=== PATIENT | male | born 1945 | race Caucasian/White ===

== ENCOUNTER 2023-04-24 06:53 | Outpatient (OUT) | payer MEDICARE, SELFPAY ==
[2023-04-24 07:11] LABS: Estimated GFR (African America >60 (>=60); Estimated GFR (Non-African Ame >60 (>=60)
--- NOTE | 2023-04-24 08:40 | CT_ITS ---
[address] [address] Patient Name: JOSE PATEL MRN: [id number] date: 1945 Sex: M Assigned Patient Location: LAB Current Patient Location: LAB Accession/Order Number: [id number] Exam Date: 04/24/2023 08:25 Report Date: 04/24/2023 09:22 At the request of: TOAN MCADAMS Procedure: CT abdomen pelvis w con EXAM: CT abdomen pelvis w con HISTORY: Right Lower Quadrant Pain COMPARISON: None. TECHNIQUE: Axial CT images were obtained of the abdomen and pelvis with intravenous contrast. Multiplanar reconstructions were performed. ABDOMEN/PELVIS FINDINGS: Lower Chest: Emphysematous changes present in the lung bases. There is mild bibasilar atelectasis or scarring. Liver: Normal enhancement and contour. Biliary/Gallbladder: Numerous tiny gallstones are present in the gallbladder lumen. Pancreas: Unremarkable. Spleen: Unremarkable. Adrenal Glands: Unremarkable. Kidneys: Multiple small cysts in the kidneys bilaterally. Gastrointestinal/Peritoneum: No acute abnormality. The appendix is unremarkable. No free air or free fluid. Vascular: Moderate scattered atherosclerotic calcifications are present. Atherosclerotic calcifications at the origin of the right renal artery are likely contributing to moderate stenosis of the renal artery origin. The aortoiliac arteries are ectatic. Lymph Nodes: No enlarged lymph nodes by CT size criteria. Pelvic Organs: The prostate gland is enlarged. Bladder: Unremarkable. Bones: No acute osseous abnormality. Moderate multilevel degenerative changes are present in the visualized spine with a slight levoscoliosis present. Mild degenerative changes are present in the hips bilaterally. Soft tissues: Small bilateral fat-containing inguinal hernias are present. CT/CT abdomen pelvis w con IMPRESSION: 1. No acute abnormality of the abdomen and pelvis. 2. Cholelithiasis. 3. Small fat-containing bilateral inguinal hernias. 4. Prostatomegaly. 5. Moderate scattered atherosclerotic disease with ectasia of the aortoiliac vessels and a moderate stenosis at the origin of the right renal artery. 6. Emphysematous disease in the lung bases. Electronically authenticated by: QING CHAMORRO Date: 04/24/2023 09:22
== END 2023-04-24 06:54 | disposition home or self-care (01) ==
LOC: LAB 06:54
PROVIDERS: PCP Internal Medicine; Visit Provider Internal Medicine
DX: R10.31 Right lower quadrant pain (principal); K80.20 Calculus of gallbladder without cholecystitis without obstruction; K40.20 Bilateral inguinal hernia, without obstruction or gangrene, not specified as recurrent
CPT/HCPCS: 36415; 74177; 82565; Q9967

== ENCOUNTER 2023-05-04 07:08 | Outpatient (OUT) | payer MEDICARE, SELFPAY ==
[2023-05-04 07:35] LABS: Basophils Percent Auto 0.7 % (0.2-2.0); Eosinophils Absolute Auto 0.1 10^3/uL (0.0-0.7); Eosinophils Percent Auto 0.9 % (0.9-7.0); Hemoglobin 14.2 g/dL (14.0-18.0); Immature Granulocytes Abs Auto 0.02 10^3/uL (0.00-0.03); Immature Granulocytes Pct Auto 0.4 % (0.0-0.5); Lymphocytes Absolute Auto 1.3 10^3/uL (1.2-3.8); Lymphocytes Percent Auto 23.7 % (20.5-60.0); Mean Corpuscular Hemoglobin 30.2 pg (25.9-34.0); Mean Corpuscular Volume 91.5 fL (80.0-94.0); Monocytes Absolute Auto 0.5 10^3/uL (0.3-0.8); Neutrophils Absolute Auto 3.6 10^3/uL (1.4-6.5); Neutrophils Percent Auto 65.3 % (43.0-75.0); Platelet Count 170 10^3/uL (150-450); White Blood Count 5.4 10^3/uL (4.0-11.0)
[2023-05-04 09:51] LABS: Alanine Aminotransferase 46 U/L (16-63); Albumin Globulin Ratio 1.3; Albumin Level 3.6 g/dL (3.4-5.0); Alkaline Phosphatase 66 U/L (46-116); Anion Gap 12.1; Aspartate Amino Transferase 28 U/L (15-37); BUN Creatinine Ratio 18.9; Bilirubin Total 1.5 mg/dL (0.2-1.0); Calcium 9.3 mg/dL (8.5-10.1); Carbon Dioxide 25.7 mmol/L (21.0-32.0); Chloride 106 mmol/L (98-107); Estimated GFR (African America >60 (>=60); Estimated GFR (Non-African Ame >60 (>=60); Globulin 2.7 g/dL; Glucose 108 mg/dL (74-106); Potassium 3.8 mmol/L (3.5-5.1); Sodium 140 mmol/L (136-145); Thyroid Stimulating Hormone 2.649 uIU/mL (0.358-3.740); Total Protein 6.3 g/dL (6.4-8.2)
[2023-05-05 17:09] LABS: Albumin 3.9 g/dL (2.9-4.4); Alpha-1-Globulin 0.2 g/dL (0.0-0.4); Alpha-2-Globulin 0.7 g/dL (0.4-1.0); Free Kappa Lt Chains,S 14.1 mg/L (3.3-19.4); Free Lambda Lt Chains,S 13.9 mg/L (5.7-26.3); Gamma Globulin 0.5 g/dL (0.4-1.8); Immunoglobulin A, Qn, Serum 169 mg/dL (61-437); Immunoglobulin G, Qn, Serum 640 mg/dL (603-1613); Immunoglobulin M, Qn, Serum 26 mg/dL (15-143); Kappa/Lambda Ratio,S 1.01 (0.26-1.65); Protein, Total 6.1 g/dL (6.0-8.5)
== END 2023-05-04 07:09 | disposition home or self-care (01) ==
LOC: LAB 07:12
PROVIDERS: PCP Internal Medicine; Visit Provider Internal Medicine
DX: R10.31 Right lower quadrant pain (principal); R63.4 Abnormal weight loss; I10 Essential (primary) hypertension; G62.9 Polyneuropathy, unspecified
CPT/HCPCS: 36415; 80053; 82784; 83521; 84155; 84165; 84443; 85025; 86334

== ENCOUNTER 2023-05-17 22:51 | Emergency (ER) | payer MEDICARE, SELFPAY ==
[2023-05-17 23:05] VITALS: BP 145/82; PULSE 67; RESP 20; TEMP 36.5; O2SAT 98; BMI 23.9
--- NOTE | 2023-05-17 23:13 | ED_ITS ---
HPI - General Adult General Chief complaint: Weakness Stated complaint: General Weakness Time Seen by Provider: 05/17/23 23:07 Source: patient Source information: Mode of arrival: walk-in Limitations: no limitations History of Present Illness HPI narrative: 78-year-old male presents for feeling weak and hot. It began tonight. Eight days ago he tested positive for Covid but he seems to have recovered from it. Tonight as he was getting prepared for bed and he got hot. He didn't have any pain, no headache chest pain or abdominal pain. he did not become pale. Related Data Allergies Allergy/AdvReac Type Severity Reaction Status Date / Time No Known Drug Allergies Allergy Verified 05/17/23 23:12 Review of Systems ROS Narrative A ten point review of systems is negative except as noted above. PFSH PFSH Social History Smoking status: Former smoker Exam Narrative Exam Narrative: Nurses note and vital signs reviewed and patient is not hypoxic. General: The patient appears well and in no apparent distress. Patient is resting comfortably on cart. Skin: Warm, dry, no pallor noted. There is no rash noted. Head: Normocephalic, atraumatic Eye: Normal conjunctiva, no drainage Ears, Nose, Mouth, and Throat: oral mucosa is moist. Nares patent. Mouth without vesicles. Ear canals patent. Tm's without Erythema Cardiovascular: Regular Rate and Rhythm Respiratory: Patient is in no distress, no accessory muscle use, lungs are clear to auscultation, no wheezing, rales or rhonchi Back: non-tender GI: no tenderness to palpation, no masses appreciated. No rebound, guarding, or rigidity noted. Musculoskeletal: The patient has no evidence of calf tenderness, no pitting edema, symmetrical pulses noted bilaterally Neurological: A&O x4, normal speech Psychiatric: Cooperative Constitutional Vital Signs, click to edit/add: Last Vital Signs Temp 97.7 F 05/17/23 23:05 Pulse 86 05/17/23 23:51 Resp 16 05/17/23 23:51 BP 122/82 05/17/23 23:51 Pulse Ox 997 H 05/17/23 23:51 O2 Del Method Room Air 05/17/23 23:51 Course Vital Signs Vital signs: Vital Signs Temperature 97.7 F 05/17/23 23:05 Pulse Rate 67 05/17/23 23:05 Respiratory Rate 20 05/17/23 23:05 Blood Pressure 145/82 H 05/17/23 23:05 Pulse Oximetry 98 05/17/23 23:05 Oxygen Delivery Method Room Air 05/17/23 23:05 Temperature 97.7 F 05/17/23 23:05 Pulse Rate 86 05/17/23 23:51 Respiratory Rate 16 05/17/23 23:51 Blood Pressure 122/82 05/17/23 23:51 Pulse Oximetry 997 H 05/17/23 23:51 Oxygen Delivery Method Room Air 05/17/23 23:51 Medical Decision Making MDM Narrative Medical decision making narrative: laboratory analysis suggests dehydration. He was given IV fluids and feels much better and wants to go home. His workup is otherwise negative. Treatment diagnosis and follow-up were discussed with the patient. Differential Diagnosis Differential Diagnosis: dehydration, urinary tract infection, pneumonia Lab Data Lab results reviewed: Yes I reviewed the patient's lab results Labs: Lab Results 05/17/23 05/17/23 Range/Units 00:10 23:15 WBC 6.9 (4.0-11.0) 10^3/uL RBC 4.57 L (4.70-6.10) 10^6/uL Hgb 13.7 L (14.0-18.0) g/dL Hct 41.2 L (42.0-54.0) % MCV 90.2 (80.0-94.0) fL MCH 30.0 (25.9-34.0) pg MCHC 33.3 (29.9-35.2) g/dL RDW 14.7 (11.0-15.0) % Plt Count 149 L (150-450) 10^3/uL MPV 9.9 (9.5-13.5) fL Neut % (Auto) 62.6 (43.0-75.0) % Lymph % (Auto) 23.9 (20.5-60.0) % [place] % (Auto) 11.3 (1.7-12.0) % Eos % (Auto) 1.6 (0.9-7.0) % Baso % (Auto) 0.3 (0.2-2.0) % Neut # (Auto) 4.3 (1.4-6.5) 10^3/uL Lymph # (Auto) 1.7 (1.2-3.8) 10^3/uL [place] # (Auto) 0.8 (0.3-0.8) 10^3/uL Eos # (Auto) 0.1 (0.0-0.7) 10^3/uL Baso # (Auto) 0.0 (0.0-0.1) 10^3/uL Abs Immat Gran (auto) 0.02 (0.00-0.03) 10^3/uL Imm/Tot Granulo (auto) 0.3 (0.0-0.5) % Sodium 136 (136-145) mmol/L Potassium 4.1 (3.5-5.1) mmol/L Chloride 104 (98-107) mmol/L Carbon Dioxide 26.1 (21.0-32.0) mmol/L Anion Gap 10.0 BUN 26.0 H (7.0-18.0) mg/dL Creatinine 1.05 (0.70-1.30) mg/dL Est GFR ( Amer) >60 (>=60) Est GFR (Non-Af Amer) >60 (>=60) BUN/Creatinine Ratio 24.8 Glucose 85 (74-106) mg/dL Calcium 9.1 (8.5-10.1) mg/dL Troponin I High Sens 14.3 (4.0-76.1) pg/mL Urine Color Yellow (YELLOW) Urine Clarity Clear (CLEAR) Urine pH 6.5 (5.0-9.0) Ur Specific [place] 1.020 (1.005-1.025) Urine Protein Negative (NEG/TRACE) mg/dL Urine Glucose (UA) Negative (NEGATIVE) mg/dL Urine Ketones Negative (NEGATIVE) mg/dL Urine Occult Blood Negative (NEGATIVE) Urine Nitrite Negative (NEGATIVE) Urine Bilirubin Negative (NEGATIVE) Urine Urobilinogen 1.0 (0.2-1.0) EU/dL Ur Leukocyte Esterase Negative (NEGATIVE) Urine RBC None seen (0-2) #/HPF Urine WBC 0-2 A (NONE SEEN) #/HPF Ur Squamous Epith Cells None seen (NONE/RARE) #/LPF Urine Crystals None seen (None Seen) #/HPF Urine Bacteria None seen (NONE SEEN) #/HPF Urine Casts None seen (NONE SEEN) #/LPF Urine Mucus Small A (NONE SEEN) Imaging Data Chest x-ray: Radiologist's impression: Procedure: XR chest 1V EXAMINATION:XR chest 1V INDICATION:weakness COMPARISON:09/14/2022 TECHNIQUE:2 frontal views of the chest are submitted. FINDINGS: The cardiomediastinal silhouette is not enlarged. The pulmonary vascularity is within normal limits. The lungs are clear based on chest radiography. There is no costophrenic angle blunting. IMPRESSION: Unremarkable plain film examination of the chest. Electronically authenticated by: FREDERICK GIBSON Date: 05/18/2023 00:07 Discharge Plan Discharge Chief Complaint: Weakness Clinical Impression: Dehydration Patient Disposition: Home, Self-Care Time of Disposition Decision: 01:24 Condition: Good Mode of Transportation: Private Vehicle Instructions: Dehydration (ED) Stand Alone Forms: Portal Instructions Referrals: Cisco Nicholson DO [Primary Care Provider] - 1 week
--- NOTE | 2023-05-17 23:13 | ECG_ITS ---
The [facility] Test Date: 2023-05-17 Pat Name: JOSE PATEL Department: Room: - Gender: Male Supervisor Shipping: : 1945 Requested By: [id number] Order Number: [id number] Reading MD: TOAN MCADAMS Measurements Intervals [place] Rate: 75 P: 72 RI: 148 QRS: 74 QRSD: 70 T: 43 QT: 362 QTc: 392 Interpretive Statements 1100 Sinus rhythm 1474 with frequent supraventricular premature complexes 3433 Septal myocardial infarction, probably old 9150 abnormal ECG No previous ECG available for comparison Electronically Signed On 05-19-2023 7:03:05 EDT by TOAN MCADAMS
--- NOTE | 2023-05-17 23:13 | XR_ITS ---
The [address] [address] Patient Name: JOSE PATEL MRN: [id number] date: 1945 Sex: M Assigned Patient Location: ER Current Patient Location: ER Accession/Order Number: [id number] Exam Date: 05/17/2023 23:15 Report Date: 05/18/2023 00:07 At the request of: PEGGY BERNSTEIN Procedure: XR chest 1V EXAMINATION:XR chest 1V INDICATION:weakness COMPARISON:09/14/2022 TECHNIQUE:2 frontal views of the chest are submitted. FINDINGS: The cardiomediastinal silhouette is not enlarged. The pulmonary vascularity is within normal limits. The lungs are clear based on chest radiography. There is no costophrenic angle blunting. XR/XR chest 1V IMPRESSION: Unremarkable plain film examination of the chest. Electronically authenticated by: FREDERICK GIBSON Date: 05/18/2023 00:07
[2023-05-17 23:24] LABS: Basophils Percent Auto 0.3 % (0.2-2.0); Eosinophils Absolute Auto 0.1 10^3/uL (0.0-0.7); Eosinophils Percent Auto 1.6 % (0.9-7.0); Hematocrit 41.2 % (42.0-54.0); Hemoglobin 13.7 g/dL (14.0-18.0); Immature Granulocytes Abs Auto 0.02 10^3/uL (0.00-0.03); Immature Granulocytes Pct Auto 0.3 % (0.0-0.5); Lymphocytes Absolute Auto 1.7 10^3/uL (1.2-3.8); Lymphocytes Percent Auto 23.9 % (20.5-60.0); Mean Corpuscular HGB Conc 33.3 g/dL (29.9-35.2); Mean Corpuscular Volume 90.2 fL (80.0-94.0); Mean Platelet Volume 9.9 fL (9.5-13.5); Monocytes Absolute Auto 0.8 10^3/uL (0.3-0.8); Monocytes Percent Auto 11.3 % (1.7-12.0); Neutrophils Absolute Auto 4.3 10^3/uL (1.4-6.5); Neutrophils Percent Auto 62.6 % (43.0-75.0); Platelet Count 149 10^3/uL (150-450); Red Blood Count 4.57 10^6/uL (4.70-6.10); Red Cell Distribution Width 14.7 % (11.0-15.0); White Blood Count 6.9 10^3/uL (4.0-11.0)
[2023-05-17 23:50] LABS: BUN Creatinine Ratio 24.8; Calcium 9.1 mg/dL (8.5-10.1); Carbon Dioxide 26.1 mmol/L (21.0-32.0); Chloride 104 mmol/L (98-107); Estimated GFR (African America >60 (>=60); Estimated GFR (Non-African Ame >60 (>=60); Glucose 85 mg/dL (74-106); Potassium 4.1 mmol/L (3.5-5.1); Sodium 136 mmol/L (136-145); Troponin I High Sensitivity 14.3 pg/mL (4.0-76.1)
[2023-05-17 23:51] VITALS: BP 122/82; PULSE 86; RESP 16; O2SAT 97; O2SAT 997
[2023-05-18 00:24] LABS: Bilirubin Urine NEGATIVE (NEGATIVE); Blood Urine NEGATIVE (NEGATIVE); Clarity Urine CLEAR (CLEAR); Color Urine YELLOW (YELLOW); Glucose Urine UA NEGATIVE (NEGATIVE); Ketones Urine NEGATIVE (NEGATIVE); Leukocyte Esterase Urine NEGATIVE (NEGATIVE); Nitrite Urine NEGATIVE (NEGATIVE); Protein Urine NEGATIVE (NEG/TRACE); pH Urine 6.5 (5.0-9.0)
[2023-05-18 00:36] LABS: Bacteria Urine NONE SEEN #/HPF (NONE SEEN); RBC Urine NONE SEEN #/HPF (0-2); WBC Urine 0-2 #/HPF (NONE SEEN)
[2023-05-18 00:37] LABS: Cast Seen? NONE SEEN #/LPF (NONE SEEN); Crystals Seen? None Seen #/HPF (None Seen); Mucus Urine SMALL (NONE SEEN); Squamous Epithelial Cell Urine NONE SEEN #/LPF (NONE/RARE)
[2023-05-18] MEDS: 0.9 % SODIUM CHLORIDE 500 ML IV (00:48)
== END 2023-05-18 01:38 | disposition home or self-care (01) ==
PROVIDERS: Emergency Provider Emergency Medicine; PCP Internal Medicine
DX: E86.0 Dehydration (principal); Z87.891 Personal history of nicotine dependence; Z86.16 Personal history of COVID-19
CPT/HCPCS: 36415; 71045; 80048; 81001; 84484; 85025; 93005; 99285

== ENCOUNTER 2023-06-08 09:56 | Outpatient (OUT) | payer MEDICARE, SELFPAY | END 2023-06-08 09:57 | disposition home or self-care (01) | LOC: LAB 10:01 | PROVIDERS: PCP Internal Medicine; Visit Provider Internal Medicine | DX: R53.83 Other fatigue (principal) | CPT/HCPCS: 36415; 82607; 82728 ==

== ENCOUNTER 2023-06-19 12:00 | Emergency (ER) | payer MEDICARE, SELFPAY ==
[2023-06-19] VITALS (13 sets, daily range): BP systolic 124–160; BP diastolic 69–77; PULSE 56–71; RESP 13–22; TEMP 36.8; O2SAT 96–100; BMI 26.4
--- NOTE | 2023-06-19 12:07 | XR_ITS ---
The [address] [address] Patient Name: JOSE PATEL MRN: [id number] date: 1945 Sex: M Assigned Patient Location: ER Current Patient Location: ER Accession/Order Number: [id number] Exam Date: 06/19/2023 13:02 Report Date: 06/19/2023 13:33 At the request of: MAY CRONIN Procedure: XR chest 1V EXAM: XR chest 1V at 1258 hours HISTORY: covid . Follow-up study. COMPARISON: 05/17/2023 TECHNIQUE: AP upright portable chest x-ray FINDINGS: The heart is not enlarged and the vasculature is not distended. No acute infiltrate, effusion or pneumothorax is identified. Degenerative changes are seen in the spine. Prior surgery is noted in the left shoulder. XR/XR chest 1V IMPRESSION: No acute infiltrate or evidence of cardiac decompensation. The overall appearance of the chest is unchanged. Electronically authenticated by: MALGORZATA HORTON Date: 06/19/2023 13:33
--- NOTE | 2023-06-19 12:07 | ECG_ITS ---
The [facility] Test Date: 2023-06-19 Pat Name: JOSE PATEL Department: Room: - Gender: Male Lab Courier: : 1945 Requested By: Cisco Nicholson Order Number: [id number] Reading MD: CHARLOTTE AMARO Measurements Intervals [place] Rate: 63 P: -50 CO: 178 QRS: 73 QRSD: 74 T: -56 QT: 386 QTc: 394 Interpretive Statements 1200 Atrial rhythm 1570 with occasional ventricular premature complexes 3433 Septal myocardial infarction, probably old [address] depression 4564 [place] abnormality, possible lateral ischemia 4664 [place] abnormality, possible inferior ischemia 9150 abnormal ECG Compared to ECG 05/17/2023 23:08:18 Electronically Signed On 06-24-2023 6:53:42 EST by CHARLOTTE AMARO
[2023-06-19 12:27] LABS: Basophils Percent Auto 0.2 % (0.2-2.0); Hematocrit 42.3 % (42.0-54.0); Hemoglobin 14.3 g/dL (14.0-18.0); Immature Granulocytes Abs Auto 0.02 10^3/uL (0.00-0.03); Immature Granulocytes Pct Auto 0.4 % (0.0-0.5); Lymphocytes Absolute Auto 0.6 10^3/uL (1.2-3.8); Lymphocytes Percent Auto 12.5 % (20.5-60.0); Mean Corpuscular HGB Conc 33.8 g/dL (29.9-35.2); Mean Corpuscular Hemoglobin 30.4 pg (25.9-34.0); Mean Platelet Volume 9.7 fL (9.5-13.5); Monocytes Absolute Auto 0.5 10^3/uL (0.3-0.8); Monocytes Percent Auto 11.4 % (1.7-12.0); Neutrophils Absolute Auto 3.5 10^3/uL (1.4-6.5); Neutrophils Percent Auto 75.5 % (43.0-75.0); Platelet Count 128 10^3/uL (150-450); Red Cell Distribution Width 14.6 % (11.0-15.0); White Blood Count 4.6 10^3/uL (4.0-11.0)
[2023-06-19 12:43] LABS: Lactate/Lactic Acid 1.2 mmol/L (0.4-2.0)
[2023-06-19 12:44] LABS: INR 0.98; Prothrombin Time 10.4 sec (9.0-11.6)
[2023-06-19 12:50] LABS: Alanine Aminotransferase 43 U/L (16-63); Albumin Globulin Ratio 1.1; Albumin Level 3.7 g/dL (3.4-5.0); Alkaline Phosphatase 63 U/L (46-116); Anion Gap 12.7; Aspartate Amino Transferase 34 U/L (15-37); BUN Creatinine Ratio 15.1; Bilirubin Total 1.2 mg/dL (0.2-1.0); Carbon Dioxide 27.6 mmol/L (21.0-32.0); Chloride 101 mmol/L (98-107); Estimated GFR (African America >60 (>=60); Estimated GFR (Non-African Ame >60 (>=60); Globulin 3.5 g/dL; Glucose 106 mg/dL (74-106); Potassium 4.3 mmol/L (3.5-5.1); Sodium 137 mmol/L (136-145); Total Protein 7.2 g/dL (6.4-8.2); Troponin I High Sensitivity 7.2 pg/mL (4.0-76.1)
--- NOTE | 2023-06-19 12:59 | ED.AMS1 ---
HPI - Altered Mental Status General Chief Complaint: Altered Mental Status Stated Complaint: CONFUSION, COVID + Time Seen by Provider: 06/19/23 12:07 Source: patient and family Mode of arrival: walk-in Limitations: no limitations History of Present Illness HPI narrative: The patient was diagnosed with COVID almost 2 days ago is coming to us accompanied by the after she found him naked when she came home, and he was throwing stuff on the floor the patient upon arrival to the ER did not have any complain he will obtain with no difficulty and is denying any complaint at the moment According to the at the bedside he had been diagnosed with COVID 3 days ago almost and he was started on baclofen yesterday The patient recorded some sore throat no difficulty breathing also have some dry cough Related Data Home Medications Medication Instructions Recorded Confirmed atorvastatin 80 mg tablet 80 mg PO DAILY 06/19/23 06/19/23 buspirone 15 mg tablet 15 mg PO BID 06/19/23 06/19/23 gabapentin 300 mg capsule 300 mg PO QID 06/19/23 06/19/23 metoprolol tartrate 25 mg tablet 25 mg PO DAILY 06/19/23 06/19/23 temazepam 15 mg capsule 15 mg PO DAILY 06/19/23 06/19/23 Allergies Allergy/AdvReac Type Severity Reaction Status Date / Time No Known Drug Allergies Allergy Verified 06/19/23 12:14 Review of Systems ROS Status of ROS 10 or more systems reviewed and unremarkable except as noted in history and below [facility] Medical History (Updated 06/19/23 @ 14:25 by Anjelica Long MD) COVID-19 ?U07.1 - COVID-19 (ICD-10) High cholesterol ?E78.00 - Pure hypercholesterolemia, unspecified (ICD-10) Hypertension ?I10 - Essential (primary) hypertension (ICD-10) Social History Smoking status: Former smoker Exam Narrative Exam Narrative: Nurses notes and vital signs reviewed and patient is not hypoxic. General: Well-appearing and in no apparent distress. Skin: Warm, dry, no pallor noted. No rash. Head: Normocephalic, atraumatic. Neck: Supple, non-tender. Eye: Pupils are equal, round and EOMI. No scleral icterus. Ears, Nose, Mouth, and Throat: TM are clear, no nasal mucosal hypertrophy. Oral mucosa is moist, no posterior oropharynx erythema, uvula is mid-line Cardiovascular: Regular Rate and Rhythm without murmur, gallop or rub. Respiratory: No accessory muscle use or respiratory distress. Lungs are clear to auscultation, no wheezing, rales or rhonchi Chest Wall: no tenderness Back: No midline thoracic or lumbar vertebral tenderness. No CVA tenderness Musculoskeletal: normal ROM, no calf or popliteal tenderness, no lower extremity edema/swelling GI: Abdomen is soft, non-distended. Normal bowel sounds. No masses appreciated. No tenderness to palpation. No rebound, guarding, or rigidity noted. Neurological: A&O x2. No cranial nerve dysfunction observed. No truncal ataxia. Moves all extremities. Sensation intact. Psychiatric: Cooperative and interactive. Normal mood and affect. Constitutional Vital Signs, click to edit/add: Last Vital Signs Temp 98.2 F 06/19/23 12:08 Pulse 60 06/19/23 13:40 Resp 17 06/19/23 13:40 BP 130/70 06/19/23 13:30 Pulse Ox 96 06/19/23 13:40 O2 Del Method Room Air 06/19/23 12:29 Course Vital Signs Vital signs: Vital Signs Temperature 98.2 F 06/19/23 12:08 Pulse Rate 58 L 06/19/23 12:08 Respiratory Rate 16 06/19/23 12:08 Blood Pressure 160/77 H 06/19/23 12:08 Pulse Oximetry 100 06/19/23 12:08 Oxygen Delivery Method Room Air 06/19/23 12:08 Temperature 98.2 F 06/19/23 12:08 Pulse Rate 60 06/19/23 13:40 Respiratory Rate 17 06/19/23 13:40 Blood Pressure 130/70 06/19/23 13:30 Pulse Oximetry 96 06/19/23 13:40 Oxygen Delivery Method Room Air 06/19/23 12:29 MDM - Altered Mental Status MDM Narrative Medical decision making narrative: EKG showing atrial rhythm with a heart rate of [address] elevation or depression ,sinus The patient CBC and chemistry showed no acute significant pathology the CT of the head as well shows no acute pathology with negative urinalysis The patient was completely oriented x3 with no complaint in the ER the at the bedside instructed about stopping the Paxil with right now and since the patient had a reaction within the first time as well to stop taking it and inform his primary care Meanwhile continue supportive care and in case of any new symptoms or concern he is to be brought back to the ER The patient is to follow up with primary care physician in next 2-3 days or to return to the emergency department should any of the signs or symptoms worsen or new symptoms develop. The patient agrees with the following Diagnosis and Treatment plan and the patient will be discharged home. Lab Data Labs: Lab Results 06/19/23 06/19/23 Range/Units 12:15 13:53 WBC 4.6 (4.0-11.0) 10^3/uL RBC 4.70 (4.70-6.10) 10^6/uL Hgb 14.3 (14.0-18.0) g/dL Hct 42.3 (42.0-54.0) % MCV 90.0 (80.0-94.0) fL MCH 30.4 (25.9-34.0) pg MCHC 33.8 (29.9-35.2) g/dL RDW 14.6 (11.0-15.0) % Plt Count 128 L (150-450) 10^3/uL MPV 9.7 (9.5-13.5) fL Neut % (Auto) 75.5 H (43.0-75.0) % Lymph % (Auto) 12.5 L (20.5-60.0) % [place] % (Auto) 11.4 (1.7-12.0) % Eos % (Auto) 0.0 L (0.9-7.0) % Baso % (Auto) 0.2 (0.2-2.0) % Neut # (Auto) 3.5 (1.4-6.5) 10^3/uL Lymph # (Auto) 0.6 L (1.2-3.8) 10^3/uL [place] # (Auto) 0.5 (0.3-0.8) 10^3/uL Eos # (Auto) 0.0 (0.0-0.7) 10^3/uL Baso # (Auto) 0.0 (0.0-0.1) 10^3/uL Abs Immat Gran (auto) 0.02 (0.00-0.03) 10^3/uL Imm/Tot Granulo (auto) 0.4 (0.0-0.5) % PT 10.4 (9.0-11.6) sec INR 0.98 Sodium 137 (136-145) mmol/L Potassium 4.3 (3.5-5.1) mmol/L Chloride 101 (98-107) mmol/L Carbon Dioxide 27.6 (21.0-32.0) mmol/L Anion Gap 12.7 BUN 14.0 (7.0-18.0) mg/dL Creatinine 0.93 (0.70-1.30) mg/dL Est GFR ( Amer) >60 (>=60) Est GFR (Non-Af Amer) >60 (>=60) BUN/Creatinine Ratio 15.1 Glucose 106 (74-106) mg/dL Lactate 1.2 (0.4-2.0) mmol/L Calcium 9.0 (8.5-10.1) mg/dL Total Bilirubin 1.2 H (0.2-1.0) mg/dL AST 34 (15-37) U/L ALT 43 (16-63) U/L Alkaline Phosphatase 63 (46-116) U/L Troponin I High Sens 7.2 (4.0-76.1) pg/mL Total Protein 7.2 (6.4-8.2) g/dL Albumin 3.7 (3.4-5.0) g/dL Globulin 3.5 g/dL Albumin/Globulin Ratio 1.1 Urine Color Lt. yellow (YELLOW) Urine Clarity Clear (CLEAR) Urine pH 5.5 (5.0-9.0) Ur Specific [place] 1.020 (1.005-1.025) Urine Protein Negative (NEG/TRACE) mg/dL Urine Glucose (UA) Negative (NEGATIVE) mg/dL Urine Ketones Negative (NEGATIVE) mg/dL Urine Occult Blood Negative (NEGATIVE) Urine Nitrite Negative (NEGATIVE) Urine Bilirubin Negative (NEGATIVE) Urine Urobilinogen 0.2 (0.2-1.0) EU/dL Ur Leukocyte Esterase Negative (NEGATIVE) Discharge Plan Discharge Chief Complaint: Altered Mental Status Clinical Impression: COVID-19 Patient Disposition: Home, Self-Care Time of Disposition Decision: 14:24 Prescriptions / Home Meds: Discontinued Paxlovid 300 mg (150 mg x 2)-100 mg tablets,dose pack PO DAILY No Action atorvastatin 80 mg tablet 80 mg PO DAILY buspirone 15 mg tablet 15 mg PO BID gabapentin 300 mg capsule 300 mg PO QID metoprolol tartrate 25 mg tablet 25 mg PO DAILY temazepam 15 mg capsule 15 mg PO DAILY Instructions: COVID-19 (Coronavirus Disease 2019) (ED) Stand Alone Forms: Portal Instructions Referrals: Cisco Nicholson DO [Primary Care Provider] - 1 week Discharge Date/Time: 06/19/23 14:38
--- NOTE | 2023-06-19 13:22 | CT_ITS ---
The [address] [address] Patient Name: JOSE PATEL MRN: [id number] date: 1945 Sex: M Assigned Patient Location: ER Current Patient Location: ER Accession/Order Number: [id number] Exam Date: 06/19/2023 13:12 Report Date: 06/19/2023 13:46 At the request of: MAY CRONIN Procedure: CT head/brain wo con EXAM: CT head/brain wo con HISTORY: Altered mental status. COMPARISON: None. TECHNIQUE: Contiguous transaxial images were obtained from skull base to vertex without administration of intravenous contrast. Dose reduction: mA and/or kV are were adjusted by automated exposure control software based upon patients height and weight. FINDINGS: There is no focal scalp soft tissue swelling or acute calvarial fracture. The visualized globes and orbits are grossly normal for age. There is a small right maxillary sinus air-fluid level. There is paranasal sinus mucosal thickening.. Bilateral mastoid air cells are clear. The ventricles and sulci are prominent bilaterally. There is periventricular and deep subcortical white matter low-attenuation consistent with small vessel ischemic disease. There is no intraparenchymal hemorrhage, extraaxial fluid collection, mass lesion, or acute large territory ischemia by noncontrast CT. CT/CT head/brain wo con IMPRESSION: 1. No acute intraparenchymal hemorrhage or acute large territory ischemia by noncontrast CT. 2. 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 3. Small right maxillary sinus air-fluid level. The absence of acute facial trauma, such findings can be seen in the setting of acute sinusitis. If the patient has a focal neurologic deficit or there is clinical suspicion for acute cerebrovascular accident, brain MRI would be recommended for further evaluation. Electronically authenticated by: ANGELY KENNEDY Date: 06/19/2023 13:46
[2023-06-19 14:16] LABS: Bilirubin Urine NEGATIVE (NEGATIVE); Blood Urine NEGATIVE (NEGATIVE); Clarity Urine CLEAR (CLEAR); Color Urine LT. YELLOW (YELLOW); Glucose Urine UA NEGATIVE (NEGATIVE); Ketones Urine NEGATIVE (NEGATIVE); Leukocyte Esterase Urine NEGATIVE (NEGATIVE); Nitrite Urine NEGATIVE (NEGATIVE); Protein Urine NEGATIVE (NEG/TRACE); Urine Microscopic Indicated NO; Urobilinogen Urine 0.2 EU/dL (0.2-1.0); pH Urine 5.5 (5.0-9.0)
== END 2023-06-19 14:38 | disposition home or self-care (01) ==
PROVIDERS: Emergency Provider Emergency Medicine; PCP Internal Medicine
DX: U07.1 COVID-19 (principal); Z79.899 Other long term (current) drug therapy; E78.00 Pure hypercholesterolemia, unspecified; I10 Essential (primary) hypertension; Z87.891 Personal history of nicotine dependence
CPT/HCPCS: 36415; 70450; 71045; 80053; 81003; 83605; 84484; 85025; 85610; 93005; 99285

== ENCOUNTER 2023-08-07 09:31 | Outpatient (OUT) | payer MEDICARE, SELFPAY ==
--- NOTE | 2023-08-07 09:47 | XR_ITS ---
The [address] [address] Patient Name: JOSE PATEL MRN: [id number] date: 1945 Sex: M Assigned Patient Location: [facility] Current Patient Location: [facility] Accession/Order Number: [id number] Exam Date: 08/07/2023 10:40 Report Date: 08/07/2023 11:14 At the request of: ANGELY GAGE Procedure: XR chest 2V EXAM: XR chest 2V HISTORY: Preop exam COMPARISON: None. TECHNIQUE: PA and lateral views of the chest. FINDINGS: The cardiomediastinal silhouette is normal. No focal consolidation is identified. There is no pneumothorax. No pleural effusion is noted. The osseous structures are intact. XR/XR chest 2V IMPRESSION: No acute cardiopulmonary process. Electronically authenticated by: DAISHA PATEL Date: 08/07/2023 11:14
== END 2023-08-07 09:32 | disposition home or self-care (01) ==
LOC: PST 09:31
PROVIDERS: PCP Internal Medicine; Visit Provider Surgery
DX: Z01.810 Encounter for preprocedural cardiovascular examination (principal); K40.90 Unilateral inguinal hernia, without obstruction or gangrene, not specified as recurrent
CPT/HCPCS: 71046

== ENCOUNTER 2023-08-19 08:29 | Day surgery (SDC) | payer MEDICARE, SELFPAY ==
[2023-08-07 10:35] VITALS: BP 137/69; PULSE 55; RESP 18; TEMP 36.3; O2SAT 99; BMI 23.6
[2023-08-19] VITALS (12 sets, daily range): BP systolic 105–151; BP diastolic 67–90; PULSE 46–73; RESP 9–18; TEMP 35.9–36.4; O2SAT 95–100
--- NOTE | 2023-08-19 | OP_ITS ---
OPERATION DATE: 08/19/2023 PREOPERATIVE DIAGNOSIS: Left inguinal hernia, reducible. POSTOPERATIVE DIAGNOSIS: Indirect and direct left inguinal hernia. PROCEDURE: Left inguinal herniorrhaphy with Bard 5 x 10 cm mesh insertion. SURGEON: Nam Ocampo M.D. ANESTHESIA: General with laryngeal mask airway as well as left sided TAP block. ESTIMATED BLOOD LOSS: Less than 10 mL. INDICATIONS AND CONSENT: Patient is an 78-year-old male with a history of enlarging, symptomatic, reducible left inguinal hernia. Indications, risks, benefits, alternatives of proceeding with herniorrhaphy with mesh insertion were explained extensively to the patient, including the risks of bleeding, infection, scarring, pain, recurrence, nerve injury, testicular injury, blood clot, pulmonary embolus, heart attack, anesthetic complications, need for further surgery or mesh removal. All of his questions were answered. Informed consent was obtained. PROCEDURE: Patient brought to the operating room, placed in the supine position. General anesthesia was induced. Left sided TAP block was performed. Patient was prepped and draped in the usual sterile fashion. A left groin incision was made with the scalpel blade and carried down through subcutaneous tissue using sharp dissection as well as electrocautery. Nilesh?s fascia was divided. The external oblique which was attenuated was opened along the dorsum of its fibers, down through the external inguinal ring. Cord structures were mobilized and retracted with a Shruti drain. There was noted to be an indirect sac, as well as a small direct sac. The indirect sac was freed up from the cord structures, all the way up to the internal ring. A high ligation was performed with a 3-0 Vicryl suture. Indirect sac was freed up and reduced. The floor was then imbricated with interrupted 2-0 Prolene sutures. There was good hemostasis. The wound was irrigated with antibiotic saline. The Bard 5 x 10 cm mesh was trimmed and a keyhole was created. It was placed in the floor of the inguinal canal. The arms were placed around the cord structures and secured. The wound was irrigated with antibiotic saline. There was good hemostasis. Care was taken to avoid undo tension on the cord structures. Once this was complete, the external oblique was closed with a running 3-0 Vicryl suture. Nilesh?s fascia was re-approximated with interrupted 3-0 Monocryl suture. The skin was then closed with a running 4-0 subcuticular Monocryl suture and skin glue. Sterile pressure dressing was applied. Sponge and needle counts were correct x2 per nursing personnel. Patient tolerated procedure well, was extubated and sent to recovery room in good condition. CC: Dr. Juan IRWIN
--- OUTSIDE RECORDS SUMMARY | 2023-08-19 08:51 | XMS_ITS | CCD ---
Author Name Unknown Address [address] [place] [address] Organization [facility] Care Team Providers Care Parking Ramp Attendant Name Role Phone MD Alek Oliva Attending Provider [phone] DO Cisco Nicholson Primary Care Provider MIGUEL ANGEL SLAUGHTER Attending Unavailable ANN-MARIE, MIGUEL ANGEL Admitting Unavailable MIGUEL ANGEL SLAUGHTER Consulting Unavailable ABBE, DR JOYA Primary Care Unavailable ABBE, DR JOYA Primary Care Unavailable ABBE, DR JOYA Consulting Unavailable ABBE, DR JOYA Attending Unavailable ABBE, DR JOYA Admitting Unavailable ABBE, DR JOYA Primary Care Unavailable ABBE, DR JOYA Consulting Unavailable ABBE, DR JOYA Attending Unavailable ABBE, DR JOYA Admitting Unavailable SARAHI, DR EVGENY Simons Consulting Unavailable ABBE, DR JOYA Primary Care Unavailable ABBE, DR JOYA Consulting Unavailable ABBE, DR JOYA Attending Unavailable ABBE, DR JOYA Admitting Unavailable MARY, DR BERHANE Garcia Consulting Unavailable ABBE, DR JOYA Primary Care Unavailable MAU, MICHAEL Attending Unavailable MAU, MICHAEL Admitting Unavailable MARY, DR BERHANE Garcia Consulting Unavailable BRETT, FABRICE Consulting Unavailable MAU, MICHAEL Consulting Unavailable ABBE, DR JOYA Primary Care Unavailable SONG, DR DAISHA Garcia Attending Unavailable SONG, DR DAISHA Garcia Admitting Unavailable SONG, DR DAISHA Garcia Consulting Unavailable SARAHI, DR EVGENY Simons Consulting Unavailable PAY, DR MERCEDES Consulting Unavailable RODOLFO, ANGELY Consulting Unavailable ABBE, DR JOYA Primary Care Unavailable VALENTE, DR GUSMAN Attending Unavailable VALENTE, DR GUSMAN Admitting Unavailable VALENTE, DR GUSMAN Consulting Unavailable BRENT, ANGELY Consulting Unavailable ITKIN, PASTORA Consulting Unavailable SONG, DR DAISHA Garcia Attending Unavailable SONG, DR DAISHA Garcia Admitting Unavailable CHOCO, KATHI CORNELL Consulting Unavailable ABBE, DR JOYA Primary Care Unavailable Abbe, Cisco Unavailable Maryjane Christensen Unavailable Stalin Desai Unavailable MD Maryjane Christensen Attending Provider [phone] ZEV PRIETO Attending Unavailable Dr. Cisco Nicholson Primary Care Dr. Cisco Ivey Primary Care DO Cisco Ivey Primary Care Provider DO Alejo Lynn Emergency Provider MD Bobo Villagomez Admit Provider MD Bobo Villagomez Attending Provider MD Berhane Trammell Other Provider DO Cisco Nicholson Primary Care Provider [phone] MD Sandoval Palacios Jr Emergency Provider MD Warren Quiroz Admit Provider MD Warren Quiroz Attending Provider [phone] Cisco Nicholson Primary [facility] Unavailable Asamallory, Imad Admitting Unavailable Maryjane Christensen Attending Unavailable Cisco Nicholson Primary Care Unavailable Angely Lee Attending Unavailable Bobo Villagomez Admitting Unavailable Berhane Trammell Consulting Unavailable Berhane Trammell Consulting Unavailable Cisco Nicholson Primary Care Unavailable Warren Quiroz Admitting Unavailable Maren Petersen Attending Unavailable Cisco Nicholson Primary Care Unavailable PjDandre bustillosn Admitting Unavailable Dandre Olivan Attending Unavailable CISCO NICHOLSON Primary Care Physician Angely OCAMPO Attending Unavailable CISCO NICHOLSON Referring Unavailable Allergies Allergy Classification Reported Allergen(s) Allergy Type Date of Onset Reaction(s) Facility (2 sources) Ritonavir; Translations: [ritonavir] Drug Allergy [address] [place] [address] (2 sources) nirmatrelvir; Translations: [nirmatrelvir] Propensity to adverse reactions [address] [place] [address] (1 source) No Known Medication Allergies; Translations: [No Known Medication Allergies] Propensity to adverse reactions (disorder) [facility] Repository Medications Current Medications Medication Drug Class(es) Dates Sig (Normalized) Sig (Original) aspirin 81 mg delayed release oral tablet (20 sources) Platelet Aggregation Inhibitor, Nonsteroidal Anti-inflammatory Drug Start: 07-14-2023 take 1 tablet by mouth once daily aspirin 81 mg Oral EC Tab 81 mg = 1 tab(s), Oral, Daily, Refills(s) 0 Start Date: 07/14/23 Status: Ordered Start: 03-01-2023 take 81 mg by mouth once daily Aspirin Active 81 MG PO Daily March 01, 2023 12:00am Baby Aspirin Act karen atorvastatin 80 mg oral tablet (20 sources) HMG-CoA Reductase Inhibitor Start: 08-25-2022 take 1 tablet by mouth once daily atorvastatin 80 mg Tab 80 mg = 1 tab(s), Oral, Daily, Refills(s) 0 Start Date: 08/25/22 Status: Ordered Atorvastatin Sandor cium Active bimatoprost 0.1 mg/ml ophthalmic solution (20 sources) Prostaglandin Analog Start: 03-01-2023 take 1 drop(s) into the eye(s) once daily Bimatoprost Active 1 DROPS EYE-BOTH Daily March 01, 2023 12:00am Bimatoprost Acti ve Bismuth (2 sources) Start: 09-03-2022 take 2 tablets by mouth four times daily Bismuth 262 MG 2 tablets Orally Four times a day for 14 days Aug, Active bismuth subsalicylate 262 mg chewable tablet (20 sources) Bismuth Start: 09-03-2022 take 2 tablets by mouth every six hours Bismuth 262 MG 2 tablets Orally Four times a day for 14 days Aug, Active brimonidine tartrate 2 mg/ml / brinzolamide 10 mg/ml ophthalmic suspension (3 sources) Carbonic Anhydrase Inhibitor, alpha-Adrenergic Agonist Start: 07-28-2023 take 1 drop(s) into the eye(s) twice daily Simbrinza 0.2%-1% ophthalmic suspension 1 drop(s), Eye-Both, BID, Refill(s) 0 Start Date: 07/28/23 Status: Ordered Start: 03-01-2023 take 1 drop(s) into the eye(s) twice daily Brinzolamide-Brimonidine Active 1 DROPS EYE-BOTH Twice daily March 01, 2023 12:00am brinzolamide (20 sources) Carbonic Anhydrase Inhibitor Brinzolamide Active irbesartan (20 sources) Angiotensin 2 Receptor Zachary Irbesartan Active latanoprost 0.05 mg/ml ophthalmic solution (5 sources) Prostaglandin Analog Start: 07-28-2023 latanoprost Opth 0.005% Nisa 1 drop(s), OPTH, Once a day (at bedtime), 2.5 mL, Refill(s) 0 Start Date: 07/28/23 Status: Ordered Start: 08-25-2022 End: 03-01-2023 Latanoprost Discontinued 1 D ROPS EYE-BOTH As Directed August 25, 2022 1:00am March 01, 2023 9:05am metoprolol tartrate 25 mg oral tablet (20 sources) beta-Adrenergic Zachary Start: 08-25-2022 take 25 mg by mouth once daily Metoprolol Tartrate Active 25 MG PO Daily August 25, 2022 1:00am Start: 08-18-2022 take 1 tablet by kelly th every twelve hours Metoprolol Tartrate 25 MG 1 tablet with food Orally Twice a day Aug, Active Multivitamin preparation (3 sources) Start: 07-28-2023 take 1 tablet by mouth once daily multivitamin 1 tab(s), Oral, Daily, Refill(s) 0 Start Date: 07/28/23 Status: Ordered Start: 03-01-2023 take 1 tablet by kelly th once daily Multivitamin Active 1 TAB PO Daily March 01, 2023 12:00am Nirmatrelvir-Ritonavir (1 source) Start: 06-20-2023 Nirmatrelvir-Ritonavir (Paxlovid) 300 mg (150 mg x 2)-100 mg tablets,dose pack Active TAB PO June 20, 2023 12:00am pantoprazole 40 mg delayed release oral tablet (20 sources) Proton Pump Inhibitor Start: 09-03-2022 take 1 tablet by mouth twice daily Pantoprazole Sodium 40 MG 1 tablet Orally twice daily Aug, Active Start: 08-27-2022 take 1 tablet by kelly th every twenty-four hours Pantoprazole Sodium 40 MG 1 tablet Orally Once a day Aug, Not-Taking Ranitidine & Diet Manage Prod (20 sources) Ranitidine & t Manage Prod Active temazepam 15 mg oral capsule (20 sources) Benzodiazepine Start: 08-19-2022 Temazepam 15 MG 1 Orally daily at HS for 90 days Feb, Active Temazepam Active tetracycline hydrochloride 500 mg oral capsule (20 sources) Tetracycline-class Antimicrobial Start: 09-03-2022 take 1 capsule by mouth four times daily Tetracycline HCl 500 MG 1 capsule on an empty stomach Orally 4 TIMES DAILY for 14 days Aug, Active {20 (nirmatrelvir 150 MG Oral Tablet) / 10 (ritonavir 100 MG Oral Tablet) } Pack [Paxlovid 5-Day] (6 sources) take 3 tablets by mouth every twelve hours Paxlovid (300/100) 20 x 150 MG & 10 x 100MG 3 tablets Orally Twice a day for 5 days Active Completed/Discontinued Medications Medication Drug Class(es) Dates Sig (Normalized) Sig (Original) bacitracin 0.5 unt/mg topical ointment (10 sources) Start: 03-19-2019 Bacitracin 500 UNIT/GM 1 application Ophthalmic Once a day for 14 days Mar, Not-Taking Bacitracin 500 UNIT/GM (20 sources) Start: 03-19-2019 Bacitracin 500 UNIT/GM 1 application Ophthalmic Once a day for 14 days Mar, Not-Taking Start: 03-19-2019 Bacitracin 500 UNIT/GM 1 application Ophthalmic Once a day for 14 days Mar, Active busPIRone hydrochloride 15 m g oral tablet (20 sources) Start: 08-25-2022 busPIRone 15 m g Tab 15 mg = 1 tab(s), Oral, BID, Oral, 0 Refill(s), Refills(s) 0 Start Date: 08/25/22 Status: Ordered Start: 08-25-2022 End: 03-01-2023 take 15 mg by mouth once daily Buspirone Discontinued 15 MG PO Daily August 25, 2022 1:00am March 01, 2023 9:05am busPIRone HCl Ac tive cephalexin 500 mg oral capsule (20 sources) Cephalosporin Antibacterial Start: 11-21-2022 take 1 capsule by mouth twice daily Cephalexin 500 MG 1 capsule Orally twice daily for 5 days Nov, Not-Taking Start: 03-19-2019 take 1 capsule by [facility] every eight hours Cephalexin 500 MG 1 capsule Orally tid for 5 day(s) Mar, Not-Taking gabapentin 300 mg oral capsule (20 sources) Anti-epileptic Agent Start: 08-25-2022 gabapenti n 300 mg Cap 300 mg = 1 cap(s), Oral, QID, Oral, 0 Refill(s), Refills(s) 0 Start Date: 08/25/22 Status: Ordered Start: 08-25-2022 End: 03-02-2023 take 300 mg by mouth three times daily Gabapentin Discontinued 300 MG PO Three times daily August 25, 2022 1:00am March 02, 2023 5:25pm Gabapentin Activ e metroNIDAZOLE 250 mg oral tablet (20 sources) Nitroimidazole Antimicrobial Start: 09-03-2022 End: 03-02-2023 take 250 mg by mouth four times daily Metronidazole Discontinued 250 MG PO Four times daily March 01, 2023 12:00am March 02, 2023 5:23pm Problems Active Problems Problem Classification Problem Date Documented Da te Episodic/Chronic Abdominal hernia (4 sources) Unilateral inguinal hernia, without obstruction or gangrene, not specified as recurrent; Translations: [Inguinal hernia] Onset: 07-28-2023 Episodic Abdominal pain (2 sources) Right lower quadrant pain Episodic Anxiety disorders (20 sources) Generalized anxiety disorder; Translations: [Generalized anxiety disorder] Chronic Biliary tract disease (14 sources) Cholelithiasis without obstruction; Translations: [Calculus of gallbladder without cholecystitis without obstruction] Episodic Blindness and vision defects (10 sources) Other visual disturbances; Translations: [Visual hallucinations] Onset: 08-02-2022 Episodic Cataract (4 sources) Age-related nuclear cataract, right eye; Translations: [AGE-REL NUCLEAR CATARACT RT EYE] Onset: 03-20-2022 Chronic Chronic obstructive pulmonary disease and bronchiectasis (2 sources) Emphysema, unspecified; Translations: [Pulmonary emphysema] Onset: 07-02-2022 07-14-2023 Chronic Conditions associated with dizziness or vertigo (4 sources) Dizziness and giddiness; Translations: [DIZZINESS AND GIDDINESS] Onset: 09-14-2022 Episodic Coronary atherosclerosis and other heart disease (2 sources) Atherosclerotic heart disease of [place] coronary artery without angina pectoris; Translations: [Atherosclerotic heart disease of [place] coronary artery without angina pectoris] Onset: 11-26-2022 Chronic Crushing injury or internal injury (1 source) Traumatic pneumothorax, initial encounter; Translations: [TRAUMATIC PNEUMOTHORAX INITIAL ENC] Onset: 07-01-2022 Episodic Disorders of lipid metabolism (20 sources) Pure hypercholesterolemia, unspecified; Translations: [Familial hypercholesterolemia] Onset: 08-02-2022 Chronic E Codes: Adverse effects of medical drugs (3 sources) Adverse reaction to drug; Translations: [Adverse effect of unspecified drugs, medicaments and biological substances, initial encounter] Onset: 06-20-2023 06-20-2023 Episodic E Codes: Fall (2 sources) Fall in (into) shower or empty bathtub, subsequent encounter; Translations: [Fall in (into) shower or empty bathtub, initial encounter] Onset: 07-01-2022 Episodic Esophageal disorders (20 sources) Gastro-esophageal reflux disease with esophagitis; Translations: [Gastroesophageal reflux disease with esophagitis without hemorrhage] 07-14-2023 Chronic Essential hypertension (20 sources) Essential (primary) hypertension; Translations: [Essential hypertension] Onset: 09-16-2022 Chronic Glaucoma (2 sources) Primary open-angle glaucoma, right eye, moderate stage; Translations: [Glaucoma] Onset: 03-25-2022 07-14-2023 Chronic Intestinal infection (20 sources) Infection caused by Helicobacter pylori; Translations: [Other specified bacterial intestinal infections] Episodic Malaise and fatigue (1 source) Other fatigue Episodic Miscellaneous mental health disorders (20 sources) Primary insomnia; Translations: [Primary insomnia] Chronic Open wounds of extremities (5 sources) Laceration without foreign body of left ring finger without damage to nail, initial encounter; Translations: [Laceration without foreign body of left elbow, initial encounter] Onset: 03-28-2022 Episodic Other aftercare (1 source) Other terminal carman (current) drug therapy; Translations: [OTH PRESSROOM FOREMAN CURRENT DRUG THERAPY] Onset: 09-16-2022 Episodic Other aftercare (1 source) buttermaker helper (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; Translations: [PRESSROOM FOREMAN CURRENT USE OF ASPIRIN] Onset: 09-16-2022 Episodic Other and ill-defined cerebrovascular disease (1 source) Cerebral atherosclerosis; Translations: [Cerebral atherosclerosis] Chronic Other and ill-defined cerebrovascular disease (1 source) Cerebral atherosclerosis Chronic Other and unspecified benign neoplasm (20 sources) Adenomatous polyp of colon ; Translations: [Benign neoplasm of descending colon] 07-14-2023 Episodic Other connective tissue disease (2 sources) Pain in lower limb; Translations: [Pain in right leg] 03-01-2023 Episodic Other fractures (1 source) Multiple fractures of ribs, right side, subsequent encounter for fracture with routine healing; Translations: [MX FX RIBS RT SIDE SUBSQT FX RTN] Onset: 07-02-2022 Episodic Other fractures (1 source) Multiple fractures of ribs, right side, initial encounter for closed fracture; Translations: [MX FX RIBS RT SIDE INITIAL CLOS FX] Onset: 07-01-2022 Episodic Other gastrointestinal disorders (17 sources) Irritable bowel syndrome; Translations: [Irritable bowel syndrome without diarrhea] Chronic Other gastrointestinal disorders (1 source) Irritable bowel syndrome without diarrhea Chronic Other gastrointestinal disorders (13 sources) Irritable bowel syndrome characterized by constipation; Translations: [Irritable bowel syndrome with constipation] 07-14-2023 Chronic Other gastrointestinal disorders (1 source) Irritable bowel syndrome with constipation Chronic Other hereditary and degenerative nervous system conditions (7 sources) Impaired cognition; Translations: [Mild cognitive impairment, so stated] Chronic Other hereditary and degenerative nervous system conditions (2 sources) Mild cognitive impairment, so stated; Translations: [Mild cognitive impairment of uncertain or unknown etiology] Onset: 06-20-2023 Chronic Other infections; including parasitic (1 source) Personal history of other infectious and parasitic diseases Episodic Other lower respiratory disease (3 sources) Pleurodynia; Translations: [PLEURODYNIA] Onset: 07-01-2022 Episodic Other nervous system disorders (20 sources) Polyneuropathy; Translations: [Polyneuropathy, unspecified] Chronic Other nervous system disorders (13 sources) Polyneuropathy, unspecified; Translations: [Mononeuritis of unspecified site] Onset: 06-20-2023 Chronic Other nervous system disorders (2 sources) Neuropathy; Translations: [Polyneuropathy, unspecified] Onset: 06-20-2023 06-20-2023 Chronic Other nervous system disorders (1 source) Metabolic encephalopathy; Translations: [Metabolic encephalopathy] Chronic Other nervous system disorders (1 source) Metabolic encephalopathy Chronic Other nervous system disorders (1 source) Disorder of brain 07-14-2023 Chronic Other nervous system disorders (4 sources) Other disturbances of skin sensation; Translations: [OTHER DISTURBANCES SKIN SENSATION] Onset: 07-28-2022 Episodic Other nervous system disorders (2 sources) Numbness of hand; Translations: [Anesthesia of skin] 03-01-2023 Episodic Other nervous system disorders (1 source) Unsteadiness on feet; Translations: [Unsteadiness on feet] Onset: 06-20-2023 Episodic Other nutritional; endocrine; and metabolic disorders (3 sources) Abnormal weight loss; Translations: [ABNORMAL WEIGHT LOSS] Onset: 05-05-2022 Episodic Other nutritional; endocrine; and metabolic disorders (20 sources) Weight loss; Translations: [Abnormal weight loss] Episodic Other nutritional; endocrine; and metabolic disorders (20 sources) Loss of appetite; Translations: [Anorexia] Episodic Other screening for suspected conditions (not mental disorders or infectious disease) (1 source) Encounter for screening for malignant neoplasm of prostate; Translations: [ENC SCREEN MALIG NEOPLASM PROSTATE] Onset: 08-02-2022 Episodic Pleurisy; pneumothorax; pulmonary collapse (1 source) Pleural effusion, not elsewhere classified; Translations: [PLEURAL EFFUSION NEC] Onset: 07-02-2022 Episodic Residual codes; unclassified (1 source) Disorientation, unspecified Episodic Residual codes; unclassified (1 source) Altered mental status; Translations: [Altered mental status, unspecified] 06-20-2023 Episodic Residual codes; unclassified (2 sources) Altered mental status, unspecified; Translations: [Altered mental status] Onset: 06-20-2023 06-20-2023 Episodic Screening and history of mental health and substance abuse codes (1 source) Personal history of nicotine dependence; Translations: [PERSONAL HISTORY OF NICOTINE DEPEND] Onset: 09-16-2022 Episodic Substance-related disorders (20 sources) Nicotine dependence, cigarettes, in remission; Translations: [Tobacco dependence in remission] Onset: 05-05-2022 Chronic Syncope (2 sources) Syncope and collapse; Translations: [SYNCOPE AND COLLAPSE] Onset: 08-02-2022 Episodic Unclassified (3 sources) CONTACT W/AND (SUSP) EXPOS COVID-19; Translations: [CONTACT W/AND (SUSP) EXPOS COVID-19] Onset: 02-06-2022 Unclassified (1 source) Encephalopathy, unspecified; Translations: [Encephalopathy, unspecified] Onset: 06-20-2023 Unclassified (1 source) Other specified bacterial intestinal infections; Translations: [Other specified bacterial intestinal infections] Onset: 10-12-2022 Unclassified (1 source) Body mass index 20-24 - normal 07-28-2023 Viral infection (5 sources) COVID-19; Translations: [Severe acute respiratory syndrome coronavirus 2 (SARS-CoV-2) detected] Onset: 06-20-2023 06-20-2023 Episodic Past or Other Problems Problem Classification Problem Date Documented Da te Episodic/Chronic E Codes: Cut/pierceb (1 source) Contact with other sharp object(s), not elsewhere classified, initial encounter; Translations: [[facility] OTH SHRP OB NOT ELSW CLASS INI] Onset: 04-01-2022 Episodic Esophageal disorders (5 sources) Esophageal disorders Immunizations and screening for infectious disease (1 source) Encounter for immunization; Translations: [ENCOUNTER FOR IMMUNIZATION] Onset: 04-01-2022 Episodic Other connective tissue disease (2 sources) Pain in right leg; Translations: [Pain in limb] Onset: 03-01-2023 03-01-2023 Episodic Other connective tissue disease (1 source) Pain in left leg; Translations: [Pain in left leg] Onset: 03-01-2023 Episodic Other gastrointestinal disorders (5 sources) Change in bowel habit; Translations: [CHANGE IN BOWEL HABIT] Onset: 05-02-2022 Episodic Other nervous system disorders (2 sources) Anesthesia of skin; Translations: [Disturbance of skin sensation] Onset: 03-01-2023 03-01-2023 Episodic Other nutritional; endocrine; and metabolic disorders (1 source) Anorexia; Translations: [ANOREXIA] Onset: 05-05-2022 Episodic Unclassified (1 source) CONTACT W/AND (SUSP) EXPOS COVID-19; Translations: [CONTACT W/AND (SUSP) EXPOS COVID-19] Onset: 02-04-2022 Viral infection (5 sources) COVID-19; Translations: [COVID-19] Onset: 06-20-2023 Results Test Name Value Interpretation Reference Range [facility] [id number] Normal [facility] Consent for Procedure/Surger yon 07-29-2023 Consent for Procedure/Surgery [id number]#[id number] [facility] Facesheeton 07-29-2023 Facesheet [id number]#[id number] [facility] Ambulatory Visit Summaryon 1 09-28-2022 Ambulatory Visit Summary YONATAN PATEL :1945 Visit Date:07/28/2023 Ambulatory Visit Instructions Your Care Team Attending Physician - TOO TEJADA, Angely Garcia Primary Care Physician - ABBE GOMEZ, CISCO Referring Physician - CISCO NICHOLSON DO This Is Your Medications List Contact prescribing physician if questions or concerns aspirin (aspirin 81 mg Oral EC Tab) atorvastatin (atorvastatin 80 mg Tab) brimonidine-brinzolamide ophthalmic (Simbrinza 0.2%-1% ophthalmic suspension) busPIRone (busPIRone 15 mg Tab) gabapentin (gabapentin 300 mg Cap) latanoprost ophthalmic (latanoprost Opth 0.005% Nisa) metoprolol (Metoprolol tartrate 25 mg Tab) multivitamin temazepam (temazepam 15 mg Cap) Procedures Performed Colonoscopy (08/27/2022), EGD - esophagogastroduodenoscopy (08/27/2022), Cardiac catheterization, History of shoulder surgery, Repair of right inguinal hernia. Discharge Vitals Heart Rate (Peripheral) 72 Respiratory Rate 16 Blood Pressure 118/72 Height 187.9 cm Height 74 in Weight 83.4 kg Weight 183.48 lb BMI 23.62 Medications What How Much When Instructions Unchanged aspirin (aspirin 81 mg Oral EC Tab) 1 Tablets By Mouth Every day Contact prescribing physician if questions or concerns Unchanged atorvastatin (atorvastatin 80 mg Tab) 1 Tablets By Mouth Every day Contact prescribing physician if questions or concerns Unchanged brimonidine-brinzolamide ophthalmic (Simbrinza 0.2%-1% ophthalmic suspension) 1 Drops Both eyes 2 times a day Contact prescribing physician if questions or concerns Unchanged busPIRone (busPIRone 15 mg Tab) 1 Tablets By Mouth 2 times a day Oral, 0 Refill(s) Contact prescribing physician if questions or concerns Unchanged gabapentin (gabapentin 300 mg Cap) 1 Capsules By Mouth 4 times a day Oral, 0 Refill(s) Contact prescribing physician if questions or concerns Unchanged latanoprost ophthalmic (latanoprost Opth 0.005% Nisa) 1 Drops Ophthalmic Once a day (at bedtime) Contact prescribing physician if questions or concerns Unchanged metoprolol (Metoprolol tartrate 25 mg Tab) 0.5 Tablets By Mouth 2 times a day Oral, 0 Refill(s) Contact prescribing physician if questions or concerns Unchanged multivitamin 1 Tablets By Mouth Every day Contact prescribing physician if questions or concerns Unchanged temazepam (temazepam 15 mg Cap) 1 Capsules By Mouth Once a day (at bedtime) Oral, 0 Refill(s) Contact prescribing physician if questions or concerns Medications and Immunizations Administered Not Given influenza virus vaccine, inactivated, Patient Refuses Allergies No Known Allergies No Known Medication Allergies Problems Ongoing - Any problem that you are currently receiving treatment for. 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 Please share your experience with us by completing your survey. We appreciate your feedback and thank you for choosing us for your care. [facility] Ambulatory Visit Summary YONATAN PATEL :1945 Visit Date:07/28/2023 Ambulatory Visit Instructions Your Care Team Attending Physician - Angely OCAMPO MD Primary Care Physician - CISCO NICHOLSON DO Referring Physician - CISCO NICHOLSON DO This Is Your Medications List Contact prescribing physician if questions or concerns aspirin (aspirin 81 mg Oral EC Tab) atorvastatin (atorvastatin 80 mg Tab) brimonidine-brinzolamide ophthalmic (Simbrinza 0.2%-1% ophthalmic suspension) busPIRone (busPIRone 15 mg Tab) gabapentin (gabapentin 300 mg Cap) latanoprost ophthalmic (latanoprost Opth 0.005% Nisa) metoprolol (Metoprolol tartrate 25 mg Tab) multivitamin temazepam (temazepam 15 mg Cap) Procedures Performed Colonoscopy (08/27/2022), EGD - esophagogastroduodenoscopy (08/27/2022), Cardiac catheterization, History of shoulder surgery, Repair of right inguinal hernia. Discharge Vitals Heart Rate (Peripheral) 72 Respiratory Rate 16 Blood Pressure 118/72 Height 187.9 cm Height 74 in Weight 83.4 kg Weight 183.48 lb BMI 23.62 Medications What How Much When Instructions Unchanged aspirin (aspirin 81 mg Oral EC Tab) 1 Tablets By Mouth Every day Contact prescribing physician if questions or concerns Unchanged atorvastatin (atorvastatin 80 mg Tab) 1 Tablets By Mouth Every day Contact prescribing physician if questions or concerns Unchanged brimonidine-brinzolamide ophthalmic (Simbrinza 0.2%-1% ophthalmic suspension) 1 Drops Both eyes 2 times a day Contact prescribing physician if questions or concerns Unchanged busPIRone (busPIRone 15 mg Tab) 1 Tablets By Mouth 2 times a day Oral, 0 Refill(s) Contact prescribing physician if questions or concerns Unchanged gabapentin (gabapentin 300 mg Cap) 1 Capsules By Mouth 4 times a day Oral, 0 Refill(s) Contact prescribing physician if questions or concerns Unchanged latanoprost ophthalmic (latanoprost Opth 0.005% Nisa) 1 Drops Ophthalmic Once a day (at bedtime) Contact prescribing physician if questions or concerns Unchanged metoprolol (Metoprolol tartrate 25 mg Tab) 0.5 Tablets By Mouth 2 times a day Oral, 0 Refill(s) Contact prescribing physician if questions or concerns Unchanged multivitamin 1 Tablets By Mouth Every day Contact prescribing physician if questions or concerns Unchanged temazepam (temazepam 15 mg Cap) 1 Capsules By Mouth Once a day (at bedtime) Oral, 0 Refill(s) Contact prescribing physician if questions or concerns Medications and Immunizations Administered Not Given influenza virus vaccine, inactivated, Patient Refuses Allergies No Known Allergies No Known Medication Allergies Problems Ongoing - Any problem that you are currently receiving treatment for. 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 Please share your experience with us by completing your survey. We appreciate your feedback and thank you for choosing us for your care. Myron [facility] Physician Referralon 023 Physician Referral [phone] [id number] Normal [facility] Basic Metabolic Panelon 11-0 Anion gap [Moles/Vol] 10.4 mmol/L Normal 6.0-15.[address] [facility] Comment on above: Order Comment: FASTI NG Y Performed By: #### H S TROP, CMP, CK, CBC #### [facility] [address] Calcium [Mass/Vol] 9.4 mg/dL Normal 8.6-10.3 [facility] Comment on above: Order Comment: FASTI NG Y Performed By: #### H S TROP, CMP, CK, CBC #### [facility] [address] Chloride [Moles/Vol] 106 mmol/L Normal 98-107 [facility] Comment on above: Order Comment: FASTI NG Y Performed By: #### H S TROP, CMP, CK, CBC #### [facility] [address] CO2 [Moles/Vol] 28.8 mmol/L Normal 21.0-31.0 [facility] Comment on above: Order Comment: FASTI NG Y Performed By: #### H S TROP, CMP, CK, CBC #### [facility] [address] [place] [address] [place] Creatinine [Mass/Vol] 0.78 mg/dL Normal 0.70-1.30 [facility] Comment on above: Order Comment: FASTI NG Y Performed By: #### H S TROP, CMP, CK, CBC #### [facility] [address] [place] [address] [place] Creatinine Clr Calc Pharmacy 81.46 [facility] Comment on above: Order Comment: FASTI NG Y Performed By: #### H S TROP, CMP, CK, CBC #### [facility] [address] [place] [address] [place] GFR/1.73 sq M.predicted MDRD (S/P/Bld) [Vol rate/Area] mL/min/{1.73_m2} [facility] Comment on above: Order Comment: FASTI NG Y Performed By: #### H S TROP, CMP, CK, CBC #### [address] Glucose [Mass/Vol] 99 mg/dL Normal 70-100 [facility] Comment on above: Order Comment: FASTI NG Y Result Comment: [place] Glucose Reference Range is dependent on time and content of last meal. Glucose of more than 200 mg/dL in a nonstressed, ambulatory subject supports the diagnosis of Diabetes Mellitus. ADA recommended reference range Performed By: #### H S TROP, CMP, CK, CBC #### [address] Potassium [Moles/Vol] 4.2 mmol/L Normal 3.5-5.1 [facility] Comment on above: Order Comment: FASTI NG Y Performed By: #### H S TROP, CMP, CK, CBC #### [address] Sodium [Moles/Vol] 141 mmol/L Normal 136-145 [facility] Comment on above: Order Comment: FASTI NG Y Performed By: #### H S TROP, CMP, CK, CBC #### [address] Urea nitrogen [Mass/Vol] 16 mg/dL Normal 7-25 [facility] Comment on above: Order Comment: FASTI NG Y Performed By: #### H S TROP, CMP, CK, CBC #### [address] Complete Blood Count Auto Di ffon 06-22-2023 Basophils (Bld) [#/Vol] 0.0 10*3/uL Normal 0.0-0.2 [facility] Comment on above: Result Comment: PERF ORMED BY: [place] [address] PATHOLOGIST PER DIEM PHYSICAL THERAPIST HARRY MARTI M.D. Performed By: #### L IPID, [id number], PT, CBC, HEPATIC, BMP, PTT, TSH3, MG #### [address] Basophils/100 WBC (Bld) 0.4 % Normal . [facility] Comment on above: Performed By: #### L IPID, [id number], PT, CBC, HEPATIC, BMP, PTT, TSH3, MG #### [address] Eosinophils (Bld) [#/Vol] 0.1 10*3/uL Normal 0.0-0.45 [facility] Comment on above: Performed By: #### L IPID, [id number], PT, CBC, HEPATIC, BMP, PTT, TSH3, MG #### [address] Eosinophils/100 WBC (Bld) 1.2 % Normal . [facility] Comment on above: Performed By: #### L IPID, [id number], PT, CBC, HEPATIC, BMP, PTT, TSH3, MG #### [address] Erythrocyte distribution width (RBC) [Ratio] 15.2 % High 12.0-14.8 [facility] Comment on above: Performed By: #### L IPID, [id number], PT, CBC, HEPATIC, BMP, PTT, TSH3, MG #### [address] Hematocrit (Bld) [Volume fraction] 40.0 % Normal 38.8-50.0 [facility] Comment on above: Performed By: #### L IPID, [id number], PT, CBC, HEPATIC, BMP, PTT, TSH3, MG #### [address] Hemoglobin (Bld) [Mass/Vol] 13.6 g/dL Normal 13.0-17.0 [facility] Comment on above: Performed By: #### L IPID, [id number], PT, CBC, HEPATIC, BMP, PTT, TSH3, MG #### [address] Lymphocytes (Bld) [#/Vol] 1.5 10*3/uL Normal 1.00-4.8 [facility] Comment on above: Performed By: #### L IPID, [id number], PT, CBC, HEPATIC, BMP, PTT, TSH3, MG #### [address] Lymphocytes/100 WBC (Bld) 35.5 % Normal . [facility] Comment on above: Performed By: #### L IPID, [id number], PT, CBC, HEPATIC, BMP, PTT, TSH3, MG #### [address] MCH (RBC) [Entitic mass] 29.4 pg Normal 27.5-35.2 [facility] Comment on above: Performed By: #### L IPID, [id number], PT, CBC, HEPATIC, BMP, PTT, TSH3, MG #### [address] MCV (RBC) [Entitic vol] 86.7 fL Normal 83.5-101 [facility] Comment on above: Performed By: #### L IPID, [id number], PT, CBC, HEPATIC, BMP, PTT, TSH3, MG #### [address] Mean Corpuscular HGB Conc 33.9 g/dL Normal 32.5-35.6 [facility] Comment on above: Performed By: #### L IPID, [id number], PT, CBC, HEPATIC, BMP, PTT, TSH3, MG #### [address] Monocytes (Bld) [#/Vol] 0.4 10*3/uL Normal 0.0-0.8 [facility] Comment on above: Performed By: #### L IPID, [id number], PT, CBC, HEPATIC, BMP, PTT, TSH3, MG #### [address] Monocytes/100 WBC (Bld) 10.4 % Normal . [facility] Comment on above: Performed By: #### L IPID, [id number], PT, CBC, HEPATIC, BMP, PTT, TSH3, MG #### [facility] [address] [place] [address] Neutrophils (Bld) [#/Vol] 2.2 10*3/uL Normal 1.8-7.7 [facility] Comment on above: Performed By: #### L IPID, [id number], PT, CBC, HEPATIC, BMP, PTT, TSH3, MG #### [facility] [address] [place] [address] Neutrophils/100 WBC (Bld) 52.5 % Normal . [facility] Comment on above: Performed By: #### L IPID, [id number], PT, CBC, HEPATIC, BMP, PTT, TSH3, MG #### [facility] [address] [place] [address] NRBC% 0.1 /100{WBC} Normal 0-0.5 [facility] Comment on above: Performed By: #### L IPID, [id number], PT, CBC, HEPATIC, BMP, PTT, TSH3, MG #### [address] Platelet mean volume (Bld) [Entitic vol] 7.3 fL Normal 6.6-10.1 [facility] Comment on above: Performed By: #### L IPID, [id number], PT, CBC, HEPATIC, BMP, PTT, TSH3, MG #### [place] [address] [place] Platelets (Bld) [#/Vol] 153 10*3/uL Normal 150-450 [facility] Comment on above: Performed By: #### L IPID, [id number], PT, CBC, HEPATIC, BMP, PTT, TSH3, MG #### [facility] [address] [place] [address] RBC (Bld) [#/Vol] 4.61 10*6/uL Normal 3.90-5.60 [facility] Comment on above: Performed By: #### L IPID, [id number], PT, CBC, HEPATIC, BMP, PTT, TSH3, MG #### [facility] [address] [place] [address] WBC (Bld) [#/Vol] 4.1 10*3/uL Normal 4.1-10.5 [facility] Comment on above: Performed By: #### L IPID, [id number], PT, CBC, HEPATIC, BMP, PTT, TSH3, MG #### [facility] [address] Hepatic Panelon 06-22-2023 Albumin [Mass/Vol] 3.8 g/dL Normal 3.5-5.7 [facility] Comment on above: Order Comment: FASTI NG Y Performed By: #### H S TROP, CMP, CK, CBC #### [address] Albumin/Globulin [Mass ratio] 1.6 {ratio} Normal [facility] Comment on above: Order Comment: FASTI NG Y Performed By: #### H S TROP, CMP, CK, CBC #### [address] ALP [Catalytic activity/Vol] 57 U/L Normal 34-104 [facility] Comment on above: Order Comment: FASTI NG Y Performed By: #### H S TROP, CMP, CK, CBC #### [address] ALT [Catalytic activity/Vol] 26 U/L Normal 7-52 [facility] Comment on above: Order Comment: FASTI NG Y Performed By: #### H S TROP, CMP, CK, CBC #### [address] AST [Catalytic activity/Vol] 27 U/L Normal 13-39 [facility] Comment on above: Order Comment: FASTI NG Y Performed By: #### H S TROP, CMP, CK, CBC #### [address] [place] [address] [place] Bilirubin [Mass/Vol] 1.0 mg/dL Normal 0.3-1.0 [facility] Comment on above: Order Comment: FASTI NG Y Performed By: #### H S TROP, CMP, CK, CBC #### [address] Bilirubin,Indirect 0.8 mg/dL Normal [facility] Comment on above: Order Comment: FASTI NG Y Performed By: #### H S TROP, CMP, CK, CBC #### [address] Bilirubin.indirect [Mass/Vol] 0.20 mg/dL High 0.03-0.18 [facility] Comment on above: Order Comment: FASTI NG Y Performed By: #### H S TROP, CMP, CK, CBC #### [address] Globulin (S) [Mass/Vol] 2.4 g/dL Normal [facility] Comment on above: Order Comment: FASTI NG Y Performed By: #### H S TROP, CMP, CK, CBC #### [address] Protein [Mass/Vol] 6.2 g/dL Low 6.4-8.9 [facility] Comment on above: Order Comment: FASTI NG Y Performed By: #### H S TROP, CMP, CK, CBC #### [address] Lipid Panelon 06-22-2023 Cholesterol [Mass/Vol] 108 mg/dL Low 140-[address] [facility] Comment on above: Order Comment: FASTI NG Y Result Comment: Chol less than 200 mg/dl low risk Chol 201-239 mg/dl borderline risk Chol 240 mg/dl and greater high risk Performed By: #### H S TROP, CMP, CK, CBC #### [address] Cholesterol in HDL [Mass/Vol] 30 mg/dL Normal 23-92 [facility] Comment on above: Order Comment: SHABANA Child Result Comment: HDL CHOL ATP-III CLASSIFICATION Cardiovascular Risk HDL > or equal to 60 mg/dL LOW HDL < 40 mg/dL HIGH Performed By: #### H S TROP, CMP, CK, CBC #### [facility] [address] Cholesterol.total/Chol esterol in HDL [Mass ratio] 3.6 {ratio} Normal <5.0 [facility] Comment on above: Order Comment: SHABANA Child Performed By: #### H S TROP, CMP, CK, CBC #### [facility] [address] LDL Cholesterol,Calculated 54 mg/dL Normal 0-100 [facility] Comment on above: Order Comment: SHABANA Child Result Comment: LDL ATP III CLASSIFICATION LDL less than 100 mg/dL Optimal LDL 100-129 mg/dL Near or above optimal LDL 130-159 mg/dL Borderline high LDL 160-189 mg/dL High LDL greater than 189 mg/dL Very high Performed By: #### H S TROP, CMP, CK, CBC #### [facility] [address] Triglyceride w/Reflex 120 mg/dL Normal 0-149 [facility] Comment on above: Order Comment: SHABANA Child Result Comment: TRIG ATP III CLASSIFICATION TRIG less than 150 mg/dL Normal TRIG 150-199 mg/dL Borderline high TRIG 200-500 mg/dL High TRIG greater than 500 mg/dL Very high Standard traceable to the Center for Disease Conrtrol and Prevention (CDC) test method. Performed By: #### H S TROP, CMP, CK, CBC #### [facility] [address] VLDL CHOLESTEROL 24 mg/dL Normal [facility] Comment on above: Order Comment: SHABANA Child Performed By: #### H S TROP, CMP, CK, CBC #### [facility] [address] MR angio head wo noelon 06-22 MR angio head wo con [facility] [place] [address] [place] [address] MRI Report Signed Patient: Yonatan Patel MR#: [id number] 6 : 1945 Acct:[id number] Age/Sex: 78 / M ADM Date: 06/20/23 Loc: 4N Room: 4D2792-4 Type: ADM IN Attending Dr: Maren Petersen MD Copies to: MD Berhane Rocha MD Ordering Provider: Berhane Trammell MD Date of Service: 06/22/23 MR/MR angio head wo con: stroke MRI/MRA BRAIN WITHOUT CONTRAST COMPARISON: CT 06/20/2023 CLINICAL DATA: Confusion Sagittal T2, axial FLAIR and diffusion-weighted imaging was performed. 3-D [id number] imaging of the [place] of [place] was also performed. There is generalized atrophy. Patchy foci of increased T2 and FLAIR signal are seen within the periventricular and subcortical white matter. Appearance suggests chronic microvascular disease. No restricted diffusion is identified to suggest a recent ischemic event. There are no extra-axial collections or mass effect. A trace amount of fluid is seen dependent within the right maxillary sinus. The MRA images show a dominant left distal vertebral artery. The vertebral, basilar and posterior cerebral arteries show no other significant findings. The right posterior communicating artery is larger than the left. The carotid siphons are patent. The left anterior cerebral artery is hypoplastic. The anterior communicating artery is seen. The middle cerebral arteries show no focal stenosis or suspected thrombosis. No aneurysms are identified. MR/MR angio head wo con IMPRESSION: ATROPHY AND CHRONIC MICROVASCULAR DISEASE. HYPOPLASTIC LEFT ANTERIOR CEREBRAL ARTERY. NO OTHER SIGNIFICANT VASCULAR FINDINGS. Impression dictated by: Selena Reid M.D.06/22/2023 4:25 PM Dictation Location: [place] [address] Transcribed By: [facility] 06/22/23 1625 Dictated By: Selena Reid MD 06/22/23 1617 Signed By: 06/22/23 1625 Normal [facility] Magnesiumon 06-22-2023 Magnesium [Mass/Vol] 2.1 mg/dL Normal 1.9-2.7 [facility] Comment on above: Order Comment: FASTI NG Y Performed By: #### H S TROP, CMP, CK, CBC #### [place] [id number] [facility] Partial Thromboplastin Timeo n 06-22-2023 aPTT Coag (Bld) [Time] 27.4 s Normal 25.1-36.[address] [facility] Comment on above: Result Comment: A he matocrit value greater than 55% may lead to inaccurate results in coagulation testing. Patients having hematocrit values >55% require a special collection tube for coagulation studies. Please contact the laboratory at [phone] for redraw instructions. PERFORMED BY: [place] [id number] PATHOLOGIST PER DIEM PHYSICAL THERAPIST HARRY MARTI M.D. Performed By: #### H S TROP, CMP, CK, CBC #### [place] [id number] [facility] Prothrombin Time INRon 06-22 INR Coag (PPP) [Relative time] 1.0 {INR} Normal [facility] Comment on above: Result Comment: INR Therapeutic Range A) Pre- and Peroperative OAT started two weeks before surgery. NOT HIP SURGERY: 1.5 - 2.5 HIP SURGERY: 2 - 3 B) Primary and secondary prevention of venous THROMBOSIS: 2 - 3 C) Active venous thrombosis, pulmonary embolism and prevention of recurrent venous thrombosis: 2 - 3 D) Prevention of arterial thromboembolism including patients with mechanical heart valves: 3 - 4.5 Performed By: #### L IPID, [id number], PT, CBC, HEPATIC, BMP, PTT, TSH3, MG #### [place] [id number] [facility] PT Coag (PPP) [Time] 11.6 s Normal 9.0-12.9 [facility] Comment on above: Result Comment: A he matocrit value greater than 55% may lead to inaccurate results in coagulation testing. Patients having hematocrit values >55% require a special collection tube for coagulation studies. Please contact the laboratory at [phone] for redraw instructions. Performed By: #### L IPID, [id number], PT, CBC, HEPATIC, BMP, PTT, TSH3, MG #### [address] [address] [facility] Thyroid Stimulating Hormoneo n 06-22-2023 TSH Qn 2.38 m[IU]/L Normal 0.45-5.33 [facility] Comment on above: Order Comment: FASTI NG Y Result Comment: PERF ORMED BY: [place] [address] PATHOLOGIST PER DIEM PHYSICAL THERAPIST HARRY MARTI M.D. Performed By: #### H S TROP, CMP, CK, CBC #### [facility] [address] [place] [address] Vit. B12/Folate Profileon Cobalamin (Vitamin B12) [Mass/Vol] 425 pg/mL Normal 180-914 [facility] Comment on above: Order Comment: FASTI NG Y Performed By: #### H S TROP, CMP, CK, CBC #### [facility] [address] [place] [address] Folate 29.0 ng/mL Normal >5.9 [facility] Comment on above: Order Comment: FASTI NG Y Result Comment: Aye te reference range: >5.9 ng/ml The WHO technical consultation on folate and vitamin b12 deficiencies has determined that folate concentrations less than 4 ng/ml are considered deficient. Performed By: #### H S TROP, CMP, CK, CBC #### [facility] [address] [place] [address] Vitamin B1 (Thiamine) Bloodo n 06-22-2023 Vitamin B1 (Thiamine) Blood 143.9 Normal 66.5-200.0 [facility] Comment on above: Result Comment: This test was developed and its performance characteristics determined by [facility]. It has not been cleared or approved by the Food and Drug Administration. Performed at: [address] [id number] Skin Installer: Juan Howard MD, Phone: [phone] PERFORMED BY: [place] [address] PATHOLOGIST PER DIEM PHYSICAL THERAPIST HARRY MARTI M.D. Performed By: #### V ITB1 #### [facility] , Ammoniaon 06-21-2023 Ammonia (P) [Moles/Vol] 19 umol/L Normal 11-35 [facility] Comment on above: Result Comment: PERF ORMED BY: [place] [address] PATHOLOGIST PER DIEM PHYSICAL THERAPIST HARRY MARTI M.D. Performed By: #### H S TROP, CMP, CK, CBC #### [facility] [address] Basic Metabolic Panelon 11 Anion gap [Moles/Vol] 11.3 mmol/L Normal 6.0-15.[address] [facility] Comment on above: Performed By: #### H S TROP, CMP, CK, CBC #### [address] Calcium [Mass/Vol] 9.4 mg/dL Normal 8.6-10.3 [facility] Comment on above: Performed By: #### H S TROP, CMP, CK, CBC #### [facility] [address] Chloride [Moles/Vol] 107 mmol/L Normal 98-107 [facility] Comment on above: Performed By: #### H S TROP, CMP, CK, CBC #### [facility] [address] [place] [address] CO2 [Moles/Vol] 25.7 mmol/L Normal 21.0-31.0 [facility] Comment on above: Performed By: #### H S TROP, CMP, CK, CBC #### [facility] [address] [place] [address] Creatinine [Mass/Vol] 0.83 mg/dL Normal 0.70-1.30 [facility] Comment on above: Performed By: #### H S TROP, CMP, CK, CBC #### [facility] [address] [place] [address] [place] Creatinine Clr Calc Pharmacy 80.52 Normal [facility] Comment on above: Result Comment: PERF ORMED BY: [facility] [address] [place] [address] PATHOLOGIST PER DIEM PHYSICAL THERAPIST HARRY MARTI M.D. Performed By: #### H S TROP, CMP, CK, CBC #### [facility] [address] [place] [address] [place] GFR/1.73 sq M.predicted MDRD (S/P/Bld) [Vol rate/Area] mL/min/{1.73_m2} Normal [facility] Comment on above: Performed By: #### H S TROP, CMP, CK, CBC #### [address] Glucose [Mass/Vol] 174 mg/dL High 70-100 [facility] Comment on above: Result Comment: [facility] Glucose Reference Range is dependent on time and content of last meal. Glucose of more than 200 mg/dL in a nonstressed, ambulatory subject supports the diagnosis of Diabetes Mellitus. ADA recommended reference range Performed By: #### H S TROP, CMP, CK, CBC #### [address] Potassium [Moles/Vol] 4.0 mmol/L Normal 3.5-5.1 [facility] Comment on above: Performed By: #### H S TROP, CMP, CK, CBC #### [address] Sodium [Moles/Vol] 140 mmol/L Normal 136-145 [facility] Comment on above: Performed By: #### H S TROP, CMP, CK, CBC #### [address] Urea nitrogen [Mass/Vol] 11 mg/dL Normal 7-25 [facility] Comment on above: Performed By: #### H S TROP, CMP, CK, CBC #### [address] Hemogram CBC Without Diffon 06-21-2023 Erythrocyte distribution width (RBC) [Ratio] 14.7 % Normal 12.0-14.8 [facility] Comment on above: Performed By: #### H S TROP, CMP, CK, CBC #### [address] Hematocrit (Bld) [Volume fraction] 40.7 % Normal 38.8-50.0 [facility] Comment on above: Performed By: #### H S TROP, CMP, CK, CBC #### [address] Hemoglobin (Bld) [Mass/Vol] 13.9 g/dL Normal 13.0-17.0 [facility] Comment on above: Performed By: #### H S TROP, CMP, CK, CBC #### [address] MCH (RBC) [Entitic mass] 29.7 pg Normal 27.5-35.2 [facility] Comment on above: Performed By: #### H S TROP, CMP, CK, CBC #### [address] MCV (RBC) [Entitic vol] 86.8 fL Normal 83.5-101 [facility] Comment on above: Performed By: #### H S TROP, CMP, CK, CBC #### [address] Mean Corpuscular HGB Conc 34.2 g/dL Normal 32.5-35.6 [facility] Comment on above: Performed By: #### H S TROP, CMP, CK, CBC #### [address] Platelet mean volume (Bld) [Entitic vol] 7.3 fL Normal 6.6-10.1 [facility] Comment on above: Result Comment: PERF ORMED BY: [place] [address] PATHOLOGIST PER DIEM PHYSICAL THERAPIST HARRY MARTI M.D. Performed By: #### H S TROP, CMP, CK, CBC #### [address] Platelets (Bld) [#/Vol] 144 10*3/uL Low 150-450 [facility] Comment on above: Performed By: #### H S TROP, CMP, CK, CBC #### [facility] [address] RBC (Bld) [#/Vol] 4.69 10*6/uL Normal 3.90-5.60 [facility] Comment on above: Performed By: #### H S TROP, CMP, CK, CBC #### [facility] [address] WBC (Bld) [#/Vol] 3.9 10*3/uL Low 4.1-10.5 [facility] Comment on above: Performed By: #### H S TROP, CMP, CK, CBC #### [facility] [address] COVID CepheidOrdered By: Huy Palacios on 06-20-2023 SARS-CoV-2 (COVID-19) Ab IA Ql Positive Negative [facility] Comment on above: This is a duplicate Cepheid Xpert Xpress CoV-2/Flu/RSV Plus RNA by RT-PCR result to be used for statistical tracking purpose only. SARS-CoV-2 (COVID-19) RNA MARIANNE+probe Ql (Unsp spec) [facility] COVID-19 / Flu A/B / RSV PCR on 06-20-2023 SARS-CoV-2 (COVID-19) RNA MARIANNE+probe Ql (Unsp spec) Results called at 0230 on 06/20/23 COVID-19 Cepheid Result Positive for SARS-CoV-2 RNA by RT-PCR Flu A Cepheid Result Negative for Flu A RNA by RT-PCR Flu B Cepheid Result Negative for Flu B RNA by RT-PCR RSV Cepheid Result Negative for RSV RNA by RT-PCR COVID19 Blank Space Reference: Negative COVID19 Blank Space Cepheid Disclaimer The Cepheid Xpert Xpress CoV-2/Flu/RSV Plus has Cepheid Disclaimer not been FDA cleared or approved; this test has Cepheid Disclaimer been authorized by FDA under an EUA for use by Cepheid Disclaimer authorized laboratories; this test has been Cepheid Disclaimer authorized only for the simultaneous qualitative Cepheid Disclaimer detection and differentiation of nucleic acids from Cepheid Disclaimer SARS-CoV-2, influenza A, influenza B, and Cepheid Disclaimer respiratory syncytial virus (RSV), and not for any Cepheid Disclaimer other viruses or pathogens; and this test is only Cepheid Disclaimer authorized for the duration of the declaration that Cepheid Disclaimer circumstances exist justifying the authorization of Cepheid Disclaimer emergency use of in vitro diagnostic tests for Cepheid Disclaimer detection and/or diagnosis of COVID-19 under Cepheid Disclaimer Section 564(b)(1) of the Act, 21 U.S.C. 360bbb- Cepheid Disclaimer 3(b)(1), unless the authorization is terminated or Cepheid Disclaimer revoked sooner. PERFORMED BY: [place] [address] PATHOLOGIST PER DIEM PHYSICAL THERAPIST HARRY MARTI M.D. [facility] Comment on above: Performed By: #### H S TROP, CMP, CK, CBC #### [address] head/brain wo [facility] [place] [facility]-20 CT head/brain wo [facility] [place] [address] CT Scan Report Signed Patient: Yonatan Patel MR#: [id number] 6 : 1945 Acct:[id number] Age/Sex: 78 / M ADM Date: 06/20/23 Loc: Room: [address] [place] [address] Type: ADM INOo Attending Dr: Jassi Arias DO Copies to: DO Sandoval Fajardo Jr, MD Ordering Provider: Sandoval Palacios Jr, MD Date of Service: 06/20/23 CT/CT head/brain wo con: AMS CT head/brain wo con 06/20/2023 1:12 AM SIGNS AND SYMPTOMS: AMS TECHNIQUE:Multi-detector CT axial slices of the brain were obtained without IV contrast. CT was performed with one or more of the following dose reduction techniques: Automated exposure control, adjustment of the mA and/or kV according to patient size, or use of iterative reconstruction technique. COMPARISON: 03/01/2023 FINDINGS: There is no shift of the midline structures, acute intracranial bleeding, mass effects, or evidence of acute ischemia. Atherosclerotic changes are noted in the intracranial segments of the internal carotid arteries and within the middle cerebral arteries similar to the prior study. There is diffuse age-related cortical atrophy. There is periventricular white matter hypoattenuation. The ventricular system is normal in size. The brainstem and the cerebellum are unremarkable. The visualized intraorbital contents and the infratemporal soft tissues show no acute abnormality. Mucosal thickening is noted in the right maxillary sinus. The osseous structures in the skull base and the calvarium show no abnormality. CT/CT head/brain wo con IMPRESSION: No acute intracranial pathology. Chronic age-related neurodegenerative changes are noted, as above. Impression dictated by: Daisha Fernandez M.D.06/20/2023 8:34 AM Dictation Location: [place] [address] Transcribed By: [facility] 06/20/23833 Dictated By: Daisha Fernandez II, MD 06/20/2330 Signed By: 06/20/23833 Normal [facility] Cepheid COVID PCR Positiveon 06-20-2023 SARS-CoV-2 (COVID-19) RNA MARIANNE+probe Ql (Unsp spec) Positive Critically abnormal Negative [facility] Comment on above: Result Comment: This is a duplicate Cepheid Xpert Xpress CoV-2/Flu/RSV Plus RNA by RT-PCR result to be used for statistical tracking purpose only. PERFORMED BY: [place] [address] [place] [address] PATHOLOGIST PER DIEM PHYSICAL THERAPIST HARRY MARTI M.D. Performed By: #### H S TROP, CMP, CK, CBC #### [facility] [address] [place] [address] Complete Blood Count Auto Di ffon 06-20-2023 Basophils (Bld) [#/Vol] 0.0 10*3/uL Normal 0.0-0.2 [facility] Comment on above: Result Comment: PERF ORMED BY: [place] [address] PATHOLOGIST PER DIEM PHYSICAL THERAPIST HARRY MARTI M.D. Performed By: #### H S TROP, CMP, CK, CBC #### [address] Basophils/100 WBC (Bld) 0.4 % Normal . [facility] Comment on above: Performed By: #### H S TROP, CMP, CK, CBC #### [address] Eosinophils (Bld) [#/Vol] 0.0 10*3/uL Normal 0.0-0.45 [facility] Comment on above: Performed By: #### H S TROP, CMP, CK, CBC #### [address] Eosinophils/100 WBC (Bld) 0.6 % Normal . [facility] Comment on above: Performed By: #### H S TROP, CMP, CK, CBC #### [address] Erythrocyte distribution width (RBC) [Ratio] 14.9 % High 12.0-14.8 [facility] Comment on above: Performed By: #### H S TROP, CMP, CK, CBC #### [address] Hematocrit (Bld) [Volume fraction] 43.3 % Normal 38.8-50.0 [facility] Comment on above: Performed By: #### H S TROP, CMP, CK, CBC #### [facility] [address] [place] [address] Hemoglobin (Bld) [Mass/Vol] 14.8 g/dL Normal 13.0-17.0 [facility] Comment on above: Performed By: #### H S TROP, CMP, CK, CBC #### [address] Lymphocytes (Bld) [#/Vol] 1.0 10*3/uL Normal 1.00-4.8 [facility] Comment on above: Performed By: #### H S TROP, CMP, CK, CBC #### [address] Lymphocytes/100 WBC (Bld) 20.8 % Normal . [facility] Comment on above: Performed By: #### H S TROP, CMP, CK, CBC #### [address] MCH (RBC) [Entitic mass] 30.0 pg Normal 27.5-35.2 [facility] Comment on above: Performed By: #### H S TROP, CMP, CK, CBC #### [address] MCV (RBC) [Entitic vol] 87.6 fL Normal 83.5-101 [facility] Comment on above: Performed By: #### H S TROP, CMP, CK, CBC #### [address] Mean Corpuscular HGB Conc 34.2 g/dL Normal 32.5-35.6 [facility] Comment on above: Performed By: #### H S TROP, CMP, CK, CBC #### [address] Monocytes (Bld) [#/Vol] 0.8 10*3/uL Normal 0.0-0.8 [facility] Comment on above: Performed By: #### H S TROP, CMP, CK, CBC #### [address] Monocytes/100 WBC (Bld) 24.01 % High 0.00-20.00 [facility] Comment on above: Result Comment: For adults in ED, MDW > 20.0 may be associated with a higher risk of sepsis during the first 12 hrs of hospital admission Performed By: #### H S TROP, CMP, CK, CBC #### [address] Monocytes/100 WBC (Bld) 15.6 % Normal . [facility] Comment on above: Performed By: #### H S TROP, CMP, CK, CBC #### [address] Neutrophils (Bld) [#/Vol] 3.0 10*3/uL Normal 1.8-7.7 [facility] Comment on above: Performed By: #### H S TROP, CMP, CK, CBC #### [address] Neutrophils/100 WBC (Bld) 62.6 % Normal . [facility] Comment on above: Performed By: #### H S TROP, CMP, CK, CBC #### [address] NRBC% 0.4 /100{WBC} Normal 0-0.5 [facility] Comment on above: Performed By: #### H S TROP, CMP, CK, CBC #### [address] Platelet mean volume (Bld) [Entitic vol] 7.9 fL Normal 6.6-10.1 [facility] Comment on above: Performed By: #### H S TROP, CMP, CK, CBC #### [address] Platelets (Bld) [#/Vol] 154 10*3/uL Normal 150-450 [facility] Comment on above: Performed By: #### H S TROP, CMP, CK, CBC #### [address] RBC (Bld) [#/Vol] 4.94 10*6/uL Normal 3.90-5.60 [facility] Comment on above: Performed By: #### H S TROP, CMP, CK, CBC #### [facility] [address] WBC (Bld) [#/Vol] 4.8 10*3/uL Normal 4.1-10.5 [facility] Comment on above: Performed By: #### H S TROP, CMP, CK, CBC #### [address] Comprehensive Metabolic Pane alex 06-20-2023 Albumin [Mass/Vol] 4.2 g/dL Normal 3.5-5.7 [facility] Comment on above: Performed By: #### H S TROP, CMP, CK, CBC #### [address] Albumin/Globulin [Mass ratio] 1.6 {ratio} Normal [facility] Comment on above: Performed By: #### H S TROP, CMP, CK, CBC #### [address] ALP [Catalytic activity/Vol] 53 U/L Normal 34-104 [facility] Comment on above: Performed By: #### H S TROP, CMP, CK, CBC #### [address] ALT [Catalytic activity/Vol] 31 U/L Normal 7-52 [facility] Comment on above: Performed By: #### H S TROP, CMP, CK, CBC #### [address] Anion gap [Moles/Vol] 9.2 mmol/L Normal 6.0-15.0 [facility] Comment on above: Performed By: #### H S TROP, CMP, CK, CBC #### [address] AST [Catalytic activity/Vol] 33 U/L Normal 13-39 [facility] Comment on above: Performed By: #### H S TROP, CMP, CK, CBC #### [address] Bilirubin [Mass/Vol] 1.0 mg/dL Normal 0.3-1.0 [facility] Comment on above: Performed By: #### H S TROP, CMP, CK, CBC #### [address] Calcium [Mass/Vol] 9.8 mg/dL Normal 8.6-10.3 [facility] Comment on above: Performed By: #### H S TROP, CMP, CK, CBC #### [facility] [address] Chloride [Moles/Vol] 107 mmol/L Normal 98-107 [facility] Comment on above: Performed By: #### H S TROP, CMP, CK, CBC #### [address] CO2 [Moles/Vol] 25.6 mmol/L Normal 21.0-31.0 [facility] Comment on above: Performed By: #### H S TROP, CMP, CK, CBC #### [address] Creatinine [Mass/Vol] 0.95 mg/dL Normal 0.70-1.30 [facility] Comment on above: Performed By: #### H S TROP, CMP, CK, CBC #### [address] Creatinine Clr Calc Pharmacy 70.44 [facility] Comment on above: Result Comment: PERF ORMED BY: [place] [address] PATHOLOGIST PER DIEM PHYSICAL THERAPIST HARRY MARTI M.D. Performed By: #### H S TROP, CMP, CK, CBC #### [address] GFR/1.73 sq M.predicted MDRD (S/P/Bld) [Vol rate/Area] mL/min/{1.73_m2} [facility] Comment on above: Performed By: #### H S TROP, CMP, CK, CBC #### [address] Globulin (S) [Mass/Vol] 2.7 g/dL Normal [facility] Comment on above: Performed By: #### H S TROP, CMP, CK, CBC #### [facility] [address] Glucose [Mass/Vol] 94 mg/dL Normal 70-100 [facility] Comment on above: Result Comment: [place] Glucose Reference Range is dependent on time and content of last meal. Glucose of more than 200 mg/dL in a nonstressed, ambulatory subject supports the diagnosis of Diabetes Mellitus. ADA recommended reference range Performed By: #### H S TROP, CMP, CK, CBC #### [facility] [address] Potassium [Moles/Vol] 3.8 mmol/L Normal 3.5-5.1 [facility] Comment on above: Performed By: #### H S TROP, CMP, CK, CBC #### [facility] [address] Protein [Mass/Vol] 6.9 g/dL Normal 6.4-8.9 [facility] Comment on above: Performed By: #### H S TROP, CMP, CK, CBC #### [address] Sodium [Moles/Vol] 138 mmol/L Normal 136-145 [facility] Comment on above: Performed By: #### H S TROP, CMP, CK, CBC #### [facility] [address] [place] [address] [place] Urea nitrogen [Mass/Vol] 18 mg/dL Normal 7-25 [facility] Comment on above: Performed By: #### H S TROP, CMP, CK, CBC #### [facility] [address] [place] [address] [place] Creatine Kinaseon 06-20-2023 CK [Catalytic activity/Vol] 113 U/L Normal 30-223 [facility] Comment on above: Performed By: #### H S TROP, CMP, CK, CBC #### [place] [address] [place] Troponin I High Sensitivityo n 06-20-2023 Troponin I High Sensitivity 7.8 pg/mL Normal 0.0-20.0 [facility] Comment on above: Result Comment: PERF ORMED BY: [place] [address] PATHOLOGIST PER DIEM PHYSICAL THERAPIST HARRY MARTI M.D. Performed By: #### H S TROP, CMP, CK, CBC #### [facility] [address] [place] [address] Urinalysison 06-20-2023 Appearance (U) Clear Normal Clear [facility] Comment on above: Order Comment: Name Collection Type:: Clean-Voided Midstream Performed By: #### H S TROP, CMP, CK, CBC #### [address] Bilirubin,Urine Negative Normal Negative [facility] Comment on above: Order Comment: Name Collection Type:: Clean-Voided Midstream Performed By: #### H S TROP, CMP, CK, CBC #### [address] Color (U) Yellow Normal Yellow [facility] Comment on above: Order Comment: Name Collection Type:: Clean-Voided Midstream Performed By: #### H S TROP, CMP, CK, CBC #### [facility] [address] [place] [address] Glucose Ql (U) Normal Normal Normal [facility] Comment on above: Order Comment: Name Collection Type:: Clean-Voided Midstream Performed By: #### H S TROP, CMP, CK, CBC #### [facility] [address] [place] [address] Ketones Ql (U) Negative Normal Negative [facility] Comment on above: Order Comment: Name Collection Type:: Clean-Voided Midstream Performed By: #### H S TROP, CMP, CK, CBC #### [facility] [address] [place] [address] Leukocyte esterase Test strip Ql (U) Negative Normal Negative [facility] Comment on above: Order Comment: Name Collection Type:: Clean-Voided Midstream Performed By: #### H S TROP, CMP, CK, CBC #### [address] Nitrite,Urine Negative Normal Negative [facility] Comment on above: Order Comment: Name Collection Type:: Clean-Voided Midstream Performed By: #### H S TROP, CMP, CK, CBC #### [address] Occult Blood,Urine Negative Normal Negative [facility] Comment on above: Order Comment: Name Collection Type:: Clean-Voided Midstream Result Comment: PERF ORMED BY: [place] [address] PATHOLOGIST PER DIEM PHYSICAL THERAPIST HARRY MARTI M.D. Performed By: #### H S TROP, CMP, CK, CBC #### [address] pH (U) 5.5 [pH] Normal 5.0-9.0 [facility] Comment on above: Order Comment: Name Collection Type:: Clean-Voided Midstream Performed By: #### H S TROP, CMP, CK, CBC #### [address] Protein,Urine Negative Normal Negative [facility] Comment on above: Order Comment: Name Collection Type:: Clean-Voided Midstream Performed By: #### H S TROP, CMP, CK, CBC #### [address] Specificy [place],Urine 1.005 Normal 1.001-1.03 0 [facility] Comment on above: Order Comment: Name Collection Type:: Clean-Voided Midstream Performed By: #### H S TROP, CMP, CK, CBC #### [address] Urobilinogen,Urine Normal Normal Normal [facility] Comment on above: Order Comment: Name Collection Type:: Clean-Voided Midstream Performed By: #### H S TROP, CMP, CK, CBC #### [address] XR chest 2V*on 06-20-2023 XR chest 2V* [facility] [place] [address] [place] [address] XRay Report Signed Patient: Yonatan Patel MR#: [id number] 6 : 1945 Acct:[id number] Age/Sex: 78 / M ADM Date: 06/20/23 Loc: Room: [address] [place] [address] Type: ADM INOo Attending Dr: Jassi Arias DO Copies to: DO Sandoval Fajardo Jr, MD Ordering Provider: Sandoval Palacios Jr, MD Date of Service: 06/20/23 XR/XR chest 2V*: Altered Mental Status XR chest 2V* 06/19/2023 8:58 PM SIGNS AND SYMPTOMS: Altered Mental Status PROTOCOL: Frontal and lateral radiographs of the chest COMPARISON: 03/01/2023 FINDINGS: The trachea is midline. The heart and mediastinal structures are within normal limits. Mild interstitial prominence is noted bilaterally. Degenerative changes are noted in the thoracic spine and shoulders. Postoperative changes are noted in the right shoulder. The bony thorax is intact. XR/XR chest 2V* IMPRESSION: No acute cardiopulmonary pathology. Chronic findings are redemonstrated, as above. Impression dictated by: Daisha Fernandez M.D.06/20/2023 11:21 AM Dictation Location: [place] [address] Transcribed By: [facility] 06/20/23 1121 Dictated By: Daisha Fernandez II, MD 06/20/23 1120 Signed By: 06/20/23 1121 Normal [facility] Alanine aminotransferase [En zymatic activity/volume] in Serum or PlasmaOrdered By: PROVIDER TEMP on 06-19-2023 ALT [Catalytic activity/Vol] 31 U/L 7-52 [facility] Albumin [Mass/volume] in Ser um or Plasma by Bromocresol green (BCG) dye binding methoOrdered By: PROVIDER TEMP on 06-19-2023 Albumin BCG dye [Mass/Vol] 4.2 g/dL 3.5-5.7 [facility] Alkaline phosphatase [Enzyma tic activity/volume] in Serum or PlasmaOrdered By: PROVIDER TEMP on 06-19-2023 ALP [Catalytic activity/Vol] 53 U/L 34-104 [facility] Aspartate aminotransferase [ Enzymatic activity/volume] in Serum or PlasmaOrdered By: PROVIDER TEMP on 06-19-2023 AST [Catalytic activity/Vol] 33 U/L 13-39 [facility] Basophils Auto (Bld) [#/Vol] Ordered By: PROVIDER TEMP on 06-19-2023 Basophils (Bld) [#/Vol] 0.0 10*3/uL 0.0-0.2 [facility] Basophils/100 WBC Auto (Bld) Ordered By: PROVIDER TEMP on 06-19-2023 Basophils/100 WBC (Bld) 0.4 % . [facility] Bilirubin Auto test strip Ql (U)Ordered By: PROVIDER TEMP on 06-19-2023 Bilirubin Ql (U) Negative Negative [facility] Bilirubin.total [Mass/volume ] in Serum or PlasmaOrdered By: PROVIDER TEMP on 06-19-2023 Bilirubin [Mass/Vol] 1.0 mg/dL 0.3-1.0 [facility] Calcium [Mass/volume] in Ser um or PlasmaOrdered By: PROVIDER TEMP on 06-19-2023 Calcium [Mass/Vol] 9.8 mg/dL 8.6-10.3 [facility] Carbon dioxide, total [Moles /volume] in Serum or PlasmaOrdered By: PROVIDER TEMP on 06-19-2023 CO2 [Moles/Vol] 25.6 mmol/L 21.0-31.0 [facility] Chloride [Moles/volume] in S raymundo or PlasmaOrdered By: PROVIDER TEMP on 06-19-2023 Chloride [Moles/Vol] 107 mmol/L 98-107 [facility] Creatine kinase [Enzymatic a ctivity/volume] in Serum or PlasmaOrdered By: PROVIDER TEMP on 06-19-2023 CK [Catalytic activity/Vol] 113 U/L 30-223 [facility] Creatinine [Mass/volume] in Serum or PlasmaOrdered By: PROVIDER TEMP on 06-19-2023 Creatinine [Mass/Vol] 0.95 mg/dL 0.70-1.30 [facility] Eosinophils Auto (Bld) [#/Vo l]Ordered By: PROVIDER TEMP on 06-19-2023 Eosinophils (Bld) [#/Vol] 0.0 10*3/uL 0.0-0.45 [facility] Eosinophils/100 WBC Auto (Bl d)Ordered By: PROVIDER TEMP on 06-19-2023 Eosinophils/100 WBC (Bld) 0.6 % . [facility] Erythrocyte distribution wid th Auto (RBC) [Ratio]Ordered By: PROVIDER TEMP on 06-19-2023 Erythrocyte distribution width (RBC) [Ratio] 14.9 % 12.0-14.8 [facility] Globulin Calc (S) [Mass/Vol] Ordered By: PROVIDER TEMP on 06-19-2023 Globulin (S) [Mass/Vol] 2.7 g/dL [facility] Glucose [Mass/volume] in Ser um or PlasmaOrdered By: PROVIDER TEMP on 06-19-2023 Glucose [Mass/Vol] 94 mg/dL 70-100 [facility] Comment on above: ADA recommended refe rence rangeRandom Glucose Reference Range is dependent on time and content of last meal. Glucose of more than 200 mg/dL in a nonstressed, ambulatory subject supports the diagnosis of Diabetes Mellitus. Hematocrit Auto (Bld) [Volum e fraction]Ordered By: PROVIDER TEMP on 06-19-2023 Hematocrit (Bld) [Volume fraction] 43.3 % 38.8-50.0 [facility] Hemoglobin [Mass/volume] in BloodOrdered By: PROVIDER TEMP on 06-19-2023 Hemoglobin (Bld) [Mass/Vol] 14.8 g/dL 13.0-17.0 [facility] Ketones Auto test strip (U) [Mass/Vol]Ordered By: PROVIDER TEMP on 06-19-2023 Ketones (U) [Mass/Vol] Negative Negative [facility] Leukocytes [#/volume] correc airam for nucleated erythrocytes in Blood by Automated counOrdered By: PROVIDER TEMP on 06-19-2023 WBC corrected for nucl RBC Auto (Bld) [#/Vol] 4.8 10*3/uL 4.1-10.5 [facility] Lymphocytes Auto (Bld) [#/Vo l]Ordered By: PROVIDER TEMP on 06-19-2023 Lymphocytes (Bld) [#/Vol] 1.0 10*3/uL 1.00-4.8 [facility] Lymphocytes/100 WBC Auto (Bl d)Ordered By: PROVIDER TEMP on 06-19-2023 Lymphocytes/100 WBC (Bld) 20.8 % . [facility] MCH Auto (RBC) [Entitic mass ]Ordered By: PROVIDER TEMP on 06-19-2023 MCH (RBC) [Entitic mass] 30.0 pg 27.5-35.2 [facility] MCHC Auto (RBC) [Mass/Vol]Or dered By: PROVIDER TEMP on 06-19-2023 MCHC (RBC) [Mass/Vol] 34.2 g/dL 32.5-35.6 [facility] MCV Auto (RBC) [Entitic vol] Ordered By: PROVIDER TEMP on 06-19-2023 MCV (RBC) [Entitic vol] 87.6 fL 83.5-101 [facility] Monocyte distribution width [Entitic volume] in Blood by AutomatedOrdered By: PROVIDER TEMP on 06-19-2023 Monocyte distribution width Auto (Bld) [Entitic vol] 24.01 % 0.00-20.00 [facility] Comment on above: For adults in ED, MD W > 20.0 may be associated with a higher risk of sepsis during the first 12 hrs of hospital admission Monocytes Auto (Bld) [#/Vol] Ordered By: PROVIDER TEMP on 06-19-2023 Monocytes (Bld) [#/Vol] 0.8 10*3/uL 0.0-0.8 [facility] Monocytes/100 WBC Auto (Bld) Ordered By: PROVIDER TEMP on 06-19-2023 Monocytes/100 WBC (Bld) 15.6 % . [facility] Neutrophils Auto (Bld) [#/Vo l]Ordered By: PROVIDER TEMP on 06-19-2023 Neutrophils (Bld) [#/Vol] 3.0 10*3/uL 1.8-7.7 [facility] Neutrophils/100 WBC Auto (Bl d)Ordered By: PROVIDER TEMP on 06-19-2023 Neutrophils/100 WBC (Bld) 62.6 % . [facility] No Panel InformationOrdered By: PROVIDER TEMP on 06-19-2023 Estimated GFR (CKD-EPI) > 60.0 mL/Min [facility] Creatinine Clearance (Chem 70.44 [facility] Nucleated erythrocytes [Pres ence] in Blood by Automated countOrdered By: PROVIDER TEMP on 06-19-2023 Nucleated RBC Auto Ql (Bld) 0.4 /100{WBC} 0-0.5 [facility] Platelet mean volume Auto (B ld) [Entitic vol]Ordered By: PROVIDER TEMP on 06-19-2023 Platelet mean volume (Bld) [Entitic vol] 7.9 fL 6.6-10.1 [facility] Platelets Auto (Bld) [#/Vol] Ordered By: PROVIDER TEMP on 06-19-2023 Platelets (Bld) [#/Vol] 154 10*3/uL 150-450 [facility] Potassium [Moles/volume] in Serum or PlasmaOrdered By: PROVIDER TEMP on 06-19-2023 Potassium [Moles/Vol] 3.8 mmol/L 3.5-5.1 [facility] Protein Auto test strip (U) [Mass/Vol]Ordered By: PROVIDER TEMP on 06-19-2023 Protein (U) [Mass/Vol] Negative Negative [facility] Protein [Mass/volume] in Ser um or PlasmaOrdered By: PROVIDER TEMP on 06-19-2023 Protein [Mass/Vol] 6.9 g/dL 6.4-8.9 [facility] RBC Auto (Bld) [#/Vol]Ordere d By: PROVIDER TEMP on 06-19-2023 RBC (Bld) [#/Vol] 4.94 10*6/uL 3.90-5.60 [facility] Serum or plasma albumin/glob ulin mass ratioOrdered By: PROVIDER TEMP on 06-19-2023 Albumin/Globulin [Mass ratio] 1.6 {ratio} [facility] Serum or plasma anion gap de terminationOrdered By: PROVIDER TEMP on 06-19-2023 Anion gap [Moles/Vol] 9.2 mmol/L 6.0-15.0 [facility] Sodium [Moles/volume] in Ser um or PlasmaOrdered By: PROVIDER TEMP on 06-19-2023 Sodium [Moles/Vol] 138 mmol/L 136-145 [facility] Troponin I.cardiac [Mass/vol ume] in Serum or Plasma by Detection limit <= 0.01 ng/Ordered By: PROVIDER TEMP on 06-19-2023 Troponin I.cardiac DL <= 0.01 ng/mL [Mass/Vol] 7.8 pg/mL 0.0-20.0 [facility] Urea nitrogen [Mass/volume] in Serum or PlasmaOrdered By: PROVIDER TEMP on 06-19-2023 Urea nitrogen [Mass/Vol] 18 mg/dL 7-25 [facility] Urine appearanceOrdered By: PROVIDER TEMP on 06-19-2023 Appearance (U) Clear Clear [facility] Urine colorOrdered By: SOLE JEANETTE TEMP on 06-19-2023 Color (U) Yellow Yellow [facility] Urine glucose measurement by automated test strip (mass/volume)Ordered By: PROVIDER TEMP on 06-19-2023 Glucose Auto test strip (U) [Mass/Vol] Normal mg/dL Normal [facility] Urine hemoglobin detection b y automated test stripOrdered By: PROVIDER TEMP on 06-19-2023 Hemoglobin Auto test strip Ql (U) Negative Negative [facility] Urine leukocyte esterase det ection by automated test stripOrdered By: PROVIDER TEMP on 06-19-2023 Leukocyte esterase Auto test strip Ql (U) Negative Negative [facility] Urine nitrite detection by a utomated test stripOrdered By: PROVIDER TEMP on 06-19-2023 Nitrite Auto test strip Ql (U) Negative Negative [facility] Urobilinogen Auto test strip (U) [Mass/Vol]Ordered By: PROVIDER TEMP on 06-19-2023 Urobilinogen (U) [Mass/Vol] Normal mg/dL Normal [facility] WBC Auto (Bld) [#/Vol]Ordere d By: PROVIDER TEMP on 06-19-2023 WBC (Bld) [#/Vol] 4.8 10*3/uL 4.1-10.5 [facility] pH Auto test strip (U)Ordere d By: PROVIDER TEMP on 06-19-2023 pH (U) 1.005 [pH] 1.001-1.03 0 [facility] pH (U) 5.5 [pH] 5.0-9.0 [facility] ECH echo transthoracicon [facility] echo transthoracic [facility] [place] [address] Echocardiogram Signed Patient: Yonatan Patel MR#: [id number] 6 : 1945 Acct:[id number] Age/Sex: 77 / M ADM Date: 03/01/23 Loc: Room: [address] [place] [address] Type: ADM INOo Attending Dr: Angely Lee DO Ordering Provider: Bobo Villagomez MD Date of Service: 03/01/23 [facility] echo transthoracic: Neuro Symptoms/Deficit Copies to: Sinan Jolly MD, [facility] Bobo Villagomez MD Weight: 188 lb Performed By: VIANEY Alvarado BSA: 2.1 m2 BP: 137/71 mmHg HR: 65 Reason For Study: Neuro Symptoms/Deficit History: Hyperlipidemia,Hypertension ,Former smoker Interpretation Summary Mild concentric left ventricular hypertrophy. Ejection Fraction = 60-65%. The left atrium appears mildly dilated. No thrombus, vegetation or mass is seen. There is no prior echocardiogram noted for this patient. Procedure/Quality: A two-dimensional transthoracic echocardiogram with color flow and Doppler was performed. The study was technically good in quality. There is no prior echocardiogram noted for this patient. Left Ventricle: Mild concentric left ventricular hypertrophy. Left ventricular systolic function is normal. Ejection Fraction = 60-65%. Left Atrium: The left atrium appears mildly dilated. The atrial septum appears normal. Right Atrium: The right atrium appears normal in size. Right Ventricle: The right ventricular size, thickness and function are normal. Aortic Valve: The aortic valve is trileaflet. The aortic valve is mildly sclerotic. Mitral Valve: The mitral valve is mildly sclerotic. Tricuspid Valve: The tricuspid valve is normal in structure and function. Pulmonic Valve: The pulmonic valve is not well seen, but is grossly normal. Arteries: The aortic root is normal size. Pericardium/Pleura: No pericardial effusion seen. There is no pleural effusion. IVC/Hepatic Viens: The IVC is normal in size with an inspiratory collapse of greater then 50%, suggesting normal right atrial pressure. Miscellaneous: No thrombus, vegetation or mass is seen. Measurements with Normals IVSd: 1.2 cm (0.7-1.1 cm)LVIDd: 4.5 cm (3.7-5.4 cm) LVPWd: 1.3 cm (0.7-1.1 cm)LVIDs: 3.2 cm (2.3-3.6 cm) LA dimension: 4.2 cm(2.3-4.0 cm)Ao root diam: 3.7 cm(2.0-3.6 cm) Doppler with Normals RVSP(TR): 31.9 mmHg (18-35mmHg) MV E max claire: 45.4 cm/sec(0.8-1.3m/s) MV A max claire: 54.8 cm/sec(0.0-0.0m/s) MV E/A: 0.83 (<1.5) MMode/2D Measurements Calculations RVDd: 3.7 cm FS: 29.1 % Ao root area: LVLd ap4: 7.9 cm TAPSE: 2.0 cm EDV(Teich): 10.7 cm2 EDV(MOD-sp4): RV S Claire: 91.0 ml 50.2 ml 15.5 cm/sec ESV(Teich): LVLs ap4: 6.3 cm 40.1 ml ESV(MOD-sp4): EF(Teich): 56.0 % 20.6 ml EF(MOD-sp4): 59.0 % __ SV(MOD-sp4): LAV(MOD-sp4): LA A4 area: 19.6 cm2 29.6 ml 51.5 ml LA length (vol): 6.0 cm Doppler Measurements Calculations MV dec time: 0.38 sec E/E' lat: MV dec slope: TV max P.2 27.0 mmHg E/E' med: 119.4 cm/sec2 4.9 __ TR max claire: 259.4 cm/sec TR max P.9 mmHg RAP systole: 5.0 mmHg Transcribed By: SCV Performed At: 03/02/23 0958 Signed By: Sinan Jolly MD, [facility] 03/02/23 1215 [facility] MR cervical spine wo conon 0 03-02-2023 MR cervical spine wo con [facility] [place] [address] MRI Report Signed Patient: Yonatan Patel MR#: [id number] 6 : 1945 Acct:[id number] Age/Sex: 77 / M ADM Date: 03/01/23 Loc: Room: [address] [place] [address] Type: ADM INOo Attending Dr: Angely Lee DO Copies to: DO Berhane Smith MD Ordering Provider: Berhane Trammell MD Date of Service: 03/02/23 MR/MR cervical spine wo con: Cervical myelopathy MR cervical spine wo con 03/01/2023 2:26 PM SIGNS AND SYMPTOMS: Numbness in left hand and forearm, left leg numbness PROTOCOL: Multiplanar multisequence MR images of the cervical spine were obtained without IV contrast COMPARISON: None. FINDINGS: The bones of the cervical spine are in anatomic alignment. There is preservation of vertebral body heights. There is moderate disc height loss at C3-C4, C5-C6, and C6-C7. There is Modic type I endplate edema at C6-C7. The cord is normal in signal. No epidural or paraspinous fluid collection is appreciated. The visualized paraspinous soft tissues are within normal limits. The prevertebral soft tissues are within normal limits. At C2-C3: There is right sided facet hypertrophy with mild right neural foraminal stenosis. No spinal canal narrowing. At C3-C4: There is a broad based disc bulge with facet and uncovertebral joint degenerative change with moderate spinal canal narrowing with severe right and moderate left neural foraminal stenosis. At C4-C5: Facet and uncovertebral joint degenerative changes contribute to mild bilateral neural foraminal narrowing. At C5-C6: There is a broad based disc bulge with facet and uncovertebral joint degenerative change. There is mild spinal canal stenosis with moderate bilateral neural foraminal narrowing. At C6-C7: There is a broad based disc bulge with facet hypertrophy and uncovertebral joint spurring. This contributes to moderate spinal canal stenosis with moderate right and mild left neural foraminal narrowing. At C7-T1: There is a normal disc, central canal, and neural foramen. Mild bilateral facet hypertrophy is noted. MR/MR cervical spine wo con IMPRESSION: At C3-C4: There is a broad based disc bulge with facet and uncovertebral joint degenerative change with moderate spinal canal narrowing with severe right and moderate left neural foraminal stenosis. At C5-C6: There is a broad based disc bulge with facet and uncovertebral joint degenerative change. There is mild spinal canal stenosis with moderate bilateral neural foraminal narrowing. At C6-C7: There is a broad based disc bulge with facet hypertrophy and uncovertebral joint spurring. This contributes to moderate spinal canal stenosis with moderate right and mild left neural foraminal narrowing. No cord compression or cord signal abnormality. Impression dictated by: Daisha Fernandez M.D.03/02/2023 5:11 PM Dictation Location: [place] [address] Transcribed By: [facility] 03/02/23 171 Dictated By: Daisha Fernandez II, MD 03/02/23 170 Signed By: 03/02/23 171 [facility] MR lumbar spine wo [facility] lumbar spine wo [facility] [place] [address] [place] [address] MRI Report Signed Patient: Yonatan Patel MR#: [id number] 6 : 1945 Acct:[id number] Age/Sex: 77 / M ADM Date: 03/01/23 Loc: Room: [address] [place] [address] Type: ADM INOo Attending Dr: Angely Lee DO Copies to: DO Berhane Smithct,MD Ordering Provider: Berhane Trammell MD Date of Service: 03/02/23 MR/MR lumbar spine wo con: Lower extremity weakness MR lumbar spine wo con 03/01/2023 2:26 PM SIGNS AND SYMPTOMS: Left leg and arm numbness. PROTOCOL: Multiplanar multisequence MR images of the lumbar spine were obtained without IV contrast COMPARISON: None. FINDINGS: The bones of the lumbar spine are in anatomic alignment. There is preservation of vertebral body heights. There is moderate disc height loss at L1-L2 and L2-L3. There is mild disc height loss throughout otherwise. There is Modic type I endplate edema at L3-L4 and L4-L5 with Schmorl's information at the superior endplate of L5. The conus terminates at the inferior endplate of the L1 vertebral body level. No epidural or paraspinous fluid collection is appreciated. At T12-L1: There is a normal disc, central canal, and neural foramen. At L1-L2: There is a circumferential disc bulge with facet hypertrophy contributing to mild spinal canal narrowing with mild left and moderate right neural foraminal narrowing. At L2-L3: There is a circumferential disc bulge with facet hypertrophy. There is mild spinal canal stenosis with moderate bilateral neural foraminal narrowing. At L3-L4: There is a circumferential disc bulge with facet hypertrophy and ligamentum flavum thickening contributing to moderate to severe narrowing of spinal canal. There is mild right and moderate left neural foraminal stenosis. At L4-L5: There is a broad-based disc bulge with facet and ligament flavum degenerative change contributing to moderate to severe narrowing of the spinal canal with mild bilateral neural foraminal narrowing. At L5-S1: There is a circumferential disc bulge with facet hypertrophy and small bilateral facet effusions. There is moderate spinal canal stenosis with moderate bilateral neural foraminal narrowing. MR/MR lumbar spine wo con IMPRESSION: At L3-L4: There is a circumferential disc bulge with facet hypertrophy and ligamentum flavum thickening contributing to moderate to severe narrowing of spinal canal. There is mild right and moderate left neural foraminal stenosis. At L4-L5: There is a broad-based disc bulge with facet and ligament flavum degenerative change contributing to moderate to severe narrowing of the spinal canal with mild bilateral neural foraminal narrowing. Lesser degrees of degenerative changes are noted, as above. Impression dictated by: Daisha Fernandez M.D.03/02/2023 5:18 PM Dictation Location: [place] [address] Transcribed By: [facility] 03/02/231717 Dictated By: Daisha Fernandez II, MD 03/02/231710 Signed By: 03/02/231717 Normal [facility] A1C with Estimated Average [place] 03-01-2023 Glucose [Mass/Vol] 123 mg/dL Normal [facility] Comment on above: Order Comment: Comme nt add on Result Comment: PERF ORMED BY: [place] [address] PATHOLOGIST PER DIEM PHYSICAL THERAPIST HARRY MARTI M.D. Performed By: #### A 1C [facility] Krista, LIPID #### [facility] [address] [place] [address] HbA1c (Bld) [Mass fraction] 5.9 % High 4.3-5.6 [facility] Comment on above: Order Comment: Comme nt add on Result Comment: Incr eased risk for diabetes: 5.7 - 6.4 diabetes: >6.4 glycemic control for adults with diabetes: <7.0 Performed By: #### A 1C [facility] Krista, LIPID #### [facility] [address] [place] [address] Activated partial thrombopla stin time (aPTT) in platelet poor plasma by coagulation aOrdered By: Alejo Lynn on 03-01-2023 aPTT Coag (PPP) [Time] 27.2 s 25.1-36.[address] [facility] Alanine aminotransferase [En zymatic activity/volume] in Serum or PlasmaOrdered By: Alejo Lynn on 03-01-2023 ALT [Catalytic activity/Vol] 34 U/L 7-52 [facility] Albumin [Mass/volume] in Ser um or Plasma by Bromocresol green (BCG) dye binding methoOrdered By: Alejo Lynn on 03-01-2023 Albumin BCG dye [Mass/Vol] 4.4 g/dL 3.5-5.7 [facility] Alkaline phosphatase [Enzyma tic activity/volume] in Serum or PlasmaOrdered By: Alejo Lynn on 03-01-2023 ALP [Catalytic activity/Vol] 61 U/L 34-104 [facility] Aspartate aminotransferase [ Enzymatic activity/volume] in Serum or PlasmaOrdered By: Alejo Lynn on 03-01-2023 AST [Catalytic activity/Vol] 30 U/L 13-39 [facility] B-Type Natriuretic Peptideon 03-01-2023 Natriuretic peptide B (Bld) [Mass/Vol] 96.0 pg/mL Normal 5-100 [facility] Comment on above: Result Comment: PERF ORMED BY: [place] [address] PATHOLOGIST PER DIEM PHYSICAL THERAPIST HARRY MARTI M.D. Performed By: #### H S TROP, CMP, CK, CBC #### [address] Basic Metabolic Panelon 02-14 Anion gap [Moles/Vol] 10.3 mmol/L Normal 6.0-15.[address] [facility] Comment on above: Performed By: #### H S TROP, CMP, CK, CBC #### [facility] [address] [place] [address] [place] Calcium [Mass/Vol] 9.7 mg/dL Normal 8.6-10.3 [facility] Comment on above: Performed By: #### H S TROP, CMP, CK, CBC #### [facility] [address] [place] [address] [place] Chloride [Moles/Vol] 107 mmol/L Normal 98-107 [facility] Comment on above: Performed By: #### H S TROP, CMP, CK, CBC #### [facility] [address] [place] [address] [place] CO2 [Moles/Vol] 26.0 mmol/L Normal 21.0-31.0 [facility] Comment on above: Performed By: #### H S TROP, CMP, CK, CBC #### [place] [address] [place] Creatinine [Mass/Vol] 0.91 mg/dL Normal 0.70-1.30 [facility] Comment on above: Performed By: #### H S TROP, CMP, CK, CBC #### [facility] [address] Creatinine Clr Calc Pharmacy 76.53 [facility] Comment on above: Result Comment: PERF ORMED BY: [place] [address] PATHOLOGIST PER DIEM PHYSICAL THERAPIST HARRY MARTI M.D. Performed By: #### H S TROP, CMP, CK, CBC #### [facility] [address] [place] [address] [place] GFR/1.73 sq M.predicted MDRD (S/P/Bld) [Vol rate/Area] mL/min/{1.73_m2} [facility] Comment on above: Performed By: #### H S TROP, CMP, CK, CBC #### [facility] [address] [place] [address] [place] Glucose [Mass/Vol] 106 mg/dL High 70-100 [facility] Comment on above: Result Comment: [place] Glucose Reference Range is dependent on time and content of last meal. Glucose of more than 200 mg/dL in a nonstressed, ambulatory subject supports the diagnosis of Diabetes Mellitus. ADA recommended reference range Performed By: #### H S TROP, CMP, CK, CBC #### [facility] [address] [place] [address] [place] Potassium [Moles/Vol] 4.3 mmol/L Normal 3.5-5.1 [facility] Comment on above: Performed By: #### H S TROP, CMP, CK, CBC #### [facility] [address] [place] [address] [place] Sodium [Moles/Vol] 139 mmol/L Normal 136-145 [facility] Comment on above: Performed By: #### H S TROP, CMP, CK, CBC #### [facility] [address] [place] [address] [place] Urea nitrogen [Mass/Vol] 16 mg/dL Normal 7-25 [facility] Comment on above: Performed By: #### H S TROP, CMP, CK, CBC #### [facility] [address] Basophils Auto (Bld) [#/Vol] Ordered By: Alejo Lynn on 03-01-2023 Basophils (Bld) [#/Vol] 0.0 10*3/uL 0.0-0.2 [facility] Basophils/100 WBC Auto (Bld) Ordered By: Alejo Lynn on 03-01-2023 Basophils/100 WBC (Bld) 0.7 % . [facility] Bilirubin Test strip Ql (U)O rdered By: Alejo Lynn on 03-01-2023 Bilirubin Ql (U) Negative Negative [facility] Bilirubin.direct [Mass/volum e] in Serum or PlasmaOrdered By: Alejo Lynn on 03-01-2023 Bilirubin.direct [Mass/Vol] 0.30 mg/dL 0.03-0.18 [facility] Bilirubin.total [Mass/volume ] in Serum or PlasmaOrdered By: Alejo Lynn on 03-01-2023 Bilirubin [Mass/Vol] 1.7 mg/dL 0.3-1.0 [facility] Comment on above: Samples from patient s who have taken Naproxen have shown spurious elevation in Total Bilirubin levels. A metabolite of Naproxen, O-desmethylnaproxen, has been shown to interfere with the [place]ar[place]-Grof method for measuring Total Bilirubin. CT head stroke alert wo cono n 03-01-2023 CT head stroke alert wo con [facility] [place] [address] [place], [place] [id number] CT Scan Report Signed Patient: Yonatan Patel MR#: [id number] 6 : 1945 Acct:[id number] Age/Sex: 77 / M ADM Date: 03/01/23 Loc: ER Room: Type: [facility] ER Attending Dr: Copies to: Alejo Lynn DO Ordering Provider: Alejo Lynn DO Date of Service: 03/01/23 CT/CT head stroke alert wo con: stroke symptoms CT BRAIN WITHOUT CONTRAST - stroke alert: CLINICAL HISTORY: Bilateral lower extremity numbness. COMPARISON: None TECHNIQUE: Contiguous axial unenhanced images were obtained through the brain. This CT exam was performed using one or more following dose reduction techniques: Automated exposure control, adjustment of the mA and/or kV according to patient size, or use of iterative reconstruction technique. FINDINGS: There is generalized atrophy. The ventricles are normal in size and position. Mild microvascular changes are noted. There are no additional areas of abnormal attenuation. There is no hemorrhage, mass effect or extra-axial collections. The imaged paranasal sinuses and mastoid air cells are clear. There is carotid siphon plaque. CT/CT head stroke alert wo con IMPRESSION: ATROPHY AND CHRONIC MICROVASCULAR CHANGES. NO DEFINITE ACUTE INTRACRANIAL ABNORMALITY. FOLLOW-UP IS RECOMMENDED, SYMPTOMS WARRANT. COMMENT: Preliminary report was provided at 0730 hours. Impression dictated by: Selena Reid M.D.03/01/2023 8:13 AM Dictation Location: [place] [address] Transcribed By: [facility] 03/01/23 0813 Dictated By: Selena Reid MD 03/01/23 0807 Signed By: 03/01/23 0813 Normal [facility] Calcium [Mass/volume] in Ser um or PlasmaOrdered By: Alejo Lynn on 03-01-2023 Calcium [Mass/Vol] 9.7 mg/dL 8.6-10.3 [facility] Carbon dioxide, total [Moles /volume] in Serum or PlasmaOrdered By: Alejo Lynn on 03-01-2023 CO2 [Moles/Vol] 26.0 mmol/L 21.0-31.0 [facility] Chloride [Moles/volume] in S raymundo or PlasmaOrdered By: Alejo Lynn on 03-01-2023 Chloride [Moles/Vol] 107 mmol/L 98-107 [facility] Color Auto (U)Ordered By: Franco red Leah on 03-01-2023 Color (U) Yellow Yellow [facility] Complete Blood Count Auto Di ffon 03-01-2023 Basophils (Bld) [#/Vol] 0.0 10*3/uL Normal 0.0-0.2 [facility] Comment on above: Result Comment: PERF ORMED BY: [place] [address] PATHOLOGIST PER DIEM PHYSICAL THERAPIST HARRY MATRI M.D. Performed By: #### H S TROP, CMP, CK, CBC #### [address] Basophils/100 WBC (Bld) 0.7 % Normal . [facility] Comment on above: Performed By: #### H S TROP, CMP, CK, CBC #### [address] Eosinophils (Bld) [#/Vol] 0.1 10*3/uL Normal 0.0-0.45 [facility] Comment on above: Performed By: #### H S TROP, CMP, CK, CBC #### [address] Eosinophils/100 WBC (Bld) 1.4 % Normal . [facility] Comment on above: Performed By: #### H S TROP, CMP, CK, CBC #### [address] Erythrocyte distribution width (RBC) [Ratio] 14.5 % Normal 12.0-14.8 [facility] Comment on above: Performed By: #### H S TROP, CMP, CK, CBC #### [address] Hematocrit (Bld) [Volume fraction] 43.2 % Normal 38.8-50.0 [facility] Comment on above: Performed By: #### H S TROP, CMP, CK, CBC #### [address] Hemoglobin (Bld) [Mass/Vol] 14.9 g/dL Normal 13.0-17.0 [facility] Comment on above: Performed By: #### H S TROP, CMP, CK, CBC #### [address] Lymphocytes (Bld) [#/Vol] 1.3 10*3/uL Normal 1.00-4.8 [facility] Comment on above: Performed By: #### H S TROP, CMP, CK, CBC #### [address] Lymphocytes/100 WBC (Bld) 23.7 % Normal . [facility] Comment on above: Performed By: #### H S TROP, CMP, CK, CBC #### [address] MCH (RBC) [Entitic mass] 29.6 pg Normal 27.5-35.2 [facility] Comment on above: Performed By: #### H S TROP, CMP, CK, CBC #### [address] MCV (RBC) [Entitic vol] 86.1 fL Normal 83.5-101 [facility] Comment on above: Performed By: #### H S TROP, CMP, CK, CBC #### [address] Mean Corpuscular HGB Conc 34.4 g/dL Normal 32.5-35.6 [facility] Comment on above: Performed By: #### H S TROP, CMP, CK, CBC #### [address] Monocytes (Bld) [#/Vol] 0.4 10*3/uL Normal 0.0-0.8 [facility] Comment on above: Performed By: #### H S TROP, CMP, CK, CBC #### [place] [address] [place] Monocytes/100 WBC (Bld) 17.75 % Normal 0.00-20.00 [facility] Comment on above: Performed By: #### H S TROP, CMP, CK, CBC #### [address] Monocytes/100 WBC (Bld) 8.3 % Normal . [facility] Comment on above: Performed By: #### H S TROP, CMP, CK, CBC #### [address] Neutrophils (Bld) [#/Vol] 3.5 10*3/uL Normal 1.8-7.7 [facility] Comment on above: Performed By: #### H S TROP, CMP, CK, CBC #### [address] Neutrophils/100 WBC (Bld) 65.9 % Normal . [facility] Comment on above: Performed By: #### H S TROP, CMP, CK, CBC #### [address] NRBC% 0.3 /100{WBC} Normal 0-0.5 [facility] Comment on above: Performed By: #### H S TROP, CMP, CK, CBC #### [address] Platelet mean volume (Bld) [Entitic vol] 8.0 fL Normal 6.6-10.1 [facility] Comment on above: Performed By: #### H S TROP, CMP, CK, CBC #### [address] Platelets (Bld) [#/Vol] 143 10*3/uL Low 150-450 [facility] Comment on above: Performed By: #### H S TROP, CMP, CK, CBC #### [address] RBC (Bld) [#/Vol] 5.02 10*6/uL Normal 3.90-5.60 [facility] Comment on above: Performed By: #### H S TROP, CMP, CK, CBC #### [address] WBC (Bld) [#/Vol] 5.4 10*3/uL Normal 4.1-10.5 [facility] Comment on above: Performed By: #### H S TROP, CMP, CK, CBC #### [address] Creatine Kinaseon 03-01-2023 CK [Catalytic activity/Vol] 178 U/L Normal 30-223 [facility] Comment on above: Performed By: #### H S TROP, CMP, CK, CBC #### [facility] [address] [place] [id number] [facility] Creatine kinase [Enzymatic a ctivity/volume] in Serum or PlasmaOrdered By: Alejo Lynn on 03-01-2023 CK [Catalytic activity/Vol] 178 U/L [facility] Creatinine [Mass/volume] in Serum or PlasmaOrdered By: Alejo Lynn on 03-01-2023 Creatinine [Mass/Vol] 0.91 mg/dL 0.70-1.30 [facility] ECG 12 lead ECGon 03-01-2023 ECG 12 lead ECG [facility] [place] [address] [place] [address] Electrocardiograph Report Signed Patient: Yonatan Patel MR#: [id number] 6 : 1945 Acct:[id number] Age/Sex: 77 / M ADM Date: 03/01/23 Loc: Room: [address] [place] [address] Type: ADM INOo Attending Dr: Bobo Villagomez MD Ordering Provider: Alejo Lynn DO Date of Service: 03/01/23 ECG/ECG 12 lead ECG: Neuro Symptoms/Deficit Copies to: Test Reason : Blood Pressure : 177/087 mmHG Vent. Rate : 073 BPM Atrial Rate : 073 BPM P-R Int : 204 ms QRS Dur : 070 ms QT Int : 372 ms P-R-T Axes : 079 074 001 degrees QTc Int : 409 ms Normal sinus rhythm Septal infarct (cited on or before 01-MAR-2023) Abnormal ECG When compared with ECG of 01-MAR-2023 07:00, (Unconfirmed) premature supraventricular complexes are no longer present Confirmed by Alejo Lynn DO ([id number]) on 03/01/2023 3:12:57 PM Referred By: Electronically Signed By:Alejo Lynn DO Transcribed By: [facility] Signed By Alejo Lynn DO 3 1513 Normal [facility] Eosinophils Auto (Bld) [#/Vo l]Ordered By: Alejo Lynn on 03-01-2023 Eosinophils (Bld) [#/Vol] 0.1 10*3/uL 0.0-0.45 [facility] Eosinophils/100 WBC Auto (Bl d)Ordered By: Alejo Lynn on 03-01-2023 Eosinophils/100 WBC (Bld) 1.4 % . [facility] Erythrocyte distribution wid th Auto (RBC) [Ratio]Ordered By: Alejo Lynn on 03-01-2023 Erythrocyte distribution width (RBC) [Ratio] 14.5 % 12.0-14.8 [facility] Globulin Calc (S) [Mass/Vol] Ordered By: Alejo Lynn on 03-01-2023 Globulin (S) [Mass/Vol] 2.3 g/dL [facility] Glucose [Mass/volume] in Ser um or PlasmaOrdered By: Alejo Lynn on 03-01-2023 Glucose [Mass/Vol] 106 mg/dL 70-100 [facility] Comment on above: ADA recommended refe rence rangeRandom Glucose Reference Range is dependent on time and content of last meal. Glucose of more than 200 mg/dL in a nonstressed, ambulatory subject supports the diagnosis of Diabetes Mellitus. Hematocrit Auto (Bld) [Volum e fraction]Ordered By: Alejo Lynn on 03-01-2023 Hematocrit (Bld) [Volume fraction] 43.2 % 38.8-50.0 [facility] Hemoglobin [Mass/volume] in BloodOrdered By: Alejo Lynn on 03-01-2023 Hemoglobin (Bld) [Mass/Vol] 14.9 g/dL 13.0-17.0 [facility] Hepatic Panelon 03-01-2023 Albumin [Mass/Vol] 4.4 g/dL Normal 3.5-5.7 [facility] Comment on above: Performed By: #### H S TROP, CMP, CK, CBC #### [facility] [address] [place] [address] [place] Albumin/Globulin [Mass ratio] 1.9 {ratio} Normal [facility] Comment on above: Performed By: #### H S TROP, CMP, CK, CBC #### [facility] [address] [place] [address] [place] ALP [Catalytic activity/Vol] 61 U/L Normal 34-104 [facility] Comment on above: Performed By: #### H S TROP, CMP, CK, CBC #### [facility] [address] ALT [Catalytic activity/Vol] 34 U/L Normal 7-52 [facility] Comment on above: Performed By: #### H S TROP, CMP, CK, CBC #### [facility] [address] AST [Catalytic activity/Vol] 30 U/L Normal 13-39 [facility] Comment on above: Performed By: #### H S TROP, CMP, CK, CBC #### [facility] [address] Bilirubin [Mass/Vol] 1.7 mg/dL High 0.3-1.0 [facility] Comment on above: Result Comment: Samp les from patients who have taken Naproxen have shown spurious elevation in Total Bilirubin levels. A metabolite of Naproxen, O-desmethylnaproxen, has been shown to interfere with the Jendrassik-Grof method for measuring Total Bilirubin. Performed By: #### H S TROP, CMP, CK, CBC #### [address] Bilirubin,Indirect 1.4 mg/dL Normal [facility] Comment on above: Performed By: #### H S TROP, CMP, CK, CBC #### [facility] [address] Bilirubin.indirect [Mass/Vol] 0.30 mg/dL High 0.03-0.18 [facility] Comment on above: Performed By: #### H S TROP, CMP, CK, CBC #### [facility] [address] Globulin (S) [Mass/Vol] 2.3 g/dL Normal [facility] Comment on above: Performed By: #### H S TROP, CMP, CK, CBC #### [facility] [address] Protein [Mass/Vol] 6.7 g/dL Normal 6.4-8.9 [facility] Comment on above: Performed By: #### H S TROP, CMP, CK, CBC #### [facility] [address] Ketones Auto test strip (U) [Mass/Vol]Ordered By: Alejo Lynn on 03-01-2023 Ketones (U) [Mass/Vol] Negative Negative [facility] Laboratory - CoagulationOrde red By: Alejo Lynn on 03-01-2023 PT Coag (PPP) [Time] 11.6 s 9.0-12.9 [facility] Leukocytes [#/volume] correc airam for nucleated erythrocytes in Blood by Automated counOrdered By: Alejo Lynn on 03-01-2023 WBC corrected for nucl RBC Auto (Bld) [#/Vol] 5.4 10*3/uL 4.1-10.5 [facility] Lipid Panelon 03-01-2023 Cholesterol [Mass/Vol] 96 mg/dL Low 140-[address] [facility] Comment on above: Order Comment: Comme nt add on Result Comment: Chol less than 200 mg/dl low risk Chol 201-239 mg/dl borderline risk Chol 240 mg/dl and greater high risk Performed By: #### A 1C WT eA, LIPID #### [facility] [address] Cholesterol in HDL [Mass/Vol] 36 mg/dL Normal 23-92 [facility] Comment on above: Order Comment: Comme nt add on Result Comment: HDL CHOL ATP-III CLASSIFICATION Cardiovascular Risk HDL > or equal to 60 mg/dL LOW HDL < 40 mg/dL HIGH Performed By: #### A 1C WT eA, LIPID #### [facility] [address] Cholesterol.total/Chol esterol in HDL [Mass ratio] 2.7 {ratio} Normal <5.0 [facility] Comment on above: Order Comment: Comme nt add on Result Comment: PERF ORMED BY: [place] [address] PATHOLOGIST PER DIEM PHYSICAL THERAPIST HARRY MARTI M.D. Performed By: #### A 1C WT eA, LIPID #### [facility] [address] LDL Cholesterol,Calculated 39 mg/dL Normal 0-100 [facility] Comment on above: Order Comment: Comme nt add on Result Comment: LDL ATP III CLASSIFICATION LDL less than 100 mg/dL Optimal LDL 100-129 mg/dL Near or above optimal LDL 130-159 mg/dL Borderline high LDL 160-189 mg/dL High LDL greater than 189 mg/dL Very high Performed By: #### A 1C WT eA, LIPID #### [facility] [address] Triglyceride w/Reflex 106 mg/dL Normal 0-149 [facility] Comment on above: Order Comment: Comme nt add on Result Comment: TRIG ATP III CLASSIFICATION TRIG less than 150 mg/dL Normal TRIG 150-199 mg/dL Borderline high TRIG 200-500 mg/dL High TRIG greater than 500 mg/dL Very high Standard traceable to the Center for Disease Conrtrol and Prevention (CDC) test method. Performed By: #### A 1C WT eA, LIPID #### [facility] [address] VLDL CHOLESTEROL 21 mg/dL Normal [facility] Comment on above: Order Comment: Comme nt add on Performed By: #### A 1C WT eA, LIPID #### [facility] [address] [place] [address] [place] Lymphocytes Auto (Bld) [#/Vo l]Ordered By: Alejo Lynn on 03-01-2023 Lymphocytes (Bld) [#/Vol] 1.3 10*3/uL 1.00-4.8 [facility] Lymphocytes/100 WBC Auto (Bl d)Ordered By: Alejo Lynn on 03-01-2023 Lymphocytes/100 WBC (Bld) 23.7 % . [facility] MCH Auto (RBC) [Entitic mass ]Ordered By: Alejo Lynn on 03-01-2023 MCH (RBC) [Entitic mass] 29.6 pg 27.5-35.2 [facility] MCHC Auto (RBC) [Mass/Vol]Or dered By: Alejo Lynn on 03-01-2023 MCHC (RBC) [Mass/Vol] 34.4 g/dL 32.5-35.6 [facility] MCV Auto (RBC) [Entitic vol] Ordered By: Alejo Lynn on 03-01-2023 MCV (RBC) [Entitic vol] 86.1 fL 83.5-101 [facility] Monocyte distribution width [Entitic volume] in Blood by AutomatedOrdered By: Alejo Lynn on 03-01-2023 Monocyte distribution width Auto (Bld) [Entitic vol] 17.75 % 0.00-20.00 [facility] Monocytes Auto (Bld) [#/Vol] Ordered By: Alejo Lynn on 03-01-2023 Monocytes (Bld) [#/Vol] 0.4 10*3/uL 0.0-0.8 [facility] Monocytes/100 WBC Auto (Bld) Ordered By: Alejo Lynn on 03-01-2023 Monocytes/100 WBC (Bld) 8.3 % . [facility] Natriuretic peptide B [Mass/ Vol]Ordered By: Alejo Lynn on 03-01-2023 Natriuretic peptide B (Bld) [Mass/Vol] 96.0 pg/mL 5-100 [facility] Neutrophils Auto (Bld) [#/Vo l]Ordered By: Alejo Lynn on 03-01-2023 Neutrophils (Bld) [#/Vol] 3.5 10*3/uL 1.8-7.7 [facility] Neutrophils/100 WBC Auto (Bl d)Ordered By: Alejo Lynn on 03-01-2023 Neutrophils/100 WBC (Bld) 65.9 % . [facility] Nitrite Test strip Ql (U)Ord ered By: Alejo Lynn on 03-01-2023 Nitrite Ql (U) Negative Negative [facility] No Panel InformationOrdered By: Alejo Lynn on 03-01-2023 Estimated GFR (CKD-EPI) > 60.0 mL/Min [facility] Creatinine Clearance (Chem 76.53 [facility] Nucleated erythrocytes [Pres ence] in Blood by Automated countOrdered By: Alejo Lynn on 03-01-2023 Nucleated RBC Auto Ql (Bld) 0.3 /100{WBC} 0-0.5 [facility] Partial Thromboplastin Timeo n 03-01-2023 aPTT Coag (Bld) [Time] 27.2 s Normal 25.1-36.[address] [facility] Comment on above: Result Comment: PERF ORMED BY: [facility] [address] [place] [address] PATHOLOGIST PER DIEM PHYSICAL THERAPIST HARRY MARTI M.D. Performed By: #### H S TROP, CMP, CK, CBC #### [facility] [address] Platelet mean volume Auto (B ld) [Entitic vol]Ordered By: Alejo Lynn on 03-01-2023 Platelet mean volume (Bld) [Entitic vol] 8.0 fL 6.6-10.1 [facility] Platelet poor plasma interna tional normalized ratio (INR) by coagulation assay (relatOrdered By: Alejo Lynn on 03-01-2023 INR Coag (PPP) [Relative time] 1.0 {INR} [facility] Comment on above: INR Therapeutic Rang e A) Pre- and Peroperative OAT started two weeks before surgery. NOT HIP SURGERY: 1.5 - 2.5 HIP SURGERY: 2 - 3B) Primary and secondary prevention of venous THROMBOSIS: 2 - 3C) Active venous thrombosis, pulmonary embolismand prevention of recurrent venous thrombosis: 2 - 3D) Prevention of arterial thromboembolismincluding patients with mechanical heart valves: 3 - 4.5 Platelets Auto (Bld) [#/Vol] Ordered By: Alejo Lynn on 03-01-2023 Platelets (Bld) [#/Vol] 143 10*3/uL 150-450 [facility] Potassium [Moles/volume] in Serum or PlasmaOrdered By: Alejo Lynn on 03-01-2023 Potassium [Moles/Vol] 4.3 mmol/L 3.5-5.1 [facility] Protein Auto test strip (U) [Mass/Vol]Ordered By: Alejo Lynn on 03-01-2023 Protein (U) [Mass/Vol] Negative Negative [facility] Protein [Mass/volume] in Ser um or PlasmaOrdered By: Alejo Lynn on 03-01-2023 Protein [Mass/Vol] 6.7 g/dL 6.4-8.9 [facility] Prothrombin Time INRon 03-01 INR Coag (PPP) [Relative time] 1.0 {INR} Normal [facility] Comment on above: Result Comment: INR Therapeutic Range A) Pre- and Peroperative OAT started two weeks before surgery. NOT HIP SURGERY: 1.5 - 2.5 HIP SURGERY: 2 - 3 B) Primary and secondary prevention of venous THROMBOSIS: 2 - 3 C) Active venous thrombosis, pulmonary embolism and prevention of recurrent venous thrombosis: 2 - 3 D) Prevention of arterial thromboembolism including patients with mechanical heart valves: 3 - 4.5 Performed By: #### H S TROP, CMP, CK, CBC #### [facility] [address] PT Coag (PPP) [Time] 11.6 s Normal 9.0-12.9 [facility] Comment on above: Performed By: #### H S TROP, CMP, CK, CBC #### [facility] [address] RBC Auto (Bld) [#/Vol]Ordere d By: Alejo Lynn on 03-01-2023 RBC (Bld) [#/Vol] 5.02 10*6/uL 3.90-5.60 [facility] Serum or plasma albumin/glob ulin mass ratioOrdered By: Alejo Lynn on 03-01-2023 Albumin/Globulin [Mass ratio] 1.9 {ratio} [facility] Serum or plasma anion gap de terminationOrdered By: Alejo Lynn on 03-01-2023 Anion gap [Moles/Vol] 10.3 mmol/L 6.0-15.[address] [facility] Serum or plasma non-glucuron idated bilirubin measurement (mass/volume)Ordered By: Alejo Lynn on 03-01-2023 Bilirubin.indirect [Mass/Vol] 1.4 mg/dL [facility] Sodium [Moles/volume] in Ser um or PlasmaOrdered By: Alejo Lynn on 03-01-2023 Sodium [Moles/Vol] 139 mmol/L 136-145 [facility] Specific gravity Auto test s trip (U) [Rel density]Ordered By: Alejo Lynn on 03-01-2023 Specific gravity (U) [Rel density] 1.014 1.001-1.03 0 [facility] Troponin I High Sensitivityo n 03-01-2023 Troponin I High Sensitivity 8.1 pg/mL Normal 0.0-20.0 [facility] Comment on above: Result Comment: PERF ORMED BY: [place] [address] PATHOLOGIST PER DIEM PHYSICAL THERAPIST HARRY MARTI M.D. Performed By: #### H S TROP, CMP, CK, CBC #### [facility] [address] [place] [address] Troponin I.cardiac [Mass/vol ume] in Serum or Plasma by Detection limit <= 0.01 ng/Ordered By: Alejo Lynn on 03-01-2023 Troponin I.cardiac DL <= 0.01 ng/mL [Mass/Vol] 8.1 pg/mL 0.0-20.0 [facility] Urea nitrogen [Mass/volume] in Serum or PlasmaOrdered By: Alejo Lynn on 03-01-2023 Urea nitrogen [Mass/Vol] 16 mg/dL 7-25 [facility] Urinalysison 03-01-2023 Appearance (U) Clear Normal Clear [facility] Comment on above: Order Comment: Name Collection Type:: Clean-Voided Midstream Performed By: #### U A #### [facility] [address] [place] [address] Bilirubin,Urine Negative Normal Negative [facility] Comment on above: Order Comment: Name Collection Type:: Clean-Voided Midstream Performed By: #### U A #### [facility] [address] [place] [address] Color (U) Yellow Normal Yellow [facility] Comment on above: Order Comment: Name Collection Type:: Clean-Voided Midstream Performed By: #### U A #### [facility] [address] [place] [address] Glucose Ql (U) Normal Normal Normal [facility] Comment on above: Order Comment: Name Collection Type:: Clean-Voided Midstream Performed By: #### U A #### [address] Ketones Ql (U) Negative Normal Negative [facility] Comment on above: Order Comment: Name Collection Type:: Clean-Voided Midstream Performed By: #### U A #### [address] Leukocyte esterase Test strip Ql (U) Negative Normal Negative [facility] Comment on above: Order Comment: Name Collection Type:: Clean-Voided Midstream Performed By: #### U A #### [address] Nitrite,Urine Negative Normal Negative [facility] Comment on above: Order Comment: Name Collection Type:: Clean-Voided Midstream Performed By: #### U A #### [address] Occult Blood,Urine Negative Normal Negative [facility] Comment on above: Order Comment: Name Collection Type:: Clean-Voided Midstream Result Comment: PERF ORMED BY: [place] [address] PATHOLOGIST PER DIEM PHYSICAL THERAPIST HARRY MARTI M.D. Performed By: #### U A #### [address] pH (U) 7.5 [pH] Normal 5.0-9.0 [facility] Comment on above: Order Comment: Name Collection Type:: Clean-Voided Midstream Performed By: #### U A #### [address] Protein,Urine Negative Normal Negative [facility] Comment on above: Order Comment: Name Collection Type:: Clean-Voided Midstream Performed By: #### U A #### [address] Specificy [place],Urine 1.014 Normal 1.001-1.03 0 [facility] Comment on above: Order Comment: Name Collection Type:: Clean-Voided Midstream Performed By: #### U A #### [facility] [address] [place] [address] [place] Urobilinogen,Urine Normal Normal Normal [facility] Comment on above: Order Comment: Name Collection Type:: Clean-Voided Midstream Performed By: #### U A #### [facility] [address] [place] [address] [place] Urine clarity by refractomet ry automatedOrdered By: Alejo Lynn on 03-01-2023 Clarity Refractometry automated (U) Clear Clear [facility] Urine glucose measurement by automated test strip (mass/volume)Ordered By: Alejo Lynn on 03-01-2023 Glucose Auto test strip (U) [Mass/Vol] Normal mg/dL Normal [facility] Urine hemoglobin detection b y automated test stripOrdered By: Alejo Lynn on 03-01-2023 Hemoglobin Auto test strip Ql (U) Negative Negative [facility] Urine leukocyte esterase det ection by automated test stripOrdered By: Alejo Lynn on 03-01-2023 Leukocyte esterase Auto test strip Ql (U) Negative Negative [facility] Urobilinogen Auto test strip (U) [Mass/Vol]Ordered By: Alejo Lynn on 03-01-2023 Urobilinogen (U) [Mass/Vol] Normal mg/dL Normal [facility] WBC Auto (Bld) [#/Vol]Ordere d By: Alejo Lynn on 03-01-2023 WBC (Bld) [#/Vol] 5.4 10*3/uL 4.1-10.5 [facility] XR chest 1V portableon 03-01 XR chest 1V portable [facility] [place] [address] [place] [address] XRay Report Signed Patient: Yonatan Patel MR#: [id number] 6 : 1945 Acct:[id number] Age/Sex: 77 / M ADM Date: 03/01/23 Loc: Room: [address] [place] [address] Type: ADM INOo Attending Dr: Bobo Villagomez MD Copies to: DO Bobo Franks MD Ordering Provider: Alejo Lynn DO Date of Service: 03/01/23 XR/XR chest 1V portable: Neuro Symptoms/Deficit PORTABLE AP ERECT CHEST 0017 hours CLINICAL HISTORY: Lower extremity numbness COMPARISON: None The heart is within normal limits. There is no vascular congestion. There is mild hyperinflation. No consolidation is noted.. There is no effusion or pneumothorax. The osseous structures are intact. End plate spurring is seen. XR/XR chest 1V portable IMPRESSION: NO ACUTE FINDINGS Impression dictated by: Selena Reid M.D.03/01/2023 9:15 AM Dictation Location: [place] [address] Transcribed By: [facility] 03/01/2315 Dictated By: Selena Reid MD 03/01/2314 Signed By: 03/01/2315 Normal [facility] pH Auto test strip (U)Ordere d By: Alejo Lynn on 03-01-2023 pH (U) 7.5 [pH] 5.0-9.0 [facility] Office Visiton 11-26-2022 Follow-up visit [id number] Yonatan Patel 1945 M Date Provider Department Center 11/26/2022 [id number], ZEV C[facility] Family History Problem Relation Age of Onset Heart attack Father Heart attack Brother Family Status - Relation Status Age at Father Brother Level of Service:29075 [place] OFFICE/OUTPATIENT ESTABLISHED LOW MDM 20-29 MIN Reason for Visit and Comments: Coronary Artery Disease [187] Hypertension [156930] Hyperlipidemia [182] Normal [facility] H Pylori Stool Ag, EIAon H Pylori Stool Ag, EIA Negative Normal Negative [facility] Comment on above: Order Comment: SOURC E OF SPECIMEN: STOOL Result Comment: Perf ormed at: - [facility] [address] [id number] Skin Installer: Juan Howard MD, Phone: [phone] PERFORMED BY: [facility] [address] [place] [address] PATHOLOGIST PER DIEM PHYSICAL THERAPIST HARRY MARTI M.D. Performed By: #### H S TROP, CMP, CK, CBC #### [facility] [address] CBC AUTO DIFFon 09-14-2022 BASO # 0.0 103/ul Normal 0.0-0.1 [facility] Comment on above: Performed By: #### C BC #### [facility] [address] [address] [address] Patrica Nathan Basophils/100 WBC (Bld) 0.7 % Normal 0.2-2.0 [facility] Comment on above: Performed By: #### C BC #### [facility] [address] [place] [address] Dr. Patrica Nathan EO # 0.1 103/ul Normal 0.0-0.7 [facility] Comment on above: Performed By: #### C BC #### [facility] [address] [address] [address] Patrica Nathan Eosinophils/100 WBC (Bld) 1.5 % Normal 0.9-7.0 [facility] Comment on above: Performed By: #### C BC #### [facility] [address] [place] [address] Dr. Patrica Nathan Erythrocyte distribution width (RBC) [Ratio] 14.2 % Normal 11.0-15.0 [facility] Comment on above: Performed By: #### C BC #### [facility] [address] [place] [address] Dr. Patrica Nathan Hematocrit (Bld) [Volume fraction] 42.1 % Normal 42.0-54.0 [facility] Comment on above: Performed By: #### C BC #### [facility] [address] [place] [address] Dr. Patrica Nathan Hemoglobin (Bld) [Mass/Vol] 14.6 g/dL Normal 14.0-18.0 [facility] Comment on above: Performed By: #### C BC #### [facility] [address] [place] [address] Dr. Patrica Nathan IG # 0.03 10e3/ul Normal 0.00-0.03 [facility] Comment on above: Performed By: #### C BC #### [facility] [address] [place] [address] Dr. Patrica Nathan IG % 0.5 % Normal 0.0-0.5 [facility] Comment on above: Performed By: #### C BC #### [facility] [address] [place] [address] Dr. Patrica Nathan LYMPH # 1.3 103/ul Normal 1.2-3.8 [facility] Comment on above: Performed By: #### C BC #### [facility] [address] [place] [address] Dr. Patrica Nathan Lymphocytes/100 WBC (Bld) 22.4 % Normal 20.5-60.0 [facility] Comment on above: Performed By: #### C BC #### [facility] [address] [place] [address] Dr. Patrica Nathan MANUAL DIFF REQ NO Normal [facility] Comment on above: Performed By: #### C BC #### [facility] [address] [place] [address] Dr. Patrica Nathan MCH (RBC) [Entitic mass] 29.4 pg Normal 25.9-34.0 [facility] Comment on above: Performed By: #### C BC #### [facility] [address] [place] [address] Dr. Patrica Nathan MCHC (RBC) [Mass/Vol] 34.7 g/dL Normal 29.9-35.2 [facility] Comment on above: Performed By: #### C BC #### [facility] [address] [place] [address] Dr. Patrica Nathan MCV (RBC) [Entitic vol] 84.9 fL Normal 80.0-94.0 [facility] Comment on above: Performed By: #### C BC #### [facility] [address] [place] [address] Dr. Patrica Nathan MONO # 0.6 103/ul Normal 0.3-0.8 [facility] Comment on above: Performed By: #### C BC #### [facility] [address] [place] [address] Dr. Patrica Nathan Monocytes/100 WBC (Bld) 9.9 % Normal 1.7-12.0 [facility] Comment on above: Performed By: #### C BC #### [facility] [address] [place] [address] Dr. Patrica Nathan NEUT # 3.9 103/ul Normal 1.4-6.5 [facility] Comment on above: Performed By: #### C BC #### [facility] [address] [place] [address] Dr. Patrica Nathan Neutrophils/100 WBC (Bld) 65.0 % Normal 43.0-75.0 [facility] Comment on above: Performed By: #### C BC #### [facility] [address] [place] [address] Dr. Patrica Nathan Platelet mean volume (Bld) [Entitic vol] 9.6 fL Normal 9.5-13.5 [facility] Comment on above: Performed By: #### C BC #### [facility] [address] [place] [address] Dr. Patrica Nathan PLT 170 103/ul Normal 150-450 [facility] Comment on above: Performed By: #### C BC #### [facility] [address] [place] [address] Dr. Patrica Nathan RBC 4.96 106/ul Normal 4.70-6.10 [facility] Comment on above: Performed By: #### C BC #### [facility] [address] [place] [address] Dr. Patrica Nathan WBC 6.0 103/ul Normal 4.0-11.0 [facility] Comment on above: Performed By: #### C BC #### [facility] [address] [place] [address] HEAD WO CONon 09-14-2022 CT HEAD WO CON EXAMINATION: CT HEAD WO CON HISTORY: Near syncope. Patient has had diarrhea on and off for 2 weeks. Patient began antibiotic last week. COMPARISON: None. TECHNIQUE: CT examination of the head without IV contrast. Dose reduction techniques were achieved by using automated exposure control and/or adjustment of mA and/or kV according to patient size and/or use of iterative reconstruction technique. FINDINGS: Comparison made to head CT dated 11/10/2016 and brain MRI dated 07/28/2022. There is no focal scalp soft tissue swelling or acute calvarial fracture. The visualized globes and orbits are grossly normal for age. There is mild paranasal sinus mucosal thickening without air-fluid levels Bilateral mastoid air cells are clear. The ventricles and sulci are mildly prominent. There is mild periventricular and deep subcortical white matter low-attenuation, most consistent with small vessel ischemic disease. There is no intraparenchymal hemorrhage, extraaxial fluid collection, mass lesion, or acute large territory ischemia by noncontrast CT. There is intracranial atherosclerosis. IMPRESSION: 1. No acute intracranial hemorrhage or acute large territory ischemia by noncontrast CT. 2. 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 3. Intracranial atherosclerosis. If the patient has a focal neurologic deficit or there is clinical suspicion for acute cerebrovascular accident, brain MRI would be recommended for further evaluation. Electronically authenticated by: ANGELY KENNEDY Date: 2022-09-14 10:00 Normal [facility] PROF 14(COMP METB)on 023 Albumin [Mass/Vol] 3.7 g/dL Normal 3.4-5.0 [facility] Comment on above: Performed By: #### C JV HSTROPN #### [facility] [address] [address] [address] Patrica Nathan Albumin/Globulin [Mass ratio] 1.4 {ratio} Normal [facility] Comment on above: Performed By: #### C JV HSTROPN #### [facility] [address] [address] [address] Patrica Nathan ALP [Catalytic activity/Vol] 83 U/L Normal 46-116 [facility] Comment on above: Performed By: #### C JV HSTROPN #### [facility] [address] [address] [address] Patrica Nathan ALT [Catalytic activity/Vol] 57 U/L Normal 16-63 [facility] Comment on above: Performed By: #### C JV, HSTROPN #### [facility] [address] [address] [address] Patrica Nathan Anion gap [Moles/Vol] 11.9 mmol/L Normal [facility] Comment on above: Performed By: #### C JV, HSTROPN #### [facility] [address] [address] [address] Patrica Nathan AST [Catalytic activity/Vol] 43 U/L Critically high 15-37 [facility] Comment on above: Performed By: #### C JV, HSTROPN #### [facility] [address] [place] [address] Dr. Patrica Nathan Bilirubin [Mass/Vol] 1.1 mg/dL Critically high 0.2-1.0 [facility] Comment on above: Performed By: #### C JV, HSTROPN #### [facility] [address] [place] [address] Dr. Patrica Nathan Calcium [Mass/Vol] 9.2 mg/dL Normal 8.5-10.1 [facility] Comment on above: Performed By: #### C JV, HSTROPN #### [facility] [address] [place] [address] Dr. Patrica Nathan Chloride [Moles/Vol] 106 mmol/L Normal 98-107 [facility] Comment on above: Performed By: #### C JV, HSTROPN #### [facility] [address] [place] [address] Dr. Patrica Nathan CO2 [Moles/Vol] 28.0 mmol/L Normal 21.0-32.0 [facility] Comment on above: Performed By: #### C JV, HSTROPN #### [facility] [address] [place] [address] Dr. Patrica Nathan Creatinine [Mass/Vol] 0.92 mg/dL Normal 0.70-1.30 [facility] Comment on above: Performed By: #### C JV, HSTROPN #### [facility] [address] [address] [address] Patrica Nathan EGFR-AF SOMALI >60 Normal >=60 [facility] Comment on above: Performed By: #### C MP, HSTROPN #### [facility] [address] [address] [address] Patrica Nathan EGFR-NON AF SOMALI >60 Normal >=60 [facility] Comment on above: Performed By: #### C MP, HSTROPN #### [facility] [address] [address] [address] Patrica Nathan Globulin (S) [Mass/Vol] 2.7 g/dL Normal [facility] Comment on above: Performed By: #### C MP, HSTROPN #### [facility] [address] [place] [address] Dr. Patrica Nathan Glucose [Mass/Vol] 90 mg/dL Normal 74-106 [facility] Comment on above: Performed By: #### C MP, HSTROPN #### [facility] [address] [address] [address] Patrica Nathan Potassium [Moles/Vol] 3.9 mmol/L Normal 3.5-5.1 [facility] Comment on above: Performed By: #### C MP, HSTROPN #### [facility] [address] [place] [address] Dr. Patrica Nathan Protein [Mass/Vol] 6.4 g/dL Normal 6.4-8.2 [facility] Comment on above: Performed By: #### C MP, HSTROPN #### [facility] [address] [address] [address] Patrica Nathan Sodium [Moles/Vol] 142 mmol/L Normal 136-145 [facility] Comment on above: Performed By: #### C MP, HSTROPN #### [facility] [address] [address] [address] Patrica Nathan Urea nitrogen [Mass/Vol] 19.0 mg/dL Critically high 7.0-18.0 [facility] Comment on above: Performed By: #### C MP, HSTROPN #### [facility] [address] [address] [address] Patrica Nathan Urea nitrogen/Creatinine [Mass ratio] 20.7 mg/mg Normal [facility] Comment on above: Performed By: #### C MP, HSTROPN #### [facility] [address] [address] [address] Patrica Nathan TROPONIN, HIGH SENSITIVITYon 09-14-2022 HSTROP 5.8 pg/mL Normal 4.0-76.1 [facility] Comment on above: Result Comment: CUT- OFF POINTS HAVE BEEN ESTABLISHED BASED ON THE FOURTH UNIVERSAL DEFINITIONS OF MYOCARDIAL INFARCTION. THE UPPER REFERENCE LIMIT (URL) OF TROPONIN, DEFINED THE 99TH PERCENTILE OF cTnI DISTRIBUTION IN A REFERENCE POPULATION, HAS BEEN CONFIRMED THE DECISION THRESHOLD FOR SC DIAGNOSIS. Performed By: #### C MP, HSTROPN #### [facility] [address] [address] [address] Patrica Nathan XR CHEST 1 Von 09-14-2022 XR CHEST 1 V EXAM: XR CHEST 1 V HISTORY: Near syncope COMPARISON: None. TECHNIQUE: Single view of the chest FINDINGS: Heart size normal. No focal consolidation, pleural effusion, pulmonary congestion or pneumothorax. IMPRESSION: No acute findings. Electronically authenticated by: PASTORA DREW Date: 2022-09-14 10:01 Normal [facility] Alex 08-27-2022 L ------- Specimen: [id number] Received: 08/27/22 Status: MARIAH Gilmore Num: [id number] Spec Type: Surgical Subm Dr: Maryjane Christensen MD Tissues: A Gastric Biopsy (GASTRIC BX) B Colon Biopsy (ASCENDING POLYP) C Colon Biopsy (SIGMIOD POLYP) Procedures: HE/6, Gross/Micro L4/3, H PYLORI Age/ Patient Sex Location Account Attending Physician Yonatan Patel 77/M [id number] Alek Oliva MD SPEC NUM: [id number] RECD: 08/27/22 STATUS: MARIAH GILMORE NUM: [id number] EVE: 08/27/22- [facility] DR: Maryjane Christensen MD ENTERED: 08/27/22 [facility] [place] DR: BRITTANIE TYPE: Surgical DEPT: S ORDERED: HE/6, Gross/Micro L4/3, H PYLORI ORDERED: HE/6, Gross/Micro L4/3, H PYLORI Supplemental Report Addendum 1 Entered: 08/28/22056 A. Immunohistochemical stain for Helicobacter Pylori is POSITIVE. Addendum Signed (signature on file) Aaliyah Beard MD 08/28/22 9861 Pathological Diagnosis A. Stomach, gastric, biopsy: - Moderate chronic active gastritis. - Positive for Helicobacter pylori like organisms on H E stain. COMMENT: Confirmatory Helicobacter pylori immunohistochemical stain is being performed, an addendum report will be issued on completion. B. Colon, ascending, polypectomy: - Tubular adenoma. Specimen: [id number] Received: 08/27/22 Status: MARIAH [place] Num: [id number] Spec Type: Surgical Subm Dr: Maryjane Christensen MD Tissues: A Gastric Biopsy (GASTRIC BX) B Colon Biopsy (ASCENDING POLYP) C Colon Biopsy (SIGMIOD POLYP) Procedures: HE/6, Gross/Micro L4/3, H PYLORI Patient: Yonatan Patel [id number] (Continued) Specimen: Received: 08/27/22 (Continued) Pathological Diagnosis (Continued) Signed (signature on file) Aaliyah Beard MD 08/28/22 1236 Specimen: Received: 08/27/22 Status: MARIAH Gilmore Num: [id number] Spec Type: Surgical Subm Dr: Maryjane Christensen MD Tissues: A Gastric Biopsy (GASTRIC BX) B Colon Biopsy (ASCENDING POLYP) C Colon Biopsy (SIGMIOD POLYP) Procedures: HE/6, Gross/Micro L4/3, H PYLORI Patient: Yonatan Patel [id number] (Continued) Specimen: Received: 08/27/22 (Continued) Pathological Diagnosis (Continued) C. Colon, sigmoid, polypectomy: - Sessile serrated adenoma. Clinical Information Weight loss Gross Description A. Received in formalin labeled with the patient's name, number and gastric biopsy are two fragments of soft wolff tissue averaging 0.3 cm. Entirely submitted in one cassette labeled A1. B. Received in formalin labeled with the patient's name, number and ascending colon polyp is one fragment of soft wolff tissue measuring 0.6 x 0.3 x 0.2 cm. Entirely submitted in one cassette labeled B1. C. Received in formalin labeled with the patient's name, number and sigmoid polyp is one fragment of soft wolff tissue admixed with fecal material measuring 0.6 cm. Entirely submitted in one cassette labeled C1. Microscopic Description A. Two glass slides with H E stained material have been examined. The microscopic findings support the above pathologic diagnosis. B. Two glass slides with H E stained material have been examined. The microscopic findings support the above pathologic diagnosis. C. Two glass slides with H E stained material have been examined. The microscopic findings support the above pathologic diagnosis. CPT Codes 14658?3 Specimen: [id number] Received: 08/27/22 Status: [facility] Num: [id number] Spec Type: Surgical Subm Dr: Maryjane Christensen MD Tissues: A Gastric Biopsy (GASTRIC BX) B Colon Biopsy (ASCENDING POLYP) C Colon Biopsy (SIGMIOD POLYP) Procedures: HE/6, Gross/Micro L4/3, H PYLORI --------- (more content not included)... [facility] MRI BRAIN WO CONon 2 MRI BRAIN WO CON EXAMINATION: MRI BRA IN WO CON, 07/28/2022 8:18 AM EST HISTORY: Skin sensation disturbance , blurred vision bilaterally, syncope, off balance COMPARISON: None. TECHNIQUE: MRI of the brain was performed without IV contrast. FINDINGS: CEREBRUM: Numerous T2 hyperintensities scattered throughout the periventricular and subcortical deep white matter favoring chronic small vessel ischemic changes; not significant changed. No hemorrhage, mass, or acute infarction. CEREBELLUM: No edema, hemorrhage, mass, acute infarction, or inappropriate atrophy. BRAINSTEM: No edema, hemorrhage, mass, acute infarction, or inappropriate atrophy. CSF SPACES: Ventricles, cisterns, and sulci are appropriate for age. No hydrocephalus, subarachnoid hemorrhage, or mass. SKULL: No mass or other significant visible lesion. SINUSES: Limited views demonstrate no significant mucosal thickening or fluid. ORBITS: Limited views are unremarkable. OTHER: No fluid or appreciable soft tissue within the middle ears. IMPRESSION: 1. Stable to slight progression of chronic small vessel ischemic changes and age consistent atrophy. 2. No acute findings to account for patient's symptoms. Electronically authenticated by: BERHANE HERNANDEZ Date: 2022-07-29 08:42 Normal [facility] LIPID PROFILEon 07-28-2022 CHOL-HDL RATIO NORM SEE BELOW Normal [facility] Comment on above: Result Comment: 3.3 - 4.4 LOW RISK 4.4 - 7.1 AVERAGE RISK 7.1 - 11.0 MODERATE RISK >11.0 HIGH RISK Performed By: #### C JV HSTROPN #### [facility] [address] [address] [address] Patrica Nathan Cholesterol [Mass/Vol] 97 mg/dL Normal <=[address] [facility] Comment on above: Performed By: #### C JV HSTROPN #### [facility] [address] [address] [address] Patrica Nathan Cholesterol in HDL [Mass/Vol] 40 mg/dL Normal 40-60 [facility] Comment on above: Performed By: #### C JV, HSTROPN #### [facility] [address] [place], [place] [address] Dr. Patrica Nathan Cholesterol in LDL [Mass/Vol] 31.8 mg/dL Normal [facility] Comment on above: Performed By: #### C MP, HSTROPN #### [facility] [address] [place] [address] Dr. Patrica Nathan Cholesterol.total/Chol esterol in HDL [Mass ratio] 2.4 {ratio} Normal [facility] Comment on above: Performed By: #### C MP, HSTROPN #### [facility] [address] [place] [address] Dr. Patrica Nathan HDL NORMAL > or = 60 mg/dl - LO W CARDIOVASCULAR RISK <40 mg/dl - HIGH CARDIOVASCULAR RISK Normal [facility] Comment on above: Performed By: #### C JV, HSTROPN #### [facility] [address] [place] [address] Dr. Patrica Nathan LDL CALC NORMAL SEE BELOW Normal [facility] Comment on above: Result Comment: <100 mg/dl OPTIMAL 100 - 129 mg/dl NEAR OR ABOVE OPTIMAL 130 - 159 mg/dl BORDERLINE HIGH 160 - 189 mg/dl HIGH >190 mg/dl VERY HIGH Performed By: #### C JV, HSTROPN #### [facility] [address] [place] [address] Dr. Patrica Nathan Triglyceride [Mass/Vol] 126 mg/dL Normal <=150 [facility] Comment on above: Performed By: #### C JV, HSTROPN #### [facility] [address] [place] [address] Dr. Patrica Nathan VLDL CALC 25.2 mg/dL Normal [facility] Comment on above: Performed By: #### C JV, HSTROPN #### [facility] [address] [place] [address] Dr. Patrica Nathan CBC AUTO DIFFon 07-01-2022 BASO # 0.0 103/ul Normal 0.0-0.1 [facility] Comment on above: Performed By: #### C BC #### [facility] [address] [place] [address] Dr. Patrica Nathan Basophils/100 WBC (Bld) 0.5 % Normal 0.2-2.0 [facility] Comment on above: Performed By: #### C BC #### [facility] [address] [place] [address] Dr. Patrica Nathan EO # 0.1 103/ul Normal 0.0-0.7 [facility] Comment on above: Performed By: #### C BC #### [facility] [address] [place] [address] Dr. Patrica Nathan Eosinophils/100 WBC (Bld) 2.2 % Normal 0.9-7.0 [facility] Comment on above: Performed By: #### C BC #### [facility] [address] [place] [address] Dr. Patrica Nathan Erythrocyte distribution width (RBC) [Ratio] 14.3 % Normal 11.0-15.0 [facility] Comment on above: Performed By: #### C BC #### [facility] [address] [place] [address] Dr. Patrica Nathan Hematocrit (Bld) [Volume fraction] 45.8 % Normal 42.0-54.0 [facility] Comment on above: Performed By: #### C BC #### [facility] [address] [place] [address] Dr. Patrica Nathan Hemoglobin (Bld) [Mass/Vol] 15.1 g/dL Normal 14.0-18.0 [facility] Comment on above: Performed By: #### C BC #### [facility] [address] [place] [address] Dr. Patrica Nathan IG # 0.01 10e3/ul Normal 0.00-0.03 [facility] Comment on above: Performed By: #### C BC #### [facility] [address] [place] [address] Dr. Patrica Nathan IG % 0.2 % Normal 0.0-0.5 [facility] Comment on above: Performed By: #### C BC #### [facility] [address] [place] [address] Dr. Patrica Nathan LYMPH # 1.4 103/ul Normal 1.2-3.8 [facility] Comment on above: Performed By: #### C BC #### [facility] [address] [place] [address] Dr. Patrica Nathan Lymphocytes/100 WBC (Bld) 24.0 % Normal 20.5-60.0 [facility] Comment on above: Performed By: #### C BC #### [facility] [address] [place] [address] Dr. Patrica Nathan MANUAL DIFF REQ NO Normal [facility] Comment on above: Performed By: #### C BC #### [facility] [address] [place] [address] Dr. Patrica Nathan MCH (RBC) [Entitic mass] 29.4 pg Normal 25.9-34.0 [facility] Comment on above: Performed By: #### C BC #### [facility] [address] [place] [address] Dr. Patrica Nathan MCHC (RBC) [Mass/Vol] 33.0 g/dL Normal 29.9-35.2 [facility] Comment on above: Performed By: #### C BC #### [facility] [address] [place] [address] Dr. Patrica Nathan MCV (RBC) [Entitic vol] 89.3 fL Normal 80.0-94.0 [facility] Comment on above: Performed By: #### C BC #### [facility] [address] [place] [address] Dr. Patrica Nathan MONO # 0.6 103/ul Normal 0.3-0.8 [facility] Comment on above: Performed By: #### C BC #### [facility] [address] [place] [address] Dr. Patrica Nathan Monocytes/100 WBC (Bld) 10.8 % Normal 1.7-12.0 [facility] Comment on above: Performed By: #### C BC #### [facility] [address] [place] [address] Dr. Patrica Nathan NEUT # 3.7 103/ul Normal 1.4-6.5 [facility] Comment on above: Performed By: #### C BC #### [facility] [address] [place] [address] Dr. Patrica Nathan Neutrophils/100 WBC (Bld) 62.3 % Normal 43.0-75.0 [facility] Comment on above: Performed By: #### C BC #### [facility] [address] [place] [address] Dr. Patrica Nathan Platelet mean volume (Bld) [Entitic vol] 9.7 fL Normal 9.5-13.5 [facility] Comment on above: Performed By: #### C BC #### [facility] [address] [place] [address] Dr. Patrica Nathan PLT 192 103/ul Normal 150-450 [facility] Comment on above: Performed By: #### C BC #### [facility] [address] [place] [address] Dr. Patrica Nathan RBC 5.13 106/ul Normal 4.70-6.10 [facility] Comment on above: Performed By: #### C BC #### [facility] [address] [place] [address] Dr. Patrica Nathan WBC 6.0 103/ul Normal 4.0-11.0 [facility] Comment on above: Performed By: #### C BC #### [facility] [address] [place] [address] CHEST WO CONon 07-01-2022 CT CHEST WO CON EXAMINATION: CT CHES T WO CON HISTORY: CHEST PAIN, UNSPECIFIED COMPARISON: 06/29/2022 TECHNIQUE: Multi-planar CT images were created with IV contrast. Axial, Coronal, and Sagittal images. Dose reduction techniques were achieved by using automated exposure control and/or adjustment of mA and/or kV according to patient size and/or use of iterative reconstruction technique. FINDINGS: LUNGS: No pneumothorax identified. Moderate to severe centrilobular emphysema. Increase infiltrates identified in the right lower lobe with peribronchial thickening. PLEURA: 1 cm right pleural effusion VASCULATURE: No abnormality. MANGO: No mass or adenopathy. MEDIASTINUM: No mass or adenopathy. CARDIAC: No enlargement or pericardial effusion. Mild coronary atherosclerosis AORTA: No aneurysm or dissection. CHEST WALL: No mass or axillary adenopathy. BONES: Stable right posterior medial 10th and 12th rib fractures LIMITED ABDOMEN: No suspicious findings. Limited images of the upper abdomen. OTHER: Negative. IMPRESSION: No pneumothorax Stable moderate to severe emphysema Increased right basilar infiltrate and pleural effusion, atelectasis is favored Stable right posterior 10th and 12th rib fractures Electronically authenticated by: EVGENY MCCLAIN Date: 2022-07-01 07:16 Normal [facility] PROF 14(COMP METB)on 07-01- 022 Albumin [Mass/Vol] 4.0 g/dL Normal 3.4-5.0 [facility] Comment on above: Performed By: #### C MP, HSTROPN #### [facility] [address] [place] [address] Dr. Patrica Nathan Albumin/Globulin [Mass ratio] 1.2 {ratio} Normal [facility] Comment on above: Performed By: #### C MP, HSTROPN #### [facility] [address] [place] [address] Dr. Patrica Nathan ALP [Catalytic activity/Vol] 80 U/L Normal 46-116 [facility] Comment on above: Performed By: #### C MP, HSTROPN #### [facility] [address] [place] [address] Dr. Patrica Nathan ALT [Catalytic activity/Vol] 30 U/L Normal 16-63 [facility] Comment on above: Performed By: #### C MP, HSTROPN #### [facility] [address] [place] [address] Dr. Patrica Nathan Anion gap [Moles/Vol] 8.5 mmol/L Normal [facility] Comment on above: Performed By: #### C MP, HSTROPN #### [facility] [address] [address] [address] Patrica Nathan AST [Catalytic activity/Vol] 26 U/L Normal 15-37 [facility] Comment on above: Performed By: #### C MP, HSTROPN #### [facility] [address] [place] [address] Dr. Patrica Nathan Bilirubin [Mass/Vol] 1.4 mg/dL Critically high 0.2-1.0 [facility] Comment on above: Performed By: #### C MP, HSTROPN #### [facility] [address] [address] [address] Patrica Nathan Calcium [Mass/Vol] 9.8 mg/dL Normal 8.5-10.1 [facility] Comment on above: Performed By: #### C MP, HSTROPN #### [facility] [address] [place] [address] Dr. Patrica Nathan Chloride [Moles/Vol] 104 mmol/L Normal 98-107 [facility] Comment on above: Performed By: #### C MP, HSTROPN #### [facility] [address] [place] [address] Dr. Patrica Nathan CO2 [Moles/Vol] 30.8 mmol/L Normal 21.0-32.0 [facility] Comment on above: Performed By: #### C MP, HSTROPN #### [facility] [address] [place] [address] Dr. Patrica Nathan Creatinine [Mass/Vol] 0.97 mg/dL Normal 0.70-1.30 [facility] Comment on above: Performed By: #### C MP, HSTROPN #### [facility] [address] [place] [address] Dr. Patrica Nathan EGFR-AF SOMALI >60 Normal >=60 [facility] Comment on above: Performed By: #### C MP, HSTROPN #### [facility] [address] [place] [address] Dr. Patrica Nathan EGFR-NON AF SOMALI >60 Normal >=60 [facility] Comment on above: Performed By: #### C MP, HSTROPN #### [facility] [address] [place] [address] Dr. Patrica Nathan Globulin (S) [Mass/Vol] 3.4 g/dL Normal [facility] Comment on above: Performed By: #### C MP, HSTROPN #### [facility] [address] [place] [address] Dr. Patrica Nathan Glucose [Mass/Vol] 110 mg/dL Critically high 74-106 [facility] Comment on above: Performed By: #### C MP, HSTROPN #### [facility] [address] [address] [address] Patrica Nathan Potassium [Moles/Vol] 4.3 mmol/L Normal 3.5-5.1 [facility] Comment on above: Performed By: #### C MP, HSTROPN #### [facility] [address] [place] [address] Dr. Patrica Nathan Protein [Mass/Vol] 7.4 g/dL Normal 6.4-8.2 [facility] Comment on above: Performed By: #### C JV, HSTROPN #### [facility] [address] [place] [address] Dr. Patrica Nathan Sodium [Moles/Vol] 139 mmol/L Normal 136-145 [facility] Comment on above: Performed By: #### C JV, HSTROPN #### [facility] [address] [place] [address] Dr. Patrica Nathan Urea nitrogen [Mass/Vol] 15.0 mg/dL Normal 7.0-18.0 [facility] Comment on above: Performed By: #### C JV, HSTROPN #### [facility] [address] [place] [address] Dr. Patrica Nathan Urea nitrogen/Creatinine [Mass ratio] 15.5 mg/mg Normal [facility] Comment on above: Performed By: #### C JV, HSTROPN #### [facility] [address] [place] [address] Dr. Patrica Nathan PROTIMEon 07-01-2022 INR Coag (PPP) [Relative time] 0.95 {INR} Normal [facility] Comment on above: Performed By: #### P T, PTT #### [facility] [address] [place] [address] Dr. Patrica Nathan INR GUIDELINES SEE BELOW Normal [facility] Comment on above: Result Comment: ODALIS RED INR: 2.0 - 3.0 CONDITIONS NOT LISTED BELOW 2.5 - 3.5 FOR PROSTHETIC HEART VALVE REPLACEMENT 2.5 - 3.5 RECURRENT THROMBOSIS Performed By: #### P T, PTT #### [facility] [address] [place], [place] [address] Dr. Patrica Nathan PT Coag (PPP) [Time] 10.3 s Normal 9.0-11.6 [facility] Comment on above: Performed By: #### P T, PTT #### [facility] [address] [place], [place] [address] Dr. Patrica Nathan PTTon 07-01-2022 aPTT Coag (Bld) [Time] 27.1 s Normal 22.3-36.[address] [facility] Comment on above: Performed By: #### C MP, HSTROPN #### [facility] [address] [place], [place] [address] Dr. Patrica Nathan XR CHEST 1 Von 07-01-2022 XR CHEST 1 V EXAM: XR CHEST 1 V HISTORY: CHEST PAIN, UNSPECIFIED COMPARISON: CT chest 06/29/2022 TECHNIQUE: Chest single view. FINDINGS: Lines/tubes/devices: None. Cardiomediastinum: Cardiac silhouette appears normal in size. Mildly tortuous aorta. Vasculature: No increased pulmonary vasculature. Lungs/pleura: Increased bibasilar strandy opacities, atelectasis favored over infiltrate. Tiny right pleural effusion not ruled out. No visible pneumothorax. Bones/soft tissues: Bony thorax appears grossly unchanged as seen. Known right rib fractures not well demonstrated. Surgical anchor is present in the proximal humerus bilaterally. IMPRESSION: Increased bibasilar strandy opacities, atelectasis favored over infiltrate. Tiny right pleural effusion not ruled out. No visible pneumothorax. Electronically authenticated by: ANGELY REYNOLDS Date: 2022-07-01 06:33 [address] [facility] [address] CHEST WO CONon 06-29-2022 CT CHEST WO CON EXAMINATION: CT CHES T WO CON HISTORY: CHEST PAIN, UNSPECIFIED ; posterior right rib pain since falling 2 days ago COMPARISON: XR RIBS with PA chest 06/29/2022 TECHNIQUE: Axial, Coronal, and Sagittal images were created without the administration of IV contrast material. Dose reduction techniques were achieved by using automated exposure control and/or adjustment of mA and/or kV according to patient size and/or use of iterative reconstruction technique. FINDINGS: LUNGS: Marked emphysematous changes throughout the lungs with mild apical and bibasilar pleural scarring. No appreciable infiltrates or suspicious nodules. Mild passive atelectasis within posterior right lung base. PLEURA: Right apical pneumothorax, 4 mm in thickness. No pleural effusion. VASCULATURE: No abnormality. MANGO: No mass or adenopathy. MEDIASTINUM: No mass or adenopathy. CARDIAC: No enlargement or pericardial thickening. AORTA: No aneurysm or dissection. CHEST WALL: No mass or axillary adenopathy. BONES: Minimally displaced fractures of the posterior right 10th and 12th ribs. LIMITED ABDOMEN: No suspicious findings. Limited images of the upper abdomen. OTHER: Negative. IMPRESSION: 1. Tiny right apical pneumothorax, 4 mm in thickness. 2. Minimally displaced posterior right 10th and 12th rib fractures. 3. Marked emphysematous changes throughout lungs with small amount of posterior right basilar passive atelectasis. Electronically authenticated by: BERHANE HERNANDEZ Date: 2022-06-29 16:01 Normal [facility] XR RIBS RT PA Estella 2 XR RIBS RT PA CH EXAM: XR RIBS RT PA CH 06/29/2022. COMPARISON STUDY: PA and lateral chest 05/02/2022 FINDINGS: PA chest as well as 6 additional views of the ribs for a total of 7 images obtained HISTORY: Pain IMPRESSION: 1. Heart size remains normal. Background COPD pattern with pulmonary hyperinflation and emphysema suspected. Superimposed reactive airways disease/bronchitis may be present without overt pneumonia. 2. No dense consolidation, edema, or failure noted. 3. Prior bilateral rotator cuff repair noted. Multilevel degenerative changes of the spine with levocurvature centered at the L1-L2 level. 4. Acute nondisplaced fracture deformities of the posterior right eighth and ninth ribs are noted. Small right pleural effusion may be present. Tiny right-sided apical pneumothorax is suggested. Electronically authenticated by: FABRICE BRETT Date: 2022-06-29 15:08 Normal [facility] CBC AUTO DIFFon 05-02-2022 BASO # 0.1 103/ul Normal 0.0-0.1 [facility] Comment on above: Performed By: #### C BC #### [facility] [address] [address] [address] Patrica Nathan Basophils/100 WBC (Bld) 0.8 % Normal 0.2-2.0 [facility] Comment on above: Performed By: #### C BC #### [facility] [address] [place] [address] Dr. Patrica Nathan EO # 0.1 103/ul Normal 0.0-0.7 [facility] Comment on above: Performed By: #### C BC #### [facility] [address] [place] [address] Dr. Patrica Nathan Eosinophils/100 WBC (Bld) 1.7 % Normal 0.9-7.0 [facility] Comment on above: Performed By: #### C BC #### [facility] [address] [place] [address] Dr. Patrica Nathan Erythrocyte distribution width (RBC) [Ratio] 14.5 % Normal 11.0-15.0 [facility] Comment on above: Performed By: #### C BC #### [facility] [address] [place] [address] Dr. Patrica Nathan Hematocrit (Bld) [Volume fraction] 45.6 % Normal 42.0-54.0 [facility] Comment on above: Performed By: #### C BC #### [facility] [address] [place] [address] Dr. Patrica Nathan Hemoglobin (Bld) [Mass/Vol] 15.3 g/dL Normal 14.0-18.0 [facility] Comment on above: Performed By: #### C BC #### [facility] [address] [place] [address] Dr. Patrica Nathan IG # 0.02 10e3/ul Normal 0.00-0.03 [facility] Comment on above: Performed By: #### C BC #### [facility] [address] [place] [address] Dr. Patrica Nathan IG % 0.3 % Normal 0.0-0.5 [facility] Comment on above: Performed By: #### C BC #### [facility] [address] [place] [address] Dr. Patrica Nathan LYMPH # 1.6 103/ul Normal 1.2-3.8 [facility] Comment on above: Performed By: #### C BC #### [facility] [address] [place] [address] Dr. Patrica Nathan Lymphocytes/100 WBC (Bld) 27.0 % Normal 20.5-60.0 [facility] Comment on above: Performed By: #### C BC #### [facility] [address] [place] [address] Dr. Patrica Nathan MANUAL DIFF REQ NO Normal [facility] Comment on above: Performed By: #### C BC #### [facility] [address] [place] [address] Dr. Patrica Nathan MCH (RBC) [Entitic mass] 29.9 pg Normal 25.9-34.0 [facility] Comment on above: Performed By: #### C BC #### [facility] [address] [place] [address] Dr. Patrica Nathan MCHC (RBC) [Mass/Vol] 33.6 g/dL Normal 29.9-35.2 [facility] Comment on above: Performed By: #### C BC #### [facility] [address] [place] [address] Dr. Patrica Nathan MCV (RBC) [Entitic vol] 89.1 fL Normal 80.0-94.0 [facility] Comment on above: Performed By: #### C BC #### [facility] [address] [place] [address] Dr. Patrica Nathan MONO # 0.6 103/ul Normal 0.3-0.8 [facility] Comment on above: Performed By: #### C BC #### [facility] [address] [place] [address] Dr. Patrica Nathan Monocytes/100 WBC (Bld) 9.8 % Normal 1.7-12.0 [facility] Comment on above: Performed By: #### C BC #### [facility] [address] [place] [address] Dr. Patrica Nathan NEUT # 3.6 103/ul Normal 1.4-6.5 [facility] Comment on above: Performed By: #### C BC #### [facility] [address] [address] [address] Patrica Nathan Neutrophils/100 WBC (Bld) 60.4 % Normal 43.0-75.0 [facility] Comment on above: Performed By: #### C BC #### [facility] [address] [address] [address] Patrica Nathan Platelet mean volume (Bld) [Entitic vol] 9.3 fL Critically low 9.5-13.5 [facility] Comment on above: Performed By: #### C BC #### [facility] [address] [address] [address] Patrica Nathan PLT 183 103/ul Normal 150-450 [facility] Comment on above: Performed By: #### C BC #### [facility] [address] [address] [address] Patrica Nathan RBC 5.12 106/ul Normal 4.70-6.10 [facility] Comment on above: Performed By: #### C BC #### [facility] [id number] Patrica Nathan WBC 6.0 103/ul Normal 4.0-11.0 [facility] Comment on above: Performed By: #### C BC #### [facility] [address] [place] [address] ABD/PELV WO W CONon 05-02 CT ABD/PELV WO W CON EXAMINATION: CT ABD /PELV WO W CON, 05/02/2022 7:15 AM EDT HISTORY: Abnormal weight loss COMPARISON: None. TECHNIQUE: CT scan of the abdomen and pelvis was performed without and with IV contrast. CT dose reduction technique was used, including Automated Exposure Control. FINDINGS: LUNG BASES: Moderate centrilobular emphysema. Mild dependent atelectasis. Coronary atherosclerosis. LIVER: No enlargement, atrophy, abnormal density, or significant focal lesion. BILIARY: Layering cholelithiasis without CT evidence of acute cholecystitis PANCREAS: No lesion, fluid collection, ductal dilatation, or atrophy. SPLEEN: No enlargement or focal lesion. ADRENALS: No mass or enlargement. KIDNEYS: Bilateral hypodensities moderate characterize. No hydronephrosis or obstructing nephrolithiasis . BOWEL/MESENTERY: nonobstructive bowel gas pattern. Normal appendix AORTA/VASCULAR: Fusiform dilation of the infrarenal aorta up to 2.8 cm in diameter. Moderate atherosclerosis. Significant atherosclerosis bilateral proximal renal arteries likely right flow significant stenosis estimated to be 60% RETROPERITONEUM: No mass or adenopathy. LYMPH NODES: No adenopathy. URINARY BLADDER: No visible focal wall thickening, lesion, or calculus. PELVIC ORGANS: Mildly enlarged lobular heterogeneous prostate gland with central calcifications ABDOMINAL WALL: Small left inguinal hernia containing fat without strangulation BONES: No bony lesion or fracture. Moderate degenerative changes OTHER: Negative. IMPRESSION: Cholelithiasis without evidence of acute cholecystitis Flow significant stenosis proximal right renal artery Mildly enlarged prostate gland Electronically authenticated by: EVGENY MCCLAIN Date: 2022-05-02 10:56 Normal [facility] PROF 14(COMP METB)on 022 Albumin [Mass/Vol] 4.1 g/dL Normal 3.4-5.0 [facility] Comment on above: Performed By: #### C JV, HSTROPN #### [facility] [address] [address] [address] Patrica Nathan Albumin/Globulin [Mass ratio] 1.4 {ratio} Normal [facility] Comment on above: Performed By: #### C JV, HSTROPN #### [facility] [address] [address] [address] Patrica Nathan ALP [Catalytic activity/Vol] 71 U/L Normal 46-116 [facility] Comment on above: Performed By: #### C JV, HSTROPN #### [facility] [address] [address] [address] Patrica Nathan ALT [Catalytic activity/Vol] 48 U/L Normal 16-63 [facility] Comment on above: Performed By: #### C JV, HSTROPN #### [facility] [address] [address] [address] Patrica Nathan Anion gap [Moles/Vol] 8.1 mmol/L Normal [facility] Comment on above: Performed By: #### C MP, HSTROPN #### [facility] [address] [address] [address] Patrica Nathan AST [Catalytic activity/Vol] 31 U/L Normal 15-37 [facility] Comment on above: Performed By: #### C MP, HSTROPN #### [facility] [address] [place] [address] Dr. Patrica Nathan Bilirubin [Mass/Vol] 1.6 mg/dL Critically high 0.2-1.0 [facility] Comment on above: Performed By: #### C MP, HSTROPN #### [facility] [address] [place] [address] Dr. Patrica Nathan Calcium [Mass/Vol] 9.4 mg/dL Normal 8.5-10.1 [facility] Comment on above: Performed By: #### C MP, HSTROPN #### [facility] [address] [place] [address] Dr. Patrica Nathan Chloride [Moles/Vol] 105 mmol/L Normal 98-107 [facility] Comment on above: Performed By: #### C MP, HSTROPN #### [facility] [address] [place] [address] Dr. Patrica Nathan CO2 [Moles/Vol] 29.0 mmol/L Normal 21.0-32.0 [facility] Comment on above: Performed By: #### C MP, HSTROPN #### [facility] [address] [place] [address] Dr. Patrica Nathan Creatinine [Mass/Vol] 1.01 mg/dL Normal 0.70-1.30 [facility] Comment on above: Performed By: #### C MP, HSTROPN #### [facility] [address] [place] [address] Dr. Patrica Nathan EGFR-AF SOMALI >60 Normal >=60 [facility] Comment on above: Performed By: #### C MP, HSTROPN #### [facility] [address] [place] [address] Dr. Patrica Nathan EGFR-NON AF SOMALI >60 Normal >=60 [facility] Comment on above: Performed By: #### C JV, HSTROPN #### [facility] [address] [place] [address] Dr. Patrica Nathan Globulin (S) [Mass/Vol] 2.9 g/dL Normal [facility] Comment on above: Performed By: #### C MP, HSTROPN #### [facility] [address] [place] [address] Dr. Patrica Nathan Glucose [Mass/Vol] 106 mg/dL Normal 74-106 [facility] Comment on above: Performed By: #### C JV, HSTROPN #### [facility] [address] [place] [address] Dr. Patrica Nathan Potassium [Moles/Vol] 4.1 mmol/L Normal 3.5-5.1 [facility] Comment on above: Performed By: #### C JV, HSTROPN #### [facility] [address] [place] [address] Dr. Patrica Nathan Protein [Mass/Vol] 7.0 g/dL Normal 6.4-8.2 [facility] Comment on above: Performed By: #### C JV, HSTROPN #### [facility] [address] [place] [address] Dr. Patrica Nathan Sodium [Moles/Vol] 138 mmol/L Normal 136-145 [facility] Comment on above: Performed By: #### C JV, HSTROPN #### [facility] [address] [place] [address] Dr. Patrica Nathan Urea nitrogen [Mass/Vol] 18.0 mg/dL Normal 7.0-18.0 [facility] Comment on above: Performed By: #### C JV, HSTROPN #### [facility] [address] [place] [address] Dr. Patrica Nathan Urea nitrogen/Creatinine [Mass ratio] 17.8 mg/mg Normal [facility] Comment on above: Performed By: #### C JV, HSTROPN #### [facility] [address] [place], [place] [address] Dr. Patrica Nathan TSHon 05-02-2022 TSH 2.409 uIU/mL Normal 0.358-3.74 0 [facility] Comment on above: Performed By: #### T SH #### [facility] [address] [place] [address] [id number] [address] Patrica Nathan XR CHEST 2 Von 05-02-2022 XR CHEST 2 V EXAMINATION: XR CHES T 2 V HISTORY: Nicotine dependence in remission COMPARISON: 12/07/2016 TECHNIQUE: PA and lateral FINDINGS: LUNGS: No significant pulmonary parenchymal abnormalities. VASCULATURE: No increased pulmonary vasculature. PLEURA: No pneumothorax, effusion, or pleural thickening. CARDIAC: No cardiomegaly or cardiac silhouette abnormality. MEDIASTINUM: No visible mass or adenopathy. BONES: Mild degenerative disc disease and spondylosis without visible acute abnormalities. OTHER: Negative. IMPRESSION: No acute disease. Electronically authenticated by: EVGENY MCCLAIN Date: 2022-05-02 07:44 Normal [facility] Covid-19 PCR (CVDTB)on 01-16 SARS-CoV-2 (COVID-19) RNA MARIANNE+probe Ql (Unsp spec) Not detected Normal NOT DETECTED [facility] Comment on above: Result Comment: This test is not yet approved or cleared by the [place] FDA. When there are no FDA-approved or cleared tests available, and other criteria are met, FDA can make tests available under an emergency access mechanism called an Emergency Use Authorization (EUA). The EUA for this test is supported by the [place] of Health and Human Service's (HHS's) declaration that circumstances exist to justify the emergency use of in vitro diagnostics for the detection and/or diagnosis of the virus that causes COVID-19. This EUA will remain in effect (meaning this test can be used) for the duration of the COVID-19 declaration justifying emergency of IVDs, unless it is terminated or revoked by FDA (after which the test may no longer be used). When diagnostic testing is negative, the possibility of a false negative should be considered in the context of a patient's recent exposures and the presence of clinical signs and symptoms consistent with SARS-CoV-2. Performed By: #### C VDTBH #### [facility] [address] [address] [address] Patrica Nathan Vital Signs Date Time Vital Sign Value Performing Clinician Facility 07-28-2023 13:13-0500 Blood Pressure Location [facility] [place] 13:13-0500 Diastolic blood pressure 72 mm[Hg] [place] [facility] [place]-28-[place]23 13:13-0500 Heart rate 72 /min [place] [facility] [place]-28-2023 13:13-0500 Respiratory rate 16 /min [place] [facility] [place]-28-2023 13:13-0500 Systolic blood pressure 118 mm[Hg] Angely N[place] [facility] [place]-01-2023 10:15-0500 Body height 187.96 cm [facility] Other 07-01-2023 10:15-0500 Body mass index (BMI) [Ratio] 23.13 kg/m2 [facility] Other 07-01-2023 10:15-0500 Body weight 81.74 kg [facility] Other 07-01-2023 10:15-0500 Diastolic blood pressure 70 mm[Hg] [facility] Other 07-01-2023 10:15-0500 Respiratory rate 12 /min [facility] Other 07-01-2023 10:15-0500 Systolic blood pressure 135 mm[Hg] [facility] Other 06-20-2023 02:33-0400 Diastolic blood pressure 74 mm[Hg] DO [facility] Work Phone: [facility] 06-20-2023 02:33-0400 Heart rate 78 /min DO [facility] Work Phone: [facility] 06-20-2023 02:33-0400 Respiratory rate 16 /min DO [facility] Work Phone: [facility] 06-20-2023 02:33-0400 SaO2% (BldA) [Mass fraction] 96 % DO [facility] Work Phone: [facility] 06-20-2023 02:33-0400 Systolic blood pressure 158 mm[Hg] DO [facility] Work Phone: [facility] 06-19-2023 20:47-0400 Body height 187.96 cm DO [facility] Work Phone: [facility] 06-19-2023 20:47-0400 Body temperature 97.9 [degF] DO [facility] Work Phone: [facility] 06-19-2023 20:47-0400 Body weight 80.3 kg DO [facility] Work Phone: [facility] 06-17-2023 15:45-0400 Body height 187.96 cm [facility] Other [facility] Other 06-17-2023 15:45-0400 Body mass index (BMI) [Ratio] 23.65 kg/m2 [facility] Other 06-17-2023 15:45-0400 Body temperature 97.3 [degF] [facility] Other 06-17-2023 15:45-0400 Body weight 83.55 kg [facility] Other [facility] Other 06-17-2023 15:45-0400 Diastolic blood pressure 57 mm[Hg] [facility] Other [facility] Other 06-17-2023 15:45-0400 Respiratory rate 12 /min [facility] Other 06-17-2023 15:45-0400 Systolic blood pressure 128 mm[Hg] [facility] Other [facility] Other 05-20-2023 08:45-0400 Body height 187.96 cm [facility] Other 05-20-2023 08:45-0400 Body mass index (BMI) [Ratio] 23.62 kg/m2 [facility] Other 05-20-2023 08:45-0400 Body weight 83.46 kg [facility] Other 05-20-2023 08:45-0400 Diastolic blood pressure 82 mm[Hg] [facility] Other [facility] Other 05-20-2023 08:45-0400 Respiratory rate 12 /min [facility] Other 05-20-2023 08:45-0400 Systolic blood pressure 121 mm[Hg] [facility] Other [facility] Other 04-21-2023 11:30-0400 Body height 187.96 cm [facility] Other [facility] Other 04-21-2023 11:30-0400 Body mass index (BMI) [Ratio] 23.34 kg/m2 [facility] Other 04-21-2023 11:30-0400 Body weight 82.46 kg [facility] Other [facility] Other 04-21-2023 11:30-0400 Diastolic blood pressure 65 mm[Hg] [facility] Other [facility] Other 04-21-2023 11:30-0400 Respiratory rate 12 /min [facility] Other [facility] Other 04-21-2023 11:30-0400 Systolic blood pressure 165 mm[Hg] [facility] Other [facility] Other 03-01-2023 08:00-0400 Diastolic blood pressure 82 mm[Hg] DO [facility] Work Phone: [facility] 03-01-2023 08:00-0400 Heart rate 62 /min DO [facility] Work Phone: [facility] 03-01-2023 08:00-0400 Respiratory rate 16 /min DO [facility] Work Phone: [facility] 03-01-2023 08:00-0400 SaO2% (BldA) [Mass fraction] 96 % DO [facility] Work Phone: [facility] 03-01-2023 08:00-0400 Systolic blood pressure 146 mm[Hg] DO [facility] Work Phone: [facility] 03-01-2023 06:58-0400 Body height 187.96 cm DO [facility] Work Phone: [facility] 03-01-2023 06:58-0400 Body weight 84.8 kg DO [facility] Work Phone: [facility] 02-24-2023 08:30-0400 Body height 187.96 cm [facility] Other [facility] Other 02-24-2023 08:30-0400 Body mass index (BMI) [Ratio] 24.21 kg/m2 [facility] Other 02-24-2023 08:30-0400 Body weight 85.55 kg [facility] Other 02-24-2023 08:30-0400 Diastolic blood pressure 67 mm[Hg] [facility] Other [facility] Other 02-24-2023 08:30-0400 Respiratory rate 12 /min [facility] Other 02-24-2023 08:30-0400 Systolic blood pressure 112 mm[Hg] [facility] Other 11-21-2022 11:45-0400 Body height 187.96 cm [facility] Other 11-21-2022 11:45-0400 Body mass index (BMI) [Ratio] 24.98 kg/m2 [facility] Other 11-21-2022 11:45-0400 Body weight 88.27 kg [facility] Other 11-21-2022 11:45-0400 Diastolic blood pressure 73 mm[Hg] [facility] Other 11-21-2022 11:45-0400 Respiratory rate 12 /min [facility] Other 11-21-2022 11:45-0400 Systolic blood pressure 147 mm[Hg] [facility] Other [facility] Other 10-22-2022 08:30-0500 Body height 187.96 cm [facility] Other 10-22-2022 08:30-0500 Body mass index (BMI) [Ratio] 24.73 kg/m2 [facility] Other 10-22-2022 08:30-0500 Body weight 87.36 kg [facility] Other [facility] Other 10-22-2022 08:30-0500 Diastolic blood pressure 64 mm[Hg] [facility] Other [facility] Other 10-22-2022 08:30-0500 Respiratory rate 12 /min [facility] Other [facility] Other 10-22-2022 08:30-0500 Systolic blood pressure 118 mm[Hg] [facility] Other [facility] Other 10-07-2022 09:45-0500 Body height 187.96 cm [facility] Other [facility] Other 10-07-2022 09:45-0500 Body mass index (BMI) [Ratio] 24.31 kg/m2 [facility] Other 10-07-2022 09:45-0500 Body weight 85.91 kg [facility] Other 10-07-2022 09:45-0500 Diastolic blood pressure 70 mm[Hg] [facility] Other 10-07-2022 09:45-0500 Respiratory rate 12 /min [facility] Other 10-07-2022 09:45-0500 Systolic blood pressure 122 mm[Hg] [facility] Other [facility] Other 08-27-2022 10:48-0500 Diastolic blood pressure 82 mm[Hg] DO [facility] Work Phone: [facility] 08-27-2022 10:48-0500 Heart rate 64 /min DO [facility] Work Phone: [facility] 08-27-2022 10:48-0500 Respiratory rate 16 /min DO [facility] Work Phone: [facility] 08-27-2022 10:48-0500 SaO2% (BldA) [Mass fraction] 96 % DO Cisco Nicholson Work Phone: [facility] 08-27-2022 10:48-0500 Systolic blood pressure 146 mm[Hg] DO Cisco Nicholson Work Phone: [facility] 08-27-2022 09:01-0500 Body height 187.96 cm DO Cisco Nicholson Work Phone: [facility] 08-27-2022 09:01-0500 Body temperature 97.8 [degF] DO Cisco Nicholson Work Phone: [facility] 08-27-2022 09:01-0500 Body weight 86.63 kg DO Cisco Nicholson Work Phone: [facility] Encounters Encounter Date Encounter Type Care Provider Facility Start: 07-28-2023 End: 07-29-2023 ambulatory Angely OCAMPO Facility: [place] Start: 07-28-2023 End: 07-28-2023 Patient encounter procedure Angely OCAMPO General Surgery Nill/Said [place] Start: 07-01-2023 End: 07-01-2023 ambulatory Cisco Nicholson [facility] Other Start: 07-01-2023 Transitional care manage srvc 14 day discharge Cisco ipadio [facility] Start: 06-26-2023 ambulatory Angely OCAMPO Facility:[facility] Start: 06-24-2023 End: 06-24-2023 ambulatory Cisco Nicholson [facility] Other Start: 06-24-2023 Telephone encounter Cisco Nicholson [facility] Start: 06-20-2023 End: 06-22-2023 Evaluation and management of inpatient Berhane Jp Facility:[facility] Start: 06-20-2023 Evaluation and management of inpatient DO Cisco Nicholson Work Phone: [facility] Work Phone: Start: 06-20-2023 observation encounter DO Shaji Nicholson Work Phone: [facility] Work Phone: Start: 06-19-2023 End: 06-19-2023 ambulatory Cisco Nicholson [facility] Other Start: 06-19-2023 Telephone encounter Cisco Nicholson [facility] Start: 06-18-2023 End: 06-18-2023 ambulatory Cisco Nicholson Other [facility] Other Start: 06-18-2023 Telephone encounter Cisco Nicholson [facility] Start: 06-17-2023 End: 06-17-2023 ambulatory Cisco Nicholson [facility] Other Start: 06-17-2023 Office outpatient vi sit 15 minutes Cisco Nicholson [facility] Start: 06-17-2023 Telephone encounter Cisco Ball [facility] Start: 06-02-2023 End: 06-02-2023 ambulatory Cisco Ball [facility] Other Start: 06-02-2023 Telephone encounter Cisco Ball [facility] Start: 05-20-2023 End: 05-20-2023 ambulatory Cisco [facility] Other [facility] Other Start: 05-20-2023 Office outpatient vi sit 25 minutes Cisco Nicholson [facility] Start: 05-11-2023 End: 05-11-2023 ambulatory Cisco Nicholson [facility] Other Start: 05-11-2023 Telephone encounter Cisco Nicholson [facility] Start: 04-27-2023 End: 04-27-2023 ambulatory Cisco Nicholson [facility] Other Start: 04-27-2023 Telephone encounter Cisco Nicholson [facility] Start: 04-23-2023 End: 04-23-2023 ambulatory Cisco Nicholson [facility] Other Start: 04-23-2023 Telephone encounter Cisco Nicholson [facility] Start: 04-21-2023 End: 04-21-2023 ambulatory Cisco Nicholson [facility] Other Start: 04-21-2023 Office outpatient vi sit 25 minutes Cisco Nicholson [facility] Start: 03-16-2023 End: 03-16-2023 ambulatory Cisco Nicholson [facility] Other Start: 03-16-2023 Telephone encounter Cisco Nicholson [facility] Start: 03-04-2023 Telephone encounter Cisco Abbe [facility] Start: 03-04-2023 End: 03-04-[address] Cisco [facility]olson [facility] Start: 03-03-2023 End: 03-03-2023 ambulatory Cisco Abbe [facility] Other Start: 03-03-2023 Telephone encounter Cisco Abbe [facility] Start: 03-01-2023 End: 03-02-[address] Cisco Nicholson Facility:[id number] Start: 03-01-2023 Evaluation and management of inpatient DO Cisco Nicholson Work Phone: [facility] Work Phone: Start: 03-01-2023 observation encounter DO Shaji lorena Ball Work Phone: [facility] Work Phone: Start: 02-24-2023 End: 02-24-2023 ambulatory Cisco Ball [facility] Other Start: 02-24-2023 Office outpatient vi sit 25 minutes Cisco Ball [facility] Start: 01-20-2023 End: 01-20-2023 ambulatory Cisco Ball [facility] Other Start: 01-20-2023 Telephone encounter Cisco Abbe [facility] Start: 11-26-2022 End: 11-26-2022 ambulatory [facility] Start: 11-21-2022 End: 11-21-2022 ambulatory Cisco Ball [facility] Other Start: 11-21-2022 Office outpatient vi sit 15 minutes Cisco Ball [facility] Start: 10-22-2022 End: 10-22-2022 ambulatory Cisco Ball [facility] Other Start: 10-22-2022 Office outpatient vi sit 25 minutes Cisco Ball [facility] Start: 10-12-2022 End: 10-12-2022 ambulatory Cisco Ball Facility:[facility] Start: 10-12-2022 End: 10-12-2022 ambulatory DO Cisco Ball Work Phone: [facility] Work Phone: Start: 10-12-2022 End: 10-12-2022 Patient encounter procedure DO Cisco Ball Work Phone: [facility] [place] Work Phone: Start: 10-07-2022 End: 10-07-2022 ambulatory Cisco [facility] Other Start: 10-07-2022 Office outpatient vi sit 15 minutes Cisco Nicholosn [facility] Start: 09-14-2022 End: 09-14-[address] CISCO NICHOLSON Facility:[facility] Start: 09-08-2022 End: 09-08-2022 ambulatory Imad Asaad [facility] Other Start: 09-08-2022 Telephone encounter Imad Asaad [facility] Start: 09-05-2022 End: 09-05-2022 ambulatory Cisco Nicholson [facility] Other Start: 09-05-2022 Telephone encounter Cisco Nicholson [facility] Start: 09-03-2022 End: 09-03-2022 ambulatory Imad Asaad [facility] Other Start: 09-03-2022 Telephone encounter Imad Asaad [facility] Start: 09-01-2022 End: 09-01-2022 ambulatory Imad Asaad [facility] Other Start: 09-01-2022 Telephone encounter Imad Asaad [facility] Start: 08-27-2022 Telephone encounter Stalin HANNA [facility] Start: 08-27-2022 End: 08-27-2022 ambulatory Cisco Nicholson Facility:[facility] Start: 08-27-2022 End: 08-27-2022 Admission to same day surgery center DO Cisco Abbe Work Phone: [facility] Work Phone: Start: 08-27-2022 End: 08-27-2022 ambulatory DO Cisco Abbe Work Phone: [facility] Work Phone: Start: 08-22-2022 End: 08-22-2022 ambulatory Imad Asaad [facility] Other Start: 08-22-2022 Telephone encounter Immallory Christensen [facility] Start: 08-20-2022 End: 08-20-2022 ambulatory Cisco Nicholson [facility] Other Start: 08-20-2022 Telephone encounter Cisco Nicholson [facility] Start: 08-19-2022 End: 08-19-2022 ambulatory Cisco Nicholson [facility] Other Start: 08-19-2022 Telephone encounter Cisco Nicholson [facility] Start: 07-28-2022 End: 07-29-[address] CISCO NICHOLSON Facility:[facility] Start: 07-01-2022 End: 07-01-[address] CISCO NICHOLSON Facility:[facility] Start: 06-29-2022 End: 06-29-[address] CISCO NICHOLSON Facility:[facility] Start: 05-02-2022 End: 05-03-[address] CISCO NICHOLSON Facility:[facility] Start: 03-28-2022 End: 03-28-[address] DAISHA ZULETA Facility:[facility] Start: 03-20-2022 End: 03-20-2022 ambulatory MIGUEL ANGEL SLAUGHTER Facility:[facility] Start: 02-04-2022 End: 02-04-[address] CISCO NICHOLSON Facility:[facility] Procedures Date Procedure Procedure Detail Performing Clinician Start: 06-20-2023 SARS-CoV-2, Influenza & RSV (PCR) DO Juan Nicholson Work Phone: Start: 03-01-2023 CT of head without contrast DO Cisco Nicholson Work Phone: Start: 03-01-2023 Plain chest X-ray DO Cisco Nicholson Work Phone: Start: 08-27-2022 Esophagogastroduodenoscopy DO Cisco salazar Work Phone: Start: 08-27-2022 Colonoscopy Angely OCAMPO Start: 08-27-2022 Esophagogastroduodenoscopy Angely NILL Start: 07-28-2022 PSA screening MIGUEL ANGEL SLAUGHTER Comment on above: Performed By: #### PSASC #### [facility] [address] [address] [address] Patrica Nathan Cardiac catheterization Renato OCAMPO History of operative procedure on shoulder Angely OCAMPO Comment on above: x3 Repair of right inguinal hernia Angely OCAMPO Plan of Treatment Date Care Activity Detail Author Start: 06-20-2023 Plain chest X-ray XR chest 2V* [facility] Start: 06-20-2023 XR Chest 2 Views [facility] Start: 06-20-2023 Hospital admission [facility] Start: 06-20-2023 [facility] Start: 06-20-2023 CT of head without contrast CT head/brain wo con [facility] Start: 06-20-2023 CT Unspecified body region WO contrast [facility] Start: 03-01-2023 Physical therapy procedure [facility] Start: 03-01-2023 Referral to occupati onal therapist [facility] Start: 03-01-2023 Referral to neurologist [facility] Start: 03-01-2023 Hospital admission [facility] Start: 03-01-2023 [facility] Start: 08-27-2022 [facility] Helicobacter pylori Ag [Presence] in Stool by Immunoassay [facility] Patient Education Colon Polypectomy (DC) [facility] Work Phone: Immunizations Immunization Date Immunization Notes Care Provider Fa cili 07-01-2023 influenza, high dose seasonal, preservative-free Cisco Nicholson [facility] Other 07-04-2022 SARS-CoV-2 (COVID-19 ) [id number] Angely OCAMPO [facility] [place] 06-05-2022 influenza virus vaccine, split virus (incl. purified surface antigen) Cisco Nicholson [facility] Other 03-28-2022 diphtheria, tetanus toxoids and acellular pertussis vaccine, unspecified formulation Cisco Abbe [facility] Other 11-16-2021 SARS-CoV-2 mRNA (iwpnvikdtqx-ffzi-zeel ose) vaccine [place]ely [facility] 06-28-2021 influenza virus vaccine, split virus (incl. purified surface antigen) Cisco Nicholson [facility] Other 05-18-2021 SARS-CoV-2 (COVID-19 ) mRNA BNT-162b2 vax Angely [facility] Comment on above: Result Comment: 2022: [id number] 10-06-2020 SARS-CoV-2 (COVID-19 ) mRNA BNT-162b2 vax Angely [facility] [place] on above: Result Comment: 2022: [id number] 09-15-2020 COVID-19 Vaccine Pfizer - Documentation Purposes Only Cisco Nicholson [facility] Comment on above: Result Comment: 2022: [id number] 05-30-2020 influenza virus vaccine, split virus (incl. purified surface antigen) Cisco Nicholson [facility] Other 06-01-2019 influenza virus vaccine, split virus (incl. purified surface antigen) Cisco Nicholson [facility] Other 06-09-2018 influenza virus vaccine, split virus (incl. purified surface antigen) Cisco Nicholson [facility] Other 05-14-2017 tetanus and diphther ia toxoids, adsorbed, preservative free, for adult use (5 Lf of tetanus toxoid and 2 Lf of diphtheria toxoid) Cisco Nicholson [facility] Other 05-26-2016 influenza virus vaccine, split virus (incl. purified surface antigen) Cisco Nicholson [facility] Other 11-27-2015 pneumococcal conjuga te vaccine, 13 valent Cisco Nicholson [facility] Other 05-30-2015 influenza virus vaccine, split virus (incl. purified surface antigen) Cisco Nicholson [facility] Other 06-14-2013 pneumococcal polysaccharide vaccine, 23 valent Cisco Nicholson [facility] Other 05-23-2013 tetanus and diphther ia toxoids, adsorbed, preservative free, for adult use (5 Lf of tetanus toxoid and 2 Lf of diphtheria toxoid) Cisco Nicholson Other [facility] Other NEGATED: Highlighted row has not occurred!07-28-2023 influenza virus vaccine, unspecified formulation Angely OCAMPO [facility] [place] Payers Date Payer Category Payer Self-pay 1961 Medicare [id number] 1961 Unknown [id number] 1945 Unknown [id number] 2.16.84 [id number] 1943 Unknown [id number] .16.84 [id number] 1943 Unknown [id number] 2.16.84 [id number] 1943 Unknown [id number] 2.16.84 [id number] 1943 Unknown [id number] 2.16.84 0.1.102426.3.579.2.593 1943 Unknown [id number] 2.16.84 [id number] 1943 Unknown [id number] 2.16.84 [id number] 1943 Unknown [id number] 2.16.84 0.1.221276.3.579.2.593 1943 Unknown [id number] 2.16. [id number] 1943 Unknown [id number] 2.16.8 [id number] Unknown [id number] 2.16.8 40.1.309400.3.579.2.531 Unknown [id number] 2.16.8 40.1.030749.3.579.2.531 Unknown [id number] 2.16.8 [id number] Unknown [id number] 2.16.8 [id number] Social History Date Type Detail Facility Tobacco smoking stat us [facility] Unknown if ever smoked [facility] Work Phone: Start: 1945 Sex Assigned At Male F [facility] Sex Assigned At [facility] Start: 03-01-2023 End: 07-28-2023 Tobacco smoking status NHIS Ex-smoker (finding) [facility] Tobacco smoking status Never Gener al [facility] [place] Goals Date Patient Goal Desired Activity /State Functional Status Date Assessment Result Facility 07-28-2023 Functional Status N/A [facility] Clinical Notes 03-20-2022 to 07-28-2023 Note Date & Type Note Facility 07-28-2023 Note Chief Complaint consultation for left inguinal hernia HPI Staff 78 year old male presents on consultation from Dr. Nicholson for left inguinal hernia. Reports he noted bulge approximately 6 months ago. Reports moderate increase in size and discomfort. Reports he is able to reduce this without difficulty. Denies nausea, vomiting or bowel changes. No imaging completed. History of Present Illness 78 yo male with h/o COPD, htn, hypercholesterolemia, neuropathy, GERD, GREYSON, referred for left inguinal hernia; patient reports 6 month h/o enlarging bulge; occasional discomfort, no skin changes, no N/V; some constipation; hernia is reducible; only abd operation remote RI; on baby asa daily, no NSAIDs; no tobacco use. Review of Systems PHQ Score Initial Depression Screen Score: 0 SCORE ROS - Provider Constitutional: no fever, no sweats, no weight loss. Eyes: no glasses, no blurred vision, no visual loss. ENMT: no dentures, no hoarseness, no swallowing difficulties, no hearing loss, no ear infection(s), no nose bleeds. Cardiovascular: normal blood pressure, no chest pain, regular heartbeat, no heart murmur. Respiratory: no shortness of breath, no cough, no asthma, no wheezing. Gastrointestinal: no nausea, no vomiting, no diarrhea, no constipation, no blood in stool, no change in bowel habits, no abdominal pain, no hepatitis. Genitourinary: no kidney stones, no urine infection, no dysuria. Musculoskeletal: no pain, no weakness. Skin: no changing moles, no rash, no skin lumps. Neurologic: no seizures, no epilepsy, no headache. Psychiatric: no emotional or psychiatric problem. Heme/Lymph: no bleeding problems, no anemia, no blood clots, no transfusions. Allergy/Immunologic: no swollen lymph nodes/glands, no IV drug abuse. Other: Additional ROS info: Except as noted in the above Review of Systems and in the History of Present Illness, all other systems have been reviewed and are negative or noncontributory. Physical Exam Vitals & Measurements HR: 72(Peripheral) RR: 16 BP: 118/72 HT: 74 in HT: 187.9 cm WT: 83.4 kg WT: 183.48 lb BMI: 23.62 HEENT: normal conjunctiva, sclera clear, no scleral icterus, EOM intact, PERRLA, oral mucosa moist without lesions. Neck: trachea midline, no mass, symmetric, no thyromegaly or nodules, no adenopathy Respiratory: lungs CTA, respirations non labored. Cardiovascular: regular rate and rhythm, no murmur, no pedal edema or varicosities. Gastrointestinal: soft, non distended, no tenderness, no masses, reducible left inguinal hernia, nontender, no skin changes, no right inguinal hernia, diastasis recti no, no hepatosplenomegaly; normal bs Lymphatic: no cervical adenopathy, no supraclavicular adenopathy. Musculoskeletal: normal gait, digits and nails without infection, nodes, cyanosis, clubbing. Skin: no rashes, no lesions, no ulcers, no subcutaneous nodules, induration. Psychiatric/Neuro: oriented to time, place, person, judgement normal, affect appropriate for age, insight intact, no focal deficits. Tests: review of old records completed , Discussed surgical options, risks, and possible complications with patient. Assessment/Plan 1. Reducible left inguinal hernia (K40.90: Unilateral inguinal hernia, without obstruction or gangrene, not specified as recurrent) plan left inguinal herniorrhaphy with mesh insertion; informed consent obtained. Ancef 2 gms IV prior to OR TAP block per anesthesia SCDs Follow-up No qualifying data available Problem List/Past Medical History Ongoing Adenomatous polyp of colon BMI 23.0-23.9, adult Cholelithiasis without obstruction Emphysema/COPD Encephalopathy Essential hypertension Gastro-esophageal reflux disease with esophagitis Generalized anxiety disorder Glaucoma Hypercholesterolemia Irritable bowel syndrome characterized by constipation Neuropathy Primary insomnia Reducible left inguinal hernia Historical No qualifying data Procedure/Surgical History Colonoscopy (08/27/2022), EGD - esophagogastroduodenoscopy (08/27/2022), Cardiac catheterization, History of shoulder surgery, Repair of right inguinal hernia. Medications aspirin 81 mg Oral EC Tab, 81 mg= 1 tab(s), Oral, Daily atorvastatin 80 mg Tab, 80 mg= 1 tab(s), Oral, Daily busPIRone 15 mg Tab, 15 mg= 1 tab(s), Oral, BID gabapentin 300 mg Cap, 300 mg= 1 cap(s), Oral, QID latanoprost Opth 0.005% Nisa, 1 drop(s), OPTH, Once a day (at bedtime) Metoprolol tartrate 25 mg Tab, 12.5 mg= 0.5 tab(s), Oral, BID multivitamin, 1 tab(s), Oral, Daily Simbrinza 0.2%-1% ophthalmic suspension, 1 drop(s), Eye-Both, BID temazepam 15 mg Cap, 15 mg= 1 cap(s), Oral, Once a day (at bedtime) Allergies No Known Allergies No Known Medication Allergies Social History Alcohol - Denies Alcohol Use, 07/28/2023 Substance Abuse - Denies Substance Abuse, 07/28/2023 Tobacco Former smoker, quit more than 30 days ago Tobacco Use:. Never Smokeless Tobacco Use:. Cigarettes, 2 per day. (more content not included)... [facility] Comment on above: Result Comment: Elec tronically Signed By: TOO TEJADA, Angely Lauren.jose\Date and Time Signed: 07/28/23 20:29 EST 07-01-2023 Evaluation note Encounter Date Diagnosis Assessment Notes Jun, COVID-19 (ICD-10 - U07.1) MS changes due to COVID infection vs Paxlovid. Required hospital stay w/ Neuro consultation No acute neurologic findings on MRA/MRI No specific laboratory abnormality to explain behavior Continue supportive care w/ expectant gradual improvement Jun, Metabolic encephalopathy (ICD-10 - G93.41) THis has resolved after d/c home. Normal environment reassuring No further testing recommended Jun, MCI (mild cognitive impairment) (ICD-10 - G31.84) COntinues w/ MCI but very functional and has resumed work/home activities and duties. states he is having no difficulty w/ job/tasks. Jun, Primary hypertension (ICD-10 - I10) This patient is instructed to consume a healthy, low-fat, low-salt diet. They are also encouraged to continue exercise to achieve/maintain a normal BMI. Jun, Elevated cholesterol (ICD-10 - E78.00) Instructed on diet and exercise with continued statin therapy.Discussed the beneficial effects of lowering cholesterol in reducing the risk for cerebrovascular and cardiovascular disease. Jun, Cerebral atherosclerosis (ICD-10 - I67.2) Continue primary prevention measures. Control BP, Chol and keep active w/ healthy diet Jun, GREYSON (generalized anxiety disorder) (ICD-10 - F41.1) Discussed change in therapy but recommend awaiting Neuropsych evaluation. COntinue Buspar for now but discussed SSRI 15 Nov, 2023 Peripheral polyneuropathy (ICD-10 - G62.9) Stable w/ treatment Fall precuations. Discussed tapering dose of Gabapentin [facility] Other 11-02-2023 Evaluation note* Encounter Date Diagnosis Assessment Notes Treatment Notes Treatment Clinical Notes Jun, COVID-19 (ICD-10 - U07.1) [facility] Other 11-01-2023 Evaluation note* Encounter Date Diagnosis Assessment Notes Treatment Notes Treatment Clinical Notes Jun, Indirect left inguinal hernia (ICD-10 - K40.90) Referral to Surgery for urgent evaluation and surgery. Instructed to go to ER for increased pain, abdominal distention or fever Jun, Primary hypertension (ICD-10 - I10) This patient is instructed to consume a healthy, low-fat, low-salt diet. They are also encouraged to continue exercise to achieve/maintain a normal BMI. Jun, Peripheral polyneuropathy (ICD-10 - G62.9) Fall precautions, inspect feet daily for cuts. Jun, Elevated cholesterol (ICD-10 - E78.00) Instructed on diet and exercise with continued statin therapy.Discussed the beneficial effects of lowering cholesterol in reducing the risk for cerebrovascular and cardiovascular disease. Jun, GREYSON (generalized anxiety disorder) (ICD-10 - F41.1) Healthy diet, exercise and keep active Jun, Gastroesophageal reflux disease with esophagitis without hemorrhage (ICD-10 - K21.00) Diet instructions: Smaller portions, avoid eating and laying flat, avoid eating or drinking prior to bedtime. Weight loss. [facility] Other 10-04-2023 Evaluation note* Encounter Date Diagnosis Assessment Notes Treatment Notes Treatment Clinical Notes May, Primary hypertension (ICD-10 - I10) This patient is instructed to consume a healthy, low-fat, low-salt diet. They are also encouraged to continue exercise to achieve/maintain a normal BMI. May, Elevated cholesterol (ICD-10 - E78.00) Instructed on diet and exercise with continued statin therapy.Discussed the beneficial effects of lowering cholesterol in reducing the risk for cerebrovascular and cardiovascular disease. May, Confusion (ICD-10 - R41.0) MoCA Several instances of confusion and unexplained behavior. No obvious etiology: consider vascular dementia, alzheimer's dementia and COVID sequela. Monitor for now w Neuro referral if no improvement MRI completed w/o findings to explain symptoms May, COVID (ICD-10 - U07.1) Finished Paxlovid. Healthy diet, push fluids, keep active. Completed 10 day quarantine May, Peripheral polyneuropathy (ICD-10 - G62.9) Fall precautions, inspect feet daily for cuts. Continue Gabapentin May, GREYSON (generalized anxiety disorder) (ICD-10 - F41.1) Healthy diet, exercise and keep active. No change in medications. May, Gastroesophageal reflux disease with esophagitis without hemorrhage (ICD-10 - K21.00) Diet instructions: Smaller portions, avoid eating and laying flat, avoid eating or drinking prior to bedtime. Weight loss. May, Cigarette nicotine dependence in remission (ICD-10 - F17.211) Continue abstinence May, Visual hallucination (ICD-10 - R44.1) Related to neurodegenerative process vs recent COVID infection. Monitor for now. Recheck in month, consider Neurology referral [facility] Other 09-25-2023 Evaluation note* Encounter Date Diagnosis Assessment Notes Treatment Notes Treatment Clinical Notes Apr, COVID (ICD-10 - U07.1) [facility] Other 09-07-2023 Evaluation note* Encounter Date Diagnosis Assessment Notes Treatment Notes Treatment Clinical Notes Apr, Right lower quadrant abdominal pain (ICD-10 - R10.31) [facility] Other 09-05-2023 Evaluation note* Encounter Date Diagnosis Assessment Notes Treatment Notes Treatment Clinical Notes Apr, Right lower quadrant abdominal pain (ICD-10 - R10.31) Hx of cholelithiasis, left inguinal hernia of unknown contribution to symptoms. Persistent constipation w/ small caliber stool. Associated unintentional weight loss. CT to compare w/ last year: 20lbs weight loss since presious scan Completed Colonoscopy w/o abnormal findings Hx of H. Pylori, successfully treated Apr, Unexplained weight loss (ICD-10 - R63.4) Completed evaluation last year, which included CT abdomen/pelvis, labs, EGD and Colonoscopy. H. Pylori dx and treated w/o any additional findings to explain his symptoms. Recheck CT/labs Refer back to GI for unexplained weight loss. Apr, Non-recurrent unilateral inguinal hernia without obstruction or gangrene (ICD-10 - K40.90) If evaluation negative, would consider referral to Surgeon. Not having symptoms of strangulation but has altered his bowel habits. - narrow caliber BM Apr, Primary hypertension (ICD-10 - I10) This patient is instructed to consume a healthy, low-fat, low-salt diet. They are also encouraged to continue exercise to achieve/maintain a normal BMI. Patient is instructed on home BP measurements: - rest for 5 minutes w/o talking- positioned w/ feet on floor and arm supported- average best 2/3 readings w/ goal < 135/85 Apr, Peripheral polyneuropathy (ICD-10 - G62.9) Chronic w/ adverse effect w/ balance and gait. ER visit for pain and weakness w/o findings to explain symptoms. Referred to Neurology w/o additional testing ordered Apr, Calculus of gallbladder without cholecystitis without obstruction (ICD-10 - K80.20) Denies symptoms suggestive of cholecystitis or choledocholithiasis . Denies post prandial RUQ/back pain, N/V. Unlikely culprit of weight loss w/ no evidence of biliary obstruction Apr, Irritable bowel syndrome with constipation (ICD-10 - K58.1) Increased anxiety, may be contributing to his symptoms Metamucil tried and failed to improve his symptoms. Suggested Miralax qod CT abd/pelvis w/ consideration for referral back to GI Apr, History of Helicobacter pylori infection (ICD-10 - Z86.19) Treatment regimen completed but resulted in severe abdominal discomfort, dehydration, profound weakness resulting in a trip to ER for IV hydration. [facility] Other 07-31-2023 Evaluation note* Encounter Date Diagnosis Assessment Notes Treatment Notes Treatment Clinical Notes Feb, Primary insomnia (ICD-10 - F51.01) [facility] Other 07-18-2023 Evaluation note* Encounter Date Diagnosis Assessment Notes Treatment Notes Treatment Clinical Notes Feb, Peripheral polyneuropathy (ICD-10 - G62.9) [facility] Other 07-11-2023 Evaluation note* Encounter Date Diagnosis Assessment Notes Treatment Notes Treatment Clinical Notes Feb, Elevated cholesterol (ICD-10 - E78.00) Instructed on diet and exercise with continued statin therapy.Discussed the beneficial effects of lowering cholesterol in reducing the risk for cerebrovascular and cardiovascular disease. Feb, Primary hypertension (ICD-10 - I10) This patient is instructed to consume a healthy, low-fat, low-salt diet. They are also encouraged to continue exercise to achieve/maintain a normal BMI. Feb, Gastroesophageal reflux disease with esophagitis without hemorrhage (ICD-10 - K21.00) Diet instructions: Smaller portions, avoid eating and laying flat, avoid eating or drinking prior to bedtime. Weight loss. Feb, GREYSON (generalized anxiety disorder) (ICD-10 - F41.1) Healthy diet, exercise and keep active. Proper sleep routine. Feb, Peripheral polyneuropathy (ICD-10 - G62.9) Inspect feet daily for cuts and ulcers Fall precautions Continue medical therapy Feb, Irritable bowel syndrome without diarrhea (ICD-10 - K58.9) Healthy low fat, high protein diet. Failed Metamucil trial Symptoms intermittent and not severe, no treatment other than diet Feb, Weight loss (ICD-10 - R63.4) Complete lab/XR work up 7 months earlier. Nothing to explain patients weight loss Completed EGD/colonoscopy: polpy, gastritits, H. Pylori Feb, Fatigue, unspecified type (ICD-10 - R53.83) Healtlhy diet, exercise and proper sleep routine [facility] Other 06-06-2023 Evaluation note* Encounter Date Diagnosis Assessment Notes Treatment Notes Treatment Clinical Notes Jan, Peripheral polyneuropathy (ICD-10 - G62.9) [facility] Chief Complaint: Patient here for 1 year follow up CAD, hypertension, and hyperlipidemia. Had routine labs in Jul and Aug. Patient said Dr. Nicholson dropped his aspirin down to every other day due to easy bruising. He fell in Nov in a bath rub and broke his rib. He stills works every day. Says he feels good. HPI: Mr. Patel presents to clinic for routine follow-up. PMHx: CAD, HTN, HLD Seeing an paint specialist, was told he has glaucoma. Denies any cardiac complaints including no CP, dyspnea at rest or exertion, orthopnea, PND, LE edema, dizziness, LH, palpitations, syncope. Labs 07/17/2021 CBC-unremarkable BMP-creatinine 0.92, BUN 18, K4.7, NA 140, GFR greater than 60 TSH-2.614 Lipids 07/17/2021: Cholesterol 96, HDL 33, trig 177, LDL 27 Cardiovascular Laboratory Report (12/01/2016) FINAL IMPRESSIONS: 1. Moderate disease of the left anterior descending coronary artery. 2. Plaque disease with ectasia of the right coronary artery. 3. Normal global left ventricular systolic function by noninvasive imaging. RECOMMENDATIONS: 1. Aggressive cardiovascular risk factor modification. 2. Optimization of medical management; aspirin, a beta zachary, a statin and an angiotensin-converting enzyme inhibitor or receptor zachary are indicated. 3. Will switch his Zocor to Lipitor 80 mg a day with a follow-up liver function tests and fasting lipid profile in 6 to 8 weeks. 4. A 30-day event monitor will be arranged for the patient as an outpatient. 5. Follow up with me in the [facility] in 1 to 2 months. 6. Follow up with Dr. Nicholson as scheduled; would recommend a neurological evaluation given his presenting symptoms. ECHO 11/10/2016: preserved LV EF, normal RV size and function, no significant valvular disease NM stress test 10/17/2016: negative for ischemia : Doing well overall. Still physically active, no chest pain, no shortness of breath. Does have leg swelling at the end of a long day. No orthopnea, no paroxysmal external dyspnea. Family history: Multiple first-degree relatives with heart attacks and deaths in the 50s Cardiology ROS: Review of Systems HENT: Positive for hearing loss. Cardiovascular: Positive for leg swelling (end of day, resolves by morning). All other systems reviewed and are negative. Past Medical History He has no past medical history on file. Surgical History He has no past surgical history on file. Social History He has no history on file for tobacco use, alcohol use, and drug use. Family History No family history on file. Allergies Patient has no allergy information on record. Medications Current Outpatient Medications: atorvastatin (Lipitor) 80 mg tablet, TAKE 1 TABLET BY MOUTH DAILY, Disp: 90 tablet, Rfl: 3 metoprolol tartrate (Lopressor) 25 mg tablet, TAKE ONE-HALF TABLET BY MOUTH TWICE DAILY, Disp: 90 tablet, Rfl: 3 Last Recorded Vitals Patient Vitals for the past 24 hrs: BP Pulse SpO2 Height Weight 11/26/22 0912 147/80 61 98 % 1.88 m (6' 2 ) 88.9 kg (196 lb) Physical Examination: GENERAL: alert and oriented x3, well developed, in no acute distress. HEAD: atraumatic, normocephalic. EYES: PRIYA, EOMI. NECK: trachea midline, no JVD present, no carotid bruits present. CARDIAC: S1, S2 present. RRR. No murmur, rubs, or gallops. RESPIRATORY: CTAB, no increased effort of breathing, no rales, rhonchi, or wheezing. ABDOMEN: soft, nontender, nondistended. EXTREMITIES: no lower extremity edema, peripheral pulses are 2+ bilaterally. No rash/skin discoloration present. NEURO: strength/sensation equal and symmetric in bilateral upper and lower extremities. PSYCH: appropriate mood, affect, and judgement. Investigations: Cardiovascular Laboratory Report (12/01/2016) FINAL IMPRESSIONS: 1. Moderate disease of the left anterior descending coronary artery. 2. Plaque disease with ectasia of the right coronary artery. 3. Normal global left ventricular systolic function by noninvasive Lipids 07/17/2021: Cholesterol 96, HDL 33, trig 177, LDL 27 Assessment: 1. Essential hypertension - Currently well controlled Reviewed labs from December of last year and renal function normal I10: Essential (primary) hypertension 2. Mixed hyperlipidemia - Continue statin, reviewed labs from 12/25/2018 Total cholesterol 104 HDL 31 LDL 46 triglycerides 32, liver function with within normal E78.2: Mixed hyperlipidemia 3. Coronary arteriosclerosis in [place] artery - Continue medications as prescribed including aspirin, Lipitor, metoprolol I25.10: Atherosclerotic heart disease of [place] coronary artery without angina pectoris metoprolol tartrate 25 mg tablet - TAKE ONE-HALF TABLET BY MOUTH TWICE DAILY Qty: 90 tablet(s) Refills: 3 Pharmacy: [facility] Plan: Continue medi (more content not included)...[facility] 11-21-2022 Evaluation note* Encounter Date Diagnosis Assessment Notes Treatment Notes Treatment Clinical Notes Nov, Skin tear of left elbow without complication, initial encounter (ICD-10 - S51.012A) Cleanse w/ soap and water daily. Keep clean an dry. Mupirocin bid and Cephalexin bid x 5 days Nov, Primary hypertension (ICD-10 - I10) This patient is instructed to consume a healthy, low-fat, low-salt diet. They are also encouraged to continue exercise to achieve/maintain a normal BMI. [facility] Other 03-08-2023 Evaluation note* Encounter Date Diagnosis Assessment Notes Treatment Notes Treatment Clinical Notes Oct, Primary hypertension (ICD-10 - I10) This patient is instructed to consume a healthy, low-fat, low-salt diet. They are also encouraged to continue exercise to achieve/maintain a normal BMI. Oct, Elevated cholesterol (ICD-10 - E78.00) Diet and exercise with continued statin therapy. Oct, Gastroesophageal ref lux disease with esophagitis without hemorrhage (ICD-10 - K21.00) Diet instructions: Smaller portions, avoid eating and laying flat, avoid eating or drinking prior to bedtime. Weight loss. Oct, GREYSON (generalized anxiety disorder) (ICD-10 - F41.1) Healthy diet, keep active, relax/exercise. Increase Buspar to bid and update office in couple weeks SSRI? Oct, Peripheral polyneuropathy (ICD-10 - G62.9) Inspect feet daily for cuts. Fall precautions. Continue Neurontin Oct, Cigarette nicotine dependence in remission (ICD-10 - F17.211) Continue abstinence [facility] Other 02-21-2023 Evaluation note* Encounter Date Diagnosis Assessment Notes Treatment Notes Treatment Clinical Notes Sep, Primary hypertension (ICD-10 - I10) This patient is instructed to consume a healthy, low-fat, low-salt diet. They are also encouraged to continue exercise to achieve/maintain a normal BMI. Sep, Gastroesophageal ref lux disease with esophagitis without hemorrhage (ICD-10 - K21.00) Diet instructions: Smaller portions, avoid eating and laying flat, avoid eating or drinking prior to bedtime. Weight loss. Sep, GREYSON (generalized anxiety disorder) (ICD-10 - F41.1) Healthy diet and keep active. Buspar daily, discussed SSRI? Sep, Peripheral polyneuropathy (ICD-10 - G62.9) Fall precautions. Inspect feet daily for cuts. [email or web address] Other 01-18-2023 Evaluation note* Encounter Date Diagnosis Assessment Notes Treatment Notes Treatment Clinical Notes Aug, Helicobacter pylori (H. pylori) (ICD-10 - A04.8) [facility] Other 01-11-2023 History and physical note Author Maryjane Christensen [facility] August 27, 2022 10:16am Note Date/Time August 27, 2022 1 0:16am [facility] [address] [place] [address] Gastroenterology H&P Signed Patient: Yonatan Patel MR#: [id number] : 1945 Acct:[id number] Age/Sex: 77 / M Adm Date: 3 Loc: Room: Type: [facility] Attending Dr: Alek Oliva MD Copies to: Cisco Nicholson,MD Alek Wang MD~ Date of Service: 08/27/2022 HISTORY & PHYSICAL: Patient's history with special attention to the cardiovascular, pulmonary systems and the current problem was reviewed with the patient immediately prior to the procedure. Present medications and doses reviewed in the EMR. Allergies and pertinent laboratory tests were also reviewedat this time in the EMR. The physical examination, as below, was then performed. Indication, assessment and HPI: Weight loss and change in bowel habit Family history of GI malignancy? No PHYSICAL EXAMINATION Mouth and Pharynx : Moist mucus membranes, normal dentition Cardiac: Regular rate, regular rhythm Pulmonary: Clear to auscultation bilaterally, no wheezing Neurological: Alert and oriented x3, no focal deficits noted Abdomen: Abdomen soft, non-tender REVIEW OF SYSTEMS Constitutional: Denies malaise, fevers Cardiovascular: Denies chest pain, palpitations Respiratory: Denies shortness of breath, wheezing Gastrointestinal: Per HPI Genitourinary: Denies dysuria, polyuria Musculoskeletal: Denies joint swelling, joint stiffness Neurological: Denies numbness, tingling Integumentary: Denies rashes, skin lesions Endocrine: Denies fatigue, weight loss Written informed consent obtained from the patient. Risks (including but not limited to perforation, infection, bloating, bleeding, need for emergent surgeryand loss of life), benefits and alternatives explained and questions answered. The patient verbalized understanding. Based on history patient is an appropriate candidate for the procedure. Maryjane Christensen M.D. Documented By: Maryjane Christensen MD 08/27/22 1016 Signed By: <Electronically signed by Maryjane Christensen MD> 08/27/22 1016 [facility] Work Phone: [phone]) 497-181301-11-2023 Procedure [facility]* Encounter Date Diagnosis Assessment Notes Treatment Notes Treatment Clinical Notes Aug, Primary insomnia (ICD-10 - F51.01) [facility] Other 08-04-2022 NoteHISTORY AND PHYSICAL EXAMINATION Date:03/19/2022 HISTORY: The patient is a 76-year-old white male who complains of declining vision out of his right eye. He believes the onset of this has been slow and gradual over the last 2-3 years. He is bothered mostly by glare at night time causing headlights to become splayed out. He also states of a difficulty seeing road signs at a distance and the television as well as computer screen. Additionally, he suffers from primary open angle glaucoma and is concerned about the progression of his disease state. He feels that he is getting his drops in adequately; however, misses sometimes and is worried about continued vision loss due to this. PAST OCULAR HISTORY 1. Status post cataract extraction with intraocular lens placement of the left eye. 2. Status post Hydrus stent implantation left eye. 3. Status post SLT bilaterally. 4. Primary open angle glaucoma bilaterally. PAST MEDICAL HISTORY 1. Hypercholesterolemia. 2. Shoulder surgery bilaterally. 3. Hernia repair. SOCIAL HISTORY: Denies tobacco, alcohol or recreational drug abuse. SYSTEMIC MEDICATIONS: Include temazepam, gabapentin, doxycycline, buspirone, atorvastatin, metoprolol. ALLERGIES TO MEDICATIONS: Denies. REVIEW OF SYSTEMS: No pertinent positives. PHYSICAL EXAMINATION: VITALS: Blood pressure measured at 163/80 with a respiratory rate of 12 and pulse of 77. GENERAL: He is awake, alert and oriented x3, well developed, well nourished, in no acute distress. HEART: Regular rate and rhythm. LUNGS: Clear bilaterally. ABDOMEN: Soft, non-tender, non-distended. EXTREMITIES: No pitting edema. OPHTHALMIC EXAM: Revealed a visual acuity of 20/60 -1 in the right and 20/80 -1 in the left eye. Pupils motility, muscle balance and confrontational visual gonzalez within normal limits bilaterally. Pressures are measured at 11 and 13, right and left eye respectively. Slit lamp exam revealed blepharitis with a severe decrease in tear film bilaterally. Conjunctiva, cornea, anterior chamber and iris were within normal limits bilaterally. Lens status demonstrated 2-3+ nuclear sclerosis and multiple vacuoles bilaterally. FUNDUS EXAM: Revealed good view with good dilation bilaterally. Optic discs, macula, vessels, periphery and vitreous were within normal limits bilaterally. ASSESSMENT/PLAN: 1. Visually significant cataract, right eye. After the risks, benefits, alternatives as well as expectations were delivered to the patient, he elected to go forward with cataract removal. He understands the risks include but not limited to infection, bleeding, loss of vision or loss of the eye itself. Secondly, he understands that postoperatively he is likely to require spectacle correction for his best visual acuity. Finally, a complete ophthalmic exam was performed and there was not determined to be any other source of vision decline other than that of cataract. 2. Primary open angle glaucoma, moderate severity right eye. After risks, benefits, alternatives as well as expectations were delivered to the patient, he elected to receive the Hydrus stent at the time of his cataract removal procedure. He understands the risks include but not limited to those listed for the cataract removal process, but also an increased risk of intraocular bleeding at the time of or shortly after the procedure. He also understands that this does not guarantee the possible progression of the disease state of glaucoma. This also does not guarantee the elimination of requirements of drops to be placed on the surface of the eye. Finally, he understands that it is possible that the application of this stent may not be able to take place due to anatomic irregularities. After understanding all risks as well as expectations, he elected for the procedures as listed above and will be doing so in the near future. 3. [id number] patient was briefed in the office and consented for elective cataract surgery in the setting of the pandemic of coronavirus. He understands that he is at a heightened risk of going into a hospital setting, however, feels that his activities of daily living are severely enough depleted by his cataracts that he is willing to incur this risk and go forward with this elective procedure.[facility] [id number] NoteOPERATIVE NOTE OPERATION DATE: 03/20/2022 SURGEON: Miguel Angel Slaughter D.O. PREOPERATIVE DIAGNOSIS: 1. Nuclear sclerotic cataract right eye. 2. Primary open angle glaucoma, moderate severity, right eye. POSTOPERATIVE DIAGNOSIS: 1. Nuclear sclerotic cataract right eye. 2. Primary open angle glaucoma, moderate severity, right eye. PROCEDURE NAME: 1. Cataract extraction with intraocular lens placement of the right eye. 2. Hydrus stent implantation right eye. ANESTHESIA: Topical. ESTIMATED BLOOD LOSS: Zero. COMPLICATIONS: None. PROCEDURE: The patient was brought to the Operating Room in supine position. After proper identification, the right eye was prepped and draped in a sterile ophthalmic fashion. A paracentesis created at the 11 o'clock position. Approximately 1 mL of unpreserved Xylocaine was injected into the anterior chamber followed by Amvisc Plus. Using a 2.6 mm Keratome blade, a clear corneal incision was created at the 8 o'clock limbus. A cystotome was then used to begin a curvilinear capsulorrhexis that was continued for 360 degrees with the Utrata forceps. BSS on a 26 gauge cannula was injected beneath the anterior capsule to hydrodissect as well as hydrodelineate the lens. After ensuring mobility, phacoemulsification was performed in a [id number]-type fashion. After all nuclear material had been removed from the eye, IA was introduced and all residual cortical material was cleaned up. Additional Amvisc Plus was injected into the posterior bag and a lens model SA60WS, 14.0 diopters was injected and dialed into position. After ensuring centration, steps were taken to move on to the Hydrus stent implantation. Healon 5 was injected into the anterior chamber further pressurizing it and stabilizing it, with attention towards the trabecular mesh work and the anterior chamber angle at the 3 o'clock location. The patient's head was rotated away from the surgeon, approximately 20 degrees, and the operating microscope was rotated toward the surgeon, approximately 25 degrees. Amvisc Plus was placed on the surface of the gonioprism that was placed on the surface of the eye allowing visualization of the trabecular mesh work at the 3 o'clock location. A Hydrus stent called for and primed and visualized as it was inserted through the temporal wound and guided across the anterior chamber with the gonioprism in place. Once reaching the trabecular mesh work at the 3 o'clock location, the tip of the Hydrus stent inserted was used to dissect the trabecular mesh work accessing Schlemm's canal. The stent was then deployed into Schlemm's canal with good visualization. This was then checked for stabilization and location, and after satisfaction could be achieved, the valve inserter and the gonioprism were removed from the eye. The patient's head was rotated back to a more neutral cataract removal position. IA was reintroduced into the anterior chamber and all residual Amvisc Plus and Healon 5 were removed from the eye. BSS on a 30 gauge cannula was injected into the stroma of both the clear corneal incision as well as paracentesis to hydrate the wounds. Additional BSS was injected into the anterior chamber to pressurize the eye at approximately 20 to 22 mmHg by finger tension. 0.1 mL of antibiotic was injected into the anterior chamber. Weck-Sirisha sponges were used to check the wounds to be watertight. One drop of apraclonidine and one drop of prednisolone acetate were placed into the eye and a shield was placed over top. The patient was sent to the postoperative area in satisfactory condition to follow up the following day for postoperative care.[facility] HospitalConsult note Author Berhane [facility] March 01, 2023 2:24pm Note Date/Time March 01, 2023 2:24 pm [facility] [address] [place] [address] Neurology Consult Note Signed Patient: Yonatan Patel MR#: [id number] : 1945 Acct:[id number] Age/Sex: 77 / M Adm Date: 3 Loc: 3T Room: [address] [place] [address] Type: ADM INOo Attending Dr: Bobo Villagomez MD Copies to: DO Bobo Adler MD Steven Benedict, MD~ HPI Consult Date: 03/01/23 Foundry Finisher: Berhane Trammell MD Reason for consult: Leg weakness Consult Narrative HPI: The patient is a 77-year-old male who I was asked to see in neurological consultation for lower extremity weakness. The patient has a long history of peripheral neuropathy of unknown etiology over the past 4 to 5 years for which she takes gabapentin 300 mg 4 times a day for neuropathic pain. The patient states that he was at his baseline when he developed acute onset of lower extremity pain manifest as burning type pain below the knees with increased sensory loss. The patient denies any back pain, radiating pain down the legs, bowel or bladder incontinence. The patient also reports intermittent left hand numbness which has occurred over the past year which was worsened during this time. The patient describes the symptoms in his lower extremities as worse thanhis previous baseline. The patient was unable to ambulate due to pain. The patient states that he has had an episode of severe pain in the left foot while driving a prolonged period which was alleviated by position change. The patientalso has a history of fall while in the shower due to numbness in the legs. Thepatient states that he is able to ambulate currently with a walker but has difficulty due to pain. The patient denies any significant weakness. The patient denies any vision changes, slurred speech, incoordination, or difficultyswallowing. Review of Systems Review of Systems All other systems reviewed & are negative unless noted below or in HPI [facility] Vaccinated for COVID-19?: Yes Medical History (Updated 03/01/23 @ 09:55 by Lindsay Kern RN) Cataract Hypercholesteremia Hypertension Neuropathy Surgical History H/O hernia repair H/O shoulder surgery bilateral Family History Father Myocardial infarction Family/Other Myocardial infarction Mother Cancer Brother Cancer Social History Smoking Status: Former smoker Substance Use Type: None Meds Medications and Allergies Allergies No Known Allergies Allergy (Verified 08/25/22 14:35) Home Medications atorvastatin 80 mg tablet 80 mg PO DAILY 08/25/22 [History Confirmed 03/01/23] gabapentin 300 mg capsule 300 mg PO TID 08/25/22 [History Confirmed 03/01/23] metoprolol tartrate 25 mg tablet 25 mg PO DAILY 08/25/22 [History Confirmed 03/01/23] temazepam 15 mg capsule 15 mg PO HS 08/25/22 [History Confirmed 03/01/23] aspirin 81 mg tablet,delayed release 81 mg PO DAILY 03/01/23 [History Confirmed 03/01/23] bimatoprost 0.01 % eye drops 1 drp Eye-Both DAILY 03/01/23 [History Confirmed 03/01/23] brinzolamide 1 %-brimonidine 0.2 % eye drops,suspension 1 drp Eye-Both BID 03/01/23 [History Confirmed 03/01/23] metronidazole 250 mg tablet 250 mg PO QID 03/01/23 [History Confirmed 03/01/23] multivitamin 1 tab PO DAILY 03/01/23 [History Confirmed 03/01/23] pantoprazole 40 mg tablet,delayed release 40 mg PO DAILY 03/01/23 [History Confirmed 03/01/23] Exam Physical Exam Vital Signs: Temp Pulse Resp BP Pulse Ox O2 Del Method 97.8 F 72 18 160/86 H 99 Room Air 03/01/23 09:36 03/01/23 09:36 03/01/23 09:36 03/01/23 09:36 03/01/23 09:36 03/01/23 11:07 Neuro Other: Neurological exam: General: The patient is awake alert and oriented. Language is intact. Neurovascular exam: No carotid bruits. Regular rate and rhythm Cranial nerves: Pupils equal round reactive light and accommodation, fundoscopicexam is normal, extraocular movements intact, visual gonzalez are full to confrontation, sensations intact in the face, hearing is intact to finger rub, palate elevates bilaterally, tongue protrudes midline, shoulder shrug is symmetric. Face is symmetric Motor: Strength testing is 5 out of 5 in all 4 extremities, deep tendon reflexesare 2+ at the knee and absent at the ankle bilaterally and 2+ in the upper extremities, plantar reflexes flexor, tone is normal throughout. Sensory: Absent proprioception and vibratory sense in the distal lower extremities, decreased pinprick to mid calf bilaterally. Light touch and pinprick normal in the upper extremities Cerebellar/gait: No ataxia noted on finger to nose, gait testing requires walkersecondary to pain. Results Laboratory Findings 03/01/23 07:06 03/01/23 07:06 Diagnostic Findings Imaging/Impressions: ITS Impressions Chest X-Ray 03/01/23 07:02 IMPRESSION: NO ACUTE FINDINGS Impression dictated by: Selena Reid M.D.03/01/2023 9:15 AM Dictation Location: [place] [address] 03/01/23 07:02 IMPRESSION: ATROPHY AND CHRONIC MICROVASCULAR CHANGES. NO DEFINITE ACUTE INTRACRANIAL ABNORMALITY. FOLLOW-UP IS RECOMMENDED, SYMPTOMS WARRANT. COMMENT: Preliminary report was provided at 0730 hours. Impression dictated by: Selena Reid M.D.03/01/2023 8:13 AM Dictation Location: [place] [address] Therapy Recommendations Therapy Recommendations: OT Recommendations OT Recommended Discharge Home,Home with Outpatient Location OT Recommended Services at Physical Therapy,Other (See comment) Discharge OT If Other Please Specify see above assessment text PT Recommendations PT Recommended Discharge Home Location Assessment/Plan (1) Bilateral leg pain: Assessment/Problem Details: The patient is a 77-year-old male with acute onset of bilateral distal lower extremity neuropathic pain impeding his ability to ambulate without associated weakness, bowel, or bladder symptoms. The patient does have baseline peripheralneuropathy and significant neuropathic pain requiring daily gabapentin for symptomatic relief. The patient has an idiopathic neuropathy. In addition, the patient has had 1 year history of intermittent left upper extremity numbness which was worsened over the past 24 hours likely secondary to peripheral nerve process involving the left upper extremity such as cervical radiculopathy, brachial plexopathy, or entrapment mononeuropathy. The patient states that his symptoms have improved somewhat since hospitalization but is still unable to ambulate independently without significant pain. I am concerned about a intraspinal canal lesion in the lumbar spine contributing to bilateral lower extremity neuropathic symptoms. In addition, the patient has increased reflexesat the knee for reported long-term polyneuropathy making the consideration of a cervical myelopathy playing a component of the patient's symptoms a consideration. -I will obtain an MRI of the lumbar spine to assess for an intraspinal canal lesion contributing to the patient's acute onset of lower extremity pain and neuropathic symptoms -I will obtain an MRI of the cervical spine to assess for cervical myelopathy contributing to the patient's findings on neurological exam -I recommend continuing the patient on gabapentin 300 mg p.o. 4 times daily for neuropathic pain and titrating this medication up as needed for neuropathic pain -The patient would benefit from evaluation by physical therapy and Occupational Therapy for therapy and rehab needs -I counseled the patient on fall precautions at length -I will continue to follow the patient clinically and make further recommendations based upon the patient's clinical course. Code(s): M79.604 - Pain in right leg; M79.605 - Pain in left leg Status: Acute Documented By: Berhane Trammell MD 03/01/23 141 Signed By: <Electronically signed by MD Berhane Trammell> 03/01/23 1424 [facility] Work Phone: Discharge summary Author Angely Lee [facility] March 02, 2023 5:49pm Note Date/Time March 02, 2023 5:43 pm [facility] [address] [place] [address] Discharge Summary Signed Patient: Yonatan Patel MR#: [id number] : 1945 Acct:[id number] Age/Sex: 77 / M Adm Date: 3 Loc: Room: [address] [place] [address]: Angely Lee DO Copies to: DO Angely Adler DO~ Providers Date of Discharge: 03/02/23 Discharging Provider: Angely Lee Primary Care Provider: Cisco Nicholson Consults: 03/01/23 08:40 Consult to Neurology Routine 03/01/23 09:31 Consult to Occupational Therapy Routine Consult to Physical Therapy Routine Discharge Diagnosis Final Diagnosis Final Discharge Diagnosis: 1. Degenerative disc disease of the lumbar spine 2. Degenerative disc disease of the cervical spine 3. Chronic peripheral neuropathy 4. Hypertension 5. Hyperlipidemia 6. GERD Summary Hospital Course Hospital course: This patient is a very pleasant 77-year-old male who presented to the emergency departments early yesterday morning 03/01/2023 with reports of paresthesias and pain of the bilateral lower extremities as well as numbness/paresthesias in the left upper extremity. Patient reports a significant family history of relatively early onset myocardial infarction's. This prompted his presentation to the ER where his work-up was largely benign appearing with some mild hypertension but otherwise stable vital signs and normal labs. Initial head CT showed no acute process. The patient has a known history of peripheral neuropathy for which he was already prescribed gabapentin 300 mg 3 times daily. The patient's symptoms improved over the duration of his stay. He was admitted under observation for neurology consultation and stroke rule out. His gabapentin was increased to 4 times daily on discharge. Ultimately suspicion for ischemic event remains quite low as patient is not significantly hypertensive. He does have spinal canal and neuroforaminal stenoses identified on MRI imaging of the cervical and lumbar spine. The patient's symptoms howeverhave improved dramatically. He has no loss of bowel or bladder control. No signs of cervical or lumbar spine instability or acute nerve compression. Should these neurologic symptoms progress he may want to follow-up with neurosurgery as an outpatient but for now he will follow-up with his PCP and neurology upon discharge. Physical Examination: GENERAL APPEARANCE: Alert, up in bed AAOx3 HEENT: NCAT, MMM NECK: Neck soft w/o masses, no JVD CARDIAC: Normal S1 and S2. No S3, S4 or murmurs. LUNGS: Clear to auscultation bilaterally. no wheeze/rhonchi/rales ABDOMEN: Positive bowel sounds. Soft, nontender. No guarding or signs of an acute abdomen EXTREMITIES: No clubbing, cyanosis or edema NEUROLOGICAL: 5/5 strength all 4 extremities, no sensory deficits noted, no hyperreflexia SKIN: Skin normal color, texture and turgor with no lesions or eruptions. PSYCHIATRIC: Appropriate mood and affect 25 minutes were spent coordinating the discharge of this patient. Time Spent with Patient Time spent providing/coordinating discharge services (# min): 25 Diagnostic Studies Completed and Pending Studies Labs on day of discharge: 03/01/23 07:06: Estimat Average Glucose 123, Hemoglobin A1c 5.9 H Exam Physical Exam Vital Signs: Temp Pulse Resp BP Pulse Ox O2 Del Method 97.9 F 65 16 130/69 99 Room Air 03/02/23 16:00 03/02/23 16:00 03/02/23 16:00 03/02/23 16:00 03/02/23 16:00 03/02/23 16:00 Discharge Plan Discharge Plan Patient Disposition: Home Diet: Low-Sodium and Low-Cholesterol Stand Alone Forms: Work/School Release Form Prescriptions: Continued atorvastatin 80 mg tablet 80 mg PO DAILY temazepam 15 mg capsule 15 mg PO HS metoprolol tartrate 25 mg tablet 25 mg PO DAILY multivitamin Tablet 1 tab PO DAILY aspirin 81 mg Tablet,Delayed Release (Dr/Ec) 81 mg PO DAILY pantoprazole 40 mg Tablet,Delayed Release (Dr/Ec) 40 mg PO DAILY bimatoprost 0.01 % Drops 1 drp EYE-BOTH DAILY brinzolamide-brimonidine 1-0.2 % Drops,Suspension 1 drp EYE-BOTH BID Changed gabapentin 300 mg capsule 300 mg PO QID 10 Days Qty: 40 0RF Discontinued metronidazole 250 mg Tablet 250 mg PO QID Follow Up: Berhane Trammell MD [Courtesy/Consulting Physician] - 03/25/23 10:00 am (You have been scheduled for a follow up appointment with Neurology for the followingdate and time, please call to reschedule if needed.) Cisco Nicholson DO [Primary Care Provider] - 03/09/23 9:00 am (You have been scheduled for a follow up appointment for the following date and time, please call to reschedule if needed.) Documented By: Angely Lee DO 03/02/23 17 37 Signed By: <Electronically signed by Angely Lee DO> 03/02/23 1877 [facility] Work Phone: Evaluation + Plan note No data available for this section General Surgery [place] Evaluation noteNo assessment information available [facility] Work Phone: Evaluation noteNo InformationNort [email or web address] Other Evaluation note* Diagnosis Onset Date Resolution Status Bilateral leg pain acute Numbness of left hand acute [facility] Work Phone: Evaluation note* Diagnosis Onset Date Resolution Status Adverse drug effect acute Altered mental status acute COVID acute Hypertension acute Lab test positive for detection of COVID-19 virus acute Neuropathy acute [facility] Work Phone: History and physical note Author Bobo Villagomez [facility] March 01, 2023 9:50am Note Date/Time March 01, 2023 9:50 am [facility] [address] [place] [address] Hospitalist H&P Signed Patient: Yonatan Patel MR#: [id number] : 1945 Acct:[id number] Age/Sex: 77 / M Adm Date: 3 Loc: Room: [address] [place] [address] Type: ADM INOo Attending Dr: Bobo Villagomez MD Copies to: DO Bobo Adler MD~ HPI DATE OF EXAMINATION: 03/01/23 CHIEF COMPLAINT: LUE and b/l LE numbness HISTORY OF PRESENT ILLNESS: Patient is a 77-year-old male with medical history as listed below presented to the ER via EMS for left UE and B/l LE numbness. Patient states that he woke up this morning with his legs feeling numb, but also says his legs hurt and feels pain from the knees down. States that he could not walk on legs from too muchlegs pain. He also states that he noted numbness on his LUE mostly in his hand which got him concerned and called EMS who brought him in for further evaluation. Denies any nausea, vomiting, headache, blurred vision, syncope or fall. no focal weakness. He states history of smoking in the past but quit about35 years ago. Following with cardiology once a year for HTN and on Metoprolol. Takes aspirin every 2-3 days as per his PCP instructions. Has hx of peripheral neuropathy on Gabapentin. In ER, Stroke standby was called. Patient was last seen well last night before going to bed he felt fine, symptoms started when he woke up this morning. CT head was obtained which was unremarkable for acute pathology. EKG nonischemic. CXR with no acute chest process, UA negative for infection. Decision was made tokeep him for observation for stroke evaluation. Review of Systems Review of Systems Review of systems: 10 systems are reviewed and are negative except as mentioned elsewhere in the documentation [facility] Medical History Cataract Hypercholesteremia Hypertension Surgical History H/O hernia repair H/O shoulder surgery bilateral Family History Father Myocardial infarction Family/Other Myocardial infarction Mother Cancer Brother Cancer Social History Smoking Status: Former smoker Substance Use Type: None Meds Medications and Allergies Allergies No Known Allergies Allergy (Verified 08/25/22 14:35) Home Medications atorvastatin 80 mg tablet 80 mg PO DAILY 08/25/22 [History Confirmed 03/01/23] gabapentin 300 mg capsule 300 mg PO TID 08/25/22 [History Confirmed 03/01/23] metoprolol tartrate 25 mg tablet 25 mg PO DAILY 08/25/22 [History Confirmed 03/01/23] temazepam 15 mg capsule 15 mg PO HS 08/25/22 [History Confirmed 03/01/23] aspirin 81 mg tablet,delayed release 81 mg PO DAILY 03/01/23 [History Confirmed 03/01/23] bimatoprost 0.01 % eye drops 1 drp Eye-Both DAILY 03/01/23 [History Confirmed 03/01/23] brinzolamide 1 %-brimonidine 0.2 % eye drops,suspension 1 drp Eye-Both BID 03/01/23 [History Confirmed 03/01/23] metronidazole 250 mg tablet 250 mg PO QID 03/01/23 [History Confirmed 03/01/23] multivitamin 1 tab PO DAILY 03/01/23 [History Confirmed 03/01/23] pantoprazole 40 mg tablet,delayed release 40 mg PO DAILY 03/01/23 [History Confirmed 03/01/23] Exam Physical Exam Vital Signs: Pulse Resp BP Pulse Ox O2 Del Method 62 16 146/82 H 96 Room Air 03/01/23 08:00 03/01/23 08:00 03/01/23 08:00 03/01/23 08:00 03/01/23 08:00 Narrative: Const General: cooperative, pleasant HEENT Normal oropharyngeal mucosa without any ulcers or exudates Missing teeth Eyes: Conjunctiva normal Pulmonary Auscultation: clear to auscultation , no crackles, no wheezes Cardiovascular Rate: normal rate Rhythm: regular rhythm Heart Sounds: S1 normal, S2 normal and no murmurs GI Inspection: non-distended Palpation: soft, not firm and nontender. No rigidity or rebound. Deferred Neuro General: alert, awake and oriented x3. strength seems equal b/l 5/5. Decreased sensation in both LE from knee down. no facial asymmetry, tongue at midline. Cranial nerves grossly intact Musculoskeletal: normal range of motion Extrem General: no cyanosis, trace pedal edema Skin: no significant ulcers, no rash noted Psych Appearance: appropriate affect. Grossly normal Results Lab Results Labs: Laboratory Last Values Corrected WBC 5.4 X10E3/uL (4.1-10.5) 03/01/23 07:06 Uncorrected WBC Count 5.4 x10E3/uL (4.1-10.5) 03/01/23 07:06 RBC 5.02 X10E6/uL (3.90-5.60) 03/01/23 07:06 Hgb 14.9 g/dL (13.0-17.0) 03/01/23 07:06 Hct 43.2 % (38.8-50.0) 03/01/23 07:06 MCV 86.1 fl (83.5-101) 03/01/23 07:06 MCH 29.6 pg (27.5-35.2) 03/01/23 07:06 MCHC 34.4 g/dL (32.5-35.6) 03/01/23 07:06 RDW 14.5 % (12.0-14.8) 03/01/23 07:06 Plt Count 143 x10E3/uL (150-450) L 03/01/23 07:06 MPV 8.0 fl (6.6-10.1) 03/01/23 07:06 Neut % (Auto) 65.9 % (.) 03/01/23 07:06 Lymph % (Auto) 23.7 % (.) 03/01/23 07:06 [place] % (Auto) 8.3 % (.) 03/01/23 07:06 Eos % (Auto) 1.4 % (.) 03/01/23 07:06 Baso % (Auto) 0.7 % (.) 03/01/23 07:06 Nucleat RBC Rel Count 0.3 /100 WBC (0-0.5) 03/01/23 07:06 Neut # (Auto) 3.5 x10E3/uL (1.8-7.7) 03/01/23 07:06 Lymph # (Auto) 1.3 x10E3/uL (1.00-4.8) 03/01/23 07:06 [place] # (Auto) 0.4 x10E3/uL (0.0-0.8) 03/01/23 07:06 Eos # (Auto) 0.1 x10E3/uL (0.0-0.45) 03/01/23 07:06 Baso # (Auto) 0.0 x10E3/uL (0.0-0.2) 03/01/23 07:06 Monocyte Dist Width 17.75 % (0.00-20.00) 03/01/23 07:06 PT 11.6 Seconds (9.0-12.9) 03/01/23 07:06 INR 1.0 03/01/23 07:06 APTT 27.2 Seconds (25.1-36.5) 03/01/23 07:06 PHA Creatinine Clear 76.53 03/01/23 07:06 Sodium 139 mmol/L (136-145) 03/01/23 07:06 Potassium 4.3 mmol/L (3.5-5.1) 03/01/23 07:06 Chloride 107 mmol/L (98-107) 03/01/23 07:06 Carbon Dioxide 26.0 mmol/L (21.0-31.0) 03/01/23 07:06 Anion Gap 10.3 mEq/L (6.0-15.0) 03/01/23 07:06 BUN 16 mg/dL (7-25) 03/01/23 07:06 Creatinine 0.91 mg/dL (0.70-1.30) 03/01/23 07:06 Est GFR (CKD-EPI) > 60.0 mL/Min 03/01/23 07:06 Glucose 106 mg/dL (70-100) H 03/01/23 07:06 Calcium 9.7 mg/dL (8.6-10.3) 03/01/23 07:06 Total Bilirubin 1.7 mg/dl (0.3-1.0) H 03/01/23 07:06 Direct Bilirubin 0.30 mg/dL (0.03-0.18) H 03/01/23 07:06 Indirect Bilirubin 1.4 mg/dL 03/01/23 07:06 AST 30 U/L (13-39) 03/01/23 07:06 ALT 34 U/L (7-52) 03/01/23 07:06 Alkaline Phosphatase 61 U/L (34-104) 03/01/23 07:06 Total Creatine Kinase 178 U/L (30-223) 03/01/23 07:06 Troponin I High Sens 8.1 pg/mL (0.0-20.0) 03/01/23 07:06 B-Natriuretic Peptide 96.0 pg/mL (5-100) 03/01/23 07:06 Total Protein 6.7 gm/dL (6.4-8.9) 03/01/23 07:06 Albumin 4.4 gm/dL (3.5-5.7) 03/01/23 07:06 Globulin 2.3 gm/dL 03/01/23 07:06 Albumin/Globulin Ratio 1.9 03/01/23 07:06 Urine Color Yellow (Yellow) 03/01/23 07:49 Urine Appearance Clear (Clear) 03/01/23 07:49 Urine pH 7.5 (5.0-9.0) 03/01/23 07:49 Ur Specific [place] 1.014 (1.001-1.030) 03/01/23 07:49 Urine Protein Negative mg/dL (Negative) 03/01/23 07:49 Urine Glucose (UA) Normal mg/dL (Normal) 03/01/23 07:49 Urine Ketones Negative (Negative) 03/01/23 07:49 Urine Occult Blood Negative (Negative) 03/01/23 07:49 Urine Nitrite Negative (Negative) 03/01/23 07:49 Urine Bilirubin Negative (Negative) 03/01/23 07:49 Urine Urobilinogen Normal mg/dL (Normal) 03/01/23 07:49 Ur Leukocyte Esterase Negative (Negative) 03/01/23 07:49 Assessment & Plan Assessment/Plan (1) Numbness of left hand: (2) Bilateral leg pain: Plan Numbness of left hand Ruling out intracerebral event Hx of peripheral neuropathy -CT head negative for acute process. -Not a candidate for tPA -Check HbA1c, lipid profile -Check echocardiogram -Continue aspirin and statin -PT/OT eval and treat -Neurology consult -Monitor on telemetry -Fall precaution Chronic conditions Hypertension, hyperlipidemia: ASA and statins GERD: Continue PPI Insomnia: Continue temazepam Peripheral neuropathy: Continue gabapentin Diet: Healthy heart DVT ppx: Lovenox GI ppx: PPI Code status: Full Disposition: Observation status Discussed with patient at bedside. All questions answered. Bobo Adames MD Internal Medicine Hospitalist Attending Physician IP vs OBS Justification Based on differential dx, clinical care plan, and risk of adverse events, if untreated, in my clinical judgement this patient requires an acute care setting as: OBSERVATION because of an expectation of an under 2 midnight stay. Estimated length of stay (# of days): 2 Documented By: Bobo Villagomez MD 03/01/23 09 37 Signed By: <Electronically signed by Bobo Villagomez MD> 03/01/23 0950 [facility] Work Phone: [facility] general Narrative - Reported* Type Description Date Medical History hypercholesterolemia Medical History hypertension Medical History anxiety Medical History Esophageal reflux Medical History glaucoma Medical History neuropathy Surgical History heart catheterization Surgical History shoulder surgery Surgical History colonoscopy with polyp resectio n 08/27/21 Surgical History EGD 08/27/21 Hospitalization History see above [facility] Other [facility] general Narrative - Reported* Type Description Date Medical History hypercholesterolemia Medical History hypertension Medical History anxiety Medical History Esophageal reflux Medical History glaucoma Medical History neuropathy Surgical History heart catheterization Surgical History shoulder surgery Surgical History colonoscopy with polyp resectio n 08/27/22 Surgical History EGD 08/27/22 Hospitalization History see above [facility] Other Hospital Discharge instructions Additional Instructions DISCHARGE INSTRUCTIONS FOR UPPER ENDOSCOPY WHAT TO EXPECT: - You may feel full, gassy or cramping after your procedure. In some cases, this may be from a few hours to a day. Walking may help relieve the discomfort. - Your throat may feel sore today from the scope that the doctor passed through your throat to visualize your stomach. Take a throat lozenge or suck on ice to ease the discomfort. - You may notice some streaks of blood in your sputum if the doctor has taken a biopsy. - You should begin to recover from anesthesia within 1 hour of the procedure, however may feel groggy for the next 24 hours. DO's AND DON'Ts: - Call your doctor right away if you have a hard abdomen, severe pain, vomiting or if you cough up large amounts of blood. - Call your doctor if you develop any rashes, hives or difficulty breathing. - If you take 81 mg aspirin for your heart it is safe to resume this medication. - If you take other blood thinner medications your doctor will instruct you when these can safely be resumed. - Do NOT drive for 24 hours. - Do NOT operate machinery such as power tools, [employer] mowers, [employer] blowers, sewing machines, etc. for 24 hours. - Avoid alcoholic beverages and drugs for allergies, nerves, or sleep. - Do NOT stay alone. Do NOT leave your child unattended. - Do NOT make important personal or business decisions or sign any legal documents. - Eat solid foods and drink liquids in smaller amounts than usual until normal appetite returns. If you should experience an upset stomach, liquids high in sugar content (soda, Bin-Aid, non-acid juices) are recommended. - Do NOT smoke. - Do take it easy today. You need not stay in bed, but avoid strenuous activities such as jogging or working out. DISCHARGE INSTRUCTIONS FOR COLONOSCOPY WHAT TO EXPECT: - You may feel full, gassy or cramping after your procedure. In some cases, this may be from a few hours to a day. Walking may help relieve the discomfort. - If you have polyp(s) removed you may note some minor bloody discharge after your first bowel movements. - You should begin to recover from anesthesia within 1 hour of the procedure, however may feel groggy for the next 24 hours. DO's AND DON'Ts: - Call your doctor right away if you have a hard abdomen, sever pain, are passing lots of bright red blood or clots. - Call your doctor if you develop any rashes, hives or difficulty breathing. - Let your doctor know if you have not had a bowel movement by 3 days after your procedure. - If you take 81 mg aspirin for your heart it is safe to resume this medication. - If you take other blood thinner medications your doctor will instruct you when these can safely be resumed. - Do NOT drive for 24 hours. - Do NOT operate machinery such as power tools, lawn mowers, snow blowers, sewing machines, etc. for 24 hours. - Avoid alcoholic beverages and drugs for allergies, nerves, or sleep. - Do NOT stay alone. Do NOT leave your child unattended. - Do NOT make important personal or business decisions or sign any legal documents. - Eat solid foods and drink liquids in smaller amounts than usual until normal appetite returns. If you should experience an upset stomach, liquids high in sugar content (soda, Bin-Aid, non-acid juices) are recommended. - You can resume normal activities tomorrow. FOLLOW UP & RECOMMENDATIONS: -Repeat colonoscopy in 5 years -Start Protonix 40 mg daily -Follow up pathology -No endoscopic findings to explain weight loss, follow up with PCP - Office number [phone]. [facility] Work Phone: Hospital Discharge instructions No data available for this section General Surgery [place] Progress note Author Berhane Trammell [facility] March 02, 2023 3:27pm Note Date/Time March 02, 2023 3:23 pm [facility] [address] [place] [address] Neurology Progress Note Signed Patient: Yonatan Patel MR#: [id number] : 1945 Acct:[id number] Age/Sex: 77 / M Adm Date: 3 Loc: Room: [address] [place] [address] Type: ADM INOo Attending Dr: Angely Lee DO Copies to: ~ Date of Service: 03/02/2023 Subjective Subjective Narrative: The patient states that his symptoms are 95% improved. He is able to ambulate without pain. The patient denies any bowel or bladder symptoms. The patient has been up and ambulating with a walker and physical therapy. The patient states that the pain that brought him into the hospital has improved. Review of Systems Review of Systems All other systems reviewed & are negative unless noted below or in HPI Exam Physical Exam Vital Signs: Temp Pulse Resp BP Pulse Ox O2 Del Method 97.6 F 70 16 130/72 98 Room Air 03/02/23 12:00 03/02/23 12:00 03/02/23 12:00 03/02/23 12:00 03/02/23 12:00 03/02/23 12:00 Neuro Other: Neurological exam: General: The patient is awake alert and oriented.? Language is intact. Neurovascular exam: No carotid bruits.? Regular rate and rhythm Cranial nerves: Pupils equal round reactive light and accommodation, fundoscopicexam is normal, extraocular movements intact, visual gonzalez are full to confrontation, sensations intact in the face, hearing is intact to finger rub, palate elevates bilaterally, tongue protrudes midline, shoulder shrug is symmetric.? Face is symmetric Motor: Strength testing is 5 out of 5 in all 4 extremities, deep tendon reflexesare 2+ at the knee and absent at the ankle bilaterally and 2+ in the upper extremities, plantar reflexes flexor, tone is normal throughout. Sensory: Absent proprioception and vibratory sense in the distal lower extremities, decreased pinprick to mid calf bilaterally.? Light touch and pinprick normal in the upper extremities Cerebellar/gait: No ataxia noted on finger to nose, gait testing requires walkersecondary to pain. Objective Vital Signs Vital Signs: Vital Signs - 24 hr 03/01/23 16:00 03/01/23 20:10 03/01/23 20:10 Temperature 97.6 F 97.5 F L Pulse Rate 70 65 Respiratory Rate 18 18 Blood Pressure 158/70 H 155/75 H 02 Sat by Pulse Oximetry 98 98 Oxygen Delivery Method Room Air Room Air Room Air 03/01/23 23:50 03/02/23 03:16 03/02/23 05:34 Temperature 97.2 F L 97.3 F L 97.3 F L Pulse Rate 64 67 67 Respiratory Rate 18 18 18 Blood Pressure 161/75 H 118/64 118/64 02 Sat by Pulse Oximetry 98 99 99 Oxygen Delivery Method Room Air Room Air Room Air 03/02/23 08:00 03/02/23 08:00 03/02/23 12:00 Temperature 97.6 F 97.6 F Pulse Rate 65 70 Respiratory Rate 19 16 Blood Pressure 137/71 130/72 02 Sat by Pulse Oximetry 98 98 Oxygen Delivery Method Room Air Room Air Room Air Labs 03/01/23 07:06 03/01/23 07:06 Lab Results: 03/01/23 07:06: Hemoglobin A1c 5.9 H Therapy Recommendations Therapy Recommendations: OT Recommendations OT Recommended Discharge Home,Home with Outpatient Location OT Recommended Services at Physical Therapy,Other (See comment) Discharge OT If Other Please Specify see above assessment text PT Recommendations PT Recommended Discharge Home Location Assessment/Plan (1) Bilateral leg pain: Assessment/Problem Details: The patient is a 77-year-old male with acute onset of bilateral distal lower extremity neuropathic pain impeding his ability to ambulate without associated weakness, bowel, or bladder symptoms. The patient does have baseline peripheralneuropathy and significant neuropathic pain requiring daily gabapentin for symptomatic relief. The patient has an idiopathic neuropathy. In addition, thepatient has had 1 year history of intermittent left upper extremity numbness which was worsened over the past 24 hours likely secondary to peripheral nerve process involving the left upper extremity such as cervical radiculopathy, brachial plexopathy, or entrapment mononeuropathy. The patient states that his symptoms have improved significantly over the past 24 hours and are 95% back to baseline. The patient has been able to ambulate independently without significant pain. I we will continue to pursue evaluationfor a intraspinal canal lesion in the lumbar spine contributing to bilateral lower extremity neuropathic symptoms. In addition, the patient has increased reflexes at the knee for reported long- term polyneuropathy making the consideration of a cervical myelopathy playing a component of the patient's symptoms a consideration. -I will obtain an MRI of the lumbar spine to assess for an intraspinal canal lesion contributing to the patient's acute onset of lower extremity pain and neuropathic symptoms -I will obtain an MRI of the cervical spine to assess for cervical myelopathy contributing to the patient's findings on neurological exam -I recommend continuing the patient on gabapentin 300 mg p.o. 4 times daily for neuropathic pain and titrating this medication up as needed for neuropathic pain -The patient would benefit from evaluation by physical therapy and Occupational Therapy for therapy and rehab needs -I counseled the patient on fall precautions at length -I will continue to follow the patient clinically and make further recommendations based upon the patient's clinical course. Code(s): M79.604 - Pain in right leg; M79.605 - Pain in left leg Status: Acute Documented By: Berhane Trammell MD 03/02/23 1521 Signed By: <Electronically signed by MD Berhane Trammell> 03/02/23 1527 [facility] Work Phone: Progress note No data available for this section General Surgery [place] Reason for referral (narrative)* Reason Referral for left in direct inguinal hernia Diagnosis 1 Indirect left inguin al hernia (K40.90) Referral Organization [facility] Referring Provider First Name Cisco Referring Provider Last Name [facility]be Referring Provider Specialty Internal Me dicine Referred Organization [facility] Referred Provider Angely Ocampo [place] [place], [place],[address] Referred Provider Specialty Surgery Referral Priority Urgent General Notes Mr. Patel has a left indirect inguinal hernia w/ intermittent episodes of increased pain, abdominal distention and nausea. He has experienced 3-4 of these episodes in the past 2 weeks, with increased intensity and duration of pain. A recent episode was associated w/ a transient fever and chills. [facility] Other Reason for visit NarrativeERROR/Gastro referral issue [facility] Other Chief Complaint and Reason for Visit Chief Complaint Weight Loss Chief Complaint Weight Loss a04.8 Chief Complaint Leg numbness Reason for Visit Bilateral leg pain Numbness of left hand Chief Complaint CONFUSION Reason for Visit Adverse drug effect Altered mental status COVID Hypertension Lab test positive for detection of COVID-19 virus Neuropathy Family History No Family History Records Found Relationship Condition Age at Onset Recorded Date/T oli father Myocardial infarction Unknown family member Myocardial infarction Unknown Not Specified Malignant neoplasm Unknown brother Malignant neoplasm Unknown Relationship Condition Age at Onset Recorded Date/T oli father Myocardial infarction Unknown family member Myocardial infarction Unknown Not Specified Malignant neoplasm Unknown brother Malignant neoplasm Unknown Myocardial infarction Unknown Diabetes mellitus Unknown Cerebrovascular accident (CVA) Unknown Advance Directives No Advanced Directives Records Found Advance Directive Response Recorded Date/ Time Advance Directives No August 27, 2022 8:28am Advance Directive Response Recorded Date/ Time Advance Directives No August 27, 2022 9:28am Summary Purpose Additional Source Comments Care Teams (unrecognized sec tion and content) Team Status: Active Member Role Status Dates Cisco Nicholson , DO Primary Care Provider Active Team Status: Active Member Role Status Dates Cisco [facility]be , DO Primary Care Provider Active Alejo Lynn , DO Emergency Provider Active Bobo Villagomez MD Admit Provider, Attending Provi jeanette Active Berhane Trammell MD Other Provider Active Team Status: Inactive Member Role Status Dates Alek Oliva MD Attending Provider Active Cisco Nicholson , DO Primary Care Provider Active Team Status: Inactive Member Role Status Dates Cisco [facility]be , DO Primary Care Provider Active Maryjane hCristensen MD Attending Provider Active Team Status: Active Member Role Status Dates Cisco Nicholson , DO Primary Care Provider Active Sandoval Palacios Jr, MD Emergency Provider Active Warren Quiroz MD Admit Provider, Attending Provider Active (unrecognized sect ion and content) No Status Records FoundNo Status Records FoundNo Status Records FoundNo Status Records FoundNo Status Records Found INFORMATION SOURCE (unrecogn ized section and content) DATE CREATED AUTHOR 09/16/2022 [facility] DATE CREATED AUTHOR AUTHOR'S ORGANIZ ATION 11/27/2022 [facility] DATE CREATED AUTHOR AUTHOR'S ORGANIZ ATION 03/05/2023 [facility] DATE CREATED AUTHOR AUTHOR'S ORGANIZ ATION 06/25/2023 [facility] DATE CREATED AUTHOR AUTHOR'S ORGANIZ ATION 08/08/2023 [facility] REASON FOR VISIT (unrecogniz ed section and content) med refillPrescription Refil lNo InformationNo InformationNo InformationGI REFERRAL NOTEH.PYLORIClinical Acute IllnessDiarrheaDiscussion3 week follow upwound on left armRefillNo InformationNo Information4 month Follow upNo InformationTCMNo InformationRefillPains in stomachNo InformationCT resultsNo InformationER follow upappointment timeReferralherniaCOVID +ERRORTCMhospital follow up Goals (unrecognized section and content) Goals may be documented in a n alternate section FOR RECORDS PERTAINING TO PATIENTS WHO ARE OR HAVE BEEN ENROLLED IN A CHEMICAL DEPENDENCY/SUBSTANCEABUSE PROGRAM, SOME INFORMATION MAY BE OMITTED. This clinical summary was aggregated from multiple sources. Caution should be exercised in using it in the provision of clinical care. This summary normalizes information from multiple sources, and as a consequence, information in this document may materially change the coding, format and clinical context of patient data. In addition, data may be omitted in some cases. CLINICAL DECISIONS SHOULD BE BASED ON THE PRIMARY CLINICAL RECORDS. [facility] [facility]. provides no warranty or guarantee of the accuracy or completeness of information in this document.
[2023-08-19] MEDS: LACTATED RINGER'S SOLUTION 1,000 ML 50 ML IV (09:11)
--- NOTE | 2023-08-19 09:21 | PC.NURSE ---
History of hospitalization in June due to reaction to COVID medication; also had an earlier hospitalization this past year due to not being able to walk; no diagnosis was made, per family
[2023-08-19] MEDS: CEFAZOLIN SODIUM/DEXTROSE,ISO 2 GM/50 ML PIGGYBACK IV (11:17)
[2023-08-19] MEDS: LACTATED RINGER'S SOLUTION 1,000 ML 75 ML IV (11:17)
[2023-08-19] MEDS: 0.9 % SODIUM CHLORIDE 10 ML 100 ML INJ (11:52)
[2023-08-19] MEDS: BUPIVACAINE LIPOSOME/PF 266 MG/13.3 ML VIAL 13.3 MG INJ (11:52)
[2023-08-19] MEDS: BUPIVACAINE HCL 0.25% PF 25 MG/10 ML VIAL INJ (11:52)
[2023-08-19] MEDS: CEFAZOLIN SODIUM 1,000 MG in 0.9 % SODIUM CHLORIDE 10 ML 100 MG IRR (11:53)
[2023-08-19] MEDS: TRAMADOL HCL 50 MG TABLET PO (13:15)
== END 2023-08-19 14:25 | disposition home or self-care (01) ==
PROVIDERS: PCP Internal Medicine; Visit Provider Surgery
PROC: (CPT 49505; principal; 2023-08-19 09:40)
DX: K40.90 Unilateral inguinal hernia, without obstruction or gangrene, not specified as recurrent (principal); G89.18 Other acute postprocedural pain; G47.00 Insomnia, unspecified; K58.1 Irritable bowel syndrome with constipation; Z86.010 Personal history of colon polyps; H40.9 Unspecified glaucoma; I10 Essential (primary) hypertension; E78.00 Pure hypercholesterolemia, unspecified; Z86.16 Personal history of COVID-19; Z98.890 Other specified postprocedural states; J44.9 Chronic obstructive pulmonary disease, unspecified; K21.9 Gastro-esophageal reflux disease without esophagitis; F41.1 Generalized anxiety disorder; G62.9 Polyneuropathy, unspecified; Z79.82 Long term (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; Z79.899 Other long term (current) drug therapy; Z87.891 Personal history of nicotine dependence
CPT/HCPCS: 49505; 64488; 99283; C1781; J0131; J0665; J0690; J1100; J1885; J2405; J2704; J3010; Q0162

== ENCOUNTER 2023-08-19 21:55 | Emergency (ER) | payer MEDICARE, SELFPAY ==
[2023-08-19 21:58] VITALS: BP 166/87; PULSE 85; RESP 18; TEMP 36.7; O2SAT 99; BMI 23.1
--- OUTSIDE RECORDS SUMMARY | 2023-08-19 22:05 | XMS_ITS | CCD ---
Author Name Unknown Address [address] [place] [address] Organization [facility] [place] Care Team Providers Care Through Operator Name Role Phone MD Alek Oliva Attending Provider DO Cisco Nicholson Primary Care Provider MIGUEL [...] Desai Unavailable MD Maryjane Christensen Attending Provider [phone] ZEV PRIETO Attending Unavailable Dr. Cisco Nicholson Primary Care Dr. Cisco Ivey Primary Care DO Cisco Ivey Primary Care Provider [phone] DO Alejo Lynn Emergency Provider MD Bobo Villagomez Admit Provider MD Bobo Villagomez Attending Provider [phone] MD Berhane Trammell Other Provider DO Cisco Nicholson Primary Care Provider MD Sandoval Palacios Jr Emergency Provider MD Warren Quiroz Admit Provider [phone] MD Warren Quiroz Attending Provider Cisco Nicholson Primary [facility] Emergency Department Unavailable Asamallory, Imad Admitting Unavailable Maryjane Christensen Attending Unavailable Cisco Nicholson Primary Care Unavailable Angely Lee Attending Unavailable Bobo Villagomez Admitting Unavailable Berhane Trammell Consulting Unavailable Berhane Trammell Consulting Unavailable Cisco Nicholson Primary Care Unavailable Warren Quiroz Admitting Unavailable Maren Petersen Attending Unavailable Cisco Nicholson Primary Care Unavailable PjDandre bustillosn Admitting Unavailable Dandre Olivan Attending Unavailable CISCO NICHOLSON Primary Care Physician [phone] Angely OCAMPO Attending Unavailable CISCO NICHOLSON Referring Unavailable Allergies Allergy Classification Reported Allergen(s) Allergy Type Date of Onset Reaction(s) Facility (2 sources) Ritonavir; Translations: [ritonavir] Drug Allergy [address] [place] [address] (2 sources) nirmatrelvir; Translations: [nirmatrelvir] Propensity to adverse reactions [address] [place] [address] (1 source) No Known Medication Allergies; Translations: [No Known Medication Allergies] Propensity to adverse reactions (disorder) [facility] Repository Medications Current Medications Medication Drug [...] Not-Taking Start: 03-19-2019 take 1 capsule by [facility] every eight hours Cephalexin 500 MG [...] disease (2 sources) Atherosclerotic heart disease of [place] coronary artery without angina pectoris; Translations: [Atherosclerotic heart disease of [place] coronary artery without angina pectoris] Onset: 11-26-2022 [...] 03-28-2022 Episodic Other aftercare (1 source) 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; Translations: [OTH 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 CURRENT DRUG THERAPY] Onset: 09-16-2022 Episodic Other aftercare (1 source) 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; Translations: [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 CURRENT USE OF ASPIRIN] Onset: 09-16-2022 Episodic [...] object(s), not elsewhere classified, initial encounter; Translations: [[facility] OTH SHRP OB NOT ELSW CLASS [...] Value Interpretation Reference Range [facility] [id number]#1.00TIFF Normal Salvador [facility] Consent for Procedure/Surger yon 07-29-2023 Consent for Procedure/Surgery [id number]#1.00TIFF [facility] Facesheeton 07-29-2023 Facesheet [id number]#1.00TIFF [facility] Ambulatory Visit Summaryon 1 09-28-2022 Ambulatory Visit [...] for choosing us for your care. [facility] Ambulatory Visit Summary YONATAN PATEL :1945 [...] for choosing us for your care. [facility] Physician Referralon 023 Physician Referral [id number]#1.00TIFF Normal [facility] Basic Metabolic Panelon 11-0 Anion gap [Moles/Vol] 10.4 mmol/L Normal 6.0-15.0 [facility] Comment on above: Order Comment: FASTI NG Y Performed By: #### H S TROP, CMP, CK, CBC #### [facility] [address] Calcium [Mass/Vol] 9.4 mg/dL Normal 8.6-10.3 [facility] Comment on above: Order Comment: FASTI NG Y Performed By: #### H S TROP, CMP, CK, CBC #### [facility] [address] Chloride [Moles/Vol] 106 mmol/L Normal 98-107 [facility] Comment on above: Order Comment: FASTI NG Y Performed By: #### H S TROP, CMP, CK, CBC #### [facility] [address] CO2 [Moles/Vol] 28.8 mmol/L Normal 21.0-31.0 [facility] Comment on above: Order Comment: FASTI NG Y Performed By: #### H S TROP, CMP, CK, CBC #### [facility] [address] [place] [address] [place] Creatinine [Mass/Vol] 0.78 mg/dL Normal 0.70-1.[address] [facility] Comment on above: Order Comment: FASTI NG Y Performed By: #### H S TROP, CMP, CK, CBC #### [facility] [address] [place] [address] [place] Creatinine Clr Calc Pharmacy 81.46 [facility] Comment on above: Order Comment: FASTI NG Y Performed By: #### H S TROP, CMP, CK, CBC #### [facility] [address] [place] [address] [place] GFR/1.73 sq M.predicted MDRD (S/P/Bld) [Vol rate/Area] mL/min/{1.73_m2} [facility] Comment on above: Order Comment: FASTI NG Y Performed By: #### H S TROP, CMP, CK, CBC #### [address] Glucose [Mass/Vol] 99 mg/dL Normal 70-100 [facility] Comment on above: Order Comment: FASTI NG Y Result Comment: [place] Glucose Reference Range is dependent on time and content of last meal. Glucose of more than 200 mg/dL in a nonstressed, ambulatory subject supports the diagnosis of Diabetes Mellitus. ADA recommended reference range Performed By: #### H S TROP, CMP, CK, CBC #### [address] Potassium [Moles/Vol] 4.2 mmol/L Normal 3.5-5.[address] [facility] Comment on above: Order Comment: FASTI NG Y Performed By: #### H S TROP, CMP, CK, CBC #### [address] Sodium [Moles/Vol] 141 mmol/L Normal 136-145 [facility] Comment on above: Order Comment: FASTI NG Y Performed By: #### H S TROP, CMP, CK, CBC #### [address] Urea nitrogen [Mass/Vol] 16 mg/dL Normal 7-25 [facility] Comment on above: Order Comment: FASTI NG Y Performed By: #### H S TROP, CMP, CK, CBC #### [address] Complete Blood Count Auto Di ffon 06-22-2023 Basophils (Bld) [#/Vol] 0.0 10*3/uL Normal 0.0-0.2 [facility] Comment on above: Result Comment: PERF ORMED BY: [place] [address] PATHOLOGIST ORTHOPAEDIC PHYSICIAN ASSISTANT HARRY MARTI M.D. Performed By: #### L IPID, [id number], PT, CBC, HEPATIC, BMP, PTT, TSH3, MG #### [address] Basophils/100 WBC (Bld) 0.4 % Normal . [facility] Comment on above: Performed By: #### L IPID, [id number], PT, CBC, HEPATIC, BMP, PTT, TSH3, MG #### [address] Eosinophils (Bld) [#/Vol] 0.1 10*3/uL Normal 0.0-0.45 [facility] Comment on above: Performed By: #### L IPID, [id number], PT, CBC, HEPATIC, BMP, PTT, TSH3, MG #### [address] Eosinophils/100 WBC (Bld) 1.2 % Normal . [facility] Comment on above: Performed By: #### L IPID, [id number], PT, CBC, HEPATIC, BMP, PTT, TSH3, MG #### [address] Erythrocyte distribution width (RBC) [Ratio] 15.2 % High 12.0-14.8 [facility] Comment on above: Performed By: #### L IPID, [id number], PT, CBC, HEPATIC, BMP, PTT, TSH3, MG #### [address] Hematocrit (Bld) [Volume fraction] 40.0 % Normal 38.8-50.0 [facility] Comment on above: Performed By: #### L IPID, [id number], PT, CBC, HEPATIC, BMP, PTT, TSH3, MG #### [address] Hemoglobin (Bld) [Mass/Vol] 13.6 g/dL Normal 13.0-17.0 [facility] Comment on above: Performed By: #### L IPID, [id number], PT, CBC, HEPATIC, BMP, PTT, TSH3, MG #### [address] Lymphocytes (Bld) [#/Vol] 1.5 10*3/uL Normal 1.00-4.8 [facility] Comment on above: Performed By: #### L IPID, [id number], PT, CBC, HEPATIC, BMP, PTT, TSH3, MG #### [address] Lymphocytes/100 WBC (Bld) 35.5 % Normal . [facility] Comment on above: Performed By: #### L IPID, [id number], PT, CBC, HEPATIC, BMP, PTT, TSH3, MG #### [address] MCH (RBC) [Entitic mass] 29.4 pg Normal 27.5-35.2 [facility] Comment on above: Performed By: #### L IPID, [id number], PT, CBC, HEPATIC, BMP, PTT, TSH3, MG #### [address] MCV (RBC) [Entitic vol] 86.7 fL Normal 83.5-101 [facility] Comment on above: Performed By: #### L IPID, [id number], PT, CBC, HEPATIC, BMP, PTT, TSH3, MG #### [address] Mean Corpuscular HGB Conc 33.9 g/dL Normal 32.5-35.6 [facility] Comment on above: Performed By: #### L IPID, [id number], PT, CBC, HEPATIC, BMP, PTT, TSH3, MG #### [address] Monocytes (Bld) [#/Vol] 0.4 10*3/uL Normal 0.0-0.8 [facility] Comment on above: Performed By: #### L IPID, [id number], PT, CBC, HEPATIC, BMP, PTT, TSH3, MG #### [address] Monocytes/100 WBC (Bld) 10.4 % Normal . [facility] Comment on above: Performed By: #### L IPID, [id number], PT, CBC, HEPATIC, BMP, PTT, TSH3, MG #### [facility] [address] [place] [address] Neutrophils (Bld) [#/Vol] 2.2 10*3/uL Normal 1.8-7.7 [facility] Comment on above: Performed By: #### L IPID, [id number], PT, CBC, HEPATIC, BMP, PTT, TSH3, MG #### [facility] [address] [place] [address] Neutrophils/100 WBC (Bld) 52.5 % Normal . [facility] Comment on above: Performed By: #### L IPID, [id number], PT, CBC, HEPATIC, BMP, PTT, TSH3, MG #### [facility] [address] [place] [address] NRBC% 0.1 /100{WBC} Normal 0-0.5 [facility] Comment on above: Performed By: #### L IPID, [id number], PT, CBC, HEPATIC, BMP, PTT, TSH3, MG #### [address] Platelet mean volume (Bld) [Entitic vol] 7.3 fL Normal 6.6-10.1 [facility] Comment on above: Performed By: #### L IPID, [id number], PT, CBC, HEPATIC, BMP, PTT, TSH3, MG #### [place] [address] [place] Platelets (Bld) [#/Vol] 153 10*3/uL Normal 150-450 [facility] Comment on above: Performed By: #### L IPID, [id number], PT, CBC, HEPATIC, BMP, PTT, TSH3, MG #### [facility] [address] [place] [address] RBC (Bld) [#/Vol] 4.61 10*6/uL Normal 3.90-5.60 [facility] Comment on above: Performed By: #### L IPID, [id number], PT, CBC, HEPATIC, BMP, PTT, TSH3, MG #### [facility] [address] [place] [address] WBC (Bld) [#/Vol] 4.1 10*3/uL Normal 4.1-10.5 [facility] Comment on above: Performed By: #### L IPID, [id number], PT, CBC, HEPATIC, BMP, PTT, TSH3, MG #### [facility] [address] Hepatic Panelon 06-22-2023 Albumin [Mass/Vol] 3.8 g/dL Normal 3.5-5.7 [facility] Comment on above: Order Comment: FASTI NG Y Performed By: #### H S TROP, CMP, CK, CBC #### [address] Albumin/Globulin [Mass ratio] 1.6 {ratio} Normal [facility] Comment on above: Order Comment: FASTI NG Y Performed By: #### H S TROP, CMP, CK, CBC #### [address] ALP [Catalytic activity/Vol] 57 U/L Normal 34-104 [facility] Comment on above: Order Comment: FASTI NG Y Performed By: #### H S TROP, CMP, CK, CBC #### [address] ALT [Catalytic activity/Vol] 26 U/L Normal 7-52 [facility] Comment on above: Order Comment: FASTI NG Y Performed By: #### H S TROP, CMP, CK, CBC #### [address] AST [Catalytic activity/Vol] 27 U/L Normal 13-39 [facility] Comment on above: Order Comment: FASTI NG Y Performed By: #### H S TROP, CMP, CK, CBC #### [address] [place] [address] [place] Bilirubin [Mass/Vol] 1.0 mg/dL Normal 0.3-1.0 [facility] Comment on above: Order Comment: FASTI NG Y Performed By: #### H S TROP, CMP, CK, CBC #### [address] Bilirubin,Indirect 0.8 mg/dL Normal [facility] Comment on above: Order Comment: FASTI NG Y Performed By: #### H S TROP, CMP, CK, CBC #### [address] Bilirubin.indirect [Mass/Vol] 0.20 mg/dL High 0.03-0.18 [facility] Comment on above: Order Comment: FASTI NG Y Performed By: #### H S TROP, CMP, CK, CBC #### [address] Globulin (S) [Mass/Vol] 2.4 g/dL Normal [facility] Comment on above: Order Comment: FASTI NG Y Performed By: #### H S TROP, CMP, CK, CBC #### [address] Protein [Mass/Vol] 6.2 g/dL Low 6.4-8.9 [facility] Comment on above: Order Comment: FASTI NG Y Performed By: #### H S TROP, CMP, CK, CBC #### [address] Lipid Panelon 06-22-2023 Cholesterol [Mass/Vol] 108 mg/dL Low 140-200 [facility] Comment on above: Order Comment: FASTI NG Y Result Comment: Chol less than 200 mg/dl low risk Chol 201-239 mg/dl borderline risk Chol 240 mg/dl and greater high risk Performed By: #### H S TROP, CMP, CK, CBC #### [address] Cholesterol in HDL [Mass/Vol] 30 mg/dL Normal 23-92 [facility] Comment on above: Order Comment: SHABANA Child Result Comment: HDL CHOL ATP-III CLASSIFICATION Cardiovascular Risk HDL > or equal to 60 mg/dL LOW HDL < 40 mg/dL HIGH Performed By: #### H S TROP, CMP, CK, CBC #### [facility] [address] Cholesterol.total/Chol esterol in HDL [Mass ratio] 3.6 {ratio} Normal <5.0 [facility] Comment on above: Order Comment: SHABANA Child Performed By: #### H S TROP, CMP, CK, CBC #### [facility] [address] LDL Cholesterol,Calculated 54 mg/dL Normal 0-100 [facility] Comment on above: Order Comment: SHABANA Child Result Comment: LDL ATP III CLASSIFICATION LDL less than 100 mg/dL Optimal LDL 100-129 mg/dL Near or above optimal LDL 130-159 mg/dL Borderline high LDL 160-189 mg/dL High LDL greater than 189 mg/dL Very high Performed By: #### H S TROP, CMP, CK, CBC #### [facility] [address] Triglyceride w/Reflex 120 mg/dL Normal 0-[address] [facility] Comment on above: Order Comment: SHABANA Child Result Comment: TRIG ATP III CLASSIFICATION TRIG less than 150 mg/dL Normal TRIG 150-199 mg/dL Borderline high TRIG 200-500 mg/dL High TRIG greater than 500 mg/dL Very high Standard traceable to the Center for Disease Conrtrol and Prevention (CDC) test method. Performed By: #### H S TROP, CMP, CK, CBC #### [facility] [address] VLDL CHOLESTEROL 24 mg/dL Normal [facility] Comment on above: Order Comment: SHABANA Child Performed By: #### H S TROP, CMP, CK, CBC #### [facility] [address] MR angio head wo noelon 06-22 MR angio head wo con [facility] [place] [address] [place] [address] MRI Report Signed Patient: Yonatan Patel MR#: [id number] 6 : 1945 Acct:[id number] Age/Sex: 78 / M ADM Date: 06/20/23 Loc: 4N Room: 8W7013-4 Type: ADM IN Attending Dr: Maren Petersen MD Copies to: MD Berhane Rocha MD Ordering Provider: Berhane Trammell MD Date of Service: 06/22/23 MR/MR angio head wo con: stroke MRI/MRA BRAIN WITHOUT CONTRAST COMPARISON: CT 06/20/2023 CLINICAL DATA: Confusion Sagittal T2, axial FLAIR and diffusion-weighted imaging was performed. 3-D kozn-vr-xnehto imaging of the [place] of [place] was also performed. There is [...] Selena Reid M.D.06/22/2023 4:25 PM Dictation Location: [place] [address] Transcribed By: [facility] 06/22/23 1625 Dictated By: Selena Reid MD 06/22/23 1617 Signed By: 06/22/23 1625 Normal [facility] Magnesiumon 06-22-2023 Magnesium [Mass/Vol] 2.1 mg/dL Normal 1.9-2.7 [facility] Comment on above: Order Comment: FASTI NG Y Performed By: #### H S TROP, CMP, CK, CBC #### [place] [id number] [facility] Partial Thromboplastin Timeo n 06-22-2023 aPTT Coag (Bld) [Time] 27.4 s Normal 25.1-36.5 [facility] Comment on above: Result Comment: A he matocrit value greater than 55% may lead to inaccurate results in coagulation testing. Patients having hematocrit values >55% require a special collection tube for coagulation studies. Please contact the laboratory at [phone] for redraw instructions. PERFORMED BY: [place] [id number] PATHOLOGIST ORTHOPAEDIC PHYSICIAN ASSISTANT HARRY MARTI M.D. Performed By: #### H S TROP, CMP, CK, CBC #### [place] [id number] [facility] Prothrombin Time INRon 06-22 INR Coag (PPP) [Relative time] 1.0 {INR} Normal [facility] Comment on above: Result Comment: INR Therapeutic [...] - 4.5 Performed By: #### L IPID, [id number], PT, CBC, HEPATIC, BMP, PTT, TSH3, MG #### [place] [id number] [facility] PT Coag (PPP) [Time] 11.6 s Normal 9.0-12.9 [facility] Comment on above: Result Comment: A he matocrit value greater than 55% may lead to inaccurate results in coagulation testing. Patients having hematocrit values >55% require a special collection tube for coagulation studies. Please contact the laboratory at [phone] for redraw instructions. Performed By: #### L IPID, [id number], PT, CBC, HEPATIC, BMP, PTT, TSH3, MG #### [address] [address] [facility] Thyroid Stimulating Hormoneo n 06-22-2023 TSH Qn 2.38 m[IU]/L Normal 0.45-5.33 [facility] Comment on above: Order Comment: FASTI NG Y Result Comment: PERF ORMED BY: [place] [address] PATHOLOGIST ORTHOPAEDIC PHYSICIAN ASSISTANT HARRY MARTI M.D. Performed By: #### H S TROP, CMP, CK, CBC #### [facility] [address] [place] [address] Vit. B12/Folate Profileon Cobalamin (Vitamin B12) [Mass/Vol] 425 pg/mL Normal 180-914 [facility] Comment on above: Order Comment: FASTI NG Y Performed By: #### H S TROP, CMP, CK, CBC #### [facility] [address] [place] [address] Folate 29.0 ng/mL Normal >5.9 [facility] Comment on above: Order Comment: FASTI NG Y Result Comment: Aye te reference range: >5.9 ng/ml The WHO technical consultation on folate and vitamin b12 deficiencies has determined that folate concentrations less than 4 ng/ml are considered deficient. Performed By: #### H S TROP, CMP, CK, CBC #### [facility] [address] [place] [address] Vitamin B1 (Thiamine) Bloodo n 06-22-2023 Vitamin B1 (Thiamine) Blood 143.9 Normal 66.5-200.0 [facility] Comment on above: Result Comment: This test was developed and its performance characteristics determined by [employer]. It has not been cleared or approved by the Food and Drug Administration. Performed at: [address] [id number] Weld Inspector: Juan Howard MD, Phone: [phone] PERFORMED BY: [place] [address] PATHOLOGIST ORTHOPAEDIC PHYSICIAN ASSISTANT HARRY MARTI M.D. Performed By: #### V ITB1 #### [facility] , Ammoniaon 06-21-2023 Ammonia (P) [Moles/Vol] 19 umol/L Normal 11-35 [facility] Comment on above: Result Comment: PERF ORMED BY: [place] [address] PATHOLOGIST ORTHOPAEDIC PHYSICIAN ASSISTANT HARRY MARTI M.D. Performed By: #### H S TROP, CMP, CK, CBC #### [facility] [address] Basic Metabolic Panelon 11 Anion gap [Moles/Vol] 11.3 mmol/L Normal 6.0-15.0 [facility] Comment on above: Performed By: #### H S TROP, CMP, CK, CBC #### [address] Calcium [Mass/Vol] 9.4 mg/dL Normal 8.6-10.3 [facility] Comment on above: Performed By: #### H S TROP, CMP, CK, CBC #### [facility] [address] Chloride [Moles/Vol] 107 mmol/L Normal 98-107 [facility] Comment on above: Performed By: #### H S TROP, CMP, CK, CBC #### [facility] [address] [place] [address] CO2 [Moles/Vol] 25.7 mmol/L Normal 21.0-31.0 [facility] Comment on above: Performed By: #### H S TROP, CMP, CK, CBC #### [facility] [address] [place] [address] Creatinine [Mass/Vol] 0.83 mg/dL Normal 0.70-1.[address] [facility] Comment on above: Performed By: #### H S TROP, CMP, CK, CBC #### [facility] [address] [place] [address] [place] Creatinine Clr Calc Pharmacy 80.52 Normal [facility] Comment on above: Result Comment: PERF ORMED BY: [facility] [address] [place] [address] PATHOLOGIST ORTHOPAEDIC PHYSICIAN ASSISTANT HARRY MARTI M.D. Performed By: #### H S TROP, CMP, CK, CBC #### [facility] [address] [place] [address] [place] GFR/1.73 sq M.predicted MDRD (S/P/Bld) [Vol rate/Area] mL/min/{1.73_m2} Normal [facility] Comment on above: Performed By: #### H S TROP, CMP, CK, CBC #### [address] Glucose [Mass/Vol] 174 mg/dL High 70-100 [facility] Comment on above: Result Comment: [facility] Glucose Reference Range is dependent on time and content of last meal. Glucose of more than 200 mg/dL in a nonstressed, ambulatory subject supports the diagnosis of Diabetes Mellitus. ADA recommended reference range Performed By: #### H S TROP, CMP, CK, CBC #### [address] Potassium [Moles/Vol] 4.0 mmol/L Normal 3.5-5.[address] [facility] Comment on above: Performed By: #### H S TROP, CMP, CK, CBC #### [address] Sodium [Moles/Vol] 140 mmol/L Normal 136-145 [facility] Comment on above: Performed By: #### H S TROP, CMP, CK, CBC #### [address] Urea nitrogen [Mass/Vol] 11 mg/dL Normal 7-25 [facility] Comment on above: Performed By: #### H S TROP, CMP, CK, CBC #### [address] Hemogram CBC Without Diffon 06-21-2023 Erythrocyte distribution width (RBC) [Ratio] 14.7 % Normal 12.0-14.8 [facility] Comment on above: Performed By: #### H S TROP, CMP, CK, CBC #### [address] Hematocrit (Bld) [Volume fraction] 40.7 % Normal 38.8-50.0 [facility] Comment on above: Performed By: #### H S TROP, CMP, CK, CBC #### [address] Hemoglobin (Bld) [Mass/Vol] 13.9 g/dL Normal 13.0-17.0 [facility] Comment on above: Performed By: #### H S TROP, CMP, CK, CBC #### [address] MCH (RBC) [Entitic mass] 29.7 pg Normal 27.5-35.2 [facility] Comment on above: Performed By: #### H S TROP, CMP, CK, CBC #### [address] MCV (RBC) [Entitic vol] 86.8 fL Normal 83.5-101 [facility] Comment on above: Performed By: #### H S TROP, CMP, CK, CBC #### [address] Mean Corpuscular HGB Conc 34.2 g/dL Normal 32.5-35.6 [facility] Comment on above: Performed By: #### H S TROP, CMP, CK, CBC #### [address] Platelet mean volume (Bld) [Entitic vol] 7.3 fL Normal 6.6-10.1 [facility] Comment on above: Result Comment: PERF ORMED BY: [place] [address] PATHOLOGIST ORTHOPAEDIC PHYSICIAN ASSISTANT HARRY MARTI M.D. Performed By: #### H S TROP, CMP, CK, CBC #### [address] Platelets (Bld) [#/Vol] 144 10*3/uL Low 150-450 [facility] Comment on above: Performed By: #### H S TROP, CMP, CK, CBC #### [facility] [address] RBC (Bld) [#/Vol] 4.69 10*6/uL Normal 3.90-5.60 [facility] Comment on above: Performed By: #### H S TROP, CMP, CK, CBC #### [facility] [address] WBC (Bld) [#/Vol] 3.9 10*3/uL Low 4.1-10.5 [facility] Comment on above: Performed By: #### H S TROP, CMP, CK, CBC #### [facility] [address] COVID CepheidOrdered By: Huy Palacios on 06-20-2023 SARS-CoV-2 (COVID-19) Ab IA Ql Positive Negative [facility] Comment on above: This is a duplicate Cepheid Xpert Xpress CoV-2/Flu/RSV Plus RNA by RT-PCR result to be used for statistical tracking purpose only. SARS-CoV-2 (COVID-19) RNA MARIANNE+probe Ql (Unsp spec) [facility] COVID-19 / Flu A/B / RSV PCR [...] or Cepheid Disclaimer revoked sooner. PERFORMED BY: [place] [address] PATHOLOGIST ORTHOPAEDIC PHYSICIAN ASSISTANT HARRY MARTI M.D. [facility] Comment on above: Performed By: #### H S TROP, CMP, CK, CBC #### [address] head/brain wo [facility] 06-20 CT head/brain wo [facility] [place] [address] CT Scan Report Signed Patient: Yonatan Patel MR#: [id number] 6 : 1945 Acct:[id number] Age/Sex: 78 / M ADM Date: 06/20/23 Loc: Room: [address] [place] [address] Type: ADM INOo Attending Dr: Jassi Arias [...] Daisha Fernandez M.D.06/20/2023 8:34 AM Dictation Location: [place] [address] Transcribed By: [facility] 06/20/23833 Dictated By: Daisha Fernandez II, MD 06/20/2330 Signed By: 06/20/23833 Normal [facility] Cepheid COVID PCR Positiveon 06-20-2023 SARS-CoV-2 (COVID-19) RNA MARIANNE+probe Ql (Unsp spec) Positive Critically abnormal Negative [facility] Comment on above: Result Comment: This is a duplicate Cepheid Xpert Xpress CoV-2/Flu/RSV Plus RNA by RT-PCR result to be used for statistical tracking purpose only. PERFORMED BY: [place] [address] [place] [address] PATHOLOGIST ORTHOPAEDIC PHYSICIAN ASSISTANT HARRY MARTI M.D. Performed By: #### H S TROP, CMP, CK, CBC #### [facility] [address] [place] [address] Complete Blood Count Auto Di ffon 06-20-2023 Basophils (Bld) [#/Vol] 0.0 10*3/uL Normal 0.0-0.2 [facility] Comment on above: Result Comment: PERF ORMED BY: [place] [address] PATHOLOGIST ORTHOPAEDIC PHYSICIAN ASSISTANT HARRY MARTI M.D. Performed By: #### H S TROP, CMP, CK, CBC #### [address] Basophils/100 WBC (Bld) 0.4 % Normal . [facility] Comment on above: Performed By: #### H S TROP, CMP, CK, CBC #### [address] Eosinophils (Bld) [#/Vol] 0.0 10*3/uL Normal 0.0-0.45 [facility] Comment on above: Performed By: #### H S TROP, CMP, CK, CBC #### [address] Eosinophils/100 WBC (Bld) 0.6 % Normal . [facility] Comment on above: Performed By: #### H S TROP, CMP, CK, CBC #### [address] Erythrocyte distribution width (RBC) [Ratio] 14.9 % High 12.0-14.8 [facility] Comment on above: Performed By: #### H S TROP, CMP, CK, CBC #### [address] Hematocrit (Bld) [Volume fraction] 43.3 % Normal 38.8-50.0 [facility] Comment on above: Performed By: #### H S TROP, CMP, CK, CBC #### [facility] [address] [place] [address] Hemoglobin (Bld) [Mass/Vol] 14.8 g/dL Normal 13.0-17.0 [facility] Comment on above: Performed By: #### H S TROP, CMP, CK, CBC #### [address] Lymphocytes (Bld) [#/Vol] 1.0 10*3/uL Normal 1.00-4.8 [facility] Comment on above: Performed By: #### H S TROP, CMP, CK, CBC #### [address] Lymphocytes/100 WBC (Bld) 20.8 % Normal . [facility] Comment on above: Performed By: #### H S TROP, CMP, CK, CBC #### [address] MCH (RBC) [Entitic mass] 30.0 pg Normal 27.5-35.2 [facility] Comment on above: Performed By: #### H S TROP, CMP, CK, CBC #### [address] MCV (RBC) [Entitic vol] 87.6 fL Normal 83.5-101 [facility] Comment on above: Performed By: #### H S TROP, CMP, CK, CBC #### [address] Mean Corpuscular HGB Conc 34.2 g/dL Normal 32.5-35.6 [facility] Comment on above: Performed By: #### H S TROP, CMP, CK, CBC #### [address] Monocytes (Bld) [#/Vol] 0.8 10*3/uL Normal 0.0-0.8 [facility] Comment on above: Performed By: #### H S TROP, CMP, CK, CBC #### [address] Monocytes/100 WBC (Bld) 24.01 % High 0.00-20.00 [facility] Comment on above: Result Comment: For adults in ED, MDW > 20.0 may be associated with a higher risk of sepsis during the first 12 hrs of hospital admission Performed By: #### H S TROP, CMP, CK, CBC #### [address] Monocytes/100 WBC (Bld) 15.6 % Normal . [facility] Comment on above: Performed By: #### H S TROP, CMP, CK, CBC #### [address] Neutrophils (Bld) [#/Vol] 3.0 10*3/uL Normal 1.8-7.7 [facility] Comment on above: Performed By: #### H S TROP, CMP, CK, CBC #### [address] Neutrophils/100 WBC (Bld) 62.6 % Normal . [facility] Comment on above: Performed By: #### H S TROP, CMP, CK, CBC #### [address] NRBC% 0.4 /100{WBC} Normal 0-0.5 [facility] Comment on above: Performed By: #### H S TROP, CMP, CK, CBC #### [address] Platelet mean volume (Bld) [Entitic vol] 7.9 fL Normal 6.6-10.1 [facility] Comment on above: Performed By: #### H S TROP, CMP, CK, CBC #### [address] Platelets (Bld) [#/Vol] 154 10*3/uL Normal 150-450 [facility] Comment on above: Performed By: #### H S TROP, CMP, CK, CBC #### [address] RBC (Bld) [#/Vol] 4.94 10*6/uL Normal 3.90-5.60 [facility] Comment on above: Performed By: #### H S TROP, CMP, CK, CBC #### [facility] [address] WBC (Bld) [#/Vol] 4.8 10*3/uL Normal 4.1-10.5 [facility] Comment on above: Performed By: #### H S TROP, CMP, CK, CBC #### [address] Comprehensive Metabolic Pane alex 06-20-2023 Albumin [Mass/Vol] 4.2 g/dL Normal 3.5-5.7 [facility] Comment on above: Performed By: #### H S TROP, CMP, CK, CBC #### [address] Albumin/Globulin [Mass ratio] 1.6 {ratio} Normal [facility] Comment on above: Performed By: #### H S TROP, CMP, CK, CBC #### [address] ALP [Catalytic activity/Vol] 53 U/L Normal 34-104 [facility] Comment on above: Performed By: #### H S TROP, CMP, CK, CBC #### [address] ALT [Catalytic activity/Vol] 31 U/L Normal 7-52 [facility] Comment on above: Performed By: #### H S TROP, CMP, CK, CBC #### [address] Anion gap [Moles/Vol] 9.2 mmol/L Normal 6.0-15.[address] [facility] Comment on above: Performed By: #### H S TROP, CMP, CK, CBC #### [address] AST [Catalytic activity/Vol] 33 U/L Normal 13-39 [facility] Comment on above: Performed By: #### H S TROP, CMP, CK, CBC #### [address] Bilirubin [Mass/Vol] 1.0 mg/dL Normal 0.3-1.0 [facility] Comment on above: Performed By: #### H S TROP, CMP, CK, CBC #### [address] Calcium [Mass/Vol] 9.8 mg/dL Normal 8.6-10.3 [facility] Comment on above: Performed By: #### H S TROP, CMP, CK, CBC #### [facility] [address] Chloride [Moles/Vol] 107 mmol/L Normal 98-107 [facility] Comment on above: Performed By: #### H S TROP, CMP, CK, CBC #### [address] CO2 [Moles/Vol] 25.6 mmol/L Normal 21.0-31.0 [facility] Comment on above: Performed By: #### H S TROP, CMP, CK, CBC #### [address] Creatinine [Mass/Vol] 0.95 mg/dL Normal 0.70-1.[address] [facility] Comment on above: Performed By: #### H S TROP, CMP, CK, CBC #### [address] Creatinine Clr Calc Pharmacy 70.44 [facility] Comment on above: Result Comment: PERF ORMED BY: [place] [address] PATHOLOGIST ORTHOPAEDIC PHYSICIAN ASSISTANT HARRY MARTI M.D. Performed By: #### H S TROP, CMP, CK, CBC #### [address] GFR/1.73 sq M.predicted MDRD (S/P/Bld) [Vol rate/Area] mL/min/{1.73_m2} [facility] Comment on above: Performed By: #### H S TROP, CMP, CK, CBC #### [address] Globulin (S) [Mass/Vol] 2.7 g/dL Normal [facility] Comment on above: Performed By: #### H S TROP, CMP, CK, CBC #### [facility] [address] Glucose [Mass/Vol] 94 mg/dL Normal 70-100 [facility] Comment on above: Result Comment: [place] Glucose Reference Range is dependent on time and content of last meal. Glucose of more than 200 mg/dL in a nonstressed, ambulatory subject supports the diagnosis of Diabetes Mellitus. ADA recommended reference range Performed By: #### H S TROP, CMP, CK, CBC #### [facility] [address] Potassium [Moles/Vol] 3.8 mmol/L Normal 3.5-5.[address] [facility] Comment on above: Performed By: #### H S TROP, CMP, CK, CBC #### [facility] [address] Protein [Mass/Vol] 6.9 g/dL Normal 6.4-8.9 [facility] Comment on above: Performed By: #### H S TROP, CMP, CK, CBC #### [address] Sodium [Moles/Vol] 138 mmol/L Normal 136-145 [facility] Comment on above: Performed By: #### H S TROP, CMP, CK, CBC #### [facility] [address] [place] [address] [place] Urea nitrogen [Mass/Vol] 18 mg/dL Normal 7-25 [facility] Comment on above: Performed By: #### H S TROP, CMP, CK, CBC #### [facility] [address] [place] [address] [place] Creatine Kinaseon 06-20-2023 CK [Catalytic activity/Vol] 113 U/L Normal 30-223 [facility] Comment on above: Performed By: #### H S TROP, CMP, CK, CBC #### [place] [address] [place] Troponin I High Sensitivityo n 06-20-2023 Troponin I High Sensitivity 7.8 pg/mL Normal 0.0-20.0 [facility] Comment on above: Result Comment: PERF ORMED BY: [place] [address] PATHOLOGIST ORTHOPAEDIC PHYSICIAN ASSISTANT HARRY MARTI M.D. Performed By: #### H S TROP, CMP, CK, CBC #### [facility] [address] [place] [address] Urinalysison 06-20-2023 Appearance (U) Clear Normal Clear [facility] Comment on above: Order Comment: Name Collection Type:: Clean-Voided Midstream Performed By: #### H S TROP, CMP, CK, CBC #### [address] Bilirubin,Urine Negative Normal Negative [facility] Comment on above: Order Comment: Name Collection Type:: Clean-Voided Midstream Performed By: #### H S TROP, CMP, CK, CBC #### [address] Color (U) Yellow Normal Yellow [facility] Comment on above: Order Comment: Name Collection Type:: Clean-Voided Midstream Performed By: #### H S TROP, CMP, CK, CBC #### [facility] [address] [place] [address] Glucose Ql (U) Normal Normal Normal [facility] Comment on above: Order Comment: Name Collection Type:: Clean-Voided Midstream Performed By: #### H S TROP, CMP, CK, CBC #### [facility] [address] [place] [address] Ketones Ql (U) Negative Normal Negative [facility] Comment on above: Order Comment: Name Collection Type:: Clean-Voided Midstream Performed By: #### H S TROP, CMP, CK, CBC #### [facility] [address] [place] [address] Leukocyte esterase Test strip Ql (U) Negative Normal Negative [facility] Comment on above: Order Comment: Name Collection Type:: Clean-Voided Midstream Performed By: #### H S TROP, CMP, CK, CBC #### [address] Nitrite,Urine Negative Normal Negative [facility] Comment on above: Order Comment: Name Collection Type:: Clean-Voided Midstream Performed By: #### H S TROP, CMP, CK, CBC #### [address] Occult Blood,Urine Negative Normal Negative [facility] Comment on above: Order Comment: Name Collection Type:: Clean-Voided Midstream Result Comment: PERF ORMED BY: [place] [address] PATHOLOGIST ORTHOPAEDIC PHYSICIAN ASSISTANT HARRY MARTI M.D. Performed By: #### H S TROP, CMP, CK, CBC #### [address] pH (U) 5.5 [pH] Normal 5.0-9.0 [facility] Comment on above: Order Comment: Name Collection Type:: Clean-Voided Midstream Performed By: #### H S TROP, CMP, CK, CBC #### [address] Protein,Urine Negative Normal Negative [facility] Comment on above: Order Comment: Name Collection Type:: Clean-Voided Midstream Performed By: #### H S TROP, CMP, CK, CBC #### [address] Specificy [place],Urine 1.005 Normal 1.001-1.03 0 [facility] Comment on above: Order Comment: Name Collection Type:: Clean-Voided Midstream Performed By: #### H S TROP, CMP, CK, CBC #### [address] Urobilinogen,Urine Normal Normal Normal [facility] Comment on above: Order Comment: Name Collection Type:: Clean-Voided Midstream Performed By: #### H S TROP, CMP, CK, CBC #### [address] XR chest 2V*on 06-20-2023 XR chest 2V* [facility] [place] [address] [place] [id number] XRay Report Signed Patient: Yonatan Patel MR#: [id number] 6 : 1945 Acct:[id number] Age/Sex: 78 / M ADM Date: 06/20/23 Loc: Room: [address] [place] [address] Type: ADM INOo Attending Dr: Jassi Arias [...] Daisha Fernandez M.D.06/20/2023 11:21 AM Dictation Location: [place] [address] Transcribed By: [facility] 06/20/23 1121 Dictated By: Daisha Fernandez II, MD 06/20/23 1120 Signed By: 06/20/23 1121 Normal [facility] Alanine aminotransferase [En zymatic activity/volume] in Serum or PlasmaOrdered By: PROVIDER TEMP on 06-19-2023 ALT [Catalytic activity/Vol] 31 U/L 7-52 [facility] Albumin [Mass/volume] in Ser um or Plasma by Bromocresol green (BCG) dye binding methoOrdered By: PROVIDER TEMP on 06-19-2023 Albumin BCG dye [Mass/Vol] 4.2 g/dL 3.5-5.7 [facility] Alkaline phosphatase [Enzyma tic activity/volume] in Serum or PlasmaOrdered By: PROVIDER TEMP on 06-19-2023 ALP [Catalytic activity/Vol] 53 U/L 34-104 [facility] Aspartate aminotransferase [ Enzymatic activity/volume] in Serum or PlasmaOrdered By: PROVIDER TEMP on 06-19-2023 AST [Catalytic activity/Vol] 33 U/L 13-39 [facility] Basophils Auto (Bld) [#/Vol] Ordered By: PROVIDER TEMP on 06-19-2023 Basophils (Bld) [#/Vol] 0.0 10*3/uL 0.0-0.2 [facility] Basophils/100 WBC Auto (Bld) Ordered By: PROVIDER TEMP on 06-19-2023 Basophils/100 WBC (Bld) 0.4 % . [facility] Bilirubin Auto test strip Ql (U)Ordered By: PROVIDER TEMP on 06-19-2023 Bilirubin Ql (U) Negative Negative [facility] Bilirubin.total [Mass/volume ] in Serum or PlasmaOrdered By: PROVIDER TEMP on 06-19-2023 Bilirubin [Mass/Vol] 1.0 mg/dL 0.3-1.0 [facility] Calcium [Mass/volume] in Ser um or PlasmaOrdered By: PROVIDER TEMP on 06-19-2023 Calcium [Mass/Vol] 9.8 mg/dL 8.6-10.3 [facility] Carbon dioxide, total [Moles /volume] in Serum or PlasmaOrdered By: PROVIDER TEMP on 06-19-2023 CO2 [Moles/Vol] 25.6 mmol/L 21.0-31.0 [facility] Chloride [Moles/volume] in S raymundo or PlasmaOrdered By: PROVIDER TEMP on 06-19-2023 Chloride [Moles/Vol] 107 mmol/L 98-107 [facility] Creatine kinase [Enzymatic a ctivity/volume] in Serum or PlasmaOrdered By: PROVIDER TEMP on 06-19-2023 CK [Catalytic activity/Vol] 113 U/L 30-223 [facility] Creatinine [Mass/volume] in Serum or PlasmaOrdered By: PROVIDER TEMP on 06-19-2023 Creatinine [Mass/Vol] 0.95 mg/dL 0.70-1.[address] [facility] Eosinophils Auto (Bld) [#/Vo l]Ordered By: PROVIDER TEMP on 06-19-2023 Eosinophils (Bld) [#/Vol] 0.0 10*3/uL 0.0-0.45 [facility] Eosinophils/100 WBC Auto (Bl d)Ordered By: PROVIDER TEMP on 06-19-2023 Eosinophils/100 WBC (Bld) 0.6 % . [facility] Erythrocyte distribution wid th Auto (RBC) [Ratio]Ordered By: PROVIDER TEMP on 06-19-2023 Erythrocyte distribution width (RBC) [Ratio] 14.9 % 12.0-14.8 [facility] Globulin Calc (S) [Mass/Vol] Ordered By: PROVIDER TEMP on 06-19-2023 Globulin (S) [Mass/Vol] 2.7 g/dL [facility] Glucose [Mass/volume] in Ser um or PlasmaOrdered By: PROVIDER TEMP on 06-19-2023 Glucose [Mass/Vol] 94 mg/dL 70-100 [facility] Comment on above: ADA recommended refe rence rangeRandom Glucose Reference Range is dependent on time and content of last meal. Glucose of more than 200 mg/dL in a nonstressed, ambulatory subject supports the diagnosis of Diabetes Mellitus. Hematocrit Auto (Bld) [Volum e fraction]Ordered By: PROVIDER TEMP on 06-19-2023 Hematocrit (Bld) [Volume fraction] 43.3 % 38.8-50.0 [facility] Hemoglobin [Mass/volume] in BloodOrdered By: PROVIDER TEMP on 06-19-2023 Hemoglobin (Bld) [Mass/Vol] 14.8 g/dL 13.0-17.0 [facility] Ketones Auto test strip (U) [Mass/Vol]Ordered By: PROVIDER TEMP on 06-19-2023 Ketones (U) [Mass/Vol] Negative Negative [facility] Leukocytes [#/volume] correc airam for nucleated erythrocytes in Blood by Automated counOrdered By: PROVIDER TEMP on 06-19-2023 WBC corrected for nucl RBC Auto (Bld) [#/Vol] 4.8 10*3/uL 4.1-10.5 [facility] Lymphocytes Auto (Bld) [#/Vo l]Ordered By: PROVIDER TEMP on 06-19-2023 Lymphocytes (Bld) [#/Vol] 1.0 10*3/uL 1.00-4.8 [facility] Lymphocytes/100 WBC Auto (Bl d)Ordered By: PROVIDER TEMP on 06-19-2023 Lymphocytes/100 WBC (Bld) 20.8 % . [facility] MCH Auto (RBC) [Entitic mass ]Ordered By: PROVIDER TEMP on 06-19-2023 MCH (RBC) [Entitic mass] 30.0 pg 27.5-35.2 [facility] MCHC Auto (RBC) [Mass/Vol]Or dered By: PROVIDER TEMP on 06-19-2023 MCHC (RBC) [Mass/Vol] 34.2 g/dL 32.5-35.[address] [facility] MCV Auto (RBC) [Entitic vol] Ordered By: PROVIDER TEMP on 06-19-2023 MCV (RBC) [Entitic vol] 87.6 fL 83.5-101 [facility] Monocyte distribution width [Entitic volume] in Blood by AutomatedOrdered By: PROVIDER TEMP on 06-19-2023 Monocyte distribution width Auto (Bld) [Entitic vol] 24.01 % 0.00-20.00 [facility] Comment on above: For adults in ED, MD W > 20.0 may be associated with a higher risk of sepsis during the first 12 hrs of hospital admission Monocytes Auto (Bld) [#/Vol] Ordered By: PROVIDER TEMP on 06-19-2023 Monocytes (Bld) [#/Vol] 0.8 10*3/uL 0.0-0.8 [facility] Monocytes/100 WBC Auto (Bld) Ordered By: PROVIDER TEMP on 06-19-2023 Monocytes/100 WBC (Bld) 15.6 % . [facility] Neutrophils Auto (Bld) [#/Vo l]Ordered By: PROVIDER TEMP on 06-19-2023 Neutrophils (Bld) [#/Vol] 3.0 10*3/uL 1.8-7.7 [facility] Neutrophils/100 WBC Auto (Bl d)Ordered By: PROVIDER TEMP on 06-19-2023 Neutrophils/100 WBC (Bld) 62.6 % . [facility] No Panel InformationOrdered By: PROVIDER TEMP on 06-19-2023 Estimated GFR (CKD-EPI) > 60.0 mL/Min [facility] Creatinine Clearance (Chem 70.44 [facility] Nucleated erythrocytes [Pres ence] in Blood by Automated countOrdered By: PROVIDER TEMP on 06-19-2023 Nucleated RBC Auto Ql (Bld) 0.4 /100{WBC} 0-0.5 [facility] Platelet mean volume Auto (B ld) [Entitic vol]Ordered By: PROVIDER TEMP on 06-19-2023 Platelet mean volume (Bld) [Entitic vol] 7.9 fL 6.6-10.1 [facility] Platelets Auto (Bld) [#/Vol] Ordered By: PROVIDER TEMP on 06-19-2023 Platelets (Bld) [#/Vol] 154 10*3/uL 150-450 [facility] Potassium [Moles/volume] in Serum or PlasmaOrdered By: PROVIDER TEMP on 06-19-2023 Potassium [Moles/Vol] 3.8 mmol/L 3.5-5.[address] [facility] Protein Auto test strip (U) [Mass/Vol]Ordered By: PROVIDER TEMP on 06-19-2023 Protein (U) [Mass/Vol] Negative Negative [facility] Protein [Mass/volume] in Ser um or PlasmaOrdered By: PROVIDER TEMP on 06-19-2023 Protein [Mass/Vol] 6.9 g/dL 6.4-8.9 [facility] RBC Auto (Bld) [#/Vol]Ordere d By: PROVIDER TEMP on 06-19-2023 RBC (Bld) [#/Vol] 4.94 10*6/uL 3.90-5.60 [facility] Serum or plasma albumin/glob ulin mass ratioOrdered By: PROVIDER TEMP on 06-19-2023 Albumin/Globulin [Mass ratio] 1.6 {ratio} [facility] Serum or plasma anion gap de terminationOrdered By: PROVIDER TEMP on 06-19-2023 Anion gap [Moles/Vol] 9.2 mmol/L 6.0-15.[address] [facility] Sodium [Moles/volume] in Ser um or PlasmaOrdered By: PROVIDER TEMP on 06-19-2023 Sodium [Moles/Vol] 138 mmol/L 136-145 [facility] Troponin I.cardiac [Mass/vol ume] in Serum or Plasma by Detection limit <= 0.01 ng/Ordered By: PROVIDER TEMP on 06-19-2023 Troponin I.cardiac DL <= 0.01 ng/mL [Mass/Vol] 7.8 pg/mL 0.0-20.0 [facility] Urea nitrogen [Mass/volume] in Serum or PlasmaOrdered By: PROVIDER TEMP on 06-19-2023 Urea nitrogen [Mass/Vol] 18 mg/dL 7-25 [facility] Urine appearanceOrdered By: PROVIDER TEMP on 06-19-2023 Appearance (U) Clear Clear [facility] Urine colorOrdered By: SOLE JEANETTE TEMP on 06-19-2023 Color (U) Yellow Yellow [facility] Urine glucose measurement by automated test strip (mass/volume)Ordered By: PROVIDER TEMP on 06-19-2023 Glucose Auto test strip (U) [Mass/Vol] Normal mg/dL Normal [facility] Urine hemoglobin detection b y automated test stripOrdered By: PROVIDER TEMP on 06-19-2023 Hemoglobin Auto test strip Ql (U) Negative Negative [facility] Urine leukocyte esterase det ection by automated test stripOrdered By: PROVIDER TEMP on 06-19-2023 Leukocyte esterase Auto test strip Ql (U) Negative Negative [facility] Urine nitrite detection by a utomated test stripOrdered By: PROVIDER TEMP on 06-19-2023 Nitrite Auto test strip Ql (U) Negative Negative [facility] Urobilinogen Auto test strip (U) [Mass/Vol]Ordered By: PROVIDER TEMP on 06-19-2023 Urobilinogen (U) [Mass/Vol] Normal mg/dL Normal [facility] WBC Auto (Bld) [#/Vol]Ordere d By: PROVIDER TEMP on 06-19-2023 WBC (Bld) [#/Vol] 4.8 10*3/uL 4.1-10.5 [facility] pH Auto test strip (U)Ordere d By: PROVIDER TEMP on 06-19-2023 pH (U) 1.005 [pH] 1.001-1.03 0 [facility] pH (U) 5.5 [pH] 5.0-9.0 [facility] ECH echo transthoracicon [facility] echo transthoracic [facility] [place] [address] Echocardiogram Signed Patient: Yonatan Patel MR#: [id number] 6 : 1945 Acct:[id number] Age/Sex: 77 / M ADM Date: 03/01/23 Loc: Room: [address] [place] [address] Type: ADM INOo Attending Dr: Angely Lee DO Ordering Provider: Bobo Villagomez MD Date of Service: 03/01/23 [facility] echo transthoracic: Neuro Symptoms/Deficit Copies to: Sinan Jolly MD, [facility] Bobo Villagomez MD Weight: 188 lb Performed [...] 03/02/23 0958 Signed By: Sinan Jolly MD, [facility] 03/02/23 1215 [facility] MR cervical spine wo conon 0 03-02-2023 MR cervical spine wo con [facility] [place] [place] [address] MRI Report Signed Patient: Yonatan Patel MR#: [id number] 6 : 1945 Acct:[id number] Age/Sex: 77 / M ADM Date: 03/01/23 Loc: Room: [address] [place] [address] Type: ADM INOo Attending Dr: Angely Lee [...] Daisha Fernandez M.D.03/02/2023 5:11 PM Dictation Location: [place] [address] Transcribed By: [facility] 03/02/23 171 Dictated By: Daisha Fernandez II, MD 03/02/23 170 Signed By: 03/02/23 171 [facility] MR lumbar spine wo [facility] MR lumbar spine wo [facility] Main [place] [address] [place] [address] MRI Report Signed Patient: Yonatan Patel MR#: [id number] 6 : 1945 Acct:[id number] Age/Sex: 77 / M ADM Date: 03/01/23 Loc: Room: [address] [place] [address] Type: ADM INOo Attending Dr: Angely Lee [...] Daisha Fernandez M.D.03/02/2023 5:18 PM Dictation Location: [place] [address] Transcribed By: [facility] 03/02/231717 Dictated By: Daisha Fernandez II, MD 03/02/231710 Signed By: 03/02/231717 Normal [facility] A1C with Estimated Average [place] 03-01-2023 Glucose [Mass/Vol] 123 mg/dL Normal [facility] Comment on above: Order Comment: Comme nt add on Result Comment: PERF ORMED BY: [place] [address] PATHOLOGIST ORTHOPAEDIC PHYSICIAN ASSISTANT HARRY MARTI M.D. Performed By: #### [facility] Krista, LIPID #### [facility] [address] [place] [address] HbA1c (Bld) [Mass fraction] 5.9 % High 4.3-5.6 [facility] Comment on above: Order Comment: Comme nt add on Result Comment: Incr eased risk for diabetes: 5.7 - 6.4 diabetes: >6.4 glycemic control for adults with diabetes: <7.0 Performed By: #### [facility] Krista, LIPID #### [facility] [address] [place] [address] Activated partial thrombopla stin time (aPTT) in platelet poor plasma by coagulation aOrdered By: Alejo Lynn on 03-01-2023 aPTT Coag (PPP) [Time] 27.2 s 25.1-36.5 [facility] Alanine aminotransferase [En zymatic activity/volume] in Serum or PlasmaOrdered By: Alejo Lynn on 03-01-2023 ALT [Catalytic activity/Vol] 34 U/L 7-52 [facility] Albumin [Mass/volume] in Ser um or Plasma by Bromocresol green (BCG) dye binding methoOrdered By: Alejo Lynn on 03-01-2023 Albumin BCG dye [Mass/Vol] 4.4 g/dL 3.5-5.7 [facility] Alkaline phosphatase [Enzyma tic activity/volume] in Serum or PlasmaOrdered By: Alejo Lynn on 03-01-2023 ALP [Catalytic activity/Vol] 61 U/L 34-104 [facility] Aspartate aminotransferase [ Enzymatic activity/volume] in Serum or PlasmaOrdered By: Alejo Lynn on 03-01-2023 AST [Catalytic activity/Vol] 30 U/L 13-39 [facility] B-Type Natriuretic Peptideon 03-01-2023 Natriuretic peptide B (Bld) [Mass/Vol] 96.0 pg/mL Normal 5-100 [facility] Comment on above: Result Comment: PERF ORMED BY: [place] [address] PATHOLOGIST ORTHOPAEDIC PHYSICIAN ASSISTANT HARRY MARTI M.D. Performed By: #### H S TROP, CMP, CK, CBC #### [address] Basic Metabolic Panelon 02-14 Anion gap [Moles/Vol] 10.3 mmol/L Normal 6.0-15.0 [facility] Comment on above: Performed By: #### H S TROP, CMP, CK, CBC #### [facility] [address] [place] [address] [place] Calcium [Mass/Vol] 9.7 mg/dL Normal 8.6-10.3 [facility] Comment on above: Performed By: #### H S TROP, CMP, CK, CBC #### [facility] [address] [place] [address] [place] Chloride [Moles/Vol] 107 mmol/L Normal 98-107 [facility] Comment on above: Performed By: #### H S TROP, CMP, CK, CBC #### [facility] [address] [place] [address] [place] CO2 [Moles/Vol] 26.0 mmol/L Normal 21.0-31.0 [facility] Comment on above: Performed By: #### H S TROP, CMP, CK, CBC #### [place] [address] [place] Creatinine [Mass/Vol] 0.91 mg/dL Normal 0.70-1.[address] [facility] Comment on above: Performed By: #### H S TROP, CMP, CK, CBC #### [facility] [address] Creatinine Clr Calc Pharmacy 76.53 [facility] Comment on above: Result Comment: PERF ORMED BY: [place] [address] PATHOLOGIST ORTHOPAEDIC PHYSICIAN ASSISTANT HARRY MARTI M.D. Performed By: #### H S TROP, CMP, CK, CBC #### [facility] [address] [place] [address] [place] GFR/1.73 sq M.predicted MDRD (S/P/Bld) [Vol rate/Area] mL/min/{1.73_m2} [facility] Comment on above: Performed By: #### H S TROP, CMP, CK, CBC #### [facility] [address] [place] [address] [place] Glucose [Mass/Vol] 106 mg/dL High 70-100 [facility] Comment on above: Result Comment: [place] Glucose Reference Range is dependent on time and content of last meal. Glucose of more than 200 mg/dL in a nonstressed, ambulatory subject supports the diagnosis of Diabetes Mellitus. ADA recommended reference range Performed By: #### H S TROP, CMP, CK, CBC #### [facility] [address] [place] [address] [place] Potassium [Moles/Vol] 4.3 mmol/L Normal 3.5-5.[address] [facility] Comment on above: Performed By: #### H S TROP, CMP, CK, CBC #### [facility] [address] [place] [address] [place] Sodium [Moles/Vol] 139 mmol/L Normal 136-145 [facility] Comment on above: Performed By: #### H S TROP, CMP, CK, CBC #### [facility] [address] [place] [address] [place] Urea nitrogen [Mass/Vol] 16 mg/dL Normal 7-25 [facility] Comment on above: Performed By: #### H S TROP, CMP, CK, CBC #### [facility] [address] Basophils Auto (Bld) [#/Vol] Ordered By: Alejo Lynn on 03-01-2023 Basophils (Bld) [#/Vol] 0.0 10*3/uL 0.0-0.2 [facility] Basophils/100 WBC Auto (Bld) Ordered By: Alejo Lynn on 03-01-2023 Basophils/100 WBC (Bld) 0.7 % . [facility] Bilirubin Test strip Ql (U)O rdered By: Alejo Lynn on 03-01-2023 Bilirubin Ql (U) Negative Negative [facility] Bilirubin.direct [Mass/volum e] in Serum or PlasmaOrdered By: Alejo Lynn on 03-01-2023 Bilirubin.direct [Mass/Vol] 0.30 mg/dL 0.03-0.18 [facility] Bilirubin.total [Mass/volume ] in Serum or PlasmaOrdered By: Alejo Lynn on 03-01-2023 Bilirubin [Mass/Vol] 1.7 mg/dL 0.3-1.0 [facility] Comment on above: Samples from patient s who have taken Naproxen have shown spurious elevation in Total Bilirubin levels. A metabolite of Naproxen, O-desmethylnaproxen, has been shown to interfere with the [place]-Grof method for measuring Total Bilirubin. CT head stroke alert wo cono n 03-01-2023 CT head stroke alert wo con [facility] Main [place] [address] [place], [place] [id number] CT Scan Report Signed Patient: Yonatan Patel MR#: [id number] 6 : 1945 Acct:[id number] Age/Sex: 77 / M ADM Date: 03/01/23 Loc: ER Room: Type: [facility] ER Attending Dr: Copies to: Alejo [...] Selena Reid M.D.03/01/2023 8:13 AM Dictation Location: [place] [address] Transcribed By: [facility] 03/01/23 0813 Dictated By: Selena Reid MD 03/01/23 0807 Signed By: 03/01/23 0813 Normal [facility] Calcium [Mass/volume] in Ser um or PlasmaOrdered By: Alejo Lynn on 03-01-2023 Calcium [Mass/Vol] 9.7 mg/dL 8.6-10.3 [facility] Carbon dioxide, total [Moles /volume] in Serum or PlasmaOrdered By: Alejo Lynn on 03-01-2023 CO2 [Moles/Vol] 26.0 mmol/L 21.0-31.0 [facility] Chloride [Moles/volume] in S raymundo or PlasmaOrdered By: Alejo Lynn on 03-01-2023 Chloride [Moles/Vol] 107 mmol/L 98-107 [facility] Color Auto (U)Ordered By: Franco red Leah on 03-01-2023 Color (U) Yellow Yellow [facility] Complete Blood Count Auto Di ffon 03-01-2023 Basophils (Bld) [#/Vol] 0.0 10*3/uL Normal 0.0-0.2 [facility] Comment on above: Result Comment: PERF ORMED BY: [place] [address] PATHOLOGIST ORTHOPAEDIC PHYSICIAN ASSISTANT HARRY MARTI M.D. Performed By: #### H S TROP, CMP, CK, CBC #### [address] Basophils/100 WBC (Bld) 0.7 % Normal . [facility] Comment on above: Performed By: #### H S TROP, CMP, CK, CBC #### [address] Eosinophils (Bld) [#/Vol] 0.1 10*3/uL Normal 0.0-0.45 [facility] Comment on above: Performed By: #### H S TROP, CMP, CK, CBC #### [address] Eosinophils/100 WBC (Bld) 1.4 % Normal . [facility] Comment on above: Performed By: #### H S TROP, CMP, CK, CBC #### [address] Erythrocyte distribution width (RBC) [Ratio] 14.5 % Normal 12.0-14.8 [facility] Comment on above: Performed By: #### H S TROP, CMP, CK, CBC #### [address] Hematocrit (Bld) [Volume fraction] 43.2 % Normal 38.8-50.0 [facility] Comment on above: Performed By: #### H S TROP, CMP, CK, CBC #### [address] Hemoglobin (Bld) [Mass/Vol] 14.9 g/dL Normal 13.0-17.0 [facility] Comment on above: Performed By: #### H S TROP, CMP, CK, CBC #### [address] Lymphocytes (Bld) [#/Vol] 1.3 10*3/uL Normal 1.00-4.8 [facility] Comment on above: Performed By: #### H S TROP, CMP, CK, CBC #### [address] Lymphocytes/100 WBC (Bld) 23.7 % Normal . [facility] Comment on above: Performed By: #### H S TROP, CMP, CK, CBC #### [address] MCH (RBC) [Entitic mass] 29.6 pg Normal 27.5-35.2 [facility] Comment on above: Performed By: #### H S TROP, CMP, CK, CBC #### [address] MCV (RBC) [Entitic vol] 86.1 fL Normal 83.5-101 [facility] Comment on above: Performed By: #### H S TROP, CMP, CK, CBC #### [address] Mean Corpuscular HGB Conc 34.4 g/dL Normal 32.5-35.6 [facility] Comment on above: Performed By: #### H S TROP, CMP, CK, CBC #### [address] Monocytes (Bld) [#/Vol] 0.4 10*3/uL Normal 0.0-0.8 [facility] Comment on above: Performed By: #### H S TROP, CMP, CK, CBC #### [place] [address] [place] Monocytes/100 WBC (Bld) 17.75 % Normal 0.00-20.00 [facility] Comment on above: Performed By: #### H S TROP, CMP, CK, CBC #### [address] Monocytes/100 WBC (Bld) 8.3 % Normal . [facility] Comment on above: Performed By: #### H S TROP, CMP, CK, CBC #### [address] Neutrophils (Bld) [#/Vol] 3.5 10*3/uL Normal 1.8-7.7 [facility] Comment on above: Performed By: #### H S TROP, CMP, CK, CBC #### [address] Neutrophils/100 WBC (Bld) 65.9 % Normal . [facility] Comment on above: Performed By: #### H S TROP, CMP, CK, CBC #### [address] NRBC% 0.3 /100{WBC} Normal 0-0.5 [facility] Comment on above: Performed By: #### H S TROP, CMP, CK, CBC #### [address] Platelet mean volume (Bld) [Entitic vol] 8.0 fL Normal 6.6-10.1 [facility] Comment on above: Performed By: #### H S TROP, CMP, CK, CBC #### [address] Platelets (Bld) [#/Vol] 143 10*3/uL Low 150-450 [facility] Comment on above: Performed By: #### H S TROP, CMP, CK, CBC #### [address] RBC (Bld) [#/Vol] 5.02 10*6/uL Normal 3.90-5.60 [facility] Comment on above: Performed By: #### H S TROP, CMP, CK, CBC #### [address] WBC (Bld) [#/Vol] 5.4 10*3/uL Normal 4.1-10.5 [facility] Comment on above: Performed By: #### H S TROP, CMP, CK, CBC #### [address] Creatine Kinaseon 03-01-2023 CK [Catalytic activity/Vol] 178 U/L Normal 30-223 [facility] Comment on above: Performed By: #### H S TROP, CMP, CK, CBC #### [facility] [address] [place] [id number] [facility] Creatine kinase [Enzymatic a ctivity/volume] in Serum or PlasmaOrdered By: Alejo Lynn on 03-01-2023 CK [Catalytic activity/Vol] 178 U/L [facility] Creatinine [Mass/volume] in Serum or PlasmaOrdered By: Alejo Lynn on 03-01-2023 Creatinine [Mass/Vol] 0.91 mg/dL 0.70-1.[address] [facility] ECG 12 lead ECGon 03-01-2023 ECG 12 lead ECG [facility] Main [place] [address] [place] [address] Electrocardiograph Report Signed Patient: Yonatan Patel MR#: [id number] 6 : 1945 Acct:[id number] Age/Sex: 77 / M ADM Date: 03/01/23 Loc: Room: [address] [place] [address] Type: ADM INOo Attending Dr: Bobo Villagomez [...] longer present Confirmed by Alejo Lynn DO ([id number]) on 03/01/2023 3:12:57 PM Referred By: Electronically Signed By:Alejo Lynn DO Transcribed By: MUS Signed By Alejo Lynn DO 3 1513 Normal [facility] Eosinophils Auto (Bld) [#/Vo l]Ordered By: Alejo Lynn on 03-01-2023 Eosinophils (Bld) [#/Vol] 0.1 10*3/uL 0.0-0.45 [facility] Eosinophils/100 WBC Auto (Bl d)Ordered By: Alejo Lynn on 03-01-2023 Eosinophils/100 WBC (Bld) 1.4 % . [facility] Erythrocyte distribution wid th Auto (RBC) [Ratio]Ordered By: Alejo Lynn on 03-01-2023 Erythrocyte distribution width (RBC) [Ratio] 14.5 % 12.0-14.8 [facility] Globulin Calc (S) [Mass/Vol] Ordered By: Alejo Lynn on 03-01-2023 Globulin (S) [Mass/Vol] 2.3 g/dL [facility] Glucose [Mass/volume] in Ser um or PlasmaOrdered By: Alejo Lynn on 03-01-2023 Glucose [Mass/Vol] 106 mg/dL 70-100 [facility] Comment on above: ADA recommended refe rence rangeRandom Glucose Reference Range is dependent on time and content of last meal. Glucose of more than 200 mg/dL in a nonstressed, ambulatory subject supports the diagnosis of Diabetes Mellitus. Hematocrit Auto (Bld) [Volum e fraction]Ordered By: Alejo Lynn on 03-01-2023 Hematocrit (Bld) [Volume fraction] 43.2 % 38.8-50.0 [facility] Hemoglobin [Mass/volume] in BloodOrdered By: Alejo Lynn on 03-01-2023 Hemoglobin (Bld) [Mass/Vol] 14.9 g/dL 13.0-17.0 [facility] Hepatic Panelon 03-01-2023 Albumin [Mass/Vol] 4.4 g/dL Normal 3.5-5.7 [facility] Comment on above: Performed By: #### H S TROP, CMP, CK, CBC #### [facility] [address] [place] [address] [place] Albumin/Globulin [Mass ratio] 1.9 {ratio} Normal [facility] Comment on above: Performed By: #### H S TROP, CMP, CK, CBC #### [facility] [address] [place] [address] [place] ALP [Catalytic activity/Vol] 61 U/L Normal 34-104 [facility] Comment on above: Performed By: #### H S TROP, CMP, CK, CBC #### [facility] [address] ALT [Catalytic activity/Vol] 34 U/L Normal 7-52 [facility] Comment on above: Performed By: #### H S TROP, CMP, CK, CBC #### [facility] [address] AST [Catalytic activity/Vol] 30 U/L Normal 13-39 [facility] Comment on above: Performed By: #### H S TROP, CMP, CK, CBC #### [facility] [address] Bilirubin [Mass/Vol] 1.7 mg/dL High 0.3-1.0 [facility] Comment on above: Result Comment: Samp les from patients who have taken Naproxen have shown spurious elevation in Total Bilirubin levels. A metabolite of Naproxen, O-desmethylnaproxen, has been shown to interfere with the [place]rassik-Grof method for measuring Total Bilirubin. Performed By: #### H S TROP, CMP, CK, CBC #### [address] Bilirubin,Indirect 1.4 mg/dL Normal [facility] Comment on above: Performed By: #### H S TROP, CMP, CK, CBC #### [facility] [address] Bilirubin.indirect [Mass/Vol] 0.30 mg/dL High 0.03-0.18 [facility] Comment on above: Performed By: #### H S TROP, CMP, CK, CBC #### [facility] [address] Globulin (S) [Mass/Vol] 2.3 g/dL Normal [facility] Comment on above: Performed By: #### H S TROP, CMP, CK, CBC #### [facility] [address] Protein [Mass/Vol] 6.7 g/dL Normal 6.4-8.9 [facility] Comment on above: Performed By: #### H S TROP, CMP, CK, CBC #### [facility] [address] Ketones Auto test strip (U) [Mass/Vol]Ordered By: Alejo Lynn on 03-01-2023 Ketones (U) [Mass/Vol] Negative Negative [facility] Laboratory - CoagulationOrde red By: Alejo Lynn on 03-01-2023 PT Coag (PPP) [Time] 11.6 s 9.0-12.9 [facility] Leukocytes [#/volume] correc airam for nucleated erythrocytes in Blood by Automated counOrdered By: Alejo Lynn on 03-01-2023 WBC corrected for nucl RBC Auto (Bld) [#/Vol] 5.4 10*3/uL 4.1-10.5 [facility] Lipid Panelon 03-01-2023 Cholesterol [Mass/Vol] 96 mg/dL Low 140-200 [facility] Comment on above: Order Comment: Comme nt add on Result Comment: Chol less than 200 mg/dl low risk Chol 201-239 mg/dl borderline risk Chol 240 mg/dl and greater high risk Performed By: #### A 1C WT eA, LIPID #### [facility] [address] Cholesterol in HDL [Mass/Vol] 36 mg/dL Normal 23-92 [facility] Comment on above: Order Comment: Comme nt add on Result Comment: HDL CHOL ATP-III CLASSIFICATION Cardiovascular Risk HDL > or equal to 60 mg/dL LOW HDL < 40 mg/dL HIGH Performed By: #### A 1C WT eA, LIPID #### [facility] [address] Cholesterol.total/Chol esterol in HDL [Mass ratio] 2.7 {ratio} Normal <5.0 [facility] Comment on above: Order Comment: Comme nt add on Result Comment: PERF ORMED BY: [place] [address] PATHOLOGIST ORTHOPAEDIC PHYSICIAN ASSISTANT HARRY MARTI M.D. Performed By: #### A 1C WT eA, LIPID #### [facility] [address] LDL Cholesterol,Calculated 39 mg/dL Normal 0-100 [facility] Comment on above: Order Comment: Comme nt add on Result Comment: LDL ATP III CLASSIFICATION LDL less than 100 mg/dL Optimal LDL 100-129 mg/dL Near or above optimal LDL 130-159 mg/dL Borderline high LDL 160-189 mg/dL High LDL greater than 189 mg/dL Very high Performed By: #### A 1C WT eA, LIPID #### [facility] [address] Triglyceride w/Reflex 106 mg/dL Normal 0-[address] [facility] Comment on above: Order Comment: Comme nt add on Result Comment: TRIG ATP III CLASSIFICATION TRIG less than 150 mg/dL Normal TRIG 150-199 mg/dL Borderline high TRIG 200-500 mg/dL High TRIG greater than 500 mg/dL Very high Standard traceable to the Center for Disease Conrtrol and Prevention (CDC) test method. Performed By: #### A 1C WT eA, LIPID #### [facility] [address] VLDL CHOLESTEROL 21 mg/dL Normal [facility] Comment on above: Order Comment: Comme nt add on Performed By: #### A 1C WT eA, LIPID #### [facility] [address] [place] [address] [place] Lymphocytes Auto (Bld) [#/Vo l]Ordered By: Alejo Lynn on 03-01-2023 Lymphocytes (Bld) [#/Vol] 1.3 10*3/uL 1.00-4.8 [facility] Lymphocytes/100 WBC Auto (Bl d)Ordered By: Alejo Lynn on 03-01-2023 Lymphocytes/100 WBC (Bld) 23.7 % . [facility] MCH Auto (RBC) [Entitic mass ]Ordered By: Alejo Lynn on 03-01-2023 MCH (RBC) [Entitic mass] 29.6 pg 27.5-35.2 [facility] MCHC Auto (RBC) [Mass/Vol]Or dered By: Alejo Lynn on 03-01-2023 MCHC (RBC) [Mass/Vol] 34.4 g/dL 32.5-35.[address] [facility] MCV Auto (RBC) [Entitic vol] Ordered By: Alejo Lynn on 03-01-2023 MCV (RBC) [Entitic vol] 86.1 fL 83.5-101 [facility] Monocyte distribution width [Entitic volume] in Blood by AutomatedOrdered By: Alejo Lynn on 03-01-2023 Monocyte distribution width Auto (Bld) [Entitic vol] 17.75 % 0.00-20.00 [facility] Monocytes Auto (Bld) [#/Vol] Ordered By: Alejo Lynn on 03-01-2023 Monocytes (Bld) [#/Vol] 0.4 10*3/uL 0.0-0.8 [facility] Monocytes/100 WBC Auto (Bld) Ordered By: Alejo Lynn on 03-01-2023 Monocytes/100 WBC (Bld) 8.3 % . [facility] Natriuretic peptide B [Mass/ Vol]Ordered By: Alejo Lynn on 03-01-2023 Natriuretic peptide B (Bld) [Mass/Vol] 96.0 pg/mL 5-100 [facility] Neutrophils Auto (Bld) [#/Vo l]Ordered By: Alejo Lynn on 03-01-2023 Neutrophils (Bld) [#/Vol] 3.5 10*3/uL 1.8-7.7 [facility] Neutrophils/100 WBC Auto (Bl d)Ordered By: Alejo Lynn on 03-01-2023 Neutrophils/100 WBC (Bld) 65.9 % . [facility] Nitrite Test strip Ql (U)Ord ered By: Alejo Lynn on 03-01-2023 Nitrite Ql (U) Negative Negative [facility] No Panel InformationOrdered By: Alejo Lynn on 03-01-2023 Estimated GFR (CKD-EPI) > 60.0 mL/Min [facility] Creatinine Clearance (Chem 76.53 [facility] Nucleated erythrocytes [Pres ence] in Blood by Automated countOrdered By: Alejo Lynn on 03-01-2023 Nucleated RBC Auto Ql (Bld) 0.3 /100{WBC} 0-0.5 [facility] Partial Thromboplastin Timeo n 03-01-2023 aPTT Coag (Bld) [Time] 27.2 s Normal 25.1-36.5 [facility] Comment on above: Result Comment: PERF ORMED BY: [facility] [address] [place] [address] PATHOLOGIST ORTHOPAEDIC PHYSICIAN ASSISTANT HARRY MARTI M.D. Performed By: #### H S TROP, CMP, CK, CBC #### [facility] [address] Platelet mean volume Auto (B ld) [Entitic vol]Ordered By: Alejo Lynn on 03-01-2023 Platelet mean volume (Bld) [Entitic vol] 8.0 fL 6.6-10.1 [facility] Platelet poor plasma interna tional normalized ratio (INR) by coagulation assay (relatOrdered By: Alejo Lynn on 03-01-2023 INR Coag (PPP) [Relative time] 1.0 {INR} [facility] Comment on above: INR Therapeutic Rang e [...] 03-01-2023 Platelets (Bld) [#/Vol] 143 10*3/uL 150-450 [facility] Potassium [Moles/volume] in Serum or PlasmaOrdered By: Alejo Lynn on 03-01-2023 Potassium [Moles/Vol] 4.3 mmol/L 3.5-5.[address] [facility] Protein Auto test strip (U) [Mass/Vol]Ordered By: Alejo Lynn on 03-01-2023 Protein (U) [Mass/Vol] Negative Negative [facility] Protein [Mass/volume] in Ser um or PlasmaOrdered By: Alejo Lynn on 03-01-2023 Protein [Mass/Vol] 6.7 g/dL 6.4-8.9 [facility] Prothrombin Time INRon 03-01 INR Coag (PPP) [Relative time] 1.0 {INR} Normal [facility] Comment on above: Result Comment: INR Therapeutic [...] H S TROP, CMP, CK, CBC #### [facility] [address] PT Coag (PPP) [Time] 11.6 s Normal 9.0-12.9 [facility] Comment on above: Performed By: #### H S TROP, CMP, CK, CBC #### [facility] [address] RBC Auto (Bld) [#/Vol]Ordere d By: Alejo Lynn on 03-01-2023 RBC (Bld) [#/Vol] 5.02 10*6/uL 3.90-5.60 [facility] Serum or plasma albumin/glob ulin mass ratioOrdered By: Alejo Lynn on 03-01-2023 Albumin/Globulin [Mass ratio] 1.9 {ratio} [facility] Serum or plasma anion gap de terminationOrdered By: Alejo Lynn on 03-01-2023 Anion gap [Moles/Vol] 10.3 mmol/L 6.0-15.0 [facility] Serum or plasma non-glucuron idated bilirubin measurement (mass/volume)Ordered By: Alejo Lynn on 03-01-2023 Bilirubin.indirect [Mass/Vol] 1.4 mg/dL [facility] Sodium [Moles/volume] in Ser um or PlasmaOrdered By: Alejo Lynn on 03-01-2023 Sodium [Moles/Vol] 139 mmol/L 136-145 [facility] Specific gravity Auto test s trip (U) [Rel density]Ordered By: Alejo Lynn on 03-01-2023 Specific gravity (U) [Rel density] 1.014 1.001-1.03 0 [facility] Troponin I High Sensitivityo n 03-01-2023 Troponin I High Sensitivity 8.1 pg/mL Normal 0.0-20.0 [facility] Comment on above: Result Comment: PERF ORMED BY: [place] [address] PATHOLOGIST ORTHOPAEDIC PHYSICIAN ASSISTANT HARRY MARTI M.D. Performed By: #### H S TROP, CMP, CK, CBC #### [facility] [address] [place] [address] Troponin I.cardiac [Mass/vol ume] in Serum or Plasma by Detection limit <= 0.01 ng/Ordered By: Alejo Lynn on 03-01-2023 Troponin I.cardiac DL <= 0.01 ng/mL [Mass/Vol] 8.1 pg/mL 0.0-20.0 [facility] Urea nitrogen [Mass/volume] in Serum or PlasmaOrdered By: Alejo Lynn on 03-01-2023 Urea nitrogen [Mass/Vol] 16 mg/dL 7-25 [facility] Urinalysison 03-01-2023 Appearance (U) Clear Normal Clear [facility] Comment on above: Order Comment: Name Collection Type:: Clean-Voided Midstream Performed By: #### U A #### [facility] [address] [place] [address] Bilirubin,Urine Negative Normal Negative [facility] Comment on above: Order Comment: Name Collection Type:: Clean-Voided Midstream Performed By: #### U A #### [facility] [address] [place] [address] Color (U) Yellow Normal Yellow [facility] Comment on above: Order Comment: Name Collection Type:: Clean-Voided Midstream Performed By: #### U A #### [facility] [address] [place] [address] Glucose Ql (U) Normal Normal Normal [facility] Comment on above: Order Comment: Name Collection Type:: Clean-Voided Midstream Performed By: #### U A #### [address] Ketones Ql (U) Negative Normal Negative [facility] Comment on above: Order Comment: Name Collection Type:: Clean-Voided Midstream Performed By: #### U A #### [address] Leukocyte esterase Test strip Ql (U) Negative Normal Negative [facility] Comment on above: Order Comment: Name Collection Type:: Clean-Voided Midstream Performed By: #### U A #### [address] Nitrite,Urine Negative Normal Negative [facility] Comment on above: Order Comment: Name Collection Type:: Clean-Voided Midstream Performed By: #### U A #### [address] Occult Blood,Urine Negative Normal Negative [facility] Comment on above: Order Comment: Name Collection Type:: Clean-Voided Midstream Result Comment: PERF ORMED BY: [place] [address] PATHOLOGIST ORTHOPAEDIC PHYSICIAN ASSISTANT HARRY MARTI M.D. Performed By: #### U A #### [address] pH (U) 7.5 [pH] Normal 5.0-9.0 [facility] Comment on above: Order Comment: Name Collection Type:: Clean-Voided Midstream Performed By: #### U A #### [address] Protein,Urine Negative Normal Negative [facility] Comment on above: Order Comment: Name Collection Type:: Clean-Voided Midstream Performed By: #### U A #### [address] Specificy [place],Urine 1.014 Normal 1.001-1.03 0 [facility] Comment on above: Order Comment: Name Collection Type:: Clean-Voided Midstream Performed By: #### U A #### [facility] [address] [place] [address] [place] Urobilinogen,Urine Normal Normal Normal [facility] Comment on above: Order Comment: Name Collection Type:: Clean-Voided Midstream Performed By: #### U A #### [facility] [address] [place] [address] [place] Urine clarity by refractomet ry automatedOrdered By: Alejo Lynn on 03-01-2023 Clarity Refractometry automated (U) Clear Clear [facility] Urine glucose measurement by automated test strip (mass/volume)Ordered By: Alejo Lynn on 03-01-2023 Glucose Auto test strip (U) [Mass/Vol] Normal mg/dL Normal [facility] Urine hemoglobin detection b y automated test stripOrdered By: Alejo Lynn on 03-01-2023 Hemoglobin Auto test strip Ql (U) Negative Negative [facility] Urine leukocyte esterase det ection by automated test stripOrdered By: Alejo Lynn on 03-01-2023 Leukocyte esterase Auto test strip Ql (U) Negative Negative [facility] Urobilinogen Auto test strip (U) [Mass/Vol]Ordered By: Alejo Lynn on 03-01-2023 Urobilinogen (U) [Mass/Vol] Normal mg/dL Normal [facility] WBC Auto (Bld) [#/Vol]Ordere d By: Alejo Lynn on 03-01-2023 WBC (Bld) [#/Vol] 5.4 10*3/uL 4.1-10.5 [facility] XR chest 1V portableon 03-01 XR chest 1V portable [facility] Main [place] [address] [place] [address] XRay Report Signed Patient: Yonatan Patel MR#: [id number] 6 : 1945 Acct:[id number] Age/Sex: 77 / M ADM Date: 03/01/23 Loc: Room: [address] [place] [address] Type: ADM INOo Attending Dr: Bobo Villagomez [...] Selena Reid M.D.03/01/2023 9:15 AM Dictation Location: [place] [address] Transcribed By: [facility] 03/01/2315 Dictated By: Selena Reid MD 03/01/2314 Signed By: 03/01/2315 Normal [facility] pH Auto test strip (U)Ordere d By: Alejo Lynn on 03-01-2023 pH (U) 7.5 [pH] 5.0-9.0 [facility] Office Visiton 11-26-2022 Follow-up visit [id number] Yonatan Patel 1945 M Date Provider Department Center 11/26/2022 [id number], ZEV C[facility] Family History Problem Relation Age of Onset Heart attack Father Heart attack Brother Family Status - Relation Status Age at Father Brother Level of Service:29301 [place] OFFICE/OUTPATIENT ESTABLISHED LOW MDM 20-29 MIN Reason for Visit and Comments: Coronary Artery Disease [187] Hypertension [050165] Hyperlipidemia [182] Normal [facility] H Pylori Stool Ag, EIAon H Pylori Stool Ag, EIA Negative Normal Negative [facility] Comment on above: Order Comment: SOURC E OF SPECIMEN: STOOL Result Comment: Perf ormed at: - [facility] [address] [id number] Weld Inspector: Juan Howard MD, Phone: [phone] PERFORMED BY: [facility] [address] [place] [address] PATHOLOGIST ORTHOPAEDIC PHYSICIAN ASSISTANT HARRY MARTI M.D. Performed By: #### H S TROP, CMP, CK, CBC #### [facility] [address] CBC AUTO DIFFon 09-14-2022 BASO # 0.0 103/ul Normal 0.0-0.1 [facility] Comment on above: Performed By: #### C BC #### [facility] [address] [place] [address] [address] Patrica Nathan Basophils/100 WBC (Bld) 0.7 % Normal 0.2-2.0 [facility] Comment on above: Performed By: #### C BC #### [facility] [address] [place] [address] Dr. Patrica Nathan EO # 0.1 103/ul Normal 0.0-0.7 [facility] Comment on above: Performed By: #### C BC #### [facility] [address] [place] [address] [address] Patrica Nathan Eosinophils/100 WBC (Bld) 1.5 % Normal 0.9-7.0 [facility] Comment on above: Performed By: #### C BC #### [facility] [address] [place] [address] Dr. Patrica Nathan Erythrocyte distribution width (RBC) [Ratio] 14.2 % Normal 11.0-15.0 [facility] Comment on above: Performed By: #### C BC #### [facility] [address] [place] [address] Dr. Patrica Nathan Hematocrit (Bld) [Volume fraction] 42.1 % Normal 42.0-54.0 [facility] Comment on above: Performed By: #### C BC #### [facility] [address] [place] [address] Dr. Patrica Nathan Hemoglobin (Bld) [Mass/Vol] 14.6 g/dL Normal 14.0-18.0 [facility] Comment on above: Performed By: #### C BC #### [facility] [address] [place] [address] Dr. Patrica Nathan IG # 0.03 10e3/ul Normal 0.00-0.03 [facility] Comment on above: Performed By: #### C BC #### [facility] [address] [place] [address] Dr. Patrica Nathan IG % 0.5 % Normal 0.0-0.5 [facility] Comment on above: Performed By: #### C BC #### [facility] [address] [place] [address] Dr. Patrica Nathan LYMPH # 1.3 103/ul Normal 1.2-3.8 [facility] Comment on above: Performed By: #### C BC #### [facility] [address] [place] [address] Dr. Patrica Nathan Lymphocytes/100 WBC (Bld) 22.4 % Normal 20.5-60.0 [facility] Comment on above: Performed By: #### C BC #### [facility] [address] [place] [address] Dr. Patrica Nathan MANUAL DIFF REQ NO Normal [facility] Comment on above: Performed By: #### C BC #### [facility] [address] [place] [address] Dr. Patrica Nathan MCH (RBC) [Entitic mass] 29.4 pg Normal 25.9-34.0 [facility] Comment on above: Performed By: #### C BC #### [facility] [address] [place] [address] Dr. Patrica Nathan MCHC (RBC) [Mass/Vol] 34.7 g/dL Normal 29.9-35.2 [facility] Comment on above: Performed By: #### C BC #### [facility] [address] [place] [address] Dr. Patrica Nathan MCV (RBC) [Entitic vol] 84.9 fL Normal 80.0-94.0 [facility] Comment on above: Performed By: #### C BC #### [facility] [address] [place] [address] Dr. Patrica Nathan MONO # 0.6 103/ul Normal 0.3-0.8 [facility] Comment on above: Performed By: #### C BC #### [facility] [address] [place] [address] Dr. Patrica Nathan Monocytes/100 WBC (Bld) 9.9 % Normal 1.7-12.0 [facility] Comment on above: Performed By: #### C BC #### [facility] [address] [place] [address] Dr. Patrica Nathan NEUT # 3.9 103/ul Normal 1.4-6.5 [facility] Comment on above: Performed By: #### C BC #### [facility] [address] [place] [address] Dr. Patrica Nathan Neutrophils/100 WBC (Bld) 65.0 % Normal 43.0-75.0 [facility] Comment on above: Performed By: #### C BC #### [facility] [address] [place] [address] Dr. Patrica Nathan Platelet mean volume (Bld) [Entitic vol] 9.6 fL Normal 9.5-13.5 [facility] Comment on above: Performed By: #### C BC #### [facility] [address] [place] [address] Dr. Patrica Nathan PLT 170 103/ul Normal 150-450 [facility] Comment on above: Performed By: #### C BC #### [facility] [address] [place] [address] Dr. Patrica Nathan RBC 4.96 106/ul Normal 4.70-6.10 [facility] Comment on above: Performed By: #### C BC #### [facility] [address] [place] [address] Dr. Patrica Nathan WBC 6.0 103/ul Normal 4.0-11.0 [facility] Comment on above: Performed By: #### C BC #### [facility] [address] [place] [address] HEAD WO CONon [...] ANGELY KENNEDY Date: 2022-09-14 10:00 Normal [facility] PROF 14(COMP METB)on 023 Albumin [Mass/Vol] 3.7 g/dL Normal 3.4-5.0 [facility] Comment on above: Performed By: #### C JV HSTROPN #### [facility] [address] [address] [address] Patrica Nathan Albumin/Globulin [Mass ratio] 1.4 {ratio} Normal [facility] Comment on above: Performed By: #### C JV HSTROPN #### [facility] [address] [place] [address] [address] Patrica Nathan ALP [Catalytic activity/Vol] 83 U/L Normal 46-116 [facility] Comment on above: Performed By: #### C JV HSTROPN #### [facility] [address] [place] [address] [address] Patrica Nathan ALT [Catalytic activity/Vol] 57 U/L Normal 16-63 [facility] Comment on above: Performed By: #### C JV, HSTROPN #### [facility] [address] [place] [address] [address] Patrica Nathan Anion gap [Moles/Vol] 11.9 mmol/L Normal [facility] Comment on above: Performed By: #### C JV, HSTROPN #### [facility] [address] [place] [address] [address] Patrica Nathan AST [Catalytic activity/Vol] 43 U/L Critically high 15-37 [facility] Comment on above: Performed By: #### C JV, HSTROPN #### [facility] [address] [place] [address] Dr. Patrica Nathan Bilirubin [Mass/Vol] 1.1 mg/dL Critically high 0.2-1.0 [facility] Comment on above: Performed By: #### C JV, HSTROPN #### [facility] [address] [place] [address] Dr. Patrica Nathan Calcium [Mass/Vol] 9.2 mg/dL Normal 8.5-10.1 [facility] Comment on above: Performed By: #### C JV, HSTROPN #### [facility] [address] [place] [address] Dr. Patrica Nathan Chloride [Moles/Vol] 106 mmol/L Normal 98-107 [facility] Comment on above: Performed By: #### C JV, HSTROPN #### [facility] [address] [place] [address] Dr. Patrica Nathan CO2 [Moles/Vol] 28.0 mmol/L Normal 21.0-32.0 [facility] Comment on above: Performed By: #### C JV, HSTROPN #### [facility] [address] [place] [address] Dr. Patrica Nathan Creatinine [Mass/Vol] 0.92 mg/dL Normal 0.70-1.30 [facility] Comment on above: Performed By: #### C JV, HSTROPN #### [facility] [address] [place] [address] [address] Patrica Nathan EGFR-AF WALLISIAN >60 Normal >=60 [facility] Comment on above: Performed By: #### C MP, HSTROPN #### [facility] [address] [place] [address] [address] Patrica Nathan EGFR-NON AF WALLISIAN >60 Normal >=60 [facility] Comment on above: Performed By: #### C MP, HSTROPN #### [facility] [address] [place] [address] [address] Patrica Nathan Globulin (S) [Mass/Vol] 2.7 g/dL Normal [facility] Comment on above: Performed By: #### C MP, HSTROPN #### [facility] [address] [place] [address] Dr. Patrica Nathan Glucose [Mass/Vol] 90 mg/dL Normal 74-106 [facility] Comment on above: Performed By: #### C MP, HSTROPN #### [facility] [address] [place] [address] [address] Patrica Nathan Potassium [Moles/Vol] 3.9 mmol/L Normal 3.5-5.1 [facility] Comment on above: Performed By: #### C MP, HSTROPN #### [facility] [address] [place] [address] Dr. Patrica Nathan Protein [Mass/Vol] 6.4 g/dL Normal 6.4-8.2 [facility] Comment on above: Performed By: #### C MP, HSTROPN #### [facility] [address] [place] [address] [address] Patrica Nathan Sodium [Moles/Vol] 142 mmol/L Normal 136-145 [facility] Comment on above: Performed By: #### C MP, HSTROPN #### [facility] [address] [address] [address] Patrica Nathan Urea nitrogen [Mass/Vol] 19.0 mg/dL Critically high 7.0-18.0 [facility] Comment on above: Performed By: #### C MP, HSTROPN #### [facility] [address] [place] [address] [address] Patrica Nathan Urea nitrogen/Creatinine [Mass ratio] 20.7 mg/mg Normal [facility] Comment on above: Performed By: #### C MP, HSTROPN #### [facility] [address] [address] [address] Patrica Nathan TROPONIN, HIGH SENSITIVITYon 09-14-2022 HSTROP 5.8 pg/mL Normal 4.0-76.1 [facility] Comment on above: Result Comment: CUT- OFF POINTS HAVE BEEN ESTABLISHED BASED ON THE FOURTH UNIVERSAL DEFINITIONS OF MYOCARDIAL INFARCTION. THE UPPER REFERENCE LIMIT (URL) OF TROPONIN, DEFINED THE 99TH PERCENTILE OF cTnI DISTRIBUTION IN A REFERENCE POPULATION, HAS BEEN CONFIRMED THE DECISION THRESHOLD FOR [place] DIAGNOSIS. Performed By: #### C MP, HSTROPN #### [facility] [address] [address] [address] Patrica Nathan XR CHEST 1 Von 09-14-2022 XR CHEST 1 V EXAM: XR CHEST 1 V HISTORY: Near syncope COMPARISON: None. TECHNIQUE: Single view of the chest FINDINGS: Heart size normal. No focal consolidation, pleural effusion, pulmonary congestion or pneumothorax. IMPRESSION: No acute findings. Electronically authenticated by: PASTORA DREW Date: 2022-09-14 10:01 Normal [facility] Alex 08-27-2022 L ------- Specimen: [id number] Received: 08/27/22 Status: MARIAH Gilmore Num: [id number] Spec Type: Surgical Subm Dr: Maryjane Christensen MD Tissues: A Gastric Biopsy (GASTRIC BX) B Colon Biopsy (ASCENDING POLYP) C Colon Biopsy (SIGMIOD POLYP) Procedures: HE/6, Gross/Micro L4/3, H PYLORI Age/ Patient Sex Location Account Attending Physician Yonatan Patel 77/M [id number] Alek Oliva MD SPEC NUM: [id number] RECD: 08/27/22 STATUS: MARIAH GILMORE NUM: [id number] EVE: 08/27/22- [facility] DR: Maryjane Christensen MD ENTERED: 08/27/22 [facility] DR: BRITTANIE TYPE: Surgical DEPT: S ORDERED: HE/6, Gross/Micro L4/3, H PYLORI ORDERED: HE/6, Gross/Micro L4/3, H PYLORI Supplemental Report Addendum 1 Entered: 08/28/22792 A. Immunohistochemical stain for Helicobacter Pylori is POSITIVE. Addendum Signed (signature on file) Aaliyah Beard MD 08/28/22 1472 Pathological Diagnosis A. Stomach, gastric, biopsy: - Moderate chronic active gastritis. - Positive for Helicobacter pylori like organisms on H E stain. COMMENT: Confirmatory Helicobacter pylori immunohistochemical stain is being performed, an addendum report will be issued on completion. B. Colon, ascending, polypectomy: - Tubular adenoma. Specimen: [id number] Received: 08/27/22 Status: MARIAH [place]urnraven Num: [id number] Spec Type: Surgical Subm Dr: Maryjane Christensen MD Tissues: A Gastric Biopsy (GASTRIC BX) B Colon Biopsy (ASCENDING POLYP) C Colon Biopsy (SIGMIOD POLYP) Procedures: HE/6, Gross/Micro L4/3, H PYLORI Patient: Yonatan Patel [id number] (Continued) Specimen: Received: 08/27/22 (Continued) Pathological Diagnosis (Continued) Signed (signature on file) Aaliyah Beard MD 08/28/22 1236 Specimen: Received: 08/27/22 Status: MARIAH Gilmore Num: [id number] Spec Type: Surgical Subm Dr: Maryjane Christensen MD Tissues: A Gastric Biopsy (GASTRIC BX) B Colon Biopsy (ASCENDING POLYP) C Colon Biopsy (SIGMIOD POLYP) Procedures: HE/6, Gross/Micro L4/3, H PYLORI Patient: Yonatan Patel [id number] (Continued) Specimen: Received: 08/27/22 (Continued) Pathological Diagnosis [...] support the above pathologic diagnosis. CPT Codes 90861?3 Specimen: [id number] Received: 08/27/22 Status: [facility] Num: [id number] Spec Type: Surgical Subm Dr: Maryjane Christensen MD Tissues: A Gastric Biopsy (GASTRIC BX) B Colon Biopsy (ASCENDING POLYP) C Colon Biopsy (SIGMIOD POLYP) Procedures: HE/6, Gross/Micro L4/3, H PYLORI --------- (more content not included)... [facility] MRI BRAIN WO CONon 2 MRI BRAIN [...] by: BERHANE HERNANDEZ Date: 2022-07-29 08:42 Normal [facility] LIPID PROFILEon 07-28-2022 CHOL-HDL RATIO NORM SEE BELOW Normal [facility] Comment on above: Result Comment: 3.3 - 4.4 LOW RISK 4.4 - 7.1 AVERAGE RISK 7.1 - 11.0 MODERATE RISK >11.0 HIGH RISK Performed By: #### C JV HSTROPN #### [facility] [address] [address] [address] Patrica Nathan Cholesterol [Mass/Vol] 97 mg/dL Normal <=200 [facility] Comment on above: Performed By: #### C JV HSTROPN #### [facility] [address] [address] [address] Patrica Nathan Cholesterol in HDL [Mass/Vol] 40 mg/dL Normal 40-60 [facility] Comment on above: Performed By: #### C JV, HSTROPN #### [facility] [address] [place], [place] [address] Dr. Patrica Nathan Cholesterol in LDL [Mass/Vol] 31.8 mg/dL Normal [facility] Comment on above: Performed By: #### C MP, HSTROPN #### [facility] [address] [place] [address] Dr. Patrica Nathan Cholesterol.total/Chol esterol in HDL [Mass ratio] 2.4 {ratio} Normal [facility] Comment on above: Performed By: #### C MP, HSTROPN #### [facility] [address] [place] [address] Dr. Patrica Nathan HDL NORMAL > or = 60 mg/dl - LO W CARDIOVASCULAR RISK <40 mg/dl - HIGH CARDIOVASCULAR RISK Normal [facility] Comment on above: Performed By: #### C JV, HSTROPN #### [facility] [address] [place] [address] Dr. Patrica Nathan LDL CALC NORMAL SEE BELOW Normal [facility] Comment on above: Result Comment: <100 mg/dl OPTIMAL 100 - 129 mg/dl NEAR OR ABOVE OPTIMAL 130 - 159 mg/dl BORDERLINE HIGH 160 - 189 mg/dl HIGH >190 mg/dl VERY HIGH Performed By: #### C JV, HSTROPN #### [facility] [address] [place] [address] Dr. Patrica Nathan Triglyceride [Mass/Vol] 126 mg/dL Normal <=150 [facility] Comment on above: Performed By: #### C JV, HSTROPN #### [facility] [address] [place] [address] Dr. Patrica Nathan VLDL CALC 25.2 mg/dL Normal [facility] Comment on above: Performed By: #### C JV, HSTROPN #### [facility] [address] [place] [address] Dr. Patrica Nathan CBC AUTO DIFFon 07-01-2022 BASO # 0.0 103/ul Normal 0.0-0.1 [facility] Comment on above: Performed By: #### C BC #### [facility] [address] [place] [address] Dr. Patrica Nathan Basophils/100 WBC (Bld) 0.5 % Normal 0.2-2.0 [facility] Comment on above: Performed By: #### C BC #### [facility] [address] [place] [address] Dr. Patrica Nathan EO # 0.1 103/ul Normal 0.0-0.7 [facility] Comment on above: Performed By: #### C BC #### [facility] [address] [place] [address] Dr. Patrica Nathan Eosinophils/100 WBC (Bld) 2.2 % Normal 0.9-7.0 [facility] Comment on above: Performed By: #### C BC #### [facility] [address] [place] [address] Dr. Patrica Nathan Erythrocyte distribution width (RBC) [Ratio] 14.3 % Normal 11.0-15.0 [facility] Comment on above: Performed By: #### C BC #### [facility] [address] [place] [address] Dr. Patrica Nathan Hematocrit (Bld) [Volume fraction] 45.8 % Normal 42.0-54.0 [facility] Comment on above: Performed By: #### C BC #### [facility] [address] [place] [address] Dr. Patrica Nathan Hemoglobin (Bld) [Mass/Vol] 15.1 g/dL Normal 14.0-18.0 [facility] Comment on above: Performed By: #### C BC #### [facility] [address] [place] [address] Dr. Patrica Nathan IG # 0.01 10e3/ul Normal 0.00-0.03 [facility] Comment on above: Performed By: #### C BC #### [facility] [address] [place] [address] Dr. Patrica Nathan IG % 0.2 % Normal 0.0-0.5 [facility] Comment on above: Performed By: #### C BC #### [facility] [address] [place] [address] Dr. Patrica Nathan LYMPH # 1.4 103/ul Normal 1.2-3.8 [facility] Comment on above: Performed By: #### C BC #### [facility] [address] [place] [address] Dr. Patrica Nathan Lymphocytes/100 WBC (Bld) 24.0 % Normal 20.5-60.0 [facility] Comment on above: Performed By: #### C BC #### [facility] [address] [place] [address] Dr. Patrica Nathan MANUAL DIFF REQ NO Normal [facility] Comment on above: Performed By: #### C BC #### [facility] [address] [place] [address] Dr. Patrica Nathan MCH (RBC) [Entitic mass] 29.4 pg Normal 25.9-34.0 [facility] Comment on above: Performed By: #### C BC #### [facility] [address] [place] [address] Dr. Patrica Nathan MCHC (RBC) [Mass/Vol] 33.0 g/dL Normal 29.9-35.2 [facility] Comment on above: Performed By: #### C BC #### [facility] [address] [place] [address] Dr. Patrica Nathan MCV (RBC) [Entitic vol] 89.3 fL Normal 80.0-94.0 [facility] Comment on above: Performed By: #### C BC #### [facility] [address] [place] [address] Dr. Patrica Nathan MONO # 0.6 103/ul Normal 0.3-0.8 [facility] Comment on above: Performed By: #### C BC #### [facility] [address] [place] [address] Dr. Patrica Nathan Monocytes/100 WBC (Bld) 10.8 % Normal 1.7-12.0 [facility] Comment on above: Performed By: #### C BC #### [facility] [address] [place] [address] Dr. Patrica Nathan NEUT # 3.7 103/ul Normal 1.4-6.5 [facility] Comment on above: Performed By: #### C BC #### [facility] [address] [place] [address] Dr. Patrica Nathan Neutrophils/100 WBC (Bld) 62.3 % Normal 43.0-75.0 [facility] Comment on above: Performed By: #### C BC #### [facility] [address] [place] [address] Dr. Patrica Nathan Platelet mean volume (Bld) [Entitic vol] 9.7 fL Normal 9.5-13.5 [facility] Comment on above: Performed By: #### C BC #### [facility] [address] [place] [address] Dr. Partica Nathan PLT 192 103/ul Normal 150-450 [facility] Comment on above: Performed By: #### C BC #### [facility] [address] [place] [address] Dr. Patrica Nathan RBC 5.13 106/ul Normal 4.70-6.10 [facility] Comment on above: Performed By: #### C BC #### [facility] [address] [place] [address] Dr. Patrica Nathan WBC 6.0 103/ul Normal 4.0-11.0 [facility] Comment on above: Performed By: #### C BC #### [facility] [address] [place] [address] CHEST WO CONon [...] EVGENY MCCLAIN Date: 2022-07-01 07:16 Normal [facility] PROF 14(COMP METB)on 07-01- 022 Albumin [Mass/Vol] 4.0 g/dL Normal 3.4-5.0 [facility] Comment on above: Performed By: #### C MP, HSTROPN #### [facility] [address] [place] [address] Dr. Patrica Nathan Albumin/Globulin [Mass ratio] 1.2 {ratio} Normal [facility] Comment on above: Performed By: #### C MP, HSTROPN #### [facility] [address] [place] [address] Dr. Patrica Nathan ALP [Catalytic activity/Vol] 80 U/L Normal 46-116 [facility] Comment on above: Performed By: #### C MP, HSTROPN #### [facility] [address] [place] [address] Dr. Patrica Nathan ALT [Catalytic activity/Vol] 30 U/L Normal 16-63 [facility] Comment on above: Performed By: #### C MP, HSTROPN #### [facility] [address] [place] [address] Dr. Patrica Nathan Anion gap [Moles/Vol] 8.5 mmol/L Normal [facility] Comment on above: Performed By: #### C MP, HSTROPN #### [facility] [address] [address] [address] Patrica Nathan AST [Catalytic activity/Vol] 26 U/L Normal 15-37 [facility] Comment on above: Performed By: #### C MP, HSTROPN #### [facility] [address] [place] [address] Dr. Patrica Nathan Bilirubin [Mass/Vol] 1.4 mg/dL Critically high 0.2-1.0 [facility] Comment on above: Performed By: #### C MP, HSTROPN #### [facility] [address] [address] [address] Patrica Nathan Calcium [Mass/Vol] 9.8 mg/dL Normal 8.5-10.1 [facility] Comment on above: Performed By: #### C MP, HSTROPN #### [facility] [address] [place] [address] Dr. Patrica Nathan Chloride [Moles/Vol] 104 mmol/L Normal 98-107 [facility] Comment on above: Performed By: #### C MP, HSTROPN #### [facility] [address] [place] [address] Dr. Patrica Nathan CO2 [Moles/Vol] 30.8 mmol/L Normal 21.0-32.0 [facility] Comment on above: Performed By: #### C MP, HSTROPN #### [facility] [address] [place] [address] Dr. Patrica Nathan Creatinine [Mass/Vol] 0.97 mg/dL Normal 0.70-1.30 [facility] Comment on above: Performed By: #### C MP, HSTROPN #### [facility] [address] [place] [address] Dr. Patrica Nathan EGFR-AF WALLISIAN >60 Normal >=60 [facility] Comment on above: Performed By: #### C MP, HSTROPN #### [facility] [address] [place] [address] Dr. Patrica Nathan EGFR-NON AF WALLISIAN >60 Normal >=60 [facility] Comment on above: Performed By: #### C MP, HSTROPN #### [facility] [address] [place] [address] Dr. Patrica Nathan Globulin (S) [Mass/Vol] 3.4 g/dL Normal [facility] Comment on above: Performed By: #### C MP, HSTROPN #### [facility] [address] [place] [address] Dr. Patrica Nathan Glucose [Mass/Vol] 110 mg/dL Critically high 74-106 [facility] Comment on above: Performed By: #### C MP, HSTROPN #### [facility] [address] [address] [address] Patrica Nathan Potassium [Moles/Vol] 4.3 mmol/L Normal 3.5-5.1 [facility] Comment on above: Performed By: #### C MP, HSTROPN #### [facility] [address] [place] [address] Dr. Patrica Nathan Protein [Mass/Vol] 7.4 g/dL Normal 6.4-8.2 [facility] Comment on above: Performed By: #### C JV, HSTROPN #### [facility] [address] [place] [address] Dr. Patrica Nathan Sodium [Moles/Vol] 139 mmol/L Normal 136-145 [facility] Comment on above: Performed By: #### C JV, HSTROPN #### [facility] [address] [place] [address] Dr. Patrica Nathan Urea nitrogen [Mass/Vol] 15.0 mg/dL Normal 7.0-18.0 [facility] Comment on above: Performed By: #### C JV, HSTROPN #### [facility] [address] [place] [address] Dr. Patrica Nahtan Urea nitrogen/Creatinine [Mass ratio] 15.5 mg/mg Normal [facility] Comment on above: Performed By: #### C JV, HSTROPN #### [facility] [address] [place] [address] Dr. Patrica Nathan PROTIMEon 07-01-2022 INR Coag (PPP) [Relative time] 0.95 {INR} Normal [facility] Comment on above: Performed By: #### P T, PTT #### [facility] [address] [place] [address] Dr. Patrica Nathan INR GUIDELINES SEE BELOW Normal [facility] Comment on above: Result Comment: ODALIS RED INR: 2.0 - 3.0 CONDITIONS NOT LISTED BELOW 2.5 - 3.5 FOR PROSTHETIC HEART VALVE REPLACEMENT 2.5 - 3.5 RECURRENT THROMBOSIS Performed By: #### P T, PTT #### [facility] [address] [place], [place] [address] Dr. Patrica Nathan PT Coag (PPP) [Time] 10.3 s Normal 9.0-11.6 [facility] Comment on above: Performed By: #### P T, PTT #### [facility] [address] [place], [place] [address] Dr. Patrica Nathan PTTon 07-01-2022 aPTT Coag (Bld) [Time] 27.1 s Normal 22.3-36.2 [facility] Comment on above: Performed By: #### C MP, HSTROPN #### [facility] [address] [place], [place] [address] Dr. Patrica Nathan XR CHEST 1 Von [...] ANGELY REYNOLDS Date: 2022-07-01 06:33 Normal [facility] CT CHEST WO CONon 06-29-2022 CT CHEST [...] by: BERHANE HERNANDEZ Date: 2022-06-29 16:01 Normal [facility] XR RIBS RT PA Estella 2 XR [...] by: FABRICE BRETT Date: 2022-06-29 15:08 Normal [facility] CBC AUTO DIFFon 05-02-2022 BASO # 0.1 103/ul Normal 0.0-0.1 [facility] Comment on above: Performed By: #### C BC #### [facility] [address] [address] [address] Patrica Nathan Basophils/100 WBC (Bld) 0.8 % Normal 0.2-2.0 [facility] Comment on above: Performed By: #### C BC #### [facility] [address] [place] [address] Dr. Patrica Nathan EO # 0.1 103/ul Normal 0.0-0.7 [facility] Comment on above: Performed By: #### C BC #### [facility] [address] [place] [address] Dr. Patrica Nathan Eosinophils/100 WBC (Bld) 1.7 % Normal 0.9-7.0 [facility] Comment on above: Performed By: #### C BC #### [facility] [address] [place] [address] Dr. Patrica Nathan Erythrocyte distribution width (RBC) [Ratio] 14.5 % Normal 11.0-15.0 [facility] Comment on above: Performed By: #### C BC #### [facility] [address] [place] [address] Dr. Patrica Nathan Hematocrit (Bld) [Volume fraction] 45.6 % Normal 42.0-54.0 [facility] Comment on above: Performed By: #### C BC #### [facility] [address] [place] [address] Dr. Patrica Nathan Hemoglobin (Bld) [Mass/Vol] 15.3 g/dL Normal 14.0-18.0 [facility] Comment on above: Performed By: #### C BC #### [facility] [address] [place] [address] Dr. Patrica Nathan IG # 0.02 10e3/ul Normal 0.00-0.03 [facility] Comment on above: Performed By: #### C BC #### [facility] [address] [place] [address] Dr. Patrica Nathan IG % 0.3 % Normal 0.0-0.5 [facility] Comment on above: Performed By: #### C BC #### [facility] [address] [place] [address] Dr. Patrica Nathan LYMPH # 1.6 103/ul Normal 1.2-3.8 [facility] Comment on above: Performed By: #### C BC #### [facility] [address] [place] [address] Dr. Patrica Nathan Lymphocytes/100 WBC (Bld) 27.0 % Normal 20.5-60.0 [facility] Comment on above: Performed By: #### C BC #### [facility] [address] [place] [address] Dr. Patrica Nathan MANUAL DIFF REQ NO Normal [facility] Comment on above: Performed By: #### C BC #### [facility] [address] [place] [address] Dr. Patrica Nathan MCH (RBC) [Entitic mass] 29.9 pg Normal 25.9-34.0 [facility] Comment on above: Performed By: #### C BC #### [facility] [address] [place] [address] Dr. Patrica Nathan MCHC (RBC) [Mass/Vol] 33.6 g/dL Normal 29.9-35.2 [facility] Comment on above: Performed By: #### C BC #### [facility] [address] [place] [address] Dr. Patrica Nathan MCV (RBC) [Entitic vol] 89.1 fL Normal 80.0-94.0 [facility] Comment on above: Performed By: #### C BC #### [facility] [address] [place] [address] Dr. Patrica Nathan MONO # 0.6 103/ul Normal 0.3-0.8 [facility] Comment on above: Performed By: #### C BC #### [facility] [address] [place] [address] Dr. Patrica Nathan Monocytes/100 WBC (Bld) 9.8 % Normal 1.7-12.0 [facility] Comment on above: Performed By: #### C BC #### [facility] [address] [place] [address] Dr. Patrica Nathan NEUT # 3.6 103/ul Normal 1.4-6.5 [facility] Comment on above: Performed By: #### C BC #### [facility] [address] [address] [address] Patrica Nathan Neutrophils/100 WBC (Bld) 60.4 % Normal 43.0-75.0 [facility] Comment on above: Performed By: #### C BC #### [facility] [address] [address] [address] Patrica Nathan Platelet mean volume (Bld) [Entitic vol] 9.3 fL Critically low 9.5-13.5 [facility] Comment on above: Performed By: #### C BC #### [facility] [address] [address] [address] Patrica Nathan PLT 183 103/ul Normal 150-450 [facility] Comment on above: Performed By: #### C BC #### [facility] [address] [address] [address] Patrica Nathan RBC 5.12 106/ul Normal 4.70-6.10 [facility] Comment on above: Performed By: #### C BC #### [facility] [id number] Patrica Nathan WBC 6.0 103/ul Normal 4.0-11.0 [facility] Comment on above: Performed By: #### C BC #### [facility] [address] [place] [address] ABD/PELV WO W [...] EVGENY MCCLAIN Date: 2022-05-02 10:56 Normal [facility] PROF 14(COMP METB)on 022 Albumin [Mass/Vol] 4.1 g/dL Normal 3.4-5.0 [facility] Comment on above: Performed By: #### C JV, HSTROPN #### [facility] [address] [address] [address] Patrica Nathan Albumin/Globulin [Mass ratio] 1.4 {ratio} Normal [facility] Comment on above: Performed By: #### C JV, HSTROPN #### [facility] [address] [address] [address] Patrica Nathan ALP [Catalytic activity/Vol] 71 U/L Normal 46-116 [facility] Comment on above: Performed By: #### C JV, HSTROPN #### [facility] [address] [address] [address] Patrica Nathan ALT [Catalytic activity/Vol] 48 U/L Normal 16-63 [facility] Comment on above: Performed By: #### C JV, HSTROPN #### [facility] [address] [address] [address] Patrica Nathan Anion gap [Moles/Vol] 8.1 mmol/L Normal [facility] Comment on above: Performed By: #### C MP, HSTROPN #### [facility] [address] [address] [address] Patrica Nathan AST [Catalytic activity/Vol] 31 U/L Normal 15-37 [facility] Comment on above: Performed By: #### C MP, HSTROPN #### [facility] [address] [place] [address] Dr. Patrica Nathan Bilirubin [Mass/Vol] 1.6 mg/dL Critically high 0.2-1.0 [facility] Comment on above: Performed By: #### C MP, HSTROPN #### [facility] [address] [place] [address] Dr. Patrica Nathan Calcium [Mass/Vol] 9.4 mg/dL Normal 8.5-10.1 [facility] Comment on above: Performed By: #### C MP, HSTROPN #### [facility] [address] [place] [address] Dr. Patrica Nathan Chloride [Moles/Vol] 105 mmol/L Normal 98-107 [facility] Comment on above: Performed By: #### C MP, HSTROPN #### [facility] [address] [place] [address] Dr. Patrica Nathan CO2 [Moles/Vol] 29.0 mmol/L Normal 21.0-32.0 [facility] Comment on above: Performed By: #### C MP, HSTROPN #### [facility] [address] [place] [address] Dr. Patrica Nathan Creatinine [Mass/Vol] 1.01 mg/dL Normal 0.70-1.30 [facility] Comment on above: Performed By: #### C MP, HSTROPN #### [facility] [address] [place] [address] Dr. Patrica Nathan EGFR-AF WALLISIAN >60 Normal >=60 [facility] Comment on above: Performed By: #### C MP, HSTROPN #### [facility] [address] [place] [address] Dr. Patrica Nathan EGFR-NON AF WALLISIAN >60 Normal >=60 [facility] Comment on above: Performed By: #### C JV, HSTROPN #### [facility] [address] [place] [address] Dr. Patrica Nathan Globulin (S) [Mass/Vol] 2.9 g/dL Normal [facility] Comment on above: Performed By: #### C MP, HSTROPN #### [facility] [address] [place] [address] Dr. Patrica Nathan Glucose [Mass/Vol] 106 mg/dL Normal 74-106 [facility] Comment on above: Performed By: #### C JV, HSTROPN #### [facility] [address] [place] [address] Dr. Patrica Nathan Potassium [Moles/Vol] 4.1 mmol/L Normal 3.5-5.1 [facility] Comment on above: Performed By: #### C JV, HSTROPN #### [facility] [address] [place] [address] Dr. Patrica Nathan Protein [Mass/Vol] 7.0 g/dL Normal 6.4-8.2 [facility] Comment on above: Performed By: #### C JV, HSTROPN #### [facility] [address] [place] [address] Dr. Patrica Nathan Sodium [Moles/Vol] 138 mmol/L Normal 136-145 [facility] Comment on above: Performed By: #### C JV, HSTROPN #### [facility] [address] [place] [address] Dr. Patrica Nathan Urea nitrogen [Mass/Vol] 18.0 mg/dL Normal 7.0-18.0 [facility] Comment on above: Performed By: #### C JV, HSTROPN #### [facility] [address] [place] [address] Dr. Patrica Nathan Urea nitrogen/Creatinine [Mass ratio] 17.8 mg/mg Normal [facility] Comment on above: Performed By: #### C JV, HSTROPN #### [facility] [address], [place] [address] Dr. Patrica Nathan TSHon 05-02-2022 TSH 2.409 uIU/mL Normal 0.358-3.74 0 [facility] Comment on above: Performed By: #### T SH #### [facility] [address] [place] [address] [id number] [address] Patrica Nathan XR CHEST 2 Von [...] EVGENY MCCLAIN Date: 2022-05-02 07:44 Normal [facility] Covid-19 PCR (CVDTB)on 01-16 SARS-CoV-2 (COVID-19) RNA MARIANNE+probe Ql (Unsp spec) Not detected Normal NOT DETECTED [facility] Comment on above: Result Comment: This test is not yet approved or cleared by the [place] FDA. When there are no FDA-approved or cleared tests available, and other criteria are met, FDA can make tests available under an emergency access mechanism called an Emergency Use Authorization (EUA). The EUA for this test is supported by the [place] of Health and Human Service's (HHS's) declaration [...] SARS-CoV-2. Performed By: #### C VDTBH #### [facility] [address] [address] [address] Patrica Nathan Vital Signs Date Time Vital Sign Value Performing Clinician Facility 07-28-2023 13:13-0500 Blood Pressure Location [facility] Haha Pinche [facility] 07-28-2023 13:13-0500 Diastolic blood pressure 72 mm[Hg] Angely NILL [facility] 07-28-2023 13:13-0500 Heart rate 72 /min Angely NILL [facility] 07-28-2023 13:13-0500 Respiratory rate 16 /min Angely NILL [facility] 07-28-2023 13:13-0500 Systolic blood pressure 118 mm[Hg] Angely NILL [facility] 07-01-2023 10:15-0500 Body height 187.96 cm [facility] Other [facility] Other 07-01-2023 10:15-0500 Body mass index (BMI) [Ratio] 23.13 kg/m2 [facility] Other [facility] Other 07-01-2023 10:15-0500 Body weight 81.74 kg [facility] Other [facility] Other 07-01-2023 10:15-0500 Diastolic blood pressure 70 mm[Hg] [facility] Other [facility] Other 07-01-2023 10:15-0500 Respiratory rate 12 /min [facility] Other [facility] Other 07-01-2023 10:15-0500 Systolic blood pressure 135 mm[Hg] [facility] Other [facility] Other 06-20-2023 02:33-0400 Diastolic blood pressure 74 mm[Hg] DO [facility] Work Phone: [facility] 06-20-2023 02:33-0400 Heart rate 78 /min DO [facility] Work Phone: [facility] 06-20-2023 02:33-0400 Respiratory rate 16 /min DO [facility] Work Phone: [facility] 06-20-2023 02:33-0400 SaO2% (BldA) [Mass fraction] 96 % DO [facility] Work Phone: [facility] 06-20-2023 02:33-0400 Systolic blood pressure 158 mm[Hg] DO [facility] Work Phone: [facility] 06-19-2023 20:47-0400 Body height 187.96 cm DO [facility] Work Phone: [facility] 06-19-2023 20:47-0400 Body temperature 97.9 [degF] DO [facility] Work Phone: [facility] 06-19-2023 20:47-0400 Body weight 80.3 kg DO [facility] Work Phone: [facility] 06-17-2023 15:45-0400 Body height 187.96 cm [facility] Other [facility] Other 06-17-2023 15:45-0400 Body mass index (BMI) [Ratio] 23.65 kg/m2 [facility] Other [facility] Other 06-17-2023 15:45-0400 Body temperature 97.3 [degF] [facility] Other [facility] Other 06-17-2023 15:45-0400 Body weight 83.55 kg [facility] Other [facility] Other 06-17-2023 15:45-0400 Diastolic blood pressure 57 mm[Hg] [facility] Other [facility] Other 06-17-2023 15:45-0400 Respiratory rate 12 /min [facility] Other [facility] Other 06-17-2023 15:45-0400 Systolic blood pressure 128 mm[Hg] [facility] Other [facility] Other 05-20-2023 08:45-0400 Body height 187.96 cm [facility] Other [facility] Other 05-20-2023 08:45-0400 Body mass index (BMI) [Ratio] 23.62 kg/m2 [facility] Other [facility] Other 05-20-2023 08:45-0400 Body weight 83.46 kg [facility] Other [facility] Other 05-20-2023 08:45-0400 Diastolic blood pressure 82 mm[Hg] [facility] Other [facility] Other 05-20-2023 08:45-0400 Respiratory rate 12 /min [facility] Other [facility] Other 05-20-2023 08:45-0400 Systolic blood pressure 121 mm[Hg] [facility] Other [facility] Other 04-21-2023 11:30-0400 Body height 187.96 cm [facility] Other [facility] Other 04-21-2023 11:30-0400 Body mass index (BMI) [Ratio] 23.34 kg/m2 [facility] Other [facility] Other 04-21-2023 11:30-0400 Body weight 82.46 kg [facility] Other [facility] Other 04-21-2023 11:30-0400 Diastolic blood pressure 65 mm[Hg] [facility] Other [facility] Other 04-21-2023 11:30-0400 Respiratory rate 12 /min [facility] Other [facility] Other 04-21-2023 11:30-0400 Systolic blood pressure 165 mm[Hg] [facility] Other [facility] Other 03-01-2023 08:00-0400 Diastolic blood pressure 82 mm[Hg] DO [facility] Work Phone: [facility] 03-01-2023 08:00-0400 Heart rate 62 /min DO [facility] Work Phone: [facility] 03-01-2023 08:00-0400 Respiratory rate 16 /min DO [facility] Work Phone: [facility] 03-01-2023 08:00-0400 SaO2% (BldA) [Mass fraction] 96 % DO [facility] Work Phone: [facility] 03-01-2023 08:00-0400 Systolic blood pressure 146 mm[Hg] DO [facility] Work Phone: [facility] 03-01-2023 06:58-0400 Body height 187.96 cm DO [facility] Work Phone: [facility] 03-01-2023 06:58-0400 Body weight 84.8 kg DO [facility] Work Phone: [facility] 02-24-2023 08:30-0400 Body height 187.96 cm [facility] Other [facility] Other 02-24-2023 08:30-0400 Body mass index (BMI) [Ratio] 24.21 kg/m2 [facility] Other [facility] Other 02-24-2023 08:30-0400 Body weight 85.55 kg [facility] Other [facility] Other 02-24-2023 08:30-0400 Diastolic blood pressure 67 mm[Hg] [facility] Other [facility] Other 02-24-2023 08:30-0400 Respiratory rate 12 /min [facility] Other [facility] Other 02-24-2023 08:30-0400 Systolic blood pressure 112 mm[Hg] [facility] Other [facility] Other 11-21-2022 11:45-0400 Body height 187.96 cm [facility] Other [facility] Other 11-21-2022 11:45-0400 Body mass index (BMI) [Ratio] 24.98 kg/m2 [facility] Other [facility] Other 11-21-2022 11:45-0400 Body weight 88.27 kg [facility] Other [facility] Other 11-21-2022 11:45-0400 Diastolic blood pressure 73 mm[Hg] [facility] Other [facility] Other 11-21-2022 11:45-0400 Respiratory rate 12 /min [facility] Other [facility] Other 11-21-2022 11:45-0400 Systolic blood pressure 147 mm[Hg] [facility] Other [facility] Other 10-22-2022 08:30-0500 Body height 187.96 cm [facility] Other [facility] Other 10-22-2022 08:30-0500 Body mass index (BMI) [Ratio] 24.73 kg/m2 [facility] Other [facility] Other 10-22-2022 08:30-0500 Body weight 87.36 kg [facility] Other [facility] Other 10-22-2022 08:30-0500 Diastolic blood pressure 64 mm[Hg] [facility] Other [facility] Other 10-22-2022 08:30-0500 Respiratory rate 12 /min [facility] Other [facility] Other 10-22-2022 08:30-0500 Systolic blood pressure 118 mm[Hg] [facility] Other [facility] Other 10-07-2022 09:45-0500 Body height 187.96 cm [facility] Other [facility] Other 10-07-2022 09:45-0500 Body mass index (BMI) [Ratio] 24.31 kg/m2 [facility] Other [facility] Other 10-07-2022 09:45-0500 Body weight 85.91 kg [facility] Other [facility] Other 10-07-2022 09:45-0500 Diastolic blood pressure 70 mm[Hg] [facility] Other [facility] Other 10-07-2022 09:45-0500 Respiratory rate 12 /min [facility] Other [facility] Other 10-07-2022 09:45-0500 Systolic blood pressure 122 mm[Hg] [facility] Other [facility] Other 08-27-2022 10:48-0500 Diastolic blood pressure 82 mm[Hg] DO [facility] Work Phone: [facility] 08-27-2022 10:48-0500 Heart rate 64 /min DO [facility] Work Phone: [facility] 08-27-2022 10:48-0500 Respiratory rate 16 /min DO [facility] Work Phone: [facility] 08-27-2022 10:48-0500 SaO2% (BldA) [Mass fraction] 96 % DO [facility] Work Phone: [facility] 08-27-2022 10:48-0500 Systolic blood pressure 146 mm[Hg] DO [facility] Work Phone: [facility] 08-27-2022 09:01-0500 Body height 187.96 cm DO [facility] Work Phone: [facility] 08-27-2022 09:01-0500 Body temperature 97.8 [degF] DO [facility] Work Phone: [facility] 08-27-2022 09:01-0500 Body weight 86.63 kg DO [facility] Nicholson Work Phone: [facility] Encounters Encounter Date Encounter Type Care Provider Facility Start: 07-28-2023 End: 07-29-2023 ambulatory Angely OCAMPO Facility: [facility] Start: 07-28-2023 End: 07-28-2023 Patient encounter procedure Angely OCAMPO General Surgery Nill/[facility] Start: 07-01-2023 End: 07-01-2023 ambulatory Cisco Nich[facility] Other [facility] Other Start: 07-01-2023 Transitional care manage srvc 14 day discharge [facility] Start: 06-26-2023 ambulatory Angely OCAMPO Facility:[facility] Start: 06-24-2023 End: 06-24-2023 ambulatory Cisco Nicholson Other [facility] Other Start: 06-24-2023 Telephone encounter Cisco Nicholson [facility] Start: 06-20-2023 End: 06-22-2023 Evaluation and management of inpatient Berhane Jp Facility:[facility] Start: 06-20-2023 Evaluation and management of inpatient DO Cisco Nicholson Work Phone: [facility] Work Phone: Start: 06-20-2023 observation encounter DO Shaji Nicholson Work Phone: [facility] Work Phone: Start: 06-19-2023 End: 06-19-2023 ambulatory Cisco Nicholson Other [facility] Other Start: 06-19-2023 Telephone encounter Cisco Nicholson [facility] Start: 06-18-2023 End: 06-18-2023 ambulatory Cisco Nicholson Other [facility] Other Start: 06-18-2023 Telephone encounter Cisco Nicholson [facility] Start: 06-17-2023 End: 06-17-2023 ambulatory Cisco Nicholson Other [facility] Other Start: 06-17-2023 Office outpatient vi sit 15 minutes Cisco Nicholson [facility] Start: 06-17-2023 Telephone encounter Cisco Ball [facility] Start: 06-02-2023 End: 06-02-2023 ambulatory Cisco Ball Other [facility] Other Start: 06-02-2023 Telephone encounter Cisco Ball [facility] Start: 05-20-2023 End: 05-20-2023 ambulatory Cisco Ball Other [facility] Other Start: 05-20-2023 Office outpatient vi sit 25 minutes Cisco Nicholson [facility] Start: 05-11-2023 End: 05-11-2023 ambulatory Cisco Nicholson Other [facility] Other Start: 05-11-2023 Telephone encounter Cisco Nicholson [facility] Start: 04-27-2023 End: 04-27-2023 ambulatory Cisco Nicholson Other [facility] Other Start: 04-27-2023 Telephone encounter Cisco Nicholson [facility] Start: 04-23-2023 End: 04-23-2023 ambulatory Cisco Nicholson Other [facility] Other Start: 04-23-2023 Telephone encounter Cisco Nicholson [facility] Start: 04-21-2023 End: 04-21-2023 ambulatory Cisco Nicholson Other [facility] Other Start: 04-21-2023 Office outpatient vi sit 25 minutes Cisco Nicholson [facility] Start: 03-16-2023 End: 03-16-2023 ambulatory Cisco Nicholson Other [facility] Other Start: 03-16-2023 Telephone encounter Cisco Nicholson [facility] Start: 03-04-2023 Telephone encounter Cisco Abbe [facility] Start: 03-04-2023 End: 03-04-[address] Cisco Nicholson [facility] Other Start: 03-03-2023 End: 03-03-2023 ambulatory Cisco Abbe Other [facility] Other Start: 03-03-2023 Telephone encounter Cisco Abbe [facility] Start: 03-01-2023 End: 03-02-[address] Cisco Nicholson Facility:[id number] Start: 03-01-2023 Evaluation and management of inpatient DO Cisco Nicholson Work Phone: [facility] [place] Work Phone: Start: 03-01-2023 observation encounter DO Shaji lorena Ball Work Phone: [facility] Work Phone: Start: 02-24-2023 End: 02-24-2023 ambulatory Cisco Ball Other [facility] Other Start: 02-24-2023 Office outpatient vi sit 25 minutes Cisco Ball [facility] Start: 01-20-2023 End: 01-20-2023 ambulatory Cisco Ball Other [facility] Other Start: 01-20-2023 Telephone encounter Cisco Abbe [facility] Start: 11-26-2022 End: 11-26-2022 ambulatory [facility] Start: 11-21-2022 End: 11-21-2022 ambulatory Cisco Ball Other [facility] Other Start: 11-21-2022 Office outpatient vi sit 15 minutes Cisco Ball [facility] Start: 10-22-2022 End: 10-22-2022 ambulatory Cisco Ball Other [facility] Other Start: 10-22-2022 Office outpatient vi sit 25 minutes Cisco Ball [facility] Start: 10-12-2022 End: 10-12-2022 ambulatory Cisco Ball Facility:[facility] Start: 10-12-2022 End: 10-12-2022 ambulatory DO Cisco Ball Work Phone: [facility] Work Phone: Start: 10-12-2022 End: 10-12-2022 Patient encounter procedure DO Cisco Ball Work Phone: [facility] [place] Work Phone: Start: 10-07-2022 End: 10-07-2022 ambulatory Cisco Ball Other [facility] Other Start: 10-07-2022 Office outpatient vi sit 15 minutes Cisco Nicholson [facility] Start: 09-14-2022 End: 09-14-[address] CISCO NICHOLSON Facility:[facility] Start: 09-08-2022 End: 09-08-2022 ambulatory Imad Asaad Other [facility] Other Start: 09-08-2022 Telephone encounter Imad Asaad [facility] Start: 09-05-2022 End: 09-05-2022 ambulatory Cisco Nicholson Other [facility] Other Start: 09-05-2022 Telephone encounter Cisco Nicholson [facility] Start: 09-03-2022 End: 09-03-2022 ambulatory Imad Asaad Other [facility] Other Start: 09-03-2022 Telephone encounter Imad Asaad [facility] Start: 09-01-2022 End: 09-01-2022 ambulatory Imad Asaad Other [facility] Other Start: 09-01-2022 Telephone encounter Imad Asaad [facility] Start: 08-27-2022 Telephone encounter Stalin [facility]AN[facility] Start: 08-27-2022 End: 08-27-2022 ambulatory Cisco Nicholson Facility:[facility] Start: 08-27-2022 End: 08-27-2022 Admission to same day surgery center DO Cisco Abbe Work Phone: [facility] Work Phone: Start: 08-27-2022 End: 08-27-2022 ambulatory DO Cisco Abbe Work Phone: [facility] Work Phone: Start: 08-22-2022 End: 08-22-2022 ambulatory Imad Asaad Other [facility] Other Start: 08-22-2022 Telephone encounter Immallory Christensen [facility] Start: 08-20-2022 End: 08-20-2022 ambulatory Cisco Nicholson Other [facility] Other Start: 08-20-2022 Telephone encounter Cisco Nicholson [facility] Start: 08-19-2022 End: 08-19-2022 ambulatory Cisco Nicholson Other [facility] Other Start: 08-19-2022 Telephone encounter Cisco Nicholson [facility] Start: 07-28-2022 End: 07-29-[address] CISCO [...] on above: Performed By: #### [facility] #### [facility] [address] [address] [address] Patrica Nathan Cardiac catheterization Renato OCAMPO History of operative procedure on shoulder Angely OCAMPO Comment on above: x3 Repair of right inguinal hernia Angely OCAMPO Plan of Treatment Date Care Activity Detail Author Start: 06-20-2023 Plain chest X-ray XR chest 2V* [facility] Start: 06-20-2023 XR Chest 2 Views [facility] Start: 06-20-2023 Hospital admission [facility] Start: 06-20-2023 [facility] Start: 06-20-2023 CT of head without contrast CT head/brain wo con [facility] Start: 06-20-2023 CT Unspecified body region WO contrast [facility] Start: 03-01-2023 Physical therapy procedure [facility] Start: 03-01-2023 Referral to occupati onal therapist [facility] Start: 03-01-2023 Referral to neurologist [facility] Start: 03-01-2023 Hospital admission [facility] Start: 03-01-2023 [facility] Start: 08-27-2022 [facility] Helicobacter pylori Ag [Presence] in Stool by Immunoassay [facility] Patient Education Colon Polypectomy (DC) [facility] Work Phone: Immunizations Immunization Date Immunization Notes Care Provider Fa cili 07-01-2023 influenza, high dose seasonal, preservative-free Cisco Nicholson Other [facility] Other 07-04-2022 SARS-CoV-2 (COVID-19 ) [id number] Angely OCAMPO [facility] [place] 06-05-2022 influenza virus vaccine, split virus (incl. purified surface antigen) Cisco Nicholson Other [facility] Other 03-28-2022 diphtheria, tetanus toxoids and acellular pertussis vaccine, unspecified formulation Cisco Abbe Other [facility] Other 11-16-2021 SARS-CoV-2 mRNA (mgqqpyirbum-uhpl-bfne ose) vaccine Angely [facility] 06-28-2021 influenza virus vaccine, split virus (incl. purified surface antigen) Cisco Nicholson Other [facility] Other 05-18-2021 SARS-CoV-2 (COVID-19 ) mRNA BNT-162b2 vax Angely [facility] Comment on above: Result Comment: 2022: [id number] 10-06-2020 SARS-CoV-2 (COVID-19 ) mRNA BNT-162b2 vax Angely [employer] Comment on above: Result Comment: 2022: [id number] 09-15-2020 COVID-19 Vaccine Pfizer - Documentation Purposes Only Cisco Nicholson Other [facility] Comment on above: Result Comment: 2022: [id number] 05-30-2020 influenza virus vaccine, split virus (incl. purified surface antigen) Cisco Nicholson Other [facility] Other 06-01-2019 influenza virus vaccine, split virus (incl. purified surface antigen) Cisco Nicholson Other [facility] Other 06-09-2018 influenza virus vaccine, split virus (incl. purified surface antigen) Cisco Nicholson Other [facility] Other 05-14-2017 tetanus and diphther ia toxoids, adsorbed, preservative free, for adult use (5 Lf of tetanus toxoid and 2 Lf of diphtheria toxoid) Cisco Nicholson Other [facility] Other 05-26-2016 influenza virus vaccine, split virus (incl. purified surface antigen) Cisco Nicholson Other [facility] Other 11-27-2015 pneumococcal conjuga te vaccine, 13 valent Cisco Nicholson Other [facility] Other 05-30-2015 influenza virus vaccine, split virus (incl. purified surface antigen) Cisco Nicholson Other [facility] Other 06-14-2013 pneumococcal polysaccharide vaccine, 23 valent Cisco Nicholson Other [facility] Other 05-23-2013 tetanus and diphther ia toxoids, adsorbed, preservative free, for adult use (5 Lf of tetanus toxoid and 2 Lf of diphtheria toxoid) Cisco Nicholson Other [facility] Other NEGATED: Highlighted row has not occurred!07-28-2023 influenza virus vaccine, unspecified formulation Angely OCAMPO [facility] [place] Payers Date Payer Category Payer Self-pay 1961 Medicare [id number] 1961 Unknown [id number] 1945 Unknown [id number] 2.16.84 [id number] 1945 Unknown [id number] .16.84 0.1.479609.3.579.2.593 1945 Unknown [id number] 2.16.84 0.1.280261.3.579.2.593 1943 Unknown [id number] 2.16.84 0.1.469395.3.579.2.593 1943 Unknown [id number] 2.16.84 0.1.987118.3.579.2.593 1943 Unknown [id number] 2.16.84 0.1.427255.3.579.2.593 1943 Unknown [id number] 2.16.84 0.1.329639.3.579.2.593 1943 Unknown [id number] 2.16.84 0.1.115214.3.579.2.593 1943 Unknown [id number] 2.16. 840.1.264988.3.579.2.356 1943 Unknown [id number] 2.16.8 40.1.211896.3.579.2.727 Unknown [id number] 2.16.8 40.1.853700.3.579.2.531 Unknown [id number] 2.16.8 40.1.254615.3.579.2.531 Unknown [id number] 2.16.8 40.1.580871.3.579.2.531 Unknown [id number] 2.16.8 40.1.939178.3.579.2.531 Social History Date Type Detail Facility Tobacco smoking stat us [facility] Unknown if ever smoked [facility] Work Phone: Start: 1945 Sex Assigned At Male F [facility] Sex Assigned At [facility] Start: 03-01-2023 End: 07-28-2023 Tobacco smoking status NHIS Ex-smoker (finding) [facility] Tobacco smoking status Never Gener al Surgery [...] 2 per day. (more content not included)... [facility] Comment on above: Result Comment: Elec [...] Fall precuations. Discussed tapering dose of Gabapentin [facility] Other 11-02-2023 Evaluation note* Encounter Date Diagnosis Assessment Notes Treatment Notes Treatment Clinical Notes Jun, COVID-19 (ICD-10 - U07.1) [facility] Other 11-01-2023 Evaluation note* Encounter Date Diagnosis [...] or drinking prior to bedtime. Weight loss. [facility] Other 10-04-2023 Evaluation note* Encounter Date Diagnosis [...] now. Recheck in month, consider Neurology referral [facility] Other 09-25-2023 Evaluation note* Encounter Date Diagnosis Assessment Notes Treatment Notes Treatment Clinical Notes Apr, COVID (ICD-10 - U07.1) [facility] Other 09-07-2023 Evaluation note* Encounter Date Diagnosis Assessment Notes Treatment Notes Treatment Clinical Notes Apr, Right lower quadrant abdominal pain (ICD-10 - R10.31) [facility] Other 09-05-2023 Evaluation note* Encounter Date Diagnosis [...] a trip to ER for IV hydration. [facility] Other 07-31-2023 Evaluation note* Encounter Date Diagnosis Assessment Notes Treatment Notes Treatment Clinical Notes Feb, Primary insomnia (ICD-10 - F51.01) [facility] Other 07-18-2023 Evaluation note* Encounter Date Diagnosis Assessment Notes Treatment Notes Treatment Clinical Notes Feb, Peripheral polyneuropathy (ICD-10 - G62.9) [facility] Other 07-11-2023 Evaluation note* Encounter Date Diagnosis [...] Healtlhy diet, exercise and proper sleep routine [facility] Other 06-06-2023 Evaluation note* Encounter Date Diagnosis Assessment Notes Treatment Notes Treatment Clinical Notes Jan, Peripheral polyneuropathy (ICD-10 - G62.9) [facility] Chief Complaint: Patient [...] follow-up. PMHx: CAD, HTN, HLD Seeing an hair specialist, was told he has glaucoma. Denies [...] 5. Follow up with me in the [facility] in 1 to 2 months. 6. [...] E78.2: Mixed hyperlipidemia 3. Coronary arteriosclerosis in [place] artery - Continue medications as prescribed including aspirin, Lipitor, metoprolol I25.10: Atherosclerotic heart disease of [place] coronary artery without angina pectoris metoprolol tartrate 25 mg tablet - TAKE ONE-HALF TABLET BY MOUTH TWICE DAILY Qty: 90 tablet(s) Refills: 3 Pharmacy: [facility]) Plan: Continue medi (more content not included)...[facility] 11-21-2022 Evaluation note* Encounter Date Diagnosis Assessment [...] continue exercise to achieve/maintain a normal BMI. [facility] Other 03-08-2023 Evaluation note* Encounter Date Diagnosis [...] in remission (ICD-10 - F17.211) Continue abstinence [facility] Other 02-21-2023 Evaluation note* Encounter Date Diagnosis [...] Fall precautions. Inspect feet daily for cuts. [facility] Other 01-18-2023 Evaluation note* Encounter Date Diagnosis Assessment Notes Treatment Notes Treatment Clinical Notes Aug, Helicobacter pylori (H. pylori) (ICD-10 - A04.8) [facility] Other 01-11-2023 History and physical note Author Maryjane Christensen [facility] August 27, 2022 10:16am Note Date/Time August 27, 2022 1 0:16am [facility] [address] [place] [address] Gastroenterology H&P Signed Patient: Yonatan Patel MR#: [id number] : 1945 Acct:[id number] Age/Sex: 77 / M Adm Date: 3 Loc: Room: Type: [facility] Attending Dr: Alek Oliva MD Copies to: [...] signed by Maryjane Christensen MD> 08/27/22 1016 [facility] Work Phone: [phone] Procedure [facility]* Encounter Date Diagnosis Assessment Notes Treatment Notes Treatment Clinical Notes Aug, Primary insomnia (ICD-10 - F51.01) [facility] Other 08-04-2022 NoteHISTORY AND PHYSICAL EXAMINATION Date:03/19/2022 [...] doing so in the near future. 3. [id number] patient was briefed in the office and [...] and go forward with this elective procedure.[facility] [id number] NoteOPERATIVE NOTE OPERATION DATE: 03/20/2022 SURGEON: Miguel [...] ensuring mobility, phacoemulsification was performed in a akngmfe-fqs-pqrtxz-type fashion. After all nuclear material had been [...] and after satisfaction could be achieved, the pier hand helper and the gonioprism were removed from the [...] up the following day for postoperative care.[facility] SystemConsult note Author Berhane [facility] March 01, 2023 2:24pm Note Date/Time March 01, 2023 2:24 pm [facility] [address] [place] [address] Neurology Consult Note Signed Patient: Yonatan Patel MR#: [id number] : 1945 Acct:[id number] Age/Sex: 77 / M Adm Date: 3 Loc: 3T Room: [address] [place] [address] Type: ADM INOo Attending Dr: Bobo Villagomez MD Copies to: DO Bobo Adler MD Steven Benedict, MD~ HPI Consult Date: 03/01/23 Soap Worker: Berhane Trammell MD Reason for consult: Leg [...] negative unless noted below or in HPI [facility] Vacc[facility] for [facility]-19?: Yes Medical History (Updated [...] Selena Reid M.D.03/01/2023 9:15 AM Dictation Location: [place] [address] 03/01/23 07:02 IMPRESSION: ATROPHY AND CHRONIC MICROVASCULAR CHANGES. NO DEFINITE ACUTE INTRACRANIAL ABNORMALITY. FOLLOW-UP IS RECOMMENDED, SYMPTOMS WARRANT. COMMENT: Preliminary report was provided at 0730 hours. Impression dictated by: Selena Reid M.D.03/01/2023 8:13 AM Dictation Location: [place] [address] Therapy Recommendations Therapy Recommendations: OT Recommendations OT [...] signed by MD Berhane Trammell> 03/01/23 1424 [facility] Work Phone: Discharge summary Author Angely Lee [facility] March 02, 2023 5:49pm Note Date/Time March 02, 2023 5:43 pm [facility] [address] [place] [address] Discharge Summary Signed Patient: Yonatan Patel MR#: [id number] : 1945 Acct:[id number] Age/Sex: 77 / M Adm Date: 3 Loc: Room: [address] [place] [address]: Angely Lee DO Copies to: [...] <Electronically signed by Angely Lee DO> 03/02/23 3860 [facility] [employer] Work Phone: Evaluation + Plan note No data available for this section General Surgery [place] Evaluation noteNo assessment information available [facility] [employer] Work Phone: Evaluation noteNo InformationNort [facility] Other Evaluation note* Diagnosis Onset Date Resolution Status Bilateral leg pain acute Numbness of left hand acute [facility] Work Phone: Evaluation note* Diagnosis Onset Date Resolution Status Adverse drug effect acute Altered mental status acute COVID acute Hypertension acute Lab test positive for detection of COVID-19 virus acute Neuropathy acute [facility] Work Phone: History and physical note Author Bobo Villagomez [facility] March 01, 2023 9:50am Note Date/Time March 01, 2023 9:50 am [facility] [address] [place] [address] Hospitalist H&P Signed Patient: Yonatan Patel MR#: [id number] : 1945 Acct:[id number] Age/Sex: 77 / M Adm Date: 3 Loc: Room: [address] [place] [address] Type: ADM INOo Attending Dr: Bobo Villagomez [...] except as mentioned elsewhere in the documentation [facility] Medical History Cataract Hypercholesteremia Hypertension Surgical History [...] % (Auto) 23.7 % (.) 03/01/23 07:06 Dickenson % (Auto) 8.3 % (.) 03/01/23 07:06 Eos % (Auto) 1.4 % (.) 03/01/23 07:06 Baso % (Auto) 0.7 % (.) 03/01/23 07:06 Nucleat RBC Rel Count 0.3 /100 WBC (0-0.5) 03/01/23 07:06 Neut # (Auto) 3.5 x10E3/uL (1.8-7.7) 03/01/23 07:06 Lymph # (Auto) 1.3 x10E3/uL (1.00-4.8) 03/01/23 07:06 Dickenson # (Auto) 0.4 x10E3/uL (0.0-0.8) 03/01/23 07:06 [...] pH 7.5 (5.0-9.0) 03/01/23 07:49 Ur Specific [place] 1.014 (1.001-1.030) 03/01/23 07:49 Urine Protein Negative [...] signed by Bobo Villagomez MD> 03/01/23 0950 [facility] Work Phone: [facility]ised[facility] general Narrative - Reported* Type Description Date Medical History hypercholesterolemia Medical History hypertension Medical History anxiety Medical History Esophageal reflux Medical History glaucoma Medical History neuropathy Surgical History heart catheterization Surgical History shoulder surgery Surgical History colonoscopy with polyp resectio n 08/27/21 Surgical History EGD 08/27/21 Hospitalization History see above [facility] Other [facility] general Narrative - Reported* Type Description Date Medical History hypercholesterolemia Medical History hypertension Medical History anxiety Medical History Esophageal reflux Medical History glaucoma Medical History neuropathy Surgical History heart catheterization Surgical History shoulder surgery Surgical History colonoscopy with polyp resectio n 08/27/22 Surgical History EGD 08/27/22 Hospitalization History see above [facility] Other Hospital Discharge instructions Additional Instructions DISCHARGE [...] NOT operate machinery such as power tools, [employer] mowers, [employer] blowers, sewing machines, etc. for 24 hours. [...] follow up with PCP - Office number [phone]. [facility] Work Phone: Hospital Discharge instructions No data available for this section General Surgery [place] Progress note Author Berhane Trammell [facility] March 02, 2023 3:27pm Note Date/Time March 02, 2023 3:23 pm [facility] [address] [place] [address] Neurology Progress Note Signed Patient: Yonatan Patel MR#: [id number] : 1945 Acct:[id number] Age/Sex: 77 / M Adm Date: 3 Loc: Room: [address] [place] [address] Type: ADM INOo Attending Dr: Angely Lee [...] signed by MD Berhane Trammell> 03/02/23 1527 [facility] Work Phone: Progress note No data available for this section General Surgery [place] Reason for referral (narrative)* Reason Referral for left in direct inguinal hernia Diagnosis 1 Indirect left inguin al hernia (K40.90) Referral Organization [facility] Referring Provider First Name Cisco Referring Provider Last Name Abbe Referring Provider Specialty Internal Me dicine Ref[facility] Referred Provider Angely Ocampo [place] [place] [address] [place],[address] Referred Provider Specialty Surgery Referral Priority Urgent General Notes Mr. Patel has a left indirect inguinal hernia w/ intermittent episodes of increased pain, abdominal distention and nausea. He has experienced 3-4 of these episodes in the past 2 weeks, with increased intensity and duration of pain. A recent episode was associated w/ a transient fever and chills. [facility] Other Reason for visit NarrativeERROR/Gastro referral issue [facility] Other Chief Complaint and Reason for Visit [...] , DO Primary Care Provider Active Maryjane Christensen MD Attending Provider Active Team Status: Active Member Role Status Dates Cisco Nicholson , DO Primary Care Provider Active Sandoval Palcaios Jr, MD Emergency Provider Active Warren Quiroz MD Admit Provider, Attending Provider Active (unrecognized sect ion and content) No Status Records FoundNo Status Records FoundNo Status Records FoundNo Status Records FoundNo Status Records Found INFORMATION SOURCE (unrecogn ized section and content) DATE CREATED AUTHOR 09/16/2022 [facility] DATE CREATED AUTHOR AUTHOR'S ORGANIZ ATION 11/27/2022 [place] DATE CREATED AUTHOR AUTHOR'S ORGANIZ ATION 03/05/2023 [facility] DATE CREATED AUTHOR AUTHOR'S ORGANIZ ATION 06/25/2023 [facility] DATE CREATED AUTHOR AUTHOR'S ORGANIZ ATION 08/08/2023 [facility] REASON FOR VISIT (unrecogniz ed section and [...] BE BASED ON THE PRIMARY CLINICAL RECORDS. [facility] [employer] [facility]. provides no warranty or guarantee of the accuracy or completeness of information in this document.
--- NOTE | 2023-08-19 22:36 | ED.ABDPAIN1 ---
HPI - Abdominal Pain General Chief Complaint: Abdominal Pain Stated Complaint: Post Operative Complications, Medication issues Time Seen by Provider: 08/19/23 22:03 Source: patient Limitations: no limitations History of Present Illness HPI narrative: This 78-year-old male who had left inguinal herniorrhaphy earlier today with Dr. Ocampo presents for evaluation. The patient was given a pain pill prior to being released earlier today. He got home around 3 PM. Several hours later he took a gabapentin which she typically takes 4 times a day for his foot pain. He then took 2 Tylenol because he started having pain in the postoperative site. He then became anxious because he looked at the list of medications on his discharge paper and gabapentin wasn't on it. He was afraid to take the tramadol that he was prescribed in addition to the gabapentin and Tylenol he had already taken. According to the patient's son he was also given a nerve block in this area. The patient is very anxious and worried that he is mixing up his medications. He states that he felt kind of dizzy this evening. He was getting ready for bed when he realized that he did not know if the medications were safe to take and according to the patient I'm not ready to yet . He denies any fevers or chills. He has no chest pain or shortness of breath. His major complaint is postoperative pain and thirst. Related Data Home Medications Medication Instructions Recorded Confirmed atorvastatin 80 mg tablet 80 mg PO DAILY 06/19/23 08/19/23 buspirone 15 mg tablet 15 mg PO BID 06/19/23 08/19/23 gabapentin 300 mg capsule 300 mg PO QID 06/19/23 08/19/23 metoprolol tartrate 25 mg tablet 12.5 mg PO Q12H 06/19/23 08/19/23 temazepam 15 mg capsule 15 mg PO DAILY 06/19/23 08/19/23 aspirin 81 mg tablet,delayed 81 mg PO DAILY 08/07/23 08/19/23 release (Adult Aspirin Regimen) brinzolamide 1 %-brimonidine 0.2 % drp ophthalmic (eye) BID 08/07/23 eye drops,suspension (Simbrinza) latanoprost 0.005 % eye drops drp ophthalmic (eye) QPM 08/07/23 multivitamin (Daily Multi-Vitamin 1 tab PO DAILY 08/07/23 08/19/23 tablet) Previous Rx's Medication Instructions Recorded tramadol 50 mg tablet 50 mg PO Q6H PRN pain #7 tabs 08/19/23 Allergies Allergy/AdvReac Type Severity Reaction Status Date / Time nirmatrelvir [From Paxlovid] Allergy mental Verified 08/19/23 22:02 status change ritonavir [From Paxlovid] Allergy mental Verified 08/19/23 22:02 status change Review of Systems ROS Status of ROS 10 or more systems reviewed and unremarkable except as noted in history and below [facility] Medical History (Updated 08/19/23 @ 22:36 by Ashanti Erickson MD) Insomnia ?G47.00 - Insomnia, unspecified (ICD-10) Neuropathy ?G62.9 - Polyneuropathy, unspecified (ICD-10) Irritable bowel syndrome with constipation ?K58.1 - Irritable bowel syndrome with constipation (ICD-10) GERD (gastroesophageal reflux disease) ?K21.9 - Gastro-esophageal reflux disease without esophagitis (ICD-10) Encephalopathy ?G93.40 - Encephalopathy, unspecified (ICD-10) Cholelithiases ?K80.20 - Calculus of gallbladder without cholecystitis without obstruction (ICD-10) Colon polyp ?K63.5 - Polyp of colon (ICD-10) Glaucoma ?H40.9 - Unspecified glaucoma (ICD-10) Anxiety ?F41.9 - Anxiety disorder, unspecified (ICD-10) Rib fracture (06/2022) ?S22.39XA - Fracture of one rib, unspecified side, initial encounter for closed fracture (ICD-10) Pneumothorax (06/2022) ?J93.9 - Pneumothorax, unspecified (ICD-10) Constipation ?K59.00 - Constipation, unspecified (ICD-10) Inguinal hernia ?K40.90 - Unilateral inguinal hernia, without obstruction or gangrene, not specified as recurrent (ICD-10) Hypertension ?I10 - Essential (primary) hypertension (ICD-10) High cholesterol ?E78.00 - Pure hypercholesterolemia, unspecified (ICD-10) COVID-19 (06/17/23) ?U07.1 - COVID-19 (ICD-10) Surgical History (Updated 08/19/23 @ 09:21 by Anahi Tellez) H/O eye surgery ?Z98.890 - Other specified postprocedural states (ICD-10) History of arthroscopy of shoulder ?Z98.890 - Other specified postprocedural states (ICD-10) History of arthroscopy of shoulder ?Z98.890 - Other specified postprocedural states (ICD-10) History of cardiac catheterization ?Z98.890 - Other specified postprocedural states (ICD-10) History of arthroscopy of shoulder ?Z98.890 - Other specified postprocedural states (ICD-10) History of esophagogastroduodenoscopy (EGD) ?Z98.890 - Other specified postprocedural states (ICD-10) History of colonoscopy ?Z98.890 - Other specified postprocedural states (ICD-10) History of hernia repair ?Z98.890 - Other specified postprocedural states (ICD-10) ?Z87.19 - Personal history of other diseases of the digestive system (ICD-10) Family History (Updated 08/07/23 @ 10:22 by Ingrid Coronel NP) Other Family history of brain cancer Family history of gastric cancer Family history of myocardial infarction Social History (Updated 08/07/23 @ 10:10 by Ingrid Coronel NP) Within the past year, how often did you have a drink containing alcohol: never Score interpretation: A score less than 4 is consistent with normal alcohol consumption. 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 General: Alert, nontoxic but anxious elderly male resting comfortably on the stretcher, no respiratory distress Skin: Warm, dry, no pallor noted. There is no rash noted. Head: Normocephalic, atraumatic Eye: Normal conjunctiva, no drainage, EOMI. PERRL Ears, Nose, Mouth, and Throat: oral mucosa is dry Cardiovascular: Regular Rate and Rhythm Respiratory: Patient is in no distress, no accessory muscle use, lungs are clear to auscultation, no wheezing, rales or rhonchi Back: non-tender, no CVA tenderness bilaterally to percussion. GI: Normal bowel sounds, Abdomen is soft and nontender. I did not remove the postop dressing Musculoskeletal: The patient has no evidence of calf tenderness, no pitting edema, symmetrical pulses noted bilaterally Neurological: A&O x4, normal speech Psychiatric: Cooperative Constitutional Vital Signs, click to edit/add: Last Vital Signs Temp 98.0 F 08/19/23 21:58 Pulse 85 08/19/23 21:58 Resp 18 08/19/23 21:58 BP 166/87 H 08/19/23 21:58 Pulse Ox 99 08/19/23 21:58 O2 Del Method Room Air 08/19/23 21:58 Course Vital Signs Vital signs: Vital Signs Temperature 98.0 F 08/19/23 21:58 Pulse Rate 85 08/19/23 21:58 Respiratory Rate 18 08/19/23 21:58 Blood Pressure 166/87 H 08/19/23 21:58 Pulse Oximetry 99 08/19/23 21:58 Oxygen Delivery Method Room Air 08/19/23 21:58 Temperature 98.0 F 08/19/23 21:58 Pulse Rate 85 08/19/23 21:58 Respiratory Rate 18 08/19/23 21:58 Blood Pressure 166/87 H 08/19/23 21:58 Pulse Oximetry 99 08/19/23 21:58 Oxygen Delivery Method Room Air 08/19/23 21:58 MDM - Abdominal Pain MDM Narrative Medical decision making narrative: This 78-year-old male who had left herniorrhaphy surgery earlier today presents for evaluation and concern/confusion over his medication dosing after his surgery earlier today. He was given a tramadol and nerve block and discharged home. He was given a prescription for 750 mg tramadol. He went to take one earlier today but had artery taken a gabapentin and Tylenol and was concerned that he was taking too much medication. He was unable to sleep but was in pain. There is no number to call so his son brought him to the emergency department. He is awake, alert but anxious. Blood pressure is mildly elevated at 166/87. I reviewed his medications with the patient and his son. I offered him something stronger for pain but his son states that he has a hard time taking narcotics. I explained that tramadol is a narcotic but maybe not the best narcotic for postoperative pain but the patient and his son are comfortable with the tramadol. He was given a Zofran and tramadol in emergency department. He can resume his normal medication dosing including his gabapentin and tramadol tomorrow. He was given a prescription for Zofran to take prior to using the tramadol due to its side effects of nausea and vomiting as well as Colace to prevent postoperative and opioid related constipation. Discharge Plan Discharge Chief Complaint: Abdominal Pain Clinical Impression: Postoperative pain Patient Disposition: Home, Self-Care Time of Disposition Decision: 22:35 Condition: Good Prescriptions / Home Meds: No Action Simbrinza 1-0.2 % drops,suspension OPHTHALMIC (EYE) BID latanoprost 0.005 % drops OPHTHALMIC (EYE) QPM aspirin [Adult Aspirin Regimen] 81 mg tablet,delayed release (DR/EC) 81 mg PO DAILY multivitamin [Daily Multi-Vitamin] Tablet 1 tab PO DAILY tramadol 50 mg tablet 50 mg PO Q6H MDD 200 mg PRN (Reason: pain) Qty: 7 0RF atorvastatin 80 mg tablet 80 mg PO DAILY buspirone 15 mg tablet 15 mg PO BID gabapentin 300 mg capsule 300 mg PO QID metoprolol tartrate 25 mg tablet 12.5 mg PO Q12H temazepam 15 mg capsule 15 mg PO DAILY Instructions: Pain Management in Older Adults (DC), Narcotic Safety (ED) Stand Alone Forms: Portal Instructions Referrals: Cisco Nicholson DO [Primary Care Provider] - 1 week
[2023-08-19] MEDS: ONDANSETRON 4 MG RAPDIS TABLET SL ×2 (22:51→23:16)
[2023-08-19] MEDS: TRAMADOL HCL 50 MG TABLET PO (22:52)
--- NOTE | 2023-08-19 23:02 | PC.NURSE ---
Patient had hernia surgery at this facility earlier today and was discharged without being educated on whether he was allowed to resume taking his normal daily medications. He took his Gabapentin tonight, but is now feeling dizzy, so he is not sure if he was supposed to take it or not. He was not given a phone number to call if he had any questions after his surgery, so he did not know what else to do but come to the ER. He has nnot taken any other dosese of his pain medication because he did not know if it was safe.
== END 2023-08-19 23:26 | disposition home or self-care (01) ==
PROVIDERS: Emergency Provider Emergency Medicine; PCP Internal Medicine
DX: G89.18 Other acute postprocedural pain (principal); G47.00 Insomnia, unspecified; K58.1 Irritable bowel syndrome with constipation; K21.9 Gastro-esophageal reflux disease without esophagitis; Z86.010 Personal history of colon polyps; H40.9 Unspecified glaucoma; I10 Essential (primary) hypertension; E78.00 Pure hypercholesterolemia, unspecified; Z86.16 Personal history of COVID-19; Z98.890 Other specified postprocedural states
CPT/HCPCS: 99283; Q0162

== ENCOUNTER 2023-08-23 18:07 | Emergency (ER) | payer MEDICARE, SELFPAY ==
[2023-08-23] VITALS (16 sets, daily range): BP systolic 152–181; BP diastolic 79–96; PULSE 65–77; RESP 10–20; TEMP 36.3; O2SAT 96–99; BMI 23.5
--- OUTSIDE RECORDS SUMMARY | 2023-08-23 18:26 | XMS_ITS | CCD ---
Author Name Unknown Address [address] [place] [address] Organization [facility] Care Team Providers Care Stripper And Taper Name Role Phone MD Alek Oliva Attending Provider DO Cisco Nicholson Primary Care Provider [phone] MIGUEL ANGEL SLAUGHTER Attending Unavailable ANN-MARIE, MIGUEL [...] Admitting Unavailable VALENTE, DR GUSMAN Consulting Unavailable ANGELY KENNEDY Consulting Unavailable ITKIN, PASTORA Consulting Unavailable SONG, DR DAISHA Garcia Attending Unavailable SONG, DR DAISHA Garcia Admitting Unavailable CHOCO, KATHI CORNELL Consulting Unavailable ABBE, DR JOYA Primary Care Unavailable Abbe, Cisco Unavailable Maryjane Christensen Unavailable Stalin Desai Unavailable MD Maryjane Christensen Attending Provider ZEV PRIETO Attending Unavailable Dr. Cisco Nicholson Primary Care Dr. Cisco Ivey Primary Care DO Cisco Ivey Primary Care Provider DO Alejo Lynn Emergency Provider [phone] MD Bobo Villagomez Admit Provider MD Bobo Villagomez Attending Provider MD Berhane Trammell Other Provider DO Cisco Nicholson Primary Care Provider MD Sandoval Palacios Jr Emergency Provider MD Warren Quiroz Admit Provider MD Warren Quiroz Attending Provider Cisco Nicholson Primary [facility] Unavailable Asaad, Imad Admitting Unavailable Asamallory, Jayad Attending Unavailable Cisco Nicholson Primary Care Unavailable Angely Lee Attending Unavailable Bobo Villagomez Admitting Unavailable Berhane Trammell Consulting Unavailable Berhane Trammell Consulting Unavailable Cisco Nicholson Primary Care Unavailable Warren Quiroz Admitting Unavailable Maern Petersen Attending Unavailable Cisco Nicholson Primary Care Unavailable PjDandre bustillosn Admitting Unavailable PjDandren Attending Unavailable CISCO NICHOLSON Primary Care Physician Angely OCAMPO Attending Unavailable Angely OCAMPO Attending Unavailable CISCO NICHOLSON Referring Unavailable Allergies Allergy Classification Reported Allergen(s) Allergy Type Date of Onset Reaction(s) Facility (2 sources) Ritonavir; Translations: [ritonavir] Drug Allergy [facility] (2 sources) nirmatrelvir; Translations: [nirmatrelvir] Propensity to adverse reactions [facility] (1 source) No Known Medication Allergies; Translations: [No Known Medication Allergies] Propensity to adverse reactions (disorder) [facility] Repository Medications Current Medications Medication Drug [...] Not-Taking Start: 03-19-2019 take 1 capsule by [facility] every eight hours Cephalexin 500 MG 1 [...] disease (2 sources) Atherosclerotic heart disease of [place] coronary artery without angina pectoris; Translations: [Atherosclerotic heart disease of [place] coronary artery without angina pectoris] Onset: 11-26-2022 [...] 03-28-2022 Episodic Other aftercare (1 source) Other supervisor intermediates (current) drug therapy; Translations: [OTH LONGTERM CURRENT DRUG THERAPY] Onset: 09-16-2022 Episodic Other aftercare (1 source) supervisor intermediates (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; Translations: [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#1.00TIFF Normal [facility] Consent for Procedure/Surger yon 07-29-2023 Consent for Procedure/Surgery [id number]#1.00TIFF Normal [facility] Facesheeton 07-29-2023 Facesheet [id number]#1.00TIFF Normal [facility] Ambulatory Visit Summaryon 1 09-28-2022 Ambulatory Visit Summary YONATAN PATEL :1945 Visit Date:07/28/2023 Ambulatory Visit Instructions Your Care Team Attending Physician - TOO TEJADA, Angely Garcia Primary Care Physician - ABBE GOMEZ, CISCO Referring Physician - ABBE GOMEZ, CISCO This Is Your Medications List Contact prescribing [...] you for choosing us for your care. [facility] Ambulatory Visit Summary YONATAN PATEL :1945 Visit [...] you for choosing us for your care. Normal [facility] Physician Referralon 023 Physician Referral [id number]#1.00TIFF Normal [facility] Basic Metabolic Panelon Anion gap [Moles/Vol] 10.4 mmol/L Normal 6.0-15.0 [facility] Comment on above: Order Comment: FASTI NG Y Performed By: #### H S TROP, CMP, CK, CBC #### [facility] [address] Calcium [Mass/Vol] 9.4 mg/dL Normal 8.6-10.3 [facility] Comment on above: Order Comment: FASTI NG Y Performed By: #### H S TROP, CMP, CK, CBC #### [facility] [address] Chloride [Moles/Vol] 106 mmol/L Normal 98-107 [facility] Comment on above: Order Comment: FASTI NG Y Performed By: #### H S TROP, CMP, CK, CBC #### [facility] [address] [place] [address] CO2 [Moles/Vol] 28.8 mmol/L Normal 21.0-31.0 [facility] Comment on above: Order Comment: FASTI NG Y Performed By: #### H S TROP, CMP, CK, CBC #### [facility] [address] Creatinine [Mass/Vol] 0.78 mg/dL Normal 0.70-1.30 [facility] Comment on above: Order Comment: FASTI NG Y Performed By: #### H S TROP, CMP, CK, CBC #### [facility] [address] [place] [address] Creatinine Clr Calc Pharmacy 81.46 [facility] Comment on above: Order Comment: FASTI NG Y Performed By: #### H S TROP, CMP, CK, CBC #### [facility] [address] GFR/1.73 sq M.predicted MDRD (S/P/Bld) [Vol rate/Area] mL/min/{1.73_m2} Normal [facility] Comment on above: Order Comment: FASTI NG Y Performed By: #### H S TROP, CMP, CK, CBC #### [facility] [address] Glucose [Mass/Vol] 99 mg/dL Normal 70-100 [facility] Comment on above: Order Comment: FASTI NG Y Result Comment: [facility] Glucose Reference Range is dependent on time and content of last meal. Glucose of more than 200 mg/dL in a nonstressed, ambulatory subject supports the diagnosis of Diabetes Mellitus. ADA recommended reference range Performed By: #### H S TROP, CMP, CK, CBC #### [address] Potassium [Moles/Vol] 4.2 mmol/L Normal 3.5-5.1 [facility] Comment on above: Order Comment: FASTI NG Y Performed By: #### H S TROP, CMP, CK, CBC #### [address] Sodium [Moles/Vol] 141 mmol/L Normal 136-145 [facility] Comment on above: Order Comment: FASTI NG Y Performed By: #### H S TROP, CMP, CK, CBC #### [facility] [address] [place] [address] Urea nitrogen [Mass/Vol] 16 mg/dL Normal 7-25 [facility] Comment on above: Order Comment: FASTI NG Y Performed By: #### H S TROP, CMP, CK, CBC #### [facility] [address] [place] [address] Complete Blood Count Auto Di ffon 06-22-2023 Basophils (Bld) [#/Vol] 0.0 10*3/uL Normal 0.0-0.2 [facility] Comment on above: Result Comment: PERF ORMED BY: [place] [address] PATHOLOGIST HEALTH ADMINISTRATION TEACHER HARRY MARTI M.D. Performed By: #### L IPID, [id number], PT, CBC, HEPATIC, BMP, PTT, TSH3, MG #### [address] Basophils/100 WBC (Bld) 0.4 % Normal . [facility] Comment on above: Performed By: #### L IPID, [id number], PT, CBC, HEPATIC, BMP, PTT, TSH3, MG #### [address] Eosinophils (Bld) [#/Vol] 0.1 10*3/uL Normal 0.0-0.45 [facility] Comment on above: Performed By: #### L IPID, [id number], PT, CBC, HEPATIC, BMP, PTT, TSH3, MG #### [address] Eosinophils/100 WBC (Bld) 1.2 % Normal . [facility] Comment on above: Performed By: #### L IPID, [id number], PT, CBC, HEPATIC, BMP, PTT, TSH3, MG #### [address] Erythrocyte distribution width (RBC) [Ratio] 15.2 % High 12.0-14.8 [facility] Comment on above: Performed By: #### L IPID, [id number], PT, CBC, HEPATIC, BMP, PTT, TSH3, MG #### [address] Hematocrit (Bld) [Volume fraction] 40.0 % Normal 38.8-50.0 [facility] Comment on above: Performed By: #### L IPID, [id number], PT, CBC, HEPATIC, BMP, PTT, TSH3, MG #### [address] Hemoglobin (Bld) [Mass/Vol] 13.6 g/dL Normal 13.0-17.0 [facility] Comment on above: Performed By: #### L IPID, [id number], PT, CBC, HEPATIC, BMP, PTT, TSH3, MG #### [address] Lymphocytes (Bld) [#/Vol] 1.5 10*3/uL Normal 1.00-4.8 [facility] Comment on above: Performed By: #### L IPID, [id number], PT, CBC, HEPATIC, BMP, PTT, TSH3, MG #### [address] Lymphocytes/100 WBC (Bld) 35.5 % Normal . [facility] Comment on above: Performed By: #### L IPID, [id number], PT, CBC, HEPATIC, BMP, PTT, TSH3, MG #### [address] MCH (RBC) [Entitic mass] 29.4 pg Normal 27.5-35.2 [facility] Comment on above: Performed By: #### L IPID, [id number], PT, CBC, HEPATIC, BMP, PTT, TSH3, MG #### [address] MCV (RBC) [Entitic vol] 86.7 fL Normal 83.5-101 [facility] Comment on above: Performed By: #### L IPID, [id number], PT, CBC, HEPATIC, BMP, PTT, TSH3, MG #### [address] Mean Corpuscular HGB Conc 33.9 g/dL Normal 32.5-35.6 [facility] Comment on above: Performed By: #### L IPID, [id number], PT, CBC, HEPATIC, BMP, PTT, TSH3, MG #### [address] Monocytes (Bld) [#/Vol] 0.4 10*3/uL Normal 0.0-0.8 [facility] Comment on above: Performed By: #### L IPID, [id number], PT, CBC, HEPATIC, BMP, PTT, TSH3, MG #### [address] Monocytes/100 WBC (Bld) 10.4 % Normal . [facility] Comment on above: Performed By: #### L IPID, [id number], PT, CBC, HEPATIC, BMP, PTT, TSH3, MG #### [address] Neutrophils (Bld) [#/Vol] 2.2 10*3/uL Normal 1.8-7.7 [facility] Comment on above: Performed By: #### L IPID, [id number], PT, CBC, HEPATIC, BMP, PTT, TSH3, MG #### [address] Neutrophils/100 WBC (Bld) 52.5 % Normal . [facility] Comment on above: Performed By: #### L IPID, [id number], PT, CBC, HEPATIC, BMP, PTT, TSH3, MG #### [address] NRBC% 0.1 /100{WBC} Normal 0-0.5 [facility] Comment on above: Performed By: #### L IPID, [id number], PT, CBC, HEPATIC, BMP, PTT, TSH3, MG #### [address] Platelet mean volume (Bld) [Entitic vol] 7.3 fL Normal 6.6-10.1 [facility] Comment on above: Performed By: #### L IPID, [id number], PT, CBC, HEPATIC, BMP, PTT, TSH3, MG #### [address] Platelets (Bld) [#/Vol] 153 10*3/uL Normal 150-450 [facility] Comment on above: Performed By: #### L IPID, [id number], PT, CBC, HEPATIC, BMP, PTT, TSH3, MG #### [facility] [address] RBC (Bld) [#/Vol] 4.61 10*6/uL Normal 3.90-5.60 [facility] Comment on above: Performed By: #### L IPID, [id number], PT, CBC, HEPATIC, BMP, PTT, TSH3, MG #### [address] WBC (Bld) [#/Vol] 4.1 10*3/uL Normal 4.1-10.5 [facility] Comment on above: Performed By: #### L IPID, [id number], PT, CBC, HEPATIC, BMP, PTT, TSH3, MG #### [address] Hepatic Panelon 06-22-2023 Albumin [Mass/Vol] 3.8 g/dL Normal 3.5-5.7 [facility] Comment on above: Order Comment: FASTI NG Y Performed By: #### H S TROP, CMP, CK, CBC #### [address] Albumin/Globulin [Mass ratio] 1.6 {ratio} Normal [facility] Comment on above: Order Comment: FASTI NG Y Performed By: #### H S TROP, CMP, CK, CBC #### [address] ALP [Catalytic activity/Vol] 57 U/L Normal 34-104 [facility] Comment on above: Order Comment: FASTI NG Y Performed By: #### H S TROP, CMP, CK, CBC #### [address] ALT [Catalytic activity/Vol] 26 U/L Normal 7-52 [facility] Comment on above: Order Comment: FASTI NG Y Performed By: #### H S TROP, CMP, CK, CBC #### [address] AST [Catalytic activity/Vol] 27 U/L Normal 13-39 [facility] Comment on above: Order Comment: FASTI NG Y Performed By: #### H S TROP, CMP, CK, CBC #### [address] Bilirubin [Mass/Vol] 1.0 mg/dL Normal 0.3-1.0 [facility] Comment on above: Order Comment: FASTI NG Y Performed By: #### H S TROP, CMP, CK, CBC #### [address] Bilirubin,Indirect 0.8 mg/dL Normal [facility] Comment on above: Order Comment: FASTI NG Y Performed By: #### H S TROP, CMP, CK, CBC #### [address] Bilirubin.indirect [Mass/Vol] 0.20 mg/dL High 0.03-0.18 [facility] Comment on above: Order Comment: FASTI NG Y Performed By: #### H S TROP, CMP, CK, CBC #### [address] Globulin (S) [Mass/Vol] 2.4 g/dL Normal [facility] Comment on above: Order Comment: FASTI NG Y Performed By: #### H S TROP, CMP, CK, CBC #### [address] Protein [Mass/Vol] 6.2 g/dL Low 6.4-8.9 [facility] Comment on above: Order Comment: FASTI NG Y Performed By: #### H S TROP, CMP, CK, CBC #### [address] Lipid Panelon 06-22-2023 Cholesterol [Mass/Vol] 108 mg/dL Low 140-200 [facility] Comment on above: Order Comment: FASTI NG Y Result Comment: Chol less than 200 mg/dl low risk Chol 201-239 mg/dl borderline risk Chol 240 mg/dl and greater high risk Performed By: #### H S TROP, CMP, CK, CBC #### [facility] [address] Cholesterol in HDL [Mass/Vol] 30 mg/dL Normal 23-92 [facility] Comment on above: Order Comment: SHABANA Child Result Comment: HDL CHOL ATP-III CLASSIFICATION Cardiovascular Risk HDL > or equal to 60 mg/dL LOW HDL < 40 mg/dL HIGH Performed By: #### H S TROP, CMP, CK, CBC #### [facility] [address] Cholesterol.total/Chol esterol in HDL [Mass ratio] 3.6 {ratio} Normal <5.0 [facility] Comment on above: Order Comment: SHABANA Child Performed By: #### H S TROP, CMP, CK, CBC #### [address] LDL Cholesterol,Calculated 54 mg/dL Normal 0-100 [facility] Comment on above: Order Comment: FASTI NG Y Result Comment: LDL ATP III CLASSIFICATION LDL less than 100 mg/dL Optimal LDL 100-129 mg/dL Near or above optimal LDL 130-159 mg/dL Borderline high LDL 160-189 mg/dL High LDL greater than 189 mg/dL Very high Performed By: #### H S TROP, CMP, CK, CBC #### [address] Triglyceride w/Reflex 120 mg/dL Normal 0-149 [facility] Comment on above: Order Comment: STANI OSITO Y Result Comment: TRIG ATP III CLASSIFICATION TRIG less than 150 mg/dL Normal TRIG 150-199 mg/dL Borderline high TRIG 200-500 mg/dL High TRIG greater than 500 mg/dL Very high Standard traceable to the Center for Disease Conrtrol and Prevention (CDC) test method. Performed By: #### H S TROP, CMP, CK, CBC #### [facility] [address] VLDL CHOLESTEROL 24 mg/dL Normal [facility] Comment on above: Order Comment: FASTBryan MCNEILL Y Performed By: #### H S TROP, CMP, CK, CBC #### [facility] [address] MR angio head wo conon 06-22 MR angio head wo con [facility] [place] [address] [place] [id number] MRI Report Signed Patient: Yonatan Patel MR#: [id number] 6 : 1945 Acct:[id number] Age/Sex: 78 / M ADM Date: 06/20/23 Loc: Room: [address] [place] [address] Type: ADM IN Attending Dr: Maren Petersen MD Copies to: MD Berhane Rocha MD Ordering Provider: Berhane Trammell MD Date of Service: 06/22/23 MR/MR angio head wo con: stroke MRI/MRA BRAIN WITHOUT CONTRAST COMPARISON: CT 06/20/2023 CLINICAL DATA: Confusion Sagittal T2, axial FLAIR and diffusion-weighted imaging was performed. 3-D [id number] imaging of the three affiliated of [place] was also performed. There is [...] Selena Reid M.D.06/22/2023 4:25 PM Dictation Location: [place] [address] Transcribed By: [facility] 06/22/23 9917 Dictated By: Selena Reid MD 06/22/23 1617 Signed By: 06/22/23 1621 [facility] Magnesiumon 06-22-2023 Magnesium [Mass/Vol] 2.1 mg/dL Normal 1.9-2.7 [facility] Comment on above: Order Comment: SHABANA Child Performed By: #### H S TROP, CMP, CK, CBC #### [facility] [address] [place] [id number] [facility] Partial Thromboplastin Timeo n 06-22-2023 aPTT Coag (Bld) [Time] 27.4 s Normal 25.1-36.5 [facility] Comment on above: Result Comment: A he matocrit value greater than 55% may lead to inaccurate results in coagulation testing. Patients having hematocrit values >55% require a special collection tube for coagulation studies. Please contact the laboratory at [phone] for redraw instructions. PERFORMED BY: [place] [address] PATHOLOGIST HEALTH ADMINISTRATION TEACHER HARRY MARTI M.D. Performed By: #### H S TROP, CMP, CK, CBC #### [place] [id number] [facility] Prothrombin Time INRon 06-22 INR Coag (PPP) [Relative time] 1.0 {INR} Normal [facility] Comment on above: Result Comment: INR [...] - 4.5 Performed By: #### L IPID, [id number], PT, CBC, HEPATIC, BMP, PTT, TSH3, MG #### [facility] [address] [place], [place] [id number] [facility] PT Coag (PPP) [Time] 11.6 s Normal 9.0-12.9 [facility] Comment on above: Result Comment: A he matocrit value greater than 55% may lead to inaccurate results in coagulation testing. Patients having hematocrit values >55% require a special collection tube for coagulation studies. Please contact the laboratory at [phone] for redraw instructions. Performed By: #### L IPID, [id number], PT, CBC, HEPATIC, BMP, PTT, TSH3, MG #### [facility] [address] [place] [address] Thyroid Stimulating Hormoneo n 06-22-2023 TSH Qn 2.38 m[IU]/L Normal 0.45-5.33 [facility] Comment on above: Order Comment: FASTI NG Y Result Comment: PERF ORMED BY: [place] [address] PATHOLOGIST HEALTH ADMINISTRATION TEACHER HARRY MARTI M.D. Performed By: #### H S TROP, CMP, CK, CBC #### [address] Vit. B12/Folate Profileon Cobalamin (Vitamin B12) [Mass/Vol] 425 pg/mL Normal 180-914 [facility] Comment on above: Order Comment: FASTI NG Y Performed By: #### H S TROP, CMP, CK, CBC #### [address] Folate 29.0 ng/mL Normal >5.9 [facility] Comment on above: Order Comment: FASTI NG Y Result Comment: Aye te reference range: >5.9 ng/ml The WHO technical consultation on folate and vitamin b12 deficiencies has determined that folate concentrations less than 4 ng/ml are considered deficient. Performed By: #### H S TROP, CMP, CK, CBC #### [address] Vitamin B1 (Thiamine) Bloodo n 06-22-2023 Vitamin B1 (Thiamine) Blood 143.9 Normal 66.5-200.0 [facility] Comment on above: Result Comment: This test was developed and its performance characteristics determined by [facility]. It has not been cleared or approved by the Food and Drug Administration. Performed at: [address] [id number] [place] Assembler: Juan Howard MD, Phone: [phone] PERFORMED BY: [place] [id number] PATHOLOGIST HEALTH ADMINISTRATION TEACHER HARRY MARTI M.D. Performed By: #### V ITB1 #### [facility] , Ammoniaon 06-21-2023 Ammonia (P) [Moles/Vol] 19 umol/L Normal 11-35 [facility] Comment on above: Result Comment: PERF ORMED BY: [place] [address] PATHOLOGIST HEALTH ADMINISTRATION TEACHER HARRY MARTI M.D. Performed By: #### H S TROP, CMP, CK, CBC #### [address] Basic Metabolic Panelon Anion gap [Moles/Vol] 11.3 mmol/L Normal 6.0-15.0 [facility] Comment on above: Performed By: #### H S TROP, CMP, CK, CBC #### [address] Calcium [Mass/Vol] 9.4 mg/dL Normal 8.6-10.3 [facility] Comment on above: Performed By: #### H S TROP, CMP, CK, CBC #### [address] Chloride [Moles/Vol] 107 mmol/L Normal 98-107 [facility] Comment on above: Performed By: #### H S TROP, CMP, CK, CBC #### [address] CO2 [Moles/Vol] 25.7 mmol/L Normal 21.0-31.0 [facility] Comment on above: Performed By: #### H S TROP, CMP, CK, CBC #### [address] Creatinine [Mass/Vol] 0.83 mg/dL Normal 0.70-1.30 [facility] Comment on above: Performed By: #### H S TROP, CMP, CK, CBC #### [place] [address] [place] Creatinine Clr Calc Pharmacy 80.52 Normal [facility] Comment on above: Result Comment: PERF ORMED BY: [place] [address] PATHOLOGIST HEALTH ADMINISTRATION TEACHER HARRY MARTI M.D. Performed By: #### H S TROP, CMP, CK, CBC #### [place] [address] [place] GFR/1.73 sq M.predicted MDRD (S/P/Bld) [Vol rate/Area] mL/min/{1.73_m2} Normal [facility] Comment on above: Performed By: #### H S TROP, CMP, CK, CBC #### [address] Glucose [Mass/Vol] 174 mg/dL High 70-100 [facility] Comment on above: Result Comment: [place] Glucose Reference Range is dependent on time and content of last meal. Glucose of more than 200 mg/dL in a nonstressed, ambulatory subject supports the diagnosis of Diabetes Mellitus. ADA recommended reference range Performed By: #### H S TROP, CMP, CK, CBC #### [address] Potassium [Moles/Vol] 4.0 mmol/L Normal 3.5-5.1 [facility] Comment on above: Performed By: #### H S TROP, CMP, CK, CBC #### [place] [address] [place] Sodium [Moles/Vol] 140 mmol/L Normal 136-145 [facility] Comment on above: Performed By: #### H S TROP, CMP, CK, CBC #### [address] Urea nitrogen [Mass/Vol] 11 mg/dL Normal 7-25 [facility] Comment on above: Performed By: #### H S TROP, CMP, CK, CBC #### [address] Hemogram CBC Without Diffon 06-21-2023 Erythrocyte distribution width (RBC) [Ratio] 14.7 % Normal 12.0-14.8 [facility] Comment on above: Performed By: #### H S TROP, CMP, CK, CBC #### [address] Hematocrit (Bld) [Volume fraction] 40.7 % Normal 38.8-50.0 [facility] Comment on above: Performed By: #### H S TROP, CMP, CK, CBC #### [address] Hemoglobin (Bld) [Mass/Vol] 13.9 g/dL Normal 13.0-17.0 [facility] Comment on above: Performed By: #### H S TROP, CMP, CK, CBC #### [address] MCH (RBC) [Entitic mass] 29.7 pg Normal 27.5-35.2 [facility] Comment on above: Performed By: #### H S TROP, CMP, CK, CBC #### [address] MCV (RBC) [Entitic vol] 86.8 fL Normal 83.5-101 [facility] Comment on above: Performed By: #### H S TROP, CMP, CK, CBC #### [address] Mean Corpuscular HGB Conc 34.2 g/dL Normal 32.5-35.6 [facility] Comment on above: Performed By: #### H S TROP, CMP, CK, CBC #### [address] Platelet mean volume (Bld) [Entitic vol] 7.3 fL Normal 6.6-10.1 [facility] Comment on above: Result Comment: PERF ORMED BY: [place] [address] PATHOLOGIST HEALTH ADMINISTRATION TEACHER HARRY MARTI M.D. Performed By: #### H S TROP, CMP, CK, CBC #### [facility] [address] Platelets (Bld) [#/Vol] 144 10*3/uL Low 150-450 [facility] Comment on above: Performed By: #### H S TROP, CMP, CK, CBC #### [facility] [address] RBC (Bld) [#/Vol] 4.69 10*6/uL Normal 3.90-5.60 [facility] Comment on above: Performed By: #### H S TROP, CMP, CK, CBC #### [facility] [address] WBC (Bld) [#/Vol] 3.9 10*3/uL Low 4.1-10.5 [facility] Comment on above: Performed By: #### H S TROP, CMP, CK, CBC #### [facility] [address] COVID CepheidOrdered By: Huy Palacios on 06-20-2023 SARS-CoV-2 (COVID-19) Ab IA Ql Positive Negative [facility] Comment on above: This is a duplicate Cepheid Xpert Xpress CoV-2/Flu/RSV Plus RNA by RT-PCR result to be used for statistical tracking purpose only. SARS-CoV-2 (COVID-19) RNA MARIANNE+probe Ql (Unsp spec) [facility] COVID-19 / Flu A/B / RSV [...] or Cepheid Disclaimer revoked sooner. PERFORMED BY: [place] [address] PATHOLOGIST HEALTH ADMINISTRATION TEACHER HARRY MARTI M.D. [facility] Comment on above: Performed By: #### H S TROP, CMP, CK, CBC #### [address] head/brain wo roc 06-20 CT head/brain wo [facility] [place] [address] CT Scan Report Signed Patient: Yonatan Patel MR#: [id number] 6 : 1945 Acct:[id number] Age/Sex: 78 / M ADM Date: 06/20/23 Loc: 4N Room: 6B6055-8 Type: ADM INOo Attending Dr: Jassi Arias [...] Daisha Fernandez M.D.06/20/2023 8:34 AM Dictation Location: [place] [address] Transcribed By: [facility] 06/20/23833 Dictated By: Daisha Fernandez II, MD 06/20/23829 Signed By: 06/20/23833 Normal [facility] Cepheid COVID PCR Positiveon 06-20-2023 SARS-CoV-2 (COVID-19) RNA MARIANNE+probe Ql (Unsp spec) Positive Critically abnormal Negative [facility] Comment on above: Result Comment: This is a duplicate Cepheid Xpert Xpress CoV-2/Flu/RSV Plus RNA by RT-PCR result to be used for statistical tracking purpose only. PERFORMED BY: [place] [address] PATHOLOGIST HEALTH ADMINISTRATION TEACHER HARRY MARTI M.D. Performed By: #### H S TROP, CMP, CK, CBC #### [address] Complete Blood Count Auto Di ffon 06-20-2023 Basophils (Bld) [#/Vol] 0.0 10*3/uL Normal 0.0-0.2 [facility] Comment on above: Result Comment: PERF ORMED BY: [place] [address] PATHOLOGIST HEALTH ADMINISTRATION TEACHER HARRY MARTI M.D. Performed By: #### H S TROP, CMP, CK, CBC #### [address] Basophils/100 WBC (Bld) 0.4 % Normal . [facility] Comment on above: Performed By: #### H S TROP, CMP, CK, CBC #### [address] Eosinophils (Bld) [#/Vol] 0.0 10*3/uL Normal 0.0-0.45 [facility] Comment on above: Performed By: #### H S TROP, CMP, CK, CBC #### [address] Eosinophils/100 WBC (Bld) 0.6 % Normal . [facility] Comment on above: Performed By: #### H S TROP, CMP, CK, CBC #### [address] Erythrocyte distribution width (RBC) [Ratio] 14.9 % High 12.0-14.8 [facility] Comment on above: Performed By: #### H S TROP, CMP, CK, CBC #### [address] Hematocrit (Bld) [Volume fraction] 43.3 % Normal 38.8-50.0 [facility] Comment on above: Performed By: #### H S TROP, CMP, CK, CBC #### [address] Hemoglobin (Bld) [Mass/Vol] 14.8 g/dL Normal 13.0-17.0 [facility] Comment on above: Performed By: #### H S TROP, CMP, CK, CBC #### [address] Lymphocytes (Bld) [#/Vol] 1.0 10*3/uL Normal 1.00-4.8 [facility] Comment on above: Performed By: #### H S TROP, CMP, CK, CBC #### [address] Lymphocytes/100 WBC (Bld) 20.8 % Normal . [facility] Comment on above: Performed By: #### H S TROP, CMP, CK, CBC #### [address] MCH (RBC) [Entitic mass] 30.0 pg Normal 27.5-35.2 [facility] Comment on above: Performed By: #### H S TROP, CMP, CK, CBC #### [address] MCV (RBC) [Entitic vol] 87.6 fL Normal 83.5-101 [facility] Comment on above: Performed By: #### H S TROP, CMP, CK, CBC #### [address] Mean Corpuscular HGB Conc 34.2 g/dL Normal 32.5-35.6 [facility] Comment on above: Performed By: #### H S TROP, CMP, CK, CBC #### [address] Monocytes (Bld) [#/Vol] 0.8 10*3/uL Normal 0.0-0.8 [facility] Comment on above: Performed By: #### H S TROP, CMP, CK, CBC #### [address] Monocytes/100 WBC (Bld) 24.01 % High 0.00-20.00 [facility] Comment on above: Result Comment: For adults in ED, MDW > 20.0 may be associated with a higher risk of sepsis during the first 12 hrs of hospital admission Performed By: #### H S TROP, CMP, CK, CBC #### [facility] [address] [place] [address] Monocytes/100 WBC (Bld) 15.6 % Normal . [facility] Comment on above: Performed By: #### H S TROP, CMP, CK, CBC #### [facility] [address] [place] [address] Neutrophils (Bld) [#/Vol] 3.0 10*3/uL Normal 1.8-7.7 [facility] Comment on above: Performed By: #### H S TROP, CMP, CK, CBC #### [address] Neutrophils/100 WBC (Bld) 62.6 % Normal . [facility] Comment on above: Performed By: #### H S TROP, CMP, CK, CBC #### [facility] [address] [place] [address] NRBC% 0.4 /100{WBC} Normal 0-0.5 [facility] Comment on above: Performed By: #### H S TROP, CMP, CK, CBC #### [facility] [address] [place] [address] Platelet mean volume (Bld) [Entitic vol] 7.9 fL Normal 6.6-10.1 [facility] Comment on above: Performed By: #### H S TROP, CMP, CK, CBC #### [facility] [address] [place] [address] [place] Platelets (Bld) [#/Vol] 154 10*3/uL Normal 150-450 [facility] Comment on above: Performed By: #### H S TROP, CMP, CK, CBC #### [facility] [address] [place] [address] [place] RBC (Bld) [#/Vol] 4.94 10*6/uL Normal 3.90-5.60 [facility] Comment on above: Performed By: #### H S TROP, CMP, CK, CBC #### [facility] [address] [place] [address] WBC (Bld) [#/Vol] 4.8 10*3/uL Normal 4.1-10.5 [facility] Comment on above: Performed By: #### H S TROP, CMP, CK, CBC #### [facility] [address] Comprehensive Metabolic Pane cecilia 06-20-2023 Albumin [Mass/Vol] 4.2 g/dL Normal 3.5-5.7 [facility] Comment on above: Performed By: #### H S TROP, CMP, CK, CBC #### [address] Albumin/Globulin [Mass ratio] 1.6 {ratio} Normal [facility] Comment on above: Performed By: #### H S TROP, CMP, CK, CBC #### [address] ALP [Catalytic activity/Vol] 53 U/L Normal 34-104 [facility] Comment on above: Performed By: #### H S TROP, CMP, CK, CBC #### [address] ALT [Catalytic activity/Vol] 31 U/L Normal 7-52 [facility] Comment on above: Performed By: #### H S TROP, CMP, CK, CBC #### [facility] [address] [place] [address] Anion gap [Moles/Vol] 9.2 mmol/L Normal 6.0-15.0 [facility] Comment on above: Performed By: #### H S TROP, CMP, CK, CBC #### [facility] [address] [place] [address] AST [Catalytic activity/Vol] 33 U/L Normal 13-39 [facility] Comment on above: Performed By: #### H S TROP, CMP, CK, CBC #### [facility] [address] Bilirubin [Mass/Vol] 1.0 mg/dL Normal 0.3-1.0 [facility] Comment on above: Performed By: #### H S TROP, CMP, CK, CBC #### [facility] [address] Calcium [Mass/Vol] 9.8 mg/dL Normal 8.6-10.3 [facility] Comment on above: Performed By: #### H S TROP, CMP, CK, CBC #### [facility] [address] Chloride [Moles/Vol] 107 mmol/L Normal 98-107 [facility] Comment on above: Performed By: #### H S TROP, CMP, CK, CBC #### [address] CO2 [Moles/Vol] 25.6 mmol/L Normal 21.0-31.0 [facility] Comment on above: Performed By: #### H S TROP, CMP, CK, CBC #### [place] [address] [place] Creatinine [Mass/Vol] 0.95 mg/dL Normal 0.70-1.30 [facility] Comment on above: Performed By: #### H S TROP, CMP, CK, CBC #### [facility] [address] [place] [address] [place] Creatinine Clr Calc Pharmacy 70.44 [facility] Comment on above: Result Comment: PERF ORMED BY: [place] [address] PATHOLOGIST HEALTH ADMINISTRATION TEACHER HARRY MARTI M.D. Performed By: #### H S TROP, CMP, CK, CBC #### [place] [address] [place] GFR/1.73 sq M.predicted MDRD (S/P/Bld) [Vol rate/Area] mL/min/{1.73_m2} [facility] Comment on above: Performed By: #### H S TROP, CMP, CK, CBC #### [facility] [address] [place] [address] [place] Globulin (S) [Mass/Vol] 2.7 g/dL Normal [facility] Comment on above: Performed By: #### H S TROP, CMP, CK, CBC #### [facility] [address] Glucose [Mass/Vol] 94 mg/dL Normal 70-100 [facility] Comment on above: Result Comment: [facility] Glucose Reference Range is dependent on time and content of last meal. Glucose of more than 200 mg/dL in a nonstressed, ambulatory subject supports the diagnosis of Diabetes Mellitus. ADA recommended reference range Performed By: #### H S TROP, CMP, CK, CBC #### [facility] [address] Potassium [Moles/Vol] 3.8 mmol/L Normal 3.5-5.1 [facility] Comment on above: Performed By: #### H S TROP, CMP, CK, CBC #### [facility] [address] [place] [address] [place] Protein [Mass/Vol] 6.9 g/dL Normal 6.4-8.9 [facility] Comment on above: Performed By: #### H S TROP, CMP, CK, CBC #### [facility] [address] [place] [address] [place] Sodium [Moles/Vol] 138 mmol/L Normal 136-145 [facility] Comment on above: Performed By: #### H S TROP, CMP, CK, CBC #### [facility] [address] [place] [address] [place] Urea nitrogen [Mass/Vol] 18 mg/dL Normal 7-25 [facility] Comment on above: Performed By: #### H S TROP, CMP, CK, CBC #### [facility] [address] [place] [address] [place] Creatine Kinaseon 06-20-2023 CK [Catalytic activity/Vol] 113 U/L Normal 30-223 [facility] Comment on above: Performed By: #### H S TROP, CMP, CK, CBC #### [facility] [address] [place] [address] Troponin I High Sensitivityo n 06-20-2023 Troponin I High Sensitivity 7.8 pg/mL Normal 0.0-20.0 [facility] Comment on above: Result Comment: PERF ORMED BY: [place] [address] PATHOLOGIST HEALTH ADMINISTRATION TEACHER HARRY MARTI M.D. Performed By: #### H S TROP, CMP, CK, CBC #### [facility] [address] [place] [address] Urinalysison 06-20-2023 Appearance (U) Clear Normal Clear [facility] Comment on above: Order Comment: Name Collection Type:: Clean-Voided Midstream Performed By: #### H S TROP, CMP, CK, CBC #### [facility] [address] [place] [address] Bilirubin,Urine Negative Normal Negative [facility] Comment on above: Order Comment: Name Collection Type:: Clean-Voided Midstream Performed By: #### H S TROP, CMP, CK, CBC #### [address] Color (U) Yellow Normal Yellow [facility] Comment on above: Order Comment: Name Collection Type:: Clean-Voided Midstream Performed By: #### H S TROP, CMP, CK, CBC #### [facility] [address] [place] [address] Glucose Ql (U) Normal Normal Normal [facility] Comment on above: Order Comment: Name Collection Type:: Clean-Voided Midstream Performed By: #### H S TROP, CMP, CK, CBC #### [address] Ketones Ql (U) Negative Normal Negative [facility] Comment on above: Order Comment: Name Collection Type:: Clean-Voided Midstream Performed By: #### H S TROP, CMP, CK, CBC #### [place] [address] Leukocyte esterase Test strip Ql (U) Negative Normal Negative [facility] Comment on above: Order Comment: Name Collection Type:: Clean-Voided Midstream Performed By: #### H S TROP, CMP, CK, CBC #### [address] Nitrite,Urine Negative Normal Negative [facility] Comment on above: Order Comment: Name Collection Type:: Clean-Voided Midstream Performed By: #### H S TROP, CMP, CK, CBC #### [address] Occult Blood,Urine Negative Normal Negative [facility] Comment on above: Order Comment: Name Collection Type:: Clean-Voided Midstream Result Comment: PERF ORMED BY: [place] [address] PATHOLOGIST HEALTH ADMINISTRATION TEACHER HARRY MARTI M.D. Performed By: #### H S TROP, CMP, CK, CBC #### [address] pH (U) 5.5 [pH] Normal 5.0-9.0 [facility] Comment on above: Order Comment: Name Collection Type:: Clean-Voided Midstream Performed By: #### H S TROP, CMP, CK, CBC #### [address] Protein,Urine Negative Normal Negative [facility] Comment on above: Order Comment: Name Collection Type:: Clean-Voided Midstream Performed By: #### H S TROP, CMP, CK, CBC #### [address] Specificy [place],Urine 1.005 Normal 1.001-1.03 0 [facility] Comment on above: Order Comment: Name Collection Type:: Clean-Voided Midstream Performed By: #### H S TROP, CMP, CK, CBC #### [address] Urobilinogen,Urine Normal Normal Normal [facility] Comment on above: Order Comment: Name Collection Type:: Clean-Voided Midstream Performed By: #### H S TROP, CMP, CK, CBC #### [facility] [address] [place] [id number] [facility] XR chest 2V*on 06-20-2023 XR chest 2V* [facility] [place] [address] [place] [address] XRay Report Signed Patient: Yonatan Patel MR#: [id number] 6 : 1945 Acct:[id number] Age/Sex: 78 / M ADM Date: 06/20/23 Loc: Room: [address] [place] [address] Type: ADM INOo Attending Dr: Jassi Arias [...] Daisha Fernandez M.D.06/20/2023 11:21 AM Dictation Location: [place] [address] Transcribed By: [facility] 06/20/23 112 Dictated By: Daisha Fernandez II, MD 06/20/23 112 Signed By: 06/20/23 112 Normal [facility] Alanine aminotransferase [En zymatic activity/volume] in Serum or PlasmaOrdered By: PROVIDER TEMP on 06-19-2023 ALT [Catalytic activity/Vol] 31 U/L 7-52 [facility] Albumin [Mass/volume] in Ser um or Plasma by Bromocresol green (BCG) dye binding methoOrdered By: PROVIDER TEMP on 06-19-2023 Albumin BCG dye [Mass/Vol] 4.2 g/dL 3.5-5.7 [facility] Alkaline phosphatase [Enzyma tic activity/volume] in Serum or PlasmaOrdered By: PROVIDER TEMP on 06-19-2023 ALP [Catalytic activity/Vol] 53 U/L 34-104 [facility] Aspartate aminotransferase [ Enzymatic activity/volume] in Serum or PlasmaOrdered By: PROVIDER TEMP on 06-19-2023 AST [Catalytic activity/Vol] 33 U/L 13-39 [facility] Basophils Auto (Bld) [#/Vol] Ordered By: PROVIDER TEMP on 06-19-2023 Basophils (Bld) [#/Vol] 0.0 10*3/uL 0.0-0.2 [facility] Basophils/100 WBC Auto (Bld) Ordered By: PROVIDER TEMP on 06-19-2023 Basophils/100 WBC (Bld) 0.4 % . [facility] Bilirubin Auto test strip Ql (U)Ordered By: PROVIDER TEMP on 06-19-2023 Bilirubin Ql (U) Negative Negative [facility] Bilirubin.total [Mass/volume ] in Serum or PlasmaOrdered By: PROVIDER TEMP on 06-19-2023 Bilirubin [Mass/Vol] 1.0 mg/dL 0.3-1.0 [facility] Calcium [Mass/volume] in Ser um or PlasmaOrdered By: PROVIDER TEMP on 06-19-2023 Calcium [Mass/Vol] 9.8 mg/dL 8.6-10.3 [facility] Carbon dioxide, total [Moles /volume] in Serum or PlasmaOrdered By: PROVIDER TEMP on 06-19-2023 CO2 [Moles/Vol] 25.6 mmol/L 21.0-31.0 [facility] Chloride [Moles/volume] in S raymundo or PlasmaOrdered By: PROVIDER TEMP on 06-19-2023 Chloride [Moles/Vol] 107 mmol/L 98-107 [facility] Creatine kinase [Enzymatic a ctivity/volume] in Serum or PlasmaOrdered By: PROVIDER TEMP on 06-19-2023 CK [Catalytic activity/Vol] 113 U/L 30-223 [facility] Creatinine [Mass/volume] in Serum or PlasmaOrdered By: PROVIDER TEMP on 06-19-2023 Creatinine [Mass/Vol] 0.95 mg/dL 0.70-1.30 [facility] Eosinophils Auto (Bld) [#/Vo l]Ordered By: PROVIDER TEMP on 06-19-2023 Eosinophils (Bld) [#/Vol] 0.0 10*3/uL 0.0-0.45 [facility] Eosinophils/100 WBC Auto (Bl d)Ordered By: PROVIDER TEMP on 06-19-2023 Eosinophils/100 WBC (Bld) 0.6 % . [facility] Erythrocyte distribution wid th Auto (RBC) [Ratio]Ordered By: PROVIDER TEMP on 06-19-2023 Erythrocyte distribution width (RBC) [Ratio] 14.9 % 12.0-14.8 [facility] Globulin Calc (S) [Mass/Vol] Ordered By: PROVIDER TEMP on 06-19-2023 Globulin (S) [Mass/Vol] 2.7 g/dL [facility] Glucose [Mass/volume] in Ser um or PlasmaOrdered By: PROVIDER TEMP on 06-19-2023 Glucose [Mass/Vol] 94 mg/dL 70-100 [facility] Comment on above: ADA recommended refe rence rangeRandom Glucose Reference Range is dependent on time and content of last meal. Glucose of more than 200 mg/dL in a nonstressed, ambulatory subject supports the diagnosis of Diabetes Mellitus. Hematocrit Auto (Bld) [Volum e fraction]Ordered By: PROVIDER TEMP on 06-19-2023 Hematocrit (Bld) [Volume fraction] 43.3 % 38.8-50.0 [facility] Hemoglobin [Mass/volume] in BloodOrdered By: PROVIDER TEMP on 06-19-2023 Hemoglobin (Bld) [Mass/Vol] 14.8 g/dL 13.0-17.0 [facility] Ketones Auto test strip (U) [Mass/Vol]Ordered By: PROVIDER TEMP on 06-19-2023 Ketones (U) [Mass/Vol] Negative Negative [facility] Leukocytes [#/volume] correc airam for nucleated erythrocytes in Blood by Automated counOrdered By: PROVIDER TEMP on 06-19-2023 WBC corrected for nucl RBC Auto (Bld) [#/Vol] 4.8 10*3/uL 4.1-10.5 [facility] Lymphocytes Auto (Bld) [#/Vo l]Ordered By: PROVIDER TEMP on 06-19-2023 Lymphocytes (Bld) [#/Vol] 1.0 10*3/uL 1.00-4.8 [facility] Lymphocytes/100 WBC Auto (Bl d)Ordered By: PROVIDER TEMP on 06-19-2023 Lymphocytes/100 WBC (Bld) 20.8 % . [facility] MCH Auto (RBC) [Entitic mass ]Ordered By: PROVIDER TEMP on 06-19-2023 MCH (RBC) [Entitic mass] 30.0 pg 27.5-35.2 [facility] MCHC Auto (RBC) [Mass/Vol]Or dered By: PROVIDER TEMP on 06-19-2023 MCHC (RBC) [Mass/Vol] 34.2 g/dL 32.5-35.6 [facility] MCV Auto (RBC) [Entitic vol] Ordered By: PROVIDER TEMP on 06-19-2023 MCV (RBC) [Entitic vol] 87.6 fL 83.5-101 [facility] Monocyte distribution width [Entitic volume] in Blood by AutomatedOrdered By: PROVIDER TEMP on 06-19-2023 Monocyte distribution width Auto (Bld) [Entitic vol] 24.01 % 0.00-20.00 [facility] Comment on above: For adults in ED, MD W > 20.0 may be associated with a higher risk of sepsis during the first 12 hrs of hospital admission Monocytes Auto (Bld) [#/Vol] Ordered By: PROVIDER TEMP on 06-19-2023 Monocytes (Bld) [#/Vol] 0.8 10*3/uL 0.0-0.8 [facility] Monocytes/100 WBC Auto (Bld) Ordered By: PROVIDER TEMP on 06-19-2023 Monocytes/100 WBC (Bld) 15.6 % . [facility] Neutrophils Auto (Bld) [#/Vo l]Ordered By: PROVIDER TEMP on 06-19-2023 Neutrophils (Bld) [#/Vol] 3.0 10*3/uL 1.8-7.7 [facility] Neutrophils/100 WBC Auto (Bl d)Ordered By: PROVIDER TEMP on 06-19-2023 Neutrophils/100 WBC (Bld) 62.6 % . [facility] No Panel InformationOrdered By: PROVIDER TEMP on 06-19-2023 Estimated GFR (CKD-EPI) > 60.0 mL/Min [facility] Creatinine Clearance (Chem 70.44 [facility] Nucleated erythrocytes [Pres ence] in Blood by Automated countOrdered By: PROVIDER TEMP on 06-19-2023 Nucleated RBC Auto Ql (Bld) 0.4 /100{WBC} 0-0.5 [facility] Platelet mean volume Auto (B ld) [Entitic vol]Ordered By: PROVIDER TEMP on 06-19-2023 Platelet mean volume (Bld) [Entitic vol] 7.9 fL 6.6-10.1 [facility] Platelets Auto (Bld) [#/Vol] Ordered By: PROVIDER TEMP on 06-19-2023 Platelets (Bld) [#/Vol] 154 10*3/uL 150-450 [facility] Potassium [Moles/volume] in Serum or PlasmaOrdered By: PROVIDER TEMP on 06-19-2023 Potassium [Moles/Vol] 3.8 mmol/L 3.5-5.1 [facility] Protein Auto test strip (U) [Mass/Vol]Ordered By: PROVIDER TEMP on 06-19-2023 Protein (U) [Mass/Vol] Negative Negative [facility] Protein [Mass/volume] in Ser um or PlasmaOrdered By: PROVIDER TEMP on 06-19-2023 Protein [Mass/Vol] 6.9 g/dL 6.4-8.9 [facility] RBC Auto (Bld) [#/Vol]Ordere d By: PROVIDER TEMP on 06-19-2023 RBC (Bld) [#/Vol] 4.94 10*6/uL 3.90-5.60 [facility] Serum or plasma albumin/glob ulin mass ratioOrdered By: PROVIDER TEMP on 06-19-2023 Albumin/Globulin [Mass ratio] 1.6 {ratio} [facility] Serum or plasma anion gap de terminationOrdered By: PROVIDER TEMP on 06-19-2023 Anion gap [Moles/Vol] 9.2 mmol/L 6.0-15.0 [facility] Sodium [Moles/volume] in Ser um or PlasmaOrdered By: PROVIDER TEMP on 06-19-2023 Sodium [Moles/Vol] 138 mmol/L 136-145 [facility] Troponin I.cardiac [Mass/vol ume] in Serum or Plasma by Detection limit <= 0.01 ng/Ordered By: PROVIDER TEMP on 06-19-2023 Troponin I.cardiac DL <= 0.01 ng/mL [Mass/Vol] 7.8 pg/mL 0.0-20.0 [facility] Urea nitrogen [Mass/volume] in Serum or PlasmaOrdered By: PROVIDER TEMP on 06-19-2023 Urea nitrogen [Mass/Vol] 18 mg/dL 7-25 [facility] Urine appearanceOrdered By: PROVIDER TEMP on 06-19-2023 Appearance (U) Clear Clear [facility] Urine colorOrdered By: PROVI JEANETTE TEMP on 06-19-2023 Color (U) Yellow Yellow [facility] Urine glucose measurement by automated test strip (mass/volume)Ordered By: PROVIDER TEMP on 06-19-2023 Glucose Auto test strip (U) [Mass/Vol] Normal mg/dL Normal [facility] Urine hemoglobin detection b y automated test stripOrdered By: PROVIDER TEMP on 06-19-2023 Hemoglobin Auto test strip Ql (U) Negative Negative [facility] Urine leukocyte esterase det ection by automated test stripOrdered By: PROVIDER TEMP on 06-19-2023 Leukocyte esterase Auto test strip Ql (U) Negative Negative [facility] Urine nitrite detection by a utomated test stripOrdered By: PROVIDER TEMP on 06-19-2023 Nitrite Auto test strip Ql (U) Negative Negative [facility] Urobilinogen Auto test strip (U) [Mass/Vol]Ordered By: PROVIDER TEMP on 06-19-2023 Urobilinogen (U) [Mass/Vol] Normal mg/dL Normal [facility] WBC Auto (Bld) [#/Vol]Ordere d By: PROVIDER TEMP on 06-19-2023 WBC (Bld) [#/Vol] 4.8 10*3/uL 4.1-10.5 [facility] pH Auto test strip (U)Ordere d By: PROVIDER TEMP on 06-19-2023 pH (U) 1.005 [pH] 1.001-1.03 0 [facility] pH (U) 5.5 [pH] 5.0-9.0 [facility] ECH echo transthoracicon [facility] echo transthoracic [facility] [place] [address] [place] [address] Echocardiogram Signed Patient: Yonatan Patel MR#: [id number] 6 : 1945 Acct:[id number] Age/Sex: 77 / M ADM Date: 03/01/23 Loc: Room: [address] [place] [address] Type: ADM INOo Attending Dr: Angely Lee DO Ordering Provider: Bobo Villagomez MD Date of Service: 03/01/23 [facility] tran[facility]: Neuro Symptoms/Deficit Copies to: Sinan [...] 03/02/23 0958 Signed By: Sinan Jolly MD, FACC 03/02/23 [facility]5 [facility] MR cervical spine wo conon 0 03-02-2023 MR cervical spine wo [facility] [place] [address] MRI Report Signed Patient: Yonatan Patel MR#: [id number] 6 : 1945 Acct:[id number] Age/Sex: 77 / M ADM Date: 03/01/23 Loc: Room: [address] [place] [address] Type: ADM INOo Attending Dr: Angely Lee [...] Daisha Fernandez M.D.03/02/2023 5:11 PM Dictation Location: [place] [address] Transcribed By: [facility] 03/02/231710 Dictated By: Daisha Fernandez II, MD 03/02/23 1700 Signed By: 03/02/231710 [facility] MR lumbar spine wo conon MR lumbar spine wo con [facility] Main [place] [address] [place] [address] MRI Report Signed Patient: Yonatan Patel MR#: [id number] 6 : 1945 Acct:[id number] Age/Sex: 77 / M ADM Date: 03/01/23 Loc: Room: 2C3133-3 Type: ADM INOo Attending Dr: Angely Lee [...] Daisha Fernandez M.D.03/02/2023 5:18 PM Dictation Location: [place] [address] Transcribed By: [facility] 03/02/231717 Dictated By: Daisha Fernandez II, MD 03/02/231710 Signed By: 03/02/231717 Normal [facility] A1C with Estimated Average [place] 03-01-2023 Glucose [Mass/Vol] 123 mg/dL Normal [facility] Comment on above: Order Comment: Comme nt add on Result Comment: PERF ORMED BY: [place] [address] PATHOLOGIST [employer] TE[employer] HARRY MARTI M.D. Performed By: #### A [facility] Krista, LIPID #### [facility] [address] [place] [address] HbA1c (Bld) [Mass fraction] 5.9 % High 4.3-5.6 [facility] Comment on above: Order Comment: Comme nt add on Result Comment: Incr eased risk for diabetes: 5.7 - 6.4 diabetes: >6.4 glycemic control for adults with diabetes: <7.0 Performed By: #### [facility] Krista, LIPID #### [facility] [address] [place] [address] Activated partial thrombopla stin time (aPTT) in platelet poor plasma by coagulation aOrdered By: Alejo Lynn on 03-01-2023 aPTT Coag (PPP) [Time] 27.2 s 25.1-36.5 [facility] Alanine aminotransferase [En zymatic activity/volume] in Serum or PlasmaOrdered By: Alejo Lynn on 03-01-2023 ALT [Catalytic activity/Vol] 34 U/L 7-52 [facility] Albumin [Mass/volume] in Ser um or Plasma by Bromocresol green (BCG) dye binding methoOrdered By: Alejo Lynn on 03-01-2023 Albumin BCG dye [Mass/Vol] 4.4 g/dL 3.5-5.7 [facility] Alkaline phosphatase [Enzyma tic activity/volume] in Serum or PlasmaOrdered By: Alejo Lynn on 03-01-2023 ALP [Catalytic activity/Vol] 61 U/L 34-104 [facility] Aspartate aminotransferase [ Enzymatic activity/volume] in Serum or PlasmaOrdered By: Alejo Lynn on 03-01-2023 AST [Catalytic activity/Vol] 30 U/L 13-39 [facility] B-Type Natriuretic Peptideon 03-01-2023 Natriuretic peptide B (Bld) [Mass/Vol] 96.0 pg/mL Normal 5-100 [facility] Comment on above: Result Comment: PERF ORMED BY: [place] [address] PATHOLOGIST [employer] TE[employer]ER HARRY MARTI M.D. Performed By: #### H S TROP, CMP, CK, CBC #### [facility] [address] Basic Metabolic Panelon 02-14 Anion gap [Moles/Vol] 10.3 mmol/L Normal 6.0-15.0 [facility] Comment on above: Performed By: #### H S TROP, CMP, CK, CBC #### [facility] [address] [place] [address] [place] Calcium [Mass/Vol] 9.7 mg/dL Normal 8.6-10.3 [facility] Comment on above: Performed By: #### H S TROP, CMP, CK, CBC #### [facility] [address] [place] [address] [place] Chloride [Moles/Vol] 107 mmol/L Normal 98-107 [facility] Comment on above: Performed By: #### H S TROP, CMP, CK, CBC #### [facility] [address] [place] [id number] [place] CO2 [Moles/Vol] 26.0 mmol/L Normal 21.0-31.0 [facility] Comment on above: Performed By: #### H S TROP, CMP, CK, CBC #### [facility] [address] [place] [address] [place] Creatinine [Mass/Vol] 0.91 mg/dL Normal 0.70-1.30 [facility] Comment on above: Performed By: #### H S TROP, CMP, CK, CBC #### [facility] [address] [place] [address] [place] Creatinine Clr Calc Pharmacy 76.53 [facility] Comment on above: Result Comment: PERF ORMED BY: [facility] [address] [place] [address] PATHOLOGIST HE[employer]MIN[employer] TE[employer]ER HARRY MARTI M.D. Performed By: #### H S TROP, CMP, CK, CBC #### [facility] [address] [place] [address] [place] GFR/1.73 sq M.predicted MDRD (S/P/Bld) [Vol rate/Area] mL/min/{1.73_m2} [facility] Comment on above: Performed By: #### H S TROP, CMP, CK, CBC #### [facility] [address] [place] [address] [place] Glucose [Mass/Vol] 106 mg/dL High 70-100 [facility] Comment on above: Result Comment: [place] Glucose Reference Range is dependent on time and content of last meal. Glucose of more than 200 mg/dL in a nonstressed, ambulatory subject supports the diagnosis of Diabetes Mellitus. ADA recommended reference range Performed By: #### H S TROP, CMP, CK, CBC #### [facility] [address] [place] [address] [place] Potassium [Moles/Vol] 4.3 mmol/L Normal 3.5-5.1 [facility] Comment on above: Performed By: #### H S TROP, CMP, CK, CBC #### [facility] [address] [place] [address] [place] Sodium [Moles/Vol] 139 mmol/L Normal 136-145 [facility] Comment on above: Performed By: #### H S TROP, CMP, CK, CBC #### [facility] [address] [place] [address] [place] Urea nitrogen [Mass/Vol] 16 mg/dL Normal 7-25 [facility] Comment on above: Performed By: #### H S TROP, CMP, CK, CBC #### [facility] [address] [place] [id number] [facility] Basophils Auto (Bld) [#/Vol] Ordered By: Alejo Lynn on 03-01-2023 Basophils (Bld) [#/Vol] 0.0 10*3/uL 0.0-0.2 [facility] Basophils/100 WBC Auto (Bld) Ordered By: Alejo Lynn on 03-01-2023 Basophils/100 WBC (Bld) 0.7 % . [facility] Bilirubin Test strip Ql (U)O rdered By: Alejo Lynn on 03-01-2023 Bilirubin Ql (U) Negative Negative [facility] Bilirubin.direct [Mass/volum e] in Serum or PlasmaOrdered By: Alejo Lynn on 03-01-2023 Bilirubin.direct [Mass/Vol] 0.30 mg/dL 0.03-0.18 [facility] Bilirubin.total [Mass/volume ] in Serum or PlasmaOrdered By: Alejo Lynn on 03-01-2023 Bilirubin [Mass/Vol] 1.7 mg/dL 0.3-1.0 [facility] Comment on above: Samples from patient s who have taken Naproxen have shown spurious elevation in Total Bilirubin levels. A metabolite of Naproxen, O-desmethylnaproxen, has been shown to interfere with the Jennicole-Kary method for measuring Total Bilirubin. CT head stroke alert wo cono n 03-01-2023 CT head stroke alert wo con [facility] [place] [address] [place] [address] CT Scan Report Signed Patient: Yonatan Patel MR#: [id number] 6 : 1945 Acct:[id number] Age/Sex: 77 / M ADM Date: 03/01/23 Loc: ER Room: Type: [facility] ER Attending Dr: Copies to: Alejo Lynn [...] Selena Reid M.D.03/01/2023 8:13 AM Dictation Location: [place] [address] Transcribed By: [facility] 03/01/23812 Dictated By: Selena Reid MD 03/01/2307 Signed By: 03/01/23812 Normal [facility] Calcium [Mass/volume] in Ser um or PlasmaOrdered By: Alejo Lynn on 03-01-2023 Calcium [Mass/Vol] 9.7 mg/dL 8.6-10.3 [facility] Carbon dioxide, total [Moles /volume] in Serum or PlasmaOrdered By: Alejo Lynn on 03-01-2023 CO2 [Moles/Vol] 26.0 mmol/L 21.0-31.0 [facility] Chloride [Moles/volume] in S raymundo or PlasmaOrdered By: Alejo Lynn on 03-01-2023 Chloride [Moles/Vol] 107 mmol/L 98-107 [facility] Color Auto (U)Ordered By: Franco Lynn on 03-01-2023 Color (U) Yellow Yellow [facility] Complete Blood Count Auto Di ffon 03-01-2023 Basophils (Bld) [#/Vol] 0.0 10*3/uL Normal 0.0-0.2 [facility] Comment on above: Result Comment: PERF ORMED BY: [place] [address] PATHOLOGIST [employer] TE[employer]ER HARRY MARTI M.D. Performed By: #### H S TROP, CMP, CK, CBC #### [address] Basophils/100 WBC (Bld) 0.7 % Normal . [facility] Comment on above: Performed By: #### H S TROP, CMP, CK, CBC #### [address] Eosinophils (Bld) [#/Vol] 0.1 10*3/uL Normal 0.0-0.45 [facility] Comment on above: Performed By: #### H S TROP, CMP, CK, CBC #### [address] Eosinophils/100 WBC (Bld) 1.4 % Normal . [facility] Comment on above: Performed By: #### H S TROP, CMP, CK, CBC #### [address] Erythrocyte distribution width (RBC) [Ratio] 14.5 % Normal 12.0-14.8 [facility] Comment on above: Performed By: #### H S TROP, CMP, CK, CBC #### [address] Hematocrit (Bld) [Volume fraction] 43.2 % Normal 38.8-50.0 [facility] Comment on above: Performed By: #### H S TROP, CMP, CK, CBC #### [address] Hemoglobin (Bld) [Mass/Vol] 14.9 g/dL Normal 13.0-17.0 [facility] Comment on above: Performed By: #### H S TROP, CMP, CK, CBC #### [address] Lymphocytes (Bld) [#/Vol] 1.3 10*3/uL Normal 1.00-4.8 [facility] Comment on above: Performed By: #### H S TROP, CMP, CK, CBC #### [address] Lymphocytes/100 WBC (Bld) 23.7 % Normal . [facility] Comment on above: Performed By: #### H S TROP, CMP, CK, CBC #### [address] MCH (RBC) [Entitic mass] 29.6 pg Normal 27.5-35.2 [facility] Comment on above: Performed By: #### H S TROP, CMP, CK, CBC #### [address] MCV (RBC) [Entitic vol] 86.1 fL Normal 83.5-101 [facility] Comment on above: Performed By: #### H S TROP, CMP, CK, CBC #### [address] Mean Corpuscular HGB Conc 34.4 g/dL Normal 32.5-35.6 [facility] Comment on above: Performed By: #### H S TROP, CMP, CK, CBC #### [address] Monocytes (Bld) [#/Vol] 0.4 10*3/uL Normal 0.0-0.8 [facility] Comment on above: Performed By: #### H S TROP, CMP, CK, CBC #### [place] [address] [place] Monocytes/100 WBC (Bld) 17.75 % Normal 0.00-20.00 [facility] Comment on above: Performed By: #### H S TROP, CMP, CK, CBC #### [place] [address] [place] Monocytes/100 WBC (Bld) 8.3 % Normal . [facility] Comment on above: Performed By: #### H S TROP, CMP, CK, CBC #### [address] Neutrophils (Bld) [#/Vol] 3.5 10*3/uL Normal 1.8-7.7 [facility] Comment on above: Performed By: #### H S TROP, CMP, CK, CBC #### [address] Neutrophils/100 WBC (Bld) 65.9 % Normal . [facility] Comment on above: Performed By: #### H S TROP, CMP, CK, CBC #### [address] NRBC% 0.3 /100{WBC} Normal 0-0.5 [facility] Comment on above: Performed By: #### H S TROP, CMP, CK, CBC #### [address] Platelet mean volume (Bld) [Entitic vol] 8.0 fL Normal 6.6-10.1 [facility] Comment on above: Performed By: #### H S TROP, CMP, CK, CBC #### [address] Platelets (Bld) [#/Vol] 143 10*3/uL Low 150-450 [facility] Comment on above: Performed By: #### H S TROP, CMP, CK, CBC #### [address] RBC (Bld) [#/Vol] 5.02 10*6/uL Normal 3.90-5.60 [facility] Comment on above: Performed By: #### H S TROP, CMP, CK, CBC #### [address] WBC (Bld) [#/Vol] 5.4 10*3/uL Normal 4.1-10.5 [facility] Comment on above: Performed By: #### H S TROP, CMP, CK, CBC #### [facility] [address] [place] [address] [place] Creatine Kinaseon 03-01-2023 CK [Catalytic activity/Vol] 178 U/L Normal [facility] Comment on above: Performed By: #### H S TROP, CMP, CK, CBC #### [facility] [address] [place] [phone] [facility] Creatine kinase [Enzymatic a ctivity/volume] in Serum or PlasmaOrdered By: Alejo Lynn on 03-01-2023 CK [Catalytic activity/Vol] 178 U/L [facility] Creatinine [Mass/volume] in Serum or PlasmaOrdered By: Alejo Lynn on 03-01-2023 Creatinine [Mass/Vol] 0.91 mg/dL 0.70-1.30 [facility] ECG 12 lead ECGon 03-01-2023 ECG 12 lead ECG [facility] [place] [address] [place] [address] Electrocardiograph Report Signed Patient: Yonatan Patel MR#: [id number] 6 : 1945 Acct:[id number] Age/Sex: 77 / M ADM Date: 03/01/23 Loc: Room: [address] [place] [address] Type: ADM INOo Attending Dr: Bobo Villagomez [...] longer present Confirmed by Alejo Lynn DO ([id number]) on 03/01/2023 3:12:57 PM Referred By: Electronically Signed By:Alejo Leah DO Transcribed By: MUS Signed By Alejo Lynn DO 3 1513 Normal [facility] Eosinophils Auto (Bld) [#/Vo l]Ordered By: Alejo Lynn on 03-01-2023 Eosinophils (Bld) [#/Vol] 0.1 10*3/uL 0.0-0.45 [facility] Eosinophils/100 WBC Auto (Bl d)Ordered By: Alejo Lynn on 03-01-2023 Eosinophils/100 WBC (Bld) 1.4 % . [facility] Erythrocyte distribution wid th Auto (RBC) [Ratio]Ordered By: Alejo Lynn on 03-01-2023 Erythrocyte distribution width (RBC) [Ratio] 14.5 % 12.0-14.8 [facility] Globulin Calc (S) [Mass/Vol] Ordered By: Alejo Lynn on 03-01-2023 Globulin (S) [Mass/Vol] 2.3 g/dL [facility] Glucose [Mass/volume] in Ser um or PlasmaOrdered By: Alejo Lynn on 03-01-2023 Glucose [Mass/Vol] 106 mg/dL 70-100 [facility] Comment on above: ADA recommended refe rence rangeRandom Glucose Reference Range is dependent on time and content of last meal. Glucose of more than 200 mg/dL in a nonstressed, ambulatory subject supports the diagnosis of Diabetes Mellitus. Hematocrit Auto (Bld) [Volum e fraction]Ordered By: Alejo Lynn on 03-01-2023 Hematocrit (Bld) [Volume fraction] 43.2 % 38.8-50.0 [facility] Hemoglobin [Mass/volume] in BloodOrdered By: Alejo Lynn on 03-01-2023 Hemoglobin (Bld) [Mass/Vol] 14.9 g/dL 13.0-17.0 [facility] Hepatic Panelon 03-01-2023 Albumin [Mass/Vol] 4.4 g/dL Normal 3.5-5.7 [facility] Comment on above: Performed By: #### H S TROP, CMP, CK, CBC #### [facility] [address] Albumin/Globulin [Mass ratio] 1.9 {ratio} Normal [facility] Comment on above: Performed By: #### H S TROP, CMP, CK, CBC #### [facility] [address] ALP [Catalytic activity/Vol] 61 U/L Normal 34-104 [facility] Comment on above: Performed By: #### H S TROP, CMP, CK, CBC #### [facility] [address] ALT [Catalytic activity/Vol] 34 U/L Normal 7-52 [facility] Comment on above: Performed By: #### H S TROP, CMP, CK, CBC #### [facility] [address] AST [Catalytic activity/Vol] 30 U/L Normal 13-39 [facility] Comment on above: Performed By: #### H S TROP, CMP, CK, CBC #### [facility] [address] Bilirubin [Mass/Vol] 1.7 mg/dL High 0.3-1.0 [facility] Comment on above: Result Comment: Samp les from patients who have taken Naproxen have shown spurious elevation in Total Bilirubin levels. A metabolite of Naproxen, O-desmethylnaproxen, has been shown to interfere with the Jendrassik-Grof method for measuring Total Bilirubin. Performed By: #### H S TROP, CMP, CK, CBC #### [facility] [address] Bilirubin,Indirect 1.4 mg/dL Normal [facility] Comment on above: Performed By: #### H S TROP, CMP, CK, CBC #### [facility] [address] Bilirubin.indirect [Mass/Vol] 0.30 mg/dL High 0.03-0.18 [facility] Comment on above: Performed By: #### H S TROP, CMP, CK, CBC #### [facility] [address] [place] [address] [place] Globulin (S) [Mass/Vol] 2.3 g/dL Normal [facility] Comment on above: Performed By: #### H S TROP, CMP, CK, CBC #### [facility] [address] Protein [Mass/Vol] 6.7 g/dL Normal 6.4-8.9 [facility] Comment on above: Performed By: #### H S TROP, CMP, CK, CBC #### [facility] [address] Ketones Auto test strip (U) [Mass/Vol]Ordered By: Alejo Lynn on 03-01-2023 Ketones (U) [Mass/Vol] Negative Negative [facility] Laboratory - CoagulationOrde red By: Alejo Lynn on 03-01-2023 PT Coag (PPP) [Time] 11.6 s 9.0-12.9 [facility] Leukocytes [#/volume] correc airam for nucleated erythrocytes in Blood by Automated counOrdered By: Alejo Lynn on 03-01-2023 WBC corrected for nucl RBC Auto (Bld) [#/Vol] 5.4 10*3/uL 4.1-10.5 [facility] Lipid Panelon 03-01-2023 Cholesterol [Mass/Vol] 96 mg/dL Low 140-200 [facility] Comment on above: Order Comment: Comme nt add on Result Comment: Chol less than 200 mg/dl low risk Chol 201-239 mg/dl borderline risk Chol 240 mg/dl and greater high risk Performed By: #### A 1C WT eA, LIPID #### [facility] [address] Cholesterol in HDL [Mass/Vol] 36 mg/dL Normal 23-92 [facility] Comment on above: Order Comment: Comme nt add on Result Comment: HDL CHOL ATP-III CLASSIFICATION Cardiovascular Risk HDL > or equal to 60 mg/dL LOW HDL < 40 mg/dL HIGH Performed By: #### A 1C WTH eA, LIPID #### [facility] [address] Cholesterol.total/Chol esterol in HDL [Mass ratio] 2.7 {ratio} Normal <5.0 [facility] Comment on above: Order Comment: Comme nt add on Result Comment: PERF ORMED BY: [place] [address] PATHOLOGIST [employer] TE[employer]ER HARRY MARTI M.D. Performed By: #### [facility] Krista, LIPID #### [facility] [address] LDL Cholesterol,Calculated 39 mg/dL Normal 0-100 [facility] Comment on above: Order Comment: Comme nt add on Result Comment: LDL ATP III CLASSIFICATION LDL less than 100 mg/dL Optimal LDL 100-129 mg/dL Near or above optimal LDL 130-159 mg/dL Borderline high LDL 160-189 mg/dL High LDL greater than 189 mg/dL Very high Performed By: #### A [facility] Krista, LIPID #### [address] Triglyceride w/Reflex 106 mg/dL Normal 0-149 [facility] Comment on above: Order Comment: Comme nt add on Result Comment: TRIG ATP III CLASSIFICATION TRIG less than 150 mg/dL Normal TRIG 150-199 mg/dL Borderline high TRIG 200-500 mg/dL High TRIG greater than 500 mg/dL Very high Standard traceable to the Center for Disease Conrtrol and Prevention (CDC) test method. Performed By: #### [facility] Krista, LIPID #### [address] VLDL CHOLESTEROL 21 mg/dL Normal [facility] Comment on above: Order Comment: Comme nt add on Performed By: #### A [facility] Krista, LIPID #### [facility] [address] [place] [address] [place] Lymphocytes Auto (Bld) [#/Vo l]Ordered By: Alejo Lynn on 03-01-2023 Lymphocytes (Bld) [#/Vol] 1.3 10*3/uL 1.00-4.8 [facility] Lymphocytes/100 WBC Auto (Bl d)Ordered By: Alejo Lynn on 03-01-2023 Lymphocytes/100 WBC (Bld) 23.7 % . [facility] MCH Auto (RBC) [Entitic mass ]Ordered By: Alejo Lynn on 03-01-2023 MCH (RBC) [Entitic mass] 29.6 pg 27.5-35.2 [facility] MCHC Auto (RBC) [Mass/Vol]Or dered By: Alejo Lynn on 03-01-2023 MCHC (RBC) [Mass/Vol] 34.4 g/dL 32.5-35.6 [facility] MCV Auto (RBC) [Entitic vol] Ordered By: Alejo Lynn on 03-01-2023 MCV (RBC) [Entitic vol] 86.1 fL 83.5-101 [facility] Monocyte distribution width [Entitic volume] in Blood by AutomatedOrdered By: Alejo Lynn on 03-01-2023 Monocyte distribution width Auto (Bld) [Entitic vol] 17.75 % 0.00-20.00 [facility] Monocytes Auto (Bld) [#/Vol] Ordered By: Alejo Lynn on 03-01-2023 Monocytes (Bld) [#/Vol] 0.4 10*3/uL 0.0-0.8 [facility] Monocytes/100 WBC Auto (Bld) Ordered By: Alejo Lynn on 03-01-2023 Monocytes/100 WBC (Bld) 8.3 % . [facility] Natriuretic peptide B [Mass/ Vol]Ordered By: Alejo Lynn on 03-01-2023 Natriuretic peptide B (Bld) [Mass/Vol] 96.0 pg/mL 5-100 [facility] Neutrophils Auto (Bld) [#/Vo l]Ordered By: Alejo Lynn on 03-01-2023 Neutrophils (Bld) [#/Vol] 3.5 10*3/uL 1.8-7.7 [facility] Neutrophils/100 WBC Auto (Bl d)Ordered By: Alejo Lynn on 03-01-2023 Neutrophils/100 WBC (Bld) 65.9 % . [facility] Nitrite Test strip Ql (U)Ord ered By: Alejo Lynn on 03-01-2023 Nitrite Ql (U) Negative Negative [facility] No Panel InformationOrdered By: Alejo Lynn on 03-01-2023 Estimated GFR (CKD-EPI) > 60.0 mL/Min [facility] Creatinine Clearance (Chem 76.53 [facility] Nucleated erythrocytes [Pres ence] in Blood by Automated countOrdered By: Alejo Lynn on 03-01-2023 Nucleated RBC Auto Ql (Bld) 0.3 /100{WBC} 0-0.5 [facility] Partial Thromboplastin Timeo n 03-01-2023 aPTT Coag (Bld) [Time] 27.2 s Normal 25.1-36.5 [facility] Comment on above: Result Comment: PERF ORMED BY: [place] [address] PATHOLOGIST HEALTH ADMINISTRATION TEACHER HARRY MARTI M.D. Performed By: #### H S TROP, CMP, CK, CBC #### [address] Platelet mean volume Auto (B ld) [Entitic vol]Ordered By: Alejo Lynn on 03-01-2023 Platelet mean volume (Bld) [Entitic vol] 8.0 fL 6.6-10.1 [facility] Platelet poor plasma interna tional normalized ratio (INR) by coagulation assay (relatOrdered By: Alejo Lynn on 03-01-2023 INR Coag (PPP) [Relative time] 1.0 {INR} [facility] Comment on above: INR Therapeutic Rang [...] 4.5 Platelets Auto (Bld) [#/Vol] Ordered By: lAejo Lynn on 03-01-2023 Platelets (Bld) [#/Vol] 143 10*3/uL 150-450 [facility] Potassium [Moles/volume] in Serum or PlasmaOrdered By: Alejo Lynn on 03-01-2023 Potassium [Moles/Vol] 4.3 mmol/L 3.5-5.1 [facility] Protein Auto test strip (U) [Mass/Vol]Ordered By: Alejo Lynn on 03-01-2023 Protein (U) [Mass/Vol] Negative Negative Fi [facility] Protein [Mass/volume] in Ser um or PlasmaOrdered By: Alejo Lynn on 03-01-2023 Protein [Mass/Vol] 6.7 g/dL 6.4-8.9 [facility] Prothrombin Time INRon 03-01 INR Coag (PPP) [Relative time] 1.0 {INR} Normal [facility] Comment on above: Result Comment: INR [...] H S TROP, CMP, CK, CBC #### [facility] [address] PT Coag (PPP) [Time] 11.6 s Normal 9.0-12.9 [facility] Comment on above: Performed By: #### H S TROP, CMP, CK, CBC #### [facility] [address] RBC Auto (Bld) [#/Vol]Ordere d By: Alejo Lynn on 03-01-2023 RBC (Bld) [#/Vol] 5.02 10*6/uL 3.90-5.60 [facility] [place] Serum or plasma albumin/glob ulin mass ratioOrdered By: Alejo Lynn on 03-01-2023 Albumin/Globulin [Mass ratio] 1.9 {ratio} [facility] Serum or plasma anion gap de terminationOrdered By: Alejo Lynn on 03-01-2023 Anion gap [Moles/Vol] 10.3 mmol/L 6.0-15.0 [facility] Serum or plasma non-glucuron idated bilirubin measurement (mass/volume)Ordered By: Alejo Lynn on 03-01-2023 Bilirubin.indirect [Mass/Vol] 1.4 mg/dL [facility] Sodium [Moles/volume] in Ser um or PlasmaOrdered By: Alejo Lynn on 03-01-2023 Sodium [Moles/Vol] 139 mmol/L 136-145 [facility] Specific gravity Auto test s trip (U) [Rel density]Ordered By: Alejo Lynn on 03-01-2023 Specific gravity (U) [Rel density] 1.014 1.001-1.03 0 [facility] Troponin I High Sensitivityo n 03-01-2023 Troponin I High Sensitivity 8.1 pg/mL Normal 0.0-20.0 [facility] Comment on above: Result Comment: PERF ORMED BY: [place] [address] PATHOLOGIST HEALTH ADMINISTRATION TEACHER HARRY MARTI M.D. Performed By: #### H S TROP, CMP, CK, CBC #### [facility] [address] [place] [address] Troponin I.cardiac [Mass/vol ume] in Serum or Plasma by Detection limit <= 0.01 ng/Ordered By: Alejo Lynn on 03-01-2023 Troponin I.cardiac DL <= 0.01 ng/mL [Mass/Vol] 8.1 pg/mL 0.0-20.0 [facility] Urea nitrogen [Mass/volume] in Serum or PlasmaOrdered By: Alejo Lynn on 03-01-2023 Urea nitrogen [Mass/Vol] 16 mg/dL 7-25 [facility] Urinalysison 03-01-2023 Appearance (U) Clear Normal Clear [facility] Comment on above: Order Comment: Name Collection Type:: Clean-Voided Midstream Performed By: #### U A #### [facility] [address] [place] [address] Bilirubin,Urine Negative Normal Negative [facility] Comment on above: Order Comment: Name Collection Type:: Clean-Voided Midstream Performed By: #### U A #### [facility] [address] [place] [address] [place] Color (U) Yellow Normal Yellow [facility] Comment on above: Order Comment: Name Collection Type:: Clean-Voided Midstream Performed By: #### U A #### [facility] [address] [place] [address] [place] Glucose Ql (U) Normal Normal Normal [facility] Comment on above: Order Comment: Name Collection Type:: Clean-Voided Midstream Performed By: #### U A #### [facility] [address] [place] [address] [place] Ketones Ql (U) Negative Normal Negative [facility] Comment on above: Order Comment: Name Collection Type:: Clean-Voided Midstream Performed By: #### U A #### [address] Leukocyte esterase Test strip Ql (U) Negative Normal Negative [facility] Comment on above: Order Comment: Name Collection Type:: Clean-Voided Midstream Performed By: #### U A #### [facility] [address] [place] [address] [place] Nitrite,Urine Negative Normal Negative [facility] Comment on above: Order Comment: Name Collection Type:: Clean-Voided Midstream Performed By: #### U A #### [facility] [address] [place] [address] [place] Occult Blood,Urine Negative Normal Negative [facility] Comment on above: Order Comment: Name Collection Type:: Clean-Voided Midstream Result Comment: PERF ORMED BY: [place] [address] PATHOLOGIST HEALTH ADMINISTRATION TEACHER HARRY MARTI M.D. Performed By: #### U A #### [facility] [address] [place] [address] [place] pH (U) 7.5 [pH] Normal 5.0-9.0 [facility] Comment on above: Order Comment: Name Collection Type:: Clean-Voided Midstream Performed By: #### U A #### [facility] [address] [place] [address] [place] Protein,Urine Negative Normal Negative [facility] Comment on above: Order Comment: Name Collection Type:: Clean-Voided Midstream Performed By: #### U A #### [facility] [address] Specificy [place],Urine 1.014 Normal 1.001-1.03 0 [facility] Comment on above: Order Comment: Name Collection Type:: Clean-Voided Midstream Performed By: #### U A #### [facility] [address] [place] [address] [place] Urobilinogen,Urine Normal Normal Normal [facility] Comment on above: Order Comment: Name Collection Type:: Clean-Voided Midstream Performed By: #### U A #### [facility] [address] Urine clarity by refractomet ry automatedOrdered By: Alejo Lynn on 03-01-2023 Clarity Refractometry automated (U) Clear Clear [facility] Urine glucose measurement by automated test strip (mass/volume)Ordered By: Alejo Lynn on 03-01-2023 Glucose Auto test strip (U) [Mass/Vol] Normal mg/dL Normal [facility] Urine hemoglobin detection b y automated test stripOrdered By: Alejo Lynn on 03-01-2023 Hemoglobin Auto test strip Ql (U) Negative Negative [facility] Urine leukocyte esterase det ection by automated test stripOrdered By: Alejo Lynn on 03-01-2023 Leukocyte esterase Auto test strip Ql (U) Negative Negative [facility] Urobilinogen Auto test strip (U) [Mass/Vol]Ordered By: Alejo Lynn on 03-01-2023 Urobilinogen (U) [Mass/Vol] Normal mg/dL Normal [facility] WBC Auto (Bld) [#/Vol]Ordere d By: Alejo Lynn on 03-01-2023 WBC (Bld) [#/Vol] 5.4 10*3/uL 4.1-10.5 [facility] XR chest 1V portableon 03-01 XR chest 1V portable [facility] [address] [place] [address] [place] [address] XRay Report Signed Patient: Yonatan Patel MR#: [id number] 6 : 1945 Acct:[id number] Age/Sex: 77 / M ADM Date: 03/01/23 Loc: Room: [address] [place] [address] Type: ADM INOo Attending Dr: Bobo Villagomez [...] Selena Reid M.D.03/01/2023 9:15 AM Dictation Location: [place] [address] Transcribed By: [facility] 03/01/23 0915 Dictated By: Selena Reid MD 03/01/23 0914 Signed By: 03/01/23 0915 Normal [facility] pH Auto test strip (U)Ordere d By: Alejo Lynn on 03-01-2023 pH (U) 7.5 [pH] 5.0-9.0 [facility] Office Visiton 11-26-2022 Follow-up visit [id number] Yonatan Patel 1945 M Date Provider Department Center 11/26/2022 [id number] PRIETO CARD [facility] Family History Problem Relation Age of Onset Heart attack Father Heart attack Brother Family Status - Relation Status Age at Father Brother Level of Service:53813 [place] OFFICE/OUTPATIENT ESTABLISHED LOW MDM 20-29 MIN Reason for Visit and Comments: Coronary Artery Disease [187] Hypertension [071712] Hyperlipidemia [182] Normal [facility] H Pylori Stool Ag, EIAon H Pylori Stool Ag, EIA Negative Normal Negative [facility] Comment on above: Order Comment: SOURC E OF SPECIMEN: STOOL Result Comment: Perf ormed at: BN - [facility] [address] [id number] [employer] Assembler: Juan Howard MD, Phone: [phone] PERFORMED BY: [place] [address] PATHOLOGIST HEALTH ADMINISTRATION TEACHER HARRY MARTI M.D. Performed By: #### H S TROP, CMP, CK, CBC #### [address] CBC AUTO DIFFon 09-14-2022 BASO # 0.0 103/ul Normal 0.0-0.1 [facility] Comment on above: Performed By: #### C BC #### [facility] [address] [place] [address] Dr. Patrica Nathan Basophils/100 WBC (Bld) 0.7 % Normal 0.2-2.0 [facility] Comment on above: Performed By: #### C BC #### [facility] [address] [place] [address] Dr. Patrica Nathan EO # 0.1 103/ul Normal 0.0-0.7 [facility] Comment on above: Performed By: #### C BC #### [facility] [address] [place] [address] Dr. Patrica Nathan Eosinophils/100 WBC (Bld) 1.5 % Normal 0.9-7.0 [facility] Comment on above: Performed By: #### C BC #### [facility] [address] [place] [address] Dr. Patrica Nathan Erythrocyte distribution width (RBC) [Ratio] 14.2 % Normal 11.0-15.0 [facility] Comment on above: Performed By: #### C BC #### [facility] [address] [place] [address] Dr. Patrica Nathan Hematocrit (Bld) [Volume fraction] 42.1 % Normal 42.0-54.0 [facility] Comment on above: Performed By: #### C BC #### [facility] [address] [place] [address] Dr. Patrica Nathan Hemoglobin (Bld) [Mass/Vol] 14.6 g/dL Normal 14.0-18.0 [facility] Comment on above: Performed By: #### C BC #### [facility] [address] [place] [address] Dr. Patrica Nathan IG # 0.03 10e3/ul Normal 0.00-0.03 [facility] Comment on above: Performed By: #### C BC #### [facility] [address] [place] [address] Dr. Patrica Nathan IG % 0.5 % Normal 0.0-0.5 [facility] Comment on above: Performed By: #### C BC #### [facility] [address] [place] [address] Dr. Patrica Nathan LYMPH # 1.3 103/ul Normal 1.2-3.8 [facility] Comment on above: Performed By: #### C BC #### [facility] [address] [place] [address] Dr. Patrica Nathan Lymphocytes/100 WBC (Bld) 22.4 % Normal 20.5-60.0 [facility] Comment on above: Performed By: #### C BC #### [facility] [address] [place] [address] Dr. Patrica Nathan MANUAL DIFF REQ NO Normal [facility] Comment on above: Performed By: #### C BC #### [facility] [address] [place] [address] Dr. Patrica Nathan MCH (RBC) [Entitic mass] 29.4 pg Normal 25.9-34.0 [facility] Comment on above: Performed By: #### C BC #### [facility] [address] [place] [address] Dr. Patrica Nathan MCHC (RBC) [Mass/Vol] 34.7 g/dL Normal 29.9-35.2 [facility] Comment on above: Performed By: #### C BC #### [facility] [address] [place] [address] Dr. Patrica Nathan MCV (RBC) [Entitic vol] 84.9 fL Normal 80.0-94.0 [facility] Comment on above: Performed By: #### C BC #### [facility] [address] [place] [address] Dr. Patrica Nathan MONO # 0.6 103/ul Normal 0.3-0.8 [facility] Comment on above: Performed By: #### C BC #### [facility] [address] [place] [address] Dr. Patrica Nathan Monocytes/100 WBC (Bld) 9.9 % Normal 1.7-12.0 [facility] Comment on above: Performed By: #### C BC #### [facility] [address] [place] [address] Dr. Patrica Nathan NEUT # 3.9 103/ul Normal 1.4-6.5 [facility] Comment on above: Performed By: #### C BC #### [facility] [address] [place] [address] Dr. Patrica Nathan Neutrophils/100 WBC (Bld) 65.0 % Normal 43.0-75.0 [facility] Comment on above: Performed By: #### C BC #### [facility] [address] [place] [address] Dr. Patrica Nathan Platelet mean volume (Bld) [Entitic vol] 9.6 fL Normal 9.5-13.5 [facility] Comment on above: Performed By: #### C BC #### [facility] [address] [place] [address] Dr. Patrica Nathan PLT 170 103/ul Normal 150-450 [facility] Comment on above: Performed By: #### C BC #### [facility] [address] [place] [address] Dr. Patrica Nathan RBC 4.96 106/ul Normal 4.70-6.10 [facility] Comment on above: Performed By: #### C BC #### [facility] [address] [place] [address] Dr. Patrica Nathan WBC 6.0 103/ul Normal 4.0-11.0 [facility] Comment on above: Performed By: #### C BC #### [facility] [address] [place], [place] [address] HEAD WO CONon [...] Date: 2022-09-14 10:00 Normal [facility] PROF 14(COMP METB)on 023 Albumin [Mass/Vol] 3.7 g/dL Normal 3.4-5.0 [facility] Comment on above: Performed By: #### C JV, HSTROPN #### [facility] [address] [place] [address] [address] Patrica Nathan Albumin/Globulin [Mass ratio] 1.4 {ratio} Normal [facility] Comment on above: Performed By: #### C JV, HSTROPN #### [facility] [address] [place], [place] [address] Dr. Patrica Nathan ALP [Catalytic activity/Vol] 83 U/L Normal 46-116 [facility] Comment on above: Performed By: #### C JV, HSTROPN #### [facility] [address] [place] [address] Dr. Patrica Nathan ALT [Catalytic activity/Vol] 57 U/L Normal 16-63 [facility] Comment on above: Performed By: #### C JV, HSTROPN #### [facility] [address] [place] [address] Dr. Patrica Nathan Anion gap [Moles/Vol] 11.9 mmol/L Normal [facility] Comment on above: Performed By: #### C JV, HSTROPN #### [facility] [address] [place] [address] Dr. Patrica Nathan AST [Catalytic activity/Vol] 43 U/L Critically high 15-37 [facility] Comment on above: Performed By: #### C JV, HSTROPN #### [facility] [address] [place] [address] Dr. Patrica Nathan Bilirubin [Mass/Vol] 1.1 mg/dL Critically high 0.2-1.0 [facility] Comment on above: Performed By: #### C JV, HSTROPN #### [facility] [address] [place] [address] Dr. Patrica Nathan Calcium [Mass/Vol] 9.2 mg/dL Normal 8.5-10.1 [facility] Comment on above: Performed By: #### C JV, HSTROPN #### [facility] [address] [place] [address] Dr. Patrica Nathan Chloride [Moles/Vol] 106 mmol/L Normal 98-107 [facility] Comment on above: Performed By: #### C JV, HSTROPN #### [facility] [address] [place] [address] Dr. Patrica Nathan CO2 [Moles/Vol] 28.0 mmol/L Normal 21.0-32.0 [facility] Comment on above: Performed By: #### C MP, HSTROPN #### [facility] [address] [place] [address] [address] Patrica Nathan Creatinine [Mass/Vol] 0.92 mg/dL Normal 0.70-1.30 [facility] Comment on above: Performed By: #### C MP, HSTROPN #### [facility] [address] [place] [address] Dr. Patrica Nathan EGFR-AF MALIAN >60 Normal >=60 [facility] Comment on above: Performed By: #### C MP, HSTROPN #### [facility] [address] [place] [address] Dr. Patrica Nathan EGFR-NON AF MALIAN >60 Normal >=60 [facility] Comment on above: Performed By: #### C MP, HSTROPN #### [facility] [address] [place] [address] Dr. Patrica Nathan Globulin (S) [Mass/Vol] 2.7 g/dL Normal [facility] Comment on above: Performed By: #### C MP, HSTROPN #### [facility] [address] [place] [address] Dr. Patrica Nathan Glucose [Mass/Vol] 90 mg/dL Normal 74-106 [facility] Comment on above: Performed By: #### C JV, HSTROPN #### [facility] [address] [place] [address] Dr. Patrica Nathan Potassium [Moles/Vol] 3.9 mmol/L Normal 3.5-5.1 [facility] Comment on above: Performed By: #### C MP, HSTROPN #### [facility] [address] [place] [address] Dr. Patrica Nathan Protein [Mass/Vol] 6.4 g/dL Normal 6.4-8.2 [facility] Comment on above: Performed By: #### C MP, HSTROPN #### [facility] [address] [place] [address] Dr. Patrica Nathan Sodium [Moles/Vol] 142 mmol/L Normal 136-145 [facility] Comment on above: Performed By: #### C MP, HSTROPN #### [facility] [address] [place] [address] [address] Patrica Nathan Urea nitrogen [Mass/Vol] 19.0 mg/dL Critically high 7.0-18.0 [facility] Comment on above: Performed By: #### C MP, HSTROPN #### [facility] [address] [place] [address] [address] Patrica Nathan Urea nitrogen/Creatinine [Mass ratio] 20.7 mg/mg Normal [facility] Comment on above: Performed By: #### C MP, HSTROPN #### [facility] [address] [place] [address] [address] Patrica Nathan TROPONIN, HIGH SENSITIVITYon 09-14-2022 HSTROP 5.8 pg/mL Normal 4.0-76.1 [facility] Comment on above: Result Comment: CUT- OFF POINTS HAVE BEEN ESTABLISHED BASED ON THE FOURTH UNIVERSAL DEFINITIONS OF MYOCARDIAL INFARCTION. THE UPPER REFERENCE LIMIT (URL) OF TROPONIN, DEFINED THE 99TH PERCENTILE OF cTnI DISTRIBUTION IN A REFERENCE POPULATION, HAS BEEN CONFIRMED THE DECISION THRESHOLD FOR MS DIAGNOSIS. Performed By: #### C MP, HSTROPN #### [facility] [address] [place] [address] Dr. Patrica Nathan XR CHEST 1 Von 09-14-2022 XR CHEST 1 V EXAM: XR CHEST 1 V HISTORY: Near syncope COMPARISON: None. TECHNIQUE: Single view of the chest FINDINGS: Heart size normal. No focal consolidation, pleural effusion, pulmonary congestion or pneumothorax. IMPRESSION: No acute findings. Electronically authenticated by: PASTORA DREW Date: 2022-09-14 10:01 Normal [facility] 08-27-2022 L ------- Specimen: [id number] Received: 08/27/22 Status: MARIAH Gilmore Num: [id number] Spec Type: Surgical Subm Dr: Maryjane Christensen MD Tissues: A Gastric Biopsy (GASTRIC BX) B Colon Biopsy (ASCENDING POLYP) C Colon Biopsy (SIGMIOD POLYP) Procedures: HE/6, Gross/Micro L4/3, H PYLORI Age/ Patient Sex Location Account Attending Physician Yonatan Patel 77/[facility] [id number] Alek Oliva MD SPEC NUM: [id number] RECD: 08/27/22 STATUS: MARIAH REMarquita NUM: [id number] EVE: 08/27/22- SUBM DR: Maryjane Christensen MD ENTERED: 08/27/[address] [facility] [address]: SPEC TYPE: Surgical DEPT: S ORDERED: HE/6, Gross/Micro L4/3, H PYLORI ORDERED: HE/6, Gross/Micro L4/3, H PYLORI Supplemental Report Addendum 1 Entered: 08/28/22-9584 A. Immunohistochemical stain for Helicobacter Pylori is POSITIVE. Addendum Signed (signature on file) Aaliyah Beard MD 08/28/22 1555 Pathological Diagnosis A. Stomach, gastric, biopsy: - Moderate chronic active gastritis. - Positive for Helicobacter pylori like organisms on H E stain. COMMENT: Confirmatory Helicobacter pylori immunohistochemical stain is being performed, an addendum report will be issued on completion. B. Colon, ascending, polypectomy: - Tubular adenoma. Specimen: [id number] Received: 08/27/22 Status: MARIAH Mando Num: [id number] Spec Type: Surgical Subm Dr: Maryjane Christensen MD Tissues: A Gastric Biopsy (GASTRIC BX) B Colon Biopsy (ASCENDING POLYP) C Colon Biopsy (SIGMIOD POLYP) Procedures: HE/6, Gross/Micro L4/3, H PYLORI Patient: Yonatan Patel [id number] (Continued) Specimen: Received: 08/27/22 (Continued) Pathological Diagnosis (Continued) Signed (signature on file) Aaliyah Beard MD 08/28/22 1236 Specimen: Received: 08/27/22 Status: MARIAH Coburnmarquita Num: [id number] Spec Type: Surgical Subm Dr: Maryjane Christensen MD Tissues: A Gastric Biopsy (GASTRIC BX) B Colon Biopsy (ASCENDING POLYP) C Colon Biopsy (SIGMIOD POLYP) Procedures: HE/6, Gross/Micro L4/3, H PYLORI Patient: Yonatan Patel [id number] (Continued) Specimen: Received: 08/27/22 (Continued) Pathological Diagnosis [...] support the above pathologic diagnosis. CPT Codes 03003?3 Specimen: [id number] Received: 08/27/22 Status: MARIAH [place]urn[place] Num: [id number] Spec Type: Surgical Subm Dr: Maryjane Christensen MD Tissues: A Gastric Biopsy (GASTRIC BX) B Colon Biopsy (ASCENDING POLYP) C Colon Biopsy (SIGMIOD POLYP) Procedures: HE/6, Gross/Micro L4/3, H PYLORI --------- (more content not included)... Normal [facility] MRI BRAIN WO CONon 2 MRI BRAIN WO CON EXAMINATION: MRI BRA IN WO ALEX, 07/28/2022 8:18 AM EST HISTORY: Skin sensation [...] by: BERHANE HERNANDEZ Date: 2022-07-29 08:42 Normal [facility] LIPID PROFILEon 07-28-2022 CHOL-HDL RATIO NORM SEE BELOW Normal [facility] Comment on above: Result Comment: 3.3 - 4.4 LOW RISK 4.4 - 7.1 AVERAGE RISK 7.1 - 11.0 MODERATE RISK >11.0 HIGH RISK Performed By: #### C JV HSTROPN #### [facility] [address], [place] [address] Dr. Patrica Nathan Cholesterol [Mass/Vol] 97 mg/dL Normal <=200 [facility] Comment on above: Performed By: #### C JV HSTRMARITZAN #### [facility] [address], [place] [address] Dr. Patrica Nathan Cholesterol in HDL [Mass/Vol] 40 mg/dL Normal 40-60 [facility] Comment on above: Performed By: #### C JV HSTROPN #### [facility] [address] [address] [address] Patrica Nathan Cholesterol in LDL [Mass/Vol] 31.8 mg/dL Normal [facility] Comment on above: Performed By: #### C JV, HSTROPN #### [facility] [address] [address] [address] Patrica Nathan Cholesterol.total/Chol esterol in HDL [Mass ratio] 2.4 {ratio} Normal [facility] Comment on above: Performed By: #### C JV, HSTROPN #### [facility] [address] [address] [address] Patrica Nathan HDL NORMAL > or = 60 mg/dl - LO W CARDIOVASCULAR RISK <40 mg/dl - HIGH CARDIOVASCULAR RISK Normal [facility] Comment on above: Performed By: #### C JV, HSTROPN #### [facility] [address] [place] [address] Dr. Patrica Nathan LDL CALC NORMAL SEE BELOW Normal [facility] Comment on above: Result Comment: <100 mg/dl OPTIMAL 100 - 129 mg/dl NEAR OR ABOVE OPTIMAL 130 - 159 mg/dl BORDERLINE HIGH 160 - 189 mg/dl HIGH >190 mg/dl VERY HIGH Performed By: #### C JV, HSTROPN #### [facility] [address] [place] [address] Dr. Patrica Nathan Triglyceride [Mass/Vol] 126 mg/dL Normal <=150 [facility] Comment on above: Performed By: #### C JV, HSTROPN #### [facility] [address] [place] [address] Dr. Patrica Nathan VLDL CALC 25.2 mg/dL Normal [facility] Comment on above: Performed By: #### C JV, HSTROPN #### [facility] [address] [place] [address] Dr. Patrica Nathan CBC AUTO DIFFon 07-01-2022 BASO # 0.0 103/ul Normal 0.0-0.1 [facility] Comment on above: Performed By: #### C BC #### [facility] [address] [place] [address] Dr. Patrica Nathan Basophils/100 WBC (Bld) 0.5 % Normal 0.2-2.0 [facility] Comment on above: Performed By: #### C BC #### [facility] [address] [place] [address] Dr. Patrica Nathan EO # 0.1 103/ul Normal 0.0-0.7 [facility] Comment on above: Performed By: #### C BC #### [facility] [address] [place] [address] Dr. Patrica Nahtan Eosinophils/100 WBC (Bld) 2.2 % Normal 0.9-7.0 [facility] Comment on above: Performed By: #### C BC #### [facility] [address] [place] [address] Dr. Patrica Nathan Erythrocyte distribution width (RBC) [Ratio] 14.3 % Normal 11.0-15.0 [facility] Comment on above: Performed By: #### C BC #### [facility] [address] [place] [address] Dr. Patrica Nathan Hematocrit (Bld) [Volume fraction] 45.8 % Normal 42.0-54.0 [facility] Comment on above: Performed By: #### C BC #### [facility] [address] [place] [address] Dr. Patrica Nathan Hemoglobin (Bld) [Mass/Vol] 15.1 g/dL Normal 14.0-18.0 [facility] Comment on above: Performed By: #### C BC #### [facility] [address] [place] [address] Dr. Patrica Nathan IG # 0.01 10e3/ul Normal 0.00-0.03 [facility] Comment on above: Performed By: #### C BC #### [facility] [address] [place] [address] Dr. Patrica Nathan IG % 0.2 % Normal 0.0-0.5 [facility] Comment on above: Performed By: #### C BC #### [facility] [address] [place] [address] Dr. Patrica Nathan LYMPH # 1.4 103/ul Normal 1.2-3.8 [facility] Comment on above: Performed By: #### C BC #### [facility] [address] [place] [address] Dr. Patrica Nathan Lymphocytes/100 WBC (Bld) 24.0 % Normal 20.5-60.0 [facility] Comment on above: Performed By: #### C BC #### [facility] [address] [place] [address] Dr. Patrica Nathan MANUAL DIFF REQ NO Normal [facility] Comment on above: Performed By: #### C BC #### [facility] [address] [place] [address] Dr. Patrica Nathan MCH (RBC) [Entitic mass] 29.4 pg Normal 25.9-34.0 [facility] Comment on above: Performed By: #### C BC #### [facility] [address] [place] [address] Dr. Patrica Nathan MCHC (RBC) [Mass/Vol] 33.0 g/dL Normal 29.9-35.2 [facility] Comment on above: Performed By: #### C BC #### [facility] [address] [place] [address] Dr. Patrica Nathan MCV (RBC) [Entitic vol] 89.3 fL Normal 80.0-94.0 [facility] Comment on above: Performed By: #### C BC #### [facility] [address] [place] [address] Dr. Patrica Nathan MONO # 0.6 103/ul Normal 0.3-0.8 [facility] Comment on above: Performed By: #### C BC #### [facility] [address] [place] [address] Dr. Patrica Nathan Monocytes/100 WBC (Bld) 10.8 % Normal 1.7-12.0 [facility] Comment on above: Performed By: #### C BC #### [facility] [address] [place] [address] Dr. Patrica Nathan NEUT # 3.7 103/ul Normal 1.4-6.5 [facility] Comment on above: Performed By: #### C BC #### [facility] [address] [place] [address] Dr. Patrica Nathan Neutrophils/100 WBC (Bld) 62.3 % Normal 43.0-75.0 [facility] Comment on above: Performed By: #### C BC #### [facility] [address] [place] [address] Dr. Patrica Nathan Platelet mean volume (Bld) [Entitic vol] 9.7 fL Normal 9.5-13.5 [facility] Comment on above: Performed By: #### C BC #### [facility] [address] [place] [address] Dr. Patrica Nathan PLT 192 103/ul Normal 150-450 [facility] Comment on above: Performed By: #### C BC #### [facility] [address] [place] [address] Dr. Patrica Nathan RBC 5.13 106/ul Normal 4.70-6.10 [facility] Comment on above: Performed By: #### C BC #### [facility] [address] [place] [address] Dr. Patrica Nathan WBC 6.0 103/ul Normal 4.0-11.0 [facility] Comment on above: Performed By: #### C BC #### [facility] [address] [place] [address] CHEST WO CONon [...] Date: 2022-07-01 07:16 Normal [facility] PROF 14(COMP METB)on 022 Albumin [Mass/Vol] 4.0 g/dL Normal 3.4-5.0 [facility] Comment on above: Performed By: #### C JV HSTROPN #### [facility] [address] [place] [address] Dr. Patrica Nathan Albumin/Globulin [Mass ratio] 1.2 {ratio} Normal [facility] Comment on above: Performed By: #### C JV HSTROPN #### [facility] [address] [place] [address] Dr. Patrica Nathan ALP [Catalytic activity/Vol] 80 U/L Normal 46-116 [facility] Comment on above: Performed By: #### C JV HSTROPN #### [facility] [address] [address] [address] Patrica Nathan ALT [Catalytic activity/Vol] 30 U/L Normal 16-63 [facility] Comment on above: Performed By: #### C JV HSTROPN #### [facility] [address] [address] [address] Patrica Nathan Anion gap [Moles/Vol] 8.5 mmol/L Normal [facility] Comment on above: Performed By: #### C JV, HSTROPN #### [facility] [address] [address] [address] Patrica Nathan AST [Catalytic activity/Vol] 26 U/L Normal 15-37 [facility] Comment on above: Performed By: #### C JV, HSTROPN #### [facility] [address] [address] [address] Patrica Nathan Bilirubin [Mass/Vol] 1.4 mg/dL Critically high 0.2-1.0 [facility] Comment on above: Performed By: #### C MP, HSTROPN #### [facility] [address] [address] [address] Patrica Nathan Calcium [Mass/Vol] 9.8 mg/dL Normal 8.5-10.1 [facility] Comment on above: Performed By: #### C MP, HSTROPN #### [facility] [address] [address] [address] Patrica Nathan Chloride [Moles/Vol] 104 mmol/L Normal 98-107 [facility] Comment on above: Performed By: #### C MP, HSTROPN #### [facility] [address] [place] [address] Dr. Patrica Nathan CO2 [Moles/Vol] 30.8 mmol/L Normal 21.0-32.0 [facility] Comment on above: Performed By: #### C MP, HSTROPN #### [facility] [address] [address] [address] Patrica Nathan Creatinine [Mass/Vol] 0.97 mg/dL Normal 0.70-1.30 [facility] Comment on above: Performed By: #### C MP, HSTROPN #### [facility] [address] [place] [address] Dr. Patrica Nathan EGFR-AF MALIAN >60 Normal >=60 [facility] Comment on above: Performed By: #### C MP, HSTROPN #### [facility] [address] [place] [address] Dr. Patrica Nathan EGFR-NON AF MALIAN >60 Normal >=60 [facility] Comment on above: Performed By: #### C MP, HSTROPN #### [facility] [address] [place] [address] Dr. Patrica Nathan Globulin (S) [Mass/Vol] 3.4 g/dL Normal [facility] Comment on above: Performed By: #### C MP, HSTROPN #### [facility] [address] [place] [address] Dr. Patrica Nathan Glucose [Mass/Vol] 110 mg/dL Critically high 74-106 [facility] Comment on above: Performed By: #### C MP, HSTROPN #### [facility] [address] [place] [address] Dr. Patrica Nathan Potassium [Moles/Vol] 4.3 mmol/L Normal 3.5-5.1 [facility] Comment on above: Performed By: #### C MP, HSTROPN #### [facility] [address] [place] [address] Dr. Patrica Nathan Protein [Mass/Vol] 7.4 g/dL Normal 6.4-8.2 [facility] Comment on above: Performed By: #### C MP, HSTROPN #### [facility] [address] [place] [address] Dr. Patrica Nathan Sodium [Moles/Vol] 139 mmol/L Normal 136-145 [facility] Comment on above: Performed By: #### C MP, HSTROPN #### [facility] [address] [place] [address] Dr. Patrica Nathan Urea nitrogen [Mass/Vol] 15.0 mg/dL Normal 7.0-18.0 [facility] Comment on above: Performed By: #### C MP, HSTROPN #### [facility] [address] [place] [address] Dr. Patrica Nathan Urea nitrogen/Creatinine [Mass ratio] 15.5 mg/mg Normal [facility] Comment on above: Performed By: #### C MP, HSTROPN #### [facility] [address] [place] [address] Dr. Patrica Nathan PROTIMEon 07-01-2022 INR Coag (PPP) [Relative time] 0.95 {INR} Normal [facility] Comment on above: Performed By: #### P T, PTT #### [facility] [address] [place] [address] Dr. Patrica Nathan INR GUIDELINES SEE BELOW Normal [facility] Comment on above: Result Comment: ODALIS RED INR: 2.0 - 3.0 CONDITIONS NOT LISTED BELOW 2.5 - 3.5 FOR PROSTHETIC HEART VALVE REPLACEMENT 2.5 - 3.5 RECURRENT THROMBOSIS Performed By: #### P T, PTT #### [facility] [address] [address] [address] Patrica Nathan PT Coag (PPP) [Time] 10.3 s Normal 9.0-11.6 [facility] Comment on above: Performed By: #### P T, PTT #### [facility] [address] [address] [address] Patrica Nathan PTTon 07-01-2022 aPTT Coag (Bld) [Time] 27.1 s Normal 22.3-36.2 Th e [facility] Comment on above: Performed By: #### C MP, HSTROPN #### [facility] [address] [address] [address] Patrica Nathan XR CHEST 1 Von [...] Date: 2022-07-01 06:33 Normal [facility] CT CHEST WO CONon 06-29-2022 CT CHEST [...] by: BERHANE HERNANDEZ Date: 2022-06-29 16:01 Normal [facility] XR RIBS RT PA Estella 2 [...] pneumothorax is suggested. Electronically authenticated by: FABRICE WEST Date: 2022-06-29 15:08 Normal [facility] CBC AUTO DIFFon 05-02-2022 BASO # 0.1 103/ul Normal 0.0-0.1 [facility] Comment on above: Performed By: #### C BC #### [facility] [address] [address] [address] Patrica Nathan Basophils/100 WBC (Bld) 0.8 % Normal 0.2-2.0 [facility] Comment on above: Performed By: #### C BC #### [facility] [address] [place] [address] Dr. Patrica Nathan EO # 0.1 103/ul Normal 0.0-0.7 [facility] Comment on above: Performed By: #### C BC #### [facility] [address] [place] [address] Dr. Patrica Nathan Eosinophils/100 WBC (Bld) 1.7 % Normal 0.9-7.0 [facility] Comment on above: Performed By: #### C BC #### [facility] [address] [place] [address] Dr. Patrica Nathan Erythrocyte distribution width (RBC) [Ratio] 14.5 % Normal 11.0-15.0 [facility] Comment on above: Performed By: #### C BC #### [facility] [address] [place] [address] Dr. Patrica Nathan Hematocrit (Bld) [Volume fraction] 45.6 % Normal 42.0-54.0 [facility] Comment on above: Performed By: #### C BC #### [facility] [address] [place] [address] Dr. Patrica Nathan Hemoglobin (Bld) [Mass/Vol] 15.3 g/dL Normal 14.0-18.0 [facility] Comment on above: Performed By: #### C BC #### [facility] [address] [place] [address] Dr. Patrica Nathan IG # 0.02 10e3/ul Normal 0.00-0.03 [facility] Comment on above: Performed By: #### C BC #### [facility] [address] [place] [address] Dr. Patrica Nathan IG % 0.3 % Normal 0.0-0.5 [facility] Comment on above: Performed By: #### C BC #### [facility] [address] [place] [address] Dr. Patrica Nathan LYMPH # 1.6 103/ul Normal 1.2-3.8 [facility] Comment on above: Performed By: #### C BC #### [facility] [address] [place] [address] Dr. Patrica Nathan Lymphocytes/100 WBC (Bld) 27.0 % Normal 20.5-60.0 [facility] Comment on above: Performed By: #### C BC #### [facility] [address] [place] [address] Dr. Patrica Nathan MANUAL DIFF REQ NO Normal [facility] Comment on above: Performed By: #### C BC #### [facility] [address] [place] [address] Dr. Patrica Nathan MCH (RBC) [Entitic mass] 29.9 pg Normal 25.9-34.0 [facility] Comment on above: Performed By: #### C BC #### [facility] [address] [place] [address] Dr. Patrica Nathan MCHC (RBC) [Mass/Vol] 33.6 g/dL Normal 29.9-35.2 [facility] Comment on above: Performed By: #### C BC #### [facility] [address] [place] [address] Dr. Patrica Nathan MCV (RBC) [Entitic vol] 89.1 fL Normal 80.0-94.0 [facility] Comment on above: Performed By: #### C BC #### [facility] [address] [place] [address] Dr. Patrica Nathan MONO # 0.6 103/ul Normal 0.3-0.8 [facility] Comment on above: Performed By: #### C BC #### [facility] [address] [place] [address] Dr. Patrica Nathan Monocytes/100 WBC (Bld) 9.8 % Normal 1.7-12.0 [facility] Comment on above: Performed By: #### C BC #### [facility] [address] [place] [address] Dr. Patrica Nathan NEUT # 3.6 103/ul Normal 1.4-6.5 [facility] Comment on above: Performed By: #### C BC #### [facility] [address] [place] [address] Dr. Patrica Nathan Neutrophils/100 WBC (Bld) 60.4 % Normal 43.0-75.0 [facility] Comment on above: Performed By: #### C BC #### [facility] [address] [place] [address] Dr. Patrica Nathan Platelet mean volume (Bld) [Entitic vol] 9.3 fL Critically low 9.5-13.5 [facility] Comment on above: Performed By: #### C BC #### [facility] [address] [place] [address] Dr. Patrica Nathan PLT 183 103/ul Normal 150-450 [facility] Comment on above: Performed By: #### C BC #### [facility] [address] [place] [address] Dr. Patrica Nathan RBC 5.12 106/ul Normal 4.70-6.10 [facility] Comment on above: Performed By: #### C BC #### [facility] [address] [place] [address] Dr. Patrica Nathan WBC 6.0 103/ul Normal 4.0-11.0 [facility] Comment on above: Performed By: #### C BC #### [facility] [address] [place] [address] ABD/PELV WO W [...] Date: 2022-05-02 10:56 Normal [facility] PROF 14(COMP METB)on 022 Albumin [Mass/Vol] 4.1 g/dL Normal 3.4-5.0 [facility] Comment on above: Performed By: #### C JV HSTROPN #### [facility] [address] [address] [address] Patrica Nathan Albumin/Globulin [Mass ratio] 1.4 {ratio} Normal [facility] Comment on above: Performed By: #### C JV HSTROPN #### [facility] [address] [address] [address] Patrica Nathan ALP [Catalytic activity/Vol] 71 U/L Normal 46-116 [facility] Comment on above: Performed By: #### C JV HSTROPN #### [facility] [address] [address] [address] Patrica Nathan ALT [Catalytic activity/Vol] 48 U/L Normal 16-63 [facility] Comment on above: Performed By: #### C JV, HSTROPN #### [facility] [address] [address] [address] Patrica Nathan Anion gap [Moles/Vol] 8.1 mmol/L Normal [facility] Comment on above: Performed By: #### C MP, HSTROPN #### [facility] [address] [address] [address] Patrica Nathan AST [Catalytic activity/Vol] 31 U/L Normal 15-37 [facility] Comment on above: Performed By: #### C MP, HSTROPN #### [facility] [address] [address] [address] Patrica Nathan Bilirubin [Mass/Vol] 1.6 mg/dL Critically high 0.2-1.0 [facility] Comment on above: Performed By: #### C MP, HSTROPN #### [facility] [address] [address] [address] Patrica Nathan Calcium [Mass/Vol] 9.4 mg/dL Normal 8.5-10.1 [facility] Comment on above: Performed By: #### C MP, HSTROPN #### [facility] [address] [address] [address] Patrica Nathan Chloride [Moles/Vol] 105 mmol/L Normal 98-107 [facility] Comment on above: Performed By: #### C MP, HSTROPN #### [facility] [address] [address] [address] Patrica Nathan CO2 [Moles/Vol] 29.0 mmol/L Normal 21.0-32.0 [facility] Comment on above: Performed By: #### C MP, HSTROPN #### [facility] [address] [address] [address] Patrica Nathan Creatinine [Mass/Vol] 1.01 mg/dL Normal 0.70-1.30 [facility] Comment on above: Performed By: #### C MP, HSTROPN #### [facility] [address] [address] [address] Patrica Nathan EGFR-AF MALIAN >60 Normal >=60 [facility] Comment on above: Performed By: #### C MP, HSTROPN #### [facility] [address] [place] [address] Dr. Patrica Nathan EGFR-NON AF MALIAN >60 Normal >=60 [facility] Comment on above: Performed By: #### C MP, HSTROPN #### [facility] [address] [place] [address] Dr. Patrica Nathan Globulin (S) [Mass/Vol] 2.9 g/dL Normal [facility] Comment on above: Performed By: #### C MP, HSTROPN #### [facility] [address] [place] [address] Dr. Patrica Nathan Glucose [Mass/Vol] 106 mg/dL Normal 74-106 [facility] Comment on above: Performed By: #### C MP, HSTROPN #### [facility] [address] [place] [address] Dr. Patrica Nathan Potassium [Moles/Vol] 4.1 mmol/L Normal 3.5-5.1 [facility] Comment on above: Performed By: #### C MP, HSTROPN #### [facility] [address] [place] [address] Dr. Patrica Nathan Protein [Mass/Vol] 7.0 g/dL Normal 6.4-8.2 [facility] Comment on above: Performed By: #### C MP, HSTROPN #### [facility] [address] [place] [address] Dr. Patrica Nathan Sodium [Moles/Vol] 138 mmol/L Normal 136-145 [facility] Comment on above: Performed By: #### C MP, HSTROPN #### [facility] [address] [place] [address] Dr. Patrica Nathan Urea nitrogen [Mass/Vol] 18.0 mg/dL Normal 7.0-18.0 [facility] Comment on above: Performed By: #### C MP, HSTROPN #### [facility] [address] [place] [address] Dr. Patrica Nathan Urea nitrogen/Creatinine [Mass ratio] 17.8 mg/mg Normal [facility] Comment on above: Performed By: #### C MP, HSTROPN #### [facility] [address] [place] [id number] [address] Patrica Nathan TSHon 05-02-2022 TSH 2.409 uIU/mL Normal 0.358-3.74 0 [facility] Comment on above: Performed By: #### T SH #### [facility] [address] [place], [place] [address] Dr. Patrica Nathan XR CHEST 2 Von [...] Date: 2022-05-02 07:44 Normal [facility] Covid-19 PCR (CVDTB)on 01-16 SARS-CoV-2 (COVID-19) RNA MARIANNE+probe Ql (Unsp spec) Not detected Normal NOT DETECTED [facility] Comment on above: Result Comment: This test is not yet approved or cleared by the [place] FDA. When there are no FDA-approved or cleared tests available, and other criteria are met, FDA can make tests available under an emergency access mechanism called an Emergency Use Authorization (EUA). The EUA for this test is supported by the Mechanical Engineering Manager of Health and Human Service's (HHS's) declaration [...] consistent with SARS-CoV-2. Performed By: #### C TB #### [facility] [address] [place] [address] Dr. Patrica Nathan Vital Signs Date Time Vital Sign Value Performing Clinician Facility 07-28-2023 13:13-0500 Blood Pressure Location [facility] 07-28-2023 13:13-0500 Diastolic blood pressure 72 mm[Hg] [facility] 07-28-2023 13:13-0500 Heart rate 72 /min [facility] 07-28-2023 13:13-0500 Respiratory rate 16 /min [facility] 07-28-2023 13:13-0500 Systolic blood pressure 118 mm[Hg] [facility] 07-01-2023 10:15-0500 Body height 187.96 cm [facility] Other [facility] [employer] Other 07-01-2023 10:15-0500 Body mass index (BMI) [Ratio] 23.13 kg/m2 [facility] Other [employer] Other 07-01-2023 10:15-0500 Body weight 81.74 kg Cisco Ball Other [employer] Other 07-01-2023 10:15-0500 Diastolic blood pressure 70 mm[Hg] Cisco Ball Other [employer] Other 07-01-2023 10:15-0500 Respiratory rate 12 /min Cisco Ball Other [employer] Other 07-01-2023 10:15-0500 Systolic blood pressure 135 mm[Hg] Cisco Ball Other [facility] [employer] Other 06-20-2023 02:33-0400 Diastolic blood pressure 74 mm[Hg] DO Cisco Ball Work Phone: [facility] 06-20-2023 02:33-0400 Heart rate 78 /min DO Cisco Ball Work Phone: [facility] 06-20-2023 02:33-0400 Respiratory rate 16 /min DO Cisco Ball Work Phone: [facility] 06-20-2023 02:33-0400 SaO2% (BldA) [Mass fraction] 96 % DO Cisco Ball Work Phone: [facility] 06-20-2023 02:33-0400 Systolic blood pressure 158 mm[Hg] DO Cisco Ball Work Phone: [facility] 06-19-2023 20:47-0400 Body height 187.96 cm DO Cisco Ball Work Phone: [facility] 06-19-2023 20:47-0400 Body temperature 97.9 [degF] DO Cisco Ball Work Phone: [facility] 06-19-2023 20:47-0400 Body weight 80.3 kg DO Cisco Ball Work Phone: [facility] 06-17-2023 15:45-0400 Body height 187.96 cm Cisco Ball Other [facility] [employer] Other 06-17-2023 15:45-0400 Body mass index (BMI) [Ratio] 23.65 kg/m2 Cisco Ball Other [employer] Other 06-17-2023 15:45-0400 Body temperature 97.3 [degF] Cisco Ball Other [employer] Other 06-17-2023 15:45-0400 Body weight 83.55 kg Cisco Ball Other [employer] Other 06-17-2023 15:45-0400 Diastolic blood pressure 57 mm[Hg] Cisco Ball Other [employer] Other 06-17-2023 15:45-0400 Respiratory rate 12 /min Cisco Ball Other [employer] Other 06-17-2023 15:45-0400 Systolic blood pressure 128 mm[Hg] Cisco Ball Other [employer] Other 05-20-2023 08:45-0400 Body height 187.96 cm Cisco Ball Other [employer] Other 05-20-2023 08:45-0400 Body mass index (BMI) [Ratio] 23.62 kg/m2 Cisco Ball Other [employer] Other 05-20-2023 08:45-0400 Body weight 83.46 kg Cisco Ball Other [employer] Other 05-20-2023 08:45-0400 Diastolic blood pressure 82 mm[Hg] Cisco Ball Other [employer] Other 05-20-2023 08:45-0400 Respiratory rate 12 /min Cisco Ball Other [employer] Other 05-20-2023 08:45-0400 Systolic blood pressure 121 mm[Hg] Cisco Ball Other [employer] Other 04-21-2023 11:30-0400 Body height 187.96 cm Cisco Ball Other [employer] Other 04-21-2023 11:30-0400 Body mass index (BMI) [Ratio] 23.34 kg/m2 Cisco Ball Other [facility] [employer] Other 04-21-2023 11:30-0400 Body weight 82.46 kg Cisco Ball Other [employer] Other 04-21-2023 11:30-0400 Diastolic blood pressure 65 mm[Hg] Cisco Ball Other [facility] [employer] Other 04-21-2023 11:30-0400 Respiratory rate 12 /min Cisco Ball Other [facility] [employer] Other 04-21-2023 11:30-0400 Systolic blood pressure 165 mm[Hg] Cisco Ball Other [place] Other 03-01-2023 08:00-0400 Diastolic blood pressure 82 mm[Hg] DO Cisco Ball Work Phone: [facility] 03-01-2023 08:00-0400 Heart rate 62 /min DO Cisco Ball Work Phone: [facility] 03-01-2023 08:00-0400 Respiratory rate 16 /min DO Cisco Ball Work Phone: [facility] 03-01-2023 08:00-0400 SaO2% (BldA) [Mass fraction] 96 % DO Cisco Ball Work Phone: [facility] 03-01-2023 08:00-0400 Systolic blood pressure 146 mm[Hg] DO Cisco Ball Work Phone: [facility] 03-01-2023 06:58-0400 Body height 187.96 cm DO Cisco Ball Work Phone: [facility] 03-01-2023 06:58-0400 Body weight 84.8 kg DO Cisco Ball Work Phone: [facility] 02-24-2023 08:30-0400 Body height 187.96 cm Cisco Ball Other [employer] Other 02-24-2023 08:30-0400 Body mass index (BMI) [Ratio] 24.21 kg/m2 Cisco Ball Other [employer] Other 02-24-2023 08:30-0400 Body weight 85.55 kg Cisco Ball Other [employer] Other 02-24-2023 08:30-0400 Diastolic blood pressure 67 mm[Hg] Cisco Ball Other [employer] Other 02-24-2023 08:30-0400 Respiratory rate 12 /min Cisco Ball Other [employer] Other 02-24-2023 08:30-0400 Systolic blood pressure 112 mm[Hg] Cisco Ball Other [employer] Other 11-21-2022 11:45-0400 Body height 187.96 cm Cisco Ball Other [employer] Other 11-21-2022 11:45-0400 Body mass index (BMI) [Ratio] 24.98 kg/m2 Cisco Ball Other [employer] Other 11-21-2022 11:45-0400 Body weight 88.27 kg Cisco Ball Other [employer] Other 11-21-2022 11:45-0400 Diastolic blood pressure 73 mm[Hg] Cisco Ball Other [employer] Other 11-21-2022 11:45-0400 Respiratory rate 12 /min Cisco Ball Other [employer] Other 11-21-2022 11:45-0400 Systolic blood pressure 147 mm[Hg] Cisco Ball Other [employer] Other 10-22-2022 08:30-0500 Body height 187.96 cm Cisco Ball Other [employer] Other 10-22-2022 08:30-0500 Body mass index (BMI) [Ratio] 24.73 kg/m2 Cisco Ball Other [employer] Other 10-22-2022 08:30-0500 Body weight 87.36 kg Cisco Ball Other [employer] Other 10-22-2022 08:30-0500 Diastolic blood pressure 64 mm[Hg] Cisco Ball Other [employer] Other 10-22-2022 08:30-0500 Respiratory rate 12 /min Cisco Ball Other [employer] Other 10-22-2022 08:30-0500 Systolic blood pressure 118 mm[Hg] Cisco Ball Other [employer] Other 10-07-2022 09:45-0500 Body height 187.96 cm Cisco Ball Other [employer] Other 10-07-2022 09:45-0500 Body mass index (BMI) [Ratio] 24.31 kg/m2 Cisco Ball Other [employer] Other 10-07-2022 09:45-0500 Body weight 85.91 kg Cisco Ball Other [employer] Other 10-07-2022 09:45-0500 Diastolic blood pressure 70 mm[Hg] Cisco Ball Other [employer] Other 10-07-2022 09:45-0500 Respiratory rate 12 /min Cisco Ball Other [facility] [employer] Other 10-07-2022 09:45-0500 Systolic blood pressure 122 mm[Hg] Cisco Ball Other [facility] [employer] Other 08-27-2022 10:48-0500 Diastolic blood pressure 82 mm[Hg] DO Cisco Ball Work Phone: [facility] 08-27-2022 10:48-0500 Heart rate 64 /min DO Cisco Ball Work Phone: [facility] 08-27-2022 10:48-0500 Respiratory rate 16 /min DO Cisco Ball Work Phone: [facility] 08-27-2022 10:48-0500 SaO2% (BldA) [Mass fraction] 96 % DO Cisco Ball Work Phone: [facility] 08-27-2022 10:48-0500 Systolic blood pressure 146 mm[Hg] DO Cisco Ball Work Phone: [facility] 08-27-2022 09:01-0500 Body height 187.96 cm DO Cisco Ball Work Phone: [facility] 08-27-2022 09:01-0500 Body temperature 97.8 [degF] DO Cisco Ball Work Phone: [facility] 08-27-2022 09:01-0500 Body weight 86.63 kg DO Cisco Ball Work Phone: [facility] Encounters Encounter Date Encounter Type Care Provider Facility Start: 08-26-2023 ambulatory Angely OCAMPO Facility :[facility] Start: 07-28-2023 End: 07-29-2023 ambulatory Angely OCAMPO Facility:[facility] Start: 07-28-2023 End: 07-28-2023 Patient encounter procedure Angely OCAMPO General Surgery [facility] Start: 07-01-2023 End: 07-01-2023 ambulatory Cisco Nicholson Other [employer] Other Start: 07-01-2023 Transitional care manage srvc 14 day discharge Cisco Nicholson [facility] Start: 06-26-2023 ambulatory Angely MCCORMICKL Facility:[facility] Start: 06-24-2023 End: 06-24-2023 ambulatory Cisco Nicholson Other [employer] Other Start: 06-24-2023 Telephone encounter Cisco Ball [facility] Start: 06-20-2023 End: 06-22-2023 Evaluation and management of inpatient Berhane Hickman Facility:[facility] Start: 06-20-2023 Evaluation and management of inpatient DO Cisco Nicholson Work Phone: [facility] Work Phone: Start: 06-20-2023 observation encounter DO Shaji Nicholson Work Phone: [facility] Work Phone: Start: 06-19-2023 End: 06-19-2023 ambulatory Cisco Nicholson Other [employer] Other Start: 06-19-2023 Telephone encounter Cisco Nicholson [facility] Start: 06-18-2023 End: 06-18-2023 ambulatory Cisco Nicholson Other [employer] Other Start: 06-18-2023 Telephone encounter Cisco Ball [facility] Start: 06-17-2023 End: 06-17-2023 ambulatory Cisco Ball Other [employer] Other Start: 06-17-2023 Office outpatient vi sit 15 minutes Cisco Ball [facility] Start: 06-17-2023 Telephone encounter Cisco Ball [facility] Start: 06-02-2023 End: 06-02-2023 ambulatory Cisco Ball Other [employer] Other Start: 06-02-2023 Telephone encounter Cisco Ball [facility] Start: 05-20-2023 End: 05-20-2023 ambulatory Cisco Ball Other [employer] Other Start: 05-20-2023 Office outpatient vi sit 25 minutes Cisco Ball [facility] Start: 05-11-2023 End: 05-11-2023 ambulatory Cisco Ball Other [employer] Other Start: 05-11-2023 Telephone encounter Cisco Ball [facility] Start: 04-27-2023 End: 04-27-2023 ambulatory Cisco Ball Other [employer] Other Start: 04-27-2023 Telephone encounter Cisco Ball [facility] Start: 04-23-2023 End: 04-23-2023 ambulatory Cisco Ball Other [employer] Other Start: 04-23-2023 Telephone encounter Cisco Ball [facility] Start: 04-21-2023 End: 04-21-2023 ambulatory Cisco Ball Other [employer] Other Start: 04-21-2023 Office outpatient vi sit 25 minutes Cisco Ball [facility] Start: 03-16-2023 End: 03-16-2023 ambulatory Cisco Abbe Other [employer] Other Start: 03-16-2023 Telephone encounter Cisco Ball [facility] Start: 03-04-2023 Telephone encounter Cisco Ball [facility] Start: 03-04-2023 End: 03-04-[address] Cisco Nicholson [employer] Other Start: 03-03-2023 End: 03-03-2023 ambulatory Cisco Ball Other [employer] Other Start: 03-03-2023 Telephone encounter Cisco Nicholson [facility] Start: 03-01-2023 End: 03-02-[address] Cisco Nicholson Facility:[id number] Start: 03-01-2023 Evaluation and management of inpatient DO Cisco Ball Work Phone: [facility] [place] [facility] Work Phone: Start: 03-01-2023 observation encounter DO Shaji Nicholson Work Phone: [facility] Work Phone: Start: 02-24-2023 End: 02-24-2023 ambulatory Cisco Abbe Other [employer] Other Start: 02-24-2023 Office outpatient vi sit 25 minutes Cisco Ball [facility] Start: 01-20-2023 End: 01-20-2023 ambulatory Cisco Nicholson Other [employer] Other Start: 01-20-2023 Telephone encounter Cisco HANNA [facility] Start: 11-26-2022 End: 11-26-2022 ambulatory EHAB [facility] Start: 11-21-2022 End: 11-21-2022 ambulatory Cisco Nicholson Other [employer] Other Start: 11-21-2022 Office outpatient vi sit 15 minutes Cisco Ball [facility] Start: 10-22-2022 End: 10-22-2022 ambulatory Cisco Ball Other [employer] Other Start: 10-22-2022 Office outpatient vi sit 25 minutes Cisco Ball [facility] Start: 10-12-2022 End: 10-12-2022 ambulatory Cisco Nicholson Facility:[facility] Start: 10-12-2022 End: 10-12-2022 ambulatory DO Cisco Nicholson Work Phone: [facility] Work Phone: Start: 10-12-2022 End: 10-12-2022 Patient encounter procedure DO Cisco Nicholson Work Phone: [facility] [place] Work Phone: Start: 10-07-2022 End: 10-07-2022 ambulatory Cisco Abbe Other [employer] Other Start: 10-07-2022 Office outpatient vi sit 15 minutes Cisco RICHARDS [facility] Start: 09-14-2022 End: 09-14-[address] CISCO NICHOLSON Facility:[facility] Start: 09-08-2022 End: 09-08-2022 ambulatory Imad Asaad Other [employer] Other Start: 09-08-2022 Telephone encounter Imad Asaad [facility] Start: 09-05-2022 End: 09-05-2022 ambulatory Cisco Nicholson Other [employer] Other Start: 09-05-2022 Telephone encounter Cisco HANNA [facility] Start: 09-03-2022 End: 09-03-2022 ambulatory Imad Asaad Other [employer] Other Start: 09-03-2022 Telephone encounter Imad Asaad [facility] Start: 09-01-2022 End: 09-01-2022 ambulatory Imad Asaad Other [employer] Other Start: 09-01-2022 Telephone encounter Imad Asaad [facility] Start: 08-27-2022 Telephone encounter Stalin HANNA [facility] Start: 08-27-2022 End: 08-27-2022 ambulatory Cisco Nicholson Facility:[facility] Start: 08-27-2022 End: 08-27-2022 Admission to same day surgery center DO Cisco Nicholson Work Phone: [facility] Work Phone: Start: 08-27-2022 End: 08-27-2022 ambulatory DO Cisco Nicholson Work Phone: [facility] Work Phone: Start: 08-22-2022 End: 08-22-2022 ambulatory Imad Asaad Other [employer] Other Start: 08-22-2022 Telephone encounter Imad Asaad [facility] Start: 08-20-2022 End: 08-20-2022 ambulatory Cisco Nicholson Other [employer] Other Start: 08-20-2022 Telephone encounter [facility] Start: 08-19-2022 End: 08-19-2022 ambulatory Cisco Nicholson Other [employer] Other Start: 08-19-2022 Telephone encounter [facility] Start: 07-28-2022 End: 07-29-[address] CISCO [...] Work Phone: Start: 08-27-2022 Esophagogastroduodenoscopy DO Cisco B all Work Phone: Start: 08-27-2022 Colonoscopy Angely OCAMPO Start: 08-27-2022 Esophagogastroduodenoscopy Angely OCAMPO Start: 07-28-2022 PSA screening MIGUEL ANGEL SLAUGHTER Comment on above: Performed By: #### PSASC #### [facility] [address] [address] [address] Patrica Nathan Cardiac catheterization Renato OCAMPO History of operative procedure on shoulder Angely OCAMPO Comment on above: x3 Repair of right inguinal hernia Angely OCAMPO Plan of Treatment Date Care Activity Detail Author Start: 06-20-2023 Plain chest X-ray XR chest 2V* [facility] Start: 06-20-2023 XR Chest 2 Views [facility] Start: 06-20-2023 Hospital admission [facility] Start: 06-20-2023 [facility] Start: 06-20-2023 CT of head without contrast CT head/brain wo con [facility] Start: 06-20-2023 CT Unspecified body region WO contrast [facility] Start: 03-01-2023 Physical therapy procedure [facility] Start: 03-01-2023 Referral to occupati onal therapist [facility] Start: 03-01-2023 Referral to neurologist [facility] Start: 03-01-2023 Hospital admission [facility] Start: 03-01-2023 [facility] Start: 08-27-2022 [facility] Helicobacter pylori Ag [Presence] in Stool by Immunoassay [facility] Patient Education Colon Polypectomy (DC) [facility] Work Phone: Immunizations Immunization Date Immunization Notes Care Provider Hugo laboy 07-01-2023 influenza, high dose seasonal, preservative-free Cisco Nicholson Other [employer] Other 07-04-2022 SARS-CoV-2 (COVID-19 ) [id number] Angely OCAMPO [facility] 06-05-2022 influenza virus vaccine, split virus (incl. purified surface antigen) Cisco Nicholson Other [employer] Other 03-28-2022 diphtheria, tetanus toxoids and acellular pertussis vaccine, unspecified formulation Cisco Nicholson Other [employer] Other 11-16-2021 SARS-CoV-2 mRNA (vyempowfbwq-jwnx-ansz ose) vaccine Angely OCAMPO [facility] 06-28-2021 influenza virus vaccine, split virus (incl. purified surface antigen) Cisco Nicholson Other [employer] Other 05-18-2021 SARS-CoV-2 (COVID-19 ) mRNA BNT-162b2 vax Angely OCAMPO [facility] Comment on above: Result Comment: 2022: [id number] 10-06-2020 SARS-CoV-2 (COVID-19 ) mRNA BNT-162b2 vax Angely OCAMPO [facility] Comment on above: Result Comment: 2022: [id number] 09-15-2020 COVID-19 Vaccine Pfizer - Documentation Purposes Only Cisco Nicholson Other [facility] Comment on above: Result Comment: 2022: [id number] 05-30-2020 influenza virus vaccine, split virus (incl. purified surface antigen) Cisco Nicholson Other [employer] Other 06-01-2019 influenza virus vaccine, split virus (incl. purified surface antigen) Cisco Nicholson Other [employer] Other 06-09-2018 influenza virus vaccine, split virus (incl. purified surface antigen) Cisco Nicholson Other [employer] Other 05-14-2017 tetanus and diphther ia toxoids, adsorbed, preservative free, for adult use (5 Lf of tetanus toxoid and 2 Lf of diphtheria toxoid) Cisco Nicholson Other [employer] Other 05-26-2016 influenza virus vaccine, split virus (incl. purified surface antigen) Cisco Abbe Other [employer] Other 11-27-2015 pneumococcal conjuga te vaccine, 13 valent Cisco Abbe Other [employer] Other 05-30-2015 influenza virus vaccine, split virus (incl. purified surface antigen) Cisco Abbe Other [employer] Other 06-14-2013 pneumococcal polysaccharide vaccine, 23 valent Cisco Nicholson Other [employer] Other 05-23-2013 tetanus and diphther ia toxoids, adsorbed, preservative free, for adult use (5 Lf of tetanus toxoid and 2 Lf of diphtheria toxoid) Cisco Abbe Other [employer] Other NEGATED: Highlighted row has not occurred!07-28-2023 influenza virus vaccine, unspecified formulation Angely OCAMPO [facility] [place] Payers Date Payer Category Payer Self-pay 1961 Medicare [id number] 1961 Unknown [id number] 1945 Unknown [id number] 2.16.84 [id number] 1945 Unknown [id number] 2.16.84 0.1.843103.3.579.2.593 1945 Unknown [id number] 2.16.84 0.1.383607.3.579.2.593 1943 Unknown [id number] 2.16.84 0.1.391008.3.579.2.593 1943 Unknown [id number] 2.16.84 0.1.022960.3.579.2.593 1943 Unknown [id number] 2.16.84 0.1.325454.3.579.2.593 1943 Unknown [id number] 2.16.84 0.1.700960.3.579.2.593 1943 Unknown [id number] 2.16.84 0.1.377022.3.579.2.593 1943 Unknown [id number] 2.16. [id number] 1943 Unknown [id number] 2.16.8 40.1.540700.3.579.2.727 1943 Unknown [id number] 2.16.8 40.1.075937.3.579.2.727 Unknown [id number] 2.16.8 40.1.553842.3.579.2.531 Unknown [id number] 2.16.8 40.1.640489.3.579.2.531 Unknown [id number] 2.16.8 40.1.888572.3.579.2.531 Unknown [id number] 2.16.8 40.1.853304.3.579.2.531 Social History Date Type Detail Facility Tobacco smoking stat [facility] Unknown if ever smoked [facility] Work Phone: Start: 1945 Sex Assigned At Male F [facility] Sex Assigned At [facility] Start: 03-01-2023 End: 07-28-2023 Tobacco smoking status NHIS Ex-smoker (finding) [facility] Tobacco smoking status Never Gener [facility] [place] Goals Date Patient Goal Desired Activity /State [...] hernia is reducible; only abd operation remote RIHR; on baby asa daily, no NSAIDs; no [...] 2 per day. (more content not included)... [facility] Comment on above: Result Comment: Elec [...] COntinue Buspar for now but discussed SSRI Jun, Peripheral polyneuropathy (ICD-10 - G62.9) Stable w/ treatment Fall precuations. Discussed tapering dose of Gabapentin [employer] Other 11-02-2023 Evaluation note* Encounter Date Diagnosis Assessment Notes Treatment Notes Treatment Clinical Notes Jun, COVID-19 (ICD-10 - U07.1) [employer] Other 11-01-2023 Evaluation note* Encounter Date Diagnosis [...] or drinking prior to bedtime. Weight loss. [employer] Other 10-04-2023 Evaluation note* Encounter Date Diagnosis [...] now. Recheck in month, consider Neurology referral [employer] Other 09-25-2023 Evaluation note* Encounter Date Diagnosis Assessment Notes Treatment Notes Treatment Clinical Notes Apr, COVID (ICD-10 - U07.1) [employer] Other 09-07-2023 Evaluation note* Encounter Date Diagnosis Assessment Notes Treatment Notes Treatment Clinical Notes Apr, Right lower quadrant abdominal pain (ICD-10 - R10.31) [employer] Other 09-05-2023 Evaluation note* Encounter Date Diagnosis [...] a trip to ER for IV hydration. [employer] Other 07-31-2023 Evaluation note* Encounter Date Diagnosis Assessment Notes Treatment Notes Treatment Clinical Notes Feb, Primary insomnia (ICD-10 - F51.01) [employer] Other 07-18-2023 Evaluation note* Encounter Date Diagnosis Assessment Notes Treatment Notes Treatment Clinical Notes Feb, Peripheral polyneuropathy (ICD-10 - G62.9) [employer] Other 07-11-2023 Evaluation note* Encounter Date Diagnosis [...] Healtlhy diet, exercise and proper sleep routine [employer] Other 06-06-2023 Evaluation note* Encounter Date Diagnosis Assessment Notes Treatment Notes Treatment Clinical Notes Jan, Peripheral polyneuropathy (ICD-10 - G62.9) [employer] Other 04-12-2023 [facility] Note Chief Complaint: Patient here [...] follow-up. PMHx: CAD, HTN, HLD Seeing an senior it specialist, was told he has glaucoma. Denies [...] 5. Follow up with me in the [facility] in 1 to 2 months. 6. Follow [...] E78.2: Mixed hyperlipidemia 3. Coronary arteriosclerosis in [place] artery - Continue medications as prescribed including aspirin, Lipitor, metoprolol I25.10: Atherosclerotic heart disease of [place] coronary artery without angina pectoris metoprolol tartrate 25 mg tablet - TAKE ONE-HALF TABLET BY MOUTH TWICE DAILY Qty: 90 tablet(s) Refills: 3 Pharmacy: [facility] (PRIMARY) Plan: Continue medi (more content not included)...[facility] 11-21-2022 Evaluation note* Encounter Date Diagnosis Assessment [...] continue exercise to achieve/maintain a normal BMI. [employer] Other 03-08-2023 Evaluation note* Encounter Date Diagnosis [...] in remission (ICD-10 - F17.211) Continue abstinence [employer] Other 02-21-2023 Evaluation note* Encounter Date Diagnosis [...] Fall precautions. Inspect feet daily for cuts. [employer] Other 01-18-2023 Evaluation note* Encounter Date Diagnosis Assessment Notes Treatment Notes Treatment Clinical Notes Aug, Helicobacter pylori (H. pylori) (ICD-10 - A04.8) [facility] [employer] Other 01-11-2023 History and physical note Author Maryjane Christensen [facility] August 27, 2022 10:16am Note Date/Time August 27, 2022 1 0:16am [facility] [address] [place] [address] Gastroenterology H&P Signed Patient: Yonatan Patel MR#: [id number] : 1945 Acct:[id number] Age/Sex: 77 / M Adm Date: 3 Loc: Room: Type: [facility] Attending Dr: Alek Oliva MD Copies [...] <Electronically signed by Maryjane Christensen MD> 08/27/[address] [place] [address] Work Phone: [phone] 138-875101-11-2023 Procedure [facility]23 Evaluation note* Encounter Date Diagnosis Assessment Notes Treatment Notes Treatment Clinical Notes Aug, Primary insomnia (ICD-10 - F51.01) [employer] Other 08-04-2022 NoteHISTORY AND PHYSICAL EXAMINATION Date:03/19/2022 [...] doing so in the near future. 3. DLCLW-50-Gdt patient was briefed in the office and [...] forward with this elective procedure.[facility] [id number] NoteOPERATIVE NOTE OPERATION DATE: 03/20/2022 SURGEON: Miguel [...] ensuring mobility, phacoemulsification was performed in a [id number]-[id number]-afxyjp-type fashion. After all nuclear material had been [...] and after satisfaction could be achieved, the biomathematician and the gonioprism were removed from the [...] following day for postoperative care.[facility] Center[facility] note Author Berhane Trammell [facility] March 01, 2023 2:24pm Note Date/Time March 01, 2023 2:24 pm [facility] [address] [place] [address] Neurology Consult Note Signed Patient: Yonatan Patel MR#: [id number] : 1945 Acct:[id number] Age/Sex: 77 / M Adm Date: 3 Loc: Room: [address] [place] [address] Type: ADM INOo Attending Dr: Bobo Villagomez MD Copies to: DO Bobo Adler MD Steven Benedict, MD~ HPI Consult Date: 03/01/23 Ekg/Ecg Technician: Berhane Trammell MD Reason for consult: Leg [...] negative unless noted below or in HPI PMFSH Vaccinated for COVID-19?: Yes Medical History (Updated [...] Selena Reid M.D.03/01/2023 9:15 AM Dictation Location: [place] [address] 03/01/23 07:02 IMPRESSION: ATROPHY AND CHRONIC MICROVASCULAR CHANGES. NO DEFINITE ACUTE INTRACRANIAL ABNORMALITY. FOLLOW-UP IS RECOMMENDED, SYMPTOMS WARRANT. COMMENT: Preliminary report was provided at 0730 hours. Impression dictated by: Selena Reid M.D.03/01/2023 8:13 AM Dictation Location: [place] [address] Therapy Recommendations Therapy Recommendations: OT Recommendations OT [...] Acute Documented By: Berhane Trammell MD 03/01/23 1416 Signed By: <Electronically signed by MD Berhane Trammell> 03/01/23 1424 [facility] Work Phone: Discharge summary Author Angely Lee [facility] March 02, 2023 5:49pm Note Date/Time March 02, 2023 5:43 pm [facility] [address] [place], [place] [id number] Discharge Summary Signed Patient: Yonatan Patel MR#: [id number] : 1945 Acct:[id number] Age/Sex: 77 / M Adm Date: 3 Loc: Room: [address] [place] [address]: Angely Lee DO Copies to: DO Angely Adler, ~ Providers Date of Discharge: 03/02/23 Discharging Provider: [...] <Electronically signed by Angely Lee DO> 03/02/23 1749 [facility] Work Phone: Evaluation + Plan note No data available for this section General Surgery [place] Evaluation noteNo assessment information available [facility] Work Phone: Evaluaafdm noteNo InformationNort [employer] Other Evaluation note* Diagnosis Onset Date Resolution Status Bilateral leg pain acute Numbness of left hand acute [facility] Work Phone: Evaluation note* Diagnosis Onset Date Resolution Status Adverse drug effect acute Altered mental status acute COVID acute Hypertension acute Lab test positive for detection of COVID-19 virus acute Neuropathy acute [facility] Work Phone: History and physical note Author Bobo Villagomez [facility] March 01, 2023 9:50am Note Date/Time March 01, 2023 9:50 am [facility] [address] [place] [address] Hospitalist H&P Signed Patient: Yonatan Patel MR#: [id number] : 1945 Acct:[id number] Age/Sex: 77 / M Adm Date: 3 Loc: Room: [address] [place] [address] Type: ADM INOo Attending Dr: Bobo Villagomez [...] as mentioned elsewhere in the documentation [facility] Medical History Cataract Hypercholesteremia Hypertension Surgical [...] % (Auto) 23.7 % (.) 03/01/23 07:06 [place] % (Auto) 8.3 % (.) 03/01/23 07:06 Eos % (Auto) 1.4 % (.) 03/01/23 07:06 Baso % (Auto) 0.7 % (.) 03/01/23 07:06 Nucleat RBC Rel Count 0.3 /100 WBC (0-0.5) 03/01/23 07:06 Neut # (Auto) 3.5 x10E3/uL (1.8-7.7) 03/01/23 07:06 Lymph # (Auto) 1.3 x10E3/uL (1.00-4.8) 03/01/23 07:06 [place] # (Auto) 0.4 x10E3/uL (0.0-0.8) 03/01/23 07:06 [...] pH 7.5 (5.0-9.0) 03/01/23 07:49 Ur Specific [place] 1.014 (1.001-1.030) 03/01/23 07:49 Urine Protein Negative [...] signed by Bobo Villagomez MD> 03/01/23 0950 [facility] Work Phone: History general Narrative - Reported* Type Description Date Medical History hypercholesterolemia Medical History hypertension Medical History anxiety Medical History Esophageal reflux Medical History glaucoma Medical History neuropathy Surgical History heart catheterization Surgical History shoulder surgery Surgical History colonoscopy with polyp resectio n 08/27/21 Surgical History EGD 08/27/21 Hospitalization History see above [employer] Other History general Narrative - Reported* Type Description Date Medical History hypercholesterolemia Medical History hypertension Medical History anxiety Medical History Esophageal reflux Medical History glaucoma Medical History neuropathy Surgical History heart catheterization Surgical History shoulder surgery Surgical History colonoscopy with polyp resectio n 08/27/22 Surgical History EGD 08/27/22 Hospitalization History see above [employer] Other Hospital Discharge instructions Additional Instructions DISCHARGE [...] NOT operate machinery such as power tools, [employer] mowers, snow blowers, sewing machines, etc. for [...] follow up with PCP - Office number [phone]. [facility] Work Phone: Hospital Discharge instructions No data available for this section General Surgery [place] Progress note Author Berhane Trammell [facility] March 02, 2023 3:27pm Note Date/Time March 02, 2023 3:23 pm [facility] [address] [place], [place] [id number] Neurology Progress Note Signed Patient: Yonatan Patel MR#: [id number] : 1945 Acct:[id number] Age/Sex: 77 / M Adm Date: 3 Loc: 3T Room: 0X6266-7 Type: ADM INOo Attending Dr: Angely Lee [...] signed by MD Berhane Trammell> 03/02/23 1527 [facility] Work Phone: Progress note No data available for this section General Surgery [place] Reason for referral (narrative)* Reason Referral for left in direct inguinal hernia Diagnosis 1 Indirect left inguin al hernia (K40.90) Referral Organization [facility] Referring Provider First Name Cisco Referring Provider Last Name Abbe Referring Provider Specialty Internal Me dicine Referred Organization [facility] Referred Provider Angely Ocampo Referred Address [address], [place],[address] Referred Provider Specialty Surgery Referral Priority Urgent General Notes Mr. Patel has a left indirect inguinal hernia w/ intermittent episodes of increased pain, abdominal distention and nausea. He has experienced 3-4 of these episodes in the past 2 weeks, with increased intensity and duration of pain. A recent episode was associated w/ a transient fever and chills. [employer] Other Reason for visit NarrativeERROR/Gastro referral issue [employer] Other Chief Complaint and Reason for Visit [...] Member Role Status Dates Cisco Nicholson , Primary Care Provider Active Team Status: Active Member Role Status Dates Cisco Nicholson , DO Primary Care Provider Active Alejo Lynn DO Emergency Provider Active Bobo Villagomez MD Admit Provider, Attending Provi jeanette Active Berhane Trammell MD Other Provider Active Team Status: Inactive Member Role Status Dates Alek Oliva MD Attending Provider Active Cisco Nicholson DO Primary Care Provider Active Team Status: Inactive Member Role Status Dates Cisco Nicholson DO Primary Care Provider Active Maryjane Christensen MD Attending Provider Active Team Status: Active Member Role Status Dates Cisco Nicholson DO Primary Care Provider Active Sandoval Palacios Jr, MD Emergency Provider Active Warren Quiroz MD Admit Provider, Attending Provider Active (unrecognized sect ion and content) No Status Records FoundNo Status Records FoundNo Status Records FoundNo Status Records FoundNo Status Records Found INFORMATION SOURCE (unrecogn ized section and content) DATE CREATED AUTHOR 09/16/2022 [facility] DATE CREATED AUTHOR AUTHOR'S ORGANIZ ATION 11/27/2022 [facility] DATE CREATED AUTHOR AUTHOR'S ORGANIZ ATION 03/05/2023 [facility] [place] DATE CREATED AUTHOR AUTHOR'S ORGANIZ ATION 06/25/2023 [facility] DATE CREATED AUTHOR AUTHOR'S ORGANIZ ATION 08/21/[address] [facility] REASON FOR VISIT (unrecogniz ed section and [...] BE BASED ON THE PRIMARY CLINICAL RECORDS. [facility]. provides no warranty or guarantee of the accuracy or completeness of information in this document.
--- NOTE | 2023-08-23 18:29 | ECG_ITS ---
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
[2023-08-23 18:42] LABS: Basophils Percent Auto 0.5 % (0.2-2.0); Eosinophils Absolute Auto 0.1 10^3/uL (0.0-0.7); Hemoglobin 13.9 g/dL (14.0-18.0); Immature Granulocytes Abs Auto 0.02 10^3/uL (0.00-0.03); Immature Granulocytes Pct Auto 0.3 % (0.0-0.5); Mean Corpuscular HGB Conc 33.1 g/dL (29.9-35.2); Mean Corpuscular Hemoglobin 29.5 pg (25.9-34.0); Mean Corpuscular Volume 89.2 fL (80.0-94.0); Mean Platelet Volume 10.1 fL (9.5-13.5); Monocytes Absolute Auto 0.4 10^3/uL (0.3-0.8); Monocytes Percent Auto 6.9 % (1.7-12.0); Neutrophils Absolute Auto 4.5 10^3/uL (1.4-6.5); Neutrophils Percent Auto 74.3 % (43.0-75.0); Platelet Count 168 10^3/uL (150-450); Red Blood Count 4.71 10^6/uL (4.70-6.10); Red Cell Distribution Width 14.3 % (11.0-15.0); White Blood Count 6.1 10^3/uL (4.0-11.0)
[2023-08-23 18:58] LABS: Alanine Aminotransferase 37 U/L (16-63); Albumin Level 3.4 g/dL (3.4-5.0); Alkaline Phosphatase 72 U/L (46-116); Aspartate Amino Transferase 30 U/L (15-37); BUN Creatinine Ratio 21.7; Carbon Dioxide 25.9 mmol/L (21.0-32.0); Chloride 103 mmol/L (98-107); Estimated GFR (African America >60 (>=60); Estimated GFR (Non-African Ame >60 (>=60); Globulin 3.4 g/dL; Glucose 176 mg/dL (74-106); Potassium 3.9 mmol/L (3.5-5.1); Sodium 137 mmol/L (136-145); Total Protein 6.8 g/dL (6.4-8.2); Troponin I High Sensitivity 9.2 pg/mL (4.0-76.1)
--- NOTE | 2023-08-23 19:13 | ED_ITS ---
HPI - General Adult General Chief complaint: Nausea/Vomiting/Diarrhea Stated complaint: NUMBNESS IN LEGS POST SURGERY Time Seen by Provider: 08/23/23 18:28 Source: patient Mode of arrival: Wheelchair Limitations: no limitations History of Present Illness HPI narrative: 78-year-old male presents for nausea and dry heaving. Four days ago he had left inguinal hernia surgery. The next day he was in this emergency department with nausea and vomiting and he went home. His apparently accidentally threw away his Zofran. He was fine yesterday and the day before yesterday but then beginning today again he's had some nausea and dry heaves. No diarrhea or fever. He has had no unusual pain at the incisional site. Related Data Home Medications Medication Instructions Recorded Confirmed atorvastatin 80 mg tablet 80 mg PO DAILY 06/19/23 08/19/23 buspirone 15 mg tablet 15 mg PO BID 06/19/23 08/19/23 gabapentin 300 mg capsule 300 mg PO QID 06/19/23 08/19/23 metoprolol tartrate 25 mg tablet 12.5 mg PO Q12H 06/19/23 08/19/23 temazepam 15 mg capsule 15 mg PO DAILY 06/19/23 08/19/23 aspirin 81 mg tablet,delayed 81 mg PO DAILY 08/07/23 08/19/23 release (Adult Aspirin Regimen) brinzolamide 1 %-brimonidine 0.2 % drp ophthalmic (eye) BID 08/07/23 eye drops,suspension (Simbrinza) latanoprost 0.005 % eye drops drp ophthalmic (eye) QPM 08/07/23 multivitamin (Daily Multi-Vitamin 1 tab PO DAILY 08/07/23 08/19/23 tablet) Previous Rx's Medication Instructions Recorded tramadol 50 mg tablet 50 mg PO Q6H PRN pain #7 tabs 08/19/23 ondansetron 4 mg disintegrating 4 mg PO Q6H PRN nausea and 08/23/23 tablet vomiting #20 tabs Allergies Allergy/AdvReac Type Severity Reaction Status Date / Time nirmatrelvir [From Paxlovid] Allergy mental Verified 08/19/23 22:02 status change ritonavir [From Paxlovid] Allergy mental Verified 08/19/23 22:02 status change Review of Systems ROS Narrative A ten point review of systems is negative except as noted above. [facility] Medical History (Updated 08/23/23 @ 20:48 by Grady Lockhart MD) Insomnia ?G47.00 - Insomnia, unspecified (ICD-10) Neuropathy ?G62.9 - Polyneuropathy, unspecified (ICD-10) Irritable bowel syndrome with constipation ?K58.1 - Irritable bowel syndrome with constipation (ICD-10) GERD (gastroesophageal reflux disease) ?K21.9 - Gastro-esophageal reflux disease without esophagitis (ICD-10) Encephalopathy ?G93.40 - Encephalopathy, unspecified (ICD-10) Cholelithiases ?K80.20 - Calculus of gallbladder without cholecystitis without obstruction (ICD-10) Colon polyp ?K63.5 - Polyp of colon (ICD-10) Glaucoma ?H40.9 - Unspecified glaucoma (ICD-10) Anxiety ?F41.9 - Anxiety disorder, unspecified (ICD-10) Rib fracture (06/2022) ?S22.39XA - Fracture of one rib, unspecified side, initial encounter for closed fracture (ICD-10) Pneumothorax (06/2022) ?J93.9 - Pneumothorax, unspecified (ICD-10) Constipation ?K59.00 - Constipation, unspecified (ICD-10) Inguinal hernia ?K40.90 - Unilateral inguinal hernia, without obstruction or gangrene, not specified as recurrent (ICD-10) Hypertension ?I10 - Essential (primary) hypertension (ICD-10) High cholesterol ?E78.00 - Pure hypercholesterolemia, unspecified (ICD-10) COVID-19 (06/17/23) ?U07.1 - COVID-19 (ICD-10) Surgical History (Updated 08/19/23 @ 09:21 by Anahi Tellez) H/O eye surgery ?Z98.890 - Other specified postprocedural states (ICD-10) History of arthroscopy of shoulder ?Z98.890 - Other specified postprocedural states (ICD-10) History of arthroscopy of shoulder ?Z98.890 - Other specified postprocedural states (ICD-10) History of cardiac catheterization ?Z98.890 - Other specified postprocedural states (ICD-10) History of arthroscopy of shoulder ?Z98.890 - Other specified postprocedural states (ICD-10) History of esophagogastroduodenoscopy (EGD) ?Z98.890 - Other specified postprocedural states (ICD-10) History of colonoscopy ?Z98.890 - Other specified postprocedural states (ICD-10) History of hernia repair ?Z98.890 - Other specified postprocedural states (ICD-10) ?Z87.19 - Personal history of other diseases of the digestive system (ICD-10) Family History (Updated 08/07/23 @ 10:22 by Ingrid Coronel NP) Other Family history of brain cancer Family history of gastric cancer Family history of myocardial infarction Social History (Updated 08/07/23 @ 10:10 by Ingrid Coronel NP) Within the past year, how often did you have a drink containing alcohol: never Score interpretation: A score less than 4 is consistent with normal alcohol consumption. Smoking status: Never smoker Non-prescribed substance use: denies use Previous occupational history: [employer] Highest level of school completed/degree received: high school graduate Exam Narrative Exam Narrative: Nurses note and vital signs reviewed and patient is not hypoxic. General: The patient appears well and in no apparent distress. Patient is resting comfortably on cart. Skin: Warm, dry, no pallor noted. There is no rash noted. Head: Normocephalic, atraumatic Eye: Normal conjunctiva, no drainage Ears, Nose, Mouth, and Throat: oral mucosa is moist. Nares patent. Cardiovascular: Regular Rate and Rhythm Respiratory: Patient is in no distress, no accessory muscle use, lungs are clear to auscultation, no wheezing, rales or rhonchi Back: non-tender GI: Normal bowel sounds, no tenderness to palpation, no masses appreciated. No rebound, guarding, or rigidity noted. incisional site in the left lower abdomen is healing well. No surrounding erythema or dehiscence. Musculoskeletal: The patient has no evidence of calf tenderness, no pitting edema, symmetrical pulses noted bilaterally Neurological: A&O, normal speech Psychiatric: Cooperative Constitutional Vital Signs, click to edit/add: Last Vital Signs Temp 97.4 F L 08/23/23 18:16 Pulse 77 08/23/23 18:43 Resp 19 08/23/23 18:43 BP 175/79 H 08/23/23 18:43 Pulse Ox 98 01/07/24 18:43 O2 Del Method Room Air 08/23/23 18:16 Course Vital Signs Vital signs: Vital Signs Temperature 97.4 F L 08/23/23 18:16 Pulse Rate 74 08/23/23 18:16 Respiratory Rate 20 08/23/23 18:16 Blood Pressure 181/85 H 08/23/23 18:16 Pulse Oximetry 97 08/23/23 18:16 Oxygen Delivery Method Room Air 08/23/23 18:16 Temperature 97.4 F L 08/23/23 18:16 Pulse Rate 77 08/23/23 18:43 Respiratory Rate 19 08/23/23 18:43 Blood Pressure 175/79 H 08/23/23 18:43 Pulse Oximetry 98 08/23/23 18:43 Oxygen Delivery Method Room Air 08/23/23 18:16 Medical Decision Making MDM Narrative Medical decision making narrative: laboratory analysis is negative. He was given some IV fluids and IV Zofran and feels much better. He is tolerating by mouth liquids and is discharged home with a prescription for Zofran. Treatment diagnosis and follow-up were discussed with the patient and his family. Differential Diagnosis Differential Diagnosis: postoperative nausea, medication side effect, urinary tract infection Lab Data Lab results reviewed: Yes I reviewed the patient's lab results Labs: Lab Results 08/23/23 08/23/23 Range/Units 18:35 18:57 WBC 6.1 (4.0-11.0) 10^3/uL RBC 4.71 (4.70-6.10) 10^6/uL Hgb 13.9 L (14.0-18.0) g/dL Hct 42.0 (42.0-54.0) % MCV 89.2 (80.0-94.0) fL MCH 29.5 (25.9-34.0) pg MCHC 33.1 (29.9-35.2) g/dL RDW 14.3 (11.0-15.0) % Plt Count 168 (150-450) 10^3/uL MPV 10.1 (9.5-13.5) fL Neut % (Auto) 74.3 (43.0-75.0) % Lymph % (Auto) 17.0 L (20.5-60.0) % [place] % (Auto) 6.9 (1.7-12.0) % Eos % (Auto) 1.0 (0.9-7.0) % Baso % (Auto) 0.5 (0.2-2.0) % Neut # (Auto) 4.5 (1.4-6.5) 10^3/uL Lymph # (Auto) 1.0 L (1.2-3.8) 10^3/uL [place] # (Auto) 0.4 (0.3-0.8) 10^3/uL Eos # (Auto) 0.1 (0.0-0.7) 10^3/uL Baso # (Auto) 0.0 (0.0-0.1) 10^3/uL Abs Immat Gran (auto) 0.02 (0.00-0.03) 10^3/uL Imm/Tot Granulo (auto) 0.3 (0.0-0.5) % Sodium 137 (136-145) mmol/L Potassium 3.9 (3.5-5.1) mmol/L Chloride 103 (98-107) mmol/L Carbon Dioxide 25.9 (21.0-32.0) mmol/L Anion Gap 12.0 BUN 20.0 H (7.0-18.0) mg/dL Creatinine 0.92 (0.70-1.30) mg/dL Est GFR ( Amer) >60 (>=60) Est GFR (Non-Af Amer) >60 (>=60) BUN/Creatinine Ratio 21.7 Glucose 176 H (74-106) mg/dL Calcium 10.0 (8.5-10.1) mg/dL Total Bilirubin 1.0 (0.2-1.0) mg/dL AST 30 (15-37) U/L ALT 37 (16-63) U/L Alkaline Phosphatase 72 (46-116) U/L Troponin I High Sens 9.2 (4.0-76.1) pg/mL Total Protein 6.8 (6.4-8.2) g/dL Albumin 3.4 (3.4-5.0) g/dL Globulin 3.4 g/dL Albumin/Globulin Ratio 1.0 Urine Color Lt. yellow (YELLOW) Urine Clarity Clear (CLEAR) Urine pH 7.5 (5.0-9.0) Ur Specific [place] 1.010 (1.005-1.025) Urine Protein Negative (NEG/TRACE) mg/dL Urine Glucose (UA) Negative (NEGATIVE) mg/dL Urine Ketones Negative (NEGATIVE) mg/dL Urine Occult Blood Negative (NEGATIVE) Urine Nitrite Negative (NEGATIVE) Urine Bilirubin Negative (NEGATIVE) Urine Urobilinogen 0.2 (0.2-1.0) EU/dL Ur Leukocyte Esterase Negative (NEGATIVE) Urine RBC 0-2 (0-2) #/HPF Urine WBC None seen (NONE SEEN) #/HPF Ur Squamous Epith Cells None seen (NONE/RARE) #/LPF Urine Crystals None seen (None Seen) #/HPF Urine Bacteria None seen (NONE SEEN) #/HPF Urine Casts None seen (NONE SEEN) #/LPF Urine Mucus None seen (NONE SEEN) Discharge Plan Discharge Chief Complaint: Nausea/Vomiting/Diarrhea Clinical Impression: Nausea Patient Disposition: Home, Self-Care Time of Disposition Decision: 20:48 Condition: Good Mode of Transportation: Private Vehicle Prescriptions / Home Meds: New ondansetron 4 mg tablet,disintegrating 4 mg PO Q6H PRN (Reason: nausea and vomiting) Qty: 20 0RF No Action Simbrinza 1-0.2 % drops,suspension OPHTHALMIC (EYE) BID latanoprost 0.005 % drops OPHTHALMIC (EYE) QPM aspirin [Adult Aspirin Regimen] 81 mg tablet,delayed release (DR/EC) 81 mg PO DAILY multivitamin [Daily Multi-Vitamin] Tablet 1 tab PO DAILY tramadol 50 mg tablet 50 mg PO Q6H MDD 200 mg PRN (Reason: pain) Qty: 7 0RF atorvastatin 80 mg tablet 80 mg PO DAILY buspirone 15 mg tablet 15 mg PO BID gabapentin 300 mg capsule 300 mg PO QID metoprolol tartrate 25 mg tablet 12.5 mg PO Q12H temazepam 15 mg capsule 15 mg PO DAILY Instructions: Acute Nausea and Vomiting (ED) Stand Alone Forms: Portal Instructions Referrals: Cisco Nicholson DO [Primary Care Provider] - 1 week
[2023-08-23 19:20] LABS: Bilirubin Urine NEGATIVE (NEGATIVE); Blood Urine NEGATIVE (NEGATIVE); Clarity Urine CLEAR (CLEAR); Color Urine LT. YELLOW (YELLOW); Glucose Urine UA NEGATIVE (NEGATIVE); Ketones Urine NEGATIVE (NEGATIVE); Leukocyte Esterase Urine NEGATIVE (NEGATIVE); Nitrite Urine NEGATIVE (NEGATIVE); Protein Urine NEGATIVE (NEG/TRACE); Urobilinogen Urine 0.2 EU/dL (0.2-1.0); pH Urine 7.5 (5.0-9.0)
[2023-08-23 19:22] LABS: Bacteria Urine NONE SEEN #/HPF (NONE SEEN); Cast Seen? NONE SEEN #/LPF (NONE SEEN); Crystals Seen? None Seen #/HPF (None Seen); Mucus Urine NONE SEEN (NONE SEEN); RBC Urine 0-2 #/HPF (0-2); Squamous Epithelial Cell Urine NONE SEEN #/LPF (NONE/RARE); WBC Urine NONE SEEN #/HPF (NONE SEEN)
[2023-08-23] MEDS: 0.9 % SODIUM CHLORIDE 500 ML IV (19:58)
[2023-08-23] MEDS: ONDANSETRON PF 4 MG/2 ML VIAL IV (19:59)
== END 2023-08-23 21:10 | disposition home or self-care (01) ==
PROVIDERS: Emergency Medicine; Emergency Provider Emergency Medicine; PCP Internal Medicine
DX: R11.0 Nausea (principal); G47.00 Insomnia, unspecified; G62.9 Polyneuropathy, unspecified; K58.1 Irritable bowel syndrome with constipation; K21.9 Gastro-esophageal reflux disease without esophagitis; F41.9 Anxiety disorder, unspecified; Z86.010 Personal history of colon polyps; I10 Essential (primary) hypertension; E78.00 Pure hypercholesterolemia, unspecified; Z86.16 Personal history of COVID-19; Z98.890 Other specified postprocedural states; Z79.899 Other long term (current) drug therapy; Z79.82 Long term (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
CPT/HCPCS: 36415; 80053; 81001; 84484; 85025; 93005; 96374; 99285; J2405

== ENCOUNTER 2023-11-16 08:28 | Emergency (ER) | payer MEDICARE, SELFPAY ==
[2023-11-16 08:35] VITALS: BP 145/74; PULSE 65; TEMP 36.5; O2SAT 100
--- OUTSIDE RECORDS SUMMARY | 2023-11-16 08:57 | XMS_ITS | CCD ---
Author Organization [facility] Care Team Providers Care Heliarc Welder Name Role Phone MD Alek Oliva Attending Provider DO Cisco Mcadams Primary Care Provider MIGUEL ANGEL JACOBSEN Attending Unavailable ANN-MARIE, MIGUEL ANGEL Admitting Unavailable ANN-MARIE, MIGUEL ANGEL Consulting Unavailable ABBE, DR JOYA Primary Care [...] Attending Unavailable ABBE, DR JOYA Admitting Unavailable ZIZINA, DR BERHANE Garcia Consulting Unavailable ABBE, DR JOYA Primary Care Unavailable MAU, MICHAEL Attending Unavailable MAU, MICHAEL Admitting Unavailable ZIZINA, DR BERHANE Garcia Consulting Unavailable BRETT, FABRICE Consulting Unavailable MAU, MICHAEL Consulting Unavailable BALL, DR JOYA Primary Care Unavailable SONG, DR DAISHA Garcia Attending Unavailable SONG, DR DAISHA Garcia Admitting Unavailable SONG, DR DAISHA Garcia Consulting Unavailable SARAHI, DR EVGENY Simons Consulting Unavailable PAY, DR MERCEDES Consulting Unavailable RODOLFO, ANGELY Consulting Unavailable ABBE, DR JOYA Primary Care Unavailable VALENTE, DR GUSMAN Attending Unavailable VALENTE, DR GUSMAN Admitting Unavailable VALENTE, DR GUSMAN Consulting Unavailable GELDAVID, ANGELY Consulting Unavailable ITKIN, PASTORA Consulting Unavailable SONG, DR DAISHA Garcia Attending Unavailable SONG, DR DAISHA Garcia Admitting Unavailable CHOCO, KATHI CORNELL Consulting Unavailable ABBE, DR OJYA Primary Care Unavailable Abbe, Cisco Unavailable Maryjane Christensen Unavailable Stalin Desai Unavailable MD Maryjane Christensen Attending Provider ZEV PRIETO Attending Unavailable Dr. Cisco Mcadams Primary Care Dr. Cisco Ivey Primary Care DO Cisco Ivey Primary Care Provider DO Alejo Lynn Emergency Provider MD Bobo Villagomez Admit Provider [phone] MD Bobo Villagomez Attending Provider MD Berhane Trammell Other Provider [phone] DO Cisco Mcadams Primary Care Provider MD Sandoval Palacios Jr Emergency Provider MD Warren Quiroz Admit Provider MD Warren Quiroz Attending Provider [phone] Cisco Mcadams Primary Care Unavailable Asaad, Imad Admitting Unavailable Maryjane Christensen Attending Unavailable Cisco Mcadams Primary Care Unavailable Angely Lee Attending Unavailable Bobo Villagomez Admitting Unavailable Berhane Trammell Consulting Unavailable Berhane Trammell Consulting Unavailable Cisco Mcadams Primary Care Unavailable Warren Quiroz Admitting Unavailable Maren Petersen Attending Unavailable Cisco Mcadams Primary Care Unavailable PjDandre bustillosn Admitting Unavailable Alek Oliva Attending Unavailable CISCO MCADAMS Primary Care Physician [phone] Angely GAGE Attending Unavailable Angely GAGE Attending Unavailable CISCO MCADAMS Referring Unavailable MIGUEL ANGEL JACOBSEN Attending Unavailable Allergies Allergy Classification Reported Allergen(s) Allergy Type Date of Onset Reaction(s) Facility (3 sources) Ritonavir; Translations: [ritonavir] Drug Allergy 3 [facility] (3 sources) nirmatrelvir; Translations: [nirmatrelvir] Propensity to adverse reactions 3 [facility] (1 source) No Known Medication Allergies; Translations: [No Known Medication Allergies] Propensity to adverse reactions (disorder) [facility] Repository Medications Current Medications Medication Drug Class(es) Dates Sig (Normalized) Sig (Original) aspirin 81 mg delayed release oral tablet (20 sources) Platelet Aggregation Inhibitor, Nonsteroidal Anti-inflammatory Drug Start: 03-01-2023 take 1 tablet by mouth once daily aspirin 81 mg Oral EC Tab 81 mg = 1 tab(s), Oral, Daily, Refills(s) 0 Start Date: 07/14/23 Status: Ordered Baby Aspirin Act karen atorvastatin 80 mg oral tablet (20 sources) HMG-CoA Reductase Inhibitor Start: 08-25-2022 take 80 mg by mouth once daily Atorvastatin Active 80 MG PO Daily August 25, 2022 1:00am Atorvastatin Sandor cium Active bacitracin 0.5 unt/mg ophtha lmic ointment (19 sources) Start: 10-27-2023 Bacitracin Act karen 1 APPLIC OPHTHALMIC Daily October 27, 2023 12:00am Start: 03-19-2019 Bacitracin 500 UNIT/GM 1 application Ophthalmic Once a day for 14 days Mar, Active bimatoprost 0.1 mg/ml ophthalmic solution (20 [...] mg/ml / brinzolamide 10 mg/ml ophthalmic suspension (6 sources) Carbonic Anhydrase Inhibitor, alpha-Adrenergic Agonist Start: 07-28-2023 take 1 drop(s) into the eye(s) twice daily Simbrinza 0.2%-1% ophthalmic suspension 1 drop(s), Eye-Both, BID, Refill(s) 0 Start Date: 07/28/23 Status: Ordered Start: 03-01-2023 take 1 drop(s) into the eye(s) twice daily Brinzolamide-Brimonidine Active 1 DROPS EYE-BOTH Twice daily March 01, 2023 12:00am brinzolamide (20 sources) Carbonic Anhydrase Inhibitor Brinzolamide Active busPIRone hydrochloride 15 mg oral tablet (20 sources) Start: take 15 mg by mouth twice daily Buspirone Active 15 MG PO Twice daily June 20, 2023 12:00am Start: 08-25-2022 End: 03-01-2023 take 15 mg by mouth once daily Buspirone Discontinued 15 MG PO Daily August 25, 2022 1:00am March 01, 2023 9:05am busPIRone HCl Ac tive cephalexin 500 mg oral capsule (20 sources) Cephalosporin Antibacterial Start: 11-21-2022 take 1 capsule by mouth twice daily Cephalexin 500 MG 1 capsule Orally twice daily for 5 days Nov, Active Start: 03-19-2019 take 1 capsule by mo ut every eight hours Cephalexin 500 MG 1 capsule Orally tid for 5 day(s) Mar, Active escitalopram 10 mg oral tablet (3 sources) Serotonin Reuptake Inhibitor Start: 10-14-2023 take 10 mg by mouth once daily Escitalopram Oxalate Active 10 MG PO Daily October 14, 2023 1:00am Start: 09-17-2023 take 1 tablet by kelly once at bedtime Escitalopram Oxalate 5 MG 1 tablet Orally q HS for 30 days Sep, Active gabapentin 300 mg oral capsule (20 sources) Anti-epileptic Agent Start: 08-25-2022 take 300 mg by mouth four times daily Gabapentin Active 300 MG PO Four times daily 40 March 02, 2023 5:25pm Start: 08-25-2022 End: 03-02-2023 take 300 mg by mouth three times daily Gabapentin Discontinued 300 MG PO Three times daily August 25, 2022 1:00am March 02, 2023 5:25pm Gabapentin Activ e irbesartan (20 sources) Angiotensin 2 Receptor Zachary Irbesartan Active latanoprost 0.05 mg/ml ophthalmic solution (8 sources) Prostaglandin Analog Start: 07-28-2023 latanoprost Opth [...] Twice a day Aug, Active Multivitamin preparation (6 sources) Start: 07-28-2023 take 1 tablet by mouth once daily multivitamin 1 tab(s), Oral, Daily, Refill(s) 0 Start Date: 07/28/23 Status: Ordered Start: 03-01-2023 take 1 tablet by kelly th once daily Multivitamin Active 1 TAB PO Daily March 01, 2023 12:00am pantoprazole 40 mg delayed release oral tablet (20 sources) Proton Pump Inhibitor Start: 09-03-2022 take 1 tablet by mouth twice daily Pantoprazole Sodium 40 MG 1 tablet Orally twice daily Aug, Active Start: 08-27-2022 take 40 mg by mouth once daily Pantoprazole Active 40 MG PO Daily March 01, 2023 12:00am paxlovid (300/100) 20 x 150 mg & 10 x 100mg tablet therapy pack (8 sources) take 3 tablets by mouth every twelve hours Paxlovid (300/100) 20 x 150 MG & 10 x 100MG 3 tablets Orally Twice a day for 5 days Active Ranitidine & Diet Manage Prod (20 sources) Ranitidine & t Manage Prod Active sulfamethoxazole 800 mg / trimethoprim 160 mg oral tablet (1 source) Dihydrofolate Reductase Inhibitor Antibacterial, Sulfonamide Antimicrobial Start: 024 take 1 tablet by mouth twice daily Sulfamethoxazole-Tr imethoprim Active 1 TAB PO Twice daily 27 02November 06, 2023 12:00am tetracycline hydrochloride 500 mg oral capsule (20 sources) Tetracycline-class Antimicrobial Start: 023 take 1 capsule by mouth four times [...] Drug Class(es) Dates Sig (Normalized) Sig (Original) Bacitracin 500 UNIT/GM (20 sources) Start: 03-19-2019 Bacitracin 500 UNIT/GM 1 application Ophthalmic Once a day for 14 days Mar, Not-Taking Start: 03-19-2019 Bacitracin 500 UNIT/GM 1 application Ophthalmic Once a day for 14 days Mar, Active metroNIDAZOLE 250 mg oral tablet (20 sources) Nitroimidazole Antimicrobial Start: 09-03-2022 End: 03-02-2023 take 250 mg by mouth four times daily Metronidazole Discontinued 250 MG PO Four times daily March 01, 2023 12:00am March 02, 2023 5:23pm Nirmatrelvir-Ritona vir (2 sources) Start: 06-20-2023 End: 06-22-2023 Nirmatrelvir-Ritona vir (Paxlovid) 300 mg (150 mg x 2)-100 mg tablets,dose pack Discontinued TAB PO June 20, 2023 12:00am June 22, 2023 7:00pm Start: 06-20-2023 Nirmatrelvir-R itonavir (Paxlovid) 300 mg (150 mg x 2)-100 mg tablets,dose pack Active TAB PO June 20, 2023 12:00am temazepam 15 mg oral capsule (20 sources) Benzodiazepine Start: 08-19-2022 End: 10-05-2023 take 15 mg by mouth at bedtime Temazepam Discontinued 15 MG PO Bedtime August 25, 2022 1:00am June 20, 2023 4:14am Temazepam Active Problems Active Problems Problem Classification Problem Date Documented Da te Episodic/Chronic Abdominal hernia (7 sources) Unilateral inguinal hernia, without obstruction or gangrene, not specified as recurrent; Translations: [Inguinal hernia] Onset: 07-28-2023 Episodic Abdominal pain (2 sources) Right lower quadrant pain Episodic Anxiety disorders (20 sources) Generalized anxiety disorder; Translations: [Generalized anxiety disorder] Chronic Biliary tract disease (20 sources) Cholelithiasis without obstruction; Translations: [Calculus of gallbladder without cholecystitis without obstruction] Episodic Blindness and vision defects (18 sources) Other visual disturbances; Translations: [Visual hallucinations] Onset: 08-02-2022 Episodic Cataract (4 sources) Age-related nuclear cataract, right eye; Translations: [AGE-REL NUCLEAR CATARACT RT EYE] Onset: 03-20-2022 Chronic Chronic obstructive pulmonary disease and bronchiectasis (4 sources) Emphysema, unspecified; Translations: [Pulmonary emphysema] Onset: 07-02-2022 07-14-2023 Chronic Conditions associated with dizziness or vertigo (4 sources) Dizziness and giddiness; Translations: [DIZZINESS AND GIDDINESS] Onset: 09-14-2022 Episodic Coronary atherosclerosis and other heart disease (2 sources) Atherosclerotic heart disease of [place] coronary artery without angina pectoris; Translations: [Atherosclerotic heart disease of [place] coronary artery without angina pectoris] Onset: 11-26-2022 Chronic Crushing injury or internal injury (1 source) Traumatic pneumothorax, initial encounter; Translations: [TRAUMATIC PNEUMOTHORAX INITIAL ENC] Onset: 07-01-2022 Episodic Disorders of lipid metabolism (20 sources) Pure hypercholesterolemia, unspecified; Translations: [Familial hypercholesterolemia] Onset: 08-02-2022 Chronic E Codes: Adverse effects of medical drugs (4 sources) Adverse reaction to drug; Translations: [Adverse [...] Translations: [Essential hypertension] Onset: 09-16-2022 Chronic Glaucoma (5 sources) Primary open-angle glaucoma, right eye, moderate [...] 03-28-2022 Episodic Other aftercare (1 source) Other halfway (current) drug therapy; Translations: [OTH GROUP HOME CURRENT DRUG THERAPY] Onset: 09-16-2022 Episodic Other aftercare (1 source) 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 inspector (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; Translations: [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 CURRENT USE OF ASPIRIN] Onset: 09-16-2022 Episodic Other and ill-defined cerebrovascular disease (10 sources) Cerebral atherosclerosis; Translations: [Cerebral atherosclerosis] 10-27-2023 Chronic Other and ill-defined cerebrovascular disease (3 sources) Cerebral atherosclerosis Chronic Other and unspecified benign neoplasm (20 sources) Adenomatous polyp of colon ; Translations: [Benign neoplasm of descending colon] 07-14-2023 Episodic Other connective tissue disease (3 sources) Pain in lower limb; Translations: [Pain [...] FX] Onset: 07-01-2022 Episodic Other gastrointestinal disorders (20 sources) Irritable bowel syndrome; Translations: [Irritable bowel syndrome without diarrhea] Chronic Other gastrointestinal disorders (1 source) Irritable bowel syndrome without diarrhea Chronic Other gastrointestinal disorders (20 sources) Irritable bowel syndrome characterized by constipation; Translations: [Irritable bowel syndrome with constipation] 07-14-2023 Chronic Other gastrointestinal disorders (1 source) Irritable bowel syndrome with constipation Chronic Other hereditary and degenerative nervous system conditions (15 sources) Impaired cognition; Translations: [Mild cognitive impairment, so stated] Chronic Other hereditary and degenerative nervous system conditions (5 sources) Mild cognitive impairment, so stated; Translations: [Mild cognitive impairment with memory loss] Onset: 06-20-2023 Chronic Other infections; including parasitic (1 source) Personal history of other infectious and parasitic diseases Episodic Other lower respiratory disease (3 sources) Pleurodynia; Translations: [PLEURODYNIA] Onset: 07-01-2022 Episodic Other nervous system disorders (20 sources) Polyneuropathy; Translations: [Polyneuropathy, unspecified] 10-26-2023 Chronic Other nervous system disorders (16 sources) Polyneuropathy, unspecified; Translations: [Mononeuritis of unspecified site] Onset: 06-20-2023 Chronic Other nervous system disorders (5 sources) Neuropathy; Translations: [Polyneuropathy, unspecified] Onset: 06-20-2023 06-20-2023 Chronic Other nervous system disorders (9 sources) Metabolic encephalopathy; Translations: [Metabolic encephalopathy] Chronic Other nervous system disorders (1 source) Metabolic encephalopathy Chronic Other nervous system disorders (4 sources) Disorder of brain; Translations: [Encephalopathy, unspecified] 07-14-2023 Chronic Other nervous system disorders (4 sources) Other disturbances of skin sensation; Translations: [OTHER DISTURBANCES SKIN SENSATION] Onset: 07-28-2022 Episodic Other nervous system disorders (3 sources) Numbness of hand; Translations: [Anesthesia of [...] conditions (not mental disorders or infectious disease) (2 sources) Encounter for screening for malignant neoplasm of prostate; Translations: [ENC SCREEN MALIG NEOPLASM PROSTATE] Onset: 08-02-2022 Episodic Pleurisy; pneumothorax; pulmonary collapse (1 source) Pleural effusion, not elsewhere classified; Translations: [PLEURAL EFFUSION NEC] Onset: 07-02-2022 Episodic Residual codes; unclassified (1 source) Disorientation, unspecified Episodic Residual codes; unclassified (2 sources) Altered mental status; Translations: [Altered mental status, [...] specified bacterial intestinal infections] Onset: 10-12-2022 Unclassified (3 sources) Body mass index 20-24 - normal 07-28-2023 Viral infection (8 sources) COVID-19; Translations: [Severe acute respiratory syndrome coronavirus 2 (SARS-CoV-2) detected] Onset: 06-20-2023 06-20-2023 Episodic Past or Other Problems Problem Classification Problem Date Documented Da te Episodic/Chronic E Codes: Cut/pierceb (1 source) Contact with other sharp object(s), not elsewhere classified, initial encounter; Translations: [[facility] OTH SHRP OB NOT ELSW CLASS INI] Onset: 04-01-2022 Episodic Esophageal disorders (6 sources) Esophageal disorders Immunizations and screening for [...] Value Interpretation Reference Range Facility Operative Reporton Operative Report [id number]#1.00TIFF [facility] RAD - MISCon 08-07-2023 RAD - MIS [id number]#1.00TIFF [facility] Consent for Procedure/Surger yon 07-29-2023 Consent for Procedure/Surgery [id number]#1.00TIFF [facility] Facesheeton 07-29-2023 Facesheet [id number]#1.00TIFF [facility] Ambulatory Visit Summaryon 1 09-28-2022 Ambulatory Visit Summary YONATAN PATEL Jose :1945 Visit Date:07/28/2023 Ambulatory Visit Instructions Your Care Team Attending Physician - TOO TEJADA, Angely Garcia Primary Care Physician - CISCO MCADAMS DO Referring Physician - CISCO MCADAMS DO This Is Your Medications List Contact [...] for choosing us for your care. [facility] Ambulatory Visit Summary YONATAN PATEL :1945 Visit Date:07/28/2023 Ambulatory Visit Instructions Your Care Team Attending Physician - Angely GAGE MD Primary Care Physician - CISCO MCADAMS DO Referring Physician - CISCO MCADAMS DO This Is Your Medications List Contact [...] for choosing us for your care. Normal [facility] Physician Referralon 023 Physician Referral [id number]#1.00TIFF Normal [facility] Basic Metabolic Panelon 11-0 Anion gap [Moles/Vol] 10.4 mmol/L Normal 6.0-15.0 [facility] Comment on above: Order Comment: FASTI NG Y Performed By: #### H S TROP, CMP, CK, CBC #### [facility] [address] [id number] [place] Calcium [Mass/Vol] 9.4 mg/dL Normal 8.6-10.3 [facility] Comment on above: Order Comment: FASTI NG Y Performed By: #### H S TROP, CMP, CK, CBC #### [facility] [address] [id number] [place] Chloride [Moles/Vol] 106 mmol/L Normal 98-107 [facility] Comment on above: Order Comment: FASTI NG Y Performed By: #### H S TROP, CMP, CK, CBC #### [facility] [address] CO2 [Moles/Vol] 28.8 mmol/L Normal 21.0-31.0 [facility] Comment on above: Order Comment: FASTI NG Y Performed By: #### H S TROP, CMP, CK, CBC #### [facility] [address] Creatinine [Mass/Vol] 0.78 mg/dL Normal 0.70-1.30 [facility] Comment on above: Order Comment: FASTI NG Y Performed By: #### H S TROP, CMP, CK, CBC #### [facility] [address] Creatinine Clr Calc Pharmacy 81.46 [facility] Comment on above: Order Comment: FASTI NG Y Performed By: #### H S TROP, CMP, CK, CBC #### [facility] [address] [place] [address] [place] GFR/1.73 sq M.predicted MDRD (S/P/Bld) [Vol rate/Area] mL/min/{1.73_m2} [facility] Comment on above: Order Comment: FASTI NG Y Performed By: #### H S TROP, CMP, CK, CBC #### [facility] [address] Glucose [Mass/Vol] 99 mg/dL Normal 70-100 [facility] Comment on above: Order Comment: FASTI NG Y Result Comment: [place] Glucose Reference Range is dependent on time and content of last meal. Glucose of more than 200 mg/dL in a nonstressed, ambulatory subject supports the diagnosis of Diabetes Mellitus. ADA recommended reference range Performed By: #### H S TROP, CMP, CK, CBC #### [facility] [address] Potassium [Moles/Vol] 4.2 mmol/L Normal 3.5-5.1 [facility] Comment on above: Order Comment: FASTI NG Y Performed By: #### H S TROP, CMP, CK, CBC #### [address] Sodium [Moles/Vol] 141 mmol/L Normal 136-145 [facility] Comment on above: Order Comment: FASTI NG Y Performed By: #### H S TROP, CMP, CK, CBC #### [address] Urea nitrogen [Mass/Vol] 16 mg/dL Normal 7-25 [facility] Comment on above: Order Comment: FASTI NG Y Performed By: #### H S TROP, CMP, CK, CBC #### [address] Complete Blood Count Auto Di ffon 06-22-2023 Basophils (Bld) [#/Vol] 0.0 10*3/uL Normal 0.0-0.2 [facility] Comment on above: Result Comment: PERF ORMED BY: [place] [address] PATHOLOGIST SURGICAL CONSULTANT HARRY MARTI M.D. Performed By: #### L IPID, [id number], PT, CBC, HEPATIC, BMP, PTT, TSH3, MG #### [address] Basophils/100 WBC (Bld) 0.4 % Normal . [facility] Comment on above: Performed By: #### L IPID, [id number], PT, CBC, HEPATIC, BMP, PTT, TSH3, MG #### [place] [address] [place] Eosinophils (Bld) [#/Vol] 0.1 10*3/uL Normal 0.0-0.45 [facility] Comment on above: Performed By: #### L IPID, [id number], PT, CBC, HEPATIC, BMP, PTT, TSH3, MG #### [place] [address] [place] Eosinophils/100 WBC (Bld) 1.2 % Normal . [facility] Comment on above: Performed By: #### L IPID, [id number], PT, CBC, HEPATIC, BMP, PTT, TSH3, MG #### [address] Erythrocyte distribution width (RBC) [Ratio] 15.2 % High 12.0-14.8 [facility] Comment on above: Performed By: #### L IPID, [id number], PT, CBC, HEPATIC, BMP, PTT, TSH3, MG #### [address] Hematocrit (Bld) [Volume fraction] 40.0 % Normal 38.8-50.0 [facility] Comment on above: Performed By: #### L IPID, [id number], PT, CBC, HEPATIC, BMP, PTT, TSH3, MG #### [address] Hemoglobin (Bld) [Mass/Vol] 13.6 g/dL Normal 13.0-17.0 [facility] Comment on above: Performed By: #### L IPID, [id number], PT, CBC, HEPATIC, BMP, PTT, TSH3, MG #### [address] Lymphocytes (Bld) [#/Vol] 1.5 10*3/uL Normal 1.00-4.8 [facility] Comment on above: Performed By: #### L IPID, [id number], PT, CBC, HEPATIC, BMP, PTT, TSH3, MG #### [address] Lymphocytes/100 WBC (Bld) 35.5 % Normal . [facility] Comment on above: Performed By: #### L IPID, [id number], PT, CBC, HEPATIC, BMP, PTT, TSH3, MG #### [address] MCH (RBC) [Entitic mass] 29.4 pg Normal 27.5-35.2 [facility] Comment on above: Performed By: #### L IPID, [id number], PT, CBC, HEPATIC, BMP, PTT, TSH3, MG #### [address] MCV (RBC) [Entitic vol] 86.7 fL Normal 83.5-101 [facility] Comment on above: Performed By: #### L IPID, [id number], PT, CBC, HEPATIC, BMP, PTT, TSH3, MG #### [address] Mean Corpuscular HGB Conc 33.9 g/dL Normal 32.5-35.6 [facility] Comment on above: Performed By: #### L IPID, [id number], PT, CBC, HEPATIC, BMP, PTT, TSH3, MG #### [address] Monocytes (Bld) [#/Vol] 0.4 10*3/uL Normal 0.0-0.8 [facility] Comment on above: Performed By: #### L IPID, [id number], PT, CBC, HEPATIC, BMP, PTT, TSH3, MG #### [address] Monocytes/100 WBC (Bld) 10.4 % Normal . [facility] Comment on above: Performed By: #### L IPID, [id number], PT, CBC, HEPATIC, BMP, PTT, TSH3, MG #### [address] Neutrophils (Bld) [#/Vol] 2.2 10*3/uL Normal 1.8-7.7 [facility] Comment on above: Performed By: #### L IPID, [id number], PT, CBC, HEPATIC, BMP, PTT, TSH3, MG #### [address] Neutrophils/100 WBC (Bld) 52.5 % Normal . [facility] Comment on above: Performed By: #### L IPID, [id number], PT, CBC, HEPATIC, BMP, PTT, TSH3, MG #### [facility] [address] NRBC% 0.1 /100{WBC} Normal 0-0.5 [facility] Comment on above: Performed By: #### L IPID, [id number], PT, CBC, HEPATIC, BMP, PTT, TSH3, MG #### [facility] [address] Platelet mean volume (Bld) [Entitic vol] 7.3 fL Normal 6.6-10.1 [facility] Comment on above: Performed By: #### L IPID, [id number], PT, CBC, HEPATIC, BMP, PTT, TSH3, MG #### [facility] [address] Platelets (Bld) [#/Vol] 153 10*3/uL Normal 150-450 [facility] Comment on above: Performed By: #### L IPID, [id number], PT, CBC, HEPATIC, BMP, PTT, TSH3, MG #### [address] RBC (Bld) [#/Vol] 4.61 10*6/uL Normal 3.90-5.60 [facility] Comment on above: Performed By: #### L IPID, [id number], PT, CBC, HEPATIC, BMP, PTT, TSH3, MG #### [facility] [address] [place] [address] WBC (Bld) [#/Vol] 4.1 10*3/uL Normal 4.1-10.5 [facility] Comment on above: Performed By: #### L IPID, [id number], PT, CBC, HEPATIC, BMP, PTT, TSH3, MG #### [address] Hepatic Panelon 06-22-2023 Albumin [Mass/Vol] 3.8 g/dL Normal 3.5-5.7 [facility] Comment on above: Order Comment: FASTI NG Y Performed By: #### H S TROP, CMP, CK, CBC #### [facility] [address] Albumin/Globulin [Mass ratio] 1.6 {ratio} Normal [facility] Comment on above: Order Comment: FASTI NG Y Performed By: #### H S TROP, CMP, CK, CBC #### [facility] [address] ALP [Catalytic activity/Vol] 57 U/L Normal 34-104 [facility] Comment on above: Order Comment: FASTI NG Y Performed By: #### H S TROP, CMP, CK, CBC #### [address] ALT [Catalytic activity/Vol] 26 U/L Normal 7-52 [facility] Comment on above: Order Comment: FASTI NG Y Performed By: #### H S TROP, CMP, CK, CBC #### [address] AST [Catalytic activity/Vol] 27 U/L Normal 13-39 [facility] Comment on above: Order Comment: FASTI NG Y Performed By: #### H S TROP, CMP, CK, CBC #### [address] Bilirubin [Mass/Vol] 1.0 mg/dL Normal 0.3-1.0 [facility] Comment on above: Order Comment: FASTI NG Y Performed By: #### H S TROP, CMP, CK, CBC #### [place] [address] [place] Bilirubin,Indirect 0.8 mg/dL Normal [facility] Comment on above: Order Comment: FASTI NG Y Performed By: #### H S TROP, CMP, CK, CBC #### [address] Bilirubin.indirect [Mass/Vol] 0.20 mg/dL High 0.03-0.18 [facility] Comment on above: Order Comment: FASTI NG Y Performed By: #### H S TROP, CMP, CK, CBC #### [facility] [address] Globulin (S) [Mass/Vol] 2.4 g/dL Normal [facility] Comment on above: Order Comment: FASTI NG Y Performed By: #### H S TROP, CMP, CK, CBC #### [facility] [address] Protein [Mass/Vol] 6.2 g/dL Low 6.4-8.9 [facility] Comment on above: Order Comment: FASTI NG Y Performed By: #### H S TROP, CMP, CK, CBC #### [facility] [address] Lipid Panelon 06-22-2023 Cholesterol [Mass/Vol] 108 mg/dL Low 140-200 [facility] Comment on above: Order Comment: FASTI NG Y Result Comment: Chol less than 200 mg/dl low risk Chol 201-239 mg/dl borderline risk Chol 240 mg/dl and greater high risk Performed By: #### H S TROP, CMP, CK, CBC #### [facility] [address] Cholesterol in HDL [Mass/Vol] 30 mg/dL Normal 23-92 [facility] Comment on above: Order Comment: FASTI NG Y Result Comment: HDL CHOL ATP-III CLASSIFICATION Cardiovascular Risk HDL > or equal to 60 mg/dL LOW HDL < 40 mg/dL HIGH Performed By: #### H S TROP, CMP, CK, CBC #### [facility] [address] Cholesterol.total/Chol esterol in HDL [Mass ratio] 3.6 {ratio} Normal <5.0 [facility] Comment on above: Order Comment: FASTI NG Y Performed By: #### H S TROP, CMP, CK, CBC #### [facility] [address] LDL Cholesterol,Calculated 54 mg/dL Normal 0-100 [facility] Comment on above: Order Comment: FASTI NG Y Result Comment: LDL ATP III CLASSIFICATION LDL less than 100 mg/dL Optimal LDL 100-129 mg/dL Near or above optimal LDL 130-159 mg/dL Borderline high LDL 160-189 mg/dL High LDL greater than 189 mg/dL Very high Performed By: #### H S TROP, CMP, CK, CBC #### [facility] [address] [place] [address] Triglyceride w/Reflex 120 mg/dL Normal 0-149 [facility] Comment on above: Order Comment: FASTBryan MCNEILL Y Result Comment: TRIG ATP III CLASSIFICATION TRIG less than 150 mg/dL Normal TRIG 150-199 mg/dL Borderline high TRIG 200-500 mg/dL High TRIG greater than 500 mg/dL Very high Standard traceable to the Center for Disease Conrtrol and Prevention (CDC) test method. Performed By: #### H S TROP, CMP, CK, CBC #### [address] VLDL CHOLESTEROL 24 mg/dL Normal [facility] Comment on above: Order Comment: SHABANA Child Performed By: #### H S TROP, CMP, CK, CBC #### [facility] [address] [place] [address] MR angio head wo conon 06-22 MR angio head wo con [facility] [place] [address] MRI Report Signed Patient: Yonatan Patel MR#: [id number] 6 : 1945 Acct:[id number] Age/Sex: 78 / M ADM Date: 06/20/23 Loc: Room: [address] [place] [address] Type: ADM IN Attending Dr: Maren Petersen MD Copies to: MD Berhane Rocha MD Ordering Provider: Berhane Trammell MD Date of Service: 06/22/23 MR/MR angio head wo con: stroke MRI/MRA BRAIN WITHOUT CONTRAST COMPARISON: CT 06/20/2023 CLINICAL DATA: Confusion Sagittal T2, axial FLAIR and diffusion-weighted imaging was performed. 3-D [id number] imaging of the [place] was also performed. There is [...] Selena Reid M.D.06/22/2023 4:25 PM Dictation Location: [place] [address] Transcribed By: [facility] 06/22/23 1625 Dictated By: Selena Reid MD 06/22/23 1617 Signed By: 06/22/23 1625 Normal [facility] Magnesiumon 06-22-2023 Magnesium [Mass/Vol] 2.1 mg/dL Normal 1.9-2.7 [facility] Comment on above: Order Comment: SHABANA Child Performed By: #### H S TROP, CMP, CK, CBC #### [address] Partial Thromboplastin Timeo n 06-22-2023 aPTT Coag (Bld) [Time] 27.4 s Normal 25.1-36.5 [facility] Comment on above: Result Comment: A he matocrit value greater than 55% may lead to inaccurate results in coagulation testing. Patients having hematocrit values >55% require a special collection tube for coagulation studies. Please contact the laboratory at [phone] for redraw instructions. PERFORMED BY: [place] [address] PATHOLOGIST SURGICAL CONSULTANT HARRY MARTI M.D. Performed By: #### H S TROP, CMP, CK, CBC #### [facility] [address] [place], [place] [id number] [place] Prothrombin Time INRon 06-22 INR Coag (PPP) [Relative time] 1.0 {INR} Normal [facility] Comment on above: Result Comment: INR [...] - 4.5 Performed By: #### L IPID, [id number], PT, CBC, HEPATIC, BMP, PTT, TSH3, MG #### [facility] [address] [place] [address] PT Coag (PPP) [Time] 11.6 s Normal 9.0-12.9 [facility] Comment on above: Result Comment: A he matocrit value greater than 55% may lead to inaccurate results in coagulation testing. Patients having hematocrit values >55% require a special collection tube for coagulation studies. Please contact the laboratory at [phone] for redraw instructions. Performed By: #### L IPID, [id number], PT, CBC, HEPATIC, BMP, PTT, TSH3, MG #### [facility] [address] [place] [address] Thyroid Stimulating Hormoneo n 06-22-2023 TSH Qn 2.38 m[IU]/L Normal 0.45-5.33 [facility] Comment on above: Order Comment: SHABANA Child Result Comment: PERF ORMED BY: [place] [address] PATHOLOGIST SURGICAL CONSULTANT HARRY MARTI M.D. Performed By: #### H S TROP, CMP, CK, CBC #### [facility] [address] [place] [address] Vit. B12/Folate Profileon Cobalamin (Vitamin B12) [Mass/Vol] 425 pg/mL Normal 180-914 [facility] Comment on above: Order Comment: SHABANA Child Performed By: #### H S TROP, CMP, CK, CBC #### [address] Folate 29.0 ng/mL Normal >5.9 [facility] Comment on above: Order Comment: SHABANA NG Y Result Comment: Aye te reference range: >5.9 ng/ml The WHO technical consultation on folate and vitamin b12 deficiencies has determined that folate concentrations less than 4 ng/ml are considered deficient. Performed By: #### H S TROP, CMP, CK, CBC #### [address] Vitamin B1 (Thiamine) Bloodo n 06-22-2023 Vitamin B1 (Thiamine) Blood 143.9 Normal 66.5-200.0 [facility] Comment on above: Result Comment: This test was developed and its performance characteristics determined by [facility]. It has not been cleared or approved by the Food and Drug Administration. Performed at: [address] [id number] Analytical Data Scientist: Juan Howard MD, Phone: [phone] PERFORMED BY: [place] [address] PATHOLOGIST SURGICAL CONSULTANT HARRY MARTI M.D. Performed By: #### V ITB1 #### [facility] Am[facility]-21-2023 Ammonia (P) [Moles/Vol] 19 umol/L Normal 11-35 [facility] Comment on above: Result Comment: PERF ORMED BY: [place] [address] PATHOLOGIST SURGICAL CONSULTANT HARRY MARTI M.D. Performed By: #### H S TROP, CMP, CK, CBC #### [address] Basic Metabolic Panelon Anion gap [Moles/Vol] 11.3 mmol/L Normal 6.0-15.0 [facility] Comment on above: Performed By: #### H S TROP, CMP, CK, CBC #### [address] Calcium [Mass/Vol] 9.4 mg/dL Normal 8.6-10.3 [facility] Comment on above: Performed By: #### H S TROP, CMP, CK, CBC #### [facility] [address] Chloride [Moles/Vol] 107 mmol/L Normal 98-107 [facility] Comment on above: Performed By: #### H S TROP, CMP, CK, CBC #### [facility] [address] CO2 [Moles/Vol] 25.7 mmol/L Normal 21.0-31.0 [facility] Comment on above: Performed By: #### H S TROP, CMP, CK, CBC #### [address] Creatinine [Mass/Vol] 0.83 mg/dL Normal 0.70-1.30 [facility] Comment on above: Performed By: #### H S TROP, CMP, CK, CBC #### [place] [address] [place] Creatinine Clr Calc Pharmacy 80.52 Normal [facility] Comment on above: Result Comment: PERF ORMED BY: [place] [address] PATHOLOGIST SURGICAL CONSULTANT HARRY MARTI M.D. Performed By: #### H S TROP, CMP, CK, CBC #### [place] [address] [place] GFR/1.73 sq M.predicted MDRD (S/P/Bld) [Vol rate/Area] mL/min/{1.73_m2} Normal [facility] Comment on above: Performed By: #### H S TROP, CMP, CK, CBC #### [address] Glucose [Mass/Vol] 174 mg/dL High 70-100 [facility] Comment on above: Result Comment: [facility] Glucose Reference Range is dependent on time and content of last meal. Glucose of more than 200 mg/dL in a nonstressed, ambulatory subject supports the diagnosis of Diabetes Mellitus. ADA recommended reference range Performed By: #### H S TROP, CMP, CK, CBC #### [address] Potassium [Moles/Vol] 4.0 mmol/L Normal 3.5-5.1 [facility] Comment on above: Performed By: #### H S TROP, CMP, CK, CBC #### [address] Sodium [Moles/Vol] 140 mmol/L Normal 136-145 [facility] Comment on above: Performed By: #### H S TROP, CMP, CK, CBC #### [address] Urea nitrogen [Mass/Vol] 11 mg/dL Normal 7-25 [facility] Comment on above: Performed By: #### H S TROP, CMP, CK, CBC #### [address] Hemogram CBC Without Diffon 06-21-2023 Erythrocyte distribution width (RBC) [Ratio] 14.7 % Normal 12.0-14.8 [facility] Comment on above: Performed By: #### H S TROP, CMP, CK, CBC #### [address] Hematocrit (Bld) [Volume fraction] 40.7 % Normal 38.8-50.0 [facility] Comment on above: Performed By: #### H S TROP, CMP, CK, CBC #### [address] Hemoglobin (Bld) [Mass/Vol] 13.9 g/dL Normal 13.0-17.0 [facility] Comment on above: Performed By: #### H S TROP, CMP, CK, CBC #### [address] MCH (RBC) [Entitic mass] 29.7 pg Normal 27.5-35.2 [facility] Comment on above: Performed By: #### H S TROP, CMP, CK, CBC #### [facility] [address] MCV (RBC) [Entitic vol] 86.8 fL Normal 83.5-101 [facility] Comment on above: Performed By: #### H S TROP, CMP, CK, CBC #### [facility] [address] Mean Corpuscular HGB Conc 34.2 g/dL Normal 32.5-35.6 [facility] Comment on above: Performed By: #### H S TROP, CMP, CK, CBC #### [address] Platelet mean volume (Bld) [Entitic vol] 7.3 fL Normal 6.6-10.1 [facility] Comment on above: Result Comment: PERF ORMED BY: [place] [address] PATHOLOGIST SURGICAL CONSULTANT HARYR MARTI M.D. Performed By: #### H S TROP, CMP, CK, CBC #### [address] Platelets (Bld) [#/Vol] 144 10*3/uL Low 150-450 [facility] Comment on above: Performed By: #### H S TROP, CMP, CK, CBC #### [address] RBC (Bld) [#/Vol] 4.69 10*6/uL Normal 3.90-5.60 [facility] Comment on above: Performed By: #### H S TROP, CMP, CK, CBC #### [place] [address] [place] WBC (Bld) [#/Vol] 3.9 10*3/uL Low 4.1-10.5 [facility] Comment on above: Performed By: #### H S TROP, CMP, CK, CBC #### [address] COVID CepheidOrdered By: Huy Palacios on 06-20-2023 SARS-CoV-2 (COVID-19) Ab IA Ql Positive Negative [facility] Comment on above: This is a duplicate Cepheid Xpert Xpress CoV-2/Flu/RSV Plus RNA by RT-PCR result to be used for statistical tracking purpose only. SARS-CoV-2 (COVID-19) RNA MARIANNE+probe Ql (Unsp spec) [facility] COVID-19 / Flu A/B / RSV [...] or Cepheid Disclaimer revoked sooner. PERFORMED BY: [place] [address] PATHOLOGIST SURGICAL CONSULTANT HARRY MARTI M.D. [facility] Comment on above: Performed By: #### H S TROP, CMP, CK, CBC #### [address] head/brain wo conon 06-20 CT head/brain wo con [facility] [place] [address] [place] [address] CT Scan Report Signed Patient: Yonatan Patel MR#: [id number] 6 : 1945 Acct:[id number] Age/Sex: 78 / M ADM Date: 06/20/23 Loc: Room: [address] [place] [address] Type: ADM INOo Attending Dr: Jassi Arias [...] Daisha Fernandez M.D.06/20/2023 8:34 AM Dictation Location: [place] [address] Transcribed By: MICHEL 06/20/23833 Dictated By: Daisha Fernandez II, MD 06/20/23829 Signed By: 06/20/23833 Normal [facility] Cepheid COVID PCR Positiveon 06-20-2023 SARS-CoV-2 (COVID-19) RNA MARIANNE+probe Ql (Unsp spec) Positive Critically abnormal Negative [facility] Comment on above: Result Comment: This is a duplicate Cepheid Xpert Xpress CoV-2/Flu/RSV Plus RNA by RT-PCR result to be used for statistical tracking purpose only. PERFORMED BY: [place] [address] PATHOLOGIST SURGICAL CONSULTANT HARRY MARTI M.D. Performed By: #### H S TROP, CMP, CK, CBC #### [address] Complete Blood Count Auto Di ffon 06-20-2023 Basophils (Bld) [#/Vol] 0.0 10*3/uL Normal 0.0-0.2 [facility] Comment on above: Result Comment: PERF ORMED BY: [place] [address] PATHOLOGIST SURGICAL CONSULTANT HARRY MARTI M.D. Performed By: #### H S TROP, CMP, CK, CBC #### [address] Basophils/100 WBC (Bld) 0.4 % Normal . [facility] Comment on above: Performed By: #### H S TROP, CMP, CK, CBC #### [address] Eosinophils (Bld) [#/Vol] 0.0 10*3/uL Normal 0.0-0.45 [facility] Comment on above: Performed By: #### H S TROP, CMP, CK, CBC #### [address] Eosinophils/100 WBC (Bld) 0.6 % Normal . [facility] Comment on above: Performed By: #### H S TROP, CMP, CK, CBC #### [address] Erythrocyte distribution width (RBC) [Ratio] 14.9 % High 12.0-14.8 [facility] Comment on above: Performed By: #### H S TROP, CMP, CK, CBC #### [address] Hematocrit (Bld) [Volume fraction] 43.3 % Normal 38.8-50.0 [facility] Comment on above: Performed By: #### H S TROP, CMP, CK, CBC #### [address] Hemoglobin (Bld) [Mass/Vol] 14.8 g/dL Normal 13.0-17.0 [facility] Comment on above: Performed By: #### H S TROP, CMP, CK, CBC #### [address] Lymphocytes (Bld) [#/Vol] 1.0 10*3/uL Normal 1.00-4.8 [facility] Comment on above: Performed By: #### H S TROP, CMP, CK, CBC #### [address] Lymphocytes/100 WBC (Bld) 20.8 % Normal . [facility] Comment on above: Performed By: #### H S TROP, CMP, CK, CBC #### [address] MCH (RBC) [Entitic mass] 30.0 pg Normal 27.5-35.2 [facility] Comment on above: Performed By: #### H S TROP, CMP, CK, CBC #### [address] MCV (RBC) [Entitic vol] 87.6 fL Normal 83.5-101 [facility] Comment on above: Performed By: #### H S TROP, CMP, CK, CBC #### [address] Mean Corpuscular HGB Conc 34.2 g/dL Normal 32.5-35.6 [facility] Comment on above: Performed By: #### H S TROP, CMP, CK, CBC #### [address] Monocytes (Bld) [#/Vol] 0.8 10*3/uL Normal 0.0-0.8 [facility] Comment on above: Performed By: #### H S TROP, CMP, CK, CBC #### [address] Monocytes/100 WBC (Bld) 24.01 % High 0.00-20.00 [facility] Comment on above: Result Comment: For adults in ED, MDW > 20.0 may be associated with a higher risk of sepsis during the first 12 hrs of hospital admission Performed By: #### H S TROP, CMP, CK, CBC #### [address] Monocytes/100 WBC (Bld) 15.6 % Normal . [facility] Comment on above: Performed By: #### H S TROP, CMP, CK, CBC #### [address] Neutrophils (Bld) [#/Vol] 3.0 10*3/uL Normal 1.8-7.7 [facility] Comment on above: Performed By: #### H S TROP, CMP, CK, CBC #### [address] Neutrophils/100 WBC (Bld) 62.6 % Normal . [facility] Comment on above: Performed By: #### H S TROP, CMP, CK, CBC #### [address] NRBC% 0.4 /100{WBC} Normal 0-0.5 [facility] Comment on above: Performed By: #### H S TROP, CMP, CK, CBC #### [address] Platelet mean volume (Bld) [Entitic vol] 7.9 fL Normal 6.6-10.1 [facility] Comment on above: Performed By: #### H S TROP, CMP, CK, CBC #### [address] Platelets (Bld) [#/Vol] 154 10*3/uL Normal 150-450 [facility] Comment on above: Performed By: #### H S TROP, CMP, CK, CBC #### [address] RBC (Bld) [#/Vol] 4.94 10*6/uL Normal 3.90-5.60 [facility] Comment on above: Performed By: #### H S TROP, CMP, CK, CBC #### [address] WBC (Bld) [#/Vol] 4.8 10*3/uL Normal 4.1-10.5 [facility] Comment on above: Performed By: #### H S TROP, CMP, CK, CBC #### [address] Comprehensive Metabolic Pane alex 06-20-2023 Albumin [Mass/Vol] 4.2 g/dL Normal 3.5-5.7 [facility] Comment on above: Performed By: #### H S TROP, CMP, CK, CBC #### [address] Albumin/Globulin [Mass ratio] 1.6 {ratio} Normal [facility] Comment on above: Performed By: #### H S TROP, CMP, CK, CBC #### [facility] [address] ALP [Catalytic activity/Vol] 53 U/L Normal 34-104 [facility] Comment on above: Performed By: #### H S TROP, CMP, CK, CBC #### [facility] [address] ALT [Catalytic activity/Vol] 31 U/L Normal 7-52 [facility] Comment on above: Performed By: #### H S TROP, CMP, CK, CBC #### [facility] [address] Anion gap [Moles/Vol] 9.2 mmol/L Normal 6.0-15.0 [facility] Comment on above: Performed By: #### H S TROP, CMP, CK, CBC #### [facility] [address] AST [Catalytic activity/Vol] 33 U/L Normal 13-39 [facility] Comment on above: Performed By: #### H S TROP, CMP, CK, CBC #### [address] Bilirubin [Mass/Vol] 1.0 mg/dL Normal 0.3-1.0 [facility] Comment on above: Performed By: #### H S TROP, CMP, CK, CBC #### [facility] [address] [place] [address] [place] Calcium [Mass/Vol] 9.8 mg/dL Normal 8.6-10.3 [facility] Comment on above: Performed By: #### H S TROP, CMP, CK, CBC #### [facility] [address] [place] [address] [place] Chloride [Moles/Vol] 107 mmol/L Normal 98-107 [facility] Comment on above: Performed By: #### H S TROP, CMP, CK, CBC #### [facility] [address] [place] [address] [place] CO2 [Moles/Vol] 25.6 mmol/L Normal 21.0-31.0 [facility] Comment on above: Performed By: #### H S TROP, CMP, CK, CBC #### [facility] [address] Creatinine [Mass/Vol] 0.95 mg/dL Normal 0.70-1.30 [facility] Comment on above: Performed By: #### H S TROP, CMP, CK, CBC #### [facility] [address] [place] [address] [place] Creatinine Clr Calc Pharmacy 70.44 [facility] Comment on above: Result Comment: PERF ORMED BY: [place] [address] PATHOLOGIST SURGICAL CONSULTANT HARRY MARTI M.D. Performed By: #### H S TROP, CMP, CK, CBC #### [address] GFR/1.73 sq M.predicted MDRD (S/P/Bld) [Vol rate/Area] mL/min/{1.73_m2} [facility] Comment on above: Performed By: #### H S TROP, CMP, CK, CBC #### [address] Globulin (S) [Mass/Vol] 2.7 g/dL [facility] Comment on above: Performed By: #### H S TROP, CMP, CK, CBC #### [address] Glucose [Mass/Vol] 94 mg/dL Normal 70-100 [facility] Comment on above: Result Comment: [place] Glucose Reference Range is dependent on time and content of last meal. Glucose of more than 200 mg/dL in a nonstressed, ambulatory subject supports the diagnosis of Diabetes Mellitus. ADA recommended reference range Performed By: #### H S TROP, CMP, CK, CBC #### [address] Potassium [Moles/Vol] 3.8 mmol/L Normal 3.5-5.1 [facility] Comment on above: Performed By: #### H S TROP, CMP, CK, CBC #### [address] Protein [Mass/Vol] 6.9 g/dL Normal 6.4-8.9 [facility] Comment on above: Performed By: #### H S TROP, CMP, CK, CBC #### [address] Sodium [Moles/Vol] 138 mmol/L Normal 136-145 [facility] Comment on above: Performed By: #### H S TROP, CMP, CK, CBC #### [address] Urea nitrogen [Mass/Vol] 18 mg/dL Normal 7-25 [facility] Comment on above: Performed By: #### H S TROP, CMP, CK, CBC #### [address] Creatine Kinaseon 06-20-2023 CK [Catalytic activity/Vol] 113 U/L Normal 30-223 [facility] Comment on above: Performed By: #### H S TROP, CMP, CK, CBC #### [address] Troponin I High Sensitivityo n 06-20-2023 Troponin I High Sensitivity 7.8 pg/mL Normal 0.0-20.0 [facility] Comment on above: Result Comment: PERF ORMED BY: [place] [address] PATHOLOGIST SURGICAL CONSULTANT HARRY MARTI M.D. Performed By: #### H S TROP, CMP, CK, CBC #### [address] Urinalysison 06-20-2023 Appearance (U) Clear Normal Clear [facility] Comment on above: Order Comment: Name Collection Type:: Clean-Voided Midstream Performed By: #### H S TROP, CMP, CK, CBC #### [address] Bilirubin,Urine Negative Normal Negative [facility] Comment on above: Order Comment: Name Collection Type:: Clean-Voided Midstream Performed By: #### H S TROP, CMP, CK, CBC #### [facility] [address] [place] [address] [place] Color (U) Yellow Normal Yellow [facility] Comment on above: Order Comment: Name Collection Type:: Clean-Voided Midstream Performed By: #### H S TROP, CMP, CK, CBC #### [facility] [address] [place] [address] [place] Glucose Ql (U) Normal Normal Normal [facility] Comment on above: Order Comment: Name Collection Type:: Clean-Voided Midstream Performed By: #### H S TROP, CMP, CK, CBC #### [address] Ketones Ql (U) Negative Normal Negative [facility] Comment on above: Order Comment: Name Collection Type:: Clean-Voided Midstream Performed By: #### H S TROP, CMP, CK, CBC #### [facility] [address] [place] [address] Leukocyte esterase Test strip Ql (U) Negative Normal Negative [facility] Comment on above: Order Comment: Name Collection Type:: Clean-Voided Midstream Performed By: #### H S TROP, CMP, CK, CBC #### [facility] [address] [place] [address] [place] Nitrite,Urine Negative Normal Negative [facility] Comment on above: Order Comment: Name Collection Type:: Clean-Voided Midstream Performed By: #### H S TROP, CMP, CK, CBC #### [facility] [address] [place] [address] [place] Occult Blood,Urine Negative Normal Negative [facility] Comment on above: Order Comment: Name Collection Type:: Clean-Voided Midstream Result Comment: PERF ORMED BY: [place] [address] PATHOLOGIST SURGICAL CONSULTANT HARRY MARTI M.D. Performed By: #### H S TROP, CMP, CK, CBC #### [address] pH (U) 5.5 [pH] Normal 5.0-9.0 [facility] Comment on above: Order Comment: Name Collection Type:: Clean-Voided Midstream Performed By: #### H S TROP, CMP, CK, CBC #### [address] Protein,Urine Negative Normal Negative [facility] Comment on above: Order Comment: Name Collection Type:: Clean-Voided Midstream Performed By: #### H S TROP, CMP, CK, CBC #### [address] Specificy [place],Urine 1.005 Normal 1.001-1.03 0 [facility] Comment on above: Order Comment: Name Collection Type:: Clean-Voided Midstream Performed By: #### H S TROP, CMP, CK, CBC #### [address] Urobilinogen,Urine Normal Normal Normal [facility] Comment on above: Order Comment: Name Collection Type:: Clean-Voided Midstream Performed By: #### H S TROP, CMP, CK, CBC #### [place] [address] [place] XR chest 2V*on 06-20-2023 XR chest 2V* [facility] [place] [address] XRay Report Signed Patient: Yonatan Patel MR#: [id number] 6 : 1945 Acct:[id number] Age/Sex: 78 / M ADM Date: 06/20/23 Loc: Room: [address] [place] [address] Type: ADM INOo Attending Dr: Jassi Arias [...] Daisha Fernandez M.D.06/20/2023 11:21 AM Dictation Location: [place] [address] Transcribed By: MICHEL 06/20/23 112 Dictated By: Daisha Fernandez II, MD 06/20/23 112 Signed By: 06/20/23 112 Normal [facility] Alanine aminotransferase [En zymatic activity/volume] in Serum or PlasmaOrdered By: PROVIDER TEMP on 06-19-2023 ALT [Catalytic activity/Vol] 31 U/L 7-52 [facility] Albumin [Mass/volume] in Ser um or Plasma by Bromocresol green (BCG) dye binding methoOrdered By: PROVIDER TEMP on 06-19-2023 Albumin BCG dye [Mass/Vol] 4.2 g/dL 3.5-5.7 [facility] Alkaline phosphatase [Enzyma tic activity/volume] in Serum or PlasmaOrdered By: PROVIDER TEMP on 06-19-2023 ALP [Catalytic activity/Vol] 53 U/L 34-104 [facility] Aspartate aminotransferase [ Enzymatic activity/volume] in Serum or PlasmaOrdered By: PROVIDER TEMP on 06-19-2023 AST [Catalytic activity/Vol] 33 U/L 13-39 [facility] Basophils Auto (Bld) [#/Vol] Ordered By: PROVIDER TEMP on 06-19-2023 Basophils (Bld) [#/Vol] 0.0 10*3/uL 0.0-0.2 [facility] Basophils/100 WBC Auto (Bld) Ordered By: PROVIDER TEMP on 06-19-2023 Basophils/100 WBC (Bld) 0.4 % . [facility] Bilirubin Auto test strip Ql (U)Ordered By: PROVIDER TEMP on 06-19-2023 Bilirubin Ql (U) Negative Negative [facility] Bilirubin.total [Mass/volume ] in Serum or PlasmaOrdered By: PROVIDER TEMP on 06-19-2023 Bilirubin [Mass/Vol] 1.0 mg/dL 0.3-1.0 [facility] Calcium [Mass/volume] in Ser um or PlasmaOrdered By: PROVIDER TEMP on 06-19-2023 Calcium [Mass/Vol] 9.8 mg/dL 8.6-10.3 [facility] Carbon dioxide, total [Moles /volume] in Serum or PlasmaOrdered By: PROVIDER TEMP on 06-19-2023 CO2 [Moles/Vol] 25.6 mmol/L 21.0-31.0 [facility] Chloride [Moles/volume] in S raymundo or PlasmaOrdered By: PROVIDER TEMP on 06-19-2023 Chloride [Moles/Vol] 107 mmol/L 98-107 [facility] Creatine kinase [Enzymatic a ctivity/volume] in Serum or PlasmaOrdered By: PROVIDER TEMP on 06-19-2023 CK [Catalytic activity/Vol] 113 U/L 30-223 [facility] Creatinine [Mass/volume] in Serum or PlasmaOrdered By: PROVIDER TEMP on 06-19-2023 Creatinine [Mass/Vol] 0.95 mg/dL 0.70-1.30 [facility] Eosinophils Auto (Bld) [#/Vo l]Ordered By: PROVIDER TEMP on 06-19-2023 Eosinophils (Bld) [#/Vol] 0.0 10*3/uL 0.0-0.45 [facility] Eosinophils/100 WBC Auto (Bl d)Ordered By: PROVIDER TEMP on 06-19-2023 Eosinophils/100 WBC (Bld) 0.6 % . [facility] Erythrocyte distribution wid th Auto (RBC) [Ratio]Ordered By: PROVIDER TEMP on 06-19-2023 Erythrocyte distribution width (RBC) [Ratio] 14.9 % 12.0-14.8 [facility] Globulin Calc (S) [Mass/Vol] Ordered By: PROVIDER TEMP on 06-19-2023 Globulin (S) [Mass/Vol] 2.7 g/dL [facility] Glucose [Mass/volume] in Ser um or PlasmaOrdered By: PROVIDER TEMP on 06-19-2023 Glucose [Mass/Vol] 94 mg/dL 70-100 [facility] Comment on above: ADA recommended refe rence rangeRandom Glucose Reference Range is dependent on time and content of last meal. Glucose of more than 200 mg/dL in a nonstressed, ambulatory subject supports the diagnosis of Diabetes Mellitus. Hematocrit Auto (Bld) [Volum e fraction]Ordered By: PROVIDER TEMP on 06-19-2023 Hematocrit (Bld) [Volume fraction] 43.3 % 38.8-50.0 [facility] Hemoglobin [Mass/volume] in BloodOrdered By: PROVIDER TEMP on 06-19-2023 Hemoglobin (Bld) [Mass/Vol] 14.8 g/dL 13.0-17.0 [facility] Ketones Auto test strip (U) [Mass/Vol]Ordered By: PROVIDER TEMP on 06-19-2023 Ketones (U) [Mass/Vol] Negative Negative [facility] Leukocytes [#/volume] correc airam for nucleated erythrocytes in Blood by Automated counOrdered By: PROVIDER TEMP on 06-19-2023 WBC corrected for nucl RBC Auto (Bld) [#/Vol] 4.8 10*3/uL 4.1-10.5 [facility] Lymphocytes Auto (Bld) [#/Vo l]Ordered By: PROVIDER TEMP on 06-19-2023 Lymphocytes (Bld) [#/Vol] 1.0 10*3/uL 1.00-4.8 [facility] Lymphocytes/100 WBC Auto (Bl d)Ordered By: PROVIDER TEMP on 06-19-2023 Lymphocytes/100 WBC (Bld) 20.8 % . [facility] MCH Auto (RBC) [Entitic mass ]Ordered By: PROVIDER TEMP on 06-19-2023 MCH (RBC) [Entitic mass] 30.0 pg 27.5-35.2 [facility] MCHC Auto (RBC) [Mass/Vol]Or dered By: PROVIDER TEMP on 06-19-2023 MCHC (RBC) [Mass/Vol] 34.2 g/dL 32.5-35.6 [facility] MCV Auto (RBC) [Entitic vol] Ordered By: PROVIDER TEMP on 06-19-2023 MCV (RBC) [Entitic vol] 87.6 fL 83.5-101 [facility] Monocyte distribution width [Entitic volume] in Blood by AutomatedOrdered By: PROVIDER TEMP on 06-19-2023 Monocyte distribution width Auto (Bld) [Entitic vol] 24.01 % 0.00-20.00 [facility] Comment on above: For adults in ED, MD W > 20.0 may be associated with a higher risk of sepsis during the first 12 hrs of hospital admission Monocytes Auto (Bld) [#/Vol] Ordered By: PROVIDER TEMP on 06-19-2023 Monocytes (Bld) [#/Vol] 0.8 10*3/uL 0.0-0.8 [facility] Monocytes/100 WBC Auto (Bld) Ordered By: PROVIDER TEMP on 06-19-2023 Monocytes/100 WBC (Bld) 15.6 % . [facility] Neutrophils Auto (Bld) [#/Vo l]Ordered By: PROVIDER TEMP on 06-19-2023 Neutrophils (Bld) [#/Vol] 3.0 10*3/uL 1.8-7.7 [facility] Neutrophils/100 WBC Auto (Bl d)Ordered By: PROVIDER TEMP on 06-19-2023 Neutrophils/100 WBC (Bld) 62.6 % . [facility] No Panel InformationOrdered By: PROVIDER TEMP on 06-19-2023 Estimated GFR (CKD-EPI) > 60.0 mL/Min [facility] Creatinine Clearance (Chem 70.44 [facility] Nucleated erythrocytes [Pres ence] in Blood by Automated countOrdered By: PROVIDER TEMP on 06-19-2023 Nucleated RBC Auto Ql (Bld) 0.4 /100{WBC} 0-0.5 [facility] Platelet mean volume Auto (B ld) [Entitic vol]Ordered By: PROVIDER TEMP on 06-19-2023 Platelet mean volume (Bld) [Entitic vol] 7.9 fL 6.6-10.1 [facility] Platelets Auto (Bld) [#/Vol] Ordered By: PROVIDER TEMP on 06-19-2023 Platelets (Bld) [#/Vol] 154 10*3/uL 150-450 [facility] Potassium [Moles/volume] in Serum or PlasmaOrdered By: PROVIDER TEMP on 06-19-2023 Potassium [Moles/Vol] 3.8 mmol/L 3.5-5.1 [facility] Protein Auto test strip (U) [Mass/Vol]Ordered By: PROVIDER TEMP on 06-19-2023 Protein (U) [Mass/Vol] Negative Negative [facility] Protein [Mass/volume] in Ser um or PlasmaOrdered By: PROVIDER TEMP on 06-19-2023 Protein [Mass/Vol] 6.9 g/dL 6.4-8.9 [facility] RBC Auto (Bld) [#/Vol]Ordere d By: PROVIDER TEMP on 06-19-2023 RBC (Bld) [#/Vol] 4.94 10*6/uL 3.90-5.60 [facility] Serum or plasma albumin/glob ulin mass ratioOrdered By: PROVIDER TEMP on 06-19-2023 Albumin/Globulin [Mass ratio] 1.6 {ratio} [facility] Serum or plasma anion gap de terminationOrdered By: PROVIDER TEMP on 06-19-2023 Anion gap [Moles/Vol] 9.2 mmol/L 6.0-15.0 [facility] Sodium [Moles/volume] in Ser um or PlasmaOrdered By: PROVIDER TEMP on 06-19-2023 Sodium [Moles/Vol] 138 mmol/L 136-145 [facility] Troponin I.cardiac [Mass/vol ume] in Serum or Plasma by Detection limit <= 0.01 ng/Ordered By: PROVIDER TEMP on 06-19-2023 Troponin I.cardiac DL <= 0.01 ng/mL [Mass/Vol] 7.8 pg/mL 0.0-20.0 [facility] Urea nitrogen [Mass/volume] in Serum or PlasmaOrdered By: PROVIDER TEMP on 06-19-2023 Urea nitrogen [Mass/Vol] 18 mg/dL 7-25 [facility] Urine appearanceOrdered By: PROVIDER TEMP on 06-19-2023 Appearance (U) Clear Clear [facility] Urine colorOrdered By: PROVI JEANETTE TEMP on 06-19-2023 Color (U) Yellow Yellow [facility] Urine glucose measurement by automated test strip (mass/volume)Ordered By: PROVIDER TEMP on 06-19-2023 Glucose Auto test strip (U) [Mass/Vol] Normal mg/dL Normal [facility] Urine hemoglobin detection b y automated test stripOrdered By: PROVIDER TEMP on 06-19-2023 Hemoglobin Auto test strip Ql (U) Negative Negative [facility] Urine leukocyte esterase det ection by automated test stripOrdered By: PROVIDER TEMP on 06-19-2023 Leukocyte esterase Auto test strip Ql (U) Negative Negative [facility] Urine nitrite detection by a utomated test stripOrdered By: PROVIDER TEMP on 06-19-2023 Nitrite Auto test strip Ql (U) Negative Negative [facility] Urobilinogen Auto test strip (U) [Mass/Vol]Ordered By: PROVIDER TEMP on 06-19-2023 Urobilinogen (U) [Mass/Vol] Normal mg/dL Normal [facility] WBC Auto (Bld) [#/Vol]Ordere d By: PROVIDER TEMP on 06-19-2023 WBC (Bld) [#/Vol] 4.8 10*3/uL 4.1-10.5 [facility] pH Auto test strip (U)Ordere d By: PROVIDER TEMP on 06-19-2023 pH (U) 1.005 [pH] 1.001-1.03 0 [facility] pH (U) 5.5 [pH] 5.0-9.0 [facility] ECH echo transthoracicon ECH echo transthoracic [facility] [place] [address] Echocardiogram Signed Patient: Yonatan Patel MR#: [id number] 6 : 1945 Acct:[id number] Age/Sex: 77 / M ADM Date: 03/01/23 Loc: Room: [address] [place] [address] Type: ADM INOo Attending Dr: Angely Lee DO Ordering Provider: Bobo Villagomez MD Date of Service: 03/01/23 [facility] echo transthoracic: Neuro Symptoms/Deficit Copies to: Sinan Sahu MD, [facility] Bobo Villagomez MD Weight: 188 lb [...] Performed At: 03/02/23 0958 Signed By: Sinan Sahu MD, FACC 03/02/23 1215 [facility] MR cervical spine wo conon 0 03-02-2023 MR cervical spine wo [facility] [place] [address] MRI Report Signed Patient: Yonatan Patel MR#: [id number] 6 : 1945 Acct:[id number] Age/Sex: 77 / M ADM Date: 03/01/23 Loc: Room: [address] [place] [address] Type: ADM INOo Attending Dr: Angely Lee [...] Daisha Fernandez M.D.03/02/2023 5:11 PM Dictation Location: [place] [address] Transcribed By: [facility] 03/02/23 171 Dictated By: Daisha Fernandez II, MD 03/02/23 170 Signed By: 03/02/231710 [facility] MR lumbar spine wo conon MR lumbar spine wo con [facility] [place] [address] MRI Report Signed Patient: Yonatan Patel MR#: [id number] 6 : 1945 Acct:[id number] Age/Sex: 77 / M ADM Date: 03/01/23 Loc: Room: [address] [place] [address] Type: ADM INOo Attending Dr: Angely Lee [...] Daisha Fernandez M.D.03/02/2023 5:18 PM Dictation Location: [place] [address] Transcribed By: [facility] 03/02/231717 Dictated By: Daisha Fernandez II, MD 03/02/23 171 Signed By: 03/02/23 171 Normal [facility] A1C with Estimated Average [facility] 03-01-2023 Glucose [Mass/Vol] 123 mg/dL Normal [facility] Comment on above: Order Comment: Comme nt add on Result Comment: PERF ORMED BY: [facility] [address] [place] [address] PATHOLOGIST SURGICAL CONSULTANT HARRY MARTI M.D. Performed By: #### A 1C WT eA, LIPID #### [facility] [address] HbA1c (Bld) [Mass fraction] 5.9 % High 4.3-5.6 [facility] Comment on above: Order Comment: Comme nt add on Result Comment: Incr eased risk for diabetes: 5.7 - 6.4 diabetes: >6.4 glycemic control for adults with diabetes: <7.0 Performed By: #### A 1C WTH eA, LIPID #### [facility] [address] Activated partial thrombopla stin time (aPTT) in platelet poor plasma by coagulation aOrdered By: Alejo Lynn on 03-01-2023 aPTT Coag (PPP) [Time] 27.2 s 25.1-36.5 [facility] Alanine aminotransferase [En zymatic activity/volume] in Serum or PlasmaOrdered By: Alejo Lynn on 03-01-2023 ALT [Catalytic activity/Vol] 34 U/L 7-52 [facility] Albumin [Mass/volume] in Ser um or Plasma by Bromocresol green (BCG) dye binding methoOrdered By: Alejo Lynn on 03-01-2023 Albumin BCG dye [Mass/Vol] 4.4 g/dL 3.5-5.7 [facility] Alkaline phosphatase [Enzyma tic activity/volume] in Serum or PlasmaOrdered By: Alejo Lynn on 03-01-2023 ALP [Catalytic activity/Vol] 61 U/L 34-104 [facility] Aspartate aminotransferase [ Enzymatic activity/volume] in Serum or PlasmaOrdered By: Alejo Lynn on 03-01-2023 AST [Catalytic activity/Vol] 30 U/L 13-39 [facility] B-Type Natriuretic Peptideon 03-01-2023 Natriuretic peptide B (Bld) [Mass/Vol] 96.0 pg/mL Normal 5-100 [facility] Comment on above: Result Comment: PERF ORMED BY: [place] [address] PATHOLOGIST SURGICAL CONSULTANT HARRY MARTI M.D. Performed By: #### H S TROP, CMP, CK, CBC #### [facility] [address] Basic Metabolic Panelon 02-14 Anion gap [Moles/Vol] 10.3 mmol/L Normal 6.0-15.0 [facility] Comment on above: Performed By: #### H S TROP, CMP, CK, CBC #### [facility] [address] Calcium [Mass/Vol] 9.7 mg/dL Normal 8.6-10.3 [facility] Comment on above: Performed By: #### H S TROP, CMP, CK, CBC #### [facility] [address] Chloride [Moles/Vol] 107 mmol/L Normal 98-107 [facility] Comment on above: Performed By: #### H S TROP, CMP, CK, CBC #### [address] CO2 [Moles/Vol] 26.0 mmol/L Normal 21.0-31.0 [facility] Comment on above: Performed By: #### H S TROP, CMP, CK, CBC #### [address] Creatinine [Mass/Vol] 0.91 mg/dL Normal 0.70-1.30 [facility] Comment on above: Performed By: #### H S TROP, CMP, CK, CBC #### [address] Creatinine Clr Calc Pharmacy 76.53 [facility] Comment on above: Result Comment: PERF ORMED BY: [place] [address] PATHOLOGIST SURGICAL CONSULTANT HARRY MARTI M.D. Performed By: #### H S TROP, CMP, CK, CBC #### [place] [address] [place] GFR/1.73 sq M.predicted MDRD (S/P/Bld) [Vol rate/Area] mL/min/{1.73_m2} [facility] Comment on above: Performed By: #### H S TROP, CMP, CK, CBC #### [facility] [address] Glucose [Mass/Vol] 106 mg/dL High 70-100 [facility] Comment on above: Result Comment: [place] Glucose Reference Range is dependent on time and content of last meal. Glucose of more than 200 mg/dL in a nonstressed, ambulatory subject supports the diagnosis of Diabetes Mellitus. ADA recommended reference range Performed By: #### H S TROP, CMP, CK, CBC #### [facility] [address] Potassium [Moles/Vol] 4.3 mmol/L Normal 3.5-5.1 [facility] Comment on above: Performed By: #### H S TROP, CMP, CK, CBC #### [facility] [address] Sodium [Moles/Vol] 139 mmol/L Normal 136-145 [facility] Comment on above: Performed By: #### H S TROP, CMP, CK, CBC #### [facility] [address] [place] [address] [place] Urea nitrogen [Mass/Vol] 16 mg/dL Normal 7-25 [facility] Comment on above: Performed By: #### H S TROP, CMP, CK, CBC #### [facility] [address] Basophils Auto (Bld) [#/Vol] Ordered By: Alejo Lynn on 03-01-2023 Basophils (Bld) [#/Vol] 0.0 10*3/uL 0.0-0.2 [facility] Basophils/100 WBC Auto (Bld) Ordered By: Alejo Lynn on 03-01-2023 Basophils/100 WBC (Bld) 0.7 % . [facility] Bilirubin Test strip Ql (U)O rdered By: Alejo Lynn on 03-01-2023 Bilirubin Ql (U) Negative Negative [facility] Bilirubin.direct [Mass/volum e] in Serum or PlasmaOrdered By: Alejo Lynn on 03-01-2023 Bilirubin.direct [Mass/Vol] 0.30 mg/dL 0.03-0.18 [facility] Bilirubin.total [Mass/volume ] in Serum or PlasmaOrdered By: Alejo Lynn on 03-01-2023 Bilirubin [Mass/Vol] 1.7 mg/dL 0.3-1.0 [facility] Comment on above: Samples from patient s who have taken Naproxen have shown spurious elevation in Total Bilirubin levels. A metabolite of Naproxen, O-desmethylnaproxen, has been shown to interfere with the [place]-Grohe method for measuring Total Bilirubin. CT head stroke alert wo cono n 03-01-2023 CT head stroke alert wo con [facility] [place] [address] [place] [address] CT Scan Report Signed Patient: Yonatan Patel MR#: [id number] 6 : 1945 Acct:[id number] Age/Sex: 77 / M ADM Date: 03/01/23 Loc: ER Room: Type: [facility] ER Attending Dr: Copies to: Alejo Lynn [...] Selena Reid M.D.03/01/2023 8:13 AM Dictation Location: [place] [address] Transcribed By: MICHEL 03/01/23812 Dictated By: Selena Reid MD 03/01/23 0807 Signed By: 03/01/23812 Normal [facility] Calcium [Mass/volume] in Ser um or PlasmaOrdered By: Alejo Lynn on 03-01-2023 Calcium [Mass/Vol] 9.7 mg/dL 8.6-10.3 [facility] Carbon dioxide, total [Moles /volume] in Serum or PlasmaOrdered By: Alejo Lynn on 03-01-2023 CO2 [Moles/Vol] 26.0 mmol/L 21.0-31.0 [facility] Chloride [Moles/volume] in S raymundo or PlasmaOrdered By: Alejo Lynn on 03-01-2023 Chloride [Moles/Vol] 107 mmol/L 98-107 [facility] Color Auto (U)Ordered By: Franco red Leah on 03-01-2023 Color (U) Yellow Yellow [facility] Complete Blood Count Auto Di ffon 03-01-2023 Basophils (Bld) [#/Vol] 0.0 10*3/uL Normal 0.0-0.2 [facility] Comment on above: Result Comment: PERF ORMED BY: [place] [address] PATHOLOGIST SURGICAL CONSULTANT HARRY MARTI M.D. Performed By: #### H S TROP, CMP, CK, CBC #### [facility] [address] [place] [address] [place] Basophils/100 WBC (Bld) 0.7 % Normal . [facility] Comment on above: Performed By: #### H S TROP, CMP, CK, CBC #### [facility] [address] [place] [address] [place] Eosinophils (Bld) [#/Vol] 0.1 10*3/uL Normal 0.0-0.45 [facility] Comment on above: Performed By: #### H S TROP, CMP, CK, CBC #### [facility] [address] [place] [address] [place] Eosinophils/100 WBC (Bld) 1.4 % Normal . [facility] Comment on above: Performed By: #### H S TROP, CMP, CK, CBC #### [address] Erythrocyte distribution width (RBC) [Ratio] 14.5 % Normal 12.0-14.8 [facility] Comment on above: Performed By: #### H S TROP, CMP, CK, CBC #### [address] Hematocrit (Bld) [Volume fraction] 43.2 % Normal 38.8-50.0 [facility] Comment on above: Performed By: #### H S TROP, CMP, CK, CBC #### [address] Hemoglobin (Bld) [Mass/Vol] 14.9 g/dL Normal 13.0-17.0 [facility] Comment on above: Performed By: #### H S TROP, CMP, CK, CBC #### [address] Lymphocytes (Bld) [#/Vol] 1.3 10*3/uL Normal 1.00-4.8 [facility] Comment on above: Performed By: #### H S TROP, CMP, CK, CBC #### [address] Lymphocytes/100 WBC (Bld) 23.7 % Normal . [facility] Comment on above: Performed By: #### H S TROP, CMP, CK, CBC #### [address] MCH (RBC) [Entitic mass] 29.6 pg Normal 27.5-35.2 [facility] Comment on above: Performed By: #### H S TROP, CMP, CK, CBC #### [address] MCV (RBC) [Entitic vol] 86.1 fL Normal 83.5-101 [facility] Comment on above: Performed By: #### H S TROP, CMP, CK, CBC #### [address] Mean Corpuscular HGB Conc 34.4 g/dL Normal 32.5-35.6 [facility] Comment on above: Performed By: #### H S TROP, CMP, CK, CBC #### [address] Monocytes (Bld) [#/Vol] 0.4 10*3/uL Normal 0.0-0.8 [facility] Comment on above: Performed By: #### H S TROP, CMP, CK, CBC #### [address] Monocytes/100 WBC (Bld) 17.75 % Normal 0.00-20.00 [facility] Comment on above: Performed By: #### H S TROP, CMP, CK, CBC #### [address] Monocytes/100 WBC (Bld) 8.3 % Normal . [facility] Comment on above: Performed By: #### H S TROP, CMP, CK, CBC #### [address] Neutrophils (Bld) [#/Vol] 3.5 10*3/uL Normal 1.8-7.7 [facility] Comment on above: Performed By: #### H S TROP, CMP, CK, CBC #### [place] [address] [place] Neutrophils/100 WBC (Bld) 65.9 % Normal . [facility] Comment on above: Performed By: #### H S TROP, CMP, CK, CBC #### [place] [address] [place] NRBC% 0.3 /100{WBC} Normal 0-0.5 [facility] Comment on above: Performed By: #### H S TROP, CMP, CK, CBC #### [place] [address] [place] Platelet mean volume (Bld) [Entitic vol] 8.0 fL Normal 6.6-10.1 [facility] Comment on above: Performed By: #### H S TROP, CMP, CK, CBC #### [facility] [address] Platelets (Bld) [#/Vol] 143 10*3/uL Low 150-450 [facility] Comment on above: Performed By: #### H S TROP, CMP, CK, CBC #### [facility] [address] RBC (Bld) [#/Vol] 5.02 10*6/uL Normal 3.90-5.60 [facility] Comment on above: Performed By: #### H S TROP, CMP, CK, CBC #### [facility] [address] WBC (Bld) [#/Vol] 5.4 10*3/uL Normal 4.1-10.5 [facility] Comment on above: Performed By: #### H S TROP, CMP, CK, CBC #### [facility] [address] Creatine Kinaseon 03-01-2023 CK [Catalytic activity/Vol] 178 U/L Normal 30-223 [facility] Comment on above: Performed By: #### H S TROP, CMP, CK, CBC #### [facility] [address] Creatine kinase [Enzymatic a ctivity/volume] in Serum or PlasmaOrdered By: Alejo Lynn on 03-01-2023 CK [Catalytic activity/Vol] 178 U/L 30-223 [facility] Creatinine [Mass/volume] in Serum or PlasmaOrdered By: Alejo Lynn on 03-01-2023 Creatinine [Mass/Vol] 0.91 mg/dL 0.70-1.30 [facility] ECG 12 lead ECGon 03-01-2023 ECG 12 lead ECG [facility] [place] [address] [place] [address] Electrocardiograph Report Signed Patient: Yonatan Patel MR#: [id number] 6 : 1945 Acct:[id number] Age/Sex: 77 / M ADM Date: 03/01/23 Loc: 3T Room: [address] [place] [address] Type: ADM INOo Attending Dr: Bobo Villagomez [...] longer present Confirmed by Alejo Lynn DO ([id number]) on 03/01/2023 3:12:57 PM Referred By: Electronically Signed By:Alejo Lynn DO Transcribed By: MUS Signed By Alejo Lynn DO 3 1513 Normal [facility] Eosinophils Auto (Bld) [#/Vo l]Ordered By: Alejo Lynn on 03-01-2023 Eosinophils (Bld) [#/Vol] 0.1 10*3/uL 0.0-0.45 [facility] Eosinophils/100 WBC Auto (Bl d)Ordered By: Alejo Lynn on 03-01-2023 Eosinophils/100 WBC (Bld) 1.4 % . [facility] Erythrocyte distribution wid th Auto (RBC) [Ratio]Ordered By: Alejo Lynn on 03-01-2023 Erythrocyte distribution width (RBC) [Ratio] 14.5 % 12.0-14.8 [facility] Globulin Calc (S) [Mass/Vol] Ordered By: Alejo Lynn on 03-01-2023 Globulin (S) [Mass/Vol] 2.3 g/dL [facility] Glucose [Mass/volume] in Ser um or PlasmaOrdered By: Alejo Lynn on 03-01-2023 Glucose [Mass/Vol] 106 mg/dL 70-100 [facility] Comment on above: ADA recommended refe rence rangeRandom Glucose Reference Range is dependent on time and content of last meal. Glucose of more than 200 mg/dL in a nonstressed, ambulatory subject supports the diagnosis of Diabetes Mellitus. Hematocrit Auto (Bld) [Volum e fraction]Ordered By: Alejo Lynn on 03-01-2023 Hematocrit (Bld) [Volume fraction] 43.2 % 38.8-50.0 [facility] Hemoglobin [Mass/volume] in BloodOrdered By: Alejo Lynn on 03-01-2023 Hemoglobin (Bld) [Mass/Vol] 14.9 g/dL 13.0-17.0 [facility] Hepatic Panelon 03-01-2023 Albumin [Mass/Vol] 4.4 g/dL Normal 3.5-5.7 [facility] Comment on above: Performed By: #### H S TROP, CMP, CK, CBC #### [facility] [address] Albumin/Globulin [Mass ratio] 1.9 {ratio} Normal [facility] Comment on above: Performed By: #### H S TROP, CMP, CK, CBC #### [facility] [address] ALP [Catalytic activity/Vol] 61 U/L Normal 34-104 [facility] Comment on above: Performed By: #### H S TROP, CMP, CK, CBC #### [facility] [address] [place] [address] [place] ALT [Catalytic activity/Vol] 34 U/L Normal 7-52 [facility] Comment on above: Performed By: #### H S TROP, CMP, CK, CBC #### [facility] [address] [place] [id number] [place] AST [Catalytic activity/Vol] 30 U/L Normal 13-39 [facility] Comment on above: Performed By: #### H S TROP, CMP, CK, CBC #### [facility] [address] [place] [address] [place] Bilirubin [Mass/Vol] 1.7 mg/dL High 0.3-1.0 [facility] Comment on above: Result Comment: Samp les from patients who have taken Naproxen have shown spurious elevation in Total Bilirubin levels. A metabolite of Naproxen, O-desmethylnaproxen, has been shown to interfere with the Jendryoletteik-Grof method for measuring Total Bilirubin. Performed By: #### H S TROP, CMP, CK, CBC #### [facility] [address] Bilirubin,Indirect 1.4 mg/dL Normal [facility] Comment on above: Performed By: #### H S TROP, CMP, CK, CBC #### [facility] [address] Bilirubin.indirect [Mass/Vol] 0.30 mg/dL High 0.03-0.18 [facility] Comment on above: Performed By: #### H S TROP, CMP, CK, CBC #### [address] Globulin (S) [Mass/Vol] 2.3 g/dL Normal [facility] Comment on above: Performed By: #### H S TROP, CMP, CK, CBC #### [address] Protein [Mass/Vol] 6.7 g/dL Normal 6.4-8.9 [facility] Comment on above: Performed By: #### H S TROP, CMP, CK, CBC #### [address] Ketones Auto test strip (U) [Mass/Vol]Ordered By: Alejo Lynn on 03-01-2023 Ketones (U) [Mass/Vol] Negative Negative [facility] - CoagulationOrde red By: Alejo Lynn on 03-01-2023 PT Coag (PPP) [Time] 11.6 s 9.0-12.9 [facility] Leukocytes [#/volume] correc airam for nucleated erythrocytes in Blood by Automated counOrdered By: Alejo Lynn on 03-01-2023 WBC corrected for nucl RBC Auto (Bld) [#/Vol] 5.4 10*3/uL 4.1-10.5 [facility] Lipid Panelon 03-01-2023 Cholesterol [Mass/Vol] 96 mg/dL Low 140-200 [facility] Comment on above: Order Comment: Comme nt add on Result Comment: Chol less than 200 mg/dl low risk Chol 201-239 mg/dl borderline risk Chol 240 mg/dl and greater high risk Performed By: #### A 1C WT Krista, LIPID #### [facility] [address] Cholesterol in HDL [Mass/Vol] 36 mg/dL Normal 23-92 [facility] Comment on above: Order Comment: Comme nt add on Result Comment: HDL CHOL ATP-III CLASSIFICATION Cardiovascular Risk HDL > or equal to 60 mg/dL LOW HDL < 40 mg/dL HIGH Performed By: #### A 1C WT Krista, LIPID #### [facility] [address] Cholesterol.total/Chol esterol in HDL [Mass ratio] 2.7 {ratio} Normal <5.0 [facility] Comment on above: Order Comment: Comme nt add on Result Comment: PERF ORMED BY: [place] [address] PATHOLOGIST SURGICAL CONSULTANT HARRY MARTI M.D. Performed By: #### A 1C WT Krista, LIPID #### [facility] [address] LDL Cholesterol,Calculated 39 mg/dL Normal 0-100 [facility] Comment on above: Order Comment: Comme nt add on Result Comment: LDL ATP III CLASSIFICATION LDL less than 100 mg/dL Optimal LDL 100-129 mg/dL Near or above optimal LDL 130-159 mg/dL Borderline high LDL 160-189 mg/dL High LDL greater than 189 mg/dL Very high Performed By: #### A 1C WT Krista, LIPID #### [facility] [address] [place] [id number] [place] Triglyceride w/Reflex 106 mg/dL Normal 0-149 [facility] Comment on above: Order Comment: Comme nt add on Result Comment: TRIG ATP III CLASSIFICATION TRIG less than 150 mg/dL Normal TRIG 150-199 mg/dL Borderline high TRIG 200-500 mg/dL High TRIG greater than 500 mg/dL Very high Standard traceable to the Center for Disease Conrtrol and Prevention (CDC) test method. Performed By: #### A [address] [facility] Krista, LIPID #### [facility] [address] VLDL CHOLESTEROL 21 mg/dL Normal [facility] Comment on above: Order Comment: Comme nt add on Performed By: #### A [address] [facility] Krista, LIPID #### [facility] [address] Lymphocytes Auto (Bld) [#/Vo l]Ordered By: Alejo Lynn on 03-01-2023 Lymphocytes (Bld) [#/Vol] 1.3 10*3/uL 1.00-4.8 [facility] Lymphocytes/100 WBC Auto (Bl d)Ordered By: Alejo Lynn on 03-01-2023 Lymphocytes/100 WBC (Bld) 23.7 % . [facility] MCH Auto (RBC) [Entitic mass ]Ordered By: Alejo Lynn on 03-01-2023 MCH (RBC) [Entitic mass] 29.6 pg 27.5-35.2 [facility] MCHC Auto (RBC) [Mass/Vol]Or dered By: Alejo Lynn on 03-01-2023 MCHC (RBC) [Mass/Vol] 34.4 g/dL 32.5-35.6 [facility] MCV Auto (RBC) [Entitic vol] Ordered By: Alejo Lynn on 03-01-2023 MCV (RBC) [Entitic vol] 86.1 fL 83.5-101 [facility] Monocyte distribution width [Entitic volume] in Blood by AutomatedOrdered By: Alejo Lynn on 03-01-2023 Monocyte distribution width Auto (Bld) [Entitic vol] 17.75 % 0.00-20.00 [facility] Monocytes Auto (Bld) [#/Vol] Ordered By: Alejo Lynn on 03-01-2023 Monocytes (Bld) [#/Vol] 0.4 10*3/uL 0.0-0.8 [facility] Monocytes/100 WBC Auto (Bld) Ordered By: Alejo Lynn on 03-01-2023 Monocytes/100 WBC (Bld) 8.3 % . [facility] Natriuretic peptide B [Mass/ Vol]Ordered By: Alejo Lynn on 03-01-2023 Natriuretic peptide B (Bld) [Mass/Vol] 96.0 pg/mL 5-100 [facility] Neutrophils Auto (Bld) [#/Vo l]Ordered By: Alejo Lynn on 03-01-2023 Neutrophils (Bld) [#/Vol] 3.5 10*3/uL 1.8-7.7 [facility] Neutrophils/100 WBC Auto (Bl d)Ordered By: Alejo Lynn on 03-01-2023 Neutrophils/100 WBC (Bld) 65.9 % . [facility] Nitrite Test strip Ql (U)Ord ered By: Alejo Lynn on 03-01-2023 Nitrite Ql (U) Negative Negative [facility] No Panel InformationOrdered By: Alejo Lynn on 03-01-2023 Estimated GFR (CKD-EPI) > 60.0 mL/Min [facility] Creatinine Clearance (Chem 76.53 [facility] Nucleated erythrocytes [Pres ence] in Blood by Automated countOrdered By: Alejo Lynn on 03-01-2023 Nucleated RBC Auto Ql (Bld) 0.3 /100{WBC} 0-0.5 [facility] Partial Thromboplastin Timeo n 03-01-2023 aPTT Coag (Bld) [Time] 27.2 s Normal 25.1-36.5 [facility] Comment on above: Result Comment: PERF ORMED BY: [place] [address] PATHOLOGIST SURGICAL CONSULTANT HARRY MARTI M.D. Performed By: #### H S TROP, CMP, CK, CBC #### [address] Platelet mean volume Auto (B ld) [Entitic vol]Ordered By: Alejo Lynn on 03-01-2023 Platelet mean volume (Bld) [Entitic vol] 8.0 fL 6.6-10.1 [facility] Platelet poor plasma interna tional normalized ratio (INR) by coagulation assay (relatOrdered By: Alejo Lynn on 03-01-2023 INR Coag (PPP) [Relative time] 1.0 {INR} [facility] Comment on above: INR Therapeutic Rang [...] 03-01-2023 Platelets (Bld) [#/Vol] 143 10*3/uL 150-450 [facility] Potassium [Moles/volume] in Serum or PlasmaOrdered By: Alejo Lynn on 03-01-2023 Potassium [Moles/Vol] 4.3 mmol/L 3.5-5.1 [facility] Protein Auto test strip (U) [Mass/Vol]Ordered By: Alejo Lynn on 03-01-2023 Protein (U) [Mass/Vol] Negative Negative [facility] Protein [Mass/volume] in Ser um or PlasmaOrdered By: Alejo Lynn on 03-01-2023 Protein [Mass/Vol] 6.7 g/dL 6.4-8.9 [facility] Prothrombin Time INRon 03-01 INR Coag (PPP) [Relative time] 1.0 {INR} Normal [facility] Comment on above: Result Comment: INR [...] H S TROP, CMP, CK, CBC #### [facility] [address] PT Coag (PPP) [Time] 11.6 s Normal 9.0-12.9 [facility] Comment on above: Performed By: #### H S TROP, CMP, CK, CBC #### [facility] [address] RBC Auto (Bld) [#/Vol]Ordere d By: Alejo Lynn on 03-01-2023 RBC (Bld) [#/Vol] 5.02 10*6/uL 3.90-5.60 [facility] Serum or plasma albumin/glob ulin mass ratioOrdered By: Alejo Lynn on 03-01-2023 Albumin/Globulin [Mass ratio] 1.9 {ratio} [facility] Serum or plasma anion gap de terminationOrdered By: Alejo Lynn on 03-01-2023 Anion gap [Moles/Vol] 10.3 mmol/L 6.0-15.0 [facility] Serum or plasma non-glucuron idated bilirubin measurement (mass/volume)Ordered By: Alejo Lynn on 03-01-2023 Bilirubin.indirect [Mass/Vol] 1.4 mg/dL [facility] Sodium [Moles/volume] in Ser um or PlasmaOrdered By: Alejo Lynn on 03-01-2023 Sodium [Moles/Vol] 139 mmol/L 136-145 [facility] Specific gravity Auto test s trip (U) [Rel density]Ordered By: Alejo Lynn on 03-01-2023 Specific gravity (U) [Rel density] 1.014 1.001-1.03 0 [facility] Troponin I High Sensitivityo n 03-01-2023 Troponin I High Sensitivity 8.1 pg/mL Normal 0.0-20.0 [facility] Comment on above: Result Comment: PERF ORMED BY: [place] [address] PATHOLOGIST SURGICAL CONSULTANT HARRY MARTI M.D. Performed By: #### H S TROP, CMP, CK, CBC #### [facility] [address] [place] [address] Troponin I.cardiac [Mass/vol ume] in Serum or Plasma by Detection limit <= 0.01 ng/Ordered By: Alejo Lynn on 03-01-2023 Troponin I.cardiac DL <= 0.01 ng/mL [Mass/Vol] 8.1 pg/mL 0.0-20.0 [facility] Urea nitrogen [Mass/volume] in Serum or PlasmaOrdered By: Alejo Lynn on 03-01-2023 Urea nitrogen [Mass/Vol] 16 mg/dL 725 [facility] Urinalysison 03-01-2023 Appearance (U) Clear Normal Clear [facility] Comment on above: Order Comment: Name Collection Type:: Clean-Voided Midstream Performed By: #### U A #### [facility] [address] [place] [address] Bilirubin,Urine Negative Normal Negative [facility] Comment on above: Order Comment: Name Collection Type:: Clean-Voided Midstream Performed By: #### U A #### [facility] [address] [place] [address] Color (U) Yellow Normal Yellow [facility] Comment on above: Order Comment: Name Collection Type:: Clean-Voided Midstream Performed By: #### U A #### [facility] [address] [place] [address] Glucose Ql (U) Normal Normal Normal [facility] Comment on above: Order Comment: Name Collection Type:: Clean-Voided Midstream Performed By: #### U A #### [facility] [address] [place] [address] [place] Ketones Ql (U) Negative Normal Negative [facility] Comment on above: Order Comment: Name Collection Type:: Clean-Voided Midstream Performed By: #### U A #### [facility] [address] [place] [address] [place] Leukocyte esterase Test strip Ql (U) Negative Normal Negative [facility] Comment on above: Order Comment: Name Collection Type:: Clean-Voided Midstream Performed By: #### U A #### [facility] [address] [place] [address] [place] Nitrite,Urine Negative Normal Negative [facility] Comment on above: Order Comment: Name Collection Type:: Clean-Voided Midstream Performed By: #### U A #### [address] Occult Blood,Urine Negative Normal Negative [facility] Comment on above: Order Comment: Name Collection Type:: Clean-Voided Midstream Result Comment: PERF ORMED BY: [place] [address] PATHOLOGIST SURGICAL CONSULTANT HARRY MARTI M.D. Performed By: #### U A #### [address] pH (U) 7.5 [pH] Normal 5.0-9.0 [facility] Comment on above: Order Comment: Name Collection Type:: Clean-Voided Midstream Performed By: #### U A #### [place] [address] [place] Protein,Urine Negative Normal Negative [facility] Comment on above: Order Comment: Name Collection Type:: Clean-Voided Midstream Performed By: #### U A #### [address] Specificy Poteet,Urine 1.014 Normal 1.001-1.03 0 [facility] Comment on above: Order Comment: Name Collection Type:: Clean-Voided Midstream Performed By: #### U A #### [facility] [address] [place] [address] [place] Urobilinogen,Urine Normal Normal Normal [facility] Comment on above: Order Comment: Name Collection Type:: Clean-Voided Midstream Performed By: #### U A #### [address] Urine clarity by refractomet ry automatedOrdered By: Alejo Lynn on 03-01-2023 Clarity Refractometry automated (U) Clear Clear [facility] Urine glucose measurement by automated test strip (mass/volume)Ordered By: Alejo Lynn on 03-01-2023 Glucose Auto test strip (U) [Mass/Vol] Normal mg/dL Normal [facility] Urine hemoglobin detection b y automated test stripOrdered By: Alejo Lynn on 03-01-2023 Hemoglobin Auto test strip Ql (U) Negative Negative [facility] Urine leukocyte esterase det ection by automated test stripOrdered By: Alejo Lynn on 03-01-2023 Leukocyte esterase Auto test strip Ql (U) Negative Negative [facility] Urobilinogen Auto test strip (U) [Mass/Vol]Ordered By: Alejo Lynn on 03-01-2023 Urobilinogen (U) [Mass/Vol] Normal mg/dL Normal [facility] WBC Auto (Bld) [#/Vol]Ordere d By: Alejo Lynn on 03-01-2023 WBC (Bld) [#/Vol] 5.4 10*3/uL 4.1-10.5 [facility] XR chest 1V portableon 03-01 XR chest 1V portable [facility] [place] [address] XRay Report Signed Patient: Yonatan Patel MR#: [id number] 6 : 1945 Acct:[id number] Age/Sex: 77 / M ADM Date: 03/01/23 Loc: Room: [address] [place] [address] Type: ADM INOo Attending Dr: Bobo Villagomez [...] Selena Reid M.D.03/01/2023 9:15 AM Dictation Location: [place] [address] Transcribed By: [facility] 03/01/23 0915 Dictated By: Selena Reid MD 03/01/23913 Signed By: 03/01/23914 Normal [facility] pH Auto test strip (U)Ordere d By: Alejo Lynn on 03-01-2023 pH (U) 7.5 [pH] 5.0-9.0 [facility] Office Visiton 11-26-2022 Follow-up visit [id number] Yonatan Patel 1945 M Date Provider Department Center 11/26/2022 [id number] PRIETO CARD [facility] Family History Problem Relation Age of Onset Heart attack Father Heart attack Brother Family Status - Relation Status Age at Father Brother Level of Service:17448 [facility] OFFICE/OUTPATIENT ESTABLISHED LOW MDM 20-29 MIN Reason for Visit and Comments: Coronary Artery Disease [187] Hypertension [304260] Hyperlipidemia [182] Normal [facility] H Pylori Stool Ag, EIAon H Pylori Stool Ag, EIA Negative Normal Negative [facility] Comment on above: Order Comment: SOURC E OF SPECIMEN: STOOL Result Comment: Perf ormed at: [facility] [id number] Analytical Data Scientist: Juan Howard MD, Phone: [phone] PERFORMED BY: [place] [address] PATHOLOGIST SURGICAL CONSULTANT HARRY MARTI M.D. Performed By: #### H S TROP, CMP, CK, CBC #### [facility] [address] [place] [address] CBC AUTO DIFFon 09-14-2022 BASO # 0.0 103/ul Normal 0.0-0.1 [facility] Comment on above: Performed By: #### C BC #### [facility] [address] [place] [address] Dr. Patrica Nathan Basophils/100 WBC (Bld) 0.7 % Normal 0.2-2.0 [facility] Comment on above: Performed By: #### C BC #### [facility] [address] [place] [address] Dr. Patrica Nathan EO # 0.1 103/ul Normal 0.0-0.7 [facility] Comment on above: Performed By: #### C BC #### [facility] [address] [place] [address] Dr. Patrica Nathan Eosinophils/100 WBC (Bld) 1.5 % Normal 0.9-7.0 [facility] Comment on above: Performed By: #### C BC #### [facility] [address] [place] [address] Dr. Patrica Nathan Erythrocyte distribution width (RBC) [Ratio] 14.2 % Normal 11.0-15.0 [facility] Comment on above: Performed By: #### C BC #### [facility] [address] [place] [address] Dr. Patrica Nathan Hematocrit (Bld) [Volume fraction] 42.1 % Normal 42.0-54.0 [facility] Comment on above: Performed By: #### C BC #### [facility] [address] [place] [address] Dr. Patrica Nathan Hemoglobin (Bld) [Mass/Vol] 14.6 g/dL Normal 14.0-18.0 [facility] Comment on above: Performed By: #### C BC #### [facility] [address] [place] [address] Dr. Patirca Nathan IG # 0.03 10e3/ul Normal 0.00-0.03 [facility] Comment on above: Performed By: #### C BC #### [facility] [address] [place] [address] Dr. Patrica Nathan IG % 0.5 % Normal 0.0-0.5 [facility] Comment on above: Performed By: #### C BC #### [facility] [address] [place] [address] Dr. Patrica Nathan LYMPH # 1.3 103/ul Normal 1.2-3.8 [facility] Comment on above: Performed By: #### C BC #### [facility] [address] [place] [address] Dr. Patrica Nathan Lymphocytes/100 WBC (Bld) 22.4 % Normal 20.5-60.0 [facility] Comment on above: Performed By: #### C BC #### [facility] [address] [place] [address] Dr. Patrica Nathan MANUAL DIFF REQ NO Normal [facility] Comment on above: Performed By: #### C BC #### [facility] [address] [place] [address] Dr. Patrica Nathan MCH (RBC) [Entitic mass] 29.4 pg Normal 25.9-34.0 [facility] Comment on above: Performed By: #### C BC #### [facility] [address] [place] [address] Dr. Patrica Nathan MCHC (RBC) [Mass/Vol] 34.7 g/dL Normal 29.9-35.2 [facility] Comment on above: Performed By: #### C BC #### [facility] [address] [place] [address] Dr. Patrica Nathan MCV (RBC) [Entitic vol] 84.9 fL Normal 80.0-94.0 [facility] Comment on above: Performed By: #### C BC #### [facility] [address] [place] [address] Dr. Patrica Nathan MONO # 0.6 103/ul Normal 0.3-0.8 [facility] Comment on above: Performed By: #### C BC #### [facility] [address] [place] [address] Dr. Patrica Nathan Monocytes/100 WBC (Bld) 9.9 % Normal 1.7-12.0 [facility] Comment on above: Performed By: #### C BC #### [facility] [address] [place] [address] Dr. Patrica Nathan NEUT # 3.9 103/ul Normal 1.4-6.5 [facility] Comment on above: Performed By: #### C BC #### [facility] [address] [place] [address] Dr. Patrica Nathan Neutrophils/100 WBC (Bld) 65.0 % Normal 43.0-75.0 [facility] Comment on above: Performed By: #### C BC #### [facility] [address] [address] [address] Patrica Nathan Platelet mean volume (Bld) [Entitic vol] 9.6 fL Normal 9.5-13.5 [facility] Comment on above: Performed By: #### C BC #### [facility] [address] [place] [address] [address] Patrica Nathan PLT 170 103/ul Normal 150-450 [facility] Comment on above: Performed By: #### C BC #### [facility] [address] [place] [address] [address] Patrica Nathan RBC 4.96 106/ul Normal 4.70-6.10 [facility] Comment on above: Performed By: #### C BC #### [facility] [address] [address] [address] Patrica Nathan WBC 6.0 103/ul Normal 4.0-11.0 [facility] Comment on above: Performed By: #### C BC #### [facility] [address] [place] HEAD WO CONon [...] ANGELY KENNEDY Date: 2022-09-14 10:00 Normal [facility] PROF 14(COMP METB)on 023 Albumin [Mass/Vol] 3.7 g/dL Normal 3.4-5.0 [facility] Comment on above: Performed By: #### C JV, HSTROPN #### [facility] [address] [place] [address] Dr. Patrica Nathan Albumin/Globulin [Mass ratio] 1.4 {ratio} Normal [facility] Comment on above: Performed By: #### C JV, HSTROPN #### [facility] [address] [place] [address] Dr. Patrica Nathan ALP [Catalytic activity/Vol] 83 U/L Normal 46-116 [facility] Comment on above: Performed By: #### C JV, HSTROPN #### [facility] [address] [place] [address] Dr. Patrica Nathan ALT [Catalytic activity/Vol] 57 U/L Normal 16-63 [facility] Comment on above: Performed By: #### C JV, HSTROPN #### [facility] [address] [address] [address] Patrica Nathan Anion gap [Moles/Vol] 11.9 mmol/L Normal [facility] Comment on above: Performed By: #### C JV, HSTROPN #### [facility] [address] [address] [address] Patrica Nathan AST [Catalytic activity/Vol] 43 U/L Critically high 15-37 [facility] Comment on above: Performed By: #### C JV, HSTROPN #### [facility] [address] [address] [address] aPtrica Nathan Bilirubin [Mass/Vol] 1.1 mg/dL Critically high 0.2-1.0 [facility] Comment on above: Performed By: #### C JV, HSTROPN #### [facility] [address] [place] [address] Dr. Patrica Nathan Calcium [Mass/Vol] 9.2 mg/dL Normal 8.5-10.1 [facility] Comment on above: Performed By: #### C JV, HSTROPN #### [facility] [address] [place] [address] Dr. Patrica Nathan Chloride [Moles/Vol] 106 mmol/L Normal 98-107 [facility] Comment on above: Performed By: #### C JV, HSTROPN #### [facility] [address] [place] [address] Dr. Patrica Nathan CO2 [Moles/Vol] 28.0 mmol/L Normal 21.0-32.0 [facility] Comment on above: Performed By: #### C JV, HSTROPN #### [facility] [address] [place] [address] Dr. Patrica Nathan Creatinine [Mass/Vol] 0.92 mg/dL Normal 0.70-1.30 [facility] Comment on above: Performed By: #### C JV, HSTROPN #### [facility] [address] [place] [address] Dr. Patrica Nathan EGFR-AF SAMOAN >60 Normal >=60 [facility] Comment on above: Performed By: #### C JV, HSTROPN #### [facility] [address] [place] [address] Dr. Patrica Nathan EGFR-NON AF SAMOAN >60 Normal >=60 [facility] Comment on above: Performed By: #### C JV, HSTROPN #### [facility] [address] [place] [address] Dr. Patrica Nathan Globulin (S) [Mass/Vol] 2.7 g/dL Normal [facility] Comment on above: Performed By: #### C JV, HSTROPN #### [facility] [address] [place] [address] Dr. Patrica Nathan Glucose [Mass/Vol] 90 mg/dL Normal 74-106 [facility] [facility] Comment on above: Performed By: #### C MP, HSTROPN #### [facility] [address] [place] [address] Dr. Patrica Nathan Potassium [Moles/Vol] 3.9 mmol/L Normal 3.5-5.1 [facility] Comment on above: Performed By: #### C MP, HSTROPN #### [facility] [address] [place] [address] Dr. Patrica Nathan Protein [Mass/Vol] 6.4 g/dL Normal 6.4-8.2 [facility] Comment on above: Performed By: #### C MP, HSTROPN #### [facility] [address] [place] [address] Dr. Patrica Nathan Sodium [Moles/Vol] 142 mmol/L Normal 136-145 [facility] Comment on above: Performed By: #### C MP, HSTROPN #### [facility] [address] [place] [address] Dr. Patrica Nathan Urea nitrogen [Mass/Vol] 19.0 mg/dL Critically high 7.0-18.0 [facility] Comment on above: Performed By: #### C MP, HSTROPN #### [facility] [address] [place] [address] Dr. Patrica Nathan Urea nitrogen/Creatinine [Mass ratio] 20.7 mg/mg Normal [facility] Comment on above: Performed By: #### C MP, HSTROPN #### [facility] [address] [place] [address] Dr. Patrica Nathan TROPONIN, HIGH SENSITIVITYon 09-14-2022 HSTROP 5.8 pg/mL Normal 4.0-76.1 [facility] Comment on above: Result Comment: CUT- OFF POINTS HAVE BEEN ESTABLISHED BASED ON THE FOURTH UNIVERSAL DEFINITIONS OF MYOCARDIAL INFARCTION. THE UPPER REFERENCE LIMIT (URL) OF TROPONIN, DEFINED THE 99TH PERCENTILE OF cTnI DISTRIBUTION IN A REFERENCE POPULATION, HAS BEEN CONFIRMED THE DECISION THRESHOLD FOR NM DIAGNOSIS. Performed By: #### C JV, HSTROPN #### [facility] [address] [address] [address] Patrica Nathan XR CHEST 1 Von 09-14-2022 XR CHEST 1 V EXAM: XR CHEST 1 V HISTORY: Near syncope COMPARISON: None. TECHNIQUE: Single view of the chest FINDINGS: Heart size normal. No focal consolidation, pleural effusion, pulmonary congestion or pneumothorax. IMPRESSION: No acute findings. Electronically authenticated by: PASTORA DREW Date: 2022-09-14 10:01 Normal [facility] Alex 08-27-2022 L ------- Specimen: [id number] Received: 08/27/22 Status: MAIRAH Coburnraven Num: [id number] Spec Type: Surgical Subm Dr: Maryjane Christensen MD Tissues: A Gastric Biopsy (GASTRIC BX) B Colon Biopsy (ASCENDING POLYP) C Colon Biopsy (SIGMIOD POLYP) Procedures: HE/6, Gross/Micro L4/3, H PYLORI Age/ Patient Sex Location Account Attending Physician Yonatan Patel/M [id number] Alek Oliva MD SPEC NUM: [id number] RECD: 08/27/22 STATUS: MARIAH WEBER NUM: [id number] EVE: 08/27/22 DR: Maryjane Christensen MD ENTERED: 08/27/[address] [facility] [address]: BRITTANIE TYPE: Surgical DEPT: S ORDERED: HE/6, Gross/Micro L4/3, H PYLORI ORDERED: HE/6, Gross/Micro L4/3, H PYLORI Supplemental Report Addendum 1 Entered: 08/28/22 A. Immunohistochemical stain for Helicobacter Pylori is POSITIVE. Addendum Signed (signature on file) Aaliyah Beard MD 08/28/22 7237 Pathological Diagnosis A. Stomach, gastric, biopsy: - Moderate chronic active gastritis. - Positive for Helicobacter pylori like organisms on H E stain. COMMENT: Confirmatory Helicobacter pylori immunohistochemical stain is being performed, an addendum report will be issued on completion. B. Colon, ascending, polypectomy: - Tubular adenoma. Specimen: [id number] Received: 08/27/22 Status: MARIAH Weber Num: [id number] Spec Type: Surgical Subm Dr: Maryjane Christensen MD Tissues: A Gastric Biopsy (GASTRIC BX) B Colon Biopsy (ASCENDING POLYP) C Colon Biopsy (SIGMIOD POLYP) Procedures: HE/6, Gross/Micro L4/3, H PYLORI Patient: PatelVenancioYonatan Jose [id number] (Continued) Specimen: Received: 08/27/22 (Continued) Pathological Diagnosis (Continued) Signed (signature on file) Aaliyah Beard MD 08/28/22 1236 Specimen: [id number] Received: 08/27/22 Status: MARIAH Weber Num: [id number] Spec Type: Surgical Subm Dr: Maryjane Christensen MD Tissues: A Gastric Biopsy (GASTRIC BX) B Colon Biopsy (ASCENDING POLYP) C Colon Biopsy (SIGMIOD POLYP) Procedures: HE/6, Gross/Micro L4/3, H PYLORI Patient: Yonatan Patel [id number] (Continued) Specimen: [id number] Received: 08/27/22-1141 (Continued) Pathological Diagnosis (Continued) C. Colon, sigmoid, [...] support the above pathologic diagnosis. CPT Codes 31645?3 Specimen: [id number] Received: 08/27/221141 Status: MARIAH Weber Num: [id number] Spec Type: Surgical Subm Dr: Maryjane Christensen MD Tissues: A Gastric Biopsy (GASTRIC BX) B Colon Biopsy (ASCENDING POLYP) C Colon Biopsy (SIGMIOD POLYP) Procedures: HE/6, Gross/Micro L4/3, H PYLORI --------- (more content not included)... Normal [facility] EXAMINATION: MRI BRA IN [facility], 07/28/2022 8:18 AM EST HISTORY: Skin sensation [...] BERHANE HERNANDEZ Date: 2022-07-29 08:42 Normal [facility] LIPID PROFILEon 07-28-2022 CHOL-HDL RATIO NORM SEE BELOW Normal [facility] Comment on above: Result Comment: 3.3 - 4.4 LOW RISK 4.4 - 7.1 AVERAGE RISK 7.1 - 11.0 MODERATE RISK >11.0 HIGH RISK Performed By: #### C MP, HSTROPN #### [facility] [address] [address] [address] Patrica Nathan Cholesterol [Mass/Vol] 97 mg/dL Normal <=200 [facility] Comment on above: Performed By: #### C MP, HSTROPN #### [facility] [address] [address] [address] Patrica Nathan Cholesterol in HDL [Mass/Vol] 40 mg/dL Normal 40-60 [facility] Comment on above: Performed By: #### C MP, HSTROPN #### [facility] [address] [address] [address] Patrica Nathan Cholesterol in LDL [Mass/Vol] 31.8 mg/dL Normal [facility] Comment on above: Performed By: #### C MP, HSTROPN #### [facility] [address] [address] [address] Patrica Nathan Cholesterol.total/Chol esterol in HDL [Mass ratio] 2.4 {ratio} Normal [facility] Comment on above: Performed By: #### C MP, HSTROPN #### [facility] [address] [address] [address] Patrica Nathan HDL NORMAL > or = 60 mg/dl - LO W CARDIOVASCULAR RISK <40 mg/dl - HIGH CARDIOVASCULAR RISK Normal [facility] Comment on above: Performed By: #### C MP, HSTROPN #### [facility] [address] [address] [address] Patrica Nathan LDL CALC NORMAL SEE BELOW Normal [facility] Comment on above: Result Comment: <100 mg/dl OPTIMAL 100 - 129 mg/dl NEAR OR ABOVE OPTIMAL 130 - 159 mg/dl BORDERLINE HIGH 160 - 189 mg/dl HIGH >190 mg/dl VERY HIGH Performed By: #### C JV, HSTROPN #### [facility] [address] [place] [address] Dr. Patrica Nathan Triglyceride [Mass/Vol] 126 mg/dL Normal <=150 [facility] Comment on above: Performed By: #### C JV, HSTROPN #### [facility] [address] [place] [address] Dr. Patrica Nathan VLDL CALC 25.2 mg/dL Normal [facility] Comment on above: Performed By: #### C JV HSTROPN #### [facility] [address] [place] [address] Dr. Patrica Nathan CBC AUTO DIFFon 07-01-2022 BASO # 0.0 103/ul Normal 0.0-0.1 [facility] Comment on above: Performed By: #### C BC #### [facility] [address] [place] [address] Dr. Patrica Nathan Basophils/100 WBC (Bld) 0.5 % Normal 0.2-2.0 [facility] Comment on above: Performed By: #### C BC #### [facility] [address] [place] [address] Dr. Patrica Nathan EO # 0.1 103/ul Normal 0.0-0.7 [facility] Comment on above: Performed By: #### C BC #### [facility] [address] [place] [address] Dr. Patrica Nathan Eosinophils/100 WBC (Bld) 2.2 % Normal 0.9-7.0 [facility] Comment on above: Performed By: #### C BC #### [facility] [address] [place] [address] Dr. Patrica Nathan Erythrocyte distribution width (RBC) [Ratio] 14.3 % Normal 11.0-15.0 [facility] Comment on above: Performed By: #### C BC #### [facility] [address] [place] [address] Dr. Patrica Nathan Hematocrit (Bld) [Volume fraction] 45.8 % Normal 42.0-54.0 [facility] Comment on above: Performed By: #### C BC #### [facility] [address] [place] [address] Dr. Patrica Nathan Hemoglobin (Bld) [Mass/Vol] 15.1 g/dL Normal 14.0-18.0 [facility] Comment on above: Performed By: #### C BC #### [facility] [address] [place] [address] Dr. Patrica Nathan IG # 0.01 10e3/ul Normal 0.00-0.03 [facility] Comment on above: Performed By: #### C BC #### [facility] [address] [place] [address] Dr. Patrica Nathan IG % 0.2 % Normal 0.0-0.5 [facility] Comment on above: Performed By: #### C BC #### [facility] [address] [place] [address] Dr. Patrica Nathan LYMPH # 1.4 103/ul Normal 1.2-3.8 [facility] Comment on above: Performed By: #### C BC #### [facility] [address] [place] [address] Dr. Patrica Nathan Lymphocytes/100 WBC (Bld) 24.0 % Normal 20.5-60.0 [facility] Comment on above: Performed By: #### C BC #### [facility] [address] [place] [address] Dr. Patrica Nathan MANUAL DIFF REQ NO Normal [facility] Comment on above: Performed By: #### C BC #### [facility] [address] [place] [address] Dr. Patrica Nathan MCH (RBC) [Entitic mass] 29.4 pg Normal 25.9-34.0 [facility] Comment on above: Performed By: #### C BC #### [facility] [address] [place] [address] Dr. Patrica Nathan MCHC (RBC) [Mass/Vol] 33.0 g/dL Normal 29.9-35.2 [facility] Comment on above: Performed By: #### C BC #### [facility] [address] [place] [address] Dr. Patrica Nathan MCV (RBC) [Entitic vol] 89.3 fL Normal 80.0-94.0 [facility] Comment on above: Performed By: #### C BC #### [facility] [address] [place] [address] Dr. Patrica Nathan MONO # 0.6 103/ul Normal 0.3-0.8 [facility] Comment on above: Performed By: #### C BC #### [facility] [address] [place] [address] Dr. Patrica Nathan Monocytes/100 WBC (Bld) 10.8 % Normal 1.7-12.0 [facility] Comment on above: Performed By: #### C BC #### [facility] [address] [place] [address] Dr. Patrica Nathan NEUT # 3.7 103/ul Normal 1.4-6.5 [facility] Comment on above: Performed By: #### C BC #### [facility] [address] [place] [address] Dr. Patrica Nathan Neutrophils/100 WBC (Bld) 62.3 % Normal 43.0-75.0 [facility] Comment on above: Performed By: #### C BC #### [facility] [address] [place] [address] Dr. Patrica Nathan Platelet mean volume (Bld) [Entitic vol] 9.7 fL Normal 9.5-13.5 [facility] Comment on above: Performed By: #### C BC #### [facility] [address] [place] [address] Dr. Patrica Nathan PLT 192 103/ul Normal 150-450 [facility] Comment on above: Performed By: #### C BC #### [facility] [address] [place] [address] Dr. Patrica Nathan RBC 5.13 106/ul Normal 4.70-6.10 [facility] Comment on above: Performed By: #### C BC #### [facility] [address] [place] [address] Dr. Patrica Nathan WBC 6.0 103/ul Normal 4.0-11.0 [facility] Comment on above: Performed By: #### C BC #### [facility] [address] [address] [address] CHEST WO CONon [...] EVGENY MCCLAIN Date: 2022-07-01 07:16 Normal [facility] PROF 14(COMP METB)on 022 Albumin [Mass/Vol] 4.0 g/dL Normal 3.4-5.0 [facility] Comment on above: Performed By: #### C MARY CARIASTROPN #### [facility] [address] [place] [address] Dr. Patrica Nathan Albumin/Globulin [Mass ratio] 1.2 {ratio} Normal [facility] Comment on above: Performed By: #### C JV HSTROPN #### [facility] [address] [address] [address] Patrica Nathan ALP [Catalytic activity/Vol] 80 U/L Normal 46-116 [facility] Comment on above: Performed By: #### C MP, HSTROPN #### [facility] [address] [address] [address] Patrica Nathan ALT [Catalytic activity/Vol] 30 U/L Normal 16-63 [facility] Comment on above: Performed By: #### C MP, HSTROPN #### [facility] [address] [place] [address] Dr. Patrica Nathan Anion gap [Moles/Vol] 8.5 mmol/L Normal [facility] Comment on above: Performed By: #### C MP, HSTROPN #### [facility] [address] [place] [address] Dr. Patrica Nathan AST [Catalytic activity/Vol] 26 U/L Normal 15-37 [facility] Comment on above: Performed By: #### C JV, HSTROPN #### [facility] [address] [place] [address] Dr. Patrica Nathan Bilirubin [Mass/Vol] 1.4 mg/dL Critically high 0.2-1.0 [facility] Comment on above: Performed By: #### C MP, HSTROPN #### [facility] [address] [place] [address] Dr. Patrica Nathan Calcium [Mass/Vol] 9.8 mg/dL Normal 8.5-10.1 [facility] Comment on above: Performed By: #### C MP, HSTROPN #### [facility] [address] [place] [address] Dr. Patrica Nathan Chloride [Moles/Vol] 104 mmol/L Normal 98-107 [facility] Comment on above: Performed By: #### C MP, HSTROPN #### [facility] [address] [place] [address] Dr. Patrica Nathan CO2 [Moles/Vol] 30.8 mmol/L Normal 21.0-32.0 [facility] Comment on above: Performed By: #### C MP, HSTROPN #### [facility] [address] [address] [address] Patrica Nathan Creatinine [Mass/Vol] 0.97 mg/dL Normal 0.70-1.30 [facility] Comment on above: Performed By: #### C MP, HSTROPN #### [facility] [address] [address] [address] Patrica Nathan EGFR-AF SAMOAN >60 Normal >=60 [facility] Comment on above: Performed By: #### C MP, HSTROPN #### [facility] [address] [address] [address] Patrica Nathan EGFR-NON AF SAMOAN >60 Normal >=60 [facility] Comment on above: Performed By: #### C MP, HSTROPN #### [facility] [address] [address] [address] Patrica Nathan Globulin (S) [Mass/Vol] 3.4 g/dL Normal [facility] Comment on above: Performed By: #### C MP, HSTROPN #### [facility] [address] [address] [address] Patrica Nathan Glucose [Mass/Vol] 110 mg/dL Critically high 74-106 [facility] Comment on above: Performed By: #### C MP, HSTROPN #### [facility] [address] [address] [address] Patrica Nathan Potassium [Moles/Vol] 4.3 mmol/L Normal 3.5-5.1 [facility] Comment on above: Performed By: #### C MP, HSTROPN #### [facility] [address] [address] [address] Patrica Nathan Protein [Mass/Vol] 7.4 g/dL Normal 6.4-8.2 [facility] Comment on above: Performed By: #### C MP, HSTROPN #### [facility] [address] [address] [address] Patrica Nathan Sodium [Moles/Vol] 139 mmol/L Normal 136-145 [facility] Comment on above: Performed By: #### C JV, HSTROPN #### [facility] [address] [place] [address] Dr. Patrica Nathan Urea nitrogen [Mass/Vol] 15.0 mg/dL Normal 7.0-18.0 [facility] Comment on above: Performed By: #### C MP, HSTROPN #### [facility] [address] [place] [address] Dr. Patrica Nathan Urea nitrogen/Creatinine [Mass ratio] 15.5 mg/mg Normal [facility] Comment on above: Performed By: #### C JV, HSTROPN #### [facility] [address] [place] [address] Dr. Patrica Nathan PROTIMEon 07-01-2022 INR Coag (PPP) [Relative time] 0.95 {INR} Normal [facility] Comment on above: Performed By: #### P T, PTT #### [facility] [address] [place] [address] Dr. Patrica Nathan INR GUIDELINES SEE BELOW Normal [facility] Comment on above: Result Comment: ODALIS RED INR: 2.0 - 3.0 CONDITIONS NOT LISTED BELOW 2.5 - 3.5 FOR PROSTHETIC HEART VALVE REPLACEMENT 2.5 - 3.5 RECURRENT THROMBOSIS Performed By: #### P T, PTT #### [facility] [address] [place] [address] Dr. Patrica Nathan PT Coag (PPP) [Time] 10.3 s Normal 9.0-11.6 [facility] Comment on above: Performed By: #### P T, PTT #### [facility] [address] [place] [address] Dr. Patrica Nathan PTTon 07-01-2022 aPTT Coag (Bld) [Time] 27.1 s Normal 22.3-36.2 Th [facility] Comment on above: Performed By: #### C MP, HSTROPN #### [facility] [address] [place] [address] Dr. Patrica Nathan XR CHEST 1 Von [...] by: ANGELY REYNOLDS Date: 2022-07-01 06:[address] [facility] [address] CHEST WO CONon 06-29-2022 [...] by: BERHANE HERNANDEZ Date: 2022-06-29 16:01 Normal [facility] XR RIBS RT PA Estella 2 XR [...] apical pneumothorax is suggested. Electronically authenticated by: FABRICECurefabH Date: 2022-06-29 15:08 Normal [facility] CBC AUTO DIFFon 05-02-2022 BASO # 0.1 103/ul Normal 0.0-0.1 [facility] Comment on above: Performed By: #### C BC #### [facility] [address] [address] [address] Patrica Nathan Basophils/100 WBC (Bld) 0.8 % Normal 0.2-2.0 [facility] Comment on above: Performed By: #### C BC #### [facility] [address] [address] [address] Patrica Nathan EO # 0.1 103/ul Normal 0.0-0.7 [facility] Comment on above: Performed By: #### C BC #### [facility] [address] [address] [address] Patrica Nathan Eosinophils/100 WBC (Bld) 1.7 % Normal 0.9-7.0 [facility] Comment on above: Performed By: #### C BC #### [facility] [address] [place] [address] Dr. Patrica Nathan Erythrocyte distribution width (RBC) [Ratio] 14.5 % Normal 11.0-15.0 [facility] Comment on above: Performed By: #### C BC #### [facility] [address] [place] [address] Dr. Patrica Nathan Hematocrit (Bld) [Volume fraction] 45.6 % Normal 42.0-54.0 [facility] Comment on above: Performed By: #### C BC #### [facility] [address] [place] [address] Dr. Patrica Nathan Hemoglobin (Bld) [Mass/Vol] 15.3 g/dL Normal 14.0-18.0 [facility] Comment on above: Performed By: #### C BC #### [facility] [address] [place] [address] Dr. Patrica Nathan IG # 0.02 10e3/ul Normal 0.00-0.03 [facility] Comment on above: Performed By: #### C BC #### [facility] [address] [place] [address] Dr. Patrica Nathan IG % 0.3 % Normal 0.0-0.5 [facility] Comment on above: Performed By: #### C BC #### [facility] [address] [place] [address] Dr. Patrica Nathan LYMPH # 1.6 103/ul Normal 1.2-3.8 [facility] Comment on above: Performed By: #### C BC #### [facility] [address] [place] [address] Dr. Patrica Nathan Lymphocytes/100 WBC (Bld) 27.0 % Normal 20.5-60.0 [facility] Comment on above: Performed By: #### C BC #### [facility] [address] [place] [address] Dr. Patrica Nathan MANUAL DIFF REQ NO Normal [facility] Comment on above: Performed By: #### C BC #### [facility] [address] [place] [address] Dr. Patrica Nathan MCH (RBC) [Entitic mass] 29.9 pg Normal 25.9-34.0 [facility] Comment on above: Performed By: #### C BC #### [facility] [address] [address] [address] Patrica Nathan MCHC (RBC) [Mass/Vol] 33.6 g/dL Normal 29.9-35.2 [facility] Comment on above: Performed By: #### C BC #### [facility] [address] [address] [address] Patrica Nathan MCV (RBC) [Entitic vol] 89.1 fL Normal 80.0-94.0 [facility] Comment on above: Performed By: #### C BC #### [facility] [address] [place] [address] Dr. Patrica Nathan MONO # 0.6 103/ul Normal 0.3-0.8 [facility] Comment on above: Performed By: #### C BC #### [facility] [address] [place] [address] Dr. Patrica Nathan Monocytes/100 WBC (Bld) 9.8 % Normal 1.7-12.0 [facility] Comment on above: Performed By: #### C BC #### [facility] [address] [place] [address] Dr. Patrica Nathan NEUT # 3.6 103/ul Normal 1.4-6.5 [facility] Comment on above: Performed By: #### C BC #### [facility] [address] [place] [address] Dr. Patrica Nathan Neutrophils/100 WBC (Bld) 60.4 % Normal 43.0-75.0 [facility] Comment on above: Performed By: #### C BC #### [facility] [address] [place] [address] Dr. Patrica Nathan Platelet mean volume (Bld) [Entitic vol] 9.3 fL Critically low 9.5-13.5 [facility] Comment on above: Performed By: #### C BC #### [facility] [address] [place] [address] Dr. Patrica Nathan PLT 183 103/ul Normal 150-450 [facility] Comment on above: Performed By: #### C BC #### [facility] [address] [place], [place] [address] Dr. Patrica Nathan RBC 5.12 106/ul Normal 4.70-6.10 [facility] Comment on above: Performed By: #### C BC #### [facility] [address] [place], [place] [address] Dr. Patrica Nathan WBC 6.0 103/ul Normal 4.0-11.0 [facility] Comment on above: Performed By: #### C BC #### [facility] [address] [place], [place] [address] ABD/PELV WO W [...] EVGENY MCCLAIN Date: 2022-05-02 10:56 Normal [facility] PROF 14(COMP METB)on 022 Albumin [Mass/Vol] 4.1 g/dL Normal 3.4-5.0 [facility] Comment on above: Performed By: #### C MP, HSTROPN #### [facility] [address] [address] [address] Patrica Nathan Albumin/Globulin [Mass ratio] 1.4 {ratio} Normal [facility] Comment on above: Performed By: #### C MP, HSTROPN #### [facility] [address] [address] [address] Patrica Nathan ALP [Catalytic activity/Vol] 71 U/L Normal 46-116 [facility] Comment on above: Performed By: #### C MP, HSTROPN #### [facility] [address] [address] [address] Patrica Nathan ALT [Catalytic activity/Vol] 48 U/L Normal 16-63 [facility] Comment on above: Performed By: #### C MP, HSTROPN #### [facility] [address] [address] [address] Patrica Nathan Anion gap [Moles/Vol] 8.1 mmol/L Normal [facility] Comment on above: Performed By: #### C MP, HSTROPN #### [facility] [address] [address] [address] Patrica Nathan AST [Catalytic activity/Vol] 31 U/L Normal 15-37 [facility] Comment on above: Performed By: #### C MP, HSTROPN #### [facility] [address] [address] [address] Patrica Nathan Bilirubin [Mass/Vol] 1.6 mg/dL Critically high 0.2-1.0 [facility] Comment on above: Performed By: #### C MP, HSTROPN #### [facility] [address] [address] [address] Patrica Nathan Calcium [Mass/Vol] 9.4 mg/dL Normal 8.5-10.1 [facility] Comment on above: Performed By: #### C MP, HSTROPN #### [facility] [address] [address] [address] Patrica Nathan Chloride [Moles/Vol] 105 mmol/L Normal 98-107 [facility] Comment on above: Performed By: #### C MP, HSTROPN #### [facility] [address] [address] [address] Patrica Nathan CO2 [Moles/Vol] 29.0 mmol/L Normal 21.0-32.0 [facility] Comment on above: Performed By: #### C MP, HSTROPN #### [facility] [address] [address] [address] Patrica Nathan Creatinine [Mass/Vol] 1.01 mg/dL Normal 0.70-1.30 [facility] Comment on above: Performed By: #### C MP, HSTROPN #### [facility] [address] [place] [address] Dr. Patrica Nathan EGFR-AF SAMOAN >60 Normal >=60 [facility] Comment on above: Performed By: #### C MP, HSTROPN #### [facility] [address] [place] [address] Dr. Patrica Nathan EGFR-NON AF SAMOAN >60 Normal >=60 [facility] Comment on above: Performed By: #### C MP, HSTROPN #### [facility] [address] [address] [address] Patrica Nathan Globulin (S) [Mass/Vol] 2.9 g/dL Normal [facility] Comment on above: Performed By: #### C MP, HSTROPN #### [facility] [address] [address] [address] Patrica Nathan Glucose [Mass/Vol] 106 mg/dL Normal 74-106 [facility] Comment on above: Performed By: #### C MP, HSTROPN #### [facility] [address] [address] [address] Patrica Nathan Potassium [Moles/Vol] 4.1 mmol/L Normal 3.5-5.1 [facility] Comment on above: Performed By: #### C JV, HSTROPN #### [facility] [address] [place] [address] Dr. Patrica Nathan Protein [Mass/Vol] 7.0 g/dL Normal 6.4-8.2 [facility] Comment on above: Performed By: #### C JV, HSTROPN #### [facility] [address] [place] [address] Dr. Patrica Nathan Sodium [Moles/Vol] 138 mmol/L Normal 136-145 [facility] Comment on above: Performed By: #### C JV, HSTROPN #### [facility] [address] [place] [address] Dr. Patrica Nathan Urea nitrogen [Mass/Vol] 18.0 mg/dL Normal 7.0-18.0 [facility] Comment on above: Performed By: #### C JV, HSTROPN #### [facility] [address] [place] [address] Dr. Patrica Nathan Urea nitrogen/Creatinine [Mass ratio] 17.8 mg/mg Normal [facility] Comment on above: Performed By: #### C JV, HSTROPN #### [facility] [address] [place] [address] Dr. Patrica Nathan TSHon 05-02-2022 TSH 2.409 uIU/mL Normal 0.358-3.74 0 [facility] Comment on above: Performed By: #### T SH #### [facility] [address] [place] [address] Dr. Patrica Nathan XR CHEST 2 Von [...] EVGENY MCCLAIN Date: 2022-05-02 07:44 Normal [facility] Covid-19 PCR (CVDTBH)on 01-16 SARS-CoV-2 (COVID-19) RNA MARIANNE+probe Ql (Unsp spec) Not detected Normal NOT DETECTED [facility] Comment on above: Result Comment: This test is not yet approved or cleared by the [place] FDA. When there are no FDA-approved or cleared tests available, and other criteria are met, FDA can make tests available under an emergency access mechanism called an Emergency Use Authorization (EUA). The EUA for this test is supported by the [place] of Health and Human Service's (HHS's) declaration [...] consistent with SARS-CoV-2. Performed By: #### [facility] #### [facility] [address] [place] [address] Dr. Patrica Nathan Vital Signs Date Time Vital Sign Value Performing Clinician Facility 11-06-2023 15:24040 Body height 187.96 cm [facility] 11-06-2023 15:24-0400 Body mass index (BMI) [Ratio] 23.1 kg/m2 [facility] 11-06-2023 15:24040 Body weight 81.64 kg [facility] 11-06-2023 15:24-0400 Diastolic blood pressure 64 mm[Hg] [facility] 11-06-2023 15:24-0400 Heart rate 65 /min [facility] 11-06-2023 15:24-0400 Respiratory rate 12 /min [facility] 11-06-2023 15:24-0400 Systolic blood pressure 134 mm[Hg] [facility] 10-28-2023 11:01-0400 Body height 187.96 cm [facility] 10-28-2023 11:01-0400 Body mass index (BMI) [Ratio] 23.2 kg/m2 [facility] 10-28-2023 11:01-0400 Body weight 82.21 kg [facility] 10-28-2023 11:01-0400 Diastolic blood pressure 77 mm[Hg] [facility] 10-28-2023 11:01-0400 Heart rate 59 /min [facility] 10-28-2023 11:01-0400 Respiratory rate 12 /min [facility] 10-28-2023 11:01-0400 Systolic blood pressure 144 mm[Hg] [facility] 09-15-2023 16:00-0500 Body height 187.96 cm Cisco Ball Other [facility] 09-15-2023 16:00-0500 Body mass index (BMI) [Ratio] 23.75 kg/m2 Cisco Ball Other [facility] Other 09-15-2023 16:00-0500 Body weight 83.92 kg Cisco Ball Other [facility] Other 09-15-2023 16:00-0500 Body weight 83.91 kg [facility] 09-15-2023 16:00-0500 Diastolic blood pressure 73 mm[Hg] Cisco Ball Other [facility] 09-15-2023 16:00-0500 Respiratory rate 12 /min Cisco Ball Other [facility] Other 09-15-2023 16:00-0500 Systolic blood pressure 158 mm[Hg] Cisco Ball Other [facility] 08-28-2023 10:00-0500 Body height 187.96 cm Cisco Ball Other [facility] 08-28-2023 10:00-0500 Body mass index (BMI) [Ratio] 23.42 kg/m2 Csico Ball Other [facility] Other 08-28-2023 10:00-0500 Body weight 82.74 kg Cisco Ball Other [facility] Other 08-28-2023 10:00-0500 Body weight 82.73 kg [facility] 08-28-2023 10:00-0500 Diastolic blood pressure 66 mm[Hg] Cisco Ball Other [facility] 08-28-2023 10:00-0500 Respiratory rate 12 /min Cisco Ball Other [facility] Other 08-28-2023 10:00-0500 Systolic blood pressure 117 mm[Hg] Cisco Ball Other [facility] 07-28-2023 13:13-0500 Blood Pressure Location Angely NILL [facility] [place] 07-28-2023 13:13-0500 Diastolic blood pressure 72 mm[Hg] Angely NILL [facility] [place] 07-28-2023 13:13-0500 Heart rate 72 /min Angely NILL [facility] [place] 07-28-2023 13:13-0500 Respiratory rate 16 /min Angely NILL [facility] [place] 07-28-2023 13:13-0500 Systolic blood pressure 118 mm[Hg] Angely NILL [facility] [place] 07-01-2023 10:15-0500 Body height 187.96 cm Cisco Ball Other [facility] Other 07-01-2023 10:15-0500 Body mass index (BMI) [Ratio] 23.13 kg/m2 Cisco [facility] Other [facility] Other 07-01-2023 10:15-0500 Body weight 81.74 kg Cisco Ball Other [facility] Other 07-01-2023 10:15-0500 Diastolic blood pressure 70 mm[Hg] Cisco Ball Other [facility] Other 07-01-2023 10:15-0500 Respiratory rate 12 /min Cisco Ball Other [facility] Other 07-01-2023 10:15-0500 Systolic blood pressure 135 mm[Hg] Cisco Ball Other [facility] Other 06-20-2023 02:33-0400 Diastolic blood pressure 74 mm[Hg] DO Cisco Ball Work Phone: [facility] 06-20-2023 02:33-0400 Heart rate 78 /min DO Cisco Ball Work Phone: [facility] 06-20-2023 02:33-0400 Respiratory rate 16 /min DO Cisco Ball Work Phone: [facility] 06-20-2023 02:33-0400 SaO2% (BldA) [Mass fraction] 96 % DO Cisco Ball Work Phone: [facility] 06-20-2023 02:33-0400 Systolic blood pressure 158 mm[Hg] DO Cisco Ball Work Phone: [facility] 06-19-2023 20:47-0400 Body height 187.96 cm DO Icsco Ball Work Phone: [facility] 06-19-2023 20:47-0400 Body temperature 97.9 [degF] DO Cisco Ball Work Phone: [facility] 06-19-2023 20:47-0400 Body weight 80.3 kg DO Cisco Ball Work Phone: [facility] 06-17-2023 15:45-0400 Body height 187.96 cm Cisco Ball Other [facility] Other 06-17-2023 15:45-0400 Body mass index (BMI) [Ratio] 23.65 kg/m2 Cisco [facility] Other [facility] Other 06-17-2023 15:45-0400 Body temperature 97.3 [degF] Cisco Ball Other [facility] Other 06-17-2023 15:45-0400 Body weight 83.55 kg Cisco Ball Other [facility] Other 06-17-2023 15:45-0400 Diastolic blood pressure 57 mm[Hg] Cisco Ball Other [facility] Other 06-17-2023 15:45-0400 Respiratory rate 12 /min Cisco Ball Other [facility] Other 06-17-2023 15:45-0400 Systolic blood pressure 128 mm[Hg] Cisco Ball Other [facility] Other 05-20-2023 08:45-0400 Body height 187.96 cm Cisco Ball Other [facility] Other 05-20-2023 08:45-0400 Body mass index (BMI) [Ratio] 23.62 kg/m2 Cisco [facility] Other [facility] Other 05-20-2023 08:45-0400 Body weight 83.46 kg Cisco Ball Other [facility] Other 05-20-2023 08:45-0400 Diastolic blood pressure 82 mm[Hg] Cisco Ball Other [facility] Other 05-20-2023 08:45-0400 Respiratory rate 12 /min Cisco Ball Other [place] [facility] Other 05-20-2023 08:45-0400 Systolic blood pressure 121 mm[Hg] Cisco Ball Other [place] [facility] Other 04-21-2023 11:30-0400 Body height 187.96 cm Cisco Ball Other [place] [facility] Other 04-21-2023 11:30-0400 Body mass index (BMI) [Ratio] 23.34 kg/m2 Cisco [facility] Other [facility] Other 04-21-2023 11:30-0400 Body weight 82.46 kg Cisco Ball Other [facility] Other 04-21-2023 11:30-0400 Diastolic blood pressure 65 mm[Hg] Cisco Ball Other [facility] Other 04-21-2023 11:30-0400 Respiratory rate 12 /min Cisco Ball Other [facility] Other 04-21-2023 11:30-0400 Systolic blood pressure 165 mm[Hg] Cisco Ball Other [place] [facility] Other 03-01-2023 08:00-0400 Diastolic blood pressure 82 mm[Hg] DO Cisco Ball Work Phone: [facility] 03-01-2023 08:00-0400 Heart rate 62 /min DO Cisco Ball Work Phone: [facility] 03-01-2023 08:00-0400 Respiratory rate 16 /min DO Cisco Ball Work Phone: [facility] 03-01-2023 08:00-0400 SaO2% (BldA) [Mass fraction] 96 % DO Cisco Ball Work Phone: [facility] 03-01-2023 08:00-0400 Systolic blood pressure 146 mm[Hg] DO Cisco Ball Work Phone: [facility] 03-01-2023 06:58-0400 Body height 187.96 cm DO Cisco Ball Work Phone: [facility] 03-01-2023 06:58-0400 Body weight 84.8 kg DO Cisco Ball Work Phone: [facility] 02-24-2023 08:30-0400 Body height 187.96 cm Cisco Ball Other [facility] Other 02-24-2023 08:30-0400 Body mass index (BMI) [Ratio] 24.21 kg/m2 Cisco Ball Other [place] [facility] Other 02-24-2023 08:30-0400 Body weight 85.55 kg Cisco Ball Other [facility] Other 02-24-2023 08:30-0400 Diastolic blood pressure 67 mm[Hg] Cisco Ball Other [facility] Other 02-24-2023 08:30-0400 Respiratory rate 12 /min Cisco Ball Other [facility] Other 02-24-2023 08:30-0400 Systolic blood pressure 112 mm[Hg] Cisco [facility] Other [facility] Other 11-21-2022 11:45-0400 Body height 187.96 cm Cisco [facility] Other [facility] Other 11-21-2022 11:45-0400 Body mass index (BMI) [Ratio] 24.98 kg/m2 [facility] Other [facility] Other 11-21-2022 11:45-0400 Body weight 88.27 kg Cisco Ball Other [facility] Other 11-21-2022 11:45-0400 Diastolic blood pressure 73 mm[Hg] Cisco Ball Other [facility] Other 11-21-2022 11:45-0400 Respiratory rate 12 /min Cisco Ball Other [facility] Other 11-21-2022 11:45-0400 Systolic blood pressure 147 mm[Hg] Cisco Ball Other [facility] Other 10-22-2022 08:30-0500 Body height 187.96 cm Cisco [facility] Other [facility] Other 10-22-2022 08:30-0500 Body mass index (BMI) [Ratio] 24.73 kg/m2 Cisco [facility] Other [facility] Other 10-22-2022 08:30-0500 Body weight 87.36 kg Cisco Ball Other [facility] Other 10-22-2022 08:30-0500 Diastolic blood pressure 64 mm[Hg] Cisco Ball Other [facility] Other 10-22-2022 08:30-0500 Respiratory rate 12 /min Cisco Ball Other [facility] Other 10-22-2022 08:30-0500 Systolic blood pressure 118 mm[Hg] Cisco Ball Other [facility] Other 10-07-2022 09:45-0500 Body height 187.96 cm Cisco Ball Other [facility] Other 10-07-2022 09:45-0500 Body mass index (BMI) [Ratio] 24.31 kg/m2 [facility] Other [facility] Other 10-07-2022 09:45-0500 Body weight 85.91 kg Cisco Ball Other [facility] Other 10-07-2022 09:45-0500 Diastolic blood pressure 70 mm[Hg] Cisco [facility] Other [facility] Other 10-07-2022 09:45-0500 Respiratory rate 12 /min Cisco Ball Other [facility] Other 10-07-2022 09:45-0500 Systolic blood pressure 122 mm[Hg] Cisco Ball Other [place] [facility] Other 08-27-2022 10:48-0500 Diastolic blood pressure 82 mm[Hg] DO Cisco Ball Work Phone: [facility] 08-27-2022 10:48-0500 Heart rate 64 /min DO Cisco Ball Work Phone: [facility] 08-27-2022 10:48-0500 Respiratory rate 16 /min DO Cisco Ball Work Phone: [facility] 08-27-2022 10:48-0500 SaO2% (BldA) [Mass fraction] 96 % DO Cisco Ball Work Phone: [facility] 08-27-2022 10:48-0500 Systolic blood pressure 146 mm[Hg] DO Cisco Ball Work Phone: [facility] 08-27-2022 09:01-0500 Body height 187.96 cm DO Cisco Ball Work Phone: [facility] 08-27-2022 09:01-0500 Body temperature 97.8 [degF] DO Cisco Ball Work Phone: [facility] 08-27-2022 09:01-0500 Body weight 86.63 kg DO Cisco Mcadams Work Phone: [facility] Encounters Encounter Date Encounter Type Care Provider Facility Start: 11-06-2023 End: 11-06-2023 ambulatory [facility] Work Phone: Start: 11-06-2023 End: 11-06-2023 Patient encounter procedure [facility] Work Phone: Start: 10-28-2023 End: 10-28-2023 Patient encounter procedure [facility] Work Phone: Start: 10-05-2023 Non-patient / Non-visit [facility] Work Phone: Start: 09-21-2023 End: 09-21-2023 ambulatory Cisco Mcadams Other [facility] Other Start: 09-21-2023 Telephone encounter Cisco Mcadams [facility] Start: 09-16-2023 End: 09-16-2023 ambulatory Cisco Mcadams Other [facility] Other Start: 09-16-2023 Telephone encounter Cisco Mcadams [facility] Start: 09-15-2023 End: 09-15-2023 ambulatory Cisco Mcadams Other [facility] Other Start: 09-15-2023 Office outpatient vi sit 15 minutes Cisco Mcadams [facility] Start: 09-15-2023 End: 09-15-2023 Patient encounter procedure [facility]- Start: 09-04-2023 End: 09-04-2023 ambulatory MIGUEL ANGEL JACOBSEN Not Available Start: 09-02-2023 End: 09-02-2023 Patient encounter procedure Angely GAGE General Surgery N[facility] Start: 08-30-2023 End: 08-30-2023 ambulatory Cisco Mcadams Other [facility] Other Start: 08-30-2023 Telephone encounter Cisco HANNA [facility] Start: 08-28-2023 End: 08-28-2023 ambulatory Cisco Mcadams Other [facility] Other Start: 08-28-2023 Patient encounter procedure Cisco Mcadams [facility] Start: 08-28-2023 Telephone encounter Cisco HANNA [facility] Start: 08-28-2023 End: 08-28-2023 Patient encounter procedure [facility] Work Phone: Start: 08-26-2023 ambulatory Angely R NILL Facility : [place] Start: 08-26-2023 End: 08-26-2023 Patient encounter procedure Angely R NILL General Surgery Nill/[facility] [place] Start: 08-24-2023 End: 08-24-2023 ambulatory Cisco Mcadams Other [facility] Other Start: 08-24-2023 Telephone encounter Cisco HANNA [facility] Start: 08-23-2023 End: 08-23-2023 ambulatory Cisco Mcadams Other [facility] Other Start: 08-23-2023 Telephone encounter Cisco HANNA [facility] Start: 07-28-2023 End: 07-29-2023 ambulatory Angely R NILL Facility:[facility] [place] Start: 07-28-2023 End: 07-28-2023 Patient encounter procedure Angely R NILL General Surgery Nill/[facility] [place] Start: 07-01-2023 End: 07-01-2023 ambulatory Cisco Mcadams Other [facility] Other Start: 07-01-2023 Transitional care manage srvc 14 day discharge Cisco Mcadams [facility] Start: 06-26-2023 ambulatory Angely MCCORMICKL Facility:[facility] Start: 06-24-2023 End: 06-24-2023 ambulatory Cisco Mcadams Other [facility] Other Start: 06-24-2023 Telephone encounter Cisco Mcadams FP [facility] Start: 06-20-2023 End: 06-22-2023 Evaluation and management of inpatient Berhaneeddy ChambersWahoo Facility:[facility] Start: 06-20-2023 Evaluation and management of inpatient DO Cisco Mcadams Work Phone: [facility] Work Phone: Start: 06-20-2023 observation encounter DO Shaji Mcadams Work Phone: [facility] Work Phone: Start: 06-19-2023 End: 06-19-2023 ambulatory Cisco Mcadams Other [facility] Other Start: 06-19-2023 Telephone encounter Cisco Mcadams [facility] Start: 06-18-2023 End: 06-18-2023 ambulatory Cisco Mcadams Other [facility] Other Start: 06-18-2023 Telephone encounter Cisco Mcadams [facility] Start: 06-17-2023 End: 06-17-2023 ambulatory Cisco Mcadams Other [facility] Other Start: 06-17-2023 Office outpatient vi sit 15 minutes Cisco Mcadams [facility] Start: 06-17-2023 Telephone encounter Cisco Mcadams [facility] Start: 06-02-2023 End: 06-02-2023 ambulatory Cisco Abbe Other [facility] Other Start: 06-02-2023 Telephone encounter Cisco Mcadams [facility] Start: 05-20-2023 End: 05-20-2023 ambulatory Cisco Abbe Other [facility] Other Start: 05-20-2023 Office outpatient vi sit 25 minutes Cisco Ball [facility] Start: 05-11-2023 End: 05-11-2023 ambulatory Cisco Abbe Other [facility] Other Start: 05-11-2023 Telephone encounter Cisco Ball [facility] Start: 04-27-2023 End: 04-27-2023 ambulatory Cisco Ball Other [facility] Other Start: 04-27-2023 Telephone encounter Cisco Ball [facility] Start: 04-23-2023 End: 04-23-2023 ambulatory Cisco Mcadams Other [facility] Other Start: 04-23-2023 Telephone encounter Cisco Ball [facility] Start: 04-21-2023 End: 04-21-2023 ambulatory Cisco Ball Other [facility] Other Start: 04-21-2023 Office outpatient vi sit 25 minutes Cisco Ball [facility] Start: 03-16-2023 End: 03-16-2023 ambulatory Cisco Mcadams Other [facility] Other Start: 03-16-2023 Telephone encounter Cisco Ball [facility] Start: 03-04-2023 Telephone encounter Cisco Ball [facility] Start: 03-04-2023 End: 03-04-[address] Cisco Mcadams [facility] Other Start: 03-03-2023 End: 03-03-2023 ambulatory Cisco Abbe Other [facility] Other Start: 03-03-2023 Telephone encounter Cisco Mcadams [facility] Start: 03-01-2023 End: 03-02-[address] Cisco Mcadams Facility:[id number] Start: 03-01-2023 Evaluation and management of inpatient DO Cisco Mcadams Work Phone: [facility] [place] [facility] Work Phone: Start: 03-01-2023 observation encounter DO Shaji carrillo Ball Work Phone: [facility] Work Phone: Start: 02-24-2023 End: 02-24-2023 ambulatory Cisco Ball Other [facility] Other Start: 02-24-2023 Office outpatient vi sit 25 minutes Cisoc Ball [facility] Start: 01-20-2023 End: 01-20-2023 ambulatory Cisco Ball Other [facility] Other Start: 01-20-2023 Telephone encounter Cisco Abbe [facility] Start: 11-26-2022 End: 11-26-2022 ambulatory EHAB [facility] Start: 11-21-2022 End: 11-21-2022 ambulatory Cisco Ball Other [facility] Other Start: 11-21-2022 Office outpatient vi sit 15 minutes Cisco Ball [facility] Start: 10-22-2022 End: 10-22-2022 ambulatory Cisco Ball Other [facility] Other Start: 10-22-2022 Office outpatient vi sit 25 minutes Cisco Ball [facility] Start: 10-12-2022 End: 10-12-2022 ambulatory Cisco Ball Facility:[facility] Start: 10-12-2022 End: 10-12-2022 ambulatory DO Cisco Ball Work Phone: [facility] Work Phone: Start: 10-12-2022 End: 10-12-2022 Patient encounter procedure DO Cisco Ball Work Phone: [facility] [place] Work Phone: Start: 10-07-2022 End: 10-07-2022 ambulatory Cisco Ball Other [facility] Other Start: 10-07-2022 Office outpatient vi sit 15 minutes Cisco RICHARDS [facility] Start: 09-14-2022 End: 09-14-[address] CISCO MCADAMS Facility:[facility] Start: 09-08-2022 End: 09-08-2022 ambulatory Imad Asaad Other [facility] Other Start: 09-08-2022 Telephone encounter Imad Asaad [facility] Start: 09-05-2022 End: 09-05-2022 ambulatory Cisco Mcadams Other [facility] Other Start: 09-05-2022 Telephone encounter Cisco HANNA [facility] Start: 09-03-2022 End: 09-03-2022 ambulatory Imad Asaad Other [facility] Other Start: 09-03-2022 Telephone encounter Imad Asaad [facility] Start: 09-01-2022 End: 09-01-2022 ambulatory Imad Asaad Other [facility] Other Start: 09-01-2022 Telephone encounter Imad Asaad [facility] Start: 08-27-2022 Telephone encounter Stalin HANNA [facility] Start: 08-27-2022 End: 08-27-2022 ambulatory Cisco Mcadams Facility:[facility] Start: 08-27-2022 End: 08-27-2022 Admission to same day surgery center DO Cisco Mcadams Work Phone: [facility] Work Phone: Start: 08-27-2022 End: 08-27-2022 ambulatory DO Cisco Mcadams Work Phone: [facility] Work Phone: Start: 08-22-2022 End: 08-22-2022 ambulatory Imad Asaad Other [facility] Other Start: 08-22-2022 Telephone encounter Maryjane Christensen [facility] [employer] [facility] Start: 08-20-2022 End: 08-20-2022 ambulatory Cisco Mcadams Other [facility] Other Start: 08-20-2022 Telephone encounter Cisco Mcadams [facility] Start: 08-19-2022 End: 08-19-2022 ambulatory Cisco Mcadams Other [facility] Other Start: 08-19-2022 Telephone encounter Cisco Mcadams [facility] Start: 07-28-2022 End: 07-29-[address] CISCO MCADAMS Facility:[facility] Start: 07-01-2022 End: 07-01-[address] CISCO MCADAMS Facility:[facility] Start: 06-29-2022 End: 06-29-[address] CISCO MCADAMS Facility:[facility] Start: 05-02-2022 End: 05-03-[address] CISCO MCADAMS Facility:[facility] Start: 03-28-2022 End: 03-28-[address] DAISHA ZULETA Facility:[facility] Start: 03-20-2022 End: 03-20-2022 ambulatory MIGUEL ANGEL JACOBSEN Facility:[facility] Start: 02-04-2022 End: 02-04-[address] CISCO MCADAMS Facility:[facility] Procedures Date Procedure Procedure Detail Performing Clinician Start: 08-19-2023 Repair of left inguinal hernia Angely RUSSELL Start: 06-20-2023 SARS-CoV-2, Influenza & RSV (PCR) DO Juan Mcadams Work Phone: Start: 03-01-2023 CT of head without contrast DO Cisco Mcadams Work Phone: Start: 03-01-2023 Plain chest X-ray DO Cisco Mcadams Work Phone: Start: 08-27-2022 Esophagogastroduodenoscopy DO Cisco salazar Work Phone: Start: 08-27-2022 Colonoscopy Angely GAGE Start: 08-27-2022 Esophagogastroduodenoscopy Angely MCCORMICKSalvador Start: 07-28-2022 PSA screening MIGUEL ANGEL JACOBSEN Comment on above: Performed By: #### [facility] #### [facility] [address] [address] [address] Patrica Nathan Cardiac catheterization Renato GAGE History of operative procedure on shoulder Angely MCCORMICKSalvador Comment on above: x3 Repair of right inguinal hernia Angely MCCORMICKSalvador Plan of Treatment Date Care Activity Detail Author Start: 06-20-2023 Plain chest X-ray XR chest 2V* [facility] Start: 06-20-2023 XR Chest 2 Views [facility] Start: 06-20-2023 Hospital admission [facility] Start: 06-20-2023 [facility] Start: 06-20-2023 CT of head without contrast CT head/brain wo con [facility] Start: 06-20-2023 CT Unspecified body region WO contrast [facility] Start: 03-01-2023 Physical therapy procedure [facility] Start: 03-01-2023 Referral to occupati onal therapist [facility] Start: 03-01-2023 Referral to neurologist [facility] Start: 03-01-2023 Hospital admission [facility] Start: 03-01-2023 [facility] Start: 08-27-2022 [facility] Helicobacter pylori Ag [Presence] in Stool by Immunoassay [facility] Patient Education Colon Polypectomy (DC) [facility] Work Phone: Immunizations Immunization Date Immunization Notes Care Provider Hugo laboy 07-01-2023 influenza virus vaccine, unspecified formulation [facility] 07-01-2023 influenza, high dose seasonal, preservative-free Cisco Mcadams Other [facility] Other 07-04-2022 SARS-CoV-2 (COVID-19 ) [id number] Angely GAGE [facility] 06-05-2022 influenza virus vaccine, split virus (incl. purified surface antigen) Cisco Mcadams Other [facility] Other 06-05-2022 influenza virus vaccine, unspecified formulation [facility] 03-28-2022 diphtheria, tetanus toxoids and acellular pertussis vaccine, unspecified formulation Cisco Mcadams Other [facility] 11-16-2021 SARS-CoV-2 mRNA (ylenjhyelkx-waeu-blol ose) vaccine Angely GAGE [facility] 06-28-2021 influenza virus vaccine, split virus (incl. purified surface antigen) Cisco Mcadams Other [facility] Other 06-28-2021 influenza virus vaccine, unspecified formulation [facility] 05-18-2021 SARS-CoV-2 (COVID-19 ) mRNA BNT-162b2 vax Angely GAGE [facility] Comment on above: Result Comment: 2022: [id number] 10-06-2020 SARS-CoV-2 (COVID-19 ) mRNA BNT-162b2 vax Angely GAGE [facility] Comment on above: Result Comment: 2022: [id number] 09-15-2020 COVID-19 Vaccine Pfizer - Documentation Purposes Only Cisco Mcadams Other [facility] Comment on above: Result Comment: 2022: [id number] 05-30-2020 influenza virus vaccine, split virus (incl. purified surface antigen) Cisco Mcadams Other [facility] Other 05-30-2020 influenza virus vaccine, unspecified formulation [facility] 06-01-2019 influenza virus vaccine, split virus (incl. purified surface antigen) Cisco Mcadams Other [facility] Other 06-01-2019 influenza virus vaccine, unspecified formulation [facility] 06-09-2018 influenza virus vaccine, split virus (incl. purified surface antigen) Cisco Abbe Other [facility] [employer] Other 06-09-2018 influenza virus vaccine, unspecified formulation [facility] 05-14-2017 tetanus and diphther ia toxoids, adsorbed, preservative free, for adult use (5 Lf of tetanus toxoid and 2 Lf of diphtheria toxoid) Cisco Mcadams Other [facility] 05-26-2016 influenza virus vaccine, split virus (incl. purified surface antigen) Cisco Abbe Other [facility] [employer] Other 05-26-2016 influenza virus vaccine, unspecified formulation [facility] 11-27-2015 pneumococcal conjuga te vaccine, 13 valent Cisco Abbe Other [facility] 05-30-2015 influenza virus vaccine, split virus (incl. purified surface antigen) Cisco Abbe Other [facility] [employer] Other 05-30-2015 influenza virus vaccine, unspecified formulation [facility] 06-14-2013 pneumococcal polysaccharide vaccine, 23 valent Cisco Mcadams Other [facility] 05-23-2013 tetanus and diphther ia toxoids, adsorbed, preservative free, for adult use (5 Lf of tetanus toxoid and 2 Lf of diphtheria toxoid) Cisco Abbe Other [facility] NEGATED: Highlighted row has not occurred!07-28-2023 influenza virus vaccine, unspecified formulation Angely GAGE [facility] Payers Date Payer Category Payer Self-pay 1961 Medicare [id number] 1961 Unknown [id number] 1945 Unknown [id number] 2.16.84 0.1.386844.3.579.2.593 1945 Unknown [id number] 2.16.84 0.1.492921.3.579.2.593 1945 Unknown [id number] 2.16.84 0.1.603838.3.579.2.593 1945 Unknown [id number] 2.16.84 0.1.341441.3.579.2.593 1943 Unknown [id number] 2.16.84 0.1.237273.3.579.2.593 1943 Unknown [id number] 2.16.84 0.1.922638.3.579.2.593 1943 Unknown [id number] 2.16.84 0.1.461117.3.579.2.593 1943 Unknown [id number] 2.16.84 0.1.472605.3.579.2.593 1943 Unknown [id number] 2.16. 840.1.705017.3.579.2.356 1945 Unknown [id number] 2.16.8 40.1.771207.3.579.2.727 1945 Unknown [id number] 2.16.8 40.1.873543.3.579.2.727 1943 Unknown [id number] 2.16.84 0.1.117991.3.579.2.1259 Unknown [id number] 2.16.8 40.1.394438.3.579.2.531 Unknown [id number] 2.16.8 40.1.242701.3.579.2.531 Unknown [id number] 2.16.8 40.1.970782.3.579.2.531 Unknown [id number] 2.16.8 40.1.005560.3.579.2.531 Social History Date Type Detail Facility Tobacco smoking stat us PAIS Unknown if ever smoked [facility] Work Phone: Start: 1945 Sex Assigned At Male [facility] At [facility] Start: 03-01-2023 End: 06-20-2023 Tobacco smoking status NHIS Ex-smoker (finding) [facility] Tobacco smoking status Never [facility] [place] Goals Date Patient Goal Desired Activity /State Functional Status Date Assessment Result Facility 07-28-2023 Functional Status N/A [facility] [place] Clinical Notes 03-20-2022 to 09-16-2023 Note Date & Type Note Facility 09-16-2023 Evaluation note Encounter Date Diagnosis Assessment Notes Aug, GREYSON (generalized anxiety disorder) (ICD-10 - F41.1) [facility] Other 01-30-2024 Evaluation note* Encounter Date Diagnosis Assessment Notes Treatment Notes Treatment Clinical Notes Aug, Panic attack (ICD-10 - F41.0) Continue Buspar Healthy diet, avoid stimulants. Keep active, daily exercise. May consider initiating SSRI. Aug, Primary hypertension (ICD-10 - I10) This patient is instructed to consume a healthy, low-fat, low-salt diet. They are also encouraged to continue exercise to achieve/maintain a normal BMI. Patient is instructed on home BP measurements: - rest for 5 minutes w/o talking.- positioned w/ feet on floor and arm supported.- average best 2/3 readings w/ goal < 135/85.- update office w/ home readings in 2 weeks. Aug, Peripheral polyneuropathy (ICD-10 - G62.9) Continue Gabapentin Keep active Fall precautions, inspect feet daily for cuts. Aug, Cerebral atherosclerosis (ICD-10 - I67.2) Continue primary prevention measures. Reviewed stroke symptoms and instructed to go to ER for suspicious symptoms Aug, MCI (mild cognitive impairment) (ICD-10 - G31.84) Referred to Neurology w/o treatment Referred and scheduled w/ Neuropsychiatric testing [facility] Other 01-12-2024 Evaluation note* Encounter Date Diagnosis Assessment Notes Treatment Notes Treatment Clinical Notes Aug, Medicare annual wellness visit, subsequent (ICD-10 - Z00.00) Personalized health advice was given to the beneficiary including a written plan for screenings discussed and provided. Advanced care planning reviewed and/or information given as requested. Additional counseling was provided here today in regards to, [ ]. The above visit was performed by [ ], under direct supervision of [ ]. Document reviewed and amended by provider signed below. Aug, Primary hypertension (ICD-10 - I10) This patient is instructed to consume a healthy, low-fat, low-salt diet. They are also encouraged to continue exercise to achieve/maintain a normal BMI. Aug, Elevated cholesterol (ICD-10 - E78.00) Instructed on diet and exercise with continued statin therapy.Discussed the beneficial effects of lowering cholesterol in reducing the risk for cerebrovascular and cardiovascular disease. Aug, Cerebral atherosclerosis (ICD-10 - I67.2) Healthy diet and exercise Continue secondary preventive measures. Aug, MCI (mild cognitive impairment) (ICD-10 - G31.84) Completed Neuropsych testing, due to return for interpretation Aug, GREYSON (generalized anxiety disorder) (ICD-10 - F41.1) Healthy diet and keep active No change in medication. Avoid abrupt d/c of medications, continue w/o interruption Aug, Peripheral polyneuropathy (ICD-10 - G62.9) Severe, taking Neurontin qid. Instructed to take 4th dose when symptoms worsen, nighttime is worse time. Aug, Gastroesophageal reflux disease with esophagitis without hemorrhage (ICD-10 - K21.00) Avoid lying flat after eating. Avoid eating 2 hours prior to bedtime. Smaller, frequent meals may be better tolerated.Weight loss if overweight.PPI with any heartburn.Monitor for dysphagia. Aug, Screening PSA (prostate specific antigen) (ICD-10 - Z12.5) Just had labs w/o PSA Symptoms of BPH tolerable Denies dysuria or hematuria PSA next OV [facility] Other 12-12-2023 NoteChief Complaint consultation for left inguinal hernia [facility] Staff 78 year old male presents on consultation from Dr. Mcadams for left inguinal hernia. Reports he noted [...] swallowing difficulties, no hearing loss, no ear infection(s),no nose bleeds. Cardiovascular: normal blood pressure, no [...] Tobacco Use:. Never Smokeless Tobacco Use:. Cigarettes, 2per day. (more content not included)...[facility] Comment: Electronically Signed By: TOO TEJADA, Angely Daniels\Date and Time Signed: 07/28/23 20:29 [id number] Evaluation note * Encounter Date Diagnosis Assessment Notes Treatment Notes Treatment Clinical Notes Jun, COVID-19 (ICD-10 - U07.1) MS [...] Fall precuations. Discussed tapering dose of Gabapentin [facility] Other 11-02-2023 Evaluation note* Encounter Date Diagnosis Assessment Notes Treatment Notes Treatment Clinical Notes Jun, COVID-19 (ICD-10 - U07.1) [facility] 11-01-2023 Evaluation note* Encounter Date Diagnosis [...] or drinking prior to bedtime. Weight loss. [facility] Other 10-04-2023 Evaluation note* Encounter Date Diagnosis [...] now. Recheck in month, consider Neurology referral [facility] Other 09-25-2023 Evaluation note* Encounter Date Diagnosis Assessment Notes Treatment Notes Treatment Clinical Notes Apr, COVID (ICD-10 - U07.1) [facility] Other 09-07-2023 Evaluation note* Encounter Date Diagnosis Assessment Notes Treatment Notes Treatment Clinical Notes Apr, Right lower quadrant abdominal pain (ICD-10 - R10.31) [facility] Other 09-05-2023 Evaluation note* Encounter Date Diagnosis [...] a trip to ER for IV hydration. [facility] Other 07-31-2023 Evaluation note* Encounter Date Diagnosis Assessment Notes Treatment Notes Treatment Clinical Notes Feb, Primary insomnia (ICD-10 - F51.01) [facility] Other 07-18-2023 Evaluation note* Encounter Date Diagnosis Assessment Notes Treatment Notes Treatment Clinical Notes Feb, Peripheral polyneuropathy (ICD-10 - G62.9) [facility] Other 07-11-2023 Evaluation note* Encounter Date Diagnosis [...] Healtlhy diet, exercise and proper sleep routine [facility] Other 06-06-2023 Evaluation note* Encounter Date Diagnosis Assessment Notes Treatment Notes Treatment Clinical Notes Jan, Peripheral polyneuropathy (ICD-10 - G62.9) [facility] Chief Complaint: Patient here for 1 year follow up CAD, hypertension, and hyperlipidemia. Had routine labs in Jul and Aug. Patient said Dr. Mcadams dropped his aspirin down to every other day due to easy bruising. He fell in Nov in a bath rub and broke his rib. He stills works every day. Says he feels good. HPI: Mr. Patel presents to clinic for routine follow-up. PMHx: CAD, HTN, HLD Seeing an capital equipment specialist, was told he has glaucoma. Denies [...] 5. Follow up with me in the [facility] in 1 to 2 months. 6. Follow up with Dr. Mcadams as scheduled; would recommend a neurological evaluation [...] E78.2: Mixed hyperlipidemia 3. Coronary arteriosclerosis in [place] artery - Continue medications as prescribed including aspirin, Lipitor, metoprolol I25.10: Atherosclerotic heart disease of [place] coronary artery without angina pectoris metoprolol tartrate 25 mg tablet - TAKE ONE-HALF TABLET BY MOUTH TWICE DAILY Qty: 90 tablet(s) Refills: 3 Pharmacy: [id number] Plan: Continue medi (more content not included)...[facility] 11-21-2022 Evaluation note* Encounter Date Diagnosis Assessment [...] continue exercise to achieve/maintain a normal BMI. [facility] Other 03-08-2023 Evaluation note* Encounter Date Diagnosis [...] in remission (ICD-10 - F17.211) Continue abstinence [facility] Other 02-21-2023 Evaluation note* Encounter Date Diagnosis [...] Fall precautions. Inspect feet daily for cuts. [facility] Other 01-18-2023 Evaluation note* Encounter Date Diagnosis Assessment Notes Treatment Notes Treatment Clinical Notes Aug, Helicobacter pylori (H. pylori) (ICD-10 - A04.8) [facility] 01-11-2023 History and physical note Author Maryjane Christensen [facility] August 27, 2022 10:16am Note Date/Time August 27, 2022 1 0:16am [facility] [address] [place] [address] Gastroenterology H&P Signed Patient: Yonatan Patel MR#: [id number] : 1945 Acct:[id number] Age/Sex: 77 / M Adm Date: 3 Loc: Room: Type: [facility] Attending Dr: Alek Oliva MD Copies to: Cisco Mcadams,MD Alek Wang MD~ Date of Service: 08/27/2022 [...] signed by Maryjane Christensen MD> 08/27/22 1016 [facility] Work Phone: 1(325) 367-470201-11-2023 Procedure [facility]01-04-2023 Evaluation note* Encounter Date Diagnosis Assessment Notes Treatment Notes Treatment Clinical Notes Aug, Primary insomnia (ICD-10 - F51.01) [facility] 08-04-2022 NoteHISTORY AND PHYSICAL EXAMINATION Date:03/19/2022 [...] doing so in the near future. 3. [id number] patient was briefed in the office and [...] and go forward with this elective procedure.[id number] NoteOPERATIVE NOTE OPERATION DATE: 03/20/2022 SURGEON: Miguel Angel Jacobsen D.O. PREOPERATIVE DIAGNOSIS: 1. Nuclear sclerotic cataract [...] ensuring mobility, phacoemulsification was performed in a efcexyi-rog-qpuzkc-type fashion. After all nuclear material had been [...] and after satisfaction could be achieved, the molecular biologist and the gonioprism were removed from the [...] up the following day for postoperative care.[facility] note Author [facility] March 01, 2023 2:24pm Note Date/Time March 01, 2023 2:24 pm [facility] [address] [place] [address] Neurology Consult Note Signed Patient: Yonatan Patel MR#: [id number] : 1945 Acct:[id number] Age/Sex: 77 / M Adm Date: 3 Loc: 3T Room: [address] [place] [address] Type: ADM INOo Attending Dr: Bobo Villagomez MD Copies to: DO Bobo Adler MD Steven Benedict, MD~ HPI Consult Date: 03/01/23 Milk Deliverer: Berhane Trammell MD Reason for consult: Leg [...] Selena Reid M.D.03/01/2023 9:15 AM Dictation Location: [place] 03/01/23 07:02 IMPRESSION: ATROPHY AND CHRONIC MICROVASCULAR CHANGES. NO DEFINITE ACUTE INTRACRANIAL ABNORMALITY. FOLLOW-UP IS RECOMMENDED, SYMPTOMS WARRANT. COMMENT: Preliminary report was provided at 0730 hours. Impression dictated by: Selena Reid M.D.03/01/2023 8:13 AM Dictation Location: [place] [address] Therapy Recommendations Therapy Recommendations: OT Recommendations OT [...] signed by MD Berhane Trammell> 03/01/23 1424 [facility] Work Phone: Discharge summary Author Angely Lee [facility] March 02, 2023 5:49pm Note Date/Time March 02, 2023 5:43 pm [facility] [address] [place] [address] Discharge Summary Signed Patient: Yonatan Patel MR#: [id number] : 1945 Acct:[id number] Age/Sex: 77 / M Adm Date: 3 Loc: Room: [address] [place] [address]: Angely Lee DO Copies to: DO Angely Adler DO~ Providers Date of Discharge: 03/02/23 Discharging Provider: Angely Lee Primary Care Provider: Cisco Mcadams Consults: 03/01/23 08:40 Consult to Neurology Routine [...] please call to reschedule if needed.) Cisco Mcadams DO [Primary Care Provider] - 03/09/23 9:00 am (You have been scheduled for a follow up appointment for the following date and time, please call to reschedule if needed.) Documented By: Angely Lee DO 03/02/23 17 37 Signed By: <Electronically signed by Angely Lee DO> 03/02/23 1749 [facility] [employer] Work Phone: Evaluation + Plan note No data available for this section [facility] [place] Evaluation + Plan note Future Appointments Appointment Date:09/02/2023 02:40:00 PM Scheduled Provider:Angely GAGE MD Location:[facility] Appointment Type: Post Op 15 [facility] [place] Evaluation noteNo assessment information available [facility] Work Phone: Evaluation noteNo InformationNort [employer]ir[employer] Other Evaluation note* Diagnosis Onset Date Resolution Status Bilateral leg pain acute Numbness of left hand acute [facility] Work Phone: evaluation note* Diagnosis Onset Date Resolution Status Adverse drug effect acute Altered mental status acute COVID acute Hypertension acute Lab test positive for detection of COVID-19 virus acute Neuropathy acute [facility] Work Phone: Evaluation note* Diagnosis Onset Date Resolution Status GREYSON (generalized anxiety disorder) acute GERD (gastroesophageal reflux disease) acute Hypercholesteremia acute Hypertension acute Peripheral polyneuropathy ac [place] Primary insomnia acute [facility] Work Phone: History and physical note Author Bobo Villagomez [facility] March 01, 2023 9:50am Note Date/Time March 01, 2023 9:50 am [facility] [address] [place] [address] Hospitalist H&P Signed Patient: Yonatan Patel MR#: [id number] : 1945 Acct:[id number] Age/Sex: 77 / M Adm Date: 3 Loc: Room: [address] [place] [address] Type: ADM INOo Attending Dr: Bobo Villagomez [...] except as mentioned elsewhere in the documentation REPLACED BY [facility] Medical History Cataract Hypercholesteremia Hypertension Surgical History [...] % (Auto) 23.7 % (.) 03/01/23 07:06 [place] % (Auto) 8.3 % (.) 03/01/23 07:06 Eos % (Auto) 1.4 % (.) 03/01/23 07:06 Baso % (Auto) 0.7 % (.) 03/01/23 07:06 Nucleat RBC Rel Count 0.3 /100 WBC (0-0.5) 03/01/23 07:06 Neut # (Auto) 3.5 x10E3/uL (1.8-7.7) 03/01/23 07:06 Lymph # (Auto) 1.3 x10E3/uL (1.00-4.8) 03/01/23 07:06 [place] # (Auto) 0.4 x10E3/uL (0.0-0.8) 03/01/23 07:06 [...] pH 7.5 (5.0-9.0) 03/01/23 07:49 Ur Specific [place] 1.014 (1.001-1.030) 03/01/23 07:49 Urine Protein Negative [...] signed by Bobo Villagomez MD> 03/01/23 0950 [facility] Work Phone: History general Narrative - Reported* Type Description Date Medical History hypercholesterolemia Medical History hypertension Medical History anxiety Medical History Esophageal reflux Medical History glaucoma Medical History neuropathy Surgical History heart catheterization Surgical History shoulder surgery Surgical History colonoscopy with polyp resectio n 08/27/21 Surgical History EGD 08/27/21 Hospitalization History see above [facility] Other History general Narrative - Reported* Type Description Date Medical History hypercholesterolemia Medical History hypertension Medical History anxiety Medical History Esophageal reflux Medical History glaucoma Medical History neuropathy Surgical History heart catheterization Surgical History shoulder surgery Surgical History colonoscopy with polyp resectio n 08/27/22 Surgical History EGD 08/27/22 Hospitalization History see above [facility] Other History general Narrative - Reported* Type Description Date Medical History hypercholesterolemia Medical History hypertension Medical History anxiety Medical History Esophageal reflux Medical History glaucoma Medical History neuropathy Surgical History heart catheterization Surgical History shoulder surgery Surgical History colonoscopy with polyp resectio n 08/27/22 Surgical History EGD 08/27/22 Surgical History Left Inguinal Hernia Repair 08/18 024 Hospitalization History see above [facility] Other Hospital Discharge instructions Additional Instructions DISCHARGE [...] follow up with PCP - Office number [phone]. [facility] Work Phone: Hospital Discharge instructions No data available for this section [facility] [place] Progress note Author Berhane Trammell [facility] March 02, 2023 3:27pm Note Date/Time March 02, 2023 3:23 pm [facility] [address] [place] [address] Neurology Progress Note Signed Patient: Yonatan Patel MR#: [id number] : 1945 Acct:[id number] Age/Sex: 77 / M Adm Date: 3 Loc: 3T Room: [address] [place] [address] Type: ADM INOo Attending Dr: Angeyl Lee DO Copies to: ~ Date of [...] 03/02/23 12:00 03/02/23 12:00 03/02/23 12:00 03/02/23 12:03/02/23 12:00 Neuro Other: Neurological exam: General: The [...] signed by MD Berhane Trammell> 03/02/23 1527 [facility] Work Phone: Progress note No data available for this section [facility] [place] Reason for referral (narrative)* Reason Referral for left in direct inguinal hernia Diagnosis 1 Indirect left inguin al hernia (K40.90) Referral Organization [facility] Abbe sequeira Referring Provider First Name Cisco Referring Provider Last Name Abbe Referring Provider Specialty Internal Ma dicine Referred Organization [facility] Referred Provider Angely Gage Ref[place] [address] [place],[address] Referred Provider Specialty Surgery Referral Priority Urgent General Notes Mr. Patel has a left indirect inguinal hernia w/ intermittent episodes of increased pain, abdominal distention and nausea. He has experienced 3-4 of these episodes in the past 2 weeks, with increased intensity and duration of pain. A recent episode was associated w/ a transient fever and chills. [facility] Other Reason for visit NarrativeERROR/Gastro referral issue [facility] Other Chief Complaint and Reason for Visit Chief Complaint Weight Loss Chief Complaint Weight Loss a04.8 Chief Complaint Leg numbness Reason for Visit Bilateral leg pain Numbness of left hand Chief Complaint CONFUSION Reason for Visit Adverse drug effect Altered mental status COVID Hypertension Lab test positive for detection of COVID-19 virus Neuropathy Chief Complaint Wellness/Er Follow U p Ear Ringing Amb Documentation 1 month bowel problems Reason for Visit GREYSON (generalized anx iety disorder) GERD (gastroesophageal reflux disease) Hypercholesteremia Hypertension Peripheral polyneuropathy Primary insomnia Family History Relationship Condition Age at Onset Recorded Date/T oli father Myocardial infarction Unknown family member Myocardial infarction Unknown Not Specified Malignant neoplasm Unknown brother Malignant neoplasm Unknown Relationship Condition Age at Onset Recorded Date/T oli father Myocardial infarction Unknown family member Myocardial infarction Unknown Not Specified Malignant neoplasm Unknown brother Malignant neoplasm Unknown Myocardial infarction Unknown Diabetes mellitus Unknown Cerebrovascular accident (CVA) Unknown Relationship Condition Age at Onset Recorded Date/T oli father Myocardial infarction Unknown family member Myocardial infarction Unknown Not Specified Malignant neoplasm Unknown brother Malignant neoplasm Unknown Myocardial infarction Unknown Diabetes mellitus Unknown Cerebrovascular accident (CVA) Unknown father Unknown family member Unknown Not Specified Unknown Advance Directives Advance Directive Response Recorded Date/ Time Advance Directives No August 27, 2022 8:28am Advance Directive Response Recorded Date/ Time Advance Directives No August 27, 2022 9:28am Summary Purpose Additional Source Comments Care Teams (unrecognized sec tion and content) Team Status: Active Member Role Status Adriana Mcadams DO Primary Care Provider Active Team Status: Inactive Member Role Status Adriana Mcadams DO Attending Provider Active Sta rt: August 28, 2023 End: August 28, 2023 Team Status: Inactive Member Role Status Adriana Mcadams DO Attending Provider Active Sta rt: September 15, 2023 End: September 15, 2023 Team Status: Active Member Role Status Adriana Mcadams DO Primary Care Provider Active Start: October 05, 2023 FAMILIA Hector Attending Provider Active Start : October 05, 2023 Team Status: Inactive Member Role Status Adriana Mcadams DO Primary Care Provide r, Attending Provider Active Start: October 28, 2023 End: October 28, 2023 Team Status: Inactive Member Role Status Adriana Mcadams DO Primary Care Provide r, Attending Provider Active Start: November 06, 2023 End: November 06, 2023 Team Status: Active Member Role Status Adriana Mcadams DO Primary Care Provider Active Team Status: Active Member Role Status Dates Cisco Ball , DO Primary Care Provider Active Alejo Lynn , DO Emergency Provider Active Bobo Villagomez MD Admit Provider, Attending Provi jeanette Active Berhane Trammell MD Other Provider Active Team Status: Inactive Member Role Status Dates Alek Oliva MD Attending Provider Active Cisco Mcadams , Primary Care Provider Active Team Status: Inactive Member Role Status Dates Cisco Mcadams , Primary Care Provider Active Maryjane Christensen MD Attending Provider Active Team Status: Active Member Role Status Dates Cisco Mcadams DO Primary Care Provider Active Sandoval Palacios Jr, MD Emergency Provider Active Warren Quiroz MD Admit Provider, Attending Provider Active Team Status: Inactive Member Role Status Dates Cisco Mcadams , Attending Provider Active Sta rt: August 28, 2023 End: August 28, 2023 Team Status: Inactive Member Role Status Dates Cisco Mcadams DO Attending Provider Active Sta rt: September 15, 2023 End: September 15, 2023 Team Status: Active Member Role Status Dates Cisco Mcadams DO Primary Care Provider Active Start: October 05, 2023 FAMILIA Hector Attending Provider Active Start : October 05, 2023 Team Status: Inactive Member Role Status Dates Cisco Mcadams DO Primary Care Provide r, Attending Provider Active Start: October 28, 2023 End: October 28, 2023 Team Status: Inactive Member Role Status Dates Cisco Mcadams DO Primary Care Provide r, Attending Provider Active Start: November 06, 2023 End: November 06, 2023 (unrecognized sect ion and content) No Status Records FoundNo Status Records FoundNo Status Records FoundNo Status Records FoundNo Status Records FoundNo Status Records Found INFORMATION SOURCE (unrecogn ized section and content) DATE CREATED AUTHOR 09/16/2022 [facility] DATE CREATED AUTHOR AUTHOR'S ORGANIZ ATION 11/27/2022 [facility] DATE CREATED AUTHOR AUTHOR'S ORGANIZ ATION 03/05/2023 [facility] DATE CREATED AUTHOR AUTHOR'S ORGANIZ ATION 06/25/2023 [facility] DATE CREATED AUTHOR AUTHOR'S ORGANIZ ATION 08/25/2023 [facility] DATE CREATED AUTHOR AUTHOR'S ORGANIZ ATION 09/05/2023 [facility] [place] EPIC REASON FOR VISIT (unrecogniz ed section and content) med refillPrescription Refil lNo InformationNo InformationNo InformationGI REFERRAL NOTEH.PYLORIClinical Acute IllnessDiarrheaDiscussion3 week follow upwound on left armRefillNo InformationNo Information4 month Follow upNo InformationTCMNo InformationRefillPains in stomachNo InformationCT resultsNo InformationER follow upappointment timeReferralherniaCOVID +ERRORTCMhospital follow upNo InformationWellness/ER follow upNo InformationNo InformationreminderMedication Questionear ringingMedication Concern Goals (unrecognized section and content) Goals may [...] BE BASED ON THE PRIMARY CLINICAL RECORDS. [facility] [employer] [facility]. provides no warranty or guarantee of the accuracy or completeness of information in this document.
--- NOTE | 2023-11-16 09:01 | ED_ITS ---
HPI HPI - General Adult General Chief complaint: Extremity Injury, Lower Stated complaint: LOWER EXTREMITY PAIN Time Seen by Provider: 11/16/23 08:47 Source: patient and family Mode of arrival: walk-in Limitations: physical limitation Limitations comment: unable to walk do to weakness or numbness of his lower legs History of Present Illness HPI narrative: Patient is here with feeling of cold legs bilaterally. He has had a longstanding history of neuropathy in his son confirms that he has multiple symptoms that sometimes he feels like the legs are burning sometimes feels like they are cold. He is not had any trauma or injury. They have not noticed any increased swelling. He is not have a history of peripheral vascular arterial disease. I have reviewed his previous medical records. He is not on any new medication. However over the weekend apparently had copious amounts of diarrhea. He is not having any weakness of the upper extremities. He also is being treated for increasing amounts of anxiety according to the son. Related Data Home Medications ?Medication ?Instructions ?Recorded ?Confirmed atorvastatin 80 mg tablet 80 mg PO DAILY 06/19/23 08/19/23 buspirone 15 mg tablet 15 mg PO BID 06/19/23 08/19/23 gabapentin 300 mg capsule 300 mg PO QID 06/19/23 08/19/23 metoprolol tartrate 25 mg tablet 12.5 mg PO Q12H 06/19/23 08/19/23 temazepam 15 mg capsule 15 mg PO DAILY 06/19/23 08/19/23 aspirin 81 mg tablet,delayed 81 mg PO DAILY 08/07/23 08/19/23 release (Adult Aspirin Regimen) brinzolamide 1 %-brimonidine 0.2 % drp ophthalmic (eye) BID 08/07/23 eye drops,suspension (Simbrinza) latanoprost 0.005 % eye drops drp ophthalmic (eye) QPM 08/07/23 multivitamin (Daily Multi-Vitamin 1 tab PO DAILY 08/07/23 08/19/23 tablet) Previous Rx's ?Medication ?Instructions ?Recorded tramadol 50 mg tablet 50 mg PO Q6H PRN pain #7 tabs 08/19/23 ondansetron 4 mg disintegrating 4 mg PO Q6H PRN nausea and 08/23/23 tablet vomiting #20 tabs Allergies Allergy/AdvReac Type Severity Reaction Status Date / Time nirmatrelvir [From Dasiad] Allergy mental Verified 08/19/23 22:02 status change ritonavir [From Paxlovid] Allergy mental Verified 08/19/23 22:02 status change Opioid HPI Opioid Management Most Recent Opioid Data: Last Pain Scale 0 11/16/23 09:03 Last ED Pain Assessment 11/16/23 09:03 [facility] Medical History (Updated 11/16/23 @ 09:42 by Raphael Adhikari MD) Insomnia ?G47.00 - Insomnia, unspecified (ICD-10) Neuropathy ?G62.9 - Polyneuropathy, unspecified (ICD-10) Irritable bowel syndrome with constipation ?K58.1 - Irritable bowel syndrome with constipation (ICD-10) GERD (gastroesophageal reflux disease) ?K21.9 - Gastro-esophageal reflux disease without esophagitis (ICD-10) Encephalopathy ?G93.40 - Encephalopathy, unspecified (ICD-10) Cholelithiases ?K80.20 - Calculus of gallbladder without cholecystitis without obstruction (ICD-10) Colon polyp ?K63.5 - Polyp of colon (ICD-10) Glaucoma ?H40.9 - Unspecified glaucoma (ICD-10) Anxiety ?F41.9 - Anxiety disorder, unspecified (ICD-10) Rib fracture (06/2022) ?S22.39XA - Fracture of one rib, unspecified side, initial encounter for closed fracture (ICD-10) Pneumothorax (06/2022) ?J93.9 - Pneumothorax, unspecified (ICD-10) Constipation ?K59.00 - Constipation, unspecified (ICD-10) Inguinal hernia ?K40.90 - Unilateral inguinal hernia, without obstruction or gangrene, not specified as recurrent (ICD-10) Hypertension ?I10 - Essential (primary) hypertension (ICD-10) High cholesterol ?E78.00 - Pure hypercholesterolemia, unspecified (ICD-10) COVID-19 (06/17/23) ?U07.1 - COVID-19 (ICD-10) Surgical History (Updated 08/19/23 @ 09:21 by Anahi Tellez) H/O eye surgery ?Z98.890 - Other specified postprocedural states (ICD-10) History of arthroscopy of shoulder ?Z98.890 - Other specified postprocedural states (ICD-10) History of arthroscopy of shoulder ?Z98.890 - Other specified postprocedural states (ICD-10) History of cardiac catheterization ?Z98.890 - Other specified postprocedural states (ICD-10) History of arthroscopy of shoulder ?Z98.890 - Other specified postprocedural states (ICD-10) History of esophagogastroduodenoscopy (EGD) ?Z98.890 - Other specified postprocedural states (ICD-10) History of colonoscopy ?Z98.890 - Other specified postprocedural states (ICD-10) History of hernia repair ?Z98.890 - Other specified postprocedural states (ICD-10) ?Z87.19 - Personal history of other diseases of the digestive system (ICD-10) Family History (Updated 08/07/23 @ 10:22 by Ingrid Coronel NP) Other Family history of brain cancer Family history of gastric cancer Family history of myocardial infarction Social History (Updated 08/07/23 @ 10:10 by Ingrid Coronel NP) Within the past year, how often did you have a drink containing alcohol: never Score interpretation: A score less than 4 is consistent with normal alcohol consumption. Smoking status: Never smoker Non-prescribed substance use: denies use Previous occupational history: [employer] Highest level of school completed/degree received: high school graduate Exam Narrative Exam Narrative: Patient is awake alert vital signs are stable and he has moderate anxious his sinus at the bedside. Overall he does not appear ill or toxic cognition and mentation seem to be normal. Examining his legs there is no evidence of erythema swelling edema. There is no tenderness with palpation of the calves or thighs no evidence of ropiness or DVT. He has strong arterial pulses in both legs. Both legs are warm and dry. Dorsalis pedis pulses are strong bilaterally. 2-point discrimination was checked on both legs with scratch and soft sensation being intact. Deep tendon reflexes symmetrical bilaterally. Proprioception is normal bilaterally. Extensor houses longus function and Function is completely normal with no strength deficits. Constitutional Vital Signs, click to edit/add: Last Vital Signs Temp 97.7 F 11/16/23 08:35 Pulse 65 11/16/23 08:35 Resp 15 11/16/23 08:35 BP 145/74 H 04/01/24 08:35 Pulse Ox 100 11/16/23 08:35 O2 Del Method Room Air 11/16/23 08:35 Course Vital Signs Vital signs: Vital Signs Temperature 97.7 F 11/16/23 08:35 Pulse Rate 65 11/16/23 08:35 Respiratory Rate 15 11/16/23 08:35 Blood Pressure 145/74 H 11/16/23 08:35 Pulse Oximetry 100 11/16/23 08:35 Oxygen Delivery Method Room Air 11/16/23 08:35 Temperature 97.7 F 11/16/23 08:35 Pulse Rate 65 11/16/23 08:35 Respiratory Rate 15 11/16/23 08:35 Blood Pressure 145/74 H 11/16/23 08:35 Pulse Oximetry 100 11/16/23 08:35 Oxygen Delivery Method Room Air 11/16/23 08:35 Medical Decision Making MDM Narrative Medical decision making narrative: Clinical exam of the lower extremities is completely normal. With a history of diarrhea I thought he might have some potassium disorder but his potassium is 4.0 and there is no evidence of clinical dehydration or abnormalities on his BUN/creatinine. This is most likely more of an anxiety reaction to chronic neuropathy. Discharge Plan Discharge Stand Alone Forms: Portal Instructions Chief Complaint: Extremity Injury, Lower Clinical Impression: Neuropathy Patient Disposition: Home, Self-Care Time of Disposition Decision: 09:42 Prescriptions / Home Meds: No Action Simbrinza 1-0.2 % drops,suspension OPHTHALMIC (EYE) BID latanoprost 0.005 % drops OPHTHALMIC (EYE) QPM aspirin [Adult Aspirin Regimen] 81 mg tablet,delayed release (DR/EC) 81 mg PO DAILY multivitamin [Daily Multi-Vitamin] Tablet 1 tab PO DAILY tramadol 50 mg tablet 50 mg PO Q6H MDD 200 mg PRN (Reason: pain) Qty: 7 0RF ondansetron 4 mg tablet,disintegrating 4 mg PO Q6H PRN (Reason: nausea and vomiting) Qty: 20 0RF atorvastatin 80 mg tablet 80 mg PO DAILY buspirone 15 mg tablet 15 mg PO BID gabapentin 300 mg capsule 300 mg PO QID metoprolol tartrate 25 mg tablet 12.5 mg PO Q12H temazepam 15 mg capsule 15 mg PO DAILY Print Language: Monegasque Referrals: Cisco Nicholson DO [Primary Care Provider] - 1 week
[2023-11-16 09:34] LABS: Anion Gap 15.2; BUN Creatinine Ratio 14.7; Calcium 9.6 mg/dL (8.5-10.1); Carbon Dioxide 23.8 mmol/L (21.0-32.0); Chloride 105 mmol/L (98-107); Estimated GFR (African America >60 (>=60); Estimated GFR (Non-African Ame >60 (>=60); Glucose 96 mg/dL (74-106); Sodium 140 mmol/L (136-145)
== END 2023-11-16 09:44 | disposition home or self-care (01) ==
PROVIDERS: Emergency Provider Emergency Medicine Emergency Medical Services; PCP Internal Medicine
DX: G57.93 Unspecified mononeuropathy of bilateral lower limbs (principal); F41.9 Anxiety disorder, unspecified; Z79.899 Other long term (current) drug therapy; Z79.82 Long term (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; G47.00 Insomnia, unspecified; K58.0 Irritable bowel syndrome with diarrhea; K21.9 Gastro-esophageal reflux disease without esophagitis; Z86.010 Personal history of colon polyps; I10 Essential (primary) hypertension; E78.00 Pure hypercholesterolemia, unspecified; Z86.16 Personal history of COVID-19; Z98.890 Other specified postprocedural states
CPT/HCPCS: 36415; 80048; 99283

== ENCOUNTER 2023-12-30 07:48 | Outpatient (OUT) | payer MEDICARE, SELFPAY ==
--- NOTE | 2023-12-30 08:00 | CA_ITS ---
Patient Name: JOSE PATEL MR#: [id number] : 1945 Exam Date: 12/30/2023 Ordering Doctor: DR ZEV PRIETO M.D. ECHOCARDIOGRAM REPORT PROCEDURE: CA ECHO DOPPLER COMPLETE INDICATIONS: Coronary artery disease, hypertension COMPARISON: None. DESCRIPTION: COMPLETE ECHOCARDIOGRAM Real-time transthoracic echocardiography with 2D, M-mode, spectral and color flow Doppler performed. QUALITY: Technical quality was good. 73 , 180#, BSA 2.06 m2, BP 120/66 LEFT VENTRICLE: Normal chamber size. Thickened septal wall. Normal systolic function. LV EF: Normal left ventricular ejection fraction, (>55%). DIASTOLIC: Normal diastolic function. ATRIAL SEPTUM: Visually appears intact. LEFT ATRIUM: Moderate dilatation. RIGHT ATRIUM: Moderate dilatation. RIGHT VENTRICLE: Normal chamber size. Normal right ventricular systolic function. TRICUSPID VALVE: Normal mobility and thickness. No stenosis with mild regurgitation. No evidence of pulmonary hypertension. RVSP 23 mmHg MITRAL VALVE: Normal mobility and thickness. No evidence of mitral valve stenosis. There is no mitral annular calcification. Trivial mitral regurgitation. AORTIC VALVE: Normal trileaflet appearance. Thickened aortic valve. Normal leaflet mobility. No evidence of aortic valve stenosis. Mild aortic regurgitation. AORTIC ROOT: Moderately dilated aortic root, measuring 4.2 cm. Ascending aorta is normal in size (2.6 cm). PULMONIC VALVE: Normal thickness and mobility. No stenosis. Trivial regurgitation. PERICARDIUM: No evidence of pericardial effusion. IVC: Collapses with inspirations. IVC is normal in size. PLEURA: CONCLUSION: 1. Normal ventricular size and systolic function. LVEF is 55-60%. 2. Mild aortic and tricuspid regurgitation. 3. Moderate biatrial dilatation. 4. Normal right sided pressures. 5. Moderately dilated aortic root, measuring 4.2 cm. Ascending aorta is normal in size (2.6 cm). Adult Echocardiography Procedure Report Left Ventricle LVEDD (3.7 - 5.6 cm): 4.67 cm LVESD (2.2 - 4.0 cm): 3.29 cm LVIVS thickness (0.6 - 1.2 cm): 1.25 cm LVPW thickness (0.5 - 1.0 cm): 0.88 cm e': 0.10 m/s E - e': 3.11 LVOT Max Gradient: 4.98 mm[Hg] LVOT Area (cm2): 1.12 m/s Peak Velocity (LVOT): 1.12 m/s Mean Velocity (LVOT): 0.68 m/s LVOT Diameter 2.34 cm Left Atrium LA Volume Index (2D A2C): 44.05 ml/m2 Left Atrium Systolic Dimension: 3.41 cm Mitral Valve MV E to A Ratio: 0.58 Mitral Valve A-Wave Peak Velocity: 0.52 m/s Mitral Valve E-Wave Peak Velocity: 0.30 m/s Right Ventricle Aorta AO Root Diam: 4.15 cm Ascending Ao Diam: 2.64 cm Aortic Valve AoV Area (Peak Efren): 4.87 cm2, 4.87 cm2 AoV Area (VTI): 4.46 cm2, 4.46 cm2 Peak Velocity(Antegrade Flow): 0.98 m/s Peak Gradient(Antegrade Flow): 3.85 mm[Hg] Mean Velocity(Antegrade Flow): 0.66 m/s Mean Gradient(Antegrade Flow): 2.05 mm[Hg] Velocity Time Integral: 22.36 cm Tricuspid Valve Peak Velocity (Regurgitant Flow): 2.09 m/s, 2.01 m/s, 2.24 m/s Pulmonic Valve Mean Gradient: 2.73 mm[Hg] Mean Velocity: 0.74 m/s Peak Velocity: 1.30 m/s, 1.18 m/s Peak Gradient: 5.55 mm[Hg], 6.74 mm[Hg] Right Atrium Right Atrium Systolic Pressure: 52.68 ml, 52.68 ml Dictated by: Derrick Marshall M.D. on 12/31/2023 at 09:09 Approved by: Derrick Marshall M.D. on 12/31/2023 at 09:15
== END 2023-12-30 07:49 | disposition home or self-care (01) ==
LOC: CARD 07:48
PROVIDERS: PCP Internal Medicine; Visit Provider Internal Medicine Interventional Cardiology
DX: I25.10 Atherosclerotic heart disease of native coronary artery without angina pectoris (principal); I25.83 Coronary atherosclerosis due to lipid rich plaque
CPT/HCPCS: 93306

== ENCOUNTER 2024-01-22 09:15 | Outpatient (OUT) | payer MEDICARE, SELFPAY ==
--- OUTSIDE RECORDS SUMMARY | 2024-01-22 09:40 | XMS_ITS | CCD ---
Author Organization [facility] Inform ion Partnership [facility] Care Team Providers Care Plate Sensitizer Name Role Phone MD Alek Oliva Attending [...] Consulting Unavailable PAY, DR MERCEDES Consulting Unavailable ANGELY REYNOLDS Consulting Unavailable ABBE, DR JOYA Primary Care Unavailable VALENTE, DR GUSMAN Attending Unavailable VALENTE, DR GUSMAN Admitting Unavailable VALENTE, DR GUSMAN Consulting Unavailable ANGELY KENNEDY Consulting Unavailable ITKIN, PASTORA Consulting Unavailable SONG, DR DAISHA Garcia Attending Unavailable SNOG, DR DAISHA Garcia Admitting Unavailable CHOCO, KATHI CORNELL Consulting Unavailable ABBE, DR JOYA Primary Care Unavailable Abbe, Cisco Unavailable Maryjane Christensen Unavailable Stalin Desai Unavailable MD Maryjane Christensen Attending Provider [phone] Cisco Nicholson Primary Care Dr. Cisco Ivey Primary Care DO Cisco Ivey Primary Care Provider [phone] DO Alejo Lynn Emergency Provider MD Bobo Villagomez Admit Provider MD Bobo Villagomez Attending Provider MD Berhane Trammell Other Provider DO Cisco Nicholson Primary Care Provider MD Sandoval Palacios Jr Emergency Provider MD Warren Quiroz Admit Provider MD Warren Quiroz Attending Provider Cisco Nicholson Primary Care Unavailable Asaad, Imad Admitting Unavailable Maryjane Christensen Attending Unavailable Cisco Nicholson Primary Care Unavailable Angely Lee Attending Unavailable Bobo Villagomez Admitting Unavailable Berhane Trammell Consulting Unavailable Berhane Trammell Consulting Unavailable Cisco Nicholson Primary Care Unavailable Warren Quiroz Admitting Unavailable Maren Petersen Attending Unavailable Cisco Nicholson Primary Care Unavailable Alek Oliva Admitting Unavailable Alek Oliva Attending Unavailable CISCO NICHOLSON Primary Care Physician Angely OCAMPO Attending Unavailable Angely OCAMPO Attending Unavailable CISCO NICHOLSON Referring Unavailable ZEV CHAVEZ Attending Unavailable MIGUEL ANGEL SLAUGHTER Attending Unavailable MIGUEL ANGEL SLAUGHTER Attending Unavailable Allergies Allergy Classification Reported Allergen(s) Allergy Type Date of Onset Reaction(s) Facility (4 sources) Ritonavir; Translations: [ritonavir] Drug Allergy 3 [facility] (4 sources) nirmatrelvir; Translations: [nirmatrelvir] Propensity to adverse reactions 3 [facility] (1 source) No Known Medication Allergies; Translations: [No Known Medication Allergies] Propensity to adverse reactions (disorder) [facility] Repository Medications Current Medications Medication Drug Class(es) Dates Sig (Normalized) Sig (Original) aspirin 81 mg delayed release oral tablet (20 sources) Platelet Aggregation Inhibitor, Nonsteroidal Anti-inflammatory Drug Start: 03-01-2023 take 81 mg by mouth once daily Aspirin Active 81 MG PO Daily March 01, 2023 12:00am Baby Aspirin Act karen atorvastatin 80 mg oral tablet (20 sources) HMG-CoA Reductase Inhibitor Start: 08-25-2022 take 80 mg by mouth once daily Atorvastatin Active 80 MG PO Daily August 25, 2022 1:00am Atorvastatin Sandor cium Active bacitracin 0.5 unt/mg ophtha lmic ointment (20 sources) Start: 10-27-2023 Bacitracin Act karen 1 [...] mg/ml / brinzolamide 10 mg/ml ophthalmic suspension (7 sources) Carbonic Anhydrase Inhibitor, alpha-Adrenergic Agonist Start: [...] 15 mg oral tablet (20 sources) Start: End: take 15 mg by mouth twice daily Buspirone Active 15 MG PO Twice daily 180 90 November 27, 2023 9:10am Start: 08-25-2022 End: 03-01-2023 take 15 mg [...] Start: 03-19-2019 take 1 capsule by mo [facility] every eight hours Cephalexin 500 MG 1 capsule Orally tid for 5 day(s) Mar, Active escitalopram 5 mg oral tablet (5 sources) Serotonin Reuptake Inhibitor Start: 11-10-2023 take 10 mg by mouth once daily Escitalopram Oxalate Active 5 MG PO Daily November 10, 2023 12:00am Take daily w/ 10mg dose Start: 10-14-2023 take 10 mg by mouth [...] 300 MG PO Four times daily 40 10 March 02, 2023 5:25pm Start: 08-25-2022 End: 03-02-2023 take 300 mg by mouth three times daily Gabapentin Discontinued 300 MG PO Three times daily August 25, 2022 1:00am March 02, 2023 5:25pm Gabapentin Activ e irbesartan (20 sources) Angiotensin 2 Receptor Zachary Irbesartan Active latanoprost 0.05 mg/ml ophthalmic solution (9 sources) Prostaglandin Analog Start: 07-28-2023 latanoprost Opth [...] Twice a day Aug, Active Multivitamin preparation (7 sources) Start: 07-28-2023 take 1 tablet by [...] mg / trimethoprim 160 mg oral tablet (2 sources) Dihydrofolate Reductase Inhibitor Antibacterial, Sulfonamide Antimicrobial Start: take 1 tablet by mouth twice daily Sulfamethoxazole-Tr imethoprim Active 1 TAB PO Twice daily 14 November 06, 2023 12:00am tetracycline hydrochloride 500 mg [...] 12:00am March 02, 2023 5:23pm Nirmatrelvir-Ritona vir (3 sources) Start: 06-20-2023 End: 06-22-2023 Nirmatrelvir-Ritona vir [...] atherosclerosis and other heart disease (2 sources) Coronary arteriosclerosis; Translations: [Atherosclerotic heart disease of [place] coronary artery without angina pectoris] 11-27-2023 Chronic Crushing injury or internal injury (1 source) Traumatic pneumothorax, initial encounter; Translations: [TRAUMATIC PNEUMOTHORAX INITIAL ENC] Onset: 07-01-2022 Episodic Disorders of lipid metabolism (20 sources) Pure hypercholesterolemia, unspecified; Translations: [Familial hypercholesterolemia] Onset: 08-02-2022 Chronic E Codes: Adverse effects of medical drugs (5 sources) Adverse reaction to drug; Translations: [Adverse [...] Translations: [Essential hypertension] Onset: 09-16-2022 Chronic Glaucoma (6 sources) Primary open-angle glaucoma, right eye, moderate stage; Translations: [Glaucoma] Onset: 03-25-2022 07-14-2023 Chronic Inflammatory conditions of male genital organs (1 source) Acute prostatitis; Translations: [Acute prostatitis] 11-06-2023 Episodic Intestinal infection (20 sources) Infection caused by [...] 03-28-2022 Episodic Other aftercare (1 source) Other long chain quiller tender (current) drug therapy; Translations: [OTH TRAVEL REGISTERED NURSE ICU CURRENT DRUG THERAPY] Onset: 09-16-2022 Episodic Other aftercare (1 source) terminal manager (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; Translations: [SHELTER CURRENT USE OF ASPIRIN] Onset: 09-16-2022 Episodic Other and ill-defined cerebrovascular disease (11 sources) Cerebral atherosclerosis; Translations: [Cerebral atherosclerosis] 10-27-2023 Chronic Other and ill-defined cerebrovascular disease (3 sources) Cerebral atherosclerosis Chronic Other and unspecified benign neoplasm (20 sources) Adenomatous polyp of colon ; Translations: [Benign neoplasm of descending colon] 07-14-2023 Episodic Other connective tissue disease (4 sources) Pain in lower limb; Translations: [Pain [...] with constipation] 07-14-2023 Chronic Other gastrointestinal disorders (3 sources) Irritable bowel syndrome with constipation; Translations: [Irritable bowel syndrome] Chronic Other hereditary and degenerative nervous system conditions (15 sources) Impaired cognition; Translations: [Mild cognitive impairment, so stated] Chronic Other hereditary and degenerative nervous system conditions (6 sources) Mild cognitive impairment, so stated; Translations: [Mild cognitive impairment with memory loss] Onset: 06-20-2023 Chronic Other infections; including parasitic (1 source) Personal history of other infectious and parasitic diseases Episodic Other lower respiratory disease (3 sources) Pleurodynia; Translations: [PLEURODYNIA] Onset: 07-01-2022 Episodic Other nervous system disorders (20 sources) Polyneuropathy; Translations: [Polyneuropathy, unspecified] 10-26-2023 Chronic Other nervous system disorders (18 sources) Polyneuropathy, unspecified; Translations: [Mononeuritis of unspecified site] Onset: 06-20-2023 Chronic Other nervous system disorders (6 sources) Neuropathy; Translations: [Polyneuropathy, unspecified] Onset: 06-20-2023 06-20-2023 Chronic Other nervous system disorders (9 sources) Metabolic encephalopathy; Translations: [Metabolic encephalopathy] Chronic Other nervous system disorders (1 source) Metabolic encephalopathy Chronic Other nervous system disorders (5 sources) Disorder of brain; Translations: [Encephalopathy, unspecified] 07-14-2023 Chronic Other nervous system disorders (4 sources) Other disturbances of skin sensation; Translations: [OTHER DISTURBANCES SKIN SENSATION] Onset: 07-28-2022 Episodic Other nervous system disorders (4 sources) Numbness of hand; Translations: [Anesthesia of [...] source) Disorientation, unspecified Episodic Residual codes; unclassified (3 sources) Altered mental status; Translations: [Altered mental [...] index 20-24 - normal 07-28-2023 Viral infection (11 sources) COVID-19; Translations: [Severe acute respiratory syndrome coronavirus 2 (SARS-CoV-2) detected] Onset: 06-20-2023 06-20-2023 Episodic Past or Other Problems Problem Classification Problem Date Documented Da te Episodic/Chronic E Codes: Cut/pierceb (1 source) Contact with other sharp object(s), not elsewhere classified, initial encounter; Translations: [CNTC OTH SHRP OB NOT ELSW CLASS INI] [...] Test Name Value Interpretation Reference Range Facility Office Visiton 12-14-2023 Follow-up visit [id number] Yonatan Patel 1945 M Date Provider Department Center 12/14/2023 [id number] CHAVEZ CARD [facility] Family History Problem Relation Age of Onset Heart attack Father Heart attack Brother Family Status - Relation Status Age at Father Brother Level of Service:83247 NM OFFICE/OUTPATIENT ESTABLISHED LOW MDM 20 MIN Normal [facility] Estimated glomerular filtrat ion rate (GFR) non- Americanon 11-16-2023 GFR/1.73 sq M.predicted among non-blacks MDRD (S/P/Bld) [Vol rate/Area] mL/min/{1.73_m2} >=60 [facility] Laboratory - Chemistry and C hemistry - challengeon 11-16-2023 Calcium [Mass/Vol] 9.6 mg/dL 8.5-10.1 [facility] Chloride [Moles/Vol] 105 mmol/L 98-[address] [facility] CO2 [Moles/Vol] 23.8 mmol/L 21.0-32.0 [facility] Creatinine [Mass/Vol] 1.02 mg/dL 0.70-1.[address] [facility] GFR/1.73 sq M.predicted MDRD (S/P/Bld) [Vol rate/Area] mL/min/{1.73_m2} >=60 [facility] Glucose [Mass/Vol] 96 mg/dL 74-106 [facility] Potassium [Moles/Vol] 4.0 mmol/L 3.5-5.[address] [facility] Sodium [Moles/Vol] 140 mmol/L 136-145 [facility] Urea nitrogen [Mass/Vol] 15.0 mg/dL 7.0-18.0 [facility] Urea nitrogen/Creatinine [Mass ratio] 14.7 mg/mg [facility] Serum or plasma anion gap de terminationon 11-16-2023 Anion gap [Moles/Vol] 15.2 mmol/L [facility] Operative Reporton Operative Report [id number]#1.00TIFF Normal [facility] RAD - MISCon 08-07-2023 RAD - MIS [id number]#1.00TIFF Normal [facility] Consent for Procedure/Surger yon 07-29-2023 Consent for Procedure/Surgery [id number]#1.00TIFF Normal [facility] Facesheeton 07-29-2023 Facesheet [id number]#1.00TIFF [facility] Ambulatory Visit Summaryon 1 09-28-2022 Ambulatory Visit Summary YONATAN PATEL :1945 Visit Date:07/28/2023 Ambulatory Visit Instructions Your Care Team Attending Physician - TOO TEJADA, Angely Garcia Primary Care Physician - CISCO NICHOLSON DO [...] for choosing us for your care. Myron [facility] Ambulatory Visit Summary YONATAN PATEL :1945 [...] for choosing us for your care. Normal [facility] Physician Referralon 023 Physician Referral [id number]#1.00TIFF Normal [facility] Basic Metabolic Panelon 11-0 Anion gap [Moles/Vol] 10.4 mmol/L Normal 6.0-15.0 [facility] Comment on above: Order Comment: SHABANA Child Performed By: #### H S TROP, CMP, CK, CBC #### [facility] [address] Calcium [Mass/Vol] 9.4 mg/dL Normal 8.6-10.3 [facility] Comment on above: Order Comment: FASTI NG Y Performed By: #### H S TROP, CMP, CK, CBC #### [facility] [address] [place] [address] [place] Chloride [Moles/Vol] 106 mmol/L Normal 98-[address] [facility] Comment on above: Order Comment: FASTI NG Y Performed By: #### H S TROP, CMP, CK, CBC #### [facility] [address] [place] [address] [place] CO2 [Moles/Vol] 28.8 mmol/L Normal 21.0-31.0 [facility] Comment on above: Order Comment: FASTI NG Y Performed By: #### H S TROP, CMP, CK, CBC #### [facility] [address] Creatinine [Mass/Vol] 0.78 mg/dL Normal 0.70-1.[address] [facility] Comment on above: Order Comment: FASTI NG Y Performed By: #### H S TROP, CMP, CK, CBC #### [address] Creatinine Clr Calc Pharmacy 81.46 [facility] Comment on above: Order Comment: FASTI NG Y Performed By: #### H S TROP, CMP, CK, CBC #### [place] [address] [place] GFR/1.73 sq M.predicted MDRD (S/P/Bld) [Vol rate/Area] mL/min/{1.73_m2} [facility] Comment on above: Order Comment: FASTI NG Y Performed By: #### H S TROP, CMP, CK, CBC #### [address] Glucose [Mass/Vol] 99 mg/dL Normal 70-100 [facility] Comment on above: Order Comment: FASTI NG Y Result Comment: [place] Glucose Reference Range is dependent on time and content of last meal. Glucose of more than 200 mg/dL in a nonstressed, ambulatory subject supports the diagnosis of Diabetes Mellitus. ADA recommended reference range Performed By: #### H S TROP, CMP, CK, CBC #### [address] Potassium [Moles/Vol] 4.2 mmol/L Normal 3.5-5.[address] [facility] Comment on above: Order Comment: FASTI NG Y Performed By: #### H S TROP, CMP, CK, CBC #### [address] Sodium [Moles/Vol] 141 mmol/L Normal 136-145 [facility] Comment on above: Order Comment: FASTI NG Y Performed By: #### H S TROP, CMP, CK, CBC #### [address] Urea nitrogen [Mass/Vol] 16 mg/dL Normal 7-25 [facility] Comment on above: Order Comment: FASTI NG Y Performed By: #### H S TROP, CMP, CK, CBC #### [address] Complete Blood Count Auto Di ffon 06-22-2023 Basophils (Bld) [#/Vol] 0.0 10*3/uL Normal 0.0-0.2 [facility] Comment on above: Result Comment: PERF ORMED BY: [place] [address] PATHOLOGIST HAZ TECH HARRY MARTI M.D. Performed By: #### L IPID, [id number], PT, CBC, HEPATIC, BMP, PTT, TSH3, MG #### [address] Basophils/100 WBC (Bld) 0.4 % Normal . [facility] Comment on above: Performed By: #### L IPID, [id number], PT, CBC, HEPATIC, BMP, PTT, TSH3, MG #### [address] Eosinophils (Bld) [#/Vol] 0.1 10*3/uL Normal 0.0-0.45 [facility] Comment on above: Performed By: #### L IPID, [id number], PT, CBC, HEPATIC, BMP, PTT, TSH3, MG #### [address] Eosinophils/100 WBC (Bld) 1.2 % Normal . [facility] Comment on above: Performed By: #### L IPID, [id number], PT, CBC, HEPATIC, BMP, PTT, TSH3, MG #### [address] Erythrocyte distribution width (RBC) [Ratio] 15.2 % High 12.0-14.8 [facility] Comment on above: Performed By: #### L IPID, [id number], PT, CBC, HEPATIC, BMP, PTT, TSH3, MG #### [address] Hematocrit (Bld) [Volume fraction] 40.0 % Normal 38.8-50.0 [facility] Comment on above: Performed By: #### L IPID, [id number], PT, CBC, HEPATIC, BMP, PTT, TSH3, MG #### [address] Hemoglobin (Bld) [Mass/Vol] 13.6 g/dL Normal 13.0-17.0 [facility] Comment on above: Performed By: #### L IPID, [id number], PT, CBC, HEPATIC, BMP, PTT, TSH3, MG #### [address] Lymphocytes (Bld) [#/Vol] 1.5 10*3/uL Normal 1.00-4.8 [facility] Comment on above: Performed By: #### L IPID, [id number], PT, CBC, HEPATIC, BMP, PTT, TSH3, MG #### [address] Lymphocytes/100 WBC (Bld) 35.5 % Normal . [facility] Comment on above: Performed By: #### L IPID, [id number], PT, CBC, HEPATIC, BMP, PTT, TSH3, MG #### [address] MCH (RBC) [Entitic mass] 29.4 pg Normal 27.5-35.2 [facility] Comment on above: Performed By: #### L IPID, [id number], PT, CBC, HEPATIC, BMP, PTT, TSH3, MG #### [address] MCV (RBC) [Entitic vol] 86.7 fL Normal 83.5-101 [facility] Comment on above: Performed By: #### L IPID, [id number], PT, CBC, HEPATIC, BMP, PTT, TSH3, MG #### [address] Mean Corpuscular HGB Conc 33.9 g/dL Normal 32.5-35.6 [facility] Comment on above: Performed By: #### L IPID, [id number], PT, CBC, HEPATIC, BMP, PTT, TSH3, MG #### [address] Monocytes (Bld) [#/Vol] 0.4 10*3/uL Normal 0.0-0.8 [facility] Comment on above: Performed By: #### L IPID, [id number], PT, CBC, HEPATIC, BMP, PTT, TSH3, MG #### [address] Monocytes/100 WBC (Bld) 10.4 % Normal . [facility] Comment on above: Performed By: #### L IPID, [id number], PT, CBC, HEPATIC, BMP, PTT, TSH3, MG #### [address] Neutrophils (Bld) [#/Vol] 2.2 10*3/uL Normal 1.8-7.7 [facility] Comment on above: Performed By: #### L IPID, [id number], PT, CBC, HEPATIC, BMP, PTT, TSH3, MG #### [facility] [address] Neutrophils/100 WBC (Bld) 52.5 % Normal . [facility] Comment on above: Performed By: #### L IPID, [id number], PT, CBC, HEPATIC, BMP, PTT, TSH3, MG #### [facility] [address] NRBC% 0.1 /100{WBC} Normal 0-0.5 [facility] Comment on above: Performed By: #### L IPID, [id number], PT, CBC, HEPATIC, BMP, PTT, TSH3, MG #### [facility] [address] Platelet mean volume (Bld) [Entitic vol] 7.3 fL Normal 6.6-10.1 [facility] Comment on above: Performed By: #### L IPID, [id number], PT, CBC, HEPATIC, BMP, PTT, TSH3, MG #### [facility] [address] Platelets (Bld) [#/Vol] 153 10*3/uL Normal 150-450 [facility] Comment on above: Performed By: #### L IPID, [id number], PT, CBC, HEPATIC, BMP, PTT, TSH3, MG #### [address] RBC (Bld) [#/Vol] 4.61 10*6/uL Normal 3.90-5.60 [facility] Comment on above: Performed By: #### L IPID, [id number], PT, CBC, HEPATIC, BMP, PTT, TSH3, MG #### [facility] [address] [place] [address] [place] WBC (Bld) [#/Vol] 4.1 10*3/uL Normal 4.1-10.5 [facility] Comment on above: Performed By: #### L IPID, [id number], PT, CBC, HEPATIC, BMP, PTT, TSH3, MG #### [facility] [address] [place] [address] Hepatic Panelon 06-22-2023 Albumin [Mass/Vol] 3.8 g/dL Normal 3.5-5.7 [facility] Comment on above: Order Comment: FASTI NG Y Performed By: #### H S TROP, CMP, CK, CBC #### [address] Albumin/Globulin [Mass ratio] 1.6 {ratio} Normal [facility] Comment on above: Order Comment: FASTI NG Y Performed By: #### H S TROP, CMP, CK, CBC #### [address] ALP [Catalytic activity/Vol] 57 U/L Normal 34-104 [facility] Comment on above: Order Comment: FASTI NG Y Performed By: #### H S TROP, CMP, CK, CBC #### [address] ALT [Catalytic activity/Vol] 26 U/L Normal 7-52 [facility] Comment on above: Order Comment: FASTI NG Y Performed By: #### H S TROP, CMP, CK, CBC #### [address] AST [Catalytic activity/Vol] 27 U/L Normal 13-39 [facility] Comment on above: Order Comment: FASTI NG Y Performed By: #### H S TROP, CMP, CK, CBC #### [address] Bilirubin [Mass/Vol] 1.0 mg/dL Normal 0.3-1.[address] [facility] Comment on above: Order Comment: FASTI NG Y Performed By: #### H S TROP, CMP, CK, CBC #### [address] Bilirubin,Indirect 0.8 mg/dL Normal [facility] Comment on above: Order Comment: FASTI NG Y Performed By: #### H S TROP, CMP, CK, CBC #### [address] [place] [address] [place] Bilirubin.indirect [Mass/Vol] 0.20 mg/dL High 0.03-0.18 [facility] Comment on above: Order Comment: FASTI NG Y Performed By: #### H S TROP, CMP, CK, CBC #### [address] Globulin (S) [Mass/Vol] 2.4 g/dL Normal [facility] Comment on above: Order Comment: FASTI NG Y Performed By: #### H S TROP, CMP, CK, CBC #### [address] Protein [Mass/Vol] 6.2 g/dL Low 6.4-8.9 [facility] Comment on above: Order Comment: FASTI NG Y Performed By: #### H S TROP, CMP, CK, CBC #### [address] Lipid Panelon 06-22-2023 Cholesterol [Mass/Vol] 108 mg/dL Low 140-200 [facility] Comment on above: Order Comment: FASTI NG Y Result Comment: Chol less than 200 mg/dl low risk Chol 201-239 mg/dl borderline risk Chol 240 mg/dl and greater high risk Performed By: #### H S TROP, CMP, CK, CBC #### [address] Cholesterol in HDL [Mass/Vol] 30 mg/dL Normal 23-92 [facility] Comment on above: Order Comment: FASTI NG Y Result Comment: HDL CHOL ATP-III CLASSIFICATION Cardiovascular Risk HDL > or equal to 60 mg/dL LOW HDL < 40 mg/dL HIGH Performed By: #### H S TROP, CMP, CK, CBC #### [address] Cholesterol.total/Chol esterol in HDL [Mass ratio] 3.6 {ratio} Normal <5.0 [facility] Comment on above: Order Comment: FASTI NG Y Performed By: #### H S TROP, CMP, CK, CBC #### [address] [place] [address] [place] LDL Cholesterol,Calculated 54 mg/dL Normal 0-100 [facility] Comment on above: Order Comment: SHABANA Child Result Comment: LDL ATP III CLASSIFICATION LDL less than 100 mg/dL Optimal LDL 100-129 mg/dL Near or above optimal LDL 130-159 mg/dL Borderline high LDL 160-189 mg/dL High LDL greater than 189 mg/dL Very high Performed By: #### H S TROP, CMP, CK, CBC #### [address] Triglyceride w/Reflex 120 mg/dL Normal 0-[address] [facility] Comment on above: Order Comment: SHABANA Child Result Comment: TRIG ATP III CLASSIFICATION TRIG less than 150 mg/dL Normal TRIG 150-199 mg/dL Borderline high TRIG 200-500 mg/dL High TRIG greater than 500 mg/dL Very high Standard traceable to the Center for Disease Conrtrol and Prevention (CDC) test method. Performed By: #### H S TROP, CMP, CK, CBC #### [address] VLDL CHOLESTEROL 24 mg/dL Normal [facility] Comment on above: Order Comment: SHABANA Child Performed By: #### H S TROP, CMP, CK, CBC #### [facility] [address] [place] [address] MR angio head wo conon 06-22 MR angio head wo con [facility] Main [place] [address] [place] [address] MRI Report Signed Patient: Yonatan Patel MR#: [id number] 6 : 1945 Acct:[id number] Age/Sex: 78 / M ADM Date: 06/20/23 Loc: Room: [address] [place] [address] Type: ADM IN Attending Dr: Maren Petersen MD Copies to: MD Berhane Rocha MD Ordering Provider: Berhane Trammell MD Date of Service: 06/22/23 MR/MR angio head wo con: stroke MRI/MRA BRAIN WITHOUT CONTRAST COMPARISON: CT 06/20/2023 CLINICAL DATA: Confusion Sagittal T2, axial FLAIR and diffusion-weighted imaging was performed. 3-D gxya-yw-nqiwde imaging of the [place] of [place] was also performed. There is [...] Selena Reid M.D.06/22/2023 4:25 PM Dictation Location: [place] [address] Transcribed By: [facility] 06/22/23 1625 Dictated By: Selena Reid MD 06/22/23 1617 Signed By: 06/22/23 1625 Normal [facility] Magnesiumon 06-22-2023 Magnesium [Mass/Vol] 2.1 mg/dL Normal 1.9-2.[address] [facility] Comment on above: Order Comment: FASTI NG Y Performed By: #### H S TROP, CMP, CK, CBC #### [address] Partial Thromboplastin Timeo n 06-22-2023 aPTT Coag (Bld) [Time] 27.4 s Normal 25.1-36.5 [facility] Comment on above: Result Comment: A he matocrit value greater than 55% may lead to inaccurate results in coagulation testing. Patients having hematocrit values >55% require a special collection tube for coagulation studies. Please contact the laboratory at [phone] for redraw instructions. PERFORMED BY: [address] [place] [address] PATHOLOGIST HAZ TECH HARRY MARTI M.D. Performed By: #### H S TROP, CMP, CK, CBC #### [place] [id number] [facility] Prothrombin Time INRon 06-22 INR Coag (PPP) [Relative time] 1.0 {INR} Normal [facility] Comment on above: Result Comment: [...] - 4.5 Performed By: #### L IPID, [id number], PT, CBC, HEPATIC, BMP, PTT, TSH3, MG #### [address] PT Coag (PPP) [Time] 11.6 s Normal 9.0-12.[address] [facility] Comment on above: Result Comment: A he matocrit value greater than 55% may lead to inaccurate results in coagulation testing. Patients having hematocrit values >55% require a special collection tube for coagulation studies. Please contact the laboratory at [phone] for redraw instructions. Performed By: #### L IPID, [id number], PT, CBC, HEPATIC, BMP, PTT, TSH3, MG #### [address] Thyroid Stimulating Hormoneo n 06-22-2023 TSH Qn 2.38 m[IU]/L Normal 0.45-5.33 [facility] Comment on above: Order Comment: FASTI OSITO Y Result Comment: PERF ORMED BY: [place] [address] PATHOLOGIST HAZ TECH HARRY MARTI M.D. Performed By: #### H S TROP, CMP, CK, CBC #### [place] [id number] [facility] Vit. B12/Folate Profileon Cobalamin (Vitamin B12) [Mass/Vol] 425 pg/mL Normal 180-914 [facility] Comment on above: Order Comment: SHABANA MCNEILL Y Performed By: #### H S TROP, CMP, CK, CBC #### [address] Folate 29.0 ng/mL Normal >5.9 [facility] Comment on above: Order Comment: FASTBryan NG Y Result Comment: Aye te reference range: >5.9 ng/ml The WHO technical consultation on folate and vitamin b12 deficiencies has determined that folate concentrations less than 4 ng/ml are considered deficient. Performed By: #### H S TROP, CMP, CK, CBC #### [address] Vitamin B1 (Thiamine) Bloodo n 06-22-2023 Vitamin B1 (Thiamine) Blood 143.9 Normal 66.5-200.0 [facility] Comment on above: Result Comment: This test was developed and its performance characteristics determined by [facility]. It has not been cleared or approved by the Food and Drug Administration. Performed at: [address] [id number] [employer] Manager: Juan Howard MD, Phone: [phone] PERFORMED BY: [place] [address] PATHOLOGIST HAZ TECH HARRY MARTI M.D. Performed By: #### V ITB1 #### [facility] , Ammoniaon 06-21-2023 Ammonia (P) [Moles/Vol] 19 umol/L Normal 11-35 [facility] Comment on above: Result Comment: PERF ORMED BY: [place] [address] PATHOLOGIST HAZ TECH HARRY MARTI M.D. Performed By: #### H S TROP, CMP, CK, CBC #### [place] [id number] [facility] Basic Metabolic Panelon Anion gap [Moles/Vol] 11.3 mmol/L Normal 6.0-15.0 [facility] Comment on above: Performed By: #### H S TROP, CMP, CK, CBC #### [address] Calcium [Mass/Vol] 9.4 mg/dL Normal 8.6-10.3 [facility] Comment on above: Performed By: #### H S TROP, CMP, CK, CBC #### [address] Chloride [Moles/Vol] 107 mmol/L Normal 98-[address] [facility] Comment on above: Performed By: #### H S TROP, CMP, CK, CBC #### [address] CO2 [Moles/Vol] 25.7 mmol/L Normal 21.0-31.0 [facility] Comment on above: Performed By: #### H S TROP, CMP, CK, CBC #### [address] Creatinine [Mass/Vol] 0.83 mg/dL Normal 0.70-1.[address] [facility] Comment on above: Performed By: #### H S TROP, CMP, CK, CBC #### [address] Creatinine Clr Calc Pharmacy 80.52 [facility] Comment on above: Result Comment: PERF ORMED BY: [place] [address] PATHOLOGIST HAZ TECH HARRY MARTI M.D. Performed By: #### H S TROP, CMP, CK, CBC #### [address] GFR/1.73 sq M.predicted MDRD (S/P/Bld) [Vol rate/Area] mL/min/{1.73_m2} [facility] Comment on above: Performed By: #### H S TROP, CMP, CK, CBC #### [place] [address] [place] Glucose [Mass/Vol] 174 mg/dL High 70-100 [facility] Comment on above: Result Comment: [facility] Glucose Reference Range is dependent on time and content of last meal. Glucose of more than 200 mg/dL in a nonstressed, ambulatory subject supports the diagnosis of Diabetes Mellitus. ADA recommended reference range Performed By: #### H S TROP, CMP, CK, CBC #### [address] Potassium [Moles/Vol] 4.0 mmol/L Normal 3.5-5.[address] [facility] Comment on above: Performed By: #### H S TROP, CMP, CK, CBC #### [address] Sodium [Moles/Vol] 140 mmol/L Normal 136-145 [facility] Comment on above: Performed By: #### H S TROP, CMP, CK, CBC #### [address] Urea nitrogen [Mass/Vol] 11 mg/dL Normal 7-25 [facility] Comment on above: Performed By: #### H S TROP, CMP, CK, CBC #### [address] Hemogram CBC Without Diffon 06-21-2023 Erythrocyte distribution width (RBC) [Ratio] 14.7 % Normal 12.0-14.8 [facility] Comment on above: Performed By: #### H S TROP, CMP, CK, CBC #### [address] Hematocrit (Bld) [Volume fraction] 40.7 % Normal 38.8-50.0 [facility] Comment on above: Performed By: #### H S TROP, CMP, CK, CBC #### [address] Hemoglobin (Bld) [Mass/Vol] 13.9 g/dL Normal 13.0-17.0 [facility] Comment on above: Performed By: #### H S TROP, CMP, CK, CBC #### [place] [address] MCH (RBC) [Entitic mass] 29.7 pg Normal 27.5-35.2 [facility] Comment on above: Performed By: #### H S TROP, CMP, CK, CBC #### [facility] [address] MCV (RBC) [Entitic vol] 86.8 fL Normal 83.5-101 [facility] Comment on above: Performed By: #### H S TROP, CMP, CK, CBC #### [facility] [address] Mean Corpuscular HGB Conc 34.2 g/dL Normal 32.5-35.6 [facility] Comment on above: Performed By: #### H S TROP, CMP, CK, CBC #### [address] Platelet mean volume (Bld) [Entitic vol] 7.3 fL Normal 6.6-10.1 [facility] Comment on above: Result Comment: PERF ORMED BY: [place] [address] PATHOLOGIST HAZ TECH HARRY MARTI M.D. Performed By: #### H S TROP, CMP, CK, CBC #### [address] Platelets (Bld) [#/Vol] 144 10*3/uL Low 150-450 [facility] Comment on above: Performed By: #### H S TROP, CMP, CK, CBC #### [address] RBC (Bld) [#/Vol] 4.69 10*6/uL Normal 3.90-5.60 [facility] Comment on above: Performed By: #### H S TROP, CMP, CK, CBC #### [address] WBC (Bld) [#/Vol] 3.9 10*3/uL Low 4.1-10.5 [facility] Comment on above: Performed By: #### H S TROP, CMP, CK, CBC #### [facility] [address] COVID CepheidOrdered By: Huy Palacios on 06-20-2023 SARS-CoV-2 (COVID-19) Ab IA Ql Positive Negative [facility] Comment on above: This is a duplicate Cepheid Xpert Xpress CoV-2/Flu/RSV Plus RNA by RT-PCR result to be used for statistical tracking purpose only. SARS-CoV-2 (COVID-19) RNA MARIANNE+probe Ql (Unsp spec) [facility] COVID-19 / Flu A/B / [...] or Cepheid Disclaimer revoked sooner. PERFORMED BY: [place] [address] PATHOLOGIST HAZ TECH HARRY MARTI M.D. [facility] Comment on above: Performed By: #### H S TROP, CMP, CK, CBC #### [address] head/brain wo conon 06-20 CT head/brain wo con [facility] Main [place] [address] [place] [address] CT Scan Report Signed Patient: Yonatan Patel MR#: [id number] 6 : 1945 Acct:[id number] Age/Sex: 78 / M ADM Date: 06/20/23 Loc: Room: [address] [place] [id number] Type: ADM INOo Attending Dr: Jassi Arias [...] Daisha Fernandez M.D.06/20/2023 8:34 AM Dictation Location: [place] [address] Transcribed By: MICHEL 06/20/23833 Dictated By: Daisha Fernandez II, MD 06/20/2330 Signed By: 06/20/23833 Normal [facility] Cepheid COVID PCR Positiveon 06-20-2023 SARS-CoV-2 (COVID-19) RNA MARIANNE+probe Ql (Unsp spec) Positive Critically abnormal Negative [facility] Comment on above: Result Comment: This is a duplicate Cepheid Xpert Xpress CoV-2/Flu/RSV Plus RNA by RT-PCR result to be used for statistical tracking purpose only. PERFORMED BY: [place] [address] PATHOLOGIST HAZ TECH HARRY MARTI M.D. Performed By: #### H S TROP, CMP, CK, CBC #### [facility] [address] [place] [address] Complete Blood Count Auto Di ffon 06-20-2023 Basophils (Bld) [#/Vol] 0.0 10*3/uL Normal 0.0-0.2 [facility] Comment on above: Result Comment: PERF ORMED BY: [place] [address] PATHOLOGIST HAZ TECH HARRY MARTI M.D. Performed By: #### H S TROP, CMP, CK, CBC #### [address] [place] [address] [place] Basophils/100 WBC (Bld) 0.4 % Normal . [facility] Comment on above: Performed By: #### H S TROP, CMP, CK, CBC #### [address] Eosinophils (Bld) [#/Vol] 0.0 10*3/uL Normal 0.0-0.45 [facility] Comment on above: Performed By: #### H S TROP, CMP, CK, CBC #### [address] Eosinophils/100 WBC (Bld) 0.6 % Normal . [facility] Comment on above: Performed By: #### H S TROP, CMP, CK, CBC #### [address] Erythrocyte distribution width (RBC) [Ratio] 14.9 % High 12.0-14.8 [facility] Comment on above: Performed By: #### H S TROP, CMP, CK, CBC #### [address] Hematocrit (Bld) [Volume fraction] 43.3 % Normal 38.8-50.0 [facility] Comment on above: Performed By: #### H S TROP, CMP, CK, CBC #### [address] Hemoglobin (Bld) [Mass/Vol] 14.8 g/dL Normal 13.0-17.0 [facility] Comment on above: Performed By: #### H S TROP, CMP, CK, CBC #### [place] [address] [place] Lymphocytes (Bld) [#/Vol] 1.0 10*3/uL Normal 1.00-4.8 [facility] Comment on above: Performed By: #### H S TROP, CMP, CK, CBC #### [place] [address] [place] Lymphocytes/100 WBC (Bld) 20.8 % Normal . [facility] Comment on above: Performed By: #### H S TROP, CMP, CK, CBC #### [address] MCH (RBC) [Entitic mass] 30.0 pg Normal 27.5-35.2 [facility] Comment on above: Performed By: #### H S TROP, CMP, CK, CBC #### [address] MCV (RBC) [Entitic vol] 87.6 fL Normal 83.5-101 [facility] Comment on above: Performed By: #### H S TROP, CMP, CK, CBC #### [address] Mean Corpuscular HGB Conc 34.2 g/dL Normal 32.5-35.6 [facility] Comment on above: Performed By: #### H S TROP, CMP, CK, CBC #### [address] Monocytes (Bld) [#/Vol] 0.8 10*3/uL Normal 0.0-0.8 [facility] Comment on above: Performed By: #### H S TROP, CMP, CK, CBC #### [address] Monocytes/100 WBC (Bld) 24.01 % High 0.00-20.00 [facility] Comment on above: Result Comment: For adults in ED, MDW > 20.0 may be associated with a higher risk of sepsis during the first 12 hrs of hospital admission Performed By: #### H S TROP, CMP, CK, CBC #### [address] Monocytes/100 WBC (Bld) 15.6 % Normal . [facility] Comment on above: Performed By: #### H S TROP, CMP, CK, CBC #### [address] Neutrophils (Bld) [#/Vol] 3.0 10*3/uL Normal 1.8-7.7 [facility] Comment on above: Performed By: #### H S TROP, CMP, CK, CBC #### [address] Neutrophils/100 WBC (Bld) 62.6 % Normal . [facility] Comment on above: Performed By: #### H S TROP, CMP, CK, CBC #### [address] NRBC% 0.4 /100{WBC} Normal 0-0.5 [facility] Comment on above: Performed By: #### H S TROP, CMP, CK, CBC #### [address] Platelet mean volume (Bld) [Entitic vol] 7.9 fL Normal 6.6-10.1 [facility] Comment on above: Performed By: #### H S TROP, CMP, CK, CBC #### [address] Platelets (Bld) [#/Vol] 154 10*3/uL Normal 150-450 [facility] Comment on above: Performed By: #### H S TROP, CMP, CK, CBC #### [address] RBC (Bld) [#/Vol] 4.94 10*6/uL Normal 3.90-5.60 [facility] Comment on above: Performed By: #### H S TROP, CMP, CK, CBC #### [address] WBC (Bld) [#/Vol] 4.8 10*3/uL Normal 4.1-10.5 [facility] Comment on above: Performed By: #### H S TROP, CMP, CK, CBC #### [address] Comprehensive Metabolic Pane alex 06-20-2023 Albumin [Mass/Vol] 4.2 g/dL Normal 3.5-5.7 [facility] Comment on above: Performed By: #### H S TROP, CMP, CK, CBC #### [facility] [address] [place] [address] [place] Albumin/Globulin [Mass ratio] 1.6 {ratio} Normal [facility] Comment on above: Performed By: #### H S TROP, CMP, CK, CBC #### [facility] [address] ALP [Catalytic activity/Vol] 53 U/L Normal 34-104 [facility] Comment on above: Performed By: #### H S TROP, CMP, CK, CBC #### [facility] [address] ALT [Catalytic activity/Vol] 31 U/L Normal 7-52 [facility] Comment on above: Performed By: #### H S TROP, CMP, CK, CBC #### [facility] [address] [place] [address] Anion gap [Moles/Vol] 9.2 mmol/L Normal 6.0-15.[address] [facility] Comment on above: Performed By: #### H S TROP, CMP, CK, CBC #### [address] AST [Catalytic activity/Vol] 33 U/L Normal 13-39 [facility] Comment on above: Performed By: #### H S TROP, CMP, CK, CBC #### [place] [address] [place] Bilirubin [Mass/Vol] 1.0 mg/dL Normal 0.3-1.[address] [facility] Comment on above: Performed By: #### H S TROP, CMP, CK, CBC #### [facility] [address] [place] [address] [place] Calcium [Mass/Vol] 9.8 mg/dL Normal 8.6-10.3 [facility] Comment on above: Performed By: #### H S TROP, CMP, CK, CBC #### [facility] [address] [place] [address] [place] Chloride [Moles/Vol] 107 mmol/L Normal 98-[address] [facility] Comment on above: Performed By: #### H S TROP, CMP, CK, CBC #### [facility] [address] CO2 [Moles/Vol] 25.6 mmol/L Normal 21.0-31.0 [facility] Comment on above: Performed By: #### H S TROP, CMP, CK, CBC #### [facility] [address] Creatinine [Mass/Vol] 0.95 mg/dL Normal 0.70-1.[address] [facility] Comment on above: Performed By: #### H S TROP, CMP, CK, CBC #### [facility] [address] Creatinine Clr Calc Pharmacy 70.44 [facility] Comment on above: Result Comment: PERF ORMED BY: [place] [address] PATHOLOGIST HAZ TECH HARRY MARTI M.D. Performed By: #### H S TROP, CMP, CK, CBC #### [facility] [address] GFR/1.73 sq M.predicted MDRD (S/P/Bld) [Vol rate/Area] mL/min/{1.73_m2} [facility] Comment on above: Performed By: #### H S TROP, CMP, CK, CBC #### [facility] [address] Globulin (S) [Mass/Vol] 2.7 g/dL [facility] Comment on above: Performed By: #### H S TROP, CMP, CK, CBC #### [facility] [address] Glucose [Mass/Vol] 94 mg/dL Normal 70-100 [facility] Comment on above: Result Comment: [place] Glucose Reference Range is dependent on time and content of last meal. Glucose of more than 200 mg/dL in a nonstressed, ambulatory subject supports the diagnosis of Diabetes Mellitus. ADA recommended reference range Performed By: #### H S TROP, CMP, CK, CBC #### [facility] [address] Potassium [Moles/Vol] 3.8 mmol/L Normal 3.5-5.[address] [facility] Comment on above: Performed By: #### H S TROP, CMP, CK, CBC #### [address] Protein [Mass/Vol] 6.9 g/dL Normal 6.4-8.9 [facility] Comment on above: Performed By: #### H S TROP, CMP, CK, CBC #### [address] Sodium [Moles/Vol] 138 mmol/L Normal 136-145 [facility] Comment on above: Performed By: #### H S TROP, CMP, CK, CBC #### [address] Urea nitrogen [Mass/Vol] 18 mg/dL Normal 7-25 [facility] Comment on above: Performed By: #### H S TROP, CMP, CK, CBC #### [address] Creatine Kinaseon 06-20-2023 CK [Catalytic activity/Vol] 113 U/L Normal 30-223 [facility] Comment on above: Performed By: #### H S TROP, CMP, CK, CBC #### [address] Troponin I High Sensitivityo n 06-20-2023 Troponin I High Sensitivity 7.8 pg/mL Normal 0.0-20.0 [facility] Comment on above: Result Comment: PERF ORMED BY: [address] [place] [address] PATHOLOGIST HAZ TECH HARRY MARTI M.D. Performed By: #### H S TROP, CMP, CK, CBC #### [address] Urinalysison 06-20-2023 Appearance (U) Clear Normal Clear [facility] Comment on above: Order Comment: Name Collection Type:: Clean-Voided Midstream Performed By: #### H S TROP, CMP, CK, CBC #### [facility] [address] [place] [address] [place] Bilirubin,Urine Negative Normal Negative [facility] Comment on above: Order Comment: Name Collection Type:: Clean-Voided Midstream Performed By: #### H S TROP, CMP, CK, CBC #### [facility] [address] [place] [address] [place] Color (U) Yellow Normal Yellow [facility] Comment on above: Order Comment: Name Collection Type:: Clean-Voided Midstream Performed By: #### H S TROP, CMP, CK, CBC #### [facility] [address] [place] [address] Glucose Ql (U) Normal Normal Normal [facility] Comment on above: Order Comment: Name Collection Type:: Clean-Voided Midstream Performed By: #### H S TROP, CMP, CK, CBC #### [facility] [address] [place] [address] [place] Ketones Ql (U) Negative Normal Negative [facility] Comment on above: Order Comment: Name Collection Type:: Clean-Voided Midstream Performed By: #### H S TROP, CMP, CK, CBC #### [address] Leukocyte esterase Test strip Ql (U) Negative Normal Negative [facility] Comment on above: Order Comment: Name Collection Type:: Clean-Voided Midstream Performed By: #### H S TROP, CMP, CK, CBC #### [facility] [address] [place] [address] [place] Nitrite,Urine Negative Normal Negative [facility] Comment on above: Order Comment: Name Collection Type:: Clean-Voided Midstream Performed By: #### H S TROP, CMP, CK, CBC #### [facility] [address] [place] [address] [place] Occult Blood,Urine Negative Normal Negative [facility] Comment on above: Order Comment: Name Collection Type:: Clean-Voided Midstream Result Comment: PERF ORMED BY: [place] [address] PATHOLOGIST HAZ TECH HARRY MARTI M.D. Performed By: #### H S TROP, CMP, CK, CBC #### [address] pH (U) 5.5 [pH] Normal 5.0-9.0 [facility] Comment on above: Order Comment: Name Collection Type:: Clean-Voided Midstream Performed By: #### H S TROP, CMP, CK, CBC #### [address] Protein,Urine Negative Normal Negative [facility] Comment on above: Order Comment: Name Collection Type:: Clean-Voided Midstream Performed By: #### H S TROP, CMP, CK, CBC #### [address] Specificy [place],Urine 1.005 Normal 1.001-1.03 0 [facility] Comment on above: Order Comment: Name Collection Type:: Clean-Voided Midstream Performed By: #### H S TROP, CMP, CK, CBC #### [address] Urobilinogen,Urine Normal Normal Normal [facility] Comment on above: Order Comment: Name Collection Type:: Clean-Voided Midstream Performed By: #### H S TROP, CMP, CK, CBC #### [address] XR chest 2V*on 06-20-2023 XR chest 2V* [facility] Main [place] [address] [place] [address] XRay Report Signed Patient: Yonatan Patel MR#: [id number] 6 : 1945 Acct:[id number] Age/Sex: 78 / M ADM Date: 06/20/23 Loc: Room: [address] [place] [id number] Type: ADM INOo Attending Dr: Jassi Arias [...] Daisha Fernandez M.D.06/20/2023 11:21 AM Dictation Location: [place] [address] Transcribed By: [facility] 06/20/23 1121 Dictated By: Daisha Fernandez II, MD 06/20/23 1120 Signed By: 06/20/23 1121 Normal [facility] Alanine aminotransferase [En zymatic activity/volume] in Serum or PlasmaOrdered By: PROVIDER TEMP on 06-19-2023 ALT [Catalytic activity/Vol] 31 U/L 7-52 [facility] Albumin [Mass/volume] in Ser um or Plasma by Bromocresol green (BCG) dye binding methoOrdered By: PROVIDER TEMP on 06-19-2023 Albumin BCG dye [Mass/Vol] 4.2 g/dL 3.5-5.7 [facility] Alkaline phosphatase [Enzyma tic activity/volume] in Serum or PlasmaOrdered By: PROVIDER TEMP on 06-19-2023 ALP [Catalytic activity/Vol] 53 U/L 34-104 [facility] Aspartate aminotransferase [ Enzymatic activity/volume] in Serum or PlasmaOrdered By: PROVIDER TEMP on 06-19-2023 AST [Catalytic activity/Vol] 33 U/L 13-39 [facility] Basophils Auto (Bld) [#/Vol] Ordered By: PROVIDER TEMP on 06-19-2023 Basophils (Bld) [#/Vol] 0.0 10*3/uL 0.0-0.2 [facility] Basophils/100 WBC Auto (Bld) Ordered By: PROVIDER TEMP on 06-19-2023 Basophils/100 WBC (Bld) 0.4 % . [facility] Bilirubin Auto test strip Ql (U)Ordered By: PROVIDER TEMP on 06-19-2023 Bilirubin Ql (U) Negative Negative [facility] Bilirubin.total [Mass/volume ] in Serum or PlasmaOrdered By: PROVIDER TEMP on 06-19-2023 Bilirubin [Mass/Vol] 1.0 mg/dL 0.3-1.[address] [facility] Calcium [Mass/volume] in Ser um or PlasmaOrdered By: PROVIDER TEMP on 06-19-2023 Calcium [Mass/Vol] 9.8 mg/dL 8.6-10.3 [facility] Carbon dioxide, total [Moles /volume] in Serum or PlasmaOrdered By: PROVIDER TEMP on 06-19-2023 CO2 [Moles/Vol] 25.6 mmol/L 21.0-31.0 [facility] Chloride [Moles/volume] in S raymundo or PlasmaOrdered By: PROVIDER TEMP on 06-19-2023 Chloride [Moles/Vol] 107 mmol/L 98-[address] [facility] Creatine kinase [Enzymatic a ctivity/volume] in Serum or PlasmaOrdered By: PROVIDER TEMP on 06-19-2023 CK [Catalytic activity/Vol] 113 U/L 30-223 [facility] Creatinine [Mass/volume] in Serum or PlasmaOrdered By: PROVIDER TEMP on 06-19-2023 Creatinine [Mass/Vol] 0.95 mg/dL 0.70-1.[address] [facility] Eosinophils Auto (Bld) [#/Vo l]Ordered By: PROVIDER TEMP on 06-19-2023 Eosinophils (Bld) [#/Vol] 0.0 10*3/uL 0.0-0.45 [facility] Eosinophils/100 WBC Auto (Bl d)Ordered By: PROVIDER TEMP on 06-19-2023 Eosinophils/100 WBC (Bld) 0.6 % . [facility] Erythrocyte distribution wid th Auto (RBC) [Ratio]Ordered By: PROVIDER TEMP on 06-19-2023 Erythrocyte distribution width (RBC) [Ratio] 14.9 % 12.0-14.8 [facility] Globulin Calc (S) [Mass/Vol] Ordered By: PROVIDER TEMP on 06-19-2023 Globulin (S) [Mass/Vol] 2.7 g/dL [facility] Glucose [Mass/volume] in Ser um or PlasmaOrdered By: PROVIDER TEMP on 06-19-2023 Glucose [Mass/Vol] 94 mg/dL 70-100 [facility] Comment on above: ADA recommended refe rence rangeRandom Glucose Reference Range is dependent on time and content of last meal. Glucose of more than 200 mg/dL in a nonstressed, ambulatory subject supports the diagnosis of Diabetes Mellitus. Hematocrit Auto (Bld) [Volum e fraction]Ordered By: PROVIDER TEMP on 06-19-2023 Hematocrit (Bld) [Volume fraction] 43.3 % 38.8-50.0 [facility] Hemoglobin [Mass/volume] in BloodOrdered By: PROVIDER TEMP on 06-19-2023 Hemoglobin (Bld) [Mass/Vol] 14.8 g/dL 13.0-17.0 [facility] Ketones Auto test strip (U) [Mass/Vol]Ordered By: PROVIDER TEMP on 06-19-2023 Ketones (U) [Mass/Vol] Negative Negative [facility] Leukocytes [#/volume] correc airam for nucleated erythrocytes in Blood by Automated counOrdered By: PROVIDER TEMP on 06-19-2023 WBC corrected for nucl RBC Auto (Bld) [#/Vol] 4.8 10*3/uL 4.1-10.5 [facility] Lymphocytes Auto (Bld) [#/Vo l]Ordered By: PROVIDER TEMP on 06-19-2023 Lymphocytes (Bld) [#/Vol] 1.0 10*3/uL 1.00-4.8 [facility] Lymphocytes/100 WBC Auto (Bl d)Ordered By: PROVIDER TEMP on 06-19-2023 Lymphocytes/100 WBC (Bld) 20.8 % . [facility] MCH Auto (RBC) [Entitic mass ]Ordered By: PROVIDER TEMP on 06-19-2023 MCH (RBC) [Entitic mass] 30.0 pg 27.5-35.2 [facility] MCHC Auto (RBC) [Mass/Vol]Or dered By: PROVIDER TEMP on 06-19-2023 MCHC (RBC) [Mass/Vol] 34.2 g/dL 32.5-35.[address] [facility] MCV Auto (RBC) [Entitic vol] Ordered By: PROVIDER TEMP on 06-19-2023 MCV (RBC) [Entitic vol] 87.6 fL 83.5-101 [facility] Monocyte distribution width [Entitic volume] in Blood by AutomatedOrdered By: PROVIDER TEMP on 06-19-2023 Monocyte distribution width Auto (Bld) [Entitic vol] 24.01 % 0.00-20.00 [facility] Comment on above: For adults in ED, MD W > 20.0 may be associated with a higher risk of sepsis during the first 12 hrs of hospital admission Monocytes Auto (Bld) [#/Vol] Ordered By: PROVIDER TEMP on 06-19-2023 Monocytes (Bld) [#/Vol] 0.8 10*3/uL 0.0-0.8 [facility] Monocytes/100 WBC Auto (Bld) Ordered By: PROVIDER TEMP on 06-19-2023 Monocytes/100 WBC (Bld) 15.6 % . [facility] Neutrophils Auto (Bld) [#/Vo l]Ordered By: PROVIDER TEMP on 06-19-2023 Neutrophils (Bld) [#/Vol] 3.0 10*3/uL 1.8-7.7 [facility] Neutrophils/100 WBC Auto (Bl d)Ordered By: PROVIDER TEMP on 06-19-2023 Neutrophils/100 WBC (Bld) 62.6 % . [facility] No Panel InformationOrdered By: PROVIDER TEMP on 06-19-2023 Estimated GFR (CKD-EPI) > 60.0 mL/Min [facility] Creatinine Clearance (Chem 70.44 [facility] Nucleated erythrocytes [Pres ence] in Blood by Automated countOrdered By: PROVIDER TEMP on 06-19-2023 Nucleated RBC Auto Ql (Bld) 0.4 /100{WBC} 0-0.5 [facility] Platelet mean volume Auto (B ld) [Entitic vol]Ordered By: PROVIDER TEMP on 06-19-2023 Platelet mean volume (Bld) [Entitic vol] 7.9 fL 6.6-10.1 [facility] Platelets Auto (Bld) [#/Vol] Ordered By: PROVIDER TEMP on 06-19-2023 Platelets (Bld) [#/Vol] 154 10*3/uL 150-450 [facility] Potassium [Moles/volume] in Serum or PlasmaOrdered By: PROVIDER TEMP on 06-19-2023 Potassium [Moles/Vol] 3.8 mmol/L 3.5-5.[address] [facility] Protein Auto test strip (U) [Mass/Vol]Ordered By: PROVIDER TEMP on 06-19-2023 Protein (U) [Mass/Vol] Negative Negative [facility] Protein [Mass/volume] in Ser um or PlasmaOrdered By: PROVIDER TEMP on 06-19-2023 Protein [Mass/Vol] 6.9 g/dL 6.4-8.9 [facility] RBC Auto (Bld) [#/Vol]Ordere d By: PROVIDER TEMP on 06-19-2023 RBC (Bld) [#/Vol] 4.94 10*6/uL 3.90-5.60 [facility] Serum or plasma albumin/glob ulin mass ratioOrdered By: PROVIDER TEMP on 06-19-2023 Albumin/Globulin [Mass ratio] 1.6 {ratio} [facility] Serum or plasma anion gap de terminationOrdered By: PROVIDER TEMP on 06-19-2023 Anion gap [Moles/Vol] 9.2 mmol/L 6.0-15.[address] [facility] Sodium [Moles/volume] in Ser um or PlasmaOrdered By: PROVIDER TEMP on 06-19-2023 Sodium [Moles/Vol] 138 mmol/L 136-145 [facility] Troponin I.cardiac [Mass/vol ume] in Serum or Plasma by Detection limit <= 0.01 ng/Ordered By: PROVIDER TEMP on 06-19-2023 Troponin I.cardiac DL <= 0.01 ng/mL [Mass/Vol] 7.8 pg/mL 0.0-20.0 [facility] Urea nitrogen [Mass/volume] in Serum or PlasmaOrdered By: PROVIDER TEMP on 06-19-2023 Urea nitrogen [Mass/Vol] 18 mg/dL 7-25 [facility] Urine appearanceOrdered By: PROVIDER TEMP on 06-19-2023 Appearance (U) Clear Clear [facility] Urine colorOrdered By: PROVI JEANETTE TEMP on 06-19-2023 Color (U) Yellow Yellow [facility] Urine glucose measurement by automated test strip (mass/volume)Ordered By: PROVIDER TEMP on 06-19-2023 Glucose Auto test strip (U) [Mass/Vol] Normal mg/dL Normal [facility] Urine hemoglobin detection b y automated test stripOrdered By: PROVIDER TEMP on 06-19-2023 Hemoglobin Auto test strip Ql (U) Negative Negative [facility] Urine leukocyte esterase det ection by automated test stripOrdered By: PROVIDER TEMP on 06-19-2023 Leukocyte esterase Auto test strip Ql (U) Negative Negative [facility] Urine nitrite detection by a utomated test stripOrdered By: PROVIDER TEMP on 06-19-2023 Nitrite Auto test strip Ql (U) Negative Negative [facility] Urobilinogen Auto test strip (U) [Mass/Vol]Ordered By: PROVIDER TEMP on 06-19-2023 Urobilinogen (U) [Mass/Vol] Normal mg/dL Normal [facility] WBC Auto (Bld) [#/Vol]Ordere d By: PROVIDER TEMP on 06-19-2023 WBC (Bld) [#/Vol] 4.8 10*3/uL 4.1-10.5 [facility] pH Auto test strip (U)Ordere d By: PROVIDER TEMP on 06-19-2023 pH (U) 1.005 [pH] 1.001-1.03 0 [facility] pH (U) 5.5 [pH] 5.0-9.0 [facility] ECH echo transthoracicon ECH echo transthoracic [facility] [place] [address] Echocardiogram Signed Patient: Yonatan Patel MR#: [id number] 6 : 1945 Acct:[id number] Age/Sex: 77 / M ADM Date: 03/01/23 Loc: Room: [address] [place] [address] Type: ADM INOo Attending Dr: Angely Lee DO Ordering Provider: Bobo Villagomez MD Date of Service: 03/01/23 ECH/ECH echo transthoracic: Neuro Symptoms/Deficit Copies to: Sinan Jolly MD, [facility] Bobo Villagomez MD Weight: 188 lb Performed [...] 0958 Signed By: Sinan Jolly MD, FACC 07/17/23 1215 Normal [facility] MR cervical spine wo conon 0 03-02-2023 MR cervical spine wo con [facility] Main [place] [address] [place] [address] MRI Report Signed Patient: Yonatan Patel MR#: [id number] 6 : 1945 Acct:[id number] Age/Sex: 77 / M ADM Date: 03/01/23 Loc: 3T Room: [address] [place] [address] Type: ADM INOo Attending Dr: Angely Lee [...] Daisha Fernandez M.D.03/02/2023 5:11 PM Dictation Location: [place] [address] Transcribed By: [facility] 03/02/23 171 Dictated By: Daisha Fernandez II, MD 03/02/23 1700 Signed By: 03/02/231710 Normal [facility] MR lumbar spine wo conon MR lumbar spine wo con [facility] [address] MRI Report Signed Patient: Yonatan Patel MR#: [id number] 6 : 1945 Acct:[id number] Age/Sex: 77 / M ADM Date: 03/01/23 Loc: Room: [address] [place] [address] Type: ADM INOo Attending Dr: Angely Lee [...] Daisha Fernandez M.D.03/02/2023 5:18 PM Dictation Location: [place] [address] Transcribed By: [facility] 03/02/231717 Dictated By: Daisha Fernandez II, MD 03/02/231710 Signed By: 03/02/231717 [facility] A1C with Estimated Average [place] 03-01-2023 Glucose [Mass/Vol] 123 mg/dL Normal [facility] Comment on above: Order Comment: Comme nt add on Result Comment: PERF ORMED BY: [place] [address] PATHOLOGIST HAZ TECH HARRY MARTI M.D. Performed By: #### A 1C [facility] Krista, LIPID #### [address] HbA1c (Bld) [Mass fraction] 5.9 % High 4.3-5.6 [facility] Comment on above: Order Comment: Comme nt add on Result Comment: Incr eased risk for diabetes: 5.7 - 6.4 diabetes: >6.4 glycemic control for adults with diabetes: <7.0 Performed By: #### A 1C WT Krista, LIPID #### [address] Activated partial thrombopla stin time (aPTT) in platelet poor plasma by coagulation aOrdered By: Alejo Lynn on 03-01-2023 aPTT Coag (PPP) [Time] 27.2 s 25.1-36.5 [facility] Alanine aminotransferase [En zymatic activity/volume] in Serum or PlasmaOrdered By: Alejo Lynn on 03-01-2023 ALT [Catalytic activity/Vol] 34 U/L 7-52 [facility] Albumin [Mass/volume] in Ser um or Plasma by Bromocresol green (BCG) dye binding methoOrdered By: Alejo Lynn on 03-01-2023 Albumin BCG dye [Mass/Vol] 4.4 g/dL 3.5-5.7 [facility] Alkaline phosphatase [Enzyma tic activity/volume] in Serum or PlasmaOrdered By: Alejo Lynn on 03-01-2023 ALP [Catalytic activity/Vol] 61 U/L 34-104 [facility] Aspartate aminotransferase [ Enzymatic activity/volume] in Serum or PlasmaOrdered By: Alejo Lynn on 03-01-2023 AST [Catalytic activity/Vol] 30 U/L 13-39 [facility] B-Type Natriuretic Peptideon 03-01-2023 Natriuretic peptide B (Bld) [Mass/Vol] 96.0 pg/mL Normal 5-100 [facility] Comment on above: Result Comment: PERF ORMED BY: [facility] [address] [place] [address] PATHOLOGIST HAZ TECH HARRY MARTI M.D. Performed By: #### H S TROP, CMP, CK, CBC #### [facility] [address] Basic Metabolic Panelon 02-14 Anion gap [Moles/Vol] 10.3 mmol/L Normal 6.0-15.0 [facility] Comment on above: Performed By: #### H S TROP, CMP, CK, CBC #### [facility] [address] Calcium [Mass/Vol] 9.7 mg/dL Normal 8.6-10.3 [facility] Comment on above: Performed By: #### H S TROP, CMP, CK, CBC #### [facility] [address] Chloride [Moles/Vol] 107 mmol/L Normal 98-[address] [facility] Comment on above: Performed By: #### H S TROP, CMP, CK, CBC #### [address] CO2 [Moles/Vol] 26.0 mmol/L Normal 21.0-31.0 [facility] Comment on above: Performed By: #### H S TROP, CMP, CK, CBC #### [facility] [address] [place] [address] [place] Creatinine [Mass/Vol] 0.91 mg/dL Normal 0.70-1.[address] [facility] Comment on above: Performed By: #### H S TROP, CMP, CK, CBC #### [facility] [address] [place] [address] [place] Creatinine Clr Calc Pharmacy 76.53 Normal [facility] Comment on above: Result Comment: PERF ORMED BY: [facility] [address] [place] [address] PATHOLOGIST HAZ TECH HARRY MARTI M.D. Performed By: #### H S TROP, CMP, CK, CBC #### [facility] [address] [place] [address] [place] GFR/1.73 sq M.predicted MDRD (S/P/Bld) [Vol rate/Area] mL/min/{1.73_m2} Normal [facility] Comment on above: Performed By: #### H S TROP, CMP, CK, CBC #### [facility] [address] Glucose [Mass/Vol] 106 mg/dL High 70-100 [facility] Comment on above: Result Comment: [facility] Glucose Reference Range is dependent on time and content of last meal. Glucose of more than 200 mg/dL in a nonstressed, ambulatory subject supports the diagnosis of Diabetes Mellitus. ADA recommended reference range Performed By: #### H S TROP, CMP, CK, CBC #### [address] Potassium [Moles/Vol] 4.3 mmol/L Normal 3.5-5.[address] [facility] Comment on above: Performed By: #### H S TROP, CMP, CK, CBC #### [address] Sodium [Moles/Vol] 139 mmol/L Normal 136-145 [facility] Comment on above: Performed By: #### H S TROP, CMP, CK, CBC #### [address] Urea nitrogen [Mass/Vol] 16 mg/dL Normal 7-25 [facility] Comment on above: Performed By: #### H S TROP, CMP, CK, CBC #### [facility] [address] [place] [address] [place] Basophils Auto (Bld) [#/Vol] Ordered By: Alejo Lynn on 03-01-2023 Basophils (Bld) [#/Vol] 0.0 10*3/uL 0.0-0.2 [facility] Basophils/100 WBC Auto (Bld) Ordered By: Alejo Lynn on 03-01-2023 Basophils/100 WBC (Bld) 0.7 % . [facility] Bilirubin Test strip Ql (U)O rdered By: Alejo Lynn on 03-01-2023 Bilirubin Ql (U) Negative Negative [facility] Bilirubin.direct [Mass/volum e] in Serum or PlasmaOrdered By: Alejo Lynn on 03-01-2023 Bilirubin.direct [Mass/Vol] 0.30 mg/dL 0.03-0.18 [facility] Bilirubin.total [Mass/volume ] in Serum or PlasmaOrdered By: Alejo Lynn on 03-01-2023 Bilirubin [Mass/Vol] 1.7 mg/dL 0.3-1.[address] [facility] Comment on above: Samples from patient s who have taken Naproxen have shown spurious elevation in Total Bilirubin levels. A metabolite of Naproxen, O-desmethylnaproxen, has been shown to interfere with the Ady-Kary method for measuring Total Bilirubin. CT head stroke alert wo cono n 03-01-2023 CT head stroke alert wo [facility] [address] CT Scan Report Signed Patient: Yonatan Patel MR#: [id number] 6 : 1945 Acct:[id number] Age/Sex: 77 / M ADM Date: 03/01/23 Loc: ER Room: Type: [facility] ER Attending Dr: Copies to: Alejo [...] Selena Reid M.D.03/01/2023 8:13 AM Dictation Location: [place] [address] Transcribed By: [facility] 03/01/23812 Dictated By: Selena Reid MD 03/01/23806 Signed By: 03/01/23812 Normal [facility] Calcium [Mass/volume] in Ser um or PlasmaOrdered By: Alejo Lynn on 03-01-2023 Calcium [Mass/Vol] 9.7 mg/dL 8.6-10.3 [facility] Carbon dioxide, total [Moles /volume] in Serum or PlasmaOrdered By: Alejo Lynn on 03-01-2023 CO2 [Moles/Vol] 26.0 mmol/L 21.0-31.0 [facility] Chloride [Moles/volume] in S raymundo or PlasmaOrdered By: Alejo Lynn on 03-01-2023 Chloride [Moles/Vol] 107 mmol/L 98-[address] [facility] Color Auto (U)Ordered By: Franco red Leah on 03-01-2023 Color (U) Yellow Yellow [facility] Complete Blood Count Auto Di ffon 03-01-2023 Basophils (Bld) [#/Vol] 0.0 10*3/uL Normal 0.0-0.2 [facility] Comment on above: Result Comment: PERF ORMED BY: [address] [place] [address] PATHOLOGIST HAZ TECH HARRY MARTI M.D. Performed By: #### H S TROP, CMP, CK, CBC #### [facility] [address] [place] [address] [place] Basophils/100 WBC (Bld) 0.7 % Normal . [facility] Comment on above: Performed By: #### H S TROP, CMP, CK, CBC #### [facility] [address] [place] [address] [place] Eosinophils (Bld) [#/Vol] 0.1 10*3/uL Normal 0.0-0.45 [facility] Comment on above: Performed By: #### H S TROP, CMP, CK, CBC #### [address] Eosinophils/100 WBC (Bld) 1.4 % Normal . [facility] Comment on above: Performed By: #### H S TROP, CMP, CK, CBC #### [address] Erythrocyte distribution width (RBC) [Ratio] 14.5 % Normal 12.0-14.8 [facility] Comment on above: Performed By: #### H S TROP, CMP, CK, CBC #### [address] Hematocrit (Bld) [Volume fraction] 43.2 % Normal 38.8-50.0 [facility] Comment on above: Performed By: #### H S TROP, CMP, CK, CBC #### [address] Hemoglobin (Bld) [Mass/Vol] 14.9 g/dL Normal 13.0-17.0 [facility] Comment on above: Performed By: #### H S TROP, CMP, CK, CBC #### [address] Lymphocytes (Bld) [#/Vol] 1.3 10*3/uL Normal 1.00-4.8 [facility] Comment on above: Performed By: #### H S TROP, CMP, CK, CBC #### [address] Lymphocytes/100 WBC (Bld) 23.7 % Normal . [facility] Comment on above: Performed By: #### H S TROP, CMP, CK, CBC #### [address] MCH (RBC) [Entitic mass] 29.6 pg Normal 27.5-35.2 [facility] Comment on above: Performed By: #### H S TROP, CMP, CK, CBC #### [address] MCV (RBC) [Entitic vol] 86.1 fL Normal 83.5-101 [facility] Comment on above: Performed By: #### H S TROP, CMP, CK, CBC #### [address] Mean Corpuscular HGB Conc 34.4 g/dL Normal 32.5-35.6 [facility] Comment on above: Performed By: #### H S TROP, CMP, CK, CBC #### [address] Monocytes (Bld) [#/Vol] 0.4 10*3/uL Normal 0.0-0.8 [facility] Comment on above: Performed By: #### H S TROP, CMP, CK, CBC #### [address] Monocytes/100 WBC (Bld) 17.75 % Normal 0.00-20.00 [facility] Comment on above: Performed By: #### H S TROP, CMP, CK, CBC #### [address] Monocytes/100 WBC (Bld) 8.3 % Normal . [facility] Comment on above: Performed By: #### H S TROP, CMP, CK, CBC #### [address] Neutrophils (Bld) [#/Vol] 3.5 10*3/uL Normal 1.8-7.7 [facility] Comment on above: Performed By: #### H S TROP, CMP, CK, CBC #### [address] Neutrophils/100 WBC (Bld) 65.9 % Normal . [facility] Comment on above: Performed By: #### H S TROP, CMP, CK, CBC #### [address] NRBC% 0.3 /100{WBC} Normal 0-0.5 [facility] Comment on above: Performed By: #### H S TROP, CMP, CK, CBC #### [facility] [address] [place] [address] Platelet mean volume (Bld) [Entitic vol] 8.0 fL Normal 6.6-10.1 [facility] Comment on above: Performed By: #### H S TROP, CMP, CK, CBC #### [facility] [address] [place] [address] Platelets (Bld) [#/Vol] 143 10*3/uL Low 150-450 [facility] Comment on above: Performed By: #### H S TROP, CMP, CK, CBC #### [address] RBC (Bld) [#/Vol] 5.02 10*6/uL Normal 3.90-5.60 [facility] Comment on above: Performed By: #### H S TROP, CMP, CK, CBC #### [address] WBC (Bld) [#/Vol] 5.4 10*3/uL Normal 4.1-10.5 [facility] Comment on above: Performed By: #### H S TROP, CMP, CK, CBC #### [address] Creatine Kinaseon 03-01-2023 CK [Catalytic activity/Vol] 178 U/L Normal 30-223 [facility] Comment on above: Performed By: #### H S TROP, CMP, CK, CBC #### [address] Creatine kinase [Enzymatic a ctivity/volume] in Serum or PlasmaOrdered By: Alejo Lynn on 03-01-2023 CK [Catalytic activity/Vol] 178 U/L 30- [facility] Creatinine [Mass/volume] in Serum or PlasmaOrdered By: Alejo Lynn on 03-01-2023 Creatinine [Mass/Vol] 0.91 mg/dL 0.70-1.[address] [facility] ECG 12 lead ECGon 03-01-2023 ECG 12 lead ECG [facility] Main [place] [address] [place] [address] Electrocardiograph Report Signed Patient: Yonatan Patel MR#: [id number] 6 : 1945 Acct:[id number] Age/Sex: 77 / M ADM Date: 03/01/23 Loc: Room: [address] [place] [address] Type: ADM INOo Attending Dr: Bobo Villagomez [...] longer present Confirmed by Alejo Lynn DO ([id number]) on 03/01/2023 3:12:57 PM Referred By: Electronically Signed By:Alejo Lynn DO Transcribed By: [facility] Signed By Alejo Lynn DO 3 1513 Normal [facility] Eosinophils Auto (Bld) [#/Vo l]Ordered By: Alejo Lynn on 03-01-2023 Eosinophils (Bld) [#/Vol] 0.1 10*3/uL 0.0-0.45 [facility] Eosinophils/100 WBC Auto (Bl d)Ordered By: Alejo Lynn on 03-01-2023 Eosinophils/100 WBC (Bld) 1.4 % . [facility] Erythrocyte distribution wid th Auto (RBC) [Ratio]Ordered By: Alejo Lynn on 03-01-2023 Erythrocyte distribution width (RBC) [Ratio] 14.5 % 12.0-14.8 [facility] Globulin Calc (S) [Mass/Vol] Ordered By: Alejo Lynn on 03-01-2023 Globulin (S) [Mass/Vol] 2.3 g/dL [facility] Glucose [Mass/volume] in Ser um or PlasmaOrdered By: Alejo Lynn on 03-01-2023 Glucose [Mass/Vol] 106 mg/dL 70-100 [facility] Comment on above: ADA recommended refe rence rangeRandom Glucose Reference Range is dependent on time and content of last meal. Glucose of more than 200 mg/dL in a nonstressed, ambulatory subject supports the diagnosis of Diabetes Mellitus. Hematocrit Auto (Bld) [Volum e fraction]Ordered By: Alejo Lynn on 03-01-2023 Hematocrit (Bld) [Volume fraction] 43.2 % 38.8-50.0 [facility] Hemoglobin [Mass/volume] in BloodOrdered By: Alejo Lynn on 03-01-2023 Hemoglobin (Bld) [Mass/Vol] 14.9 g/dL 13.0-17.0 [facility] Hepatic Panelon 03-01-2023 Albumin [Mass/Vol] 4.4 g/dL Normal 3.5-5.7 [facility] Comment on above: Performed By: #### H S TROP, CMP, CK, CBC #### [facility] [address] Albumin/Globulin [Mass ratio] 1.9 {ratio} Normal [facility] Comment on above: Performed By: #### H S TROP, CMP, CK, CBC #### [facility] [address] [place] [address] [place] ALP [Catalytic activity/Vol] 61 U/L Normal 34-104 [facility] Comment on above: Performed By: #### H S TROP, CMP, CK, CBC #### [facility] [address] [place] [id number] [place] ALT [Catalytic activity/Vol] 34 U/L Normal 7-52 [facility] Comment on above: Performed By: #### H S TROP, CMP, CK, CBC #### [facility] [address] [place] [id number] [place] AST [Catalytic activity/Vol] 30 U/L Normal 13-39 [facility] Comment on above: Performed By: #### H S TROP, CMP, CK, CBC #### [facility] [address] Bilirubin [Mass/Vol] 1.7 mg/dL High 0.3-1.[address] [facility] Comment on above: Result Comment: Samp les from patients who have taken Naproxen have shown spurious elevation in Total Bilirubin levels. A metabolite of Naproxen, O-desmethylnaproxen, has been shown to interfere with the Jendrassik-Grof method for measuring Total Bilirubin. Performed By: #### H S TROP, CMP, CK, CBC #### [facility] [address] Bilirubin,Indirect 1.4 mg/dL Normal [facility] Comment on above: Performed By: #### H S TROP, CMP, CK, CBC #### [facility] [address] Bilirubin.indirect [Mass/Vol] 0.30 mg/dL High 0.03-0.18 [facility] Comment on above: Performed By: #### H S TROP, CMP, CK, CBC #### [facility] [address] Globulin (S) [Mass/Vol] 2.3 g/dL Normal [facility] Comment on above: Performed By: #### H S TROP, CMP, CK, CBC #### [facility] [address] Protein [Mass/Vol] 6.7 g/dL Normal 6.4-8.9 [facility] Comment on above: Performed By: #### H S TROP, CMP, CK, CBC #### [facility] [address] Ketones Auto test strip (U) [Mass/Vol]Ordered By: Alejo Lynn on 03-01-2023 Ketones (U) [Mass/Vol] Negative Negative [facility] - CoagulationOrde red By: Alejo Lynn on 03-01-2023 PT Coag (PPP) [Time] 11.6 s 9.0-12.[address] [facility] Leukocytes [#/volume] correc airam for nucleated erythrocytes in Blood by Automated counOrdered By: Alejo Lynn on 03-01-2023 WBC corrected for nucl RBC Auto (Bld) [#/Vol] 5.4 10*3/uL 4.1-10.5 [facility] Lipid Panelon 03-01-2023 Cholesterol [Mass/Vol] 96 mg/dL Low 140-200 [facility] Comment on above: Order Comment: Comme nt add on Result Comment: Chol less than 200 mg/dl low risk Chol 201-239 mg/dl borderline risk Chol 240 mg/dl and greater high risk Performed By: #### A 1C WT Krista, LIPID #### [facility] [address] Cholesterol in HDL [Mass/Vol] 36 mg/dL Normal 23-92 [facility] Comment on above: Order Comment: Comme nt add on Result Comment: HDL CHOL ATP-III CLASSIFICATION Cardiovascular Risk HDL > or equal to 60 mg/dL LOW HDL < 40 mg/dL HIGH Performed By: #### A 1C WT Krista, LIPID #### [facility] [address] [place] [address] [place] Cholesterol.total/Chol esterol in HDL [Mass ratio] 2.7 {ratio} Normal <5.0 [facility] Comment on above: Order Comment: Comme nt add on Result Comment: PERF ORMED BY: [place] [address] PATHOLOGIST HAZ TECH HARRY MARTI M.D. Performed By: #### A 1C WT eA, LIPID #### [facility] [address] [place] [id number] [place] LDL Cholesterol,Calculated 39 mg/dL Normal 0-100 [facility] Comment on above: Order Comment: Comme nt add on Result Comment: LDL ATP III CLASSIFICATION LDL less than 100 mg/dL Optimal LDL 100-129 mg/dL Near or above optimal LDL 130-159 mg/dL Borderline high LDL 160-189 mg/dL High LDL greater than 189 mg/dL Very high Performed By: #### A 1C WT eA, LIPID #### [facility] [address] Triglyceride w/Reflex 106 mg/dL Normal 0-[address] [facility] Comment on above: Order Comment: Commcrystal nt add on Result Comment: TRIG ATP III CLASSIFICATION TRIG less than 150 mg/dL Normal TRIG 150-199 mg/dL Borderline high TRIG 200-500 mg/dL High TRIG greater than 500 mg/dL Very high Standard traceable to the Center for Disease Conrtrol and Prevention (CDC) test method. Performed By: #### A 1C [facility] Krista, LIPID #### [facility] [address] VLDL CHOLESTEROL 21 mg/dL Normal [facility] Comment on above: Order Comment: Trevor nt add on Performed By: #### A 1C [facility] Krista, LIPID #### [facility] [address] Lymphocytes Auto (Bld) [#/Vo l]Ordered By: Alejo Lynn on 03-01-2023 Lymphocytes (Bld) [#/Vol] 1.3 10*3/uL 1.00-4.8 [facility] Lymphocytes/100 WBC Auto (Bl d)Ordered By: Alejo Lynn on 03-01-2023 Lymphocytes/100 WBC (Bld) 23.7 % . [facility] MCH Auto (RBC) [Entitic mass ]Ordered By: Alejo Lynn on 03-01-2023 MCH (RBC) [Entitic mass] 29.6 pg 27.5-35.2 [facility] MCHC Auto (RBC) [Mass/Vol]Or dered By: Alejo Lynn on 03-01-2023 MCHC (RBC) [Mass/Vol] 34.4 g/dL 32.5-35.[address] [facility] MCV Auto (RBC) [Entitic vol] Ordered By: Alejo Lynn on 03-01-2023 MCV (RBC) [Entitic vol] 86.1 fL 83.5-101 [facility] Monocyte distribution width [Entitic volume] in Blood by AutomatedOrdered By: Alejo Lynn on 03-01-2023 Monocyte distribution width Auto (Bld) [Entitic vol] 17.75 % 0.00-20.00 [facility] Monocytes Auto (Bld) [#/Vol] Ordered By: Alejo Lynn on 03-01-2023 Monocytes (Bld) [#/Vol] 0.4 10*3/uL 0.0-0.8 [facility] Monocytes/100 WBC Auto (Bld) Ordered By: Alejo Lynn on 03-01-2023 Monocytes/100 WBC (Bld) 8.3 % . [facility] Natriuretic peptide B [Mass/ Vol]Ordered By: Alejo Lynn on 03-01-2023 Natriuretic peptide B (Bld) [Mass/Vol] 96.0 pg/mL 5-100 [facility] Neutrophils Auto (Bld) [#/Vo l]Ordered By: Alejo Lynn on 03-01-2023 Neutrophils (Bld) [#/Vol] 3.5 10*3/uL 1.8-7.7 [facility] Neutrophils/100 WBC Auto (Bl d)Ordered By: Alejo Lynn on 03-01-2023 Neutrophils/100 WBC (Bld) 65.9 % . [facility] Nitrite Test strip Ql (U)Ord ered By: Alejo Lynn on 03-01-2023 Nitrite Ql (U) Negative Negative [facility] No Panel InformationOrdered By: lAejo Lynn on 03-01-2023 Estimated GFR (CKD-EPI) > 60.0 mL/Min [facility] Creatinine Clearance (Chem 76.53 [facility] Nucleated erythrocytes [Pres ence] in Blood by Automated countOrdered By: Alejo Lynn on 03-01-2023 Nucleated RBC Auto Ql (Bld) 0.3 /100{WBC} 0-0.5 [facility] Partial Thromboplastin Timeo n 03-01-2023 aPTT Coag (Bld) [Time] 27.2 s Normal 25.1-36.5 [facility] Comment on above: Result Comment: PERF ORMED BY: [facility] [address] [place] [address] PATHOLOGIST HAZ TECH HARRY MARTI M.D. Performed By: #### H S TROP, CMP, CK, CBC #### [facility] [address] [id number] [facility] Platelet mean volume Auto (B ld) [Entitic vol]Ordered By: Alejo Lynn on 03-01-2023 Platelet mean volume (Bld) [Entitic vol] 8.0 fL 6.6-10.1 [facility] Platelet poor plasma interna tional normalized ratio (INR) by coagulation assay (relatOrdered By: Alejo Lynn on 03-01-2023 INR Coag (PPP) [Relative time] 1.0 {INR} [facility] Comment on above: INR Therapeutic [...] 03-01-2023 Platelets (Bld) [#/Vol] 143 10*3/uL 150-450 [facility] Potassium [Moles/volume] in Serum or PlasmaOrdered By: Alejo Lynn on 03-01-2023 Potassium [Moles/Vol] 4.3 mmol/L 3.5-5.[address] [facility] Protein Auto test strip (U) [Mass/Vol]Ordered By: Alejo Lynn on 03-01-2023 Protein (U) [Mass/Vol] Negative Negative [facility] Protein [Mass/volume] in Ser um or PlasmaOrdered By: Alejo Lynn on 03-01-2023 Protein [Mass/Vol] 6.7 g/dL 6.4-8.9 [facility] Prothrombin Time INRon 03-01 INR Coag (PPP) [Relative time] 1.0 {INR} Normal [facility] Comment on above: Result Comment: [...] H S TROP, CMP, CK, CBC #### [facility] [address] PT Coag (PPP) [Time] 11.6 s Normal 9.0-12.[address] [facility] Comment on above: Performed By: #### H S TROP, CMP, CK, CBC #### [facility] [address] RBC Auto (Bld) [#/Vol]Ordere d By: Alejo Lynn on 03-01-2023 RBC (Bld) [#/Vol] 5.02 10*6/uL 3.90-5.60 [facility] Serum or plasma albumin/glob ulin mass ratioOrdered By: Alejo Lynn on 03-01-2023 Albumin/Globulin [Mass ratio] 1.9 {ratio} [facility] Serum or plasma anion gap de terminationOrdered By: Alejo Lynn on 03-01-2023 Anion gap [Moles/Vol] 10.3 mmol/L 6.0-15.0 [facility] Serum or plasma non-glucuron idated bilirubin measurement (mass/volume)Ordered By: Alejo Lynn on 03-01-2023 Bilirubin.indirect [Mass/Vol] 1.4 mg/dL [facility] Sodium [Moles/volume] in Ser um or PlasmaOrdered By: Alejo Lynn on 03-01-2023 Sodium [Moles/Vol] 139 mmol/L 136-145 [facility] Specific gravity Auto test s trip (U) [Rel density]Ordered By: Alejo Lynn on 03-01-2023 Specific gravity (U) [Rel density] 1.014 1.001-1.03 0 [facility] Troponin I High Sensitivityo n 03-01-2023 Troponin I High Sensitivity 8.1 pg/mL Normal 0.0-20.0 [facility] Comment on above: Result Comment: PERF ORMED BY: [place] [address] PATHOLOGIST HAZ TECH HARRY MARTI M.D. Performed By: #### H S TROP, CMP, CK, CBC #### [facility] [address] Troponin I.cardiac [Mass/vol ume] in Serum or Plasma by Detection limit <= 0.01 ng/Ordered By: Alejo Lynn on 03-01-2023 Troponin I.cardiac DL <= 0.01 ng/mL [Mass/Vol] 8.1 pg/mL 0.0-20.0 [facility] Urea nitrogen [Mass/volume] in Serum or PlasmaOrdered By: Alejo Lynn on 03-01-2023 Urea nitrogen [Mass/Vol] 16 mg/dL 7 [facility] Urinalysison 03-01-2023 Appearance (U) Clear Normal Clear [facility] Comment on above: Order Comment: Name Collection Type:: Clean-Voided Midstream Performed By: #### U A #### [facility] [address] [place] [address] [place] Bilirubin,Urine Negative Normal Negative [facility] Comment on above: Order Comment: Name Collection Type:: Clean-Voided Midstream Performed By: #### U A #### [facility] [address] [place] [address] Color (U) Yellow Normal Yellow [facility] Comment on above: Order Comment: Name Collection Type:: Clean-Voided Midstream Performed By: #### U A #### [facility] [address] [place] [address] [place] Glucose Ql (U) Normal Normal Normal [facility] Comment on above: Order Comment: Name Collection Type:: Clean-Voided Midstream Performed By: #### U A #### [facility] [address] [place] [address] [place] Ketones Ql (U) Negative Normal Negative [facility] Comment on above: Order Comment: Name Collection Type:: Clean-Voided Midstream Performed By: #### U A #### [facility] [address] [place] [address] [place] Leukocyte esterase Test strip Ql (U) Negative Normal Negative [facility] Comment on above: Order Comment: Name Collection Type:: Clean-Voided Midstream Performed By: #### U A #### [facility] [address] [place] [address] [place] Nitrite,Urine Negative Normal Negative [facility] Comment on above: Order Comment: Name Collection Type:: Clean-Voided Midstream Performed By: #### U A #### [place] [address] [place] Occult Blood,Urine Negative Normal Negative [facility] Comment on above: Order Comment: Name Collection Type:: Clean-Voided Midstream Result Comment: PERF ORMED BY: [place] [address] PATHOLOGIST HAZ TECH HARRY MARTI M.D. Performed By: #### U A #### [address] pH (U) 7.5 [pH] Normal 5.0-9.0 [facility] Comment on above: Order Comment: Name Collection Type:: Clean-Voided Midstream Performed By: #### U A #### [place] [address] [place] Protein,Urine Negative Normal Negative [facility] Comment on above: Order Comment: Name Collection Type:: Clean-Voided Midstream Performed By: #### U A #### [place] [address] [place] Specificy Strawn,Urine 1.014 Normal 1.001-1.03 0 [facility] Comment on above: Order Comment: Name Collection Type:: Clean-Voided Midstream Performed By: #### U A #### [facility] [address] [place] [address] [place] Urobilinogen,Urine Normal Normal Normal [facility] Comment on above: Order Comment: Name Collection Type:: Clean-Voided Midstream Performed By: #### U A #### [place] [address] [place] Urine clarity by refractomet ry automatedOrdered By: Alejo Lynn on 03-01-2023 Clarity Refractometry automated (U) Clear Clear [facility] Urine glucose measurement by automated test strip (mass/volume)Ordered By: Alejo Lynn on 03-01-2023 Glucose Auto test strip (U) [Mass/Vol] Normal mg/dL Normal [facility] Urine hemoglobin detection b y automated test stripOrdered By: Alejo Lynn on 03-01-2023 Hemoglobin Auto test strip Ql (U) Negative Negative [facility] Urine leukocyte esterase det ection by automated test stripOrdered By: Alejo Lynn on 03-01-2023 Leukocyte esterase Auto test strip Ql (U) Negative Negative [facility] Urobilinogen Auto test strip (U) [Mass/Vol]Ordered By: Alejo Lynn on 03-01-2023 Urobilinogen (U) [Mass/Vol] Normal mg/dL Normal [facility] WBC Auto (Bld) [#/Vol]Ordere d By: Alejo Lynn on 03-01-2023 WBC (Bld) [#/Vol] 5.4 10*3/uL 4.1-10.5 [facility] XR chest 1V portableon 03-01 XR chest 1V portable [facility] [place] [address] XRay Report Signed Patient: Yonatan Patel MR#: [id number] 6 : 1945 Acct:[id number] Age/Sex: 77 / M ADM Date: 03/01/23 Loc: Room: [address] [place] [address] Type: ADM INOo Attending Dr: Bobo Villagomez [...] Selena Reid M.D.03/01/2023 9:15 AM Dictation Location: [place] [address] Transcribed By: [facility] 03/01/23914 Dictated By: Selena Reid MD 03/01/23913 Signed By: 03/01/23914 Normal [facility] pH Auto test strip (U)Ordere d By: Alejo Lynn on 03-01-2023 pH (U) 7.5 [pH] 5.0-9.0 [facility] H Pylori Stool Ag, EIAon H Pylori Stool Ag, EIA Negative Normal Negative [facility] Comment on above: Order Comment: SOURC E OF SPECIMEN: STOOL Result Comment: Perf ormed at: [facility] [address] [id number] [employer] Project Manager: Juan Howard MD, Phone: [phone] PERFORMED BY: [place] [address] PATHOLOGIST HAZ TECH HARRY MARTI M.D. Performed By: #### H S TROP, CMP, CK, CBC #### [address] CBC AUTO DIFFon 09-14-2022 BASO # 0.0 103/ul Normal 0.0-0.1 [facility] [place] [facility] Comment on above: Performed By: #### C BC #### [facility] [address] [place] [address] Dr. Patrica Nathan Basophils/100 WBC (Bld) 0.7 % Normal 0.2-2.0 [facility] [place] [facility] Comment on above: Performed By: #### C BC #### [facility] [address] [place] [address] Dr. Patrica Nathan EO # 0.1 103/ul Normal 0.0-0.7 [facility] [place] [facility] Comment on above: Performed By: #### C BC #### [facility] [address] [place] [address] Dr. Patrica Nathan Eosinophils/100 WBC (Bld) 1.5 % Normal 0.9-7.0 [facility] [place] [facility] Comment on above: Performed By: #### C BC #### [facility] [address] [place] [address] Dr. Patrica Nathan Erythrocyte distribution width (RBC) [Ratio] 14.2 % Normal 11.0-15.0 [facility] [place] [facility] Comment on above: Performed By: #### C BC #### [facility] [address] [place] [address] Dr. Patrica Nathan Hematocrit (Bld) [Volume fraction] 42.1 % Normal 42.0-54.0 [facility] [place] [facility] Comment on above: Performed By: #### C BC #### [facility] [address] [place] [address] Dr. Patrica Nathan Hemoglobin (Bld) [Mass/Vol] 14.6 g/dL Normal 14.0-18.0 [facility] [place] [facility] Comment on above: Performed By: #### C BC #### [facility] [address] [place] [address] Dr. Patrica Nathan IG # 0.03 10e3/ul Normal 0.00-0.03 [facility] [place] [facility] Comment on above: Performed By: #### C BC #### [facility] [address] [place] [address] Dr. Patrica Nathan IG % 0.5 % Normal 0.0-0.5 [facility] [place] [facility] Comment on above: Performed By: #### C BC #### [facility] [address] [place] [address] Dr. Patrica Nathan LYMPH # 1.3 103/ul Normal 1.2-3.8 [facility] [place] [facility] Comment on above: Performed By: #### C BC #### [facility] [address] [place] [address] Dr. Patrica Nathan Lymphocytes/100 WBC (Bld) 22.4 % Normal 20.5-60.0 [facility] [place] [facility] Comment on above: Performed By: #### C BC #### [facility] [address] [place] [address] Dr. Patrica Nathan MANUAL DIFF REQ NO Normal [facility] [place] [facility] Comment on above: Performed By: #### C BC #### [facility] [address] [address] [address] Patrica Nathan MCH (RBC) [Entitic mass] 29.4 pg Normal 25.9-34.0 [facility] [place] [facility] Comment on above: Performed By: #### C BC #### [facility] [address] [place] [address] Dr. Patrica Nathan MCHC (RBC) [Mass/Vol] 34.7 g/dL Normal 29.9-35.2 [facility] Comment on above: Performed By: #### C BC #### [facility] [address] [place] [address] Dr. Patrica Nathan MCV (RBC) [Entitic vol] 84.9 fL Normal 80.0-94.0 [facility] Comment on above: Performed By: #### C BC #### [facility] [address] [place] [address] Dr. Patrica Nathan MONO # 0.6 103/ul Normal 0.3-0.8 [facility] Comment on above: Performed By: #### C BC #### [facility] [address] [place] [address] Dr. Patrica Nathan Monocytes/100 WBC (Bld) 9.9 % Normal 1.7-12.0 [facility] Comment on above: Performed By: #### C BC #### [facility] [address] [place] [address] Dr. Patrica Nathan NEUT # 3.9 103/ul Normal 1.4-6.5 [facility] Comment on above: Performed By: #### C BC #### [facility] [address] [place] [address] Dr. Patrica Nathan Neutrophils/100 WBC (Bld) 65.0 % Normal 43.0-75.0 [facility] Comment on above: Performed By: #### C BC #### [facility] [address] [place] [address] Dr. Patrica Nathan Platelet mean volume (Bld) [Entitic vol] 9.6 fL Normal 9.5-13.5 [facility] Comment on above: Performed By: #### C BC #### [facility] [address] [place], [place] [address] Dr. Patrica Nathan PLT 170 103/ul Normal 150-450 [facility] Comment on above: Performed By: #### C BC #### [facility] [address] [place], [place] [address] Dr. Patrica Nathan RBC 4.96 106/ul Normal 4.70-6.10 [facility] Comment on above: Performed By: #### C BC #### [facility] [address] [place], [place] [address] Dr[address] Patrica Nathan WBC 6.0 103/ul Normal 4.0-11.0 [facility] Comment on above: Performed By: #### C BC #### [facility] [address] [place], [place] [address] HEAD WO CONon [...] for further evaluation. Electronically authenticated by: ANGELY JAMARIDAVID Date: 2022-09-14 10:00 Normal [facility] PROF 14(COMP METB)on 023 Albumin [Mass/Vol] 3.7 g/dL Normal 3.4-5.0 [facility] [place] [facility] Comment on above: Performed By: #### C MP, HSTROPN #### [facility] [address] [address] [address] Patrica Nathan Albumin/Globulin [Mass ratio] 1.4 {ratio} Normal [facility] [place] [facility] Comment on above: Performed By: #### C MP, HSTROPN #### [facility] [address] [place] [address] Dr. Patrica Nathan ALP [Catalytic activity/Vol] 83 U/L Normal 46-116 [facility] [place] [facility] Comment on above: Performed By: #### C MP, HSTROPN #### [facility] [address] [address] [address] Patrica Nathan ALT [Catalytic activity/Vol] 57 U/L Normal 16-63 [facility] [place] [facility] Comment on above: Performed By: #### C MP, HSTROPN #### [facility] [address] [address] [address] Patrica Nathan Anion gap [Moles/Vol] 11.9 mmol/L Normal [facility] Comment on above: Performed By: #### C MP, HSTROPN #### [facility] [address] [address] [address] Patrica Nathan AST [Catalytic activity/Vol] 43 U/L Critically high 15-37 [facility] [place] [facility] Comment on above: Performed By: #### C MP, HSTROPN #### [facility] [address] [address] [address] Patrica Nathan Bilirubin [Mass/Vol] 1.1 mg/dL Critically high 0.2-1.0 [facility] [place] [facility] Comment on above: Performed By: #### C MP, HSTROPN #### [facility] [address] [place] [address] Dr. Patrica Nathan Calcium [Mass/Vol] 9.2 mg/dL Normal 8.5-10.1 [facility] Comment on above: Performed By: #### C JV, HSTROPN #### [facility] [address] [place] [address] Dr. Patrica Nathan Chloride [Moles/Vol] 106 mmol/L Normal 98-107 [facility] Comment on above: Performed By: #### C JV, HSTROPN #### [facility] [address] [place] [address] Dr. Patrica Nathan CO2 [Moles/Vol] 28.0 mmol/L Normal 21.0-32.0 [facility] Comment on above: Performed By: #### C JV, HSTROPN #### [facility] [address] [place] [address] Dr. Patrica Nathan Creatinine [Mass/Vol] 0.92 mg/dL Normal 0.70-1.30 [facility] [place] [facility] Comment on above: Performed By: #### C JV, HSTROPN #### [facility] [address] [place] [address] Dr. Patrica Nathan EGFR-AF ARGENTINE >60 Normal >=60 [facility] Comment on above: Performed By: #### C JV, HSTROPN #### [facility] [address] [place] [address] Dr. Patrica Nathan EGFR-NON AF ARGENTINE >60 Normal >=60 [facility] Comment on above: Performed By: #### C JV, HSTROPN #### [facility] [address] [place] [address] Dr. Patrica Nathan Globulin (S) [Mass/Vol] 2.7 g/dL Normal [facility] Comment on above: Performed By: #### C JV, HSTROPN #### [facility] [address] [place] [address] Dr. Patrica Nathan Glucose [Mass/Vol] 90 mg/dL Normal 74-106 [facility] Comment on above: Performed By: #### C JV, HSTROPN #### [facility] [address] [place] [address] Dr. Patrica Nathan Potassium [Moles/Vol] 3.9 mmol/L Normal 3.5-5.1 [facility] Comment on above: Performed By: #### C MP, HSTROPN #### [facility] [address] [place] [address] Dr. Patrica Nathan Protein [Mass/Vol] 6.4 g/dL Normal 6.4-8.2 [facility] Comment on above: Performed By: #### C MP, HSTROPN #### [facility] [address] [place] [address] Dr. Patrica Nathan Sodium [Moles/Vol] 142 mmol/L Normal 136-145 [facility] [place] [facility] Comment on above: Performed By: #### C JV, HSTROPN #### [facility] [address] [place] [address] Dr. Patrica Nathan Urea nitrogen [Mass/Vol] 19.0 mg/dL Critically high 7.0-18.0 [facility] [place] [facility] Comment on above: Performed By: #### C JV, HSTROPN #### [facility] [address] [place] [address] Dr. Patrica Nathan Urea nitrogen/Creatinine [Mass ratio] 20.7 mg/mg Normal [facility] Comment on above: Performed By: #### C JV, HSTROPN #### [facility] [address] [place] [address] Dr. Patrica Nathan TROPONIN, HIGH SENSITIVITYon 09-14-2022 HSTROP 5.8 pg/mL Normal 4.0-76.1 [facility] Comment on above: Result Comment: CUT- OFF POINTS HAVE BEEN ESTABLISHED BASED ON THE FOURTH UNIVERSAL DEFINITIONS OF MYOCARDIAL INFARCTION. THE UPPER REFERENCE LIMIT (URL) OF TROPONIN, DEFINED THE 99TH PERCENTILE OF cTnI DISTRIBUTION IN A REFERENCE POPULATION, HAS BEEN CONFIRMED THE DECISION THRESHOLD FOR [place] DIAGNOSIS. Performed By: #### C MP, HSTROPN #### [facility] [address] [place] [address] Dr. Patrica Nathan XR CHEST 1 Von 09-14-2022 XR CHEST 1 V EXAM: XR CHEST 1 V HISTORY: Near syncope COMPARISON: None. TECHNIQUE: Single view of the chest FINDINGS: Heart size normal. No focal consolidation, pleural effusion, pulmonary congestion or pneumothorax. IMPRESSION: No acute findings. Electronically authenticated by: PASTORA DREW Date: 2022-09-14 10:01 Normal [facility] [place] [facility] Alex 08-27-2022 L ------- Specimen: [id number] Received: 08/27/22 Status: MARIAH Gilmore Num: [id number] Spec Type: Surgical Subm Dr: Maryjane Christensen MD Tissues: A Gastric Biopsy (GASTRIC BX) B Colon Biopsy (ASCENDING POLYP) C Colon Biopsy (SIGMIOD POLYP) Procedures: HE/6, Gross/Micro L4/3, H PYLORI Age/ Patient Sex Location Account Attending Physician Yonatan Patel 77/M [id number] Alek Oliva MD SPEC NUM: [id number] RECD: 08/27/22 STATUS: MARIAH GILMORE NUM: [id number] EVE: 08/27/22- SUBM DR: Maryjane Christensen MD ENTERED: 08/27/[address] [facility] DR: SPEC TYPE: Surgical DEPT: S ORDERED: HE/6, Gross/Micro L4/3, H PYLORI ORDERED: HE/6, Gross/Micro L4/3, H PYLORI Supplemental Report Addendum 1 Entered: 08/28/22 A. Immunohistochemical stain for Helicobacter Pylori is POSITIVE. Addendum Signed (signature on file) Aaliyah Beard MD 08/28/22 7724 Pathological Diagnosis A. Stomach, gastric, biopsy: - Moderate chronic active gastritis. - Positive for Helicobacter pylori like organisms on H E stain. COMMENT: Confirmatory Helicobacter pylori immunohistochemical stain is being performed, an addendum report will be issued on completion. B. Colon, ascending, polypectomy: - Tubular adenoma. Specimen: [id number] Received: 08/27/22 Status: MARAIH [place] Num: [id number] Spec Type: Surgical Subm Dr: Maryjane Christensen MD Tissues: A Gastric Biopsy (GASTRIC BX) B Colon Biopsy (ASCENDING POLYP) C Colon Biopsy (SIGMIOD POLYP) Procedures: /, Gross/Micro L4/3, H PYLORI Patient: Yonatan Patel [id number] (Continued) Specimen: [id number] Received: 08/27/22 (Continued) Pathological Diagnosis (Continued) Signed (signature on file) Aaliyah Beard MD 08/28/22 1236 Specimen: [id number] Received: 08/27/22 Status: MARIAH [place] Num: [id number] Spec Type: Surgical Subm Dr: Maryjane Christensen MD Tissues: A Gastric Biopsy (GASTRIC BX) B Colon Biopsy (ASCENDING POLYP) C Colon Biopsy (SIGMIOD POLYP) Procedures: , Gross/Micro L4/3, H PYLORI Patient: Yonatan Patel [id number] (Continued) Specimen: [id number] Received: 08/27/22 (Continued) Pathological Diagnosis (Continued) C. [...] support the above pathologic diagnosis. CPT Codes 27061?3 Specimen: [id number] Received: 08/27/22 Status: MARIAH [place] Num: [id number] Spec Type: Surgical Subm Dr: Maryjane Christensen MD Tissues: A Gastric Biopsy (GASTRIC BX) B Colon Biopsy (ASCENDING POLYP) C Colon Biopsy (SIGMIOD POLYP) Procedures: HE/6, Gross/Micro L4/3, H PYLORI --------- (more content not included)... Normal [facility] MRI BRAIN WO CONon 2 MRI BRAIN CON EXAMINATION: MRI BRA IN [facility], 07/28/2022 8:18 AM EST HISTORY: Skin [...] by: BERHANE HERNANDEZ Date: 2022-07-29 08:42 Normal [facility] [place] [facility] LIPID PROFILEon 07-28-2022 CHOL-HDL RATIO NORM SEE BELOW Normal [facility] Comment on above: Result Comment: 3.3 - 4.4 LOW RISK 4.4 - 7.1 AVERAGE RISK 7.1 - 11.0 MODERATE RISK >11.0 HIGH RISK Performed By: #### C MP, HSTROPN #### [facility] [address] [address] [address] Patrica Nathan Cholesterol [Mass/Vol] 97 mg/dL Normal <=200 [facility] Comment on above: Performed By: #### C MP, HSTROPN #### [facility] [address] [place] [address] [address] Patrica Nathan Cholesterol in HDL [Mass/Vol] 40 mg/dL Normal 40-60 [facility] Comment on above: Performed By: #### C MP, HSTROPN #### [facility] [address] [address] [address] Patrica Nathan Cholesterol in LDL [Mass/Vol] 31.8 mg/dL Normal [facility] Comment on above: Performed By: #### C MP, HSTROPN #### [facility] [address] [address] [address] Patrica Nathan Cholesterol.total/Chol esterol in HDL [Mass ratio] 2.4 {ratio} Normal [facility] Comment on above: Performed By: #### C MP, HSTROPN #### [facility] [address] [place] [address] Dr. Patrica Nathan HDL NORMAL > or = 60 mg/dl - LO W CARDIOVASCULAR RISK <40 mg/dl - HIGH CARDIOVASCULAR RISK Normal [facility] Comment on above: Performed By: #### C MP, HSTROPN #### [facility] [address] [address] [address] Patrica Nathan LDL CALC NORMAL SEE BELOW Normal [facility] Comment on above: Result Comment: <100 mg/dl OPTIMAL 100 - 129 mg/dl NEAR OR ABOVE OPTIMAL 130 - 159 mg/dl BORDERLINE HIGH 160 - 189 mg/dl HIGH >190 mg/dl VERY HIGH Performed By: #### C MP, HSTROPN #### [facility] [address] [address] [address] Patrica Nathan Triglyceride [Mass/Vol] 126 mg/dL Normal <=150 [facility] Comment on above: Performed By: #### C JV HSTROPN #### [facility] [address] [place] [address] Dr. Patrica Nathan VLDL CALC 25.2 mg/dL Normal [facility] Comment on above: Performed By: #### C JV HSTROPN #### [facility] [address] [place] [address] Dr. Patrica Nathan CBC AUTO DIFFon 07-01-2022 BASO # 0.0 103/ul Normal 0.0-0.1 [facility] [place] [facility] Comment on above: Performed By: #### C BC #### [facility] [address] [place] [address] Dr. Patrica Nathan Basophils/100 WBC (Bld) 0.5 % Normal 0.2-2.0 [facility] Comment on above: Performed By: #### C BC #### [facility] [address] [place] [address] Dr. Patrica Nathan EO # 0.1 103/ul Normal 0.0-0.7 [facility] Comment on above: Performed By: #### C BC #### [facility] [address] [place] [address] Dr. Patrica Nathan Eosinophils/100 WBC (Bld) 2.2 % Normal 0.9-7.0 [facility] [place] [facility] Comment on above: Performed By: #### C BC #### [facility] [address] [place] [address] Dr. Patrica Nathan Erythrocyte distribution width (RBC) [Ratio] 14.3 % Normal 11.0-15.0 [facility] [place] [facility] Comment on above: Performed By: #### C BC #### [facility] [address] [place] [address] Dr. Patrica Nathan Hematocrit (Bld) [Volume fraction] 45.8 % Normal 42.0-54.0 [facility] Comment on above: Performed By: #### C BC #### [facility] [address] [place] [address] Dr. Patrica Nathan Hemoglobin (Bld) [Mass/Vol] 15.1 g/dL Normal 14.0-18.0 [facility] Comment on above: Performed By: #### C BC #### [facility] [address] [place] [address] Dr. Patrica Nathan IG # 0.01 10e3/ul Normal 0.00-0.03 [facility] Comment on above: Performed By: #### C BC #### [facility] [address] [place] [address] Dr. Patrica Nathan IG % 0.2 % Normal 0.0-0.5 [facility] Comment on above: Performed By: #### C BC #### [facility] [address] [place] [address] Dr. Patrica Nathan LYMPH # 1.4 103/ul Normal 1.2-3.8 [facility] Comment on above: Performed By: #### C BC #### [facility] [address] [place] [address] Dr. Patrica Nathan Lymphocytes/100 WBC (Bld) 24.0 % Normal 20.5-60.0 [facility] [place] [facility] Comment on above: Performed By: #### C BC #### [facility] [address] [place] [address] Dr. Patrica Nathan MANUAL DIFF REQ NO Normal [facility] Comment on above: Performed By: #### C BC #### [facility] [address] [place] [address] Dr. Patrica Ntahan MCH (RBC) [Entitic mass] 29.4 pg Normal 25.9-34.0 [facility] Comment on above: Performed By: #### C BC #### [facility] [address] [place] [address] Dr. Patrica Nathan MCHC (RBC) [Mass/Vol] 33.0 g/dL Normal 29.9-35.2 [facility] Comment on above: Performed By: #### C BC #### [facility] [address] [place] [address] Dr. Patrica Nathan MCV (RBC) [Entitic vol] 89.3 fL Normal 80.0-94.0 [facility] Comment on above: Performed By: #### C BC #### [facility] [address] [place] [address] Dr. Patrica Nathan MONO # 0.6 103/ul Normal 0.3-0.8 [facility] Comment on above: Performed By: #### C BC #### [facility] [address] [place] [address] Dr. Patrica Nathan Monocytes/100 WBC (Bld) 10.8 % Normal 1.7-12.0 [facility] Comment on above: Performed By: #### C BC #### [facility] [address] [place] [address] Dr. Patrica Nathan NEUT # 3.7 103/ul Normal 1.4-6.5 [facility] Comment on above: Performed By: #### C BC #### [facility] [address] [place] [address] Dr. Patrica Nathan Neutrophils/100 WBC (Bld) 62.3 % Normal 43.0-75.0 [facility] Comment on above: Performed By: #### C BC #### [facility] [address] [place] [address] Dr. Patrica Nathan Platelet mean volume (Bld) [Entitic vol] 9.7 fL Normal 9.5-13.5 [facility] Comment on above: Performed By: #### C BC #### [facility] [address] [place] [address] Dr. Patrica Nathan PLT 192 103/ul Normal 150-450 [facility] Comment on above: Performed By: #### C BC #### [facility] [address] [place] [address] Dr. Patrica Nathan RBC 5.13 106/ul Normal 4.70-6.10 [facility] Comment on above: Performed By: #### C BC #### [facility] [address] [place] [address] Dr. Patrica Nathan WBC 6.0 103/ul Normal 4.0-11.0 [facility] Comment on above: Performed By: #### C BC #### [facility] [address] [address] [address] CHEST WO CONon [...] EVGENY MCCLAIN Date: 2022-07-01 07:16 Normal [facility] PROF 14(COMP METB)on 07-01- 022 Albumin [Mass/Vol] 4.0 g/dL Normal 3.4-5.0 [facility] Comment on above: Performed By: #### C MACARIO CARIAS #### [facility] [address] [address] [address] Patrica Nathan Albumin/Globulin [Mass ratio] 1.2 {ratio} Normal [facility] Comment on above: Performed By: #### C NATAN CARIASN #### [facility] [address] [address] [address] Patrica Nathan ALP [Catalytic activity/Vol] 80 U/L Normal 46-116 [facility] Comment on above: Performed By: #### C NATAN CARIASN #### [facility] [address] [place] [address] Dr. Patrica Nathan ALT [Catalytic activity/Vol] 30 U/L Normal 16-63 [facility] Comment on above: Performed By: #### C MP, HSTROPN #### [facility] [address] [place] [address] Dr. Patrica Nathan Anion gap [Moles/Vol] 8.5 mmol/L Normal [facility] Comment on above: Performed By: #### C MP, HSTROPN #### [facility] [address] [place] [address] Dr. Patrica Nathan AST [Catalytic activity/Vol] 26 U/L Normal 15-37 [facility] Comment on above: Performed By: #### C JV, HSTROPN #### [facility] [address] [place] [address] Dr. Patrica Nathan Bilirubin [Mass/Vol] 1.4 mg/dL Critically high 0.2-1.0 [facility] Comment on above: Performed By: #### C JV, HSTROPN #### [facility] [address] [place] [address] Dr. Patrica Nathan Calcium [Mass/Vol] 9.8 mg/dL Normal 8.5-10.1 [facility] Comment on above: Performed By: #### C JV, HSTROPN #### [facility] [address] [place] [address] Dr. Patrica Nathan Chloride [Moles/Vol] 104 mmol/L Normal 98-107 [facility] Comment on above: Performed By: #### C MP, HSTROPN #### [facility] [address] [place] [address] Dr. Patrica Nathan CO2 [Moles/Vol] 30.8 mmol/L Normal 21.0-32.0 [facility] Comment on above: Performed By: #### C MP, HSTROPN #### [facility] [address] [place] [address] Dr. Patrica Nathan Creatinine [Mass/Vol] 0.97 mg/dL Normal 0.70-1.30 [facility] Comment on above: Performed By: #### C MP, HSTROPN #### [facility] [address] [address] [address] Patrica Nathan EGFR-AF ARGENTINE >60 Normal >=60 [facility] Comment on above: Performed By: #### C MP, HSTROPN #### [facility] [address] [address] [address] Patrica Nathan EGFR-NON AF ARGENTINE >60 Normal >=60 [facility] Comment on above: Performed By: #### C MP, HSTROPN #### [facility] [address] [address] [address] Patrica Nathan Globulin (S) [Mass/Vol] 3.4 g/dL Normal [facility] Comment on above: Performed By: #### C MP, HSTROPN #### [facility] [address] [address] [address] Patrica Nathan Glucose [Mass/Vol] 110 mg/dL Critically high 74-106 [facility] Comment on above: Performed By: #### C MP, HSTROPN #### [facility] [address] [address] [address] Patrica Nathan Potassium [Moles/Vol] 4.3 mmol/L Normal 3.5-5.1 [facility] Comment on above: Performed By: #### C MP, HSTROPN #### [facility] [address] [address] [address] Patrica Nathan Protein [Mass/Vol] 7.4 g/dL Normal 6.4-8.2 [facility] Comment on above: Performed By: #### C MP, HSTROPN #### [facility] [address] [address] [address] Patrica Nathan Sodium [Moles/Vol] 139 mmol/L Normal 136-145 [facility] Comment on above: Performed By: #### C MP, HSTROPN #### [facility] [address] [address] [address] Patrica Nathan Urea nitrogen [Mass/Vol] 15.0 mg/dL Normal 7.0-18.0 [facility] Comment on above: Performed By: #### C MP, HSTROPN #### [facility] [address] [place] [address] Dr. Patrica Nathan Urea nitrogen/Creatinine [Mass ratio] 15.5 mg/mg Normal [facility] Comment on above: Performed By: #### C MP, HSTROPN #### [facility] [address] [place] [address] Dr. Patrica Nathan PROTIMEon 07-01-2022 INR Coag (PPP) [Relative time] 0.95 {INR} Normal [facility] Comment on above: Performed By: #### P T, PTT #### [facility] [address] [place] [address] Dr. Patrica Nathan INR GUIDELINES SEE BELOW Normal [facility] Comment on above: Result Comment: ODALIS RED INR: 2.0 - 3.0 CONDITIONS NOT LISTED BELOW 2.5 - 3.5 FOR PROSTHETIC HEART VALVE REPLACEMENT 2.5 - 3.5 RECURRENT THROMBOSIS Performed By: #### P T, PTT #### [facility] [address] [place] [address] Dr. Patrica Nathan PT Coag (PPP) [Time] 10.3 s Normal 9.0-11.6 [facility] Comment on above: Performed By: #### P T, PTT #### [facility] [address] [place] [address] Dr. Patrica Nathan PTTon 07-01-2022 aPTT Coag (Bld) [Time] 27.1 s Normal 22.3-36.2 [facility] Comment on above: Performed By: #### C MP, HSTROPN #### [facility] [address] [place] [address] Dr. Patrica Nathan XR CHEST 1 Von [...] by: ANGELY REYNOLDS Date: 2022-07-01 06:33 Normal [facility] CT CHEST WO CONon 06-29-2022 [...] by: BERHANE HERNANDEZ Date: 2022-06-29 16:01 Normal [facility] XR RIBS RT PA Estella 2 [...] pneumothorax is suggested. Electronically authenticated by: FABRICE GARRIDOH Date: 2022-06-29 15:08 Normal [facility] CBC AUTO DIFFon 05-02-2022 BASO # 0.1 103/ul Normal 0.0-0.1 [facility] Comment on above: Performed By: #### C BC #### [facility] [address] [address] [address] Patrica Nathan Basophils/100 WBC (Bld) 0.8 % Normal 0.2-2.0 [facility] Comment on above: Performed By: #### C BC #### [facility] [address] [address] [address] Patrica Nathan EO # 0.1 103/ul Normal 0.0-0.7 [facility] Comment on above: Performed By: #### C BC #### [facility] [address] [address] [address] Patrica Nathan Eosinophils/100 WBC (Bld) 1.7 % Normal 0.9-7.0 [facility] Comment on above: Performed By: #### C BC #### [facility] [address] [address] [address] Patrica Nathan Erythrocyte distribution width (RBC) [Ratio] 14.5 % Normal 11.0-15.0 [facility] Comment on above: Performed By: #### C BC #### [facility] [address] [place] [address] Dr. Patrica Nathan Hematocrit (Bld) [Volume fraction] 45.6 % Normal 42.0-54.0 [facility] Comment on above: Performed By: #### C BC #### [facility] [address] [place] [address] Dr. Patrica Nathan Hemoglobin (Bld) [Mass/Vol] 15.3 g/dL Normal 14.0-18.0 [facility] Comment on above: Performed By: #### C BC #### [facility] [address] [place] [address] Dr. Patrica Nathan IG # 0.02 10e3/ul Normal 0.00-0.03 [facility] Comment on above: Performed By: #### C BC #### [facility] [address] [place] [address] Dr. Patrica Nathan IG % 0.3 % Normal 0.0-0.5 [facility] Comment on above: Performed By: #### C BC #### [facility] [address] [place] [address] Dr. Patrica Nathan LYMPH # 1.6 103/ul Normal 1.2-3.8 [facility] Comment on above: Performed By: #### C BC #### [facility] [address] [place] [address] Dr. Patrica Nathan Lymphocytes/100 WBC (Bld) 27.0 % Normal 20.5-60.0 [facility] Comment on above: Performed By: #### C BC #### [facility] [address] [place] [address] Dr. Patrica Nathan MANUAL DIFF REQ NO Normal [facility] Comment on above: Performed By: #### C BC #### [facility] [address] [place] [address] Dr. Patrica Nathan MCH (RBC) [Entitic mass] 29.9 pg Normal 25.9-34.0 [facility] Comment on above: Performed By: #### C BC #### [facility] [address] [place] [address] Dr. Patrica Nathan MCHC (RBC) [Mass/Vol] 33.6 g/dL Normal 29.9-35.2 [facility] Comment on above: Performed By: #### C BC #### [facility] [address] [address] [address] Patrica Nathan MCV (RBC) [Entitic vol] 89.1 fL Normal 80.0-94.0 [facility] Comment on above: Performed By: #### C BC #### [facility] [address] [address] [address] Patrica Nathan MONO # 0.6 103/ul Normal 0.3-0.8 [facility] Comment on above: Performed By: #### C BC #### [facility] [address] [address] [address] Patrica Nathan Monocytes/100 WBC (Bld) 9.8 % Normal 1.7-12.0 [facility] Comment on above: Performed By: #### C BC #### [facility] [address] [place] [address] Dr. Patrica Nathan NEUT # 3.6 103/ul Normal 1.4-6.5 [facility] Comment on above: Performed By: #### C BC #### [facility] [address] [place] [address] Dr. Patrica Nathan Neutrophils/100 WBC (Bld) 60.4 % Normal 43.0-75.0 [facility] Comment on above: Performed By: #### C BC #### [facility] [address] [place] [address] Dr. Patrica Nathan Platelet mean volume (Bld) [Entitic vol] 9.3 fL Critically low 9.5-13.5 [facility] Comment on above: Performed By: #### C BC #### [facility] [address] [place] [address] Dr. Patrica Nathan PLT 183 103/ul Normal 150-450 [facility] Comment on above: Performed By: #### C BC #### [facility] [address] [place] [address] Dr. Patrica Nathan RBC 5.12 106/ul Normal 4.70-6.10 [facility] Comment on above: Performed By: #### C BC #### [facility] [address] [place], [place] [address] Dr. Patrica Nathan WBC 6.0 103/ul Normal 4.0-11.0 [facility] Comment on above: Performed By: #### C BC #### [facility] [address] [place] [address] ABD/PELV WO W [...] EVGENY MCCLAIN Date: 2022-05-02 10:56 Normal [facility] PROF 14(COMP METB)on 022 Albumin [Mass/Vol] 4.1 g/dL Normal 3.4-5.0 [facility] Comment on above: Performed By: #### C MP, HSTROPN #### [facility] [address] [address] [address] Patrica Nathan Albumin/Globulin [Mass ratio] 1.4 {ratio} Normal [facility] Comment on above: Performed By: #### C MP, HSTROPN #### [facility] [address] [address] [address] Patrica Nathan ALP [Catalytic activity/Vol] 71 U/L Normal 46-116 [facility] Comment on above: Performed By: #### C MP, HSTROPN #### [facility] [address] [place] [address] Dr. Patrica Nathan ALT [Catalytic activity/Vol] 48 U/L Normal 16-63 [facility] Comment on above: Performed By: #### C MP, HSTROPN #### [facility] [address] [place] [address] Dr. Patrica Nathan Anion gap [Moles/Vol] 8.1 mmol/L Normal [facility] Comment on above: Performed By: #### C MP, HSTROPN #### [facility] [address] [place] [address] Dr. Patrica Nathan AST [Catalytic activity/Vol] 31 U/L Normal 15-37 [facility] Comment on above: Performed By: #### C MP, HSTROPN #### [facility] [address] [place] [address] Dr. Patrica Nathan Bilirubin [Mass/Vol] 1.6 mg/dL Critically high 0.2-1.0 [facility] Comment on above: Performed By: #### C MP, HSTROPN #### [facility] [address] [place] [address] Dr. Patrica Nathan Calcium [Mass/Vol] 9.4 mg/dL Normal 8.5-10.1 [facility] Comment on above: Performed By: #### C MP, HSTROPN #### [facility] [address] [address] [address] Patrica Nathan Chloride [Moles/Vol] 105 mmol/L Normal 98-107 [facility] Comment on above: Performed By: #### C MP, HSTROPN #### [facility] [address] [address] [address] Patrica Nathan CO2 [Moles/Vol] 29.0 mmol/L Normal 21.0-32.0 [facility] Comment on above: Performed By: #### C MP, HSTROPN #### [facility] [address] [address] [address] Patrica Nathan Creatinine [Mass/Vol] 1.01 mg/dL Normal 0.70-1.30 [facility] Comment on above: Performed By: #### C MP, HSTROPN #### [facility] [address] [address] [address] Patrica Nathan EGFR-AF ARGENTINE >60 Normal >=60 [facility] Comment on above: Performed By: #### C MP, HSTROPN #### [facility] [address] [address] [address] Patrica Nathan EGFR-NON AF ARGENTINE >60 Normal >=60 [facility] Comment on above: Performed By: #### C MP, HSTROPN #### [facility] [address] [address] [address] Patrica Nathan Globulin (S) [Mass/Vol] 2.9 g/dL Normal [facility] Comment on above: Performed By: #### C MP, HSTROPN #### [facility] [address] [address] [address] Patrica Nathan Glucose [Mass/Vol] 106 mg/dL Normal 74-106 [facility] Comment on above: Performed By: #### C MP, HSTROPN #### [facility] [address] [address] [address] Patrica Nathan Potassium [Moles/Vol] 4.1 mmol/L Normal 3.5-5.1 [facility] Comment on above: Performed By: #### C MP, HSTROPN #### [facility] [address] [address] [address] Patrica Nathan Protein [Mass/Vol] 7.0 g/dL Normal 6.4-8.2 [facility] Comment on above: Performed By: #### C MP, HSTROPN #### [facility] [address] [place] [address] Dr. Patrica Nathan Sodium [Moles/Vol] 138 mmol/L Normal 136-145 [facility] Comment on above: Performed By: #### C MP, HSTROPN #### [facility] [address] [place] [address] Dr. Patrica Nathan Urea nitrogen [Mass/Vol] 18.0 mg/dL Normal 7.0-18.0 [facility] Comment on above: Performed By: #### C MP, HSTROPN #### [facility] [address] [place] [address] Dr. Patrica Nathan Urea nitrogen/Creatinine [Mass ratio] 17.8 mg/mg Normal [facility] Comment on above: Performed By: #### C JV, HSTROPN #### [facility] [address] [place] [address] Dr. Patrica Nathan TSHon 05-02-2022 TSH 2.409 uIU/mL Normal 0.358-3.74 0 [facility] Comment on above: Performed By: #### T SH #### [facility] [address] [place] [address] Dr. Patrica Nathan XR CHEST 2 Von [...] EVGENY MCCLAIN Date: 2022-05-02 07:44 Normal [facility] Covid-19 PCR (CVDTB)on 01-16 SARS-CoV-2 (COVID-19) RNA MARIANNE+probe Ql (Unsp spec) Not detected Normal NOT DETECTED [facility] Comment on above: Result Comment: This test is not yet approved or cleared by the [place] FDA. When there are no FDA-approved or cleared tests available, and other criteria are met, FDA can make tests available under an emergency access mechanism called an Emergency Use Authorization (EUA). The EUA for this test is supported by the [place] of Health and Human Service's (HHS's) declaration [...] consistent with SARS-CoV-2. Performed By: #### C [facility] #### [facility] [address] [place] [address] Dr. Patrica Nathan Vital Signs Date Time Vital Sign Value Performing Clinician Facility 11-27-2023 08:33-0400 Body height 187.96 cm [facility] [place] 11-27-2023 08:33-0400 Body mass index (BMI) [Ratio] 23.1 kg/m2 [facility] 11-27-2023 08:33-0400 Body weight 81.7 kg [facility] [place] 11-27-2023 08:33-0400 Diastolic blood pressure 61 mm[Hg] [facility] 11-27-2023 08:33-0400 Heart rate 63 /min [facility] [facility] 11-27-2023 08:33-0400 Respiratory rate 12 /min [place] 11-27-2023 08:33-0400 Systolic blood pressure 114 mm[Hg] [facility] 11-06-2023 15:24-0400 Body height 187.96 cm [facility] 11-06-2023 15:24-0400 Body mass index (BMI) [Ratio] 23.1 kg/m2 [facility] 11-06-2023 15:24-0400 Body weight 81.64 kg [facility] 11-06-2023 15:24-0400 Diastolic blood pressure 64 mm[Hg] [facility] 11-06-2023 15:24-0400 Heart rate 65 /min [facility] 11-06-2023 15:24-0400 Respiratory rate 12 /min [place] 11-06-2023 15:24-0400 Systolic blood pressure 134 mm[Hg] [facility] 10-28-2023 11:01-0400 Body height 187.96 cm [facility] 10-28-2023 11:01-0400 Body mass index (BMI) [Ratio] 23.2 kg/m2 [facility] 10-28-2023 11:01-0400 Body weight 82.21 kg [facility] 10-28-2023 11:01-0400 Diastolic blood pressure 77 mm[Hg] [facility] 10-28-2023 11:01-0400 Heart rate 59 /min [facility] 10-28-2023 11:01-0400 Respiratory rate 12 /min [place] 10-28-2023 11:01-0400 Systolic blood pressure 144 mm[Hg] [facility] 09-15-2023 16:00-0500 Body height 187.96 cm Cisco Ball Other [facility] 09-15-2023 16:00-0500 Body mass index (BMI) [Ratio] 23.75 kg/m2 Cisoc Ball Other [facility] [employer] Other 09-15-2023 16:00-0500 Body weight 83.92 kg Cisco Ball Other [facility] [employer] Other 09-15-2023 16:00-0500 Body weight 83.91 kg [facility] 09-15-2023 16:00-0500 Diastolic blood pressure 73 mm[Hg] Cisco Ball Other [facility] 09-15-2023 16:00-0500 Respiratory rate 12 /min Cisco Ball Other [facility] [employer] Other 09-15-2023 16:00-0500 Systolic blood pressure 158 mm[Hg] Cisco Ball Other [facility] 08-28-2023 10:00-0500 Body height 187.96 cm Cisco Ball Other [facility] 08-28-2023 10:00-0500 Body mass index (BMI) [Ratio] 23.42 kg/m2 Cisco Ball Other [facility] [employer] Other 08-28-2023 10:00-0500 Body weight 82.74 kg Cisco Ball Other [facility] [employer] Other 08-28-2023 10:00-0500 Body weight 82.73 kg [facility] 08-28-2023 10:00-0500 Diastolic blood pressure 66 mm[Hg] Cisco Ball Other [facility] 08-28-2023 10:00-0500 Respiratory rate 12 /min Cisco Ball Other [facility] [employer] Other 08-28-2023 10:00-0500 Systolic blood pressure 117 mm[Hg] Cisco Ball Other [facility] 07-28-2023 13:13-0500 Blood Pressure Location Angely MCCORMICKL [facility] 07-28-2023 13:13-0500 Diastolic blood pressure 72 mm[Hg] Angely MCCORMICKL [facility] [place] 07-28-2023 13:13-0500 Heart rate 72 /min Angely OCAMPO [facility] 07-28-2023 13:13-0500 Respiratory rate 16 /min Angely MCCORMICKL [facility] 07-28-2023 13:13-0500 Systolic blood pressure 118 mm[Hg] Angely NILL [facility] [place] 07-01-2023 10:15-0500 Body height 187.96 cm Cisco Ball Other [employer] Other 07-01-2023 10:15-0500 Body mass index (BMI) [Ratio] 23.13 kg/m2 Cisco Ball Other [employer] Other 07-01-2023 10:15-0500 Body weight 81.74 kg Cisco Ball Other [employer] Other 07-01-2023 10:15-0500 Diastolic blood pressure 70 mm[Hg] Cisco Ball Other [employer] Other 07-01-2023 10:15-0500 Respiratory rate 12 /min Cisco Ball Other [employer] Other 07-01-2023 10:15-0500 Systolic blood pressure 135 mm[Hg] Cisco Ball Other [employer] Other 06-20-2023 02:33-0400 Diastolic blood pressure 74 mm[Hg] DO Cisco Ball Work Phone: [facility] 06-20-2023 02:33-0400 Heart rate 78 /min DO Cisco Ball Work Phone: [facility] 06-20-2023 02:33-0400 Respiratory rate 16 /min DO Cisco Ball Work Phone: [facility] 06-20-2023 02:33-0400 SaO2% (BldA) [Mass fraction] 96 % DO Cisco Ball Work Phone: [facility] 06-20-2023 02:33-0400 Systolic blood pressure 158 mm[Hg] DO Cisco Ball Work Phone: [facility] 06-19-2023 20:47-0400 Body height 187.96 cm DO Cisco Ball Work Phone: [facility] 06-19-2023 20:47-0400 Body temperature 97.9 [degF] DO Cisco Ball Work Phone: [facility] 06-19-2023 20:47-0400 Body weight 80.3 kg DO Cisco Ball Work Phone: [facility] 06-17-2023 15:45-0400 Body height 187.96 cm Cisco Ball Other [facility] [employer] Other 06-17-2023 15:45-0400 Body mass index (BMI) [Ratio] 23.65 kg/m2 Cisco Ball Other [employer] Other 06-17-2023 15:45-0400 Body temperature 97.3 [degF] Cisco Ball Other [employer] Other 06-17-2023 15:45-0400 Body weight 83.55 kg Cisco Ball Other [employer] Other 06-17-2023 15:45-0400 Diastolic blood pressure 57 mm[Hg] Cisco Ball Other [employer] Other 06-17-2023 15:45-0400 Respiratory rate 12 /min Cisco Ball Other [employer] Other 06-17-2023 15:45-0400 Systolic blood pressure 128 mm[Hg] Cisco Ball Other [employer] Other 05-20-2023 08:45-0400 Body height 187.96 cm Cisco Ball Other [employer] Other 05-20-2023 08:45-0400 Body mass index (BMI) [Ratio] 23.62 kg/m2 Cisco Ball Other [employer] Other 05-20-2023 08:45-0400 Body weight 83.46 kg Cisco Ball Other [employer] Other 05-20-2023 08:45-0400 Diastolic blood pressure 82 mm[Hg] Cisco Ball Other [employer] Other 05-20-2023 08:45-0400 Respiratory rate 12 /min Cicso Ball Other [employer] Other 05-20-2023 08:45-0400 Systolic blood pressure 121 mm[Hg] Cisco Ball Other [employer] Other 04-21-2023 11:30-0400 Body height 187.96 cm Cisco Ball Other [employer] Other 04-21-2023 11:30-0400 Body mass index (BMI) [Ratio] 23.34 kg/m2 Cisco Ball Other [employer] Other 04-21-2023 11:30-0400 Body weight 82.46 kg Cisco Ball Other [employer] Other 04-21-2023 11:30-0400 Diastolic blood pressure 65 mm[Hg] Cisco Ball Other [employer] Other 04-21-2023 11:30-0400 Respiratory rate 12 /min Cisco Ball Other [employer] Other 04-21-2023 11:30-0400 Systolic blood pressure 165 mm[Hg] Cisco Ball Other [employer] Other 03-01-2023 08:00-0400 Diastolic blood pressure 82 mm[Hg] DO Cisco Ball Work Phone: [facility] 03-01-2023 08:00-0400 Heart rate 62 /min DO Cisco Ball Work Phone: [facility] 03-01-2023 08:00-0400 Respiratory rate 16 /min DO Cisco Ball Work Phone: [facility] 03-01-2023 08:00-0400 SaO2% (BldA) [Mass fraction] 96 % DO Cisco Ball Work Phone: [facility] 03-01-2023 08:00-0400 Systolic blood pressure 146 mm[Hg] DO Cisco Ball Work Phone: [facility] 03-01-2023 06:58-0400 Body height 187.96 cm DO Cisco Ball Work Phone: [facility] 03-01-2023 06:58-0400 Body weight 84.8 kg DO Cisco Ball Work Phone: [facility] 02-24-2023 08:30-0400 Body height 187.96 cm Cisco Ball Other [facility] [employer] Other 02-24-2023 08:30-0400 Body mass index (BMI) [Ratio] 24.21 kg/m2 Cisco Ball Other [employer] Other 02-24-2023 08:30-0400 Body weight 85.55 kg Cisco Ball Other [facility] [employer] Other 02-24-2023 08:30-0400 Diastolic blood pressure 67 mm[Hg] Cisco Ball Other [facility] [employer] Other 02-24-2023 08:30-0400 Respiratory rate 12 /min Cisco Ball Other [employer] Other 02-24-2023 08:30-0400 Systolic blood pressure 112 mm[Hg] Cisco Ball Other [employer] Other 11-21-2022 11:45-0400 Body height 187.96 cm Cisco Ball Other [employer] Other 11-21-2022 11:45-0400 Body mass index (BMI) [Ratio] 24.98 kg/m2 Cisco Ball Other [employer] Other 11-21-2022 11:45-0400 Body weight 88.27 kg Cisco Ball Other [employer] Other 11-21-2022 11:45-0400 Diastolic blood pressure 73 mm[Hg] Cisco Ball Other [employer] Other 11-21-2022 11:45-0400 Respiratory rate 12 /min Cisco Ball Other [employer] Other 11-21-2022 11:45-0400 Systolic blood pressure 147 mm[Hg] Cisco Ball Other [employer] Other 10-22-2022 08:30-0500 Body height 187.96 cm Cisco Ball Other [employer] Other 10-22-2022 08:30-0500 Body mass index (BMI) [Ratio] 24.73 kg/m2 Cisco Ball Other [employer] Other 10-22-2022 08:30-0500 Body weight 87.36 kg Cisco Ball Other [employer] Other 10-22-2022 08:30-0500 Diastolic blood pressure 64 mm[Hg] Cisco Ball Other [employer] Other 10-22-2022 08:30-0500 Respiratory rate 12 /min Cisoc Ball Other [employer] Other 10-22-2022 08:30-0500 Systolic blood pressure 118 mm[Hg] Cisco Ball Other [employer] Other 10-07-2022 09:45-0500 Body height 187.96 cm Cisco Ball Other [employer] Other 10-07-2022 09:45-0500 Body mass index (BMI) [Ratio] 24.31 kg/m2 Cisco Ball Other [employer] Other 10-07-2022 09:45-0500 Body weight 85.91 kg Cisco Ball Other [employer] Other 10-07-2022 09:45-0500 Diastolic blood pressure 70 mm[Hg] Cisco Ball Other [employer] Other 10-07-2022 09:45-0500 Respiratory rate 12 /min Cisco Ball Other [employer] Other 10-07-2022 09:45-0500 Systolic blood pressure 122 mm[Hg] Cisco Ball Other [employer] Other 08-27-2022 10:48-0500 Diastolic blood pressure 82 mm[Hg] DO Cisco Ball Work Phone: [facility] 08-27-2022 10:48-0500 Heart rate 64 /min DO Cisco Ball Work Phone: [facility] 08-27-2022 10:48-0500 Respiratory rate 16 /min DO Cisco Ball Work Phone: [facility] 08-27-2022 10:48-0500 SaO2% (BldA) [Mass fraction] 96 % DO Cisco Ball Work Phone: [facility] 08-27-2022 10:48-0500 Systolic blood pressure 146 mm[Hg] DO Cisco Ball Work Phone: [facility] 08-27-2022 09:01-0500 Body height 187.96 cm DO Cisco Ball Work Phone: [facility] 08-27-2022 09:01-0500 Body temperature 97.8 [degF] DO Cisco Ball Work Phone: [facility] 08-27-2022 09:01-0500 Body weight 86.63 kg DO Cisco Ball Work Phone: [facility] Encounters Encounter Date Encounter Type Care Provider Facility Start: 01-08-2024 End: 01-08-2024 ambulatory MIGUEL ANGEL SLAUGHTER Not Available Start: 12-14-2023 End: 12-14-2023 ambulatory [facility] Start: 11-27-2023 End: 11-27-2023 ambulatory [facility] Work Phone: Start: 11-27-2023 End: 11-27-2023 Patient encounter procedure [facility] Phys[facility] [place] [facility] Work Phone: Start: 11-16-2023 Non-patient / Non-visit [facility] Physician [facility] Work Phone: Start: 11-06-2023 End: 11-06-2023 ambulatory [facility] Work Phone: Start: 11-06-2023 End: 11-06-2023 Patient encounter procedure [facility] Phys[facility] [place] [facility] Work Phone: Start: 10-28-2023 End: 10-28-2023 Patient encounter procedure [facility] Physician [place] [facility] Work Phone: Start: 10-05-2023 Non-patient / Non-visit [facility] Physician [facility] Work Phone: Start: 09-21-2023 End: 09-21-2023 ambulatory Cisco Ball Other [employer] Other Start: 09-21-2023 Telephone encounter Cisco Nicholson [facility] Start: 09-16-2023 End: 09-16-2023 ambulatory Cisco Nicholson Other [employer] Other Start: 09-16-2023 Telephone encounter Cisco Nicholson [facility] Start: 09-15-2023 End: 09-15-2023 ambulatory Cisco Nicholson Other [employer] Other Start: 09-15-2023 Office outpatient vi sit 15 minutes Cisco Nicholson [facility] Start: 09-15-2023 End: 09-15-2023 Patient encounter procedure [facility]- Start: 09-04-2023 End: 09-04-2023 ambulatory MIGUEL ANGEL SLAUGHTER Not Available Start: 09-02-2023 End: 09-02-2023 Patient encounter procedure Angely Garcia NILSalvador [facility] Nill/Said [place] Start: 08-30-2023 End: 08-30-2023 ambulatory Cisco Nicholson Other [employer] Other Start: 08-30-2023 Telephone encounter Cisco HANNA [facility] Start: 08-28-2023 End: 08-28-2023 ambulatory Cisco Nicholson Other [employer] Other Start: 08-28-2023 Patient encounter procedure Cisco Nicholson [facility] Start: 08-28-2023 Telephone encounter Cisco [facility]ANNA [facility] Start: 08-28-2023 End: 08-28-2023 Patient encounter procedure [facility] Work Phone: Start: 08-26-2023 ambulatory Angely OCAMPO Facility :[facility] [place] Start: 08-26-2023 End: 08-26-2023 Patient encounter procedure Angely R NILL General Surgery Nill/Said [place] Start: 08-24-2023 End: 08-24-2023 ambulatory Cisco Nicholson Other [employer] Other Start: 08-24-2023 Telephone encounter [facility] Start: 08-23-2023 End: 08-23-2023 ambulatory Cisco Nicholson Other [employer] Other Start: 08-23-2023 Telephone encounter Cisco Nicholson [facility] Start: 07-28-2023 End: 07-29-2023 ambulatory Angely R NILL Facility:[facility] Start: 07-28-2023 End: 07-28-2023 Patient encounter procedure Angely R NILL General Surgery Nill/Said [place] Start: 07-01-2023 End: 07-01-2023 ambulatory Cisco Nicholson Other [employer] Other Start: 07-01-2023 Transitional care manage srvc 14 day discharge [facility] Start: 06-26-2023 ambulatory Angely NILL Facility:[facility] Start: 06-24-2023 End: 06-24-2023 ambulatory Cisco Nicholson Other [employer] Other Start: 06-24-2023 Telephone encounter [facility] Start: 06-20-2023 End: 06-22-2023 Evaluation and management of inpatient [place] Facility:[facility] Start: 06-20-2023 Evaluation and management of inpatient DO Cisco Nicholson Work Phone: [facility] Work Phone: Start: 06-20-2023 observation encounter DO Shaji Nicholson Work Phone: [facility] Work Phone: Start: 06-19-2023 End: 06-19-2023 ambulatory Cisco Ball Other [employer] Other Start: 06-19-2023 Telephone encounter Cisco Ball [facility] Start: 06-18-2023 End: 06-18-2023 ambulatory Cisco Ball Other [employer] Other Start: 06-18-2023 Telephone encounter Cisco Ball [facility] Start: 06-17-2023 End: 06-17-2023 ambulatory Cisco Ball Other [employer] Other Start: 06-17-2023 Office outpatient vi sit 15 minutes Cisco Ball [facility] Start: 06-17-2023 Telephone encounter Cisco Ball [facility] Start: 06-02-2023 End: 06-02-2023 ambulatory Cisco Ball Other [employer] Other Start: 06-02-2023 Telephone encounter Cisco Ball [facility] Start: 05-20-2023 End: 05-20-2023 ambulatory Cisco Ball Other [employer] Other Start: 05-20-2023 Office outpatient vi sit 25 minutes Cisco Ball [facility] Start: 05-11-2023 End: 05-11-2023 ambulatory Cisco Ball Other [employer] Other Start: 05-11-2023 Telephone encounter Cisco Ball [facility] Start: 04-27-2023 End: 04-27-2023 ambulatory Cisco Ball Other [employer] Other Start: 04-27-2023 Telephone encounter Cisco Ball [facility] Start: 04-23-2023 End: 04-23-2023 ambulatory Cisco Ball Other [employer] Other Start: 04-23-2023 Telephone encounter Cisco Ball [facility] Start: 04-21-2023 End: 04-21-2023 ambulatory Cisco Nicholson Other [employer] Other Start: 04-21-2023 Office outpatient vi sit 25 minutes Cisco Nicholson [facility] Start: 03-16-2023 End: 03-16-2023 ambulatory Cisco Abbe Other [employer] Other Start: 03-16-2023 Telephone encounter Cisco Nicholson [facility] Start: 03-04-2023 Telephone encounter Cisco Nicholson [facility] Start: 03-04-2023 End: 03-04-[address] Cisco Nicholson [employer] Other Start: 03-03-2023 End: 03-03-2023 ambulatory Cisco Nicholson Other [employer] Other Start: 03-03-2023 Telephone encounter Cisco [facility]be [facility] Start: 03-01-2023 End: 03-02-[address] Cisco Nicholson Facility:[id number] Start: 03-01-2023 Evaluation and management of inpatient DO Cisco Ball Work Phone: [facility] Work Phone: Start: 03-01-2023 observation encounter DO Shaji min Ball Work Phone: [facility] Work Phone: Start: 02-24-2023 End: 02-24-2023 ambulatory Cisco Nicholson Other [employer] Other Start: 02-24-2023 Office outpatient vi sit 25 minutes Cisco Ball [facility] Start: 01-20-2023 End: 01-20-2023 ambulatory Cisco Ball Other [employer] Other Start: 01-20-2023 Telephone encounter Cisco Abbe [facility] Start: 11-21-2022 End: 11-21-2022 ambulatory Cisco Ball Other [employer] Other Start: 11-21-2022 Office outpatient vi sit 15 minutes Cisco Nicholson [facility] Start: 10-22-2022 End: 10-22-2022 ambulatory Cisco Nicholson Other [employer] Other Start: 10-22-2022 Office outpatient vi sit 25 minutes Cisco Nicholson [facility] Start: 10-12-2022 End: 10-12-2022 ambulatory Cisco Nicholson Facility:[facility] Start: 10-12-2022 End: 10-12-2022 ambulatory DO Cisco Nicholson Work Phone: [facility] Work Phone: Start: 10-12-2022 End: 10-12-2022 Patient encounter procedure DO Cisco Nicholson Work Phone: [facility] [place] Work Phone: Start: 10-07-2022 End: 10-07-2022 ambulatory Cisco Nicholson Other [employer] Other Start: 10-07-2022 Office outpatient vi sit 15 minutes Cisco Nicholson [facility] Start: 09-14-2022 End: 09-14-[address] CISCO NICHOLSON Facility: Start: 09-08-2022 End: 09-08-2022 ambulatory Imad Asaad Other [employer] Other Start: 09-08-2022 Telephone encounter Imad Asaad [facility] Start: 09-05-2022 End: 09-05-2022 ambulatory Cisco Nicholson Other [employer] Other Start: 09-05-2022 Telephone encounter Cisco Nicholson [facility] Start: 09-03-2022 End: 09-03-2022 ambulatory Imad Asaad Other [employer] Other Start: 09-03-2022 Telephone encounter Imad Asaad [facility] Start: 09-01-2022 End: 09-01-2022 ambulatory Imad Asaad Other [employer] Other Start: 09-01-2022 Telephone encounter Imad Asaad [facility] Start: 08-27-2022 Telephone encounter [facility] Start: 08-27-2022 End: 08-27-2022 ambulatory Cisco Nicholson Facility:[facility] Start: 08-27-2022 End: 08-27-2022 Admission to same day surgery center DO Cisco Nicholson Work Phone: [facility] Work Phone: Start: 08-27-2022 End: 08-27-2022 ambulatory DO Cisco Nicholson Work Phone: [facility] Work Phone: Start: 08-22-2022 End: 08-22-2022 ambulatory Imad Asaad Other [employer] Other Start: 08-22-2022 Telephone encounter Imad Asaad [facility] Start: 08-20-2022 End: 08-20-2022 ambulatory Cisco Nicholson Other [employer] Other Start: 08-20-2022 Telephone encounter Cisco Nicholson [facility] Start: 08-19-2022 End: 08-19-2022 ambulatory Cisco Nicholson Other [employer] Other Start: 08-19-2022 Telephone encounter Cisco Nicholson [...] Work Phone: Start: 08-27-2022 Esophagogastroduodenoscopy DO Cisco Law salazar Work Phone: Start: 08-27-2022 Colonoscopy Angely OCAMPO Start: 08-27-2022 Esophagogastroduodenoscopy Angely OCAMPO Start: 07-28-2022 PSA screening MIGUEL ANGEL SLAUGHTER Comment on above: Performed By: #### PSASC #### [facility] [address] [place] [address] Dr. Patrica Nathan Cardiac catheterization Renato OCAMPO History of operative procedure on shoulder Angely OCAMPO Comment on above: x3 Repair of right inguinal hernia Angely OCAMPO Plan of Treatment Date Care Activity Detail Author Start: 06-20-2023 Plain chest X-ray XR chest 2V* [facility] Start: 06-20-2023 XR Chest 2 Views [facility] Start: 06-20-2023 Hospital admission [facility] Start: 06-20-2023 [facility] Start: 06-20-2023 CT of head without contrast CT head/brain wo con [facility] Start: 06-20-2023 CT Unspecified body region WO contrast [facility] Start: 03-01-2023 Physical therapy procedure [facility] Start: 03-01-2023 Referral to occupati onal therapist [facility] Start: 03-01-2023 Referral to neurologist [facility] Start: 03-01-2023 Hospital admission [facility] Start: 03-01-2023 [facility] Start: 08-27-2022 [facility] Helicobacter pylori Ag [Presence] in Stool by Immunoassay [facility] Patient Education Colon Polypectomy (DC) [facility] Work Phone: Immunizations Immunization Date Immunization Notes Care Provider Fa cility 07-01-2023 influenza virus vaccine, unspecified formulation [facility] 07-01-2023 influenza, high dose seasonal, preservative-free Cisco Nicholson Other [employer] Other 07-04-2022 SARS-CoV-2 (COVID-19 ) [id number] Angely OCAMPO [facility] 06-05-2022 influenza virus vaccine, split virus (incl. purified surface antigen) Cisco Nicholson Other [employer] Other 06-05-2022 influenza virus vaccine, unspecified formulation [facility] 03-28-2022 diphtheria, tetanus toxoids and acellular pertussis vaccine, unspecified formulation Cisco Nicholson Other [facility] 11-16-2021 SARS-CoV-2 mRNA ([id number] ose) vaccine Angely OCAMPO [facility] 06-28-2021 influenza virus vaccine, split virus (incl. purified surface antigen) Cisco Nicholson Other [employer] Other 06-28-2021 influenza virus vaccine, unspecified formulation [facility] 05-18-2021 SARS-CoV-2 (COVID-19 ) mRNA BNT-162b2 vax Angely OCAMPO [facility] Comment on above: Result Comment: 2022: [id number] 10-06-2020 SARS-CoV-2 (COVID-19 ) mRNA BNT-162b2 tylor OCAMPO [facility] Comment on above: Result Comment: 2022: [id number] 09-15-2020 COVID-19 Vaccine Pfizer - Documentation Purposes Only Cisco Nicholson Other [facility] Comment on above: Result Comment: 2022: [id number] 05-30-2020 influenza virus vaccine, split virus (incl. purified surface antigen) Cisco Nicholson Other [employer] Other 05-30-2020 influenza virus vaccine, unspecified formulation [facility] 06-01-2019 influenza virus vaccine, split virus (incl. purified surface antigen) Cisco Nicholson Other [facility] [employer] Other 06-01-2019 influenza virus vaccine, unspecified formulation [facility] 06-09-2018 influenza virus vaccine, split virus (incl. purified surface antigen) Cisco Nicholson Other [facility] [employer] Other 06-09-2018 influenza virus vaccine, unspecified formulation [facility] 05-14-2017 tetanus and diphther ia toxoids, adsorbed, preservative free, for adult use (5 Lf of tetanus toxoid and 2 Lf of diphtheria toxoid) Cisco Nicholson Other [facility] 05-26-2016 influenza virus vaccine, split virus (incl. purified surface antigen) Cisco Nicholson Other [employer] Other 05-26-2016 influenza virus vaccine, unspecified formulation [facility] 11-27-2015 pneumococcal conjuga te vaccine, 13 valent Cisco Nicholson Other [facility] 05-30-2015 influenza virus vaccine, split virus (incl. purified surface antigen) Cisco Nicholson Other [employer] Other 05-30-2015 influenza virus vaccine, unspecified formulation [facility] 06-14-2013 pneumococcal polysaccharide vaccine, 23 valent Cisco Nicholson Other [facility] 05-23-2013 tetanus and diphther ia toxoids, adsorbed, preservative free, for adult use (5 Lf of tetanus toxoid and 2 Lf of diphtheria toxoid) Cisco Nicholson Other [facility] NEGATED: Highlighted row has not occurred!07-28-2023 influenza virus vaccine, unspecified formulation Angely OCAMPO [facility] [place] Payers Date Payer Category Payer Self-pay 1961 Medicare [id number] 1961 Unknown [id number] 1945 Unknown [id number] 2.16.84 [id number] 1943 Unknown [id number] 2.16.84 [id number] 1943 Unknown [id number] 2.16.84 [id number] 1943 Unknown [id number] 2.16.84 [id number] 1943 Unknown [id number] 2.16.84 [id number] 1943 Unknown [id number] 2.16.84 [id number] 1943 Unknown [id number] 2.16.84 [id number] 1945 Unknown [id number] 2.16.84 0.1.440242.3.579.2.593 1945 Unknown [id number] 2.16. 840.1.882436.3.579.2.356 1945 Unknown [id number] 2.16.8 40.1.531611.3.579.2.727 1945 Unknown [id number] 2.16.8 40.1.654147.3.579.2.727 1945 Unknown [id number] 2.16.84 0.1.927256.3.579.2.1259 1945 Unknown [id number] 2.16.84 0.1.055583.3.579.2.1259 Unknown [id number] 2.16.8 40.1.930408.3.579.2.531 Unknown [id number] 2.16.8 40.1.392639.3.579.2.531 Unknown [id number] 2.16.8 40.1.269293.3.579.2.531 Unknown [id number] 2.16.8 40.1.947084.3.579.2.531 Social History Date Type Detail Facility Tobacco smoking stat [facility] Unknown if ever smoked [facility] Work Phone: Start: 1945 Sex Assigned At Male F [facility] Sex Assigned At [facility] Start: 03-01-2023 End: 06-20-2023 Tobacco smoking status NHIS Ex-smoker (finding) [facility] Tobacco smoking status Never Gener al Surgery [place] Goals Date Patient Goal Desired Activity /State Functional Status Date Assessment Result Facility 07-28-2023 Functional Status N/A [facility] Clinical Notes 03-20-2022 to 12-14-2023 Note Date & Type Note Facility 12-14-2023 Note [facility] Note Chief Complaint: Patient here for 1 year follow up CAD, hypertension, and hyperlipidemia. Had echo in February 2023. He is down 16# from visit last November. He says Dr. Nicholson wanted him to stop metoprolol due to hypotension. He told Dr. Nicholson is was seeing Dr. Chavez today and would discuss it with him. HPI: Mr. Patel presents to clinic for routine follow-up. 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 He has tinnitus and fatigue. His blood pressure had been low and Dr. Nichloson wanted to stop metoprolol. He was also diagnosed with significant anxiety. Cardiology ROS: Review of Systems Constitutional: Positive for weight loss (16# since November 2022). HENT: Positive for hearing loss. Cardiovascular: Positive for leg swelling (end of day, resolves by morning). All other systems reviewed and are negative. Past Medical History He has a past medical history of Coronary artery disease, Hyperlipidemia, and Hypertension. Surgical History He has a past surgical history that includes Cardiac catheterization; Shoulder surgery; and Carpal tunnel release. Social History He reports that he has quit smoking. His smoking use included cigarettes. He has never used smokeless tobacco. He reports current alcohol use. No history on file for drug use. Family History Family History Problem Relation Name Age of Onset Heart attack Father Heart attack Brother Allergies Patient has no known allergies. Medications Current Outpatient Medications: aspirin 81 mg chewable tablet, Chew 81 mg every other day., Disp: , Rfl: atorvastatin (Lipitor) 80 mg tablet, TAKE 1 TABLET BY MOUTH ONCE DAILY, Disp: 90 tablet, Rfl: 3 busPIRone (Buspar) 15 mg tablet, buspirone 15 mg tablet, Disp: , Rfl: gabapentin (Neurontin) 300 mg capsule, Take 300 mg by mouth every 6 (six) hours., Disp: , Rfl: metoprolol tartrate (Lopressor) 25 mg tablet, TAKE ONE-HALF TABLET BY MOUTH TWICE DAILY, Disp: 90 tablet, Rfl: 3 temazepam (Restoril) 15 mg capsule, , Disp: , Rfl: Last Recorded Vitals BP 128/68 (BP Location: Right arm, Patient Position: Sitting) Pulse 58 Ht 1.88 m (6' 2 ) Wt 81.6 kg (180 lb) SpO2 99% BMI 23.11 kg/m??? Physical Examination: GENERAL: alert and oriented x3, [...] extremities. PSYCH: appropriate mood, affect, and judgement. Labs 07/17/2021 CBC-unremarkable BMP-creatinine 0.92, BUN 18, [...] 5. Follow up with me in the [facility] in 1 to 2 months. 6. Follow up with Dr. Nicholson as scheduled; would recommend a neurological evaluation given his presenting symptoms. ECHO 11/10/2016: preserved LV EF, normal RV size and function, no significant valvular disease NM stress test 10/17/2016: negative for ischemia Echocardiogram 2022: Global left ventricular systolic function is normal; EF is 60 to 65%. Mild left ventricular hypertrophy. No significant valvular abnormalities. 1. Essential hypertension - Currently well controlled Reviewed labs from December of last year and renal function normal I10: Essential (primary) hypertension 2. Mixed hyperlipidemia - Continue statin, reviewed labs from 12/25/2018 Total cholesterol 104 HDL 31 LDL 46 triglycerides 32, liver function with within normal E78.2: Mixed hyperlipidemia 3. Coronary arteriosclerosis in [place] artery - Continue medications as prescribed including aspirin, Lipitor, metoprolol I25.10: Atherosclerotic heart disease of [place] coronary artery without angina pectoris metoprolol tartrate 25 mg tablet - TAKE ONE-HALF (more content not included)... [facility] 09-16-2023 Evaluation note Encounter Date Diagnosis Assessment Notes Aug, GREYSON (generalized anxiety disorder) (ICD-10 - F41.1) [facility] Other 01-30-2024 Evaluation note* Encounter Date Diagnosis [...] treatment Referred and scheduled w/ Neuropsychiatric testing [facility] Other 01-12-2024 Evaluation note* Encounter Date Diagnosis [...] Denies dysuria or hematuria PSA next OV [facility] Other [id number] NoteChief Complaint consultation for left inguinal hernia HPI [...] Use:. Cigarettes, 2per day. (more content not included)...[facility]Result Comment: Electronically Signed By: TOO TEJADA, Angely Daniels\Date and Time Signed: 07/28/23 20:29 [id number] Evaluation note * Encounter Date Diagnosis Assessment [...] Fall precuations. Discussed tapering dose of Gabapentin [facility] Other 11-02-2023 Evaluation note* Encounter Date Diagnosis Assessment Notes Treatment Notes Treatment Clinical Notes Jun, COVID-19 (ICD-10 - U07.1) [facility] Other 11-01-2023 Evaluation note* Encounter Date Diagnosis [...] or drinking prior to bedtime. Weight loss. [facility] Other 10-04-2023 Evaluation note* Encounter Date Diagnosis [...] now. Recheck in month, consider Neurology referral [facility] Other 09-25-2023 Evaluation note* Encounter Date Diagnosis Assessment Notes Treatment Notes Treatment Clinical Notes Apr, COVID (ICD-10 - U07.1) [facility] Other 09-07-2023 Evaluation note* Encounter Date Diagnosis Assessment Notes Treatment Notes Treatment Clinical Notes Apr, Right lower quadrant abdominal pain (ICD-10 - R10.31) [facility] Other 09-05-2023 Evaluation note* Encounter Date Diagnosis [...] a trip to ER for IV hydration. [facility] Other 07-31-2023 Evaluation note* Encounter Date Diagnosis Assessment Notes Treatment Notes Treatment Clinical Notes Feb, Primary insomnia (ICD-10 - F51.01) [facility] Other 07-18-2023 Evaluation note* Encounter Date Diagnosis Assessment Notes Treatment Notes Treatment Clinical Notes Feb, Peripheral polyneuropathy (ICD-10 - G62.9) [facility] Other 07-11-2023 Evaluation note* Encounter Date Diagnosis [...] Healtlhy diet, exercise and proper sleep routine [facility] Other 06-06-2023 Evaluation note* Encounter Date Diagnosis Assessment Notes Treatment Notes Treatment Clinical Notes Jan, Peripheral polyneuropathy (ICD-10 - G62.9) [facility] Other 04-07-2023 Evaluation note* Encounter Date Diagnosis Assessment Notes [...] continue exercise to achieve/maintain a normal BMI. [facility] Other 03-08-2023 Evaluation note* Encounter Date Diagnosis [...] in remission (ICD-10 - F17.211) Continue abstinence [facility] Other 02-21-2023 Evaluation note* Encounter Date Diagnosis [...] Fall precautions. Inspect feet daily for cuts. [facility] Other 01-18-2023 Evaluation note* Encounter Date Diagnosis Assessment Notes Treatment Notes Treatment Clinical Notes Aug, Helicobacter pylori (H. pylori) (ICD-10 - A04.8) [facility] Other 01-11-2023 History and physical note Author Maryjane Christensen [facility] August 27, 2022 10:16am Note Date/Time August 27, 2022 1 0:16am [facility] [address] [place] [address] Gastroenterology H&P Signed Patient: Yonatan Patel MR#: [id number] : 1945 Acct:[id number] Age/Sex: 77 / M Adm Date: 3 Loc: Room: Type: [facility] Attending Dr: Alek Oliva MD Copies to: [...] signed by Maryjane Christensen MD> 08/27/22 1016 [facility] Work Phone: [phone] [facility] Evaluation note* Encounter Date Diagnosis Assessment Notes Treatment Notes Treatment Clinical Notes Aug, Primary insomnia (ICD-10 - F51.01) [facility] Other 08-04-2022 NoteHISTORY AND PHYSICAL EXAMINATION Date:03/19/2022 [...] doing so in the near future. 3. [id number] patient was briefed in the office and [...] and go forward with this elective procedure.[facility] [id number] NoteOPERATIVE NOTE OPERATION DATE: 03/20/2022 SURGEON: Miguel [...] ensuring mobility, phacoemulsification was performed in a fjpltnt-afy-ambdtk-type fashion. After all nuclear material had been [...] and after satisfaction could be achieved, the middle school resource teacher and the gonioprism were removed from the [...] up the following day for postoperative care.[facility] HospitalConsu note Author Berhane Trammell [facility] March 01, 2023 2:24pm Note Date/Time March 01, 2023 2:24 pm [facility] [address] [place] [address] Neurology Consult Note Signed Patient: Yonatan Patel MR#: [id number] : 1945 Acct:[id number] Age/Sex: 77 / M Adm Date: 3 Loc: Room: [address] [place] [address] Type: ADM INOo Attending Dr: Bobo Villagomez MD Copies to: DO Bobo Adler MD Steven Benedict, MD~ HPI Consult Date: 03/01/23 Anesthesia Associate: Berhane Trammell MD Reason for consult: Leg [...] Selena Reid M.D.03/01/2023 9:15 AM Dictation Location: [place] [address] 03/01/23 07:02 IMPRESSION: ATROPHY AND CHRONIC MICROVASCULAR CHANGES. NO DEFINITE ACUTE INTRACRANIAL ABNORMALITY. FOLLOW-UP IS RECOMMENDED, SYMPTOMS WARRANT. COMMENT: Preliminary report was provided at 0730 hours. Impression dictated by: Selena Reid M.D.03/01/2023 8:13 AM Dictation Location: [place] [address] Therapy Recommendations Therapy Recommendations: OT Recommendations OT [...] <Electronically signed by MD Berhane Trammell> 03/01/23 1422 [facility] Work Phone: Discharge summary Author Angely Lee [facility] March 02, 2023 5:49pm Note Date/Time March 02, 2023 5:43 pm [facility] [address] [place] [address] Discharge Summary Signed Patient: Yonatan Patel MR#: [id number] : 1945 Acct:[id number] Age/Sex: 77 / M Adm Date: 3 Loc: Room: [address] [place] [address]: Angely Lee DO Copies to: [...] signed by Angely Lee DO> 03/02/23 1749 [facility] Work Phone: Evaluation + Plan note No data available for this section General Surgery [place] Evaluation + Plan note Future Appointments Appointment Date:09/02/2023 02:40:00 PM Scheduled Provider:Angely OCAMPO MD Location:[facility] Appointment Type: Post Op 15 General Surgery [place] evaluation noteNo assessment information available [facility] Work Phone: evaluation noteNo InformationN[facility] Other evalusketj note* Diagnosis Onset Date Resolution Status Bilateral leg pain acute Numbness of left hand acute [facility] Work Phone: Evaluation note* Diagnosis Onset Date Resolution Status Adverse drug effect acute Altered mental status acute COVID acute Hypertension acute Lab test positive for detection of COVID-19 virus acute Neuropathy acute [facility] Work Phone: Evaluyzgkk note* Diagnosis Onset Date Resolution Status GREYSON (generalized anxiety disorder) acute GERD (gastroesophageal reflux disease) acute Hypercholesteremia acute Hypertension acute Peripheral polyneuropathy ac [place] Primary insomnia acute [facility] Work Phone: Evaluation note* Diagnosis Onset Date Resolution Status GREYSON (generalized anxiety disorder) acute GERD (gastroesophageal reflux disease) acute Hypercholesteremia acute Hypertension acute Peripheral polyneuropathy ac [place] Primary insomnia acute GREYSON (generalized anxiety disorder) acute Hypertension acute Irritable bowel syndrome with constipation acute Acute prostatitis noneactive ASHD (arteriosclerotic heart disease) acute GREYSON (generalized anxiety disorder) acute Hypercholesteremia acute Hypertension acute Irritable bowel syndrome with constipation acute Peripheral polyneuropathy ac [facility] Work Phone: History and physical note Author Bobo Villagomez [facility] March 01, 2023 9:50am Note Date/Time March 01, 2023 9:50 am [facility] [address] [place] [address] Hospitalist H&P Signed Patient: Yonatan Patel MR#: [id number] : 1945 Acct:[id number] Age/Sex: 77 / M Adm Date: 3 Loc: Room: [address] [place] [address] Type: ADM INOo Attending Dr: Bobo Villagomez [...] as mentioned elsewhere in the documentation [facility] Medical History Cataract Hypercholesteremia Hypertension Surgical History [...] % (Auto) 23.7 % (.) 03/01/23 07:06 [place] % (Auto) 8.3 % (.) 03/01/23 07:06 Eos % (Auto) 1.4 % (.) 03/01/23 07:06 Baso % (Auto) 0.7 % (.) 03/01/23 07:06 Nucleat RBC Rel Count 0.3 /100 WBC (0-0.5) 03/01/23 07:06 Neut # (Auto) 3.5 x10E3/uL (1.8-7.7) 03/01/23 07:06 Lymph # (Auto) 1.3 x10E3/uL (1.00-4.8) 03/01/23 07:06 [place] # (Auto) 0.4 x10E3/uL (0.0-0.8) 03/01/23 07:06 [...] pH 7.5 (5.0-9.0) 03/01/23 07:49 Ur Specific [place] 1.014 (1.001-1.030) 03/01/23 07:49 Urine Protein Negative [...] signed by Bobo Villagomez MD> 03/01/23 0950 [facility] Work Phone: Hiswyda general Narrative - Reported* Type Description Date Medical History hypercholesterolemia Medical History hypertension Medical History anxiety Medical History Esophageal reflux Medical History glaucoma Medical History neuropathy Surgical History heart catheterization Surgical History shoulder surgery Surgical History colonoscopy with polyp resectio n 08/27/21 Surgical History EGD 08/27/21 Hospitalization History see above [facility] Other Hisvykk general Narrative - Reported* Type Description Date Medical History hypercholesterolemia Medical History hypertension Medical History anxiety Medical History Esophageal reflux Medical History glaucoma Medical History neuropathy Surgical History heart catheterization Surgical History shoulder surgery Surgical History colonoscopy with polyp resectio n 08/27/22 Surgical History EGD 08/27/22 Hospitalization History see above [facility] Other history general Narrative - Reported* Type Description Date Medical History hypercholesterolemia Medical History hypertension Medical History anxiety Medical History Esophageal reflux Medical History glaucoma Medical History neuropathy Surgical History heart catheterization Surgical History shoulder surgery Surgical History colonoscopy with polyp resectio n 08/27/22 Surgical History EGD 08/27/22 Surgical History Left Inguinal Hernia Repair 1/ 024 Hospitalization History see above [facility] Other Hospital Discharge instructions Additional Instructions DISCHARGE [...] NOT operate machinery such as power tools, [employer], [employer], sewing machines, etc. for 24 hours. - [...] follow up with PCP - Office number [phone]. [facility] Work Phone: Hospital Discharge instructions No data available for this section General Surgery [place] Progress note Author Berhane Trammell [facility] March 02, 2023 3:27pm Note Date/Time March 02, 2023 3:23 pm [facility] [address] [place] [address] Neurology Progress Note Signed Patient: Yonatan Patel MR#: [id number] : 1945 Acct:[id number] Age/Sex: 77 / M Adm Date: 3 Loc: Room: [address] [place] [address] Type: ADM INOo Attending Dr: Angely Lee [...] signed by MD Berhane Trammell> 03/02/23 1527 [facility] Work Phone: Progress note No data available for this section General Surgery [place] Reason for referral (narrative)* Reason Referral for left in direct inguinal hernia Diagnosis 1 Indirect left inguin al hernia (K40.90) Referral Organization [facility] Referring Provider First Name Cisco Referring Provider Last Name Abbe Referring Provider Specialty Internal Me dicine Referred [facility] Referred Provider Angely Ocampo Referred Address [address] [place], [place] Referred Provider Specialty Surgery Referral Priority Urgent General Notes Mr. Patel has a left indirect inguinal hernia w/ intermittent episodes of increased pain, abdominal distention and nausea. He has experienced 3-4 of these episodes in the past 2 weeks, with increased intensity and duration of pain. A recent episode was associated w/ a transient fever and chills. [facility] Other Reason for visit NarrativeERROR/Gastro referral issue [facility] Other Chief Complaint and Reason for Visit [...] disease) Hypercholesteremia Hypertension Peripheral polyneuropathy Primary insomnia Chief Complaint Ear Ringing Amb Documentation 1 month bowel problems 3 month follow up Reason for Visit GREYSON (generalized anx iety disorder) GERD (gastroesophageal reflux disease) Hypercholesteremia Hypertension Peripheral polyneuropathy Primary insomnia GREYSON (generalized anxiety disorder) Hypertension Irritable bowel syndrome with constipation Acute prostatitis ASHD (arteriosclerotic heart disease) GREYSON (generalized anxiety disorder) Hypercholesteremia Hypertension Irritable bowel syndrome with constipation Peripheral polyneuropathy Family History No Family History Records Found [...] member Unknown Not Specified Unknown Advance Directives No Advanced Directives Records [...] Member Role Status Dates Cisco Nicholson DO Attending Provider Active Sta rt: August 28, 2023 End: August 28, 2023 Team Status: Inactive Member Role Status Dates Cisco Nicholson DO Attending Provider Active Sta rt: September 15, 2023 End: September 15, 2023 Team Status: Active Member Role Status Dates Cisco Nicholson DO Primary Care Provider Active Start: October 05, 2023 FAMILIA Hector Attending Provider Active Start : October 05, 2023 Team Status: Inactive Member Role Status Adriana Nicholson DO Primary Care Provide r, Attending Provider Active Start: October 28, 2023 End: October 28, 2023 Team Status: Inactive Member Role Status Dates Cisco Nicholson DO Primary Care Provide r, Attending Provider Active Start: November 06, 2023 End: November 06, 2023 Team Status: Active Member Role Status Dates Cisco Nicholson DO Primary Care Provider Active Alejo Lynn [...] Admit Provider, Attending Provider Active Team Status: Active Member Role Status Dates Cisco Abbe DO Primary Care Provide r, Attending Provider Active Start: November 16, 2023 Team Status: Inactive Member Role Status Dates Cisco Nicholson DO Primary Care Provide r, Attending Provider Active Start: November 27, 2023 End: November 27, 2023 (unrecognized sect ion and content) No Status Records FoundNo Status Records FoundNo Status Records FoundNo Status Records FoundNo Status Records FoundNo Status Records Found INFORMATION SOURCE (unrecogn ized section and content) DATE CREATED AUTHOR 09/16/2022 [facility] DATE CREATED AUTHOR AUTHOR'S ORGANIZ ATION 03/05/2023 [facility] DATE CREATED AUTHOR AUTHOR'S ORGANIZ ATION 06/25/2023 [facility] DATE CREATED AUTHOR AUTHOR'S ORGANIZ ATION 08/25/2023 [facility] DATE CREATED AUTHOR AUTHOR'S ORGANIZ ATION 12/15/2023 [facility] DATE CREATED AUTHOR AUTHOR'S ORGANIZ ATION 01/10/2024 [facility] EPIC REASON FOR VISIT (unrecogniz [...] BE BASED ON THE PRIMARY CLINICAL RECORDS. [facility] [employer] [facility]. provides no warranty or guarantee of the accuracy or completeness of information in this document.
[2024-01-22 12:07] LABS: Prostate Specific Antigen Scrn 1.33 ng/mL (<=4.00)
== END 2024-01-22 09:16 | disposition home or self-care (01) ==
LOC: LAB 09:18
PROVIDERS: PCP Internal Medicine; Visit Provider Internal Medicine
DX: Z12.5 Encounter for screening for malignant neoplasm of prostate (principal)
CPT/HCPCS: 36415; G0103

== ENCOUNTER 2024-03-15 09:40 | Outpatient (OUT) | payer MEDICARE, SELFPAY ==
--- OUTSIDE RECORDS SUMMARY | 2024-03-15 10:00 | XMS_ITS | CCD ---
Author Organization [facility] CliniSyne Care Team Providers Care User Experience Architect Name Role Phone MD Alek Oliva Attending Provider DO Cisco Nicholson Primary Care Provider [phone] MIGUEL ANGEL SLAUGHTER Attending Unavailable ANN-MARIE, MIGUEL ANGEL Admitting Unavailable MIGUEL ANGEL SLAUGHTER Consulting Unavailable ABEB, DR JOYA Primary Care Unavailable ABBE, DR [...] MERCEDES Consulting Unavailable RODOLFO, ANGELY Consulting Unavailable BALL, DR JOYA Primary Care Unavailable VALENTE, DR GUSMAN Attending Unavailable VALENTE, DR GUSMAN Admitting Unavailable VALENTE, DR GUSMAN Consulting Unavailable GELBART, ANGELY Consulting Unavailable ITKIN, PASTORA Consulting Unavailable SONG, DR DAISHA Garcia Attending Unavailable SONG, DR DAISHA Garcia Admitting Unavailable KATHI WILHELM Consulting Unavailable ABBE, DR JOYA Primary Care Unavailable Abbe, Cisco Unavailable Maryjane Christensen Unavailable Stalin Desai Unavailable MD Maryjane Christensen Attending Provider Dr. Cisco Nicholson Primary Care Dr. Cisco Ivey Primary Care DO Cisco Ivey Primary Care Provider DO Alejo Lynn Emergency Provider MD Bobo Villagomez Admit Provider MD Bobo Villagomez Attending Provider MD Berhane Trammell Other Provider DO Cisco Nicholson Primary Care Provider MD Sandoval Palacios Jr Emergency Provider MD Warern Quiroz Admit Provider MD Warren Quiroz Attending Provider Cisco Nicholson Primary [facility] Unavailable Asaad, Imad Admitting Unavailable Fermin, Imad Attending Unavailable Cisco Nicholson Primary Care Unavailable Angely Lee Attending Unavailable Bobo Villagomez Admitting Unavailable Berhane Trammell Consulting Unavailable Berhane Trammell Consulting Unavailable Cisco Nicholson Primary Care Unavailable Warren Quiroz Admitting Unavailable Maren Petersen Attending Unavailable Cisco Nicholson Primary Care Unavailable Alek Oliva Admitting Unavailable Alek Oliva Attending Unavailable CISCO NICHOLSON Primary Care Physician [phone] Angely OCAMPO Attending Unavailable Angely OCAMPO Attending Unavailable CISCO NICHOLSON Referring Unavailable BARBARA CHAVEZAB Attending Unavailable MIGUEL ANGEL SLAUGHTER Attending Unavailable MIGUEL ANGEL SLAUGHTER Attending Unavailable CHEYANNE ALBARRAN Attending Unavailable CHEYANNE ALBARRAN Referring Unavailable Allergies Allergy Classification Reported Allergen(s) Allergy Type Date of Onset Reaction(s) Facility (6 sources) Ritonavir; Translations: [ritonavir] Drug Allergy 3 [facility] (6 sources) nirmatrelvir; Translations: [nirmatrelvir] Propensity to adverse reactions 3 [facility] (1 source) No Known Medication Allergies; Translations: [No Known Medication Allergies] Propensity to adverse reactions (disorder) [facility] Repository Medications Current Medications Medication Drug [...] mg/ml / brinzolamide 10 mg/ml ophthalmic suspension (9 sources) Carbonic Anhydrase Inhibitor, alpha-Adrenergic Agonist Start: 07-28-2023 take 1 drop(s) into the eye(s) twice daily Simbrinza 0.2%-1% ophthalmic suspension 1 drop(s), Eye-Both, BID, Refill(s) 0 Start Date: 07/28/23 Status: Ordered Start: 03-01-2023 take 1 drop(s) into the eye(s) twice daily Brinzolamide-Brimonidine Active 1 DROPS EYE-BOTH Twice daily March 01, 2023 12:00am brinzolamide (20 sources) Carbonic Anhydrase Inhibitor Brinzolamide Active cephalexin 500 mg oral capsule (20 sources) Cephalosporin Antibacterial Start: 11-22-19 take 1 capsule by mouth twice daily Cephalexin 500 MG 1 capsule Orally twice daily for 5 days Nov, Active Start: 03-19-2019 take [address] [facility] every eight hours Cephalexin 500 MG 1 capsule Orally tid for 5 day(s) Mar, Active gabapentin 300 mg oral capsule (20 [...] Irbesartan Active latanoprost 0.05 mg/ml ophthalmic solution (11 sources) Prostaglandin Analog Start: 07-28-2023 latanoprost Opth 0.005% Nisa 1 drop(s), OPTH, Once a day (at bedtime), 2.5 mL, Refill(s) 0 Start Date: 07/28/23 Status: Ordered Start: 08-25-2022 End: 03-01-2023 Latanoprost Discontinued 1 D ROPS EYE-BOTH As Directed August 25, 2022 1:00am March 01, 2023 9:05am metoprolol tartrate 25 mg oral tablet (20 sources) beta-Adrenergic Zachary Start: 12-15-2023 take 12.5 mg by mouth twice daily Metoprolol Tartrate Active 12.5 MG PO Twice daily December 15, 2023 1:42pm Start: 08-25-2022 End: 12-15-2023 take 25 mg by mouth once daily Metoprolol Tartrate Dis continued 25 MG PO Daily August 25, 2022 1:00am December 15, 2023 6:07pm Start: 08-18-2022 take [facility] by [facility] twelve hours Metoprolol Tartrate 25 MG 1 tablet with food Orally Twice a day Aug, Active Multivitamin preparation (9 sources) Start: 07-28-2023 take 1 tablet by [...] mg / trimethoprim 160 mg oral tablet (4 sources) Dihydrofolate Reductase Inhibitor Antibacterial, Sulfonamide Antimicrobial [...] 14 days Mar, Active busPIRone hydrochloride 15 mg oral tablet (20 sources) Start: 08-25-2022 End: 11-27-2023 take 15 mg by mouth twice daily Buspirone Discontinued 15 MG PO Twice daily June 20, 2023 12:00am November 27, 2023 9:11am Start: 08-25-2022 End: 03-01-2023 take 15 mg by mouth once daily Buspirone Discontinued 15 MG PO Daily August 25, 2022 1:00am March 01, 2023 9:05am busPIRone HCl Ac tive escitalopram 5 mg oral tablet (9 sources) Serotonin Reuptake Inhibitor Start: 11-10-2023 End: 01-28-2024 take 10 mg by mouth once daily Escitalopram Oxalate Discontinued 5 MG PO Daily November 10, 2023 12:00am January 28, 2024 9:06am Take daily w/ 10mg dose Start: 10-14-2023 End: 01-28-2024 take 10 mg by mouth once daily Escitalopram Oxalate Di scontinued 10 MG PO Daily October 14, 2023 1:00am January 28, 2024 9:06am Start: 09-17-2023 take 1 tablet by kelly th once at bedtime Escitalopram Oxalate 5 MG 1 tablet Orally q HS for 30 days Sep, Active metroNIDAZOLE 250 mg oral tablet (20 sources) Nitroimidazole Antimicrobial Start: 09-03-2022 End: 03-02-2023 take 250 mg by mouth four times daily Metronidazole Discontinued 250 MG PO Four times daily March 01, 2023 12:00am March 02, 2023 5:23pm Nirmatrelvir-Ritona vir (5 sources) Start: 06-20-2023 End: 06-22-2023 Nirmatrelvir-Ritona vir [...] [Inguinal hernia] Onset: 07-28-2023 Episodic Abdominal pain (4 sources) Right lower quadrant pain; Translations: [Abdominal pain] Episodic Anxiety disorders (20 sources) Generalized anxiety disorder; Translations: [Generalized anxiety disorder] Chronic Aortic; peripheral; and visceral artery aneurysms (3 sources) Aneurysm of ascending aorta; Translations: [Ascending aortic aneurysm] 12-31-2023 Chronic Biliary tract disease (20 sources) Cholelithiasis [...] Episodic Coronary atherosclerosis and other heart disease (6 sources) Coronary arteriosclerosis; Translations: [Atherosclerotic heart disease of [place] coronary artery without angina pectoris] 11-27-2023 Chronic Crushing injury or internal injury (1 source) Traumatic pneumothorax, initial encounter; Translations: [TRAUMATIC PNEUMOTHORAX INITIAL ENC] Onset: 07-01-2022 Episodic Disorders of lipid metabolism (20 sources) Pure hypercholesterolemia, unspecified; Translations: [Familial hypercholesterolemia] Onset: 08-02-2022 Chronic E Codes: Adverse effects of medical drugs (7 sources) Adverse reaction to drug; Translations: [Adverse [...] hypertension; Translations: [Essential hypertension] Onset: 09-16-2022 Chronic Genitourinary symptoms and ill-defined conditions (2 sources) Polyuria; Translations: [Polyuria] 03-14-2024 Episodic Glaucoma (8 sources) Primary open-angle glaucoma, right eye, moderate stage; Translations: [Glaucoma] Onset: 03-25-2022 07-14-2023 Chronic Hyperplasia of prostate (2 sources) Benign prostatic hyperplasia; Translations: [Benign prostatic hyperplasia with lower urinary tract symptoms] 03-14-2024 Chronic Inflammatory conditions of male genital organs (2 sources) Acute prostatitis; Translations: [Acute prostatitis] 11-06-2023 Episodic [...] Other halfway (current) drug therapy; Translations: [OTH CORRECTION CURRENT DRUG THERAPY] Onset: 09-16-2022 Episodic Other aftercare (1 source) intermediate (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; Translations: [CORRECTION CURRENT USE OF ASPIRIN] Onset: 09-16-2022 Episodic Other and ill-defined cerebrovascular disease (13 sources) Cerebral atherosclerosis; Translations: [Cerebral atherosclerosis] 10-27-2023 Chronic Other and ill-defined cerebrovascular disease (3 sources) Cerebral atherosclerosis Chronic Other and unspecified benign neoplasm (20 sources) Adenomatous polyp of colon ; Translations: [Benign neoplasm of descending colon] 07-14-2023 Episodic Other connective tissue disease (6 sources) Pain in lower limb; Translations: [Pain [...] with constipation] 07-14-2023 Chronic Other gastrointestinal disorders (6 sources) Irritable bowel syndrome with constipation; Translations: [Irritable bowel syndrome] Chronic Other hereditary and degenerative nervous system conditions (15 sources) Impaired cognition; Translations: [Mild cognitive impairment, so stated] Chronic Other hereditary and degenerative nervous system conditions (8 sources) Mild cognitive impairment, so stated; Translations: [Mild cognitive impairment with memory loss] Onset: 06-20-2023 Chronic Other infections; including parasitic (1 source) Personal history of other infectious and parasitic diseases Episodic Other lower respiratory disease (3 sources) Pleurodynia; Translations: [PLEURODYNIA] Onset: 07-01-2022 Episodic Other nervous system disorders (20 sources) Polyneuropathy; Translations: [Polyneuropathy, unspecified] 10-26-2023 Chronic Other nervous system disorders (20 sources) Polyneuropathy, unspecified; Translations: [Mononeuritis of unspecified site] Onset: 06-20-2023 Chronic Other nervous system disorders (8 sources) Neuropathy; Translations: [Polyneuropathy, unspecified] Onset: 06-20-2023 06-20-2023 Chronic Other nervous system disorders (9 sources) Metabolic encephalopathy; Translations: [Metabolic encephalopathy] Chronic Other nervous system disorders (1 source) Metabolic encephalopathy Chronic Other nervous system disorders (7 sources) Disorder of brain; Translations: [Encephalopathy, unspecified] 07-14-2023 Chronic Other nervous system disorders (4 sources) Other disturbances of skin sensation; Translations: [OTHER DISTURBANCES SKIN SENSATION] Onset: 07-28-2022 Episodic Other nervous system disorders (6 sources) Numbness of hand; Translations: [Anesthesia of [...] conditions (not mental disorders or infectious disease) (4 sources) Encounter for screening for malignant neoplasm of prostate; Translations: [Patient encounter status] Onset: 08-02-2022 Episodic Pleurisy; pneumothorax; pulmonary collapse (1 source) Pleural effusion, not elsewhere classified; Translations: [PLEURAL EFFUSION NEC] Onset: 07-02-2022 Episodic Residual codes; unclassified (1 source) Disorientation, unspecified Episodic Residual codes; unclassified (5 sources) Altered mental status; Translations: [Altered mental [...] index 20-24 - normal 07-28-2023 Viral infection (17 sources) COVID-19; Translations: [Severe acute respiratory syndrome coronavirus 2 (SARS-CoV-2) detected] Onset: 06-20-2023 06-20-2023 Episodic Past or Other Problems Problem Classification Problem Date Documented Da te Episodic/Chronic E Codes: Cut/pierceb (1 source) Contact with other sharp object(s), not elsewhere classified, initial encounter; Translations: [[facility] OTH SHRP OB NOT ELSW CLASS INI] [...] Test Name Value Interpretation Reference Range Facility No Panel Informationon 01-21 Prostate Specific Antigen Screen 1.33 ng/mL <=4.00 [facility] Office Visiton 12-14-2023 Follow-up visit [id number] NicholasYonatan Jose 1945 M Date Provider Department Center 12/14/2023 [id number] CHAVEZ PAM Jacques Family History Problem Relation Age of Onset Heart attack Father Heart attack Brother Family Status - Relation Status Age at Father Brother Level of Service:77723 [place] OFFICE/OUTPATIENT ESTABLISHED LOW MDM 20 MIN Normal [facility] Estimated glomerular filtrat ion rate (GFR) non- Americanon 11-16-2023 GFR/1.73 sq M.predicted among non-blacks MDRD (S/P/Bld) [Vol rate/Area] mL/min/{1.73_m2} >=60 [facility] - Chemistry and C hemistry - challengeon 11-16-2023 Calcium [Mass/Vol] 9.6 mg/dL 8.5-10.1 [facility] Chloride [Moles/Vol] 105 mmol/L 98-107 [facility] CO2 [Moles/Vol] 23.8 mmol/L 21.0-32.0 [facility] Creatinine [Mass/Vol] 1.02 mg/dL 0.70-1.30 [facility] GFR/1.73 sq M.predicted MDRD (S/P/Bld) [Vol rate/Area] mL/min/{1.73_m2} >=60 [facility] Glucose [Mass/Vol] 96 mg/dL 74-106 [facility] Potassium [Moles/Vol] 4.0 mmol/L 3.5-5.1 [facility] Sodium [Moles/Vol] 140 mmol/L 136-145 [facility] Urea nitrogen [Mass/Vol] 15.0 mg/dL 7.0-18.0 [facility] Urea nitrogen/Creatinine [Mass ratio] 14.7 mg/mg [facility] Serum or plasma anion gap de terminationon 11-16-2023 Anion gap [Moles/Vol] 15.2 mmol/L [facility] Operative Reporton Operative Report [id number]#1.00TIFF Normal [facility] RAD - MISCon 08-07-2023 RAD - MISC [id number]#1.00TIFF Normal [facility] Consent for Procedure/Surger yon 07-29-2023 Consent for Procedure/Surgery [id number]#1.00TIFF Normal [facility] Facesheeton 07-29-2023 Facesheet [id number]#1.00TIFF Normal [facility] Ambulatory Visit Summaryon 1 09-28-2022 [...] you for choosing us for your care. [facility] Ambulatory Visit Summary YONATAN PATEL :1945 Visit [...] for choosing us for your care. Normal [facility] Physician Referralon 023 Physician Referral [id number]#1.00TIFF Normal [facility] Basic Metabolic Panelon Anion gap [Moles/Vol] 10.4 mmol/L Normal 6.0-15.0 [facility] Comment on above: Order Comment: FASTI NG Y Performed By: #### H S TROP, CMP, CK, CBC #### [facility] [address] Calcium [Mass/Vol] 9.4 mg/dL Normal 8.6-10.3 [facility] Comment on above: Order Comment: FASTI NG Y Performed By: #### H S TROP, CMP, CK, CBC #### [facility] [address] [place] [address] [place] Chloride [Moles/Vol] 106 mmol/L Normal 98-107 [facility] Comment on above: Order Comment: FASTI NG Y Performed By: #### H S TROP, CMP, CK, CBC #### [facility] [address] [place] [id number] [facility] CO2 [Moles/Vol] 28.8 mmol/L Normal 21.0-31.0 [facility] Comment on above: Order Comment: FASTI NG Y Performed By: #### H S TROP, CMP, CK, CBC #### [facility] [address] [place] [id number] [place] Creatinine [Mass/Vol] 0.78 mg/dL Normal 0.70-1.30 [facility] Comment on above: Order Comment: FASTI NG Y Performed By: #### H S TROP, CMP, CK, CBC #### [facility] [address] [place] [id number] [place] Creatinine Clr Calc Pharmacy 81.46 [facility] Comment on above: Order Comment: FASTI NG Y Performed By: #### H S TROP, CMP, CK, CBC #### [facility] [address] [place] [address] [place] GFR/1.73 sq M.predicted MDRD (S/P/Bld) [Vol rate/Area] mL/min/{1.73_m2} Normal [facility] Comment on above: Order Comment: FASTI NG Y Performed By: #### H S TROP, CMP, CK, CBC #### [address] Glucose [Mass/Vol] 99 mg/dL Normal 70-100 [facility] Comment on above: Order Comment: FASTI NG Y Result Comment: [facility] Glucose Reference Range is dependent on time and content of last meal. Glucose of more than 200 mg/dL in a nonstressed, ambulatory subject supports the diagnosis of Diabetes Mellitus. ADA recommended reference range Performed By: #### H S TROP, CMP, CK, CBC #### [address] Potassium [Moles/Vol] 4.2 mmol/L Normal 3.5-5.1 [facility] Comment on above: Order Comment: FASTI NG Y Performed By: #### H S TROP, CMP, CK, CBC #### [address] Sodium [Moles/Vol] 141 mmol/L Normal 136-145 [facility] Comment on above: Order Comment: FASTI NG Y Performed By: #### H S TROP, CMP, CK, CBC #### [address] Urea nitrogen [Mass/Vol] 16 mg/dL Normal 7-25 [facility] Comment on above: Order Comment: FASTI NG Y Performed By: #### H S TROP, CMP, CK, CBC #### [address] Complete Blood Count Auto Di ffon 06-22-2023 Basophils (Bld) [#/Vol] 0.0 10*3/uL Normal 0.0-0.2 [facility] Comment on above: Result Comment: PERF ORMED BY: [place] [address] PATHOLOGIST PHOTOCOMPOSITION KEYBOARD OPERATOR HARRY MARTI M.D. Performed By: #### L IPID, [id number], PT, CBC, HEPATIC, BMP, PTT, TSH3, MG #### [address] Basophils/100 WBC (Bld) 0.4 % Normal . [facility] Comment on above: Performed By: #### L IPID, [id number], PT, CBC, HEPATIC, BMP, PTT, TSH3, MG #### [address] Eosinophils (Bld) [#/Vol] 0.1 10*3/uL Normal 0.0-0.45 [facility] Comment on above: Performed By: #### L IPID, [id number], PT, CBC, HEPATIC, BMP, PTT, TSH3, MG #### [address] Eosinophils/100 WBC (Bld) 1.2 % Normal . [facility] Comment on above: Performed By: #### L IPID, [id number], PT, CBC, HEPATIC, BMP, PTT, TSH3, MG #### [address] Erythrocyte distribution width (RBC) [Ratio] 15.2 % High 12.0-14.8 [facility] Comment on above: Performed By: #### L IPID, [id number], PT, CBC, HEPATIC, BMP, PTT, TSH3, MG #### [address] Hematocrit (Bld) [Volume fraction] 40.0 % Normal 38.8-50.0 [facility] Comment on above: Performed By: #### L IPID, [id number], PT, CBC, HEPATIC, BMP, PTT, TSH3, MG #### [address] [place] [address] [place] Hemoglobin (Bld) [Mass/Vol] 13.6 g/dL Normal 13.0-17.0 [facility] Comment on above: Performed By: #### L IPID, [id number], PT, CBC, HEPATIC, BMP, PTT, TSH3, MG #### [address] Lymphocytes (Bld) [#/Vol] 1.5 10*3/uL Normal 1.00-4.8 [facility] Comment on above: Performed By: #### L IPID, [id number], PT, CBC, HEPATIC, BMP, PTT, TSH3, MG #### [address] Lymphocytes/100 WBC (Bld) 35.5 % Normal . [facility] Comment on above: Performed By: #### L IPID, [id number], PT, CBC, HEPATIC, BMP, PTT, TSH3, MG #### [address] MCH (RBC) [Entitic mass] 29.4 pg Normal 27.5-35.2 [facility] Comment on above: Performed By: #### L IPID, [id number], PT, CBC, HEPATIC, BMP, PTT, TSH3, MG #### [address] MCV (RBC) [Entitic vol] 86.7 fL Normal 83.5-101 [facility] Comment on above: Performed By: #### L IPID, [id number], PT, CBC, HEPATIC, BMP, PTT, TSH3, MG #### [address] Mean Corpuscular HGB Conc 33.9 g/dL Normal 32.5-35.6 [facility] Comment on above: Performed By: #### L IPID, [id number], PT, CBC, HEPATIC, BMP, PTT, TSH3, MG #### [address] Monocytes (Bld) [#/Vol] 0.4 10*3/uL Normal 0.0-0.8 [facility] Comment on above: Performed By: #### L IPID, [id number], PT, CBC, HEPATIC, BMP, PTT, TSH3, MG #### [address] Monocytes/100 WBC (Bld) 10.4 % Normal . [facility] Comment on above: Performed By: #### L IPID, [id number], PT, CBC, HEPATIC, BMP, PTT, TSH3, MG #### [address] Neutrophils (Bld) [#/Vol] 2.2 10*3/uL Normal 1.8-7.7 [facility] Comment on above: Performed By: #### L IPID, [id number], PT, CBC, HEPATIC, BMP, PTT, TSH3, MG #### [address] Neutrophils/100 WBC (Bld) 52.5 % Normal . [facility] Comment on above: Performed By: #### L IPID, [id number], PT, CBC, HEPATIC, BMP, PTT, TSH3, MG #### [address] NRBC% 0.1 /100{WBC} Normal 0-0.5 [facility] Comment on above: Performed By: #### L IPID, [id number], PT, CBC, HEPATIC, BMP, PTT, TSH3, MG #### [address] Platelet mean volume (Bld) [Entitic vol] 7.3 fL Normal 6.6-10.1 [facility] Comment on above: Performed By: #### L IPID, [id number], PT, CBC, HEPATIC, BMP, PTT, TSH3, MG #### [address] Platelets (Bld) [#/Vol] 153 10*3/uL Normal 150-450 [facility] Comment on above: Performed By: #### L IPID, [id number], PT, CBC, HEPATIC, BMP, PTT, TSH3, MG #### [facility] [address] RBC (Bld) [#/Vol] 4.61 10*6/uL Normal 3.90-5.60 [facility] Comment on above: Performed By: #### L IPID, [id number], PT, CBC, HEPATIC, BMP, PTT, TSH3, MG #### [facility] [address] WBC (Bld) [#/Vol] 4.1 10*3/uL Normal 4.1-10.5 [facility] Comment on above: Performed By: #### L IPID, [id number], PT, CBC, HEPATIC, BMP, PTT, TSH3, MG #### [facility] [address] [place] [address] Hepatic Panelon 06-22-2023 Albumin [Mass/Vol] 3.8 g/dL Normal 3.5-5.7 [facility] Comment on above: Order Comment: FASTI NG Y Performed By: #### H S TROP, CMP, CK, CBC #### [facility] [address] [place] [address] Albumin/Globulin [Mass ratio] 1.6 {ratio} Normal [facility] Comment on above: Order Comment: FASTI NG Y Performed By: #### H S TROP, CMP, CK, CBC #### [facility] [address] [place] [address] ALP [Catalytic activity/Vol] 57 U/L Normal 34-104 [facility] Comment on above: Order Comment: FASTI NG Y Performed By: #### H S TROP, CMP, CK, CBC #### [facility] [address] [place] [address] ALT [Catalytic activity/Vol] 26 U/L Normal 7-52 [facility] Comment on above: Order Comment: FASTI NG Y Performed By: #### H S TROP, CMP, CK, CBC #### [facility] [address] [place] [address] AST [Catalytic activity/Vol] 27 U/L Normal 13-39 [facility] Comment on above: Order Comment: FASTI NG Y Performed By: #### H S TROP, CMP, CK, CBC #### [address] Bilirubin [Mass/Vol] 1.0 mg/dL Normal 0.3-1.0 [facility] Comment on above: Order Comment: FASTI NG Y Performed By: #### H S TROP, CMP, CK, CBC #### [address] Bilirubin,Indirect 0.8 mg/dL Normal [facility] Comment on above: Order Comment: FASTI NG Y Performed By: #### H S TROP, CMP, CK, CBC #### [address] Bilirubin.indirect [Mass/Vol] 0.20 mg/dL High 0.03-0.18 [facility] Comment on above: Order Comment: FASTI NG Y Performed By: #### H S TROP, CMP, CK, CBC #### [address] Globulin (S) [Mass/Vol] 2.4 g/dL Normal [facility] Comment on above: Order Comment: FASTI NG Y Performed By: #### H S TROP, CMP, CK, CBC #### [address] Protein [Mass/Vol] 6.2 g/dL Low 6.4-8.9 [facility] Comment on above: Order Comment: FASTI NG Y Performed By: #### H S TROP, CMP, CK, CBC #### [address] Lipid Panelon 06-22-2023 Cholesterol [Mass/Vol] 108 mg/dL Low 140-200 [facility] Comment on above: Order Comment: FASTI NG Y Result Comment: Chol less than 200 mg/dl low risk Chol 201-239 mg/dl borderline risk Chol 240 mg/dl and greater high risk Performed By: #### H S TROP, CMP, CK, CBC #### [facility] [address] Cholesterol in HDL [Mass/Vol] 30 mg/dL Normal 23-92 [facility] Comment on above: Order Comment: FASTI OSITO Y Result Comment: HDL CHOL ATP-III CLASSIFICATION Cardiovascular Risk HDL > or equal to 60 mg/dL LOW HDL < 40 mg/dL HIGH Performed By: #### H S TROP, CMP, CK, CBC #### [facility] [address] Cholesterol.total/Chol esterol in HDL [Mass ratio] 3.6 {ratio} Normal <5.0 [facility] Comment on above: Order Comment: STANBryan OSITO Y Performed By: #### H S TROP, CMP, CK, CBC #### [facility] [address] LDL Cholesterol,Calculated 54 mg/dL Normal 0-100 [facility] Comment on above: Order Comment: STANI OSITO Y Result Comment: LDL ATP III CLASSIFICATION LDL less than 100 mg/dL Optimal LDL 100-129 mg/dL Near or above optimal LDL 130-159 mg/dL Borderline high LDL 160-189 mg/dL High LDL greater than 189 mg/dL Very high Performed By: #### H S TROP, CMP, CK, CBC #### [facility] [address] Triglyceride w/Reflex 120 mg/dL Normal 0-149 [facility] Comment on above: Order Comment: FASTI NG Y Result Comment: TRIG ATP III CLASSIFICATION TRIG less than 150 mg/dL Normal TRIG 150-199 mg/dL Borderline high TRIG 200-500 mg/dL High TRIG greater than 500 mg/dL Very high Standard traceable to the Center for Disease Conrtrol and Prevention (CDC) test method. Performed By: #### H S TROP, CMP, CK, CBC #### [facility] [address] VLDL CHOLESTEROL 24 mg/dL Normal [facility] Comment on above: Order Comment: FASTI NG Y Performed By: #### H S TROP, CMP, CK, CBC #### [facility] [address] [place] [id number] [facility] MR angio head wo conon 06-22 MR angio head wo con [facility] [place] [address] [place] [address] MRI Report Signed Patient: Yonatan Patel MR#: [id number] 6 : 1945 Acct:[id number] Age/Sex: 78 / M ADM Date: 06/20/23 Loc: Room: [address] [place] [address] Type: ADM IN Attending Dr: Maren Petersen MD Copies to: MD Berhane Rocha MD Ordering Provider: Berhane Trammell MD Date of Service: 06/22/23 MR/MR angio head wo con: stroke MRI/MRA BRAIN WITHOUT CONTRAST COMPARISON: CT 06/20/2023 CLINICAL DATA: Confusion Sagittal T2, axial FLAIR and diffusion-weighted imaging was performed. 3-D [id number] imaging of the [place] was also performed. There is [...] Selena Reid M.D.06/22/2023 4:25 PM Dictation Location: [place] [address] Transcribed By: [facility] 06/22/23 4447 Dictated By: Selena Reid MD 06/22/23 1617 Signed By: 06/22/23 1625 Normal [facility] Magnesiumon 06-22-2023 Magnesium [Mass/Vol] 2.1 mg/dL Normal 1.9-2.7 [facility] Comment on above: Order Comment: SHABANA Child Performed By: #### H S TROP, CMP, CK, CBC #### [facility] [address] [place] [address] [facility] Partial Thromboplastin Timeo n 06-22-2023 aPTT Coag (Bld) [Time] 27.4 s Normal 25.1-36.5 [facility] Comment on above: Result Comment: A he matocrit value greater than 55% may lead to inaccurate results in coagulation testing. Patients having hematocrit values >55% require a special collection tube for coagulation studies. Please contact the laboratory at [phone] for redraw instructions. PERFORMED BY: [place] [address] PATHOLOGIST PHOTOCOMPOSITION KEYBOARD OPERATOR HARRY MARTI M.D. Performed By: #### H S TROP, CMP, CK, CBC #### [facility] [address] [place] [address] [place] Prothrombin Time INRon 06-22 INR Coag (PPP) [Relative time] 1.0 {INR} [facility] Comment on above: Result Comment: INR Therapeutic [...] - 4.5 Performed By: #### L IPID, [id number], PT, CBC, HEPATIC, BMP, PTT, TSH3, MG #### [facility] [address] [place] [address] [facility] PT Coag (PPP) [Time] 11.6 s Normal 9.0-12.9 [facility] Comment on above: Result Comment: A he matocrit value greater than 55% may lead to inaccurate results in coagulation testing. Patients having hematocrit values >55% require a special collection tube for coagulation studies. Please contact the laboratory at [phone] for redraw instructions. Performed By: #### L IPID, [id number], PT, CBC, HEPATIC, BMP, PTT, TSH3, MG #### [facility] [address] [place] [address] Thyroid Stimulating Hormoneo n 06-22-2023 TSH Qn 2.38 m[IU]/L Normal 0.45-5.33 [facility] Comment on above: Order Comment: FASTI NG Y Result Comment: PERF ORMED BY: [place] [address] PATHOLOGIST PHOTOCOMPOSITION KEYBOARD OPERATOR HARRY MARTI M.D. Performed By: #### H S TROP, CMP, CK, CBC #### [address] Vit. B12/Folate Profileon Cobalamin (Vitamin B12) [Mass/Vol] 425 pg/mL Normal 180-914 [facility] Comment on above: Order Comment: FASTI NG Y Performed By: #### H S TROP, CMP, CK, CBC #### [address] Folate 29.0 ng/mL Normal >5.9 [facility] Comment on above: Order Comment: FASTI NG Y Result Comment: Aye te reference range: >5.9 ng/ml The WHO technical consultation on folate and vitamin b12 deficiencies has determined that folate concentrations less than 4 ng/ml are considered deficient. Performed By: #### H S TROP, CMP, CK, CBC #### [facility] [address] [place] [address] Vitamin B1 (Thiamine) Bloodo n 06-22-2023 Vitamin B1 (Thiamine) Blood 143.9 Normal 66.5-200.0 [facility] Comment on above: Result Comment: This test was developed and its performance characteristics determined by [facility]. It has not been cleared or approved by the Food and Drug Administration. Performed at: [place] [id number] [employer] Manager: Juan Howard MD, Phone: [phone] PERFORMED BY: [place] [address] PATHOLOGIST PHOTOCOMPOSITION KEYBOARD OPERATOR HARRY MARTI M.D. Performed By: #### V ITB1 #### [facility] , Ammoniaon 06-21-2023 Ammonia (P) [Moles/Vol] 19 umol/L Normal 11-35 [facility] Comment on above: Result Comment: PERF ORMED BY: [place] [address] PATHOLOGIST PHOTOCOMPOSITION KEYBOARD OPERATOR HARRY MARTI M.D. Performed By: #### H S TROP, CMP, CK, CBC #### [address] Basic Metabolic Panelon Anion gap [Moles/Vol] 11.3 mmol/L Normal 6.0-15.0 [facility] Comment on above: Performed By: #### H S TROP, CMP, CK, CBC #### [facility] [address] [place] [address] [place] Calcium [Mass/Vol] 9.4 mg/dL Normal 8.6-10.3 [facility] Comment on above: Performed By: #### H S TROP, CMP, CK, CBC #### [facility] [address] [place] [address] [place] Chloride [Moles/Vol] 107 mmol/L Normal 98-107 [facility] Comment on above: Performed By: #### H S TROP, CMP, CK, CBC #### [facility] [address] [place] [address] [place] CO2 [Moles/Vol] 25.7 mmol/L Normal 21.0-31.0 [facility] Comment on above: Performed By: #### H S TROP, CMP, CK, CBC #### [facility] [address] [place] [address] [place] Creatinine [Mass/Vol] 0.83 mg/dL Normal 0.70-1.30 [facility] Comment on above: Performed By: #### H S TROP, CMP, CK, CBC #### [facility] [address] [place] [address] [place] Creatinine Clr Calc Pharmacy 80.52 [facility] Comment on above: Result Comment: PERF ORMED BY: [place] [address] PATHOLOGIST PHOTOCOMPOSITION KEYBOARD OPERATOR HARRY MARTI M.D. Performed By: #### H S TROP, CMP, CK, CBC #### [facility] [address] [place] [address] [place] GFR/1.73 sq M.predicted MDRD (S/P/Bld) [Vol rate/Area] mL/min/{1.73_m2} [facility] Comment on above: Performed By: #### H S TROP, CMP, CK, CBC #### [place] [address] [place] Glucose [Mass/Vol] 174 mg/dL High 70-100 [facility] Comment on above: Result Comment: [place] Glucose Reference Range is dependent on time and content of last meal. Glucose of more than 200 mg/dL in a nonstressed, ambulatory subject supports the diagnosis of Diabetes Mellitus. ADA recommended reference range Performed By: #### H S TROP, CMP, CK, CBC #### [place] [address] [place] Potassium [Moles/Vol] 4.0 mmol/L Normal 3.5-5.1 [facility] Comment on above: Performed By: #### H S TROP, CMP, CK, CBC #### [place] [address] [place] Sodium [Moles/Vol] 140 mmol/L Normal 136-145 [facility] Comment on above: Performed By: #### H S TROP, CMP, CK, CBC #### [place] [address] [place] Urea nitrogen [Mass/Vol] 11 mg/dL Normal 7-25 [facility] Comment on above: Performed By: #### H S TROP, CMP, CK, CBC #### [address] Hemogram CBC Without Diffon 06-21-2023 Erythrocyte distribution width (RBC) [Ratio] 14.7 % Normal 12.0-14.8 [facility] Comment on above: Performed By: #### H S TROP, CMP, CK, CBC #### [address] Hematocrit (Bld) [Volume fraction] 40.7 % Normal 38.8-50.0 [facility] Comment on above: Performed By: #### H S TROP, CMP, CK, CBC #### [address] Hemoglobin (Bld) [Mass/Vol] 13.9 g/dL Normal 13.0-17.0 [facility] Comment on above: Performed By: #### H S TROP, CMP, CK, CBC #### [address] MCH (RBC) [Entitic mass] 29.7 pg Normal 27.5-35.2 [facility] Comment on above: Performed By: #### H S TROP, CMP, CK, CBC #### [address] MCV (RBC) [Entitic vol] 86.8 fL Normal 83.5-101 [facility] Comment on above: Performed By: #### H S TROP, CMP, CK, CBC #### [address] Mean Corpuscular HGB Conc 34.2 g/dL Normal 32.5-35.6 [facility] Comment on above: Performed By: #### H S TROP, CMP, CK, CBC #### [address] Platelet mean volume (Bld) [Entitic vol] 7.3 fL Normal 6.6-10.1 [facility] Comment on above: Result Comment: PERF ORMED BY: [place] [id number] PATHOLOGIST PHOTOCOMPOSITION KEYBOARD OPERATOR HARRY MARTI M.D. Performed By: #### H S TROP, CMP, CK, CBC #### [facility] [address] Platelets (Bld) [#/Vol] 144 10*3/uL Low 150-450 [facility] Comment on above: Performed By: #### H S TROP, CMP, CK, CBC #### [facility] [address] RBC (Bld) [#/Vol] 4.69 10*6/uL Normal 3.90-5.60 [facility] Comment on above: Performed By: #### H S TROP, CMP, CK, CBC #### [facility] [address] WBC (Bld) [#/Vol] 3.9 10*3/uL Low 4.1-10.5 [facility] Comment on above: Performed By: #### H S TROP, CMP, CK, CBC #### [address] COVID CepheidOrdered By: Huy Palacios on 06-20-2023 SARS-CoV-2 (COVID-19) Ab IA Ql Positive Negative [facility] Comment on above: This is a duplicate Cepheid Xpert Xpress CoV-2/Flu/RSV Plus RNA by RT-PCR result to be used for statistical tracking purpose only. SARS-CoV-2 (COVID-19) RNA MARIANNE+probe Ql (Unsp spec) [facility] COVID-19 / Flu A/B / RSV PCR [...] or Cepheid Disclaimer revoked sooner. PERFORMED BY: [place] [address] PATHOLOGIST PHOTOCOMPOSITION KEYBOARD OPERATOR HARRY MARTI M.D. [facility] Comment on above: Performed By: #### H S TROP, CMP, CK, CBC #### [place] [id number] [facility] CT head/brain wo roc 06-20 CT head/brain wo [facility] [place] [address] [place] [address] CT Scan Report Signed Patient: Yonatan Patel MR#: [id number] 6 : 1945 Acct:[id number] Age/Sex: 78 / M ADM Date: 06/20/23 Loc: 4N Room: 6Q4463-2 Type: ADM INOo Attending Dr: Jassi Arias [...] Daisha Fernandez M.D.06/20/2023 8:34 AM Dictation Location: [place] [address] Transcribed By: [facility] 06/20/23833 Dictated By: Daisha Fernandez II, MD 06/20/23829 Signed By: 06/20/23833 Normal [facility] Cepheid COVID PCR Positiveon 06-20-2023 SARS-CoV-2 (COVID-19) RNA MARIANNE+probe Ql (Unsp spec) Positive Critically abnormal Negative [facility] Comment on above: Result Comment: This is a duplicate CepElco Xpert Xpress CoV-2/Flu/RSV Plus RNA by RT-PCR result to be used for statistical tracking purpose only. PERFORMED BY: [place] [address] PATHOLOGIST PHOTOCOMPOSITION KEYBOARD OPERATOR HARRY MARTI M.D. Performed By: #### H S TROP, CMP, CK, CBC #### [address] Complete Blood Count Auto Di ffon 06-20-2023 Basophils (Bld) [#/Vol] 0.0 10*3/uL Normal 0.0-0.2 [facility] Comment on above: Result Comment: PERF ORMED BY: [place] [address] PATHOLOGIST PHOTOCOMPOSITION KEYBOARD OPERATOR HARRY MARTI M.D. Performed By: #### H S TROP, CMP, CK, CBC #### [address] Basophils/100 WBC (Bld) 0.4 % Normal . [facility] Comment on above: Performed By: #### H S TROP, CMP, CK, CBC #### [address] Eosinophils (Bld) [#/Vol] 0.0 10*3/uL Normal 0.0-0.45 [facility] Comment on above: Performed By: #### H S TROP, CMP, CK, CBC #### [address] Eosinophils/100 WBC (Bld) 0.6 % Normal . [facility] Comment on above: Performed By: #### H S TROP, CMP, CK, CBC #### [address] Erythrocyte distribution width (RBC) [Ratio] 14.9 % High 12.0-14.8 [facility] Comment on above: Performed By: #### H S TROP, CMP, CK, CBC #### [address] Hematocrit (Bld) [Volume fraction] 43.3 % Normal 38.8-50.0 [facility] Comment on above: Performed By: #### H S TROP, CMP, CK, CBC #### [address] Hemoglobin (Bld) [Mass/Vol] 14.8 g/dL Normal 13.0-17.0 [facility] Comment on above: Performed By: #### H S TROP, CMP, CK, CBC #### [address] Lymphocytes (Bld) [#/Vol] 1.0 10*3/uL Normal 1.00-4.8 [facility] Comment on above: Performed By: #### H S TROP, CMP, CK, CBC #### [address] Lymphocytes/100 WBC (Bld) 20.8 % Normal . [facility] Comment on above: Performed By: #### H S TROP, CMP, CK, CBC #### [address] MCH (RBC) [Entitic mass] 30.0 pg Normal 27.5-35.2 [facility] Comment on above: Performed By: #### H S TROP, CMP, CK, CBC #### [address] MCV (RBC) [Entitic vol] 87.6 fL Normal 83.5-101 [facility] Comment on above: Performed By: #### H S TROP, CMP, CK, CBC #### [address] Mean Corpuscular HGB Conc 34.2 g/dL Normal 32.5-35.6 [facility] Comment on above: Performed By: #### H S TROP, CMP, CK, CBC #### [address] Monocytes (Bld) [#/Vol] 0.8 10*3/uL Normal 0.0-0.8 [facility] Comment on above: Performed By: #### H S TROP, CMP, CK, CBC #### [facility] [address] [place] [address] [place] Monocytes/100 WBC (Bld) 24.01 % High 0.00-20.00 [facility] Comment on above: Result Comment: For adults in ED, MDW > 20.0 may be associated with a higher risk of sepsis during the first 12 hrs of hospital admission Performed By: #### H S TROP, CMP, CK, CBC #### [facility] [address] Monocytes/100 WBC (Bld) 15.6 % Normal . [facility] Comment on above: Performed By: #### H S TROP, CMP, CK, CBC #### [facility] [address] Neutrophils (Bld) [#/Vol] 3.0 10*3/uL Normal 1.8-7.7 [facility] Comment on above: Performed By: #### H S TROP, CMP, CK, CBC #### [facility] [address] Neutrophils/100 WBC (Bld) 62.6 % Normal . [facility] Comment on above: Performed By: #### H S TROP, CMP, CK, CBC #### [facility] [address] [place] [address] [place] NRBC% 0.4 /100{WBC} Normal 0-0.5 [facility] Comment on above: Performed By: #### H S TROP, CMP, CK, CBC #### [facility] [address] Platelet mean volume (Bld) [Entitic vol] 7.9 fL Normal 6.6-10.1 [facility] Comment on above: Performed By: #### H S TROP, CMP, CK, CBC #### [facility] [address] [place] [address] [place] Platelets (Bld) [#/Vol] 154 10*3/uL Normal 150-450 [facility] Comment on above: Performed By: #### H S TROP, CMP, CK, CBC #### [address] RBC (Bld) [#/Vol] 4.94 10*6/uL Normal 3.90-5.60 [facility] Comment on above: Performed By: #### H S TROP, CMP, CK, CBC #### [address] WBC (Bld) [#/Vol] 4.8 10*3/uL Normal 4.1-10.5 [facility] Comment on above: Performed By: #### H S TROP, CMP, CK, CBC #### [address] Comprehensive Metabolic Pane alex 06-20-2023 Albumin [Mass/Vol] 4.2 g/dL Normal 3.5-5.7 [facility] Comment on above: Performed By: #### H S TROP, CMP, CK, CBC #### [address] Albumin/Globulin [Mass ratio] 1.6 {ratio} Normal [facility] Comment on above: Performed By: #### H S TROP, CMP, CK, CBC #### [address] ALP [Catalytic activity/Vol] 53 U/L Normal 34-104 [facility] Comment on above: Performed By: #### H S TROP, CMP, CK, CBC #### [address] ALT [Catalytic activity/Vol] 31 U/L Normal 7-52 [facility] Comment on above: Performed By: #### H S TROP, CMP, CK, CBC #### [address] Anion gap [Moles/Vol] 9.2 mmol/L Normal 6.0-15.0 [facility] Comment on above: Performed By: #### H S TROP, CMP, CK, CBC #### [address] [place] [address] [place] AST [Catalytic activity/Vol] 33 U/L Normal 13-39 [facility] Comment on above: Performed By: #### H S TROP, CMP, CK, CBC #### [address] Bilirubin [Mass/Vol] 1.0 mg/dL Normal 0.3-1.0 [facility] Comment on above: Performed By: #### H S TROP, CMP, CK, CBC #### [address] Calcium [Mass/Vol] 9.8 mg/dL Normal 8.6-10.3 [facility] Comment on above: Performed By: #### H S TROP, CMP, CK, CBC #### [address] Chloride [Moles/Vol] 107 mmol/L Normal 98-107 [facility] Comment on above: Performed By: #### H S TROP, CMP, CK, CBC #### [address] CO2 [Moles/Vol] 25.6 mmol/L Normal 21.0-31.0 [facility] Comment on above: Performed By: #### H S TROP, CMP, CK, CBC #### [address] Creatinine [Mass/Vol] 0.95 mg/dL Normal 0.70-1.30 [facility] Comment on above: Performed By: #### H S TROP, CMP, CK, CBC #### [address] Creatinine Clr Calc Pharmacy 70.44 Normal [facility] Comment on above: Result Comment: PERF ORMED BY: [place] [address] PATHOLOGIST PHOTOCOMPOSITION KEYBOARD OPERATOR HARRY MARTI M.D. Performed By: #### H S TROP, CMP, CK, CBC #### [facility] [address] [place] [address] [place] GFR/1.73 sq M.predicted MDRD (S/P/Bld) [Vol rate/Area] mL/min/{1.73_m2} [facility] Comment on above: Performed By: #### H S TROP, CMP, CK, CBC #### [facility] [address] Globulin (S) [Mass/Vol] 2.7 g/dL Normal [facility] Comment on above: Performed By: #### H S TROP, CMP, CK, CBC #### [facility] [address] Glucose [Mass/Vol] 94 mg/dL Normal 70-100 [facility] Comment on above: Result Comment: [facility] Glucose Reference Range is dependent on time and content of last meal. Glucose of more than 200 mg/dL in a nonstressed, ambulatory subject supports the diagnosis of Diabetes Mellitus. ADA recommended reference range Performed By: #### H S TROP, CMP, CK, CBC #### [address] Potassium [Moles/Vol] 3.8 mmol/L Normal 3.5-5.1 [facility] Comment on above: Performed By: #### H S TROP, CMP, CK, CBC #### [address] Protein [Mass/Vol] 6.9 g/dL Normal 6.4-8.9 [facility] Comment on above: Performed By: #### H S TROP, CMP, CK, CBC #### [facility] [address] [place] [address] [place] Sodium [Moles/Vol] 138 mmol/L Normal 136-145 [facility] Comment on above: Performed By: #### H S TROP, CMP, CK, CBC #### [facility] [address] Urea nitrogen [Mass/Vol] 18 mg/dL Normal 7-25 [facility] Comment on above: Performed By: #### H S TROP, CMP, CK, CBC #### [facility] [address] [place] [address] [place] Creatine Kinaseon 06-20-2023 CK [Catalytic activity/Vol] 113 U/L Normal 30-223 [facility] Comment on above: Performed By: #### H S TROP, CMP, CK, CBC #### [facility] [address] [place] [address] Troponin I High Sensitivityo n 06-20-2023 Troponin I High Sensitivity 7.8 pg/mL Normal 0.0-20.0 [facility] Comment on above: Result Comment: PERF ORMED BY: [place] [address] PATHOLOGIST PHOTOCOMPOSITION KEYBOARD OPERATOR HARRY MARTI M.D. Performed By: #### H S TROP, CMP, CK, CBC #### [facility] [address] [place] [address] Urinalysison 06-20-2023 Appearance (U) Clear Normal Clear [facility] Comment on above: Order Comment: Name Collection Type:: Clean-Voided Midstream Performed By: #### H S TROP, CMP, CK, CBC #### [facility] [address] [place] [address] [place] Bilirubin,Urine Negative Normal Negative [facility] Comment on above: Order Comment: Name Collection Type:: Clean-Voided Midstream Performed By: #### H S TROP, CMP, CK, CBC #### [facility] [address] [place] [address] Color (U) Yellow Normal Yellow [facility] Comment on above: Order Comment: Name Collection Type:: Clean-Voided Midstream Performed By: #### H S TROP, CMP, CK, CBC #### [facility] [address] [place] [address] [place] Glucose Ql (U) Normal Normal Normal [facility] Comment on above: Order Comment: Name Collection Type:: Clean-Voided Midstream Performed By: #### H S TROP, CMP, CK, CBC #### [facility] [address] [place] [address] [place] Ketones Ql (U) Negative Normal Negative [facility] Comment on above: Order Comment: Name Collection Type:: Clean-Voided Midstream Performed By: #### H S TROP, CMP, CK, CBC #### [address] Leukocyte esterase Test strip Ql (U) Negative Normal Negative [facility] Comment on above: Order Comment: Name Collection Type:: Clean-Voided Midstream Performed By: #### H S TROP, CMP, CK, CBC #### [address] Nitrite,Urine Negative Normal Negative [facility] Comment on above: Order Comment: Name Collection Type:: Clean-Voided Midstream Performed By: #### H S TROP, CMP, CK, CBC #### [address] Occult Blood,Urine Negative Normal Negative [facility] Comment on above: Order Comment: Name Collection Type:: Clean-Voided Midstream Result Comment: PERF ORMED BY: [place] [address] PATHOLOGIST PHOTOCOMPOSITION KEYBOARD OPERATOR HARRY MARTI M.D. Performed By: #### H S TROP, CMP, CK, CBC #### [address] pH (U) 5.5 [pH] Normal 5.0-9.0 [facility] Comment on above: Order Comment: Name Collection Type:: Clean-Voided Midstream Performed By: #### H S TROP, CMP, CK, CBC #### [address] Protein,Urine Negative Normal Negative [facility] Comment on above: Order Comment: Name Collection Type:: Clean-Voided Midstream Performed By: #### H S TROP, CMP, CK, CBC #### [address] Specificy Onyx,Urine 1.005 Normal 1.001-1.03 0 [facility] Comment on above: Order Comment: Name Collection Type:: Clean-Voided Midstream Performed By: #### H S TROP, CMP, CK, CBC #### [facility] [address] [place] [id number] [facility] Urobilinogen,Urine Normal Normal Normal [facility] Comment on above: Order Comment: Name Collection Type:: Clean-Voided Midstream Performed By: #### H S TROP, CMP, CK, CBC #### [facility] [address] [place] [id number] [facility] XR chest 2V*on 06-20-2023 XR chest 2V* [facility] [place] [address] [place] [address] XRay Report Signed Patient: Yonatan Patel MR#: [id number] 6 : 1945 Acct:[id number] Age/Sex: 78 / M ADM Date: 06/20/23 Loc: Room: [address] [place] [address] Type: ADM INOo Attending Dr: Jassi Arias [...] Daisha Fernandez M.D.06/20/2023 11:21 AM Dictation Location: [place] [address] Transcribed By: [facility] 06/20/23 112 Dictated By: Daisha Fernandez II, MD 06/20/23 1120 Signed By: 06/20/23 1121 [facility] Alanine aminotransferase [En zymatic activity/volume] in Serum or PlasmaOrdered By: PROVIDER TEMJudith on 06-19-2023 ALT [Catalytic activity/Vol] 31 U/L 7-52 [facility] Albumin [Mass/volume] in Ser um or Plasma by Bromocresol green (BCG) dye binding methoOrdered By: PROVIDER TEMP on 06-19-2023 Albumin BCG dye [Mass/Vol] 4.2 g/dL 3.5-5.7 [facility] Alkaline phosphatase [Enzyma tic activity/volume] in Serum or PlasmaOrdered By: PROVIDER TEMP on 06-19-2023 ALP [Catalytic activity/Vol] 53 U/L 34-104 [facility] Aspartate aminotransferase [ Enzymatic activity/volume] in Serum or PlasmaOrdered By: PROVIDER TEMP on 06-19-2023 AST [Catalytic activity/Vol] 33 U/L 13-39 [facility] Basophils Auto (Bld) [#/Vol] Ordered By: PROVIDER TEMP on 06-19-2023 Basophils (Bld) [#/Vol] 0.0 10*3/uL 0.0-0.2 [facility] Basophils/100 WBC Auto (Bld) Ordered By: PROVIDER TEMP on 06-19-2023 Basophils/100 WBC (Bld) 0.4 % . [facility] Bilirubin Auto test strip Ql (U)Ordered By: PROVIDER TEMP on 06-19-2023 Bilirubin Ql (U) Negative Negative [facility] Bilirubin.total [Mass/volume ] in Serum or PlasmaOrdered By: PROVIDER TEMP on 06-19-2023 Bilirubin [Mass/Vol] 1.0 mg/dL 0.3-1.0 [facility] Calcium [Mass/volume] in Ser um or PlasmaOrdered By: PROVIDER TEMP on 06-19-2023 Calcium [Mass/Vol] 9.8 mg/dL 8.6-10.3 [facility] Carbon dioxide, total [Moles /volume] in Serum or PlasmaOrdered By: PROVIDER TEMP on 06-19-2023 CO2 [Moles/Vol] 25.6 mmol/L 21.0-31.0 [facility] Chloride [Moles/volume] in S raymundo or PlasmaOrdered By: PROVIDER TEMP on 06-19-2023 Chloride [Moles/Vol] 107 mmol/L 98-107 [facility] Creatine kinase [Enzymatic a ctivity/volume] in Serum or PlasmaOrdered By: PROVIDER TEMP on 06-19-2023 CK [Catalytic activity/Vol] 113 U/L 30-223 [facility] Creatinine [Mass/volume] in Serum or PlasmaOrdered By: PROVIDER TEMP on 06-19-2023 Creatinine [Mass/Vol] 0.95 mg/dL 0.70-1.30 [facility] Eosinophils Auto (Bld) [#/Vo l]Ordered By: PROVIDER TEMP on 06-19-2023 Eosinophils (Bld) [#/Vol] 0.0 10*3/uL 0.0-0.45 [facility] Eosinophils/100 WBC Auto (Bl d)Ordered By: PROVIDER TEMP on 06-19-2023 Eosinophils/100 WBC (Bld) 0.6 % . [facility] Erythrocyte distribution wid th Auto (RBC) [Ratio]Ordered By: PROVIDER TEMP on 06-19-2023 Erythrocyte distribution width (RBC) [Ratio] 14.9 % 12.0-14.8 [facility] Globulin Calc (S) [Mass/Vol] Ordered By: PROVIDER TEMP on 06-19-2023 Globulin (S) [Mass/Vol] 2.7 g/dL [facility] Glucose [Mass/volume] in Ser um or PlasmaOrdered By: PROVIDER TEMP on 06-19-2023 Glucose [Mass/Vol] 94 mg/dL 70-100 [facility] Comment on above: ADA recommended refe rence rangeRandom Glucose Reference Range is dependent on time and content of last meal. Glucose of more than 200 mg/dL in a nonstressed, ambulatory subject supports the diagnosis of Diabetes Mellitus. Hematocrit Auto (Bld) [Volum e fraction]Ordered By: PROVIDER TEMP on 06-19-2023 Hematocrit (Bld) [Volume fraction] 43.3 % 38.8-50.0 [facility] Hemoglobin [Mass/volume] in BloodOrdered By: PROVIDER TEMP on 06-19-2023 Hemoglobin (Bld) [Mass/Vol] 14.8 g/dL 13.0-17.0 [facility] Ketones Auto test strip (U) [Mass/Vol]Ordered By: PROVIDER TEMP on 06-19-2023 Ketones (U) [Mass/Vol] Negative Negative Fi [facility] Leukocytes [#/volume] correc airam for nucleated erythrocytes in Blood by Automated counOrdered By: PROVIDER TEMP on 06-19-2023 WBC corrected for nucl RBC Auto (Bld) [#/Vol] 4.8 10*3/uL 4.1-10.5 [facility] Lymphocytes Auto (Bld) [#/Vo l]Ordered By: PROVIDER TEMP on 06-19-2023 Lymphocytes (Bld) [#/Vol] 1.0 10*3/uL 1.00-4.8 [facility] Lymphocytes/100 WBC Auto (Bl d)Ordered By: PROVIDER TEMP on 06-19-2023 Lymphocytes/100 WBC (Bld) 20.8 % . [facility] MCH Auto (RBC) [Entitic mass ]Ordered By: PROVIDER TEMP on 06-19-2023 MCH (RBC) [Entitic mass] 30.0 pg 27.5-35.2 [facility] MCHC Auto (RBC) [Mass/Vol]Or dered By: PROVIDER TEMP on 06-19-2023 MCHC (RBC) [Mass/Vol] 34.2 g/dL 32.5-35.6 [facility] MCV Auto (RBC) [Entitic vol] Ordered By: PROVIDER TEMP on 06-19-2023 MCV (RBC) [Entitic vol] 87.6 fL 83.5-101 [facility] Monocyte distribution width [Entitic volume] in Blood by AutomatedOrdered By: PROVIDER TEMP on 06-19-2023 Monocyte distribution width Auto (Bld) [Entitic vol] 24.01 % 0.00-20.00 [facility] Comment on above: For adults in ED, MD W > 20.0 may be associated with a higher risk of sepsis during the first 12 hrs of hospital admission Monocytes Auto (Bld) [#/Vol] Ordered By: PROVIDER TEMP on 06-19-2023 Monocytes (Bld) [#/Vol] 0.8 10*3/uL 0.0-0.8 [facility] Monocytes/100 WBC Auto (Bld) Ordered By: PROVIDER TEMP on 06-19-2023 Monocytes/100 WBC (Bld) 15.6 % . [facility] Neutrophils Auto (Bld) [#/Vo l]Ordered By: PROVIDER TEMP on 06-19-2023 Neutrophils (Bld) [#/Vol] 3.0 10*3/uL 1.8-7.7 [facility] Neutrophils/100 WBC Auto (Bl d)Ordered By: PROVIDER TEMP on 06-19-2023 Neutrophils/100 WBC (Bld) 62.6 % . [facility] No Panel InformationOrdered By: PROVIDER TEMP on 06-19-2023 Estimated GFR (CKD-EPI) > 60.0 mL/Min [facility] Creatinine Clearance (Chem 70.44 [facility] Nucleated erythrocytes [Pres ence] in Blood by Automated countOrdered By: PROVIDER TEMP on 06-19-2023 Nucleated RBC Auto Ql (Bld) 0.4 /100{WBC} 0-0.5 [facility] Platelet mean volume Auto (B ld) [Entitic vol]Ordered By: PROVIDER TEMP on 06-19-2023 Platelet mean volume (Bld) [Entitic vol] 7.9 fL 6.6-10.1 [facility] Platelets Auto (Bld) [#/Vol] Ordered By: PROVIDER TEMP on 06-19-2023 Platelets (Bld) [#/Vol] 154 10*3/uL 150-450 [facility] Potassium [Moles/volume] in Serum or PlasmaOrdered By: PROVIDER TEMP on 06-19-2023 Potassium [Moles/Vol] 3.8 mmol/L 3.5-5.1 [facility] Protein Auto test strip (U) [Mass/Vol]Ordered By: PROVIDER TEMP on 06-19-2023 Protein (U) [Mass/Vol] Negative Negative [facility] Protein [Mass/volume] in Ser um or PlasmaOrdered By: PROVIDER TEMP on 06-19-2023 Protein [Mass/Vol] 6.9 g/dL 6.4-8.9 [facility] RBC Auto (Bld) [#/Vol]Ordere d By: PROVIDER TEMP on 06-19-2023 RBC (Bld) [#/Vol] 4.94 10*6/uL 3.90-5.60 [facility] Serum or plasma albumin/glob ulin mass ratioOrdered By: PROVIDER TEMP on 06-19-2023 Albumin/Globulin [Mass ratio] 1.6 {ratio} [facility] Serum or plasma anion gap de terminationOrdered By: PROVIDER TEMP on 06-19-2023 Anion gap [Moles/Vol] 9.2 mmol/L 6.0-15.0 [facility] Sodium [Moles/volume] in Ser um or PlasmaOrdered By: PROVIDER TEMP on 06-19-2023 Sodium [Moles/Vol] 138 mmol/L 136-145 [facility] Troponin I.cardiac [Mass/vol ume] in Serum or Plasma by Detection limit <= 0.01 ng/Ordered By: PROVIDER TEMP on 06-19-2023 Troponin I.cardiac DL <= 0.01 ng/mL [Mass/Vol] 7.8 pg/mL 0.0-20.0 [facility] Urea nitrogen [Mass/volume] in Serum or PlasmaOrdered By: PROVIDER TEMP on 06-19-2023 Urea nitrogen [Mass/Vol] 18 mg/dL 7-25 [facility] Urine appearanceOrdered By: PROVIDER TEMP on 06-19-2023 Appearance (U) Clear Clear [facility] Urine colorOrdered By: SOLE JEANETTE TEMP on 06-19-2023 Color (U) Yellow Yellow [facility] Urine glucose measurement by automated test strip (mass/volume)Ordered By: PROVIDER TEMP on 06-19-2023 Glucose Auto test strip (U) [Mass/Vol] Normal mg/dL Normal [facility] Urine hemoglobin detection b y automated test stripOrdered By: PROVIDER TEMP on 06-19-2023 Hemoglobin Auto test strip Ql (U) Negative Negative [facility] Urine leukocyte esterase det ection by automated test stripOrdered By: PROVIDER TEMP on 06-19-2023 Leukocyte esterase Auto test strip Ql (U) Negative Negative [facility] Urine nitrite detection by a utomated test stripOrdered By: PROVIDER TEMP on 06-19-2023 Nitrite Auto test strip Ql (U) Negative Negative [facility] Urobilinogen Auto test strip (U) [Mass/Vol]Ordered By: PROVIDER TEMP on 06-19-2023 Urobilinogen (U) [Mass/Vol] Normal mg/dL Normal [facility] WBC Auto (Bld) [#/Vol]Ordere d By: PROVIDER TEMP on 06-19-2023 WBC (Bld) [#/Vol] 4.8 10*3/uL 4.1-10.5 [facility] pH Auto test strip (U)Ordere d By: PROVIDER TEMP on 06-19-2023 pH (U) 1.005 [pH] 1.001-1.03 0 [facility] pH (U) 5.5 [pH] 5.0-9.0 [facility] ECH echo transthoracicon [facility] echo transthoracic [facility] [place] [address] Echocardiogram Signed Patient: Yonatan Patel MR#: [id number] 6 : 1945 Acct:[id number] Age/Sex: 77 / M ADM Date: 03/01/23 Loc: Room: [address] [place] [address] Type: ADM INOo Attending Dr: Angely Lee DO Ordering Provider: Bobo Villagomez MD Date of Service: 03/01/23 [facility] echo transthoracic: Neuro Symptoms/Deficit Copies to: Sinan Jolly MD, [facility] Bobo Villagomez MD Weight: 188 lb [...] 03/02/23 0958 Signed By: Sinan Jolly MD, [facility] 03/02/[address] [place] [address] MR cervical spine wo conon 0 03-02-2023 MR cervical spine wo con [facility] [place] [address] MRI Report Signed Patient: Yonatan Patel MR#: [id number] 6 : 1945 Acct:[id number] Age/Sex: 77 / M ADM Date: 03/01/23 Loc: Room: [address] [place] [address] Type: ADM INOo Attending Dr: Angely Lee [...] Daisha Fernandez M.D.03/02/2023 5:11 PM Dictation Location: [place] [address] Transcribed By: MICHEL 03/02/23 171 Dictated By: Daisha Fernandez II, MD 03/02/23 1700 Signed By: 03/02/23 171 [facility] MR lumbar spine wo conon MR lumbar spine wo con [facility] [place] [address] MRI Report Signed Patient: Yonatan Patel MR#: [id number] 6 : 1945 Acct:[id number] Age/Sex: 77 / M ADM Date: 03/01/23 Loc: Room: [address] [place] [address] Type: ADM INOo Attending Dr: Angely Lee [...] Daisha Fernandez M.D.03/02/2023 5:18 PM Dictation Location: [place] [address] Transcribed By: [facility] 03/02/231717 Dictated By: Daisha Fernandez II, MD 03/02/231710 Signed By: 03/02/231717 Normal [facility] A1C with Estimated Average [place] 03-01-2023 Glucose [Mass/Vol] 123 mg/dL Normal [facility] Comment on above: Order Comment: Trevor hdez add on Result Comment: PERF ORMED BY: [place] [address] PATHOLOGIST PHOTOCOMPOSITION KEYBOARD OPERATOR HARRY MARTI M.D. Performed By: #### A 1C WT eA, LIPID #### [facility] [address] [place] [address] HbA1c (Bld) [Mass fraction] 5.9 % High 4.3-5.6 [facility] Comment on above: Order Comment: Trevor hdez add on Result Comment: Incr eased risk for diabetes: 5.7 - 6.4 diabetes: >6.4 glycemic control for adults with diabetes: <7.0 Performed By: #### A 1C WTH eA, LIPID #### [facility] [address] [place] [address] Activated partial thrombopla stin time (aPTT) in platelet poor plasma by coagulation aOrdered By: Alejo Lynn on 03-01-2023 aPTT Coag (PPP) [Time] 27.2 s 25.1-36.5 [facility] Alanine aminotransferase [En zymatic activity/volume] in Serum or PlasmaOrdered By: Alejo Lynn on 03-01-2023 ALT [Catalytic activity/Vol] 34 U/L 7-52 [facility] Albumin [Mass/volume] in Ser um or Plasma by Bromocresol green (BCG) dye binding methoOrdered By: Alejo Lynn on 03-01-2023 Albumin BCG dye [Mass/Vol] 4.4 g/dL 3.5-5.7 [facility] Alkaline phosphatase [Enzyma tic activity/volume] in Serum or PlasmaOrdered By: Alejo Lynn on 03-01-2023 ALP [Catalytic activity/Vol] 61 U/L 34-104 [facility] Aspartate aminotransferase [ Enzymatic activity/volume] in Serum or PlasmaOrdered By: Alejo Lynn on 03-01-2023 AST [Catalytic activity/Vol] 30 U/L 13-39 [facility] B-Type Natriuretic Peptideon 03-01-2023 Natriuretic peptide B (Bld) [Mass/Vol] 96.0 pg/mL Normal 5-100 [facility] Comment on above: Result Comment: PERF ORMED BY: [place] [address] PATHOLOGIST PHOTOCOMPOSITION KEYBOARD OPERATOR HARRY MARTI M.D. Performed By: #### H S TROP, CMP, CK, CBC #### [address] Basic Metabolic Panelon 02-14 Anion gap [Moles/Vol] 10.3 mmol/L Normal 6.0-15.0 [facility] Comment on above: Performed By: #### H S TROP, CMP, CK, CBC #### [facility] [address] [place] [address] Calcium [Mass/Vol] 9.7 mg/dL Normal 8.6-10.3 [facility] Comment on above: Performed By: #### H S TROP, CMP, CK, CBC #### [facility] [address] Chloride [Moles/Vol] 107 mmol/L Normal 98-107 [facility] Comment on above: Performed By: #### H S TROP, CMP, CK, CBC #### [facility] [address] [place] [address] [place] CO2 [Moles/Vol] 26.0 mmol/L Normal 21.0-31.0 [facility] Comment on above: Performed By: #### H S TROP, CMP, CK, CBC #### [facility] [address] Creatinine [Mass/Vol] 0.91 mg/dL Normal 0.70-1.30 [facility] Comment on above: Performed By: #### H S TROP, CMP, CK, CBC #### [place] [address] [place] Creatinine Clr Calc Pharmacy 76.53 [facility] Comment on above: Result Comment: PERF ORMED BY: [place] [address] PATHOLOGIST PHOTOCOMPOSITION KEYBOARD OPERATOR HARRY MARTI M.D. Performed By: #### H S TROP, CMP, CK, CBC #### [address] GFR/1.73 sq M.predicted MDRD (S/P/Bld) [Vol rate/Area] mL/min/{1.73_m2} [facility] Comment on above: Performed By: #### H S TROP, CMP, CK, CBC #### [place] [address] [place] Glucose [Mass/Vol] 106 mg/dL High 70-100 [facility] Comment on above: Result Comment: [place] Glucose Reference Range is dependent on time and content of last meal. Glucose of more than 200 mg/dL in a nonstressed, ambulatory subject supports the diagnosis of Diabetes Mellitus. ADA recommended reference range Performed By: #### H S TROP, CMP, CK, CBC #### [place] [address] [place] Potassium [Moles/Vol] 4.3 mmol/L Normal 3.5-5.1 [facility] Comment on above: Performed By: #### H S TROP, CMP, CK, CBC #### [address] [address] [place] Sodium [Moles/Vol] 139 mmol/L Normal 136-145 [facility] Comment on above: Performed By: #### H S TROP, CMP, CK, CBC #### [facility] [address] [place] [address] [place] Urea nitrogen [Mass/Vol] 16 mg/dL Normal 7-25 [facility] Comment on above: Performed By: #### H S TROP, CMP, CK, CBC #### [facility] [address] Basophils Auto (Bld) [#/Vol] Ordered By: Alejo Lynn on 03-01-2023 Basophils (Bld) [#/Vol] 0.0 10*3/uL 0.0-0.2 [facility] Basophils/100 WBC Auto (Bld) Ordered By: Alejo Lynn on 03-01-2023 Basophils/100 WBC (Bld) 0.7 % . [facility] Bilirubin Test strip Ql (U)O rdered By: Alejo Lynn on 03-01-2023 Bilirubin Ql (U) Negative Negative [facility] Bilirubin.direct [Mass/volum e] in Serum or PlasmaOrdered By: Alejo Lynn on 03-01-2023 Bilirubin.direct [Mass/Vol] 0.30 mg/dL 0.03-0.18 [facility] Bilirubin.total [Mass/volume ] in Serum or PlasmaOrdered By: Alejo Lynn on 03-01-2023 Bilirubin [Mass/Vol] 1.7 mg/dL 0.3-1.0 [facility] Comment on above: Samples from patient s who have taken Naproxen have shown spurious elevation in Total Bilirubin levels. A metabolite of Naproxen, O-desmethylnaproxen, has been shown to interfere with the Gill method for measuring Total Bilirubin. CT head stroke alert wo cono n 03-01-2023 CT head stroke alert wo con [facility] [place] [address] [place] [address] CT Scan Report Signed Patient: Yonatan Patel MR#: [id number] 6 : 1945 Acct:[id number] Age/Sex: 77 / M ADM Date: 03/01/23 Loc: ER Room: Type: [facility] ER Attending Dr: Copies to: [...] Selena Reid M.D.03/01/2023 8:13 AM Dictation Location: [place] [address] Transcribed By: [facility] 03/01/23812 Dictated By: Selena Reid MD 03/01/2307 Signed By: 03/01/23812 Normal [facility] Calcium [Mass/volume] in Ser um or PlasmaOrdered By: Alejo Lynn on 03-01-2023 Calcium [Mass/Vol] 9.7 mg/dL 8.6-10.3 [facility] Carbon dioxide, total [Moles /volume] in Serum or PlasmaOrdered By: Alejo Lynn on 03-01-2023 CO2 [Moles/Vol] 26.0 mmol/L 21.0-31.0 [facility] Chloride [Moles/volume] in S raymundo or PlasmaOrdered By: Alejo Lynn on 03-01-2023 Chloride [Moles/Vol] 107 mmol/L 98-107 [facility] Color Auto (U)Ordered By: Franco Lynn on 03-01-2023 Color (U) Yellow Yellow [facility] Complete Blood Count Auto Di ffon 03-01-2023 Basophils (Bld) [#/Vol] 0.0 10*3/uL Normal 0.0-0.2 [facility] Comment on above: Result Comment: PERF ORMED BY: [place] [address] PATHOLOGIST PHOTOCOMPOSITION KEYBOARD OPERATOR HARRY MARTI M.D. Performed By: #### H S TROP, CMP, CK, CBC #### [facility] [address] [place] [address] Basophils/100 WBC (Bld) 0.7 % Normal . [facility] Comment on above: Performed By: #### H S TROP, CMP, CK, CBC #### [facility] [address] [place] [address] Eosinophils (Bld) [#/Vol] 0.1 10*3/uL Normal 0.0-0.45 [facility] Comment on above: Performed By: #### H S TROP, CMP, CK, CBC #### [facility] [address] [place] [address] Eosinophils/100 WBC (Bld) 1.4 % Normal . [facility] Comment on above: Performed By: #### H S TROP, CMP, CK, CBC #### [facility] [address] [place] [address] Erythrocyte distribution width (RBC) [Ratio] 14.5 % Normal 12.0-14.8 [facility] Comment on above: Performed By: #### H S TROP, CMP, CK, CBC #### [facility] [address] [place] [address] Hematocrit (Bld) [Volume fraction] 43.2 % Normal 38.8-50.0 [facility] Comment on above: Performed By: #### H S TROP, CMP, CK, CBC #### [facility] [address] [place] [address] Hemoglobin (Bld) [Mass/Vol] 14.9 g/dL Normal 13.0-17.0 [facility] Comment on above: Performed By: #### H S TROP, CMP, CK, CBC #### [address] Lymphocytes (Bld) [#/Vol] 1.3 10*3/uL Normal 1.00-4.8 [facility] Comment on above: Performed By: #### H S TROP, CMP, CK, CBC #### [address] Lymphocytes/100 WBC (Bld) 23.7 % Normal . [facility] Comment on above: Performed By: #### H S TROP, CMP, CK, CBC #### [address] MCH (RBC) [Entitic mass] 29.6 pg Normal 27.5-35.2 [facility] Comment on above: Performed By: #### H S TROP, CMP, CK, CBC #### [address] MCV (RBC) [Entitic vol] 86.1 fL Normal 83.5-101 [facility] Comment on above: Performed By: #### H S TROP, CMP, CK, CBC #### [address] Mean Corpuscular HGB Conc 34.4 g/dL Normal 32.5-35.6 [facility] Comment on above: Performed By: #### H S TROP, CMP, CK, CBC #### [address] Monocytes (Bld) [#/Vol] 0.4 10*3/uL Normal 0.0-0.8 [facility] Comment on above: Performed By: #### H S TROP, CMP, CK, CBC #### [address] Monocytes/100 WBC (Bld) 17.75 % Normal 0.00-20.00 [facility] Comment on above: Performed By: #### H S TROP, CMP, CK, CBC #### [facility] [address] [place] [address] [place] Monocytes/100 WBC (Bld) 8.3 % Normal . [facility] Comment on above: Performed By: #### H S TROP, CMP, CK, CBC #### [facility] [address] Neutrophils (Bld) [#/Vol] 3.5 10*3/uL Normal 1.8-7.7 [facility] Comment on above: Performed By: #### H S TROP, CMP, CK, CBC #### [address] Neutrophils/100 WBC (Bld) 65.9 % Normal . [facility] Comment on above: Performed By: #### H S TROP, CMP, CK, CBC #### [address] NRBC% 0.3 /100{WBC} Normal 0-0.5 [facility] Comment on above: Performed By: #### H S TROP, CMP, CK, CBC #### [address] Platelet mean volume (Bld) [Entitic vol] 8.0 fL Normal 6.6-10.1 [facility] Comment on above: Performed By: #### H S TROP, CMP, CK, CBC #### [place] [address] [place] Platelets (Bld) [#/Vol] 143 10*3/uL Low 150-450 [facility] Comment on above: Performed By: #### H S TROP, CMP, CK, CBC #### [facility] [address] [place] [address] [place] RBC (Bld) [#/Vol] 5.02 10*6/uL Normal 3.90-5.60 [facility] Comment on above: Performed By: #### H S TROP, CMP, CK, CBC #### [place] [address] [place] WBC (Bld) [#/Vol] 5.4 10*3/uL Normal 4.1-10.5 [facility] Comment on above: Performed By: #### H S TROP, CMP, CK, CBC #### [facility] [address] Creatine Kinaseon 03-01-2023 CK [Catalytic activity/Vol] 178 U/L Normal 30- [facility] Comment on above: Performed By: #### H S TROP, CMP, CK, CBC #### [facility] [address] [place] [address] Creatine kinase [Enzymatic a ctivity/volume] in Serum or PlasmaOrdered By: Alejo Lynn on 03-01-2023 CK [Catalytic activity/Vol] 178 U/L [facility] Creatinine [Mass/volume] in Serum or PlasmaOrdered By: Alejo Lynn on 03-01-2023 Creatinine [Mass/Vol] 0.91 mg/dL 0.70-1.30 [facility] ECG 12 lead ECGon 03-01-2023 ECG 12 lead ECG [facility] [place] [address] [place] [address] Electrocardiograph Report Signed Patient: Yonatan Patel MR#: [id number] 6 : 1945 Acct:[id number] Age/Sex: 77 / M ADM Date: 03/01/23 Loc: Room: [address] [place] [address] Type: ADM INOo Attending Dr: Bobo Villagomez [...] longer present Confirmed by Alejo Lynn DO ([id number]) on 03/01/2023 3:12:57 PM Referred By: Electronically Signed By:Alejo Lynn DO Transcribed By: MUS Signed By Alejo Lynn DO 3 1513 Normal [facility] Eosinophils Auto (Bld) [#/Vo l]Ordered By: Alejo Lynn on 03-01-2023 Eosinophils (Bld) [#/Vol] 0.1 10*3/uL 0.0-0.45 [facility] Eosinophils/100 WBC Auto (Bl d)Ordered By: Alejo Lynn on 03-01-2023 Eosinophils/100 WBC (Bld) 1.4 % . [facility] Erythrocyte distribution wid th Auto (RBC) [Ratio]Ordered By: Alejo Lynn on 03-01-2023 Erythrocyte distribution width (RBC) [Ratio] 14.5 % 12.0-14.8 [facility] Globulin Calc (S) [Mass/Vol] Ordered By: Alejo Lynn on 03-01-2023 Globulin (S) [Mass/Vol] 2.3 g/dL [facility] Glucose [Mass/volume] in Ser um or PlasmaOrdered By: Alejo Lynn on 03-01-2023 Glucose [Mass/Vol] 106 mg/dL 70-100 [facility] Comment on above: ADA recommended refe rence rangeRandom Glucose Reference Range is dependent on time and content of last meal. Glucose of more than 200 mg/dL in a nonstressed, ambulatory subject supports the diagnosis of Diabetes Mellitus. Hematocrit Auto (Bld) [Volum e fraction]Ordered By: Alejo Lynn on 03-01-2023 Hematocrit (Bld) [Volume fraction] 43.2 % 38.8-50.0 [facility] Hemoglobin [Mass/volume] in BloodOrdered By: Alejo Lynn on 03-01-2023 Hemoglobin (Bld) [Mass/Vol] 14.9 g/dL 13.0-17.0 [facility] Hepatic Panelon 03-01-2023 Albumin [Mass/Vol] 4.4 g/dL Normal 3.5-5.7 [facility] Comment on above: Performed By: #### H S TROP, CMP, CK, CBC #### [facility] [address] Albumin/Globulin [Mass ratio] 1.9 {ratio} Normal [facility] Comment on above: Performed By: #### H S TROP, CMP, CK, CBC #### [facility] [address] ALP [Catalytic activity/Vol] 61 U/L Normal 34-104 [facility] Comment on above: Performed By: #### H S TROP, CMP, CK, CBC #### [facility] [address] ALT [Catalytic activity/Vol] 34 U/L Normal 7-52 [facility] Comment on above: Performed By: #### H S TROP, CMP, CK, CBC #### [address] AST [Catalytic activity/Vol] 30 U/L Normal 13-39 [facility] Comment on above: Performed By: #### H S TROP, CMP, CK, CBC #### [address] Bilirubin [Mass/Vol] 1.7 mg/dL High 0.3-1.0 [facility] Comment on above: Result Comment: Samp les from patients who have taken Naproxen have shown spurious elevation in Total Bilirubin levels. A metabolite of Naproxen, O-desmethylnaproxen, has been shown to interfere with the Jendrassik-Grof method for measuring Total Bilirubin. Performed By: #### H S TROP, CMP, CK, CBC #### [facility] [address] Bilirubin,Indirect 1.4 mg/dL Normal [facility] Comment on above: Performed By: #### H S TROP, CMP, CK, CBC #### [facility] [address] Bilirubin.indirect [Mass/Vol] 0.30 mg/dL High 0.03-0.18 [facility] Comment on above: Performed By: #### H S TROP, CMP, CK, CBC #### [facility] [address] Globulin (S) [Mass/Vol] 2.3 g/dL Normal [facility] Comment on above: Performed By: #### H S TROP, CMP, CK, CBC #### [facility] [address] Protein [Mass/Vol] 6.7 g/dL Normal 6.4-8.9 [facility] Comment on above: Performed By: #### H S TROP, CMP, CK, CBC #### [facility] [address] Ketones Auto test strip (U) [Mass/Vol]Ordered By: Alejo Lynn on 03-01-2023 Ketones (U) [Mass/Vol] Negative Negative [facility] Laboratory - CoagulationOrde red By: Alejo Lynn on 03-01-2023 PT Coag (PPP) [Time] 11.6 s 9.0-12.9 [facility] Leukocytes [#/volume] correc airam for nucleated erythrocytes in Blood by Automated counOrdered By: Alejo Lynn on 03-01-2023 WBC corrected for nucl RBC Auto (Bld) [#/Vol] 5.4 10*3/uL 4.1-10.5 [facility] Lipid Panelon 03-01-2023 Cholesterol [Mass/Vol] 96 mg/dL Low 140-200 [facility] Comment on above: Order Comment: Comme nt add on Result Comment: Chol less than 200 mg/dl low risk Chol 201-239 mg/dl borderline risk Chol 240 mg/dl and greater high risk Performed By: #### A 1C WTH eA, LIPID #### [facility] [address] Cholesterol in HDL [Mass/Vol] 36 mg/dL Normal 23-92 [facility] Comment on above: Order Comment: Comme nt add on Result Comment: HDL CHOL ATP-III CLASSIFICATION Cardiovascular Risk HDL > or equal to 60 mg/dL LOW HDL < 40 mg/dL HIGH Performed By: #### A 1C WTH eA, LIPID #### [facility] [address] Cholesterol.total/Chol esterol in HDL [Mass ratio] 2.7 {ratio} Normal <5.0 [facility] Comment on above: Order Comment: Comme nt add on Result Comment: PERF ORMED BY: [place] [address] PATHOLOGIST PHOTOCOMPOSITION KEYBOARD OPERATOR HARRY MARTI M.D. Performed By: #### A 1C WT Krista, LIPID #### [address] LDL Cholesterol,Calculated 39 mg/dL Normal 0-100 [facility] Comment on above: Order Comment: Comme nt add on Result Comment: LDL ATP III CLASSIFICATION LDL less than 100 mg/dL Optimal LDL 100-129 mg/dL Near or above optimal LDL 130-159 mg/dL Borderline high LDL 160-189 mg/dL High LDL greater than 189 mg/dL Very high Performed By: #### A 1C WT Krista, LIPID #### [address] Triglyceride w/Reflex 106 mg/dL Normal 0-149 [facility] Comment on above: Order Comment: Comme nt add on Result Comment: TRIG ATP III CLASSIFICATION TRIG less than 150 mg/dL Normal TRIG 150-199 mg/dL Borderline high TRIG 200-500 mg/dL High TRIG greater than 500 mg/dL Very high Standard traceable to the Center for Disease Conrtrol and Prevention (CDC) test method. Performed By: #### A 1C WT Krista, LIPID #### [address] VLDL CHOLESTEROL 21 mg/dL Normal [facility] Comment on above: Order Comment: Comme nt add on Performed By: #### A 1C WT Krista, LIPID #### [place] [address] [place] Lymphocytes Auto (Bld) [#/Vo l]Ordered By: Alejo Lynn on 03-01-2023 Lymphocytes (Bld) [#/Vol] 1.3 10*3/uL 1.00-4.8 [facility] Lymphocytes/100 WBC Auto (Bl d)Ordered By: Alejo Lynn on 03-01-2023 Lymphocytes/100 WBC (Bld) 23.7 % . [facility] MCH Auto (RBC) [Entitic mass ]Ordered By: Alejo Lynn on 03-01-2023 MCH (RBC) [Entitic mass] 29.6 pg 27.5-35.2 [facility] MCHC Auto (RBC) [Mass/Vol]Or dered By: Alejo Lynn on 03-01-2023 MCHC (RBC) [Mass/Vol] 34.4 g/dL 32.5-35.6 [facility] MCV Auto (RBC) [Entitic vol] Ordered By: Alejo Lynn on 03-01-2023 MCV (RBC) [Entitic vol] 86.1 fL 83.5-101 [facility] Monocyte distribution width [Entitic volume] in Blood by AutomatedOrdered By: Alejo Lynn on 03-01-2023 Monocyte distribution width Auto (Bld) [Entitic vol] 17.75 % 0.00-20.00 [facility] Monocytes Auto (Bld) [#/Vol] Ordered By: Alejo Lynn on 03-01-2023 Monocytes (Bld) [#/Vol] 0.4 10*3/uL 0.0-0.8 [facility] Monocytes/100 WBC Auto (Bld) Ordered By: Alejo Lynn on 03-01-2023 Monocytes/100 WBC (Bld) 8.3 % . [facility] Natriuretic peptide B [Mass/ Vol]Ordered By: Alejo Lynn on 03-01-2023 Natriuretic peptide B (Bld) [Mass/Vol] 96.0 pg/mL 5-100 [facility] Neutrophils Auto (Bld) [#/Vo l]Ordered By: Alejo Lynn on 03-01-2023 Neutrophils (Bld) [#/Vol] 3.5 10*3/uL 1.8-7.7 [facility] Neutrophils/100 WBC Auto (Bl d)Ordered By: Alejo Lynn on 03-01-2023 Neutrophils/100 WBC (Bld) 65.9 % . [facility] Nitrite Test strip Ql (U)Ord ered By: Alejo Lynn on 03-01-2023 Nitrite Ql (U) Negative Negative [facility] No Panel InformationOrdered By: Alejo Lynn on 03-01-2023 Estimated GFR (CKD-EPI) > 60.0 mL/Min [facility] Creatinine Clearance (Chem 76.53 [facility] Nucleated erythrocytes [Pres ence] in Blood by Automated countOrdered By: Alejo Lynn on 03-01-2023 Nucleated RBC Auto Ql (Bld) 0.3 /100{WBC} 0-0.5 [facility] Partial Thromboplastin Timeo n 03-01-2023 aPTT Coag (Bld) [Time] 27.2 s Normal 25.1-36.5 Fi [facility] Comment on above: Result Comment: PERF ORMED BY: [place] [address] PATHOLOGIST PHOTOCOMPOSITION KEYBOARD OPERATOR HARRY MARTI M.D. Performed By: #### H S TROP, CMP, CK, CBC #### [address] Platelet mean volume Auto (B ld) [Entitic vol]Ordered By: Alejo Lynn on 03-01-2023 Platelet mean volume (Bld) [Entitic vol] 8.0 fL 6.6-10.1 [facility] Platelet poor plasma interna tional normalized ratio (INR) by coagulation assay (relatOrdered By: Alejo Lynn on 03-01-2023 INR Coag (PPP) [Relative time] 1.0 {INR} [facility] Comment on above: INR Therapeutic Rang e [...] 03-01-2023 Platelets (Bld) [#/Vol] 143 10*3/uL 150-450 [facility] Potassium [Moles/volume] in Serum or PlasmaOrdered By: Alejo Lynn on 03-01-2023 Potassium [Moles/Vol] 4.3 mmol/L 3.5-5.1 [facility] Protein Auto test strip (U) [Mass/Vol]Ordered By: Alejo Lynn on 03-01-2023 Protein (U) [Mass/Vol] Negative Negative [facility] Protein [Mass/volume] in Ser um or PlasmaOrdered By: Alejo Lynn on 03-01-2023 Protein [Mass/Vol] 6.7 g/dL 6.4-8.9 [facility] Prothrombin Time INRon 03-01 INR Coag (PPP) [Relative time] 1.0 {INR} Normal [facility] Comment on above: Result Comment: INR Therapeutic [...] H S TROP, CMP, CK, CBC #### [facility] [address] PT Coag (PPP) [Time] 11.6 s Normal 9.0-12.9 [facility] Comment on above: Performed By: #### H S TROP, CMP, CK, CBC #### [facility] [address] RBC Auto (Bld) [#/Vol]Ordere d By: Alejo Lynn on 03-01-2023 RBC (Bld) [#/Vol] 5.02 10*6/uL 3.90-5.60 [facility] Serum or plasma albumin/glob ulin mass ratioOrdered By: Alejo Lynn on 03-01-2023 Albumin/Globulin [Mass ratio] 1.9 {ratio} [facility] Serum or plasma anion gap de terminationOrdered By: Alejo Lynn on 03-01-2023 Anion gap [Moles/Vol] 10.3 mmol/L 6.0-15.0 [facility] Serum or plasma non-glucuron idated bilirubin measurement (mass/volume)Ordered By: Alejo Lynn on 03-01-2023 Bilirubin.indirect [Mass/Vol] 1.4 mg/dL [facility] Sodium [Moles/volume] in Ser um or PlasmaOrdered By: Alejo Lynn on 03-01-2023 Sodium [Moles/Vol] 139 mmol/L 136-145 [facility] Specific gravity Auto test s trip (U) [Rel density]Ordered By: Alejo Lynn on 03-01-2023 Specific gravity (U) [Rel density] 1.014 1.001-1.03 0 [facility] Troponin I High Sensitivityo n 03-01-2023 Troponin I High Sensitivity 8.1 pg/mL Normal 0.0-20.0 [facility] Comment on above: Result Comment: PERF ORMED BY: [address] [place] [address] PATHOLOGIST PHOTOCOMPOSITION KEYBOARD OPERATOR HARRY MARTI M.D. Performed By: #### H S TROP, CMP, CK, CBC #### [facility] [address] Troponin I.cardiac [Mass/vol ume] in Serum or Plasma by Detection limit <= 0.01 ng/Ordered By: Alejo Lynn on 03-01-2023 Troponin I.cardiac DL <= 0.01 ng/mL [Mass/Vol] 8.1 pg/mL 0.0-20.0 [facility] Urea nitrogen [Mass/volume] in Serum or PlasmaOrdered By: Alejo Lynn on 03-01-2023 Urea nitrogen [Mass/Vol] 16 mg/dL 7-25 [facility] Urinalysison 03-01-2023 Appearance (U) Clear Normal Clear [facility] Comment on above: Order Comment: Name Collection Type:: Clean-Voided Midstream Performed By: #### U A #### [facility] [address] [place] [address] [place] Bilirubin,Urine Negative Normal Negative [facility] Comment on above: Order Comment: Name Collection Type:: Clean-Voided Midstream Performed By: #### U A #### [facility] [address] [place] [address] [place] Color (U) Yellow Normal Yellow [facility] Comment on above: Order Comment: Name Collection Type:: Clean-Voided Midstream Performed By: #### U A #### [facility] [address] [place] [address] Glucose Ql (U) Normal Normal Normal [facility] Comment on above: Order Comment: Name Collection Type:: Clean-Voided Midstream Performed By: #### U A #### [facility] [address] [place] [address] Ketones Ql (U) Negative Normal Negative [facility] Comment on above: Order Comment: Name Collection Type:: Clean-Voided Midstream Performed By: #### U A #### [facility] [address] [place] [address] Leukocyte esterase Test strip Ql (U) Negative Normal Negative [facility] Comment on above: Order Comment: Name Collection Type:: Clean-Voided Midstream Performed By: #### U A #### [facility] [address] [place] [address] [place] Nitrite,Urine Negative Normal Negative [facility] Comment on above: Order Comment: Name Collection Type:: Clean-Voided Midstream Performed By: #### U A #### [facility] [address] [place] [address] Occult Blood,Urine Negative Normal Negative [facility] Comment on above: Order Comment: Name Collection Type:: Clean-Voided Midstream Result Comment: PERF ORMED BY: [place] [address] PATHOLOGIST PHOTOCOMPOSITION KEYBOARD OPERATOR HARRY MARTI M.D. Performed By: #### U A #### [place] [address] [place] pH (U) 7.5 [pH] Normal 5.0-9.0 [facility] Comment on above: Order Comment: Name Collection Type:: Clean-Voided Midstream Performed By: #### U A #### [facility] [address] [place] [address] [place] Protein,Urine Negative Normal Negative [facility] Comment on above: Order Comment: Name Collection Type:: Clean-Voided Midstream Performed By: #### U A #### [facility] [address] Specificy Onyx,Urine 1.014 Normal 1.001-1.03 0 [facility] Comment on above: Order Comment: Name Collection Type:: Clean-Voided Midstream Performed By: #### U A #### [facility] [address] Urobilinogen,Urine Normal Normal Normal [facility] Comment on above: Order Comment: Name Collection Type:: Clean-Voided Midstream Performed By: #### U A #### [facility] [address] [place] [address] Urine clarity by refractomet ry automatedOrdered By: Alejo Lynn on 03-01-2023 Clarity Refractometry automated (U) Clear Clear [facility] Urine glucose measurement by automated test strip (mass/volume)Ordered By: Alejo Lynn on 03-01-2023 Glucose Auto test strip (U) [Mass/Vol] Normal mg/dL Normal [facility] Urine hemoglobin detection b y automated test stripOrdered By: Alejo Lynn on 03-01-2023 Hemoglobin Auto test strip Ql (U) Negative Negative [facility] Urine leukocyte esterase det ection by automated test stripOrdered By: Alejo Lynn on 03-01-2023 Leukocyte esterase Auto test strip Ql (U) Negative Negative [facility] Urobilinogen Auto test strip (U) [Mass/Vol]Ordered By: Alejo Lynn on 03-01-2023 Urobilinogen (U) [Mass/Vol] Normal mg/dL Normal [facility] WBC Auto (Bld) [#/Vol]Ordere d By: Alejo Lynn on 03-01-2023 WBC (Bld) [#/Vol] 5.4 10*3/uL 4.1-10.5 [facility] XR chest 1V portableon 03-[address] [facility] [place] [address] [place] [address] XRay Report Signed Patient: Yonatan Patel MR#: [id number] 6 : 1945 Acct:[id number] Age/Sex: 77 / M ADM Date: 03/01/23 Loc: Room: [address] [place] [address] Type: ADM INOo Attending Dr: Bobo Villagomez [...] Selena Reid M.D.03/01/2023 9:15 AM Dictation Location: [place] [address] Transcribed By: [facility] 03/01/23914 Dictated By: Selena Reid MD 03/01/23913 Signed By: 03/01/23914 Normal [facility] pH Auto test strip (U)Ordere d By: Alejo Lynn on 03-01-2023 pH (U) 7.5 [pH] 5.0-9.0 [facility] H Pylori Stool Ag, EIAon H Pylori Stool Ag, EIA Negative Normal Negative [facility] Comment on above: Order Comment: SOURC E OF SPECIMEN: STOOL Result Comment: Perf ormed at: - [facility] [id number] [employer] Manager: Juan Howard MD, Phone: [phone] PERFORMED BY: [address] [address] PATHOLOGIST PHOTOCOMPOSITION KEYBOARD OPERATOR HARRY MARTI M.D. Performed By: #### H S TROP, CMP, CK, CBC #### [facility] [address] CBC AUTO DIFFon 09-14-2022 BASO # 0.0 103/ul Normal 0.0-0.1 [facility] Comment on above: Performed By: #### C BC #### [facility] [address] [address] [address] Patrica Nathan Basophils/100 WBC (Bld) 0.7 % Normal 0.2-2.0 [facility] Comment on above: Performed By: #### C BC #### [facility] [address] [place] [address] [address] Patrica Nathan EO # 0.1 103/ul Normal 0.0-0.7 [facility] Comment on above: Performed By: #### C BC #### [facility] [address] [place] [address] Dr. Patrica Nathan Eosinophils/100 WBC (Bld) 1.5 % Normal 0.9-7.0 [facility] Comment on above: Performed By: #### C BC #### [facility] [address] [address] [address] Patrica Nathan Erythrocyte distribution width (RBC) [Ratio] 14.2 % Normal 11.0-15.0 [facility] Comment on above: Performed By: #### C BC #### [facility] [address] [place] [address] Dr. Patrica Nathan Hematocrit (Bld) [Volume fraction] 42.1 % Normal 42.0-54.0 [facility] Comment on above: Performed By: #### C BC #### [facility] [address] [address] [address] Patrica Nathan Hemoglobin (Bld) [Mass/Vol] 14.6 g/dL Normal 14.0-18.0 [facility] Comment on above: Performed By: #### C BC #### [facility] [address] [place] [address] Dr. Patrica Nathan IG # 0.03 10e3/ul Normal 0.00-0.03 [facility] Comment on above: Performed By: #### C BC #### [facility] [address] [place] [address] Dr. Patrica Nathan IG % 0.5 % Normal 0.0-0.5 [facility] Comment on above: Performed By: #### C BC #### [facility] [address] [place] [address] Dr. Patrica Nathan LYMPH # 1.3 103/ul Normal 1.2-3.8 [facility] Comment on above: Performed By: #### C BC #### [facility] [address] [place] [address] Dr. Patrica Nathan Lymphocytes/100 WBC (Bld) 22.4 % Normal 20.5-60.0 [facility] Comment on above: Performed By: #### C BC #### [facility] [address] [place] [address] Dr. Patrica Nathan MANUAL DIFF REQ NO Normal [facility] Comment on above: Performed By: #### C BC #### [facility] [address] [place] [address] Dr. Patrica Nathan MCH (RBC) [Entitic mass] 29.4 pg Normal 25.9-34.0 [facility] Comment on above: Performed By: #### C BC #### [facility] [address] [place] [address] Dr. Patrica Nathan MCHC (RBC) [Mass/Vol] 34.7 g/dL Normal 29.9-35.2 [facility] Comment on above: Performed By: #### C BC #### [facility] [address] [place] [address] Dr. Patrica Nathan MCV (RBC) [Entitic vol] 84.9 fL Normal 80.0-94.0 [facility] Comment on above: Performed By: #### C BC #### [facility] [address] [place] [address] Dr. Patrica Nathan MONO # 0.6 103/ul Normal 0.3-0.8 [facility] Comment on above: Performed By: #### C BC #### [facility] [address] [place] [address] Dr. Patrica Nathan Monocytes/100 WBC (Bld) 9.9 % Normal 1.7-12.0 [facility] Comment on above: Performed By: #### C BC #### [facility] [address] [place] [address] Dr. Patrica Nathan NEUT # 3.9 103/ul Normal 1.4-6.5 [facility] Comment on above: Performed By: #### C BC #### [facility] [address] [place] [address] Dr. Patrica Nathan Neutrophils/100 WBC (Bld) 65.0 % Normal 43.0-75.0 [facility] Comment on above: Performed By: #### C BC #### [facility] [address] [place] [address] Dr. Patrica Nathan Platelet mean volume (Bld) [Entitic vol] 9.6 fL Normal 9.5-13.5 [facility] Comment on above: Performed By: #### C BC #### [facility] [address] [place] [address] Dr. Patrica Nathan PLT 170 103/ul Normal 150-450 [facility] Comment on above: Performed By: #### C BC #### [facility] [address] [place] [address] Dr. Patrica Nathan RBC 4.96 106/ul Normal 4.70-6.10 [facility] Comment on above: Performed By: #### C BC #### [facility] [address] [place] [address] Dr. Patrica Nathan WBC 6.0 103/ul Normal 4.0-11.0 [facility] Comment on above: Performed By: #### C BC #### [facility] [address] [place] [address] HEAD WO CONon [...] ANGELY KENNEDY Date: 2022-09-14 10:00 Normal [facility] PROF 14(COMP METB)on 023 Albumin [Mass/Vol] 3.7 g/dL Normal 3.4-5.0 [facility] Comment on above: Performed By: #### C JV, HSTROPN #### [facility] [address] [place] [address] Dr. Patrica Nathan Albumin/Globulin [Mass ratio] 1.4 {ratio} Normal [facility] Comment on above: Performed By: #### C JV, HSTROPN #### [facility] [address] [address] [address] Patrica Nathan ALP [Catalytic activity/Vol] 83 U/L Normal 46-116 [facility] Comment on above: Performed By: #### C JV, HSTROPN #### [facility] [address] [address] [address] Patrica Nathan ALT [Catalytic activity/Vol] 57 U/L Normal 16-63 [facility] Comment on above: Performed By: #### C JV, HSTROPN #### [facility] [address] [address] [address] Patrica Nathan Anion gap [Moles/Vol] 11.9 mmol/L Normal Th [facility] Comment on above: Performed By: #### C MP, HSTROPN #### [facility] [address] [address] [address] Patrica Nathan AST [Catalytic activity/Vol] 43 U/L Critically high 15-37 [facility] Comment on above: Performed By: #### C MP, HSTROPN #### [facility] [address] [place] [address] Dr. Patrica Nathan Bilirubin [Mass/Vol] 1.1 mg/dL Critically high 0.2-1.0 [facility] Comment on above: Performed By: #### C MP, HSTROPN #### [facility] [address] [place] [address] Dr. Patrica Nathan Calcium [Mass/Vol] 9.2 mg/dL Normal 8.5-10.1 [facility] Comment on above: Performed By: #### C MP, HSTROPN #### [facility] [address] [address] [address] Patrica Nathan Chloride [Moles/Vol] 106 mmol/L Normal 98-107 [facility] Comment on above: Performed By: #### C MP, HSTROPN #### [facility] [address] [address] [address] Patrica Nathan CO2 [Moles/Vol] 28.0 mmol/L Normal 21.0-32.0 [facility] Comment on above: Performed By: #### C MP, HSTROPN #### [facility] [address] [place] [address] Dr. Patrica Nathan Creatinine [Mass/Vol] 0.92 mg/dL Normal 0.70-1.30 [facility] Comment on above: Performed By: #### C MP, HSTROPN #### [facility] [address] [address] [address] Patrica Nathan EGFR-AF KITTITIAN >60 Normal >=60 [facility] Comment on above: Performed By: #### C MP, HSTROPN #### [facility] [address] [place] [address] Dr. Patrica Nathan EGFR-NON AF KITTITIAN >60 Normal >=60 [facility] Comment on above: Performed By: #### C MP, HSTROPN #### [facility] [address] [address] [address] Patrica Nathan Globulin (S) [Mass/Vol] 2.7 g/dL Normal [facility] Comment on above: Performed By: #### C MP, HSTROPN #### [facility] [address] [place] [address] Dr. Patrica Nathan Glucose [Mass/Vol] 90 mg/dL Normal 74-106 [facility] Comment on above: Performed By: #### C MP, HSTROPN #### [facility] [address] [place] [address] Dr. Patrica Nathan Potassium [Moles/Vol] 3.9 mmol/L Normal 3.5-5.1 [facility] Comment on above: Performed By: #### C MP, HSTROPN #### [facility] [address] [place] [address] Dr. Patrica Nathan Protein [Mass/Vol] 6.4 g/dL Normal 6.4-8.2 [facility] Comment on above: Performed By: #### C MP, HSTROPN #### [facility] [address] [place] [address] Dr. Patrica Nathan Sodium [Moles/Vol] 142 mmol/L Normal 136-145 [facility] Comment on above: Performed By: #### C MP, HSTROPN #### [facility] [address] [place] [address] Dr. Patrica Nathan Urea nitrogen [Mass/Vol] 19.0 mg/dL Critically high 7.0-18.0 [facility] Comment on above: Performed By: #### C MP, HSTROPN #### [facility] [address] [place] [address] Dr. Patrica Nathan Urea nitrogen/Creatinine [Mass ratio] 20.7 mg/mg Normal [facility] Comment on above: Performed By: #### C JV, HSTROPN #### [facility] [address] [address] [address] Patrica Nathan TROPONIN, HIGH SENSITIVITYon 09-14-2022 HSTROP 5.8 pg/mL Normal 4.0-76.1 [facility] Comment on above: Result Comment: CUT- OFF POINTS HAVE BEEN ESTABLISHED BASED ON THE FOURTH UNIVERSAL DEFINITIONS OF MYOCARDIAL INFARCTION. THE UPPER REFERENCE LIMIT (URL) OF TROPONIN, DEFINED THE 99TH PERCENTILE OF cTnI DISTRIBUTION IN A REFERENCE POPULATION, HAS BEEN CONFIRMED THE DECISION THRESHOLD FOR AL DIAGNOSIS. Performed By: #### C JV, HSTROPN #### [facility] [address] [address] [address] Patrica Nathan XR CHEST 1 Von 09-14-2022 XR CHEST 1 V EXAM: XR CHEST 1 V HISTORY: Near syncope COMPARISON: None. TECHNIQUE: Single view of the chest FINDINGS: Heart size normal. No focal consolidation, pleural effusion, pulmonary congestion or pneumothorax. IMPRESSION: No acute findings. Electronically authenticated by: PASTORA DREW Date: 2022-09-14 10:01 Normal [facility] Alex 08-27-2022 L ------- Specimen: [id number] Received: 08/27/22 Status: MARIAH [place] Num: [id number] Spec Type: Surgical Subm Dr: Maryjane Christensen MD Tissues: A Gastric Biopsy (GASTRIC BX) B Colon Biopsy (ASCENDING POLYP) C Colon Biopsy (SIGMIOD POLYP) Procedures: HE/6, Gross/Micro L4/3, H PYLORI Age/ Patient Sex Location Account Attending Physician Yonatan Patel 77/M [id number] Alek Oliva MD SPEC NUM: [id number] RECD: 08/27/22 STATUS: MARIAH [place] NUM: [id number] EVE: 08/27/22 DR: Maryjane Christensen MD ENTERED: 08/27/[address] [facility] [address]: BRITTANIE TYPE: Surgical DEPT: S ORDERED: HE/6, Gross/Micro L4/3, H PYLORI ORDERED: HE/6, Gross/Micro L4/3, H PYLORI Supplemental Report Addendum 1 Entered: 08/28/22504 A. Immunohistochemical stain for Helicobacter Pylori is [...] [id number] Received: 08/27/22 Status: MARIAH Coburnraven Num: [id number] Spec Type: Surgical Subm Dr: Maryjane Christensen MD Tissues: A Gastric Biopsy (GASTRIC BX) B Colon Biopsy (ASCENDING POLYP) C Colon Biopsy (SIGMIOD POLYP) Procedures: HE/6, Gross/Micro L4/3, H PYLORI Patient: Yonatan Patel [id number] (Continued) Specimen: [id number] Received: 08/27/22 (Continued) Pathological Diagnosis (Continued) Signed (signature on file) Aaliyah Beard MD 08/28/22 1236 Specimen: [id number] Received: 08/27/22 Status: MARIAH [place] Num: [id number] Spec Type: Surgical Subm Dr: Maryjane Christensen MD Tissues: A Gastric Biopsy (GASTRIC BX) B Colon Biopsy (ASCENDING POLYP) C Colon Biopsy (SIGMIOD POLYP) Procedures: HE/6, Gross/Micro L4/3, H PYLORI Patient: Yonatan Patel [id number] (Continued) Specimen: [id number] Received: 08/27/22 (Continued) Pathological Diagnosis (Continued) C. [...] support the above pathologic diagnosis. CPT Codes 67356?3 Specimen: [id number] Received: 08/27/22 Status: MARIAH [place] Num: [id number] Spec Type: Surgical Subm Dr: Maryjane Christensen MD Tissues: A Gastric Biopsy (GASTRIC BX) B Colon Biopsy (ASCENDING POLYP) C Colon Biopsy (SIGMIOD POLYP) Procedures: HE/6, Gross/Micro L4/3, H PYLORI --------- (more content not included)... Normal [facility] MRI BRAIN WO CONon 2 MRI BRAIN [...] BERHANE HERNANDEZ Date: 2022-07-29 08:42 Normal [facility] LIPID PROFILEon 07-28-2022 CHOL-HDL RATIO NORM SEE BELOW Normal [facility] Comment on above: Result Comment: 3.3 - 4.4 LOW RISK 4.4 - 7.1 AVERAGE RISK 7.1 - 11.0 MODERATE RISK >11.0 HIGH RISK Performed By: #### C JV HSTROPN #### [facility] [address] [address] [address] Patrica Nathan Cholesterol [Mass/Vol] 97 mg/dL Normal <=200 Th [facility] Comment on above: Performed By: #### C JV HSTROPN #### [facility] [address] [address] [address] Patrica Nathan Cholesterol in HDL [Mass/Vol] 40 mg/dL Normal 40-60 [facility] Comment on above: Performed By: #### C JV HSTROPN #### [facility] [address] [address] [address] Patrica Nathan Cholesterol in LDL [Mass/Vol] 31.8 mg/dL Normal [facility] Comment on above: Performed By: #### C JV HSTROPN #### [facility] [address] [address] [address] Patrica Nathan Cholesterol.total/Chol esterol in HDL [Mass ratio] 2.4 {ratio} Normal [facility] Comment on above: Performed By: #### C JV, HSTROPN #### [facility] [address] [address] [address] Patrica Nathan HDL NORMAL > or = 60 mg/dl - LO W CARDIOVASCULAR RISK <40 mg/dl - HIGH CARDIOVASCULAR RISK Normal [facility] Comment on above: Performed By: #### C MP, HSTROPN #### [facility] [address] [place] [address] Dr. Patrica Nathan LDL CALC NORMAL SEE BELOW Normal [facility] Comment on above: Result Comment: <100 mg/dl OPTIMAL 100 - 129 mg/dl NEAR OR ABOVE OPTIMAL 130 - 159 mg/dl BORDERLINE HIGH 160 - 189 mg/dl HIGH >190 mg/dl VERY HIGH Performed By: #### C MP, HSTROPN #### [facility] [address] [place] [address] Dr. Patrica Nathan Triglyceride [Mass/Vol] 126 mg/dL Normal <=150 [facility] Comment on above: Performed By: #### C JV, HSTROPN #### [facility] [address] [place] [address] Dr. Patrica Nathan VLDL CALC 25.2 mg/dL Normal [facility] Comment on above: Performed By: #### C JV, HSTROPN #### [facility] [address] [place] [address] Dr. Patrica Nathan CBC AUTO DIFFon 07-01-2022 BASO # 0.0 103/ul Normal 0.0-0.1 [facility] Comment on above: Performed By: #### C BC #### [facility] [address] [place] [address] Dr. Patrica Nathan Basophils/100 WBC (Bld) 0.5 % Normal 0.2-2.0 [facility] Comment on above: Performed By: #### C BC #### [facility] [address] [place] [address] Dr. Patrica Nathan EO # 0.1 103/ul Normal 0.0-0.7 [facility] Comment on above: Performed By: #### C BC #### [facility] [address] [place] [address] Dr. Patrica Nathan Eosinophils/100 WBC (Bld) 2.2 % Normal 0.9-7.0 [facility] Comment on above: Performed By: #### C BC #### [facility] [address] [place] [address] Dr. Patrica Nathan Erythrocyte distribution width (RBC) [Ratio] 14.3 % Normal 11.0-15.0 [facility] Comment on above: Performed By: #### C BC #### [facility] [address] [place] [address] Dr. Patrica Nathan Hematocrit (Bld) [Volume fraction] 45.8 % Normal 42.0-54.0 [facility] Comment on above: Performed By: #### C BC #### [facility] [address] [place] [address] Dr. Patrica Nathan Hemoglobin (Bld) [Mass/Vol] 15.1 g/dL Normal 14.0-18.0 [facility] Comment on above: Performed By: #### C BC #### [facility] [address] [place] [address] Dr. Patrica Nathan IG # 0.01 10e3/ul Normal 0.00-0.03 [facility] Comment on above: Performed By: #### C BC #### [facility] [address] [place] [address] Dr. Patrica Nathan IG % 0.2 % Normal 0.0-0.5 [facility] Comment on above: Performed By: #### C BC #### [facility] [address] [place] [address] Dr. Patrica Nathan LYMPH # 1.4 103/ul Normal 1.2-3.8 [facility] Comment on above: Performed By: #### C BC #### [facility] [address] [place] [address] Dr. Patrica Nathan Lymphocytes/100 WBC (Bld) 24.0 % Normal 20.5-60.0 [facility] Comment on above: Performed By: #### C BC #### [facility] [address] [place] [address] Dr. Patrica Nathan MANUAL DIFF REQ NO Normal [facility] Comment on above: Performed By: #### C BC #### [facility] [address] [place] [address] Dr. Patrica Nathan MCH (RBC) [Entitic mass] 29.4 pg Normal 25.9-34.0 [facility] Comment on above: Performed By: #### C BC #### [facility] [address] [place] [address] Dr. Patrica Nathan MCHC (RBC) [Mass/Vol] 33.0 g/dL Normal 29.9-35.2 [facility] Comment on above: Performed By: #### C BC #### [facility] [address] [place] [address] Dr. Patrica Nathan MCV (RBC) [Entitic vol] 89.3 fL Normal 80.0-94.0 [facility] Comment on above: Performed By: #### C BC #### [facility] [address] [place] [address] Dr. Patrica Nathan MONO # 0.6 103/ul Normal 0.3-0.8 [facility] Comment on above: Performed By: #### C BC #### [facility] [address] [place] [address] Dr. Patrica Nathan Monocytes/100 WBC (Bld) 10.8 % Normal 1.7-12.0 [facility] Comment on above: Performed By: #### C BC #### [facility] [address] [place] [address] Dr. Patrica Nathan NEUT # 3.7 103/ul Normal 1.4-6.5 [facility] Comment on above: Performed By: #### C BC #### [facility] [address] [place] [address] Dr. Patrica Nathan Neutrophils/100 WBC (Bld) 62.3 % Normal 43.0-75.0 [facility] Comment on above: Performed By: #### C BC #### [facility] [address], [place] [address] Dr. Patrica Nathan Platelet mean volume (Bld) [Entitic vol] 9.7 fL Normal 9.5-13.5 [facility] Comment on above: Performed By: #### C BC #### [facility] [address] [address] [address] Patrica Nathan PLT 192 103/ul Normal 150-450 [facility] Comment on above: Performed By: #### C BC #### [facility] [address] [place], [place] [address] Dr. Patrica Nathan RBC 5.13 106/ul Normal 4.70-6.10 [facility] Comment on above: Performed By: #### C BC #### [facility] [address] [address] [address] Patrica Nathan WBC 6.0 103/ul Normal 4.0-11.0 [facility] Comment on above: Performed By: #### C BC #### [facility] [address] [place] [address] CHEST WO CONon [...] EVGENY MCCLAIN Date: 2022-07-01 07:16 Normal [facility] PROF 14(COMP METB)on 022 Albumin [Mass/Vol] 4.0 g/dL Normal 3.4-5.0 [facility] Comment on above: Performed By: #### C MP, HSTROPN #### [facility] [address] [place] [address] Dr. Patrica Nathan Albumin/Globulin [Mass ratio] 1.2 {ratio} Normal [facility] Comment on above: Performed By: #### C MP, HSTROPN #### [facility] [address] [place] [address] Dr. Patrica Nathan ALP [Catalytic activity/Vol] 80 U/L Normal 46-116 [facility] Comment on above: Performed By: #### C JV, HSTROPN #### [facility] [address] [place] [address] Dr. Patrica Nathan ALT [Catalytic activity/Vol] 30 U/L Normal 16-63 [facility] Comment on above: Performed By: #### C JV, HSTROPN #### [facility] [address] [place] [address] Dr. Patrica Nathan Anion gap [Moles/Vol] 8.5 mmol/L Normal [facility] Comment on above: Performed By: #### C MP, HSTROPN #### [facility] [address] [place] [address] Dr. Patrica Nathan AST [Catalytic activity/Vol] 26 U/L Normal 15-37 [facility] Comment on above: Performed By: #### C MP, HSTROPN #### [facility] [address] [place] [address] Dr. Patrica Nathan Bilirubin [Mass/Vol] 1.4 mg/dL Critically high 0.2-1.0 [facility] Comment on above: Performed By: #### C MP, HSTROPN #### [facility] [address] [place] [address] Dr. Patrica Nathan Calcium [Mass/Vol] 9.8 mg/dL Normal 8.5-10.1 [facility] Comment on above: Performed By: #### C JV, HSTROPN #### [facility] [address] [address] [address] Patrica Nathan Chloride [Moles/Vol] 104 mmol/L Normal 98-107 [facility] Comment on above: Performed By: #### C JV, HSTROPN #### [facility] [address] [address] [address] Patrica Nathan CO2 [Moles/Vol] 30.8 mmol/L Normal 21.0-32.0 [facility] Comment on above: Performed By: #### C JV, HSTROPN #### [facility] [address] [place] [address] Dr. Patrica Nathan Creatinine [Mass/Vol] 0.97 mg/dL Normal 0.70-1.30 [facility] Comment on above: Performed By: #### C JV, HSTROPN #### [facility] [address] [place] [address] Dr. Patrica Nathan EGFR-AF KITTITIAN >60 Normal >=60 [facility] Comment on above: Performed By: #### C JV, HSTROPN #### [facility] [address] [place] [address] Dr. Patrica Nathan EGFR-NON AF KITTITIAN >60 Normal >=60 [facility] Comment on above: Performed By: #### C JV, HSTROPN #### [facility] [address] [place] [address] Dr. Patrica Nathan Globulin (S) [Mass/Vol] 3.4 g/dL Normal [facility] Comment on above: Performed By: #### C JV, HSTROPN #### [facility] [address] [place] [address] Dr. Patrica Nathan Glucose [Mass/Vol] 110 mg/dL Critically high 74-106 [facility] Comment on above: Performed By: #### C JV, HSTROPN #### [facility] [address] [address] [address] Patrica Nathan Potassium [Moles/Vol] 4.3 mmol/L Normal 3.5-5.1 [facility] Comment on above: Performed By: #### C MP, HSTROPN #### [facility] [address] [place] [address] Dr. Patrica Nathan Protein [Mass/Vol] 7.4 g/dL Normal 6.4-8.2 [facility] Comment on above: Performed By: #### C MP, HSTROPN #### [facility] [address] [place] [address] Dr. Patrica Nathan Sodium [Moles/Vol] 139 mmol/L Normal 136-145 [facility] Comment on above: Performed By: #### C MP, HSTROPN #### [facility] [address] [place] [address] Dr. Patrica Nathan Urea nitrogen [Mass/Vol] 15.0 mg/dL Normal 7.0-18.0 [facility] Comment on above: Performed By: #### C MP, HSTROPN #### [facility] [address] [place] [address] Dr. Patrica Nathan Urea nitrogen/Creatinine [Mass ratio] 15.5 mg/mg Normal [facility] Comment on above: Performed By: #### C MP, HSTROPN #### [facility] [address] [place] [address] Dr. Patrica Nathan PROTIMEon 07-01-2022 INR Coag (PPP) [Relative time] 0.95 {INR} Normal [facility] Comment on above: Performed By: #### P T, PTT #### [facility] [address] [place] [address] Dr. Patrica Nathan INR GUIDELINES SEE BELOW Normal [facility] Comment on above: Result Comment: ODALIS RED INR: 2.0 - 3.0 CONDITIONS NOT LISTED BELOW 2.5 - 3.5 FOR PROSTHETIC HEART VALVE REPLACEMENT 2.5 - 3.5 RECURRENT THROMBOSIS Performed By: #### P T, PTT #### [facility] [address] [place] [address] Dr. Patrica Nathan PT Coag (PPP) [Time] 10.3 s Normal 9.0-11.6 [facility] Comment on above: Performed By: #### P T, PTT #### [facility] [address] [address] [address] Partica Nathan PTTon 07-01-2022 aPTT Coag (Bld) [Time] 27.1 s Normal 22.3-36.2 Th [facility] Comment on above: Performed By: #### C MP, HSTROPN #### [facility] [address] [address] [address] Patrica Nathan XR CHEST 1 Von [...] ANGELY REYNOLDS Date: 2022-07-01 06:33 Normal [facility] CT CHEST WO CONon 06-29-2022 CT [...] BERHANE HERNANDEZ Date: 2022-06-29 16:01 Normal [facility] XR RIBS RT PA Estella 2 [...] FABRICE GARRIDOH Date: 2022-06-29 15:08 Normal [facility] CBC AUTO DIFFon 05-02-2022 BASO # 0.1 103/ul Normal 0.0-0.1 [facility] Comment on above: Performed By: #### C BC #### [facility] [address] [address] [address] Patrica Nathan Basophils/100 WBC (Bld) 0.8 % Normal 0.2-2.0 [facility] Comment on above: Performed By: #### C BC #### [facility] [address] [place] [address] Dr. Patrica Nathan EO # 0.1 103/ul Normal 0.0-0.7 [facility] Comment on above: Performed By: #### C BC #### [facility] [address] [place] [address] Dr. Patrica Nathan Eosinophils/100 WBC (Bld) 1.7 % Normal 0.9-7.0 [facility] Comment on above: Performed By: #### C BC #### [facility] [address] [place] [address] Dr. Patrica Nathan Erythrocyte distribution width (RBC) [Ratio] 14.5 % Normal 11.0-15.0 [facility] Comment on above: Performed By: #### C BC #### [facility] [address] [place] [address] Dr. Patrica Nathan Hematocrit (Bld) [Volume fraction] 45.6 % Normal 42.0-54.0 [facility] Comment on above: Performed By: #### C BC #### [facility] [address] [place] [address] Dr. Patrica Nathan Hemoglobin (Bld) [Mass/Vol] 15.3 g/dL Normal 14.0-18.0 [facility] Comment on above: Performed By: #### C BC #### [facility] [address] [place] [address] Dr. Patrica Nathan IG # 0.02 10e3/ul Normal 0.00-0.03 [facility] Comment on above: Performed By: #### C BC #### [facility] [address] [place] [address] Dr. Patrica Nathan IG % 0.3 % Normal 0.0-0.5 [facility] Comment on above: Performed By: #### C BC #### [facility] [address] [place] [address] Dr. Patrica Nathan LYMPH # 1.6 103/ul Normal 1.2-3.8 [facility] Comment on above: Performed By: #### C BC #### [facility] [address] [place] [address] Dr. Patrica Nathan Lymphocytes/100 WBC (Bld) 27.0 % Normal 20.5-60.0 [facility] Comment on above: Performed By: #### C BC #### [facility] [address] [place] [address] Dr. Patrica Nathan MANUAL DIFF REQ NO Normal [facility] Comment on above: Performed By: #### C BC #### [facility] [address] [place] [address] Dr. Patrica Nathan MCH (RBC) [Entitic mass] 29.9 pg Normal 25.9-34.0 [facility] Comment on above: Performed By: #### C BC #### [facility] [address] [place] [address] Dr. Patrica Nathan MCHC (RBC) [Mass/Vol] 33.6 g/dL Normal 29.9-35.2 [facility] Comment on above: Performed By: #### C BC #### [facility] [address] [place] [address] Dr. Patrica Nathan MCV (RBC) [Entitic vol] 89.1 fL Normal 80.0-94.0 [facility] Comment on above: Performed By: #### C BC #### [facility] [address] [place] [address] Dr. Patrica Nathan MONO # 0.6 103/ul Normal 0.3-0.8 [facility] Comment on above: Performed By: #### C BC #### [facility] [address] [place] [address] Dr. Patrica Nathan Monocytes/100 WBC (Bld) 9.8 % Normal 1.7-12.0 [facility] Comment on above: Performed By: #### C BC #### [facility] [address] [place] [address] Dr. Patrica Nathan NEUT # 3.6 103/ul Normal 1.4-6.5 [facility] Comment on above: Performed By: #### C BC #### [facility] [address] [place] [address] Dr. Patrica Nathan Neutrophils/100 WBC (Bld) 60.4 % Normal 43.0-75.0 [facility] Comment on above: Performed By: #### C BC #### [facility] [address] [place] [address] Dr. Patrica Nathan Platelet mean volume (Bld) [Entitic vol] 9.3 fL Critically low 9.5-13.5 [facility] Comment on above: Performed By: #### C BC #### [facility] [address] [place] [address] Dr. Patrica Nathan PLT 183 103/ul Normal 150-450 [facility] Comment on above: Performed By: #### C BC #### [facility] [address] [place] [address] Dr. Patrica Nathan RBC 5.12 106/ul Normal 4.70-6.10 [facility] Comment on above: Performed By: #### C BC #### [facility] [address] [place] [address] Dr. Patrica Nathan WBC 6.0 103/ul Normal 4.0-11.0 [facility] Comment on above: Performed By: #### C BC #### [facility] [address] [place] [address] ABD/PELV WO W CONon 05-02 [...] EVGENY MCCLAIN Date: 2022-05-02 10:56 Normal [facility] PROF 14(COMP METB)on 022 Albumin [Mass/Vol] 4.1 g/dL Normal 3.4-5.0 [facility] Comment on above: Performed By: #### C JV HSTROPN #### [facility] [address] [address] [address] Patrica Nathan Albumin/Globulin [Mass ratio] 1.4 {ratio} Normal [facility] Comment on above: Performed By: #### C JV HSTROPN #### [facility] [address] [place] [address] Dr. Patrica Nathan ALP [Catalytic activity/Vol] 71 U/L Normal 46-116 [facility] Comment on above: Performed By: #### C JV HSTROPN #### [facility] [address] [address] [address] Patrica Nathan ALT [Catalytic activity/Vol] 48 U/L Normal 16-63 [facility] Comment on above: Performed By: #### C JV HSTROPN #### [facility] [address] [address] [address] Patrica Nathan Anion gap [Moles/Vol] 8.1 mmol/L Normal [facility] Comment on above: Performed By: #### C JV HSTROPN #### [facility] [address] [address] [address] Patrica Nathan AST [Catalytic activity/Vol] 31 U/L Normal 15-37 [facility] Comment on above: Performed By: #### C JV, HSTROPN #### [facility] [address] [address] [address] Patrica Nathan Bilirubin [Mass/Vol] 1.6 mg/dL Critically high 0.2-1.0 [facility] Comment on above: Performed By: #### C JV, HSTROPN #### [facility] [address] [address] [address] Patrica Nathan Calcium [Mass/Vol] 9.4 mg/dL Normal 8.5-10.1 [facility] Comment on above: Performed By: #### C JV, HSTROPN #### [facility] [address] [place] [address] Dr. Patrica Nathan Chloride [Moles/Vol] 105 mmol/L Normal 98-107 [facility] Comment on above: Performed By: #### C JV, HSTROPN #### [facility] [address] [address] [address] Patrica Nathan CO2 [Moles/Vol] 29.0 mmol/L Normal 21.0-32.0 [facility] Comment on above: Performed By: #### C JV, HSTROPN #### [facility] [address] [place] [address] Dr. Patrica Nathan Creatinine [Mass/Vol] 1.01 mg/dL Normal 0.70-1.30 [facility] Comment on above: Performed By: #### C JV, HSTROPN #### [facility] [address] [place] [address] Dr. Patrica Nathan EGFR-AF KITTITIAN >60 Normal >=60 [facility] Comment on above: Performed By: #### C JV, HSTROPN #### [facility] [address] [address] [address] Patrica Nathan EGFR-NON AF KITTITIAN >60 Normal >=60 [facility] Comment on above: Performed By: #### C JV, HSTROPN #### [facility] [address] [address] [address] Patrica Nathan Globulin (S) [Mass/Vol] 2.9 g/dL Normal [facility] Comment on above: Performed By: #### C MP, HSTROPN #### [facility] [address] [address] [address] Patrica Nathan Glucose [Mass/Vol] 106 mg/dL Normal 74-106 [facility] Comment on above: Performed By: #### C MP, HSTROPN #### [facility] [address] [place] [address] Dr. Patrica Nathan Potassium [Moles/Vol] 4.1 mmol/L Normal 3.5-5.1 [facility] Comment on above: Performed By: #### C MP, HSTROPN #### [facility] [address] [place] [address] Dr. Patrica Nathan Protein [Mass/Vol] 7.0 g/dL Normal 6.4-8.2 [facility] Comment on above: Performed By: #### C MP, HSTROPN #### [facility] [address] [place] [address] Dr. Patrica Nathan Sodium [Moles/Vol] 138 mmol/L Normal 136-145 [facility] Comment on above: Performed By: #### C MP, HSTROPN #### [facility] [address] [place] [address] Dr. Patrica Nathan Urea nitrogen [Mass/Vol] 18.0 mg/dL Normal 7.0-18.0 [facility] Comment on above: Performed By: #### C MP, HSTROPN #### [facility] [address] [place] [address] Dr. Patrica Nathan Urea nitrogen/Creatinine [Mass ratio] 17.8 mg/mg Normal [facility] Comment on above: Performed By: #### C MP, HSTROPN #### [facility] [address] [place] [address] Dr. Patrica Nathan TSHon 05-02-2022 TSH 2.409 uIU/mL Normal 0.358-3.74 0 [facility] Comment on above: Performed By: #### T SH #### [facility] [address], [place] [address] Dr. Patrica Nathan XR CHEST 2 Von [...] EVGENY MCCLAIN Date: 2022-05-02 07:44 Normal [facility] Covid-19 PCR (CVDTB)on 01-16 SARS-CoV-2 (COVID-19) RNA MARIANNE+probe Ql (Unsp spec) Not detected Normal NOT DETECTED [facility] Comment on above: Result Comment: This test is not yet approved or cleared by the [place] FDA. When there are no FDA-approved or cleared tests available, and other criteria are met, FDA can make tests available under an emergency access mechanism called an Emergency Use Authorization (EUA). The EUA for this test is supported by the [place] of Health and Human Service's (HHS's) declaration [...] SARS-CoV-2. Performed By: #### C VDTBH #### [facility] [address], [place] [address] Dr. Patrica Nathan Vital Signs Date Time Vital Sign Value Performing Clinician Facility 03-14-2024 10:10-0400 Body height 187.96 cm [facility] 03-14-2024 10:10-0400 Body mass index (BMI) [Ratio] 23.4 kg/m2 [facility] 03-14-2024 10:10-0400 Body weight 82.78 kg [facility] 03-14-2024 10:10-0400 Diastolic blood pressure 80 mm[Hg] [facility] 03-14-2024 10:10-0400 Heart rate 58 /min [facility] 03-14-2024 10:10-0400 Respiratory rate 12 /min [facility] 03-14-2024 10:10-0400 Systolic blood pressure 135 mm[Hg] [facility] 01-28-2024 09:07-0400 Body height 187.96 cm [facility] 01-28-2024 09:07-0400 Body mass index (BMI) [Ratio] 23.4 kg/m2 [facility] 01-28-2024 09:07-0400 Body weight 82.72 kg [facility] 01-28-2024 09:07-0400 Diastolic blood pressure 76 mm[Hg] [facility] 01-28-2024 09:07-0400 Heart rate 58 /min [facility] 01-28-2024 09:07-0400 Respiratory rate 12 /min [facility] 01-28-2024 09:07-0400 Systolic blood pressure 138 mm[Hg] [facility] 11-27-2023 08:33-0400 Body height 187.96 cm [facility] 11-27-2023 08:33-0400 Body mass index (BMI) [Ratio] 23.1 kg/m2 [facility] [facility] 11-27-2023 08:33-0400 Body weight 81.7 kg [facility] 11-27-2023 08:33-0400 Diastolic blood pressure 61 mm[Hg] [facility] 11-27-2023 08:33-0400 Heart rate 63 /min [facility] 11-27-2023 08:33-0400 Respiratory rate 12 /min [facility] 11-27-2023 08:33-0400 Systolic blood pressure 114 mm[Hg] [facility] 11-06-2023 15:24-0400 Body height 187.96 cm [facility] 11-06-2023 15:24-0400 Body mass index (BMI) [Ratio] 23.1 kg/m2 [facility] 11-06-2023 15:24-0400 Body weight 81.64 kg [facility] 11-06-2023 15:24-0400 Diastolic blood pressure 64 mm[Hg] [facility] 11-06-2023 15:24-0400 Heart rate 65 /min [facility] 11-06-2023 15:24-0400 Respiratory rate 12 /min [facility] 11-06-2023 15:24-0400 Systolic blood pressure 134 mm[Hg] [facility] 10-28-2023 11:01-0400 Body height 187.96 cm [facility] 10-28-2023 11:01-0400 Body mass index (BMI) [Ratio] 23.2 kg/m2 [facility] 10-28-2023 11:01-0400 Body weight 82.21 kg [facility] 10-28-2023 11:01-0400 Diastolic blood pressure 77 mm[Hg] [facility] 10-28-2023 11:01-0400 Heart rate 59 /min [facility] 10-28-2023 11:01-0400 Respiratory rate 12 /min [facility] 10-28-2023 11:01-0400 Systolic blood pressure 144 mm[Hg] [facility] 09-15-2023 16:00-0500 Body height 187.96 cm Cisco Ball Other [facility] 09-15-2023 16:00-0500 Body mass index (BMI) [Ratio] 23.75 kg/m2 Cisco Ball Other [employer] [facility] [employer] Other 09-15-2023 16:00-0500 Body weight 83.92 kg Cisco Ball Other [facility] [employer] Other 09-15-2023 16:00-0500 Body weight 83.91 kg [facility] 09-15-2023 16:00-0500 Diastolic blood pressure 73 mm[Hg] Cisco Ball Other [facility] 09-15-2023 16:00-0500 Respiratory rate 12 /min Cisco Ball Other [facility] [employer] Other 09-15-2023 16:00-0500 Systolic blood pressure 158 mm[Hg] Cisco Ball Other [facility] 08-28-2023 10:00-0500 Body height 187.96 cm Cisco Ball Other [facility] 08-28-2023 10:00-0500 Body mass index (BMI) [Ratio] 23.42 kg/m2 Cisco Ball Other [facility] [employer] Other 08-28-2023 10:00-0500 Body weight 82.74 kg Cisco Ball Other [facility] [employer] Other 08-28-2023 10:00-0500 Body weight 82.73 kg [facility] 08-28-2023 10:00-0500 Diastolic blood pressure 66 mm[Hg] Cisco Ball Other [facility] 08-28-2023 10:00-0500 Respiratory rate 12 /min Cisco Ball Other [facility] [employer] Other 08-28-2023 10:00-0500 Systolic blood pressure 117 mm[Hg] Cisco Ball Other [facility] 07-28-2023 13:13-0500 Blood Pressure Location Angely OCAMPO [facility] [place] 07-28-2023 13:13-0500 Diastolic blood pressure 72 mm[Hg] Angely OCAMPO [facility] [place] 07-28-2023 13:13-0500 Heart rate 72 /min Angely NILL [facility] [place] 07-28-2023 13:13-0500 Respiratory rate 16 /min Angely NILL [facility] [place] 07-28-2023 13:13-0500 Systolic blood pressure 118 mm[Hg] Angely NILL [facility] [place] 07-01-2023 10:15-0500 Body height 187.96 cm Cisco Ball Other [employer] [facility] [employer] Other 07-01-2023 10:15-0500 Body mass index (BMI) [Ratio] 23.13 kg/m2 Cisco Ball Other [employer] Other 07-01-2023 10:15-0500 Body weight 81.74 kg Cisco Ball Other [employer] Other 07-01-2023 10:15-0500 Diastolic blood pressure 70 mm[Hg] Cisco Ball Other [employer] Other 07-01-2023 10:15-0500 Respiratory rate 12 /min Cisco Ball Other [employer] Other 07-01-2023 10:15-0500 Systolic blood pressure 135 mm[Hg] Cisco Ball Other [employer] Other 06-20-2023 02:33-0400 Diastolic blood pressure 74 mm[Hg] DO Cisco Ball Work Phone: [facility] 06-20-2023 02:33-0400 Heart rate 78 /min DO Cisco Ball Work Phone: [facility] 06-20-2023 02:33-0400 Respiratory rate 16 /min DO Cisco Ball Work Phone: [facility] 06-20-2023 02:33-0400 SaO2% (BldA) [Mass fraction] 96 % DO Cisco Ball Work Phone: [facility] 06-20-2023 02:33-0400 Systolic blood pressure 158 mm[Hg] DO Cisco Ball Work Phone: [facility] 06-19-2023 20:47-0400 Body height 187.96 cm DO Cisco Ball Work Phone: [facility] 06-19-2023 20:47-0400 Body temperature 97.9 [degF] DO Cisco Ball Work Phone: [facility] 06-19-2023 20:47-0400 Body weight 80.3 kg DO Cisco Ball Work Phone: [facility] 06-17-2023 15:45-0400 Body height 187.96 cm Cisco Ball Other [facility] [employer] Other 06-17-2023 15:45-0400 Body mass index (BMI) [Ratio] 23.65 kg/m2 Cisco Ball Other [employer] Other 06-17-2023 15:45-0400 Body temperature 97.3 [degF] Cisco Ball Other [employer] Other 06-17-2023 15:45-0400 Body weight 83.55 kg Cisco Ball Other [employer] Other 06-17-2023 15:45-0400 Diastolic blood pressure 57 mm[Hg] Cisco Ball Other [employer] Other 06-17-2023 15:45-0400 Respiratory rate 12 /min Cisco Ball Other [employer] Other 06-17-2023 15:45-0400 Systolic blood pressure 128 mm[Hg] Cisco Ball Other [employer] Other 05-20-2023 08:45-0400 Body height 187.96 cm Cisco Ball Other [employer] Other 05-20-2023 08:45-0400 Body mass index (BMI) [Ratio] 23.62 kg/m2 Cisco Ball Other [employer] Other 05-20-2023 08:45-0400 Body weight 83.46 kg Cisco Ball Other [employer] Other 05-20-2023 08:45-0400 Diastolic blood pressure 82 mm[Hg] Cisco Ball Other [employer] Other 05-20-2023 08:45-0400 Respiratory rate 12 /min Cisco Ball Other [employer] Other 05-20-2023 08:45-0400 Systolic blood pressure 121 mm[Hg] Cisco Ball Other [employer] Other 04-21-2023 11:30-0400 Body height 187.96 cm Cisco Ball Other [employer] Other 04-21-2023 11:30-0400 Body mass index (BMI) [Ratio] 23.34 kg/m2 Cisco Ball Other [employer] Other 04-21-2023 11:30-0400 Body weight 82.46 kg Cisco Ball Other [employer] Other 04-21-2023 11:30-0400 Diastolic blood pressure 65 mm[Hg] Cisco Ball Other [employer] Other 04-21-2023 11:30-0400 Respiratory rate 12 /min Cisco Ball Other [facility] [employer] Other 04-21-2023 11:30-0400 Systolic blood pressure 165 mm[Hg] Cisco Ball Other [facility] [employer] Other 03-01-2023 08:00-0400 Diastolic blood pressure 82 mm[Hg] DO Cisco Ball Work Phone: [facility] 03-01-2023 08:00-0400 Heart rate 62 /min DO Cisco Ball Work Phone: [facility] 03-01-2023 08:00-0400 Respiratory rate 16 /min DO Cisco Ball Work Phone: [facility] 03-01-2023 08:00-0400 SaO2% (BldA) [Mass fraction] 96 % DO Cisco Ball Work Phone: [facility] 03-01-2023 08:00-0400 Systolic blood pressure 146 mm[Hg] DO Cisco Ball Work Phone: [facility] 03-01-2023 06:58-0400 Body height 187.96 cm DO Cisco Ball Work Phone: [facility] 03-01-2023 06:58-0400 Body weight 84.8 kg DO Cisco Ball Work Phone: [facility] 02-24-2023 08:30-0400 Body height 187.96 cm Cisco Ball Other [facility] [employer] Other 02-24-2023 08:30-0400 Body mass index (BMI) [Ratio] 24.21 kg/m2 Cisco Ball Other [facility] [employer] Other 02-24-2023 08:30-0400 Body weight 85.55 kg Cisco Ball Other [facility] [employer] Other 02-24-2023 08:30-0400 Diastolic blood pressure 67 mm[Hg] Cisco Ball Other [employer] Other 02-24-2023 08:30-0400 Respiratory rate 12 /min Cisco Ball Other [employer] Other 02-24-2023 08:30-0400 Systolic blood pressure 112 mm[Hg] Cisco Ball Other [employer] Other 11-21-2022 11:45-0400 Body height 187.96 cm Cisco Ball Other [employer] Other 11-21-2022 11:45-0400 Body mass index (BMI) [Ratio] 24.98 kg/m2 Cisco Ball Other [employer] Other 11-21-2022 11:45-0400 Body weight 88.27 kg Cisco Ball Other [employer] Other 11-21-2022 11:45-0400 Diastolic blood pressure 73 mm[Hg] Cisco Ball Other [employer] Other 11-21-2022 11:45-0400 Respiratory rate 12 /min Cisco Ball Other [employer] Other 11-21-2022 11:45-0400 Systolic blood pressure 147 mm[Hg] Cisco Ball Other [employer] Other 10-22-2022 08:30-0500 Body height 187.96 cm Cisco Ball Other [employer] Other 10-22-2022 08:30-0500 Body mass index (BMI) [Ratio] 24.73 kg/m2 Cisco Ball Other [employer] Other 10-22-2022 08:30-0500 Body weight 87.36 kg Cisco Ball Other [employer] Other 10-22-2022 08:30-0500 Diastolic blood pressure 64 mm[Hg] Cisco Ball Other [employer] Other 10-22-2022 08:30-0500 Respiratory rate 12 /min Cisco Ball Other [employer] Other 10-22-2022 08:30-0500 Systolic blood pressure 118 mm[Hg] Cisco Ball Other [employer] Other 10-07-2022 09:45-0500 Body height 187.96 cm Cisco Ball Other [employer] Other 10-07-2022 09:45-0500 Body mass index (BMI) [Ratio] 24.31 kg/m2 Cisco Ball Other [employer] Other 10-07-2022 09:45-0500 Body weight 85.91 kg Cisco Ball Other [employer] Other 10-07-2022 09:45-0500 Diastolic blood pressure 70 mm[Hg] Cisco Ball Other [employer] [facility] Other 10-07-2022 09:45-0500 Respiratory rate 12 /min Cisco Ball Other [employer] Other 10-07-2022 09:45-0500 Systolic blood pressure 122 mm[Hg] Cisco Ball Other [employer] Other 08-27-2022 10:48-0500 Diastolic blood pressure 82 mm[Hg] DO Cisco Ball Work Phone: [facility] 08-27-2022 10:48-0500 Heart rate 64 /min DO Cisco Ball Work Phone: [facility] 08-27-2022 10:48-0500 Respiratory rate 16 /min DO Cisco Ball Work Phone: [facility] 08-27-2022 10:48-0500 SaO2% (BldA) [Mass fraction] 96 % DO Cisco Ball Work Phone: [facility] 08-27-2022 10:48-0500 Systolic blood pressure 146 mm[Hg] DO Cisco Ball Work Phone: [facility] 08-27-2022 09:01-0500 Body height 187.96 cm DO Cisco Ball Work Phone: [facility] 08-27-2022 09:01-0500 Body temperature 97.8 [degF] DO Cisco Ball Work Phone: [facility] 08-27-2022 09:01-0500 Body weight 86.63 kg DO Cisco Ball Work Phone: [facility] Encounters Encounter Date Encounter Type Care Provider Facility Start: 03-14-2024 End: 03-14-2024 ambulatory [facility] [place] Work Phone: Start: 03-14-2024 End: 03-14-2024 Patient encounter procedure [facility] Work Phone: Start: 02-22-2024 End: 02-22-2024 ambulatory CHEYANNE ALBARRAN Not Available Start: 01-28-2024 End: 01-28-2024 ambulatory [facility] Work Phone: Start: 01-28-2024 End: 01-28-2024 Patient encounter procedure [facility] Work Phone: Start: 01-22-2024 Non-patient / Non-visit [facility] Work Phone: Start: 01-08-2024 End: 01-08-2024 ambulatory MIGUEL ANGEL SLAUGHTER Not Available Start: 12-14-2023 End: 12-14-2023 ambulatory [facility] Start: 11-27-2023 End: 11-27-2023 ambulatory [facility] Work Phone: Start: 11-27-2023 End: 11-27-2023 Patient encounter procedure [facility] Work Phone: Start: 11-16-2023 Non-patient / Non-visit [facility] Work Phone: Start: 11-06-2023 End: 11-06-2023 ambulatory [facility] Work Phone: Start: 11-06-2023 End: 11-06-2023 Patient encounter procedure [facility] Work Phone: Start: 10-28-2023 End: 10-28-2023 Patient encounter procedure [facility] Phys[facility] Work Phone: Start: 10-05-2023 Non-patient / Non-visit [facility] Work Phone: Start: 09-21-2023 End: 09-21-2023 ambulatory Cisco Nicholson Other [employer] Other Start: 09-21-2023 Telephone encounter Cisco Nicholson FP [facility] Start: 09-16-2023 End: 09-16-2023 ambulatory Cisco Nicholson Other [employer] Other Start: 09-16-2023 Telephone encounter Cisco Nicholson FP [facility] Start: 09-15-2023 End: 09-15-2023 ambulatory Cisco Nicholson Other [employer] Other Start: 09-15-2023 Office outpatient vi sit [address] [facility] Start: 09-15-2023 End: 09-15-2023 Patient encounter procedure [facility]- Start: 09-04-2023 End: 09-04-2023 ambulatory MIGUEL ANGEL SLAUGHTER Not Available Start: 09-02-2023 End: 09-02-2023 Patient encounter procedure Angely R NILL [facility] [place] Start: 08-30-2023 End: 08-30-2023 ambulatory Cisco Nicholson Other [employer] [facility] Other Start: 08-30-2023 Telephone encounter Cisco HANNA [facility] Start: 08-28-2023 End: 08-28-2023 ambulatory Cisco Nicholson Other [facility] Other Start: 08-28-2023 Patient encounter procedure Cisco Nicholson [facility] Start: 08-28-2023 Telephone encounter Cisco HANNA [facility] Start: 08-28-2023 End: 08-28-2023 Patient encounter procedure [facility] Work Phone: Start: 08-26-2023 ambulatory Angely R NILL Facility : [place] Start: 08-26-2023 End: 08-26-2023 Patient encounter procedure Angely R NILL [facility] [place] Start: 08-24-2023 End: 08-24-2023 ambulatory Cisco Nicholson Other [employer] Other Start: 08-24-2023 Telephone encounter Cisco HANNA [facility] Start: 08-23-2023 End: 08-23-2023 ambulatory Cisco Nicholson Other [employer] Other Start: 08-23-2023 Telephone encounter Cisco HANNA [facility] Start: 07-28-2023 End: 07-29-2023 ambulatory Angely R NILL Facility:[facility] [place] Start: 07-28-2023 End: 07-28-2023 Patient encounter procedure Angely R NILL [facility] [place] Start: 07-01-2023 End: 07-01-2023 ambulatory Cisco Nicholson Other [employer] Other Start: 07-01-2023 Transitional care manage srvc 14 day discharge Cisco Nicholson [facility] Start: 06-26-2023 ambulatory Angely NILL Facility:[facility] Start: 06-24-2023 End: 06-24-2023 ambulatory Cisco Nicholson Other [employer] Other Start: 06-24-2023 Telephone encounter Cisco Ball FP [facility] Start: 06-20-2023 End: 06-22-2023 Evaluation and management of inpatient [place] Facility:[facility] Start: 06-20-2023 Evaluation and management of inpatient DO Cisco Nicholson Work Phone: [facility] Work Phone: Start: 06-20-2023 observation encounter DO Shaji Nicholson Work Phone: [facility] Work Phone: Start: 06-19-2023 End: 06-19-2023 ambulatory Cisco Nicholson Other [employer] Other Start: 06-19-2023 Telephone encounter Cisco Ball FP [facility] Start: 06-18-2023 End: 06-18-2023 ambulatory Cisco Abbe Other [facility] Other Start: 06-18-2023 Telephone encounter Cisco Ball FP [facility] Start: 06-17-2023 End: 06-17-2023 ambulatory Cisco Ball Other [facility] [employer] Other Start: 06-17-2023 Office outpatient vi sit 15 minutes Cisco Ball [facility] Start: 06-17-2023 Telephone encounter Cisco Ball FP [facility] Start: 06-02-2023 End: 06-02-2023 ambulatory Cisco Ball Other [facility] [employer] Other Start: 06-02-2023 Telephone encounter Cisco Nicholson FP [facility] Start: 05-20-2023 End: 05-20-2023 ambulatory Cisco Nicholson Other [facility] [employer] Other Start: 05-20-2023 Office outpatient vi sit 25 minutes Cisco Abbe [facility] Start: 05-11-2023 End: 05-11-2023 ambulatory Cisco Nicholson Other [facility] [employer] Other Start: 05-11-2023 Telephone encounter Cisco Nicohlson FP [facility] Start: 04-27-2023 End: 04-27-2023 ambulatory Cisco Nicholson Other [facility] Other Start: 04-27-2023 Telephone encounter Cisco Nicholson FP [facility] Start: 04-23-2023 End: 04-23-2023 ambulatory Cisco Nicholson Other [facility] [employer] Other Start: 04-23-2023 Telephone encounter Cisco Nicholson FP [facility] Start: 04-21-2023 End: 04-21-2023 ambulatory Cisco Nicholson Other [employer] Other Start: 04-21-2023 Office outpatient vi sit 25 minutes Cisco Nicholson [facility] Start: 03-16-2023 End: 03-16-2023 ambulatory Cisco Nicholson Other [facility] [employer] Other Start: 03-16-2023 Telephone encounter Cisco Ball FP [facility] Start: 03-04-2023 Telephone encounter Cisco Nicholson FP [facility] Start: 03-04-2023 End: 03-04-[address] Cisco Nicholson [facility] Other Start: 03-03-2023 End: 03-03-2023 ambulatory Cisco Nicholson Other [facility] Other Start: 03-03-2023 Telephone encounter Cisco Nicholson FP [facility] Start: 03-01-2023 End: 03-02-[address] Cisco Nicholson Facility:[id number] Start: 03-01-2023 Evaluation and management of inpatient DO Cisco Nicholson Work Phone: [facility] Work Phone: Start: 03-01-2023 observation encounter DO Shaji Nicholson Work Phone: [facility] Work Phone: Start: 02-24-2023 End: 02-24-2023 ambulatory Cisco Nicholson Other [employer] Other Start: 02-24-2023 Office outpatient vi sit 25 minutes Cisco Abbe [facility] Start: 01-20-2023 End: 01-20-2023 ambulatory Cisco Nicholson Other [employer] Other Start: 01-20-2023 Telephone encounter Cisco HANNA [facility] Start: 11-21-2022 End: 11-21-2022 ambulatory Cisco Nicholson Other [employer] Other Start: 11-21-2022 Office outpatient vi sit 15 minutes Cisco Ball [facility] Start: 10-22-2022 End: 10-22-2022 ambulatory Cisco Nicholson Other [employer] Other Start: 10-22-2022 Office outpatient vi sit 25 minutes Cisco Nicholson [facility] Start: 10-12-2022 End: 10-12-2022 ambulatory Cisco Nicholson Facility:[facility] Start: 10-12-2022 End: 10-12-2022 ambulatory DO Cisco Abbe Work Phone: [facility] Work Phone: Start: 10-12-2022 End: 10-12-2022 Patient encounter procedure DO Cisco Nicholson Work Phone: [facility] [place] Work Phone: Start: 10-07-2022 End: 10-07-2022 ambulatory Cisco Nicholson Other [employer] Other Start: 10-07-2022 Office outpatient vi sit 15 minutes Cisco Nicholson [facility] Start: 09-14-2022 End: 09-14-[address] CISCO NICHOLSON Facility:[facility] Start: 09-08-2022 End: 09-08-2022 ambulatory Imad Asaad Other [employer] Other Start: 09-08-2022 Telephone encounter Imad Asaad [facility] Start: 09-05-2022 End: 09-05-2022 ambulatory Cisco Nicholson Other [facility] Other Start: 09-05-2022 Telephone encounter Cisco [facility] Start: 09-03-2022 End: 09-03-2022 ambulatory Imad Asaad Other [facility] Other Start: 09-03-2022 Telephone encounter Imad Asaad [facility] Start: 09-01-2022 End: 09-01-2022 ambulatory Imad Asaad Other [employer] Other Start: 09-01-2022 Telephone encounter Imad Asaad [facility] Start: 08-27-2022 Telephone encounter Stalin Fletcher [facility] Start: 08-27-2022 End: 08-27-2022 ambulatory Cisco Nicholson Facility:[facility] Start: 08-27-2022 End: 08-27-2022 Admission to same day surgery center DO Cisco Nicholson Work Phone: [facility] Work Phone: Start: 08-27-2022 End: 08-27-2022 ambulatory DO Cisco Nicholson Work Phone: [facility] Work Phone: Start: 08-22-2022 End: 08-22-2022 ambulatory Imad Asaad Other [employer] Other Start: 08-22-2022 Telephone encounter Imad Asaad [facility] Start: 08-20-2022 End: 08-20-2022 ambulatory Cisco Nicholson Other [employer] Other Start: 08-20-2022 Telephone encounter Cisco Nicholson [facility] Start: 08-19-2022 End: 08-19-2022 ambulatory Cisco Nicholson Other [employer] Other Start: 08-19-2022 Telephone encounter Cisco Nicholson [facility] Start: 07-28-2022 End: 07-29-[address] [...] SARS-CoV-2, Influenza & RSV (PCR) DO Juan conway Abbe Work Phone: Start: 03-01-2023 CT of head without contrast DO Cisco Nicholson Work Phone: Start: 03-01-2023 Plain chest X-ray DO Cisco Nicholson Work Phone: Start: 08-27-2022 Esophagogastroduodenoscopy DO Cisco B all Work Phone: Start: 08-27-2022 Colonoscopy Angely OCAMPO Start: 08-27-2022 Esophagogastroduodenoscopy Angely OCAMPO Start: 07-28-2022 PSA screening MIGUEL ANGEL SLAUGHTER Comment on above: Performed By: #### [facility] #### [facility] [address] [address] [address] Patrica Nathan Cardiac catheterization Renato OCAMPO History of operative procedure on shoulder Angely OCAMPO Comment on above: x3 Repair of right inguinal hernia Angely OCAMPO Plan of Treatment Date Care Activity Detail Author Start: 06-20-2023 Plain chest X-ray XR chest 2V* [facility] Start: 06-20-2023 XR Chest 2 Views [facility] Start: 06-20-2023 Hospital admission [facility] Start: 06-20-2023 [facility] Start: 06-20-2023 CT of head without contrast CT head/brain wo con [facility] Start: 06-20-2023 CT Unspecified body region WO contrast [facility] Start: 03-01-2023 Physical therapy procedure [facility] Start: 03-01-2023 Referral to occupati onal therapist [facility] Start: 03-01-2023 Referral to neurologist [facility] Start: 03-01-2023 Hospital admission [facility] Start: 03-01-2023 [facility] Start: 08-27-2022 [facility] Bacteria identified in Urine by Culture [facility] Helicobacter pylori Ag [Presence] in Stool by Immunoassay [facility] Patient Education Colon Polypectomy (DC) [facility] Work Phone: [facility] Immunizations Immunization Date Immunization Notes Care Provider Fa cility 07-01-2023 influenza virus vaccine, unspecified formulation [facility] 07-01-2023 influenza, high dose seasonal, preservative-free Cisco Nicholson Other [employer] [facility] [employer] Other 07-04-2022 SARS-CoV-2 (COVID-19 ) [id number] Angely OCAMPO [facility] 06-05-2022 influenza virus vaccine, split virus (incl. purified surface antigen) Cisco Nicholson Other [employer] [facility] [employer] Other 06-05-2022 influenza virus vaccine, unspecified formulation [facility] 03-28-2022 diphtheria, tetanus toxoids and acellular pertussis vaccine, unspecified formulation Cisco Nicholson Other [facility] 11-16-2021 SARS-CoV-2 mRNA ([id number] ose) vaccine Angely OCAMPO [facility] 06-28-2021 influenza virus vaccine, split virus (incl. purified surface antigen) Cisco Nicholson Other [facility] [employer] Other 06-28-2021 influenza virus vaccine, unspecified formulation [facility] 05-18-2021 SARS-CoV-2 (COVID-19 ) mRNA BNT-162b2 vax Angely OCAMPO [facility] Comment on above: Result Comment: 2022: [id number] 10-06-2020 SARS-CoV-2 (COVID-19 ) mRNA BNT-162b2 vax Angely OCAMPO [facility] Comment on above: Result Comment: 2022: [id number] 09-15-2020 COVID-19 Vaccine Pfizer - Documentation Purposes Only Cisco Nicholson Other [facility] Comment on above: Result Comment: 2022: [id number] 05-30-2020 influenza virus vaccine, split virus (incl. purified surface antigen) Cisco Nicholson Other [employer] Other 05-30-2020 influenza virus vaccine, unspecified formulation [facility] 06-01-2019 influenza virus vaccine, split virus (incl. purified surface antigen) Cisco Nicholson Other [facility] [employer] Other 06-01-2019 influenza virus vaccine, unspecified formulation [facility] 06-09-2018 influenza virus vaccine, split virus (incl. purified surface antigen) Cisco Nicholson Other [employer] Other 06-09-2018 influenza virus vaccine, unspecified formulation [facility] 05-14-2017 tetanus and diphther ia toxoids, adsorbed, preservative free, for adult use (5 Lf of tetanus toxoid and 2 Lf of diphtheria toxoid) Cisco Nicholson Other [facility] 05-26-2016 influenza virus vaccine, split virus (incl. purified surface antigen) Cisco Nicholson Other [facility] [employer] Other 05-26-2016 influenza virus vaccine, unspecified formulation [facility] 11-27-2015 pneumococcal conjuga te vaccine, 13 valent Cisco Nicholson Other [facility] 05-30-2015 influenza virus vaccine, split virus (incl. purified surface antigen) Cisco Nicholson Other [facility] [employer] Other 05-30-2015 influenza virus vaccine, unspecified formulation [facility] 06-14-2013 pneumococcal polysaccharide vaccine, 23 valent Cisco Nicholson Other [facility] 05-23-2013 tetanus and diphther ia toxoids, adsorbed, preservative free, for adult use (5 Lf of tetanus toxoid and 2 Lf of diphtheria toxoid) Cisco Nicholson Other [facility] NEGATED: Highlighted row has not occurred!07-28-2023 influenza virus vaccine, unspecified formulation Angely OCAMPO [facility] [place] Payers Date Payer Category Payer Self-pay 1961 Medicare [id number] 1961 Unknown [id number] 1945 Unknown [id number] 2.16.84 0.1.064329.3.579.2.593 1945 Unknown [id number] 2.16.84 0.1.975090.3.579.2.593 1943 Unknown [id number] 2.16.84 0.1.990980.3.579.2.593 1943 Unknown [id number] 2.16.84 0.1.343830.3.579.2.593 1943 Unknown [id number] 2.16.84 0.1.651062.3.579.2.593 1943 Unknown [id number] 2.16.84 0.1.424077.3.579.2.593 1943 Unknown [id number] 2.16.84 0.1.829070.3.579.2.593 1943 Unknown [id number] 2.16.84 0.1.688606.3.579.2.593 1943 Unknown [id number] 2.16. 840.1.114812.3.579.2.356 1943 Unknown [id number] 2.16.8 40.1.738844.3.579.2.727 1943 Unknown [id number] 2.16.8 40.1.307625.3.579.2.727 1943 Unknown [id number] 2.16.84 0.1.763682.3.579.2.1259 1943 Unknown [id number] 2.16.84 0.1.614790.3.579.2.1259 1943 Unknown [id number] 2.16.84 0.1.482757.3.579.2.1259 1943 Unknown [id number] 2.16.84 0.1.856964.3.579.2.1259 Unknown [id number] 2.16.8 40.1.379026.3.579.2.531 Unknown [id number] 2.16.8 40.1.954894.3.579.2.531 Unknown [id number] 2.16.8 40.1.670957.3.579.2.531 Unknown [id number] 2.16.8 40.1.051702.3.579.2.531 Social History Date Type Detail Facility Tobacco smoking stat [facility] Unknown if ever smoked [facility] Work Phone: Start: 1945 Sex Assigned At Male F [facility] Sex Assigned At [facility] Start: 03-01-2023 End: 06-20-2023 Tobacco smoking status ORIS Ex-smoker (finding) [facility] Tobacco smoking status Never [facility] [place] Goals Date Patient Goal Desired Activity /State Functional Status Date Assessment Result Facility 07-28-2023 Functional Status N/A General [facility] [place] Clinical Notes 03-20-2022 to 12-14-2023 Note Date & Type Note Facility 12-14-2023 Note [facility] Note Chief Complaint: Patient [...] blood pressure had been low and Dr. Nicholson wanted to stop metoprolol. He was also [...] 5. Follow up with me in the [facility] in 1 to 2 months. 6. [...] E78.2: Mixed hyperlipidemia 3. Coronary arteriosclerosis in [place] artery - Continue medications as prescribed including aspirin, Lipitor, metoprolol I25.10: Atherosclerotic heart disease of [place] coronary artery without angina pectoris metoprolol tartrate 25 mg tablet - TAKE ONE-HALF (more content not included)... [facility] 09-16-2023 Evaluation note Encounter Date Diagnosis Assessment Notes Aug, GREYSON (generalized anxiety disorder) (ICD-10 - F41.1) [facility] Other 01-30-2024 Evaluation note* Encounter Date Diagnosis [...] treatment Referred and scheduled w/ Neuropsychiatric testing [facility] Other 01-12-2024 Evaluation note* Encounter Date Diagnosis [...] Denies dysuria or hematuria PSA next OV [facility] Other [id number] NoteChief Complaint consultation for left inguinal hernia [...] Use:. Cigarettes, 2per day. (more content not included)...[facility] Comment: Electronically Signed By: TOO TEJADA, Angely Daniels\Date and Time Signed: 07/28/23 20:29 [id number] Evaluation note * Encounter Date Diagnosis Assessment [...] Fall precuations. Discussed tapering dose of Gabapentin [facility] Other 11-02-2023 Evaluation note* Encounter Date Diagnosis Assessment Notes Treatment Notes Treatment Clinical Notes Jun, COVID-19 (ICD-10 - U07.1) [facility] Other 11-01-2023 Evaluation note* Encounter Date Diagnosis [...] or drinking prior to bedtime. Weight loss. [facility] Other 10-04-2023 Evaluation note* Encounter Date Diagnosis [...] now. Recheck in month, consider Neurology referral [facility] Other 09-25-2023 Evaluation note* Encounter Date Diagnosis Assessment Notes Treatment Notes Treatment Clinical Notes Apr, COVID (ICD-10 - U07.1) [facility] Other 09-07-2023 Evaluation note* Encounter Date Diagnosis Assessment Notes Treatment Notes Treatment Clinical Notes Apr, Right lower quadrant abdominal pain (ICD-10 - R10.31) [facility] Other 09-05-2023 Evaluation note* Encounter Date Diagnosis [...] a trip to ER for IV hydration. [facility] Other 07-31-2023 Evaluation note* Encounter Date Diagnosis Assessment Notes Treatment Notes Treatment Clinical Notes Feb, Primary insomnia (ICD-10 - F51.01) [facility] Other 07-18-2023 Evaluation note* Encounter Date Diagnosis Assessment Notes Treatment Notes Treatment Clinical Notes Feb, Peripheral polyneuropathy (ICD-10 - G62.9) [facility] Other 07-11-2023 Evaluation note* Encounter Date Diagnosis [...] Healtlhy diet, exercise and proper sleep routine [facility] Other 06-06-2023 Evaluation note* Encounter Date Diagnosis Assessment Notes Treatment Notes Treatment Clinical Notes Jan, Peripheral polyneuropathy (ICD-10 - G62.9) [facility] Other 04-07-2023 Evaluation note* Encounter Date Diagnosis [...] continue exercise to achieve/maintain a normal BMI. [facility] Other 03-08-2023 Evaluation note* Encounter Date Diagnosis [...] in remission (ICD-10 - F17.211) Continue abstinence [facility] Other 02-21-2023 Evaluation note* Encounter Date Diagnosis [...] Fall precautions. Inspect feet daily for cuts. [facility] Other 01-18-2023 Evaluation note* Encounter Date Diagnosis Assessment Notes Treatment Notes Treatment Clinical Notes Aug, Helicobacter pylori (H. pylori) (ICD-10 - A04.8) [facility] [employer] Other 01-11-2023 History and physical note Author Maryjane Christensen [facility] August 27, 2022 10:16am Note Date/Time August 27, 2022 1 0:16am [facility] [address] [place] [address] Gastroenterology H&P Signed Patient: Yonatan Patel MR#: [id number] : 1945 Acct:[id number] Age/Sex: 77 / M Adm Date: 3 Loc: Room: Type: [facility] Attending Dr: Alek Oliva MD Copies to: [...] signed by Maryjane Christensen MD> 08/27/22 1016 [facility] Work Phone: [phone] 396-243401-11-2023 Procedure [facility]01-11-2023 Procedure [facility]01-11-2023 Procedure [facility]01-04-2023 Evaluation note* Encounter Date Diagnosis Assessment Notes Treatment Notes Treatment Clinical Notes Aug, Primary insomnia (ICD-10 - F51.01) [facility] Other 08-04-2022 NoteHISTORY AND PHYSICAL EXAMINATION Date:03/19/2022 [...] doing so in the near future. 3. [id number] patient was briefed in the office and [...] and go forward with this elective procedure.[id number] NoteOPERATIVE NOTE OPERATION DATE: 03/20/2022 SURGEON: Miguel [...] ensuring mobility, phacoemulsification was performed in a xptqgge-byh-siwlqw-type fashion. After all nuclear material had been [...] and after satisfaction could be achieved, the clerical production worker and the gonioprism were removed from the [...] up the following day for postoperative care.[facility] Author Berhane Trammell [facility] March 01, 2023 2:24pm Note Date/Time March 01, 2023 2:24 pm [facility] [address] [place] [address] Neurology Consult Note Signed Patient: Yonatan Patel MR#: [id number] : 1945 Acct:[id number] Age/Sex: 77 / M Adm Date: 3 Loc: Room: [address] [place] [address] Type: ADM INOo Attending Dr: Bobo Villagomez MD Copies to: DO Bobo Adler MD Steven Benedict, MD~ HPI Consult Date: 03/01/23 Parts Chaser: Berhane Trammell MD Reason for consult: Leg [...] Selena Reid M.D.03/01/2023 9:15 AM Dictation Location: [place] [address] 03/01/23 07:02 IMPRESSION: ATROPHY AND CHRONIC MICROVASCULAR CHANGES. NO DEFINITE ACUTE INTRACRANIAL ABNORMALITY. FOLLOW-UP IS RECOMMENDED, SYMPTOMS WARRANT. COMMENT: Preliminary report was provided at 0730 hours. Impression dictated by: Selena Reid M.D.03/01/2023 8:13 AM Dictation Location: [place] [address] Therapy Recommendations Therapy Recommendations: OT Recommendations OT [...] signed by MD Berhane Trammell> 03/01/23 1424 [facility] Work Phone: Discharge summary Author Angely Lee [facility] March 02, 2023 5:49pm Note Date/Time March 02, 2023 5:43 pm [facility] [address] [place] [address] Discharge Summary Signed Patient: Yonatan Patel MR#: [id number] : 1945 Acct:[id number] Age/Sex: 77 / M Adm Date: 3 Loc: Room: [address] [place] [address]: Angely Lee DO Copies to: [...] <Electronically signed by Angely Lee DO> 03/02/23 5552 [facility] Work Phone: Evaluation + Plan note No data available for this section General Surgery [place] evaluation + Plan note Future Appointments Appointment Date:09/02/2023 02:40:00 PM Scheduled Provider:Angely OCAMPO MD Location:[facility] Appointment Type: Post Op 15 General Surgery [place] evaluation noteNo assessment information available [facility] Work Phone: evaluation noteNo InformationNort SEWORKS Other evaluation note* Diagnosis Onset Date Resolution Status Bilateral leg pain acute Numbness of left hand acute [facility] Work Phone: evaluation note* Diagnosis Onset Date Resolution Status Adverse drug effect acute Altered mental status acute COVID acute Hypertension acute Lab test positive for detection of COVID-19 virus acute Neuropathy acute [facility] Work Phone: evaluation note* Diagnosis Onset Date Resolution Status GREYSON (generalized anxiety disorder) acute GERD (gastroesophageal reflux disease) acute Hypercholesteremia acute Hypertension acute Peripheral polyneuropathy ac [place] Primary insomnia acute [facility] Work Phone: evaluzgnta note* Diagnosis Onset Date Resolution Status GREYSON (generalized anxiety disorder) acute GERD (gastroesophageal reflux disease) acute Hypercholesteremia acute Hypertension acute Peripheral polyneuropathy ac [place] Primary insomnia acute GREYSON (generalized anxiety disorder) acute Hypertension acute Irritable bowel syndrome with constipation acute Acute prostatitis noneactive ASHD (arteriosclerotic heart disease) acute GREYSON (generalized anxiety disorder) acute Hypercholesteremia acute Hypertension acute Irritable bowel syndrome with constipation acute Peripheral polyneuropathy ac [facility] Work Phone: evaluation note* Diagnosis Onset Date Resolution Status GREYSON (generalized anxiety disorder) acute Hypertension acute Irritable bowel syndrome with constipation acute Acute prostatitis noneactive ASHD (arteriosclerotic heart disease) acute GREYSON (generalized anxiety disorder) acute Hypercholesteremia acute Hypertension acute Irritable bowel syndrome with constipation acute Peripheral polyneuropathy ac [facility] Work Phone: evaluation note* Diagnosis Onset Date Resolution Status Ascending aortic aneurysm ac [place] ASHD (arteriosclerotic heart disease) acute GREYSON (generalized anxiety disorder) acute Hypercholesteremia acute Hypertension acute Irritable bowel syndrome with constipation acute Peripheral polyneuropathy ac [place] Abdominal pain acute Benign prostatic hyperplasia with lower urinary tract symptoms acute Polyuria acute [facility] Work Phone: History and physical note Author Bobo Villagomez [facility] March 01, 2023 9:50am Note Date/Time March 01, 2023 9:50 am [facility] [address] [place] [address] Hospitalist H&P Signed Patient: Yonatan Patel MR#: [id number] : 1945 Acct:[id number] Age/Sex: 77 / M Adm Date: 3 Loc: Room: [address] [place] [address] Type: ADM INOo Attending Dr: Bobo Villagomez [...] except as mentioned elsewhere in the documentation [facility] Medical History Cataract Hypercholesteremia Hypertension Surgical History [...] % (Auto) 23.7 % (.) 03/01/23 07:06 Denali % (Auto) 8.3 % (.) 03/01/23 07:06 Eos % (Auto) 1.4 % (.) 03/01/23 07:06 Baso % (Auto) 0.7 % (.) 03/01/23 07:06 Nucleat RBC Rel Count 0.3 /100 WBC (0-0.5) 03/01/23 07:06 Neut # (Auto) 3.5 x10E3/uL (1.8-7.7) 03/01/23 07:06 Lymph # (Auto) 1.3 x10E3/uL (1.00-4.8) 03/01/23 07:06 Denali # (Auto) 0.4 x10E3/uL (0.0-0.8) 03/01/23 07:06 [...] pH 7.5 (5.0-9.0) 03/01/23 07:49 Ur Specific Onyx 1.014 (1.001-1.030) 03/01/23 07:49 Urine Protein Negative [...] signed by Bobo Villagomez MD> 03/01/23 0950 [facility] Work Phone: [place] general Narrative - Reported* Type Description Date Medical History hypercholesterolemia Medical History hypertension Medical History anxiety Medical History Esophageal reflux Medical History glaucoma Medical History neuropathy Surgical History heart catheterization Surgical History shoulder surgery Surgical History colonoscopy with polyp resectio n 08/27/21 Surgical History EGD 08/27/21 Hospitalization History see above [facility] Other Hiszvxz general Narrative - Reported* Type Description Date Medical History hypercholesterolemia Medical History hypertension Medical History anxiety Medical History Esophageal reflux Medical History glaucoma Medical History neuropathy Surgical History heart catheterization Surgical History shoulder surgery Surgical History colonoscopy with polyp resectio n 08/27/22 Surgical History EGD 08/27/22 Hospitalization History see above [facility] Other [place]iskxiu general Narrative - Reported* Type Description Date Medical History hypercholesterolemia Medical History hypertension Medical History anxiety Medical History Esophageal reflux Medical History glaucoma Medical History neuropathy Surgical History heart catheterization Surgical History shoulder surgery Surgical History colonoscopy with polyp resectio n 08/27/22 Surgical History EGD 08/27/22 Surgical History Left Inguinal Hernia Repair 1/2 024 Hospitalization History see above [facility] Other spital Discharge instructions Additional Instructions DISCHARGE INSTRUCTIONS FOR [...] NOT operate machinery such as power tools, fabrikn mowers, snow blowers, sewing machines, etc. for [...] follow up with PCP - Office number [phone]. [facility] Work Phone: Hospital Discharge instructions No data available for this section General Surgery [place] Progress note Author Berhane Trammell [facility] March 02, 2023 3:27pm Note Date/Time March 02, 2023 3:23 pm [facility] [address] [place] [address] Neurology Progress Note Signed Patient: Yonatan Patel MR#: [id number] : 1945 Acct:[id number] Age/Sex: 77 / M Adm Date: 3 Loc: Room: [address] [place] [address] Type: ADM INOo Attending Dr: Angely Lee [...] signed by MD Berhane Trammell> 03/02/23 1527 [facility] Work Phone: Progress note No data available for this section General Surgery [place] Reason for referral (narrative)* Reason Referral for left in direct inguinal hernia Diagnosis 1 Indirect left inguin al hernia (K40.90) Referral Organization [facility] Referring Provider First Name Cisco Referring Provider Last Name Abbe Referring Provider Specialty Internal [place] dicine Referred Organization [facility] Referred Provider Angely Ocampo Referred Address [address] [place] Referred Provider Specialty Surgery Referral Priority Urgent General Notes Mr. Patel has a left indirect inguinal hernia w/ intermittent episodes of increased pain, abdominal distention and nausea. He has experienced 3-4 of these episodes in the past 2 weeks, with increased intensity and duration of pain. A recent episode was associated w/ a transient fever and chills. [facility] Other Reason for visit NarrativeERROR/Gastro referral issue [facility] Other Chief Complaint and Reason for Visit [...] Irritable bowel syndrome with constipation Peripheral polyneuropathy Chief Complaint bowel problems 3 month follow up 3 MONTH FOLLOW UP Reason for Visit GREYSON (generalized anx iety disorder) Hypertension Irritable bowel syndrome with constipation Acute prostatitis ASHD (arteriosclerotic heart disease) GREYSON (generalized anxiety disorder) Hypercholesteremia Hypertension Irritable bowel syndrome with constipation Peripheral polyneuropathy Chief Complaint 3 MONTH FOLLOW UP stomach pain Reason for Visit Ascending aortic ane urysm ASHD (arteriosclerotic heart disease) GREYSON (generalized anxiety disorder) Hypercholesteremia Hypertension Irritable bowel syndrome with constipation Peripheral polyneuropathy Abdominal pain Benign prostatic hyperplasia with lower urinary tract symptoms Polyuria Family History Relationship Condition Age at Onset [...] Unknown family member Unknown Not Specified Unknown Relationship Condition Age at Onset Recorded Date/T oli father Myocardial infarction Unknown family member Myocardial infarction Unknown mother Malignant neoplasm Unknown brother Malignant neoplasm Unknown Myocardial infarction Unknown Diabetes mellitus Unknown Cerebrovascular accident (CVA) Unknown father Unknown family member Unknown mother Unknown Advance Directives Advance Directive Response Recorded [...] Care Provide r, Attending Provider Active Start: January 22, 2024 Team Status: Inactive Member Role Status Dates Cisco Nicholson DO Primary Care Provide r, Attending Provider Active Start: January 28, 2024 End: January 28, 2024 Team Status: Inactive Member Role Status Dates Cisco Ball , DO Primary Care Provide r, Attending Provider Active Start: March 14, 2024 End: March 14, 2024 Team Status: Active Member Role Status Adriana Nicholson , DO Primary Care Provider Active Team Status: Inactive Member Role Status Adriana Nicholson , DO Attending Provider Active Sta rt: August 28, 2023 End: August 28, 2023 Team Status: Inactive Member Role Status Adriana Nicholson , DO Attending Provider Active Sta rt: September 15, 2023 End: September 15, 2023 Team Status: Active Member Role Status Adriana Nicholson DO Primary Care Provider Active Start: [...] Team Status: Active Member Role Status Adriana Nicholson DO Primary Care Provider Active Alejo Lynn DO Emergency Provider Active Bobo Villagomez MD Admit Provider, Attending Provi jeanette Active Berhane Trammell MD Other Provider Active Team Status: Inactive Member Role Status Adriana Oliva MD Attending Provider Active Cisco Nicholson DO Primary Care Provider Active Team Status: Inactive Member Role Status Adriana Nicholson DO Primary Care Provider Active Maryjane Christensen MD Attending Provider Active Team Status: Active Member Role Status Adriana Nicholson DO Primary Care Provider Active Sandoval Palacios Jr, MD Emergency Provider Active Warren Quiroz MD Admit Provider, Attending Provider Active Team Status: Active Member Role Status Adriana Nicholson DO Primary Care Provide r, Attending Provider Active Start: November 16, 2023 Team Status: Inactive Member Role Status Adriana Nicholson DO Primary Care Provide r, Attending Provider Active Start: November 27, 2023 End: November 27, 2023 Team Status: Active Member Role Status Adriana Nicholson DO Primary Care Provide r, Attending Provider Active Start: January 22, 2024 Team Status: Inactive Member Role Status Adriana Nicholson DO Primary Care Provide r, Attending Provider Active Start: January 28, 2024 End: January 28, 2024 Team Status: Inactive Member Role Status Adriana Nicholson DO Primary Care Provide r, Attending Provider Active Start: March 14, 2024 End: March 14, 2024 (unrecognized sect ion and content) No Status Records FoundNo Status Records FoundNo Status Records FoundNo Status Records FoundNo Status Records FoundNo Status Records Found INFORMATION SOURCE (unrecogn ized section and content) DATE CREATED AUTHOR 09/16/2022 [facility] DATE CREATED AUTHOR AUTHOR'S ORGANIZ ATION 03/05/2023 [facility] DATE CREATED AUTHOR AUTHOR'S ORGANIZ ATION 06/25/2023 [facility] DATE CREATED AUTHOR AUTHOR'S ORGANIZ ATION 08/25/2023 [facility] DATE CREATED AUTHOR AUTHOR'S ORGANIZ ATION 12/15/2023 [facility] DATE CREATED AUTHOR AUTHOR'S ORGANIZ ATION 02/22/2024 [facility] EPIC REASON FOR VISIT (unrecogniz [...] BE BASED ON THE PRIMARY CLINICAL RECORDS. [employer] provides no warranty or guarantee of the accuracy or completeness of information in this document.
[2024-03-15 10:29] LABS: Erythrocyte Sedimentation Rate 11 mm/hr (<=20)
[2024-03-15 11:15] LABS: Basophils Percent Auto 0.6 % (0.2-2.0); Eosinophils Absolute Auto 0.1 10^3/uL (0.0-0.7); Eosinophils Percent Auto 0.9 % (0.9-7.0); Hematocrit 44.2 % (42.0-54.0); Hemoglobin 14.7 g/dL (14.0-18.0); Immature Granulocytes Abs Auto 0.03 10^3/uL (0.00-0.03); Immature Granulocytes Pct Auto 0.5 % (0.0-0.5); Lymphocytes Absolute Auto 1.3 10^3/uL (1.2-3.8); Lymphocytes Percent Auto 19.8 % (20.5-60.0); Mean Corpuscular HGB Conc 33.3 g/dL (29.9-35.2); Mean Corpuscular Hemoglobin 30.2 pg (25.9-34.0); Mean Corpuscular Volume 90.8 fL (80.0-94.0); Monocytes Absolute Auto 0.6 10^3/uL (0.3-0.8); Monocytes Percent Auto 9.9 % (1.7-12.0); Neutrophils Absolute Auto 4.4 10^3/uL (1.4-6.5); Neutrophils Percent Auto 68.3 % (43.0-75.0); Platelet Count 169 10^3/uL (150-450); Red Blood Count 4.87 10^6/uL (4.70-6.10); Red Cell Distribution Width 14.3 % (11.0-15.0); White Blood Count 6.5 10^3/uL (4.0-11.0)
[2024-03-15 11:46] LABS: Bilirubin Urine NEGATIVE (NEGATIVE); Blood Urine NEGATIVE (NEGATIVE); Clarity Urine CLEAR (CLEAR); Color Urine YELLOW (YELLOW); Glucose Urine UA NEGATIVE (NEGATIVE); Ketones Urine NEGATIVE (NEGATIVE); Leukocyte Esterase Urine NEGATIVE (NEGATIVE); Nitrite Urine NEGATIVE (NEGATIVE); Protein Urine NEGATIVE (NEG/TRACE); Urobilinogen Urine 0.2 EU/dL (0.2-1.0); pH Urine 6.5 (5.0-9.0)
[2024-03-15 12:14] LABS: Bacteria Urine NONE SEEN #/HPF (NONE SEEN); Cast Seen? NONE SEEN #/LPF (NONE SEEN); Crystals Seen? None Seen #/HPF (None Seen); Mucus Urine TRACE (NONE SEEN); RBC Urine 0-2 #/HPF (0-2); Squamous Epithelial Cell Urine NONE SEEN #/LPF (NONE/RARE); WBC Urine 0-2 #/HPF (NONE SEEN)
== END 2024-03-15 09:41 | disposition home or self-care (01) ==
LOC: LAB 09:41
PROVIDERS: PCP Internal Medicine; Visit Provider Internal Medicine
DX: R10.9 Unspecified abdominal pain (principal); R35.89 Other polyuria; N40.1 Benign prostatic hyperplasia with lower urinary tract symptoms
CPT/HCPCS: 36415; 81001; 85025; 85652; 87086

== ENCOUNTER 2024-07-12 07:28 | Outpatient (OUT) | payer MEDICARE, SELFPAY ==
--- OUTSIDE RECORDS SUMMARY | 2024-07-12 07:37 | XMS_ITS | CCD ---
Author Organization [facility] Care Team Providers Care Editing Internship Name Role Phone MD Alek Oliva Attending Provider DO Cisco Nicholson Primary Care Provider [phone] MIGUEL ANGEL SLAUGHTER Attending Unavailable ANN-MARIE, MIGUEL [...] Admit Provider MD Bobo Villagomez Attending Provider [phone] MD Berhane Trammell Other Provider [phone] DO Cisco Nicholson Primary Care Provider MD Sandoval Palacios Jr Emergency Provider MD Warren Quiroz Admit Provider MD Warren Quiroz Attending Provider Cisco Nicholson Primary [facility] Unavailable Asaad, Imad Admitting Unavailable Asaad, Imad Attending Unavailable Cisco Nicholson Primary Care [...] NICHOLSON Referring Unavailable ZEV CHAVEZ Attending Unavailable Cisco Nicholson MD Primary Care Provider MIGUEL ANGEL SLAUGHTER Attending Unavailable MIGUEL ANGEL SLAUGHTER Attending Unavailable CHEYANNE ALBARRAN Attending Unavailable CHEYANNE ALBARRAN B Referring Unavailable MIGUEL ANGEL SLAUGHTER Attending Unavailable MIGUEL ANGEL SLAUGHTER Attending Unavailable Allergies Allergy Classification Reported Allergen(s) Allergy Type Date of Onset Reaction(s) Facility (11 sources) Ritonavir; Translations: [ritonavir] Drug Allergy [address] [place] [address] (11 sources) nirmatrelvir; Translations: [nirmatrelvir] Propensity to adverse reactions [address] [place] [address] (1 source) No Known Medication Allergies; Translations: [No Known Medication Allergies] Propensity to adverse reactions (disorder) [facility] Repository Medications Current Medications Medication Drug Class(es) Dates Sig (Normalized) Sig (Original) aspirin 81 mg delayed release oral tablet (20 sources) Platelet Aggregation Inhibitor, Nonsteroidal Anti-inflammatory Drug Start: 03-01-2023 take 81 mg by mouth once daily Aspirin Active 81 MG PO Daily March 01, 2023 12:00am take 1 tablet by mouth once isamar y aspirin 81 MG chewable tablet Chew 1 tablet every day by oral route. Active Baby Aspirin Act karen atorvastatin 80 mg oral tablet (20 sources) HMG-CoA Reductase Inhibitor Start: 08-04-2022 take 1 tablet by mouth in the morning atorvastatin (Lipitor) 80 MG tablet Take 1 tablet by mouth in the morning. 08/04/2022 Active Atorvastatin Sandor cium Active bimatoprost 0.1 mg/ml [...] days Aug, Active brimonidine tartrate 2 mg/ml ophthalmic solution (3 sources) alpha-Adrenergic Agonist brimonidine (AlphaGAN P) 0.2 % ophthalmic solution every 12 (twelve) hours Active brimonidine tartrate 2 mg/ml / brinzolamide 10 mg/ml ophthalmic suspension (15 sources) Carbonic Anhydrase Inhibitor, alpha-Adrenergic Agonist Start: 06-13-2024 take 1 drop(s) into the eye(s) twice daily Simbrinza 1-0.2 % suspension Indications: Primary open angle glaucoma (POAG) of both eyes, moderate stage (CMS/HCC) INSTILL 1 DROP INTO BOTH EYES TWICE DAILY DIRECTED 16 mL 5 06/13/2024 Active Start: 07-28-2023 take 1 drop(s) into the eye(s) twice daily Simbrinza 0.2%-1% ophthalmic suspension 1 drop(s), Eye-Both, BID, Refill(s) 0 Start Date: 07/28/23 Status: Ordered Start: 03-01-2023 take 1 drop(s) into the eye(s) twice daily Brinzolamide-Brimonidine Active 1 DROPS EYE-BOTH Twice daily March 01, 2023 12:00am End: 06-13-2024 Simbrinza 1-0.2 % suspension 06/13/2024 Discontinued brinzolamide (20 sources) Carbonic Anhydrase Inhibitor Brinzolamide Active busPIRone hydrochloride 15 mg oral tablet (20 sources) Start: take 1 tablet by mouth twice daily Buspirone Active 0 .ROUTE .COMPLEX 180 April 27, 2024 7:33am TAKE 1 TABLET BY MOUTH TWICE DAILY Start: 08-25-2022 End: 04-27-2024 take 15 mg by mouth twice daily Buspirone Discontinued 15 MG PO Twice daily 180 90 November 27, 2023 9:10am April 27, 2024 7:33am Start: 08-25-2022 End: 03-01-2023 take 15 mg [...] Active Start: 03-19-2019 take 1 capsule by [facility] every eight hours Cephalexin 500 MG 1 capsule Orally tid for 5 day(s) Mar, Active ferrous sulfate (3 sources) take 1 tablet by mouth in the morning Ferrous Sulfate (IRON PO) Take 1 tablet by mouth in the morning. Active gabapentin 300 mg oral capsule (20 sources) Anti-epileptic Agent Start: 08-25-2022 End: 03-02-2023 take 300 mg by mouth three times daily Gabapentin Discontinued 300 MG PO Three times daily August 25, 2022 1:00am March 02, 2023 5:25pm Start: 08-04-2022 take 1 capsule by mo uth four times daily gabapentin (Neurontin) 300 MG capsule Take 1 capsule 4 times a day by oral route for 90 days. 08/04/2022 Active Gabapentin Activ e irbesartan (20 sources) Angiotensin 2 Receptor Zachary Irbesartan Active latanoprost 0.05 mg/ml ophthalmic solution (16 sources) Prostaglandin Analog Start: take 1 drop(s) into the eye(s) once daily latanoprost (Xalatan) 0.005 % ophthalmic solution 1 drop into each eye Ophthalmic Once a day at night 07/28/2023 Active Start: 07-28-2023 latanoprost Op th 0.005% Nisa 1 drop(s), OPTH, Once a [...] Twice daily December 15, 2023 1:42pm Start: 10-20-2022 take 0.5 tablet by m outh twice daily metoprolol tartrate (Lopressor) 25 MG tablet TAKE ONE-HALF TABLET BY MOUTH TWICE DAILY 10/20/2022 Active Start: 08-25-2022 End: 12-15-2023 take 25 mg by mouth once daily Metoprolol Tartrate Dis continued 25 MG PO Daily August 25, 2022 1:00am December 15, 2023 6:07pm Start: 08-18-2022 take 1 tablet by kelly th every twelve hours Metoprolol Tartrate 25 MG 1 tablet with food Orally Twice a day Aug, Active Multivitamin preparation (11 sources) Start: 07-28-2023 take 1 tablet by [...] Twice a day for 5 days Active Paxlovid, 300/100, 20 x 150 MG & 10 x 100MG tablet therapy pack (3 sources) Start: 06-18-2023 take 3 tablets by mouth twice daily Paxlovid, 300/100, 20 x 150 MG & 10 x 100MG tablet therapy pack TAKE 3 TABLETS BY MOUTH TWICE A DAY FOR 5 DAYS 06/18/2023 Active Ranitidine & Diet Manage Prod (20 sources) Ranitidine & t Manage Prod Active temazepam 15 mg oral capsule (20 sources) Benzodiazepine Start: 08-19-2022 End: 04-27-2024 take 1 capsule by mouth once temazepam (Restoril) 15 MG capsule 1 PO q HSTEMAZEPAM 15 MG CAPS 11/02/2022 Active Temazepam Active tetracycline hydrochloride 500 mg [...] Sig (Normalized) Sig (Original) bacitracin 0.5 unt/mg ophthalmic ointment (20 sources) Start: 10-27-2023 End: 03-19-2024 Bacitracin Discontinued 1 APPLIC OPHTHALMIC Daily October 27, 2023 12:00am March 19, 2024 9:19am Start: 03-19-2019 Bacitracin 500 UNIT/GM 1 application Ophthalmic Once a day for 14 days Mar, Active Bacitracin 500 UNIT/GM (20 sources) Start: 03-19-2019 Bacitracin 500 UNIT/GM 1 application Ophthalmic Once a day for 14 days Mar, Not-Taking Start: 03-19-2019 Bacitracin 500 UNIT/GM 1 application Ophthalmic Once a day for 14 days Mar, Active escitalopram 5 mg oral tablet (13 sources) Serotonin Reuptake Inhibitor Start: 11-10-2023 End: [...] 12:00am March 02, 2023 5:23pm Nirmatrelvir-Ritona vir (7 sources) Start: 06-20-2023 End: 06-22-2023 Nirmatrelvir-Ritona vir (Paxlovid) 300 mg (150 mg x 2)-100 mg tablets,dose pack Discontinued TAB PO June 20, 2023 12:00am June 22, 2023 7:00pm Start: 06-20-2023 Nirmatrelvir-R itonavir (Paxlovid) 300 mg (150 mg x 2)-100 mg tablets,dose pack Active TAB PO June 20, 2023 12:00am sulfamethoxazole 800 mg / trimethoprim 160 mg oral tablet (6 sources) Dihydrofolate Reductase Inhibitor Antibacterial, Sulfonamide Antimicrobial Start: 11-06-2023 End: 03-19-2024 take 1 tablet by mouth twice daily Sulfamethoxazole-Trimethoprim Discontinued 1 TAB PO Twice daily 14 November 06, 2023 12:00am March 19, 2024 9:20am Problems Active Problems Problem Classification Problem Date Documented Da te Episodic/Chronic Abdominal hernia (7 sources) Unilateral inguinal hernia, without obstruction or gangrene, not specified as recurrent; Translations: [Inguinal hernia] Onset: 07-28-2023 Episodic Abdominal pain (8 sources) Right lower quadrant pain; Translations: [Abdominal pain] Episodic Anxiety disorders (20 sources) Generalized anxiety disorder; Translations: [Generalized anxiety disorder] Chronic Aortic; peripheral; and visceral artery aneurysms (7 sources) Aneurysm of ascending aorta; Translations: [Ascending aortic aneurysm] 12-31-2023 Chronic Biliary tract disease (20 sources) Cholelithiasis without obstruction; Translations: [Calculus of gallbladder without cholecystitis without obstruction] Episodic Blindness and vision defects (20 sources) Other visual disturbances; Translations: [Visual hallucinations] Onset: 08-02-2022 Episodic Cataract (8 sources) Age-related nuclear cataract, right eye; Translations: [After-cataract of bilateral eyes] Onset: 03-20-2022 Chronic Chronic obstructive pulmonary disease and bronchiectasis (4 sources) Emphysema, unspecified; Translations: [Pulmonary emphysema] Onset: 07-02-2022 07-14-2023 Chronic Conditions associated with dizziness or vertigo (4 sources) Dizziness and giddiness; Translations: [DIZZINESS AND GIDDINESS] Onset: 09-14-2022 Episodic Coronary atherosclerosis and other heart disease (10 sources) Coronary arteriosclerosis; Translations: [Atherosclerotic heart disease of [place] coronary artery without angina pectoris] 11-27-2023 Chronic Crushing injury or internal injury (1 source) Traumatic pneumothorax, initial encounter; Translations: [TRAUMATIC PNEUMOTHORAX INITIAL ENC] Onset: 07-01-2022 Episodic Disorders of lipid metabolism (20 sources) Pure hypercholesterolemia, unspecified; Translations: [Familial hypercholesterolemia] Onset: 08-02-2022 Chronic E Codes: Adverse effects of medical drugs (9 sources) Adverse reaction to drug; Translations: [Adverse [...] 09-16-2022 Chronic Genitourinary symptoms and ill-defined conditions (6 sources) Polyuria; Translations: [Polyuria] 03-14-2024 Episodic Glaucoma (15 sources) Primary open-angle glaucoma, right eye, moderate stage; Translations: [Glaucoma] Onset: 03-25-2022 07-14-2023 Chronic Hyperplasia of prostate (6 sources) Benign prostatic hyperplasia; Translations: [Benign prostatic hyperplasia with lower urinary tract symptoms] 03-14-2024 Chronic Inflammation; infection of eye (except that caused by tuberculosis or sexually transmitteddisease) (4 sources) Blepharitis of upper and lower eyelids of bilateral eyes; Translations: [Unspecified blepharitis right eye, upper and lower eyelids] Onset: 04-10-2023 04-10-2023 Episodic Inflammatory conditions of male genital organs (2 [...] 03-28-2022 Episodic Other aftercare (1 source) Other retirement (current) drug therapy; Translations: [OTH TIRE MOLD TESTER CURRENT DRUG THERAPY] Onset: 09-16-2022 Episodic Other aftercare (1 source) FDC (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; Translations: [TIRE MOLD TESTER CURRENT USE OF ASPIRIN] Onset: 09-16-2022 Episodic Other and ill-defined cerebrovascular disease (15 sources) Cerebral atherosclerosis; Translations: [Cerebral atherosclerosis] 10-27-2023 Chronic Other and ill-defined cerebrovascular disease (3 sources) Cerebral atherosclerosis Chronic Other and unspecified benign neoplasm (20 sources) Adenomatous polyp of colon ; Translations: [Benign neoplasm of descending colon] 07-14-2023 Episodic Other connective tissue disease (8 sources) Pain in lower limb; Translations: [Pain in right leg] 03-01-2023 Episodic Other eye disorders (4 sources) Dry eyes; Translations: [Dry eye syndrome of bilateral lacrimal glands] Onset: 04-10-2023 04-10-2023 Episodic Other fractures (1 source) Multiple fractures [...] with constipation] 07-14-2023 Chronic Other gastrointestinal disorders (8 sources) Irritable bowel syndrome with constipation; Translations: [Irritable bowel syndrome] Chronic Other hereditary and degenerative nervous system conditions (15 sources) Impaired cognition; Translations: [Mild cognitive impairment, so stated] Chronic Other hereditary and degenerative nervous system conditions (10 sources) Mild cognitive impairment, so stated; Translations: [...] Onset: 06-20-2023 Chronic Other nervous system disorders (10 sources) Neuropathy; Translations: [Polyneuropathy, unspecified] Onset: 06-20-2023 06-20-2023 Chronic Other nervous system disorders (9 sources) Metabolic encephalopathy; Translations: [Metabolic encephalopathy] Chronic Other nervous system disorders (1 source) Metabolic encephalopathy Chronic Other nervous system disorders (9 sources) Disorder of brain; Translations: [Encephalopathy, unspecified] 07-14-2023 Chronic Other nervous system disorders (4 sources) Other disturbances of skin sensation; Translations: [OTHER DISTURBANCES SKIN SENSATION] Onset: 07-28-2022 Episodic Other nervous system disorders (8 sources) Numbness of hand; Translations: [Anesthesia of [...] conditions (not mental disorders or infectious disease) (6 sources) Encounter for screening for malignant neoplasm of prostate; Translations: [Patient encounter status] Onset: 08-02-2022 Episodic Pleurisy; pneumothorax; pulmonary collapse (1 source) Pleural effusion, not elsewhere classified; Translations: [PLEURAL EFFUSION NEC] Onset: 07-02-2022 Episodic Residual codes; unclassified (1 source) Disorientation, unspecified Episodic Residual codes; unclassified (7 sources) Altered mental status; Translations: [Altered mental [...] index 20-24 - normal 07-28-2023 Viral infection (20 sources) COVID-19; Translations: [Severe acute respiratory syndrome coronavirus 2 (SARS-CoV-2) detected] Onset: 06-20-2023 06-20-2023 Episodic Past or Other Problems Problem Classification Problem Date Documented Da te Episodic/Chronic E Codes: Cut/pierceb (1 source) Contact with other sharp object(s), not elsewhere classified, initial encounter; Translations: [[facility] OT SHRP OB NOT ELSW CLASS INI] Onset: [...] Test Name Value Interpretation Reference Range Facility Perimetry studyon 07-05-2024 [facility] Radiology Study observation (narrative) [facility] Influenza virus B Ag [Presen ce] in Upper respiratory specimen by Rapid immunoassayon 03-19-2024 FLUBV Ag IA.rapid Ql (Nph) Negative [facility] No Panel Informationon 03-19 Influenza Type A (Rapid) Negative [facility] POC SARS CoV-2 Antigen Positive [facility] Basophils Auto (Bld) [#/Vol] on 03-15-2024 Basophils (Bld) [#/Vol] 0.0 10 3/uL 0.0-0.1 [facility] Basophils/100 WBC Auto (Bld) on 03-15-2024 Basophils/100 WBC (Bld) 0.6 % 0.2-2.0 [facility] Eosinophils/100 WBC Auto (Bl d)on 03-15-2024 Eosinophils/100 WBC (Bld) 0.9 % 0.9-7.0 [facility] Erythrocyte distribution wid th Auto (RBC) [Ratio]on 03-15-2024 Erythrocyte distribution width (RBC) [Ratio] 14.3 % 11.0-15.0 [facility] Hematocrit Auto (Bld) [Volum e fraction]on 03-15-2024 Hematocrit (Bld) [Volume fraction] 44.2 % 42.0-54.0 [facility] Hemoglobin [Mass/volume] in Bloodon 03-15-2024 Hemoglobin (Bld) [Mass/Vol] 14.7 g/dL 14.0-18.0 [facility] Laboratory - Chemistry and C hemistry - challengeon 03-15-2024 Bilirubin Ql (U) Negative NEGATIVE [facility] Glucose (U) [Mass/Vol] Negative NEGATIVE [facility] Ketones Ql (U) Negative NEGATIVE [facility] pH (U) 6.5 [pH] 5.0-9.0 [facility] Specific gravity (U) [Rel density] 1.020 1.005-1.02 5 [facility] Urobilinogen Qn (U) 0.2 {[place]'U}/dL 0.2-1.0 [facility] Laboratory - Hematology and Cell countson 03-15-2024 ESR (Bld) [Velocity] 11 mm/h <=20 [facility] Immature granulocytes/100 WBC (Bld) 0.5 % 0.0-0.5 [facility] Laboratory - Specimen inform ationon 03-15-2024 Appearance (U) CLEAR CLEAR [facility] Color (U) YELLOW YELLOW [facility] Laboratory - Urinalysison Leukocyte esterase Test strip Ql (U) Negative NEGATIVE [facility] Mucus Ql (Urine sed) TRACE Abnormal NONE SEEN [facility] Nitrite Ql (U) Negative NEGATIVE [facility] Protein Ql (U) Negative NEG/TRACE [facility] Leukocytes [#/volume] correc airam for nucleated erythrocytes in Blood by Automated counon 03-15-2024 WBC corrected for nucl RBC Auto (Bld) [#/Vol] 6.5 10 3/uL 4.0-11.0 [facility] Lymphocytes Auto (Bld) [#/Vo l]on 03-15-2024 Lymphocytes (Bld) [#/Vol] 1.3 10 3/uL 1.2-3.8 [facility] Lymphocytes/100 WBC Auto (Bl d)on 03-15-2024 Lymphocytes/100 WBC (Bld) 19.8 % Low 20.5-60.0 [facility] MCH Auto (RBC) [Entitic mass ]on 03-15-2024 MCH (RBC) [Entitic mass] 30.2 pg 25.9-34.0 [facility] MCHC Auto (RBC) [Mass/Vol]on 03-15-2024 MCHC (RBC) [Mass/Vol] 33.3 g/dL 29.9-35.2 [facility] MCV Auto (RBC) [Entitic vol] on 03-15-2024 MCV (RBC) [Entitic vol] 90.8 fL 80.0-94.0 [facility] Monocytes Auto (Bld) [#/Vol] on 03-15-2024 Monocytes (Bld) [#/Vol] 0.6 10 3/uL 0.3-0.8 [facility] Monocytes/100 WBC Auto (Bld) on 03-15-2024 Monocytes/100 WBC (Bld) 9.9 % 1.7-12.0 [facility] Neutrophils Auto (Bld) [#/Vo l]on 03-15-2024 Neutrophils (Bld) [#/Vol] 4.4 10 3/uL 1.4-6.5 [facility] Neutrophils/100 WBC Auto (Bl d)on 03-15-2024 Neutrophils/100 WBC (Bld) 68.3 % 43.0-75.0 [facility] No Panel Informationon 03-15 Urine Bacteria NONE SEEN #/HPF NONE SEEN [facility] Urine Occult Blood Negative NEGATIVE [facility] Urine Other Casts NONE SEEN #/LPF NONE SEEN [facility] Urine Other Crystals None Seen #/HPF None Seen [facility] Urine RBC 0-2 #/HPF 0-2 [facility] Urine Squamous Epithelial Cells NONE SEEN #/LPF NONE/RARE [facility] Urine WBC 0-2 #/HPF Abnormal NONE SEEN [facility] Eosinophils # (Auto) 0.1 10 3/uL 0.0-0.7 [facility] Immature Granulocyte # (Auto) 0.03 10 3/uL 0.00-0.03 [facility] Platelet mean volume Auto (B ld) [Entitic vol]on 03-15-2024 Platelet mean volume (Bld) [Entitic vol] 10.0 fL 9.5-13.5 [facility] Platelets Auto (Bld) [#/Vol] on 03-15-2024 Platelets (Bld) [#/Vol] 169 10 3/uL 150-450 [facility] RBC Auto (Bld) [#/Vol]on RBC (Bld) [#/Vol] 4.87 10 6/uL 4.70-6.[address] [facility] No Panel Informationon 01-21 Prostate Specific Antigen Screen 1.33 ng/mL <=4.00 [facility] Office Visiton 12-14-2023 Follow-up visit [id number] Yonatan Patel 1945 M Date Provider Department Center 12/14/2023 [id number] CARD [facility] Family History Problem Relation Age of Onset Heart attack Father Heart attack Brother Family Status - Relation Status Age at Father Brother Level of Service:00868 MS OFFICE/OUTPATIENT ESTABLISHED LOW MDM 20 MIN Normal [facility] Estimated glomerular filtrat ion rate (GFR) non- Americanon 11-16-2023 GFR/1.73 sq M.predicted among non-blacks MDRD (S/P/Bld) [Vol rate/Area] mL/min/{1.73_m2} >=60 [facility] Laboratory - Chemistry and C hemistry - challengeon 11-16-2023 Calcium [Mass/Vol] 9.6 mg/dL 8.5-10.1 [facility] Chloride [Moles/Vol] 105 mmol/L 98-107 [facility] CO2 [Moles/Vol] 23.8 mmol/L 21.0-32.0 [facility] Creatinine [Mass/Vol] 1.02 mg/dL 0.70-1.30 [facility] GFR/1.73 sq M.predicted MDRD (S/P/Bld) [Vol rate/Area] mL/min/{1.73_m2} >=60 [facility] Glucose [Mass/Vol] 96 mg/dL 74-106 [facility] Potassium [Moles/Vol] 4.0 mmol/L 3.5-5.1 [facility] Sodium [Moles/Vol] 140 mmol/L 136-145 [facility] Urea nitrogen [Mass/Vol] 15.0 mg/dL 7.0-18.0 [facility] Urea nitrogen/Creatinine [Mass ratio] 14.7 mg/mg [facility] Serum or plasma anion gap de terminationon 11-16-2023 Anion gap [Moles/Vol] 15.2 mmol/L [facility] Operative Reporton Operative Report [id number]#1.00TIFF Normal [facility] RAD - MISCon 08-07-2023 RAD - MISC [id number]#1.00TIFF Normal [facility] Consent for Procedure/Surger yon 07-29-2023 Consent for Procedure/Surgery [id number]#1.00TIFF Normal [facility] Facesheeton 07-29-2023 Facesheet [id number]#1.00TIFF Normal [facility] Ambulatory Visit Summaryon 1 09-28-2022 [...] you for choosing us for your care. [facility] Ambulatory Visit Summary YONATAN PATEL [...] for choosing us for your care. Normal [facility] Physician Referralon 023 Physician Referral [id number]#1.00TIFF Normal [facility] Basic Metabolic Panelon Anion gap [Moles/Vol] 10.4 mmol/L Normal 6.0-15.0 [facility] Comment on above: Order Comment: FASTI NG Y Performed By: #### H S TROP, CMP, CK, CBC #### [facility] [address] [place] [address] Calcium [Mass/Vol] 9.4 mg/dL Normal 8.6-10.3 [facility] Comment on above: Order Comment: FASTI NG Y Performed By: #### H S TROP, CMP, CK, CBC #### [facility] [address] Chloride [Moles/Vol] 106 mmol/L Normal 98-107 [facility] Comment on above: Order Comment: FASTI NG Y Performed By: #### H S TROP, CMP, CK, CBC #### [facility] [address] CO2 [Moles/Vol] 28.8 mmol/L Normal 21.0-31.0 [facility] Comment on above: Order Comment: FASTI NG Y Performed By: #### H S TROP, CMP, CK, CBC #### [facility] [address] [place] [address] Creatinine [Mass/Vol] 0.78 mg/dL Normal 0.70-1.30 [facility] Comment on above: Order Comment: FASTI NG Y Performed By: #### H S TROP, CMP, CK, CBC #### [facility] [address] Creatinine Clr Calc Pharmacy 81.46 [facility] Comment on above: Order Comment: FASTI NG Y Performed By: #### H S TROP, CMP, CK, CBC #### [facility] [address] GFR/1.73 sq M.predicted MDRD (S/P/Bld) [Vol rate/Area] mL/min/{1.73_m2} [facility] Comment on above: Order Comment: FASTI NG Y Performed By: #### H S TROP, CMP, CK, CBC #### [facility] [address] Glucose [Mass/Vol] 99 mg/dL Normal 70-100 [facility] Comment on above: Order Comment: FASTI NG Y Result Comment: [facility] Glucose Reference Range is dependent on time and content of last meal. Glucose of more than 200 mg/dL in a nonstressed, ambulatory subject supports the diagnosis of Diabetes Mellitus. ADA recommended reference range Performed By: #### H S TROP, CMP, CK, CBC #### [address] Potassium [Moles/Vol] 4.2 mmol/L Normal 3.5-5.1 [facility] Comment on above: Order Comment: FASTI NG Y Performed By: #### H S TROP, CMP, CK, CBC #### [facility] [address] Sodium [Moles/Vol] 141 mmol/L Normal 136-145 [facility] Comment on above: Order Comment: FASTI NG Y Performed By: #### H S TROP, CMP, CK, CBC #### [facility] [address] Urea nitrogen [Mass/Vol] 16 mg/dL Normal 7-25 [facility] Comment on above: Order Comment: FASTI NG Y Performed By: #### H S TROP, CMP, CK, CBC #### [address] Complete Blood Count Auto Di ffon 06-22-2023 Basophils (Bld) [#/Vol] 0.0 10*3/uL Normal 0.0-0.2 [facility] Comment on above: Result Comment: PERF ORMED BY: [place] [address] PATHOLOGIST DATA ENTRY PROCESSOR HARRY MARTI M.D. Performed By: #### L IPID, [id number], PT, CBC, HEPATIC, BMP, PTT, TSH3, MG #### [address] Basophils/100 WBC (Bld) 0.4 % Normal . [facility] Comment on above: Performed By: #### L IPID, [id number], PT, CBC, HEPATIC, BMP, PTT, TSH3, MG #### [address] Eosinophils (Bld) [#/Vol] 0.1 10*3/uL Normal 0.0-0.45 [facility] Comment on above: Performed By: #### L IPID, [id number], PT, CBC, HEPATIC, BMP, PTT, TSH3, MG #### [address] Eosinophils/100 WBC (Bld) 1.2 % Normal . [facility] Comment on above: Performed By: #### L IPID, [id number], PT, CBC, HEPATIC, BMP, PTT, TSH3, MG #### [address] Erythrocyte distribution width (RBC) [Ratio] 15.2 % High 12.0-14.8 [facility] Comment on above: Performed By: #### L IPID, [id number], PT, CBC, HEPATIC, BMP, PTT, TSH3, MG #### [address] Hematocrit (Bld) [Volume fraction] 40.0 % Normal 38.8-50.0 [facility] Comment on above: Performed By: #### L IPID, [id number], PT, CBC, HEPATIC, BMP, PTT, TSH3, MG #### [address] Hemoglobin (Bld) [Mass/Vol] 13.6 g/dL Normal 13.0-17.0 [facility] Comment on above: Performed By: #### L IPID, [id number], PT, CBC, HEPATIC, BMP, PTT, TSH3, MG #### [address] Lymphocytes (Bld) [#/Vol] 1.5 10*3/uL Normal 1.00-4.8 [facility] Comment on above: Performed By: #### L IPID, [id number], PT, CBC, HEPATIC, BMP, PTT, TSH3, MG #### [address] Lymphocytes/100 WBC (Bld) 35.5 % Normal . [facility] Comment on above: Performed By: #### L IPID, [id number], PT, CBC, HEPATIC, BMP, PTT, TSH3, MG #### [address] MCH (RBC) [Entitic mass] 29.4 pg Normal 27.5-35.2 [facility] Comment on above: Performed By: #### L IPID, [id number], PT, CBC, HEPATIC, BMP, PTT, TSH3, MG #### [address] MCV (RBC) [Entitic vol] 86.7 fL Normal 83.5-101 [facility] Comment on above: Performed By: #### L IPID, [id number], PT, CBC, HEPATIC, BMP, PTT, TSH3, MG #### [address] Mean Corpuscular HGB Conc 33.9 g/dL Normal 32.5-35.6 [facility] Comment on above: Performed By: #### L IPID, [id number], PT, CBC, HEPATIC, BMP, PTT, TSH3, MG #### [address] Monocytes (Bld) [#/Vol] 0.4 10*3/uL Normal 0.0-0.8 [facility] Comment on above: Performed By: #### L IPID, [id number], PT, CBC, HEPATIC, BMP, PTT, TSH3, MG #### [address] Monocytes/100 WBC (Bld) 10.4 % Normal . [facility] Comment on above: Performed By: #### L IPID, [id number], PT, CBC, HEPATIC, BMP, PTT, TSH3, MG #### [address] Neutrophils (Bld) [#/Vol] 2.2 10*3/uL Normal 1.8-7.7 [facility] Comment on above: Performed By: #### L IPID, [id number], PT, CBC, HEPATIC, BMP, PTT, TSH3, MG #### [address] Neutrophils/100 WBC (Bld) 52.5 % Normal . [facility] Comment on above: Performed By: #### L IPID, [id number], PT, CBC, HEPATIC, BMP, PTT, TSH3, MG #### [address] NRBC% 0.1 /100{WBC} Normal 0-0.5 [facility] Comment on above: Performed By: #### L IPID, [id number], PT, CBC, HEPATIC, BMP, PTT, TSH3, MG #### [address] Platelet mean volume (Bld) [Entitic vol] 7.3 fL Normal 6.6-10.1 [facility] Comment on above: Performed By: #### L IPID, [id number], PT, CBC, HEPATIC, BMP, PTT, TSH3, MG #### [facility] [address] Platelets (Bld) [#/Vol] 153 10*3/uL Normal 150-450 [facility] Comment on above: Performed By: #### L IPID, [id number], PT, CBC, HEPATIC, BMP, PTT, TSH3, MG #### [facility] [address] [place] [address] RBC (Bld) [#/Vol] 4.61 10*6/uL Normal 3.90-5.[address] [facility] Comment on above: Performed By: #### L IPID, [id number], PT, CBC, HEPATIC, BMP, PTT, TSH3, MG #### [address] WBC (Bld) [#/Vol] 4.1 10*3/uL Normal 4.1-10.5 [facility] Comment on above: Performed By: #### L IPID, [id number], PT, CBC, HEPATIC, BMP, PTT, TSH3, MG #### [address] Hepatic Panelon 06-22-2023 Albumin [Mass/Vol] 3.8 g/dL Normal 3.5-5.7 [facility] Comment on above: Order Comment: FASTI NG Y Performed By: #### H S TROP, CMP, CK, CBC #### [address] Albumin/Globulin [Mass ratio] 1.6 {ratio} Normal [facility] Comment on above: Order Comment: FASTI NG Y Performed By: #### H S TROP, CMP, CK, CBC #### [address] ALP [Catalytic activity/Vol] 57 U/L Normal 34-104 [facility] Comment on above: Order Comment: FASTI NG Y Performed By: #### H S TROP, CMP, CK, CBC #### [address] ALT [Catalytic activity/Vol] 26 U/L Normal 7-52 [facility] Comment on above: Order Comment: FASTI NG Y Performed By: #### H S TROP, CMP, CK, CBC #### [address] AST [Catalytic activity/Vol] 27 U/L Normal 13-39 [facility] Comment on above: Order Comment: FASTI NG Y Performed By: #### H S TROP, CMP, CK, CBC #### [address] Bilirubin [Mass/Vol] 1.0 mg/dL Normal 0.3-1.0 [facility] Comment on above: Order Comment: FASTI NG Y Performed By: #### H S TROP, CMP, CK, CBC #### [address] Bilirubin,Indirect 0.8 mg/dL Normal [facility] Comment on above: Order Comment: FASTI NG Y Performed By: #### H S TROP, CMP, CK, CBC #### [address] Bilirubin.indirect [Mass/Vol] 0.20 mg/dL High 0.03-0.18 [facility] Comment on above: Order Comment: FASTI NG Y Performed By: #### H S TROP, CMP, CK, CBC #### [address] Globulin (S) [Mass/Vol] 2.4 g/dL Normal [facility] Comment on above: Order Comment: FASTI NG Y Performed By: #### H S TROP, CMP, CK, CBC #### [address] Protein [Mass/Vol] 6.2 g/dL Low 6.4-8.9 [facility] Comment on above: Order Comment: FASTI NG Y Performed By: #### H S TROP, CMP, CK, CBC #### [address] Lipid Panelon 06-22-2023 Cholesterol [Mass/Vol] 108 mg/dL Low 140-200 [facility] Comment on above: Order Comment: SHABANA Child Result Comment: Chol less than 200 mg/dl low risk Chol 201-239 mg/dl borderline risk Chol 240 mg/dl and greater high risk Performed By: #### H S TROP, CMP, CK, CBC #### [facility] [address] [place] [address] [place] Cholesterol in HDL [Mass/Vol] 30 mg/dL Normal 23-92 [facility] Comment on above: Order Comment: FASTBryan NG Y Result Comment: HDL CHOL ATP-III CLASSIFICATION Cardiovascular Risk HDL > or equal to 60 mg/dL LOW HDL < 40 mg/dL HIGH Performed By: #### H S TROP, CMP, CK, CBC #### [facility] [address] Cholesterol.total/Chol esterol in HDL [Mass ratio] 3.6 {ratio} Normal <5.0 [facility] Comment on above: Order Comment: SHABANA Child Performed By: #### H S TROP, CMP, CK, CBC #### [facility] [address] [place] [id number] [facility] LDL Cholesterol,Calculated 54 mg/dL Normal 0-100 [facility] Comment on above: Order Comment: STANBryan MCNEILL Y Result Comment: LDL ATP III CLASSIFICATION LDL less than 100 mg/dL Optimal LDL 100-129 mg/dL Near or above optimal LDL 130-159 mg/dL Borderline high LDL 160-189 mg/dL High LDL greater than 189 mg/dL Very high Performed By: #### H S TROP, CMP, CK, CBC #### [facility] [address] [place] [id number] [place] Triglyceride w/Reflex 120 mg/dL Normal 0-149 [facility] Comment on above: Order Comment: SHABANA MCNEILL Y Result Comment: TRIG ATP III CLASSIFICATION TRIG less than 150 mg/dL Normal TRIG 150-199 mg/dL Borderline high TRIG 200-500 mg/dL High TRIG greater than 500 mg/dL Very high Standard traceable to the Center for Disease Conrtrol and Prevention (CDC) test method. Performed By: #### H S TROP, CMP, CK, CBC #### [facility] [address] [place] [id number] [facility] VLDL CHOLESTEROL 24 mg/dL Normal [facility] Comment on above: Order Comment: SHABANA Child Performed By: #### H S TROP, CMP, CK, CBC #### [facility] [address] [place] [id number] [facility] MR angio head wo conon 06-22 MR angio head wo con [facility] [place] [address] [place] [address] MRI Report Signed Patient: Yonatan Patel MR#: [id number] 6 : 1945 Acct:[id number] Age/Sex: 78 / M ADM Date: 06/20/23 Loc: N Room: 3L2803-6 Type: ADM IN Attending Dr: Maren Petersen MD Copies to: MD Berhane Rocha MD Ordering Provider: Berhane Trammell MD Date of Service: 06/22/23 MR/MR angio head wo con: stroke MRI/MRA BRAIN WITHOUT CONTRAST COMPARISON: CT 06/20/2023 CLINICAL DATA: Confusion Sagittal T2, axial FLAIR and diffusion-weighted imaging was performed. 3-D [id number]-[id number] imaging of the [place] was also performed. There is [...] Selena Reid M.D.06/22/2023 4:25 PM Dictation Location: [place] [address] Transcribed By: [facility] 06/22/23 1625 Dictated By: Selena Reid MD 06/22/23 1617 Signed By: 06/22/23 1625 [facility] Magnesiumon 06-22-2023 Magnesium [Mass/Vol] 2.1 mg/dL Normal 1.9-2.7 [facility] Comment on above: Order Comment: STANBryan OSITO Child Performed By: #### H S TROP, CMP, CK, CBC #### [facility] [address] [place], [place] [id number] [place] Partial Thromboplastin Timeo n 06-22-2023 aPTT Coag (Bld) [Time] 27.4 s Normal 25.1-36.5 [facility] Comment on above: Result Comment: A he matocrit value greater than 55% may lead to inaccurate results in coagulation testing. Patients having hematocrit values >55% require a special collection tube for coagulation studies. Please contact the laboratory at [phone] for redraw instructions. PERFORMED BY: [place] [address] PATHOLOGIST DATA ENTRY PROCESSOR HARRY MARTI M.D. Performed By: #### H S TROP, CMP, CK, CBC #### [address] [address] [place] Prothrombin Time INRon 06-22 INR Coag (PPP) [Relative time] 1.0 {INR} [facility] Comment on above: Result Comment: INR Therapeutic [...] - 4.5 Performed By: #### L IPID, [id number], PT, CBC, HEPATIC, BMP, PTT, TSH3, MG #### [facility] [address] [place] [address] [place] PT Coag (PPP) [Time] 11.6 s Normal 9.0-12.9 [facility] Comment on above: Result Comment: A he matocrit value greater than 55% may lead to inaccurate results in coagulation testing. Patients having hematocrit values >55% require a special collection tube for coagulation studies. Please contact the laboratory at [phone] for redraw instructions. Performed By: #### L IPID, [id number], PT, CBC, HEPATIC, BMP, PTT, TSH3, MG #### [facility] [address] [place] [address] Thyroid Stimulating Hormoneo n 06-22-2023 TSH Qn 2.38 m[IU]/L Normal 0.45-5.33 [facility] Comment on above: Order Comment: FASTI NG Y Result Comment: PERF ORMED BY: [place] [address] PATHOLOGIST DATA ENTRY PROCESSOR HARRY MARTI M.D. Performed By: #### H S TROP, CMP, CK, CBC #### [address] Vit. B12/Folate Profileon Cobalamin (Vitamin B12) [Mass/Vol] 425 pg/mL Normal 180-914 [facility] Comment on above: Order Comment: FASTI NG Y Performed By: #### H S TROP, CMP, CK, CBC #### [address] Folate 29.0 ng/mL Normal >5.9 [facility] Comment on above: Order Comment: FASTI NG Y Result Comment: Aye te reference range: >5.9 ng/ml The WHO technical consultation on folate and vitamin b12 deficiencies has determined that folate concentrations less than 4 ng/ml are considered deficient. Performed By: #### H S TROP, CMP, CK, CBC #### [facility] [address] [place] [address] Vitamin B1 (Thiamine) Bloodo n 06-22-2023 Vitamin B1 (Thiamine) Blood 143.9 Normal 66.5-200.0 [facility] Comment on above: Result Comment: This test was developed and its performance characteristics determined by [facility]. It has not been cleared or approved by the Food and Drug Administration. Performed at: [facility] [address], [place], [place] [id number] Creative Technologist: Juan Howard MD, Phone: [phone] PERFORMED BY: [place] [address] PATHOLOGIST DATA ENTRY PROCESSOR HARRY MARTI M.D. Performed By: #### V ITB1 #### [facility] , Ammoniaon 06-21-2023 Ammonia (P) [Moles/Vol] 19 umol/L Normal 11-35 [facility] Comment on above: Result Comment: PERF ORMED BY: [place] [address] PATHOLOGIST DATA ENTRY PROCESSOR HARRY MARTI M.D. Performed By: #### H S TROP, CMP, CK, CBC #### [address] Basic Metabolic Panelon 110 Anion gap [Moles/Vol] 11.3 mmol/L Normal 6.0-15.0 [facility] Comment on above: Performed By: #### H S TROP, CMP, CK, CBC #### [address] Calcium [Mass/Vol] 9.4 mg/dL Normal 8.6-10.3 [facility] Comment on above: Performed By: #### H S TROP, CMP, CK, CBC #### [address] Chloride [Moles/Vol] 107 mmol/L Normal 98-107 [facility] Comment on above: Performed By: #### H S TROP, CMP, CK, CBC #### [address] CO2 [Moles/Vol] 25.7 mmol/L Normal 21.0-31.0 [facility] Comment on above: Performed By: #### H S TROP, CMP, CK, CBC #### [facility] [address] Creatinine [Mass/Vol] 0.83 mg/dL Normal 0.70-1.30 [facility] Comment on above: Performed By: #### H S TROP, CMP, CK, CBC #### [facility] [address] Creatinine Clr Calc Pharmacy 80.52 [facility] Comment on above: Result Comment: PERF ORMED BY: [place] [address] PATHOLOGIST DATA ENTRY PROCESSOR HARRY MARTI M.D. Performed By: #### H S TROP, CMP, CK, CBC #### [address] GFR/1.73 sq M.predicted MDRD (S/P/Bld) [Vol rate/Area] mL/min/{1.73_m2} [facility] Comment on above: Performed By: #### H S TROP, CMP, CK, CBC #### [address] Glucose [Mass/Vol] 174 mg/dL High 70-100 [facility] Comment on above: Result Comment: [facility] Glucose Reference Range is dependent on time and content of last meal. Glucose of more than 200 mg/dL in a nonstressed, ambulatory subject supports the diagnosis of Diabetes Mellitus. ADA recommended reference range Performed By: #### H S TROP, CMP, CK, CBC #### [address] Potassium [Moles/Vol] 4.0 mmol/L Normal 3.5-5.1 [facility] Comment on above: Performed By: #### H S TROP, CMP, CK, CBC #### [address] Sodium [Moles/Vol] 140 mmol/L Normal 136-145 [facility] Comment on above: Performed By: #### H S TROP, CMP, CK, CBC #### [facility] [address] [place] [address] Urea nitrogen [Mass/Vol] 11 mg/dL Normal 7-25 [facility] Comment on above: Performed By: #### H S TROP, CMP, CK, CBC #### [address] Hemogram CBC Without Diffon 06-21-2023 Erythrocyte distribution width (RBC) [Ratio] 14.7 % Normal 12.0-14.8 [facility] Comment on above: Performed By: #### H S TROP, CMP, CK, CBC #### [address] Hematocrit (Bld) [Volume fraction] 40.7 % Normal 38.8-50.0 [facility] Comment on above: Performed By: #### H S TROP, CMP, CK, CBC #### [address] Hemoglobin (Bld) [Mass/Vol] 13.9 g/dL Normal 13.0-17.0 [facility] Comment on above: Performed By: #### H S TROP, CMP, CK, CBC #### [address] MCH (RBC) [Entitic mass] 29.7 pg Normal 27.5-35.2 [facility] Comment on above: Performed By: #### H S TROP, CMP, CK, CBC #### [address] MCV (RBC) [Entitic vol] 86.8 fL Normal 83.5-101 [facility] Comment on above: Performed By: #### H S TROP, CMP, CK, CBC #### [address] Mean Corpuscular HGB Conc 34.2 g/dL Normal 32.5-35.6 [facility] Comment on above: Performed By: #### H S TROP, CMP, CK, CBC #### [address] Platelet mean volume (Bld) [Entitic vol] 7.3 fL Normal 6.6-10.1 [facility] Comment on above: Result Comment: PERF ORMED BY: [place] [address] PATHOLOGIST DATA ENTRY PROCESSOR HARRY MARTI M.D. Performed By: #### H S TROP, CMP, CK, CBC #### [facility] [address] Platelets (Bld) [#/Vol] 144 10*3/uL Low 150-450 [facility] Comment on above: Performed By: #### H S TROP, CMP, CK, CBC #### [facility] [address] RBC (Bld) [#/Vol] 4.69 10*6/uL Normal 3.90-5.[address] [facility] Comment on above: Performed By: #### H S TROP, CMP, CK, CBC #### [facility] [address] WBC (Bld) [#/Vol] 3.9 10*3/uL Low 4.1-10.5 [facility] Comment on above: Performed By: #### H S TROP, CMP, CK, CBC #### [facility] [address] [place] [address] COVID CepheidOrdered By: Huy Palacios on 06-20-2023 SARS-CoV-2 (COVID-19) Ab IA Ql Positive Negative [facility] Comment on above: This is a duplicate Cepheid Xpert Xpress CoV-2/Flu/RSV Plus RNA by RT-PCR result to be used for statistical tracking purpose only. SARS-CoV-2 (COVID-19) RNA MARIANNE+probe Ql (Unsp spec) [facility] COVID-19 / Flu A/B / [...] or Cepheid Disclaimer revoked sooner. PERFORMED BY: [place] [address] PATHOLOGIST DATA ENTRY PROCESSOR HARRY MARTI M.D. [facility] Comment on above: Performed By: #### H S TROP, CMP, CK, CBC #### [facility] [address] head/brain wo roc 06-20 CT head/brain wo con [facility] [place] [address] [place] [address] CT Scan Report Signed Patient: Yonatan Patel MR#: [id number] 6 : 1945 Acct:[id number] Age/Sex: 78 / M ADM Date: 06/20/23 Loc: Room: [address] [place] [address] Type: ADM INOo Attending Dr: Jassi Arias [...] Daisha Fernandez M.D.06/20/2023 8:34 AM Dictation Location: [place] [address] Transcribed By: [facility] 06/20/23833 Dictated By: Daisha Fernandez II, MD 06/20/23829 Signed By: 06/20/23833 [facility] Cepheid COVID PCR Positiveon 06-20-2023 SARS-CoV-2 (COVID-19) RNA MARIANNE+probe Ql (Unsp spec) Positive Critically abnormal Negative [facility] Comment on above: Result Comment: This is a duplicate CepDoNanzaid Xpert Xpress CoV-2/Flu/RSV Plus RNA by RT-PCR result to be used for statistical tracking purpose only. PERFORMED BY: [place] [address] PATHOLOGIST DATA ENTRY PROCESSOR HARRY MARTI M.D. Performed By: #### H S TROP, CMP, CK, CBC #### [address] Complete Blood Count Auto Di ffon 06-20-2023 Basophils (Bld) [#/Vol] 0.0 10*3/uL Normal 0.0-0.2 [facility] Comment on above: Result Comment: PERF ORMED BY: [place] [address] PATHOLOGIST DATA ENTRY PROCESSOR HARRY MARTI M.D. Performed By: #### H S TROP, CMP, CK, CBC #### [address] Basophils/100 WBC (Bld) 0.4 % Normal . [facility] Comment on above: Performed By: #### H S TROP, CMP, CK, CBC #### [place] [address] [place] Eosinophils (Bld) [#/Vol] 0.0 10*3/uL Normal 0.0-0.45 [facility] Comment on above: Performed By: #### H S TROP, CMP, CK, CBC #### [place] [address] [place] Eosinophils/100 WBC (Bld) 0.6 % Normal . [facility] Comment on above: Performed By: #### H S TROP, CMP, CK, CBC #### [address] Erythrocyte distribution width (RBC) [Ratio] 14.9 % High 12.0-14.8 [facility] Comment on above: Performed By: #### H S TROP, CMP, CK, CBC #### [address] Hematocrit (Bld) [Volume fraction] 43.3 % Normal 38.8-50.0 [facility] Comment on above: Performed By: #### H S TROP, CMP, CK, CBC #### [address] Hemoglobin (Bld) [Mass/Vol] 14.8 g/dL Normal 13.0-17.0 [facility] Comment on above: Performed By: #### H S TROP, CMP, CK, CBC #### [address] Lymphocytes (Bld) [#/Vol] 1.0 10*3/uL Normal 1.00-4.8 [facility] Comment on above: Performed By: #### H S TROP, CMP, CK, CBC #### [address] Lymphocytes/100 WBC (Bld) 20.8 % Normal . [facility] Comment on above: Performed By: #### H S TROP, CMP, CK, CBC #### [address] MCH (RBC) [Entitic mass] 30.0 pg Normal 27.5-35.2 [facility] Comment on above: Performed By: #### H S TROP, CMP, CK, CBC #### [address] MCV (RBC) [Entitic vol] 87.6 fL Normal 83.5-101 [facility] Comment on above: Performed By: #### H S TROP, CMP, CK, CBC #### [address] Mean Corpuscular HGB Conc 34.2 g/dL Normal 32.5-35.6 [facility] Comment on above: Performed By: #### H S TROP, CMP, CK, CBC #### [address] [place] [address] [place] Monocytes (Bld) [#/Vol] 0.8 10*3/uL Normal 0.0-0.8 [facility] Comment on above: Performed By: #### H S TROP, CMP, CK, CBC #### [address] Monocytes/100 WBC (Bld) 24.01 % High 0.00-20.00 [facility] Comment on above: Result Comment: For adults in ED, MDW > 20.0 may be associated with a higher risk of sepsis during the first 12 hrs of hospital admission Performed By: #### H S TROP, CMP, CK, CBC #### [address] Monocytes/100 WBC (Bld) 15.6 % Normal . [facility] Comment on above: Performed By: #### H S TROP, CMP, CK, CBC #### [address] Neutrophils (Bld) [#/Vol] 3.0 10*3/uL Normal 1.8-7.7 [facility] Comment on above: Performed By: #### H S TROP, CMP, CK, CBC #### [address] Neutrophils/100 WBC (Bld) 62.6 % Normal . [facility] Comment on above: Performed By: #### H S TROP, CMP, CK, CBC #### [address] NRBC% 0.4 /100{WBC} Normal 0-0.5 [facility] Comment on above: Performed By: #### H S TROP, CMP, CK, CBC #### [address] Platelet mean volume (Bld) [Entitic vol] 7.9 fL Normal 6.6-10.1 [facility] Comment on above: Performed By: #### H S TROP, CMP, CK, CBC #### [address] Platelets (Bld) [#/Vol] 154 10*3/uL Normal 150-450 [facility] Comment on above: Performed By: #### H S TROP, CMP, CK, CBC #### [address] RBC (Bld) [#/Vol] 4.94 10*6/uL Normal 3.90-5.[address] [facility] Comment on above: Performed By: #### H S TROP, CMP, CK, CBC #### [address] WBC (Bld) [#/Vol] 4.8 10*3/uL Normal 4.1-10.5 [facility] Comment on above: Performed By: #### H S TROP, CMP, CK, CBC #### [address] Comprehensive Metabolic Pane alex 06-20-2023 Albumin [Mass/Vol] 4.2 g/dL Normal 3.5-5.7 [facility] Comment on above: Performed By: #### H S TROP, CMP, CK, CBC #### [address] Albumin/Globulin [Mass ratio] 1.6 {ratio} Normal [facility] Comment on above: Performed By: #### H S TROP, CMP, CK, CBC #### [address] ALP [Catalytic activity/Vol] 53 U/L Normal 34-104 [facility] Comment on above: Performed By: #### H S TROP, CMP, CK, CBC #### [address] ALT [Catalytic activity/Vol] 31 U/L Normal 7-52 [facility] Comment on above: Performed By: #### H S TROP, CMP, CK, CBC #### [address] Anion gap [Moles/Vol] 9.2 mmol/L Normal 6.0-15.0 [facility] Comment on above: Performed By: #### H S TROP, CMP, CK, CBC #### [facility] [address] [place] [address] AST [Catalytic activity/Vol] 33 U/L Normal 13-39 [facility] Comment on above: Performed By: #### H S TROP, CMP, CK, CBC #### [facility] [address] [place] [address] Bilirubin [Mass/Vol] 1.0 mg/dL Normal 0.3-1.0 [facility] Comment on above: Performed By: #### H S TROP, CMP, CK, CBC #### [address] Calcium [Mass/Vol] 9.8 mg/dL Normal 8.6-10.3 [facility] Comment on above: Performed By: #### H S TROP, CMP, CK, CBC #### [address] Chloride [Moles/Vol] 107 mmol/L Normal 98-107 [facility] Comment on above: Performed By: #### H S TROP, CMP, CK, CBC #### [address] CO2 [Moles/Vol] 25.6 mmol/L Normal 21.0-31.0 [facility] Comment on above: Performed By: #### H S TROP, CMP, CK, CBC #### [address] Creatinine [Mass/Vol] 0.95 mg/dL Normal 0.70-1.30 [facility] Comment on above: Performed By: #### H S TROP, CMP, CK, CBC #### [address] Creatinine Clr Calc Pharmacy 70.44 Normal [facility] Comment on above: Result Comment: PERF ORMED BY: [place] [address] PATHOLOGIST DATA ENTRY PROCESSOR HARRY MARTI M.D. Performed By: #### H S TROP, CMP, CK, CBC #### [facility] [address] [place] [address] [place] GFR/1.73 sq M.predicted MDRD (S/P/Bld) [Vol rate/Area] mL/min/{1.73_m2} [facility] Comment on above: Performed By: #### H S TROP, CMP, CK, CBC #### [facility] [address] Globulin (S) [Mass/Vol] 2.7 g/dL [facility] Comment on above: Performed By: #### H S TROP, CMP, CK, CBC #### [facility] [address] Glucose [Mass/Vol] 94 mg/dL Normal 70-100 [facility] Comment on above: Result Comment: [facility] Glucose Reference Range is dependent on time and content of last meal. Glucose of more than 200 mg/dL in a nonstressed, ambulatory subject supports the diagnosis of Diabetes Mellitus. ADA recommended reference range Performed By: #### H S TROP, CMP, CK, CBC #### [facility] [address] Potassium [Moles/Vol] 3.8 mmol/L Normal 3.5-5.1 [facility] Comment on above: Performed By: #### H S TROP, CMP, CK, CBC #### [facility] [address] Protein [Mass/Vol] 6.9 g/dL Normal 6.4-8.9 [facility] Comment on above: Performed By: #### H S TROP, CMP, CK, CBC #### [facility] [address] Sodium [Moles/Vol] 138 mmol/L Normal 136-145 [facility] Comment on above: Performed By: #### H S TROP, CMP, CK, CBC #### [facility] [address] Urea nitrogen [Mass/Vol] 18 mg/dL Normal 7-25 [facility] Comment on above: Performed By: #### H S TROP, CMP, CK, CBC #### [address] Creatine Kinaseon 06-20-2023 CK [Catalytic activity/Vol] 113 U/L Normal 30-223 [facility] Comment on above: Performed By: #### H S TROP, CMP, CK, CBC #### [address] Troponin I High Sensitivityo n 06-20-2023 Troponin I High Sensitivity 7.8 pg/mL Normal 0.0-20.0 [facility] Comment on above: Result Comment: PERF ORMED BY: [place] [address] PATHOLOGIST DATA ENTRY PROCESSOR HARRY MARTI M.D. Performed By: #### H S TROP, CMP, CK, CBC #### [address] Urinalysison 06-20-2023 Appearance (U) Clear Normal Clear [facility] Comment on above: Order Comment: Name Collection Type:: Clean-Voided Midstream Performed By: #### H S TROP, CMP, CK, CBC #### [address] Bilirubin,Urine Negative Normal Negative [facility] Comment on above: Order Comment: Name Collection Type:: Clean-Voided Midstream Performed By: #### H S TROP, CMP, CK, CBC #### [address] Color (U) Yellow Normal Yellow [facility] Comment on above: Order Comment: Name Collection Type:: Clean-Voided Midstream Performed By: #### H S TROP, CMP, CK, CBC #### [address] Glucose Ql (U) Normal Normal Normal [facility] Comment on above: Order Comment: Name Collection Type:: Clean-Voided Midstream Performed By: #### H S TROP, CMP, CK, CBC #### [facility] [address] [place] [address] Ketones Ql (U) Negative Normal Negative [facility] Comment on above: Order Comment: Name Collection Type:: Clean-Voided Midstream Performed By: #### H S TROP, CMP, CK, CBC #### [address] Leukocyte esterase Test strip Ql (U) Negative Normal Negative [facility] Comment on above: Order Comment: Name Collection Type:: Clean-Voided Midstream Performed By: #### H S TROP, CMP, CK, CBC #### [place] [address] [place] Nitrite,Urine Negative Normal Negative [facility] Comment on above: Order Comment: Name Collection Type:: Clean-Voided Midstream Performed By: #### H S TROP, CMP, CK, CBC #### [address] Occult Blood,Urine Negative Normal Negative [facility] Comment on above: Order Comment: Name Collection Type:: Clean-Voided Midstream Result Comment: PERF ORMED BY: [place] [address] PATHOLOGIST DATA ENTRY PROCESSOR HARRY MARTI M.D. Performed By: #### H S TROP, CMP, CK, CBC #### [address] pH (U) 5.5 [pH] Normal 5.0-9.0 [facility] Comment on above: Order Comment: Name Collection Type:: Clean-Voided Midstream Performed By: #### H S TROP, CMP, CK, CBC #### [place] [address] [place] Protein,Urine Negative Normal Negative [facility] Comment on above: Order Comment: Name Collection Type:: Clean-Voided Midstream Performed By: #### H S TROP, CMP, CK, CBC #### [place] [address] [place] Specificy Powers,Urine 1.005 Normal 1.001-1.03 0 [facility] Comment on above: Order Comment: Name Collection Type:: Clean-Voided Midstream Performed By: #### H S TROP, CMP, CK, CBC #### [facility] [address] Urobilinogen,Urine Normal Normal Normal [facility] Comment on above: Order Comment: Name Collection Type:: Clean-Voided Midstream Performed By: #### H S TROP, CMP, CK, CBC #### [facility] [address] XR chest 2V*on 06-20-2023 XR chest 2V* [facility] Main [place] [address] [place] [address] XRay Report Signed Patient: Yonatan Patel MR#: [id number] 6 : 1945 Acct:[id number] Age/Sex: 78 / M ADM Date: 06/20/23 Loc: Room: [address] [place] [address] Type: ADM INOo Attending Dr: Jassi Arias [...] Daisha Fernandez M.D.06/20/2023 11:21 AM Dictation Location: [place] [address] Transcribed By: [facility] 06/20/23 1121 Dictated By: Daisha Fernandez II, MD 06/20/23 1120 Signed By: 06/20/23 1121 Normal [facility] Alanine aminotransferase [En zymatic activity/volume] in Serum or PlasmaOrdered By: PROVIDER TEMP on 06-19-2023 ALT [Catalytic activity/Vol] 31 U/L 7-52 [facility] Albumin [Mass/volume] in Ser um or Plasma by Bromocresol green (BCG) dye binding methoOrdered By: PROVIDER TEMP on 06-19-2023 Albumin BCG dye [Mass/Vol] 4.2 g/dL 3.5-5.7 [facility] Alkaline phosphatase [Enzyma tic activity/volume] in Serum or PlasmaOrdered By: PROVIDER TEMP on 06-19-2023 ALP [Catalytic activity/Vol] 53 U/L 34-104 [facility] Aspartate aminotransferase [ Enzymatic activity/volume] in Serum or PlasmaOrdered By: PROVIDER TEMP on 06-19-2023 AST [Catalytic activity/Vol] 33 U/L 13-39 [facility] Basophils Auto (Bld) [#/Vol] Ordered By: PROVIDER TEMP on 06-19-2023 Basophils (Bld) [#/Vol] 0.0 10*3/uL 0.0-0.2 [facility] Basophils/100 WBC Auto (Bld) Ordered By: PROVIDER TEMP on 06-19-2023 Basophils/100 WBC (Bld) 0.4 % . [facility] Bilirubin Auto test strip Ql (U)Ordered By: PROVIDER TEMP on 06-19-2023 Bilirubin Ql (U) Negative Negative [facility] Bilirubin.total [Mass/volume ] in Serum or PlasmaOrdered By: PROVIDER TEMP on 06-19-2023 Bilirubin [Mass/Vol] 1.0 mg/dL 0.3-1.0 [facility] Calcium [Mass/volume] in Ser um or PlasmaOrdered By: PROVIDER TEMP on 06-19-2023 Calcium [Mass/Vol] 9.8 mg/dL 8.6-10.3 [facility] Carbon dioxide, total [Moles /volume] in Serum or PlasmaOrdered By: PROVIDER TEMP on 06-19-2023 CO2 [Moles/Vol] 25.6 mmol/L 21.0-31.0 [facility] Chloride [Moles/volume] in S raymundo or PlasmaOrdered By: PROVIDER TEMP on 06-19-2023 Chloride [Moles/Vol] 107 mmol/L 98-107 [facility] Creatine kinase [Enzymatic a ctivity/volume] in Serum or PlasmaOrdered By: PROVIDER TEMP on 06-19-2023 CK [Catalytic activity/Vol] 113 U/L 30-223 [facility] Creatinine [Mass/volume] in Serum or PlasmaOrdered By: PROVIDER TEMP on 06-19-2023 Creatinine [Mass/Vol] 0.95 mg/dL 0.70-1.30 [facility] Eosinophils Auto (Bld) [#/Vo l]Ordered By: PROVIDER TEMP on 06-19-2023 Eosinophils (Bld) [#/Vol] 0.0 10*3/uL 0.0-0.45 [facility] Eosinophils/100 WBC Auto (Bl d)Ordered By: PROVIDER TEMP on 06-19-2023 Eosinophils/100 WBC (Bld) 0.6 % . [facility] Erythrocyte distribution wid th Auto (RBC) [Ratio]Ordered By: PROVIDER TEMP on 06-19-2023 Erythrocyte distribution width (RBC) [Ratio] 14.9 % 12.0-14.8 [facility] Globulin Calc (S) [Mass/Vol] Ordered By: PROVIDER TEMP on 06-19-2023 Globulin (S) [Mass/Vol] 2.7 g/dL [facility] Glucose [Mass/volume] in Ser um or PlasmaOrdered By: PROVIDER TEMP on 06-19-2023 Glucose [Mass/Vol] 94 mg/dL 70-100 [facility] Comment on above: ADA recommended refe rence rangeRandom Glucose Reference Range is dependent on time and content of last meal. Glucose of more than 200 mg/dL in a nonstressed, ambulatory subject supports the diagnosis of Diabetes Mellitus. Hematocrit Auto (Bld) [Volum e fraction]Ordered By: PROVIDER TEMP on 06-19-2023 Hematocrit (Bld) [Volume fraction] 43.3 % 38.8-50.0 [facility] Hemoglobin [Mass/volume] in BloodOrdered By: PROVIDER TEMP on 06-19-2023 Hemoglobin (Bld) [Mass/Vol] 14.8 g/dL 13.0-17.0 [facility] Ketones Auto test strip (U) [Mass/Vol]Ordered By: PROVIDER TEMP on 06-19-2023 Ketones (U) [Mass/Vol] Negative [facility] Leukocytes [#/volume] correc airam for nucleated erythrocytes in Blood by Automated counOrdered By: PROVIDER TEMP on 06-19-2023 WBC corrected for nucl RBC Auto (Bld) [#/Vol] 4.8 10*3/uL 4.1-10.5 [facility] Lymphocytes Auto (Bld) [#/Vo l]Ordered By: PROVIDER TEMP on 06-19-2023 Lymphocytes (Bld) [#/Vol] 1.0 10*3/uL 1.00-4.8 [facility] Lymphocytes/100 WBC Auto (Bl d)Ordered By: PROVIDER TEMP on 06-19-2023 Lymphocytes/100 WBC (Bld) 20.8 % . [facility] MCH Auto (RBC) [Entitic mass ]Ordered By: PROVIDER TEMP on 06-19-2023 MCH (RBC) [Entitic mass] 30.0 pg 27.5-35.2 [facility] MCHC Auto (RBC) [Mass/Vol]Or dered By: PROVIDER TEMP on 06-19-2023 MCHC (RBC) [Mass/Vol] 34.2 g/dL 32.5-35.6 [facility] MCV Auto (RBC) [Entitic vol] Ordered By: PROVIDER TEMP on 06-19-2023 MCV (RBC) [Entitic vol] 87.6 fL 83.5-101 [facility] Monocyte distribution width [Entitic volume] in Blood by AutomatedOrdered By: PROVIDER TEMP on 06-19-2023 Monocyte distribution width Auto (Bld) [Entitic vol] 24.01 % 0.00-20.00 [facility] Comment on above: For adults in ED, MD W > 20.0 may be associated with a higher risk of sepsis during the first 12 hrs of hospital admission Monocytes Auto (Bld) [#/Vol] Ordered By: PROVIDER TEMP on 06-19-2023 Monocytes (Bld) [#/Vol] 0.8 10*3/uL 0.0-0.8 [facility] Monocytes/100 WBC Auto (Bld) Ordered By: PROVIDER TEMP on 06-19-2023 Monocytes/100 WBC (Bld) 15.6 % . [facility] Neutrophils Auto (Bld) [#/Vo l]Ordered By: PROVIDER TEMP on 06-19-2023 Neutrophils (Bld) [#/Vol] 3.0 10*3/uL 1.8-7.7 [facility] Neutrophils/100 WBC Auto (Bl d)Ordered By: PROVIDER TEMP on 06-19-2023 Neutrophils/100 WBC (Bld) 62.6 % . [facility] No Panel InformationOrdered By: PROVIDER TEMP on 06-19-2023 Estimated GFR (CKD-EPI) > 60.0 mL/Min [facility] Pharmacy Creatinine Clearance (Chem 70.44 [facility] Nucleated erythrocytes [Pres ence] in Blood by Automated countOrdered By: PROVIDER TEMP on 06-19-2023 Nucleated RBC Auto Ql (Bld) 0.4 /100{WBC} 0-0.5 [facility] Platelet mean volume Auto (B ld) [Entitic vol]Ordered By: PROVIDER TEMP on 06-19-2023 Platelet mean volume (Bld) [Entitic vol] 7.9 fL 6.6-10.1 [facility] Platelets Auto (Bld) [#/Vol] Ordered By: PROVIDER TEMP on 06-19-2023 Platelets (Bld) [#/Vol] 154 10*3/uL 150-450 [facility] Potassium [Moles/volume] in Serum or PlasmaOrdered By: PROVIDER TEMP on 06-19-2023 Potassium [Moles/Vol] 3.8 mmol/L 3.5-5.1 [facility] Protein Auto test strip (U) [Mass/Vol]Ordered By: PROVIDER TEMP on 06-19-2023 Protein (U) [Mass/Vol] Negative Negative [facility] Protein [Mass/volume] in Ser um or PlasmaOrdered By: PROVIDER TEMP on 06-19-2023 Protein [Mass/Vol] 6.9 g/dL 6.4-8.9 [facility] RBC Auto (Bld) [#/Vol]Ordere d By: PROVIDER TEMP on 06-19-2023 RBC (Bld) [#/Vol] 4.94 10*6/uL 3.90-5.[address] [facility] Serum or plasma albumin/glob ulin mass ratioOrdered By: PROVIDER TEMP on 06-19-2023 Albumin/Globulin [Mass ratio] 1.6 {ratio} [facility] Serum or plasma anion gap de terminationOrdered By: PROVIDER TEMP on 06-19-2023 Anion gap [Moles/Vol] 9.2 mmol/L 6.0-15.0 [facility] Sodium [Moles/volume] in Ser um or PlasmaOrdered By: PROVIDER TEMP on 06-19-2023 Sodium [Moles/Vol] 138 mmol/L 136-145 [facility] Troponin I.cardiac [Mass/vol ume] in Serum or Plasma by Detection limit <= 0.01 ng/Ordered By: PROVIDER TEMP on 06-19-2023 Troponin I.cardiac DL <= 0.01 ng/mL [Mass/Vol] 7.8 pg/mL 0.0-20.0 [facility] Urea nitrogen [Mass/volume] in Serum or PlasmaOrdered By: PROVIDER TEMP on 06-19-2023 Urea nitrogen [Mass/Vol] 18 mg/dL 7-25 [facility] Urine appearanceOrdered By: PROVIDER TEMP on 06-19-2023 Appearance (U) Clear Clear [facility] Urine colorOrdered By: SOLE JEANETTE TEMP on 06-19-2023 Color (U) Yellow Yellow [facility] Urine glucose measurement by automated test strip (mass/volume)Ordered By: PROVIDER TEMP on 06-19-2023 Glucose Auto test strip (U) [Mass/Vol] Normal mg/dL Normal [facility] Urine hemoglobin detection b y automated test stripOrdered By: PROVIDER TEMP on 06-19-2023 Hemoglobin Auto test strip Ql (U) Negative Negative [facility] Urine leukocyte esterase det ection by automated test stripOrdered By: PROVIDER TEMP on 06-19-2023 Leukocyte esterase Auto test strip Ql (U) Negative Negative [facility] Urine nitrite detection by a utomated test stripOrdered By: PROVIDER TEMP on 06-19-2023 Nitrite Auto test strip Ql (U) Negative Negative [facility] Urobilinogen Auto test strip (U) [Mass/Vol]Ordered By: PROVIDER TEMP on 06-19-2023 Urobilinogen (U) [Mass/Vol] Normal mg/dL Normal [facility] WBC Auto (Bld) [#/Vol]Ordere d By: PROVIDER TEMP on 06-19-2023 WBC (Bld) [#/Vol] 4.8 10*3/uL 4.1-10.5 [facility] pH Auto test strip (U)Ordere d By: PROVIDER TEMP on 06-19-2023 pH (U) 1.005 [pH] 1.001-1.03 0 [facility] pH (U) 5.5 [pH] 5.0-9.0 [facility] ECH echo transthoracicon [facility] echo transthoracic [facility] [place] [address] Echocardiogram Signed Patient: Yonatan Patel MR#: [id number] 6 : 1945 Acct:[id number] Age/Sex: 77 / M ADM Date: 03/01/23 Loc: Room: [address] [place] [address] Type: ADM INOo Attending Dr: Angely Lee DO Ordering Provider: Bobo Villagomez MD Date of Service: 03/01/23 [facility] echo transthoracic: Neuro Symptoms/Deficit Copies to: Sinan Jolly MD, [facility] Bobo Villagomez MD Weight: 188 lb [...] Signed By: Sinan Jolly MD, FACC 03/02/23 1215 [facility] MR cervical spine wo conon 0 03-02-2023 MR cervical spine wo [facility] [place] [address] MRI Report Signed Patient: Yonatan Patel MR#: [id number] 6 : 1945 Acct:[id number] Age/Sex: 77 / M ADM Date: 03/01/23 Loc: Room: [address] [place] [address] Type: ADM INOo Attending Dr: Angely Lee [...] Daisha Fernandez M.D.03/02/2023 5:11 PM Dictation Location: [place] [address] Transcribed By: [facility] 03/02/231710 Dictated By: Daisha Fernandez II, MD 03/02/23 170 Signed By: 03/02/231710 Normal [facility] MR lumbar spine wo conon MR lumbar spine wo con [facility] [place] [address] [place] [address] MRI Report Signed Patient: Yonatan Patel MR#: [id number] 6 : 1945 Acct:[id number] Age/Sex: 77 / M ADM Date: 03/01/23 Loc: 3T Room: [address] [place] [address] Type: ADM INOo Attending Dr: Angely Lee [...] Daisha Fernandez M.D.03/02/2023 5:18 PM Dictation Location: [place] [address] Transcribed By: [facility] 03/02/231717 Dictated By: Daisha Fernandez II, MD 03/02/231710 Signed By: 03/02/231717 Normal [facility] A1C with Estimated Average [place] 03-01-2023 Glucose [Mass/Vol] 123 mg/dL Normal [facility] Comment on above: Order Comment: Comme nt add on Result Comment: PERF ORMED BY: [place] [address] PATHOLOGIST DATA ENTRY PROCESSOR HARRY MARTI M.D. Performed By: #### A 1C WT Krista, LIPID #### [facility] [address] [place] [address] HbA1c (Bld) [Mass fraction] 5.9 % High 4.3-5.6 [facility] Comment on above: Order Comment: Comme nt add on Result Comment: Incr eased risk for diabetes: 5.7 - 6.4 diabetes: >6.4 glycemic control for adults with diabetes: <7.0 Performed By: #### A 1C WTH eA, LIPID #### [facility] [address] [place] [address] Activated partial thrombopla stin time (aPTT) in platelet poor plasma by coagulation aOrdered By: Alejo Lynn on 03-01-2023 aPTT Coag (PPP) [Time] 27.2 s 25.1-36.5 [facility] Alanine aminotransferase [En zymatic activity/volume] in Serum or PlasmaOrdered By: Alejo Lynn on 03-01-2023 ALT [Catalytic activity/Vol] 34 U/L 7-52 [facility] Albumin [Mass/volume] in Ser um or Plasma by Bromocresol green (BCG) dye binding methoOrdered By: Alejo Lynn on 03-01-2023 Albumin BCG dye [Mass/Vol] 4.4 g/dL 3.5-5.7 [facility] Alkaline phosphatase [Enzyma tic activity/volume] in Serum or PlasmaOrdered By: Alejo Lynn on 03-01-2023 ALP [Catalytic activity/Vol] 61 U/L 34-104 [facility] Aspartate aminotransferase [ Enzymatic activity/volume] in Serum or PlasmaOrdered By: Alejo Lynn on 03-01-2023 AST [Catalytic activity/Vol] 30 U/L 13-39 [facility] B-Type Natriuretic Peptideon 03-01-2023 Natriuretic peptide B (Bld) [Mass/Vol] 96.0 pg/mL Normal 5-100 [facility] Comment on above: Result Comment: PERF ORMED BY: [place] [address] PATHOLOGIST DATA ENTRY PROCESSOR HARRY MARTI M.D. Performed By: #### H S TROP, CMP, CK, CBC #### [address] Basic Metabolic Panelon 02-14 Anion gap [Moles/Vol] 10.3 mmol/L Normal 6.0-15.0 [facility] Comment on above: Performed By: #### H S TROP, CMP, CK, CBC #### [facility] [address] [place] [address] [place] Calcium [Mass/Vol] 9.7 mg/dL Normal 8.6-10.3 [facility] Comment on above: Performed By: #### H S TROP, CMP, CK, CBC #### [facility] [address] [place] [address] [place] Chloride [Moles/Vol] 107 mmol/L Normal 98-107 [facility] Comment on above: Performed By: #### H S TROP, CMP, CK, CBC #### [address] CO2 [Moles/Vol] 26.0 mmol/L Normal 21.0-31.0 [facility] Comment on above: Performed By: #### H S TROP, CMP, CK, CBC #### [address] Creatinine [Mass/Vol] 0.91 mg/dL Normal 0.70-1.30 [facility] Comment on above: Performed By: #### H S TROP, CMP, CK, CBC #### [address] Creatinine Clr Calc Pharmacy 76.53 [facility] Comment on above: Result Comment: PERF ORMED BY: [place] [address] PATHOLOGIST DATA ENTRY PROCESSOR HARRY MARTI M.D. Performed By: #### H S TROP, CMP, CK, CBC #### [address] GFR/1.73 sq M.predicted MDRD (S/P/Bld) [Vol rate/Area] mL/min/{1.73_m2} [facility] Comment on above: Performed By: #### H S TROP, CMP, CK, CBC #### [address] Glucose [Mass/Vol] 106 mg/dL High 70-100 [facility] Comment on above: Result Comment: [place] [facility] Glucose Reference Range is dependent on time and content of last meal. Glucose of more than 200 mg/dL in a nonstressed, ambulatory subject supports the diagnosis of Diabetes Mellitus. ADA recommended reference range Performed By: #### H S TROP, CMP, CK, CBC #### [facility] [address] Potassium [Moles/Vol] 4.3 mmol/L Normal 3.5-5.1 [facility] Comment on above: Performed By: #### H S TROP, CMP, CK, CBC #### [facility] [address] [place] [address] [place] Sodium [Moles/Vol] 139 mmol/L Normal 136-145 [facility] Comment on above: Performed By: #### H S TROP, CMP, CK, CBC #### [facility] [address] [place] [address] [place] Urea nitrogen [Mass/Vol] 16 mg/dL Normal 7-25 [facility] Comment on above: Performed By: #### H S TROP, CMP, CK, CBC #### [facility] [address] Basophils Auto (Bld) [#/Vol] Ordered By: Alejo Lynn on 03-01-2023 Basophils (Bld) [#/Vol] 0.0 10*3/uL 0.0-0.2 [facility] Basophils/100 WBC Auto (Bld) Ordered By: Alejo Lynn on 03-01-2023 Basophils/100 WBC (Bld) 0.7 % . [facility] Bilirubin Test strip Ql (U)O rdered By: Alejo Lynn on 03-01-2023 Bilirubin Ql (U) Negative Negative [facility] Bilirubin.direct [Mass/volum e] in Serum or PlasmaOrdered By: Alejo Lynn on 03-01-2023 Bilirubin.direct [Mass/Vol] 0.30 mg/dL 0.03-0.18 [facility] Bilirubin.total [Mass/volume ] in Serum or PlasmaOrdered By: Alejo Lynn on 03-01-2023 Bilirubin [Mass/Vol] 1.7 mg/dL 0.3-1.0 [facility] Comment on above: Samples from patient s who have taken Naproxen have shown spurious elevation in Total Bilirubin levels. A metabolite of Naproxen, O-desmethylnaproxen, has been shown to interfere with the Gill method for measuring Total Bilirubin. CT head stroke alert wo cono n 03-01-2023 CT head stroke alert wo con [facility] [address] [place] [address] [place] [address] CT Scan Report Signed Patient: Yonatan Patel MR#: [id number] 6 : 1945 Acct:[id number] Age/Sex: 77 / M ADM Date: 03/01/23 Loc: ER Room: Type: [facility] ER Attending Dr: Copies to: [...] Selena Reid M.D.03/01/2023 8:13 AM Dictation Location: [place] [address] Transcribed By: [facility] 03/01/23812 Dictated By: Selena Reid MD 03/01/23 0807 Signed By: 03/01/23812 Normal [facility] Calcium [Mass/volume] in Ser um or PlasmaOrdered By: Alejo Lynn on 03-01-2023 Calcium [Mass/Vol] 9.7 mg/dL 8.6-10.3 [facility] Carbon dioxide, total [Moles /volume] in Serum or PlasmaOrdered By: Alejo Lynn on 03-01-2023 CO2 [Moles/Vol] 26.0 mmol/L 21.0-31.0 [facility] Chloride [Moles/volume] in S raymundo or PlasmaOrdered By: Alejo Lynn on 03-01-2023 Chloride [Moles/Vol] 107 mmol/L 98-107 [facility] Color Auto (U)Ordered By: Franco Lynn on 03-01-2023 Color (U) Yellow Yellow [facility] Complete Blood Count Auto Di ffon 03-01-2023 Basophils (Bld) [#/Vol] 0.0 10*3/uL Normal 0.0-0.2 [facility] Comment on above: Result Comment: PERF ORMED BY: [place] [address] PATHOLOGIST DATA ENTRY PROCESSOR HARRY MARTI M.D. Performed By: #### H S TROP, CMP, CK, CBC #### [address] Basophils/100 WBC (Bld) 0.7 % Normal . [facility] Comment on above: Performed By: #### H S TROP, CMP, CK, CBC #### [facility] [address] [place] [address] Eosinophils (Bld) [#/Vol] 0.1 10*3/uL Normal 0.0-0.45 [facility] Comment on above: Performed By: #### H S TROP, CMP, CK, CBC #### [address] Eosinophils/100 WBC (Bld) 1.4 % Normal . [facility] Comment on above: Performed By: #### H S TROP, CMP, CK, CBC #### [facility] [address] [place] [address] Erythrocyte distribution width (RBC) [Ratio] 14.5 % Normal 12.0-14.8 [facility] Comment on above: Performed By: #### H S TROP, CMP, CK, CBC #### [facility] [address] [place] [address] Hematocrit (Bld) [Volume fraction] 43.2 % Normal 38.8-50.0 [facility] Comment on above: Performed By: #### H S TROP, CMP, CK, CBC #### [facility] [address] Hemoglobin (Bld) [Mass/Vol] 14.9 g/dL Normal 13.0-17.0 [facility] Comment on above: Performed By: #### H S TROP, CMP, CK, CBC #### [address] Lymphocytes (Bld) [#/Vol] 1.3 10*3/uL Normal 1.00-4.8 [facility] Comment on above: Performed By: #### H S TROP, CMP, CK, CBC #### [address] Lymphocytes/100 WBC (Bld) 23.7 % Normal . [facility] Comment on above: Performed By: #### H S TROP, CMP, CK, CBC #### [address] MCH (RBC) [Entitic mass] 29.6 pg Normal 27.5-35.2 [facility] Comment on above: Performed By: #### H S TROP, CMP, CK, CBC #### [address] MCV (RBC) [Entitic vol] 86.1 fL Normal 83.5-101 [facility] Comment on above: Performed By: #### H S TROP, CMP, CK, CBC #### [address] Mean Corpuscular HGB Conc 34.4 g/dL Normal 32.5-35.6 [facility] Comment on above: Performed By: #### H S TROP, CMP, CK, CBC #### [address] Monocytes (Bld) [#/Vol] 0.4 10*3/uL Normal 0.0-0.8 [facility] Comment on above: Performed By: #### H S TROP, CMP, CK, CBC #### [address] Monocytes/100 WBC (Bld) 17.75 % Normal 0.00-20.00 [facility] Comment on above: Performed By: #### H S TROP, CMP, CK, CBC #### [place] [address] [place] Monocytes/100 WBC (Bld) 8.3 % Normal . [facility] Comment on above: Performed By: #### H S TROP, CMP, CK, CBC #### [address] Neutrophils (Bld) [#/Vol] 3.5 10*3/uL Normal 1.8-7.7 [facility] Comment on above: Performed By: #### H S TROP, CMP, CK, CBC #### [address] Neutrophils/100 WBC (Bld) 65.9 % Normal . [facility] Comment on above: Performed By: #### H S TROP, CMP, CK, CBC #### [address] NRBC% 0.3 /100{WBC} Normal 0-0.5 [facility] Comment on above: Performed By: #### H S TROP, CMP, CK, CBC #### [address] Platelet mean volume (Bld) [Entitic vol] 8.0 fL Normal 6.6-10.1 [facility] Comment on above: Performed By: #### H S TROP, CMP, CK, CBC #### [place] [address] [place] Platelets (Bld) [#/Vol] 143 10*3/uL Low 150-450 [facility] Comment on above: Performed By: #### H S TROP, CMP, CK, CBC #### [place] [address] [place] RBC (Bld) [#/Vol] 5.02 10*6/uL Normal 3.90-5.[address] [facility] Comment on above: Performed By: #### H S TROP, CMP, CK, CBC #### [facility] [address] WBC (Bld) [#/Vol] 5.4 10*3/uL Normal 4.1-10.5 [facility] Comment on above: Performed By: #### H S TROP, CMP, CK, CBC #### [facility] [address] [place] [id number] [place] Creatine Kinaseon 03-01-2023 CK [Catalytic activity/Vol] 178 U/L Normal [facility] Comment on above: Performed By: #### H S TROP, CMP, CK, CBC #### [facility] [address] Creatine kinase [Enzymatic a ctivity/volume] in Serum or PlasmaOrdered By: Alejo Lynn on 03-01-2023 CK [Catalytic activity/Vol] 178 U/L [facility] Creatinine [Mass/volume] in Serum or PlasmaOrdered By: Alejo Lynn on 03-01-2023 Creatinine [Mass/Vol] 0.91 mg/dL 0.70-1.30 [facility] ECG 12 lead ECGon 03-01-2023 ECG 12 lead ECG [facility] [address] [place] [address] [place] [address] Electrocardiograph Report Signed Patient: Yonatan Patel MR#: [id number] 6 : 1945 Acct:[id number] Age/Sex: 77 / M ADM Date: 03/01/23 Loc: Room: [address] [place] [address] Type: ADM INOo Attending Dr: Bobo Villagomez [...] longer present Confirmed by Alejo Lynn DO ([id number]) on 03/01/2023 3:12:57 PM Referred By: Electronically Signed By:Alejo Lynn DO Transcribed By: MUS Signed By Alejo Lynn DO 3 1513 Normal [facility] Eosinophils Auto (Bld) [#/Vo l]Ordered By: Alejo Lynn on 03-01-2023 Eosinophils (Bld) [#/Vol] 0.1 10*3/uL 0.0-0.45 [facility] Eosinophils/100 WBC Auto (Bl d)Ordered By: Alejo Lynn on 03-01-2023 Eosinophils/100 WBC (Bld) 1.4 % . [facility] Erythrocyte distribution wid th Auto (RBC) [Ratio]Ordered By: Alejo Lynn on 03-01-2023 Erythrocyte distribution width (RBC) [Ratio] 14.5 % 12.0-14.8 [facility] Globulin Calc (S) [Mass/Vol] Ordered By: Alejo Lynn on 03-01-2023 Globulin (S) [Mass/Vol] 2.3 g/dL [facility] Glucose [Mass/volume] in Ser um or PlasmaOrdered By: Alejo Lynn on 03-01-2023 Glucose [Mass/Vol] 106 mg/dL 70-100 [facility] Comment on above: ADA recommended refe rence rangeRandom Glucose Reference Range is dependent on time and content of last meal. Glucose of more than 200 mg/dL in a nonstressed, ambulatory subject supports the diagnosis of Diabetes Mellitus. Hematocrit Auto (Bld) [Volum e fraction]Ordered By: Alejo Lynn on 03-01-2023 Hematocrit (Bld) [Volume fraction] 43.2 % 38.8-50.0 [facility] Hemoglobin [Mass/volume] in BloodOrdered By: Alejo Lynn on 03-01-2023 Hemoglobin (Bld) [Mass/Vol] 14.9 g/dL 13.0-17.0 [facility] Hepatic Panelon 03-01-2023 Albumin [Mass/Vol] 4.4 g/dL Normal 3.5-5.7 [facility] Comment on above: Performed By: #### H S TROP, CMP, CK, CBC #### [facility] [address] Albumin/Globulin [Mass ratio] 1.9 {ratio} Normal [facility] Comment on above: Performed By: #### H S TROP, CMP, CK, CBC #### [facility] [address] ALP [Catalytic activity/Vol] 61 U/L Normal 34-104 [facility] Comment on above: Performed By: #### H S TROP, CMP, CK, CBC #### [facility] [address] ALT [Catalytic activity/Vol] 34 U/L Normal 7-52 [facility] Comment on above: Performed By: #### H S TROP, CMP, CK, CBC #### [address] AST [Catalytic activity/Vol] 30 U/L Normal 13-39 [facility] Comment on above: Performed By: #### H S TROP, CMP, CK, CBC #### [address] Bilirubin [Mass/Vol] 1.7 mg/dL High 0.3-1.0 [facility] Comment on above: Result Comment[facility] who have [facility]en have shown spurious elevation in Total Bilirubin levels. A metabolite of Naproxen, O-desmethylnaproxen, has been shown to interfere with the Jendrassik-Grof method for measuring Total Bilirubin. Performed By: #### H S TROP, CMP, CK, CBC #### [address] Bilirubin,Indirect 1.4 mg/dL Normal [facility] Comment on above: Performed By: #### H S TROP, CMP, CK, CBC #### [address] Bilirubin.indirect [Mass/Vol] 0.30 mg/dL High 0.03-0.18 [facility] Comment on above: Performed By: #### H S TROP, CMP, CK, CBC #### [facility] [address] Globulin (S) [Mass/Vol] 2.3 g/dL Normal [facility] Comment on above: Performed By: #### H S TROP, CMP, CK, CBC #### [facility] [address] Protein [Mass/Vol] 6.7 g/dL Normal 6.4-8.9 [facility] Comment on above: Performed By: #### H S TROP, CMP, CK, CBC #### [facility] [address] Ketones Auto test strip (U) [Mass/Vol]Ordered By: Alejo Lynn on 03-01-2023 Ketones (U) [Mass/Vol] Negative Negative [facility] - CoagulationOrde red By: Alejo Lynn on 03-01-2023 PT Coag (PPP) [Time] 11.6 s 9.0-12.9 [facility] Leukocytes [#/volume] correc airam for nucleated erythrocytes in Blood by Automated counOrdered By: Alejo Lynn on 03-01-2023 WBC corrected for nucl RBC Auto (Bld) [#/Vol] 5.4 10*3/uL 4.1-10.5 [facility] Lipid Panelon 03-01-2023 Cholesterol [Mass/Vol] 96 mg/dL Low 140-200 [facility] Comment on above: Order Comment: Comme nt add on Result Comment: Chol less than 200 mg/dl low risk Chol 201-239 mg/dl borderline risk Chol 240 mg/dl and greater high risk Performed By: #### A 1C WT eA, LIPID #### [facility] [address] Cholesterol in HDL [Mass/Vol] 36 mg/dL Normal 23-92 [facility] Comment on above: Order Comment: Comme nt add on Result Comment: HDL CHOL ATP-III CLASSIFICATION Cardiovascular Risk HDL > or equal to 60 mg/dL LOW HDL < 40 mg/dL HIGH Performed By: #### A 1C WT eA, LIPID #### [facility] [address] Cholesterol.total/Chol esterol in HDL [Mass ratio] 2.7 {ratio} Normal <5.0 [facility] Comment on above: Order Comment: Comme nt add on Result Comment: PERF ORMED BY: [place] [address] PATHOLOGIST DATA ENTRY PROCESSOR HARRY MARTI M.D. Performed By: #### A 1C WT eA, LIPID #### [address] LDL Cholesterol,Calculated 39 mg/dL Normal 0-100 [facility] Comment on above: Order Comment: Comme nt add on Result Comment: LDL ATP III CLASSIFICATION LDL less than 100 mg/dL Optimal LDL 100-129 mg/dL Near or above optimal LDL 130-159 mg/dL Borderline high LDL 160-189 mg/dL High LDL greater than 189 mg/dL Very high Performed By: #### A 1C WT eA, LIPID #### [address] Triglyceride w/Reflex 106 mg/dL Normal 0-149 [facility] Comment on above: Order Comment: Comme nt add on Result Comment: TRIG ATP III CLASSIFICATION TRIG less than 150 mg/dL Normal TRIG 150-199 mg/dL Borderline high TRIG 200-500 mg/dL High TRIG greater than 500 mg/dL Very high Standard traceable to the Center for Disease Conrtrol and Prevention (CDC) test method. Performed By: #### A 1C WT eA, LIPID #### [facility] [address] VLDL CHOLESTEROL 21 mg/dL Normal [facility] Comment on above: Order Comment: Comme nt add on Performed By: #### A 1C WTH eA, LIPID #### [facility] [address] Lymphocytes Auto (Bld) [#/Vo l]Ordered By: Alejo Lynn on 03-01-2023 Lymphocytes (Bld) [#/Vol] 1.3 10*3/uL 1.00-4.8 [facility] Lymphocytes/100 WBC Auto (Bl d)Ordered By: Alejo Lynn on 03-01-2023 Lymphocytes/100 WBC (Bld) 23.7 % . [facility] MCH Auto (RBC) [Entitic mass ]Ordered By: Alejo Lynn on 03-01-2023 MCH (RBC) [Entitic mass] 29.6 pg 27.5-35.2 [facility] MCHC Auto (RBC) [Mass/Vol]Or dered By: Alejo Lynn on 03-01-2023 MCHC (RBC) [Mass/Vol] 34.4 g/dL 32.5-35.6 [facility] MCV Auto (RBC) [Entitic vol] Ordered By: Alejo Lynn on 03-01-2023 MCV (RBC) [Entitic vol] 86.1 fL 83.5-101 [facility] Monocyte distribution width [Entitic volume] in Blood by AutomatedOrdered By: Alejo Lynn on 03-01-2023 Monocyte distribution width Auto (Bld) [Entitic vol] 17.75 % 0.00-20.00 [facility] Monocytes Auto (Bld) [#/Vol] Ordered By: Alejo Lynn on 03-01-2023 Monocytes (Bld) [#/Vol] 0.4 10*3/uL 0.0-0.8 [facility] Monocytes/100 WBC Auto (Bld) Ordered By: Alejo Lynn on 03-01-2023 Monocytes/100 WBC (Bld) 8.3 % . [facility] Natriuretic peptide B [Mass/ Vol]Ordered By: Alejo Lynn on 03-01-2023 Natriuretic peptide B (Bld) [Mass/Vol] 96.0 pg/mL 5-100 [facility] Neutrophils Auto (Bld) [#/Vo l]Ordered By: Alejo Lynn on 03-01-2023 Neutrophils (Bld) [#/Vol] 3.5 10*3/uL 1.8-7.7 [facility] Neutrophils/100 WBC Auto (Bl d)Ordered By: Alejo Lynn on 03-01-2023 Neutrophils/100 WBC (Bld) 65.9 % . [facility] Nitrite Test strip Ql (U)Ord ered By: Alejo Lynn on 03-01-2023 Nitrite Ql (U) Negative Negative [facility] No Panel InformationOrdered By: Alejo Lynn on 03-01-2023 Estimated GFR (CKD-EPI) > 60.0 mL/Min [facility] Creatinine Clearance (Chem 76.53 [facility] Nucleated erythrocytes [Pres ence] in Blood by Automated countOrdered By: Alejo Lynn on 03-01-2023 Nucleated RBC Auto Ql (Bld) 0.3 /100{WBC} 0-0.5 [facility] Partial Thromboplastin Timeo n 03-01-2023 aPTT Coag (Bld) [Time] 27.2 s Normal 25.1-36.5 [facility] Comment on above: Result Comment: PERF ORMED BY: [place] [address] PATHOLOGIST DATA ENTRY PROCESSOR HARRY MARTI M.D. Performed By: #### H S TROP, CMP, CK, CBC #### [address] Platelet mean volume Auto (B ld) [Entitic vol]Ordered By: Alejo Lynn on 03-01-2023 Platelet mean volume (Bld) [Entitic vol] 8.0 fL 6.6-10.1 [facility] Platelet poor plasma interna tional normalized ratio (INR) by coagulation assay (relatOrdered By: Alejo Lynn on 03-01-2023 INR Coag (PPP) [Relative time] 1.0 {INR} [facility] Comment on above: INR Therapeutic [...] 03-01-2023 Platelets (Bld) [#/Vol] 143 10*3/uL 150-450 [facility] Potassium [Moles/volume] in Serum or PlasmaOrdered By: Alejo Lynn on 03-01-2023 Potassium [Moles/Vol] 4.3 mmol/L 3.5-5.1 [facility] Protein Auto test strip (U) [Mass/Vol]Ordered By: Alejo Lynn on 03-01-2023 Protein (U) [Mass/Vol] Negative Negative [facility] Protein [Mass/volume] in Ser um or PlasmaOrdered By: Alejo Lynn on 03-01-2023 Protein [Mass/Vol] 6.7 g/dL 6.4-8.9 [facility] Prothrombin Time INRon 03-01 INR Coag (PPP) [Relative time] 1.0 {INR} Normal [facility] Comment on above: Result Comment: [...] H S TROP, CMP, CK, CBC #### [facility] [address] PT Coag (PPP) [Time] 11.6 s Normal 9.0-12.9 [facility] Comment on above: Performed By: #### H S TROP, CMP, CK, CBC #### [facility] [address] RBC Auto (Bld) [#/Vol]Ordere d By: Alejo Lynn on 03-01-2023 RBC (Bld) [#/Vol] 5.02 10*6/uL 3.90-5.[address] [facility] Serum or plasma albumin/glob ulin mass ratioOrdered By: Alejo Lynn on 03-01-2023 Albumin/Globulin [Mass ratio] 1.9 {ratio} [facility] Serum or plasma anion gap de terminationOrdered By: Alejo Lynn on 03-01-2023 Anion gap [Moles/Vol] 10.3 mmol/L 6.0-15.0 [facility] Serum or plasma non-glucuron idated bilirubin measurement (mass/volume)Ordered By: Alejo Lynn on 03-01-2023 Bilirubin.indirect [Mass/Vol] 1.4 mg/dL [facility] Sodium [Moles/volume] in Ser um or PlasmaOrdered By: Alejo Lynn on 03-01-2023 Sodium [Moles/Vol] 139 mmol/L 136-145 [facility] Specific gravity Auto test s trip (U) [Rel density]Ordered By: Alejo Lynn on 03-01-2023 Specific gravity (U) [Rel density] 1.014 1.001-1.03 0 [facility] Troponin I High Sensitivityo n 03-01-2023 Troponin I High Sensitivity 8.1 pg/mL Normal 0.0-20.0 [facility] Comment on above: Result Comment: PERF ORMED BY: [place] [address] PATHOLOGIST DATA ENTRY PROCESSOR HARRY MARTI M.D. Performed By: #### H S TROP, CMP, CK, CBC #### [facility] [address] [place] [address] Troponin I.cardiac [Mass/vol ume] in Serum or Plasma by Detection limit <= 0.01 ng/Ordered By: Alejo Lynn on 03-01-2023 Troponin I.cardiac DL <= 0.01 ng/mL [Mass/Vol] 8.1 pg/mL 0.0-20.0 [facility] Urea nitrogen [Mass/volume] in Serum or PlasmaOrdered By: Alejo Lynn on 03-01-2023 Urea nitrogen [Mass/Vol] 16 mg/dL 7-25 [facility] Urinalysison 03-01-2023 Appearance (U) Clear Normal Clear [facility] Comment on above: Order Comment: Name Collection Type:: Clean-Voided Midstream Performed By: #### U A #### [facility] [address] [place] [address] [place] Bilirubin,Urine Negative Normal Negative [facility] Comment on above: Order Comment: Name Collection Type:: Clean-Voided Midstream Performed By: #### U A #### [address] Color (U) Yellow Normal Yellow [facility] Comment on above: Order Comment: Name Collection Type:: Clean-Voided Midstream Performed By: #### U A #### [address] Glucose Ql (U) Normal Normal Normal [facility] Comment on above: Order Comment: Name Collection Type:: Clean-Voided Midstream Performed By: #### U A #### [address] Ketones Ql (U) Negative Normal Negative [facility] Comment on above: Order Comment: Name Collection Type:: Clean-Voided Midstream Performed By: #### U A #### [address] Leukocyte esterase Test strip Ql (U) Negative Normal Negative [facility] Comment on above: Order Comment: Name Collection Type:: Clean-Voided Midstream Performed By: #### U A #### [place] [address] [place] Nitrite,Urine Negative Normal Negative [facility] Comment on above: Order Comment: Name Collection Type:: Clean-Voided Midstream Performed By: #### U A #### [place] [address] [place] Occult Blood,Urine Negative Normal Negative [facility] Comment on above: Order Comment: Name Collection Type:: Clean-Voided Midstream Result Comment: PERF ORMED BY: [place] [address] PATHOLOGIST DATA ENTRY PROCESSOR HARRY MARTI M.D. Performed By: #### U A #### [facility] [address] [place] [address] [place] pH (U) 7.5 [pH] Normal 5.0-9.0 [facility] Comment on above: Order Comment: Name Collection Type:: Clean-Voided Midstream Performed By: #### U A #### [facility] [address] [place] [address] Protein,Urine Negative Normal Negative [facility] Comment on above: Order Comment: Name Collection Type:: Clean-Voided Midstream Performed By: #### U A #### [address] Specificy Powers,Urine 1.014 Normal 1.001-1.03 0 [facility] Comment on above: Order Comment: Name Collection Type:: Clean-Voided Midstream Performed By: #### U A #### [address] Urobilinogen,Urine Normal Normal Normal [facility] Comment on above: Order Comment: Name Collection Type:: Clean-Voided Midstream Performed By: #### U A #### [address] Urine clarity by refractomet ry automatedOrdered By: Alejo Lynn on 03-01-2023 Clarity Refractometry automated (U) Clear Clear [facility] Urine glucose measurement by automated test strip (mass/volume)Ordered By: Alejo Lynn on 03-01-2023 Glucose Auto test strip (U) [Mass/Vol] Normal mg/dL Normal [facility] Urine hemoglobin detection b y automated test stripOrdered By: Alejo Lynn on 03-01-2023 Hemoglobin Auto test strip Ql (U) Negative Negative [facility] Urine leukocyte esterase det ection by automated test stripOrdered By: Alejo Lynn on 03-01-2023 Leukocyte esterase Auto test strip Ql (U) Negative Negative [facility] Urobilinogen Auto test strip (U) [Mass/Vol]Ordered By: Alejo Lynn on 03-01-2023 Urobilinogen (U) [Mass/Vol] Normal mg/dL Normal [facility] WBC Auto (Bld) [#/Vol]Ordere d By: Alejo Lynn on 03-01-2023 WBC (Bld) [#/Vol] 5.4 10*3/uL 4.1-10.5 [facility] XR chest 1V portableon 03-[address] [facility] Main [address] [address] XRay Report Signed Patient: Yonatan Patel MR#: [id number] 6 : 1945 Acct:[id number] Age/Sex: 77 / M ADM Date: 03/01/23 Loc: Room: [address] [place] [address] Type: ADM INOo Attending Dr: Bobo Villagomez [...] Selena Reid M.D.03/01/2023 9:15 AM Dictation Location: [place] [address] Transcribed By: [facility] 03/01/2315 Dictated By: Selena Reid MD 03/01/23 0914 Signed By: 03/01/23 0915 Normal [facility] pH Auto test strip (U)Ordere d By: Alejo Lynn on 03-01-2023 pH (U) 7.5 [pH] 5.0-9.0 [facility] H Pylori Stool Ag, EIAon H Pylori Stool Ag, EIA Negative Normal Negative [facility] Comment on above: Order Comment: SOURC E OF SPECIMEN: STOOL Result Comment: Perf ormed at: - [facility] [address] [id number] Creative Technologist: Juan Howard MD, Phone: [phone] PERFORMED BY: [address] [place] [address] PATHOLOGIST DATA ENTRY PROCESSOR HARRY MARTI M.D. Performed By: #### H S TROP, CMP, CK, CBC #### [facility] [address] [place] [id number] [facility] CBC AUTO DIFFon 09-14-2022 BASO # 0.0 103/ul Normal 0.0-0.1 [facility] Comment on above: Performed By: #### C BC #### [facility] [address] [address] [address] Patrica Nathan Basophils/100 WBC (Bld) 0.7 % Normal 0.2-2.0 [facility] Comment on above: Performed By: #### C BC #### [facility] [address] [place] [address] Dr. Patrica Nathan EO # 0.1 103/ul Normal 0.0-0.7 [facility] Comment on above: Performed By: #### C BC #### [facility] [address] [place] [address] Dr. Patrica Nathan Eosinophils/100 WBC (Bld) 1.5 % Normal 0.9-7.0 [facility] Comment on above: Performed By: #### C BC #### [facility] [address] [place] [address] Dr. Patrica Nathan Erythrocyte distribution width (RBC) [Ratio] 14.2 % Normal 11.0-15.0 [facility] Comment on above: Performed By: #### C BC #### [facility] [address] [place] [address] Dr. Patrica Nathan Hematocrit (Bld) [Volume fraction] 42.1 % Normal 42.0-54.0 [facility] Comment on above: Performed By: #### C BC #### [facility] [address] [place] [address] Dr. Patrica Nathan Hemoglobin (Bld) [Mass/Vol] 14.6 g/dL Normal 14.0-18.0 [facility] Comment on above: Performed By: #### C BC #### [facility] [address] [place] [address] Dr. Patrica Nathan IG # 0.03 10e3/ul Normal 0.00-0.03 [facility] Comment on above: Performed By: #### C BC #### [facility] [address] [place] [address] Dr. Patrica Nathan IG % 0.5 % Normal 0.0-0.5 [facility] Comment on above: Performed By: #### C BC #### [facility] [address] [place] [address] Dr. Patrica Nathan LYMPH # 1.3 103/ul Normal 1.2-3.8 [facility] Comment on above: Performed By: #### C BC #### [facility] [address] [place] [address] Dr. Patrica Nathan Lymphocytes/100 WBC (Bld) 22.4 % Normal 20.5-60.0 [facility] Comment on above: Performed By: #### C BC #### [facility] [address] [place] [address] Dr. Patrica Nathan MANUAL DIFF REQ NO Normal [facility] Comment on above: Performed By: #### C BC #### [facility] [address] [place] [address] Dr. Patrica Nathan MCH (RBC) [Entitic mass] 29.4 pg Normal 25.9-34.0 [facility] Comment on above: Performed By: #### C BC #### [facility] [address] [place] [address] Dr. Patrica Nathan MCHC (RBC) [Mass/Vol] 34.7 g/dL Normal 29.9-35.2 [facility] Comment on above: Performed By: #### C BC #### [facility] [address] [place] [address] Dr. Patrica Nathan MCV (RBC) [Entitic vol] 84.9 fL Normal 80.0-94.0 [facility] Comment on above: Performed By: #### C BC #### [facility] [address] [place] [address] Dr. Patrica Nathan MONO # 0.6 103/ul Normal 0.3-0.8 [facility] Comment on above: Performed By: #### C BC #### [facility] [address] [place] [address] Dr. Patrica Nathan Monocytes/100 WBC (Bld) 9.9 % Normal 1.7-12.0 [facility] Comment on above: Performed By: #### C BC #### [facility] [address] [place] [address] Dr. Patrica Nathan NEUT # 3.9 103/ul Normal 1.4-6.5 [facility] Comment on above: Performed By: #### C BC #### [facility] [address] [place] [address] Dr. Patrica Nathan Neutrophils/100 WBC (Bld) 65.0 % Normal 43.0-75.0 [facility] Comment on above: Performed By: #### C BC #### [facility] [address] [place] [address] Dr. Patrica Nathan Platelet mean volume (Bld) [Entitic vol] 9.6 fL Normal 9.5-13.5 [facility] Comment on above: Performed By: #### C BC #### [facility] [address] [place] [address] Dr. Patrica Nathan PLT 170 103/ul Normal 150-450 [facility] Comment on above: Performed By: #### C BC #### [facility] [address] [place] [address] Dr. Patrica Nathan RBC 4.96 106/ul Normal 4.70-6.10 [facility] Comment on above: Performed By: #### C BC #### [facility] [address] [place] [address] Dr. Patrica Nathan WBC 6.0 103/ul Normal 4.0-11.0 [facility] Comment on above: Performed By: #### C BC #### [facility] [address] [place] [address] HEAD WO CONon [...] ANGELY KENNEDY Date: 2022-09-14 10:00 Normal [facility] PROF 14(COMP METB)on 023 Albumin [Mass/Vol] 3.7 g/dL Normal 3.4-5.0 [facility] Comment on above: Performed By: #### C JV HSTROPN #### [facility] [address] [address] [address] Patrica Nathan Albumin/Globulin [Mass ratio] 1.4 {ratio} Normal [facility] Comment on above: Performed By: #### C JV HSTROPN #### [facility] [address] [address] [address] Patrica Nathan ALP [Catalytic activity/Vol] 83 U/L Normal 46-116 [facility] Comment on above: Performed By: #### C JV HSTROPN #### [facility] [address] [place], [place] [address] Dr. Patrica Nathan ALT [Catalytic activity/Vol] 57 U/L Normal 16-63 [facility] Comment on above: Performed By: #### C JV, HSTROPN #### [facility] [address] [place] [address] Dr. Patrica Nathan Anion gap [Moles/Vol] 11.9 mmol/L Normal Th e [facility] Comment on above: Performed By: #### C JV, HSTROPN #### [facility] [address] [place] [address] Dr. Patrica Nathan AST [Catalytic activity/Vol] 43 U/L Critically high 15-37 [facility] Comment on above: Performed By: #### C JV, HSTROPN #### [facility] [address] [place] [address] Dr. Patrica Nathan Bilirubin [Mass/Vol] 1.1 mg/dL Critically high 0.2-1.0 [facility] Comment on above: Performed By: #### C JV, HSTROPN #### [facility] [address] [place] [address] Dr. Patrica Nathan Calcium [Mass/Vol] 9.2 mg/dL Normal 8.5-10.1 [facility] Comment on above: Performed By: #### C JV, HSTROPN #### [facility] [address] [place] [address] Dr. Patrica Nathan Chloride [Moles/Vol] 106 mmol/L Normal 98-107 [facility] Comment on above: Performed By: #### C JV, HSTROPN #### [facility] [address] [place] [address] Dr. Patrica Nathan CO2 [Moles/Vol] 28.0 mmol/L Normal 21.0-32.0 [facility] Comment on above: Performed By: #### C JV, HSTROPN #### [facility] [address] [place] [address] Dr. Patrica Nathan Creatinine [Mass/Vol] 0.92 mg/dL Normal 0.70-1.30 [facility] Comment on above: Performed By: #### C JV, HSTROPN #### [facility] [address] [address] [address] Patrica Nathan EGFR-AF DOMINICAN >60 Normal >=60 [facility] Comment on above: Performed By: #### C MP, HSTROPN #### [facility] [address] [address] [address] Patrica Nathan EGFR-NON AF DOMINICAN >60 Normal >=60 [facility] Comment on above: Performed By: #### C MP, HSTROPN #### [facility] [address] [address] [address] Patrica Nathan Globulin (S) [Mass/Vol] 2.7 g/dL Normal [facility] Comment on above: Performed By: #### C MP, HSTROPN #### [facility] [address] [address] [address] Patrica Nathan Glucose [Mass/Vol] 90 mg/dL Normal 74-106 [facility] Comment on above: Performed By: #### C MP, HSTROPN #### [facility] [address] [address] [address] Patrica Nathan Potassium [Moles/Vol] 3.9 mmol/L Normal 3.5-5.1 [facility] Comment on above: Performed By: #### C MP, HSTROPN #### [facility] [address] [address] [address] Patrica Nathan Protein [Mass/Vol] 6.4 g/dL Normal 6.4-8.2 [facility] Comment on above: Performed By: #### C MP, HSTROPN #### [facility] [address] [address] [address] Patrica Nathan Sodium [Moles/Vol] 142 mmol/L Normal 136-145 [facility] Comment on above: Performed By: #### C MP, HSTROPN #### [facility] [address] [address] [address] Patrica Nathan Urea nitrogen [Mass/Vol] 19.0 mg/dL Critically high 7.0-18.0 [facility] Comment on above: Performed By: #### C MP, HSTROPN #### [facility] [address] [address] [address] Patrica Nathan Urea nitrogen/Creatinine [Mass ratio] 20.7 mg/mg Normal [facility] Comment on above: Performed By: #### C MP, HSTROPN #### [facility] [address] [address] [address] Patrica Nathan TROPONIN, HIGH SENSITIVITYon 09-14-2022 HSTROP 5.8 pg/mL Normal 4.0-76.1 [facility] Comment on above: Result Comment: CUT- OFF POINTS HAVE BEEN ESTABLISHED BASED ON THE FOURTH UNIVERSAL DEFINITIONS OF MYOCARDIAL INFARCTION. THE UPPER REFERENCE LIMIT (URL) OF TROPONIN, DEFINED THE 99TH PERCENTILE OF cTnI DISTRIBUTION IN A REFERENCE POPULATION, HAS BEEN CONFIRMED THE DECISION THRESHOLD FOR OR DIAGNOSIS. Performed By: #### C MP, HSTROPN #### [facility] [address] [address] [address] Patrica Nathan XR CHEST 1 Von 09-14-2022 XR CHEST 1 V EXAM: XR CHEST 1 V HISTORY: Near syncope COMPARISON: None. TECHNIQUE: Single view of the chest FINDINGS: Heart size normal. No focal consolidation, pleural effusion, pulmonary congestion or pneumothorax. IMPRESSION: No acute findings. Electronically authenticated by: PASTORA DREW Date: 2022-09-14 10:01 Normal [facility] Alex 08-27-2022 L ------- Specimen: [id number] Received: 08/27/22 Status: MARIAH Coburnraven Num: [id number] Spec Type: Surgical Subm Dr: Maryjane Christensen MD Tissues: A Gastric Biopsy (GASTRIC BX) B Colon Biopsy (ASCENDING POLYP) C Colon Biopsy (SIGMIOD POLYP) Procedures: HE/6, Gross/Micro L4/3, H PYLORI Age/ Patient Sex Location Account Attending Physician Yonatan Patel 77/M [id number] Alek Oliva MD SPEC NUM: [id number] RECD: 08/27/22 STATUS: MARIAH GILMORE NUM: [id number] EVE: 08/27/22- [facility] DR: Maryjane Christensen MD ENTERED: 08/27/22 [facility] DR: BRITTANIE TYPE: Surgical DEPT: S ORDERED: HE/6, Gross/Micro L4/3, H PYLORI ORDERED: HE/6, Gross/Micro L4/3, H PYLORI Supplemental Report Addendum 1 Entered: 08/28/227946 A. Immunohistochemical stain for Helicobacter Pylori is POSITIVE. Addendum Signed (signature on file) Aaliyah Beard MD 08/28/22 0227 Pathological Diagnosis A. Stomach, gastric, biopsy: - Moderate chronic active gastritis. - Positive for Helicobacter pylori like organisms on H E stain. COMMENT: Confirmatory Helicobacter pylori immunohistochemical stain is being performed, an addendum report will be issued on completion. B. Colon, ascending, polypectomy: - Tubular adenoma. Specimen: [id number] Received: 08/27/22 Status: MARIAH Gilmore Num: [id number] Spec Type: Surgical Subm Dr: Maryjane Christensen MD Tissues: A Gastric Biopsy (GASTRIC BX) B Colon Biopsy (ASCENDING POLYP) C Colon Biopsy (SIGMIOD POLYP) Procedures: HE/6, Gross/Micro L4/3, H PYLORI Patient: Yonatan Patel [id number] (Continued) Specimen: [id number] Received: 08/27/22 (Continued) Pathological Diagnosis (Continued) Signed (signature on file) Aaliyah Beard MD 08/28/22 1236 Specimen: Received: 08/27/22 Status: MARIAH Gilmore Num: [id number] Spec Type: Surgical Subm Dr: Maryjane Christensen MD Tissues: A Gastric Biopsy (GASTRIC BX) B Colon Biopsy (ASCENDING POLYP) C Colon Biopsy (SIGMIOD POLYP) Procedures: HE/6, Gross/Micro L4/3, H PYLORI Patient: Yonatan Patel [id number] (Continued) Specimen: [id number] Received: 08/27/22 (Continued) Pathological Diagnosis (Continued) C. [...] support the above pathologic diagnosis. CPT Codes 01715?3 Specimen: [id number] Received: 08/27/22 [facility] Num: [id number] Spec Type: Surgical Subm Dr: Maryjane Christensen MD Tissues: A Gastric Biopsy (GASTRIC BX) B Colon Biopsy (ASCENDING POLYP) C Colon Biopsy (SIGMIOD POLYP) Procedures: HE/6, Gross/Micro L4/3, H PYLORI --------- (more content not included)... [facility] MRI BRAIN WO CONon 2 MRI BRAIN [...] by: BERHANE HERNANDEZ Date: 2022-07-29 08:42 Normal [facility] LIPID PROFILEon 07-28-2022 CHOL-HDL RATIO NORM SEE BELOW Normal [facility] Comment on above: Result Comment: 3.3 - 4.4 LOW RISK 4.4 - 7.1 AVERAGE RISK 7.1 - 11.0 MODERATE RISK >11.0 HIGH RISK Performed By: #### C JV HSTROPN #### [facility] [address] [address] [address] Patrica Nathan Cholesterol [Mass/Vol] 97 mg/dL Normal <=200 [facility] Comment on above: Performed By: #### C JV HSTROPN #### [facility] [address], [place] [address] Dr. Patrica Nathan Cholesterol in HDL [Mass/Vol] 40 mg/dL Normal 40-60 [facility] Comment on above: Performed By: #### C JV HSTROPN #### [facility] [address], [place] [address] Dr. Patrica Nathan Cholesterol in LDL [Mass/Vol] 31.8 mg/dL Normal [facility] Comment on above: Performed By: #### C MP, HSTROPN #### [facility] [address] [place] [address] Dr. Patrica Nathan Cholesterol.total/Chol esterol in HDL [Mass ratio] 2.4 {ratio} Normal [facility] Comment on above: Performed By: #### C MP, HSTROPN #### [facility] [address] [place] [address] Dr. Patrica Nathan HDL NORMAL > or = 60 mg/dl - LO W CARDIOVASCULAR RISK <40 mg/dl - HIGH CARDIOVASCULAR RISK Normal [facility] Comment on above: Performed By: #### C JV, HSTROPN #### [facility] [address] [place] [address] Dr. Patrica Nathan LDL CALC NORMAL SEE BELOW Normal [facility] Comment on above: Result Comment: <100 mg/dl OPTIMAL 100 - 129 mg/dl NEAR OR ABOVE OPTIMAL 130 - 159 mg/dl BORDERLINE HIGH 160 - 189 mg/dl HIGH >190 mg/dl VERY HIGH Performed By: #### C JV, HSTROPN #### [facility] [address] [place] [address] Dr. Patrica Nathan Triglyceride [Mass/Vol] 126 mg/dL Normal <=150 [facility] Comment on above: Performed By: #### C JV, HSTROPN #### [facility] [address] [place] [address] Dr. Patrica Nathan VLDL CALC 25.2 mg/dL Normal [facility] Comment on above: Performed By: #### C MP, HSTROPN #### [facility] [address] [place] [address] Dr. Patrica Nathan CBC AUTO DIFFon 07-01-2022 BASO # 0.0 103/ul Normal 0.0-0.1 [facility] Comment on above: Performed By: #### C BC #### [facility] [address] [place] [address] Dr. Patrica Nathan Basophils/100 WBC (Bld) 0.5 % Normal 0.2-2.0 [facility] Comment on above: Performed By: #### C BC #### [facility] [address] [place] [address] Dr. Patrica Nathan EO # 0.1 103/ul Normal 0.0-0.7 [facility] Comment on above: Performed By: #### C BC #### [facility] [address] [place] [address] Dr. Patrica Nathan Eosinophils/100 WBC (Bld) 2.2 % Normal 0.9-7.0 [facility] Comment on above: Performed By: #### C BC #### [facility] [address] [place] [address] Dr. Patrica Nathan Erythrocyte distribution width (RBC) [Ratio] 14.3 % Normal 11.0-15.0 [facility] Comment on above: Performed By: #### C BC #### [facility] [address] [place] [address] Dr. Patrica Nathan Hematocrit (Bld) [Volume fraction] 45.8 % Normal 42.0-54.0 [facility] Comment on above: Performed By: #### C BC #### [facility] [address] [place] [address] Dr. Patrica Nathan Hemoglobin (Bld) [Mass/Vol] 15.1 g/dL Normal 14.0-18.0 [facility] Comment on above: Performed By: #### C BC #### [facility] [address] [place] [address] Dr. Patrica Nathan IG # 0.01 10e3/ul Normal 0.00-0.03 [facility] Comment on above: Performed By: #### C BC #### [facility] [address] [place] [address] Dr. Patrica Nathan IG % 0.2 % Normal 0.0-0.5 [facility] Comment on above: Performed By: #### C BC #### [facility] [address] [place] [address] Dr. Patrica Nathan LYMPH # 1.4 103/ul Normal 1.2-3.8 [facility] Comment on above: Performed By: #### C BC #### [facility] [address] [place] [address] Dr. Patrica Nathan Lymphocytes/100 WBC (Bld) 24.0 % Normal 20.5-60.0 [facility] Comment on above: Performed By: #### C BC #### [facility] [address] [place] [address] Dr. Patrica Nathan MANUAL DIFF REQ NO Normal [facility] Comment on above: Performed By: #### C BC #### [facility] [address] [place] [address] Dr. Patrica Nathan MCH (RBC) [Entitic mass] 29.4 pg Normal 25.9-34.0 [facility] Comment on above: Performed By: #### C BC #### [facility] [address] [place] [address] Dr. Patrica Nathan MCHC (RBC) [Mass/Vol] 33.0 g/dL Normal 29.9-35.2 [facility] Comment on above: Performed By: #### C BC #### [facility] [address] [place] [address] Dr. Patrica Nathan MCV (RBC) [Entitic vol] 89.3 fL Normal 80.0-94.0 [facility] Comment on above: Performed By: #### C BC #### [facility] [address] [place] [address] Dr. Patrica Nathan MONO # 0.6 103/ul Normal 0.3-0.8 [facility] Comment on above: Performed By: #### C BC #### [facility] [address] [place] [address] Dr. Patrica Nathan Monocytes/100 WBC (Bld) 10.8 % Normal 1.7-12.0 [facility] Comment on above: Performed By: #### C BC #### [facility] [address] [place] [address] Dr. Patrica Nathan NEUT # 3.7 103/ul Normal 1.4-6.5 [facility] Comment on above: Performed By: #### C BC #### [facility] [address] [place] [address] Dr. Patrica Nathan Neutrophils/100 WBC (Bld) 62.3 % Normal 43.0-75.0 [facility] Comment on above: Performed By: #### C BC #### [facility] [address] [place] [address] Dr. Patrica Nathan Platelet mean volume (Bld) [Entitic vol] 9.7 fL Normal 9.5-13.5 [facility] Comment on above: Performed By: #### C BC #### [facility] [address] [place] [address] Dr. Patrica Nathan PLT 192 103/ul Normal 150-450 [facility] Comment on above: Performed By: #### C BC #### [facility] [address] [place] [address] Dr. Patrica Nathan RBC 5.13 106/ul Normal 4.70-6.10 [facility] Comment on above: Performed By: #### C BC #### [facility] [address] [place] [address] Dr. Patrica Nathan WBC 6.0 103/ul Normal 4.0-11.0 [facility] Comment on above: Performed By: #### C BC #### [facility] [address] [place] [address] CHEST WO CONon [...] EVGENY MCCLAIN Date: 2022-07-01 07:16 Normal [facility] PROF 14(COMP METB)on 07-01- 022 Albumin [Mass/Vol] 4.0 g/dL Normal 3.4-5.0 [facility] Comment on above: Performed By: #### C MP, HSTROPN #### [facility] [address] [place] [address] Dr. Patrica Nathan Albumin/Globulin [Mass ratio] 1.2 {ratio} Normal [facility] Comment on above: Performed By: #### C MP, HSTROPN #### [facility] [address] [place] [address] Dr. Patrica Nathan ALP [Catalytic activity/Vol] 80 U/L Normal 46-116 [facility] Comment on above: Performed By: #### C MP, HSTROPN #### [facility] [address] [place] [address] Dr. Patrica Nathan ALT [Catalytic activity/Vol] 30 U/L Normal 16-63 [facility] Comment on above: Performed By: #### C MP, HSTROPN #### [facility] [address] [place] [address] Dr. Patrica Nathan Anion gap [Moles/Vol] 8.5 mmol/L Normal [facility] Comment on above: Performed By: #### C MP, HSTROPN #### [facility] [address] [place] [address] Dr. Patrica Nathan AST [Catalytic activity/Vol] 26 U/L Normal 15-37 [facility] Comment on above: Performed By: #### C MP, HSTROPN #### [facility] [address] [place] [address] Dr. Patrica Nathan Bilirubin [Mass/Vol] 1.4 mg/dL Critically high 0.2-1.0 [facility] Comment on above: Performed By: #### C MP, HSTROPN #### [facility] [address] [address] [address] Patrica Nathan Calcium [Mass/Vol] 9.8 mg/dL Normal 8.5-10.1 [facility] Comment on above: Performed By: #### C MP, HSTROPN #### [facility] [address] [address] [address] Patrica Nathan Chloride [Moles/Vol] 104 mmol/L Normal 98-107 [facility] Comment on above: Performed By: #### C MP, HSTROPN #### [facility] [address] [place] [address] Dr. Patrica Nathan CO2 [Moles/Vol] 30.8 mmol/L Normal 21.0-32.0 [facility] Comment on above: Performed By: #### C MP, HSTROPN #### [facility] [address] [place] [address] Dr. Patrica Nathan Creatinine [Mass/Vol] 0.97 mg/dL Normal 0.70-1.30 [facility] Comment on above: Performed By: #### C MP, HSTROPN #### [facility] [address] [place] [address] Dr. Patrica Nathan EGFR-AF DOMINICAN >60 Normal >=60 [facility] Comment on above: Performed By: #### C MP, HSTROPN #### [facility] [address] [place] [address] Dr. Patrica Nathan EGFR-NON AF DOMINICAN >60 Normal >=60 [facility] Comment on above: Performed By: #### C MP, HSTROPN #### [facility] [address] [address] [address] Patrica Nathan Globulin (S) [Mass/Vol] 3.4 g/dL Normal [facility] Comment on above: Performed By: #### C MP, HSTROPN #### [facility] [address] [place] [address] Dr. Patrica Nathan Glucose [Mass/Vol] 110 mg/dL Critically high 74-106 [facility] Comment on above: Performed By: #### C MP, HSTROPN #### [facility] [address] [place] [address] Dr. Patrica Nathan Potassium [Moles/Vol] 4.3 mmol/L Normal 3.5-5.1 [facility] Comment on above: Performed By: #### C MP, HSTROPN #### [facility] [address] [place] [address] Dr. Patrica Nathan Protein [Mass/Vol] 7.4 g/dL Normal 6.4-8.2 [facility] Comment on above: Performed By: #### C MP, HSTROPN #### [facility] [address] [place] [address] Dr. Patrica Nathan Sodium [Moles/Vol] 139 mmol/L Normal 136-145 [facility] Comment on above: Performed By: #### C MP, HSTROPN #### [facility] [address] [place] [address] Dr. Patrica Nathan Urea nitrogen [Mass/Vol] 15.0 mg/dL Normal 7.0-18.0 [facility] Comment on above: Performed By: #### C MP, HSTROPN #### [facility] [address] [place] [address] Dr. Patrica Nathan Urea nitrogen/Creatinine [Mass ratio] 15.5 mg/mg Normal [facility] Comment on above: Performed By: #### C MP, HSTROPN #### [facility] [address] [place] [address] Dr. Patrica Nathan PROTIMEon 07-01-2022 INR Coag (PPP) [Relative time] 0.95 {INR} Normal [facility] Comment on above: Performed By: #### P T, PTT #### [facility] [address] [place] [address] Dr. Patrica Nathan INR GUIDELINES SEE BELOW Normal [facility] Comment on above: Result Comment: ODALIS RED INR: 2.0 - 3.0 CONDITIONS NOT LISTED BELOW 2.5 - 3.5 FOR PROSTHETIC HEART VALVE REPLACEMENT 2.5 - 3.5 RECURRENT THROMBOSIS Performed By: #### P T, PTT #### [facility] [address], [place] [address] Dr. Patrica Nathan PT Coag (PPP) [Time] 10.3 s Normal 9.0-11.6 [facility] Comment on above: Performed By: #### P T, PTT #### [facility] [address], [place] [address] Dr. Patrica Nathan PTTon 07-01-2022 aPTT Coag (Bld) [Time] 27.1 s Normal 22.3-36.2 Th [facility] Comment on above: Performed By: #### C MP, HSTROPN #### [facility] [address] [address] [address] Patrica Nathan XR CHEST 1 Von [...] ANGELY REYNOLDS Date: 2022-07-01 06:33 Normal [facility] CT CHEST WO CONon 06-29-2022 [...] by: BERHANE HERNANDEZ Date: 2022-06-29 16:01 Normal [facility] XR RIBS RT PA Estella 2 [...] FABRICE GARRIDOH Date: 2022-06-29 15:08 Normal [facility] CBC AUTO DIFFon 05-02-2022 BASO # 0.1 103/ul Normal 0.0-0.1 [facility] Comment on above: Performed By: #### C BC #### [facility] [address] [place] [address] Dr. Patrica Nathan Basophils/100 WBC (Bld) 0.8 % Normal 0.2-2.0 [facility] Comment on above: Performed By: #### C BC #### [facility] [address] [place] [address] Dr. Patrica Nathan EO # 0.1 103/ul Normal 0.0-0.7 [facility] Comment on above: Performed By: #### C BC #### [facility] [address] [place] [address] Dr. Patrica Nathan Eosinophils/100 WBC (Bld) 1.7 % Normal 0.9-7.0 [facility] Comment on above: Performed By: #### C BC #### [facility] [address] [place] [address] Dr. Patrica Nathan Erythrocyte distribution width (RBC) [Ratio] 14.5 % Normal 11.0-15.0 [facility] Comment on above: Performed By: #### C BC #### [facility] [address] [place] [address] Dr. Patrica Nathan Hematocrit (Bld) [Volume fraction] 45.6 % Normal 42.0-54.0 [facility] Comment on above: Performed By: #### C BC #### [facility] [address] [place] [address] Dr. Patrica Nathan Hemoglobin (Bld) [Mass/Vol] 15.3 g/dL Normal 14.0-18.0 [facility] Comment on above: Performed By: #### C BC #### [facility] [address] [place] [address] Dr. Patrica Nathan IG # 0.02 10e3/ul Normal 0.00-0.03 [facility] Comment on above: Performed By: #### C BC #### [facility] [address] [place] [address] Dr. Patrica Nathan IG % 0.3 % Normal 0.0-0.5 [facility] Comment on above: Performed By: #### C BC #### [facility] [address] [place] [address] Dr. Patrica Nathan LYMPH # 1.6 103/ul Normal 1.2-3.8 [facility] Comment on above: Performed By: #### C BC #### [facility] [address] [place] [address] Dr. Patrica Nathan Lymphocytes/100 WBC (Bld) 27.0 % Normal 20.5-60.0 [facility] Comment on above: Performed By: #### C BC #### [facility] [address] [place] [address] Dr. Patrica Nathan MANUAL DIFF REQ NO Normal [facility] Comment on above: Performed By: #### C BC #### [facility] [address] [place] [address] Dr. Patrica Nathan MCH (RBC) [Entitic mass] 29.9 pg Normal 25.9-34.0 [facility] Comment on above: Performed By: #### C BC #### [facility] [address] [place] [address] Dr. Patrica Nathan MCHC (RBC) [Mass/Vol] 33.6 g/dL Normal 29.9-35.2 [facility] Comment on above: Performed By: #### C BC #### [facility] [address] [place] [address] Dr. Patrica Nathan MCV (RBC) [Entitic vol] 89.1 fL Normal 80.0-94.0 [facility] Comment on above: Performed By: #### C BC #### [facility] [address] [place] [address] Dr. Patrica Nathan MONO # 0.6 103/ul Normal 0.3-0.8 [facility] Comment on above: Performed By: #### C BC #### [facility] [address] [place] [address] Dr. Patrica Nathan Monocytes/100 WBC (Bld) 9.8 % Normal 1.7-12.0 [facility] Comment on above: Performed By: #### C BC #### [facility] [address] [place] [address] Dr. Patrica Nathan NEUT # 3.6 103/ul Normal 1.4-6.5 [facility] Comment on above: Performed By: #### C BC #### [facility] [address] [address] [address] Patrica Nathan Neutrophils/100 WBC (Bld) 60.4 % Normal 43.0-75.0 [facility] Comment on above: Performed By: #### C BC #### [facility] [address] [address] [address] Patrica Nathan Platelet mean volume (Bld) [Entitic vol] 9.3 fL Critically low 9.5-13.5 [facility] Comment on above: Performed By: #### C BC #### [facility] [address] [address] [address] Patrica Nathan PLT 183 103/ul Normal 150-450 [facility] Comment on above: Performed By: #### C BC #### [facility] [address] [address] [address] Patrica Nathan RBC 5.12 106/ul Normal 4.70-6.10 [facility] Comment on above: Performed By: #### C BC #### [facility] [address] [id number] Patrica Nathan WBC 6.0 103/ul Normal 4.0-11.0 [facility] Comment on above: Performed By: #### C BC #### [facility] [address] [address] [address] ABD/PELV WO W [...] EVGENY MCCLAIN Date: 2022-05-02 10:56 Normal [facility] PROF 14(COMP METB)on 022 Albumin [Mass/Vol] 4.1 g/dL Normal 3.4-5.0 [facility] Comment on above: Performed By: #### C JV, HSTROPN #### [facility] [address] [address] [address] Patrica Nathan Albumin/Globulin [Mass ratio] 1.4 {ratio} Normal [facility] Comment on above: Performed By: #### C JV, HSTROPN #### [facility] [address] [address] [address] Patrica Nathan ALP [Catalytic activity/Vol] 71 U/L Normal 46-116 [facility] Comment on above: Performed By: #### C JV, HSTROPN #### [facility] [address] [address] [address] Patrica Nathan ALT [Catalytic activity/Vol] 48 U/L Normal 16-63 [facility] Comment on above: Performed By: #### C JV, HSTROPN #### [facility] [address] [address] [address] Patrica Nathan Anion gap [Moles/Vol] 8.1 mmol/L Normal [facility] Comment on above: Performed By: #### C MP, HSTROPN #### [facility] [address] [address] [address] Patrica Nathan AST [Catalytic activity/Vol] 31 U/L Normal 15-37 [facility] Comment on above: Performed By: #### C MP, HSTROPN #### [facility] [address] [place] [address] Dr. Patrica Nathan Bilirubin [Mass/Vol] 1.6 mg/dL Critically high 0.2-1.0 [facility] Comment on above: Performed By: #### C MP, HSTROPN #### [facility] [address] [address] [address] Patrica Nathan Calcium [Mass/Vol] 9.4 mg/dL Normal 8.5-10.1 [facility] Comment on above: Performed By: #### C MP, HSTROPN #### [facility] [address] [place] [address] Dr. Patrica Nathan Chloride [Moles/Vol] 105 mmol/L Normal 98-107 [facility] Comment on above: Performed By: #### C MP, HSTROPN #### [facility] [address] [place] [address] Dr. Patrica Nathan CO2 [Moles/Vol] 29.0 mmol/L Normal 21.0-32.0 [facility] Comment on above: Performed By: #### C MP, HSTROPN #### [facility] [address] [place] [address] Dr. Patrica Nathan Creatinine [Mass/Vol] 1.01 mg/dL Normal 0.70-1.30 [facility] Comment on above: Performed By: #### C MP, HSTROPN #### [facility] [address] [place] [address] Dr. Patrica Nathan EGFR-AF DOMINICAN >60 Normal >=60 [facility] Comment on above: Performed By: #### C MP, HSTROPN #### [facility] [address] [place] [address] Dr. Patrica Nathan EGFR-NON AF DOMINICAN >60 Normal >=60 [facility] Comment on above: Performed By: #### C MP, HSTROPN #### [facility] [address] [place] [address] Dr. Patrica Nathan Globulin (S) [Mass/Vol] 2.9 g/dL Normal [facility] Comment on above: Performed By: #### C MP, HSTROPN #### [facility] [address] [place] [address] Dr. Patrica Nathan Glucose [Mass/Vol] 106 mg/dL Normal 74-106 [facility] Comment on above: Performed By: #### C JV, HSTROPN #### [facility] [address] [place] [address] Dr. Patrica Nathan Potassium [Moles/Vol] 4.1 mmol/L Normal 3.5-5.1 [facility] Comment on above: Performed By: #### C JV, HSTROPN #### [facility] [address] [place] [address] Dr. Patrica Nathan Protein [Mass/Vol] 7.0 g/dL Normal 6.4-8.2 [facility] Comment on above: Performed By: #### C JV, HSTROPN #### [facility] [address] [place] [address] Dr. Patrica Nathan Sodium [Moles/Vol] 138 mmol/L Normal 136-145 [facility] Comment on above: Performed By: #### C MP, HSTROPN #### [facility] [address] [place] [address] Dr. Patrica Nathan Urea nitrogen [Mass/Vol] 18.0 mg/dL Normal 7.0-18.0 [facility] Comment on above: Performed By: #### C MP, HSTROPN #### [facility] [address] [place] [address] Dr. Patrica Nathan Urea nitrogen/Creatinine [Mass ratio] 17.8 mg/mg Normal [facility] Comment on above: Performed By: #### C MP, HSTROPN #### [facility] [address] [place] [address] [id number] [address] Patrica Nathan TSHon 05-02-2022 TSH 2.409 uIU/mL Normal 0.358-3.74 0 [facility] Comment on above: Performed By: #### T SH #### [facility] [address] [place] [address] [id number] [address] Patrica Nathan XR CHEST 2 Von [...] EVGENY MCCLAIN Date: 2022-05-02 07:44 Normal [facility] Covid-19 PCR (CVDTB)on 01-16 SARS-CoV-2 (COVID-19) RNA MARIANNE+probe Ql (Unsp spec) Not detected Normal NOT DETECTED [facility] Comment on above: Result Comment: This test is not yet approved or cleared by the [place] FDA. When there are no FDA-approved or cleared tests available, and other criteria are met, FDA can make tests available under an emergency access mechanism called an Emergency Use Authorization (EUA). The EUA for this test is supported by the [place] of Health and Human Service's (HHS's) declaration [...] SARS-CoV-2. Performed By: #### C VDTBH #### [facility] [address] [address] [address] Patrica Nathan Vital Signs Date Time Vital Sign Value Performing Clinician Facility 05-04-2024 09:12-0400 Body height 187.96 cm [facility] 05-04-2024 09:12-0400 Body mass index (BMI) [Ratio] 23.1 kg/m2 [facility] 05-04-2024 09:12-0400 Body weight 81.76 kg [facility] 05-04-2024 09:12-0400 Diastolic blood pressure 66 mm[Hg] [facility] 05-04-2024 09:12-0400 Heart rate 56 /min [facility] 05-04-2024 09:12-0400 Respiratory rate 12 /min [facility] 05-04-2024 09:12-0400 Systolic blood pressure 132 mm[Hg] [facility] 03-19-2024 09:03-0400 Body height 187.96 cm [facility] 03-19-2024 09:03-0400 Body mass index (BMI) [Ratio] 23.1 kg/m2 [facility] 03-19-2024 09:03-0400 Body temperature 99.8 [degF] [facility] 03-19-2024 09:03-0400 Body weight 81.76 kg [facility] 03-19-2024 09:03-0400 Diastolic blood pressure 63 mm[Hg] [facility] 03-19-2024 09:03-0400 Heart rate 73 /min [facility] 03-19-2024 09:03-0400 SaO2% (BldA) [Mass fraction] 97 % [facility] 03-19-2024 09:03-0400 Systolic blood pressure 118 mm[Hg] [facility] 03-14-2024 10:10-0400 Body height 187.96 cm [facility] 03-14-2024 10:10-0400 Body mass index (BMI) [Ratio] 23.4 kg/m2 [facility] 03-14-2024 10:10-0400 Body weight 82.78 kg [facility] 03-14-2024 10:10-0400 Diastolic blood pressure 80 mm[Hg] [facility] 03-14-2024 10:10-0400 Heart rate 58 /min [facility] 03-14-2024 10:10-0400 Respiratory rate 12 /min [facility] 03-14-2024 10:10-0400 Systolic blood pressure 135 mm[Hg] [facility] 01-28-2024 09:07-0400 Body height 187.96 cm [facility] 01-28-2024 09:07-0400 Body mass index (BMI) [Ratio] 23.4 kg/m2 [facility] 01-28-2024 09:07-0400 Body weight 82.72 kg [facility] 01-28-2024 09:07-0400 Diastolic blood pressure 76 mm[Hg] [facility] 01-28-2024 09:07-0400 Heart rate 58 /min [facility] 01-28-2024 09:07-0400 Respiratory rate 12 /min [facility] 01-28-2024 09:07-0400 Systolic blood pressure 138 mm[Hg] [facility] 11-27-2023 08:33-0400 Body height 187.96 cm [facility] 11-27-2023 08:33-0400 Body mass index (BMI) [Ratio] 23.1 kg/m2 [facility] 11-27-2023 08:33-0400 Body weight 81.7 kg [facility] 11-27-2023 08:33-0400 Diastolic blood pressure 61 mm[Hg] [facility] 11-27-2023 08:33-0400 Heart rate 63 /min [facility] 11-27-2023 08:33-0400 Respiratory rate 12 /min [facility] 11-27-2023 08:33-0400 Systolic blood pressure 114 mm[Hg] [facility] 11-06-2023 15:24-0400 Body height 187.96 cm [facility] 11-06-2023 15:24-0400 Body mass index (BMI) [Ratio] 23.1 kg/m2 [facility] 11-06-2023 15:24-0400 Body weight 81.64 kg [facility] 11-06-2023 15:24-0400 Diastolic blood pressure 64 mm[Hg] [facility] 11-06-2023 15:24-0400 Heart rate 65 /min [facility] 11-06-2023 15:24-0400 Respiratory rate 12 /min [facility] 11-06-2023 15:24-0400 Systolic blood pressure 134 mm[Hg] [facility] 10-28-2023 11:01-0400 Body height 187.96 cm [facility] 10-28-2023 11:01-0400 Body mass index (BMI) [Ratio] 23.2 kg/m2 [facility] 10-28-2023 11:01-0400 Body weight 82.21 kg [facility] 10-28-2023 11:01-0400 Diastolic blood pressure 77 mm[Hg] [facility] 10-28-2023 11:01-0400 Heart rate 59 /min [facility] 10-28-2023 11:01-0400 Respiratory rate 12 /min [facility] 10-28-2023 11:01-0400 Systolic blood pressure 144 mm[Hg] [facility] 09-15-2023 16:00-0500 Body height 187.96 cm [employer] Other [facility] 09-15-2023 16:00-0500 Body mass index (BMI) [Ratio] 23.75 kg/m2 [employer] Other [facility] [employer] Other 09-15-2023 16:00-0500 Body weight 83.92 kg [employer] Other [employer] [employer] Other 09-15-2023 16:00-0500 Body weight 83.91 kg [facility] 09-15-2023 16:00-0500 Diastolic blood pressure 73 mm[Hg] [employer] Other [facility] 09-15-2023 16:00-0500 Respiratory rate 12 /min [employer] Other [facility] [employer] Other 09-15-2023 16:00-0500 Systolic blood pressure 158 mm[Hg] [employer] Other [facility] 08-28-2023 10:00-0500 Body height 187.96 cm [employer] Other [facility] 08-28-2023 10:00-0500 Body mass index (BMI) [Ratio] 23.42 kg/m2 [employer] Other [facility] [employer] Other 08-28-2023 10:00-0500 Body weight 82.74 kg [employer] Other [facility] [employer] Other 08-28-2023 10:00-0500 Body weight 82.73 kg [facility] 08-28-2023 10:00-0500 Diastolic blood pressure 66 mm[Hg] [employer] Other [facility] 08-28-2023 10:00-0500 Respiratory rate 12 /min [employer] Other [facility] [employer] Other 08-28-2023 10:00-0500 Systolic blood pressure 117 mm[Hg] [employer] Other [facility] 07-28-2023 13:13-0500 Blood Pressure Location Angely NILL [facility] 07-28-2023 13:13-0500 Diastolic blood pressure 72 mm[Hg] Angely NILL [facility] 07-28-2023 13:13-0500 Heart rate 72 /min Angely NILL [facility] 07-28-2023 13:13-0500 Respiratory rate 16 /min Angely MCCORMICKL [facility] 07-28-2023 13:13-0500 Systolic blood pressure 118 mm[Hg] Angely NILL [facility] [place] 07-01-2023 10:15-0500 Body height 187.96 cm [employer] Other [employer] Other 07-01-2023 10:15-0500 Body mass index (BMI) [Ratio] 23.13 kg/m2 [employer] Other [employer] Other 07-01-2023 10:15-0500 Body weight 81.74 kg [employer] Other [facility] Other 07-01-2023 10:15-0500 Diastolic blood pressure 70 mm[Hg] [employer] Other [facility] Other 07-01-2023 10:15-0500 Respiratory rate 12 /min [employer] Other [employer] Other 07-01-2023 10:15-0500 Systolic blood pressure 135 mm[Hg] [employer] Other [employer] Other 06-20-2023 02:33-0400 Diastolic blood pressure 74 mm[Hg] DO [employer] Ball Work Phone: [facility] 06-20-2023 02:33-0400 Heart rate 78 /min DO [employer] Work Phone: [facility] 06-20-2023 02:33-0400 Respiratory rate 16 /min DO [employer] Work Phone: [facility] 06-20-2023 02:33-0400 SaO2% (BldA) [Mass fraction] 96 % DO [employer] Ball Work Phone: [facility] 06-20-2023 02:33-0400 Systolic blood pressure 158 mm[Hg] DO [employer] Work Phone: [facility] 06-19-2023 20:47-0400 Body height 187.96 cm DO [employer] Work Phone: [facility] 06-19-2023 20:47-0400 Body temperature 97.9 [degF] DO [employer] Work Phone: [facility] 06-19-2023 20:47-0400 Body weight 80.3 kg DO [employer] Work Phone: [facility] 06-17-2023 15:45-0400 Body height 187.96 cm [employer] Other [facility] [employer] Other 06-17-2023 15:45-0400 Body mass index (BMI) [Ratio] 23.65 kg/m2 [employer] Other [employer] Other 06-17-2023 15:45-0400 Body temperature 97.3 [degF] [employer] Other [employer] Other 06-17-2023 15:45-0400 Body weight 83.55 kg [employer] Ball Other [employer] Other 06-17-2023 15:45-0400 Diastolic blood pressure 57 mm[Hg] [employer] Other [employer] Other 06-17-2023 15:45-0400 Respiratory rate 12 /min [employer] Other [employer] Other 06-17-2023 15:45-0400 Systolic blood pressure 128 mm[Hg] [employer] Other [employer] Other 05-20-2023 08:45-0400 Body height 187.96 cm [employer] Other [employer] Other 05-20-2023 08:45-0400 Body mass index (BMI) [Ratio] 23.62 kg/m2 [employer] Other [employer] Other 05-20-2023 08:45-0400 Body weight 83.46 kg [employer] Other [employer] Other 05-20-2023 08:45-0400 Diastolic blood pressure 82 mm[Hg] [employer] Other [employer] Other 05-20-2023 08:45-0400 Respiratory rate 12 /min [employer] Other [employer] Other 05-20-2023 08:45-0400 Systolic blood pressure 121 mm[Hg] [employer] Other [employer] Other 04-21-2023 11:30-0400 Body height 187.96 cm [employer] Other [employer] Other 04-21-2023 11:30-0400 Body mass index (BMI) [Ratio] 23.34 kg/m2 [employer] Other [employer] Other 04-21-2023 11:30-0400 Body weight 82.46 kg [employer] Other [employer] Other 04-21-2023 11:30-0400 Diastolic blood pressure 65 mm[Hg] [employer] Other [employer] Other 04-21-2023 11:30-0400 Respiratory rate 12 /min [employer] Other [employer] Other 04-21-2023 11:30-0400 Systolic blood pressure 165 mm[Hg] [employer] Other [employer] Other 03-01-2023 08:00-0400 Diastolic blood pressure 82 mm[Hg] DO Cisco Ball Work Phone: [facility] 03-01-2023 08:00-0400 Heart rate 62 /min DO Cisco Ball Work Phone: [facility] 03-01-2023 08:00-0400 Respiratory rate 16 /min DO Cisco Ball Work Phone: [facility] 03-01-2023 08:00-0400 SaO2% (BldA) [Mass fraction] 96 % DO Cisco Ball Work Phone: [facility] 03-01-2023 08:00-0400 Systolic blood pressure 146 mm[Hg] DO Cisco Ball Work Phone: [facility] 03-01-2023 06:58-0400 Body height 187.96 cm DO Cisco Ball Work Phone: [facility] 03-01-2023 06:58-0400 Body weight 84.8 kg DO Cisco Ball Work Phone: [facility] 02-24-2023 08:30-0400 Body height 187.96 cm Cisco Ball Other [facility] [employer] Other 02-24-2023 08:30-0400 Body mass index (BMI) [Ratio] 24.21 kg/m2 Cisco Ball Other [facility] [employer] Other 02-24-2023 08:30-0400 Body weight 85.55 kg Cisco Ball Other [facility] [employer] Other 02-24-2023 08:30-0400 Diastolic blood pressure 67 mm[Hg] Cisco Ball Other [facility] [employer] Other 02-24-2023 08:30-0400 Respiratory rate 12 /min Cisco Ball Other [facility] Other 02-24-2023 08:30-0400 Systolic blood pressure 112 mm[Hg] Cisco Ball Other [facility] Other 11-21-2022 11:45-0400 Body height 187.96 cm Cisco Ball Other [facility] Other 11-21-2022 11:45-0400 Body mass index (BMI) [Ratio] 24.98 kg/m2 Cisco Ball Other [facility] Other 11-21-2022 11:45-0400 Body weight 88.27 kg Cisco Ball Other [facility] Other 11-21-2022 11:45-0400 Diastolic blood pressure 73 mm[Hg] Cisco Ball Other [facility] Other 11-21-2022 11:45-0400 Respiratory rate 12 /min Cisco Ball Other [facility] Other 11-21-2022 11:45-0400 Systolic blood pressure 147 mm[Hg] Cisco Ball Other [facility] Other 10-22-2022 08:30-0500 Body height 187.96 cm Cisco Ball Other [facility] Other 10-22-2022 08:30-0500 Body mass index (BMI) [Ratio] 24.73 kg/m2 Cisco Ball Other [facility] Other 10-22-2022 08:30-0500 Body weight 87.36 kg Cisco Ball Other [facility] Other 10-22-2022 08:30-0500 Diastolic blood pressure 64 mm[Hg] Cisco Ball Other [facility] Other 10-22-2022 08:30-0500 Respiratory rate 12 /min Cisco Ball Other [facility] Other 10-22-2022 08:30-0500 Systolic blood pressure 118 mm[Hg] Cisco Ball Other [facility] Other 10-07-2022 09:45-0500 Body height 187.96 cm Cisco Ball Other [facility] Other 10-07-2022 09:45-0500 Body mass index (BMI) [Ratio] 24.31 kg/m2 Cisco Ball Other [facility] Other 10-07-2022 09:45-0500 Body weight 85.91 kg Cisco Ball Other [facility] Other 10-07-2022 09:45-0500 Diastolic blood pressure 70 mm[Hg] Cisco Ball Other [facility] Other 10-07-2022 09:45-0500 Respiratory rate 12 /min Cisco Ball Other [facility] Other 10-07-2022 09:45-0500 Systolic blood pressure 122 mm[Hg] Cisco Ball Other [facility] Other 08-27-2022 10:48-0500 Diastolic blood pressure 82 mm[Hg] DO Cisco Ball Work Phone: [facility] 08-27-2022 10:48-0500 Heart rate 64 /min DO Cisco Ball Work Phone: [facility] 08-27-2022 10:48-0500 Respiratory rate 16 /min DO Cisco Ball Work Phone: [facility] 08-27-2022 10:48-0500 SaO2% (BldA) [Mass fraction] 96 % DO Cisco Ball Work Phone: [facility] 08-27-2022 10:48-0500 Systolic blood pressure 146 mm[Hg] DO Cisco Abbe Work Phone: [facility] 08-27-2022 09:01-0500 Body height 187.96 cm DO Cisco Nicholson Work Phone: [facility] 08-27-2022 09:01-0500 Body temperature 97.8 [degF] DO Cisco Nicholson Work Phone: [facility] 08-27-2022 09:01-0500 Body weight 86.63 kg DO Cisco Nicholson Work Phone: [facility] Encounters Encounter Date Encounter Type Care Provider Facility Start: 07-05-2024 End: 07-05-2024 Bamboo flowsheet Miguel Angel Slaughter DO Work Phone: [facility] Start: 07-05-2024 End: 07-05-2024 Bamboo flowsheet Miguel Angel Slaughter DO Work Phone: [facility] Start: 07-05-2024 End: 07-05-2024 ambulatory MIGUEL ANGEL SLAUGHTER Not Available Start: 06-12-2024 End: 06-13-2024 Refill Miguel Angel Slaughter DO Work Phone: [facility] Comment on above: 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, moderate stage (CMS/HCC) (Primary Dx) Start: 05-04-2024 End: 05-04-2024 ambulatory [facility] Work Phone: Start: 05-04-2024 End: 05-04-2024 Patient encounter procedure [facility] Work Phone: Start: 03-19-2024 End: 03-19-2024 ambulatory [facility] Work Phone: Start: 03-19-2024 End: 03-19-2024 Patient encounter procedure [facility] Work Phone: Start: 03-15-2024 Non-patient / Non-visit [facility] Work Phone: Start: 03-14-2024 End: 03-14-2024 ambulatory [facility] Work Phone: Start: 03-14-2024 End: 03-14-2024 Patient encounter procedure [facility] Work Phone: Start: 02-24-2024 End: 02-24-2024 ambulatory MIGUEL ANGEL SLAUGHTER Not Available Start: 02-22-2024 End: 02-22-2024 ambulatory CHEYANNE Law DEION Not Available Start: 01-28-2024 End: 01-28-2024 ambulatory [facility] Work Phone: Start: 01-28-2024 End: 01-28-2024 Patient encounter procedure [facility] Work Phone: Start: 01-22-2024 Non-patient / Non-visit [facility] Work Phone: Start: 01-08-2024 End: 01-08-2024 ambulatory MIGUEL ANGEL SLAUGHTER Not Available Start: 12-14-2023 End: 12-14-2023 ambulatory AB [facility] Start: 11-27-2023 End: 11-27-2023 ambulatory [facility] Work Phone: Start: 11-27-2023 End: 11-27-2023 Patient encounter procedure [facility] Work Phone: Start: 11-16-2023 Non-patient / Non-visit [facility] Work Phone: Start: 11-06-2023 End: 11-06-2023 ambulatory [facility] Work Phone: Start: 11-06-2023 End: 11-06-2023 Patient encounter procedure [facility] Work Phone: Start: 10-28-2023 End: 10-28-2023 Patient encounter procedure [facility] Work Phone: Start: 10-05-2023 Non-patient / Non-visit [facility] [employer] Work Phone: Start: 09-21-2023 End: 09-21-2023 ambulatory Cisco Nicholson Other [facility] Other Start: 09-21-2023 Telephone encounter Cisco Nicholson CY[facility] Start: 09-16-2023 End: 09-16-2023 ambulatory Cisco Nicholson Other [employer] Other Start: 09-16-2023 Telephone encounter Cisco Nicholson CYNDI [facility] Start: 09-15-2023 End: 09-15-2023 ambulatory Cisco Nicholson Other [employer] Other Start: 09-15-2023 Office outpatient vi sit 15 minutes Cisco Nicholson [facility] Start: 09-15-2023 End: 09-15-2023 Patient encounter procedure [facility]- Start: 09-04-2023 End: 09-04-2023 ambulatory MIGUEL ANGEL SLAUGHTER Not Available Start: 09-02-2023 End: 09-02-2023 Patient encounter procedure Angely OCAMPO [facility] N[facility] [place] Start: 08-30-2023 End: 08-30-2023 ambulatory Cisco Nicholson Other [employer] Other Start: 08-30-2023 Telephone encounter Cisco HANNA [facility] Start: 08-28-2023 End: 08-28-2023 ambulatory Cisco Nicholson Other [employer] Other Start: 08-28-2023 Patient encounter procedure Cisco Nicholson [facility] Start: 08-28-2023 Telephone encounter Cisco HANNA [facility] Start: 08-28-2023 End: 08-28-2023 Patient encounter procedure [facility] Work Phone: Start: 08-26-2023 ambulatory Angely R NILL Facility : [place] Start: 08-26-2023 End: 08-26-2023 Patient encounter procedure Angely R NILL General Surgery Nill/Said [place] Start: 08-24-2023 End: 08-24-2023 ambulatory Cisco Nicholson Other [employer] Other Start: 08-24-2023 Telephone encounter Cisco HANNA [facility] Start: 08-23-2023 End: 08-23-2023 ambulatory Cisco Nicholson Other [employer] Other Start: 08-23-2023 Telephone encounter Cisco HANNA [facility] Start: 07-28-2023 End: 07-29-2023 ambulatory Angely R NILL Facility: [place] Start: 07-28-2023 End: 07-28-2023 Patient encounter procedure Angely R NILL General Surgery Nill/[facility] [place] Start: 07-01-2023 End: 07-01-2023 ambulatory Cisco Nicholson Other [employer] Other Start: 07-01-2023 Transitional care manage srvc 14 day discharge Cisco Nicholson [facility] Start: 06-26-2023 ambulatory Angely NILL Facility:[facility] [place] Start: 06-24-2023 End: 06-24-2023 ambulatory Cisco Nicholson Other [employer] Other Start: 06-24-2023 Telephone encounter Cisco HANNA [facility] Start: 06-20-2023 End: 06-22-2023 Evaluation and management of inpatient Berhane Chambersdict Facility:[facility] Start: 06-20-2023 Evaluation and management of inpatient DO Cisco Ball Work Phone: [facility] Work Phone: Start: 06-20-2023 observation encounter DO Shaji Nicholson Work Phone: [facility] Work Phone: Start: 06-19-2023 End: 06-19-2023 ambulatory Cisco Ball Other [employer] Other Start: 06-19-2023 Telephone encounter Cisco Ball [facility] Start: 06-18-2023 End: 06-18-2023 ambulatory Cisco Ball Other [employer] Other Start: 06-18-2023 Telephone encounter Cisco Ball [facility] Start: 06-17-2023 End: 06-17-2023 ambulatory Cisco Ball Other [employer] Other Start: 06-17-2023 Office outpatient vi sit 15 minutes Cisco Ball [facility] Start: 06-17-2023 Telephone encounter Cisco Ball [facility] Start: 06-02-2023 End: 06-02-2023 ambulatory Cisco Ball Other [employer] Other Start: 06-02-2023 Telephone encounter Cisco Ball [facility] Start: 05-20-2023 End: 05-20-2023 ambulatory Cisco Ball Other [employer] Other Start: 05-20-2023 Office outpatient vi sit 25 minutes Cisco Ball [facility] Start: 05-11-2023 End: 05-11-2023 ambulatory Cisco Ball Other [employer] Other Start: 05-11-2023 Telephone encounter Cisco Ball [facility] Start: 04-27-2023 End: 04-27-2023 ambulatory Cisco Nicholson Other [employer] Other Start: 04-27-2023 Telephone encounter Cisco HANNA [facility] Start: 04-23-2023 End: 04-23-2023 ambulatory Cisco Nicholson Other [employer] Other Start: 04-23-2023 Telephone encounter Cisco HANNA [facility] Start: 04-21-2023 End: 04-21-2023 ambulatory Cisco Nicholson Other [employer] Other Start: 04-21-2023 Office outpatient vi sit 25 minutes Cisco [facility] Start: 03-16-2023 End: 03-16-2023 ambulatory Cisco Nicholson Other [employer] Other Start: 03-16-2023 Telephone encounter Cisoc HANNA [facility] Start: 03-04-2023 Telephone encounter Cisco [facility] Start: 03-04-2023 End: 03-04-[address] Cisco Nicholson [facility] Other Start: 03-03-2023 End: 03-03-2023 ambulatory Cisco Nicholson Other [employer] Other Start: 03-03-2023 Telephone encounter [facility] Start: 03-01-2023 End: 03-02-[address] Cisco Nicholson Facility:[id number] Start: 03-01-2023 Evaluation and management of inpatient DO Cisco Nicholson Work Phone: [facility] [place] [facility] Work Phone: Start: 03-01-2023 observation encounter DO Shaji Nicholson Work Phone: [facility] Work Phone: Start: 02-24-2023 End: 02-24-2023 ambulatory Cisco Nicholson Other [employer] Other Start: 02-24-2023 Office outpatient vi sit 25 minutes Cisco Abbe [facility] Start: 01-20-2023 End: 01-20-2023 ambulatory Cisco Nicholson Other [employer] Other Start: 01-20-2023 Telephone encounter Cisco Nicholson [facility] Start: 11-21-2022 End: 11-21-2022 ambulatory Cisco Nicholson Other [employer] Other Start: 11-21-2022 Office outpatient vi sit 15 minutes Cisco Abbe [facility] Start: 10-22-2022 End: 10-22-2022 ambulatory Cisco Nicholson Other [employer] Other Start: 10-22-2022 Office outpatient vi sit 25 minutes Cisco Nicholson [facility] Start: 10-12-2022 End: 10-12-2022 ambulatory Cisco Abbe Facility:[facility] Start: 10-12-2022 End: 10-12-2022 ambulatory DO Cisco Nicholson Work Phone: [facility] Work Phone: Start: 10-12-2022 End: 10-12-2022 Patient encounter procedure DO Cisco Nicholson Work Phone: [facility] [place] Work Phone: Start: 10-07-2022 End: 10-07-2022 ambulatory Cisco Abbe Other [employer] Other Start: 10-07-2022 Office outpatient vi sit 15 minutes Cisco Nicholson [facility] Start: 09-14-2022 End: 09-14-[address] CISCO NICHOLSON Facility:[facility]1 Start: 09-08-2022 End: 09-08-2022 ambulatory Imad Asaad Other [employer] Other Start: 09-08-2022 Telephone encounter Imad Asaad [facility] Start: 09-05-2022 End: 09-05-2022 ambulatory Cisco Nicholson Other [employer] Other Start: 09-05-2022 Telephone encounter Cisco HANNA [facility] Start: 09-03-2022 End: 09-03-2022 ambulatory Imad Asaad Other [employer] Other Start: 09-03-2022 Telephone encounter Imad Asaad [facility] Start: 09-01-2022 End: 09-01-2022 ambulatory Imad Asaad Other [employer] Other Start: 09-01-2022 Telephone encounter Imad Asaad [facility] [employer] Start: 08-27-2022 Telephone encounter Stalin HANNA [facility] Start: 08-27-2022 End: 08-27-2022 ambulatory Cisco Nicholson Facility:[facility] Start: 08-27-2022 End: 08-27-2022 Admission to same day surgery center DO Cisco Nicholson Work Phone: [facility] Work Phone: Start: 08-27-2022 End: 08-27-2022 ambulatory DO Cisco Nicholson Work Phone: [facility] Work Phone: Start: 08-22-2022 End: 08-22-2022 ambulatory Imad Asaad Other [employer] Other Start: 08-22-2022 Telephone encounter Imad Asaad [facility] [employer] Start: 08-20-2022 End: 08-20-2022 ambulatory Cisco Nicholson Other [employer] Other Start: 08-20-2022 Telephone encounter Cisco HANNA [facility] Start: 08-19-2022 End: 08-19-2022 ambulatory Cisco Nicholson Other [employer] Other Start: 08-19-2022 Telephone encounter Cisco Nicholson [...] Date Procedure Procedure Detail Performing Clinician Start: 07-05-2024 Visual field xm uni/bi w/interp extended exam Miguel Angel Slaughter DO Work Phone: Start: 07-05-2024 End: 07-05-2024 [facility] compr[facility] estab pt 1/> Primary open angle glaucoma (POAG) of both eyes, moderate stage (CMS/HCC) Miguel Angel Slaughter DO Work Phone: Comment on above: Primary open angle glaucoma (POAG) of kim th eyes, moderate stage (CMS/HCC) (Primary Dx); Dry eyes; PCO (posterior capsular opacification), bilateral; Blepharitis of upper and lower eyelids of both eyes, unspecified type; Diplopia Start: 08-19-2023 Repair of left inguinal hernia [...] on above: Performed By: #### PSASC #### [facility] [address] [address] [address] Patrica Nathan Cardiac catheterization Renato OCAMPO History of operative procedure on shoulder Angely OCAMPO Comment on above: x3 Repair of right inguinal hernia Angely OCAMPO Plan of Treatment Date Care Activity Detail Author Start: 07-05-2024 End: 07-05-2024 Patient encounter procedure [facility] Comment on above: Arrived Start: 04-17-2024 Influenza vaccination Influenza Vacc ine (#1) [facility] Start: 06-20-2023 Plain chest X-ray XR chest 2V* [facility] Start: 06-20-2023 XR Chest 2 Views [facility] Start: 06-20-2023 Hospital admission [facility] Start: 06-20-2023 [facility] Start: 06-20-2023 CT of head without contrast CT head/brain wo con [facility] Start: 06-20-2023 CT Unspecified body region WO contrast [facility] Start: 03-01-2023 Physical therapy procedure [facility] Start: 03-01-2023 Referral to occupati onal therapist [facility] Start: 03-01-2023 Referral to neurologist [facility] Start: 03-01-2023 Hospital admission [facility] Start: 03-01-2023 [facility] Start: 08-27-2022 [facility] Bacteria identified in Urine by Culture [facility] Helicobacter pylori Ag [Presence] in Stool by Immunoassay [facility] Patient Education Colon Polypectomy (DC) [facility] Work Phone: [facility] Immunizations Immunization Date Immunization Notes Care Provider Hugo laboy 05-04-2024 influenza, high dose seasonal, preservative-free [facility] 05-04-2024 influenza virus vaccine, unspecified formulation Miguel Angel Zanishaaga DO Work Phone: [facility] 07-01-2023 influenza virus vaccine, unspecified formulation [facility] 07-01-2023 influenza, high dose seasonal, preservative-free Cisco Nicholson Other [employer] Other 07-04-2022 SARS-CoV-2 (COVID-19 ) [id number] Angely OCAMPO [facility] 06-05-2022 influenza virus vaccine, split virus (incl. purified surface antigen) Cisco Nicholson Other [employer] Other 06-05-2022 influenza virus vaccine, unspecified formulation [facility] 03-28-2022 diphtheria, tetanus toxoids and acellular pertussis vaccine, unspecified formulation Cisco Nicholson Other [facility] 11-16-2021 SARS-CoV-2 mRNA (acpssthaiar-kymi-morh ose) vaccine Angely OCAMPO [facility] 06-28-2021 influenza virus vaccine, split virus (incl. purified surface antigen) Cisco Nicholson Other [employer] Other 06-28-2021 influenza virus vaccine, unspecified formulation [facility] 05-18-2021 SARS-CoV-2 (COVID-19 ) mRNA BNT-162b2 vax Angely OCAMPO [facility] Comment on above: Result Comment: 2022: [id number] 10-06-2020 SARS-CoV-2 (COVID-19 ) mRNA BNT-162b2 vax Angely OCAMPO [facility] Comment on above: Result Comment: 2022: [id number] 09-15-2020 COVID-19 Vaccine Pfizer - Documentation Purposes Only Cisco Nicholson Other [facility] [place] Comment on above: Result Comment: 2022: [id number] 05-30-2020 influenza virus vaccine, split virus (incl. purified surface antigen) Cisco Nicholson Other [place] [facility] Other 05-30-2020 influenza virus vaccine, unspecified formulation [facility] 06-01-2019 influenza virus vaccine, split virus (incl. purified surface antigen) Cisco Nicholson Other [facility] [employer] Other 06-01-2019 influenza virus vaccine, unspecified formulation [facility] 06-09-2018 influenza virus vaccine, split virus (incl. purified surface antigen) Cisco Nicholson Other [facility] [employer] Other 06-09-2018 influenza virus vaccine, unspecified formulation [facility] 05-14-2017 tetanus and diphther ia toxoids, adsorbed, preservative free, for adult use (5 Lf of tetanus toxoid and 2 Lf of diphtheria toxoid) Cisco Nicholson Other [facility] 05-26-2016 influenza virus vaccine, split virus (incl. purified surface antigen) Cisco Nicholson Other [employer] Other 05-26-2016 influenza virus vaccine, unspecified formulation [facility] 11-27-2015 pneumococcal conjuga te vaccine, 13 valent Cisco Nicholson Other [facility] 05-30-2015 influenza virus vaccine, split virus (incl. purified surface antigen) Cisco Nicholson Other [facility] [employer] Other 05-30-2015 influenza virus vaccine, unspecified formulation [facility] 06-14-2013 pneumococcal polysaccharide vaccine, 23 valent Cisco Nicholson Other [facility] 05-23-2013 tetanus and diphther ia toxoids, adsorbed, preservative free, for adult use (5 Lf of tetanus toxoid and 2 Lf of diphtheria toxoid) Cisco Abbe Other [facility] NEGATED: Highlighted row has not occurred!07-28-2023 influenza virus vaccine, unspecified formulation Angely OCAMPO [facility] [place] Payers Date Payer Category Payer Self-pay 2022 Private Health Insurance [employer] Dc mber [id number] 2008 Medicare MEDICARE [id number] 1959 Medicare [id number] 1959 Unknown [id number] 1943 Unknown [id number] 2.16.840.1.561895.3.579.2 .593 1943 Unknown [id number] 2.16840.1.715580.3.579.2 .593 1943 Unknown [id number] 2.16.840.1.732426.3.579.2 .593 1943 Unknown [id number] 2.16.840.1.758157.3.579.2 .593 1943 Unknown [id number] 2.16.840.1.823138.3.579.2 .593 1943 Unknown [id number] 2.16.840.1.363404.3.579.2 .593 1943 Unknown [id number] 2.16.840.1.868058.3.579.2 .593 1943 Unknown [id number] 2.840.1.464778.3.579.2 .593 1943 Unknown [id number] 2..840.1.912366.3.579.2 .356 1943 Unknown [id number] 2..840.1.481898.3.579.2 .727 1943 Unknown [id number] 2..840.1.701667.3.579.2 .727 1943 Unknown [id number] 2.840.1.029278.3.579.2 .1259 1943 Unknown [id number] 2.840.1.551081.3.579.2 .1259 1943 Unknown [id number] 2.840.1.377518.3.579.2 .1259 1943 Unknown [id number] 2..840.1.611747.3.579.2 .1259 1943 Unknown [id number] 2.16.840.1.472799.3.579.2 .1259 1943 Unknown [id number] 2.16.840.1.321291.3.579.2 .1259 Unknown [id number] 2.16.840.1.933783.3.579.2 .531 Unknown [id number] 2.16.840.1.378890.3.579.2 .531 Unknown [id number] 2.16.840.1.420363.3.579.2 .531 Unknown [id number] 2.16.840.1.540170.3.579.2 .531 Social History Date Type Detail Facility Tobacco smoking stat us [facility] Unknown if ever smoked [facility] Work Phone: Start: 1945 Sex Assigned At Male F [facility] Start: 02-22-2024 Sex Assigned At F [facility] Start: 03-01-2023 End: 01-08-2024 Tobacco smoking status NCIS Ex-smoker (finding) [facility] Tobacco smoking status Never [facility] [place] History of tobacco use Current smoker [facility] History of tobacco use [facility]igarette [facility]oker [facility] Start: 01-08-2024 Tobacco use and exposure Smokeless tobacco non-user [facility] Start: 02-22-2024 History of Social function [facility] Start: 1945 Sex assigned at Not on file N [facility] Healthcare Goals Date Patient Goal Desired Activity /State Functional Status Date Assessment Result Facility 07-28-2023 Functional Status N/A [facility] Clinical Notes 03-20-2022 to 07-05-2024 Miguel Angel Slaughter, DO - 07/05/2024 9:30 AM EST Note Date & Type Note Facility 07-05-2024 Note Right Eye Reliability was borderline. Progression has been stable. Foveal threshold was normal. Findings include normal observations. Left Eye Reliability was good. Progression has been stable. Foveal threshold was normal. Findings include normal observations. [facility] 07-05-2024 History of Present illness Narrative Images from the original note were not included. Assessment/Plan Diagnoses and all orders for this visit: Primary open angle glaucoma (POAG) of both eyes, moderate stage (CMS/HCC) - Primary open angle glaucoma OU - Importance of taking medications as prescribed was stressed. Patient was advised to report any inability or unwillingness to take medications or if cost is a concern. Patient must report any side effects that may develop. Patient must report any change in systemic medications as they may interact or interfere with their glaucoma medications. Patient will be dilated at least on an annual basis for optic nerve evaluation and will likely have an automated visual field examination at least once a year. It was explained to the patient that they might require additional treatment for intraocular pressure control such as laser therapy or surgical intervention. - Status post (s/p) Hydrus stent both eyes (OU). - Cont. Latanoprost both eyes (OU) at bedtime and Simbrinza both eyes (OU) BID. Dry eyes - Dry Eyes OU -- Environmental changes to minimize dryness and exposure and the use of artificial tears were recommended. PCO (posterior capsular opacification), bilateral - PCO OU: (Posterior Capsule Opacification) Can be observed without intervention if PCO is not visually significant. Nd:YAG laser capsulotomy may be considered if impairment of vision rises to a level that dose not meet the patient's functional needs or interferes with activities of daily living. Risks, benefits and alternatives to the procedure will be reviewed. If the patient has undergone Nd:YAG laser capsulotomy, they are to notify their patrol driver promptly if they have a significant change in symptoms, such as flashes of light (photopsia), an increase in floaters, loss of visual field or decrease in visual acuity. Blepharitis of upper and lower eyelids of both eyes, unspecified type - Blepharitis, posterior type OU - The patient exhibits inspissated meibomian glands. Warm compresses, lid massage and lid scrubs were recommended. Diplopia - Resolved after cessation of Escitalopram. documented in this encounter [facility] 12-14-2023 Note [facility] Cardiology Clinic Note Chief Complaint: Patient here [...] 5. Follow up with me in the [place] [facility] in 1 to 2 months. 6. [...] E78.2: Mixed hyperlipidemia 3. Coronary arteriosclerosis in [place] artery - Continue medications as prescribed including aspirin, Lipitor, metoprolol I25.10: Atherosclerotic heart disease of [place] coronary artery without angina pectoris metoprolol tartrate 25 mg tablet - TAKE ONE-HALF (more content not included)... [facility] 09-16-2023 Evaluation note Encounter Date Diagnosis Assessment Notes Aug, GREYSON (generalized anxiety disorder) (ICD-10 - F41.1) [facility] Other 01-30-2024 Evaluation note* Encounter Date Diagnosis [...] treatment Referred and scheduled w/ Neuropsychiatric testing [facility] Other 01-12-2024 Evaluation note* Encounter Date Diagnosis [...] Denies dysuria or hematuria PSA next OV [facility] Other [id number] NoteChief Complaint consultation for left inguinal hernia HPI Staff 78 year old male presents on consultation from Dr. Nichoslon for left inguinal hernia. Reports he noted [...] Use:. Cigarettes, 2per day. (more content not included)...[facility]Result Comment: Electronically Signed By: TOO TEJADA, Angely Daniels\Date and Time Signed: 07/28/23 20:29 [id number] Evaluation note * Encounter Date Diagnosis Assessment [...] Fall precuations. Discussed tapering dose of Gabapentin [facility] Other 11-02-2023 Evaluation note* Encounter Date Diagnosis Assessment Notes Treatment Notes Treatment Clinical Notes Jun, COVID-19 (ICD-10 - U07.1) [facility] Other 11-01-2023 Evaluation note* Encounter Date Diagnosis [...] or drinking prior to bedtime. Weight loss. [facility] Other 10-04-2023 Evaluation note* Encounter Date Diagnosis [...] now. Recheck in month, consider Neurology referral [facility] Other 09-25-2023 Evaluation note* Encounter Date Diagnosis Assessment Notes Treatment Notes Treatment Clinical Notes Apr, COVID (ICD-10 - U07.1) [facility] Other 09-07-2023 Evaluation note* Encounter Date Diagnosis Assessment Notes Treatment Notes Treatment Clinical Notes Apr, Right lower quadrant abdominal pain (ICD-10 - R10.31) [facility] Other 09-05-2023 Evaluation note* Encounter Date Diagnosis [...] a trip to ER for IV hydration. [facility] Other 07-31-2023 Evaluation note* Encounter Date Diagnosis Assessment Notes Treatment Notes Treatment Clinical Notes Feb, Primary insomnia (ICD-10 - F51.01) [facility] Other 07-18-2023 Evaluation note* Encounter Date Diagnosis Assessment Notes Treatment Notes Treatment Clinical Notes Feb, Peripheral polyneuropathy (ICD-10 - G62.9) [facility] Other 07-11-2023 Evaluation note* Encounter Date Diagnosis [...] Healtlhy diet, exercise and proper sleep routine [facility] Other 06-06-2023 Evaluation note* Encounter Date Diagnosis Assessment Notes Treatment Notes Treatment Clinical Notes Jan, Peripheral polyneuropathy (ICD-10 - G62.9) [facility] Other 04-07-2023 Evaluation note* Encounter Date Diagnosis [...] continue exercise to achieve/maintain a normal BMI. [facility] Other 03-08-2023 Evaluation note* Encounter Date Diagnosis [...] in remission (ICD-10 - F17.211) Continue abstinence [facility] Other 02-21-2023 Evaluation note* Encounter Date Diagnosis [...] Fall precautions. Inspect feet daily for cuts. [facility] Other 01-18-2023 Evaluation note* Encounter Date Diagnosis Assessment Notes Treatment Notes Treatment Clinical Notes Aug, Helicobacter pylori (H. pylori) (ICD-10 - A04.8) [place] [facility] To Other 01-11-2023 History and physical note Author [facility] August 27, 2022 10:16am Note Date/Time August 27, 2022 1 0:16am [facility] [address] [place] [address] Gastroenterology H&P Signed Patient: Yonatan Patel MR#: [id number] : 1945 Acct:[id number] Age/Sex: 77 / M Adm Date: 3 Loc: Room: Type: [facility] Attending Dr: Alek Oliva MD Copies to: DO Maryjane Adler MD Mazen Issa, MD~ Date of Service: 08/27/2022 HISTORY & [...] signed by Maryjane Christensen MD> 08/27/22 1016 [facility] Work Phone: 1(168) 673-977401-11-2023 [facility] Evaluation note* Encounter Date Diagnosis Assessment Notes Treatment Notes Treatment Clinical Notes Aug, Primary insomnia (ICD-10 - F51.01) [facility] Other 08-04-2022 NoteHISTORY AND PHYSICAL EXAMINATION Date:03/19/2022 [...] Pupils motility, muscle balance and confrontational visual gonzaelz within normal limits bilaterally. Pressures are measured [...] doing so in the near future. 3. [id number] patient was briefed in the office and [...] and go forward with this elective procedure.[facility] [id number] NoteOPERATIVE NOTE OPERATION DATE: 03/20/2022 SURGEON: Miguel [...] ensuring mobility, phacoemulsification was performed in a [id number]-type fashion. After all nuclear material had been [...] and after satisfaction could be achieved, the social science teacher and the gonioprism were removed from [...] up the following day for postoperative care.[facility] note Author Berhane Trammell [facility] March 01, 2023 2:24pm Note Date/Time March 01, 2023 2:24 pm [facility] [address] [place] [address] Neurology Consult Note Signed Patient: Yonatan Patel MR#: [id number] : 1945 Acct:[id number] Age/Sex: 77 / M Adm Date: 3 Loc: Room: [address] [place] [address] Type: ADM INOo Attending Dr: Bobo Villagomez MD Copies to: DO Bobo Adler MD Steven Benedict, MD~ HPI Consult Date: 03/01/23 Solid Waste Facility Operator: Berhane Trammell MD Reason for consult: Leg [...] Selena Reid M.D.03/01/2023 9:15 AM Dictation Location: [place] [address] 03/01/23 07:02 IMPRESSION: ATROPHY AND CHRONIC MICROVASCULAR CHANGES. NO DEFINITE ACUTE INTRACRANIAL ABNORMALITY. FOLLOW-UP IS RECOMMENDED, SYMPTOMS WARRANT. COMMENT: Preliminary report was provided at 0730 hours. Impression dictated by: Selena Reid M.D.03/01/2023 8:13 AM Dictation Location: [place] [address] Therapy Recommendations Therapy Recommendations: OT Recommendations OT [...] signed by MD Berhane Trammell> 03/01/[address] [facility] Work Phone: Discharge summary Author Angely Lee [facility] March 02, 2023 5:49pm Note Date/Time March 02, 2023 5:43 pm [facility] [address] [place] [address] Discharge Summary Signed Patient: Yonatan Patel MR#: [id number] : 1945 Acct:[id number] Age/Sex: 77 / M Adm Date: 3 Loc: 3T Room: [address] [place] [address]: Angely Lee DO Copies to: [...] 37 Signed By: <Electronically signed by Angely Lee, > 03/02/23 1749 [facility] Work Phone: Evaluation + Plan note No data available for this section General Surgery [place] evaluation + Plan note Future Appointments Appointment Date:09/02/2023 02:40:00 PM Scheduled Provider:Angely OCAMPO MD Location:[facility] Appointment Type: Post Op 15 General Surgery [place] evaluation noteNo assessment information available [facility] Work Phone: evaluation noteNo InformationNort Transfer To Other evaluation note* Diagnosis Onset Date Resolution Status Bilateral leg pain acute Numbness of left hand acute [facility] Work Phone: evaluation note* Diagnosis Onset Date Resolution Status Adverse drug effect acute Altered mental status acute COVID acute Hypertension acute Lab test positive for detection of COVID-19 virus acute Neuropathy acute [facility] Work Phone: evalunmlpn note* Diagnosis Onset Date Resolution Status GREYSON (generalized anxiety disorder) acute GERD (gastroesophageal reflux disease) acute Hypercholesteremia acute Hypertension acute Peripheral polyneuropathy ac [place] Primary insomnia acute [facility] Work Phone: evaluation note* Diagnosis Onset Date Resolution Status GREYSON (generalized anxiety disorder) acute GERD (gastroesophageal reflux disease) acute Hypercholesteremia acute Hypertension acute Peripheral polyneuropathy ac [place] Primary insomnia acute GREYSON (generalized anxiety disorder) acute Hypertension acute Irritable bowel syndrome with constipation acute Acute prostatitis noneactive ASHD (arteriosclerotic heart disease) acute GREYSON (generalized anxiety disorder) acute Hypercholesteremia acute Hypertension acute Irritable bowel syndrome with constipation acute Peripheral polyneuropathy ac [facility] Work Phone: evaluation note* Diagnosis Onset Date Resolution Status GREYSON (generalized anxiety disorder) acute Hypertension acute Irritable bowel syndrome with constipation acute Acute prostatitis noneactive ASHD (arteriosclerotic heart disease) acute GREYSON (generalized anxiety disorder) acute Hypercholesteremia acute Hypertension acute Irritable bowel syndrome with constipation acute Peripheral polyneuropathy ac [facility] Work Phone: Evaluation note* Diagnosis Onset Date Resolution Status Ascending aortic aneurysm ac [place] ASHD (arteriosclerotic heart disease) acute GREYSON (generalized anxiety disorder) acute Hypercholesteremia acute Hypertension acute Irritable bowel syndrome with constipation acute Peripheral polyneuropathy ac [place] Abdominal pain acute Benign prostatic hyperplasia with lower urinary tract symptoms acute Polyuria acute [facility] Work Phone: Evaluation note* Diagnosis Onset Date Resolution Status Ascending aortic aneurysm ac [place] ASHD (arteriosclerotic heart disease) acute GREYSON (generalized anxiety disorder) acute Hypercholesteremia acute Hypertension acute Irritable bowel syndrome with constipation acute Peripheral polyneuropathy ac [place] Abdominal pain acute Benign prostatic hyperplasia with lower urinary tract symptoms acute Polyuria acute COVID acute [facility] Work Phone: Evaluation note* Diagnosis Onset Date Resolution Status Abdominal pain acute Benign prostatic hyperplasia with lower urinary tract symptoms acute Polyuria acute COVID acute Ascending aortic aneurysm ac [place] ASHD (arteriosclerotic heart disease) acute GREYSON (generalized anxiety disorder) acute Hypercholesteremia acute Hypertension acute Irritable bowel syndrome with constipation acute Peripheral polyneuropathy ac [facility] Work Phone: Evaluation note* Diagnosis Primary open angle glaucoma (POAG) of both eyes, moderate stage (CMS/HCC)- Primary [facility] Diagnosis Primary open angle glaucoma (POAG) of both eyes, moderate stage (CMS/HCC)- Primary Dry eyes Unspecified tear film insufficiency PCO (posterior capsular opacification), bilateral Unspecified after-cataract Blepharitis of upper and lower eyelids of both eyes, unspecified type Diplopia documented [facility] this encounter [facility] Author Bobo Villagomez [facility] March 01, 2023 9:50am Note Date/Time March 01, 2023 9:50 am [facility] [address] [place] [address] Hospitalist H&P Signed Patient: Yonatan Patel MR#: [id number] : 1945 Acct:[id number] Age/Sex: 77 / M Adm Date: 3 Loc: 3T Room: [address] [place] [address] Type: ADM INOo Attending Dr: Bobo Villagomez [...] mentioned elsewhere in the documentation [facility] Medical History Cataract Hypercholesteremia Hypertension Surgical History [...] % (Auto) 23.7 % (.) 03/01/23 07:06 Stevens % (Auto) 8.3 % (.) 03/01/23 07:06 Eos % (Auto) 1.4 % (.) 03/01/23 07:06 Baso % (Auto) 0.7 % (.) 03/01/23 07:06 Nucleat RBC Rel Count 0.3 /100 WBC (0-0.5) 03/01/23 07:06 Neut # (Auto) 3.5 x10E3/uL (1.8-7.7) 03/01/23 07:06 Lymph # (Auto) 1.3 x10E3/uL (1.00-4.8) 03/01/23 07:06 Stevens # (Auto) 0.4 x10E3/uL (0.0-0.8) 03/01/23 07:06 [...] pH 7.5 (5.0-9.0) 03/01/23 07:49 Ur Specific Powers 1.014 (1.001-1.030) 03/01/23 07:49 Urine Protein Negative [...] 09 37 Signed By: <Electronically signed by Boob Villagomez MD> 03/01/[address] [facility] Work Phone: Hiskabf general Narrative - Reported* Type Description Date Medical History hypercholesterolemia Medical History hypertension Medical History anxiety Medical History Esophageal reflux Medical History glaucoma Medical History neuropathy Surgical History heart catheterization Surgical History shoulder surgery Surgical History colonoscopy with polyp resectio n 08/27/21 Surgical History EGD 08/27/21 Hospitalization History see above [facility] Other Hisqiac general Narrative - Reported* Type Description Date Medical History hypercholesterolemia Medical History hypertension Medical History anxiety Medical History Esophageal reflux Medical History glaucoma Medical History neuropathy Surgical History heart catheterization Surgical History shoulder surgery Surgical History colonoscopy with polyp resectio n 08/27/22 Surgical History EGD 08/27/22 Hospitalization History see above [facility] Other Hislqlg general Narrative - Reported* Type Description Date Medical History hypercholesterolemia Medical History hypertension Medical History anxiety Medical History Esophageal reflux Medical History glaucoma Medical History neuropathy Surgical History heart catheterization Surgical History shoulder surgery Surgical History colonoscopy with polyp resectio n 08/27/22 Surgical History EGD 08/27/22 Surgical History Left Inguinal Hernia Repair 08/18 024 Hospitalization History see above [facility] Other Hospital Discharge instructions Additional Instructions DISCHARGE [...] follow up with PCP - Office number [phone]. [facility] Work Phone: Hospital Discharge instructions No data available for this section General Surgery [place] Progress note Author Berhane Trammell [facility] March 02, 2023 3:27pm Note Date/Time March 02, 2023 3:23 pm [facility] [address] [place] [address] Neurology Progress Note Signed Patient: Yonatan Patel MR#: [id number] : 1945 Acct:[id number] Age/Sex: 77 / M Adm Date: 3 Loc: Room: [address] [place] [address] Type: ADM INOo Attending Dr: Angely Lee [...] 130/72 98 Room Air 03/02/23 12:00 03/02/23 12:03/02/23 12:03/02/23 12:03/02/23 12:00 03/02/23 12:00 Neuro Other: Neurological exam: [...] <Electronically signed by MD Berhane Trammell> 03/02/23 0141 [facility] Work Phone: Progress note No data available for this section General Surgery [place] Reason for referral (narrative)* Reason Referral for left in direct inguinal hernia Diagnosis 1 Indirect left inguin al hernia (K40.90) Referral Organization [facility] Abbe sequeira Referring Provider First Name Cisco Referring Provider Last Name Abbe Referring Provider Specialty Internal Dc dicine Referred Organization [facility] Referred Provider Angely Ocampo Referred Address [address] [place], [place],[address] Referred Provider Specialty Surgery Referral Priority Urgent General Notes Mr. Patel has a left indirect inguinal hernia w/ intermittent episodes of increased pain, abdominal distention and nausea. He has experienced 3-4 of these episodes in the past 2 weeks, with increased intensity and duration of pain. A recent episode was associated w/ a transient fever and chills. [facility] Other Reason for visit NarrativeERROR/Gastro referral issue [facility] Other Chief Complaint and Reason for Visit [...] hyperplasia with lower urinary tract symptoms Polyuria Chief Complaint 3 MONTH FOLLOW UP stomach pain cough,congestion Reason for Visit Ascending aortic ane urysm ASHD (arteriosclerotic heart disease) GREYSON (generalized anxiety disorder) Hypercholesteremia Hypertension Irritable bowel syndrome with constipation Peripheral polyneuropathy Abdominal pain Benign prostatic hyperplasia with lower urinary tract symptoms Polyuria COVID Chief Complaint stomach pain cough,congestion 3 month f/u Reason for Visit Abdominal pain Benign prostatic hyperplasia with lower urinary tract symptoms Polyuria COVID Ascending aortic aneurysm ASHD (arteriosclerotic heart disease) GREYSON (generalized anxiety [...] family member Unknown mother Unknown Advance Directives No Advanced Directives Records [...] 2024 Team Status: Active Member Role Status Dates Cisco Nicholson DO Primary Care Provide r, Attending Provider Active Start: March 15, 2024 Team Status: Inactive Member Role Status Dates Cisco Nicholson DO Primary Care Provider Active Start: March 19, 2024 End: March 19, 2024 Rachel Munoz APRN Attending Provider Active S tart: March 19, 2024 End: March 19, 2024 Team Status: Inactive Member Role Status Adriana Nicholson DO Primary Care Provide r, Attending Provider Active Start: May 04, 2024 End: May 04, 2024 Team Status: Active Member Role Status [...] Inactive Member Role Status Adriana Nicholson , Attending Provider Active Sta rt: September 15, [...] November 27, 2023 End: November 27, 2023 [employer] Intern[employer] Relationship Specialty Start Date End Date Cisco Nicholson MD [address] [place] [id number] PCP - General Internal Medicine 04/09/23 [employer] Internship Relationship Specialty Start Date End Date Cisco Nicholson MD [address] [place] [id number] PCP - General Internal Medicine 04/09/23 Editing Internship Relationship Specialty Start Date End Date Cisco Nicholson MD [address] [place] [id number] PCP - General Internal Medicine 04/09/23 (unrecognized sect ion and content) No Status Records FoundNo Status Records FoundNo Status Records FoundNo Status Records FoundNo Status Records FoundNo Status Records Found INFORMATION SOURCE (unrecogn ized section and content) DATE CREATED AUTHOR 09/16/2022 [facility] DATE CREATED AUTHOR AUTHOR'S ORGANIZ ATION 03/05/2023 [facility] DATE CREATED AUTHOR AUTHOR'S ORGANIZ ATION 06/25/2023 [facility] DATE CREATED AUTHOR AUTHOR'S ORGANIZ ATION 08/25/2023 [facility] DATE CREATED AUTHOR AUTHOR'S ORGANIZ ATION 12/15/2023 [facility] DATE CREATED AUTHOR AUTHOR'S ORGANIZ ATION 07/07/2024 [facility] dical Specialists EPIC REASON FOR VISIT (unrecogniz ed section and content) Reason Comments Med Refill Reason Comments Follow-up Glaucoma Goals (unrecognized section and content) Goals may [...] BE BASED ON THE PRIMARY CLINICAL RECORDS. [employer] [facility]. provides no warranty or guarantee of the accuracy or completeness of information in this document.
--- NOTE | 2024-07-12 07:43 | US_ITS ---
[place] [id number] Patient Name: JOSE PATEL MRN: [id number] date: 1945 Sex: M Assigned Patient Location: [facility] Current Patient Location: Accession/Order Number: [id number] Exam Date: 07/12/2024 07:50 Report Date: 07/13/2024 06:18 At the request of: TOAN MCADAMS Procedure: US venous doppler LE BI EXAMINATION: US venous doppler LE BI HISTORY: Swelling of both lower extremities COMPARISON: No relevant comparison available. FINDINGS: REGION: Bilateral extremities THROMBI: None. COMPRESSIBILITY: Normal compressibility. FLOW: Normal waveform and antegrade flow between 5 and 20 cm/s. OTHER: None. US/US venous doppler LE BI IMPRESSION: 1. No deep vein thrombus within the right or left lower extremity. Electronically authenticated by: BERHANE HERNANDEZ Date: 07/13/2024 06:18
== END 2024-07-12 07:29 | disposition home or self-care (01) ==
LOC: RAD 07:33
PROVIDERS: PCP Internal Medicine; Visit Provider Internal Medicine
DX: M79.89 Other specified soft tissue disorders (principal)
CPT/HCPCS: 93970

== ENCOUNTER 2024-09-02 07:05 | Outpatient (OUT) | payer MEDICARE, SELFPAY ==
--- OUTSIDE RECORDS SUMMARY | 2024-09-02 07:08 | XMS_ITS | CCD ---
Author Organization [facility] [employer] Care Team Providers Care Carpet Finishing Supervisor Name Role Phone MD Alek Oliva Attending Provider DO Cisco Mcadams Primary Care Provider [phone] MIGUEL ANGEL JACOBSEN Attending Unavailable ANN-MARIE, MIGUEL ANGEL Admitting Unavailable MIGUEL ANGEL JACOBSEN Consulting Unavailable ABBE, DR JOYA Primary Care [...] Unavailable ZIZINA, DR BERHANE Garcia Consulting Unavailable BERTT, FABRICE Consulting Unavailable MAU, MICHAEL Consulting Unavailable [...] Desai Unavailable MD Maryjane Christensen Attending Provider [phone] Cisco Mcadams Primary Care Dr. Cisco Ivey Primary Care DO Cisco Ivey Primary Care Provider DO Alejo Lynn Emergency Provider MD Bobo Villagomez Admit Provider MD Bobo Villagomez Attending Provider [phone] MD Berhane Trammell Other Provider DO Cisco Mcadams Primary Care Provider MD Sandoval Palacios Jr Emergency Provider MD Warren Quiroz Admit Provider MD Warren Quiroz Attending Provider Cisco Mcadams Primary [facility] Unavailable Asaad, Imad Admitting Unavailable Asamallory, Imad Attending Unavailable Cisco Mcadams Primary Care Unavailable Angely Lee Attending Unavailable Bobo Villagomez Admitting Unavailable Berhane Trammell Consulting Unavailable Berhane Trammell Consulting Unavailable Cisco Mcadams Primary Care Unavailable Warren Quiroz Admitting Unavailable Mariya Petersena Attending Unavailable Cisco Mcadams Primary Care Unavailable Dandre Olivan Admitting Unavailable Dandre Olivan Attending Unavailable CISCO MCADAMS Primary Care Physician Angely GAGE Attending Unavailable Angely GAGE Attending Unavailable CISCO MCADAMS Referring Unavailable ZEV CHAVEZ Attending Unavailable Cisco Mcadams MD Primary Care Provider MIGUEL ANGEL JACOBSEN Attending Unavailable MIGUEL ANGEL JACOBSEN Attending Unavailable APLINGCHEYANNE Attending Unavailable APLCHEYANNE ESPINOSA B Referring Unavailable MIGUEL ANGEL JACOBSEN Attending Unavailable MIGUEL ANGEL JACOBSEN Attending Unavailable Allergies Allergy Classification Reported Allergen(s) Allergy Type Date of Onset Reaction(s) Facility (13 sources) Ritonavir; Translations: [ritonavir] Drug Allergy 3 [facility] (13 sources) nirmatrelvir; Translations: [nirmatrelvir] Propensity to adverse reactions 3 [facility] (1 source) No Known Medication Allergies; Translations: [No Known Medication Allergies] Propensity to adverse reactions (disorder) [facility] Repository Medications Current Medications Medication Drug Class(es) Dates Sig (Normalized) Sig (Original) aspirin 81 mg delayed release oral tablet (20 sources) Platelet Aggregation Inhibitor, Nonsteroidal Anti-inflammatory Drug Start: 03-01-2023 take 1 tablet by mouth once daily Aspirin 81 mg Tablet,Delayed Release (Dr/Ec) Active 81 MG PO Daily February 28, 2023 11:00pm take 1 tablet by mouth once isamar y aspirin 81 MG chewable tablet Chew 1 tablet every day by oral route. Active Baby Aspirin Act karen atorvastatin 80 mg oral tablet (20 sources) HMG-CoA Reductase Inhibitor Start: 08-04-2022 take 1 tablet by mouth once daily Atorvastatin 80 mg tablet Active 80 MG PO Daily August 25, 2022 12:00am Atorvastatin Sandor cium Active bimatoprost 0.1 mg/ml ophthalmic solution (20 sources) Prostaglandin Analog Start: 03-01-2023 take 0.01 drop(s) into the eye(s) once daily Bimatoprost 0.01 % Drops Active 1 DROPS EYE-BOTH Daily February 28, 2023 11:00pm Start: 03-01-2023 take 1 drop(s) into the [...] Active brimonidine tartrate 2 mg/ml ophthalmic solution (4 sources) alpha-Adrenergic Agonist brimonidine (AlphaGAN P) 0.2 % ophthalmic solution every 12 (twelve) hours Active brimonidine tartrate 2 mg/ml / brinzolamide 10 mg/ml ophthalmic suspension (18 sources) Carbonic Anhydrase Inhibitor, alpha-Adrenergic Agonist Start: 07-28-2024 End: 10-26-2024 take 1 drop(s) into the eye(s) in the morning Brinzolamide-Brimo nidine (Simbrinza) 1-0.2 % suspension Indications: Primary open angle glaucoma (POAG) of both eyes, moderate stage (CMS/HCC) Administer 1 drop into both eyes in the morning and 1 drop before bedtime. 16 mL 3 07/28/2024 10/26/2024 Active Start: 06-13-2024 End: 07-28-2024 take 1 drop(s) into the eye(s) twice daily Simbrinza 1-0.2 % suspension Indications: Primary open angle glaucoma (POAG) of both eyes, moderate stage (CMS/HCC) INSTILL 1 DROP INTO BOTH EYES TWICE DAILY DIRECTED 16 mL 5 06/13/2024 07/28/2024 Discontinued (Reorder) Start: 07-28-2023 take 1 drop(s) into the eye(s) twice daily Simbrinza 0.2%-1% ophthalmic suspension 1 drop(s), Eye-Both, BID, Refill(s) 0 Start Date: 07/28/23 Status: Ordered Start: 03-01-2023 take 1 drop(s) into the eye(s) twice daily Brinzolamide-Brimonidine 1-0.2 % Drops,Suspension Active 1 DROPS EYE-BOTH Twice daily February 28, 2023 11:00pm End: 06-13-2024 Simbrinza 1-0.2 % suspension 06/13/2024 Discontinued brinzolamide (20 sources) Carbonic Anhydrase Inhibitor Brinzolamide Active busPIRone hydrochloride 15 mg oral tablet (20 sources) Start: take 1 tablet by mouth twice daily Buspirone 15 mg tablet Active 0 .ROUTE .COMPLEX 180 April 27, 2024 6:33am TAKE 1 TABLET BY MOUTH TWICE DAILY Start: 08-25-2022 End: 04-27-2024 take 1 tablet by mouth twice daily Buspirone 15 mg tablet Discontinued 15 MG PO Twice daily 180 90 November 27, 2023 8:10am April 27, 2024 6:33am Start: 08-25-2022 End: 03-01-2023 take 1 tablet by mouth once daily Buspirone 15 mg Tablet Discontinued 15 MG PO Daily August 25, 2022 12:00am March 01, 2023 8:05am busPIRone HCl Ac tive cephalexin 500 mg oral capsule (20 sources) Cephalosporin Antibacterial Start: 11-21-2022 take 1 capsule by mouth twice daily Cephalexin 500 MG 1 capsule Orally twice daily for 5 days Nov, Active Start: 03-19-2019 take 1 capsule by mo uth every eight hours Cephalexin 500 MG 1 capsule Orally tid for 5 day(s) Mar, Active ferrous sulfate (4 sources) take 1 tablet by mouth in the morning Ferrous Sulfate (IRON PO) Take 1 tablet by mouth in the morning. Active gabapentin 300 mg oral capsule (20 sources) Anti-epileptic Agent Start: 07-28-2024 take 1 capsule by mouth four times daily Gabapentin 300 mg capsule Active 0 .ROUTE .COMPLEX 360 July 28, 2024 10:30am TAKE 1 CAPSULE BY MOUTH 4 TIMES DAILY Start: 08-25-2022 End: 03-02-2023 take 1 capsule by mouth three times daily Gabapentin 300 mg capsule Discontinued 300 MG PO Three times daily August 25, 2022 12:00am March 02, 2023 4:25pm Start: 08-04-2022 End: 07-28-2024 take 1 capsule by mouth four times daily Gabapentin 300 mg capsule Discontinued 300 MG PO Four times daily 40 10 March 02, 2023 4:25pm July 28, 2024 10:30am Gabapentin Activ e irbesartan (20 sources) Angiotensin 2 Receptor Zachary Irbesartan Active latanoprost 0.05 mg/ml ophthalmic solution (18 sources) Prostaglandin Analog Start: take 1 drop(s) into the eye(s) once daily latanoprost (Xalatan) 0.005 % ophthalmic solution 1 drop into each eye Ophthalmic Once a day at night 07/28/2023 Active Start: 07-28-2023 latanoprost Op th 0.005% Nisa 1 drop(s), OPTH, Once a day (at bedtime), 2.5 mL, Refill(s) 0 Start Date: 07/28/23 Status: Ordered Start: 08-25-2022 End: 03-01-2023 Latanoprost 0.005 % drops Di scontinued 1 DROPS EYE-BOTH As Directed August 25, 2022 12:00am March 01, 2023 8:05am Start: 08-25-2022 End: 03-01-2023 Latanoprost Discontinued 1 D ROPS EYE-BOTH As Directed August 25, 2022 1:00am March 01, 2023 9:05am metoprolol tartrate 25 mg oral tablet (20 sources) beta-Adrenergic Zachary Start: 12-15-2023 End: 07-11-2024 Metoprolol Tartrate 25 mg tablet Active 12.5 MG PO Twice daily July 11, 2024 12:00am Start: 12-15-2023 take 12.5 mg by mout h twice daily Metoprolol Tartrate Active 12.5 MG PO Twice daily December 15, 2023 1:42pm Start: 10-20-2022 take 0.5 tablet by m outh twice daily metoprolol tartrate (Lopressor) 25 MG tablet TAKE ONE-HALF TABLET BY MOUTH TWICE DAILY 10/20/2022 Active Start: 08-25-2022 End: 12-15-2023 take 1 tablet by mouth once daily Metoprolol Tartrate 25 mg tablet Discontinued 25 MG PO Daily August 25, 2022 12:00am December 15, 2023 5:07pm Start: 08-18-2022 take 1 tablet by kelly [...] TAB PO Daily March 01, 2023 12:00am Multivitamin Tablet (1 source) Start: 03-01-2023 take 1 tablet by mouth once daily Multivitamin Tablet Active 1 TAB PO Daily February 28, 2023 11:00pm pantoprazole 40 mg delayed release oral tablet (20 sources) Proton Pump Inhibitor Start: 09-03-2022 take 1 tablet by mouth twice daily Pantoprazole Sodium 40 MG 1 tablet Orally twice daily Aug, Active Start: 08-27-2022 take 1 tablet by kelly th once daily Pantoprazole 40 mg Tablet,Delayed Release (Dr/Ec) Active 40 MG PO Daily February 28, 2023 11:00pm paxlovid (300/100) 20 x 150 mg & 10 x 100mg tablet therapy pack (8 sources) take 3 tablets by mouth every twelve hours Paxlovid (300/100) 20 x 150 MG & 10 x 100MG 3 tablets Orally Twice a day for 5 days Active Paxlovid, 300/100, 20 x 150 MG & 10 x 100MG tablet therapy pack (4 sources) Start: 06-18-20 take 3 tablets by mouth twice daily Paxlovid, 300/100, 20 x 150 MG & 10 x 100MG tablet therapy pack TAKE 3 TABLETS BY MOUTH TWICE A DAY FOR 5 DAYS 06/18/2023 Active Ranitidine & Diet Manage Prod (20 sources) Ranitidine & t Manage Prod Active tetracycline hydrochloride 500 mg oral capsule (20 sources) Tetracycline-class Antimicrobial Start: 09-03-19 take 1 capsule by mouth four times [...] (20 sources) Start: 10-27-2023 End: 03-19-2024 Bacitracin 500 unit/gram ointment Discontinued 1 APPLIC OPHTHALMIC Daily October 26, 2023 11:00pm March 19, 2024 8:19am Start: 03-19-2019 Bacitracin 500 UNIT/GM 1 application Ophthalmic Once a day for 14 days Mar, Active Bacitracin 500 UNIT/GM (20 sources) Start: 03-19-2019 Bacitracin 500 UNIT/GM 1 application Ophthalmic Once a day for 14 days Mar, Not-Taking Start: 03-19-2019 Bacitracin 500 UNIT/GM 1 application Ophthalmic Once a day for 14 days Mar, Active escitalopram 5 mg oral tablet (15 sources) Serotonin Reuptake Inhibitor Start: 11-10-2023 End: 01-28-2024 take 2 tablets by mouth once daily Escitalopram Oxalate 5 mg tablet Discontinued 5 MG PO Daily November 09, 2023 11:00pm January 28, 2024 8:06am Take daily w/ 10mg dose Start: 11-10-2023 End: 01-28-2024 take 10 mg by mouth once daily Escitalopram Oxalate Di scontinued 5 MG PO Daily November 10, 2023 12:00am January 28, 2024 9:06am Take daily w/ 10mg dose Start: 10-14-2023 End: 01-28-2024 take 1 tablet by mouth once daily Escitalopram Oxalate 10 mg tablet Discontinued 10 MG PO Daily October 14, 2023 12:00am January 28, 2024 8:06am Start: 09-17-2023 take 1 tablet by kelly th once at bedtime Escitalopram Oxalate 5 MG 1 tablet Orally q HS for 30 days Sep, Active metroNIDAZOLE 250 mg oral tablet (20 sources) Nitroimidazole Antimicrobial Start: 09-03-2022 End: 03-02-2023 take 1 tablet by mouth four times daily Metronidazole 250 mg Tablet Discontinued 250 MG PO Four times daily February 28, 2023 11:00pm March 02, 2023 4:23pm Nirmatrelvir-Ritona vir (8 sources) Start: 06-20-2023 End: 06-22-2023 Nirmatrelvir-Riton avir (Paxlovid) 300 mg (150 mg x 2)-100 mg tablets,dose pack Discontinued TAB PO June 19, 2023 11:00pm June 22, 2023 6:00pm Start: 06-20-2023 End: 06-22-2023 Nirmatrelvir-Ritonavir (Paxl ovid) 300 mg (150 mg x 2)-100 mg tablets,dose pack Discontinued TAB PO June 20, 2023 12:00am June 22, 2023 7:00pm Start: 06-20-2023 Nirmatrelvir-R itonavir (Paxlovid) 300 mg (150 mg x 2)-100 mg tablets,dose pack Active TAB PO June 20, 2023 12:00am sulfamethoxazole 800 mg / trimethoprim 160 mg oral tablet (7 sources) Dihydrofolate Reductase Inhibitor Antibacterial, Sulfonamide Antimicrobial Start: 11-06-2023 End: 03-19-2024 take 1 tablet by mouth twice daily Sulfamethoxazole-Trimethoprim 800-160 mg tablet Discontinued 1 TAB PO Twice daily 14 7 November 05, 2023 11:00pm March 19, 2024 8:20am temazepam 15 mg oral capsule (20 sources) Benzodiazepine Start: 08-19-2022 End: 04-27-2024 take 1 capsule by mouth at bedtime Temazepam 15 mg capsule Discontinued 15 MG PO Bedtime 90 90 October 05, 2023 12:52pm April 27, 2024 6:33am Temazepam Active Problems Active Problems Problem Classification Problem Date Documented Da te Episodic/Chronic Abdominal hernia (7 sources) Unilateral inguinal hernia, without obstruction or gangrene, not specified as recurrent; Translations: [Inguinal hernia] Onset: 07-28-2023 Episodic Abdominal pain (9 sources) Right lower quadrant pain; Translations: [Abdominal pain] Episodic Anxiety disorders (20 sources) Generalized anxiety disorder; Translations: [Generalized anxiety disorder] Chronic Aortic; peripheral; and visceral artery aneurysms (9 sources) Aneurysm of ascending aorta; Translations: [Ascending aortic aneurysm] 12-31-2023 Chronic Comment on above: Echo: 4.2cm - 12/2023 Biliary tract disease (20 sources) Cholelithiasis without obstruction; Translations: [Calculus of gallbladder without cholecystitis without obstruction] Episodic Cataract (9 sources) Age-related nuclear cataract, right eye; Translations: [After-cataract of bilateral eyes] Onset: 03-20-2022 Chronic Chronic obstructive pulmonary disease and bronchiectasis (4 sources) Emphysema, unspecified; Translations: [Pulmonary emphysema] Onset: 07-02-2022 07-14-2023 Chronic Conditions associated with dizziness or vertigo (4 sources) Dizziness and giddiness; Translations: [DIZZINESS AND GIDDINESS] Onset: 09-14-2022 Episodic Coronary atherosclerosis and other heart disease (12 sources) Coronary arteriosclerosis; Translations: [Atherosclerotic heart disease of havasupai coronary artery without angina pectoris] 11-27-2023 Chronic Comment on above: Echo: LVEF 60%, LITZY - 12/2023 Crushing injury or internal injury (1 source) Traumatic pneumothorax, initial encounter; Translations: [TRAUMATIC PNEUMOTHORAX INITIAL ENC] Onset: 07-01-2022 Episodic Disorders of lipid metabolism (20 sources) Pure hypercholesterolemia, unspecified; Translations: [Familial hypercholesterolemia] Onset: 08-02-2022 Chronic E Codes: Adverse effects of medical drugs (10 sources) Adverse reaction to drug; Translations: [Adverse effect of unspecified drugs, medicaments and biological substances, initial encounter] Onset: 06-20-2023 06-20-2023 Episodic Comment on above: Problem List clean-u p per request of Phys. EHR Cmte E Codes: Fall (2 sources) Fall in [...] 09-16-2022 Chronic Genitourinary symptoms and ill-defined conditions (7 sources) Polyuria; Translations: [Polyuria] 03-14-2024 Episodic Glaucoma (18 sources) Primary open-angle glaucoma, right eye, moderate stage; Translations: [Glaucoma] Onset: 03-25-2022 07-14-2023 Chronic Hyperplasia of prostate (7 sources) Benign prostatic hyperplasia; Translations: [Benign prostatic [...] 03-28-2022 Episodic Other aftercare (1 source) Other long-term (current) drug therapy; Translations: [OTH CUSTODIAL CURRENT DRUG THERAPY] Onset: 09-16-2022 Episodic Other aftercare (1 source) correction (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; Translations: [CUSTODIAL CURRENT USE OF ASPIRIN] Onset: 09-16-2022 Episodic Other and ill-defined cerebrovascular disease (16 sources) Cerebral atherosclerosis; Translations: [Cerebral atherosclerosis] 10-27-2023 Chronic Other and ill-defined cerebrovascular disease (3 sources) Cerebral atherosclerosis Chronic Other and unspecified benign neoplasm (20 sources) Adenomatous polyp of colon ; Translations: [Benign neoplasm of descending colon] 07-14-2023 Episodic Other connective tissue disease (9 sources) Pain in lower limb; Translations: [Pain in right leg] 03-01-2023 Episodic Comment on above: Problem List clean-u p per request of Phys. EHR Cmte Other connective tissue disease (1 source) Swelling of bilateral lower limbs; Translations: [Other specified soft tissue disorders] 07-11-2024 Episodic Other connective tissue disease (1 source) Other specified soft tissue disorders; Translations: [Swelling of limb] 07-11-2024 Episodic Other diseases of veins and lymphatics (1 source) Venous insufficiency of leg; Translations: [Venous insufficiency (chronic) (peripheral)] 07-11-2024 Episodic Other diseases of veins and lymphatics (2 sources) Venous insufficiency (chronic) (peripheral); Translations: [Venous (peripheral) insufficiency, unspecified] 07-11-2024 Episodic Other fractures (1 source) Multiple fractures [...] with constipation] 07-14-2023 Chronic Other gastrointestinal disorders (9 sources) Irritable bowel syndrome with constipation; Translations: [Irritable bowel syndrome] Chronic Other hereditary and degenerative nervous system conditions (15 sources) Impaired cognition; Translations: [Mild cognitive impairment, so stated] Chronic Other hereditary and degenerative nervous system conditions (11 sources) Mild cognitive impairment, so stated; Translations: [...] Onset: 06-20-2023 Chronic Other nervous system disorders (11 sources) Neuropathy; Translations: [Polyneuropathy, unspecified] Onset: 06-20-2023 06-20-2023 Chronic Other nervous system disorders (9 sources) Metabolic encephalopathy; Translations: [Metabolic encephalopathy] Chronic Other nervous system disorders (1 source) Metabolic encephalopathy Chronic Other nervous system disorders (10 sources) Disorder of brain; Translations: [Encephalopathy, unspecified] 07-14-2023 Chronic Comment on above: Problem List clean-u p per request of Phys. EHR Cmte Other nervous system disorders (1 source) Carpal tunnel syndrome of left wrist; Translations: [Carpal tunnel syndrome, left upper limb] 07-11-2024 Chronic Other nervous system disorders (1 source) Carpal tunnel syndrome, left upper limb; Translations: [Carpal tunnel syndrome] 07-11-2024 Chronic Other nervous system disorders (4 sources) Other disturbances of skin sensation; Translations: [OTHER DISTURBANCES SKIN SENSATION] Onset: 07-28-2022 Episodic Other nervous system disorders (9 sources) Numbness of hand; Translations: [Anesthesia of skin] 03-01-2023 Episodic Comment on above: Problem List clean-u p per request of Phys. EHR Cmte Other nervous system disorders (1 source) Unsteadiness [...] conditions (not mental disorders or infectious disease) (8 sources) Encounter for screening for malignant neoplasm of prostate; Translations: [Patient encounter status] Onset: 08-02-2022 Episodic Pleurisy; pneumothorax; pulmonary collapse (1 source) Pleural effusion, not elsewhere classified; Translations: [PLEURAL EFFUSION NEC] Onset: 07-02-2022 Episodic Residual codes; unclassified (1 source) Disorientation, unspecified Episodic Residual codes; unclassified (8 sources) Altered mental status; Translations: [Altered mental [...] 2 (SARS-CoV-2) detected] Onset: 06-20-2023 06-20-2023 Episodic Comment on above: Problem List clean-u p per request of Phys. EHR Cmte Past or Other Problems Problem Classification Problem Date Documented Da te Episodic/Chronic Blindness and vision defects (20 sources) Other visual disturbances; Translations: [Visual hallucinations] Onset: 08-02-2022 Episodic E Codes: Cut/pierceb (1 source) Contact with other sharp object(s), not elsewhere classified, initial encounter; Translations: [[facility] OTH SHRP OB NOT ELSW CLASS INI] Onset: 04-01-2022 Episodic Esophageal disorders (6 sources) Esophageal disorders Immunizations and screening for infectious disease (1 source) Encounter for immunization; Translations: [ENCOUNTER FOR IMMUNIZATION] Onset: 04-01-2022 Episodic Inflammation; infection of eye (except that caused by tuberculosis or sexually transmitteddisease) (5 sources) Blepharitis of upper and lower eyelids of bilateral eyes; Translations: [Unspecified blepharitis right eye, upper and lower eyelids] Onset: 04-10-2023 04-10-2023 Episodic Other connective tissue disease (2 sources) Pain in right leg; Translations: [Pain in limb] Onset: 03-01-2023 03-01-2023 Episodic Other connective tissue disease (1 source) Pain in left leg; Translations: [Pain in left leg] Onset: 03-01-2023 Episodic Other eye disorders (5 sources) Dry eyes; Translations: [Dry eye syndrome of bilateral lacrimal glands] Onset: 04-10-2023 04-10-2023 Episodic Other gastrointestinal disorders (5 sources) Change [...] Interpretation Reference Range Facility Perimetry studyon 07-05-2024 [facility] Study observation (narrative) [facility] Influenza virus B Ag [Presen ce] in Upper respiratory specimen by Rapid immunoassayon 03-19-2024 FLUBV Ag IA.rapid Ql (Nph) Negative [facility] No Panel Informationon 03-19 Influenza Type A (Rapid) Negative [facility] POC SARS CoV-2 Antigen Positive [facility] Basophils Auto (Bld) [#/Vol] on 03-15-2024 Basophils (Bld) [#/Vol] 0.0 10 3/uL 0.0-0.1 [facility] Basophils/100 WBC Auto (Bld) on 03-15-2024 Basophils/100 WBC (Bld) 0.6 % 0.2-2.0 [facility] Eosinophils/100 WBC Auto (Bl d)on 03-15-2024 Eosinophils/100 WBC (Bld) 0.9 % 0.9-7.0 [facility] Erythrocyte distribution wid th Auto (RBC) [Ratio]on 03-15-2024 Erythrocyte distribution width (RBC) [Ratio] 14.3 % 11.0-15.0 [facility] Hematocrit Auto (Bld) [Volum e fraction]on 03-15-2024 Hematocrit (Bld) [Volume fraction] 44.2 % 42.0-54.0 [facility] Hemoglobin [Mass/volume] in Bloodon 03-15-2024 Hemoglobin (Bld) [Mass/Vol] 14.7 g/dL 14.0-18.0 [facility] Laboratory - Chemistry and C hemistry - challengeon 03-15-2024 Bilirubin Ql (U) Negative NEGATIVE [facility] Glucose (U) [Mass/Vol] Negative NEGATIVE [facility] Ketones Ql (U) Negative NEGATIVE [facility] pH (U) 6.5 [pH] 5.0-9.0 [facility] Specific gravity (U) [Rel density] 1.020 1.005-1.02 5 [facility] Urobilinogen Qn (U) 0.2 {[place]'U}/dL 0.2-1.0 [facility] Laboratory - Hematology and Cell countson 03-15-2024 ESR (Bld) [Velocity] 11 mm/h <=[address] [facility] Immature granulocytes/100 WBC (Bld) 0.5 % 0.0-0.5 [facility] - Specimen inform ationon 03-15-2024 Appearance (U) CLEAR CLEAR [facility] Color (U) YELLOW YELLOW [facility] Laboratory - Urinalysison Leukocyte esterase Test strip Ql (U) Negative NEGATIVE [facility] Mucus Ql (Urine sed) TRACE Abnormal NONE SEEN [facility] Nitrite Ql (U) Negative NEGATIVE [facility] Protein Ql (U) Negative NEG/TRACE [facility] Leukocytes [#/volume] correc airam for nucleated erythrocytes in Blood by Automated counon 03-15-2024 WBC corrected for nucl RBC Auto (Bld) [#/Vol] 6.5 10 3/uL 4.0-11.0 [facility] Lymphocytes Auto (Bld) [#/Vo l]on 03-15-2024 Lymphocytes (Bld) [#/Vol] 1.3 10 3/uL 1.2-3.8 [facility] Lymphocytes/100 WBC Auto (Bl d)on 03-15-2024 Lymphocytes/100 WBC (Bld) 19.8 % Low 20.5-60.0 [facility] MCH Auto (RBC) [Entitic mass ]on 03-15-2024 MCH (RBC) [Entitic mass] 30.2 pg 25.9-34.0 [facility] MCHC Auto (RBC) [Mass/Vol]on 03-15-2024 MCHC (RBC) [Mass/Vol] 33.3 g/dL 29.9-35.2 [facility] MCV Auto (RBC) [Entitic vol] on 03-15-2024 MCV (RBC) [Entitic vol] 90.8 fL 80.0-94.0 [facility] Monocytes Auto (Bld) [#/Vol] on 03-15-2024 Monocytes (Bld) [#/Vol] 0.6 10 3/uL 0.3-0.8 [facility] Monocytes/100 WBC Auto (Bld) on 03-15-2024 Monocytes/100 WBC (Bld) 9.9 % 1.7-12.0 [facility] Neutrophils Auto (Bld) [#/Vo l]on 03-15-2024 Neutrophils (Bld) [#/Vol] 4.4 10 3/uL 1.4-6.5 [facility] Neutrophils/100 WBC Auto (Bl d)on 03-15-2024 Neutrophils/100 WBC (Bld) 68.3 % 43.0-75.0 [facility] No Panel Informationon 03-15 Urine Bacteria NONE SEEN #/HPF NONE SEEN [facility] Urine Occult Blood Negative NEGATIVE [facility] Urine Other Casts NONE SEEN #/LPF NONE SEEN [facility] Urine Other Crystals None Seen #/HPF None Seen [facility] Urine RBC 0-2 #/HPF 0-2 [facility] Urine Squamous Epithelial Cells NONE SEEN #/LPF NONE/RARE [facility] Urine WBC 0-2 #/HPF Abnormal NONE SEEN [facility] Eosinophils # (Auto) 0.1 10 3/uL 0.0-0.7 [facility] Immature Granulocyte # (Auto) 0.03 10 3/uL 0.00-0.03 [facility] Platelet mean volume Auto (B ld) [Entitic vol]on 03-15-2024 Platelet mean volume (Bld) [Entitic vol] 10.0 fL 9.5-13.5 [facility] Platelets Auto (Bld) [#/Vol] on 03-15-2024 Platelets (Bld) [#/Vol] 169 10 3/uL 150-450 [facility] RBC Auto (Bld) [#/Vol]on RBC (Bld) [#/Vol] 4.87 10 6/uL 4.70-6.10 [facility] No Panel Informationon 01-21 Prostate Specific Antigen Screen 1.33 ng/mL <=4.00 [facility] Office Visiton 12-14-2023 Follow-up visit [id number] Yonatan Patel 1945 M Date Provider Department Center 12/14/2023 [id number] CHAVEZ CARD [facility] Family History Problem Relation Age of Onset Heart attack Father Heart attack Brother Family Status - Relation Status Age at Father Brother Level of Service:13662 [place] OFFICE/OUTPATIENT ESTABLISHED LOW MDM 20 MIN Normal [facility] Estimated glomerular filtrat ion rate (GFR) non- Americanon 11-16-2023 GFR/1.73 sq M.predicted among non-blacks MDRD (S/P/Bld) [Vol rate/Area] mL/min/{1.73_m2} >=60 [facility] Laboratory - Chemistry and C hemistry - challengeon 11-16-2023 Calcium [Mass/Vol] 9.6 mg/dL 8.5-10.[address] [facility] Chloride [Moles/Vol] 105 mmol/L 98-[address] [facility] CO2 [Moles/Vol] 23.8 mmol/L 21.0-32.0 [facility] Creatinine [Mass/Vol] 1.02 mg/dL 0.70-1.30 [facility] GFR/1.73 sq M.predicted MDRD (S/P/Bld) [Vol rate/Area] mL/min/{1.73_m2} >=60 [facility] Glucose [Mass/Vol] 96 mg/dL 74-[address] [facility] Potassium [Moles/Vol] 4.0 mmol/L 3.5-5.1 [facility] Sodium [Moles/Vol] 140 mmol/L 136-[address] [facility] Urea nitrogen [Mass/Vol] 15.0 mg/dL 7.0-18.0 [facility] Urea nitrogen/Creatinine [Mass ratio] 14.7 mg/mg [facility] Serum or plasma anion gap de terminationon 11-16-2023 Anion gap [Moles/Vol] 15.2 mmol/L [facility] Operative Reporton Operative Report [id number]#1.00TIFF Normal [facility] RAD - MISCon 08-07-2023 RAD - MISC [id number]#1.00TIFF Normal [facility] Consent for Procedure/Surger yon 07-29-2023 Consent for Procedure/Surgery [id number]#1.00TIFF Normal [facility] Facesheeton 07-29-2023 Facesheet [id number]#1.00TIFF Normal [facility] Ambulatory Visit Summaryon 1 09-28-2022 Ambulatory Visit Summary YONATAN PATEL :1945 Visit Date:07/28/2023 Ambulatory Visit Instructions Your Care Team Attending Physician - TOO TEJADA, Angely Garcia Primary Care Physician - ABBE GOMEZ, CISCO Referring Physician - CISCO MCADAMS DO This [...] you for choosing us for your care. [facility] Ambulatory Visit Summary YONATAN PATEL [...] for choosing us for your care. Normal [facility] Physician Referralon 023 Physician Referral [id number]#1.00TIFF Normal [facility] Basic Metabolic Panelon 11-0 Anion gap [Moles/Vol] 10.4 mmol/L Normal 6.0-15.0 [facility] Comment on above: Order Comment: FASTI NG Y Performed By: #### H S TROP, CMP, CK, CBC #### [facility] [address] Calcium [Mass/Vol] 9.4 mg/dL Normal 8.6-10.[address] [facility] Comment on above: Order Comment: FASTI NG Y Performed By: #### H S TROP, CMP, CK, CBC #### [facility] [address] Chloride [Moles/Vol] 106 mmol/L Normal 98-[address] [facility] Comment on above: Order Comment: FASTI NG Y Performed By: #### H S TROP, CMP, CK, CBC #### [facility] [address] CO2 [Moles/Vol] 28.8 mmol/L Normal 21.0-31.0 [facility] Comment on above: Order Comment: FASTI NG Y Performed By: #### H S TROP, CMP, CK, CBC #### [facility] [address] Creatinine [Mass/Vol] 0.78 mg/dL Normal 0.70-1.30 [facility] Comment on above: Order Comment: FASTI NG Y Performed By: #### H S TROP, CMP, CK, CBC #### [facility] [address] [place] [address] [place] Creatinine Clr Calc Pharmacy 81.46 [facility] Comment on above: Order Comment: FASTI NG Y Performed By: #### H S TROP, CMP, CK, CBC #### [facility] [address] [place] [address] [place] GFR/1.73 sq M.predicted MDRD (S/P/Bld) [Vol rate/Area] mL/min/{1.73_m2} Normal [facility] Comment on above: Order Comment: FASTI NG Y Performed By: #### H S TROP, CMP, CK, CBC #### [address] Glucose [Mass/Vol] 99 mg/dL Normal 70-[address] [facility] Comment on above: Order Comment: FASTI NG Y Result Comment: [place] Glucose Reference Range is dependent on time and content of last meal. Glucose of more than 200 mg/dL in a nonstressed, ambulatory subject supports the diagnosis of Diabetes Mellitus. ADA recommended reference range Performed By: #### H S TROP, CMP, CK, CBC #### [address] Potassium [Moles/Vol] 4.2 mmol/L Normal 3.5-5.1 [facility] Comment on above: Order Comment: FASTI NG Y Performed By: #### H S TROP, CMP, CK, CBC #### [address] Sodium [Moles/Vol] 141 mmol/L Normal 136-[address] [facility] Comment on above: Order Comment: FASTI NG Y Performed By: #### H S TROP, CMP, CK, CBC #### [address] Urea nitrogen [Mass/Vol] 16 mg/dL Normal 7-25 [facility] Comment on above: Order Comment: FASTI NG Y Performed By: #### H S TROP, CMP, CK, CBC #### [address] Complete Blood Count Auto Di ffon 06-22-2023 Basophils (Bld) [#/Vol] 0.0 10*3/uL Normal 0.0-0.2 [facility] Comment on above: Result Comment: PERF ORMED BY: [place] [address] PATHOLOGIST [employer]ENT HARRY MARTI M.D. Performed By: #### L IPID, [id number], PT, CBC, HEPATIC, BMP, PTT, TSH3, MG #### [address] Basophils/100 WBC (Bld) 0.4 % Normal . [facility] Comment on above: Performed By: #### L IPID, [id number], PT, CBC, HEPATIC, BMP, PTT, TSH3, MG #### [address] Eosinophils (Bld) [#/Vol] 0.1 10*3/uL Normal 0.0-0.45 [facility] Comment on above: Performed By: #### L IPID, [id number], PT, CBC, HEPATIC, BMP, PTT, TSH3, MG #### [address] Eosinophils/100 WBC (Bld) 1.2 % Normal . [facility] Comment on above: Performed By: #### L IPID, [id number], PT, CBC, HEPATIC, BMP, PTT, TSH3, MG #### [address] Erythrocyte distribution width (RBC) [Ratio] 15.2 % High 12.0-14.8 [facility] Comment on above: Performed By: #### L IPID, [id number], PT, CBC, HEPATIC, BMP, PTT, TSH3, MG #### [address] Hematocrit (Bld) [Volume fraction] 40.0 % Normal 38.8-50.0 [facility] Comment on above: Performed By: #### L IPID, [id number], PT, CBC, HEPATIC, BMP, PTT, TSH3, MG #### [address] Hemoglobin (Bld) [Mass/Vol] 13.6 g/dL Normal 13.0-17.0 [facility] Comment on above: Performed By: #### L IPID, [id number], PT, CBC, HEPATIC, BMP, PTT, TSH3, MG #### [address] Lymphocytes (Bld) [#/Vol] 1.5 10*3/uL Normal 1.00-4.8 [facility] Comment on above: Performed By: #### L IPID, [id number], PT, CBC, HEPATIC, BMP, PTT, TSH3, MG #### [address] Lymphocytes/100 WBC (Bld) 35.5 % Normal . [facility] Comment on above: Performed By: #### L IPID, [id number], PT, CBC, HEPATIC, BMP, PTT, TSH3, MG #### [address] MCH (RBC) [Entitic mass] 29.4 pg Normal 27.5-35.2 [facility] Comment on above: Performed By: #### L IPID, [id number], PT, CBC, HEPATIC, BMP, PTT, TSH3, MG #### [address] MCV (RBC) [Entitic vol] 86.7 fL Normal 83.5-101 [facility] Comment on above: Performed By: #### L IPID, [id number], PT, CBC, HEPATIC, BMP, PTT, TSH3, MG #### [address] Mean Corpuscular HGB Conc 33.9 g/dL Normal 32.5-35.6 [facility] Comment on above: Performed By: #### L IPID, [id number], PT, CBC, HEPATIC, BMP, PTT, TSH3, MG #### [address] Monocytes (Bld) [#/Vol] 0.4 10*3/uL Normal 0.0-0.8 [facility] Comment on above: Performed By: #### L IPID, [id number], PT, CBC, HEPATIC, BMP, PTT, TSH3, MG #### [place] [address] [place] Monocytes/100 WBC (Bld) 10.4 % Normal . [facility] Comment on above: Performed By: #### L IPID, [id number], PT, CBC, HEPATIC, BMP, PTT, TSH3, MG #### [facility] [address] Neutrophils (Bld) [#/Vol] 2.2 10*3/uL Normal 1.8-7.7 [facility] Comment on above: Performed By: #### L IPID, [id number], PT, CBC, HEPATIC, BMP, PTT, TSH3, MG #### [facility] [address] Neutrophils/100 WBC (Bld) 52.5 % Normal . [facility] Comment on above: Performed By: #### L IPID, [id number], PT, CBC, HEPATIC, BMP, PTT, TSH3, MG #### [facility] [address] [place] [address] NRBC% 0.1 /100{WBC} Normal 0-0.5 [facility] Comment on above: Performed By: #### L IPID, [id number], PT, CBC, HEPATIC, BMP, PTT, TSH3, MG #### [facility] [address] [place] [address] Platelet mean volume (Bld) [Entitic vol] 7.3 fL Normal 6.6-10.1 [facility] Comment on above: Performed By: #### L IPID, [id number], PT, CBC, HEPATIC, BMP, PTT, TSH3, MG #### [facility] [address] Platelets (Bld) [#/Vol] 153 10*3/uL Normal 150-450 [facility] Comment on above: Performed By: #### L IPID, [id number], PT, CBC, HEPATIC, BMP, PTT, TSH3, MG #### [facility] [address] [place] [address] RBC (Bld) [#/Vol] 4.61 10*6/uL Normal 3.90-5.60 [facility] Comment on above: Performed By: #### L IPID, [id number], PT, CBC, HEPATIC, BMP, PTT, TSH3, MG #### [facility] [address] WBC (Bld) [#/Vol] 4.1 10*3/uL Normal 4.1-10.[address] [facility] Comment on above: Performed By: #### L IPID, [id number], PT, CBC, HEPATIC, BMP, PTT, TSH3, MG #### [facility] [address] Hepatic Panelon 06-22-2023 Albumin [Mass/Vol] 3.8 g/dL Normal 3.5-5.[address] [facility] Comment on above: Order Comment: FASTI NG Y Performed By: #### H S TROP, CMP, CK, CBC #### [address] Albumin/Globulin [Mass ratio] 1.6 {ratio} Normal [facility] Comment on above: Order Comment: FASTI NG Y Performed By: #### H S TROP, CMP, CK, CBC #### [address] ALP [Catalytic activity/Vol] 57 U/L Normal 34-104 [facility] Comment on above: Order Comment: FASTI NG Y Performed By: #### H S TROP, CMP, CK, CBC #### [address] ALT [Catalytic activity/Vol] 26 U/L Normal 7-52 [facility] Comment on above: Order Comment: FASTI NG Y Performed By: #### H S TROP, CMP, CK, CBC #### [address] AST [Catalytic activity/Vol] 27 U/L Normal 13-39 [facility] Comment on above: Order Comment: FASTI NG Y Performed By: #### H S TROP, CMP, CK, CBC #### [address] Bilirubin [Mass/Vol] 1.0 mg/dL Normal 0.3-1.[address] [facility] Comment on above: Order Comment: FASTI NG Y Performed By: #### H S TROP, CMP, CK, CBC #### [address] Bilirubin,Indirect 0.8 mg/dL Normal [facility] Comment on above: Order Comment: FASTI NG Y Performed By: #### H S TROP, CMP, CK, CBC #### [address] Bilirubin.indirect [Mass/Vol] 0.20 mg/dL High 0.03-0.18 [facility] Comment on above: Order Comment: FASTI NG Y Performed By: #### H S TROP, CMP, CK, CBC #### [address] Globulin (S) [Mass/Vol] 2.4 g/dL Normal [facility] Comment on above: Order Comment: FASTI NG Y Performed By: #### H S TROP, CMP, CK, CBC #### [address] Protein [Mass/Vol] 6.2 g/dL Low 6.4-8.[address] [facility] Comment on above: Order Comment: FASTI NG Y Performed By: #### H S TROP, CMP, CK, CBC #### [address] Lipid Panelon 06-22-2023 Cholesterol [Mass/Vol] 108 mg/dL Low 140-200 [facility] Comment on above: Order Comment: FASTI NG Y Result Comment: Chol less than 200 mg/dl low risk Chol 201-239 mg/dl borderline risk Chol 240 mg/dl and greater high risk Performed By: #### H S TROP, CMP, CK, CBC #### [address] Cholesterol in HDL [Mass/Vol] 30 mg/dL Normal 23-92 [facility] Comment on above: Order Comment: FASTBryan NG Y Result Comment: HDL CHOL ATP-III CLASSIFICATION Cardiovascular Risk HDL > or equal to 60 mg/dL LOW HDL < 40 mg/dL HIGH Performed By: #### H S TROP, CMP, CK, CBC #### [facility] [address] Cholesterol.total/Chol esterol in HDL [Mass ratio] 3.6 {ratio} Normal <5.0 [facility] Comment on above: Order Comment: SHABANA MCNEILL Y Performed By: #### H S TROP, CMP, CK, CBC #### [facility] [address] LDL Cholesterol,Calculated 54 mg/dL Normal 0-100 [facility] Comment on above: Order Comment: SHABANA MCNEILL Y Result Comment: LDL ATP III CLASSIFICATION LDL less than 100 mg/dL Optimal LDL 100-129 mg/dL Near or above optimal LDL 130-159 mg/dL Borderline high LDL 160-189 mg/dL High LDL greater than 189 mg/dL Very high Performed By: #### H S TROP, CMP, CK, CBC #### [facility] [address] Triglyceride w/Reflex 120 mg/dL Normal 0-149 [facility] Comment on above: Order Comment: SHABANA OSITO Y Result Comment: TRIG ATP III CLASSIFICATION TRIG less than 150 mg/dL Normal TRIG 150-199 mg/dL Borderline high TRIG 200-500 mg/dL High TRIG greater than 500 mg/dL Very high Standard traceable to the Center for Disease Conrtrol and Prevention (CDC) test method. Performed By: #### H S TROP, CMP, CK, CBC #### [facility] [address] VLDL CHOLESTEROL 24 mg/dL Normal [facility] Comment on above: Order Comment: SHABANA MCNEILL Y Performed By: #### H S TROP, CMP, CK, CBC #### [facility] [address] [place] [id number] [facility] MR angio head wo noelon 06-22 MR angio head wo con [facility] [address] [place] [address] [place] [address] MRI Report Signed Patient: Yonatan Patel MR#: [id number] 6 : 1945 Acct:[id number] Age/Sex: 78 / M ADM Date: 06/20/23 Loc: 4N Room: 6S1092-2 Type: ADM IN Attending Dr: Maren Petersen MD Copies to: MD Berhane Rocha MD Ordering Provider: Berhane Trammell MD Date of Service: 06/22/23 MR/MR angio head wo con: stroke MRI/MRA BRAIN WITHOUT CONTRAST COMPARISON: CT 06/20/2023 CLINICAL DATA: Confusion Sagittal T2, axial FLAIR and diffusion-weighted imaging was performed. 3-D imic-fl-udsqjf imaging of the [place] was also performed. There is [...] Selena Reid M.D.06/22/2023 4:25 PM Dictation Location: [place] [address] Transcribed By: [facility] 06/22/23 1625 Dictated By: Selena Reid MD 06/22/23 1617 Signed By: 06/22/23 1625 [facility] Magnesiumon 06-22-2023 Magnesium [Mass/Vol] 2.1 mg/dL Normal 1.9-2.[address] [facility] Comment on above: Order Comment: SHABANA Child Performed By: #### H S TROP, CMP, CK, CBC #### [facility] [address] [place] [id number] [place] Partial Thromboplastin Timeo n 06-22-2023 aPTT Coag (Bld) [Time] 27.4 s Normal 25.1-36.5 [facility] Comment on above: Result Comment: A he matocrit value greater than 55% may lead to inaccurate results in coagulation testing. Patients having hematocrit values >55% require a special collection tube for coagulation studies. Please contact the laboratory at [phone] for redraw instructions. PERFORMED BY: [place] [address] PATHOLOGIST [employer] AGENT HARRY MARTI M.D. Performed By: #### H S TROP, CMP, CK, CBC #### [address] Prothrombin Time INRon 06-22 INR Coag (PPP) [Relative time] 1.0 {INR} Normal [facility] Comment on above: Result Comment: INR [...] - 4.5 Performed By: #### L IPID, [id number], PT, CBC, HEPATIC, BMP, PTT, TSH3, MG #### [place] [id number] [facility] PT Coag (PPP) [Time] 11.6 s Normal 9.0-12.[address] [facility] Comment on above: Result Comment: A he matocrit value greater than 55% may lead to inaccurate results in coagulation testing. Patients having hematocrit values >55% require a special collection tube for coagulation studies. Please contact the laboratory at [phone] for redraw instructions. Performed By: #### L IPID, [id number], PT, CBC, HEPATIC, BMP, PTT, TSH3, MG #### [address] Thyroid Stimulating Hormoneo n 06-22-2023 TSH Qn 2.38 m[IU]/L Normal 0.45-5.33 [facility] Comment on above: Order Comment: FASTI NG Y Result Comment: PERF ORMED BY: [place] [address] PATHOLOGIST [employer]ENT HARRY MARTI M.D. Performed By: #### H S TROP, CMP, CK, CBC #### [address] Vit. B12/Folate Profileon Cobalamin (Vitamin B12) [Mass/Vol] 425 pg/mL Normal 180-914 [facility] Comment on above: Order Comment: FASTI NG Y Performed By: #### H S TROP, CMP, CK, CBC #### [address] Folate 29.0 ng/mL Normal >5.9 [facility] Comment on above: Order Comment: FASTI NG Y Result Comment: Aye te reference range: >5.9 ng/ml The WHO technical consultation on folate and vitamin b12 deficiencies has determined that folate concentrations less than 4 ng/ml are considered deficient. Performed By: #### H S TROP, CMP, CK, CBC #### [address] Vitamin B1 (Thiamine) Bloodo n 06-22-2023 Vitamin B1 (Thiamine) Blood 143.9 Normal 66.5-200.0 [facility] Comment on above: Result Comment: This test was developed and its performance characteristics determined by [facility]. It has not been cleared or approved by the Food and Drug Administration. Performed at: [address] [id number] [place] [employer] Trimmer: Juan Howard MD, Phone: [phone] PERFORMED BY: [place] [address] PATHOLOGIST [employer] AGENT HARRY MARTI M.D. Performed By: #### V ITB1 #### [facility] , Ammoniaon 06-21-2023 Ammonia (P) [Moles/Vol] 19 umol/L Normal 11-35 [facility] Comment on above: Result Comment: PERF ORMED BY: [place] [address] PATHOLOGIST [employer] ENF[employer]CEMENT AGENT HARRY MARTI M.D. Performed By: #### H S TROP, CMP, CK, CBC #### [facility] [address] Basic Metabolic Panelon 11-0 Anion gap [Moles/Vol] 11.3 mmol/L Normal 6.0-15.0 [facility] Comment on above: Performed By: #### H S TROP, CMP, CK, CBC #### [facility] [address] [place] [address] Calcium [Mass/Vol] 9.4 mg/dL Normal 8.6-10.[address] [facility] Comment on above: Performed By: #### H S TROP, CMP, CK, CBC #### [facility] [address] Chloride [Moles/Vol] 107 mmol/L Normal 98-[address] [facility] Comment on above: Performed By: #### H S TROP, CMP, CK, CBC #### [facility] [address] [place] [address] CO2 [Moles/Vol] 25.7 mmol/L Normal 21.0-31.0 [facility] Comment on above: Performed By: #### H S TROP, CMP, CK, CBC #### [facility] [address] [place] [address] Creatinine [Mass/Vol] 0.83 mg/dL Normal 0.70-1.30 [facility] Comment on above: Performed By: #### H S TROP, CMP, CK, CBC #### [facility] [address] [place] [address] Creatinine Clr Calc Pharmacy 80.52 Normal [facility] Comment on above: Result Comment: PERF ORMED BY: [place] [address] PATHOLOGIST [employer] AGENT HARRY MARTI M.D. Performed By: #### H S TROP, CMP, CK, CBC #### [address] GFR/1.73 sq M.predicted MDRD (S/P/Bld) [Vol rate/Area] mL/min/{1.73_m2} Normal [facility] Comment on above: Performed By: #### H S TROP, CMP, CK, CBC #### [address] Glucose [Mass/Vol] 174 mg/dL High 70-[address] [facility] Comment on above: Result Comment: [facility] Glucose Reference Range is dependent on time and content of last meal. Glucose of more than 200 mg/dL in a nonstressed, ambulatory subject supports the diagnosis of Diabetes Mellitus. ADA recommended reference range Performed By: #### H S TROP, CMP, CK, CBC #### [address] Potassium [Moles/Vol] 4.0 mmol/L Normal 3.5-5.1 [facility] Comment on above: Performed By: #### H S TROP, CMP, CK, CBC #### [address] Sodium [Moles/Vol] 140 mmol/L Normal 136-[address] [facility] Comment on above: Performed By: #### H S TROP, CMP, CK, CBC #### [place] [address] [place] Urea nitrogen [Mass/Vol] 11 mg/dL Normal 7-25 [facility] Comment on above: Performed By: #### H S TROP, CMP, CK, CBC #### [address] Hemogram CBC Without Diffon 06-21-2023 Erythrocyte distribution width (RBC) [Ratio] 14.7 % Normal 12.0-14.8 [facility] Comment on above: Performed By: #### H S TROP, CMP, CK, CBC #### [address] Hematocrit (Bld) [Volume fraction] 40.7 % Normal 38.8-50.0 [facility] Comment on above: Performed By: #### H S TROP, CMP, CK, CBC #### [address] Hemoglobin (Bld) [Mass/Vol] 13.9 g/dL Normal 13.0-17.0 [facility] Comment on above: Performed By: #### H S TROP, CMP, CK, CBC #### [address] MCH (RBC) [Entitic mass] 29.7 pg Normal 27.5-35.2 [facility] Comment on above: Performed By: #### H S TROP, CMP, CK, CBC #### [address] MCV (RBC) [Entitic vol] 86.8 fL Normal 83.5-101 [facility] Comment on above: Performed By: #### H S TROP, CMP, CK, CBC #### [address] Mean Corpuscular HGB Conc 34.2 g/dL Normal 32.5-35.6 [facility] Comment on above: Performed By: #### H S TROP, CMP, CK, CBC #### [address] Platelet mean volume (Bld) [Entitic vol] 7.3 fL Normal 6.6-10.1 [facility] Comment on above: Result Comment: PERF ORMED BY: [place] [address] PATHOLOGIST [employer] AGENT HARRY MARTI M.D. Performed By: #### H S TROP, CMP, CK, CBC #### [address] Platelets (Bld) [#/Vol] 144 10*3/uL Low 150-450 [facility] Comment on above: Performed By: #### H S TROP, CMP, CK, CBC #### [facility] [address] RBC (Bld) [#/Vol] 4.69 10*6/uL Normal 3.90-5.60 [facility] Comment on above: Performed By: #### H S TROP, CMP, CK, CBC #### [facility] [address] WBC (Bld) [#/Vol] 3.9 10*3/uL Low 4.1-10.[address] [facility] Comment on above: Performed By: #### H S TROP, CMP, CK, CBC #### [facility] [address] COVID CepheidOrdered By: Huy Palacios on 06-20-2023 SARS-CoV-2 (COVID-19) Ab IA Ql Positive Negative [facility] Comment on above: This is a duplicate Cepheid Xpert Xpress CoV-2/Flu/RSV Plus RNA by RT-PCR result to be used for statistical tracking purpose only. SARS-CoV-2 (COVID-19) RNA MARIANNE+probe Ql (Unsp spec) [facility] COVID-19 / Flu A/B / RSV [...] or Cepheid Disclaimer revoked sooner. PERFORMED BY: [place] [address] PATHOLOGIST [employer] ENFORCEMENT AGENT HARRY MARTI M.D. [facility] Comment on above: Performed By: #### H S TROP, CMP, CK, CBC #### [address] head/brain wo [facility] hospital 06-20 CT head/brain wo [facility] [place] [address] CT Scan Report Signed Patient: Yonatan Patel MR#: [id number] 6 : 1945 Acct:[id number] Age/Sex: 78 / M ADM Date: 06/20/23 Loc: Room: [address] [place] [address] Type: ADM INOo Attending Dr: Jassi Arias DO Copies to: JassiDO Sandoval Velasco Jr, MD Ordering Provider: Sandoval Palacios Jr, [...] Daisha Fernandez M.D.06/20/2023 8:34 AM Dictation Location: [place] [address] Transcribed By: [facility] 06/20/23833 Dictated By: Daisha Fernandez II, MD 06/20/2330 Signed By: 06/20/2334 Normal [facility] Cepheid COVID PCR Positiveon 06-20-2023 SARS-CoV-2 (COVID-19) RNA MARIANNE+probe Ql (Unsp spec) Positive Critically abnormal Negative [facility] Comment on above: Result Comment: This is a duplicate Cepheid Xpert Xpress CoV-2/Flu/RSV Plus RNA by RT-PCR result to be used for statistical tracking purpose only. PERFORMED BY: [address] [place] [address] PATHOLOGIST [employer]ENT HARRY MARTI M.D. Performed By: #### H S TROP, CMP, CK, CBC #### [address] Complete Blood Count Auto Di ffon 06-20-2023 Basophils (Bld) [#/Vol] 0.0 10*3/uL Normal 0.0-0.2 [facility] Comment on above: Result Comment: PERF ORMED BY: [place] [address] PATHOLOGIST [employer]ENT HARRY MARTI M.D. Performed By: #### H S TROP, CMP, CK, CBC #### [address] Basophils/100 WBC (Bld) 0.4 % Normal . [facility] Comment on above: Performed By: #### H S TROP, CMP, CK, CBC #### [address] Eosinophils (Bld) [#/Vol] 0.0 10*3/uL Normal 0.0-0.45 [facility] Comment on above: Performed By: #### H S TROP, CMP, CK, CBC #### [address] Eosinophils/100 WBC (Bld) 0.6 % Normal . [facility] Comment on above: Performed By: #### H S TROP, CMP, CK, CBC #### [address] Erythrocyte distribution width (RBC) [Ratio] 14.9 % High 12.0-14.8 [facility] Comment on above: Performed By: #### H S TROP, CMP, CK, CBC #### [address] Hematocrit (Bld) [Volume fraction] 43.3 % Normal 38.8-50.0 [facility] Comment on above: Performed By: #### H S TROP, CMP, CK, CBC #### [address] Hemoglobin (Bld) [Mass/Vol] 14.8 g/dL Normal 13.0-17.0 [facility] Comment on above: Performed By: #### H S TROP, CMP, CK, CBC #### [address] Lymphocytes (Bld) [#/Vol] 1.0 10*3/uL Normal 1.00-4.8 [facility] Comment on above: Performed By: #### H S TROP, CMP, CK, CBC #### [address] Lymphocytes/100 WBC (Bld) 20.8 % Normal . [facility] Comment on above: Performed By: #### H S TROP, CMP, CK, CBC #### [address] MCH (RBC) [Entitic mass] 30.0 pg Normal 27.5-35.2 [facility] Comment on above: Performed By: #### H S TROP, CMP, CK, CBC #### [address] MCV (RBC) [Entitic vol] 87.6 fL Normal 83.5-101 [facility] Comment on above: Performed By: #### H S TROP, CMP, CK, CBC #### [address] Mean Corpuscular HGB Conc 34.2 g/dL Normal 32.5-35.6 [facility] Comment on above: Performed By: #### H S TROP, CMP, CK, CBC #### [address] Monocytes (Bld) [#/Vol] 0.8 10*3/uL Normal 0.0-0.8 [facility] Comment on above: Performed By: #### H S TROP, CMP, CK, CBC #### [address] Monocytes/100 WBC (Bld) 24.01 % High 0.00-20.00 [facility] Comment on above: Result Comment: For adults in ED, MDW > 20.0 may be associated with a higher risk of sepsis during the first 12 hrs of hospital admission Performed By: #### H S TROP, CMP, CK, CBC #### [address] Monocytes/100 WBC (Bld) 15.6 % Normal . [facility] Comment on above: Performed By: #### H S TROP, CMP, CK, CBC #### [address] Neutrophils (Bld) [#/Vol] 3.0 10*3/uL Normal 1.8-7.7 [facility] Comment on above: Performed By: #### H S TROP, CMP, CK, CBC #### [address] Neutrophils/100 WBC (Bld) 62.6 % Normal . [facility] Comment on above: Performed By: #### H S TROP, CMP, CK, CBC #### [address] NRBC% 0.4 /100{WBC} Normal 0-0.5 [facility] Comment on above: Performed By: #### H S TROP, CMP, CK, CBC #### [address] Platelet mean volume (Bld) [Entitic vol] 7.9 fL Normal 6.6-10.1 [facility] Comment on above: Performed By: #### H S TROP, CMP, CK, CBC #### [address] Platelets (Bld) [#/Vol] 154 10*3/uL Normal 150-450 [facility] Comment on above: Performed By: #### H S TROP, CMP, CK, CBC #### [address] RBC (Bld) [#/Vol] 4.94 10*6/uL Normal 3.90-5.60 [facility] Comment on above: Performed By: #### H S TROP, CMP, CK, CBC #### [facility] [address] [place] [address] WBC (Bld) [#/Vol] 4.8 10*3/uL Normal 4.1-10.[address] [facility] Comment on above: Performed By: #### H S TROP, CMP, CK, CBC #### [address] Comprehensive Metabolic Pane alex 06-20-2023 Albumin [Mass/Vol] 4.2 g/dL Normal 3.5-5.[address] [facility] Comment on above: Performed By: #### H S TROP, CMP, CK, CBC #### [address] Albumin/Globulin [Mass ratio] 1.6 {ratio} Normal [facility] Comment on above: Performed By: #### H S TROP, CMP, CK, CBC #### [address] ALP [Catalytic activity/Vol] 53 U/L Normal 34-104 [facility] Comment on above: Performed By: #### H S TROP, CMP, CK, CBC #### [address] ALT [Catalytic activity/Vol] 31 U/L Normal 7-52 [facility] Comment on above: Performed By: #### H S TROP, CMP, CK, CBC #### [address] Anion gap [Moles/Vol] 9.2 mmol/L Normal 6.0-15.0 [facility] Comment on above: Performed By: #### H S TROP, CMP, CK, CBC #### [address] AST [Catalytic activity/Vol] 33 U/L Normal 13-39 [facility] Comment on above: Performed By: #### H S TROP, CMP, CK, CBC #### [address] Bilirubin [Mass/Vol] 1.0 mg/dL Normal 0.3-1.[address] [facility] Comment on above: Performed By: #### H S TROP, CMP, CK, CBC #### [address] Calcium [Mass/Vol] 9.8 mg/dL Normal 8.6-10.[address] [facility] Comment on above: Performed By: #### H S TROP, CMP, CK, CBC #### [address] Chloride [Moles/Vol] 107 mmol/L Normal 98-[address] [facility] Comment on above: Performed By: #### H S TROP, CMP, CK, CBC #### [address] CO2 [Moles/Vol] 25.6 mmol/L Normal 21.0-31.0 [facility] Comment on above: Performed By: #### H S TROP, CMP, CK, CBC #### [address] Creatinine [Mass/Vol] 0.95 mg/dL Normal 0.70-1.30 [facility] Comment on above: Performed By: #### H S TROP, CMP, CK, CBC #### [address] Creatinine Clr Calc Pharmacy 70.44 [facility] Comment on above: Result Comment: PERF ORMED BY: [place] [address] PATHOLOGIST [employer]ENT HARRY MARTI M.D. Performed By: #### H S TROP, CMP, CK, CBC #### [address] GFR/1.73 sq M.predicted MDRD (S/P/Bld) [Vol rate/Area] mL/min/{1.73_m2} [facility] Comment on above: Performed By: #### H S TROP, CMP, CK, CBC #### [address] Globulin (S) [Mass/Vol] 2.7 g/dL Normal [facility] Comment on above: Performed By: #### H S TROP, CMP, CK, CBC #### [facility] [address] Glucose [Mass/Vol] 94 mg/dL Normal 70-[address] [facility] Comment on above: Result Comment: [facility] Glucose Reference Range is dependent on time and content of last meal. Glucose of more than 200 mg/dL in a nonstressed, ambulatory subject supports the diagnosis of Diabetes Mellitus. ADA recommended reference range Performed By: #### H S TROP, CMP, CK, CBC #### [address] Potassium [Moles/Vol] 3.8 mmol/L Normal 3.5-5.1 [facility] Comment on above: Performed By: #### H S TROP, CMP, CK, CBC #### [address] Protein [Mass/Vol] 6.9 g/dL Normal 6.4-8.[address] [facility] Comment on above: Performed By: #### H S TROP, CMP, CK, CBC #### [address] Sodium [Moles/Vol] 138 mmol/L Normal 136-[address] [facility] Comment on above: Performed By: #### H S TROP, CMP, CK, CBC #### [address] Urea nitrogen [Mass/Vol] 18 mg/dL Normal 7-25 [facility] Comment on above: Performed By: #### H S TROP, CMP, CK, CBC #### [address] Creatine Kinaseon 06-20-2023 CK [Catalytic activity/Vol] 113 U/L Normal 30-223 [facility] Comment on above: Performed By: #### H S TROP, CMP, CK, CBC #### [address] Troponin I High Sensitivityo n 06-20-2023 Troponin I High Sensitivity 7.8 pg/mL Normal 0.0-20.0 [facility] Comment on above: Result Comment: PERF ORMED BY: [place] [address] PATHOLOGIST [employer]ENT HARRY MARTI M.D. Performed By: #### H S TROP, CMP, CK, CBC #### [facility] [address] [place] [address] Urinalysison 06-20-2023 Appearance (U) Clear Normal Clear [facility] Comment on above: Order Comment: Name Collection Type:: Clean-Voided Midstream Performed By: #### H S TROP, CMP, CK, CBC #### [facility] [address] [place] [address] Bilirubin,Urine Negative Normal Negative [facility] Comment on above: Order Comment: Name Collection Type:: Clean-Voided Midstream Performed By: #### H S TROP, CMP, CK, CBC #### [facility] [address] [place] [address] Color (U) Yellow Normal Yellow [facility] Comment on above: Order Comment: Name Collection Type:: Clean-Voided Midstream Performed By: #### H S TROP, CMP, CK, CBC #### [facility] [address] [place] [address] Glucose Ql (U) Normal Normal Normal [facility] Comment on above: Order Comment: Name Collection Type:: Clean-Voided Midstream Performed By: #### H S TROP, CMP, CK, CBC #### [facility] [address] [place] [address] Ketones Ql (U) Negative Normal Negative [facility] Comment on above: Order Comment: Name Collection Type:: Clean-Voided Midstream Performed By: #### H S TROP, CMP, CK, CBC #### [facility] [address] [place] [address] Leukocyte esterase Test strip Ql (U) Negative Normal Negative [facility] Comment on above: Order Comment: Name Collection Type:: Clean-Voided Midstream Performed By: #### H S TROP, CMP, CK, CBC #### [place] [address] [place] Nitrite,Urine Negative Normal Negative [facility] Comment on above: Order Comment: Name Collection Type:: Clean-Voided Midstream Performed By: #### H S TROP, CMP, CK, CBC #### [address] Occult Blood,Urine Negative Normal Negative [facility] Comment on above: Order Comment: Name Collection Type:: Clean-Voided Midstream Result Comment: PERF ORMED BY: [place] [address] PATHOLOGIST [employer]ENT HARRY MARTI M.D. Performed By: #### H S TROP, CMP, CK, CBC #### [address] pH (U) 5.5 [pH] Normal 5.0-9.0 [facility] Comment on above: Order Comment: Name Collection Type:: Clean-Voided Midstream Performed By: #### H S TROP, CMP, CK, CBC #### [address] Protein,Urine Negative Normal Negative [facility] Comment on above: Order Comment: Name Collection Type:: Clean-Voided Midstream Performed By: #### H S TROP, CMP, CK, CBC #### [address] Specificy [place],Urine 1.005 Normal 1.001-1.03 0 [facility] Comment on above: Order Comment: Name Collection Type:: Clean-Voided Midstream Performed By: #### H S TROP, CMP, CK, CBC #### [place] [address] [place] Urobilinogen,Urine Normal Normal Normal [facility] Comment on above: Order Comment: Name Collection Type:: Clean-Voided Midstream Performed By: #### H S TROP, CMP, CK, CBC #### [address] [place] [address] [facility] XR chest 2V*on 06-20-2023 XR chest 2V* [facility] [place] [address] [place] [id number] XRay Report Signed Patient: Yonatan Patel MR#: [id number] 6 : 1945 Acct:[id number] Age/Sex: 78 / M ADM Date: 06/20/23 Loc: Room: [address] [place] [address] Type: ADM INOo Attending Dr: Jassi Arias [...] are redemonstrated, as above. Impression dictated by: aDisha Fernandez M.D.06/20/2023 11:21 AM Dictation Location: [place] [address] Transcribed By: [facility] 06/20/23 1121 Dictated By: Daisha Fernandez II, MD 06/20/23 1120 Signed By: 06/20/23 1121 Normal [facility] Alanine aminotransferase [En zymatic activity/volume] in Serum or PlasmaOrdered By: PROVIDER TEMP on 06-19-2023 ALT [Catalytic activity/Vol] 31 U/L 7-52 [facility] Albumin [Mass/volume] in Ser um or Plasma by Bromocresol green (BCG) dye binding methoOrdered By: PROVIDER TEMP on 06-19-2023 Albumin BCG dye [Mass/Vol] 4.2 g/dL 3.5-5.7 [facility] Alkaline phosphatase [Enzyma tic activity/volume] in Serum or PlasmaOrdered By: PROVIDER TEMP on 06-19-2023 ALP [Catalytic activity/Vol] 53 U/L 34-104 [facility] Aspartate aminotransferase [ Enzymatic activity/volume] in Serum or PlasmaOrdered By: PROVIDER TEMP on 06-19-2023 AST [Catalytic activity/Vol] 33 U/L 13-39 [facility] Basophils Auto (Bld) [#/Vol] Ordered By: PROVIDER TEMP on 06-19-2023 Basophils (Bld) [#/Vol] 0.0 10*3/uL 0.0-0.2 [facility] Basophils/100 WBC Auto (Bld) Ordered By: PROVIDER TEMP on 06-19-2023 Basophils/100 WBC (Bld) 0.4 % . [facility] Bilirubin Auto test strip Ql (U)Ordered By: PROVIDER TEMP on 06-19-2023 Bilirubin Ql (U) Negative Negative [facility] Bilirubin.total [Mass/volume ] in Serum or PlasmaOrdered By: PROVIDER TEMP on 06-19-2023 Bilirubin [Mass/Vol] 1.0 mg/dL 0.3-1.[address] [facility] Calcium [Mass/volume] in Ser um or PlasmaOrdered By: PROVIDER TEMP on 06-19-2023 Calcium [Mass/Vol] 9.8 mg/dL 8.6-10.[address] [facility] Carbon dioxide, total [Moles /volume] in Serum or PlasmaOrdered By: PROVIDER TEMP on 06-19-2023 CO2 [Moles/Vol] 25.6 mmol/L 21.0-31.0 [facility] Chloride [Moles/volume] in S raymundo or PlasmaOrdered By: PROVIDER TEMP on 06-19-2023 Chloride [Moles/Vol] 107 mmol/L 98-[address] [facility] Creatine kinase [Enzymatic a ctivity/volume] in Serum or PlasmaOrdered By: PROVIDER TEMP on 06-19-2023 CK [Catalytic activity/Vol] 113 U/L 30-223 [facility] Creatinine [Mass/volume] in Serum or PlasmaOrdered By: PROVIDER TEMP on 06-19-2023 Creatinine [Mass/Vol] 0.95 mg/dL 0.70-1.30 [facility] Eosinophils Auto (Bld) [#/Vo l]Ordered By: PROVIDER TEMP on 06-19-2023 Eosinophils (Bld) [#/Vol] 0.0 10*3/uL 0.0-0.45 [facility] Eosinophils/100 WBC Auto (Bl d)Ordered By: PROVIDER TEMP on 06-19-2023 Eosinophils/100 WBC (Bld) 0.6 % . [facility] Erythrocyte distribution wid th Auto (RBC) [Ratio]Ordered By: PROVIDER TEMP on 06-19-2023 Erythrocyte distribution width (RBC) [Ratio] 14.9 % 12.0-14.8 [facility] Globulin Calc (S) [Mass/Vol] Ordered By: PROVIDER TEMP on 06-19-2023 Globulin (S) [Mass/Vol] 2.7 g/dL [facility] Glucose [Mass/volume] in Ser um or PlasmaOrdered By: PROVIDER TEMP on 06-19-2023 Glucose [Mass/Vol] 94 mg/dL 70-[address] [facility] Comment on above: ADA recommended refe rence rangeRandom Glucose Reference Range is dependent on time and content of last meal. Glucose of more than 200 mg/dL in a nonstressed, ambulatory subject supports the diagnosis of Diabetes Mellitus. Hematocrit Auto (Bld) [Volum e fraction]Ordered By: PROVIDER TEMP on 06-19-2023 Hematocrit (Bld) [Volume fraction] 43.3 % 38.8-50.0 [facility] Hemoglobin [Mass/volume] in BloodOrdered By: PROVIDER TEMP on 06-19-2023 Hemoglobin (Bld) [Mass/Vol] 14.8 g/dL 13.0-17.0 [facility] Ketones Auto test strip (U) [Mass/Vol]Ordered By: PROVIDER TEMP on 06-19-2023 Ketones (U) [Mass/Vol] Negative Negative [facility] Leukocytes [#/volume] correc airam for nucleated erythrocytes in Blood by Automated counOrdered By: PROVIDER TEMP on 06-19-2023 WBC corrected for nucl RBC Auto (Bld) [#/Vol] 4.8 10*3/uL 4.1-10.5 [facility] Lymphocytes Auto (Bld) [#/Vo l]Ordered By: PROVIDER TEMP on 06-19-2023 Lymphocytes (Bld) [#/Vol] 1.0 10*3/uL 1.00-4.8 [facility] Lymphocytes/100 WBC Auto (Bl d)Ordered By: PROVIDER TEMP on 06-19-2023 Lymphocytes/100 WBC (Bld) 20.8 % . [facility] MCH Auto (RBC) [Entitic mass ]Ordered By: PROVIDER TEMP on 06-19-2023 MCH (RBC) [Entitic mass] 30.0 pg 27.5-35.2 [facility] MCHC Auto (RBC) [Mass/Vol]Or dered By: PROVIDER TEMP on 06-19-2023 MCHC (RBC) [Mass/Vol] 34.2 g/dL 32.5-35.6 [facility] MCV Auto (RBC) [Entitic vol] Ordered By: PROVIDER TEMP on 06-19-2023 MCV (RBC) [Entitic vol] 87.6 fL 83.5-101 [facility] Monocyte distribution width [Entitic volume] in Blood by AutomatedOrdered By: PROVIDER TEMP on 06-19-2023 Monocyte distribution width Auto (Bld) [Entitic vol] 24.01 % 0.00-20.00 [facility] Comment on above: For adults in ED, MD W > 20.0 may be associated with a higher risk of sepsis during the first 12 hrs of hospital admission Monocytes Auto (Bld) [#/Vol] Ordered By: PROVIDER TEMP on 06-19-2023 Monocytes (Bld) [#/Vol] 0.8 10*3/uL 0.0-0.8 [facility] Monocytes/100 WBC Auto (Bld) Ordered By: PROVIDER TEMP on 06-19-2023 Monocytes/100 WBC (Bld) 15.6 % . [facility] Neutrophils Auto (Bld) [#/Vo l]Ordered By: PROVIDER TEMP on 06-19-2023 Neutrophils (Bld) [#/Vol] 3.0 10*3/uL 1.8-7.7 [facility] Neutrophils/100 WBC Auto (Bl d)Ordered By: PROVIDER TEMP on 06-19-2023 Neutrophils/100 WBC (Bld) 62.6 % . [facility] No Panel InformationOrdered By: PROVIDER TEMP on 06-19-2023 Estimated GFR (CKD-EPI) > 60.0 mL/Min [facility] Creatinine Clearance (Chem 70.44 [facility] Nucleated erythrocytes [Pres ence] in Blood by Automated countOrdered By: PROVIDER TEMP on 06-19-2023 Nucleated RBC Auto Ql (Bld) 0.4 /100{WBC} 0-0.5 [facility] Platelet mean volume Auto (B ld) [Entitic vol]Ordered By: PROVIDER TEMP on 06-19-2023 Platelet mean volume (Bld) [Entitic vol] 7.9 fL 6.6-10.1 [facility] Platelets Auto (Bld) [#/Vol] Ordered By: PROVIDER TEMP on 06-19-2023 Platelets (Bld) [#/Vol] 154 10*3/uL 150-450 [facility] Potassium [Moles/volume] in Serum or PlasmaOrdered By: PROVIDER TEMP on 06-19-2023 Potassium [Moles/Vol] 3.8 mmol/L 3.5-5.1 [facility] Protein Auto test strip (U) [Mass/Vol]Ordered By: PROVIDER TEMP on 06-19-2023 Protein (U) [Mass/Vol] Negative Negative [facility] Protein [Mass/volume] in Ser um or PlasmaOrdered By: PROVIDER TEMP on 06-19-2023 Protein [Mass/Vol] 6.9 g/dL 6.4-8.[address] [facility] RBC Auto (Bld) [#/Vol]Ordere d By: PROVIDER TEMP on 06-19-2023 RBC (Bld) [#/Vol] 4.94 10*6/uL 3.90-5.60 [facility] Serum or plasma albumin/glob ulin mass ratioOrdered By: PROVIDER TEMP on 06-19-2023 Albumin/Globulin [Mass ratio] 1.6 {ratio} [facility] Serum or plasma anion gap de terminationOrdered By: PROVIDER TEMP on 06-19-2023 Anion gap [Moles/Vol] 9.2 mmol/L 6.0-15.0 [facility] Sodium [Moles/volume] in Ser um or PlasmaOrdered By: PROVIDER TEMP on 06-19-2023 Sodium [Moles/Vol] 138 mmol/L 136-[address] [facility] Troponin I.cardiac [Mass/vol ume] in Serum or Plasma by Detection limit <= 0.01 ng/Ordered By: PROVIDER TEMP on 06-19-2023 Troponin I.cardiac DL <= 0.01 ng/mL [Mass/Vol] 7.8 pg/mL 0.0-20.0 [facility] Urea nitrogen [Mass/volume] in Serum or PlasmaOrdered By: PROVIDER TEMP on 06-19-2023 Urea nitrogen [Mass/Vol] 18 mg/dL 7-25 [facility] Urine appearanceOrdered By: PROVIDER TEMP on 06-19-2023 Appearance (U) Clear Clear [facility] Urine colorOrdered By: SOLE JEANETTE TEMP on 06-19-2023 Color (U) Yellow Yellow [facility] Urine glucose measurement by automated test strip (mass/volume)Ordered By: PROVIDER TEMP on 06-19-2023 Glucose Auto test strip (U) [Mass/Vol] Normal mg/dL Normal [facility] Urine hemoglobin detection b y automated test stripOrdered By: PROVIDER TEMP on 06-19-2023 Hemoglobin Auto test strip Ql (U) Negative Negative [facility] Urine leukocyte esterase det ection by automated test stripOrdered By: PROVIDER TEMP on 06-19-2023 Leukocyte esterase Auto test strip Ql (U) Negative Negative [facility] Urine nitrite detection by a utomated test stripOrdered By: PROVIDER TEMP on 06-19-2023 Nitrite Auto test strip Ql (U) Negative Negative [facility] Urobilinogen Auto test strip (U) [Mass/Vol]Ordered By: PROVIDER TEMP on 06-19-2023 Urobilinogen (U) [Mass/Vol] Normal mg/dL Normal [facility] WBC Auto (Bld) [#/Vol]Ordere d By: PROVIDER TEMP on 06-19-2023 WBC (Bld) [#/Vol] 4.8 10*3/uL 4.1-10.[address] [facility] pH Auto test strip (U)Ordere d By: PROVIDER TEMP on 06-19-2023 pH (U) 1.005 [pH] 1.001-1.03 0 [facility] pH (U) 5.5 [pH] 5.0-9.0 [facility] ECH echo transthoracicon [facility] echo transthoracic [facility] [place] [address] Echocardiogram Signed Patient: Yonatan Patel MR#: [id number] 6 : 1945 Acct:[id number] Age/Sex: 77 / M ADM Date: 03/01/23 Loc: Room: [address] [place] [address] Type: ADM INOo Attending Dr: Angely Lee DO Ordering Provider: Bobo Villagomez MD Date of Service: 03/01/23 [facility] echo transthoracic: Neuro Symptoms/Deficit Copies to: Sinan Sahu MD, FACC Bobo Villagomez MD Weight: 188 lb Performed [...] 03/02/23 0958 Signed By: Sinan Sahu MD, [facility] 03/02/23 1215 [facility] MR cervical spine wo conon 0 03-02-2023 MR cervical spine wo con [facility] [place] [place] [address] MRI Report Signed Patient: Yonatan Patel MR#: [id number] 6 : 1945 Acct:[id number] Age/Sex: 77 / M ADM Date: 03/01/23 Loc: 3T Room: [address] [place] [address] Type: ADM INOo Attending Dr: Angely Lee [...] Daisha Fernandez M.D.03/02/2023 5:11 PM Dictation Location: [place] [address] Transcribed By: [facility] 03/02/231710 Dictated By: Daisha Fernandez II, MD 03/02/23 170 Signed By: 03/02/23 171 [facility] MR lumbar spine wo [facility] MR lumbar spine wo [facility] [place] [address] [place] [address] MRI Report Signed Patient: Yonatan Patel MR#: [id number] 6 : 1945 Acct:[id number] Age/Sex: 77 / M ADM Date: 03/01/23 Loc: Room: [address] [place] [address] Type: ADM INOo Attending Dr: Angely Lee [...] Daisha Fernandez M.D.03/02/2023 5:18 PM Dictation Location: [place] [address] Transcribed By: [facility] 03/02/231717 Dictated By: Daisha Fernandez II, MD 03/02/231710 Signed By: 03/02/231717 Normal [facility] A1C with Estimated Average [place] 03-01-2023 Glucose [Mass/Vol] 123 mg/dL Normal [facility] Comment on above: Order Comment: Comme nt add on Result Comment: PERF ORMED BY: [place] [address] PATHOLOGIST [employer] HARRY MARTI M.D. Performed By: #### A 1C [facility] eA, LIPID #### [facility] [address] [place] [address] HbA1c (Bld) [Mass fraction] 5.9 % High 4.3-5.6 [facility] Comment on above: Order Comment: Comme nt add on Result Comment: Incr eased risk for diabetes: 5.7 - 6.4 diabetes: >6.4 glycemic control for adults with diabetes: <7.0 Performed By: #### A 1C WT eA, LIPID #### [facility] [address] [place] [address] Activated partial thrombopla stin time (aPTT) in platelet poor plasma by coagulation aOrdered By: Alejo Lynn on 03-01-2023 aPTT Coag (PPP) [Time] 27.2 s 25.1-36.5 [facility] Alanine aminotransferase [En zymatic activity/volume] in Serum or PlasmaOrdered By: Alejo Lynn on 03-01-2023 ALT [Catalytic activity/Vol] 34 U/L 7-52 [facility] Albumin [Mass/volume] in Ser um or Plasma by Bromocresol green (BCG) dye binding methoOrdered By: Alejo Lynn on 03-01-2023 Albumin BCG dye [Mass/Vol] 4.4 g/dL 3.5-5.7 [facility] Alkaline phosphatase [Enzyma tic activity/volume] in Serum or PlasmaOrdered By: Alejo Lynn on 03-01-2023 ALP [Catalytic activity/Vol] 61 U/L 34-104 [facility] Aspartate aminotransferase [ Enzymatic activity/volume] in Serum or PlasmaOrdered By: Alejo Lynn on 03-01-2023 AST [Catalytic activity/Vol] 30 U/L 13-39 [facility] B-Type Natriuretic Peptideon 03-01-2023 Natriuretic peptide B (Bld) [Mass/Vol] 96.0 pg/mL Normal 5-100 [facility] Comment on above: Result Comment: PERF ORMED BY: [place] [address] PATHOLOGIST [employer]ENT HARRY MARTI M.D. Performed By: #### H S TROP, CMP, CK, CBC #### [address] Basic Metabolic Panelon 02-14 Anion gap [Moles/Vol] 10.3 mmol/L Normal 6.0-15.0 [facility] Comment on above: Performed By: #### H S TROP, CMP, CK, CBC #### [facility] [address] [place] [address] Calcium [Mass/Vol] 9.7 mg/dL Normal 8.6-10.[address] [facility] Comment on above: Performed By: #### H S TROP, CMP, CK, CBC #### [facility] [address] [place] [address] Chloride [Moles/Vol] 107 mmol/L Normal 98-[address] [facility] Comment on above: Performed By: #### H S TROP, CMP, CK, CBC #### [facility] [address] [place] [address] CO2 [Moles/Vol] 26.0 mmol/L Normal 21.0-31.0 [facility] Comment on above: Performed By: #### H S TROP, CMP, CK, CBC #### [place] [address] [place] Creatinine [Mass/Vol] 0.91 mg/dL Normal 0.70-1.30 [facility] Comment on above: Performed By: #### H S TROP, CMP, CK, CBC #### [facility] [address] Creatinine Clr Calc Pharmacy 76.53 [facility] Comment on above: Result Comment: PERF ORMED BY: [place] [address] PATHOLOGIST [employer]ENT HARRY MARTI M.D. Performed By: #### H S TROP, CMP, CK, CBC #### [facility] [address] GFR/1.73 sq M.predicted MDRD (S/P/Bld) [Vol rate/Area] mL/min/{1.73_m2} [facility] Comment on above: Performed By: #### H S TROP, CMP, CK, CBC #### [address] Glucose [Mass/Vol] 106 mg/dL High 70-[address] [facility] Comment on above: Result Comment: [place] Glucose Reference Range is dependent on time and content of last meal. Glucose of more than 200 mg/dL in a nonstressed, ambulatory subject supports the diagnosis of Diabetes Mellitus. ADA recommended reference range Performed By: #### H S TROP, CMP, CK, CBC #### [facility] [address] Potassium [Moles/Vol] 4.3 mmol/L Normal 3.5-5.1 [facility] Comment on above: Performed By: #### H S TROP, CMP, CK, CBC #### [facility] [address] Sodium [Moles/Vol] 139 mmol/L Normal 136-[address] [facility] Comment on above: Performed By: #### H S TROP, CMP, CK, CBC #### [facility] [address] Urea nitrogen [Mass/Vol] 16 mg/dL Normal 7-25 [facility] Comment on above: Performed By: #### H S TROP, CMP, CK, CBC #### [facility] [address] Basophils Auto (Bld) [#/Vol] Ordered By: Alejo Lynn on 03-01-2023 Basophils (Bld) [#/Vol] 0.0 10*3/uL 0.0-0.2 [facility] Basophils/100 WBC Auto (Bld) Ordered By: Alejo Lynn on 03-01-2023 Basophils/100 WBC (Bld) 0.7 % . [facility] Bilirubin Test strip Ql (U)O rdered By: Alejo Lynn on 03-01-2023 Bilirubin Ql (U) Negative Negative [facility] Bilirubin.direct [Mass/volum e] in Serum or PlasmaOrdered By: Alejo Lynn on 03-01-2023 Bilirubin.direct [Mass/Vol] 0.30 mg/dL 0.03-0.18 [facility] Bilirubin.total [Mass/volume ] in Serum or PlasmaOrdered By: Alejo Lynn on 03-01-2023 Bilirubin [Mass/Vol] 1.7 mg/dL 0.3-1.[address] [facility] Comment on above: Samples from patient s who have taken Naproxen have shown spurious elevation in Total Bilirubin levels. A metabolite of Naproxen, O-desmethylnaproxen, has been shown to interfere with the Jendryoletteik-Grof method for measuring Total Bilirubin. CT head stroke alert wo cono n 03-01-2023 CT head stroke alert wo con [facility] [place] [address] [place], [place] [id number] CT Scan Report Signed Patient: Yonatan Patel MR#: [id number] 6 : 1945 Acct:[id number] Age/Sex: 77 / M ADM Date: 03/01/23 Loc: ER Room: Type: [facility] ER Attending Dr: Copies to: Alejo [...] Selena Reid M.D.03/01/2023 8:13 AM Dictation Location: [place] [address] Transcribed By: [facility] 03/01/23 08 Dictated By: Selena Reid MD 03/01/23 0807 Signed By: 03/01/2313 Normal [facility] Calcium [Mass/volume] in Ser um or PlasmaOrdered By: Alejo Lynn on 03-01-2023 Calcium [Mass/Vol] 9.7 mg/dL 8.6-10.[address] [facility] Carbon dioxide, total [Moles /volume] in Serum or PlasmaOrdered By: Alejo Lynn on 03-01-2023 CO2 [Moles/Vol] 26.0 mmol/L 21.0-31.0 [facility] Chloride [Moles/volume] in S raymundo or PlasmaOrdered By: Alejo Lynn on 03-01-2023 Chloride [Moles/Vol] 107 mmol/L 98-[address] [facility] Color Auto (U)Ordered By: Franco Lynn on 03-01-2023 Color (U) Yellow Yellow [facility] Complete Blood Count Auto Di ffon 03-01-2023 Basophils (Bld) [#/Vol] 0.0 10*3/uL Normal 0.0-0.2 [facility] Comment on above: Result Comment: PERF ORMED BY: [place] [address] PATHOLOGIST [employer]ENT HARRY MARTI M.D. Performed By: #### H S TROP, CMP, CK, CBC #### [address] Basophils/100 WBC (Bld) 0.7 % Normal . [facility] Comment on above: Performed By: #### H S TROP, CMP, CK, CBC #### [address] Eosinophils (Bld) [#/Vol] 0.1 10*3/uL Normal 0.0-0.45 [facility] Comment on above: Performed By: #### H S TROP, CMP, CK, CBC #### [address] Eosinophils/100 WBC (Bld) 1.4 % Normal . [facility] Comment on above: Performed By: #### H S TROP, CMP, CK, CBC #### [address] Erythrocyte distribution width (RBC) [Ratio] 14.5 % Normal 12.0-14.8 [facility] Comment on above: Performed By: #### H S TROP, CMP, CK, CBC #### [address] Hematocrit (Bld) [Volume fraction] 43.2 % Normal 38.8-50.0 [facility] Comment on above: Performed By: #### H S TROP, CMP, CK, CBC #### [address] Hemoglobin (Bld) [Mass/Vol] 14.9 g/dL Normal 13.0-17.0 [facility] Comment on above: Performed By: #### H S TROP, CMP, CK, CBC #### [address] Lymphocytes (Bld) [#/Vol] 1.3 10*3/uL Normal 1.00-4.8 [facility] Comment on above: Performed By: #### H S TROP, CMP, CK, CBC #### [address] Lymphocytes/100 WBC (Bld) 23.7 % Normal . [facility] Comment on above: Performed By: #### H S TROP, CMP, CK, CBC #### [address] MCH (RBC) [Entitic mass] 29.6 pg Normal 27.5-35.2 [facility] Comment on above: Performed By: #### H S TROP, CMP, CK, CBC #### [address] MCV (RBC) [Entitic vol] 86.1 fL Normal 83.5-101 [facility] Comment on above: Performed By: #### H S TROP, CMP, CK, CBC #### [address] Mean Corpuscular HGB Conc 34.4 g/dL Normal 32.5-35.6 [facility] Comment on above: Performed By: #### H S TROP, CMP, CK, CBC #### [address] Monocytes (Bld) [#/Vol] 0.4 10*3/uL Normal 0.0-0.8 [facility] Comment on above: Performed By: #### H S TROP, CMP, CK, CBC #### [address] Monocytes/100 WBC (Bld) 17.75 % Normal 0.00-20.00 [facility] Comment on above: Performed By: #### H S TROP, CMP, CK, CBC #### [address] Monocytes/100 WBC (Bld) 8.3 % Normal . [facility] Comment on above: Performed By: #### H S TROP, CMP, CK, CBC #### [address] Neutrophils (Bld) [#/Vol] 3.5 10*3/uL Normal 1.8-7.7 [facility] Comment on above: Performed By: #### H S TROP, CMP, CK, CBC #### [address] Neutrophils/100 WBC (Bld) 65.9 % Normal . [facility] Comment on above: Performed By: #### H S TROP, CMP, CK, CBC #### [address] NRBC% 0.3 /100{WBC} Normal 0-0.5 [facility] Comment on above: Performed By: #### H S TROP, CMP, CK, CBC #### [address] Platelet mean volume (Bld) [Entitic vol] 8.0 fL Normal 6.6-10.1 [facility] Comment on above: Performed By: #### H S TROP, CMP, CK, CBC #### [address] Platelets (Bld) [#/Vol] 143 10*3/uL Low 150-450 [facility] Comment on above: Performed By: #### H S TROP, CMP, CK, CBC #### [address] RBC (Bld) [#/Vol] 5.02 10*6/uL Normal 3.90-5.60 [facility] Comment on above: Performed By: #### H S TROP, CMP, CK, CBC #### [address] WBC (Bld) [#/Vol] 5.4 10*3/uL Normal 4.1-10.[address] [facility] Comment on above: Performed By: #### H S TROP, CMP, CK, CBC #### [address] Creatine Kinaseon 03-01-2023 CK [Catalytic activity/Vol] 178 U/L Normal 30-223 [facility] Comment on above: Performed By: #### H S TROP, CMP, CK, CBC #### [address] Creatine kinase [Enzymatic a ctivity/volume] in Serum or PlasmaOrdered By: Alejo Lynn on 03-01-2023 CK [Catalytic activity/Vol] 178 U/L [facility] Creatinine [Mass/volume] in Serum or PlasmaOrdered By: Alejo Lynn on 03-01-2023 Creatinine [Mass/Vol] 0.91 mg/dL 0.70-1.30 [facility] ECG 12 lead ECGon 03-01-2023 ECG 12 lead ECG [facility] [place] [address] [place] [address] Electrocardiograph Report Signed Patient: Yonatan Patel MR#: [id number] 6 : 1945 Acct:[id number] Age/Sex: 77 / M ADM Date: 03/01/23 Loc: Room: [address] [place] [address] Type: ADM INOo Attending Dr: Bobo Villagomez [...] longer present Confirmed by Alejo Lynn DO ([id number]) on 03/01/2023 3:12:57 PM Referred By: Electronically Signed By:Alejo Lynn DO Transcribed By: MUS Signed By Alejo Lynn DO 3 1513 Normal [facility] Eosinophils Auto (Bld) [#/Vo l]Ordered By: Alejo Lynn on 03-01-2023 Eosinophils (Bld) [#/Vol] 0.1 10*3/uL 0.0-0.45 [facility] Eosinophils/100 WBC Auto (Bl d)Ordered By: Alejo Lynn on 03-01-2023 Eosinophils/100 WBC (Bld) 1.4 % . [facility] Erythrocyte distribution wid th Auto (RBC) [Ratio]Ordered By: Alejo Lynn on 03-01-2023 Erythrocyte distribution width (RBC) [Ratio] 14.5 % 12.0-14.8 [facility] Globulin Calc (S) [Mass/Vol] Ordered By: Alejo Lynn on 03-01-2023 Globulin (S) [Mass/Vol] 2.3 g/dL [facility] Glucose [Mass/volume] in Ser um or PlasmaOrdered By: Alejo Lynn on 03-01-2023 Glucose [Mass/Vol] 106 mg/dL 70-[address] [facility] Comment on above: ADA recommended refe rence rangeRandom Glucose Reference Range is dependent on time and content of last meal. Glucose of more than 200 mg/dL in a nonstressed, ambulatory subject supports the diagnosis of Diabetes Mellitus. Hematocrit Auto (Bld) [Volum e fraction]Ordered By: Alejo Lynn on 03-01-2023 Hematocrit (Bld) [Volume fraction] 43.2 % 38.8-50.0 [facility] Hemoglobin [Mass/volume] in BloodOrdered By: Alejo Lynn on 03-01-2023 Hemoglobin (Bld) [Mass/Vol] 14.9 g/dL 13.0-17.0 [facility] Hepatic Panelon 03-01-2023 Albumin [Mass/Vol] 4.4 g/dL Normal 3.5-5.[address] [facility] Comment on above: Performed By: #### H S TROP, CMP, CK, CBC #### [facility] [address] Albumin/Globulin [Mass ratio] 1.9 {ratio} Normal [facility] Comment on above: Performed By: #### H S TROP, CMP, CK, CBC #### [facility] [address] ALP [Catalytic activity/Vol] 61 U/L Normal 34-104 [facility] Comment on above: Performed By: #### H S TROP, CMP, CK, CBC #### [facility] [address] ALT [Catalytic activity/Vol] 34 U/L Normal 7-52 [facility] Comment on above: Performed By: #### H S TROP, CMP, CK, CBC #### [facility] [address] AST [Catalytic activity/Vol] 30 U/L Normal 13-39 [facility] Comment on above: Performed By: #### H S TROP, CMP, CK, CBC #### [facility] [address] Bilirubin [Mass/Vol] 1.7 mg/dL High 0.3-1.[address] [facility] Comment on above: Result Comment: Samp les from patients who have taken Naproxen have shown spurious elevation in Total Bilirubin levels. A metabolite of Naproxen, O-desmethylnaproxen, has been shown to interfere with the Jendrassik-Grof method for measuring Total Bilirubin. Performed By: #### H S TROP, CMP, CK, CBC #### [address] Bilirubin,Indirect 1.4 mg/dL Normal [facility] Comment on above: Performed By: #### H S TROP, CMP, CK, CBC #### [facility] [address] Bilirubin.indirect [Mass/Vol] 0.30 mg/dL High 0.03-0.18 [facility] Comment on above: Performed By: #### H S TROP, CMP, CK, CBC #### [facility] [address] Globulin (S) [Mass/Vol] 2.3 g/dL Normal [facility] Comment on above: Performed By: #### H S TROP, CMP, CK, CBC #### [facility] [address] Protein [Mass/Vol] 6.7 g/dL Normal 6.4-8.[address] [facility] Comment on above: Performed By: #### H S TROP, CMP, CK, CBC #### [facility] [address] Ketones Auto test strip (U) [Mass/Vol]Ordered By: Alejo Lynn on 03-01-2023 Ketones (U) [Mass/Vol] Negative Negative [facility] Laboratory - CoagulationOrde red By: Alejo Lynn on 03-01-2023 PT Coag (PPP) [Time] 11.6 s 9.0-12.[address] [facility] Leukocytes [#/volume] correc airam for nucleated erythrocytes in Blood by Automated counOrdered By: Alejo Lynn on 03-01-2023 WBC corrected for nucl RBC Auto (Bld) [#/Vol] 5.4 10*3/uL 4.1-10.5 [facility] Lipid Panelon 03-01-2023 Cholesterol [Mass/Vol] 96 mg/dL Low 140-200 [facility] Comment on above: Order Comment: Comme nt add on Result Comment: Chol less than 200 mg/dl low risk Chol 201-239 mg/dl borderline risk Chol 240 mg/dl and greater high risk Performed By: #### A 1C WT eA, LIPID #### [facility] [address] Cholesterol in HDL [Mass/Vol] 36 mg/dL Normal 23-92 [facility] Comment on above: Order Comment: Comme nt add on Result Comment: HDL CHOL ATP-III CLASSIFICATION Cardiovascular Risk HDL > or equal to 60 mg/dL LOW HDL < 40 mg/dL HIGH Performed By: #### A 1C WT eA, LIPID #### [facility] [address] Cholesterol.total/Chol esterol in HDL [Mass ratio] 2.7 {ratio} Normal <5.0 [facility] Comment on above: Order Comment: Comme nt add on Result Comment: PERF ORMED BY: [facility] [address] [place] [address] PATHOLOGIST [employer]ENT HARRY MARTI M.D. Performed By: #### A 1C [facility] eA, LIPID #### [facility] [address] LDL Cholesterol,Calculated 39 mg/dL Normal 0-100 [facility] Comment on above: Order Comment: Comme nt add on Result Comment: LDL ATP III CLASSIFICATION LDL less than 100 mg/dL Optimal LDL 100-129 mg/dL Near or above optimal LDL 130-159 mg/dL Borderline high LDL 160-189 mg/dL High LDL greater than 189 mg/dL Very high Performed By: #### A 1C [facility] eA, LIPID #### [facility] [address] Triglyceride w/Reflex 106 mg/dL Normal 0-149 [facility] Comment on above: Order Comment: Comme nt add on Result Comment: TRIG ATP III CLASSIFICATION TRIG less than 150 mg/dL Normal TRIG 150-199 mg/dL Borderline high TRIG 200-500 mg/dL High TRIG greater than 500 mg/dL Very high Standard traceable to the Center for Disease Conrtrol and Prevention (CDC) test method. Performed By: #### A 1C [facility] eA, LIPID #### [facility] [address] VLDL CHOLESTEROL 21 mg/dL Normal [facility] Comment on above: Order Comment: Comme nt add on Performed By: #### A 1C [facility] Krista, LIPID #### [facility] [address] Lymphocytes Auto (Bld) [#/Vo l]Ordered By: Alejo Lynn on 03-01-2023 Lymphocytes (Bld) [#/Vol] 1.3 10*3/uL 1.00-4.8 [facility] Lymphocytes/100 WBC Auto (Bl d)Ordered By: Alejo Lynn on 03-01-2023 Lymphocytes/100 WBC (Bld) 23.7 % . [facility] MCH Auto (RBC) [Entitic mass ]Ordered By: Alejo Lynn on 03-01-2023 MCH (RBC) [Entitic mass] 29.6 pg 27.5-35.2 [facility] MCHC Auto (RBC) [Mass/Vol]Or dered By: Alejo Lynn on 03-01-2023 MCHC (RBC) [Mass/Vol] 34.4 g/dL 32.5-35.6 [facility] MCV Auto (RBC) [Entitic vol] Ordered By: Alejo Lynn on 03-01-2023 MCV (RBC) [Entitic vol] 86.1 fL 83.5-101 [facility] Monocyte distribution width [Entitic volume] in Blood by AutomatedOrdered By: Alejo Lynn on 03-01-2023 Monocyte distribution width Auto (Bld) [Entitic vol] 17.75 % 0.00-20.00 [facility] Monocytes Auto (Bld) [#/Vol] Ordered By: Alejo Lynn on 03-01-2023 Monocytes (Bld) [#/Vol] 0.4 10*3/uL 0.0-0.8 [facility] Monocytes/100 WBC Auto (Bld) Ordered By: Alejo Lynn on 03-01-2023 Monocytes/100 WBC (Bld) 8.3 % . [facility] Natriuretic peptide B [Mass/ Vol]Ordered By: Alejo Lynn on 03-01-2023 Natriuretic peptide B (Bld) [Mass/Vol] 96.0 pg/mL 5-100 [facility] Neutrophils Auto (Bld) [#/Vo l]Ordered By: Alejo Lynn on 03-01-2023 Neutrophils (Bld) [#/Vol] 3.5 10*3/uL 1.8-7.7 [facility] Neutrophils/100 WBC Auto (Bl d)Ordered By: Alejo Lynn on 03-01-2023 Neutrophils/100 WBC (Bld) 65.9 % . [facility] Nitrite Test strip Ql (U)Ord ered By: Alejo Lynn on 03-01-2023 Nitrite Ql (U) Negative Negative [facility] No Panel InformationOrdered By: Alejo Lynn on 03-01-2023 Estimated GFR (CKD-EPI) > 60.0 mL/Min [facility] Creatinine Clearance (Chem 76.53 [facility] Nucleated erythrocytes [Pres ence] in Blood by Automated countOrdered By: Alejo Lynn on 03-01-2023 Nucleated RBC Auto Ql (Bld) 0.3 /100{WBC} 0-0.5 [facility] Partial Thromboplastin Timeo n 03-01-2023 aPTT Coag (Bld) [Time] 27.2 s Normal 25.1-36.5 [facility] Comment on above: Result Comment: PERF ORMED BY: [facility] [address] [place] [address] PATHOLOGIST [employer]ENT HARRY MARTI M.D. Performed By: #### H S TROP, CMP, CK, CBC #### [facility] [address] Platelet mean volume Auto (B ld) [Entitic vol]Ordered By: Alejo Lynn on 03-01-2023 Platelet mean volume (Bld) [Entitic vol] 8.0 fL 6.6-10.1 [facility] Platelet poor plasma interna tional normalized ratio (INR) by coagulation assay (relatOrdered By: Alejo Lynn on 03-01-2023 INR Coag (PPP) [Relative time] 1.0 {INR} [facility] Comment on above: INR Therapeutic Rang [...] 03-01-2023 Platelets (Bld) [#/Vol] 143 10*3/uL 150-450 [facility] Potassium [Moles/volume] in Serum or PlasmaOrdered By: Alejo Lynn on 03-01-2023 Potassium [Moles/Vol] 4.3 mmol/L 3.5-5.1 [facility] Protein Auto test strip (U) [Mass/Vol]Ordered By: Alejo Lynn on 03-01-2023 Protein (U) [Mass/Vol] Negative Negative [facility] Protein [Mass/volume] in Ser um or PlasmaOrdered By: Alejo Lynn on 03-01-2023 Protein [Mass/Vol] 6.7 g/dL 6.4-8.[address] [facility] Prothrombin Time INRon 03-01 INR Coag (PPP) [Relative time] 1.0 {INR} Normal [facility] Comment on above: Result Comment: INR [...] H S TROP, CMP, CK, CBC #### [facility] [address] PT Coag (PPP) [Time] 11.6 s Normal 9.0-12.[address] [facility] Comment on above: Performed By: #### H S TROP, CMP, CK, CBC #### [facility] [address] RBC Auto (Bld) [#/Vol]Ordere d By: Alejo Lynn on 03-01-2023 RBC (Bld) [#/Vol] 5.02 10*6/uL 3.90-5.60 [facility] Serum or plasma albumin/glob ulin mass ratioOrdered By: Alejo Lynn on 03-01-2023 Albumin/Globulin [Mass ratio] 1.9 {ratio} [facility] Serum or plasma anion gap de terminationOrdered By: Alejo Lynn on 03-01-2023 Anion gap [Moles/Vol] 10.3 mmol/L 6.0-15.0 [facility] Serum or plasma non-glucuron idated bilirubin measurement (mass/volume)Ordered By: Alejo Lynn on 03-01-2023 Bilirubin.indirect [Mass/Vol] 1.4 mg/dL [facility] Sodium [Moles/volume] in Ser um or PlasmaOrdered By: Alejo Lynn on 03-01-2023 Sodium [Moles/Vol] 139 mmol/L 136-[address] [facility] Specific gravity Auto test s trip (U) [Rel density]Ordered By: Alejo Lynn on 03-01-2023 Specific gravity (U) [Rel density] 1.014 1.001-1.03 0 [facility] Troponin I High Sensitivityo n 03-01-2023 Troponin I High Sensitivity 8.1 pg/mL Normal 0.0-20.0 [facility] Comment on above: Result Comment: PERF ORMED BY: [place] [address] PATHOLOGIST [employer] HARRY MARTI M.D. Performed By: #### H S TROP, CMP, CK, CBC #### [facility] [address] [place] [address] Troponin I.cardiac [Mass/vol ume] in Serum or Plasma by Detection limit <= 0.01 ng/Ordered By: Alejo Lynn on 03-01-2023 Troponin I.cardiac DL <= 0.01 ng/mL [Mass/Vol] 8.1 pg/mL 0.0-20.0 [facility] Urea nitrogen [Mass/volume] in Serum or PlasmaOrdered By: Alejo Lynn on 03-01-2023 Urea nitrogen [Mass/Vol] 16 mg/dL 7-25 [facility] Urinalysison 03-01-2023 Appearance (U) Clear Normal Clear [facility] Comment on above: Order Comment: Name Collection Type:: Clean-Voided Midstream Performed By: #### U A #### [facility] [address] [place] [address] Bilirubin,Urine Negative Normal Negative [facility] Comment on above: Order Comment: Name Collection Type:: Clean-Voided Midstream Performed By: #### U A #### [facility] [address] [place] [address] [place] Color (U) Yellow Normal Yellow [facility] Comment on above: Order Comment: Name Collection Type:: Clean-Voided Midstream Performed By: #### U A #### [address] Glucose Ql (U) Normal Normal Normal [facility] Comment on above: Order Comment: Name Collection Type:: Clean-Voided Midstream Performed By: #### U A #### [address] Ketones Ql (U) Negative Normal Negative [facility] Comment on above: Order Comment: Name Collection Type:: Clean-Voided Midstream Performed By: #### U A #### [address] Leukocyte esterase Test strip Ql (U) Negative Normal Negative [facility] Comment on above: Order Comment: Name Collection Type:: Clean-Voided Midstream Performed By: #### U A #### [place] [address] [place] Nitrite,Urine Negative Normal Negative [facility] Comment on above: Order Comment: Name Collection Type:: Clean-Voided Midstream Performed By: #### U A #### [place] [address] [place] Occult Blood,Urine Negative Normal Negative [facility] Comment on above: Order Comment: Name Collection Type:: Clean-Voided Midstream Result Comment: PERF ORMED BY: [place] [address] PATHOLOGIST [employer]ENT HARRY MARTI M.D. Performed By: #### U A #### [place] [address] [place] pH (U) 7.5 [pH] Normal 5.0-9.0 [facility] Comment on above: Order Comment: Name Collection Type:: Clean-Voided Midstream Performed By: #### U A #### [place] [address] [place] Protein,Urine Negative Normal Negative [facility] Comment on above: Order Comment: Name Collection Type:: Clean-Voided Midstream Performed By: #### U A #### [place] [address] [place] Specificy [place],Urine 1.014 Normal 1.001-1.03 0 [facility] Comment on above: Order Comment: Name Collection Type:: Clean-Voided Midstream Performed By: #### U A #### [facility] [address] [place] [address] Urobilinogen,Urine Normal Normal Normal [facility] Comment on above: Order Comment: Name Collection Type:: Clean-Voided Midstream Performed By: #### U A #### [facility] [address] [place] [address] Urine clarity by refractomet ry automatedOrdered By: Alejo Lynn on 03-01-2023 Clarity Refractometry automated (U) Clear Clear [facility] Urine glucose measurement by automated test strip (mass/volume)Ordered By: Alejo Lynn on 03-01-2023 Glucose Auto test strip (U) [Mass/Vol] Normal mg/dL Normal [facility] Urine hemoglobin detection b y automated test stripOrdered By: Alejo Lynn on 03-01-2023 Hemoglobin Auto test strip Ql (U) Negative Negative [facility] Urine leukocyte esterase det ection by automated test stripOrdered By: Alejo Lynn on 03-01-2023 Leukocyte esterase Auto test strip Ql (U) Negative Negative [facility] Urobilinogen Auto test strip (U) [Mass/Vol]Ordered By: Alejo Lynn on 03-01-2023 Urobilinogen (U) [Mass/Vol] Normal mg/dL Normal [facility] WBC Auto (Bld) [#/Vol]Ordere d By: Alejo Lynn on 03-01-2023 WBC (Bld) [#/Vol] 5.4 10*3/uL 4.1-10.[address] [facility] XR chest 1V portableon 03-01 XR chest 1V portable [facility] [place] [address] XRay Report Signed Patient: Yonatan Patel MR#: [id number] 6 : 1945 Acct:[id number] Age/Sex: 77 / M ADM Date: 03/01/23 Loc: Room: 1J1059-8 Type: ADM INOo Attending Dr: Bobo Villagomez [...] Selena Reid M.D.03/01/2023 9:15 AM Dictation Location: [place] [address] Transcribed By: MICHEL 03/01/2315 Dictated By: Selena Reid MD 03/01/2314 Signed By: 03/01/2315 Normal [facility] pH Auto test strip (U)Ordere d By: Alejo Lynn on 03-01-2023 pH (U) 7.5 [pH] 5.0-9.0 [facility] H Pylori Stool Ag, EIAon H Pylori Stool Ag, EIA Negative Normal Negative [facility] Comment on above: Order Comment: SOURC E OF SPECIMEN: STOOL Result Comment: Perf ormed at: - [facility] [id number] [place] [employer] Trimmer: Juan Howard MD, Phone: [phone] PERFORMED BY: [place] [address] PATHOLOGIST [employer]ENT HARRY MARTI M.D. Performed By: #### H S TROP, CMP, CK, CBC #### [facility] [address] [place] [address] CBC AUTO DIFFon 09-14-2022 BASO # 0.0 103/ul Normal 0.0-0.1 [facility] Comment on above: Performed By: #### C BC #### [facility] [address] [place] [address] Dr. Patrica Nathan Basophils/100 WBC (Bld) 0.7 % Normal 0.2-2.0 [facility] Comment on above: Performed By: #### C BC #### [facility] [address] [place] [address] Dr. Patrica Nathan EO # 0.1 103/ul Normal 0.0-0.7 [facility] Comment on above: Performed By: #### C BC #### [facility] [address] [place] [address] Dr. Patrica Nathan Eosinophils/100 WBC (Bld) 1.5 % Normal 0.9-7.0 [facility] Comment on above: Performed By: #### C BC #### [facility] [address] [place] [address] Dr. Patrica Nathan Erythrocyte distribution width (RBC) [Ratio] 14.2 % Normal 11.0-15.0 [facility] Comment on above: Performed By: #### C BC #### [facility] [address] [place] [address] Dr. Patrica Nathan Hematocrit (Bld) [Volume fraction] 42.1 % Normal 42.0-54.0 [facility] Comment on above: Performed By: #### C BC #### [facility] [address] [place] [address] Dr. Patrica Nathan Hemoglobin (Bld) [Mass/Vol] 14.6 g/dL Normal 14.0-18.0 [facility] Comment on above: Performed By: #### C BC #### [facility] [address] [place] [address] Dr. Patrica Nathan IG # 0.03 10e3/ul Normal 0.00-0.03 [facility] Comment on above: Performed By: #### C BC #### [facility] [address] [place] [address] Dr. Patrica Nathan IG % 0.5 % Normal 0.0-0.5 [facility] Comment on above: Performed By: #### C BC #### [facility] [address] [place] [address] Dr. Patrica Nathan LYMPH # 1.3 103/ul Normal 1.2-3.8 [facility] Comment on above: Performed By: #### C BC #### [facility] [address] [place] [address] Dr. Patrica Nathan Lymphocytes/100 WBC (Bld) 22.4 % Normal 20.5-60.0 [facility] Comment on above: Performed By: #### C BC #### [facility] [address] [place] [address] Dr. Patrica Nathan MANUAL DIFF REQ NO Normal [facility] Comment on above: Performed By: #### C BC #### [facility] [address] [place] [address] Dr. Patrica Nathan MCH (RBC) [Entitic mass] 29.4 pg Normal 25.9-34.0 [facility] Comment on above: Performed By: #### C BC #### [facility] [address] [place] [address] Dr. Patrica Nathan MCHC (RBC) [Mass/Vol] 34.7 g/dL Normal 29.9-35.2 [facility] Comment on above: Performed By: #### C BC #### [facility] [address] [place] [address] Dr. Patrica Nathan MCV (RBC) [Entitic vol] 84.9 fL Normal 80.0-94.0 [facility] Comment on above: Performed By: #### C BC #### [facility] [address] [place] [address] Dr. Patrica Nathan MONO # 0.6 103/ul Normal 0.3-0.8 [facility] Comment on above: Performed By: #### C BC #### [facility] [address] [place] [address] Dr. Patrica Nathan Monocytes/100 WBC (Bld) 9.9 % Normal 1.7-12.0 [facility] Comment on above: Performed By: #### C BC #### [facility] [address] [place] [address] Dr. Patrica Nathan NEUT # 3.9 103/ul Normal 1.4-6.5 [facility] Comment on above: Performed By: #### C BC #### [facility] [address] [place] [address] Dr. Patrica Nathan Neutrophils/100 WBC (Bld) 65.0 % Normal 43.0-75.0 [facility] Comment on above: Performed By: #### C BC #### [facility] [address] [place] [address] Dr. Patrica Nathan Platelet mean volume (Bld) [Entitic vol] 9.6 fL Normal 9.5-13.5 [facility] Comment on above: Performed By: #### C BC #### [facility] [address] [place] [address] Dr. Patrica Nathan PLT 170 103/ul Normal 150-450 [facility] Comment on above: Performed By: #### C BC #### [facility] [address] [place] [address] Dr. Patrica Nathan RBC 4.96 106/ul Normal 4.70-6.10 [facility] Comment on above: Performed By: #### C BC #### [facility] [address] [place] [address] Dr. Patrica Nathan WBC 6.0 103/ul Normal 4.0-11.0 [facility] Comment on above: Performed By: #### C BC #### [facility] [address] [place] [address] HEAD WO CONon [...] ANGELY KENNEDY Date: 2022-09-14 10:00 Normal [facility] PROF 14(COMP METB)on 023 Albumin [Mass/Vol] 3.7 g/dL Normal 3.4-5.0 [facility] Comment on above: Performed By: #### C JV HSTROPN #### [facility] [address] [address] [address] Patrica Nathan Albumin/Globulin [Mass ratio] 1.4 {ratio} Normal [facility] Comment on above: Performed By: #### C JV HSTROPN #### [facility] [address] [address] [address] Patrica Nathan ALP [Catalytic activity/Vol] 83 U/L Normal 46-116 [facility] Comment on above: Performed By: #### C JV HSTROPN #### [facility] [address] [place] [address] [address] Patrica Nathan ALT [Catalytic activity/Vol] 57 U/L Normal 16-63 [facility] Comment on above: Performed By: #### C JV HSTROPN #### [facility] [address] [address] [address] Patrica Nathan Anion gap [Moles/Vol] 11.9 mmol/L Normal [facility] Comment on above: Performed By: #### C JV HSTROPN #### [facility] [address] [place] [address] [address] Patrica Nathan AST [Catalytic activity/Vol] 43 U/L Critically high 15-37 [facility] Comment on above: Performed By: #### C MP, HSTROPN #### [facility] [address] [place] [address] Dr. Patrica Nathan Bilirubin [Mass/Vol] 1.1 mg/dL Critically high 0.2-1.0 [facility] Comment on above: Performed By: #### C MP, HSTROPN #### [facility] [address] [place] [address] Dr. Patrica Nathan Calcium [Mass/Vol] 9.2 mg/dL Normal 8.5-10.1 [facility] Comment on above: Performed By: #### C MP, HSTROPN #### [facility] [address] [place] [address] Dr. Patrica Nathan Chloride [Moles/Vol] 106 mmol/L Normal 98-107 [facility] Comment on above: Performed By: #### C MP, HSTROPN #### [facility] [address] [place] [address] Dr. Patrica Nathan CO2 [Moles/Vol] 28.0 mmol/L Normal 21.0-32.0 [facility] Comment on above: Performed By: #### C MP, HSTROPN #### [facility] [address] [place] [address] Dr. Patrica Nathan Creatinine [Mass/Vol] 0.92 mg/dL Normal 0.70-1.30 [facility] Comment on above: Performed By: #### C MP, HSTROPN #### [facility] [address] [place] [address] Dr. Patrica Nathan EGFR-AF EGYPTIAN >60 Normal >=60 [facility] Comment on above: Performed By: #### C MP, HSTROPN #### [facility] [address] [place] [address] Dr. Patrica Nathan EGFR-NON AF EGYPTIAN >60 Normal >=60 [facility] Comment on above: Performed By: #### C MP, HSTROPN #### [facility] [address] [place] [address] [address] Patrica Nathan Globulin (S) [Mass/Vol] 2.7 g/dL Normal [facility] Comment on above: Performed By: #### C MP, HSTROPN #### [facility] [address] [address] [address] Patrica Nathan Glucose [Mass/Vol] 90 mg/dL Normal 74-106 [facility] Comment on above: Performed By: #### C MP, HSTROPN #### [facility] [address] [place] [address] Dr. Patrica Nathan Potassium [Moles/Vol] 3.9 mmol/L Normal 3.5-5.1 [facility] Comment on above: Performed By: #### C MP, HSTROPN #### [facility] [address] [place] [address] Dr. Patrica Nathan Protein [Mass/Vol] 6.4 g/dL Normal 6.4-8.2 [facility] Comment on above: Performed By: #### C MP, HSTROPN #### [facility] [address] [place] [address] Dr. Patrica Nathan Sodium [Moles/Vol] 142 mmol/L Normal 136-145 [facility] Comment on above: Performed By: #### C MP, HSTROPN #### [facility] [address] [place] [address] Dr. Patrica Nathan Urea nitrogen [Mass/Vol] 19.0 mg/dL Critically high 7.0-18.0 [facility] Comment on above: Performed By: #### C MP, HSTROPN #### [facility] [address] [place] [address] Dr. Patrica Nathan Urea nitrogen/Creatinine [Mass ratio] 20.7 mg/mg Normal [facility] Comment on above: Performed By: #### C MP, HSTROPN #### [facility] [address] [place] [address] Dr. Patrica Nathan TROPONIN, HIGH SENSITIVITYon 09-14-2022 HSTROP 5.8 pg/mL Normal 4.0-76.1 [facility] Comment on above: Result Comment: CUT- OFF POINTS HAVE BEEN ESTABLISHED BASED ON THE FOURTH UNIVERSAL DEFINITIONS OF MYOCARDIAL INFARCTION. THE UPPER REFERENCE LIMIT (URL) OF TROPONIN, DEFINED THE 99TH PERCENTILE OF cTnI DISTRIBUTION IN A REFERENCE POPULATION, HAS BEEN CONFIRMED THE DECISION THRESHOLD FOR UT DIAGNOSIS. Performed By: #### C MP, HSTROPN #### [facility] [address] [address] [address] Patrica Nathan XR CHEST 1 Von 09-14-2022 XR CHEST 1 V EXAM: XR CHEST 1 V HISTORY: Near syncope COMPARISON: None. TECHNIQUE: Single view of the chest FINDINGS: Heart size normal. No focal consolidation, pleural effusion, pulmonary congestion or pneumothorax. IMPRESSION: No acute findings. Electronically authenticated by: PASTORA DREW Date: 2022-09-14 10:01 Normal [facility] Alex 08-27-2022 L ------- Specimen: [id number] Received: 08/27/22 Status: MARIAH Mando Num: [id number] Spec Type: Surgical Subm Dr: Maryjane Christensen MD Tissues: A Gastric Biopsy (GASTRIC BX) B Colon Biopsy (ASCENDING POLYP) C Colon Biopsy (SIGMIOD POLYP) Procedures: HE/6, Gross/Micro L4/3, H PYLORI Age/ Patient Sex Location Account Attending Physician Yonatan Patel Jose 77/M [id number] Alek Oliva MD SPEC NUM: [id number] RECD: 08/27/22 STATUS: MARIAH WEBER NUM: [id number] EVE: 08/27/22- [facility] DR: Maryjane Christensen MD ENTERED: 08/27/22 [facility] DR: BRITTANIE TYPE: Surgical DEPT: S ORDERED: HE/6, Gross/Micro L4/3, H PYLORI ORDERED: HE/6, Gross/Micro L4/3, H PYLORI Supplemental Report Addendum 1 Entered: 08/28/222 A. Immunohistochemical stain for Helicobacter Pylori is POSITIVE. Addendum Signed (signature on file) Aaliyah Beard MD 08/28/22 1557 Pathological Diagnosis A. Stomach, gastric, biopsy: - Moderate chronic active gastritis. - Positive for Helicobacter pylori like organisms on H E stain. COMMENT: Confirmatory Helicobacter pylori immunohistochemical stain is being performed, an addendum report will be issued on completion. B. Colon, ascending, polypectomy: - Tubular adenoma. Specimen: [id number] Received: 08/27/22 Status: MARIAH Weber Num: [id number] Spec Type: Surgical Subm Dr: Maryjane Christensen MD Tissues: A Gastric Biopsy (GASTRIC BX) B Colon Biopsy (ASCENDING POLYP) C Colon Biopsy (SIGMIOD POLYP) Procedures: HE/6, Gross/Micro L4/3, H PYLORI Patient: Yonatan Patel [id number] (Continued) Specimen: [id number] Received: 08/27/22 (Continued) Pathological Diagnosis (Continued) Signed (signature on file) Aaliyah Beard MD 08/28/22 1236 Specimen: [id number] Received: 08/27/22 Status: MARIAH Weber Num: [id number] Spec Type: Surgical Subm Dr: Maryjane Christensen MD Tissues: A Gastric Biopsy (GASTRIC BX) B Colon Biopsy (ASCENDING POLYP) C Colon Biopsy (SIGMIOD POLYP) Procedures: HE/6, Gross/Micro L4/3, H PYLORI Patient: Yonatan Patel [id number] (Continued) Specimen: [id number] Received: 08/27/22 (Continued) Pathological Diagnosis (Continued) C. [...] support the above pathologic diagnosis. CPT Codes 65113?3 Specimen: [id number] Received: 08/27/22 Status: MARIAH Weber Num: [id number] Spec Type: Surgical Subm Dr: Maryjane Christensen MD Tissues: A Gastric Biopsy (GASTRIC BX) B Colon Biopsy (ASCENDING POLYP) C Colon Biopsy (SIGMIOD POLYP) Procedures: HE/6, Gross/Micro L4/3, H PYLORI --------- (more content not included)... Normal [facility] MRI BRAIN WO CONon 2 MRI [...] by: BERHANE HERNANDEZ Date: 2022-07-29 08:42 Normal [facility] LIPID PROFILEon 07-28-2022 CHOL-HDL RATIO NORM SEE BELOW Normal [facility] Comment on above: Result Comment: 3.3 - 4.4 LOW RISK 4.4 - 7.1 AVERAGE RISK 7.1 - 11.0 MODERATE RISK >11.0 HIGH RISK Performed By: #### C MP, HSTROPN #### [facility] [address] [address] [address] Patrica Nathan Cholesterol [Mass/Vol] 97 mg/dL Normal <=200 [facility] Comment on above: Performed By: #### C MP, HSTROPN #### [facility] [address] [address] [address] Patrica Nathan Cholesterol in HDL [Mass/Vol] 40 mg/dL Normal 40-60 [facility] Comment on above: Performed By: #### C MP, HSTROPN #### [facility] [address] [address] [address] Patrica Nathan Cholesterol in LDL [Mass/Vol] 31.8 mg/dL Normal [facility] Comment on above: Performed By: #### C MP, HSTROPN #### [facility] [address] [address] [address] Patrica Nathan Cholesterol.total/Chol esterol in HDL [Mass ratio] 2.4 {ratio} Normal [facility] Comment on above: Performed By: #### C MP, HSTROPN #### [facility] [address] [address] [address] Patrica Nathan HDL NORMAL > or = 60 mg/dl - LO W CARDIOVASCULAR RISK <40 mg/dl - HIGH CARDIOVASCULAR RISK Normal [facility] Comment on above: Performed By: #### C MP, HSTROPN #### [facility] [address] [place] [address] Dr. Patrica Nathan LDL CALC NORMAL SEE BELOW Normal [facility] Comment on above: Result Comment: <100 mg/dl OPTIMAL 100 - 129 mg/dl NEAR OR ABOVE OPTIMAL 130 - 159 mg/dl BORDERLINE HIGH 160 - 189 mg/dl HIGH >190 mg/dl VERY HIGH Performed By: #### C MP, HSTROPN #### [facility] [address] [place] [address] Dr. Patrica Nathan Triglyceride [Mass/Vol] 126 mg/dL Normal <=150 [facility] Comment on above: Performed By: #### C MP, HSTROPN #### [facility] [address] [place] [address] Dr. Patrica Nathan VLDL CALC 25.2 mg/dL Normal [facility] Comment on above: Performed By: #### C MP, HSTROPN #### [facility] [address] [place] [address] Dr. Patrica Nathan CBC AUTO DIFFon 07-01-2022 BASO # 0.0 103/ul Normal 0.0-0.1 [facility] Comment on above: Performed By: #### C BC #### [facility] [address] [place] [address] Dr. Patrica Nathan Basophils/100 WBC (Bld) 0.5 % Normal 0.2-2.0 [facility] Comment on above: Performed By: #### C BC #### [facility] [address] [place] [address] Dr. Patrica Nathan EO # 0.1 103/ul Normal 0.0-0.7 [facility] Comment on above: Performed By: #### C BC #### [facility] [address] [place] [address] Dr. Patrica Nathan Eosinophils/100 WBC (Bld) 2.2 % Normal 0.9-7.0 [facility] Comment on above: Performed By: #### C BC #### [facility] [address] [place] [address] Dr. Patrica Nathan Erythrocyte distribution width (RBC) [Ratio] 14.3 % Normal 11.0-15.0 [facility] Comment on above: Performed By: #### C BC #### [facility] [address] [place] [address] Dr. Patrica Nathan Hematocrit (Bld) [Volume fraction] 45.8 % Normal 42.0-54.0 [facility] Comment on above: Performed By: #### C BC #### [facility] [address] [place] [address] Dr. Patrica Nathan Hemoglobin (Bld) [Mass/Vol] 15.1 g/dL Normal 14.0-18.0 [facility] Comment on above: Performed By: #### C BC #### [facility] [address] [place] [address] Dr. Patrica Nathan IG # 0.01 10e3/ul Normal 0.00-0.03 [facility] Comment on above: Performed By: #### C BC #### [facility] [address] [place] [address] Dr. Patrica Nathan IG % 0.2 % Normal 0.0-0.5 [facility] Comment on above: Performed By: #### C BC #### [facility] [address] [place] [address] Dr. Patrica Nathan LYMPH # 1.4 103/ul Normal 1.2-3.8 [facility] Comment on above: Performed By: #### C BC #### [facility] [address] [place] [address] Dr. Patrica Nathan Lymphocytes/100 WBC (Bld) 24.0 % Normal 20.5-60.0 [facility] Comment on above: Performed By: #### C BC #### [facility] [address] [place] [address] Dr. Patrica Nathan MANUAL DIFF REQ NO Normal [facility] Comment on above: Performed By: #### C BC #### [facility] [address] [place], [place] [id number] Dr. Patrica Nathan MCH (RBC) [Entitic mass] 29.4 pg Normal 25.9-34.0 [facility] Comment on above: Performed By: #### C BC #### [facility] [address] [place] [address] Dr. Patrica Nathan MCHC (RBC) [Mass/Vol] 33.0 g/dL Normal 29.9-35.2 [facility] Comment on above: Performed By: #### C BC #### [facility] [address] [place] [address] Dr. Patrica Nathan MCV (RBC) [Entitic vol] 89.3 fL Normal 80.0-94.0 [facility] Comment on above: Performed By: #### C BC #### [facility] [address] [place] [address] Dr. Patrica Nathan MONO # 0.6 103/ul Normal 0.3-0.8 [facility] Comment on above: Performed By: #### C BC #### [facility] [address] [place] [address] Dr. Patrica Nathan Monocytes/100 WBC (Bld) 10.8 % Normal 1.7-12.0 [facility] Comment on above: Performed By: #### C BC #### [facility] [address] [place] [address] Dr. Patrica Nathan NEUT # 3.7 103/ul Normal 1.4-6.5 [facility] Comment on above: Performed By: #### C BC #### [facility] [address] [place] [address] Dr. Patrica Nathan Neutrophils/100 WBC (Bld) 62.3 % Normal 43.0-75.0 [facility] Comment on above: Performed By: #### C BC #### [facility] [address] [place] [address] Dr. Patrica Nathan Platelet mean volume (Bld) [Entitic vol] 9.7 fL Normal 9.5-13.5 [facility] Comment on above: Performed By: #### C BC #### [facility] [address] [address] [address] Patrica Nathan PLT 192 103/ul Normal 150-450 [facility] Comment on above: Performed By: #### C BC #### [facility] [address] [address] [address] Patrica Nathan RBC 5.13 106/ul Normal 4.70-6.10 [facility] Comment on above: Performed By: #### C BC #### [facility] Laboratory [address] [address] [address] Patrica Nathan WBC 6.0 103/ul Normal 4.0-11.0 [facility] Comment on above: Performed By: #### C BC #### [facility] [place] [facility] [address] [place] [address] CHEST WO CONon [...] EVGENY MCCLAIN Date: 2022-07-01 07:16 Normal [facility] [place] [facility] PROF 14(COMP METB)on 022 Albumin [Mass/Vol] 4.0 g/dL Normal 3.4-5.0 [facility] Comment on above: Performed By: #### C MP, HSTROPN #### [facility] [place] [facility] [address] [address] [address] Patrica Nathan Albumin/Globulin [Mass ratio] 1.2 {ratio} Normal [facility] Comment on above: Performed By: #### C MP, HSTROPN #### [facility] [place] [facility] [address] [address] [address] Patrica Nathan ALP [Catalytic activity/Vol] 80 U/L Normal 46-116 [facility] Comment on above: Performed By: #### C MP, HSTROPN #### [facility] [place] [facility] [address] [address] [address] Patrica Nathan ALT [Catalytic activity/Vol] 30 U/L Normal 16-63 [facility] Comment on above: Performed By: #### C MP, HSTROPN #### [facility] [place] [facility] [address] [address] [address] Patrica Nathan Anion gap [Moles/Vol] 8.5 mmol/L Normal [facility] Comment on above: Performed By: #### C MP, HSTROPN #### [facility] [place] [facility] [address] [address] [address] Patrica Nathan AST [Catalytic activity/Vol] 26 U/L Normal 15-37 [facility] Comment on above: Performed By: #### C MP, HSTROPN #### [facility] [place] [facility] [address] [address] [address] Patrica aNthan Bilirubin [Mass/Vol] 1.4 mg/dL Critically high 0.2-1.0 [facility] Comment on above: Performed By: #### C MP, HSTROPN #### [facility] [place] [facility] [address] [address] [address] Patrica Nathan Calcium [Mass/Vol] 9.8 mg/dL Normal 8.5-10.1 [facility] [place] [facility] Comment on above: Performed By: #### C MP, HSTROPN #### [facility] [place] [facility] [address] [address] [address] Patrica Nathan Chloride [Moles/Vol] 104 mmol/L Normal 98-107 [facility] Comment on above: Performed By: #### C MP, HSTROPN #### [facility] [place] [facility] [address] [address] [address] Patrica Nathan CO2 [Moles/Vol] 30.8 mmol/L Normal 21.0-32.0 [facility] Comment on above: Performed By: #### C MP, HSTROPN #### [facility] [place] [facility] [address] [place] [address] Dr. Patrica Nathan Creatinine [Mass/Vol] 0.97 mg/dL Normal 0.70-1.30 [facility] Comment on above: Performed By: #### C MP, HSTROPN #### [facility] [place] [facility] [address] [place] [address] Dr. Patrica Nathan EGFR-AF EGYPTIAN >60 Normal >=60 [facility] Comment on above: Performed By: #### C MP, HSTROPN #### [facility] [place] [facility] [address] [place] [address] Dr. Patrica Nathan EGFR-NON AF EGYPTIAN >60 Normal >=60 [facility] Comment on above: Performed By: #### C MP, HSTROPN #### [facility] [place] [facility] [address] [place] [address] Dr. Patrica Nathan Globulin (S) [Mass/Vol] 3.4 g/dL Normal [facility] Comment on above: Performed By: #### C MP, HSTROPN #### [facility] [place] [facility] [address] [place] [address] Dr. Patrica Nathan Glucose [Mass/Vol] 110 mg/dL Critically high 74-106 [facility] Comment on above: Performed By: #### C MP, HSTROPN #### [facility] [place] [facility] [address] [place] [address] Dr. Patrica Nathan Potassium [Moles/Vol] 4.3 mmol/L Normal 3.5-5.1 [facility] Comment on above: Performed By: #### C MP, HSTROPN #### [facility] [place] [facility] [address] [place] [address] Dr. Patrica Nathan Protein [Mass/Vol] 7.4 g/dL Normal 6.4-8.2 [facility] [place] [facility] Comment on above: Performed By: #### C MP, HSTROPN #### [facility] [place] [facility] [address] [place] [address] Dr. Patrica Nathan Sodium [Moles/Vol] 139 mmol/L Normal 136-145 [facility] [place] [facility] Comment on above: Performed By: #### C MP, HSTROPN #### [facility] [place] [facility] [address] [place] [address] Dr. Patrica Nathan Urea nitrogen [Mass/Vol] 15.0 mg/dL Normal 7.0-18.0 [facility] [place] [facility] Comment on above: Performed By: #### C JV, HSTROPN #### [facility] [place] [facility] [address] [place] [address] Dr. Patrica Nathan Urea nitrogen/Creatinine [Mass ratio] 15.5 mg/mg Normal [facility] [place] [facility] Comment on above: Performed By: #### C JV, HSTROPN #### [facility] [place] [facility] [address] [place] [address] Dr. Patrica Nathan PROTIMEon 07-01-2022 INR Coag (PPP) [Relative time] 0.95 {INR} Normal [facility] Comment on above: Performed By: #### P T, PTT #### [facility] [place] [facility] [address] [place] [address] Dr. Patrica Nathan INR GUIDELINES SEE BELOW Normal [facility] [place] [facility] Comment on above: Result Comment: ODALIS RED INR: 2.0 - 3.0 CONDITIONS NOT LISTED BELOW 2.5 - 3.5 FOR PROSTHETIC HEART VALVE REPLACEMENT 2.5 - 3.5 RECURRENT THROMBOSIS Performed By: #### P T, PTT #### [facility] [place] [facility] [address] [place] [address] Dr. Patrica Nathan PT Coag (PPP) [Time] 10.3 s Normal 9.0-11.6 [facility] [place] [facility] Comment on above: Performed By: #### P T, PTT #### [facility] [place] [facility] [address] [place] [address] Dr. Patrica Nathan PTTon 07-01-2022 aPTT Coag (Bld) [Time] 27.1 s Normal 22.3-36.2 [facility] [place] [facility] Comment on above: Performed By: #### C JV, HSTROPN #### [facility] [place] [facility] [address] [address] [address] Patrica Nathan XR CHEST 1 Von [...] ANGELY REYNOLDS Date: 2022-07-01 06:33 Normal [facility] [place] [facility] CT CHEST WO CONon 06-29-2022 CT [...] BERHANE HERNANDEZ Date: 2022-06-29 16:01 Normal [facility] [place] [facility] XR RIBS RT PA Estella 2 [...] by: FABRICE WEST Date: 2022-06-29 15:08 Normal [facility] CBC AUTO DIFFon 05-02-2022 BASO # 0.1 103/ul Normal 0.0-0.1 [facility] Comment on above: Performed By: #### C BC #### [facility] [place] [facility] [address] [address] [address] Patrica Nathan Basophils/100 WBC (Bld) 0.8 % Normal 0.2-2.0 [facility] Comment on above: Performed By: #### C BC #### [facility] [place] [facility] [address] [address] [address] Patrica Nathan EO # 0.1 103/ul Normal 0.0-0.7 [facility] Comment on above: Performed By: #### C BC #### [facility] [place] [facility] [address] [place] [address] Dr. Patrica Nathan Eosinophils/100 WBC (Bld) 1.7 % Normal 0.9-7.0 [facility] Comment on above: Performed By: #### C BC #### [facility] [place] [facility] [address] [place] [address] Dr. Patrica Nathan Erythrocyte distribution width (RBC) [Ratio] 14.5 % Normal 11.0-15.0 [facility] Comment on above: Performed By: #### C BC #### [facility] [place] [facility] [address] [place] [address] Dr. Patrica Nathan Hematocrit (Bld) [Volume fraction] 45.6 % Normal 42.0-54.0 [facility] Comment on above: Performed By: #### C BC #### [facility] [place] [facility] [address] [place] [address] Dr. Patrica Nathan Hemoglobin (Bld) [Mass/Vol] 15.3 g/dL Normal 14.0-18.0 [facility] Comment on above: Performed By: #### C BC #### [facility] [place] [facility] [address] [place] [address] Dr. Patrica Nathan IG # 0.02 10e3/ul Normal 0.00-0.03 [facility] Comment on above: Performed By: #### C BC #### [facility] [place] [facility] [address] [place] [address] Dr. Patrica Nathan IG % 0.3 % Normal 0.0-0.5 [facility] Comment on above: Performed By: #### C BC #### [facility] [place] [facility] [address] [place] [address] Dr. Patrica Nathan LYMPH # 1.6 103/ul Normal 1.2-3.8 [facility] [place] [facility] Comment on above: Performed By: #### C BC #### [facility] [place] [facility] [address] [place] [address] Dr. Patrica Nathan Lymphocytes/100 WBC (Bld) 27.0 % Normal 20.5-60.0 [facility] [place] [facility] Comment on above: Performed By: #### C BC #### [facility] [place] [facility] [address] [place] [address] Dr. Patrica Nathan MANUAL DIFF REQ NO Normal [facility] Comment on above: Performed By: #### C BC #### [facility] [place] [facility] [address] [place] [address] Dr. Patrica Nathan MCH (RBC) [Entitic mass] 29.9 pg Normal 25.9-34.0 [facility] Comment on above: Performed By: #### C BC #### [facility] [place] [facility] [address] [place] [address] Dr. Patrica Nathan MCHC (RBC) [Mass/Vol] 33.6 g/dL Normal 29.9-35.2 [facility] Comment on above: Performed By: #### C BC #### [facility] [place] [facility] [address] [place] [address] Dr. Patrica Nathan MCV (RBC) [Entitic vol] 89.1 fL Normal 80.0-94.0 [facility] Comment on above: Performed By: #### C BC #### [facility] [place] [facility] [address] [place] [address] Dr. Patrica Nathan MONO # 0.6 103/ul Normal 0.3-0.8 [facility] Comment on above: Performed By: #### C BC #### [facility] [place] [facility] [address] [place] [address] Dr. Patrica Nathan Monocytes/100 WBC (Bld) 9.8 % Normal 1.7-12.0 [facility] Comment on above: Performed By: #### C BC #### [facility] [place] [facility] [address] [place] [address] Dr. Patrica Nathan NEUT # 3.6 103/ul Normal 1.4-6.5 [facility] [place] [facility] Comment on above: Performed By: #### C BC #### [facility] [place] [facility] [address] [place] [address] Dr. Patrica Nathan Neutrophils/100 WBC (Bld) 60.4 % Normal 43.0-75.0 [facility] [place] [facility] Comment on above: Performed By: #### C BC #### [facility] [place] [facility] [address] [place] [address] Dr. Patrica Nathan Platelet mean volume (Bld) [Entitic vol] 9.3 fL Critically low 9.5-13.5 [facility] [place] [facility] Comment on above: Performed By: #### C BC #### [facility] [place] [facility] [address], [place] [address] Dr. Patrica Nathan PLT 183 103/ul Normal 150-450 [facility] [place] [facility] Comment on above: Performed By: #### C BC #### [facility] [place] [facility] [address] [place], [place] [address] Dr[address] Patrica Nathan RBC 5.12 106/ul Normal 4.70-6.10 [facility] Comment on above: Performed By: #### C BC #### [facility] [place] [facility] [address] [place], [place] [address] [address] Patrica Nathan WBC 6.0 103/ul Normal 4.0-11.0 [facility] Comment on above: Performed By: #### C BC #### [facility] [place] [facility] [address] [address] [address] ABD/PELV WO W [...] EVGENY MCCLAIN Date: 2022-05-02 10:56 Normal [facility] [place] [facility] PROF 14(COMP METB)on 022 Albumin [Mass/Vol] 4.1 g/dL Normal 3.4-5.0 [facility] Comment on above: Performed By: #### C MP, HSTROPN #### [facility] [place] [facility] [address] [address] [address] Patrica Nathan Albumin/Globulin [Mass ratio] 1.4 {ratio} Normal [facility] Comment on above: Performed By: #### C MP, HSTROPN #### [facility] [place] [facility] [address] [address] [address] Patrica Nathan ALP [Catalytic activity/Vol] 71 U/L Normal 46-116 [facility] Comment on above: Performed By: #### C MP, HSTROPN #### [facility] [place] [facility] [address] [address] [address] Patrica Nathan ALT [Catalytic activity/Vol] 48 U/L Normal 16-63 [facility] Comment on above: Performed By: #### C MP, HSTROPN #### [facility] [place] [facility] [address] [address] [address] Patrica Nathan Anion gap [Moles/Vol] 8.1 mmol/L Normal [facility] Comment on above: Performed By: #### C MP, HSTROPN #### [facility] [place] [facility] [address] [address] [address] Patrica Nathan AST [Catalytic activity/Vol] 31 U/L Normal 15-37 [facility] Comment on above: Performed By: #### C MP, HSTROPN #### [facility] [place] [facility] [address] [address] [address] Patrica Nathan Bilirubin [Mass/Vol] 1.6 mg/dL Critically high 0.2-1.0 [facility] Comment on above: Performed By: #### C MP, HSTROPN #### [facility] [place] [facility] [address] [place] [address] Dr. Patrica Nathan Calcium [Mass/Vol] 9.4 mg/dL Normal 8.5-10.1 [facility] [place] [facility] Comment on above: Performed By: #### C MP, HSTROPN #### [facility] [place] [facility] [address] [place] [address] Dr. Patrica Nathan Chloride [Moles/Vol] 105 mmol/L Normal 98-107 [facility] [place] [facility] Comment on above: Performed By: #### C MP, HSTROPN #### [facility] [place] [facility] [address] [place] [address] Dr. Patrica Nathan CO2 [Moles/Vol] 29.0 mmol/L Normal 21.0-32.0 [facility] [place] [facility] Comment on above: Performed By: #### C JV, HSTROPN #### [facility] [place] [facility] [address] [place] [address] Dr. Patrica Nathan Creatinine [Mass/Vol] 1.01 mg/dL Normal 0.70-1.30 [facility] [place] [facility] Comment on above: Performed By: #### C JV, HSTROPN #### [facility] [place] [facility] [address] [place] [address] Dr. Patrica Nathan EGFR-AF EGYPTIAN >60 Normal >=60 [facility] [place] [facility] Comment on above: Performed By: #### C JV, HSTROPN #### [facility] [place] [facility] [address] [place] [address] Dr. Patrica Nathan EGFR-NON AF EGYPTIAN >60 Normal >=60 [facility] [place] [facility] Comment on above: Performed By: #### C MP, HSTROPN #### [facility] [place] [facility] [address] [place] [address] Dr. Patrica Nathan Globulin (S) [Mass/Vol] 2.9 g/dL Normal [facility] [place] [facility] Comment on above: Performed By: #### C MP, HSTROPN #### [facility] [place] [facility] [address] [place] [address] Dr. Patrica Nathan Glucose [Mass/Vol] 106 mg/dL Normal 74-106 [facility] [place] [facility] Comment on above: Performed By: #### C JV, HSTROPN #### [facility] [place] [facility] [address] [address] [address] Patrica Nathan Potassium [Moles/Vol] 4.1 mmol/L Normal 3.5-5.1 [facility] Comment on above: Performed By: #### C JV, HSTROPN #### [facility] [place] [facility] [address] [place] [address] Dr. Patrica Nathan Protein [Mass/Vol] 7.0 g/dL Normal 6.4-8.2 [facility] [place] [facility] Comment on above: Performed By: #### C JV, HSTROPN #### [facility] [place] [facility] [address] [place] [address] Dr. Patrica Nathan Sodium [Moles/Vol] 138 mmol/L Normal 136-145 [facility] Comment on above: Performed By: #### C JV HSTROPN #### [facility] [place] [facility] [address] [place] [address] Dr. Patrica Nathan Urea nitrogen [Mass/Vol] 18.0 mg/dL Normal 7.0-18.0 [facility] [place] [facility] Comment on above: Performed By: #### C JV, HSTROPN #### [facility] [place] [facility] [address] [place] [address] Dr. Patrica Nathan Urea nitrogen/Creatinine [Mass ratio] 17.8 mg/mg Normal [facility] Comment on above: Performed By: #### C JV, HSTROPN #### [facility] [place] [facility] [address] [place] [address] Dr. Patrica Nathan TSHon 05-02-2022 TSH 2.409 uIU/mL Normal 0.358-3.74 0 [facility] [place] [facility] Comment on above: Performed By: #### T SH #### [facility] [place] [facility] [address] [place] [address] Dr. Patrica Nathan XR CHEST 2 Von [...] EVGENY MCCLAIN Date: 2022-05-02 07:44 Normal [facility] [place] [facility] Covid-19 PCR (CVDTB)on 01-16 SARS-CoV-2 (COVID-19) RNA MARIANNE+probe Ql (Unsp spec) Not detected Normal NOT DETECTED [facility] [place] [facility] Comment on above: Result Comment: This test is not yet approved or cleared by the [place] FDA. When there are no FDA-approved or cleared tests available, and other criteria are met, FDA can make tests available under an emergency access mechanism called an Emergency Use Authorization (EUA). The EUA for this test is supported by the [place] of Health and Human Service's (HHS's) declaration [...] consistent with SARS-CoV-2. Performed By: #### [facility] #### [facility] [place] [facility] [address] [place] [address] Dr. Patrica Nathan Vital Signs Date Time Vital Sign Value Performing Clinician Facility 09-01-2024 08:53-0500 Body height 187.96 cm [facility] 09-01-2024 08:53-0500 Body mass index (BMI) [Ratio] 23.1 kg/m2 [facility] 09-01-2024 08:53-0500 Body weight 81.87 kg [facility] 01-16-2025 08:53-0500 Diastolic blood pressure 57 mm[Hg] [facility] 09-01-2024 08:53-0500 Heart rate 69 /min [facility] 09-01-2024 08:53-0500 Respiratory rate 12 /min [facility] 09-01-2024 08:53-0500 Systolic blood pressure 116 mm[Hg] [facility] 07-11-2024 11:39-0500 Body height 187.96 cm [facility] 07-11-2024 11:39-0500 Body mass index (BMI) [Ratio] 23.3 kg/m2 [facility] 07-11-2024 11:39-0500 Body weight 82.27 kg [facility] 07-11-2024 11:39-0500 Diastolic blood pressure 72 mm[Hg] [facility] 07-11-2024 11:39-0500 Heart rate 68 /min [facility] 07-11-2024 11:39-0500 Respiratory rate 12 /min [facility] 07-11-2024 11:39-0500 Systolic blood pressure 144 mm[Hg] [facility] 05-04-2024 09:12-0400 Body height 187.96 cm [facility] 05-04-2024 09:12-0400 Body mass index (BMI) [Ratio] 23.1 kg/m2 [facility] 05-04-2024 09:12-0400 Body weight 81.76 kg [facility] 05-04-2024 09:12-0400 Diastolic blood pressure 66 mm[Hg] [facility] 05-04-2024 09:12-0400 Heart rate 56 /min [facility] 05-04-2024 09:12-0400 Respiratory rate 12 /min [facility] 05-04-2024 09:12-0400 Systolic blood pressure 132 mm[Hg] [facility] 03-19-2024 09:03-0400 Body height 187.96 cm [facility] 03-19-2024 09:03-0400 Body mass index (BMI) [Ratio] 23.1 kg/m2 [facility] 03-19-2024 09:03-0400 Body temperature 99.8 [degF] [facility] 03-19-2024 09:030400 Body weight 81.76 kg [facility] 03-19-2024 09:03-0400 Diastolic blood pressure 63 mm[Hg] [facility] 03-19-2024 09:03-0400 Heart rate 73 /min [facility] 03-19-2024 09:03-0400 SaO2% (BldA) [Mass fraction] 97 % [facility] 03-19-2024 09:03-0400 Systolic blood pressure 118 mm[Hg] [facility] 03-14-2024 10:10-0400 Body height 187.96 cm [facility] 03-14-2024 10:10-0400 Body mass index (BMI) [Ratio] 23.4 kg/m2 [facility] 03-14-2024 10:10-0400 Body weight 82.78 kg [facility] 03-14-2024 10:10-0400 Diastolic blood pressure 80 mm[Hg] [facility] 03-14-2024 10:10-0400 Heart rate 58 /min [facility] 03-14-2024 10:10-0400 Respiratory rate 12 /min [facility] 03-14-2024 10:10-0400 Systolic blood pressure 135 mm[Hg] [facility] 01-28-2024 09:07-0400 Body height 187.96 cm [facility] 01-28-2024 09:07-0400 Body mass index (BMI) [Ratio] 23.4 kg/m2 [facility] 01-28-2024 09:07-0400 Body weight 82.72 kg [facility] 01-28-2024 09:07-0400 Diastolic blood pressure 76 mm[Hg] [facility] 01-28-2024 09:07-0400 Heart rate 58 /min [facility] 01-28-2024 09:07-0400 Respiratory rate 12 /min [facility] 01-28-2024 09:07-0400 Systolic blood pressure 138 mm[Hg] [facility] 11-27-2023 08:33-0400 Body height 187.96 cm [facility] 11-27-2023 08:33-0400 Body mass index (BMI) [Ratio] 23.1 kg/m2 [facility] 11-27-2023 08:33-0400 Body weight 81.7 kg [facility] 11-27-2023 08:33-0400 Diastolic blood pressure 61 mm[Hg] [facility] 11-27-2023 08:33-0400 Heart rate 63 /min [facility] 11-27-2023 08:33-0400 Respiratory rate 12 /min [facility] 11-27-2023 08:33-0400 Systolic blood pressure 114 mm[Hg] [facility] 11-06-2023 15:24-0400 Body height 187.96 cm [facility] 11-06-2023 15:24-0400 Body mass index (BMI) [Ratio] 23.1 kg/m2 [facility] 11-06-2023 15:24-0400 Body weight 81.64 kg [facility] 11-06-2023 15:24-0400 Diastolic blood pressure 64 mm[Hg] [facility] 11-06-2023 15:24-0400 Heart rate 65 /min [facility] 11-06-2023 15:24-0400 Respiratory rate 12 /min [facility] 11-06-2023 15:24-0400 Systolic blood pressure 134 mm[Hg] [facility] 10-28-2023 11:01-0400 Body height 187.96 cm [facility] 10-28-2023 11:01-0400 Body mass index (BMI) [Ratio] 23.2 kg/m2 [facility] 10-28-2023 11:01-0400 Body weight 82.21 kg [facility] 10-28-2023 11:01-0400 Diastolic blood pressure 77 mm[Hg] [facility] 10-28-2023 11:01-0400 Heart rate 59 /min [facility] 10-28-2023 11:01-0400 Respiratory rate 12 /min [facility] 10-28-2023 11:01-0400 Systolic blood pressure 144 mm[Hg] [facility] 09-15-2023 16:00-0500 Body height 187.96 cm [employer] Other [facility] 09-15-2023 16:00-0500 Body mass index (BMI) [Ratio] 23.75 kg/m2 [employer] Other [facility] [employer] Other 09-15-2023 16:00-0500 Body weight 83.92 kg [employer] Other [facility] [employer] Other 09-15-2023 16:00-0500 Body weight 83.91 kg [facility] 09-15-2023 16:00-0500 Diastolic blood pressure 73 mm[Hg] [employer] Other [facility] 09-15-2023 16:00-0500 Respiratory rate 12 /min [employer] Other [facility] [employer] Other 09-15-2023 16:00-0500 Systolic blood pressure 158 mm[Hg] [employer] Other [facility] 08-28-2023 10:00-0500 Body height 187.96 cm [employer] Other [facility] 08-28-2023 10:00-0500 Body mass index (BMI) [Ratio] 23.42 kg/m2 [employer] Other [facility] [employer] Other 08-28-2023 10:00-0500 Body weight 82.74 kg [employer] Other [facility] [employer] Other 08-28-2023 10:00-0500 Body weight 82.73 kg [facility] 08-28-2023 10:00-0500 Diastolic blood pressure 66 mm[Hg] [employer] Other [facility] 08-28-2023 10:00-0500 Respiratory rate 12 /min [employer] Other [facility] [employer] Other 08-28-2023 10:00-0500 Systolic blood pressure 117 mm[Hg] [employer] Other [facility] 07-28-2023 13:13-0500 Blood Pressure Location [facility] 07-28-2023 13:13-0500 Diastolic blood pressure 72 mm[Hg] [facility] [place] 07-28-2023 13:13-0500 Heart rate 72 /min [facility] [place] 07-28-2023 13:13-0500 Respiratory rate 16 /min [facility] [place] 07-28-2023 13:13-0500 Systolic blood pressure 118 mm[Hg] Angely NILL [facility] [facility] [place] 07-01-2023 10:15-0500 Body height 187.96 cm Cisco Ball Other [facility] [employer] Other 07-01-2023 10:15-0500 Body mass index (BMI) [Ratio] 23.13 kg/m2 [employer] Ball Other [employer] Other 07-01-2023 10:15-0500 Body weight 81.74 kg Cisco Ball Other [employer] Other 07-01-2023 10:15-0500 Diastolic blood pressure 70 mm[Hg] Cisco Ball Other [employer] Other 07-01-2023 10:15-0500 Respiratory rate 12 /min Cisco Ball Other [employer] Other 07-01-2023 10:15-0500 Systolic blood pressure 135 mm[Hg] Cisco Ball Other [facility] [employer] Other 06-20-2023 02:33-0400 Diastolic blood pressure 74 mm[Hg] DO Cisco Ball Work Phone: [facility] 06-20-2023 02:33-0400 Heart rate 78 /min DO Cisco Ball Work Phone: [facility] 06-20-2023 02:33-0400 Respiratory rate 16 /min DO Cisco Ball Work Phone: [facility] 06-20-2023 02:33-0400 SaO2% (BldA) [Mass fraction] 96 % DO Cisco Ball Work Phone: [facility] 06-20-2023 02:33-0400 Systolic blood pressure 158 mm[Hg] DO Cisco Ball Work Phone: [facility] 06-19-2023 20:47-0400 Body height 187.96 cm DO Cisco Ball Work Phone: [facility] 06-19-2023 20:47-0400 Body temperature 97.9 [degF] DO Cisco Ball Work Phone: [facility] 06-19-2023 20:47-0400 Body weight 80.3 kg DO Cisco Ball Work Phone: [facility] 06-17-2023 15:45-0400 Body height 187.96 cm Cisco Ball Other [facility] [employer] Other 06-17-2023 15:45-0400 Body mass index (BMI) [Ratio] 23.65 kg/m2 Cisco Ball Other [facility] [employer] Other 06-17-2023 15:45-0400 Body temperature 97.3 [degF] Cisco Ball Other [facility] [employer] Other 06-17-2023 15:45-0400 Body weight 83.55 kg Cisco Ball Other [employer] Other 06-17-2023 15:45-0400 Diastolic blood pressure 57 mm[Hg] Cisco Ball Other [employer] Other 06-17-2023 15:45-0400 Respiratory rate 12 /min Cisco Ball Other [employer] Other 06-17-2023 15:45-0400 Systolic blood pressure 128 mm[Hg] Cisco Ball Other [employer] Other 05-20-2023 08:45-0400 Body height 187.96 cm Cisco Ball Other [employer] Other 05-20-2023 08:45-0400 Body mass index (BMI) [Ratio] 23.62 kg/m2 Cisco Ball Other [employer] Other 05-20-2023 08:45-0400 Body weight 83.46 kg Cisco Ball Other [employer] Other 05-20-2023 08:45-0400 Diastolic blood pressure 82 mm[Hg] Cisco Ball Other [employer] Other 05-20-2023 08:45-0400 Respiratory rate 12 /min Cisco Ball Other [employer] Other 05-20-2023 08:45-0400 Systolic blood pressure 121 mm[Hg] Cisco Ball Other [employer] Other 04-21-2023 11:30-0400 Body height 187.96 cm Cisco Ball Other [employer] Other 04-21-2023 11:30-0400 Body mass index (BMI) [Ratio] 23.34 kg/m2 Cisco Ball Other [place] [employer] Other 04-21-2023 11:30-0400 Body weight 82.46 kg Cisco Ball Other [place] [employer] Other 04-21-2023 11:30-0400 Diastolic blood pressure 65 mm[Hg] Cisco Ball Other [place] [employer] Other 04-21-2023 11:30-0400 Respiratory rate 12 /min Cisco Ball Other [place] [employer] Other 04-21-2023 11:30-0400 Systolic blood pressure 165 mm[Hg] Cisco Ball Other [place] [employer] Other 03-01-2023 08:00-0400 Diastolic blood pressure 82 mm[Hg] DO Cisco Ball Work Phone: [facility] 03-01-2023 08:00-0400 Heart rate 62 /min DO Cisco Ball Work Phone: [facility] 03-01-2023 08:00-0400 Respiratory rate 16 /min DO Cisco Ball Work Phone: [facility] 03-01-2023 08:00-0400 SaO2% (BldA) [Mass fraction] 96 % DO Cisco Ball Work Phone: [facility] 03-01-2023 08:00-0400 Systolic blood pressure 146 mm[Hg] DO Cisco Ball Work Phone: [facility] 03-01-2023 06:58-0400 Body height 187.96 cm DO Cisco Ball Work Phone: [facility] 03-01-2023 06:58-0400 Body weight 84.8 kg DO Cisco Ball Work Phone: [facility] 02-24-2023 08:30-0400 Body height 187.96 cm Cisco Ball Other [employer] Other 02-24-2023 08:30-0400 Body mass index (BMI) [Ratio] 24.21 kg/m2 Cisco Ball Other [employer] Other 02-24-2023 08:30-0400 Body weight 85.55 kg Cisco Ball Other [employer] Other 02-24-2023 08:30-0400 Diastolic blood pressure 67 mm[Hg] Cisco Ball Other [employer] Other 02-24-2023 08:30-0400 Respiratory rate 12 /min Cisco Ball Other [employer] Other 02-24-2023 08:30-0400 Systolic blood pressure 112 mm[Hg] Cicso Ball Other [employer] Other 11-21-2022 11:45-0400 Body height 187.96 cm Cisco Ball Other [employer] Other 11-21-2022 11:45-0400 Body mass index (BMI) [Ratio] 24.98 kg/m2 Cisco Ball Other [employer] Other 11-21-2022 11:45-0400 Body weight 88.27 kg Cisco Ball Other [employer] Other 11-21-2022 11:45-0400 Diastolic blood pressure 73 mm[Hg] Cisco Ball Other [employer] Other 11-21-2022 11:45-0400 Respiratory rate 12 /min Cisco Ball Other [employer] Other 11-21-2022 11:45-0400 Systolic blood pressure 147 mm[Hg] Cisco Ball Other [employer] Other 10-22-2022 08:30-0500 Body height 187.96 cm Cisco Ball Other [employer] Other 10-22-2022 08:30-0500 Body mass index (BMI) [Ratio] 24.73 kg/m2 Cisco Ball Other [employer] Other 10-22-2022 08:30-0500 Body weight 87.36 kg Cisco Ball Other [employer] Other 10-22-2022 08:30-0500 Diastolic blood pressure 64 mm[Hg] Cisco Ball Other [employer] Other 10-22-2022 08:30-0500 Respiratory rate 12 /min Cisco Ball Other [employer] Other 10-22-2022 08:30-0500 Systolic blood pressure 118 mm[Hg] Cisco Ball Other [employer] Other 10-07-2022 09:45-0500 Body height 187.96 cm Cisco Ball Other [employer] Other 10-07-2022 09:45-0500 Body mass index (BMI) [Ratio] 24.31 kg/m2 Cisco Ball Other [employer] Other 10-07-2022 09:45-0500 Body weight 85.91 kg Cisco Ball Other [employer] Other 10-07-2022 09:45-0500 Diastolic blood pressure 70 mm[Hg] Cisco Ball Other [employer] Other 10-07-2022 09:45-0500 Respiratory rate 12 /min Cisco Ball Other [facility] [employer] Other 10-07-2022 09:45-0500 Systolic blood pressure 122 mm[Hg] Cisco Ball Other [facility] [employer] Other 08-27-2022 10:48-0500 Diastolic blood pressure 82 mm[Hg] DO Cisco Ball Work Phone: [facility] 08-27-2022 10:48-0500 Heart rate 64 /min DO Cisco Ball Work Phone: [facility] 08-27-2022 10:48-0500 Respiratory rate 16 /min DO Cisco Ball Work Phone: [facility] 08-27-2022 10:48-0500 SaO2% (BldA) [Mass fraction] 96 % DO Cisco Ball Work Phone: [facility] 08-27-2022 10:48-0500 Systolic blood pressure 146 mm[Hg] DO Cisco Ball Work Phone: [facility] 08-27-2022 09:01-0500 Body height 187.96 cm DO Cisco Ball Work Phone: [facility] 08-27-2022 09:01-0500 Body temperature 97.8 [degF] DO Cisco Ball Work Phone: [facility] 08-27-2022 09:01-0500 Body weight 86.63 kg DO Cisco Ball Work Phone: [facility] Encounters Encounter Date Encounter Type Care Provider Facility Start: 09-01-2024 End: 09-01-2024 ambulatory [facility] Work Phone: Start: 09-01-2024 End: 09-01-2024 Patient encounter procedure [facility] Work Phone: Start: 08-29-2024 Patient encounter procedure [facility] Start: 07-28-2024 End: 07-28-2024 Refill Trista Shi COT Work Phone: [facility] Comment on above: 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, moderate stage (CMS/HCC) Start: 07-11-2024 End: 07-11-2024 Patient encounter procedure [facility] Work Phone: Start: 07-05-2024 End: 07-05-2024 Bamboo flowsheet Miguel Angel Jacobsen DO Work Phone: [facility] Start: 07-05-2024 End: 07-05-2024 Bamboo flowsheet Miguel Angel Jacobsen DO Work Phone: [facility] Start: 07-05-2024 End: 07-05-2024 ambulatory MIGUEL ANGEL JACOBSEN Not Available Start: 06-12-2024 End: 06-13-2024 Refill Miguel Angel Jacobsen DO Work Phone: [facility] Comment on above: 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, moderate stage (CMS/HCC) (Primary Dx) Start: 05-04-2024 End: 05-04-2024 ambulatory [facility] Work Phone: Start: 05-04-2024 End: 05-04-2024 Patient encounter procedure [facility] Work Phone: Start: 03-19-2024 End: 03-19-2024 ambulatory [facility] Work Phone: Start: 03-19-2024 End: 03-19-2024 Patient encounter procedure [facility] Work Phone: Start: 03-15-2024 Non-patient / Non-visit [facility] Work Phone: Start: 03-14-2024 End: 03-14-2024 ambulatory [facility] Work Phone: Start: 03-14-2024 End: 03-14-2024 Patient encounter procedure [facility] Work Phone: Start: 02-24-2024 End: 02-24-2024 ambulatory MIGUEL ANGEL JACOBSEN Not Available Start: 02-22-2024 End: 02-22-2024 ambulatory CHEYANNE Foy APLING Not Available Start: 01-28-2024 End: 01-28-2024 ambulatory [facility] Work Phone: Start: 01-28-2024 End: 01-28-2024 Patient encounter procedure [facility] Work Phone: Start: 01-22-2024 Non-patient / Non-visit [facility] Work Phone: Start: 01-08-2024 End: 01-08-2024 ambulatory MIGUEL ANGEL JACOBSEN Not Available Start: 12-14-2023 End: 12-14-2023 ambulatory AB [facility] Start: 11-27-2023 End: 11-27-2023 ambulatory [facility] Work Phone: Start: 11-27-2023 End: 11-27-2023 Patient encounter procedure [facility] Work Phone: Start: 11-16-2023 Non-patient / Non-visit [facility] Work Phone: Start: 11-06-2023 End: 11-06-2023 ambulatory [facility] Work Phone: Start: 11-06-2023 End: 11-06-2023 Patient encounter procedure [facility] Work Phone: Start: 10-28-2023 End: 10-28-2023 Patient encounter procedure [facility] Work Phone: Start: 10-05-2023 Non-patient / Non-visit [facility] Mis Descuentos Work Phone: Start: 09-21-2023 End: 09-21-2023 ambulatory Cisco Mcadams Other [employer] Other Start: 09-21-2023 Telephone encounter Cisco Mcadams [facility] Start: 09-16-2023 End: 09-16-2023 ambulatory Cisco Mcadams Other [employer] Other Start: 09-16-2023 Telephone encounter Cisco Mcadams FP [facility] Start: 09-15-2023 End: 09-15-2023 ambulatory Cisco Mcadams Other [employer] Other Start: 09-15-2023 Office outpatient visit 15 minutes Cisco Mcadams [facility] Start: 09-15-2023 End: 09-15-2023 Patient encounter procedure [facility]- Start: 09-04-2023 End: 09-04-2023 ambulatory MIGUEL ANGEL JACOBSEN Not Available Start: 09-02-2023 End: 09-02-2023 Patient encounter procedure Angely GAGE General Surgery Too/Alisha [facility] Start: 08-30-2023 End: 08-30-2023 ambulatory Cisco Mcadams Other [employer] Other Start: 08-30-2023 Telephone encounter Cisco Mcadams [facility] Start: 08-28-2023 End: 08-28-2023 ambulatory Cisco Mcadams Other [employer] Other Start: 08-28-2023 Patient encounter procedure Cisco Mcadams [facility] Start: 08-28-2023 Telephone encounter Cisco Mcadams [facility] Start: 08-28-2023 End: 08-28-2023 Patient encounter procedure [facility] Work Phone: Start: 08-26-2023 ambulatory Angely MCCORMICKL Facility :[facility] Riojas Start: 08-26-2023 End: 08-26-2023 Patient encounter procedure Angely R NILL General Surgery Nill/Said [place] Start: 08-24-2023 End: 08-24-2023 ambulatory Cisco Mcadams Other [employer] Other Start: 08-24-2023 Telephone encounter Cisco Mcadams CYNDI [facility] Start: 08-23-2023 End: 08-23-2023 ambulatory Cisco Mcadams Other [employer] Other Start: 08-23-2023 Telephone encounter Cisco Mcadams CYNDI [facility] Start: 07-28-2023 End: 07-29-2023 ambulatory Angely R NILL Facility:IRVIN Riojas Start: 07-28-2023 End: 07-28-2023 Patient encounter procedure Angely R NILL General Surgery Nill/[facility] [place] Start: 07-01-2023 End: 07-01-2023 ambulatory Cisco Mcadams Other [employer] Other Start: 07-01-2023 Transitional care manage srvc 14 day discharge Cisco Mcadams [facility] Start: 06-26-2023 ambulatory Angely MCCORMICKL Facility:[facility] Riojas Start: 06-24-2023 End: 06-24-2023 ambulatory Cisco Mcadams Other [employer] Other Start: 06-24-2023 Telephone encounter Cisco Mcadams CYNDI [facility] Start: 06-20-2023 End: 06-22-2023 Evaluation and management of inpatient Berhaneeddy Mondragonct Facility:[facility] Start: 06-20-2023 Evaluation and management of inpatient DO Cisco Mcadams Work Phone: [facility] [place] [facility] Work Phone: Start: 06-20-2023 observation encounter DO Shaji Mcadams Work Phone: [facility] Work Phone: Start: 06-19-2023 End: 06-19-2023 ambulatory Cisco Ball Other [employer] Other Start: 06-19-2023 Telephone encounter Cisco Ball FP [facility] Start: 06-18-2023 End: 06-18-2023 ambulatory Cisco Ball Other [employer] Other Start: 06-18-2023 Telephone encounter Cisco Ball FP [facility] Start: 06-17-2023 End: 06-17-2023 ambulatory Cisco Ball Other [employer] Other Start: 06-17-2023 Office outpatient visit 15 minutes Cisco Ball [facility] Start: 06-17-2023 Telephone encounter Cisco Ball FP [facility] Start: 06-02-2023 End: 06-02-2023 ambulatory Cisco Ball Other [employer] Other Start: 06-02-2023 Telephone encounter Cisco Ball FP [facility] Start: 05-20-2023 End: 05-20-2023 ambulatory Cisco Ball Other [employer] Other Start: 05-20-2023 Office outpatient visit 25 minutes Cisco Ball [facility] Start: 05-11-2023 End: 05-11-2023 ambulatory Cisco Ball Other [employer] Other Start: 05-11-2023 Telephone encounter Cisco Ball FP [facility] Start: 04-27-2023 End: 04-27-2023 ambulatory Cisco Ball Other [employer] Other Start: 04-27-2023 Telephone encounter Cisco Ball FP [facility] Start: 04-23-2023 End: 04-23-2023 ambulatory Cisco Ball Other [employer] Other Start: 04-23-2023 Telephone encounter Cisco Mcadams [facility] Start: 04-21-2023 End: 04-21-2023 ambulatory Cisco Mcadams Other [employer] Other Start: 04-21-2023 Office outpatient visit 25 minutes Cisco Mcadams [facility] Start: 03-16-2023 End: 03-16-2023 ambulatory Cisco Mcadams Other [employer] Other Start: 03-16-2023 Telephone encounter Cisco Mcadams [facility] Start: 03-04-2023 Telephone encounter Cisco Mcadams [facility] Start: 03-04-2023 End: 03-04-[address] Cisco Mcadams [facility] [employer] Other Start: 03-03-2023 End: 03-03-2023 ambulatory Cisco Mcadams Other [employer] Other Start: 03-03-2023 Telephone encounter Cisco HANNA [facility] Start: 03-01-2023 End: 03-02-[address] Cisco Mcadams Facility:[id number] Start: 03-01-2023 Evaluation and management of inpatient DO Cisco Mcadams Work Phone: [facility] Work Phone: Start: 03-01-2023 observation encounter DO Shaji Mcadams Work Phone: [facility] Work Phone: Start: 02-24-2023 End: 02-24-2023 ambulatory Cisco Mcadams Other [employer] Other Start: 02-24-2023 Office outpatient visit 25 minutes Cisco Mcadams [facility] Start: 01-20-2023 End: 01-20-2023 ambulatory Cisco Mcadams Other [employer] Other Start: 01-20-2023 Telephone encounter Cisco HANNA [facility] Start: 11-21-2022 End: 11-21-2022 ambulatory Cisco Mcadams Other [employer] Other Start: 11-21-2022 Office outpatient visit 15 minutes Cisco Mcadams [facility] Start: 10-22-2022 End: 10-22-2022 ambulatory Cisco Mcadams Other [employer] Other Start: 10-22-2022 Office outpatient visit 25 minutes Cisco Mcadams [facility] Start: 10-12-2022 End: 10-12-2022 ambulatory Cisco Mcadams Facility:[facility] Start: 10-12-2022 End: 10-12-2022 ambulatory DO Cisco Mcadams Work Phone: [facility] Work Phone: Start: 10-12-2022 End: 10-12-2022 Patient encounter procedure DO Cisco Mcadams Work Phone: [facility] [place] Work Phone: Start: 10-07-2022 End: 10-07-2022 ambulatory Cisco Mcadams Other [employer] Other Start: 10-07-2022 Office outpatient visit 15 minutes Cisco Mcadams [facility] Start: 09-14-2022 End: 09-14-[address] CISCO MCADAMS Facility:[facility]1 Start: 09-08-2022 End: 09-08-2022 ambulatory Imad Asaad Other [employer] Other Start: 09-08-2022 Telephone encounter Imad Asaad [facility] Start: 09-05-2022 End: 09-05-2022 ambulatory Cisco Mcadams Other [employer] Other Start: 09-05-2022 Telephone encounter Cisco HANNA [facility] Start: 09-03-2022 End: 09-03-2022 ambulatory Imad Asaad Other [employer] Other Start: 09-03-2022 Telephone encounter Imad Asaad [facility] Start: 09-01-2022 End: 09-01-2022 ambulatory Imad Asaad Other [employer] Other Start: 09-01-2022 Telephone encounter Imad Asaad [facility] [employer] Start: 08-27-2022 Telephone encounter Stalin Fletcher [facility] Start: 08-27-2022 End: 08-27-2022 ambulatory Cisco Mcadams Facility:[facility] Start: 08-27-2022 End: 08-27-2022 Admission to same day surgery center DO Cisco Mcadams Work Phone: [facility] Work Phone: Start: 08-27-2022 End: 08-27-2022 ambulatory DO Cisco Mcadams Work Phone: [facility] Work Phone: Start: 08-22-2022 End: 08-22-2022 ambulatory Imad Asaad Other [employer] Other Start: 08-22-2022 Telephone encounter Imad Asaad [facility] [employer] Start: 08-20-2022 End: 08-20-2022 ambulatory Cisco Mcadams Other [employer] Other Start: 08-20-2022 Telephone encounter Cisco Mcadams [facility] Start: 08-19-2022 End: 08-19-2022 ambulatory Cisco Mcadams Other [employer] Other Start: 08-19-2022 Telephone encounter Cisco Mcadams [facility] Start: 07-28-2022 End: 07-29-[address] [...] xm uni/bi w/interp extended exam Miguel Angel Jacobsen DO Work Phone: Start: 07-05-2024 End: 07-05-2024 Ophth medical xm&eval comprhnsv estab pt 1/> Primary open angle glaucoma (POAG) of both eyes, moderate stage (CMS/HCC) Miguel Angel Jacobsen DO Work Phone: Comment on above: Primary [...] Colonoscopy Angely GAGE Start: 08-27-2022 Esophagogastroduodenoscopy Angely GAGE Start: 07-28-2022 PSA screening MIGUEL ANGEL JACOBSEN Comment on above: Performed By: #### PSASC #### [facility] [address] [address] [address] Patrica Nathan Cardiac catheterization Renato GAGE History of operative procedure on shoulder Angely GAGE Comment on above: x3 Repair of right inguinal hernia Angely MCCORMICKSalvador Plan of Treatment Date Care Activity Detail Author Start: 01-03-2025 End: 01-03-2025 Patient encounter procedure 01/03/2025 9:45 AM EDT Office Visit [facility] [address] [place] [address] Miguel Angel Jacobsen DO [address] [place] [address] [facility] Start: 07-05-2024 End: 07-05-2024 Patient encounter procedure [facility] Comment on above: Arrived Start: 04-17-2024 Influenza vaccination Influenza Vacc ine (#1) [facility] Start: 06-20-2023 Plain chest X-ray XR chest 2V* [facility] Start: 06-20-2023 XR Chest [address] [facility] Start: 06-20-2023 Hospital admission [facility] Start: 06-20-2023 [facility] Start: 06-20-2023 CT of head without contrast CT head/brain wo con [facility] Start: 06-20-2023 CT Unspecified body region WO contrast [facility] Start: 03-01-2023 Physical therapy procedure [facility] Start: 03-01-2023 Referral to occupati onal therapist [facility] Start: 03-01-2023 Referral to neurologist [facility] Start: 03-01-2023 Hospital admission [facility] Start: 03-01-2023 [facility] Start: 08-27-2022 [facility] Bacteria identified in Urine by Culture [facility] Comprehensive metabo lic 2000 panel - Serum or Plasma [facility] Helicobacter pylori Ag [Presence] in Stool by Immunoassay [facility] Patient Education Colon Polypectomy (DC) [facility] Work Phone: [place] Lower extremity v ein - bilateral [facility] Immunizations Immunization Date Immunization Notes Care Provider Fa cility 05-04-2024 influenza, high dose seasonal, preservative-free [facility] 05-04-2024 influenza virus vaccine, unspecified formulation Miguel Angel Jacobsen DO Work Phone: [facility] 07-01-2023 influenza virus vaccine, unspecified formulation [facility] 07-01-2023 influenza, high dose seasonal, preservative-free Cisco Mcadams Other [employer] Other 07-04-2022 SARS-CoV-2 (COVID-19 ) [id number] Angely GAGE [facility] 06-05-2022 influenza virus vaccine, split virus (incl. purified surface antigen) Cisco Mcadams Other [employer] Other 06-05-2022 influenza virus vaccine, unspecified formulation [facility] 03-28-2022 diphtheria, tetanus toxoids and acellular pertussis vaccine, unspecified formulation Cisco Mcadams Other [facility] 11-16-2021 SARS-CoV-2 mRNA (lpbhyfmylph-ffql-[id number] ose) vaccine Angely GAGE [facility] 06-28-2021 influenza virus vaccine, split virus (incl. purified surface antigen) Cisco Mcadams Other [employer] Other 06-28-2021 influenza virus vaccine, unspecified formulation [facility] 05-18-2021 SARS-CoV-2 (COVID-19 ) mRNA BNT-162b2 vax Angely GAGE [facility] Comment on above: Result Comment: 2022: [id number] 10-06-2020 SARS-CoV-2 (COVID-19 ) mRNA BNT-162b2 tylor GAGE [facility] Comment on above: Result Comment: 2022: [id number] 09-15-2020 COVID-19 Vaccine Pfizer - Documentation Purposes Only Cisco Mcadams Other [facility] Comment on above: Result Comment: 2022: [id number] 05-30-2020 influenza virus vaccine, split virus (incl. purified surface antigen) Cisco Mcadams Other [place] [employer] Other 05-30-2020 influenza virus vaccine, unspecified formulation [facility] 06-01-2019 influenza virus vaccine, split virus (incl. purified surface antigen) Cisco Mcadams Other [facility] [employer] Other 06-01-2019 influenza virus vaccine, unspecified formulation [facility] 06-09-2018 influenza virus vaccine, split virus (incl. purified surface antigen) Cisco Mcadams Other [facility] [employer] Other 06-09-2018 influenza virus vaccine, unspecified formulation [facility] 05-14-2017 tetanus and diphther ia toxoids, adsorbed, preservative free, for adult use (5 Lf of tetanus toxoid and 2 Lf of diphtheria toxoid) [employer] Mcadams Other [facility] 05-26-2016 influenza virus vaccine, split virus (incl. purified surface antigen) [employer] Mcadams Other [facility] [employer] Other 05-26-2016 influenza virus vaccine, unspecified formulation [facility] 11-27-2015 pneumococcal conjuga te vaccine, 13 valent [employer] Mcad[employer] Other [facility] 05-30-2015 influenza virus vaccine, split virus (incl. purified surface antigen) Cisco Mcadams Other [facility] [employer] Other 05-30-2015 influenza virus vaccine, unspecified formulation [facility] 06-14-2013 pneumococcal polysaccharide vaccine, 23 valent [employer] Mcad[employer] Other [facility] 05-23-2013 tetanus and diphther ia toxoids, adsorbed, preservative free, for adult use (5 Lf of tetanus toxoid and 2 Lf of diphtheria toxoid) [employer] Mcadams Other [facility] NEGATED: Highlighted row has not occurred!07-28-2023 influenza virus vaccine, unspecified formulation Angely GAGE [facility] [place] Payers Date Payer Category Payer Self-pay 2022 Private Health Insurance [employer] [place] mber [id number] 2008 Medicare MEDICARE [id number] 1959 Medicare [id number] 1959 Unknown [id number] 1945 Unknown [id number] 2.16.840.1.558022.3.579.2 .593 1943 Unknown [id number] 2.16.840.1.440363.3.579.2 .593 1943 Unknown [id number] 2.16.840.1.238852.3.579.2 .593 1943 Unknown [id number] 2.16.840.1.837091.3.579.2 .593 1943 Unknown [id number] 2.16.840.1.565685.3.579.2 .593 1943 Unknown [id number] 2.16.840.1.550941.3.579.2 .593 1943 Unknown [id number] 2.840.1.793059.3.579.2 .593 1943 Unknown [id number] 2.16.840.1.765915.3.579.2 .593 1943 Unknown [id number] 2.16.840.1.656130.3.579.2 .356 1943 Unknown [id number] 2.16.840.1.243974.3.579.2 .727 1943 Unknown [id number] 2.840.1.044117.3.579.2 .727 1943 Unknown [id number] 2.16.840.1.808752.3.579.2 .1259 1943 Unknown [id number] 2.16.840.1.963033.3.579.2 .1259 1943 Unknown [id number] 2.16.840.1.926845.3.579.2 .1259 1943 Unknown [id number] 2.16.840.1.057841.3.579.2 .1259 1943 Unknown [id number] 2.16.840.1.334885.3.579.2 .1259 1943 Unknown [id number] 2.16.840.1.073528.3.579.2 .1259 Unknown [id number] 2.16.840.1.547261.3.579.2 .531 Unknown [id number] 2.16.840.1.217601.3.579.2 .531 Unknown [id number] 2.16.840.1.839226.3.579.2 .531 Unknown [id number] 2.16.840.1.368740.3.579.2 .531 Social History Date Type Detail Facility Tobacco smoking stat [facility] Unknown if ever smoked [facility] Work Phone: Start: 1945 Sex Assigned At Male F [facility] Start: 02-22-2024 End: 07-05-2024 Sex Assigned At [facility] Start: 03-01-2023 End: 06-20-2023 Tobacco smoking status ILIS Ex-smoker (finding) [facility] Tobacco smoking status Never [facility] [place] History of tobacco use Current smoker [facility] History of tobacco use Cigarette Smoker N [facility] Start: 01-08-2024 Tobacco use and exposure Smokeless tobacco non-user [facility] Start: 02-22-2024 End: 07-05-2024 History of Social function [facility] Start: 1945 Sex assigned at Not on file N [facility] Start: 09-01-2024 Sex Male (finding) [facility] Goals Date Patient Goal Desired Activity /State Functional Status Date Assessment Result Facility 07-28-2023 Functional Status N/A General [facility]wn [facility] Clinical Notes 03-20-2022 to 07-11-2024 Note Date & Type Note Facility 07-11-2024 Evaluation note Diagnosis Onset Date Resolution Carpal tunnel syndrome of left wrist acute July 11, 2024 11:35am Chronic venous insufficiency of lower extremity acute July 11, 2024 11:35am Swelling of both lower extremities acute July 11, 2024 11:35am Ascending aortic aneurysm acute September 01, 2024 8:40am ASHD (arteriosclerotic heart disease) acute September 01 8:40am Chronic venous insufficiency of lower extremity acute September 01 8:40am GREYSON (generalized anxiety disorder) acute September 01 8:40am Hypercholesteremia acute Augua2024 8:40am Hypertension acute August 8:40am Irritable bowel syndrome with constipation acute September 01, 2024 8:40am Medicare annual wellness visit, subsequent acute September 01, 2024 8:40am Peripheral polyneuropathy acute September 01, 2024 8:40am Screening PSA (prostate specific antigen) acute September 01, 2024 8:40am [facility] Work Phone: 1(447) 576-392111-19-2024 NoteRight Eye Reliability was borderline. Progression has been stable. Foveal threshold was normal. Findings include normal observations. Left Eye Reliability was good. Progression has been stable. Foveal threshold was normal. 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 documented in this encounterBothwell Regional Health [id number] Chief Complaint: Patient here for 1 year follow up CAD, hypertension, and hyperlipidemia. Had echo in February 2023. He is down 16# from visit last November. He says Dr. Mcadams wanted him to stop metoprolol due to hypotension. He told Dr. Mcadams is was seeing Dr. Chavez today and would discuss it with him. HPI: Mr. Patel presents to clinic for routine follow-up. 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 He has tinnitus and fatigue. His blood pressure had been low and Dr. Mcadams wanted to stop metoprolol. He was also [...] 5. Follow up with me in the [facility] in 1 to 2 months. 6. [...] E78.2: Mixed hyperlipidemia 3. Coronary arteriosclerosis in havasupai artery - Continue medications as prescribed including aspirin, Lipitor, metoprolol I25.10: Atherosclerotic heart disease of havasupai coronary artery without angina pectoris metoprolol tartrate 25 mg tablet - TAKE ONE-HALF (more content not included)...[facility] 09-16-2023 Evaluation note* Encounter Date Diagnosis Assessment Notes Treatment Notes Treatment Clinical Notes Aug, GREYSON (generalized anxiety disorder) (ICD-10 - F41.1) [employer] Other 01-30-2024 Evaluation note* Encounter Date Diagnosis [...] treatment Referred and scheduled w/ Neuropsychiatric testing [employer] Other 01-12-2024 Evaluation note* Encounter Date Diagnosis [...] Denies dysuria or hematuria PSA next OV [employer] Other [id number] NoteChief Complaint consultation for left inguinal hernia [...] Use:. Cigarettes, 2per day. (more content not included)...[facility]Comment [facility]:Result Comment: Electronically Signed By: TOO TEJADA, Angely Daniels\Date and Time Signed: 07/28/23 20:29 [id number] Evaluation note * Encounter Date Diagnosis Assessment [...] Fall precuations. Discussed tapering dose of Gabapentin [employer] Other 11-02-2023 Evaluation note* Encounter Date Diagnosis Assessment Notes Treatment Notes Treatment Clinical Notes Jun, COVID-19 (ICD-10 - U07.1) [employer] Other 11-01-2023 Evaluation note* Encounter Date Diagnosis [...] or drinking prior to bedtime. Weight loss. [employer] Other 10-04-2023 Evaluation note* Encounter Date Diagnosis [...] feet daily for cuts. Continue Gabapentin May, GRYESON (generalized anxiety disorder) (ICD-10 - F41.1) Healthy [...] now. Recheck in month, consider Neurology referral [employer] Other 09-25-2023 Evaluation note* Encounter Date Diagnosis Assessment Notes Treatment Notes Treatment Clinical Notes Apr, COVID (ICD-10 - U07.1) [employer] Other 09-07-2023 Evaluation note* Encounter Date Diagnosis Assessment Notes Treatment Notes Treatment Clinical Notes Apr, Right lower quadrant abdominal pain (ICD-10 - R10.31) [employer] Other 09-05-2023 Evaluation note* Encounter Date Diagnosis [...] a trip to ER for IV hydration. [employer] Other 07-31-2023 Evaluation note* Encounter Date Diagnosis Assessment Notes Treatment Notes Treatment Clinical Notes Feb, Primary insomnia (ICD-10 - F51.01) [employer] Other 07-18-2023 Evaluation note* Encounter Date Diagnosis Assessment Notes Treatment Notes Treatment Clinical Notes Feb, Peripheral polyneuropathy (ICD-10 - G62.9) [employer] Other 07-11-2023 Evaluation note* Encounter Date Diagnosis [...] Healtlhy diet, exercise and proper sleep routine [employer] Other 06-06-2023 Evaluation note* Encounter Date Diagnosis Assessment Notes Treatment Notes Treatment Clinical Notes Jan, Peripheral polyneuropathy (ICD-10 - G62.9) [employer] Other 04-07-2023 Evaluation note* Encounter Date Diagnosis [...] continue exercise to achieve/maintain a normal BMI. [employer] Other 03-08-2023 Evaluation note* Encounter Date Diagnosis [...] in remission (ICD-10 - F17.211) Continue abstinence [employer] Other 02-21-2023 Evaluation note* Encounter Date Diagnosis [...] Fall precautions. Inspect feet daily for cuts. [employer] Other 01-18-2023 Evaluation note* Encounter Date Diagnosis Assessment Notes Treatment Notes Treatment Clinical Notes Aug, Helicobacter pylori (H. pylori) (ICD-10 - A04.8) [employer] Other 01-11-2023 History and physical note Author Maryjane Christensen [facility] August 27, 2022 10:16am Note Date/Time August 27, 2022 1 0:16am [facility] [address] [place] [address] Gastroenterology H&P Signed Patient: Yonatan Patel MR#: [id number] : 1945 Acct:[id number] Age/Sex: 77 / M Adm Date: 3 Loc: Room: Type: [facility] Attending Dr: Alek Oliva MD Copies [...] signed by Maryjane Christensen MD> 08/27/22 1016 [facility] Work Phone: 1(305) 534-824201-11-2023 Procedure [facility]01-11-2023 Procedure [facility]01[facility]11-2023 Procedure [facility]01-04-2023 Evaluation note* Encounter Date Diagnosis Assessment Notes Treatment Notes Treatment Clinical Notes Aug, Primary insomnia (ICD-10 - F51.01) [employer] Other 08-04-2022 NoteHISTORY AND PHYSICAL EXAMINATION Date:03/19/2022 [...] doing so in the near future. 3. [id number] patient was briefed in the office and [...] and go forward with this elective procedure.[facility] [id number] NoteOPERATIVE NOTE OPERATION DATE: 03/20/2022 SURGEON: Miguel [...] ensuring mobility, phacoemulsification was performed in a suqrjxj-[id number]-type fashion. After all nuclear material had been [...] and after satisfaction could be achieved, the newspaper photo editor and the gonioprism were removed from the [...] up the following day for postoperative care.[facility] note Author Berhane Trammell [facility] March 01, 2023 2:24pm Note Date/Time March 01, 2023 2:24 pm [facility] [address] [place] [address] Neurology Consult Note Signed Patient: Yonatan Patel MR#: [id number] : 1945 Acct:[id number] Age/Sex: 77 / M Adm Date: 3 Loc: Room: [address] [place] [address] Type: ADM INOo Attending Dr: Bobo Villagomez MD Copies to: DO Bobo Adler MD Steven Benedict, MD~ HPI Consult Date: 03/01/23 Wildlife Manager: Berhane Trammell MD Reason for consult: Leg [...] Selena Reid M.D.03/01/2023 9:15 AM Dictation Location: [place] [address] 03/01/23 07:02 IMPRESSION: ATROPHY AND CHRONIC MICROVASCULAR CHANGES. NO DEFINITE ACUTE INTRACRANIAL ABNORMALITY. FOLLOW-UP IS RECOMMENDED, SYMPTOMS WARRANT. COMMENT: Preliminary report was provided at 0730 hours. Impression dictated by: Selena Reid M.D.03/01/2023 8:13 AM Dictation Location: [place] [address] Therapy Recommendations Therapy Recommendations: OT Recommendations OT [...] signed by MD Berhane Trammell> 03/01/23 1424 [facility] Work Phone: Discharge summary Author Angely Lee [facility] March 02, 2023 5:49pm Note Date/Time March 02, 2023 5:43 pm [facility] [address] [place] [address] Discharge Summary Signed Patient: Yonatan Patel MR#: [id number] : 1945 Acct:[id number] Age/Sex: 77 / M Adm Date: 3 Loc: Room: [address] [place] [address]: Angely Lee DO Copies to: [...] signed by Angely Lee DO> 03/02/23 1749 [facility] Work Phone: Evaluation + Plan note No data available for this section General [facility] [place] Evaluation + Plan note Future Appointments Appointment Date:09/02/2023 02:40:00 PM Scheduled Provider:Angely GAGE MD Location:[facility] Appointment Type: Post Op 15 [facility] [place] Evaluation noteNo assessment information available [facility] Work Phone: Evaluation noteNo InformationNort [employer] Other Evaluation note* Diagnosis Onset Date Resolution Status Bilateral leg pain acute Numbness of left hand acute [facility] Work Phone: Evaluation note* Diagnosis Onset Date Resolution Status Adverse drug effect acute Altered mental status acute COVID acute Hypertension acute Lab test positive for detection of COVID-19 virus acute Neuropathy acute [facility] Work Phone: Evaluation note* Diagnosis Onset Date Resolution Status GREYSON (generalized anxiety disorder) acute GERD (gastroesophageal reflux disease) acute Hypercholesteremia acute Hypertension acute Peripheral polyneuropathy ac [place] Primary insomnia acute [facility] Work Phone: Evaluation note* Diagnosis Onset Date Resolution Status GREYSON (generalized anxiety disorder) acute GERD (gastroesophageal reflux disease) acute Hypercholesteremia acute Hypertension acute Peripheral polyneuropathy ac [place] Primary insomnia acute GREYSON (generalized anxiety disorder) acute Hypertension acute Irritable bowel syndrome with constipation acute Acute prostatitis noneactive ASHD (arteriosclerotic heart disease) acute GREYSON (generalized anxiety disorder) acute Hypercholesteremia acute Hypertension acute Irritable bowel syndrome with constipation acute Peripheral polyneuropathy ac [facility] Work Phone: Evaluation note* Diagnosis Onset Date Resolution Status GREYSON (generalized anxiety disorder) acute Hypertension acute Irritable bowel syndrome with constipation acute Acute prostatitis noneactive ASHD (arteriosclerotic heart disease) acute GREYSON (generalized anxiety disorder) acute Hypercholesteremia acute Hypertension acute Irritable bowel syndrome with constipation acute Peripheral polyneuropathy ac [facility] Work Phone: Evaluation note* Diagnosis Onset Date Resolution Status Ascending aortic aneurysm ac [place] ASHD (arteriosclerotic heart disease) acute GREYSON (generalized anxiety disorder) acute Hypercholesteremia acute Hypertension acute Irritable bowel syndrome with constipation acute Peripheral polyneuropathy ac [place] Abdominal pain acute Benign prostatic hyperplasia with lower urinary tract symptoms acute Polyuria acute [facility] Work Phone: Evaluation note* Diagnosis Onset Date Resolution Status Ascending aortic aneurysm ac [place] ASHD (arteriosclerotic heart disease) acute GREYSON (generalized anxiety disorder) acute Hypercholesteremia acute Hypertension acute Irritable bowel syndrome with constipation acute Peripheral polyneuropathy ac [place] Abdominal pain acute Benign prostatic hyperplasia with lower urinary tract symptoms acute Polyuria acute COVID acute [facility] Work Phone: Evaluation note* Diagnosis Onset Date Resolution Status Abdominal pain acute Benign prostatic hyperplasia with lower urinary tract symptoms acute Polyuria acute COVID acute Ascending aortic aneurysm ac [place] ASHD (arteriosclerotic heart disease) acute GREYSON (generalized anxiety disorder) acute Hypercholesteremia acute Hypertension acute Irritable bowel syndrome with constipation acute Peripheral polyneuropathy ac [place] [facility] Work Phone: Evaluation note* Diagnosis Primary open [...] type Diplopia [facility] Diagnosis Primary open angle glaucoma (POAG) of both eyes, moderate stage (CMS/HCC) documented in this encounter [facility] physical note Author Bobo Villagomez [facility] March 01, 2023 9:50am Note Date/Time March 01, 2023 9:50 am [facility] [address] [place] [address] Hospitalist H&P Signed Patient: Yonatan Patel MR#: [id number] : 1945 Acct:[id number] Age/Sex: 77 / M Adm Date: 3 Loc: 3T Room: [address] [place] [address] Type: ADM INOo Attending Dr: Bobo Villagomez [...] mentioned elsewhere in the documentation [facility] Medical History Cataract Hypercholesteremia Hypertension [...] % (Auto) 23.7 % (.) 03/01/23 07:06 [place] % (Auto) 8.3 % (.) 03/01/23 07:06 Eos % (Auto) 1.4 % (.) 03/01/23 07:06 Baso % (Auto) 0.7 % (.) 03/01/23 07:06 Nucleat RBC Rel Count 0.3 /100 WBC (0-0.5) 03/01/23 07:06 Neut # (Auto) 3.5 x10E3/uL (1.8-7.7) 03/01/23 07:06 Lymph # (Auto) 1.3 x10E3/uL (1.00-4.8) 03/01/23 07:06 [place] # (Auto) 0.4 x10E3/uL (0.0-0.8) 03/01/23 07:06 [...] pH 7.5 (5.0-9.0) 03/01/23 07:49 Ur Specific [place] 1.014 (1.001-1.030) 03/01/23 07:49 Urine Protein Negative [...] signed by Bobo Villagomez MD> 03/01/23 0950 [facility] Work Phone: Hisvpkf general Narrative - Reported* Type Description Date Medical History hypercholesterolemia Medical History hypertension Medical History anxiety Medical History Esophageal reflux Medical History glaucoma Medical History neuropathy Surgical History heart catheterization Surgical History shoulder surgery Surgical History colonoscopy with polyp resectio n 08/27/21 Surgical History EGD 08/27/21 Hospitalization History see above [employer] Other Histmgp general Narrative - Reported* Type Description Date Medical History hypercholesterolemia Medical History hypertension Medical History anxiety Medical History Esophageal reflux Medical History glaucoma Medical History neuropathy Surgical History heart catheterization Surgical History shoulder surgery Surgical History colonoscopy with polyp resectio n 08/27/22 Surgical History EGD 08/27/22 Hospitalization History see above [employer] Other Hisvr[facility] general Narrative - Reported* Type Description Date Medical History hypercholesterolemia Medical History hypertension Medical History anxiety Medical History Esophageal reflux Medical History glaucoma Medical History neuropathy Surgical History heart catheterization Surgical History shoulder surgery Surgical History colonoscopy with polyp resectio n 08/27/22 Surgical History EGD 08/27/22 Surgical History Left Inguinal Hernia Repair 08/18 024 Hospitalization History see above [employer] Other Hospital Discharge instructions Additional Instructions DISCHARGE [...] - Do NOT operate machinery such as [employer] tools, [employer] mowers, snow blowers, sewing machines, etc. for [...] NOT operate machinery such as power tools, [employer] mowers, snow blowers, sewing machines, etc. for [...] follow up with PCP - Office number [phone]. [facility] Work Phone: Hospital Discharge instructions No data available for this section [facility] [place] Progress note Author Berhane Trammell [facility] March 02, 2023 3:27pm Note Date/Time March 02, 2023 3:23 pm [facility] [address] [place] [address] Neurology Progress Note Signed Patient: Yonatan Patel MR#: [id number] : 1945 Acct:[id number] Age/Sex: 77 / M Adm Date: 3 Loc: Room: [address] [place] [address] Type: ADM INOo Attending Dr: Angely Lee [...] 70 16 130/72 98 Room Air 03/02/23 12:03/02/23 12:03/02/23 12:03/02/23 12:03/02/23 12:03/02/23 12:00 Neuro Other: Neurological exam: General: [...] signed by MD Berhane Trammell> 03/02/23 1527 [facility] Work Phone: Progress note No data available for this section [facility] [place] Reason for referral (narrative)* Reason Referral for left in direct inguinal hernia Diagnosis 1 Indirect left inguin al hernia (K40.90) Referral Organization [facility] Abbe sequeira Referring Provider First Name [employer] Referring Provider Last Name Abbe Referring Provider Specialty Internal Me shiraine Referred Organization [facility] Referred Provider Angely Gage Ref[facility] [place] Referred Provider Specialty Surgery Referral Priority Urgent General Notes Mr. Patel has a left indirect inguinal hernia w/ intermittent episodes of increased pain, abdominal distention and nausea. He has experienced 3-4 of these episodes in the past 2 weeks, with increased intensity and duration of pain. A recent episode was associated w/ a transient fever and chills. [employer] Other Reason for visit NarrativeERROR/Gastro referral issue [employer] Other Chief Complaint and Reason for Visit [...] syndrome with constipation Peripheral polyneuropathy Chief Complaint Admit Date leg swelling July 11, 2024 11:35am Wellness September 01, 2024 8 :40am Reason for Visit Admit Date Carpal tunnel syndrome of left wrist Nov emb2023 11:35am Chronic venous insufficiency of lower ex tremity July 11, 2024 11:35am Swelling of both lower extremities Novem 2023 11:35am Ascending aortic aneurysm September 01, 2024 8:40am ASHD (arteriosclerotic heart disease) Ja nuary 2024 8:40am Chronic venous insufficiency of lower ex tremity September 01, 2024 8:40am GREYSON (generalized anxiety disorder) Janua ry 2024 8:40am Hypercholesteremia September 01, 2024 8 :40am Hypertension September 01, 2024 8 :40am Irritable bowel syndrome with constipati on September 01, 2024 8:40am Medicare annual wellness visit, subseque nt September 01, 2024 8:40am Peripheral polyneuropathy September 01, 2024 8:40am Screening PSA (prostate specific antigen ) September 01, 2024 8:40am Family History Relationship Condition Age at Onset [...] Mcadams DO Primary Care Provider Active Start: March [...] Adriana Mcadams DO Primary Care Provider Active Alejo Lynn , DO Emergency Provider Active Bobo Villagomez MD Admit Provider, Attending Provi jeanette Active Berhane Trammell MD Other Provider Active Team Status: Inactive Member Role Status Dates Alek Oliva MD Attending Provider Active [employer] Mcadams DO Primary Care Provider Active Team Status: Inactive Member Role Status Dates [employer] Mcadams DO Primary Care Provider Active Maryjane Christensen [...] November 27, 2023 End: November 27, 2023 Carpet Finishing Supervisor Relationship Specialty Start Date End Date Cisco Mcadams MD [address] [place] [phone] PCP - General Internal Medicine 04/09/23 Carpet Finishing Supervisor Relationship Specialty Start Date End Date Cisco Mcadams MD [address] [place] [phone] PCP - General Internal Medicine 04/09/23 Carpet Finishing Supervisor Relationship Specialty Start Date End Date Cisco Mcadams MD [address] [phone] PCP - General Internal Medicine 04/09/23 Carpet Finishing Supervisor Relationship Specialty Start Date End Date Cisco Mcadams MD [address] [phone] PCP - General Internal Medicine 04/09/23 Team Status: Inactive Member Role Status Adriana Mcadams DO Primary Care Provide r, Attending Provider Active Start: July 11, 2024 End: July 11, 2024 Team Status: Inactive Member Role Status Dates Cisco Mcadams DO Primary Care Provide r, Attending Provider Active Start: September 01, 2024 End: September 01, 2024 (unrecognized sect ion and content) No Status Records FoundNo Status Records FoundNo Status Records FoundNo Status Records FoundNo Status Records FoundNo Status Records Found INFORMATION SOURCE (unrecogn ized section and content) DATE CREATED AUTHOR 09/16/2022 Jordin Jacques pitadelso DATE CREATED AUTHOR AUTHOR'S ORGANIZ ATION 03/05/2023 [facility] DATE CREATED AUTHOR AUTHOR'S ORGANIZ ATION 06/25/2023 [facility] DATE CREATED AUTHOR AUTHOR'S ORGANIZ ATION 08/25/2023 Modesto Gomez [facility] DATE CREATED AUTHOR AUTHOR'S ORGANIZ ATION 12/15/2023 [facility] DATE CREATED AUTHOR AUTHOR'S ORGANIZ ATION 07/07/2024 [facility] dical Specialists EPIC REASON FOR VISIT (unrecogniz ed section and content) Reason Comments Med Refill Reason Comments Follow-up Glaucoma Reason Onset Date Comments Med Refill 07/28/2024 Goals (unrecognized section and content) Goals may [...] BE BASED ON THE PRIMARY CLINICAL RECORDS. [facility] [employer] [facility]. provides no warranty or guarantee of the accuracy or completeness of information in this document.
[2024-09-02 07:34] LABS: Basophils Percent Auto 0.5 % (0.2-2.0); Eosinophils Absolute Auto 0.1 10^3/uL (0.0-0.7); Eosinophils Percent Auto 1.1 % (0.9-7.0); Hematocrit 42.8 % (42.0-54.0); Hemoglobin 14.2 g/dL (14.0-18.0); Immature Granulocytes Abs Auto 0.02 10^3/uL (0.00-0.03); Immature Granulocytes Pct Auto 0.4 % (0.0-0.5); Lymphocytes Absolute Auto 1.5 10^3/uL (1.2-3.8); Lymphocytes Percent Auto 25.8 % (20.5-60.0); Mean Corpuscular HGB Conc 33.2 g/dL (29.9-35.2); Mean Corpuscular Hemoglobin 29.5 pg (25.9-34.0); Mean Platelet Volume 9.4 fL (9.5-13.5); Monocytes Absolute Auto 0.5 10^3/uL (0.3-0.8); Monocytes Percent Auto 9.3 % (1.7-12.0); Neutrophils Absolute Auto 3.5 10^3/uL (1.4-6.5); Neutrophils Percent Auto 62.9 % (43.0-75.0); Platelet Count 164 10^3/uL (150-450); Red Blood Count 4.81 10^6/uL (4.70-6.10); Red Cell Distribution Width 14.7 % (11.0-15.0); White Blood Count 5.6 10^3/uL (4.0-11.0)
[2024-09-02 09:15] LABS: Alanine Aminotransferase 48 U/L (16-63); Albumin Globulin Ratio 1.3; Albumin Level 3.7 g/dL (3.4-5.0); Alkaline Phosphatase 69 U/L (46-116); Anion Gap 12.5; Aspartate Amino Transferase 34 U/L (15-37); BUN Creatinine Ratio 19.8; Bilirubin Total 1.3 mg/dL (0.2-1.0); Calcium 9.4 mg/dL (8.5-10.1); Carbon Dioxide 26.8 mmol/L (21.0-32.0); Chloride 108 mmol/L (98-107); Cholesterol 88 mg/dL (<=200); Estimated GFR (African America >60 (>=60 mL/min/1.73m^2); Estimated GFR (Non-African Ame >60 (>=60 mL/min/1.73m^2); Globulin 2.8 g/dL; Glucose 105 mg/dL (74-106); HDL Cholesterol 43 mg/dL (40-60); LDL Cholesterol Calculated 30.2 mg/dL; Potassium 4.3 mmol/L (3.5-5.1); Sodium 143 mmol/L (136-145); Total Protein 6.5 g/dL (6.4-8.2); Triglycerides 74 mg/dL (<=150); VLDL CHOLESTEROL 14.8 mg/dL
== END 2024-09-02 07:06 | disposition home or self-care (01) ==
LOC: LAB 07:06
PROVIDERS: PCP Internal Medicine; Visit Provider Internal Medicine
DX: I25.10 Atherosclerotic heart disease of native coronary artery without angina pectoris (principal); I10 Essential (primary) hypertension; E78.00 Pure hypercholesterolemia, unspecified
CPT/HCPCS: 36415; 80053; 80061; 85025

== ENCOUNTER 2024-12-27 09:44 | Outpatient (OUT) | payer MEDICARE, SELFPAY ==
--- NOTE | 2024-12-27 10:00 | CA_ITS ---
Patient Name: JOSE PATEL MR#: [id number] : 1945 Exam Date: 12/27/2024 Ordering Doctor: DR BETSY CHAVEZ M.D. ECHOCARDIOGRAM REPORT PROCEDURE: CA ECHO DOPPLER COMPLETE INDICATIONS: Coronary artery disease, aortic root dilation, hypertension COMPARISON: None. DESCRIPTION: COMPLETE ECHOCARDIOGRAM Real-time transthoracic echocardiography with 2D, M-mode, spectral and color flow Doppler performed. QUALITY: Technically difficult study due to patient's condition. LEFT VENTRICLE: Normal chamber size. Thickened septal wall. LV EF: Global left ventricular systolic function is difficult to assess but appears preserved; visually estimated ejection fraction is 55%. Unable to assess regional wall motion abnormalities. Consider contrast study for better delineation of endocardial borders. DIASTOLIC: Unable to assess diastolic function. ATRIAL SEPTUM: Visually appears intact. LEFT ATRIUM: Inadequately seen. RIGHT ATRIUM: Inadequately seen. RIGHT VENTRICLE: This appears to be normal in size and systolic function but is poorly seen. TRICUSPID VALVE: Normal mobility and thickness. No stenosis with mild regurgitation. No evidence of pulmonary hypertension. RVSP 28 mmHg MITRAL VALVE: Normal mobility and thickness. No evidence of mitral valve stenosis. There is no mitral annular calcification. AORTIC VALVE: Normal trileaflet appearance. Mildly calcified aortic valve. Normal leaflet mobility. No evidence of aortic valve stenosis. No aortic regurgitation. AORTIC ROOT: Normal diameter and appearance. Ascending aorta is normal in size. PULMONIC VALVE: Normal thickness and mobility. PERICARDIUM: Anterior free space; trivial effusion versus fat pad. IVC: Collapses with inspirations. IVC is normal in size. CONCLUSION: 1. Global left ventricular systolic function is difficult to assess but appears preserved; visually estimated ejection fraction is 55% 2. The right ventricle appears normal in size and systolic function 3. Unable to assess diastolic function 4. The atria are poorly seen 5. Mild tricuspid regurgitation 6. Anterior free space; trivial effusion versus fat pad Adult Echocardiography Procedure Report Left Ventricle LVEDD (3.7 - 5.6 cm): 3.93 cm LVESD (2.2 - 4.0 cm): 2.91 cm LVIVS thickness (0.6 - 1.2 cm): 1.37 cm LVPW thickness (0.5 - 1.0 cm): 1.06 cm LVOT Max Gradient: 1.62 mm[Hg] LVOT Area (cm2): 0.64 m/s Peak Velocity (LVOT): 0.64 m/s Mean Velocity (LVOT): 0.44 m/s LVOT Diameter 2.21 cm Left Atrium Left Atrium Systolic Dimension: 3.08 cm Mitral Valve MV E to A Ratio: 1.16 Mitral Valve A-Wave Peak Velocity: 0.35 m/s Mitral Valve E-Wave Peak Velocity: 0.41 m/s Right Ventricle Aorta AO Root Diam: 3.80 cm Ascending Ao Diam: 2.81 cm Aortic Valve Tricuspid Valve Peak Velocity (Regurgitant Flow): 1.68 m/s, 2.21 m/s, 2.49 m/s Pulmonic Valve Mean Gradient: 2.05 mm[Hg] Mean Velocity: 0.66 m/s Peak Velocity: 1.05 m/s, 0.62 m/s Peak Gradient: 1.54 mm[Hg], 4.37 mm[Hg] Right Atrium Dictated by: Betsy Chavez M.D. on 12/28/2024 at 15:23 Approved by: Betsy Chavez M.D. on 12/28/2024 at 15:27
== END 2024-12-27 09:45 | disposition home or self-care (01) ==
LOC: CARD 09:44
PROVIDERS: PCP Internal Medicine; Visit Provider Internal Medicine Interventional Cardiology
DX: I77.810 Thoracic aortic ectasia (principal)
CPT/HCPCS: 93306

== ENCOUNTER 2025-01-06 07:01 | Outpatient (OUT) | payer MEDICARE, SELFPAY ==
--- OUTSIDE RECORDS SUMMARY | 2024-04-26 05:00 | XMS_ITS ---
Author Organization [facility] [place] Address [address] [facility] [address] Care Team Providers Care Tetryl Screen Operator Name Role Phone Cisco Nicholson DO Primary Care Provider Gabriela Mock [phone] REASON FOR VISIT Nail Care Vital Signs Temperature 97.4 degrees Fahrenheit 04/26/20 Heart Rate 64 /min 04/26/2024 Height 74 in 04/26/2024 Weight 181 lbs 04/26/2024 BMI 23.24 kg/m2 04/26/2024 Oximetry 98 % 04/26/2024 Encounters Encounter Location Date Provider Diagnosis [facility] (PODIATRY) [address] [place] [address] [place] [address] 04/26/2024 Gabriela Koch Altered mental status R41.82 Assessments Encounter Date Diagnosis (ICD Code) Assessment Notes Treatment Notes Treatment Clinical Notes Section Notes 04/26/2024 Altered mental status (ICD-10 - R41.82) Plan Of Treatment No Information Progress Notes * Yonatan PETERSON ADOB:1945 (79 yo M)Acc No.[id number]:04/26/2024 Nurse Visit Patient: Alexei WHALEY Yonatan Garcia Provider: Samy Koch PA-C :1945 A ge:79 Y S ex:Male Date:04/26/2024 Address:[address] [place], [place] [id number] Pcp:Cisco Nicholson DO Check In:08:45 AM ESTCheck O ut:09:06 AM EST Subjective: * Chief Complaints: * N ail Care * HPI: G eneral: Patient in office today for nail trim. Nails were trimmed and filed to patients liking. Nails were trimmed with no incident. * Active Problem List R41.82 Altered mental statu s Modified On:07/23/2023W/U Status:confirmed * Medical History: * Surgical History: * Hospitalization/Major Diagno stic Procedure: * Medications: Objective: * Vitals: W t:181lbs, Ht: 74 in, Temp:97.4F, HR:64/min, BMI:23.24Index, Pain scale:01-10, Oxygen sat %:98%, Ht-cm: 187.96 cm, Wt-k.1 kg. Assessment: * Assessment: 1. A ltered mental status - R41.82 (Primary) Plan: * Treatment: * Procedure Codes: 9 9211 OFFICEOUTPT VISIT, EST * * Sign off status: Completed Visit Status: C HK (Check Out) true * Provider: Samy Koch PA-C Date: 0 04/26/2024 Generated for Christopheri santos/Rain/eTransmitting on: 0 01/06/2025 07:04 AM EDT History and Physical Notes * HPI (History of Present Illness) Category Sub-Category Detail Notes Category Not es General Patient in offi ce today for nail trim. Nails were trimmed and filed to patients liking. Nails were trimmed with no incident.
--- OUTSIDE RECORDS SUMMARY | 2024-07-25 10:00 | XMS_ITS ---
Author Organization [facility] in [place] Address [address] [place] [address] Care Team Providers Care Assistant Unit Forester Name Role Phone Cisco Nicholson DO Primary Care Provider Ernestina CorderoenGabriela Unavailable [phone] Allergies No Known Allergies REASON FOR VISIT [...] Notes Tobacco use: Former smoker Vital Signs Temperature 96.5 degrees Fahrenheit 07/25/20 Heart Rate 62 /min 07/25/2024 Respiratory Rate 16 /min 07/25/2024 Height 74 in 07/25/2024 Weight 181 lbs 07/25/2024 BMI 23.24 kg/m2 07/25/2024 Oximetry 98 % 07/25/2024 Encounters Encounter Location Date Provider Diagnosis [facility] (PODIAT[facility]) [address] [place] [address] [place] [address] 07/25/2024 Gabriela August Onycholysis L60.1 Assessments Encounter Date Diagnosis (ICD Code) Assessment Notes Treatment Notes Treatment Clinical Notes Section Notes 07/25/2024 Onycholysis (ICD-10 - L60.1) Plan Of Treatment No Information Progress Notes * Yonatan PETERSON ADOB:1945 (79 yo M)Acc No.[id number]:07/25/2024 Nurse Visit Patient: Yonatan FARFAN Provider: Samy Koch PA-C :1945 A ge:79 Y S ex:Male Date:07/25/2024 Address:[address] [place], [place] [id number] Pcp:Cisco Nicholson, Check In:01:50 PM ESTCheck O [...] 1973 left rotaor cuff 2014 right rotator [id number] skin cancer removal nose 2022 * Hospitalization/Major [...] 09/25/2023 Generated for Maribel graham/Rain/Tabby on: 0 01/06/2025 07:04 AM EDT History and Physical Notes * HPI (History of Present Illness) Category Sub-Category Detail Notes Category Not es General here today for toe nail care. 9 nails thick and long and need trimmed today
--- OUTSIDE RECORDS SUMMARY | 2024-10-20 05:20 | XMS_ITS ---
Author Organization [facility] [place] Address [address] [place] [address] Care Team Providers Care Braid Maker Name Role Phone Cisco Nicholson DO Primary Care Provider Deniz Villa [phone] Allergies No Known Allergies REASON FOR VISIT Nail Care Medications Medication SIG (Take, Route, Frequency, Duration) Notes Start Date End Date Status busPIRone HCl 15 MG 1 tablet Orally Twic e a day 02/11/2024 Active Gabapentin 300 MG 1 capsule Orally 4 daily 024 Active Metoprolol Tartrate 25 MG 1/2 tab Orally Twice a day 02/11/2024 Active Multivitamin - 1 tablet Orally Once a day 02/11/2024 Active Temazepam 15 MG 1 capsule at bedtime as needed Orally Once a day 02/11/2024 Active Aspirin 81 81 [...] Tobacco use: Former smoker Vital Signs Temperature 97.4 degrees Fahrenheit 10/21/19 25 Heart Rate 66 /min 10/20/2024 Height 74 in 10/20/2024 Weight 180 lbs 10/20/2024 BMI 23.11 kg/m2 10/20/2024 Oximetry 97 % 10/20/2024 Encounters Encounter Location Date Provider Diagnosis [facility] (PODIATRY) [address] [place] [address] [place] [address] 10/20/2024 Deniz Aguilera Onycholysis L60.1 and Altered mental status R41.82 Assessments Encounter Date Diagnosis (ICD Code) Assessment Notes Treatment Notes Treatment Clinical Notes Section Notes 10/20/2024 Onycholysis (ICD-10 - L60.1) 10/20/2024 Altered mental status (ICD-10 - R41.82) Plan Of Treatment Next Appt Details Follow Up: 3 Months, Reason: Progress Notes * Yonatan PETERSON ADOB:1945 (79 yo M)Acc No.[id number]:10/20/2024 UNLOCKED PROGRESS NOTE Follow Up Patient: Yonatan FARFAN Provider: Judith Aguilera DPM, MS :1945 A ge:79 Y S ex:Male Date:10/20/2024 Address:[address] [place], [place] [phone] Pcp:Cisco Nicholson, DO Check In:08:46 AM ESTCheck O ut:09:24 AM EST Subjective: * Chief Complaints: * 1 . Nail Care. * HPI: G eneral: Patient in office today for routine toenail care. Nails elongated and thickened 1-5 on right foot and 2-5 on left foot. Left great toenail has been removed previously. Judith seals has care completed due to his nondiabetic [...] left rotaor cuff 2013 , right rotator [id number] , skin cancer removal nose 2022 . [...] use: F ormer smoker * Medications: T aking Aspirin 81(Aspirin) [...] 187.96 cm, Wt-k.65 kg. Assessment: * Assessment: 1. O nycholysis - L60.1 (Primary) 2 . A ltered mental status - R41.82 ? Plan: * Treatment: * Follow Up: 3 Months * * Electronic signature of Jewel Aguilera DPM on 01/06/2025 at 07:04 AM EDT Sign off status: Pending Visit Status: C HK (Check Out) * Provider: Judith Aguilera DPM, MS Date: 0 10/20/2024 Generated for Maribel graham/Rain/Tabby on: 0 01/06/2025 07:04 AM EDT History and Physical Notes * HPI (History of Present Illness) Category Sub-Category Detail Notes Category Not es General Patient in offi ce today for routine toenail care. Nails elongated [...]
--- OUTSIDE RECORDS SUMMARY | 2024-12-13 11:17 | XMS_ITS ---
Author Name Auto Generated Organization [facility] Care Team Providers Care Tractor Operator Battery Name Role Phone BETSY CHAVEZ Attending Unavailable MIGUEL ANGEL JACOBSEN Attending Unavailable CHEYANNE ALBARRAN Attending Unavailable CHEYANNE ALBARRAN Referring Unavailable MIGUEL ANGEL JACOBSEN Attending Unavailable MIGUEL ANGEL JACOBSEN Attending Unavailable PROBLEMS DATE TYPE CONDITION / CODE ATTENDING STATUS [facility] 12/13/2024 Admitting Diagnosis Atherosclerotic heart disease of [place] coronary artery without angina pectoris / I25.10(ICD-10) BETSY CHAVEZ Active [facility] 12/13/2024 Admitting Diagnosis Thoracic aortic ectasia / I77.810(ICD-10) CITLALI Active [facility] PROCEDURES No Procedure Records Found RESULTS PROGRESS Observed: 12/13/2024 11:30 AM Status: COMPLETED Source[facility] Clinic Note Chief Complaint: Patient here for 1 year follow up. Patient states he feels pretty good, with the exception of his feet due to neuropathy. Patient denies chest pain, SOB, dizziness, leg swelling, passing out or heart palpitations. Patient states he just seen is PCP Dr. Nicholson on 12/12/2024. HPI: Mr. Peterson presents to clinic for routine follow-up. 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 He has tinnitus and fatigue. His blood pressure had been low and Dr. Nicholson wanted to stop metoprolol. He was also diagnosed with significant anxiety. UPDATE 12/13/2024 Doing well; no new symptoms Physically active no symptoms Cardiology ROS: Review of Systems Constitutional: Weight loss: 16# since November 2022. HENT: Positive for hearing loss. Cardiovascular: Negative for leg swelling (end of day, resolves [...] buspirone 15 mg tablet, Disp: , Rfl: escitalopram (Lexapro) 5 mg tablet, 15 mg., Disp: , Rfl: gabapentin (Neurontin) 300 mg capsule, Take 300 mg by mouth every 6 (six) hours., Disp: , Rfl: metoprolol tartrate (Lopressor) 25 mg tablet, TAKE ONE-HALF TABLET BY MOUTH TWICE DAILY, Disp: 90 tablet, Rfl: 3 temazepam (Restoril) 15 mg capsule, , Disp: , Rfl: Last Recorded Vitals BP 144/69 (BP Location: Right arm, Patient Position: Sitting) Pulse 69 Ht 1.88 m (6' 2 ) Wt 81.2 kg (179 lb) SpO2 99% BMI 22.98 kg/m??? Physical Examination: GENERAL: alert and oriented [...] 5. Follow up with me in the [facility] in 1 to 2 months. 6. [...] left ventricular hypertrophy. No significant valvular abnormalities. Labs: 09/02/2024 triglycerides 74, cholesterol 88, LDL 30.2, HDL 43 Echocardiogram 12/2023: Global left ventricular systolic function is normal; EF 55 to 60% Mild aortic and tricuspid regurgitation Moderate biatrial dilatation Normal right-sided pressures Moderately dilated aortic root measuring 4.2 cm. The ascending aorta is normal in size 2.6 cm. Assessment: 1. Essential hypertension 2. Mixed hyperlipidemia 3. Coronary arteriosclerosis in [place] artery 4. Dilated aortic root Plan: Continue medical therapy in the form of aspirin, statin, and a beta-zachary I would recommend halving the beta-zachary for him to take metoprolol 12.5 mg twice daily; Given underlying coronary disease, anxiety, and a blood pressure this will hopefully provide benefits with decreased hypotension He will need annual echocardiograms to serially monitor his aortic root dilatation; we will repeat one this May and again next year Return to clinic in a year or sooner should problems arise Betsy Chavez MD, MPH, [facility], [facility], [facility] Interventional Cardiology Pager Email: [email or web address] OFFICE VISIT Observed: 12/13/2024 11:30 AM Status: COMPLETED Source: [facility] [id number] Ynoatan Peterson [birth year] M Date Provider Department Center 12/13/2024 271-BETSY CHAVEZ CARD [facility] Family History Problem Relation Age of Onset Heart attack Father Heart attack Brother Family Status - Relation Status Age at Mother Father Sister Alive Brother Level of Service:57817 ME OFFICE/OUTPATIENT ESTABLISHED MOD MDM 30 MIN ALLERGIES DATE TYPE / CODE NAME / CODE REACTION SEVERITY SOURCE SYSTEMIC/[id number]( SNOMED CT) NO KNOWN ALLERGIES [facility] ENCOUNTERS ADMIT/DISCHARGE ACCOUNT NUMBER ADMITTING ENCOUNTER CLASS LOCATION SOURCE 12/13/2024/ 5 [id number] [facility]/ 4 [id number] [facility] 02/24/2024/ 4 [id number] [facility] 02/22/2024/ 4 [id number] Ambulatory Building:[facility] 02/22/2024/ 4 [id number] Ambulatory Building:[facility] 01/08/2024/ 4 [id number] Ambulatory Building:[facility] PAYERS ENCOUNTER GUARANTOR PAYER SUBSCRIBER SOURCE 12/13/2024 Primary Insurance:Angelina Number: [id number] ve Date:2022-08-17 YONATAN PETERSONDOB: [id number] [place] [address] [facility] 12/13/2024 Secondary Insurance:MEDICARE Policy Number: [id number] ve Date:9905-28-23Gsl n Name:Medicare YONATAN PETERSONDOB: [id number] [place] [address] [facility] 07/05/2024 YONATAN PETERSONDOB: [place], [place] [address]Xur: (HP) (WP) Primary Insurance:MEDICARE Policy Number: [id number] ve Date:6357-77-18Ish n Name:Medicare YONATAN PETERSONDOB: [id number] [place] [address] [facility] 07/05/2024 Secondary Insurance:Angelina cy Number: [id number] ve Date:2022-08-17 YONATAN PETERSONDOB: [id number] [place] [address] [facility] 02/24/2024 YONATAN PETERSONDOB: TARA [place], [place] [address]Ipo: (HP) (WP) Primary Insurance:MEDICARE Policy Number: [id number] ve Date:3862-40-76Aem n Name:Medicare YONATAN PETERSONDOB: [id number] [place] [address] [facility] 02/24/2024 Secondary Insurance:GOMEZoli cy Number: [id number] ve Date:2022-08-17 YONATAN PETERSONDOB: [id number] [place] [address] [facility] 02/22/2024 YONATAN Jose PETERSONDOB: [place], [place] [address]Twl: (HP) (WP) Primary Insurance:MEDICARE Policy Number: [id number] ve Date:0660-53-81Jgf n Name:Medicare YONATAN MANRIQUEZB: [id number] [place] [address] [facility] 02/22/2024 Secondary Insurance:AARPPoli cy Number: [id number] ve Date:2022-08-17 YONATAN PETERSONDOB: [id number] [place] [address] [facility] 02/22/2024 YONATAN Jose DECLANB: [place], [place] [address]Vgh: (HP) (WP) Primary Insurance:MEDICARE Policy Number: [id number] ve Date:3057-77-09Tpw n Name:Medicare YONATAN MANRIQUEZB: [id number] [address] [facility] 02/22/2024 Secondary Insurance:GOMEZjessica cy Number: [id number] ve Date:2022-08-17 YONATANMARTHA PETERSONDOB: [id number] [place] [address] [facility] 01/08/2024 YONATAN Jose PETERSONDOB: [place], [place] [address]Irp: (HP) (WP) Primary Insurance:MEDICARE Policy Number: [id number] ve Date:5876-95-20Jge n Name:Medicare YONATAN PETERSONDOB: [id number] [address] [facility] 01/08/2024 Secondary Insurance:AARPPoli cy Number: [id number] ve Date:2022-08-17 YONATAN Jose AMANDADOB: [id number] [address] [facility] EPIC
--- OUTSIDE RECORDS SUMMARY | 2025-01-06 07:04 | XMS_ITS | Referral Summary ---
Author Organization The [facility] Address [address] [place] [address] Care Team Providers Care Sports Equipment Supervisor Name Role Phone Cisco Nicholson DO Primary Care Provider [phone] Encounters Date Type Department Care Team Description 12/13/2024 11:30 AM EDT Office Visit [facility] [place] [address] [place] [address] Betsy Chavez MD Coronary artery disease involving [place] coronary artery of [place] heart without angina pectoris (Primary Dx); Aortic root dilatation from Last 3 Months Allergies No known active allergies Medications Medication Sig Dispensed Refills Start Date End Date Status aspirin 81 mg chewable tablet Chew 81 mg every other day. Active busPIRone (Buspar) 15 mg tablet buspirone 15 mg tablet Active gabapentin (Neurontin) 300 mg capsule Take 300 mg by mouth every 6 (six) hours. 08/04/2022 Active temazepam (Restoril) 15 mg capsule 11/02/2022 Active metoprolol tartrate (Lopressor) 25 mg tabletIndications:Ess ential hypertension TAKE ONE-HALF TABLET BY MOUTH TWICE DAILY 90 tablet 3 09/07/2023 Active escitalopram (Lexapro) 5 mg tablet 15 mg. 12/08/2023 Act karen atorvastatin (Lipitor) 80 mg tabletIndications:Cor onary artery disease due to lipid rich plaque TAKE 1 TABLET BY MOUTH ONCE DAILY 90 tablet 3 06/30/2024 Active Active Problems Problem Noted Date Diagnosed Date Acute encephalopathy 12/14/2023 12/14/2023 Adenomatous polyp of colon 12/14/202312/13 Adverse drug effect 12/14/2023 12/14/2023 Altered mental status 12/14/2023 12/14/2023 ASHD (arteriosclerotic heart disease) 12/14/2023 12/14/2023 Bilateral leg pain 12/14/2023 12/14/2023 BMI 23.0-23.9, adult 12/14/2023 12/14/2023 Cerebral atherosclerosis 12/14/2023 024 Cholelithiasis without obstruction 12/14/2023 12/14/2023 COVID 12/14/2023 12/14/2023 Emphysema/COPD 12/14/2023 12/14/2023 Gastro-esophageal reflux disease with esophagiti s 12/14/2023 12/14/2023 GERD (gastroesophageal reflux disease) 12/14/2023 Glaucoma 12/14/2023 12/14/2023 Irritable bowel syndrome with constipation 12/1312/14/2023 Lab test positive for detection of COVID-19 viru s 12/14/2023 12/14/2023 MCI (mild cognitive impairment) with memory loss 12/14/2023 12/14/2023 Numbness of left hand 12/14/2023 12/14/2023 Peripheral polyneuropathy 12/14/20232023 Primary insomnia 12/14/2023 12/14/2023 Reducible left inguinal hernia 12/14/2023 0 12/14/2023 Viral syndrome 12/14/2023 12/14/2023 Neuropathy 06/20/2023 12/14/2023 Blepharitis of upper and lower eyelids of both e yes 04/10/2023 12/14/2023 Dry eyes 04/10/2023 12/14/2023 PCO (posterior capsular opacification), bilatera l 04/10/2023 12/14/2023 Primary open angle glaucoma (POAG) of both eyes, moderate stage 04/10/2023 12/14/2023 Loss of consciousness 11/20/2016 Essential hypertension 08/17/1959 Generalized anxiety disorder 08/17/1959 Mixed hyperlipidemia 08/17/1959 Peripheral neuralgia 08/17/1959 Social History Tobacco Use Types Packs/Day Years Used Date Smoking Tobacco: Former Cigarettes Smokeless Tobacco: Never Tobacco Cessation:Counseling Given: Not Answered Alcohol Use Standard Drinks/Week Comments Yes 0 (1 standard drink = 0.6 oz pur e alcohol) occasional [place] Safety & Environment Answer Date Rec orded Fear of Current or Ex-Partner Not on file Emotionally Abused Not on file 10/08/2023 Physically Abused Not on file 10/08/2023 Sexually Abused Not on file 10/08/2023 Physically or Sexually Abused Not on file Sex and Gender Information Value Date Recorded Sex Assigned at Not on file Gender Identity Not on file Sexual Orientation Not on file Last Filed Vital Signs Vital Sign Reading Time Taken Comments Blood Pressure 144/69 12/13/2024 11:30 AM EDT Pulse 69 12/13/2024 11:30 AM EDT Temperature - - Respiratory Rate - - Oxygen Saturation 99% 12/13/2024 11:30 AM EDT Inhaled Oxygen Concentration - - Weight 81.2 kg (179 lb) 12/13/2024 11:30 AM EDT Height 188 cm (6' 2 ) 12/13/2024 11:30 AM EDT Body Mass Index 22.98 12/13/2024 11:30 AM EDT Plan of Treatment Not on file Care Teams Sports Equipment Supervisor Relationship Specialty Start Date End Date Cisco Nicholson DO [address] [facility] [place] [id number] PCP - General 11/25/22
--- OUTSIDE RECORDS SUMMARY | 2025-01-06 07:04 | XMS_ITS | Clinical Summary ---
Author Organization [facility] Address [address] [place] [address] Care Team Providers Care Sales Counselor Name Role Phone Cisco Nicholson DO Primary Care Provider [phone] Allergies No known active allergies Medications Medication [...] 08/17/1959 Mixed hyperlipidemia 08/17/1959 Peripheral neuralgia 08/17/1959 Encounters Date Type Department Care Team Description 12/13/2024 11:30 AM EDT Office Visit [facility] [place] [address] [place] [address] Betsy Chavez MD Coronary artery disease involving [place] coronary artery of [place] heart without angina pectoris (Primary Dx); Aortic root dilatation from Last 3 Months Family History Medical History Relation Name Comments Heart attack Brother Heart attack Father Relation Name Status Comments Brother Father Mother Sister Alive Social History Tobacco Use Types Packs/Day Years [...] 12/13/2024 11:30 AM EDT Plan of Treatment Health Maintenance Due Date Last Done Comments Medicare Annual Wellness (AWV) 1945 Depression Screening 1957 Adult Tetanus 1965 Fall Risk Screening 2008 Pneumococcal Vaccine: 65+ Years (2 of 2 - PCV) 08/17/2013 08/17/2012 Zoster Vaccines (2 of 2) 05/04/2021 03/09/2021 COVID-19 Vaccine ( season) 2024 08/23/2024, 07/04/2022, 11/16/2021, Additional history exists Influenza Vaccine Completed 05/04/2024, , 06/29/2019, Additional history exists HIB Vaccines Aged Out No longer eligi ble based on patient's age to complete this topic HPV Vaccines Aged Out No longer eligi ble based on patient's age to complete this topic IPV Vaccines Aged Out No longer eligi ble based on patient's age to complete this topic Meningococcal B Vaccine Aged Out No l onger eligible based on patient's age to complete this topic Meningococcal Vaccine Aged Out No cecilia laine eligible based on patient's age to complete this topic Rotavirus Vaccines Aged Out No longer eligible based on patient's age to complete this topic Care Teams Sales Counselor Relationship Specialty Start Date End Date Cisco Nicholson DO [address] [place] [id number] PCP - General 11/25/22
--- OUTSIDE RECORDS SUMMARY | 2025-01-06 07:04 | XMS_ITS | Clinical Summary ---
Author Organization [facility] Address [address] [place] [address] Phone Care Team Providers Care Statistician Theoretical Name Role Phone Cisco Nicholson DO Primary Care Provider [phone] Social History Tobacco Use Types Packs/Day Years Used Date Smoking Tobacco: Never Assessed Sex and Gender Information Value Date Recorded Sex Assigned at Not on file Legal Sex Male 8:48 AM EDT Gender Identity Not on file Sexual Orientation Not on file Plan of Treatment Health Maintenance Due Date Last Done Comments Lipid Panel 1945 Yearly Adult Physical 1945 DTaP/Tdap/Td Vaccines (1 - Tdap) 1965 Pneumococcal Vaccine (1 of 1 - PCV) 1993 Zoster Vaccines (1 of 2) 1993 RSV High Risk: (Elderly (60+ ) or Population) (1 - 1-dose 75+ series) 2018 COVID-19 Vaccine ( - 2023-2 5 season) 2024 Influenza Vaccine (Season Ended) 2025 HIB Vaccines Aged Out No longer eligi ble based on patient's age to complete this topic HPV Vaccines Aged Out No longer eligi ble based on patient's age to complete this topic Hepatitis A Vaccines Aged Out No long er eligible based on patient's age to complete this topic Hepatitis B Vaccines Aged Out No long er eligible based on patient's age to complete this topic IPV Vaccines Aged Out No longer eligi ble based on patient's age to complete this topic Meningococcal Vaccine Aged Out No cecilia laine eligible based on patient's age to complete this topic Rotavirus Vaccines Aged Out No longer eligible based on patient's age to complete this topic Care Teams Statistician Theoretical Relationship Specialty Start Date End Date Cisco Nicholson DO PCP - General 03/04/23
--- OUTSIDE RECORDS SUMMARY | 2025-01-06 07:05 | XMS_ITS | Clinical Summary ---
Author Organization [facility] Address [address] [place] [address] Care Team Providers Care Supervisor Photoengraving Name Role Phone Cisco Nicholson DO Primary Care Provider [phone] Allergies Active Allergy Reactions Criticality Noted Date Comments Nirmatrelvir High 01/28/2024 Other Reaction(s): Confusion Ritonavir High 01/28/2024 Other Reaction(s): Confusion Medications aspirin 81 MG chewable tablet Chew 1 tablet every day by oral route. Active atorvastatin (Lipitor) 80 MG tablet Take 1 tablet by mouth in the morning. 2 Active busPIRone (Buspar) 15 MG tablet Take 1 tablet by mouth in the morning. Active gabapentin (Neurontin) 300 MG capsule Take 1 capsule 4 times a day by oral route for 90 days. 2 Active metoprolol tartrate (Lopressor) 25 MG tablet TAKE ONE-HALF TABLET BY MOUTH TWICE DAILY 3 Active temazepam (Restoril) 15 MG capsule 1 PO q HSTEMAZEPAM 15 MG CAPS 3 Active latanoprost (Xalatan) 0.005 % ophthalmic solution 1 drop into each eye Ophthalmic Once a day at night 3 Active brimonidine (AlphaGAN P) 0.2 % ophthalmic solution every 12 (twelve) hours Active Ferrous Sulfate (IRON PO) Take 1 tablet by mouth in the morning. Active Paxlovid, 300/100, 20 x 150 MG & 10 x 100MG tablet therapy pack TAKE 3 TABLETS BY MOUTH TWICE A DAY FOR 5 DAYS 3 Active Active Problems Problem Noted Date Diagnosed Date Diplopia 01/08/2024 Primary open angle glaucoma (POAG) of both eyes, moderate stage 04/10/2023 Dry eyes 04/10/2023 PCO (posterior capsular opacification), bilatera l 04/10/2023 Blepharitis of upper and lower eyelids of both e yes 04/10/2023 Social History Tobacco Use Types Packs/Day Years Used Date Smoking Tobacco: Former Cigarettes Smokeless Tobacco: Never Tobacco Cessation:Counseling Given: Not Answered Sex and Gender Information Value Date Recorded Sex Assigned at Not on file Legal Sex Male 8:32 PM EDT Gender Identity Not on file Sexual Orientation Not on file Last Filed Vital Signs Vital Sign Reading Time Taken Comments Blood Pressure 128/80 08/29/2019 12:00 PM EST Pulse - - Temperature - - Respiratory Rate - - Oxygen Saturation - - Inhaled Oxygen Concentration - - Weight 90.7 kg (200 lb) 08/30/2020 12:00 PM EST Height 188 cm (6' 2 ) 08/30/2020 12:00 PM EST Body Mass Index 25.68 08/30/2020 12:00 PM EST Plan of Treatment Upcoming Encounters Date Type Department Care Team (Late st Contact Info) Description 01/10/2025 9:00 AM EDT Office Visit [facility] [address] [place] [address] Jaden Slaughter DO [address] [place] [address] Health Maintenance Due Date Last Done Comments Pneumococcal Vaccine: 65+ Ye ars (2 of 2 - PCV) 08/17/2013 08/17/2012 Influenza Vaccine Completed 05/04/2024, , 06/29/2019, Additional history exists Insurance MEDICARE [employer] Care Teams Supervisor Photoengraving Relationship Specialty Start Date End Date Cisco Nicholson DO PCP - General Internal Medicine 04/09/23
--- OUTSIDE RECORDS SUMMARY | 2025-01-06 07:05 | XMS_ITS | Clinical Summary ---
Author Organization [facility] Address [address] [place] [address] Care Team Providers Care Survey Research Professor Name Role Phone Unavailable Primary Care Provider Unavailabl e Social History Tobacco Use Types Packs/Day Years Used Date Smoking Tobacco: Never Assessed Sex and Gender Information Value Date Recorded Sex Assigned at Not on file Legal Sex Male 10:11 AM EST Gender Identity Not on file Sexual Orientation Not on file Plan of Treatment Health Maintenance Due Date Last Done Comments Anxiety Screening 1961 Depression Screening 1961 DTaP,Tdap,Td Vaccine (1 - Tdap) 1962 Diabetes Screening 1988 Pneumococcal Vaccine: 50+ (1 of 1 - PCV) 1993 Shingrix Vaccine (1 of 2) 1993 RSV Vaccine (1 - 1-dose 75+ series) 2018 Covid-19 Vaccine (1 - 2023- season) 2024 Advance Directive Discussion 08/17/2024 Influenza Vaccine (Season Ended) 2025 Insurance MEDICARE
--- OUTSIDE RECORDS SUMMARY | 2025-01-06 07:05 | XMS_ITS | Clinical Summary ---
Author Organization [facility] Address [id number] [address] [place] [address] Care Team Providers Care Pesticide Control Inspector Name Role Phone Cisco Nicholson DO Primary Care Provider [phone] Allergies No known active allergies Medications aspirin 81 mg Take 81 mg by mouth daily. Active busPIRone (BUSPAR) 15 mg tablet Take 15 mg by mouth 2 (two) times a day. Active gabapentin (NEURONTIN) 300 mg capsule Take 300 mg by mouth 3 (three) times a day. Active temazepam (RESTORIL) 7.5 mg capsule Take 15 mg by mouth nightly as needed for sleep. Active latanoprost (XALATAN) 0.005 % ophthalmic solution 1 drop nightly. Active brimonidine (ALPHAGAN) 0.2 % ophthalmic solution 1 drop 2 (two) times a day. Active ouxmquem-mgwe-M A-calcium &mins (THERAGRAN-M) 9 mg iron-400 mcg tablet Take 1 tablet by mouth daily. Active metoprolol tartrate (LOPRESSOR) 25 mg tablet Take 12.5 mg by mouth 2 (two) times a day. Active atorvastatin (LIPITOR) 80 mg tablet Take 80 mg by mouth daily. Active Family History Medical History Relation Name Comments Heart disease Father No Known Problems Mother Relation Name Status Comments Father Mother Social History Tobacco Use Types Packs/Day Years Used Date Smoking Tobacco: Never Smokeless Tobacco: Never Alcohol Use Standard Drinks/Week Comments Never 0 (1 standard drink = 0.6 oz pur e alcohol) AUDIT-C Answer Date Recorded Frequency of Alcohol Consumption Never 09/26/2019 Average Number of Drinks Not on file 020 Frequency of Binge Drinking Not on file 09/17 Childcare Answer Date Recorded Childcare Unknown 09/26/2019 Employment Answer Date Recorded Employment Unknown 09/26/2019 Purpose - Life Answer Date Recorded Purpose and direction in life Unknown Sex and Gender Information Value Date Recorded Sex Assigned at Not on file Legal Sex Male 12:16 PM EST Gender Identity Not on file Sexual Orientation Not on file Last Filed Vital Signs Vital Sign Reading Time Taken Comments Blood Pressure 139/81 10/05/2019 2:40 PM EST Pulse 66 10/05/2019 2:45 PM EST Temperature 36.2 C (97.2 F) 10/05/2019 1:10 PM EST Respiratory Rate 14 10/05/2019 2:45 PM EST Oxygen Saturation 94% 10/05/2019 2:45 PM EST Inhaled Oxygen Concentration - - Weight 99.8 kg (220 lb) 10/05/2019 10:27 AM EST Height 188 cm (6' 2.02 ) 10/05/2019 10:27 AM EST Body Mass Index 28.23 10/05/2019 10:27 AM EST Plan of Treatment Health Maintenance Due Date Last Done Comments Depression Screening 1955 Tobacco Screening 1955 DTaP,Tdap and Td Vaccines (1 - Tdap) 1962 Zoster (Shingles) Vaccine (1 of 2) 1993 Fall Risk Screening 2008 Influenza Vaccine 04/17/2025 Medical Devices Implanted Type [employer] Device Identifier Shelf Expiration Date Model / Serial / Lot Anch Sut 4.75mm 2 Heal[employer]il - [id number] - [id number] Implanted:Qty: 1 on 10/05/2019 by Heriberto Boykin DO at [facility] [place] Right: Shoulder [employer] 04/04/2022 [id number] / [id number] / [id number] Anch Sut 4.75mm 2 Healicoil - [id number] - [id number] Implanted:Qty: 1 on 10/05/2019 by Heriberto Boykin DO at [facility] [place] Right: Shoulder [employer] 06/04/2022 [id number] / [id number] / [id number] Anch Sut 4.75mm 2 Regenesorb - [id number] - [id number] Implanted:Qty: 1 on 10/05/2019 by Heriberto Boykin DO at [facility] [place] Right: Shoulder [employer] 04/04/2022 [id number] / [id number] / [id number] Anch Sut 5.5mm Multifix S Ult Rpl [id number] - [id number] - [id number] Implanted:Qty: 1 on 10/05/2019 by Heriberto Boykin DO at [facility] [place] Right: Shoulder [employer] 04/04/2022 [id number] / [id number] / [id number] Anch Sut 5.5mm Multifix S Ult Rpl [id number] - [id number] - [id number] Implanted:Qty: 1 on 10/05/2019 by Heriberto Boykin DO at [facility] [place] Right: Shoulder [employer] 06/04/2022 [id number] / [id number] / [id number] Anch Sut 5.5mm Multifix S Ult Rpl [id number] - [id number] - [id number] Implanted:Qty: 1 on 10/05/2019 by Heriberto Boykin DO at [facility] [place] Right: Shoulder [employer] 06/04/2022 [id number] / [id number] / [id number] Insurance MEDICARE [facility] Care Teams Pesticide Control Inspector Relationship Specialty Start Date End Date Cisco Nicholson DO [address] [place] [address] PCP - General Internal Medicine 10/04/19
--- OUTSIDE RECORDS SUMMARY | 2025-01-06 07:05 | XMS_ITS | Patient Health Record ---
Author Organization [facility] [place] Address [address] [place] [address] Care Team Providers Care Conduit Cleaner Name Role Phone Cisco Nicholson DO Primary Care Provider Deniz Villa Unavailable [phone] Gabriela Koch Unavailable [phone] Allergies No Known Allergies Reason For Referral No Information Medications Medication SIG (Take, Route, Frequency, Duration) Notes Start Date End Date Status Aspirin 81 81 MG 1 tablet Orally Once a day 02/11/2024 Active Atorvastatin Calcium 80 MG 1 tablet Oral ly Once a day 02/11/2024 Active Brimonidine Tartrate-Timolol 0.2-0.5 % 1 drop into affected eye Ophthalmic Twice a day 02/11/2024 Active busPIRone HCl 15 [...] needed Orally Once a day 02/11/2024 Active Social History Tobacco Use: Social History Observation Description Date Details (start date - stop date) Former Smoker NA - NA Tobacco Control (Standard) Question Answer Notes Tobacco use: Former smoker Problems Problem Type SNOMED Code ICD Code Onset Dates Problem Status W/U Status Risk Notes Problem Altered mental status (R41.82) Active confirmed Vital Signs Heart Rate 66 /min 10/20/2024 Temperature 97.4 degrees Fahrenheit 10/20/2024 Respiratory Rate 16 /min 07/25/2024 Oximetry 97 % 10/20/2024 Height 74 in 10/20/2024 Weight 180 lbs 10/20/2024 BMI 23.11 kg/m2 10/20/2024 Encounters Encounter Location Date Provider Diagnosis [facility] (PODIATRY) [address] [place] [address] [place] [address] 02/11/2024 Gabrieladev Koch Onycholysis L60.1 ; Ingrowing nail L60.0 and Tinea unguium B35.[address] [facility] (PODIATRY) [address] [place] [address] [place] [address] 10/20/2024 Peter Ale Onycholysis L60.1 and Altered mental status R41.[address] [facility] (PODIATRY) [address] [place] [address] [place] [address] 04/26/2024 Gabriela Koch Altered mental status R41.[address] [facility] (PODIAT[facility]) [address] [place] [address] [place] [address] 07/25/2024 Gabrieladev Koch Onycholysis L60.1 Assessments Encounter Date Diagnosis (ICD Code) Assessment Notes Treatment Notes Treatment Clinical Notes Section Notes 04/26/2024 Altered mental status (ICD-10 - R41.82) 07/25/2024 Onycholysis (ICD-10 - L60.1) 10/20/2024 Onycholysis (ICD-10 - L60.1) 10/20/2024 Altered mental status (ICD-10 - R41.82) 02/11/2024 Onycholysis (ICD-10 - L60.1) The patient is a pleasant 78-year-old gentleman with history of neuropathy who presents for evaluation of thickened, painful toenails affecting the right first and second toes.Right hallux nail is partially detached. The loose portion was easily trimmed with nail nippers. The second toenail was trimmed which was ingrowing to the lateral nail fold.Both nails were then dremeled to a smooth finish.He was encouraged to apply Vicks VapoRub to the nails to make them softer and easier to manage.Follow-u p in 3 months for a nurse visit or at his discretion. The patient is happy with the plan. 02/11/2024 Ingrowing nail (ICD-10 - L60.0) 02/11/2024 Tinea unguium (ICD-10 - B35.1) Plan Of Treatment No Information Insurance Providers Payer Name Payer Address Payer Phone Subscriber Number Group Number Insured Name Patient Relationship to Insured Coverage Start Date Coverage End Date [place]IC[place] [address] [place] [address] [phone] [id number] Yonatan Peterson Self - patient is the insured [facility] [address] [place] [address] [phone] [id number] Yonatan Peterson Self - patient is the insured Medical (General) History Medical History History ICD Code skin cancer high blood pressure high cholesterol neuropathy Surgical History Surgery Date(Month/Year) skin cancer removal nose 2022 left rotaor cuff 2013 right rotator [id number] inguinal hernia 2023 inguinal hernia 1973 Hospitalization History Reason Date(Month/Year) see above
--- NOTE | 2025-01-06 07:14 | CT_ITS ---
[address] [address] Patient Name: JOSE PATEL MRN: [id number] date: 1945 Sex: M Assigned Patient Location: LAB Current Patient Location: LAB Accession/Order Number: [id number] Exam Date: 01/06/2025 11:09 Report Date: 01/06/2025 11:19 At the request of: TOAN MCADAMS DO Procedure: CT abdomen pelvis w con CT abdomen pelvis w con 01/06/2025 8:58 AM SIGNS AND SYMPTOMS: Chronic right lower quadrant pain TECHNIQUE: Multidetector ct axial images of the abdomen and pelvis were obtained with IV contrast. Multiplanar reformats were performed and reviewed to further define anatomy and possible pathology. CT was performed with one or more of the following dose reduction techniques: Automated exposure control, adjustment of the mA and/or kV according to patient size, or use of iterative reconstruction technique. COMPARISON: 04/24/2023 FINDINGS: Lower Chest: Emphysematous changes are noted in the lung parenchyma. Atherosclerotic changes are noted thoracic aorta. ABDOMEN: Liver: Within normal limits. Bile Ducts: Normal caliber. Gallbladder: Stones are noted in the gallbladder lumen. Pancreas: Within normal limits. Spleen: Within normal limits. Adrenals: Within normal limits. Kidneys: Simple cysts are noted in the renal cortices requiring no further follow-up. Pelvis: Reproductive Organs: No pelvic masses. Ureters: Within normal limits. Bladder: Within normal limits. Bowel: Normal caliber. There is a normal appendix in the right lower quadrant. Mesenteric Lymph Nodes: No enlarged mesenteric lymph nodes. Peritoneum: No ascites or free air, no fluid collection. Vessels: Atherosclerotic changes are in the abdominal aorta with mild ectasia of the distal abdominal aorta. 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 Retroperitoneum: Within normal limits. Abdominal Wall: Within normal limits. Bones: Degenerative changes are noted in the lumbar spine, hips, and sacroiliac joints. There is a levoconvex curvature of the thoracolumbar spine. CT/CT abdomen pelvis w con IMPRESSION: No bowel obstruction or obstructive uropathy. There is a normal appendix in the right lower quadrant. Gallstones are present. Impression dictated by: Hernan Fernandez M.D. 01/06/2025 11:19 AM Dictation Location: [place] [address] Electronically authenticated by: [id number] Y Date: 01/06/2025 11:19
[2025-01-06 07:18] LABS: Estimated GFR (African America >60 (>=60 mL/min/1.73m^2); Estimated GFR (Non-African Ame >60 (>=60 mL/min/1.73m^2)
== END 2025-01-06 07:02 | disposition home or self-care (01) ==
LOC: LAB 07:02
PROVIDERS: PCP Internal Medicine; Visit Provider Internal Medicine
DX: R10.31 Right lower quadrant pain (principal); K80.20 Calculus of gallbladder without cholecystitis without obstruction
CPT/HCPCS: 36415; 74177; 82565; Q9967

== ENCOUNTER 2025-01-26 14:01 | Outpatient (OUT) | payer MEDICARE, SELFPAY ==
--- NOTE | 2025-01-26 16:16 | PM.WCHP ---
Wound Care H&P: HPI History of Present Illness Narrative: Mr. Peterson is a pleasant 79-year-old gentleman with history of peripheral neuropathy who presents for routine toenail care. He has no complaints in regards to his feet at this time but does have complaints of temperature changes (feeling cold) and paresthesias in his feet, worse at night. [facility] Medical History (Updated 01/26/25 @ 16:19 by KATHI Jiménez) Insomnia ?G47.00 - Insomnia, unspecified (ICD-10) Neuropathy ?G62.9 - Polyneuropathy, unspecified (ICD-10) Irritable bowel syndrome with constipation ?K58.1 - Irritable bowel syndrome with constipation (ICD-10) GERD (gastroesophageal reflux disease) ?K21.9 - Gastro-esophageal reflux disease without esophagitis (ICD-10) Encephalopathy ?G93.40 - Encephalopathy, unspecified (ICD-10) Cholelithiases ?K80.20 - Calculus of gallbladder without cholecystitis without obstruction (ICD-10) Colon polyp ?K63.5 - Polyp of colon (ICD-10) Glaucoma ?H40.9 - Unspecified glaucoma (ICD-10) Anxiety ?F41.9 - Anxiety disorder, unspecified (ICD-10) Rib fracture (06/2022) ?S22.39XA - Fracture of one rib, unspecified side, initial encounter for closed fracture (ICD-10) Pneumothorax (06/2022) ?J93.9 - Pneumothorax, unspecified (ICD-10) Constipation ?K59.00 - Constipation, unspecified (ICD-10) Inguinal hernia ?K40.90 - Unilateral inguinal hernia, without obstruction or gangrene, not specified as recurrent (ICD-10) Hypertension ?I10 - Essential (primary) hypertension (ICD-10) High cholesterol ?E78.00 - Pure hypercholesterolemia, unspecified (ICD-10) COVID-19 (06/17/23) ?U07.1 - COVID-19 (ICD-10) Surgical History (Updated 08/19/23 @ 09:21 by Anahi Tellez) H/O eye surgery ?Z98.890 - Other specified postprocedural states (ICD-10) History of arthroscopy of shoulder ?Z98.890 - Other specified postprocedural states (ICD-10) History of arthroscopy of shoulder ?Z98.890 - Other specified postprocedural states (ICD-10) History of cardiac catheterization ?Z98.890 - Other specified postprocedural states (ICD-10) History of arthroscopy of shoulder ?Z98.890 - Other specified postprocedural states (ICD-10) History of esophagogastroduodenoscopy (EGD) ?Z98.890 - Other specified postprocedural states (ICD-10) History of colonoscopy ?Z98.890 - Other specified postprocedural states (ICD-10) History of hernia repair ?Z98.890 - Other specified postprocedural states (ICD-10) ?Z87.19 - Personal history of other diseases of the digestive system (ICD-10) Family History (Updated 08/07/23 @ 10:22 by Ingrid Coronel NP) Other Family history of brain cancer Family history of gastric cancer Family history of myocardial infarction Social History (Updated 08/07/23 @ 10:10 by Ingrid Coronel NP) Within the past year, how often did you have a drink containing alcohol: never Score interpretation: A score less than 4 is consistent with normal alcohol consumption. Smoking status: Never smoker Non-prescribed substance use: denies use Previous occupational history: [employer] Highest level of school completed/degree received: high school graduate Meds Home Medications and Allergies Home Medications ?Medication ?Instructions ?Recorded ?Confirmed ?Type atorvastatin 80 mg tablet 80 mg PO DAILY 06/19/23 08/19/23 History buspirone 15 mg tablet 15 mg PO BID 06/19/23 08/19/23 History gabapentin 300 mg capsule 300 mg PO QID 06/19/23 08/19/23 History metoprolol tartrate 25 mg tablet 12.5 mg PO Q12H 06/19/23 08/19/23 History temazepam 15 mg capsule 15 mg PO DAILY 06/19/23 08/19/23 History aspirin 81 mg tablet,delayed 81 mg PO DAILY 08/07/23 08/19/23 History release (Adult Aspirin Regimen) brinzolamide 1 %-brimonidine 0.2 % drp ophthalmic (eye) BID 08/07/23 History eye drops,suspension (Simbrinza) latanoprost 0.005 % eye drops drp ophthalmic (eye) QPM 08/07/23 History multivitamin (Daily Multi-Vitamin 1 tab PO DAILY 08/07/23 08/19/23 History tablet) tramadol 50 mg tablet 50 mg PO Q6H PRN pain #7 tabs 08/19/23 Rx ondansetron 4 mg disintegrating 4 mg PO Q6H PRN nausea and 08/23/23 Rx tablet vomiting #20 tabs Allergies Allergy/AdvReac Type Severity Reaction Status Date / Time nirmatrelvir (From Paxlovid) Allergy mental Verified 08/19/23 22:02 status change ritonavir (From Paxlovid) Allergy mental Verified 08/19/23 22:02 status change Exam Narrative: Exam Narrative: Derm: Toenails 1 through 10 are thickened, elongated, and painful.? No evidence of paronychia.? Skin is diffusely dry, thin, and atrophic.? Vascular: DP and PT pulses are 2/4 bilaterally..? Capillary refill is less than 3 seconds to all toes. Digital hair is absent bilaterally. Neuro: Vibratory sensation is absent bilaterally.? Achilles deep tendon reflex is absent bilaterally.? Protective sensation was tested with a monofilament and is present in 2/5 areas tested on the right and 0/5 areas tested on the left.? Musculoskeletal: No gross deformity.? Strength 5/5 in all planes bilaterally Assessment and Plan Assessment and Plan (1) Other specified polyneuropathies: (2) Tinea unguium: Plan The patient's 9 remaining toenails were sharply debrided without incident. Follow-up in 3 months for routine nail care. Acute Procedures Podiatry Nail Debridement Class B Findings Advanced trophic changes as evidenced by any three of the following: decreased hair growth, nail changes (thickening) and skin texture (thin or shiny) Class C Findings Claudication: No Temperature changes: Yes Edema: No Nail debridement paresthesia (abnormal spontaneous sensations in the feet): Yes Burning: No Qualifies If: Qualifiers If:: A patient qualifies for nail debridement if they have: 1 class A finding (Q7) 2 class B findings (Q8) OR 1 class B & 2 class C findings in addition to a primary condition (Q9) Nail Procedure Nail Procedure Time out: Yes Nail procedure: other (Toenail debridement) Number of affected nails: 9 Location (toes): left and right Procedure successful: Yes Patient tolerated procedure: well and no complications Additional comments: All toenails with the exception of the left hallux nail which is absent were trimmed with nail nippers without incident
== END 2025-01-26 14:02 | disposition home or self-care (01) ==
LOC: WC 14:02
PROVIDERS: PCP Internal Medicine; Visit Provider Physician Assistant
DX: G62.89 Other specified polyneuropathies (principal); B35.1 Tinea unguium
CPT/HCPCS: 11721

== ENCOUNTER 2025-02-12 18:00 | Emergency (ER) | payer MEDICARE, SELFPAY ==
[2025-02-12] VITALS (7 sets, daily range): BP systolic 147–171; BP diastolic 78–84; PULSE 64–74; TEMP 36.7; O2SAT 97–99; BMI 16.4
--- OUTSIDE RECORDS SUMMARY | 2025-02-12 18:12 | XMS_ITS | CCD ---
Author Organization [facility] InformCounts include 234 beds at the [facility] Care Team Providers Care Director Public Name Role Phone MD Alek Oliva Attending Provider [phone] DO Cisco Nicholson Primary Care Provider MIGUEL [...] Care DO Cisco Ivey Primary Care Provider [phone] DO Alejo Lynn Emergency Provider MD Bobo Villagomez Admit Provider MD Bobo Villagomez Attending Provider MD Berhane Trammell Other Provider DO Cisco Nicholson Primary Care Provider MD Sandoval Palacios Jr Emergency Provider MD Warren Quiroz Admit Provider MD Warren Quiroz Attending Provider Cisco Nicholson Primary [facility] Unavailable Asaad, Imad Admitting Unavailable Asaad, Imad Attending Unavailable Cisco Nicholson Primary Care Unavailable Angely Lee Attending Unavailable Bobo Villagomez Admitting Unavailable Berhane Trammell Consulting Unavailable Berhane Trammell Consulting Unavailable Cisco Nicholson Primary Care Unavailable Warren Quiroz Admitting Unavailable Maren Petersen Attending Unavailable Cisco Nicholson Primary Care Unavailable PjDandren Admitting Unavailable JpDandren Attending Unavailable CISCO NICHOLSON Primary Care Physician Angely OCAMPO Attending Unavailable Angely OCAMPO Attending Unavailable CISCO NICHOLSON Referring Unavailable Cisco Nicholson MD Primary Care Provider ZEV PRIETO Attending Unavailable Cisco Nicholson DO Primary Care Provider MIGUEL ANGEL SLAUGHTER Attending Unavailable CHEYANNE ALBARRAN Attending Unavailable CHEYANNE ALBARRAN Referring Unavailable MIGUEL ANGEL SLAUGHTER Attending Unavailable MIGUEL ANGEL SLAUGHTER Attending Unavailable Allergies Allergy Classification Reported Allergen(s) Allergy Type Date of Onset Reaction(s) Facility (20 sources) Ritonavir; Translations: [ritonavir] Drug Allergy 3 [facility] (20 sources) nirmatrelvir; Translations: [nirmatrelvir] Propensity to adverse reactions 3 Confusion [facility] (1 source) No Known Medication Allergies; Translations: [No Known Medication Allergies] Propensity to adverse reactions (disorder) [facility] Repository Medications Current Medications Medication Drug Class(es) Dates Sig (Normalized) Sig (Original) aspirin 81 mg delayed release oral tablet (20 sources) Platelet Aggregation Inhibitor, Nonsteroidal Anti-inflammatory Drug Start: 03-01-2023 take 1 tablet by mouth once daily Aspirin 81 mg Tablet,Delayed Release (Dr/Ec) Active 81 MG PO Daily March 01, [...] % Drops Active 1 DROPS EYE-BOTH Daily March 01, 2023 12:00am Start: 03-01-2023 take 1 drop(s) into the [...] Active brimonidine tartrate 2 mg/ml ophthalmic solution (8 sources) alpha-Adrenergic Agonist brimonidine (AlphaGAN P) 0.2 % ophthalmic solution every 12 (twelve) hours Active brimonidine tartrate 2 mg/ml / brinzolamide 10 mg/ml ophthalmic suspension (20 sources) Carbonic Anhydrase Inhibitor, alpha-Adrenergic Agonist Start: 02-09-2025 take 1 drop(s) into the eye(s) at bedtime Simbrinza 1-0.2 % suspension Indications: Primary open angle glaucoma (POAG) of both eyes, moderate stage INSTILL 1 DROP INTO BOTH EYES IN THE MORNING AND BEFORE BEDTIME 24 mL 3 02/09/2025 Active Start: 07-28-2024 End: 10-26-2024 take 1 drop(s) into the eye(s) in the morning Brinzolamide-Brimonidine (Simbrinza) 1-0 .2 % suspension Indications: Primary open angle glaucoma (POAG) of both eyes, moderate stage (CMS/HCC) Administer 1 drop into both eyes in the morning and 1 drop before bedtime. 16 mL 3 07/28/2024 10/26/2024 Active Start: 06-13-2024 End: 07-28-2024 take 1 drop(s) into the eye(s) twice daily Simbrinza 1-0.2 % suspension Indications : Primary open angle glaucoma (POAG) of both [...] Drops,Suspension Active 1 DROPS EYE-BOTH Twice daily March [...] 2024 7:33am Start: 08-25-2022 End: 03-01-2023 take 1 tablet by mouth once daily Buspirone 15 mg Tablet Discontinued 15 MG PO Daily August 25, 2022 1:00am March 01, 2023 9:05am busPIRone HCl Ac tive ferrous sulfate (8 sources) take 1 tablet by mouth in the morning Ferrous Sulfate (IRON PO) Take 1 tablet by mouth in the morning. Active gabapentin 300 mg oral capsule (20 sources) Anti-epileptic Agent Start: 07-28-2024 End: 10-28-2024 take 1 capsule by mouth four times daily Gabapentin 300 mg capsule Active 0 .ROUTE .COMPLEX 360 October 28, 2024 1:08pm TAKE 1 CAPSULE BY MOUTH 4 TIMES DAILY Start: 08-25-2022 End: 03-02-2023 take 1 capsule by mouth three times daily Gabapentin 300 mg capsule Discontinued 300 MG PO Three times daily August 25, 2022 1:00am March 02, 2023 5:25pm Start: 08-04-2022 End: 07-28-2024 take 1 capsule by mouth four times daily gabapentin (Neurontin) 300 MG capsule Take 1 capsule 4 times a day by oral route for 90 days. 08/04/2022 Active Gabapentin Activ e hydrocortisone 10 mg/ml / neomycin 3.5 mg/ml / polymyxin b [id number] unt/ml otic suspension (3 sources) Aminoglycoside Antibacterial, Polymyxin-class Antibacterial, Corticosteroid Start: 12-12-2024 Jigtyzym-Zvfawwhcq-Bw 3.5-10,000-1 mg/mL-unit/mL-% drops,suspension Active 4 DROPS OTIC Every 8 hours 10 7 December 12, 2024 12:00am irbesartan (20 sources) Angiotensin 2 Receptor Zachary Irbesartan Active latanoprost 0.05 mg/ml ophthalmic solution (20 sources) Prostaglandin Analog Start: 01-12-2025 End: 04-12-2025 take 1 drop(s) into the eye(s) at bedtime latanoprost (Xalatan) 0.005 % ophthalmic solution Indications: Primary open angle glaucoma (POAG) of both eyes, moderate stage Administer 1 drop into both eyes at bedtime 7.5 mL 3 01/12/2025 04/12/2025 Active Start: 07-28-2023 End: 01-12-2025 take 1 drop(s) into the eye(s) once daily latanoprost (Xalatan) 0.005 % ophthalmic solution 1 drop into each eye Ophthalmic Once a day at night 07/28/2023 01/12/2025 Discontinued (Reorder) Start: 07-28-2023 latanoprost Op th 0.005% Nisa 1 drop(s), OPTH, Once a day (at bedtime), 2.5 mL, Refill(s) 0 Start Date: 07/28/23 Status: Ordered Start: 08-25-2022 End: 03-01-2023 Latanoprost 0.005 % drops Discontinued 1 DROPS EYE-BOTH As Directed August 25, 2022 1:00am March 01, 2023 9:05am Start: 08-25-2022 End: 03-01-2023 Latanoprost Discontinued 1 D ROPS EYE-BOTH As Directed August 25, 2022 1:00am March 01, 2023 9:05am Multivitamin preparation (11 sources) Start: 07-28-2023 take 1 tablet by mouth once daily multivitamin 1 tab(s), Oral, Daily, Refill(s) 0 Start Date: 07/28/23 Status: Ordered Start: 03-01-2023 take 1 tablet by kelly th once daily Multivitamin Active 1 TAB PO Daily March 01, 2023 12:00am Multivitamin Tablet (9 sources) Start: 03-01-2023 take 1 tablet by mouth once daily Multivitamin Tablet Active 1 TAB PO Daily March 01, 2023 12:00am Start: 03-01-2023 take 1 tablet by kelly th once daily Multivitamin Tablet Active 1 TAB PO Daily February 28, 2023 11:00pm pantoprazole 40 mg delayed release oral tablet (20 sources) Proton Pump Inhibitor Start: 09-03-2022 take 1 tablet by mouth twice daily Pantoprazole Sodium 40 MG 1 tablet Orally twice daily Aug, Active Start: 08-27-2022 take 1 tablet by kelly once daily Pantoprazole 40 mg Tablet,Delayed Release (Dr/Ec) Active 40 MG PO Daily March 01, [...] & 10 x 100MG tablet therapy pack (8 sources) Start: 06-18-2023 take 3 tablets by mouth twice daily Paxlovid, 300/100, 20 x 150 MG & 10 x 100MG tablet therapy pack TAKE 3 TABLETS BY MOUTH TWICE A DAY FOR 5 DAYS 06/18/2023 Active Ranitidine & Diet Manage Prod (20 sources) Ranitidine & t Manage Prod Active temazepam 15 mg oral capsule (20 sources) Benzodiazepine Start: 08-19-2022 End: 10-05-2024 take 1 capsule by mouth once temazepam (Restoril) 15 MG capsule 1 PO q HSTEMAZEPAM 15 MG CAPS 11/02/2022 Active Temazepam Active tetracycline hydrochloride 500 mg oral capsule (20 sources) Tetracycline-class Antimicrobial Start: 09-03-2022 take 1 capsule by mouth four times daily Tetracycline HCl 500 MG 1 capsule on an empty stomach Orally 4 TIMES DAILY for 14 days Aug, Active valACYclovir 1000 mg oral tablet (4 sources) Herpesvirus Nucleoside Analog DNA Polymerase Inhibitor, Herpes Simplex Virus Nucleoside Analog DNA Polymerase Inhibitor, Herpes Zoster Virus Nucleoside Analog DNA Polymerase Inhibitor Start: 11-15-2024 Valacyclovir 1 gram tablet Active 1000 MG PO Three times daily 06 03November 15, 2024 12:00am {20 (nirmatrelvir 150 MG Oral Tablet) / [...] ointment Discontinued 1 APPLIC OPHTHALMIC Daily October 27, [...] a day for 14 days Mar, Active cephalexin 500 mg oral capsule (20 sources) Cephalosporin Antibacterial Start: 09-07-2024 End: 09-14-2024 take 1 capsule by mouth three times daily Cephalexin 500 mg capsule Discontinued 500 MG PO Three times daily 06 03September 07, 2024 1:00am September 14, 2024 10:00am Start: 11-21-2022 take 1 capsule by mo uth twice daily Cephalexin 500 MG 1 capsule Orally twice daily for 5 days Nov, Active Start: 03-19-2019 take 1 capsule by mo uth every eight hours Cephalexin 500 MG 1 capsule Orally tid for 5 day(s) Mar, Active doxycycline hyclate 100 mg oral capsule (17 sources) Tetracycline-class Drug Start: 09-14-2024 End: 12-28-2024 take 1 capsule by mouth once daily Doxycycline Hyclate 100 mg capsule Discontinued 100 MG PO daily 05 26September 21, 2024 11:10am October 04, 2024 12:16pm escitalopram 5 mg oral tablet (20 sources) Serotonin Reuptake Inhibitor Start: 11-10-2023 End: 01-28-2024 take 2 tablets by mouth once daily Escitalopram Oxalate 5 mg tablet Discontinued 5 MG PO Daily November 10, 2023 12:00am January 28, 2024 9:06am Take daily w/ 10mg dose Start: 11-10-2023 [...] q HS for 30 days Sep, Active metoprolol tartrate 25 mg oral tablet (20 sources) beta-Adrenergic Zachary Start: 12-15-2023 End: 09-13-2024 Metoprolol Tartrate 25 mg tablet Discontinued 12.5 MG PO Twice daily July 11, 2024 1:00am September 13, 2024 9:35pm Start: 12-15-2023 take 12.5 mg by mout [...] food Orally Twice a day Aug, Active metroNIDAZOLE 250 mg oral tablet (20 sources) Nitroimidazole Antimicrobial Start: 09-03-2022 End: 03-02-2023 take 1 tablet by mouth four times daily Metronidazole 250 mg Tablet Discontinued 250 MG PO Four times daily March 01, 2023 12:00am March 02, 2023 5:23pm mupirocin 0.02 mg/mg topical ointment (20 sources) RNA Synthetase Inhibitor Antibacterial Start: 09-07-2024 End: 10-10-2024 Mupirocin 2 % ointment Discontinued 1 APPLIC TOPICAL Twice daily 07 06September 21, 2024 11:10am October 10, 2024 6:08pm Nirmatrelvir-Ritona vir (16 sources) Start: 06-20-2023 End: 06-22-2023 Nirmatrelvir-Riton avir [...] mg / trimethoprim 160 mg oral tablet (15 sources) Dihydrofolate Reductase Inhibitor Antibacterial, Sulfonamide Antimicrobial Start: 11-06-2023 End: 03-19-2024 take 1 tablet by mouth twice daily Sulfamethoxazole-Trimethoprim 800-160 mg tablet Discontinued 1 TAB PO Twice daily 14 November 06, 2023 12:00am March 19, 2024 9:20am Problems Active Problems Problem Classification Problem Date Documented Da te Episodic/Chronic Abdominal hernia (9 sources) Unilateral inguinal hernia, without obstruction or gangrene, not specified as recurrent; Translations: [Inguinal hernia] Onset: 07-28-2023 Episodic Abdominal pain (18 sources) Right lower quadrant pain; Translations: [Abdominal pain] Episodic Anxiety disorders (20 sources) Generalized anxiety disorder; Translations: [Generalized anxiety disorder] Chronic Aortic; peripheral; and visceral artery aneurysms (20 sources) Aneurysm of ascending aorta; Translations: [Ascending aortic aneurysm] Onset: 12-13-2024 12-31-2023 Chronic Comment on above: Echo: 4.2cm - 12/2023 Echo: 4.2cm - 12/2023 , 3.8cm - 12/2024 Biliary tract disease (20 sources) Cholelithiasis without obstruction; Translations: [Calculus of gallbladder without cholecystitis without obstruction] Episodic Cataract (14 sources) Age-related nuclear cataract, right eye; Translations: [After-cataract of bilateral eyes] Onset: 03-20-2022 Chronic Chronic obstructive pulmonary disease and bronchiectasis (4 sources) Emphysema, unspecified; Translations: [Pulmonary emphysema] Onset: 07-02-2022 07-14-2023 Chronic Chronic ulcer of skin (20 sources) Ulcer of lower extremity; Translations: [Non-pressure chronic ulcer of unspecified part of unspecified lower leg with unspecified severity] 09-07-2024 Chronic Conditions associated with dizziness or vertigo (4 sources) Dizziness and giddiness; Translations: [DIZZINESS AND GIDDINESS] Onset: 09-14-2022 Episodic Coronary atherosclerosis and other heart disease (20 sources) Coronary arteriosclerosis; Translations: [Atherosclerotic heart disease of [place] coronary artery without angina pectoris] Onset: 12-13-2024 11-27-2023 Chronic Comment on above: Echo: LVEF 60%, LITZY - 12/2023 Echo: LVEF 60%, LITZY, normal RV size/function - 12/2024 Echo: LVEF 60%, LITZY, normal RV size/function - 12/2023,Echo: LVEF 55%, normal RV size/function, RSVP 12/2024 Crushing injury or internal injury (1 source) Traumatic pneumothorax, initial encounter; Translations: [TRAUMATIC PNEUMOTHORAX INITIAL ENC] Onset: 07-01-2022 Episodic Diseases of mouth; excluding dental (5 sources) Aphthous ulcer of mouth; Translations: [Recurrent oral aphthae] 11-15-2024 Episodic Disorders of lipid metabolism (20 sources) Pure hypercholesterolemia, unspecified; Translations: [Familial hypercholesterolemia] Onset: 08-02-2022 Chronic E Codes: Adverse effects of medical drugs (18 sources) Adverse reaction to drug; Translations: [Adverse [...] 09-16-2022 Chronic Genitourinary symptoms and ill-defined conditions (14 sources) Polyuria; Translations: [Polyuria] 03-14-2024 Episodic Glaucoma (20 sources) Primary open-angle glaucoma, right eye, moderate stage; Translations: [Glaucoma] Onset: 03-25-2022 07-14-2023 Chronic Hyperplasia of prostate (15 sources) Benign prostatic hyperplasia; Translations: [Benign prostatic [...] 03-28-2022 Episodic Other aftercare (1 source) Other exterminator termite (current) drug therapy; Translations: [OTH M[facility] CURRENT DRUG THERAPY] Onset: 09-16-2022 Episodic Other aftercare (1 source) retirement (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; Translations: [MCC CURRENT USE OF ASPIRIN] Onset: 09-16-2022 Episodic Other and ill-defined cerebrovascular disease (20 sources) Cerebral atherosclerosis; Translations: [Cerebral atherosclerosis] 10-27-2023 Chronic Other and ill-defined cerebrovascular disease (3 sources) Cerebral atherosclerosis Chronic Other and unspecified benign neoplasm (20 sources) Adenomatous polyp of colon ; Translations: [Benign neoplasm of descending colon] 07-14-2023 Episodic Other connective tissue disease (17 sources) Pain in lower limb; Translations: [Pain in right leg] 03-01-2023 Episodic Comment on above: Problem List clean-u p per request of Phys. EHR Cmte Other connective tissue disease (8 sources) Swelling of bilateral lower limbs; Translations: [Other specified soft tissue disorders] 07-11-2024 Episodic Other connective tissue disease (16 sources) Other specified soft tissue disorders; Translations: [Swelling of limb] 07-11-2024 Episodic Other diseases of veins and lymphatics (9 sources) Venous insufficiency of leg; Translations: [Venous insufficiency (chronic) (peripheral)] 07-11-2024 Episodic Other diseases of veins and lymphatics (20 sources) Venous insufficiency (chronic) (peripheral); Translations: [Venous (peripheral) insufficiency, unspecified] 07-11-2024 Episodic Other ear and sense organ disorders (2 sources) Sensorineural hearing loss; Translations: [Unspecified sensorineural hearing loss] 12-12-2024 Chronic Other ear and sense organ disorders (2 sources) Unspecified sensorineural hearing loss; Translations: [Sensorineural hearing loss, unspecified] 12-12-2024 Chronic Other ear and sense organ disorders (2 sources) Unspecified otitis externa, left ear; Translations: [Infective otitis externa, unspecified] 12-12-2024 Chronic Other ear and sense organ disorders (4 sources) Impacted cerumen, unspecified ear; Translations: [Impacted cerumen] 10-28-2024 Episodic Other ear and sense organ disorders (2 sources) Otorrhagia, left ear; Translations: [Other otorrhea] 12-12-2024 Episodic Other fractures (1 source) Multiple fractures [...] with constipation] 07-14-2023 Chronic Other gastrointestinal disorders (16 sources) Irritable bowel syndrome with constipation; Translations: [Irritable bowel syndrome] Chronic Other hereditary and degenerative nervous system conditions (15 sources) Impaired cognition; Translations: [Mild cognitive impairment, so stated] Chronic Other hereditary and degenerative nervous system conditions (19 sources) Mild cognitive impairment, so stated; Translations: [...] Onset: 06-20-2023 Chronic Other nervous system disorders (19 sources) Neuropathy; Translations: [Polyneuropathy, unspecified] Onset: 06-20-2023 06-20-2023 Chronic Other nervous system disorders (9 sources) Metabolic encephalopathy; Translations: [Metabolic encephalopathy] Chronic Other nervous system disorders (1 source) Metabolic encephalopathy Chronic Other nervous system disorders (18 sources) Disorder of brain; Translations: [Encephalopathy, unspecified] 07-14-2023 Chronic Comment on above: Problem List clean-u p per request of Phys. EHR Cmte Other nervous system disorders (9 sources) Carpal tunnel syndrome of left wrist; Translations: [Carpal tunnel syndrome, left upper limb] 07-11-2024 Chronic Other nervous system disorders (4 sources) Carpal tunnel syndrome, left upper limb; Translations: [Carpal tunnel syndrome] 07-11-2024 Chronic Other nervous system disorders (2 sources) Lesion of ulnar nerve, left upper limb; Translations: [Ulnar neuropathy at elbow of left upper extremity] 12-28-2024 Chronic Other nervous system disorders (4 sources) Other disturbances of skin sensation; Translations: [OTHER DISTURBANCES SKIN SENSATION] Onset: 07-28-2022 Episodic Other nervous system disorders (17 sources) Numbness of hand; Translations: [Anesthesia of [...] conditions (not mental disorders or infectious disease) (20 sources) Encounter for screening for malignant neoplasm of prostate; Translations: [Patient encounter status] Onset: 08-02-2022 Episodic Pleurisy; pneumothorax; pulmonary collapse (1 source) Pleural effusion, not elsewhere classified; Translations: [PLEURAL EFFUSION NEC] Onset: 07-02-2022 Episodic Residual codes; unclassified (1 source) Disorientation, unspecified Episodic Residual codes; unclassified (16 sources) Altered mental status; Translations: [Altered mental status, unspecified] 06-20-2023 Episodic Residual codes; unclassified (2 sources) Altered mental status, unspecified; Translations: [Altered mental status] Onset: 06-20-2023 06-20-2023 Episodic Residual codes; unclassified (1 source) Other specified postprocedural states; Translations: [Other postprocedural status] 01-03-2025 Episodic Screening and history of mental health [...] that caused by tuberculosis or sexually transmitteddisease) (10 sources) Blepharitis of upper and lower eyelids of bilateral eyes; Translations: [Unspecified blepharitis right eye, upper and lower eyelids] Onset: 04-10-2023 04-10-2023 Episodic Other connective tissue disease (2 sources) Pain in right leg; Translations: [Pain in limb] Onset: 03-01-2023 03-01-2023 Episodic Other connective tissue disease (1 source) Pain in left leg; Translations: [Pain in left leg] Onset: 03-01-2023 Episodic Other eye disorders (10 sources) Dry eyes; Translations: [Dry eye syndrome [...] Test Name Value Interpretation Reference Range Facility Estimated glomerular filtrat ion rate (GFR) non- [facility] 01-06-2025 GFR/1.73 sq M.predicted among non-blacks MDRD (S/P/Bld) [Vol rate/Area] Estimated glomerular filtration rate (GFR) non- >=60 mL/min/1.7 3m 2 [facility] Laboratory - Chemistry and C hemistry - challengeon 01-06-2025 Creatinine [Mass/Vol] 0.86 mg/dL 0.70-1.30 [facility] GFR/1.73 sq M.predicted MDRD (S/P/Bld) [Vol rate/Area] mL/min/{1.73_m2} >=60 mL/min/1.7 3m 2 [facility] Office Visiton 12-13-2024 Follow-up visit [id number] Yonatan Patel 1945 M Date Provider Department Center 12/13/2024 Jose-ZEV PRIETO CARD [facility] Family History Problem Relation Age of Onset Heart attack Father Heart attack Brother Family Status - Relation Status Age at Mother Father Sister Alive Brother Level of Service:22620 [place] OFFICE/OUTPATIENT ESTABLISHED MOD MDM 30 MIN Normal [facility] Basophils Auto (Bld) [#/Vol] on 09-02-2024 Basophils (Bld) [#/Vol] Automated basophil count 0.0-0.1 [facility] Basophils/100 WBC Auto (Bld) on 09-02-2024 Basophils/100 WBC (Bld) Automated basophil % 0.2-2.0 [facility] Cholesterol in LDL Calc [Mas s/Vol]on 09-02-2024 Cholesterol in LDL [Mass/Vol] Cholesterol in LDL [Mass/volume] in Serum or Plasma by calculation [facility] Comment on above: <100 mg/dl [id number] 0-129 mg/dl NEAR OR ABOVE [id number] mg/dl BORDERLINE [id number] mg/dl HIGH>190 mg/dl VERY HIGH Cholesterol in VLDL Calc [Ma ss/Vol]on 09-02-2024 Cholesterol in VLDL [Mass/Vol] Cholesterol in VLDL [Mass/volume] in Serum or Plasma by calculation [facility] Eosinophils/100 WBC Auto (Bl d)on 09-02-2024 Eosinophils/100 WBC (Bld) Automated eosinophil % 0.9-7.0 [facility] Erythrocyte distribution wid th Auto (RBC) [Ratio]on 09-02-2024 Erythrocyte distribution width (RBC) [Ratio] Erythrocyte distribution width [Ratio] by Automated count 11.0-15.0 [facility] Estimated glomerular filtrat ion rate (GFR) non- Americanon 09-02-2024 GFR/1.73 sq M.predicted among non-blacks MDRD (S/P/Bld) [Vol rate/Area] Estimated glomerular filtration rate (GFR) non- >=60 mL/min/1.7 3m 2 [facility] Globulin Calc (S) [Mass/Vol] on 09-02-2024 Globulin (S) [Mass/Vol] Serum globulin measurement by calculation (mass/volume) [facility] Hematocrit Auto (Bld) [Volum e fraction]on 09-02-2024 Hematocrit (Bld) [Volume fraction] Hematocrit [Volume Fraction] of Blood by Automated count 42.0-54.0 [facility] Hemoglobin [Mass/volume] in Bloodon 09-02-2024 Hemoglobin (Bld) [Mass/Vol] Hemoglobin [Mass/volume] in Blood 14.0-18.0 [facility] Laboratory - Chemistry and C hemistry - challengeon 09-02-2024 Albumin [Mass/Vol] 3.7 g/dL 3.4-5.0 [facility] ALP [Catalytic activity/Vol] 69 U/L 46-116 [facility] ALT [Catalytic activity/Vol] 48 U/L 16-63 [facility] AST [Catalytic activity/Vol] 34 U/L 15-37 [facility] Bilirubin [Mass/Vol] 1.3 mg/dL High 0.2-1.0 [facility] Calcium [Mass/Vol] 9.4 mg/dL 8.5-10.1 [facility] Chloride [Moles/Vol] 108 mmol/L High 98-107 [facility] Cholesterol [Mass/Vol] 88 mg/dL <=200 [facility] Cholesterol in HDL [Mass/Vol] 43 mg/dL 40-60 [facility] Comment on above: > or =60 mg/dl - LOW CARDIOVASCULAR RISK<40 mg/dl - HIGH CARDIOVASCULAR RISK CO2 [Moles/Vol] 26.8 mmol/L 21.0-32.0 [facility] Creatinine [Mass/Vol] 1.01 mg/dL 0.70-1.30 [facility] GFR/1.73 sq M.predicted MDRD (S/P/Bld) [Vol rate/Area] mL/min/{1.73_m2} >=60 mL/min/1.7 3m 2 [facility] Glucose [Mass/Vol] 105 mg/dL 74-106 [facility] Potassium [Moles/Vol] 4.3 mmol/L 3.5-5.1 [facility] Protein [Mass/Vol] 6.5 g/dL 6.4-8.2 [facility] Sodium [Moles/Vol] 143 mmol/L 136-145 [facility] Triglyceride [Mass/Vol] 74 mg/dL <=150 [facility] Urea nitrogen [Mass/Vol] 20.0 mg/dL High 7.0-18.0 [facility] Urea nitrogen/Creatinine [Mass ratio] 19.8 mg/mg [facility] Laboratory - Hematology and Cell countson 09-02-2024 Immature granulocytes/100 WBC (Bld) 0.4 % 0.0-0.5 [facility] Leukocytes [#/volume] correc airam for nucleated erythrocytes in Blood by Automated counon 09-02-2024 WBC corrected for nucl RBC Auto (Bld) [#/Vol] Leukocytes [#/volume] corrected for nucleated erythrocytes in Blood by Automated coun 4.0-11.0 [facility] Lymphocytes Auto (Bld) [#/Vo l]on 09-02-2024 Lymphocytes (Bld) [#/Vol] Lymphocytes [#/volume] in Blood by Automated count 1.2-3.8 [facility] Lymphocytes/100 WBC Auto (Bl d)on 09-02-2024 Lymphocytes/100 WBC (Bld) Lymphocytes/100 leukocytes in Blood by Automated count 20.5-60.0 [facility] MCH Auto (RBC) [Entitic mass ]on 09-02-2024 MCH (RBC) [Entitic mass] MCH [Entitic mass] by Automated count 25.9-34.0 [facility] MCHC Auto (RBC) [Mass/Vol]on 09-02-2024 MCHC (RBC) [Mass/Vol] MCHC [Mass/volume] by Automated count 29.9-35.2 [facility] MCV Auto (RBC) [Entitic vol] on 09-02-2024 MCV (RBC) [Entitic vol] MCV [Entitic volume] by Automated count 80.0-94.0 [facility] Monocytes Auto (Bld) [#/Vol] on 09-02-2024 Monocytes (Bld) [#/Vol] Automated blood monocyte count 0.3-0.8 [facility] Monocytes/100 WBC Auto (Bld) on 09-02-2024 Monocytes/100 WBC (Bld) Automated monocyte % 1.7-12.0 [facility] Neutrophils Auto (Bld) [#/Vo l]on 09-02-2024 Neutrophils (Bld) [#/Vol] Neutrophils [#/volume] in Blood by Automated count 1.4-6.5 [facility] Neutrophils/100 WBC Auto (Bl d)on 09-02-2024 Neutrophils/100 WBC (Bld) Automated neutrophil % 43.0-75.0 [facility] No Panel Informationon 09-02 Eosinophils # (Auto) 0.1 10 3/uL 0.0-0.7 [facility] Immature Granulocyte # (Auto) 0.02 10 3/uL 0.00-0.03 [facility] Platelet mean volume Auto (B ld) [Entitic vol]on 09-02-2024 Platelet mean volume (Bld) [Entitic vol] Platelet mean volume [Entitic volume] in Blood by Automated count Low 9.5-13.5 [facility] Platelets Auto (Bld) [#/Vol] on 09-02-2024 Platelets (Bld) [#/Vol] Platelets [#/volume] in Blood by Automated count 150-450 [facility] RBC Auto (Bld) [#/Vol]on RBC (Bld) [#/Vol] Erythrocytes [#/volu me] in Blood by Automated count 4.70-6.10 [facility] Serum or plasma albumin/glob ulin mass ratioon 09-02-2024 Albumin/Globulin [Mass ratio] Serum or plasma albumin/globulin mass ratio [facility] Serum or plasma anion gap de terminationon 09-02-2024 Anion gap [Moles/Vol] Serum or plasma an ion gap determination [facility] Serum or plasma total choles terol/high density lipoprotein (HDL) cholesterol mass meghana 09-02-2024 Cholesterol.total/Chol esterol in HDL [Mass ratio] Serum or plasma total cholesterol/high density lipoprotein (HDL) cholesterol mass rat [facility] Comment on above: 3.3 - 4.4 LOW RISK4. 4 - 7.1 AVERAGE RISK7.1 - 11.0 MODERATE RISK>11.0 HIGH RISK Perimetry studyon 07-05-2024 [facility] Radiology Study observation (narrative) [facility] Influenza virus B Ag [Presen ce] in Upper respiratory specimen by Rapid immunoassayon 03-19-2024 FLUBV Ag IA.rapid Ql (Nph) Negative [facility] No Panel Informationon 03-19 Influenza Type A (Rapid) Negative [facility] POC SARS CoV-2 Antigen Positive [facility] Basophils Auto (Bld) [#/Vol] on 03-15-2024 Basophils (Bld) [#/Vol] 0.0 10 3/uL 0.0-0.1 [facility] Basophils/100 WBC Auto (Bld) on 03-15-2024 Basophils/100 WBC (Bld) 0.6 % 0.2-2.0 [facility] Eosinophils/100 WBC Auto (Bl d)on 03-15-2024 Eosinophils/100 WBC (Bld) 0.9 % 0.9-7.0 [facility] Erythrocyte distribution wid th Auto (RBC) [Ratio]on 03-15-2024 Erythrocyte distribution width (RBC) [Ratio] 14.3 % 11.0-15.0 [facility] Hematocrit Auto (Bld) [Volum e fraction]on 03-15-2024 Hematocrit (Bld) [Volume fraction] 44.2 % 42.0-54.0 [facility] Hemoglobin [Mass/volume] in Bloodon 03-15-2024 Hemoglobin (Bld) [Mass/Vol] 14.7 g/dL 14.0-18.0 [facility] Laboratory - Chemistry and C hemistry - challengeon 03-15-2024 Bilirubin Ql (U) Negative NEGATIVE [facility] Glucose (U) [Mass/Vol] Negative [facility]IVE [facility] Ketones Ql (U) Negative NEGATIVE [facility] pH (U) 6.5 [pH] 5.0-9.0 [facility] Specific gravity (U) [Rel density] 1.020 1.005-1.02 5 [facility] Urobilinogen Qn (U) 0.2 {[place]'U}/dL 0.2-1.0 [facility] Laboratory - Hematology and Cell countson 03-15-2024 ESR (Bld) [Velocity] 11 mm/h <=20 [facility] Immature granulocytes/100 WBC (Bld) 0.5 % 0.0-0.5 [facility] Laboratory - Specimen inform ationon 03-15-2024 Appearance (U) CLEAR CLEAR [facility] Color (U) YELLOW YELLOW [facility] Laboratory - Urinalysison Leukocyte esterase Test strip Ql (U) Negative NEGATIVE [facility] Mucus Ql (Urine sed) TRACE Abnormal NONE SEEN [facility] Nitrite Ql (U) Negative NEGATIVE [facility] Protein Ql (U) Negative NEG/TRACE [facility] Leukocytes [#/volume] correc airam for nucleated erythrocytes in Blood by Automated counon 03-15-2024 WBC corrected for nucl RBC Auto (Bld) [#/Vol] 6.5 10 3/uL 4.0-11.0 [facility] Lymphocytes Auto (Bld) [#/Vo l]on 03-15-2024 Lymphocytes (Bld) [#/Vol] 1.3 10 3/uL 1.2-3.8 [facility] Lymphocytes/100 WBC Auto (Bl d)on 03-15-2024 Lymphocytes/100 WBC (Bld) 19.8 % Low 20.5-60.0 [facility] MCH Auto (RBC) [Entitic mass ]on 03-15-2024 MCH (RBC) [Entitic mass] 30.2 pg 25.9-34.0 [facility] MCHC Auto (RBC) [Mass/Vol]on 03-15-2024 MCHC (RBC) [Mass/Vol] 33.3 g/dL 29.9-35.2 [facility] MCV Auto (RBC) [Entitic vol] on 03-15-2024 MCV (RBC) [Entitic vol] 90.8 fL 80.0-94.0 [facility] Monocytes Auto (Bld) [#/Vol] on 03-15-2024 Monocytes (Bld) [#/Vol] 0.6 10 3/uL 0.3-0.8 [facility] Monocytes/100 WBC Auto (Bld) on 03-15-2024 Monocytes/100 WBC (Bld) 9.9 % 1.7-12.0 [facility] Neutrophils Auto (Bld) [#/Vo l]on 03-15-2024 Neutrophils (Bld) [#/Vol] 4.4 10 3/uL 1.4-6.5 [facility] Neutrophils/100 WBC Auto (Bl d)on 03-15-2024 Neutrophils/100 WBC (Bld) 68.3 % 43.0-75.0 [facility] No Panel Informationon 03-15 Urine Bacteria NONE SEEN #/HPF NONE SEEN [facility] Urine Occult Blood Negative NEGATIVE [facility] Urine Other Casts NONE SEEN #/LPF NONE SEEN [facility] Urine Other Crystals None Seen #/HPF None Seen [facility] Urine RBC 0-2 #/HPF 0-2 [facility] Urine Squamous Epithelial Cells NONE SEEN #/LPF NONE/RARE [facility] Urine WBC 0-2 #/HPF Abnormal NONE SEEN [facility] Eosinophils # (Auto) 0.1 10 3/uL 0.0-0.7 [facility] Immature Granulocyte # (Auto) 0.03 10 3/uL 0.00-0.03 [facility] Platelet mean volume Auto (B ld) [Entitic vol]on 03-15-2024 Platelet mean volume (Bld) [Entitic vol] 10.0 fL 9.5-13.5 [facility] Platelets Auto (Bld) [#/Vol] on 03-15-2024 Platelets (Bld) [#/Vol] 169 10 3/uL 150-450 [facility] RBC Auto (Bld) [#/Vol]on RBC (Bld) [#/Vol] 4.87 10 6/uL 4.70-6.10 [facility] No Panel Informationon 01-21 Prostate Specific Antigen Screen 1.33 ng/mL <=4.00 [facility] Estimated glomerular filtrat ion rate (GFR) non- Americanon 11-16-2023 GFR/1.73 sq M.predicted among non-blacks MDRD (S/P/Bld) [Vol rate/Area] mL/min/{1.73_m2} >=60 [facility] Laboratory - Chemistry and C hemistry - challengeon 11-16-2023 Calcium [Mass/Vol] 9.6 mg/dL 8.5-10.1 [facility] Chloride [Moles/Vol] 105 mmol/L 98-107 [facility] CO2 [Moles/Vol] 23.8 mmol/L 21.0-32.0 [facility] Creatinine [Mass/Vol] 1.02 mg/dL 0.70-1.30 [facility] GFR/1.73 sq M.predicted MDRD (S/P/Bld) [Vol rate/Area] mL/min/{1.73_m2} >=60 [facility] Glucose [Mass/Vol] 96 mg/dL 74-106 [facility] Potassium [Moles/Vol] 4.0 mmol/L 3.5-5.1 [facility] Sodium [Moles/Vol] 140 mmol/L 136-145 [facility] Urea nitrogen [Mass/Vol] 15.0 mg/dL 7.0-18.0 [facility] Urea nitrogen/Creatinine [Mass ratio] 14.7 mg/mg [facility] Serum or plasma anion gap de terminationon 11-16-2023 Anion gap [Moles/Vol] 15.2 mmol/L [facility] Operative Reporton Operative Report [id number]#1.00TIFF Normal [facility] RAD - MISCon 08-07-2023 RAD - MISC [id number]#1.00TIFF Normal [facility] Consent for Procedure/Surger yon 07-29-2023 Consent for Procedure/Surgery [id number]#1.00TIFF Normal [facility] Facesheeton 07-29-2023 Facesheet [id number]#1.00TIFF Normal [facility] Ambulatory Visit Summaryon 1 09-28-2022 Ambulatory Visit [...] for choosing us for your care. Myron [facility] Ambulatory Visit Summary YONATAN PATEL :1945 Visit [...] for choosing us for your care. Normal [facility] Physician Referralon 023 Physician Referral [id number]#1.00TIFF Normal [facility] Basic Metabolic Panelon Anion gap [Moles/Vol] 10.4 mmol/L Normal 6.0-15.0 [facility] Comment on above: Order Comment: FASTI NG Y Performed By: #### H S TROP, CMP, CK, CBC #### [facility] [address] Calcium [Mass/Vol] 9.4 mg/dL Normal 8.6-10.3 [facility] Comment on above: Order Comment: FASTI NG Y Performed By: #### H S TROP, CMP, CK, CBC #### [facility] [address] Chloride [Moles/Vol] 106 mmol/L Normal 98-107 [facility] Comment on above: Order Comment: FASTI NG Y Performed By: #### H S TROP, CMP, CK, CBC #### [facility] [address] CO2 [Moles/Vol] 28.8 mmol/L Normal 21.0-31.0 [facility] Comment on above: Order Comment: FASTI NG Y Performed By: #### H S TROP, CMP, CK, CBC #### [facility] [address] [place] [address] Creatinine [Mass/Vol] 0.78 mg/dL Normal 0.70-1.30 [facility] Comment on above: Order Comment: FASTI NG Y Performed By: #### H S TROP, CMP, CK, CBC #### [facility] [address] Creatinine Clr Calc Pharmacy 81.46 [facility] Comment on above: Order Comment: FASTI NG Y Performed By: #### H S TROP, CMP, CK, CBC #### [facility] [address] GFR/1.73 sq M.predicted MDRD (S/P/Bld) [Vol rate/Area] mL/min/{1.73_m2} [facility] Comment on above: Order Comment: FASTI NG Y Performed By: #### H S TROP, CMP, CK, CBC #### [address] Glucose [Mass/Vol] 99 mg/dL Normal 70-100 [facility] Comment on above: Order Comment: FASTI NG Y Result Comment: [facility] Glucose Reference Range is dependent on time and content of last meal. Glucose of more than 200 mg/dL in a nonstressed, ambulatory subject supports the diagnosis of Diabetes Mellitus. ADA recommended reference range Performed By: #### H S TROP, CMP, CK, CBC #### [address] Potassium [Moles/Vol] 4.2 mmol/L Normal 3.5-5.1 [facility] Comment on above: Order Comment: FASTI NG Y Performed By: #### H S TROP, CMP, CK, CBC #### [facility] [address] Sodium [Moles/Vol] 141 mmol/L Normal 136-145 [facility] Comment on above: Order Comment: FASTI NG Y Performed By: #### H S TROP, CMP, CK, CBC #### [facility] [address] [place] [address] Urea nitrogen [Mass/Vol] 16 mg/dL Normal 7-25 [facility] Comment on above: Order Comment: FASTI NG Y Performed By: #### H S TROP, CMP, CK, CBC #### [facility] [address] Complete Blood Count Auto Di ffon 06-22-2023 Basophils (Bld) [#/Vol] 0.0 10*3/uL Normal 0.0-0.2 [facility] Comment on above: Result Comment: PERF ORMED BY: [place] [address] PATHOLOGIST [employer] HARRY MARTI M.D. Performed By: #### L IPID, [id number], PT, CBC, HEPATIC, BMP, PTT, TSH3, MG #### [address] Basophils/100 WBC (Bld) 0.4 % Normal . [facility] Comment on above: Performed By: #### L IPID, [id number], PT, CBC, HEPATIC, BMP, PTT, TSH3, MG #### [address] Eosinophils (Bld) [#/Vol] 0.1 10*3/uL Normal 0.0-0.45 [facility] Comment on above: Performed By: #### L IPID, [id number], PT, CBC, HEPATIC, BMP, PTT, TSH3, MG #### [address] Eosinophils/100 WBC (Bld) 1.2 % Normal . [facility] Comment on above: Performed By: #### L IPID, [id number], PT, CBC, HEPATIC, BMP, PTT, TSH3, MG #### [address] Erythrocyte distribution width (RBC) [Ratio] 15.2 % High 12.0-14.8 [facility] Comment on above: Performed By: #### L IPID, [id number], PT, CBC, HEPATIC, BMP, PTT, TSH3, MG #### [address] Hematocrit (Bld) [Volume fraction] 40.0 % Normal 38.8-50.0 [facility] Comment on above: Performed By: #### L IPID, [id number], PT, CBC, HEPATIC, BMP, PTT, TSH3, MG #### [address] Hemoglobin (Bld) [Mass/Vol] 13.6 g/dL Normal 13.0-17.0 [facility] Comment on above: Performed By: #### L IPID, [id number], PT, CBC, HEPATIC, BMP, PTT, TSH3, MG #### [address] Lymphocytes (Bld) [#/Vol] 1.5 10*3/uL Normal 1.00-4.8 [facility] Comment on above: Performed By: #### L IPID, [id number], PT, CBC, HEPATIC, BMP, PTT, TSH3, MG #### [address] Lymphocytes/100 WBC (Bld) 35.5 % Normal . [facility] Comment on above: Performed By: #### L IPID, [id number], PT, CBC, HEPATIC, BMP, PTT, TSH3, MG #### [address] MCH (RBC) [Entitic mass] 29.4 pg Normal 27.5-35.2 [facility] Comment on above: Performed By: #### L IPID, [id number], PT, CBC, HEPATIC, BMP, PTT, TSH3, MG #### [address] MCV (RBC) [Entitic vol] 86.7 fL Normal 83.5-101 [facility] Comment on above: Performed By: #### L IPID, [id number], PT, CBC, HEPATIC, BMP, PTT, TSH3, MG #### [address] Mean Corpuscular HGB Conc 33.9 g/dL Normal 32.5-35.6 [facility] Comment on above: Performed By: #### L IPID, [id number], PT, CBC, HEPATIC, BMP, PTT, TSH3, MG #### [address] Monocytes (Bld) [#/Vol] 0.4 10*3/uL Normal 0.0-0.8 [facility] Comment on above: Performed By: #### L IPID, [id number], PT, CBC, HEPATIC, BMP, PTT, TSH3, MG #### [address] Monocytes/100 WBC (Bld) 10.4 % Normal . [facility] Comment on above: Performed By: #### L IPID, [id number], PT, CBC, HEPATIC, BMP, PTT, TSH3, MG #### [address] Neutrophils (Bld) [#/Vol] 2.2 10*3/uL Normal 1.8-7.7 [facility] Comment on above: Performed By: #### L IPID, [id number], PT, CBC, HEPATIC, BMP, PTT, TSH3, MG #### [address] Neutrophils/100 WBC (Bld) 52.5 % Normal . [facility] Comment on above: Performed By: #### L IPID, [id number], PT, CBC, HEPATIC, BMP, PTT, TSH3, MG #### [address] NRBC% 0.1 /100{WBC} Normal 0-0.5 [facility] Comment on above: Performed By: #### L IPID, [id number], PT, CBC, HEPATIC, BMP, PTT, TSH3, MG #### [address] Platelet mean volume (Bld) [Entitic vol] 7.3 fL Normal 6.6-10.1 [facility] Comment on above: Performed By: #### L IPID, [id number], PT, CBC, HEPATIC, BMP, PTT, TSH3, MG #### [facility] [address] Platelets (Bld) [#/Vol] 153 10*3/uL Normal 150-450 [facility] Comment on above: Performed By: #### L IPID, [id number], PT, CBC, HEPATIC, BMP, PTT, TSH3, MG #### [facility] [address] [place] [address] RBC (Bld) [#/Vol] 4.61 10*6/uL Normal 3.90-5.60 [facility] Comment on above: Performed By: #### L IPID, [id number], PT, CBC, HEPATIC, BMP, PTT, TSH3, MG #### [address] WBC (Bld) [#/Vol] 4.1 10*3/uL Normal 4.1-10.5 [facility] Comment on above: Performed By: #### L IPID, [id number], PT, CBC, HEPATIC, BMP, PTT, TSH3, MG #### [address] Hepatic Panelon 06-22-2023 Albumin [Mass/Vol] 3.8 g/dL Normal 3.5-5.7 [facility] Comment on above: Order Comment: FASTI NG Y Performed By: #### H S TROP, CMP, CK, CBC #### [address] Albumin/Globulin [Mass ratio] 1.6 {ratio} Normal [facility] Comment on above: Order Comment: FASTI NG Y Performed By: #### H S TROP, CMP, CK, CBC #### [address] ALP [Catalytic activity/Vol] 57 U/L Normal 34-104 [facility] Comment on above: Order Comment: FASTI NG Y Performed By: #### H S TROP, CMP, CK, CBC #### [place] [id number] [place] ALT [Catalytic activity/Vol] 26 U/L Normal 7-52 [facility] Comment on above: Order Comment: FASTI NG Y Performed By: #### H S TROP, CMP, CK, CBC #### [address] AST [Catalytic activity/Vol] 27 U/L Normal 13-39 [facility] Comment on above: Order Comment: FASTI NG Y Performed By: #### H S TROP, CMP, CK, CBC #### [address] Bilirubin [Mass/Vol] 1.0 mg/dL Normal 0.3-1.0 [facility] Comment on above: Order Comment: FASTI NG Y Performed By: #### H S TROP, CMP, CK, CBC #### [address] Bilirubin,Indirect 0.8 mg/dL Normal [facility] Comment on above: Order Comment: FASTI NG Y Performed By: #### H S TROP, CMP, CK, CBC #### [address] Bilirubin.indirect [Mass/Vol] 0.20 mg/dL High 0.03-0.18 [facility] Comment on above: Order Comment: FASTI NG Y Performed By: #### H S TROP, CMP, CK, CBC #### [address] Globulin (S) [Mass/Vol] 2.4 g/dL Normal [facility] Comment on above: Order Comment: FASTI NG Y Performed By: #### H S TROP, CMP, CK, CBC #### [address] Protein [Mass/Vol] 6.2 g/dL Low 6.4-8.9 [facility] Comment on above: Order Comment: FASTI NG Y Performed By: #### H S TROP, CMP, CK, CBC #### [address] Lipid Panelon 11-06-2023 Cholesterol [Mass/Vol] 108 mg/dL Low 140-200 [facility] Comment on above: Order Comment: SHABANA Child Result Comment: Chol less than 200 mg/dl low risk Chol 201-239 mg/dl borderline risk Chol 240 mg/dl and greater high risk Performed By: #### H S TROP, CMP, CK, CBC #### [facility] [address] Cholesterol in HDL [Mass/Vol] 30 mg/dL Normal 23-92 [facility] Comment on above: Order Comment: STANBryan OSITO Y Result Comment: HDL CHOL ATP-III CLASSIFICATION Cardiovascular Risk HDL > or equal to 60 mg/dL LOW HDL < 40 mg/dL HIGH Performed By: #### H S TROP, CMP, CK, CBC #### [facility] [address] Cholesterol.total/Chol esterol in HDL [Mass ratio] 3.6 {ratio} Normal <5.0 [facility] Comment on above: Order Comment: SHABANA Child Performed By: #### H S TROP, CMP, CK, CBC #### [facility] [address] LDL Cholesterol,Calculated 54 mg/dL Normal 0-100 [facility] Comment on above: Order Comment: SHABANA OSITO Child Result Comment: LDL ATP III CLASSIFICATION LDL less than 100 mg/dL Optimal LDL 100-129 mg/dL Near or above optimal LDL 130-159 mg/dL Borderline high LDL 160-189 mg/dL High LDL greater than 189 mg/dL Very high Performed By: #### H S TROP, CMP, CK, CBC #### [facility] [address] [place] [address] [place] Triglyceride w/Reflex 120 mg/dL Normal 0-149 [facility] Comment on above: Order Comment: STANBryan Child Result Comment: TRIG ATP III CLASSIFICATION TRIG less than 150 mg/dL Normal TRIG 150-199 mg/dL Borderline high TRIG 200-500 mg/dL High TRIG greater than 500 mg/dL Very high Standard traceable to the Center for Disease Conrtrol and Prevention (CDC) test method. Performed By: #### H S TROP, CMP, CK, CBC #### [facility] [address] VLDL CHOLESTEROL 24 mg/dL Normal [facility] Comment on above: Order Comment: SHABANA Child Performed By: #### H S TROP, CMP, CK, CBC #### [facility] [address] [place] [id number] [facility] MR angio head wo conon 06-22 MR angio head wo con [facility] [address] [place] [address] [place] [address] MRI Report Signed Patient: Yonatan Patel MR#: [id number] 6 : 1945 Acct:[id number] Age/Sex: 78 / M ADM Date: 06/20/23 Loc: 4N Room: 7L6868-3 Type: ADM IN Attending Dr: Maren Petersen MD Copies to: MD Berhane Rocha MD Ordering Provider: Berhane Trammell MD Date of Service: 06/22/23 MR/MR angio head wo con: stroke MRI/MRA BRAIN WITHOUT CONTRAST COMPARISON: CT 06/20/2023 CLINICAL DATA: Confusion Sagittal T2, axial FLAIR and diffusion-weighted imaging was performed. 3-D ioyh-ak-lzluzw imaging of the [place] was also performed. There is [...] Selena Reid M.D.06/22/2023 4:25 PM Dictation Location: [place] [address] Transcribed By: [facility] 06/22/23 1625 Dictated By: Selena Reid MD 06/22/23 1617 Signed By: 06/22/23 1625 [facility] Magnesiumon 06-22-2023 Magnesium [Mass/Vol] 2.1 mg/dL Normal 1.9-2.7 [facility] Comment on above: Order Comment: STANBryan OSITO Child Performed By: #### H S TROP, CMP, CK, CBC #### [facility] [address] [place] [id number] [place] Partial Thromboplastin Timeo n 06-22-2023 aPTT Coag (Bld) [Time] 27.4 s Normal 25.1-36.5 [facility] Comment on above: Result Comment: A he matocrit value greater than 55% may lead to inaccurate results in coagulation testing. Patients having hematocrit values >55% require a special collection tube for coagulation studies. Please contact the laboratory at [phone] for redraw instructions. PERFORMED BY: [place] [address] PATHOLOGIST [employer] HARRY MARTI M.D. Performed By: #### H S TROP, CMP, CK, CBC #### [facility] [address] [place] [address] [place] Prothrombin Time INRon 06-22 INR Coag (PPP) [Relative time] 1.0 {INR} [facility] Comment on above: Result Comment: INR [...] - 4.5 Performed By: #### L IPID, [id number], PT, CBC, HEPATIC, BMP, PTT, TSH3, MG #### [facility] [address] [place] [address] [place] PT Coag (PPP) [Time] 11.6 s Normal 9.0-12.9 [facility] Comment on above: Result Comment: A he matocrit value greater than 55% may lead to inaccurate results in coagulation testing. Patients having hematocrit values >55% require a special collection tube for coagulation studies. Please contact the laboratory at [phone] for redraw instructions. Performed By: #### L IPID, [id number], PT, CBC, HEPATIC, BMP, PTT, TSH3, MG #### [facility] [address] [place] [address] Thyroid Stimulating Hormoneo n 06-22-2023 TSH Qn 2.38 m[IU]/L Normal 0.45-5.33 [facility] Comment on above: Order Comment: FASTI NG Y Result Comment: PERF ORMED BY: [place] [address] PATHOLOGIST [employer] HARRY MARTI M.D. Performed By: #### H S TROP, CMP, CK, CBC #### [address] Vit. B12/Folate Profileon Cobalamin (Vitamin B12) [Mass/Vol] 425 pg/mL Normal 180-914 [facility] Comment on above: Order Comment: FASTI NG Y Performed By: #### H S TROP, CMP, CK, CBC #### [address] [address] Folate 29.0 ng/mL Normal >5.9 [facility] Comment on above: Order Comment: FASTI NG Y Result Comment: Aye te reference range: >5.9 ng/ml The WHO technical consultation on folate and vitamin b12 deficiencies has determined that folate concentrations less than 4 ng/ml are considered deficient. Performed By: #### H S TROP, CMP, CK, CBC #### [facility] [address] [place] [address] Vitamin B1 (Thiamine) Bloodo n 06-22-2023 Vitamin B1 (Thiamine) Blood 143.9 Normal 66.5-200.0 [facility] Comment on above: Result Comment: This test was developed and its performance characteristics determined by [facility]. It has not been cleared or approved by the Food and Drug Administration. Performed at: [facility] [address], [place], [place] [id number] [employer] Instructor: Juan Howard MD, Phone: [phone] PERFORMED BY: [place] [address] PATHOLOGIST HELICOPTER [employer]ILITY AIRCREWMAN HARRY MARTI M.D. Performed By: #### V ITB1 #### [facility] , Ammoniaon 06-21-2023 Ammonia (P) [Moles/Vol] 19 umol/L Normal 11-35 [facility] Comment on above: Result Comment: PERF ORMED BY: [place] [address] PATHOLOGIST HELICOPTER [employer]CREWMAN HARRY MARTI M.D. Performed By: #### H S TROP, CMP, CK, CBC #### [address] Basic Metabolic Panelon 11-0 Anion gap [Moles/Vol] 11.3 mmol/L Normal 6.0-15.0 [facility] Comment on above: Performed By: #### H S TROP, CMP, CK, CBC #### [address] Calcium [Mass/Vol] 9.4 mg/dL Normal 8.6-10.3 [facility] Comment on above: Performed By: #### H S TROP, CMP, CK, CBC #### [address] Chloride [Moles/Vol] 107 mmol/L Normal 98-107 [facility] Comment on above: Performed By: #### H S TROP, CMP, CK, CBC #### [address] CO2 [Moles/Vol] 25.7 mmol/L Normal 21.0-31.0 [facility] Comment on above: Performed By: #### H S TROP, CMP, CK, CBC #### [facility] [address] Creatinine [Mass/Vol] 0.83 mg/dL Normal 0.70-1.30 [facility] Comment on above: Performed By: #### H S TROP, CMP, CK, CBC #### [facility] [address] [place] [address] [place] Creatinine Clr Calc Pharmacy 80.52 [facility] Comment on above: Result Comment: PERF ORMED BY: [place] [address] PATHOLOGIST HELICOPTER [employer]CREWMAN HARRY MARTI M.D. Performed By: #### H S TROP, CMP, CK, CBC #### [address] GFR/1.73 sq M.predicted MDRD (S/P/Bld) [Vol rate/Area] mL/min/{1.73_m2} [facility] Comment on above: Performed By: #### H S TROP, CMP, CK, CBC #### [address] Glucose [Mass/Vol] 174 mg/dL High 70-100 [facility] Comment on above: Result Comment: [place] Glucose Reference Range is dependent on time and content of last meal. Glucose of more than 200 mg/dL in a nonstressed, ambulatory subject supports the diagnosis of Diabetes Mellitus. ADA recommended reference range Performed By: #### H S TROP, CMP, CK, CBC #### [facility] [address] [place] [address] [place] Potassium [Moles/Vol] 4.0 mmol/L Normal 3.5-5.1 [facility] Comment on above: Performed By: #### H S TROP, CMP, CK, CBC #### [address] Sodium [Moles/Vol] 140 mmol/L Normal 136-145 [facility] Comment on above: Performed By: #### H S TROP, CMP, CK, CBC #### [address] Urea nitrogen [Mass/Vol] 11 mg/dL Normal 7-25 [facility] Comment on above: Performed By: #### H S TROP, CMP, CK, CBC #### [address] Hemogram CBC Without Diffon 06-21-2023 Erythrocyte distribution width (RBC) [Ratio] 14.7 % Normal 12.0-14.8 [facility] Comment on above: Performed By: #### H S TROP, CMP, CK, CBC #### [address] Hematocrit (Bld) [Volume fraction] 40.7 % Normal 38.8-50.0 [facility] Comment on above: Performed By: #### H S TROP, CMP, CK, CBC #### [address] Hemoglobin (Bld) [Mass/Vol] 13.9 g/dL Normal 13.0-17.0 [facility] Comment on above: Performed By: #### H S TROP, CMP, CK, CBC #### [address] MCH (RBC) [Entitic mass] 29.7 pg Normal 27.5-35.2 [facility] Comment on above: Performed By: #### H S TROP, CMP, CK, CBC #### [address] MCV (RBC) [Entitic vol] 86.8 fL Normal 83.5-101 [facility] Comment on above: Performed By: #### H S TROP, CMP, CK, CBC #### [address] Mean Corpuscular HGB Conc 34.2 g/dL Normal 32.5-35.6 [facility] Comment on above: Performed By: #### H S TROP, CMP, CK, CBC #### [address] Platelet mean volume (Bld) [Entitic vol] 7.3 fL Normal 6.6-10.1 [facility] Comment on above: Result Comment: PERF ORMED BY: [place] [address] PATHOLOGIST HELICOPTER [employer] AIRCREWMAN HARRY MARTI M.D. Performed By: #### H S TROP, CMP, CK, CBC #### [facility] [address] Platelets (Bld) [#/Vol] 144 10*3/uL Low 150-450 [facility] Comment on above: Performed By: #### H S TROP, CMP, CK, CBC #### [address] RBC (Bld) [#/Vol] 4.69 10*6/uL Normal 3.90-5.60 [facility] Comment on above: Performed By: #### H S TROP, CMP, CK, CBC #### [facility] [address] [place] [address] WBC (Bld) [#/Vol] 3.9 10*3/uL Low 4.1-10.5 [facility] Comment on above: Performed By: #### H S TROP, CMP, CK, CBC #### [address] COVID CepheidOrdered By: Huy Palacios on 06-20-2023 SARS-CoV-2 (COVID-19) Ab IA Ql Positive Negative [facility] Comment on above: This is a duplicate Cepheid Xpert Xpress CoV-2/Flu/RSV Plus RNA by RT-PCR result to be used for statistical tracking purpose only. SARS-CoV-2 (COVID-19) RNA MARIANNE+probe Ql (Unsp spec) [facility] COVID-19 / Flu A/B / RSV PCR [...] or Cepheid Disclaimer revoked sooner. PERFORMED BY: [facility] [address] [place] [id number] PATHOLOGIST HELICOPTER [employer] AIRCREWMAN HARRY MARTI M.D. [facility] Comment on above: Performed By: #### H S TROP, CMP, CK, CBC #### [facility] [address] [place] [id number] [facility] CT head/brain wo conon 06-20 CT head/brain wo con [facility] [place] [address] [place] [address] CT Scan Report Signed Patient: Yonatan Patel MR#: [id number] 6 : 1945 Acct:[id number] Age/Sex: 78 / M ADM Date: 06/20/23 Loc: Room: [address] [place] [address] Type: ADM INOo Attending Dr: Jassi Arias [...] Daisha Fernandez M.D.06/20/2023 8:34 AM Dictation Location: [place] [address] Transcribed By: MICHEL 06/20/23833 Dictated By: Daisha Fernandez II, MD 06/20/23829 Signed By: 06/20/23833 [facility] Cepheid COVID PCR Positiveon 06-20-2023 SARS-CoV-2 (COVID-19) RNA MARIANNE+probe Ql (Unsp spec) Positive Critically abnormal Negative [facility] Comment on above: Result Comment: This is a duplicate CepInRoom Broadcastingid Xpert Xpress CoV-2/Flu/RSV Plus RNA by RT-PCR result to be used for statistical tracking purpose only. PERFORMED BY: [place] [phone] PATHOLOGIST HELICOPTER [employer] AIRCREWMAN HARRY MARTI M.D. Performed By: #### H S TROP, CMP, CK, CBC #### [address] Complete Blood Count Auto Di ffon 06-20-2023 Basophils (Bld) [#/Vol] 0.0 10*3/uL Normal 0.0-0.2 [facility] Comment on above: Result Comment: PERF ORMED BY: [place] [address] PATHOLOGIST HELICOPTER [employer]CREWMAN HARRY MARTI M.D. Performed By: #### H S TROP, CMP, CK, CBC #### [address] Basophils/100 WBC (Bld) 0.4 % Normal . [facility] Comment on above: Performed By: #### H S TROP, CMP, CK, CBC #### [place] [address] [place] Eosinophils (Bld) [#/Vol] 0.0 10*3/uL Normal 0.0-0.45 [facility] Comment on above: Performed By: #### H S TROP, CMP, CK, CBC #### [place] [address] [place] Eosinophils/100 WBC (Bld) 0.6 % Normal . [facility] Comment on above: Performed By: #### H S TROP, CMP, CK, CBC #### [address] Erythrocyte distribution width (RBC) [Ratio] 14.9 % High 12.0-14.8 [facility] Comment on above: Performed By: #### H S TROP, CMP, CK, CBC #### [address] Hematocrit (Bld) [Volume fraction] 43.3 % Normal 38.8-50.0 [facility] Comment on above: Performed By: #### H S TROP, CMP, CK, CBC #### [address] Hemoglobin (Bld) [Mass/Vol] 14.8 g/dL Normal 13.0-17.0 [facility] Comment on above: Performed By: #### H S TROP, CMP, CK, CBC #### [address] Lymphocytes (Bld) [#/Vol] 1.0 10*3/uL Normal 1.00-4.8 [facility] Comment on above: Performed By: #### H S TROP, CMP, CK, CBC #### [address] Lymphocytes/100 WBC (Bld) 20.8 % Normal . [facility] Comment on above: Performed By: #### H S TROP, CMP, CK, CBC #### [address] MCH (RBC) [Entitic mass] 30.0 pg Normal 27.5-35.2 [facility] Comment on above: Performed By: #### H S TROP, CMP, CK, CBC #### [address] MCV (RBC) [Entitic vol] 87.6 fL Normal 83.5-101 [facility] Comment on above: Performed By: #### H S TROP, CMP, CK, CBC #### [address] Mean Corpuscular HGB Conc 34.2 g/dL Normal 32.5-35.6 [facility] Comment on above: Performed By: #### H S TROP, CMP, CK, CBC #### [address] [place] [address] [place] Monocytes (Bld) [#/Vol] 0.8 10*3/uL Normal 0.0-0.8 [facility] Comment on above: Performed By: #### H S TROP, CMP, CK, CBC #### [address] Monocytes/100 WBC (Bld) 24.01 % High 0.00-20.00 [facility] Comment on above: Result Comment: For adults in ED, MDW > 20.0 may be associated with a higher risk of sepsis during the first 12 hrs of hospital admission Performed By: #### H S TROP, CMP, CK, CBC #### [address] Monocytes/100 WBC (Bld) 15.6 % Normal . [facility] Comment on above: Performed By: #### H S TROP, CMP, CK, CBC #### [address] Neutrophils (Bld) [#/Vol] 3.0 10*3/uL Normal 1.8-7.7 [facility] Comment on above: Performed By: #### H S TROP, CMP, CK, CBC #### [address] Neutrophils/100 WBC (Bld) 62.6 % Normal . [facility] Comment on above: Performed By: #### H S TROP, CMP, CK, CBC #### [address] NRBC% 0.4 /100{WBC} Normal 0-0.5 [facility] Comment on above: Performed By: #### H S TROP, CMP, CK, CBC #### [address] Platelet mean volume (Bld) [Entitic vol] 7.9 fL Normal 6.6-10.1 [facility] Comment on above: Performed By: #### H S TROP, CMP, CK, CBC #### [address] [address] [place] Platelets (Bld) [#/Vol] 154 10*3/uL Normal 150-450 [facility] Comment on above: Performed By: #### H S TROP, CMP, CK, CBC #### [address] RBC (Bld) [#/Vol] 4.94 10*6/uL Normal 3.90-5.60 [facility] Comment on above: Performed By: #### H S TROP, CMP, CK, CBC #### [address] WBC (Bld) [#/Vol] 4.8 10*3/uL Normal 4.1-10.5 [facility] Comment on above: Performed By: #### H S TROP, CMP, CK, CBC #### [address] Comprehensive Metabolic Pane alex 06-20-2023 Albumin [Mass/Vol] 4.2 g/dL Normal 3.5-5.7 [facility] Comment on above: Performed By: #### H S TROP, CMP, CK, CBC #### [address] Albumin/Globulin [Mass ratio] 1.6 {ratio} Normal [facility] Comment on above: Performed By: #### H S TROP, CMP, CK, CBC #### [address] ALP [Catalytic activity/Vol] 53 U/L Normal 34-104 [facility] Comment on above: Performed By: #### H S TROP, CMP, CK, CBC #### [address] ALT [Catalytic activity/Vol] 31 U/L Normal 7-52 [facility] Comment on above: Performed By: #### H S TROP, CMP, CK, CBC #### [address] Anion gap [Moles/Vol] 9.2 mmol/L Normal 6.0-15.0 [facility] Comment on above: Performed By: #### H S TROP, CMP, CK, CBC #### [address] AST [Catalytic activity/Vol] 33 U/L Normal 13-39 [facility] Comment on above: Performed By: #### H S TROP, CMP, CK, CBC #### [address] Bilirubin [Mass/Vol] 1.0 mg/dL Normal 0.3-1.0 [facility] Comment on above: Performed By: #### H S TROP, CMP, CK, CBC #### [address] Calcium [Mass/Vol] 9.8 mg/dL Normal 8.6-10.3 [facility] Comment on above: Performed By: #### H S TROP, CMP, CK, CBC #### [address] Chloride [Moles/Vol] 107 mmol/L Normal 98-107 [facility] Comment on above: Performed By: #### H S TROP, CMP, CK, CBC #### [address] CO2 [Moles/Vol] 25.6 mmol/L Normal 21.0-31.0 [facility] Comment on above: Performed By: #### H S TROP, CMP, CK, CBC #### [address] Creatinine [Mass/Vol] 0.95 mg/dL Normal 0.70-1.30 [facility] Comment on above: Performed By: #### H S TROP, CMP, CK, CBC #### [address] Creatinine Clr Calc Pharmacy 70.44 Normal [facility] Comment on above: Result Comment: PERF ORMED BY: [place] [address] PATHOLOGIST HELICOPTER [employer] HARRY MARTI M.D. Performed By: #### H S TROP, CMP, CK, CBC #### [facility] [address] GFR/1.73 sq M.predicted MDRD (S/P/Bld) [Vol rate/Area] mL/min/{1.73_m2} [facility] Comment on above: Performed By: #### H S TROP, CMP, CK, CBC #### [facility] [address] Globulin (S) [Mass/Vol] 2.7 g/dL [facility] Comment on above: Performed By: #### H S TROP, CMP, CK, CBC #### [address] Glucose [Mass/Vol] 94 mg/dL Normal 70-100 [facility] Comment on above: Result Comment: [facility] Glucose Reference Range is dependent on time and content of last meal. Glucose of more than 200 mg/dL in a nonstressed, ambulatory subject supports the diagnosis of Diabetes Mellitus. ADA recommended reference range Performed By: #### H S TROP, CMP, CK, CBC #### [address] Potassium [Moles/Vol] 3.8 mmol/L Normal 3.5-5.1 [facility] Comment on above: Performed By: #### H S TROP, CMP, CK, CBC #### [address] Protein [Mass/Vol] 6.9 g/dL Normal 6.4-8.9 [facility] Comment on above: Performed By: #### H S TROP, CMP, CK, CBC #### [address] Sodium [Moles/Vol] 138 mmol/L Normal 136-145 [facility] Comment on above: Performed By: #### H S TROP, CMP, CK, CBC #### [address] Urea nitrogen [Mass/Vol] 18 mg/dL Normal 7-25 [facility] Comment on above: Performed By: #### H S TROP, CMP, CK, CBC #### [facility] [address] [place] [address] Creatine Kinaseon 06-20-2023 CK [Catalytic activity/Vol] 113 U/L Normal 30-223 [facility] Comment on above: Performed By: #### H S TROP, CMP, CK, CBC #### [address] Troponin I High Sensitivityo n 06-20-2023 Troponin I High Sensitivity 7.8 pg/mL Normal 0.0-20.0 [facility] Comment on above: Result Comment: PERF ORMED BY: [place] [address] PATHOLOGIST HELIC[employer] HARRY MARTI M.D. Performed By: #### H S TROP, CMP, CK, CBC #### [address] Urinalysison 06-20-2023 Appearance (U) Clear Normal Clear [facility] Comment on above: Order Comment: Name Collection Type:: Clean-Voided Midstream Performed By: #### H S TROP, CMP, CK, CBC #### [address] Bilirubin,Urine Negative Normal Negative [facility] Comment on above: Order Comment: Name Collection Type:: Clean-Voided Midstream Performed By: #### H S TROP, CMP, CK, CBC #### [address] Color (U) Yellow Normal Yellow [facility] Comment on above: Order Comment: Name Collection Type:: Clean-Voided Midstream Performed By: #### H S TROP, CMP, CK, CBC #### [address] Glucose Ql (U) Normal Normal Normal [facility] Comment on above: Order Comment: Name Collection Type:: Clean-Voided Midstream Performed By: #### H S TROP, CMP, CK, CBC #### [facility] [address] [place] [address] Ketones Ql (U) Negative Normal Negative [facility] Comment on above: Order Comment: Name Collection Type:: Clean-Voided Midstream Performed By: #### H S TROP, CMP, CK, CBC #### [address] Leukocyte esterase Test strip Ql (U) Negative Normal Negative [facility] Comment on above: Order Comment: Name Collection Type:: Clean-Voided Midstream Performed By: #### H S TROP, CMP, CK, CBC #### [place] [address] [place] Nitrite,Urine Negative Normal Negative [facility] Comment on above: Order Comment: Name Collection Type:: Clean-Voided Midstream Performed By: #### H S TROP, CMP, CK, CBC #### [address] Occult Blood,Urine Negative Normal Negative [facility] Comment on above: Order Comment: Name Collection Type:: Clean-Voided Midstream Result Comment: PERF ORMED BY: [place] [address] PATHOLOGIST HELIC[employer]TER [employer] HARRY MARTI M.D. Performed By: #### H S TROP, CMP, CK, CBC #### [address] pH (U) 5.5 [pH] Normal 5.0-9.0 [facility] Comment on above: Order Comment: Name Collection Type:: Clean-Voided Midstream Performed By: #### H S TROP, CMP, CK, CBC #### [place] [address] [place] Protein,Urine Negative Normal Negative [facility] Comment on above: Order Comment: Name Collection Type:: Clean-Voided Midstream Performed By: #### H S TROP, CMP, CK, CBC #### [address] Specificy Maynard,Urine 1.005 Normal 1.001-1.03 0 [facility] Comment on above: Order Comment: Name Collection Type:: Clean-Voided Midstream Performed By: #### H S TROP, CMP, CK, CBC #### [facility] [address] Urobilinogen,Urine Normal Normal Normal [facility] Comment on above: Order Comment: Name Collection Type:: Clean-Voided Midstream Performed By: #### H S TROP, CMP, CK, CBC #### [facility] [address] [place] [id number] [facility] XR chest 2V*on 06-20-2023 XR chest 2V* [facility] [address] [place] [address] [place] [address] XRay Report Signed Patient: Yonatan Patel MR#: [id number] 6 : 1945 Acct:[id number] Age/Sex: 78 / M ADM Date: 06/20/23 Loc: Room: [address] [place] [address] Type: ADM INOo Attending Dr: Jassi Arias [...] Daisha Fernandez M.D.06/20/2023 11:21 AM Dictation Location: [place] [address] Transcribed By: [facility] 06/20/23 1121 Dictated By: Daisha Fernandez II, MD 06/20/23 1120 Signed By: 06/20/23 1121 Normal [facility] Alanine aminotransferase [En zymatic activity/volume] in Serum or PlasmaOrdered By: PROVIDER TEMP on 06-19-2023 ALT [Catalytic activity/Vol] 31 U/L 7-52 [facility] Albumin [Mass/volume] in Ser um or Plasma by Bromocresol green (BCG) dye binding methoOrdered By: PROVIDER TEMP on 06-19-2023 Albumin BCG dye [Mass/Vol] 4.2 g/dL 3.5-5.7 [facility] Alkaline phosphatase [Enzyma tic activity/volume] in Serum or PlasmaOrdered By: PROVIDER TEMP on 06-19-2023 ALP [Catalytic activity/Vol] 53 U/L 34-104 [facility] Aspartate aminotransferase [ Enzymatic activity/volume] in Serum or PlasmaOrdered By: PROVIDER TEMP on 06-19-2023 AST [Catalytic activity/Vol] 33 U/L 13-39 [facility] Basophils Auto (Bld) [#/Vol] Ordered By: PROVIDER TEMP on 06-19-2023 Basophils (Bld) [#/Vol] 0.0 10*3/uL 0.0-0.2 [facility] Basophils/100 WBC Auto (Bld) Ordered By: PROVIDER TEMP on 06-19-2023 Basophils/100 WBC (Bld) 0.4 % . [facility] Bilirubin Auto test strip Ql (U)Ordered By: PROVIDER TEMP on 06-19-2023 Bilirubin Ql (U) Negative Negative [facility] Bilirubin.total [Mass/volume ] in Serum or PlasmaOrdered By: PROVIDER TEMP on 06-19-2023 Bilirubin [Mass/Vol] 1.0 mg/dL 0.3-1.0 [facility] Calcium [Mass/volume] in Ser um or PlasmaOrdered By: PROVIDER TEMP on 06-19-2023 Calcium [Mass/Vol] 9.8 mg/dL 8.6-10.3 [facility] Carbon dioxide, total [Moles /volume] in Serum or PlasmaOrdered By: PROVIDER TEMP on 06-19-2023 CO2 [Moles/Vol] 25.6 mmol/L 21.0-31.0 [facility] Chloride [Moles/volume] in S raymundo or PlasmaOrdered By: PROVIDER TEMP on 06-19-2023 Chloride [Moles/Vol] 107 mmol/L 98-107 [facility] Creatine kinase [Enzymatic a ctivity/volume] in Serum or PlasmaOrdered By: PROVIDER TEMP on 06-19-2023 CK [Catalytic activity/Vol] 113 U/L 30-223 [facility] Creatinine [Mass/volume] in Serum or PlasmaOrdered By: PROVIDER TEMP on 06-19-2023 Creatinine [Mass/Vol] 0.95 mg/dL 0.70-1.30 [facility] Eosinophils Auto (Bld) [#/Vo l]Ordered By: PROVIDER TEMP on 06-19-2023 Eosinophils (Bld) [#/Vol] 0.0 10*3/uL 0.0-0.45 [facility] Eosinophils/100 WBC Auto (Bl d)Ordered By: PROVIDER TEMP on 06-19-2023 Eosinophils/100 WBC (Bld) 0.6 % . [facility] Erythrocyte distribution wid th Auto (RBC) [Ratio]Ordered By: PROVIDER TEMP on 06-19-2023 Erythrocyte distribution width (RBC) [Ratio] 14.9 % 12.0-14.8 [facility] Globulin Calc (S) [Mass/Vol] Ordered By: PROVIDER TEMP on 06-19-2023 Globulin (S) [Mass/Vol] 2.7 g/dL [facility] Glucose [Mass/volume] in Ser um or PlasmaOrdered By: PROVIDER TEMP on 06-19-2023 Glucose [Mass/Vol] 94 mg/dL 70-100 [facility] Comment on above: ADA recommended refe rence rangeRandom Glucose Reference Range is dependent on time and content of last meal. Glucose of more than 200 mg/dL in a nonstressed, ambulatory subject supports the diagnosis of Diabetes Mellitus. Hematocrit Auto (Bld) [Volum e fraction]Ordered By: PROVIDER TEMP on 06-19-2023 Hematocrit (Bld) [Volume fraction] 43.3 % 38.8-50.0 [facility] Hemoglobin [Mass/volume] in BloodOrdered By: PROVIDER TEMP on 06-19-2023 Hemoglobin (Bld) [Mass/Vol] 14.8 g/dL 13.0-17.0 [facility] Ketones Auto test strip (U) [Mass/Vol]Ordered By: PROVIDER TEMP on 06-19-2023 Ketones (U) [Mass/Vol] Negative Negative Fi [facility] Leukocytes [#/volume] correc airam for nucleated erythrocytes in Blood by Automated counOrdered By: PROVIDER TEMP on 06-19-2023 WBC corrected for nucl RBC Auto (Bld) [#/Vol] 4.8 10*3/uL 4.1-10.5 [facility] Lymphocytes Auto (Bld) [#/Vo l]Ordered By: PROVIDER TEMP on 06-19-2023 Lymphocytes (Bld) [#/Vol] 1.0 10*3/uL 1.00-4.8 [facility] Lymphocytes/100 WBC Auto (Bl d)Ordered By: PROVIDER TEMP on 06-19-2023 Lymphocytes/100 WBC (Bld) 20.8 % . [facility] MCH Auto (RBC) [Entitic mass ]Ordered By: PROVIDER TEMP on 06-19-2023 MCH (RBC) [Entitic mass] 30.0 pg 27.5-35.2 [facility] MCHC Auto (RBC) [Mass/Vol]Or dered By: PROVIDER TEMP on 06-19-2023 MCHC (RBC) [Mass/Vol] 34.2 g/dL 32.5-35.6 [facility] MCV Auto (RBC) [Entitic vol] Ordered By: PROVIDER TEMP on 06-19-2023 MCV (RBC) [Entitic vol] 87.6 fL 83.5-101 [facility] Monocyte distribution width [Entitic volume] in Blood by AutomatedOrdered By: PROVIDER TEMP on 06-19-2023 Monocyte distribution width Auto (Bld) [Entitic vol] 24.01 % 0.00-20.00 [facility] Comment on above: For adults in ED, MD W > 20.0 may be associated with a higher risk of sepsis during the first 12 hrs of hospital admission Monocytes Auto (Bld) [#/Vol] Ordered By: PROVIDER TEMP on 06-19-2023 Monocytes (Bld) [#/Vol] 0.8 10*3/uL 0.0-0.8 [facility] Monocytes/100 WBC Auto (Bld) Ordered By: PROVIDER TEMP on 06-19-2023 Monocytes/100 WBC (Bld) 15.6 % . [facility] Neutrophils Auto (Bld) [#/Vo l]Ordered By: PROVIDER TEMP on 06-19-2023 Neutrophils (Bld) [#/Vol] 3.0 10*3/uL 1.8-7.7 [facility] Neutrophils/100 WBC Auto (Bl d)Ordered By: PROVIDER TEMP on 06-19-2023 Neutrophils/100 WBC (Bld) 62.6 % . [facility] No Panel InformationOrdered By: PROVIDER TEMP on 06-19-2023 Estimated GFR (CKD-EPI) > 60.0 mL/Min [facility] Creatinine Clearance (Chem 70.44 [facility] Nucleated erythrocytes [Pres ence] in Blood by Automated countOrdered By: PROVIDER TEMP on 06-19-2023 Nucleated RBC Auto Ql (Bld) 0.4 /100{WBC} 0-0.5 [facility] Platelet mean volume Auto (B ld) [Entitic vol]Ordered By: PROVIDER TEMP on 06-19-2023 Platelet mean volume (Bld) [Entitic vol] 7.9 fL 6.6-10.1 [facility] Platelets Auto (Bld) [#/Vol] Ordered By: PROVIDER TEMP on 06-19-2023 Platelets (Bld) [#/Vol] 154 10*3/uL 150-450 [facility] Potassium [Moles/volume] in Serum or PlasmaOrdered By: PROVIDER TEMP on 06-19-2023 Potassium [Moles/Vol] 3.8 mmol/L 3.5-5.1 [facility] Protein Auto test strip (U) [Mass/Vol]Ordered By: PROVIDER TEMP on 06-19-2023 Protein (U) [Mass/Vol] Negative Negative [facility] Protein [Mass/volume] in Ser um or PlasmaOrdered By: PROVIDER TEMP on 06-19-2023 Protein [Mass/Vol] 6.9 g/dL 6.4-8.9 [facility] RBC Auto (Bld) [#/Vol]Ordere d By: PROVIDER TEMP on 06-19-2023 RBC (Bld) [#/Vol] 4.94 10*6/uL 3.90-5.60 [facility] Serum or plasma albumin/glob ulin mass ratioOrdered By: PROVIDER TEMP on 06-19-2023 Albumin/Globulin [Mass ratio] 1.6 {ratio} [facility] Serum or plasma anion gap de terminationOrdered By: PROVIDER TEMP on 06-19-2023 Anion gap [Moles/Vol] 9.2 mmol/L 6.0-15.0 [facility] Sodium [Moles/volume] in Ser um or PlasmaOrdered By: PROVIDER TEMP on 06-19-2023 Sodium [Moles/Vol] 138 mmol/L 136-145 [facility] Troponin I.cardiac [Mass/vol ume] in Serum or Plasma by Detection limit <= 0.01 ng/Ordered By: PROVIDER TEMP on 06-19-2023 Troponin I.cardiac DL <= 0.01 ng/mL [Mass/Vol] 7.8 pg/mL 0.0-20.0 [facility] Urea nitrogen [Mass/volume] in Serum or PlasmaOrdered By: PROVIDER TEMP on 06-19-2023 Urea nitrogen [Mass/Vol] 18 mg/dL 7-25 [facility] Urine appearanceOrdered By: PROVIDER TEMP on 06-19-2023 Appearance (U) Clear Clear [facility] Urine colorOrdered By: SOLE JEANETTE TEMP on 06-19-2023 Color (U) Yellow Yellow [facility] Urine glucose measurement by automated test strip (mass/volume)Ordered By: PROVIDER TEMP on 06-19-2023 Glucose Auto test strip (U) [Mass/Vol] Normal mg/dL Normal [facility] Urine hemoglobin detection b y automated test stripOrdered By: PROVIDER TEMP on 06-19-2023 Hemoglobin Auto test strip Ql (U) Negative Negative [facility] Urine leukocyte esterase det ection by automated test stripOrdered By: PROVIDER TEMP on 06-19-2023 Leukocyte esterase Auto test strip Ql (U) Negative Negative [facility] Urine nitrite detection by a utomated test stripOrdered By: PROVIDER TEMP on 06-19-2023 Nitrite Auto test strip Ql (U) Negative Negative [facility] Urobilinogen Auto test strip (U) [Mass/Vol]Ordered By: PROVIDER TEMP on 06-19-2023 Urobilinogen (U) [Mass/Vol] Normal mg/dL Normal [facility] WBC Auto (Bld) [#/Vol]Ordere d By: PROVIDER TEMP on 06-19-2023 WBC (Bld) [#/Vol] 4.8 10*3/uL 4.1-10.5 [facility] pH Auto test strip (U)Ordere d By: PROVIDER TEMP on 06-19-2023 pH (U) 1.005 [pH] 1.001-1.03 0 [facility] pH (U) 5.5 [pH] 5.0-9.0 [facility] ECH echo transthoracicon [facility] echo transthoracic [facility] [place] [address] Echocardiogram Signed Patient: Yonatan Patel MR#: [id number] 6 : 1945 Acct:[id number] Age/Sex: 77 / M ADM Date: 03/01/23 Loc: Room: [address] [place] [address] Type: ADM INOo Attending Dr: Angely Lee DO Ordering Provider: Bobo Villagomez MD Date of Service: 03/01/23 [facility] echo transthoracic: Neuro Symptoms/Deficit Copies to: Sinan Jolly MD, [facility] Bobo Villagomez MD Weight: 188 lb Performed [...] Signed By: Sinan Jolly MD, FACC 03/02/[address] [place] [address] MR cervical spine wo conon 0 03-02-2023 MR cervical spine wo con [facility] [place] [address] MRI Report Signed Patient: Yonatan Patel MR#: [id number] 6 : 1945 Acct:[id number] Age/Sex: 77 / M ADM Date: 03/01/23 Loc: Room: [address] [place] [address] Type: ADM INOo Attending Dr: Angely Lee [...] Daisha Fernandez M.D.03/02/2023 5:11 PM Dictation Location: [place] [address] Transcribed By: MICHEL 03/02/23 171 Dictated By: Daisha Fernandez II, MD 03/02/23 170 Signed By: 03/02/23 171 Normal [facility] MR lumbar spine wo conon MR lumbar spine wo con [facility] Main [place] [address] [place] [address] MRI Report Signed Patient: Yonatan Patel MR#: [id number] 6 : 1945 Acct:[id number] Age/Sex: 77 / M ADM Date: 03/01/23 Loc: Room: [address] [place] [address] Type: ADM INOo Attending Dr: Angely Lee [...] Daisha Fernandez M.D.03/02/2023 5:18 PM Dictation Location: [place] [address] Transcribed By: MICHEL 03/02/231717 Dictated By: Daisha Fernandez II, MD 03/02/231710 Signed By: 03/02/231717 Normal [facility] A1C with Estimated Average G [facility] 03-01-2023 Glucose [Mass/Vol] 123 mg/dL Normal [facility] Comment on above: Order Comment: Comme nt add on Result Comment: PERF ORMED BY: [place] [address] PATHOLOGIST [employer] HARRY MARTI M.D. Performed By: #### A 1C WT Krista, LIPID #### [facility] [address] [place] [address] HbA1c (Bld) [Mass fraction] 5.9 % High 4.3-5.6 [facility] Comment on above: Order Comment: Comme nt add on Result Comment: Incr eased risk for diabetes: 5.7 - 6.4 diabetes: >6.4 glycemic control for adults with diabetes: <7.0 Performed By: #### A 1C WTH eA, LIPID #### [facility] [address] [place] [address] Activated partial thrombopla stin time (aPTT) in platelet poor plasma by coagulation aOrdered By: Alejo Lynn on 03-01-2023 aPTT Coag (PPP) [Time] 27.2 s 25.1-36.5 [facility] Alanine aminotransferase [En zymatic activity/volume] in Serum or PlasmaOrdered By: Alejo Lynn on 03-01-2023 ALT [Catalytic activity/Vol] 34 U/L 7-52 [facility] Albumin [Mass/volume] in Ser um or Plasma by Bromocresol green (BCG) dye binding methoOrdered By: Alejo Lynn on 03-01-2023 Albumin BCG dye [Mass/Vol] 4.4 g/dL 3.5-5.7 [facility] Alkaline phosphatase [Enzyma tic activity/volume] in Serum or PlasmaOrdered By: Alejo Lynn on 03-01-2023 ALP [Catalytic activity/Vol] 61 U/L 34-104 [facility] Aspartate aminotransferase [ Enzymatic activity/volume] in Serum or PlasmaOrdered By: Alejo Lynn on 03-01-2023 AST [Catalytic activity/Vol] 30 U/L 13-39 [facility] B-Type Natriuretic Peptideon 03-01-2023 Natriuretic peptide B (Bld) [Mass/Vol] 96.0 pg/mL Normal 5-100 [facility] Comment on above: Result Comment: PERF ORMED BY: [place] [address] PATHOLOGIST [employer] HARRY MARTI M.D. Performed By: #### H S TROP, CMP, CK, CBC #### [address] Basic Metabolic Panelon 02-14 Anion gap [Moles/Vol] 10.3 mmol/L Normal 6.0-15.0 [facility] Comment on above: Performed By: #### H S TROP, CMP, CK, CBC #### [facility] [address] [place] [id number] [place] Calcium [Mass/Vol] 9.7 mg/dL Normal 8.6-10.3 [facility] Comment on above: Performed By: #### H S TROP, CMP, CK, CBC #### [facility] [address] [place] [address] [place] Chloride [Moles/Vol] 107 mmol/L Normal 98-107 [facility] Comment on above: Performed By: #### H S TROP, CMP, CK, CBC #### [address] CO2 [Moles/Vol] 26.0 mmol/L Normal 21.0-31.0 [facility] Comment on above: Performed By: #### H S TROP, CMP, CK, CBC #### [address] Creatinine [Mass/Vol] 0.91 mg/dL Normal 0.70-1.30 [facility] Comment on above: Performed By: #### H S TROP, CMP, CK, CBC #### [address] Creatinine Clr Calc Pharmacy 76.53 [facility] Comment on above: Result Comment: PERF ORMED BY: [place] [address] PATHOLOGIST HEL[employer] HARRY MARTI M.D. Performed By: #### H S TROP, CMP, CK, CBC #### [address] GFR/1.73 sq M.predicted MDRD (S/P/Bld) [Vol rate/Area] mL/min/{1.73_m2} [facility] Comment on above: Performed By: #### H S TROP, CMP, CK, CBC #### [address] Glucose [Mass/Vol] 106 mg/dL High 70-100 [facility] Comment on above: Result Comment: [place] Glucose Reference Range is dependent on time and content of last meal. Glucose of more than 200 mg/dL in a nonstressed, ambulatory subject supports the diagnosis of Diabetes Mellitus. ADA recommended reference range Performed By: #### H S TROP, CMP, CK, CBC #### [address] Potassium [Moles/Vol] 4.3 mmol/L Normal 3.5-5.1 [facility] Comment on above: Performed By: #### H S TROP, CMP, CK, CBC #### [facility] [address] [place] [address] [place] Sodium [Moles/Vol] 139 mmol/L Normal 136-145 [facility] Comment on above: Performed By: #### H S TROP, CMP, CK, CBC #### [facility] [address] [place] [address] [place] Urea nitrogen [Mass/Vol] 16 mg/dL Normal 7-25 [facility] Comment on above: Performed By: #### H S TROP, CMP, CK, CBC #### [facility] [address] [place] [address] [place] Basophils Auto (Bld) [#/Vol] Ordered By: Alejo Lynn on 03-01-2023 Basophils (Bld) [#/Vol] 0.0 10*3/uL 0.0-0.2 [facility] Basophils/100 WBC Auto (Bld) Ordered By: Alejo Lynn on 03-01-2023 Basophils/100 WBC (Bld) 0.7 % . [facility] Bilirubin Test strip Ql (U)O rdered By: Alejo Lynn on 03-01-2023 Bilirubin Ql (U) Negative Negative [facility] Bilirubin.direct [Mass/volum e] in Serum or PlasmaOrdered By: Alejo Lynn on 03-01-2023 Bilirubin.direct [Mass/Vol] 0.30 mg/dL 0.03-0.18 [facility] Bilirubin.total [Mass/volume ] in Serum or PlasmaOrdered By: Alejo Lynn on 03-01-2023 Bilirubin [Mass/Vol] 1.7 mg/dL 0.3-1.0 [facility] Comment on above: Samples from patient s who have taken Naproxen have shown spurious elevation in Total Bilirubin levels. A metabolite of Naproxen, O-desmethylnaproxen, has been shown to interfere with the Gill method for measuring Total Bilirubin. CT head stroke alert wo cono n 03-01-2023 CT head stroke alert wo con [facility] [place] [place] [address] CT Scan Report Signed Patient: Yonatan Patel MR#: [id number] 6 : 1945 Acct:[id number] Age/Sex: 77 / M ADM Date: 03/01/23 Loc: ER Room: Type: [facility] ER Attending Dr: Copies to: Alejo [...] Selena Reid M.D.03/01/2023 8:13 AM Dictation Location: [place] [address] Transcribed By: [facility] 03/01/23812 Dictated By: Selena Reid MD 03/01/2307 Signed By: 03/01/23812 Normal [facility] Calcium [Mass/volume] in Ser um or PlasmaOrdered By: Alejo Lynn on 03-01-2023 Calcium [Mass/Vol] 9.7 mg/dL 8.6-10.3 [facility] Carbon dioxide, total [Moles /volume] in Serum or PlasmaOrdered By: Alejo Lynn on 03-01-2023 CO2 [Moles/Vol] 26.0 mmol/L 21.0-31.0 [facility] Chloride [Moles/volume] in S raymundo or PlasmaOrdered By: Alejo Leah on 03-01-2023 Chloride [Moles/Vol] 107 mmol/L 98-107 [facility] Color Auto (U)Ordered By: Franco zuhair Leah on 03-01-2023 Color (U) Yellow Yellow [facility] Complete Blood Count Auto Di ffon 03-01-2023 Basophils (Bld) [#/Vol] 0.0 10*3/uL Normal 0.0-0.2 [facility] Comment on above: Result Comment: PERF ORMED BY: [place] [address] PATHOLOGIST [employer] HARRY MARTI M.D. Performed By: #### H S TROP, CMP, CK, CBC #### [facility] [address] [place] [address] Basophils/100 WBC (Bld) 0.7 % Normal . [facility] Comment on above: Performed By: #### H S TROP, CMP, CK, CBC #### [facility] [address] [place] [address] Eosinophils (Bld) [#/Vol] 0.1 10*3/uL Normal 0.0-0.45 [facility] Comment on above: Performed By: #### H S TROP, CMP, CK, CBC #### [address] Eosinophils/100 WBC (Bld) 1.4 % Normal . [facility] Comment on above: Performed By: #### H S TROP, CMP, CK, CBC #### [facility] [address] [place] [address] Erythrocyte distribution width (RBC) [Ratio] 14.5 % Normal 12.0-14.8 [facility] Comment on above: Performed By: #### H S TROP, CMP, CK, CBC #### [facility] [address] [place] [address] Hematocrit (Bld) [Volume fraction] 43.2 % Normal 38.8-50.0 [facility] Comment on above: Performed By: #### H S TROP, CMP, CK, CBC #### [address] Hemoglobin (Bld) [Mass/Vol] 14.9 g/dL Normal 13.0-17.0 [facility] Comment on above: Performed By: #### H S TROP, CMP, CK, CBC #### [address] Lymphocytes (Bld) [#/Vol] 1.3 10*3/uL Normal 1.00-4.8 [facility] Comment on above: Performed By: #### H S TROP, CMP, CK, CBC #### [address] Lymphocytes/100 WBC (Bld) 23.7 % Normal . [facility] Comment on above: Performed By: #### H S TROP, CMP, CK, CBC #### [address] MCH (RBC) [Entitic mass] 29.6 pg Normal 27.5-35.2 [facility] Comment on above: Performed By: #### H S TROP, CMP, CK, CBC #### [address] MCV (RBC) [Entitic vol] 86.1 fL Normal 83.5-101 [facility] Comment on above: Performed By: #### H S TROP, CMP, CK, CBC #### [address] Mean Corpuscular HGB Conc 34.4 g/dL Normal 32.5-35.6 [facility] Comment on above: Performed By: #### H S TROP, CMP, CK, CBC #### [address] Monocytes (Bld) [#/Vol] 0.4 10*3/uL Normal 0.0-0.8 [facility] Comment on above: Performed By: #### H S TROP, CMP, CK, CBC #### [address] Monocytes/100 WBC (Bld) 17.75 % Normal 0.00-20.00 [facility] Comment on above: Performed By: #### H S TROP, CMP, CK, CBC #### [address] Monocytes/100 WBC (Bld) 8.3 % Normal . [facility] Comment on above: Performed By: #### H S TROP, CMP, CK, CBC #### [address] Neutrophils (Bld) [#/Vol] 3.5 10*3/uL Normal 1.8-7.7 [facility] Comment on above: Performed By: #### H S TROP, CMP, CK, CBC #### [address] Neutrophils/100 WBC (Bld) 65.9 % Normal . [facility] Comment on above: Performed By: #### H S TROP, CMP, CK, CBC #### [address] NRBC% 0.3 /100{WBC} Normal 0-0.5 [facility] Comment on above: Performed By: #### H S TROP, CMP, CK, CBC #### [address] Platelet mean volume (Bld) [Entitic vol] 8.0 fL Normal 6.6-10.1 [facility] Comment on above: Performed By: #### H S TROP, CMP, CK, CBC #### [place] [address] [place] Platelets (Bld) [#/Vol] 143 10*3/uL Low 150-450 [facility] Comment on above: Performed By: #### H S TROP, CMP, CK, CBC #### [place] [address] [place] RBC (Bld) [#/Vol] 5.02 10*6/uL Normal 3.90-5.60 [facility] Comment on above: Performed By: #### H S TROP, CMP, CK, CBC #### [facility] [address] [place] [address] WBC (Bld) [#/Vol] 5.4 10*3/uL Normal 4.1-10.5 [facility] Comment on above: Performed By: #### H S TROP, CMP, CK, CBC #### [facility] [address] [place] [address] Creatine Kinaseon 03-01-2023 CK [Catalytic activity/Vol] 178 U/L Normal [facility] Comment on above: Performed By: #### H S TROP, CMP, CK, CBC #### [address] Creatine kinase [Enzymatic a ctivity/volume] in Serum or PlasmaOrdered By: Alejo Lynn on 03-01-2023 CK [Catalytic activity/Vol] 178 U/L [facility] Creatinine [Mass/volume] in Serum or PlasmaOrdered By: Alejo Lynn on 03-01-2023 Creatinine [Mass/Vol] 0.91 mg/dL 0.70-1.30 [facility] ECG 12 lead ECGon 03-01-2023 ECG 12 lead ECG [facility] Main [place] [address] [place] [address] Electrocardiograph Report Signed Patient: Yonatan Patel MR#: [id number] 6 : 1945 Acct:[id number] Age/Sex: 77 / M ADM Date: 03/01/23 Loc: Room: [address] [place] [address] Type: ADM INOo Attending Dr: Bobo Villagomez MD Ordering Provider: Alejo Lynn, Date of Service: 03/01/23 ECG/ECG 12 lead [...] longer present Confirmed by Alejo Lynn DO ([id number]) on 03/01/2023 3:12:57 PM Referred By: Electronically Signed By:Alejo Lynn DO Transcribed By: MUS Signed By Alejo Lynn DO 3 1513 Normal [facility] Eosinophils Auto (Bld) [#/Vo l]Ordered By: Alejo Lynn on 03-01-2023 Eosinophils (Bld) [#/Vol] 0.1 10*3/uL 0.0-0.45 [facility] Eosinophils/100 WBC Auto (Bl d)Ordered By: Alejo Lynn on 03-01-2023 Eosinophils/100 WBC (Bld) 1.4 % . [facility] Erythrocyte distribution wid th Auto (RBC) [Ratio]Ordered By: Alejo Lynn on 03-01-2023 Erythrocyte distribution width (RBC) [Ratio] 14.5 % 12.0-14.8 [facility] Globulin Calc (S) [Mass/Vol] Ordered By: Alejo Lynn on 03-01-2023 Globulin (S) [Mass/Vol] 2.3 g/dL [facility] Glucose [Mass/volume] in Ser um or PlasmaOrdered By: Alejo Lynn on 03-01-2023 Glucose [Mass/Vol] 106 mg/dL 70-100 [facility] Comment on above: ADA recommended refe rence rangeRandom Glucose Reference Range is dependent on time and content of last meal. Glucose of more than 200 mg/dL in a nonstressed, ambulatory subject supports the diagnosis of Diabetes Mellitus. Hematocrit Auto (Bld) [Volum e fraction]Ordered By: Alejo Lynn on 03-01-2023 Hematocrit (Bld) [Volume fraction] 43.2 % 38.8-50.0 [facility] Hemoglobin [Mass/volume] in BloodOrdered By: Alejo Lynn on 03-01-2023 Hemoglobin (Bld) [Mass/Vol] 14.9 g/dL 13.0-17.0 [facility] Hepatic Panelon 03-01-2023 Albumin [Mass/Vol] 4.4 g/dL Normal 3.5-5.7 [facility] Comment on above: Performed By: #### H S TROP, CMP, CK, CBC #### [address] Albumin/Globulin [Mass ratio] 1.9 {ratio} Normal [facility] Comment on above: Performed By: #### H S TROP, CMP, CK, CBC #### [address] ALP [Catalytic activity/Vol] 61 U/L Normal 34-104 [facility] Comment on above: Performed By: #### H S TROP, CMP, CK, CBC #### [address] ALT [Catalytic activity/Vol] 34 U/L Normal 7-52 [facility] Comment on above: Performed By: #### H S TROP, CMP, CK, CBC #### [address] AST [Catalytic activity/Vol] 30 U/L Normal 13-39 [facility] Comment on above: Performed By: #### H S TROP, CMP, CK, CBC #### [address] Bilirubin [Mass/Vol] 1.7 mg/dL High 0.3-1.0 [facility] Comment on above: Result Comment: Samp les from patients who have taken Naproxen have shown spurious elevation in Total Bilirubin levels. A metabolite of Naproxen, O-desmethylnaproxen, has been shown to interfere with the Jendrassik-Grof method for measuring Total Bilirubin. Performed By: #### H S TROP, CMP, CK, CBC #### [address] Bilirubin,Indirect 1.4 mg/dL Normal [facility] Comment on above: Performed By: #### H S TROP, CMP, CK, CBC #### [address] Bilirubin.indirect [Mass/Vol] 0.30 mg/dL High 0.03-0.18 [facility] Comment on above: Performed By: #### H S TROP, CMP, CK, CBC #### [facility] [address] Globulin (S) [Mass/Vol] 2.3 g/dL Normal [facility] Comment on above: Performed By: #### H S TROP, CMP, CK, CBC #### [facility] [address] Protein [Mass/Vol] 6.7 g/dL Normal 6.4-8.9 [facility] Comment on above: Performed By: #### H S TROP, CMP, CK, CBC #### [facility] [address] Ketones Auto test strip (U) [Mass/Vol]Ordered By: Alejo Lynn on 03-01-2023 Ketones (U) [Mass/Vol] Negative Negative [facility] - CoagulationOrde red By: Alejo Lynn on 03-01-2023 PT Coag (PPP) [Time] 11.6 s 9.0-12.9 [facility] Leukocytes [#/volume] correc airam for nucleated erythrocytes in Blood by Automated counOrdered By: Alejo Lynn on 03-01-2023 WBC corrected for nucl RBC Auto (Bld) [#/Vol] 5.4 10*3/uL 4.1-10.5 [facility] Lipid Panelon 03-01-2023 Cholesterol [Mass/Vol] 96 mg/dL Low 140-200 [facility] Comment on above: Order Comment: Comme nt add on Result Comment: Chol less than 200 mg/dl low risk Chol 201-239 mg/dl borderline risk Chol 240 mg/dl and greater high risk Performed By: #### A 1C WTH eA, LIPID #### [facility] [address] Cholesterol in HDL [Mass/Vol] 36 mg/dL Normal 23-92 [facility] Comment on above: Order Comment: Comme nt add on Result Comment: HDL CHOL ATP-III CLASSIFICATION Cardiovascular Risk HDL > or equal to 60 mg/dL LOW HDL < 40 mg/dL HIGH Performed By: #### A 1C WT eA, LIPID #### [facility] [address] Cholesterol.total/Chol esterol in HDL [Mass ratio] 2.7 {ratio} Normal <5.0 [facility] Comment on above: Order Comment: Comme nt add on Result Comment: PERF ORMED BY: [place] [address] PATHOLOGIST [employer] HARRY MARTI M.D. Performed By: #### A 1C WT eA, LIPID #### [address] LDL Cholesterol,Calculated 39 mg/dL Normal 0-100 [facility] Comment on above: Order Comment: Comme nt add on Result Comment: LDL ATP III CLASSIFICATION LDL less than 100 mg/dL Optimal LDL 100-129 mg/dL Near or above optimal LDL 130-159 mg/dL Borderline high LDL 160-189 mg/dL High LDL greater than 189 mg/dL Very high Performed By: #### A 1C WT eA, LIPID #### [facility] [address] Triglyceride w/Reflex 106 mg/dL Normal 0-149 [facility] Comment on above: Order Comment: Comme nt add on Result Comment: TRIG ATP III CLASSIFICATION TRIG less than 150 mg/dL Normal TRIG 150-199 mg/dL Borderline high TRIG 200-500 mg/dL High TRIG greater than 500 mg/dL Very high Standard traceable to the Center for Disease Conrtrol and Prevention (CDC) test method. Performed By: #### A 1C WTH eA, LIPID #### [facility] [address] VLDL CHOLESTEROL 21 mg/dL Normal [facility] Comment on above: Order Comment: Comme nt add on Performed By: #### A 1C WTH eA, LIPID #### [facility] [address] Lymphocytes Auto (Bld) [#/Vo l]Ordered By: Alejo Lynn on 03-01-2023 Lymphocytes (Bld) [#/Vol] 1.3 10*3/uL 1.00-4.8 [facility] Lymphocytes/100 WBC Auto (Bl d)Ordered By: Aljeo Lynn on 03-01-2023 Lymphocytes/100 WBC (Bld) 23.7 % . [facility] MCH Auto (RBC) [Entitic mass ]Ordered By: Alejo Lynn on 03-01-2023 MCH (RBC) [Entitic mass] 29.6 pg 27.5-35.2 [facility]CHC Auto (RBC) [Mass/Vol]Or dered By: Alejo Lynn on 03-01-2023 MCHC (RBC) [Mass/Vol] 34.4 g/dL 32.5-35.6 [facility] MCV Auto (RBC) [Entitic vol] Ordered By: Alejo Lynn on 03-01-2023 MCV (RBC) [Entitic vol] 86.1 fL 83.5-101 [facility] Monocyte distribution width [Entitic volume] in Blood by AutomatedOrdered By: Alejo Lynn on 03-01-2023 Monocyte distribution width Auto (Bld) [Entitic vol] 17.75 % 0.00-20.00 [facility] Monocytes Auto (Bld) [#/Vol] Ordered By: Alejo Lynn on 03-01-2023 Monocytes (Bld) [#/Vol] 0.4 10*3/uL 0.0-0.8 [facility] Monocytes/100 WBC Auto (Bld) Ordered By: Alejo Lynn on 03-01-2023 Monocytes/100 WBC (Bld) 8.3 % . [facility] Natriuretic peptide B [Mass/ Vol]Ordered By: Alejo Lynn on 03-01-2023 Natriuretic peptide B (Bld) [Mass/Vol] 96.0 pg/mL 5-100 [facility] Neutrophils Auto (Bld) [#/Vo l]Ordered By: Alejo Lynn on 03-01-2023 Neutrophils (Bld) [#/Vol] 3.5 10*3/uL 1.8-7.7 [facility] Neutrophils/100 WBC Auto (Bl d)Ordered By: Alejo Lynn on 03-01-2023 Neutrophils/100 WBC (Bld) 65.9 % . [facility] Nitrite Test strip Ql (U)Ord ered By: Alejo Lynn on 03-01-2023 Nitrite Ql (U) Negative Negative [facility] No Panel InformationOrdered By: Alejo Lynn on 03-01-2023 Estimated GFR (CKD-EPI) > 60.0 mL/Min [facility] Creatinine Clearance (Chem 76.53 [facility] Nucleated erythrocytes [Pres ence] in Blood by Automated countOrdered By: Alejo Lynn on 03-01-2023 Nucleated RBC Auto Ql (Bld) 0.3 /100{WBC} 0-0.5 [facility] Partial Thromboplastin Timeo n 03-01-2023 aPTT Coag (Bld) [Time] 27.2 s Normal 25.1-36.5 [facility] Comment on above: Result Comment: PERF ORMED BY: [place] [address] PATHOLOGIST HELICOPTER [employer]CREW[employer] HARRY MARTI M.D. Performed By: #### H S TROP, CMP, CK, CBC #### [address] Platelet mean volume Auto (B ld) [Entitic vol]Ordered By: Alejo Lynn on 03-01-2023 Platelet mean volume (Bld) [Entitic vol] 8.0 fL 6.6-10.1 [facility] Platelet poor plasma interna tional normalized ratio (INR) by coagulation assay (relatOrdered By: Alejo Lynn on 03-01-2023 INR Coag (PPP) [Relative time] 1.0 {INR} [facility] Comment on above: INR Therapeutic Rang e [...] 03-01-2023 Platelets (Bld) [#/Vol] 143 10*3/uL 150-450 [facility] Potassium [Moles/volume] in Serum or PlasmaOrdered By: Alejo Lynn on 03-01-2023 Potassium [Moles/Vol] 4.3 mmol/L 3.5-5.1 [facility] Protein Auto test strip (U) [Mass/Vol]Ordered By: Alejo Lynn on 03-01-2023 Protein (U) [Mass/Vol] Negative Negative [facility] Protein [Mass/volume] in Ser um or PlasmaOrdered By: Alejo Lynn on 03-01-2023 Protein [Mass/Vol] 6.7 g/dL 6.4-8.9 [facility] Prothrombin Time INRon 03-01 INR Coag (PPP) [Relative time] 1.0 {INR} Normal [facility] Comment on above: Result Comment: INR Therapeutic [...] H S TROP, CMP, CK, CBC #### [facility] [address] [place] [address] [place] PT Coag (PPP) [Time] 11.6 s Normal 9.0-12.9 [facility] Comment on above: Performed By: #### H S TROP, CMP, CK, CBC #### [facility] [address] [place] [address] [place] RBC Auto (Bld) [#/Vol]Ordere d By: Alejo Lynn on 03-01-2023 RBC (Bld) [#/Vol] 5.02 10*6/uL 3.90-5.60 [facility] Serum or plasma albumin/glob ulin mass ratioOrdered By: Alejo Lynn on 03-01-2023 Albumin/Globulin [Mass ratio] 1.9 {ratio} [facility] Serum or plasma anion gap de terminationOrdered By: Alejo Lynn on 03-01-2023 Anion gap [Moles/Vol] 10.3 mmol/L 6.0-15.0 [facility] Serum or plasma non-glucuron idated bilirubin measurement (mass/volume)Ordered By: Alejo Lynn on 03-01-2023 Bilirubin.indirect [Mass/Vol] 1.4 mg/dL [facility] Sodium [Moles/volume] in Ser um or PlasmaOrdered By: Alejo Lynn on 03-01-2023 Sodium [Moles/Vol] 139 mmol/L 136-145 [facility] Specific gravity Auto test s trip (U) [Rel density]Ordered By: Alejo Lynn on 03-01-2023 Specific gravity (U) [Rel density] 1.014 1.001-1.03 0 [facility] Troponin I High Sensitivityo n 03-01-2023 Troponin I High Sensitivity 8.1 pg/mL Normal 0.0-20.0 [facility] Comment on above: Result Comment: PERF ORMED BY: [place] [address] PATHOLOGIST HELIC[employer]TER [employer] HARRY MARTI M.D. Performed By: #### H S TROP, CMP, CK, CBC #### [facility] [address] [place] [address] Troponin I.cardiac [Mass/vol ume] in Serum or Plasma by Detection limit <= 0.01 ng/Ordered By: Alejo Lynn on 03-01-2023 Troponin I.cardiac DL <= 0.01 ng/mL [Mass/Vol] 8.1 pg/mL 0.0-20.0 [facility] Urea nitrogen [Mass/volume] in Serum or PlasmaOrdered By: Alejo Lynn on 03-01-2023 Urea nitrogen [Mass/Vol] 16 mg/dL 7-25 [facility] Urinalysison 03-01-2023 Appearance (U) Clear Normal Clear [facility] Comment on above: Order Comment: Name Collection Type:: Clean-Voided Midstream Performed By: #### U A #### [place] [address] [place] Bilirubin,Urine Negative Normal Negative [facility] Comment on above: Order Comment: Name Collection Type:: Clean-Voided Midstream Performed By: #### U A #### [address] Color (U) Yellow Normal Yellow [facility] Comment on above: Order Comment: Name Collection Type:: Clean-Voided Midstream Performed By: #### U A #### [address] Glucose Ql (U) Normal Normal Normal [facility] Comment on above: Order Comment: Name Collection Type:: Clean-Voided Midstream Performed By: #### U A #### [address] Ketones Ql (U) Negative Normal Negative [facility] Comment on above: Order Comment: Name Collection Type:: Clean-Voided Midstream Performed By: #### U A #### [address] Leukocyte esterase Test strip Ql (U) Negative Normal Negative [facility] Comment on above: Order Comment: Name Collection Type:: Clean-Voided Midstream Performed By: #### U A #### [place] [address] [place] Nitrite,Urine Negative Normal Negative [facility] Comment on above: Order Comment: Name Collection Type:: Clean-Voided Midstream Performed By: #### U A #### [place] [address] [place] Occult Blood,Urine Negative Normal Negative [facility] Comment on above: Order Comment: Name Collection Type:: Clean-Voided Midstream Result Comment: PERF ORMED BY: [place] [address] PATHOLOGIST HELICOPTER [employer] HARRY MARTI M.D. Performed By: #### U A #### [place] [address] [place] pH (U) 7.5 [pH] Normal 5.0-9.0 [facility] Comment on above: Order Comment: Name Collection Type:: Clean-Voided Midstream Performed By: #### U A #### [address] Protein,Urine Negative Normal Negative [facility] Comment on above: Order Comment: Name Collection Type:: Clean-Voided Midstream Performed By: #### U A #### [address] Specificy Maynard,Urine 1.014 Normal 1.001-1.03 0 [facility] Comment on above: Order Comment: Name Collection Type:: Clean-Voided Midstream Performed By: #### U A #### [address] Urobilinogen,Urine Normal Normal Normal [facility] Comment on above: Order Comment: Name Collection Type:: Clean-Voided Midstream Performed By: #### U A #### [address] Urine clarity by refractomet ry automatedOrdered By: Alejo Lynn on 03-01-2023 Clarity Refractometry automated (U) Clear Clear [facility] Urine glucose measurement by automated test strip (mass/volume)Ordered By: Alejo Lynn on 03-01-2023 Glucose Auto test strip (U) [Mass/Vol] Normal mg/dL Normal [facility] Urine hemoglobin detection b y automated test stripOrdered By: Alejo Lynn on 03-01-2023 Hemoglobin Auto test strip Ql (U) Negative Negative [facility] Urine leukocyte esterase det ection by automated test stripOrdered By: Alejo Lynn on 03-01-2023 Leukocyte esterase Auto test strip Ql (U) Negative Negative [facility] Urobilinogen Auto test strip (U) [Mass/Vol]Ordered By: Alejo Lynn on 03-01-2023 Urobilinogen (U) [Mass/Vol] Normal mg/dL Normal [facility] WBC Auto (Bld) [#/Vol]Ordere d By: Alejo Lynn on 03-01-2023 WBC (Bld) [#/Vol] 5.4 10*3/uL 4.1-10.5 [facility] XR chest 1V portableon 03-01 XR chest 1V portable [facility] [address] [address] XRay Report Signed Patient: Yonatan Patel MR#: [id number] 6 : 1945 Acct:[id number] Age/Sex: 77 / M ADM Date: 03/01/23 Loc: Room: [address] [place] [address] Type: ADM INOo Attending Dr: Bobo Villagomez [...] Selena Reid M.D.03/01/2023 9:15 AM Dictation Location: [place] [address] Transcribed By: [facility] 03/01/23 0915 Dictated By: Selena Reid MD 03/01/23 0914 Signed By: 03/01/23 0915 Normal [facility] pH Auto test strip (U)Ordere d By: Alejo Lynn on 03-01-2023 pH (U) 7.5 [pH] 5.0-9.0 [facility] H Pylori Stool Ag, EIAon H Pylori Stool Ag, EIA Negative Normal Negative [facility] Comment on above: Order Comment: SOURC E OF SPECIMEN: STOOL Result Comment: Perf ormed at: - [facility] [address] [id number] [employer] Instructor: Juan Howard MD, Phone: [phone] PERFORMED BY: [address] [place] [address] PATHOLOGIST HELIC[employer]TER [employer] HARRY MARTI M.D. Performed By: #### H S TROP, CMP, CK, CBC #### [facility] [address] CBC AUTO DIFFon 09-14-2022 BASO # 0.0 103/ul Normal 0.0-0.1 [facility] Comment on above: Performed By: #### C BC #### [facility] [address] [place] [address] Dr. Patrica Nathan Basophils/100 WBC (Bld) 0.7 % Normal 0.2-2.0 [facility] Comment on above: Performed By: #### C BC #### [facility] [address] [place] [address] Dr. Patrica Nathan EO # 0.1 103/ul Normal 0.0-0.7 [facility] Comment on above: Performed By: #### C BC #### [facility] [address] [place] [address] Dr. Patrica Nathan Eosinophils/100 WBC (Bld) 1.5 % Normal 0.9-7.0 [facility] Comment on above: Performed By: #### C BC #### [facility] [address] [place] [address] Dr. Patrica Nathan Erythrocyte distribution width (RBC) [Ratio] 14.2 % Normal 11.0-15.0 [facility] Comment on above: Performed By: #### C BC #### [facility] [address] [place] [address] Dr. Patrica Nathan Hematocrit (Bld) [Volume fraction] 42.1 % Normal 42.0-54.0 [facility] Comment on above: Performed By: #### C BC #### [facility] [address] [place] [address] Dr. Patrica Nathan Hemoglobin (Bld) [Mass/Vol] 14.6 g/dL Normal 14.0-18.0 [facility] Comment on above: Performed By: #### C BC #### [facility] [address] [place] [address] Dr. Patrica Nathan IG # 0.03 10e3/ul Normal 0.00-0.03 [facility] Comment on above: Performed By: #### C BC #### [facility] [address] [place] [address] Dr. Patrica Nathan IG % 0.5 % Normal 0.0-0.5 [facility] Comment on above: Performed By: #### C BC #### [facility] [address] [place] [address] Dr. Patrica Nathan LYMPH # 1.3 103/ul Normal 1.2-3.8 [facility] Comment on above: Performed By: #### C BC #### [facility] [address] [place] [address] Dr. Patrica Nathan Lymphocytes/100 WBC (Bld) 22.4 % Normal 20.5-60.0 [facility] Comment on above: Performed By: #### C BC #### [facility] [address] [place] [address] Dr. Patrica Nathan MANUAL DIFF REQ NO Normal [facility] Comment on above: Performed By: #### C BC #### [facility] [address] [place] [address] Dr. Patrica Nathan MCH (RBC) [Entitic mass] 29.4 pg Normal 25.9-34.0 [facility] Comment on above: Performed By: #### C BC #### [facility] [address] [place] [address] Dr. Patrica Nathan MCHC (RBC) [Mass/Vol] 34.7 g/dL Normal 29.9-35.2 [facility] Comment on above: Performed By: #### C BC #### [facility] [address] [place] [address] Dr. Patrica Nathan MCV (RBC) [Entitic vol] 84.9 fL Normal 80.0-94.0 [facility] Comment on above: Performed By: #### C BC #### [facility] [address] [place] [address] Dr. Patrica Nathan MONO # 0.6 103/ul Normal 0.3-0.8 [facility] Comment on above: Performed By: #### C BC #### [facility] [address] [place] [address] Dr. Patrica Nathan Monocytes/100 WBC (Bld) 9.9 % Normal 1.7-12.0 [facility] Comment on above: Performed By: #### C BC #### [facility] [address] [place] [address] Dr. Patrica Nathan NEUT # 3.9 103/ul Normal 1.4-6.5 [facility] Comment on above: Performed By: #### C BC #### [facility] [address] [place] [address] Dr. Patrica Nathan Neutrophils/100 WBC (Bld) 65.0 % Normal 43.0-75.0 [facility] Comment on above: Performed By: #### C BC #### [facility] [address] [place] [address] Dr. Patrica Nathan Platelet mean volume (Bld) [Entitic vol] 9.6 fL Normal 9.5-13.5 [facility] Comment on above: Performed By: #### C BC #### [facility] [address] [place] [address] Dr. Patrica Nathan PLT 170 103/ul Normal 150-450 [facility] Comment on above: Performed By: #### C BC #### [facility] [address] [place] [address] Dr. Patrica Nathan RBC 4.96 106/ul Normal 4.70-6.10 [facility] Comment on above: Performed By: #### C BC #### [facility] [address] [place] [address] Dr. Patrica Nathan WBC 6.0 103/ul Normal 4.0-11.0 [facility] Comment on above: Performed By: #### C BC #### [facility] [address] [place] [address] HEAD WO CONon [...] ANGELY KENNEDY Date: 2022-09-14 10:00 Normal [facility] PROF 14(COMP METB)on 023 Albumin [Mass/Vol] 3.7 g/dL Normal 3.4-5.0 [facility] Comment on above: Performed By: #### C JV HSTROPN #### [facility] [address] [place] [address] Dr. Patrica Nathan Albumin/Globulin [Mass ratio] 1.4 {ratio} Normal [facility] Comment on above: Performed By: #### C JV HSTROPN #### [facility] [address] [place] [address] [address] Patrica Nathan ALP [Catalytic activity/Vol] 83 U/L Normal 46-116 [facility] Comment on above: Performed By: #### C JV HSTROPN #### [facility] [address] [place] [address] [address] Patrica Nathan ALT [Catalytic activity/Vol] 57 U/L Normal 16-63 [facility] Comment on above: Performed By: #### C JV, HSTROPN #### [facility] [address] [place] [address] [address] Patrica Nathan Anion gap [Moles/Vol] 11.9 mmol/L Normal [facility] Comment on above: Performed By: #### C JV, HSTROPN #### [facility] [address] [place] [address] Dr. Patrica Nathan AST [Catalytic activity/Vol] 43 U/L Critically high 15-37 [facility] Comment on above: Performed By: #### C JV, HSTROPN #### [facility] [address] [place] [address] Dr. Patrica Nathan Bilirubin [Mass/Vol] 1.1 mg/dL Critically high 0.2-1.0 [facility] Comment on above: Performed By: #### C JV, HSTROPN #### [facility] [address] [place] [address] Dr. Patrica Nathan Calcium [Mass/Vol] 9.2 mg/dL Normal 8.5-10.1 [facility] Comment on above: Performed By: #### C JV, HSTROPN #### [facility] [address] [place] [address] Dr. Patrica Nathan Chloride [Moles/Vol] 106 mmol/L Normal 98-107 [facility] Comment on above: Performed By: #### C JV, HSTROPN #### [facility] [address] [place] [address] Dr. Patrica Nathan CO2 [Moles/Vol] 28.0 mmol/L Normal 21.0-32.0 [facility] Comment on above: Performed By: #### C JV, HSTROPN #### [facility] [address] [place] [address] Dr. Patrica Nathan Creatinine [Mass/Vol] 0.92 mg/dL Normal 0.70-1.30 [facility] Comment on above: Performed By: #### C MP, HSTROPN #### [facility] [address] [place] [address] [address] Patrica Nathan EGFR-AF TAIWANESE >60 Normal >=60 [facility] Comment on above: Performed By: #### C MP, HSTROPN #### [facility] [address] [place] [address] [address] Patrica Nathan EGFR-NON AF TAIWANESE >60 Normal >=60 [facility] Comment on above: Performed By: #### C MP, HSTROPN #### [facility] [address] [place] [address] [address] Patrica Nathan Globulin (S) [Mass/Vol] 2.7 g/dL Normal [facility] Comment on above: Performed By: #### C MP, HSTROPN #### [facility] [address] [place] [address] Dr. Patrica Nathan Glucose [Mass/Vol] 90 mg/dL Normal 74-106 [facility] Comment on above: Performed By: #### C MP, HSTROPN #### [facility] [address] [place] [address] [address] Patrica Nathan Potassium [Moles/Vol] 3.9 mmol/L Normal 3.5-5.1 [facility] Comment on above: Performed By: #### C MP, HSTROPN #### [facility] [address] [place] [address] [address] Patrica Nathan Protein [Mass/Vol] 6.4 g/dL Normal 6.4-8.2 [facility] Comment on above: Performed By: #### C MP, HSTROPN #### [facility] [address] [place] [address] [address] Patrica Nathan Sodium [Moles/Vol] 142 mmol/L Normal 136-145 [facility] Comment on above: Performed By: #### C MP, HSTROPN #### [facility] [address] [place] [address] [address] Patrica Nathan Urea nitrogen [Mass/Vol] 19.0 mg/dL Critically high 7.0-18.0 [facility] Comment on above: Performed By: #### C MP, HSTROPN #### [facility] [address] [place] [address] [address] Patrica Nathan Urea nitrogen/Creatinine [Mass ratio] 20.7 mg/mg Normal [facility] Comment on above: Performed By: #### C MP, HSTROPN #### [facility] [address] [place] [address] [address] Patrica Nathan TROPONIN, HIGH SENSITIVITYon 09-14-2022 HSTROP 5.8 pg/mL Normal 4.0-76.1 [facility] Comment on above: Result Comment: CUT- OFF POINTS HAVE BEEN ESTABLISHED BASED ON THE FOURTH UNIVERSAL DEFINITIONS OF MYOCARDIAL INFARCTION. THE UPPER REFERENCE LIMIT (URL) OF TROPONIN, DEFINED THE 99TH PERCENTILE OF cTnI DISTRIBUTION IN A REFERENCE POPULATION, HAS BEEN CONFIRMED THE DECISION THRESHOLD FOR [place] DIAGNOSIS. Performed By: #### C MP, HSTROPN #### [facility] [address] [place] [address] [address] Patrica Nathan XR CHEST 1 Von 09-14-2022 XR CHEST 1 V EXAM: XR CHEST 1 V HISTORY: Near syncope COMPARISON: None. TECHNIQUE: Single view of the chest FINDINGS: Heart size normal. No focal consolidation, pleural effusion, pulmonary congestion or pneumothorax. IMPRESSION: No acute findings. Electronically authenticated by: PASTORA DREW Date: 2022-09-14 10:01 Normal [facility] Alex 08-27-2022 L ------- Specimen: [id number] Received: 08/27/22 Status: MARIAH Gilmore Num: [id number] Spec Type: Surgical Subm Dr: Maryjane Christensen MD Tissues: A Gastric Biopsy (GASTRIC BX) B Colon Biopsy (ASCENDING POLYP) C Colon Biopsy (SIGMIOD POLYP) Procedures: HE/6, Gross/Micro L4/3, H PYLORI Age/ Patient Sex Location Account Attending Physician Yonatan Patel 77/M [id number] Alek Oliva MD SPEC NUM: [id number] RECD: 08/27/22 STATUS: MARIAH REMarquita NUM: [id number] EVE: 08/27/22- SUBM DR: Maryjane Christensen MD ENTERED: 08/27/22 [facility] DR: BRITTANIE TYPE: Surgical DEPT: S ORDERED: HE/6, Gross/Micro L4/3, H PYLORI ORDERED: HE/6, Gross/Micro L4/3, H PYLORI Supplemental Report Addendum 1 Entered: 08/28/22-1553 A. Immunohistochemical stain for Helicobacter Pylori is POSITIVE. Addendum Signed (signature on file) Aaliyah Beard MD 08/28/22 6148 Pathological Diagnosis A. Stomach, gastric, biopsy: - Moderate chronic active gastritis. - Positive for Helicobacter pylori like organisms on H E stain. COMMENT: Confirmatory Helicobacter pylori immunohistochemical stain is being performed, an addendum report will be issued on completion. B. Colon, ascending, polypectomy: - Tubular adenoma. Specimen: [id number] Received: 08/27/22 Status: MARIAH Gilmore Num: [id number] Spec Type: Surgical Subm Dr: Maryjane Christensen MD Tissues: A Gastric Biopsy (GASTRIC BX) B Colon Biopsy (ASCENDING POLYP) C Colon Biopsy (SIGMIOD POLYP) Procedures: HE/6, Gross/Micro L4/3, H PYLORI Patient: Yonatan Patel [id number] (Continued) Specimen: [id number] Received: 08/27/22 (Continued) Pathological Diagnosis (Continued) Signed (signature on file) Aaliyah Beard MD 08/28/22 1236 Specimen: Received: 08/27/22 Status: MARIAH Gilmore Num: [id number] Spec Type: Surgical Subm Dr: Maryjane Christensen MD Tissues: A Gastric Biopsy (GASTRIC BX) B Colon Biopsy (ASCENDING POLYP) C Colon Biopsy (SIGMIOD POLYP) Procedures: HE/6, Gross/Micro L4/3, H PYLORI Patient: Yonatan Patel [id number] (Continued) Specimen: S2 Received: 08/27/22 (Continued) Pathological [...] support the above pathologic diagnosis. CPT Codes 83579?3 Specimen: [id number] Received: 08/27/22 Status: MARIAH Mando Num: [id number] Spec Type: Surgical Subm Dr: Maryjane Christensen MD Tissues: A Gastric Biopsy (GASTRIC BX) B Colon Biopsy (ASCENDING POLYP) C Colon Biopsy (SIGMIOD POLYP) Procedures: HE/6, Gross/Micro L4/3, H PYLORI --------- (more content not included)... Normal [facility] MRI BRAIN WO CONon 2 MRI BRAIN [...] by: BERHANE HERNANDEZ Date: 2022-07-29 08:42 Normal [facility] LIPID PROFILEon 07-28-2022 CHOL-HDL RATIO NORM SEE BELOW Normal [facility] Comment on above: Result Comment: 3.3 - 4.4 LOW RISK 4.4 - 7.1 AVERAGE RISK 7.1 - 11.0 MODERATE RISK >11.0 HIGH RISK Performed By: #### C JV HSTROPN #### [facility] [address] [place] [address] [address] Patrica Nathan Cholesterol [Mass/Vol] 97 mg/dL Normal <=200 [facility] Comment on above: Performed By: #### C JV HSTROPN #### [facility] [address] [place], [place] [address] Dr. Patrica Nathan Cholesterol in HDL [Mass/Vol] 40 mg/dL Normal 40-60 [facility] Comment on above: Performed By: #### C JV HSTROPN #### [facility] [address] [place], [place] [address] Dr. Patrica Nathan Cholesterol in LDL [Mass/Vol] 31.8 mg/dL Normal [facility] Comment on above: Performed By: #### C MP, HSTROPN #### [facility] [address] [place] [address] [address] Patrica Nathan Cholesterol.total/Chol esterol in HDL [Mass ratio] 2.4 {ratio} Normal [facility] [facility] Comment on above: Performed By: #### C MP, HSTROPN #### [facility] [address] [address] [address] Patrica Nathan HDL NORMAL > or = 60 mg/dl - LO W CARDIOVASCULAR RISK <40 mg/dl - HIGH CARDIOVASCULAR RISK Normal [facility] Comment on above: Performed By: #### C MP, HSTROPN #### [facility] [address] [place] [address] Dr. Patrica Nathan LDL CALC NORMAL SEE BELOW Normal [facility] Comment on above: Result Comment: <100 mg/dl OPTIMAL 100 - 129 mg/dl NEAR OR ABOVE OPTIMAL 130 - 159 mg/dl BORDERLINE HIGH 160 - 189 mg/dl HIGH >190 mg/dl VERY HIGH Performed By: #### C MP, HSTROPN #### [facility] [address] [place] [address] Dr. Patrica Nathan Triglyceride [Mass/Vol] 126 mg/dL Normal <=150 [facility] Comment on above: Performed By: #### C JV, HSTROPN #### [facility] [address] [place] [address] Dr. Patrica Nathan VLDL CALC 25.2 mg/dL Normal [facility] Comment on above: Performed By: #### C MP, HSTROPN #### [facility] [address] [address] [address] Patrica Nathan CBC AUTO DIFFon 07-01-2022 BASO # 0.0 103/ul Normal 0.0-0.1 [facility] Comment on above: Performed By: #### C BC #### [facility] [address] [place] [address] Dr. Patrica aNthan Basophils/100 WBC (Bld) 0.5 % Normal 0.2-2.0 [facility] Comment on above: Performed By: #### C BC #### [facility] [address] [place] [address] Dr. Patrica Nathan EO # 0.1 103/ul Normal 0.0-0.7 [facility] Comment on above: Performed By: #### C BC #### [facility] [address] [place] [address] Dr. Patrica Nathan Eosinophils/100 WBC (Bld) 2.2 % Normal 0.9-7.0 [facility] Comment on above: Performed By: #### C BC #### [facility] [address] [place] [address] Dr. Patrica Nathan Erythrocyte distribution width (RBC) [Ratio] 14.3 % Normal 11.0-15.0 [facility] Comment on above: Performed By: #### C BC #### [facility] [address] [place] [address] Dr. Patrica Nathan Hematocrit (Bld) [Volume fraction] 45.8 % Normal 42.0-54.0 [facility] Comment on above: Performed By: #### C BC #### [facility] [address] [place] [address] Dr. Patrica Nathan Hemoglobin (Bld) [Mass/Vol] 15.1 g/dL Normal 14.0-18.0 [facility] Comment on above: Performed By: #### C BC #### [facility] [address] [place] [address] Dr. Patrica Nathan IG # 0.01 10e3/ul Normal 0.00-0.03 [facility] Comment on above: Performed By: #### C BC #### [facility] [address] [place] [address] Dr. Patrica Nathan IG % 0.2 % Normal 0.0-0.5 [facility] Comment on above: Performed By: #### C BC #### [facility] [address] [place] [address] Dr. Patrica Nathan LYMPH # 1.4 103/ul Normal 1.2-3.8 [facility] Comment on above: Performed By: #### C BC #### [facility] [address] [place] [address] Dr. Patrica Nathan Lymphocytes/100 WBC (Bld) 24.0 % Normal 20.5-60.0 [facility] Comment on above: Performed By: #### C BC #### [facility] [address] [place] [address] Dr. Patrica Nathan MANUAL DIFF REQ NO Normal [facility] Comment on above: Performed By: #### C BC #### [facility] [address] [place] [address] Dr. Patrica Nathan MCH (RBC) [Entitic mass] 29.4 pg Normal 25.9-34.0 [facility] Comment on above: Performed By: #### C BC #### [facility] [address] [place] [address] Dr. Patrica Nathan MCHC (RBC) [Mass/Vol] 33.0 g/dL Normal 29.9-35.2 [facility] Comment on above: Performed By: #### C BC #### [facility] [address] [place] [address] Dr. Patrica Nathan MCV (RBC) [Entitic vol] 89.3 fL Normal 80.0-94.0 [facility] Comment on above: Performed By: #### C BC #### [facility] [address] [place] [address] Dr. Patrica Nathan MONO # 0.6 103/ul Normal 0.3-0.8 [facility] Comment on above: Performed By: #### C BC #### [facility] [address] [place] [address] Dr. Patrica Nathan Monocytes/100 WBC (Bld) 10.8 % Normal 1.7-12.0 [facility] Comment on above: Performed By: #### C BC #### [facility] [address] [place] [address] Dr. Patrica Nathan NEUT # 3.7 103/ul Normal 1.4-6.5 [facility] Comment on above: Performed By: #### C BC #### [facility] [address] [place] [address] Dr. Patrica Nathan Neutrophils/100 WBC (Bld) 62.3 % Normal 43.0-75.0 [facility] Comment on above: Performed By: #### C BC #### [facility] [address] [address] [address] Patrica Nathan Platelet mean volume (Bld) [Entitic vol] 9.7 fL Normal 9.5-13.5 [facility] Comment on above: Performed By: #### C BC #### [facility] [address] [address] [address] Patrica Nathan PLT 192 103/ul Normal 150-450 [facility] Comment on above: Performed By: #### C BC #### [facility] [address] [address] [address] Patrica Nathan RBC 5.13 106/ul Normal 4.70-6.10 [facility] Comment on above: Performed By: #### C BC #### [facility] [address] [address] [address] Patrica Nathan WBC 6.0 103/ul Normal 4.0-11.0 [facility] Comment on above: Performed By: #### C BC #### [facility] [address] [place] [address] CHEST WO CONon [...] EVGENY MCCLAIN Date: 2022-07-01 07:16 Normal [facility] PROF 14(COMP METB)on 022 Albumin [Mass/Vol] 4.0 g/dL Normal 3.4-5.0 [facility] Comment on above: Performed By: #### C MP, HSTROPN #### [facility] [address] [address] [address] Patrica Nathan Albumin/Globulin [Mass ratio] 1.2 {ratio} Normal [facility] Comment on above: Performed By: #### C MP, HSTROPN #### [facility] [address] [address] [address] Patrica Nathan ALP [Catalytic activity/Vol] 80 U/L Normal 46-116 [facility] Comment on above: Performed By: #### C MP, HSTROPN #### [facility] [address] [address] [address] Patrica Nathan ALT [Catalytic activity/Vol] 30 U/L Normal 16-63 [facility] Comment on above: Performed By: #### C MP, HSTROPN #### [facility] [address] [address] [address] Patrica Nathan Anion gap [Moles/Vol] 8.5 mmol/L Normal [facility] Comment on above: Performed By: #### C MP, HSTROPN #### [facility] [address] [address] [address] Patrica Nathan AST [Catalytic activity/Vol] 26 U/L Normal 15-37 [facility] Comment on above: Performed By: #### C MP, HSTROPN #### [facility] [address] [address] [address] Patrica Nathan Bilirubin [Mass/Vol] 1.4 mg/dL Critically high 0.2-1.0 [facility] Comment on above: Performed By: #### C MP, HSTROPN #### [facility] [address] [address] [address] Patrica Nathan Calcium [Mass/Vol] 9.8 mg/dL Normal 8.5-10.1 [facility] Comment on above: Performed By: #### C MP, HSTROPN #### [facility] [address] [address] [address] Patrica Nathan Chloride [Moles/Vol] 104 mmol/L Normal 98-107 [facility] Comment on above: Performed By: #### C MP, HSTROPN #### [facility] [address] [address] [address] Patrica Nathan CO2 [Moles/Vol] 30.8 mmol/L Normal 21.0-32.0 [facility] Comment on above: Performed By: #### C MP, HSTROPN #### [facility] [address] [place] [address] Dr. Patrica Nathan Creatinine [Mass/Vol] 0.97 mg/dL Normal 0.70-1.30 [facility] Comment on above: Performed By: #### C MP, HSTROPN #### [facility] [address] [place] [address] Dr. Patrica Nathan EGFR-AF TAIWANESE >60 Normal >=60 [facility] Comment on above: Performed By: #### C MP, HSTROPN #### [facility] [address] [place] [address] Dr. Patrica Nathan EGFR-NON AF TAIWANESE >60 Normal >=60 [facility] Comment on above: Performed By: #### C MP, HSTROPN #### [facility] [address] [address] [address] Patrica Nathan Globulin (S) [Mass/Vol] 3.4 g/dL Normal [facility] Comment on above: Performed By: #### C MP, HSTROPN #### [facility] [address] [address] [address] Patrica Nathan Glucose [Mass/Vol] 110 mg/dL Critically high 74-106 T [facility] Comment on above: Performed By: #### C MP, HSTROPN #### [facility] [address] [place] [address] Dr. Patrica Nathan Potassium [Moles/Vol] 4.3 mmol/L Normal 3.5-5.1 [facility] Comment on above: Performed By: #### C MP, HSTROPN #### [facility] [address] [place] [address] Dr. Patrica Nathan Protein [Mass/Vol] 7.4 g/dL Normal 6.4-8.2 [facility] Comment on above: Performed By: #### C JV, HSTROPN #### [facility] [address] [place] [address] Dr. Patrica Nathan Sodium [Moles/Vol] 139 mmol/L Normal 136-145 [facility] Comment on above: Performed By: #### C MP, HSTROPN #### [facility] [address] [place] [address] Dr. Patrica Nathan Urea nitrogen [Mass/Vol] 15.0 mg/dL Normal 7.0-18.0 [facility] Comment on above: Performed By: #### C JV, HSTROPN #### [facility] [address] [place] [address] Dr. Patrica Nathan Urea nitrogen/Creatinine [Mass ratio] 15.5 mg/mg Normal [facility] Comment on above: Performed By: #### C MP, HSTROPN #### [facility] [address] [place] [address] Dr. Patrica Nathan PROTIMEon 07-01-2022 INR Coag (PPP) [Relative time] 0.95 {INR} Normal [facility] Comment on above: Performed By: #### P T, PTT #### [facility] [address] [place] [address] Dr. Patrica Nathan INR GUIDELINES SEE BELOW Normal [facility] Comment on above: Result Comment: ODALIS RED INR: 2.0 - 3.0 CONDITIONS NOT LISTED BELOW 2.5 - 3.5 FOR PROSTHETIC HEART VALVE REPLACEMENT 2.5 - 3.5 RECURRENT THROMBOSIS Performed By: #### P T, PTT #### [facility] [address] [address] [address] Patrica Nathan PT Coag (PPP) [Time] 10.3 s Normal 9.0-11.6 [facility] Comment on above: Performed By: #### P T, PTT #### [facility] [address] [address] [address] Patrica Nathan PTTon 07-01-2022 aPTT Coag (Bld) [Time] 27.1 s Normal 22.3-36.2 [facility] Comment on above: Performed By: #### C MP, HSTROPN #### [facility] [address] [address] [address] Patrica Nathan XR CHEST 1 Von [...] ANGELY REYNOLDS Date: 2022-07-01 06:33 Normal [facility] CT CHEST WO CONon 06-29-2022 CT CHEST [...] by: BERHANE HERNANDEZ Date: 2022-06-29 16:01 Normal [facility] XR RIBS RT PA Estella [...] by: FABRICE WEST Date: 2022-06-29 15:08 Normal [facility] CBC AUTO DIFFon 05-02-2022 BASO # 0.1 103/ul Normal 0.0-0.1 [facility] Comment on above: Performed By: #### C BC #### [facility] [address] [place] [address] Dr. Patrica Nathan Basophils/100 WBC (Bld) 0.8 % Normal 0.2-2.0 [facility] Comment on above: Performed By: #### C BC #### [facility] [address] [place] [address] Dr. Patrica Nathan EO # 0.1 103/ul Normal 0.0-0.7 [facility] Comment on above: Performed By: #### C BC #### [facility] [address] [place] [address] Dr. Patrica Nathan Eosinophils/100 WBC (Bld) 1.7 % Normal 0.9-7.0 [facility] Comment on above: Performed By: #### C BC #### [facility] [address] [place] [address] Dr. Patrica Nathan Erythrocyte distribution width (RBC) [Ratio] 14.5 % Normal 11.0-15.0 [facility] Comment on above: Performed By: #### C BC #### [facility] [address] [place] [address] Dr. Patrica Nathan Hematocrit (Bld) [Volume fraction] 45.6 % Normal 42.0-54.0 [facility] Comment on above: Performed By: #### C BC #### [facility] [address] [place] [address] Dr. Patrica Nathan Hemoglobin (Bld) [Mass/Vol] 15.3 g/dL Normal 14.0-18.0 [facility] Comment on above: Performed By: #### C BC #### [facility] [address] [place] [address] Dr. Patrica Nathan IG # 0.02 10e3/ul Normal 0.00-0.03 [facility] Comment on above: Performed By: #### C BC #### [facility] [address] [place] [address] Dr. Patrica Nathan IG % 0.3 % Normal 0.0-0.5 [facility] Comment on above: Performed By: #### C BC #### [facility] [address] [place] [address] Dr. Patrica Nathan LYMPH # 1.6 103/ul Normal 1.2-3.8 [facility] Comment on above: Performed By: #### C BC #### [facility] [address] [place] [address] Dr. Patrica Nathan Lymphocytes/100 WBC (Bld) 27.0 % Normal 20.5-60.0 [facility] Comment on above: Performed By: #### C BC #### [facility] [address] [place] [address] Dr. Patrica Nathan MANUAL DIFF REQ NO Normal [facility] Comment on above: Performed By: #### C BC #### [facility] [address] [place] [address] Dr. Patrica Nathan MCH (RBC) [Entitic mass] 29.9 pg Normal 25.9-34.0 [facility] Comment on above: Performed By: #### C BC #### [facility] [address] [place] [address] Dr. Patrica Nathan MCHC (RBC) [Mass/Vol] 33.6 g/dL Normal 29.9-35.2 [facility] Comment on above: Performed By: #### C BC #### [facility] [address] [place] [address] Dr. Patrica Nathan MCV (RBC) [Entitic vol] 89.1 fL Normal 80.0-94.0 [facility] Comment on above: Performed By: #### C BC #### [facility] [address] [place] [address] Dr. Patrica Nathan MONO # 0.6 103/ul Normal 0.3-0.8 [facility] Comment on above: Performed By: #### C BC #### [facility] [address] [place] [address] Dr. Patrica Nathan Monocytes/100 WBC (Bld) 9.8 % Normal 1.7-12.0 [facility] Comment on above: Performed By: #### C BC #### [facility] [address] [place] [address] Dr. Patrica Nathan NEUT # 3.6 103/ul Normal 1.4-6.5 [facility] Comment on above: Performed By: #### C BC #### [facility] [address] [address] [address] Patrica Nathan Neutrophils/100 WBC (Bld) 60.4 % Normal 43.0-75.0 [facility] Comment on above: Performed By: #### C BC #### [facility] [address] [address] [address] Patrica Nathan Platelet mean volume (Bld) [Entitic vol] 9.3 fL Critically low 9.5-13.5 [facility] Comment on above: Performed By: #### C BC #### [facility] [address] [place] [address] Dr. Patrica Nathan PLT 183 103/ul Normal 150-450 [facility] Comment on above: Performed By: #### C BC #### [facility] [address] [place] [address] Dr. Patrica Nathan RBC 5.12 106/ul Normal 4.70-6.10 [facility] Comment on above: Performed By: #### C BC #### [facility] [id number] Patrica Nathan WBC 6.0 103/ul Normal 4.0-11.0 [facility] Comment on above: Performed By: #### C BC #### [facility] [address] [place] [address] ABD/PELV WO W [...] EVGENY MCCLAIN Date: 2022-05-02 10:56 Normal [facility] PROF 14(COMP METB)on 022 Albumin [Mass/Vol] 4.1 g/dL Normal 3.4-5.0 [facility] Comment on above: Performed By: #### C JV, HSTROPN #### [facility] [address] [address] [address] Patrica Nathan Albumin/Globulin [Mass ratio] 1.4 {ratio} Normal [facility] Comment on above: Performed By: #### C JV, HSTROPN #### [facility] [address] [address] [address] Patrica Nathan ALP [Catalytic activity/Vol] 71 U/L Normal 46-116 [facility] Comment on above: Performed By: #### C JV, HSTROPN #### [facility] [address] [address] [address] Patrica Nathan ALT [Catalytic activity/Vol] 48 U/L Normal 16-63 [facility] Comment on above: Performed By: #### C JV, HSTROPN #### [facility] [address] [address] [address] Patrica Nathan Anion gap [Moles/Vol] 8.1 mmol/L Normal [facility] Comment on above: Performed By: #### C MP, HSTROPN #### [facility] [address] [address] [address] Patrica Nathan AST [Catalytic activity/Vol] 31 U/L Normal 15-37 [facility] Comment on above: Performed By: #### C MP, HSTROPN #### [facility] [address] [place] [address] Dr. Patrica Nathan Bilirubin [Mass/Vol] 1.6 mg/dL Critically high 0.2-1.0 [facility] Comment on above: Performed By: #### C MP, HSTROPN #### [facility] [address] [place] [address] Dr. Patrica Nathan Calcium [Mass/Vol] 9.4 mg/dL Normal 8.5-10.1 [facility] Comment on above: Performed By: #### C MP, HSTROPN #### [facility] [address] [place] [address] Dr. Patrica Nathan Chloride [Moles/Vol] 105 mmol/L Normal 98-107 [facility] Comment on above: Performed By: #### C JV, HSTROPN #### [facility] [address] [place] [address] Dr. Patrica Nathan CO2 [Moles/Vol] 29.0 mmol/L Normal 21.0-32.0 [facility] Comment on above: Performed By: #### C MP, HSTROPN #### [facility] [address] [place] [address] Dr. Patrica Nathan Creatinine [Mass/Vol] 1.01 mg/dL Normal 0.70-1.30 [facility] Comment on above: Performed By: #### C MP, HSTROPN #### [facility] [address] [place] [address] Dr. Patrica Nathan EGFR-AF TAIWANESE >60 Normal >=60 [facility] Comment on above: Performed By: #### C MP, HSTROPN #### [facility] [address] [place] [address] Dr. Patrica Nathan EGFR-NON AF TAIWANESE >60 Normal >=60 [facility] Comment on above: Performed By: #### C MP, HSTROPN #### [facility] [address] [place] [address] Dr. Patrica Nathan Globulin (S) [Mass/Vol] 2.9 g/dL Normal [facility] Comment on above: Performed By: #### C MP, HSTROPN #### [facility] [address] [place] [address] Dr. Patrica Nathan Glucose [Mass/Vol] 106 mg/dL Normal 74-106 [facility] Comment on above: Performed By: #### C JV, HSTROPN #### [facility] [address] [place] [address] Dr. Patrica Nathan Potassium [Moles/Vol] 4.1 mmol/L Normal 3.5-5.1 [facility] Comment on above: Performed By: #### C JV, HSTROPN #### [facility] [address] [place] [address] Dr. Patrica Nathan Protein [Mass/Vol] 7.0 g/dL Normal 6.4-8.2 [facility] Comment on above: Performed By: #### C JV, HSTROPN #### [facility] [address] [place] [address] Dr. Patrica Nathan Sodium [Moles/Vol] 138 mmol/L Normal 136-145 [facility] Comment on above: Performed By: #### C MP, HSTROPN #### [facility] [address] [place] [address] Dr. Patrica Nathan Urea nitrogen [Mass/Vol] 18.0 mg/dL Normal 7.0-18.0 [facility] Comment on above: Performed By: #### C MP, HSTROPN #### [facility] [address] [place] [address] Dr. Patrica Nathan Urea nitrogen/Creatinine [Mass ratio] 17.8 mg/mg Normal [facility] Comment on above: Performed By: #### C MP, HSTROPN #### [facility] [address], [place] [address] Dr. Patrica Nathan TSHon 05-02-2022 TSH 2.409 uIU/mL Normal 0.358-3.74 0 [facility] Comment on above: Performed By: #### T SH #### [facility] [address] [place], [place] [address] Dr. Patrica Nathan XR CHEST 2 Von [...] EVGENY MCCLAIN Date: 2022-05-02 07:44 Normal [facility] Covid-19 PCR (CVDTBH)on 01-16 SARS-CoV-2 (COVID-19) RNA MARIANNE+probe Ql (Unsp spec) Not detected Normal NOT DETECTED [facility] Comment on above: Result Comment: This test is not yet approved or cleared by the [place] FDA. When there are no FDA-approved or cleared tests available, and other criteria are met, FDA can make tests available under an emergency access mechanism called an Emergency Use Authorization (EUA). The EUA for this test is supported by the [employer] of Health and Human Service's (HHS's) declaration [...] SARS-CoV-2. Performed By: #### C VDTBH #### [facility] [address] [address] [address] Patrica Nathan Vital Signs Date Time Vital Sign Value Performing Clinician Facility 01-26-2025 08:40-0400 Body height 187.96 cm [facility] 01-26-2025 08:40-0400 Body mass index (BMI) [Ratio] 22.8 kg/m2 [facility] 01-26-2025 08:40-0400 Body weight 80.9 kg [facility] 01-26-2025 08:40-0400 Diastolic blood pressure 73 mm[Hg] [facility] 01-26-2025 08:40-0400 Heart rate 62 /min [facility] 01-26-2025 08:40-0400 Respiratory rate 12 /min [facility] 01-26-2025 08:40-0400 Systolic blood pressure 126 mm[Hg] [facility] 01-03-2025 14:37-0400 Body height 187.96 cm [facility] 01-03-2025 14:37-0400 Body mass index (BMI) [Ratio] 23 kg/m2 [facility] 01-03-2025 14:37-0400 Body weight 81.41 kg [facility] 01-03-2025 14:37-0400 Diastolic blood pressure 64 mm[Hg] [facility] 01-03-2025 14:37-0400 Heart rate 78 /min [facility] 01-03-2025 14:37-0400 Respiratory rate 12 /min [facility] 01-03-2025 14:37-0400 Systolic blood pressure 158 mm[Hg] [facility] 12-28-2024 08:34-0400 Body height 187.96 [facility] [facility] 12-28-2024 08:34-0400 Body mass index (BMI) [Ratio] 23 kg/m2 [facility] 12-28-2024 08:34-0400 Body weight 81.36 kg [facility] 12-28-2024 08:34-0400 Diastolic blood pressure 62 mm[Hg] [facility] 12-28-2024 08:34-0400 Heart rate 64 /min [facility] 12-28-2024 08:34-0400 Respiratory rate 12 /min [facility] 12-28-2024 08:34-0400 Systolic blood pressure 111 mm[Hg] [facility] 12-12-2024 14:49-0400 Body height 187.96 cm [facility] 12-12-2024 14:49-0400 Body mass index (BMI) [Ratio] 23 kg/m2 [facility] 12-12-2024 14:49-0400 Body weight 81.24 kg [facility] 12-12-2024 14:49-0400 Diastolic blood pressure 72 mm[Hg] [facility] 12-12-2024 14:49-0400 Heart rate 79 /min [facility] 12-12-2024 14:49-0400 Respiratory rate 12 /min [facility] 12-12-2024 14:49-0400 Systolic blood pressure 153 mm[Hg] [facility] 11-15-2024 14:58-0400 Body height 187.96 cm [facility] 11-15-2024 14:58-0400 Body mass index (BMI) [Ratio] 23.5 kg/m2 [facility] 11-15-2024 14:58-0400 Body weight 83 kg [facility] 11-15-2024 14:58-0400 Diastolic blood pressure 68 mm[Hg] [facility] 11-15-2024 14:58-0400 Heart rate 69 /min [facility] 11-15-2024 14:58-0400 Respiratory rate 12 /min [facility] 11-15-2024 14:58-0400 Systolic blood pressure 150 mm[Hg] [facility] 10-28-2024 12:20-0400 Body height 187.96 cm [facility] 10-28-2024 12:20-0400 Body mass index (BMI) [Ratio] 23.1 kg/m2 [facility] 10-28-2024 12:20-0400 Body weight 81.87 kg [facility] 10-28-2024 12:20-0400 Diastolic blood pressure 81 mm[Hg] [facility] 10-28-2024 12:20-0400 Heart rate 59 /min [facility] 10-28-2024 12:20-0400 Respiratory rate 12 /min [facility] 10-28-2024 12:20-0400 Systolic blood pressure 147 mm[Hg] [facility] 09-21-2024 09:47-0500 Body height 187.96 cm [facility] 09-21-2024 09:47-0500 Body mass index (BMI) [Ratio] 23.3 kg/m2 [facility] 09-21-2024 09:47-0500 Body weight 82.55 kg [facility] 09-21-2024 09:47-0500 Diastolic blood pressure 71 mm[Hg] [facility] 09-21-2024 09:47-0500 Heart rate 61 /min [facility] 09-21-2024 09:47-0500 Respiratory rate 12 /min [facility] 09-21-2024 09:47-0500 Systolic blood pressure 124 mm[Hg] [facility] 09-14-2024 08:28-0500 Body height 187.96 cm [facility] 09-14-2024 08:28-0500 Body mass index (BMI) [Ratio] 23.2 kg/m2 [facility] 09-14-2024 08:28-0500 Body weight 82.15 kg [facility] 09-14-2024 08:28-0500 Diastolic blood pressure 61 mm[Hg] [facility] 09-14-2024 08:28-0500 Heart rate 55 /min [facility] 09-14-2024 08:28-0500 Respiratory rate 12 /min [facility] 09-14-2024 08:28-0500 Systolic blood pressure 106 mm[Hg] [facility] 09-07-2024 09:24-0500 Body height 187.96 cm [facility] 09-07-2024 09:24-0500 Body mass index (BMI) [Ratio] 23.1 kg/m2 [facility] 09-07-2024 09:24-0500 Body weight 81.87 kg [facility] 09-07-2024 09:24-0500 Diastolic blood pressure 65 mm[Hg] [facility] 09-07-2024 09:24-0500 Heart rate 64 /min [facility] 09-07-2024 09:24-0500 Respiratory rate 12 /min [facility] 09-07-2024 09:24-0500 Systolic blood pressure 127 mm[Hg] [facility] 09-01-2024 08:53-0500 Body height 187.96 cm [facility] 09-01-2024 08:53-0500 Body mass index (BMI) [Ratio] 23.1 kg/m2 [facility] 09-01-2024 08:53-0500 Body weight 81.87 kg [facility] 09-01-2024 08:53-0500 Diastolic blood pressure 57 mm[Hg] [facility] 09-01-2024 08:53-0500 Heart rate 69 /min [facility] 09-01-2024 08:53-0500 Respiratory rate 12 /min [facility] 09-01-2024 08:53-0500 Systolic blood pressure 116 mm[Hg] [facility] 07-11-2024 11:39-0500 Body height 187.96 cm [facility] 07-11-2024 11:39-0500 Body mass index (BMI) [Ratio] 23.3 kg/m2 [facility] 07-11-2024 11:39-0500 Body weight 82.27 kg [facility] 07-11-2024 11:39-0500 Diastolic blood pressure 72 mm[Hg] [facility] 07-11-2024 11:39-0500 Heart rate 68 /min [facility] 07-11-2024 11:39-0500 Respiratory rate 12 /min [facility] 07-11-2024 11:39-0500 Systolic blood pressure 144 mm[Hg] [facility] 05-04-2024 09:12-0400 Body height 187.96 cm [facility] 05-04-2024 09:12-0400 Body mass index (BMI) [Ratio] 23.1 kg/m2 [facility] 05-04-2024 09:12-0400 Body weight 81.76 kg [facility] 05-04-2024 09:12-0400 Diastolic blood pressure 66 mm[Hg] [facility] 05-04-2024 09:12-0400 Heart rate 56 /min [facility] 05-04-2024 09:12-0400 Respiratory rate 12 /min [facility] 05-04-2024 09:12-0400 Systolic blood pressure 132 mm[Hg] [facility] 03-19-2024 09:03-0400 Body height 187.96 cm [facility] 03-19-2024 09:03-0400 Body mass index (BMI) [Ratio] 23.1 kg/m2 [facility] 03-19-2024 09:03-0400 Body temperature 99.8 [degF] [facility] 03-19-2024 09:03-0400 Body weight 81.76 kg [facility] 03-19-2024 09:03-0400 Diastolic blood pressure 63 mm[Hg] [facility] 03-19-2024 09:03-0400 Heart rate 73 /min [facility] 03-19-2024 09:03-0400 SaO2% (BldA) [Mass fraction] 97 % [facility] 03-19-2024 09:03-0400 Systolic blood pressure 118 mm[Hg] [facility] 03-14-2024 10:10-0400 Body height 187.96 cm [facility] 03-14-2024 10:10-0400 Body mass index (BMI) [Ratio] 23.4 kg/m2 [facility] 03-14-2024 10:10-0400 Body weight 82.78 kg [facility] 03-14-2024 10:10-0400 Diastolic blood pressure 80 mm[Hg] [facility] 03-14-2024 10:10-0400 Heart rate 58 /min [facility] 03-14-2024 10:10-0400 Respiratory rate 12 /min [facility] 03-14-2024 10:10-0400 Systolic blood pressure 135 mm[Hg] [facility] 01-28-2024 09:07-0400 Body height 187.96 cm [facility] 01-28-2024 09:07-0400 Body mass index (BMI) [Ratio] 23.4 kg/m2 [facility] 01-28-2024 09:07-0400 Body weight 82.72 kg [facility] 01-28-2024 09:07-0400 Diastolic blood pressure 76 mm[Hg] [facility] 01-28-2024 09:07-0400 Heart rate 58 /min [facility] 01-28-2024 09:07-0400 Respiratory rate 12 /min [facility] 01-28-2024 09:07-0400 Systolic blood pressure 138 mm[Hg] [facility] 11-27-2023 08:33-0400 Body height 187.96 cm [facility] 11-27-2023 08:33-0400 Body mass index (BMI) [Ratio] 23.1 kg/m2 [facility] 11-27-2023 08:33-0400 Body weight 81.7 kg [facility] 11-27-2023 08:33-0400 Diastolic blood pressure 61 mm[Hg] [facility] 11-27-2023 08:33-0400 Heart rate 63 /min [facility] 11-27-2023 08:33-0400 Respiratory rate 12 /min [facility] 11-27-2023 08:33-0400 Systolic blood pressure 114 mm[Hg] [facility] 11-06-2023 15:24-0400 Body height 187.96 cm [facility] 11-06-2023 15:24-0400 Body mass index (BMI) [Ratio] 23.1 kg/m2 [facility] 11-06-2023 15:24-0400 Body weight 81.64 kg [facility] 11-06-2023 15:24-0400 Diastolic blood pressure 64 mm[Hg] [facility] 11-06-2023 15:24-0400 Heart rate 65 /min [facility] 11-06-2023 15:24-0400 Respiratory rate 12 /min [facility] 11-06-2023 15:24-0400 Systolic blood pressure 134 mm[Hg] [facility] 10-28-2023 11:01-0400 Body height 187.96 cm [facility] 10-28-2023 11:01-0400 Body mass index (BMI) [Ratio] 23.2 kg/m2 [facility] 10-28-2023 11:01-0400 Body weight 82.21 kg [facility] 10-28-2023 11:01-0400 Diastolic blood pressure 77 mm[Hg] [facility] 10-28-2023 11:01-0400 Heart rate 59 /min [facility] 10-28-2023 11:01-0400 Respiratory rate 12 /min [facility] 10-28-2023 11:01-0400 Systolic blood pressure 144 mm[Hg] [facility] 09-15-2023 16:00-0500 Body height 187.96 cm Cisco Ball Other [facility] 09-15-2023 16:00-0500 Body mass index (BMI) [Ratio] 23.75 kg/m2 Cisco Ball Other [facility] Other 09-15-2023 16:00-0500 Body weight 83.92 kg Cisco Ball Other [facility] Other 09-15-2023 16:00-0500 Body weight 83.91 kg [facility] 09-15-2023 16:00-0500 Diastolic blood pressure 73 mm[Hg] Cisco Ball Other [facility] 09-15-2023 16:00-0500 Respiratory rate 12 /min Cisco Ball Other [facility] Other 09-15-2023 16:00-0500 Systolic blood pressure 158 mm[Hg] Cisco Ball Other [facility] 08-28-2023 10:00-0500 Body height 187.96 cm Cisco Ball Other [facility] 08-28-2023 10:00-0500 Body mass index (BMI) [Ratio] 23.42 kg/m2 Cisco Ball Other [facility] Other 08-28-2023 10:00-0500 Body weight 82.74 kg Cisco Ball Other [facility] Other 08-28-2023 10:00-0500 Body weight 82.73 kg [facility] 08-28-2023 10:00-0500 Diastolic blood pressure 66 mm[Hg] Cisco Ball Other [facility] 08-28-2023 10:00-0500 Respiratory rate 12 /min Cisco Ball Other [facility] Other 08-28-2023 10:00-0500 Systolic blood pressure 117 mm[Hg] Cisco Ball Other [facility] 07-28-2023 13:13-0500 Blood Pressure Location [facility]ely N[facility] 07-28-2023 13:13-0500 Diastolic blood pressure 72 mm[Hg] Angely N[facility] 07-28-2023 13:13-0500 Heart rate 72 /min [facility] 07-28-2023 13:13-0500 Respiratory rate 16 /min [facility] 07-28-2023 13:13-0500 Systolic blood pressure 118 mm[Hg] Angely NILL [facility] 07-01-2023 10:15-0500 Body height 187.96 cm Cisco Ball Other [facility] Other 07-01-2023 10:15-0500 Body mass index (BMI) [Ratio] 23.13 kg/m2 Cisco Ball Other [facility] Other 07-01-2023 10:15-0500 Body weight 81.74 kg Cisco Ball Other [facility] Other 07-01-2023 10:15-0500 Diastolic blood pressure 70 mm[Hg] Cisco Ball Other [facility] Other 07-01-2023 10:15-0500 Respiratory rate 12 /min Cisco Ball Other [facility] Other 07-01-2023 10:15-0500 Systolic blood pressure 135 mm[Hg] Cisco Ball Other [facility] Other 06-20-2023 02:33-0400 Diastolic blood pressure 74 mm[Hg] DO Cisco Ball Work Phone: [facility] 06-20-2023 02:33-0400 Heart rate 78 /min DO Cisco Ball Work Phone: [facility] 06-20-2023 02:33-0400 Respiratory rate 16 /min DO Cisco Ball Work Phone: [facility] 06-20-2023 02:33-0400 SaO2% (BldA) [Mass fraction] 96 % DO Cisco Ball Work Phone: [facility] 06-20-2023 02:33-0400 Systolic blood pressure 158 mm[Hg] DO Cisco Ball Work Phone: [facility] 06-19-2023 20:47-0400 Body height 187.96 cm DO Cisco Ball Work Phone: [facility] 06-19-2023 20:47-0400 Body temperature 97.9 [degF] DO Cisco Ball Work Phone: [facility] 06-19-2023 20:47-0400 Body weight 80.3 kg DO Cisco Ball Work Phone: [facility] 06-17-2023 15:45-0400 Body height 187.96 cm Cisco Ball Other [facility] Other 06-17-2023 15:45-0400 Body mass index (BMI) [Ratio] 23.65 kg/m2 Cisco Ball Other [facility] Other 06-17-2023 15:45-0400 Body temperature 97.3 [degF] Cisco Ball Other [facility] Other 06-17-2023 15:45-0400 Body weight 83.55 kg Cisco Ball Other [facility] Other 06-17-2023 15:45-0400 Diastolic blood pressure 57 mm[Hg] Cisco Ball Other [facility] Other 06-17-2023 15:45-0400 Respiratory rate 12 /min Cisco Ball Other [facility] Other 06-17-2023 15:45-0400 Systolic blood pressure 128 mm[Hg] Cisco Ball Other [facility] Other 05-20-2023 08:45-0400 Body height 187.96 cm Cisco Ball Other [facility] Other 05-20-2023 08:45-0400 Body mass index (BMI) [Ratio] 23.62 kg/m2 Cisco Ball Other [facility] Other 05-20-2023 08:45-0400 Body weight 83.46 kg Cisco Ball Other [facility] Other 05-20-2023 08:45-0400 Diastolic blood pressure 82 mm[Hg] Cisco Ball Other [facility] Other 05-20-2023 08:45-0400 Respiratory rate 12 /min Cisco Ball Other [facility] Other 05-20-2023 08:45-0400 Systolic blood pressure 121 mm[Hg] Cisco Ball Other [facility] Other 04-21-2023 11:30-0400 Body height 187.96 cm Cisco Ball Other [facility] Other 04-21-2023 11:30-0400 Body mass index (BMI) [Ratio] 23.34 kg/m2 Cisco Ball Other [facility] Other 04-21-2023 11:30-0400 Body weight 82.46 kg Cisco Ball Other [facility] Other 04-21-2023 11:30-0400 Diastolic blood pressure 65 mm[Hg] Cisco Ball Other [facility] Other 04-21-2023 11:30-0400 Respiratory rate 12 /min Cisco Ball Other [facility] Other 04-21-2023 11:30-0400 Systolic blood pressure 165 mm[Hg] Cisco Ball Other [facility] Other 03-01-2023 08:00-0400 Diastolic blood pressure 82 mm[Hg] DO Cisco Ball Work Phone: [facility] 03-01-2023 08:00-0400 Heart rate 62 /min DO Cisco Ball Work Phone: [facility] 03-01-2023 08:00-0400 Respiratory rate 16 /min DO Cisco Ball Work Phone: [facility] 03-01-2023 08:00-0400 SaO2% (BldA) [Mass fraction] 96 % DO Cisco Ball Work Phone: [facility] 03-01-2023 08:00-0400 Systolic blood pressure 146 mm[Hg] DO Cisco Ball Work Phone: [facility] 03-01-2023 06:58-0400 Body height 187.96 cm DO Cisco Ball Work Phone: [facility] 03-01-2023 06:58-0400 Body weight 84.8 kg DO Cisco Ball Work Phone: [facility] 02-24-2023 08:30-0400 Body height 187.96 cm Cisco Ball Other [facility] Other 02-24-2023 08:30-0400 Body mass index (BMI) [Ratio] 24.21 kg/m2 Cisco Ball Other [facility] Other 02-24-2023 08:30-0400 Body weight 85.55 kg Cisco Ball Other [facility] Other 02-24-2023 08:30-0400 Diastolic blood pressure 67 mm[Hg] Cisco Ball Other [facility] Other 02-24-2023 08:30-0400 Respiratory rate 12 /min Cisco Ball Other [facility] Other 02-24-2023 08:30-0400 Systolic blood pressure 112 mm[Hg] Cisco Ball Other [facility] Other 11-21-2022 11:45-0400 Body height 187.96 cm Cisco Ball Other [facility] Other 11-21-2022 11:45-0400 Body mass index (BMI) [Ratio] 24.98 kg/m2 Cisco Ball Other [facility] Other 11-21-2022 11:45-0400 Body weight 88.27 kg Cisco Ball Other [facility] Other 11-21-2022 11:45-0400 Diastolic blood pressure 73 mm[Hg] Cisco Ball Other [facility] Other 11-21-2022 11:45-0400 Respiratory rate 12 /min Cisco Ball Other [facility] Other 11-21-2022 11:45-0400 Systolic blood pressure 147 mm[Hg] Cisco Ball Other [facility] Other 10-22-2022 08:30-0500 Body height 187.96 cm Cisco Ball Other [facility] Other 10-22-2022 08:30-0500 Body mass index (BMI) [Ratio] 24.73 kg/m2 Cisco Ball Other [facility] Other 10-22-2022 08:30-0500 Body weight 87.36 kg Cisco Ball Other [facility] Other 10-22-2022 08:30-0500 Diastolic blood pressure 64 mm[Hg] Cisco Ball Other [facility] Other 10-22-2022 08:30-0500 Respiratory rate 12 /min Cisco Ball Other [facility] Other 10-22-2022 08:30-0500 Systolic blood pressure 118 mm[Hg] Cisco Ball Other [facility] Other 10-07-2022 09:45-0500 Body height 187.96 cm Cisco Ball Other [facility] Other 10-07-2022 09:45-0500 Body mass index (BMI) [Ratio] 24.31 kg/m2 Cisco Ball Other [facility] Other 10-07-2022 09:45-0500 Body weight 85.91 kg Cisco Ball Other [facility] Other 10-07-2022 09:45-0500 Diastolic blood pressure 70 mm[Hg] Cisco Ball Other [facility] Other 10-07-2022 09:45-0500 Respiratory rate 12 /min Cisco Ball Other [facility] Other 10-07-2022 09:45-0500 Systolic blood pressure 122 mm[Hg] Cisco Ball Other [facility] Other 08-27-2022 10:48-0500 Diastolic blood pressure 82 mm[Hg] DO Cisco Ball Work Phone: [facility] 08-27-2022 10:48-0500 Heart rate 64 /min DO Cisco Ball Work Phone: [facility] 08-27-2022 10:48-0500 Respiratory rate 16 /min DO Cisco Ball Work Phone: [facility] 08-27-2022 10:48-0500 SaO2% (BldA) [Mass fraction] 96 % DO Cisco Ball Work Phone: [facility] 08-27-2022 10:48-0500 Systolic blood pressure 146 mm[Hg] DO Cisco Ball Work Phone: [facility] 08-27-2022 09:01-0500 Body height 187.96 cm DO Cisco myseekit Work Phone: [facility] 08-27-2022 09:01-0500 Body temperature 97.8 [degF] DO Cisco Nicholson Work Phone: [facility] 08-27-2022 09:01-0500 Body weight 86.63 kg DO Cisco [employer] Work Phone: [facility] Encounters Encounter Date Encounter Type Care Provider Facility Start: 02-08-2025 End: 02-09-2025 Refill Miguel Angel Slaughter DO Work Phone: [facility] Comment on above: 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, moderate stage Start: 01-26-2025 End: 01-26-2025 ambulatory [facility] Work Phone: Start: 01-26-2025 End: 01-26-2025 Patient encounter procedure [facility] Work Phone: Start: 01-12-2025 End: 01-12-2025 Refill Virginie Chang COT [facility] Comment on above: 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, moderate stage (Primary Dx) Start: 01-10-2025 End: 01-10-2025 Bamboo flowsheet Mgiuel Angel Slaughter DO Work Phone: [facility] Start: 01-10-2025 End: 01-10-2025 Bamboo flowsheet Miguel Angel Slaughter DO Work Phone: [facility] Start: 01-10-2025 End: 01-10-2025 ambulatory MIGUEL ANGEL SLAUGHTER Not Available Start: 01-06-2025 Non-patient / Non-visit [facility] Work Phone: Start: 01-03-2025 End: 01-03-2025 Patient encounter procedure [facility] Work Phone: Start: 12-28-2024 End: 12-28-2024 ambulatory [facility] Work Phone: Start: 12-28-2024 End: 12-28-2024 Patient encounter procedure [facility] Work Phone: Start: 12-13-2024 End: 12-13-2024 ambulatory [facility] Start: 12-12-2024 End: 12-12-2024 ambulatory [facility] Work Phone: Start: 12-12-2024 End: 12-12-2024 Patient encounter procedure [facility] Work Phone: Start: 11-15-2024 End: 11-15-2024 ambulatory [facility] Work Phone: Start: 11-15-2024 End: 11-15-2024 Patient encounter procedure [facility] Work Phone: Start: 10-28-2024 End: 10-28-2024 ambulatory [facility] Work Phone: Start: 10-28-2024 End: 10-28-2024 Patient encounter procedure [facility] Work Phone: Start: 09-21-2024 End: 09-21-2024 ambulatory [facility] Work Phone: Start: 09-21-2024 End: 09-21-2024 Patient encounter procedure [facility] Work Phone: Start: 09-14-2024 End: 09-14-2024 ambulatory [facility] Work Phone: Start: 09-14-2024 End: 09-14-2024 Patient encounter procedure [facility] Work Phone: Start: 09-07-2024 End: 01-22-2025 ambulatory [facility] Work Phone: Start: 09-07-2024 End: 09-07-2024 Patient encounter procedure [facility] Work Phone: Start: 09-02-2024 Non-patient / Non-visit [facility] Work Phone: Start: 09-01-2024 End: 09-01-2024 ambulatory [facility] Work Phone: Start: 09-01-2024 End: 09-01-2024 Patient encounter procedure [facility] Work Phone: Start: 08-29-2024 Patient encounter procedure [facility] Start: 07-28-2024 End: 07-28-2024 Refill Trista Shi COT Work Phone: [facility] Comment on above: 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, moderate stage (CMS/HCC) Start: 07-11-2024 End: 07-11-2024 Patient encounter procedure [facility] Work Phone: Start: 07-05-2024 End: 07-05-2024 [...] Start: 05-04-2024 End: 05-04-2024 ambulatory [facility] Work Phone: Start: 05-04-2024 End: 05-04-2024 Patient encounter procedure [facility] Work Phone: Start: 03-19-2024 End: 03-19-2024 ambulatory [facility] Work Phone: Start: 03-19-2024 End: 03-19-2024 Patient encounter procedure [facility] Work Phone: Start: 03-15-2024 Non-patient / Non-visit [facility] Work Phone: Start: 03-14-2024 End: 03-14-2024 ambulatory [facility] Work Phone: Start: 03-14-2024 End: 03-14-2024 Patient encounter procedure [facility] Work Phone: Start: 02-24-2024 End: 02-24-2024 ambulatory MIGUEL ANGEL SLAUGHTER Not Available Start: 02-22-2024 End: 02-22-2024 ambulatory CHEYANNE ALBARRAN Not Available Start: 01-28-2024 End: 01-28-2024 ambulatory [facility] Work Phone: Start: 01-28-2024 End: 01-28-2024 Patient encounter procedure [facility] Work Phone: Start: 01-22-2024 Non-patient / Non-visit [facility] Work Phone: Start: 11-27-2023 End: 11-27-2023 ambulatory [facility] Work Phone: Start: 11-27-2023 End: 11-27-2023 Patient encounter procedure [facility] Work Phone: Start: 11-16-2023 Non-patient / Non-visit [facility] Work Phone: Start: 11-06-2023 End: 11-06-2023 ambulatory [facility] Work Phone: Start: 11-06-2023 End: 11-06-2023 Patient encounter procedure [facility] Work Phone: Start: 10-28-2023 End: 10-28-2023 Patient encounter procedure [facility] [facility] Work Phone: Start: 10-05-2023 Non-patient / Non-visit [facility] [employer] Work Phone: Start: 09-21-2023 End: 09-21-2023 ambulatory Cisco Nicholson Other [facility] Other Start: 09-21-2023 Telephone encounter Cisco Nicholson [facility] Start: 09-16-2023 End: 09-16-2023 ambulatory Cisco Nicholson Other [facility] Other Start: 09-16-2023 Telephone encounter Cisco HANNA G [facility] Start: 09-15-2023 End: 09-15-2023 ambulatory Cisco Nicholson Other [facility] Other Start: 09-15-2023 Office outpatient visit 15 minutes Cisco Nicholson [facility] Start: 09-15-2023 End: 09-15-2023 Patient encounter procedure [facility] Start: 09-02-2023 End: 09-02-2023 Patient encounter procedure Angely Garcia NILSalvador General Surgery Nill/Said [facility] Start: 08-30-2023 End: 08-30-2023 ambulatory Cisco Nicholson Other [facility] Other Start: 08-30-2023 Telephone encounter Cisco Nicholson [facility] Start: 08-28-2023 End: 08-28-2023 ambulatory Cisco Nicholson Other [facility] Other Start: 08-28-2023 Patient encounter procedure Cisco RICHARDS [facility] Start: 08-28-2023 Telephone encounter Cisco Fletcher [facility] Start: 08-28-2023 End: 08-28-2023 Patient encounter procedure [facility] Work Phone: Start: 08-26-2023 ambulatory Angely R NILL Facility : [place] Start: 08-26-2023 End: 08-26-2023 Patient encounter procedure Angely R NILL General Surgery Nill/Said [facility] Start: 08-24-2023 End: 08-24-2023 ambulatory Cisco Nicholson Other [facility] Other Start: 08-24-2023 Telephone encounter Cisco Nicholson [facility] Start: 08-23-2023 End: 08-23-2023 ambulatory Cisco Nicholson Other [facility] Other Start: 08-23-2023 Telephone encounter Cisco Nicholson [facility] Start: 07-28-2023 End: 07-29-2023 ambulatory Angely R NILL Facility: [place] Start: 07-28-2023 End: 07-28-2023 Patient encounter procedure Angely R NILL General Surgery Nill/Said [facility] Start: 07-01-2023 End: 07-01-2023 ambulatory Cisco Nicholson Other [facility] Other Start: 07-01-2023 Transitional care manage srvc 14 day discharge Cisco RICHARDS [facility] Start: 06-26-2023 ambulatory Angely NILL Facility:[facility] [place] Start: 06-24-2023 End: 06-24-2023 ambulatory Cisco Nicholson Other [facility] Other Start: 06-24-2023 Telephone encounter Cisco Ball [facility] Start: 06-20-2023 End: 06-22-2023 Evaluation and management of inpatient Berhane Chambersdict Facility:[facility] Start: 06-20-2023 Evaluation and management of inpatient DO Cisco Nicholson Work Phone: [facility] Work Phone: Start: 06-20-2023 observation encounter DO Shaji Nicholson Work Phone: [facility] Work Phone: Start: 06-19-2023 End: 06-19-2023 ambulatory Cisco Ball Other [facility] Other Start: 06-19-2023 Telephone encounter Cisco Ball FP [facility] Start: 06-18-2023 End: 06-18-2023 ambulatory Cisco Ball Other [facility] Other Start: 06-18-2023 Telephone encounter Cisco Ball [facility] Start: 06-17-2023 End: 06-17-2023 ambulatory Cisco Ball Other [facility] Other Start: 06-17-2023 Office outpatient visit 15 minutes Cisco Ball [facility] Start: 06-17-2023 Telephone encounter Cisco Ball [facility] Start: 06-02-2023 End: 06-02-2023 ambulatory Cisco Ball Other [facility] Other Start: 06-02-2023 Telephone encounter Cisco Ball [facility] Start: 05-20-2023 End: 05-20-2023 ambulatory Cisco Ball Other [facility] Other Start: 05-20-2023 Office outpatient visit 25 minutes Cisco Ball [facility] Start: 05-11-2023 End: 05-11-2023 ambulatory Cisco Ball Other [facility] Other Start: 05-11-2023 Telephone encounter Cisco Nicholson [facility] Start: 04-27-2023 End: 04-27-2023 ambulatory Cisco Nicholson Other [facility] Other Start: 04-27-2023 Telephone encounter Cisco Nicholson [facility] Start: 04-23-2023 End: 04-23-2023 ambulatory Cisco Nicholson Other [facility] Other Start: 04-23-2023 Telephone encounter Cisco HANNA [facility] Start: 04-21-2023 End: 04-21-2023 ambulatory Cisco Nicholson Other [facility] Other Start: 04-21-2023 Office outpatient visit 25 minutes Cisco Nicholson [facility] Start: 03-16-2023 End: 03-16-2023 ambulatory Cisco Nicholson Other [facility] Other Start: 03-16-2023 Telephone encounter Cisco HANNA [facility] Start: 03-04-2023 Telephone encounter Cisco HANNA [facility] Start: 03-04-2023 End: 03-04-[address] Cisco Nicholson [facility] Other Start: 03-03-2023 End: 03-03-2023 ambulatory Cisco Nicholson Other [facility] Other Start: 03-03-2023 Telephone encounter Cisco HANNA [facility] Start: 03-01-2023 End: 03-02-[address] Cisco Nicholson Facility:[id number] Start: 03-01-2023 Evaluation and management of inpatient DO Cisco Nicholson Work Phone: [facility] [place] [facility] Work Phone: Start: 03-01-2023 observation encounter DO Shaji Nicholson Work Phone: [facility] Work Phone: Start: 02-24-2023 End: 02-24-2023 ambulatory Cisco Nicholson Other [facility] Other Start: 02-24-2023 Office outpatient visit 25 minutes Cisco Nicholson [facility] Start: 01-20-2023 End: 01-20-2023 ambulatory Cisco Nicholson Other [facility] Other Start: 01-20-2023 Telephone encounter Cisco Nicholson [facility] Start: 11-21-2022 End: 11-21-2022 ambulatory Cisco Nicholson Other [facility] Other Start: 11-21-2022 Office outpatient visit 15 minutes Cisco Nicholson [facility] Start: 10-22-2022 End: 10-22-2022 ambulatory Cisco Nicholson Other [facility] Other Start: 10-22-2022 Office outpatient visit 25 minutes Cisco Nicholson [facility] Start: 10-12-2022 End: 10-12-2022 ambulatory Cisco Nicholson Facility:[facility] Start: 10-12-2022 End: 10-12-2022 ambulatory DO Cisco Nicholson Work Phone: [facility] Work Phone: Start: 10-12-2022 End: 10-12-2022 Patient encounter procedure DO Cisco Nicholson Work Phone: [facility] [place] Work Phone: Start: 10-07-2022 End: 10-07-2022 ambulatory Cisco Nicholson Other [facility] Other Start: 10-07-2022 Office outpatient visit 15 minutes Cisco Nicholson [facility] Start: 09-14-2022 End: 09-14-[address] CISCO NICHOLSON Facility:[facility] Start: 09-08-2022 End: 09-08-2022 ambulatory Imad Asaad Other [facility] Other Start: 09-08-2022 Telephone encounter Imad Asaad [facility] Start: 09-05-2022 End: 09-05-2022 ambulatory Cisco Nicholson Other [facility] Other Start: 09-05-2022 Telephone encounter Cisco Fletcher [facility] Start: 09-03-2022 End: 09-03-2022 ambulatory Imad Asaad Other [facility] Other Start: 09-03-2022 Telephone encounter Imad Asaad [facility] Start: 09-01-2022 End: 09-01-2022 ambulatory Imad Asaad Other [facility] Other Start: 09-01-2022 Telephone encounter Imad Asaad [facility] [employer] [facility] Start: 08-27-2022 Telephone encounter Stalin HANNA [facility] Start: 08-27-2022 End: 08-27-2022 ambulatory Cisco Nicholson Facility:[facility] Start: 08-27-2022 End: 08-27-2022 Admission to same day surgery center DO Cisco Nicholson Work Phone: [facility] Work Phone: Start: 08-27-2022 End: 08-27-2022 ambulatory DO Cisco Nicholson Work Phone: [facility] Work Phone: Start: 08-22-2022 End: 08-22-2022 ambulatory Imad Asaad Other [facility] Other Start: 08-22-2022 Telephone encounter Imad Asaad [facility] [facility] Start: 08-20-2022 End: 08-20-2022 ambulatory Cisco Nicholson Other [facility] Other Start: 08-20-2022 Telephone encounter Cisco HANNA [facility] Start: 08-19-2022 End: 08-19-2022 ambulatory Cisco Nicholson Other [facility] Other Start: 08-19-2022 Telephone encounter Cisco Nicholson [facility] Start: 07-28-2022 End: 07-29-[address] [...] Date Procedure Procedure Detail Performing Clinician Start: 01-10-2025 End: 01-10-2025 [facility] xm&eval comprhnsv estab pt 1/> Blepharitis of upper and lower eyelids of both eyes, unspecified type Miguel Angel Slaughter DO Work Phone: Comment on above: Blepharitis of upper and lower eyelids o f both eyes, unspecified type (Primary Dx); Diplopia; Dry eyes; PCO (posterior capsular opacification), bilateral; Primary open angle glaucoma (POAG) of both eyes, moderate stage Start: 07-05-2024 Visual field xm uni/bi w/interp extended exam Miguel Angel Slaughter DO Work Phone: Start: 07-05-2024 End: 07-05-2024 [facility] xm&eval comprhnsv estab pt 1/> [...] Work Phone: Start: 08-27-2022 Esophagogastroduodenoscopy DO Cisco Foy all Work Phone: Start: 08-27-2022 Colonoscopy Angely MCCORMICKL Start: 08-27-2022 Esophagogastroduodenoscopy Angely MCCORMICKL Start: 07-28-2022 PSA screening MIGUEL ANGEL SLAUGHTER Comment on above: Performed By: #### PSASC #### [facility] [address] [address] [address] Patrica Nathan Cardiac catheterization Renato OCAMPO History of operative procedure on shoulder Angely OCAMPO Comment on above: x3 History of repair of inguinal hernia H/O bilateral inguinal hernia repair Repair of right inguinal hernia Angely OCAMPO Plan of Treatment Date Care Activity Detail Author Start: 07-11-2025 End: 07-11-2025 Patient encounter procedure 07/11/2025 8:45 AM EST Office Visit [facility] [address] [place] [address] Miguel Angel Slaughter DO [address] [place] [address] [facility] Start: 01-10-2025 End: 01-10-2025 Patient encounter procedure 01/10/2025 9:00 AM EDT Office Visit [facility] [address] [place] [phone] Miguel Angel Slaughter, DO [address] [place] [address] Arrived [facility] Comment on above: Arrived Start: 01-03-2025 End: 01-03-2025 Patient encounter procedure 01/03/2025 9:45 AM EDT Office Visit [facility] [address] [place] [phone] Miguel Angel Slaughter, DO [address] [place] [address] [facility] Start: 07-05-2024 End: 07-05-2024 Patient encounter procedure [facility] Comment on above: Arrived Start: 04-17-2024 Influenza vaccination Influenza Vacc ine (#1) [facility] Start: 06-20-2023 Plain chest X-ray XR chest 2V* [facility] Start: 06-20-2023 XR Chest 2 Views [facility] Start: 06-20-2023 Hospital admission [facility] Start: 06-20-2023 [facility] Start: 06-20-2023 CT of head without contrast CT head/brain wo con [facility] Start: 06-20-2023 CT Unspecified body region WO contrast [facility] Start: 03-01-2023 Physical therapy procedure [facility] Start: 03-01-2023 Referral to occupati onal therapist [facility] Start: 03-01-2023 Referral to neurologist [facility] Start: 03-01-2023 Hospital admission [facility] Start: 03-01-2023 [facility] Start: 08-27-2022 [facility] Start: 08-17-2013 Pneumococcal Vaccine : 65+ Years (2 of 2 - PCV) Pneumococcal Vaccine: 65+ Years (2 of 2 - PCV) [facility] Bacteria identified in Urine by Culture [facility] Comprehensive metabo lic 2000 panel - Serum or Plasma [facility] CT Abdomen and Pelvi s W contrast IV [facility] Helicobacter pylori Ag [Presence] in Stool by Immunoassay [facility] Patient Education Colon Polypectomy (DC) [facility] Work Phone: US Lower extremity v ein - bilateral [facility] Immunizations Immunization Date Immunization Notes Care Provider Fa cility 05-04-2024 influenza, high dose seasonal, preservative-free [facility] 05-04-2024 influenza virus vaccine, unspecified formulation Miguel Angel Zanishaaga DO Work Phone: [facility] 07-01-2023 influenza virus vaccine, unspecified formulation [facility] 07-01-2023 influenza, high dose seasonal, preservative-free Cisco Nicholson Other [facility] Other 07-04-2022 SARS-CoV-2 (COVID-19 ) [id number] Angely OCAMPO [facility] 06-05-2022 influenza virus vaccine, split virus (incl. purified surface antigen) Cisco Nicholson Other [facility] Other 06-05-2022 influenza virus vaccine, unspecified formulation [facility] 03-28-2022 diphtheria, tetanus toxoids and acellular pertussis vaccine, unspecified formulation Cisco Nicholson Other [facility] 11-16-2021 SARS-CoV-2 mRNA (wmryqxvielu-thjp-iopo ose) vaccine Angely OCAMPO [facility] 06-28-2021 influenza virus vaccine, split virus (incl. purified surface antigen) Cisco Nicholson Other [facility] Other 06-28-2021 influenza virus vaccine, unspecified formulation [facility] 05-18-2021 SARS-CoV-2 (COVID-19 ) mRNA BNT-162b2 vax Angely OCAMPO [facility] Comment on above: Result Comment: 2022: [id number] 10-06-2020 SARS-CoV-2 (COVID-19 ) mRNA BNT-162b2 tylor OCAMPO [facility] Comment on above: Result Comment: 2022: [id number] 09-15-2020 COVID-19 Vaccine Pfizer - Documentation Purposes Only Cisco Nicholson Other [facility] Comment on above: Result Comment: 2022: [id number] 05-30-2020 influenza virus vaccine, split virus (incl. purified surface antigen) Cisco Nicholson Other [facility] Other 05-30-2020 influenza virus vaccine, unspecified formulation [facility] 06-01-2019 influenza virus vaccine, split virus (incl. purified surface antigen) Cisco Nicholson Other [facility] Other 06-01-2019 influenza virus vaccine, unspecified formulation [facility] 06-09-2018 influenza virus vaccine, split virus (incl. purified surface antigen) Cisco Nicholson Other [facility] Other 06-09-2018 influenza virus vaccine, unspecified formulation [facility] 05-14-2017 tetanus and diphther ia toxoids, adsorbed, preservative free, for adult use (5 Lf of tetanus toxoid and 2 Lf of diphtheria toxoid) Cisco Nicholson Other [facility] 05-26-2016 influenza virus vaccine, split virus (incl. purified surface antigen) Cisco Nicholson Other [facility] Other 05-26-2016 influenza virus vaccine, unspecified formulation [facility] 11-27-2015 pneumococcal conjuga te vaccine, 13 valent Cisco Nicholson Other [facility] 05-30-2015 influenza virus vaccine, split virus (incl. purified surface antigen) Cisco Nicholson Other [facility] Other 05-30-2015 influenza virus vaccine, unspecified formulation [facility] 06-14-2013 pneumococcal polysaccharide vaccine, 23 valent Cicso Nicholson Other [facility] 05-23-2013 tetanus and diphther ia toxoids, adsorbed, preservative free, for adult use (5 Lf of tetanus toxoid and 2 Lf of diphtheria toxoid) Cisco Nicholson Other [facility] NEGATED: Highlighted row has not occurred!07-28-2023 influenza virus vaccine, unspecified formulation Angely OCAMPO General Surgery [facility] Payers Date Payer Category Payer Self-pay 2022 Private Health Insurance [employer] Dc mber [id number] 2008 Medicare MEDICARE [id number] 1959 Medicare [id number] 1959 Unknown [id number] 1943 Unknown [id number] 2.16.840.1.252033.3.579.2 .593 1943 Unknown [id number] 2.16.840.1.732105.3.579.2 .593 1943 Unknown [id number] 2.16.840.1.015690.3.579.2 .593 1943 Unknown [id number] 2.16.840.1.851748.3.579.2 .593 1943 Unknown [id number] 2.16.840.1.196843.3.579.2 .593 1943 Unknown [id number] 2.16.840.1.124014.3.579.2 .593 1943 Unknown [id number] 2.16.840.1.898455.3.579.2 .593 1943 Unknown [id number] 2.16.840.1.595715.3.579.2 .593 1943 Unknown [id number] 2.16.840.1.837286.3.579.2 .356 1943 Unknown [id number] 2.16.840.1.464403.3.579.2 .727 1943 Unknown [id number] 2.16.840.1.260656.3.579.2 .727 1943 Unknown [id number] 2.16.840.1.409497.3.579.2 .1259 1943 Unknown [id number] 2.16.840.1.103104.3.579.2 .1259 1943 Unknown [id number] 2.16.840.1.907156.3.579.2 .1259 1943 Unknown [id number] 2.16.840.1.398614.3.579.2 .1259 1943 Unknown [id number] 2.16.840.1.755522.3.579.2 .1259 Unknown [id number] 2.16.840.1.910534.3.579.2 .531 Unknown [id number] 2.16.840.1.507115.3.579.2 .531 Unknown [id number] 2.16.840.1.641836.3.579.2 .531 Unknown [id number] 2.16.840.1.741519.3.579.2 .531 Social History Date Type Detail Facility Tobacco smoking stat us [facility] Unknown if ever smoked [facility] Work Phone: Start: 1945 Sex Assigned At Male F [facility] Start: 02-22-2024 End: 01-10-2025 [facility] Start: 03-01-2023 End: 01-08-2024 Tobacco smoking status RIIS Ex-smoker (finding) [facility] Tobacco smoking status Never Gener al Surgery [facility] History of tobacco use Current smoker [facility] History of tobacco use Cigarette Smoker N [facility] Start: 01-08-2024 Tobacco use and exposure Smokeless tobacco non-user [facility] Start: 02-22-2024 End: 01-10-2025 History of Social function [facility] Start: 1945 Sex assigned at Not on file N [facility] Start: 09-01-2024 End: 01-26-2025 Sex Male (finding) [facility] Goals Date Patient Goal Desired Activity /State Functional Status Date Assessment Result Facility 07-28-2023 Functional Status N/A General [facility] Clinical Notes 03-20-2022 to 01-10-2025 Miguel Angel Slaughter, - 01/10/2025 9:00 AM EDT Note Date & Type Note Facility 01-10-2025 History of Present illness Narrative Images from [...] laser capsulotomy, they are to notify their civil engineering drafter promptly if they have a significant change [...] cessation of Escitalopram. documented in this encounter [facility] 12-13-2024 Note [facility] Clinic Note Chief Complaint: Patient here for 1 year follow up. Patient states he feels pretty good, with the exception of his feet due to neuropathy. Patient denies chest pain, SOB, dizziness, leg swelling, passing out or heart palpitations. Patient states he just seen is PCP Dr. Nicholson on 12/12/2024. HPI: Mr. Patel presents to clinic for [...] 5. Follow up with me in the [facility] in 1 to 2 months. 6. [...] 2. Mixed hyperlipidemia 3. Coronary arteriosclerosis in [place] artery 4. Dilated aortic root P (more content not included)... [facility] 10-28-2024 Evaluation note Diagnosis Onset Date Resolution Chronic venous insufficiency of lower extremity acute October 28, 2024 11:43am Lower extremity ulceration acute October 28, 2024 11:43am Cerumen impaction noneactive October 152024 11:43am Aphthous ulcer of mouth acute A pri2024 2:40pm Hypertension acute November 15, 025 2:40pm SNHL (sensorineural hearing loss) acute December 12, 2024 2:21pm Bleeding from left ear noneactive Ap ril 2024 2:21pm External otitis of left ear noneactive December 12, 2024 2:21pm Ascending aortic aneurysm acute December 28, 2024 8:18am ASHD (arteriosclerotic heart disease) acute December 28, 2024 8:18am Chronic venous insufficiency of lower extremity acute December 28, 2024 8:18am GREYSON (generalized anxiety disorder) acute December 28, 2024 8:18am Hypercholesteremia acute December 282024 8:18am Hypertension acute December 28 8:18am Irritable bowel syndrome with constipation acute December 28, 2024 8:18am Peripheral polyneuropathy acute December 28, 2024 8:18am [facility] Work Phone: 1(142) 945-948103-14-2025 Evaluation note* Diagnosis Onset Date Resolution Status Admit Date Chronic venous insufficiency of lower extremity acute October 28, 2024 11:43am Lower extremity ulceration deleted October 28, 2024 11:43am Cerumen impaction noneactive October 152024 11:43am Hypertension acute November 15, 025 2:40pm Aphthous ulcer of mouth deleted A pri2024 2:40pm SNHL (sensorineural hearing loss) [place] December 12, 2024 2:21pm Bleeding from left ear noneactive Ap ril 2024 2:21pm External otitis of left ear noneacti ve December 12, 2024 2:21pm Ascending aortic aneurysm acute December 28, 2024 8:18am ASHD (arteriosclerotic heart disease) acute December 28, 2024 8:18am Chronic venous insufficiency of lower extremity acute December 28, 2024 8:18am GREYSON (generalized anxiety disorder) acute December 28, 2024 8:18am Hypercholesteremia acute December 282024 8:18am Hypertension acute December 28 8:18am Irritable bowel syndrome wit h constipation acute December 28, 2024 8:18am Peripheral polyneuropathy acute December 28, 2024 8:18am Ulnar neuropathy at elbow of left upper extremity acute December 28, 2024 8:18am Abdominal pain acute January 03, 2025 2:21pm H/O bilateral inguinal herni a repair acute January 03, 2025 2:21pm Inguinal hernia of right andra e without obstruction or gangrene acute January 03, 2025 2:21pm [facility] Work Phone: 1(379) 441-204901-29-2025 Evaluation note* Diagnosis Onset Date Resolution Status Admit Date Chronic venous insufficiency of lower extremity acute September 14, 2024 8:13am Lower extremity ulceration acute September 14, 2024 8:13am Swelling of both lower extremities acute September 14 8:13am Chronic venous insufficiency of lower extremity acute September 21, 2024 9:40am Lower extremity ulceration acute September 21, 2024 9:40am Swelling of both lower extremities acute September 21 9:40am Chronic venous insufficiency of lower extremity acute October 28, 025 11:43am Lower extremity ulceration acute October 28, 2024 11:43am Cerumen impaction noneactive October 152024 11:43am Aphthous ulcer of mouth acute A pri2024 2:40pm Hypertension acute November 15, 2 025 2:40pm [facility] Work Phone: 1(527) 810-442301-16-2025 Evaluation note* Diagnosis Onset Date Resolution Status Admit Date Ascending aortic aneurysm acute September 01, 2024 8:40am ASHD (arteriosclerotic heart disease) acute September 01 8:40am Chronic venous insufficiency of lower extremity acute September 01 8:40am GREYSON (generalized anxiety disorder) acute September 01 8:40am Hypercholesteremia acute 2024 8:40am Hypertension acute August 8:40am Irritable bowel syndrome wit h constipation acute September 01 8:40am Medicare annual wellness vis it, subsequent acute September 01 8:40am Peripheral polyneuropathy acute September 01, 2024 8:40am Screening PSA (prostate spec ific antigen) acute September 01 8:40am Chronic venous insufficiency of lower extremity acute September 07 9:20am Lower extremity ulceration acute September 07, 2024 9:20am Swelling of both lower extremities acute September 07 9:20am Chronic venous insufficiency of lower extremity acute September 14 8:13am Lower extremity ulceration acute September 14, 2024 8:13am Swelling of both lower extremities acute September 14 8:13am Chronic venous insufficiency of lower extremity acute September 21 9:40am Lower extremity ulceration acute September 21, 2024 9:40am Swelling of both lower extremities acute September 21 9:40am [facility] Work Phone: 1(903) 538-314601-16-2025 Evaluation note* Diagnosis Onset Date Resolution Status Admit Date Ascending aortic aneurysm acute September 01, 2024 8:40am ASHD (arteriosclerotic heart disease) acute September 01 8:40am Chronic venous insufficiency of lower extremity acute September 01 8:40am GREYSON (generalized anxiety disorder) acute September 01 8:40am Hypercholesteremia acute 2024 8:40am Hypertension acute August 8:40am Irritable bowel syndrome wit h constipation acute September 01 8:40am Medicare annual wellness vis it, subsequent acute September 01 8:40am Peripheral polyneuropathy acute September 01, 2024 8:40am Screening PSA (prostate specific antigen) acute September 01, 2024 8:40am Chronic venous insufficiency of lower extremity acute September 07 9:20am Lower extremity ulceration acute September 07, 2024 9:20am Swelling of both lower extremities acute September 07 9:20am Chronic venous insufficiency of lower extremity acute September 14 8:13am Lower extremity ulceration acute September 14, 2024 8:13am Swelling of both lower extremities acute September 14 8:13am Chronic venous insufficiency of lower extremity acute September 21 9:40am Lower extremity ulceration acute September 21, 2024 9:40am Swelling of both lower extremities acute September 21 9:40am Chronic venous insufficiency of lower extremity acute October 28, 2024 11:43am Lower extremity ulceration acute October 28, 2024 11:43am Cerumen impaction noneactive October 152024 11:43am [facility] Work Phone: 1(353) 914-799811-25-2024 Evaluation note* Diagnosis Onset Date Resolution Status Admit Date Carpal tunnel syndrome of le ft wrist acute July 11 11:35am Chronic venous insufficiency of lower extremity acute July 11 11:35am Swelling of both lower extremities acute July 11 11:35am Ascending aortic aneurysm acute September 01, 2024 8:40am ASHD (arteriosclerotic heart disease) acute September 01 8:40am Chronic venous insufficiency of lower extremity acute September 01 8:40am GREYSON (generalized anxiety disorder) acute September 01 8:40am Hypercholesteremia acute 2024 8:40am Hypertension acute August 8:40am Irritable bowel syndrome wit h constipation acute September 01 8:40am Medicare annual wellness vis it, subsequent acute September 01 8:40am Peripheral polyneuropathy acute September 01, 2024 8:40am Screening PSA (prostate spec ific antigen) acute September 01 8:40am [facility] Work Phone: 1(465) 528-914711-25-2024 Evaluation note* Diagnosis Onset Date Resolution Status Admit Date Carpal tunnel syndrome of le ft wrist acute July 11, 11:35am Chronic venous insufficiency of lower extremity acute July 11 11:35am Swelling of both lower extremities acute July 11 11:35am Ascending aortic aneurysm acute September 01, 2024 8:40am ASHD (arteriosclerotic heart disease) acute September 01 8:40am Chronic venous insufficiency of lower extremity acute Nuria 16th, 20 25 8:40am GREYSON (generalized anxiety disorder) acute September 01 8:40am Hypercholesteremia acute Januar 2024 8:40am Hypertension acute August 8:40am Irritable bowel syndrome wit h constipation acute September 01 8:40am Medicare annual wellness vis it, subsequent acute September 01 8:40am Peripheral polyneuropathy acute September 01, 2024 8:40am Screening PSA (prostate spec ific antigen) acute September 01 8:40am Chronic venous insufficiency of lower extremity acute September 07 9:20am Lower extremity ulceration acute September 07, 2024 9:20am Swelling of both lower extremities acute September 07 9:20am Chronic venous insufficiency of lower extremity acute September 14 8:13am Lower extremity ulceration acute September 14, 2024 8:13am Swelling of both lower extremities acute September 14 8:13am [facility] Work Phone: 1(145) 208-763011-19-2024 NoteRight Eye Reliability was borderline. Progression has been stable. Foveal threshold was normal. Findings include normal observations. Left Eye Reliability was good. Progression has been stable. Foveal threshold was normal. Findings include normal observations.[id number] History of Present illness Narrative* Miguel Angel Slaughter, - 07/05/2024 9:30 AM EST Images from [...] laser capsulotomy, they are to notify their civil engineering drafter promptly if they have a significant change [...] after cessation of Escitalopram. documented in this [facility]01-31-2024 Evaluation note* Encounter Date Diagnosis Assessment Notes Treatment Notes Treatment Clinical Notes Aug, GREYSON (generalized anxiety disorder) (ICD-10 - F41.1) [facility] Other 01-30-2024 Evaluation note* Encounter Date Diagnosis [...] treatment Referred and scheduled w/ Neuropsychiatric testing [facility] Other 01-12-2024 Evaluation note* Encounter Date Diagnosis [...] Denies dysuria or hematuria PSA next OV [facility] Other 12-12-2023 NoteChief Complaint consultation for left [...] Use:. Cigarettes, 2per day. (more content not included)...[facility] CampusComment [facility] above:Result Comment: Electronically Signed By: TOO TEJADA, Angely Lauren.jose\Date and Time Signed: 07/28/23 20:29 [id number] Evaluation note * Encounter Date Diagnosis Assessment [...] Fall precuations. Discussed tapering dose of Gabapentin [facility] Other 11-02-2023 Evaluation note* Encounter Date Diagnosis Assessment Notes Treatment Notes Treatment Clinical Notes Jun, COVID-19 (ICD-10 - U07.1) [facility] Other 11-01-2023 Evaluation note* Encounter Date Diagnosis [...] or drinking prior to bedtime. Weight loss. [facility] Other 10-04-2023 Evaluation note* Encounter Date Diagnosis [...] now. Recheck in month, consider Neurology referral [facility] Other 09-25-2023 Evaluation note* Encounter Date Diagnosis Assessment Notes Treatment Notes Treatment Clinical Notes Apr, COVID (ICD-10 - U07.1) [facility] Other 09-07-2023 Evaluation note* Encounter Date Diagnosis Assessment Notes Treatment Notes Treatment Clinical Notes Apr, Right lower quadrant abdominal pain (ICD-10 - R10.31) [facility] Other 09-05-2023 Evaluation note* Encounter Date Diagnosis [...] a trip to ER for IV hydration. [facility] Other 07-31-2023 Evaluation note* Encounter Date Diagnosis Assessment Notes Treatment Notes Treatment Clinical Notes Feb, Primary insomnia (ICD-10 - F51.01) [facility] Other 07-18-2023 Evaluation note* Encounter Date Diagnosis Assessment Notes Treatment Notes Treatment Clinical Notes Feb, Peripheral polyneuropathy (ICD-10 - G62.9) [facility] Other 07-11-2023 Evaluation note* Encounter Date Diagnosis [...] Healtlhy diet, exercise and proper sleep routine [facility] Other 06-06-2023 Evaluation note* Encounter Date Diagnosis Assessment Notes Treatment Notes Treatment Clinical Notes Jan, Peripheral polyneuropathy (ICD-10 - G62.9) [facility] Other 04-07-2023 Evaluation note* Encounter Date Diagnosis [...] continue exercise to achieve/maintain a normal BMI. [facility] Other 03-08-2023 Evaluation note* Encounter Date Diagnosis [...] in remission (ICD-10 - F17.211) Continue abstinence [facility] Other 02-21-2023 Evaluation note* Encounter Date Diagnosis [...] Fall precautions. Inspect feet daily for cuts. [facility] Other 01-18-2023 Evaluation note* Encounter Date Diagnosis Assessment Notes Treatment Notes Treatment Clinical Notes Aug, Helicobacter pylori (H. pylori) (ICD-10 - A04.8) [facility] Other 01-11-2023 History and physical note Author Maryjane Christensen [facility] August 27, 2022 10:16am Note Date/Time August 27, 2022 1 0:16am [facility] [address] [place] [address] Gastroenterology H&P Signed Patient: Yonatan Patel MR#: [id number] : 1945 Acct:[id number] Age/Sex: 77 / M Adm Date: 3 Loc: Room: Type: [facility] Attending Dr: Alek Oliva MD Copies [...] signed by Maryjane Christensen MD> 08/27/22 1016 [facility] Work Phone: 1(354) 737-180601-11-2023 [facility]20[facility] Evaluation note* Encounter Date Diagnosis Assessment Notes Treatment Notes Treatment Clinical Notes Aug, Primary insomnia (ICD-10 - F51.01) [facility] Other 08-04-2022 NoteHISTORY AND PHYSICAL EXAMINATION Date:03/19/2022 [...] doing so in the near future. 3. [id number] patient was briefed in the office and [...] and go forward with this elective procedure.[facility] [id number] NoteOPERATIVE NOTE OPERATION DATE: 03/20/2022 SURGEON: Miguel [...] ensuring mobility, phacoemulsification was performed in a [id number]-type fashion. After all nuclear material had been [...] and after satisfaction could be achieved, the hatchery helper and the gonioprism were removed from [...] up the following day for postoperative care.[facility] Author Berhane Trammell [facility] March 01, 2023 2:24pm Note Date/Time March 01, 2023 2:24 pm [facility] [address] [place] [address] Neurology Consult Note Signed Patient: Yonatan Patel MR#: [id number] : 1945 Acct:[id number] Age/Sex: 77 / M Adm Date: 3 Loc: 3T Room: [address] [place] [address] Type: ADM INOo Attending Dr: Bobo Villagomez MD Copies to: DO Bobo Adler MD Steven Benedict, MD~ HPI Consult Date: 03/01/23 Funeral Director/Embalmer: Berhane Trammell MD Reason for consult: Leg [...] Selena Reid M.D.03/01/2023 9:15 AM Dictation Location: [employer] [facility] 03/01/23 07:02 IMPRESSION: ATROPHY AND CHRONIC MICROVASCULAR CHANGES. NO DEFINITE ACUTE INTRACRANIAL ABNORMALITY. FOLLOW-UP IS RECOMMENDED, SYMPTOMS WARRANT. COMMENT: Preliminary report was provided at 0730 hours. Impression dictated by: Selena Reid M.D.03/01/2023 8:13 AM Dictation Location[facility] Recommendations Therapy Recommendations: OT Recommendations OT [...] signed by MD Berhane Trammell> 03/01/23 1424 [facility] Work Phone: Discharge summary Author Angely Lee [facility] March 02, 2023 5:49pm Note Date/Time March 02, 2023 5:43 pm [facility] [address] [place] [address] Discharge Summary Signed Patient: Yonatan Patel MR#: [id number] : 1945 Acct:[id number] Age/Sex: 77 / M Adm Date: 3 Loc: Room: [address] [place] [address]: Angely Lee DO Copies to: [...] signed by Angely Lee DO> 03/02/23 1749 [facility] Work Phone: evaluation + Plan note No data available for this section General Surgery [place] Evaluation + Plan note Future Appointments Appointment Date:09/02/2023 02:40:00 PM Scheduled Provider:Angely OCAMPO MD Location:[facility] Appointment Type: Post Op 15 General Surgery [place] evaluation noteNo assessment information available [facility] Work Phone: evalulbzwl noteNo InformationNort Retrace Other evaluejotl note* Diagnosis Onset Date Resolution Status Bilateral leg pain acute Numbness of left hand acute [facility] Work Phone: Evaluation note* Diagnosis Onset Date Resolution Status Adverse drug effect acute Altered mental status acute COVID acute Hypertension acute Lab test positive for detection of COVID-19 virus acute Neuropathy acute [facility] Work Phone: Evaluation note* Diagnosis Onset Date Resolution Status GREYSON (generalized anxiety disorder) acute GERD (gastroesophageal reflux disease) acute Hypercholesteremia acute Hypertension acute Peripheral polyneuropathy [place] Primary insomnia acute [facility] Work Phone: Evaluation note* Diagnosis Onset Date Resolution Status GREYSON (generalized anxiety disorder) acute GERD (gastroesophageal reflux disease) acute Hypercholesteremia acute Hypertension acute Peripheral polyneuropathy [place] Primary insomnia acute GREYSON (generalized anxiety disorder) acute Hypertension acute Irritable bowel syndrome with constipation acute Acute prostatitis noneactive ASHD (arteriosclerotic heart disease) acute GREYSON (generalized anxiety disorder) acute Hypercholesteremia acute Hypertension acute Irritable bowel syndrome with constipation acute Peripheral polyneuropathy ac [facility] Work Phone: Evaluation note* Diagnosis Onset Date Resolution Status GREYSON (generalized anxiety disorder) acute Hypertension acute Irritable bowel syndrome with constipation acute Acute prostatitis noneactive ASHD (arteriosclerotic heart disease) acute GREYSON (generalized anxiety disorder) acute Hypercholesteremia acute Hypertension acute Irritable bowel syndrome with constipation acute Peripheral polyneuropathy ac [facility] Work Phone: Evaluation note* Diagnosis Onset Date Resolution Status Ascending aortic aneurysm ac [place] ASHD (arteriosclerotic heart disease) acute GREYSON (generalized anxiety disorder) acute Hypercholesteremia acute Hypertension acute Irritable bowel syndrome with constipation acute Peripheral polyneuropathy [place] Abdominal pain acute Benign prostatic hyperplasia with lower urinary tract symptoms acute Polyuria acute [facility] Work Phone: Evaluation note* Diagnosis Onset Date Resolution Status Ascending aortic aneurysm [place] ASHD (arteriosclerotic heart disease) acute GREYSON (generalized anxiety disorder) acute Hypercholesteremia acute Hypertension acute Irritable bowel syndrome with constipation acute Peripheral polyneuropathy [place] Abdominal pain acute Benign prostatic hyperplasia with lower urinary tract symptoms acute Polyuria acute COVID acute [facility] Work Phone: Evaluation note* Diagnosis Onset Date Resolution Status Abdominal pain acute Benign prostatic hyperplasia with lower urinary tract symptoms acute Polyuria acute COVID acute Ascending aortic aneurysm [place] ASHD (arteriosclerotic heart disease) acute GREYSON (generalized anxiety disorder) acute Hypercholesteremia acute Hypertension acute Irritable bowel syndrome with constipation acute Peripheral polyneuropathy ac [facility] Work Phone: Evaluation note* Diagnosis Primary [...] stage (CMS/HCC) [facility] Diagnosis Blepharitis of upper and lower eyelids of both eyes, unspecified type- Primary Diplopia Dry eyes Unspecified tear film insufficiency PCO (posterior capsular opacification), bilateral Unspecified after-cataract Primary open angle glaucoma (POAG) of both eyes, moderate stage [facility] Diagnosis Primary open angle glaucoma (POAG) of both eyes, moderate stage- Primary [facility]* Diagnosis Primary open angle glaucoma (POAG) of both eyes, moderate stage documented in this encounter [facility] Healthcare[facility] and physical note Author Bobo Villagomez [facility] March 01, 2023 9:50am Note Date/Time March 01, 2023 9:50 am [facility] [address] [place] [address] Hospitalist H&P Signed Patient: Yonatan Patel MR#: [id number] : 1945 Acct:[id number] Age/Sex: 77 / M Adm Date: 3 Loc: Room: [address] [place] [address] Type: ADM INOo Attending Dr: Bobo Villagomez [...] mentioned elsewhere in the documentation [facility] Medical History Cataract Hypercholesteremia Hypertension Surgical History [...] % (Auto) 23.7 % (.) 03/01/23 07:06 [place] % (Auto) 8.3 % (.) 03/01/23 07:06 Eos % (Auto) 1.4 % (.) 03/01/23 07:06 Baso % (Auto) 0.7 % (.) 03/01/23 07:06 Nucleat RBC Rel Count 0.3 /100 WBC (0-0.5) 03/01/23 07:06 Neut # (Auto) 3.5 x10E3/uL (1.8-7.7) 03/01/23 07:06 Lymph # (Auto) 1.3 x10E3/uL (1.00-4.8) 03/01/23 07:06 Valencia # (Auto) 0.4 x10E3/uL (0.0-0.8) 03/01/23 07:06 [...] pH 7.5 (5.0-9.0) 03/01/23 07:49 Ur Specific Maynard 1.014 (1.001-1.030) 03/01/23 07:49 Urine Protein Negative [...] signed by Bobo Villagomez MD> 03/01/23 0950 [facility] Work Phone: Hiscjih general Narrative - Reported* Type Description Date Medical History hypercholesterolemia Medical History hypertension Medical History anxiety Medical History Esophageal reflux Medical History glaucoma Medical History neuropathy Surgical History heart catheterization Surgical History shoulder surgery Surgical History colonoscopy with polyp resectio n 08/27/21 Surgical History EGD 08/27/21 Hospitalization History see above [facility] Other Hisjwdn general Narrative - Reported* Type Description Date Medical History hypercholesterolemia Medical History hypertension Medical History anxiety Medical History Esophageal reflux Medical History glaucoma Medical History neuropathy Surgical History heart catheterization Surgical History shoulder surgery Surgical History colonoscopy with polyp resectio n 08/27/22 Surgical History EGD 08/27/22 Hospitalization History see above [facility] Other Hissvor general Narrative - Reported* Type Description Date Medical History hypercholesterolemia Medical History hypertension Medical History anxiety Medical History Esophageal reflux Medical History glaucoma Medical History neuropathy Surgical History heart catheterization Surgical History shoulder surgery Surgical History colonoscopy with polyp resectio n 08/27/22 Surgical History EGD 08/27/22 Surgical History Left Inguinal Hernia Repair 08/18 024 Hospitalization History see above [facility] Other Hospital Discharge instructions Additional Instructions DISCHARGE [...] follow up with PCP - Office number [phone]. [facility] Work Phone: Hospital Discharge instructions No data available for this section General Surgery [place] Progress note Author Berhane Trammell [facility] March 02, 2023 3:27pm Note Date/Time March 02, 2023 3:23 pm [facility] [address] [place] [address] Neurology Progress Note Signed Patient: Yonatan Patel MR#: [id number] : 1945 Acct:[id number] Age/Sex: 77 / M Adm Date: 3 Loc: Room: [address] [place] [address] Type: ADM INOo Attending Dr: Angely Lee [...] signed by MD Berhane Trammell> 03/02/23 1527 [facility] Work Phone: Progress note No data available for this section General Surgery [place] Reason for referral (narrative)* Reason Referral for left in direct inguinal hernia Diagnosis 1 Indirect left inguin al hernia (K40.90) Referral Organization [facility] Referring Provider First Name Cisco Referring Provider Last Name Abbe Referring Provider Specialty Internal Me dicine [facility]erred Organization [facility] Referred Provider Angely Ocampo Ref[place] Address [address] [place] [place], [place],[address] Referred Provider Specialty Surgery Referral Priority Urgent General Notes Mr. Patel has a left indirect inguinal hernia w/ intermittent episodes of increased pain, abdominal distention and nausea. He has experienced 3-4 of these episodes in the past 2 weeks, with increased intensity and duration of pain. A recent episode was associated w/ a transient fever and chills. [facility] Other Reason for visit NarrativeERROR/Gastro referral issue [facility] Other Chief Complaint and Reason for Visit [...] Date Carpal tunnel syndrome of left wrist Jun 11:35am Chronic venous insufficiency of lower ex tremity July 11, 2024 11:35am Swelling of both lower extremities Novem 2023 11:35am Ascending aortic aneurysm September 01, 2024 8:40am ASHD (arteriosclerotic heart disease) [facility] 2024 8:40am Chronic venous insufficiency of lower ex tremity September 01, 2024 8:40am GREYSON (generalized anxiety disorder) [facility] 2024 8:40am Hypercholesteremia September 01, 2024 8 :40am Hypertension September 01, 2024 8 :40am Irritable bowel syndrome with constipati on September 01, 2024 8:40am Medicare annual wellness visit, subseque nt September 01, 2024 8:40am Peripheral polyneuropathy September 01, 2024 8:40am Screening PSA (prostate specific antigen ) September 01, 2024 8:40am Chief Complaint Admit Date leg swelling July 11, 2024 11:35am Wellness September 01, 2024 8 :40am R Ankle Dots/Pain September 07, 2024 9 :20am Chief Complaint Admit Date leg swelling July 11, 2024 11:35am Wellness September 01, 2024 8 :40am R Ankle Dots/Pain September 07, 2024 9 :20am 1 week f/u September 14, 2024 8 :13am Reason for Visit Admit Date Carpal tunnel syndrome of left wrist Jun 11:35am Chronic venous insufficiency of lower ex tremity July 11, 2024 11:35am Swelling of both lower extremities Novem 2023 11:35am Ascending aortic aneurysm September 01, 2024 8:40am ASHD (arteriosclerotic heart disease) [facility] 2024 8:40am Chronic venous insufficiency of lower ex tremity September 01, 2024 8:40am GREYSON (generalized anxiety disorder) [facility] ry 2024 8:40am Hypercholesteremia September 01, 2024 8 :40am Hypertension September 01, 2024 8 :40am Irritable bowel syndrome with constipati on September 01, 2024 8:40am Medicare annual wellness visit, subseque nt September 01, 2024 8:40am Peripheral polyneuropathy September 01, 2024 8:40am Screening PSA (prostate specific antigen ) September 01, 2024 8:40am Chronic venous insufficiency of lower ex tremity September 07, 2024 9:20am Lower extremity ulceration September 07, 2024 9:20am Swelling of both lower extremities [facility] 2024 9:20am Chronic venous insufficiency of lower ex tremity September 14, 2024 8:13am Lower extremity ulceration September 14, 2024 8:13am Swelling of both lower extremities [facility] ry 2024 8:13am Chief Complaint Admit Date leg swelling July 11, 2024 11:35am Wellness September 01, 2024 8 :40am R Ankle Dots/Pain September 07, 2024 9 :20am 1 week f/u September 14, 2024 8 :13am leg blisters September 21, 2024 9 :40am Chief Complaint Admit Date Wellness September 01, 2024 8 :40am R Ankle Dots/Pain September 07, 2024 9 :20am 1 week f/u September 14, 2024 8 :13am leg blisters September 21, 2024 9 :40am Ear Cleaning October 28, 2024 11: 43am Reason for Visit Admit Date Ascending aortic aneurysm September 01, 2024 8:40am ASHD (arteriosclerotic heart disease) [facility] 2024 8:40am Chronic venous insufficiency of lower ex tremity September 01, 2024 8:40am GREYSON (generalized anxiety disorder) [facility] 2024 8:40am Hypercholesteremia September 01, 2024 8 :40am Hypertension September 01, 2024 8 :40am Irritable bowel syndrome with constipati on September 01, 2024 8:40am Medicare annual wellness visit, subseque nt September 01, 2024 8:40am Peripheral polyneuropathy September 01, 2024 8:40am Screening PSA (prostate specific antigen ) September 01, 2024 8:40am Chronic venous insufficiency of lower ex tremity September 07, 2024 9:20am Lower extremity ulceration September 07, 2024 9:20am Swelling of both lower extremities [facility] 2024 9:20am Chronic venous insufficiency of lower ex tremity September 14, 2024 8:13am Lower extremity ulceration September 14, 2024 8:13am Swelling of both lower extremities [facility] 2024 8:13am Chronic venous insufficiency of lower ex tremity September 21, 2024 9:40am Lower extremity ulceration September 21, 2024 9:40am Swelling of both lower extremities [facility] 2024 9:40am Chief Complaint Admit Date Wellness September 01, 2024 8 :40am R Ankle Dots/Pain September 07, 2024 9 :20am 1 week f/u September 14, 2024 8 :13am leg blisters September 21, 2024 9 :40am Ear Cleaning October 28, 2024 11: 43am Sores in Mouth November 15, 2024 2:40 pm Reason for Visit Admit Date Ascending aortic aneurysm September 01, 2024 8:40am ASHD (arteriosclerotic heart disease) [facility] 2024 8:40am Chronic venous insufficiency of lower [...] specific antigen ) September 01, 2024 8:40am Chronic venous insufficiency of lower ex tremity September 07, 2024 9:20am Lower extremity ulceration September 07, 2024 9:20am Swelling of both lower extremities [facility] 2024 9:20am Chronic venous insufficiency of lower ex tremity September 14, 2024 8:13am Lower extremity ulceration September 14, 2024 8:13am Swelling of both lower extremities [facility] ry 2024 8:13am Chronic venous insufficiency of lower ex tremity September 21, 2024 9:40am Lower extremity ulceration September 21, 2024 9:40am Swelling of both lower extremities Febru nehal 2024 9:40am Chronic venous insufficiency of lower ex tremity October 28, 2024 11:43am Lower extremity ulceration October 28 11:43am Cerumen impaction October 28, 2024 11: 43am Chief Complaint Admit Date 1 week f/u September 14, 2024 8 :13am leg blisters September 21, 2024 9 :40am Ear Cleaning October 28, 2024 11: 43am Sores in Mouth November 15, 2024 2:40 pm blocked ears/ear drainage December 12 2:21pm Reason for Visit Admit Date Chronic venous insufficiency of lower ex tremity September 14, 2024 8:13am Lower extremity ulceration September 14, 2024 8:13am Swelling of both lower extremities [facility] ry 2024 8:13am Chronic venous insufficiency of lower ex tremity September 21, 2024 9:40am Lower extremity ulceration September 21, 2024 9:40am Swelling of both lower extremities Febru nehal2024 9:40am Chronic venous insufficiency of lower ex tremity October 28, 2024 11:43am Lower extremity ulceration October 28 025 11:43am Cerumen impaction October 28, 2024 11: 43am Aphthous ulcer of mouth November 15, 2024 2:40pm Hypertension November 15, 2024 2:40 pm Chief Complaint Admit Date Ear Cleaning October 28, 2024 11: 43am Sores in Mouth November 15, 2024 2:40 pm blocked ears/ear drainage December 12 2:21pm 4 month f/u December 28, 2024 8:18a m Reason for Visit Admit Date Chronic venous insufficiency of lower ex tremity October 28, 2024 11:43am Lower extremity ulceration October 28 025 11:43am Cerumen impaction October 28, 2024 11: 43am Aphthous ulcer of mouth November 15, 2024 2:40pm Hypertension November 15, 2024 2:40 pm SNHL (sensorineural hearing loss) December 12, 2024 2:21pm Bleeding from left ear December 12, 2024 2:21pm External otitis of left ear December 12, 2024 2:21pm Ascending aortic aneurysm December 28, 2024 8:18am ASHD (arteriosclerotic heart disease) Ma y 2024 8:18am Chronic venous insufficiency of lower ex tremity December 28, 2024 8:18am GREYSON (generalized anxiety disorder) December 152024 8:18am Hypercholesteremia December 28, 2024 8:18a m Hypertension December 28, 2024 8:18a m Irritable bowel syndrome with constipati on December 28, 2024 8:18am Peripheral polyneuropathy December 28, 2024 8:18am Chief Complaint Admit Date Ear Cleaning October 28, 2024 11: 43am Sores in Mouth November 15, 2024 2:40 pm blocked ears/ear drainage December 12 2:21pm 4 month f/u December 28, 2024 8:18a m possible hernia/referral January 03, 2025 2:21pm right ear feels clogged January 26, 2025 8:30am Reason for Visit Admit Date Chronic venous insufficiency of lower ex tremity October 28, 2024 11:43am Lower extremity ulceration October 28, 2 025 11:43am Cerumen impaction October 28, 2024 11: 43am Hypertension November 15, 2024 2:40 pm Aphthous ulcer of mouth November 15, 2024 2:40pm SNHL (sensorineural hearing loss) December 12, 2024 2:21pm Bleeding from left ear December 12, 2024 2:21pm External otitis of left ear December 12, 2024 2:21pm Ascending aortic aneurysm December 28, 2024 8:18am ASHD (arteriosclerotic heart disease) Grant y 2024 8:18am Chronic venous insufficiency of lower ex tremity December 28, 2024 8:18am GREYSON (generalized anxiety disorder) December 152024 8:18am Hypercholesteremia December 28, 2024 8:18a m Hypertension December 28, 2024 8:18a m Irritable bowel syndrome with constipati on December 28, 2024 8:18am Peripheral polyneuropathy December 28, 2024 8:18am Ulnar neuropathy at elbow of left upper extremity December 28, 2024 8:18am Abdominal pain January 03, 2025 2:21p m H/O bilateral inguinal hernia repair January 03, 2025 2:21pm Inguinal hernia of right andra e without obstruction or gangrene January 03, 2025 2:21pm Family History Relationship Condition Age at Onset [...] Advance Directives No August 27, 2022 9:28am Advance Directive Response Recorded Date/ Time Advance Directives No October 26 025 2:00pm Summary Purpose Additional Source Comments Care Teams [...] Inactive Member Role Status Adriana Nicholson DO Attending Provider Active Sta rt: August 28, 2023 End: August 28, 2023 Team Status: Inactive Member Role Status Adriana Nicholson DO Attending Provider Active Sta rt: [...] Bobo Villagomez MD Admit Provider, Attending Provi jaenette Active Berhane Trammell MD Other Provider Active [...] November 27, 2023 End: November 27, 2023 Director Public Relationship Specialty Start Date End Date Cisco Nicholson MD [address] [facility] [place] [address] PCP - General Internal Medicine 04/09/23 Director Public Relationship Specialty Start Date End Date Cisco Nicholson MD [address] [facility] [place] [id number] PCP - General Internal Medicine 04/09/23 Director Public Relationship Specialty Start Date End Date Cisco Nicholson MD [address] [facility] [place] [address] PCP - General Internal Medicine 04/09/23 Director Public Relationship Specialty Start Date End Date Cisco Nicholson MD [address] [facility] [place] [address] PCP - General Internal Medicine 04/09/23 Team Status: Inactive Member Role Status Dates Cisco Nicholson DO Primary Care Provide r, Attending Provider Active Start: July 11, 2024 End: July 11, 2024 Team Status: Inactive Member Role Status Dates Cisco Nicholson DO Primary Care Provide r, Attending Provider Active Start: September 01, 2024 End: September 01, 2024 Team Status: Active Member Role Status Dates Cisco Nicholson DO Primary Care Provide r, Attending Provider Active Start: September 02, 2024 Team Status: Inactive Member Role Status Dates Cisco Nicholson DO Primary Care Provide r, Attending Provider Active Start: September 07, 2024 End: September 07, 2024 Team Status: Inactive Member Role Status Dates Cisco Nicholson DO Primary Care Provide r, Attending Provider Active Start: September 14, 2024 End: September 14, 2024 Team Status: Inactive Member Role Status Dates Cisco Nicholson DO Primary Care Provide r, Attending Provider Active Start: September 21, 2024 End: September 21, 2024 Team Status: Inactive Member Role Status Dates Cisco Nicholson DO Primary Care Provide r, Attending Provider Active Start: October 28, 2024 End: October 28, 2024 Team Status: Inactive Member Role Status Dates Cisco Nicholson DO Primary Care Provide r, Attending Provider Active Start: November 15, 2024 End: November 15, 2024 Team Status: Inactive Member Role Status Dates Cisco Nicholson DO Primary Care Provide r, Attending Provider Active Start: December 12, 2024 End: December 12, 2024 Team Status: Inactive Member Role Status Dates Cisco Nicholson DO Primary Care Provide r, Attending Provider Active Start: December 28, 2024 End: December 28, 2024 Director Public Relationship Specialty Start Date End Date Cisco Nicholson DO [address] [facility] [place] [address] PCP - General Internal Medicine 04/09/23 Director Public Relationship Specialty Start Date End Date Cisco Nicholson DO [address] [place] [address] PCP - General Internal Medicine 04/09/23 Director Public Relationship Specialty Start Date End Date Cisco Nicholson DO [address] [facility] [place] [address] PCP - General Internal Medicine 04/09/23 Team Status: Inactive Member Role Status Dates Cisco Nicholson DO Primary Care Provide r, Attending Provider Active Start: January 03, 2025 End: January 03, 2025 Team Status: Active Member Role Status Dates Cisco Nicholson DO Primary Care Provide r, Attending Provider Active Start: January 06, 2025 Team Status: Inactive Member Role Status Dates Cisco Nicholson DO Primary Care Provide r, Attending Provider Active Start: January 26, 2025 End: January 26, 2025 Director Public Relationship Specialty Start Date End Date Cisco Nicholson DO [address] [facility] [place] [address] PCP - General Internal Medicine 04/09/23 (unrecognized sect ion and content) No Status Records FoundNo Status Records FoundNo Status Records FoundNo Status Records FoundNo Status Records FoundNo Status Records Found INFORMATION SOURCE (unrecogn ized section and content) DATE CREATED AUTHOR 09/16/2022 [facility] DATE CREATED AUTHOR AUTHOR'S ORGANIZ ATION 03/05/2023 [facility] DATE CREATED AUTHOR AUTHOR'S ORGANIZ ATION 06/25/2023 [facility] DATE CREATED AUTHOR AUTHOR'S ORGANIZ ATION 08/25/2023 Modesto Gomez [facility] DATE CREATED AUTHOR AUTHOR'S ORGANIZ ATION 12/14/2024 [facility] DATE CREATED AUTHOR AUTHOR'S ORGANIZ ATION 01/13/2025 [facility] EPIC REASON FOR VISIT (unrecogniz ed section and content) Reason Comments Med Refill Reason Comments Follow-up Glaucoma Reason Onset Date Comments Med Refill 07/28/2024 Reason Comments Glaucoma Reason Onset Date Comments Med Refill 01/12/2025 Goals (unrecognized section and content) Goals may [...] BE BASED ON THE PRIMARY CLINICAL RECORDS. [facility]. provides no warranty or guarantee of the accuracy or completeness of information in this document.
--- NOTE | 2025-02-12 18:29 | XR_ITS ---
The [address] [address] Patient Name: JOSE PATEL MRN: [id number] date: 1945 Sex: M Assigned Patient Location: ER Current Patient Location: ER Accession/Order Number: [id number] Exam Date: 02/12/2025 18:49 Report Date: 02/12/2025 18:50 At the request of: MELANIE FAJARDO Procedure: XR chest 1V PA CHEST: CLINICAL HISTORY: short of breath COMPARISON: 08/07/2023 FINDINGS: Unremarkable cardiac mediastinal silhouette. No focal airspace opacity, effusion or pneumothorax. Postsurgical changes right humerus with tendon anchor. XR/XR chest 1V IMPRESSION: NEGATIVE ACUTE PLEURAL-PARENCHYMAL DISEASE. Impression dictated by: Sherman Peter M.D. 02/12/2025 6:50 PM Dictation Location: [place] [address] Electronically authenticated by: [id number] Y Date: 02/12/2025 18:50
--- NOTE | 2025-02-12 18:29 | ECG_ITS ---
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 Measurements Intervals [place] Rate: 66 P: 76 CO: 154 QRS: 72 QRSD: 72 T: -30 QT: 358 QTc: 371 Interpretive Statements 1100 Sinus rhythm 3433 Septal myocardial infarction, probably old 9150 abnormal ECG Compared to ECG 08/23/2023 18:39:33 ST (T wave) deviation no longer present Possible ischemia no longer present Electronically Signed On 02-13-2025 6:56:33 EDT by JUANITA BURTON M.D.
[2025-02-12 18:38] LABS: Basophils Percent Auto 0.5 % (0.2-2.0); Eosinophils Absolute Auto 0.1 10^3/uL (0.0-0.7); Hemoglobin 14.7 g/dL (14.0-18.0); Immature Granulocytes Abs Auto 0.01 10^3/uL (0.00-0.03); Immature Granulocytes Pct Auto 0.2 % (0.0-0.5); Lymphocytes Absolute Auto 1.5 10^3/uL (1.2-3.8); Lymphocytes Percent Auto 24.4 % (20.5-60.0); Mean Corpuscular HGB Conc 34.2 g/dL (29.9-35.2); Mean Corpuscular Hemoglobin 29.9 pg (25.9-34.0); Mean Corpuscular Volume 87.6 fL (80.0-94.0); Mean Platelet Volume 10.1 fL (9.5-13.5); Monocytes Absolute Auto 0.7 10^3/uL (0.3-0.8); Monocytes Percent Auto 10.9 % (1.7-12.0); Neutrophils Absolute Auto 3.8 10^3/uL (1.4-6.5); Platelet Count 179 10^3/uL (150-450); Red Blood Count 4.91 10^6/uL (4.70-6.10); Red Cell Distribution Width 14.2 % (11.0-15.0)
[2025-02-12 18:52] LABS: Alanine Aminotransferase 44 U/L (16-63); Albumin Globulin Ratio 1.3; Albumin Level 3.9 g/dL (3.4-5.0); Alkaline Phosphatase 75 U/L (46-116); Anion Gap 17.8; Aspartate Amino Transferase 38 U/L (15-37); BUN Creatinine Ratio 20.4; Bilirubin Total 1.5 mg/dL (0.2-1.0); Calcium 9.9 mg/dL (8.5-10.1); Carbon Dioxide 22.4 mmol/L (21.0-32.0); Chloride 106 mmol/L (98-107); Estimated GFR (African America >60 (>=60 mL/min/1.73m^2); Estimated GFR (Non-African Ame >60 (>=60 mL/min/1.73m^2); Glucose 106 mg/dL (74-106); Potassium 4.2 mmol/L (3.5-5.1); Sodium 142 mmol/L (136-145); Total Protein 6.9 g/dL (6.4-8.2)
[2025-02-12 18:53] LABS: INR 1.08; Partial Thromboplastin Time 27.6 sec (22.3-36.2); Prothrombin Time 11.4 sec (9.0-11.6)
[2025-02-12] MEDS: ONDANSETRON PF 4 MG/2 ML VIAL IV (18:57)
[2025-02-12] MEDS: DIAZEPAM 10 MG/2 ML SYRINGE 5 MG IV (18:57)
[2025-02-12] MEDS: 0.9 % SODIUM CHLORIDE 1,000 ML 500 ML IV (18:57)
[2025-02-12 19:00] LABS: Troponin I High Sensitivity 7.3 pg/mL (4.0-76.1)
[2025-02-12 19:12] LABS: Bilirubin Urine NEGATIVE (NEGATIVE); Blood Urine NEGATIVE (NEGATIVE); Clarity Urine CLEAR (CLEAR); Color Urine LT. YELLOW (YELLOW); Glucose Urine UA NEGATIVE (NEGATIVE); Ketones Urine NEGATIVE (NEGATIVE); Leukocyte Esterase Urine NEGATIVE (NEGATIVE); Nitrite Urine NEGATIVE (NEGATIVE); Protein Urine NEGATIVE (NEG/TRACE); Specific Gravity Urine 1.015 (1.005-1.025); Urobilinogen Urine 0.2 EU/dL (0.2-1.0); pH Urine 7.5 (5.0-9.0)
[2025-02-12 19:20] LABS: Bacteria Urine TRACE #/HPF (NONE SEEN); Cast Seen? NONE SEEN #/LPF (NONE SEEN); Crystals Seen? None Seen #/HPF (None Seen); Mucus Urine NONE SEEN (NONE SEEN); RBC Urine NONE SEEN #/HPF (0-2); Squamous Epithelial Cell Urine RARE #/LPF (NONE/RARE); WBC Urine 0-2 #/HPF (NONE SEEN)
--- NOTE | 2025-02-12 19:30 | ED_ITS ---
HPI HPI - General Adult General Chief complaint: Syncope Stated complaint: weak/sob Time Seen by Provider: 02/12/25 18:29 Source: patient Mode of arrival: Wheelchair History of Present Illness HPI narrative: 79-year-old male presents here with a chief complaint of shortness of breath and burning in his feet. Patient has a history of anxiety and stress. He states his symptoms are similar to previous attacks. He states he also has a history of neuropathy. He states he was sitting outside in the garage was the door open in the breeze and he started to have attack . Patient denies chest pain. He seems anxious upon arrival. Son is here at bedside and states he believes he is also having anxiety or stress reaction. Patient's vital signs are stable. Related Data Home Medications ?Medication ?Instructions ?Recorded ?Confirmed atorvastatin 80 mg tablet 80 mg PO DAILY 06/19/2311/07 buspirone 15 mg tablet 15 mg PO BID 06/19/23 gabapentin 300 mg capsule 300 mg PO QID 06/19/2308/19 metoprolol tartrate 25 mg tablet 12.5 mg PO Q12H 06/1908/19/23 temazepam 15 mg capsule 15 mg PO DAILY 06/19/2311/07 aspirin 81 mg tablet,delayed 81 mg PO DAILY 08/07/23 0 08/19/23 release (Adult Aspirin Regimen) brinzolamide 1 %-brimonidine 0.2 % drp ophthalmic (eye ) BID 08/07/23 eye drops,suspension (Simbrinza) latanoprost 0.005 % eye drops drp ophthalmic (eye) QPM 08/07/23 multivitamin (Daily Multi-Vitamin 1 tab PO DAILY 08/0708/19/23 tablet) Previous Rx's ?Medication ?Instructions ?Recorded tramadol 50 mg tablet 50 mg PO Q6H PRN pain #7 tab s 08/19/23 ondansetron 4 mg disintegrating 4 mg PO Q6H PRN nausea and 08/23/23 tablet vomiting #20 tabs Allergies Allergy/AdvReac Type Severity Reaction Status Date / Time nirmatrelvir (From Paxlovid) Allergy mental Verified 08/19/23 22:02 status change ritonavir (From Paxlovid) Allergy mental Verified 08/19/23 22:02 status change Opioid HPI Opioid Management Most Recent Opioid Data: Last Pain Scale 0 11/16/23, 09:03 Review of Systems ROS Status of ROS 10 or more systems reviewed and unremark able except as noted in history and below PFSH PFS Medical History (Updated 02/12/25 @ 19:30 by Natalie Dunn) Insomnia ?G47.00 - Insomnia, unspecified (ICD-10) Neuropathy ?G62.9 - Polyneuropathy, unspecified (ICD-10) Irritable bowel syndrome with constipation ?K58.1 - Irritable bowel syndrome with constipation (ICD-10) GERD (gastroesophageal reflux disease) ?K21.9 - Gastro-esophageal reflux disease without esophagitis (ICD-10) Encephalopathy ?G93.40 - Encephalopathy, unspecified (ICD-10) Cholelithiases ?K80.20 - Calculus of gallbladder without cholecystitis without obstruction (ICD-10) Colon polyp ?K63.5 - Polyp of colon (ICD-10) Glaucoma ?H40.9 - Unspecified glaucoma (ICD-10) Anxiety ?F41.9 - Anxiety disorder, unspecified (ICD-10) Rib fracture (06/2022) ?S22.39XA - Fracture of one rib, unspecified side, initial encounter for closed fracture (ICD-10) Pneumothorax (06/2022) ?J93.9 - Pneumothorax, unspecified (ICD-10) Constipation ?K59.00 - Constipation, unspecified (ICD-10) Inguinal hernia ?K40.90 - Unilateral inguinal hernia, without obstruction or gangrene, not specified as recurrent (ICD-10) Hypertension ?I10 - Essential (primary) hypertension (ICD-10) High cholesterol ?E78.00 - Pure hypercholesterolemia, unspecified (ICD-10) COVID-19 (06/17/23) ?U07.1 - COVID-19 (ICD-10) Surgical History (Updated 08/19/23 @ 09:21 by Anahi Tellez) H/O eye surgery ?Z98.890 - Other specified postprocedural states (ICD-10) History of arthroscopy of shoulder ?Z98.890 - Other specified postprocedural states (ICD-10) History of arthroscopy of shoulder ?Z98.890 - Other specified postprocedural states (ICD-10) History of cardiac catheterization ?Z98.890 - Other specified postprocedural states (ICD-10) History of arthroscopy of shoulder ?Z98.890 - Other specified postprocedural states (ICD-10) History of esophagogastroduodenoscopy (EGD) ?Z98.890 - Other specified postprocedural states (ICD-10) History of colonoscopy ?Z98.890 - Other specified postprocedural states (ICD-10) History of hernia repair ?Z98.890 - Other specified postprocedural states (ICD-10) ?Z87.19 - Personal history of other diseases of the digestive system (ICD-10) Family History (Updated 08/07/23 @ 10:22 by Ingrid Coronel NP) Other Family history of brain cancer Family history of gastric cancer Family history of myocardial infarction Social History (Updated 08/07/23 @ 10:10 by Ingrid Coronel NP) Within the past year, how often did you have a drink containing alcohol: never Score interpretation: A score less than 4 is consistent with normal alcohol consumption. Smoking status: Never smoker Non-prescribed substance use: denies use Previous occupational history: [employer] Highest level of school completed/degree received: high school graduate Little interest or pleasure in doing things: not at all Feeling down, depressed, or hopeless: not at all Exam Narrative Exam Narrative: All Systems are negative except as noted/marked.All systems reviewed and otherwise negative Nurses note and vital signs reviewed and patient is not hypoxic. General: The patient appears anxious. Patient is resting on cart is able to calm when talking Skin: Warm, dry, no pallor noted. There is no rash noted. Head: Normocephalic, atraumatic Eye: Normal conjunctiva, no drainage, EOMI. PERRL Ears, Nose, Mouth, and Throat: oral mucosa is moist. Nares patent. Mouth without vesicles. Ear canals patent. Tm's without Erythema Cardiovascular: Regular Rate and Rhythm Respiratory: Patient is in no distress, no accessory muscle use, lungs are clear to auscultation, no wheezing, rales or rhonchi Back: non-tender, no CVA tenderness bilaterally to percussion. GI: Normal bowel sounds, no tenderness to palpation, no masses appreciated. No rebound, guarding, or rigidity noted. Musculoskeletal: The patient has no evidence of calf tenderness, no pitting edema, symmetrical pulses noted bilaterally Neurological: A&O x4, normal speech Psychiatric: Cooperative Constitutional Vital Signs, click to edit/add: Last Vital Signs Temp 98.1 F 02/12/25 18:13 Pulse 67 02/12/25 19:01 Resp 16 02/12/25 19:01 BP 147/78 H 02/12/25 19:01 Pulse Ox 97 02/12/25 19:01 O2 Del Method Room Air 02/12/25 18:13 Course Vital Signs Vital signs: Vital Signs Temperature 98.1 F 02/12/25 18:13 Pulse Rate 66 02/12/25 18:13 Respiratory Rate 18 02/12/25 18:13 Blood Pressure 171/84 H 02/12/25 18:13 Pulse Oximetry 98 02/12/25 18:13 Oxygen Delivery Method Room Air 02/12/25 18:13 Temperature 98.1 F 02/12/25 18:13 Pulse Rate 67 02/12/25 19:01 Respiratory Rate 16 02/12/25 19:01 Blood Pressure 147/78 H 02/12/25 19:01 Pulse Oximetry 97 02/12/25 19:01 Oxygen Delivery Method Room Air 02/12/25 18:13 Medical Decision Making MDM Narrative Medical decision making narrative: 79-year-old male presents here with a chief complaint of shortness of breath and burning in his feet. Patient has a history of anxiety and stress. He states his symptoms are similar to previous attacks. He states he also has a history of neuropathy. He states he was sitting outside in the garage was the door open in the [facility] and he started to have attack . Patient denies chest pain. He seems anxious upon arrival. Son is here at bedside and states he believes he is also having anxiety or stress reaction. Patient's vital signs are stable. Differential Diagnosis Differential Diagnosis: anxiety, neuoropathy, chest pressure, pain Medical Records Medical records reviewed: Yes I reviewed the patient's medical records Lab Data Lab results reviewed: Yes I reviewed the patient's lab results Labs: Lab Results 02/12/25 02/12/25 Range/Units 18:22 19:05 WBC 6.0 (4.0-11.0) 10^3/uL RBC 4.91 (4.70-6.10) 10^6/uL Hgb 14.7 (14.0-18.0) g/dL Hct 43.0 (42.0-54.0) % MCV 87.6 (80.0-94.0) fL MCH 29.9 (25.9-34.0) pg MCHC 34.2 (29.9-35.2) g/dL RDW 14.2 (11.0-15.0) % Plt Count 179 (150-450) 10^3/uL MPV 10.1 (9.5-13.5) fL Neut % (Auto) 63.0 (43.0-75.0) % Lymph % (Auto) 24.4 (20.5-60.0) % [place] % (Auto) 10.9 (1.7-12.0) % Eos % (Auto) 1.0 (0.9-7.0) % Baso % (Auto) 0.5 (0.2-2.0) % Neut # (Auto) 3.8 (1.4-6.5) 10^3/uL Lymph # (Auto) 1.5 (1.2-3.8) 10^3/uL [place] # (Auto) 0.7 (0.3-0.8) 10^3/uL Eos # (Auto) 0.1 (0.0-0.7) 10^3/uL Baso # (Auto) 0.0 (0.0-0.1) 10^3/uL Abs Immat Gran (auto) 0.01 (0.00-0.03) 10^3/uL Imm/Tot Granulo (auto) 0.2 (0.0-0.5) % PT 11.4 (9.0-11.6) sec INR 1.08 APTT 27.6 (22.3-36.2) sec Sodium 142 (136-145) mmol/L Potassium 4.2 (3.5-5.1) mmol/L Chloride 106 (98-107) mmol/L Carbon Dioxide 22.4 (21.0-32.0) mmol/L Anion Gap 17.8 BUN 22.0 H (7.0-18.0) mg/dL Creatinine 1.08 (0.70-1.30) mg/dL Est GFR ( Amer) >60 (>=60 mL/min/1.73m^2) Est GFR (Non-Af Amer) >60 (>=60 mL/min/1.73m^2) BUN/Creatinine Ratio 20.4 Glucose 106 (74-106) mg/dL Calcium 9.9 (8.5-10.1) mg/dL Total Bilirubin 1.5 H (0.2-1.0) mg/dL AST 38 H (15-37) U/L ALT 44 (16-63) U/L Alkaline Phosphatase 75 (46-116) U/L Troponin I High Sens 7.3 (4.0-76.1) pg/mL NT-Pro-B Natriuret Pep 299.0 (<=1800.0) pg/mL Total Protein 6.9 (6.4-8.2) g/dL Albumin 3.9 (3.4-5.0) g/dL Globulin 3.0 g/dL Albumin/Globulin Ratio 1.3 Urine Color Lt. yellow (YELLOW) Urine Clarity Clear (CLEAR) Urine pH 7.5 (5.0-9.0) Ur Specific [place] 1.015 (1.005-1.025) Urine Protein Negative (NEG/TRACE) mg/dL Urine Glucose (UA) Negative (NEGATIVE) mg/dL Urine Ketones Negative (NEGATIVE) mg/dL Urine Occult Blood Negative (NEGATIVE) Urine Nitrite Negative (NEGATIVE) Urine Bilirubin Negative (NEGATIVE) Urine Urobilinogen 0.2 (0.2-1.0) EU/dL Ur Leukocyte Esterase Negative (NEGATIVE) Urine RBC None seen (0-2) #/HPF Urine WBC 0-2 A (NONE SEEN) #/HPF Ur Squamous Epith Cells Rare (NONE/RARE) #/LPF Urine Crystals None seen (None Seen) #/HPF Urine Bacteria Trace A (NONE SEEN) #/HPF Urine Casts None seen (NONE SEEN) #/LPF Urine Mucus None seen (NONE SEEN) Imaging Data Chest x-ray: Radiologist's impression: ITS Impressions Chest X-Ray 02/12/25 18:29 IMPRESSION: NEGATIVE ACUTE PLEURAL-PARENCHYMAL DISEASE. Impression dictated by: Sherman Peter M.D. 02/12/2025 6:50 PM Dictation Location: [place] [address] Electronically authenticated by: [id number] Y Date: 02/12/2025 18:50 ECG Data Interpretation: 1816 sinus rhythm heart rate 66 bpm CA interval 154 ms QRS duration 72 ms, no ST elevation no STEMI Discharge Plan Discharge Chief Complaint: Syncope Clinical Impression: Anxiety Patient Disposition: Home, Self-Care Time of Disposition Decision: 19:29 Condition: Good Prescriptions / Home Meds: No Action Simbrinza 1-0.2 % drops,suspension OPHTHALMIC (EYE) BID latanoprost 0.005 % drops OPHTHALMIC (EYE) QPM aspirin [Adult Aspirin Regimen] 81 mg tablet,delayed release (DR/EC) 81 mg PO DAILY multivitamin [Daily Multi-Vitamin] Tablet 1 tab PO DAILY tramadol 50 mg tablet 50 mg PO Q6H MDD 200 mg PRN (Reason: pain) Qty: 7 0RF ondansetron 4 mg tablet,disintegrating 4 mg PO Q6H PRN (Reason: nausea and vomiting) Qty: 20 0RF atorvastatin 80 mg tablet 80 mg PO DAILY buspirone 15 mg tablet 15 mg PO BID gabapentin 300 mg capsule 300 mg PO QID metoprolol tartrate 25 mg tablet 12.5 mg PO Q12H temazepam 15 mg capsule 15 mg PO DAILY Print Language: Spanish Instructions: Anxiety (ED) Referrals: Cisco Nicholson DO [Primary Care Provider, Internal Medicine] - 1 week
== END 2025-02-12 19:57 | disposition home or self-care (01) ==
PROVIDERS: Physician Assistant; Emergency Provider Emergency Medicine; PCP Internal Medicine
DX: F41.9 Anxiety disorder, unspecified (principal); G62.9 Polyneuropathy, unspecified; R06.02 Shortness of breath
CPT/HCPCS: 36415; 71045; 80053; 81001; 83880; 84484; 85025; 85610; 85730; 93005; 96374; 96375; 99285; J2405; J3360

== ENCOUNTER 2025-02-21 18:14 | Emergency (ER) | payer MEDICARE, SELFPAY ==
--- OUTSIDE RECORDS SUMMARY | 2025-01-10 08:41 | XMS_ITS ---
Author Name Auto Generated Organization OH[facility] Care Team Providers Care Er Registrar Name Role Phone ZEV CHAVEZ Attending Unavailable MIGUEL ANGEL JACOBSEN Attending Unavailable MIGUEL ANGEL JACOBSEN Attending Unavailable MIGUEL ANGEL JACOBSEN Attending Unavailable PROBLEMS DATE TYPE CONDITION / CODE ATTENDING STATUS [facility] 12/13/2024 Admitting Diagnosis Atherosclerotic heart disease of [place] coronary artery without angina pectoris / I25.10(ICD-10) ZEV CHAVEZ Active [facility] 12/13/2024 Admitting Diagnosis Thoracic aortic ectasia / I77.810(ICD-10) ZEV CHAVEZ Active [facility] PROCEDURES No Procedure Records Found RESULTS OFFICE VISIT Observed: 12/13/2024 11:30 AM Status: COMPLETED Source: [facility] [id number] Jose Peterson [birth year] Date Provider Department Center 12/13/2024 [id number] CHAVEZ [facility] Family History Problem Relation Age of Onset Heart attack Father Heart attack Brother Family Status - Relation Status Age at Mother Father Sister Alive Brother Level of Service:[id number] [place] OFFICE/OUTPATIENT ESTABLISHED MOD MDM 30 MIN PROGRESS Observed: 12/13/2024 11:30 AM Status: COMPLETED Source: [facility] Cardiology Clinic Note Chief Complaint: Patient [...] 5. Follow up with me in the [facility] in 1 to 2 months. 6. [...] 2. Mixed hyperlipidemia 3. Coronary arteriosclerosis in [place] artery 4. Dilated aortic root Plan: Continue [...] a year or sooner should problems arise Zev Chavez MD, MPH, [facility], [facility], [facility] Interventional Cardiology Pager Email: [email or web address] ALLERGIES DATE TYPE / CODE NAME / CODE REACTION SEVERITY SOURCE SYSTEMIC/[id number]( SNOMED CT) NO KNOWN ALLERGIES [facility] ENCOUNTERS ADMIT/DISCHARGE ACCOUNT NUMBER ADMITTING ENCOUNTER CLASS LOCATION SOURCE 01/10/2025/ 5 [id number] Ambulatory Building:[facility] 12/13/2024/ 5 [id number] Ambulatory Building:[facility] 07/05/2024/ 4 [id number] Ambulatory Building:[facility] 02/24/2024/ 4 [id number] Ambulatory Building:[facility] Medical [facility] PAYERS ENCOUNTER GUARANTOR PAYER SUBSCRIBER SOURCE 01/10/2025 JOSE TRACEY: [place], [place] [address]Joy: () () Primary Insurance:MEDICARE Policy Number: [id number] ve Date:8325-82-37Elf n Name:Medicare JOSE TRACEY: [id number] [place] [address] [facility] 01/10/2025 Secondary Insurance:AARWandy cy Number: [id number] ve Date:2022-08-17 JOSEMARTHA PETERSONB: [id number] [place] [address] [facility] 12/13/2024 Primary Insurance:Angelina cy Number: [id number] ve Date:2022-08-17 JOSEMARTHA PETERSONB: [id number] [address] 12/13/2024 Secondary Insurance:MEDICARE Policy Number: [id number] Date:6024-26-84Ocb n Name:Medicare JOSE PETERSONB: [id number] [address] 07/05/2024 JOSEMARTHA PETERSONB: [place], [place] [address]: (HP) (WP) Primary Insurance:MEDICARE Policy Number: [id number] ve Date:2345-80-83Pms n Name:Medicare JOSE PETERSONB: [id number] [address] [facility] 07/05/2024 Secondary Insurance:Angelina cy Number: [id number] ve Date:2022-08-17 JOSEMARTHA PETERSONB: [id number] [place], [place] [address] [place] [address] [facility] 02/24/2024 JOSE Jose PETERSONDOB: [place], [place] [address]Mmn: (HP) (WP) Primary Insurance:MEDICARE Policy Number: [id number] ve Date:8013-81-54Qtx n Name:Medicare JOSE PETERSONB: [id number] [address] [facility] 02/24/2024 Secondary Insurance:AARPPoli cy Number: [id number] ve Date:2022-08-17 JOSE TRACEY: [id number] [place] [address] [facility] EPIC
[2025-02-21] VITALS (22 sets, daily range): BP systolic 136–148; BP diastolic 69–70; PULSE 53–69; TEMP 36.4; O2SAT 97–100; BMI 23.9
--- NOTE | 2025-02-21 18:25 | ECG_ITS ---
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
--- NOTE | 2025-02-21 18:42 | ED.GENADUL1 ---
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 and started sweating all over, he denies any chest pain or any difficulty breathing but he has some nausea no vomiting The patient at this moment is still feeling dizzy and swelling all over He had similar presentation almost few days ago at the end of January and at that time he was diagnosed with anxiety according to his as well as dehydration Patient admits that he does not drink a lot of water he usually drinks a lot of coffee as well Related Data Home Medications ?Medication ?Instructions ?Recorded ?Confirmed atorvastatin 80 mg tablet 80 mg PO DAILY 06/19/23 02/21/25 buspirone 15 mg tablet 15 mg PO BID 06/19/23 02/21/25 gabapentin 300 mg capsule 300 mg PO QID 06/19/23 02/21/25 metoprolol tartrate 25 mg tablet 12.5 mg PO Q12H 06/19/23 02/21/25 temazepam 15 mg capsule 15 mg PO DAILY 06/19/23 02/21/25 aspirin 81 mg tablet,delayed 81 mg PO DAILY 08/07/23 02/21/25 release (Adult Aspirin Regimen) brinzolamide 1 %-brimonidine 0.2 % drp ophthalmic (eye) BID 08/07/23 eye drops,suspension (Simbrinza) latanoprost 0.005 % eye drops drp ophthalmic (eye) QPM 08/07/23 multivitamin (Daily Multi-Vitamin 1 tab PO DAILY 08/07/23 02/21/25 tablet) sertraline 50 mg tablet mg 02/21/25 Previous Rx's ?Medication ?Instructions ?Recorded ondansetron 4 mg disintegrating 4 mg PO Q6H PRN nausea and 08/23/23 tablet vomiting #20 tabs Allergies Allergy/AdvReac Type Severity Reaction Status Date / Time nirmatrelvir (From Paxlovid) Allergy mental Verified 02/21/25 18:31 status change ritonavir (From Paxlovid) Allergy mental Verified 02/21/25 18:31 status change Opioid HPI Opioid Management Most Recent Opioid Data: Last Pain Scale 0 11/16/23, 09:03 Review of Systems ROS Status of ROS 10 or more systems reviewed and unremarkable except as noted in history and below [facility] History (Updated 02/12/25 @ 19:30 by Natalie Dunn) Insomnia ?G47.00 - Insomnia, unspecified (ICD-10) Neuropathy ?G62.9 - Polyneuropathy, unspecified (ICD-10) Irritable bowel syndrome with constipation ?K58.1 - Irritable bowel syndrome with constipation (ICD-10) GERD (gastroesophageal reflux disease) ?K21.9 - Gastro-esophageal reflux disease without esophagitis (ICD-10) Encephalopathy ?G93.40 - Encephalopathy, unspecified (ICD-10) Cholelithiases ?K80.20 - Calculus of gallbladder without cholecystitis without obstruction (ICD-10) Colon polyp ?K63.5 - Polyp of colon (ICD-10) Glaucoma ?H40.9 - Unspecified glaucoma (ICD-10) Anxiety ?F41.9 - Anxiety disorder, unspecified (ICD-10) Rib fracture (06/2022) ?S22.39XA - Fracture of one rib, unspecified side, initial encounter for closed fracture (ICD-10) Pneumothorax (06/2022) ?J93.9 - Pneumothorax, unspecified (ICD-10) Constipation ?K59.00 - Constipation, unspecified (ICD-10) Inguinal hernia ?K40.90 - Unilateral inguinal hernia, without obstruction or gangrene, not specified as recurrent (ICD-10) Hypertension ?I10 - Essential (primary) hypertension (ICD-10) High cholesterol ?E78.00 - Pure hypercholesterolemia, unspecified (ICD-10) COVID-19 (06/17/23) ?U07.1 - COVID-19 (ICD-10) Surgical History (Updated 08/19/23 @ 09:21 by Anahi Tellez) H/O eye surgery ?Z98.890 - Other specified postprocedural states (ICD-10) History of arthroscopy of shoulder ?Z98.890 - Other specified postprocedural states (ICD-10) History of arthroscopy of shoulder ?Z98.890 - Other specified postprocedural states (ICD-10) History of cardiac catheterization ?Z98.890 - Other specified postprocedural states (ICD-10) History of arthroscopy of shoulder ?Z98.890 - Other specified postprocedural states (ICD-10) History of esophagogastroduodenoscopy (EGD) ?Z98.890 - Other specified postprocedural states (ICD-10) History of colonoscopy ?Z98.890 - Other specified postprocedural states (ICD-10) History of hernia repair ?Z98.890 - Other specified postprocedural states (ICD-10) ?Z87.19 - Personal history of other diseases of the digestive system (ICD-10) Family History (Updated 08/07/23 @ 10:22 by Ingrid Coronel NP) Other Family history of brain cancer Family history of gastric cancer Family history of myocardial infarction Social History (Updated 08/07/23 @ 10:10 by Ingrid Coronel NP) Within the past year, how often did you have a drink containing alcohol: never Score interpretation: A score less than 4 is consistent with normal alcohol consumption. Smoking status: Never smoker Non-prescribed substance use: denies use Previous occupational history: [employer] Highest level of school completed/degree received: high school graduate Little interest or pleasure in doing things: not at all Feeling down, depressed, or hopeless: not at all Exam Narrative Exam Narrative: Nurses notes and vital signs reviewed and patient is not hypoxic. General: Well-appearing and in no apparent distress. Skin: Warm, dry, no pallor noted. No rash. Head: Normocephalic, atraumatic. Neck: Supple, non-tender. Eye: Pupils are equal, round and EOMI. No scleral icterus. Cardiovascular: Regular Rate and Rhythm without murmur, gallop or rub. Respiratory: No accessory muscle use or respiratory distress. Lungs are clear to auscultation, no wheezing, rales or rhonchi Chest Wall: no tenderness Back: No midline thoracic or lumbar vertebral tenderness. No CVA tenderness Musculoskeletal: normal ROM, no calf or popliteal tenderness, no lower extremity edema/swelling GI: Abdomen is soft, non-distended. Normal bowel sounds. No masses appreciated. No tenderness to palpation. No rebound, guarding, or rigidity noted. Neurological: A&O x4. No cranial nerve dysfunction observed. No truncal ataxia. Moves all extremities. Sensation intact. Psychiatric: Cooperative and interactive. Normal mood and affect. Constitutional Vital Signs, click to edit/add: Last Vital Signs Temp 97.6 F 02/21/25 18:17 Pulse 55 L 02/21/25 18:17 Resp 20 02/21/25 18:17 BP 148/69 H 02/21/25 18:17 Pulse Ox 99 02/21/25 18:17 O2 Del Method Room Air 02/21/25 18:17 Course Vital Signs Vital signs: Vital Signs Temperature 97.6 F 02/21/25 18:17 Pulse Rate 55 L 02/21/25 18:17 Respiratory Rate 02/21/25 18:17 Blood Pressure 148/69 H 02/21/25 18:17 Pulse Oximetry 99 02/21/25 18:17 Oxygen Delivery Method Room Air 02/21/25 18:17 Temperature 97.6 F 02/21/25 18:17 Pulse Rate 55 L 02/21/25 18:17 Respiratory Rate 02/21/25 18:17 Blood Pressure 148/69 H 02/21/25 18:17 Pulse Oximetry 99 02/21/25 18:17 Oxygen Delivery Method Room Air 02/21/25 18:17 Medical Decision Making MDM Narrative Medical decision making narrative: The patient EKG in the ER showing sinus rhythm with a heart rate of [address] elevation or depression The patient had a blood workup including CBC chemistry and troponin pending Discharge Plan Discharge Patient Disposition: Still a Patient
[2025-02-21 18:52] LABS: Hematocrit 42.4 % (42.0-54.0); Hemoglobin 14.5 g/dL (14.0-18.0); Immature Granulocytes Abs Auto 0.02 10^3/uL (0.00-0.03); Immature Granulocytes Pct Auto 0.3 % (0.0-0.5); Lymphocytes Absolute Auto 1.0 10^3/uL (1.2-3.8); Mean Corpuscular HGB Conc 34.2 g/dL (29.9-35.2); Mean Corpuscular Hemoglobin 30.0 pg (25.9-34.0); Mean Corpuscular Volume 87.8 fL (80.0-94.0); Platelet Count 187 10^3/uL (150-450); Red Blood Count 4.83 10^6/uL (4.70-6.10); White Blood Count 7.2 10^3/uL (4.0-11.0)
[2025-02-21 19:08] LABS: Alanine Aminotransferase 38 U/L (16-63); Albumin Globulin Ratio 1.3; Albumin Level 3.9 g/dL (3.4-5.0); Alkaline Phosphatase 74 U/L (46-116); Anion Gap 17.5; Aspartate Amino Transferase 31 U/L (15-37); Blood Urea Nitrogen 23.0 mg/dL (7.0-18.0); Calcium 9.9 mg/dL (8.5-10.1); Carbon Dioxide 22.8 mmol/L (21.0-32.0); Chloride 105 mmol/L (98-107); Estimated GFR (African America >60 (>=60 mL/min/1.73m^2); Estimated GFR (Non-African Ame >60 (>=60 mL/min/1.73m^2); Globulin 3.0 g/dL; Glucose 107 mg/dL (74-106); Potassium 4.3 mmol/L (3.5-5.1); Sodium 141 mmol/L (136-145); Total Protein 6.9 g/dL (6.4-8.2)
[2025-02-21] MEDS: 0.9 % SODIUM CHLORIDE 1,000 ML 500 ML IV (19:31)
== END 2025-02-21 21:46 | disposition home or self-care (01) ==
PROVIDERS: Emergency Provider Emergency Medicine; PCP Internal Medicine
DX: T67.5XXA Heat exhaustion, unspecified, initial encounter (principal); X30.XXXA Exposure to excessive natural heat, initial encounter; R42 Dizziness and giddiness; E86.0 Dehydration; F41.9 Anxiety disorder, unspecified
CPT/HCPCS: 36415; 80053; 84484; 85025; 93005; 99285

== ENCOUNTER 2025-02-28 11:40 | Emergency (ER) | payer MEDICARE, SELFPAY ==
--- OUTSIDE RECORDS SUMMARY | 2024-04-26 05:00 | XMS_ITS ---
Author Organization [facility] [place] Address [address] [facility] [place] [address] Care Team Providers Care Cloth Washer Operator Name Role Phone Cisco Nicholson DO Primary Care Provider Gabriela Mock [phone] REASON FOR VISIT Nail Care Vital Signs Weight 181 lbs 04/26/2024 Height 74 in 04/26/2024 Temperature 97.4 degrees Fahrenheit 04/26/20 24 Heart Rate 64 /min 04/26/2024 BMI 23.24 kg/m2 04/26/2024 Oximetry 98 % 04/26/2024 Encounters Encounter Location Date Provider Diagnosis [facility] (PODIAT[facility]) [address] [place] [address] [place] [address] 04/26/2024 Gabriela Koch Altered mental status R41.82 Assessments Encounter Date Diagnosis (ICD Code) Assessment Notes Treatment Notes Treatment Clinical Notes Section Notes 04/26/2024 Altered mental status (ICD-10 - R41.82) Plan Of Treatment No Information Progress Notes * Yonatan PETERSON ADOB:1945 (79 yo M)Acc No.[id number]:04/26/2024 Nurse Visit Patient: Alexei WHALEY Yonatan Garcia Provider: Samy Koch PA-C :1945 A ge:79 Y S ex:Male Date:04/26/2024 Address:[address] [place], [place] [id number] Pcp:Cisco Nicholson DO Check In:08:45 AM ESTCheck [...] 04/26/2024 Generated for Christopheri santos/Rain/eTransmitting on: 0 02/28/2025 11:48 AM EDT History and Physical Notes * HPI (History of Present Illness) Category Sub-Category Detail Notes Category Not es General Patient in offi ce today for nail trim. Nails were trimmed and filed to patients liking. Nails were trimmed with no incident.
--- OUTSIDE RECORDS SUMMARY | 2024-07-25 10:00 | XMS_ITS ---
Author Organization [facility] in [place] Address [address] [place] [address] Care Team Providers Care Laboratory Director Name Role Phone Cisco Nicholson DO Primary Care Provider Ernestina CorderoenGabriela Unavailable [phone] Allergies No Known Allergies REASON FOR VISIT Nail Care Medications Medication SIG (Take, Route, Frequency, Duration) Notes Start Date End Date Status Temazepam 15 MG 1 capsule at bedtime as needed Orally Once a day 02/11/2024 Active busPIRone HCl 15 MG 1 tablet Orally Twic e a day 02/11/2024 Active Aspirin 81 81 MG 1 tablet Orally Once a day 02/11/2024 Active Metoprolol Tartrate 25 MG 1/2 tab Orally Twice a day 02/11/2024 Active Gabapentin 300 MG 1 capsule Orally 4 daily 024 Active Multivitamin - 1 tablet Orally Once a day 02/11/2024 Active Atorvastatin Calcium 80 MG 1 tablet Oral ly Once a day 02/11/2024 Active Brimonidine Tartrate-Timolol 0.2-0.5 % 1 drop into affected eye Ophthalmic Twice a day 02/11/2024 Active Social History Tobacco Use: Social History Observation Description Date Details (start date - stop date) Former Smoker NA - NA Tobacco Control (Standard) Question Answer Notes Tobacco use: Former smoker Vital Signs Weight 181 lbs 07/25/2024 Height 74 in 07/25/2024 Temperature 96.5 degrees Fahrenheit 07/25/20 24 Heart Rate 62 /min 07/25/2024 Respiratory Rate 16 /min 07/25/2024 BMI 23.24 kg/m2 07/25/2024 Oximetry 98 % 07/25/2024 Encounters Encounter Location Date Provider Diagnosis [facility] (PODIATRY) [address] [place] [address] [place] [address] 07/25/2024 Gabriela August Onycholysis L60.1 Assessments Encounter Date Diagnosis (ICD Code) Assessment Notes Treatment Notes Treatment Clinical Notes Section Notes 07/25/2024 Onycholysis (ICD-10 - L60.1) Plan Of Treatment No Information Progress Notes * Yonatan PETERSON ADOB:1945 (79 yo M)Acc No.[id number]:07/25/2024 Nurse Visit Patient: Yonatan FARFAN Provider: Samy Koch PA-C :1945 A ge:79 Y S ex:Male Date:07/25/2024 Address:[address] [place], [place] [id number] Pcp:Cisco Nicholson, Check In:01:50 PM ESTCheck O ut:02:01 PM EST Subjective: * Chief Complaints: * N ail Care * HPI: G eneral: here today for toe nail care. 9 nails thick and long and need trimmed today. * Active Problem List R41.82 Altered mental statu s Modified On:07/23/2023W/U Status:confirmed * Medical History: * Surgical History: i nguinal hernia 2023 inguinal hernia 1973 left rotaor cuff 2014 right rotator [id number] skin cancer removal nose 2022 * Hospitalization/Major Diagno stic Procedure: s ee above * Family History: F ather: diagnosed with Unspecified heart disease. M other: diagnosed with Other malignant neoplasm of unspecified site. B rother(s): diagnosed with Diabetes mellitus without mention of complication, type II or unspecified type, not stated as uncontrolled. * Social History: T obacco Use: T obacco Control (Standard) T obacco use: F ormer smoker * Medications: T akingAspirin 81(Aspirin) 81 MG Tablet Delayed Release 1 tablet Orally Once a day Atorvastatin Calcium 80 MG Tablet 1 tablet Orally Once a day Brimonidine Tartrate-Timolol 0.2-0.5 % Solution 1 drop into affected eye Ophthalmic Twice a day busPIRone HCl 15 MG Tablet 1 tablet Orally Twice a day Gabapentin 300 MG Capsule 1 capsule Orally 4 daily Metoprolol Tartrate 25 MG Tablet 1/2 tab Orally Twice a day Multivitamin(Multiple Vitamin) - Tablet 1 tablet Orally Once a day Temazepam 15 MG Capsule 1 capsule at bedtime as needed Orally Once a day Medication List reviewed and reconciled with the patientTaking Aspirin 81(Aspirin) 81 MG Tablet Delayed Release 1 tablet Orally Once a day Taking Atorvastatin Calcium 80 MG Tablet 1 tablet Orally Once a day Taking Brimonidine Tartrate-Timolol 0.2-0.5 % Solution 1 drop into affected eye Ophthalmic Twice a day Taking busPIRone HCl 15 MG Tablet 1 tablet Orally Twice a day Taking Gabapentin 300 MG Capsule 1 capsule Orally 4 daily Taking Metoprolol Tartrate 25 MG Tablet 1/2 tab Orally Twice a day Taking Multivitamin(Multiple Vitamin) - Tablet 1 tablet Orally Once a day Taking Temazepam 15 MG Capsule 1 capsule at bedtime as needed Orally Once a day Medication List reviewed and reconciled with the patient * Allergies: N .K.D.A.no[Allergies Verified] Objective: * Vitals: W t:181lbs, Ht: 74 in, Temp:96.5F, HR:62/min, RR:16/min, BMI:23.24Index, Pain scale:01-10, Oxygen sat %:98%, Ht-cm: 187.96 cm, Wt-k.1 kg. Assessment: * Assessment: 1. O nycholysis - L60.1 (Primary) Plan: * Treatment: * Procedure Codes: * * Sign off status: Completed Visit Status: C HK (Check Out) true * Provider: Samy Koch PA-C Date: 1 09/25/2023 Generated for Maribel graham/Rain/Tabby on: 0 02/28/2025 11:49 AM EDT History and Physical Notes * HPI (History of Present Illness) Category Sub-Category Detail Notes Category Not es General here today for toe nail care. 9 nails thick and long and need trimmed today
--- OUTSIDE RECORDS SUMMARY | 2024-10-20 05:20 | XMS_ITS ---
Author Organization [facility] in [place] Address [address] [place] [address] Care Team Providers Care Behavioral Technician Name Role Phone Cisco Nicholson DO Primary Care Provider Deniz Villa [phone] Allergies No Known Allergies REASON FOR VISIT [...] Encounter Location Date Provider Diagnosis [facility] (PODIATRY) [address] [place] [address] [place] [address] 10/20/2024 Deniz Aguilera Onycholysis L60.1 and Altered mental status R41.82 Assessments Encounter Date Diagnosis (ICD Code) Assessment Notes Treatment Notes Treatment Clinical Notes Section Notes 10/20/2024 Onycholysis (ICD-10 - L60.1) 10/20/2024 Altered mental status (ICD-10 - R41.82) Plan Of Treatment Next Appt Details Follow Up: 3 Months, Reason: Progress Notes * Yonatan PETERSON ADOB:1945 (79 yo M)Acc No.[id number]:10/20/2024 UNLOCKED PROGRESS NOTE Follow Up Patient: Yonatan FARFAN Provider: Judith Aguilera DPM, MS :1945 A ge:79 Y S ex:Male Date:10/20/2024 Address:[address] [place], [place] [phone] Pcp:Cisco Nicholson, DO Check In:08:46 AM ESTCheck [...] left rotaor cuff 2013 , right rotator [id number] , skin cancer removal nose 2022 . [...] Electronic signature of Jewel Aguilera DPM on 02/28/2025 at 11:48 AM EDT Sign off status: Pending Visit Status: C HK (Check Out) * Provider: Judith Aguilera DPM, MS Date: 0 10/20/2024 Generated for Maribel graham/Rain/Tabby on: 0 02/28/2025 11:48 AM EDT History [...]
--- OUTSIDE RECORDS SUMMARY | 2025-02-23 14:45 | XMS_ITS | Encounter Summary ---
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 (Primary Dx); Aortic root dilatation; Other chest pain Social History Tobacco Use Types Packs/Day Years Used Date Smoking Tobacco: Former Cigarettes Smokeless Tobacco: Never Alcohol Use Standard Drinks/Week Comments Yes 0 [...] at Not on file Legal Sex Male 11:55 PM EDT Gender Identity Not on file Sexual Orientation Not on file documented as of this encounter Last Filed Vital Signs Vital Sign Reading Time Taken Comments Blood Pressure 130/70 02/23/2025 3:05 PM EDT Pulse 72 02/23/2025 3:05 PM EDT Temperature - - Respiratory Rate - - Oxygen Saturation 99% 02/23/2025 3:05 PM EDT Inhaled Oxygen Concentration - - Weight 80.7 kg (178 lb) 02/23/2025 3:05 PM EDT Height 188 cm (6' 2 ) 02/23/2025 3:05 PM EDT Body Mass Index 22.85 02/23/2025 3:05 PM EDT documented in this encounter Progress Notes * Betsy Chavez MD - 02/23/2025 2:45 PM EDT Images from the original note were not included. [facility] Cardiology Clinic Note Chief Complaint: Patient here for follow up 2 ED visits since he was last seen in the office in November 2024. says the ED visits were for dehydration and 1 visit for anxiety. Patient denies chest pain, SOB, and palpitations. HPI: Mr. Peterson presents to clinic for routine follow-up. 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 He has tinnitus and fatigue. His blood pressure had been low and Dr. Nicholson wanted to stop metoprolol. He was also diagnosed with significant anxiety. UPDATE 12/13/2024 Doing well; no new symptoms Physically active no symptoms UPDATE 02/23/2025 Was in the emergency room recently with symptoms that sounded like dehydration plus or minus anxiety He does experience chest discomfort on and off with and without exertion. He has occasional palpitations. He denies lightheadedness and dizziness. Cardiology ROS: Review of Systems Constitutional: Weight loss: 16# since November 2022. HENT: Positive for hearing loss. Cardiovascular: Positive for leg swelling (end of day, resolves by morning). Gastrointestinal: Positive for flatus. Psychiatric/Behavioral: The patient is nervous/anxious. All other systems reviewed and are negative. [...] smokeless tobacco. He reports current alcohol use. He reports that he does not use drugs. Family History Family History Problem Relation Name [...] Disp: , Rfl: Last Recorded Vitals BP 130/70 (BP Location: Right arm, Patient Position: Sitting) Pulse 72 Ht 1.88 m (6' 2 ) Wt 80.7 kg (178 lb) SpO2 99% BMI 22.85 kg/m?? Physical Examination: GENERAL: alert and oriented x3, [...] 5. Follow up with me in the [facility] in 1 to 2 months. 6. Follow [...] is normal in size 2.6 cm. Assessment: Coronary arteriosclerosis in false pass artery; Moderate disease of the left anterior descending coronary artery 2016 Chest discomfort: Possibly cardiac Palpitations Anxiety Essential hypertension Mixed hyperlipidemia Dilated aortic root Plan: Continue medical therapy [...] root dilatation; we will repeat one this December and again next year Given the patient's symptoms, the duration of time since his last ischemic evaluation, and moderatecoronary artery disease found 8 years ago, I have recommended a Lexiscan stress test to rule out occult ischemia Strongly recommended that he consider referral to a psychologist or psychiatrist to discuss cognitive behavioral therapy plus or minus adjustment of his medications given severe anxiety Return to clinic in 6 months or sooner should problems arise Betsy Chavez MD, MPH, FACC, [facility], [facility] Interventional Cardiology Pager Email: [email or web address] documented in this encounter Plan of Treatment Not on file documented as of this encounter Visit Diagnoses Diagnosis 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
[2025-02-28] VITALS (8 sets, daily range): BP systolic 148–157; BP diastolic 78–79; PULSE 54–74; TEMP 36.4; O2SAT 98–99; BMI 29.3
--- OUTSIDE RECORDS SUMMARY | 2025-02-28 11:49 | XMS_ITS | Clinical Summary ---
Author Organization [facility] Address [address] [place] [address] Care Team Providers Care Cotton Buyer Name Role Phone Cisco Nicholson DO Primary Care Provider [phone] Allergies No known active allergies Medications aspirin 81 mg chewable tablet Chew 81 mg every other day. Active busPIRone (Buspar) 15 mg tablet buspirone 15 mg tablet Active gabapentin (Neurontin) 300 mg capsule Take 300 mg by mouth every 6 (six) hours. 2 Active temazepam (Restoril) 15 mg capsule 3 Active metoprolol tartrate (Lopressor) 25 mg tabletIndication s:Essential hypertension TAKE ONE-HALF TABLET BY MOUTH TWICE DAILY 90 tablet 3 4 Active Additional Information Patient taking differently: 0.5 tablet oral 2 times daily, Reported on 02/23/2025 escitalopram (Lexapro) 5 mg tablet 15 mg. 4 Active atorvastatin (Lipitor) 80 mg tabletIndication s:Coronary artery disease due to lipid rich plaque TAKE 1 TABLET BY MOUTH ONCE DAILY 90 tablet 3 4 Active Active Problems Problem Noted Date Diagnosed Date Diplopia 01/08/2024 Acute encephalopathy 12/14/2023 12/14/2023 Adenomatous polyp of [...] Encounters Date Type Department Care Team Description 02/23/2025 2:45 PM EDT Office Visit [facility] [address] [place] [phone] Betsy Chavez MD Coronary artery disease involving menominee coronary artery of menominee heart without angina pectoris (Primary Dx); Aortic root dilatation; Other chest pain 02/23/2025 Orders Only [facility] [address] [place] [address] Annelise Garcia MA Palpitations (Primary Dx); Chest pain, unspecified type 12/13/2024 11:30 AM EDT Office Visit [facility] [address] [place] [address] Betsy Chavez MD Coronary artery disease involving menominee coronary artery of menominee heart without angina pectoris (Primary Dx); Aortic [...] Mass Index 22.85 02/23/2025 3:05 PM EDT Plan of Treatment Health Maintenance Due Date Last Done Comments Medicare Annual Wellness (AWV) 1945 Depression Screening 1955 Adult Tetanus 1965 Fall Risk Screening 2008 Pneumococcal Vaccine: 50+ Years (2 of 2 - PCV) 08/17/2013 08/17/2012 Zoster Vaccines (2 of 2) 05/04/2021 03/09/2021 COVID-19 Vaccine ( - season) 2024 08/23/2024, 07/04/2022, 11/16/2021, Additional history exists Influenza Vaccine (#1) 2025 , 06/05/2022, 06/29/2019, Additional history exists HIB Vaccines Aged [...] on patient's age to complete this topic Insurance MEDICARE Member Subscriber Plan / Payer (Ef fective 2008-Present) Name:Yonatan Peterson Member ID:[id number] Relation to Subscriber:Self Name:Yonatan Peterson Subscriber ID:[id number] Payer ID:[id number] Group ID:Not on file Type:Medicare Address: [facility] [place] [id number] [facility] Care Teams Cotton Buyer Relationship Specialty [place] [address] [place] [phone] PCP - General 11/25/22
--- OUTSIDE RECORDS SUMMARY | 2025-02-28 11:49 | XMS_ITS | Clinical Summary ---
Author Organization [facility] Address [address] [place] [address] Care Team Providers Care State Farm Agent Name Role Phone Unavailable Primary Care Provider [...] 2024 Advance Directive Discussion 08/17/2024 Influenza Vaccine (#1) 2025 Insurance MEDICARE
--- OUTSIDE RECORDS SUMMARY | 2025-02-28 11:49 | XMS_ITS | Encounter Summary ---
Author Organization [facility] Address [address] [place] [address] Care Team Providers Care Environmental Services Aide Name Role Phone Cisco Nicholson DO Primary Care Provider [phone] Reason for Referral * Imaging (Routine) - Pending Review Specialty Diagnoses / Procedures Referred By Shanna mireles Referred To Contact Cardiology Diagnoses Chest pain, unspecified type Palpitations Procedures Transthoracic echo (TTE) complete Betsy Chavez MD [address] [place] [address] Phone: tel: fax: Referral ID Status Reason Start Date Expiration Date Visits Requested Visits Authorized [id number] Pending Review Perform Procedure 02/23/2025 02/23/2026 1 1 Encounter Details Date Type Department Care Team (Late st Contact Info) Description 02/23/2025 Orders Only [facility] [address] [place] [address] Annelise Garcia MA Palpitations (Primary Dx); Chest pain, unspecified type Social History Tobacco Use Types Packs/Day Years [...] on file documented as of this encounter Plan of Treatment Scheduled Orders Name Type Priority Associated Diagnoses Orde r Schedule Transthoracic echo (TTE) complete Echocardiography Routine Chest pain, unspecified type Palpitations Expected: 02/23/2025 (Approximate), Expires: 02/23/2027 Lexiscan Stress Myocardial Perfusion Imaging Cardiac Services Routine Chest pain, unspecified type Palpitations Expected: 02/23/2025 (Approximate), Expires: 02/23/2027 documented as of this encounter Visit Diagnoses Diagnosis Palpitations- Primary Chest pain, unspecified type documented in this encounter Care Teams Environmental Services Aide Relationship Specialty Start Date End Date Cisco Nicholson DO [address] [place] [address] PCP - General 11/25/22 documented as of this encounter
--- OUTSIDE RECORDS SUMMARY | 2025-02-28 11:49 | XMS_ITS | Clinical Summary ---
Author Organization [facility] Address [address] [place] [address] Care Team Providers Care Associate Sales Representative Name Role Phone Cisco Nicholson DO Primary Care Provider [phone] Allergies Active Allergy Reactions Criticality Noted Date Comments Nirmatrelvir High 01/28/2024 Other Reaction(s): Confusion Ritonavir High 01/28/2024 Other Reaction(s): Confusion Medications aspirin 81 MG chewable tablet Chew 1 tablet every day by oral route. Active atorvastatin (Lipitor) 80 MG tablet Take 1 tablet by mouth in the morning. 08/04/20 22 Active busPIRone (Buspar) 15 MG tablet Take 1 tablet by mouth in the morning. Active gabapentin (Neurontin) 300 MG capsule Take 1 capsule 4 times a day by oral route for 90 days. 08/04/20 22 Active metoprolol tartrate (Lopressor) 25 MG tablet TAKE ONE-HALF TABLET BY MOUTH TWICE DAILY 10/21/19 23 Active temazepam (Restoril) 15 MG capsule 1 PO q HSTEMAZEPAM 15 MG CAPS 11/03/19 23 Active brimonidine (AlphaGAN P) 0.2 % ophthalmic solution every 12 (twelve) hours Active Ferrous Sulfate (IRON PO) Take 1 tablet by mouth in the morning. Active Paxlovid, 300/100, 20 x 150 MG & 10 x 100MG tablet therapy pack TAKE 3 TABLETS BY MOUTH TWICE A DAY FOR 5 DAYS 06/18/20 23 Active latanoprost (Xalatan) 0.005 % ophthalmic solutionIndica tions:Primary open angle glaucoma (POAG) of both eyes, moderate stage Administer 1 drop into both eyes at bedtime 7.5 mL 3 01/13/20 25 025 Active Simbrinza 1-0.2 % suspensionIndi cations:Primar y open angle glaucoma (POAG) of both eyes, moderate stage INSTILL 1 DROP INTO BOTH EYES IN THE MORNING AND BEFORE BEDTIME 24 mL 3 02/10/20 25 Active Brinzolamide-B rimonidine (Simbrinza) 1-0.2 % suspensionIndi cations:Primar y open angle glaucoma (POAG) of both eyes, moderate stage Administer 1 drop into both eyes in the morning and 1 drop before bedtime. 16 mL 3 07/28/20 24 025 Discontinued Active Problems Problem Noted Date Diagnosed Date Diplopia 01/08/2024 Primary open angle glaucoma (POAG) of both eyes, moderate stage 04/10/2023 Dry eyes 04/10/2023 PCO (posterior capsular opacification), bilatera l 04/10/2023 Blepharitis of upper and lower eyelids of both e yes 04/10/2023 Encounters Date Type Department Care Team Description 02/08/2025 Refill [facility] [address] [place] [phone] Jaden Slaughter, Primary open angle glaucoma (POAG) of both eyes, moderate stage 01/12/2025 Refill [facility] [address] [place] [address] Virginie Chang, LIZANDRO Primary open angle glaucoma (POAG) of both eyes, moderate stage (Primary Dx) 01/10/2025 9:00 AM EDT Office Visit [facility] [address] [place] [address] Jaden Slaughter DO Blepharitis of upper and lower eyelids of both eyes, unspecified type (Primary Dx); Diplopia; Dry eyes; PCO (posterior capsular opacification), bilateral; Primary open angle glaucoma (POAG) of both eyes, moderate stage 01/10/2025 Bamboo flowsheet [facility] [address] [place] [address] Jaden Slaughter DO 01/10/2025 Travel from Last 3 Months Social History Tobacco Use Types Packs/Day Years [...] Care Team (Late st Contact Info) Description 07/11/2025 8:45 AM EST Office Visit [facility] [address] [place] [phone] Jaden Slaughter DO [address] [place] [address] Health Maintenance Due Date Last Done Comments Pneumococcal Vaccine: 65+ Ye ars (2 of 2 - PCV) 08/17/2013 08/17/2012 Influenza Vaccine (#1) 2025 4, 06/05/2022, 06/29/2019, Additional history exists [facility] Care Teams Associate Sales Representative Relationship Specialty Start Date End Date Cisco Nicholson DO [address] [place] [phone] PCP - General Internal Medicine 04/09/23
--- OUTSIDE RECORDS SUMMARY | 2025-02-28 11:49 | XMS_ITS | Patient Health Record ---
Author Organization [facility] [place] Address [address] [place] [address] Care Team Providers Care Animal Treatment Investigator Name Role Phone Cisco Nicholson DO Primary Care Provider Deniz Villa Unavailable [phone] Gabriela Koch Unavailable [phone] Allergies No Known Allergies Reason For Referral [...] Encounters Encounter Location Date Provider Diagnosis [facility] (PODIATRY) [address] [place] [address] [place] [address] 04/26/2024 Gabriela Koch Altered mental status R41.82 [facility] (PODIATRY) [address] [place] [address] [place] [address] 07/25/2024 Gabriela Koch Onycholysis L60.1 [facility] (PODIATRY) [address] [place] [address] [place] [address] 10/20/2024 Deniz Aguilera Onycholysis L60.1 and Altered mental status R41.82 Assessments Encounter Date Diagnosis (ICD Code) Assessment Notes Treatment Notes Treatment Clinical Notes Section Notes 04/26/2024 Altered mental status (ICD-10 - R41.82) 07/25/2024 Onycholysis (ICD-10 - L60.1) 10/20/2024 Onycholysis (ICD-10 - L60.1) 10/20/2024 Altered mental status (ICD-10 - R41.82) Plan Of Treatment No Information Insurance Providers Payer Name Payer Address Payer Phone Subscriber Number Group Number Insured Name Patient Relationship to Insured Coverage Start Date Coverage End Date [place]IC[place] [address] [place] [address] [phone] [id number] Yonatan Peterson Self - patient is the insured [facility] [address] [place] [address] [id number] Yonatan Peterson Self - patient is the insured Medical (General) History Medical History History ICD Code skin cancer high blood pressure high cholesterol neuropathy Surgical History Surgery Date(Month/Year) inguinal hernia 1973 inguinal hernia 2023 right rotator [id number] left rotaor cuff 2013 skin cancer removal nose 2022 Hospitalization History Reason Date(Month/Year) see above
--- NOTE | 2025-02-28 12:02 | ECG_ITS ---
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
[2025-02-28 12:12] LABS: Hematocrit 43.6 % (42.0-54.0); Hemoglobin 14.7 g/dL (14.0-18.0); Immature Granulocytes Abs Auto 0.06 10^3/uL (0.00-0.03); Immature Granulocytes Pct Auto 1.0 % (0.0-0.5); Lymphocytes Absolute Auto 1.3 10^3/uL (1.2-3.8); Mean Corpuscular HGB Conc 33.7 g/dL (29.9-35.2); Mean Corpuscular Hemoglobin 29.8 pg (25.9-34.0); Mean Corpuscular Volume 88.4 fL (80.0-94.0); Platelet Count 176 10^3/uL (150-450); Red Blood Count 4.93 10^6/uL (4.70-6.10); White Blood Count 6.0 10^3/uL (4.0-11.0)
[2025-02-28 12:24] LABS: Glucose Urine UA NEGATIVE (NEGATIVE)
[2025-02-28 12:26] LABS: Alanine Aminotransferase 47 U/L (16-63); Albumin Globulin Ratio 1.3; Albumin Level 3.9 g/dL (3.4-5.0); Alkaline Phosphatase 76 U/L (46-116); Anion Gap 12.5; Aspartate Amino Transferase 32 U/L (15-37); Blood Urea Nitrogen 16.0 mg/dL (7.0-18.0); Calcium 9.8 mg/dL (8.5-10.1); Carbon Dioxide 25.6 mmol/L (21.0-32.0); Chloride 103 mmol/L (98-107); Estimated GFR (African America >60 (>=60 mL/min/1.73m^2); Estimated GFR (Non-African Ame >60 (>=60 mL/min/1.73m^2); Globulin 3.1 g/dL; Glucose 104 mg/dL (74-106); Potassium 4.1 mmol/L (3.5-5.1); Sodium 137 mmol/L (136-145); Total Protein 7.0 g/dL (6.4-8.2)
--- NOTE | 2025-02-28 12:35 | CT_ITS ---
The [address] [address] Patient Name: JOSE PATEL MRN: [id number] date: 1945 Sex: M Assigned Patient Location: ER Current Patient Location: ER Accession/Order Number: [id number] Exam Date: 02/28/2025 12:47 Report Date: 02/28/2025 12:50 At the request of: PEGGY BERNSTEIN MD Procedure: CT head/brain wo con CT BRAIN WITHOUT CONTRAST: CLINICAL HISTORY: legs weak COMPARISON: CT head 06/19/2023 TECHNIQUE: Contiguous axial unenhanced images were obtained through the brain. This CT exam was performed using one or more following dose reduction techniques: Automated exposure control, adjustment of the mA and/or kV according to patient size, or use of iterative reconstruction technique. FINDINGS: There is no evidence of midline shift, intra or hyperdense extra-axial fluid collection, hemorrhage or CT evidence of acute large vascular distribution stroke. Generalized involutional changes and mild chronic small vessel ischemic disease. Intracranial vascular calcifications. Prominence of the subarachnoid space narrowing both frontal convexities likely due to central involutional change. Visualized intraorbital contents appear unremarkable. Visualized paranasal sinuses are clear. The surrounding soft tissues are normal. CT/CT head/brain wo con IMPRESSION: CHRONIC SMALL VESSEL ISCHEMIC DISEASE AND CENTRAL INVOLUTIONAL CHANGES. FINDINGS APPEAR SIMILAR PRIOR EXAMINATION. NO ACUTE INTRACRANIAL ABNORMALITY. Impression dictated by: Sherman Peter M.D. 02/28/2025 12:50 PM Dictation Location: [place] [address] Electronically authenticated by: [id number] Y Date: 02/28/2025 12:50
[2025-02-28 12:47] LABS: Cast Seen? NONE SEEN #/LPF (NONE SEEN); Crystals Seen? None Seen #/HPF (None Seen)
--- NOTE | 2025-02-28 13:03 | ED.GENADUL1 ---
HPI HPI - General Adult General Chief complaint: Weakness Stated complaint: weakness Time Seen by Provider: 02/28/25 11:42 Source: patient Mode of arrival: Wheelchair History of Present Illness HPI narrative: 79-year-old male presented because he had numbness in his legs. He did not pass out he did not fall. He has had this issue several times over the past month or 2 and it has been attributed to anxiety. He has had extensive workup for these issues all of which was negative. The patient's states he has had 5 brain MRIs. He has not had a fever or cough and he has been taking all of his medications. 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 Related Data Home Medications ?Medication ?Instructions ?Recorded ?Confirmed atorvastatin 80 mg tablet 80 mg PO DAILY 06/19/23 02/28/25 buspirone 15 mg tablet 15 mg PO BID 06/19/23 02/28/25 gabapentin 300 mg capsule 300 mg PO QID 06/19/23 02/28/25 metoprolol tartrate 25 mg tablet 12.5 mg PO Q12H 06/19/23 02/28/25 temazepam 15 mg capsule 15 mg PO DAILY 06/19/23 02/28/25 aspirin 81 mg tablet,delayed 81 mg PO DAILY 08/07/23 02/28/25 release (Adult Aspirin Regimen) brinzolamide 1 %-brimonidine 0.2 % drp ophthalmic (eye) BID 08/07/23 eye drops,suspension (Simbrinza) latanoprost 0.005 % eye drops drp ophthalmic (eye) QPM 08/07/23 multivitamin (Daily Multi-Vitamin 1 tab PO DAILY 08/07/23 02/28/25 tablet) sertraline 50 mg tablet 50 mg PO DAILY 02/21/25 02/28/25 Previous Rx's ?Medication ?Instructions ?Recorded ondansetron 4 mg disintegrating 4 mg PO Q6H PRN nausea and 08/23/23 tablet vomiting #20 tabs Allergies Allergy/AdvReac Type Severity Reaction Status Date / Time nirmatrelvir (From Paxlovid) Allergy mental Verified 02/28/25 12:00 status change ritonavir (From Paxlovid) Allergy mental Verified 02/28/25 12:00 status change Opioid HPI Opioid Management Most Recent Opioid Data: Last Pain Scale 0 11/16/23, 09:03 Review of Systems ROS Narrative A ten point review of systems is negative except as noted above. [facility] Medical History (Updated 02/28/25 @ 13:02 by Grady Lockhart MD) Insomnia ?G47.00 - Insomnia, unspecified (ICD-10) Neuropathy ?G62.9 - Polyneuropathy, unspecified (ICD-10) Irritable bowel syndrome with constipation ?K58.1 - Irritable bowel syndrome with constipation (ICD-10) GERD (gastroesophageal reflux disease) ?K21.9 - Gastro-esophageal reflux disease without esophagitis (ICD-10) Encephalopathy ?G93.40 - Encephalopathy, unspecified (ICD-10) Cholelithiases ?K80.20 - Calculus of gallbladder without cholecystitis without obstruction (ICD-10) Colon polyp ?K63.5 - Polyp of colon (ICD-10) Glaucoma ?H40.9 - Unspecified glaucoma (ICD-10) Anxiety ?F41.9 - Anxiety disorder, unspecified (ICD-10) Rib fracture (06/2022) ?S22.39XA - Fracture of one rib, unspecified side, initial encounter for closed fracture (ICD-10) Pneumothorax (06/2022) ?J93.9 - Pneumothorax, unspecified (ICD-10) Constipation ?K59.00 - Constipation, unspecified (ICD-10) Inguinal hernia ?K40.90 - Unilateral inguinal hernia, without obstruction or gangrene, not specified as recurrent (ICD-10) Hypertension ?I10 - Essential (primary) hypertension (ICD-10) High cholesterol ?E78.00 - Pure hypercholesterolemia, unspecified (ICD-10) COVID-19 (06/17/23) ?U07.1 - COVID-19 (ICD-10) Surgical History (Updated 08/19/23 @ 09:21 by Anahi Tellez) H/O eye surgery ?Z98.890 - Other specified postprocedural states (ICD-10) History of arthroscopy of shoulder ?Z98.890 - Other specified postprocedural states (ICD-10) History of arthroscopy of shoulder ?Z98.890 - Other specified postprocedural states (ICD-10) History of cardiac catheterization ?Z98.890 - Other specified postprocedural states (ICD-10) History of arthroscopy of shoulder ?Z98.890 - Other specified postprocedural states (ICD-10) History of esophagogastroduodenoscopy (EGD) ?Z98.890 - Other specified postprocedural states (ICD-10) History of colonoscopy ?Z98.890 - Other specified postprocedural states (ICD-10) History of hernia repair ?Z98.890 - Other specified postprocedural states (ICD-10) ?Z87.19 - Personal history of other diseases of the digestive system (ICD-10) Family History (Updated 08/07/23 @ 10:22 by Ingrid Coronel NP) Other Family history of brain cancer Family history of gastric cancer Family history of myocardial infarction Social History (Updated 08/07/23 @ 10:10 by Ingrid Coronel NP) Within the past year, how often did you have a drink containing alcohol: never Score interpretation: A score less than 4 is consistent with normal alcohol consumption. Smoking status: Never smoker Non-prescribed substance use: denies use Previous occupational history: [employer] Highest level of school completed/degree received: high school graduate Little interest or pleasure in doing things: not at all Feeling down, depressed, or hopeless: not at all Exam Narrative Exam Narrative: Nurses note and vital signs reviewed and patient is not hypoxic. General: The patient appears well and in no apparent distress. Patient is resting comfortably on cart. Skin: Warm, dry, no pallor noted. There is no rash noted. Head: Normocephalic, atraumatic Eye: Normal conjunctiva, no drainage Ears, Nose, Mouth, and Throat: oral mucosa is moist. Nares patent. Cardiovascular: Regular Rate and Rhythm Respiratory: Patient is in no distress, no accessory muscle use, lungs are clear to auscultation, no wheezing, rales or rhonchi Back: non-tender, no CVA tenderness bilaterally to percussion. GI: Normal bowel sounds, no tenderness to palpation, no masses appreciated. No rebound, guarding, or rigidity noted. Musculoskeletal: The patient has no evidence of calf tenderness, no pitting edema, symmetrical pulses noted bilaterally. Dorsalis pedis pulses 2+ bilaterally. Capillary refill is brisk. Neurological: A&O x4, normal speech; upper and lower extremity strength intact Psychiatric: Cooperative Constitutional Vital Signs, click to edit/add: Last Vital Signs Temp 97.6 F 02/28/25 11:44 Pulse 54 L 02/28/25 12:20 Resp 17 02/28/25 12:20 BP 157/78 H 02/28/25 11:47 Pulse Ox 99 02/28/25 12:00 O2 Del Method Room Air 02/28/25 11:44 Course Vital Signs Vital signs: Vital Signs Temperature 97.6 F 02/28/25 11:44 Pulse Rate 73 02/28/25 11:44 Respiratory Rate 18 02/28/25 11:44 Blood Pressure 157/78 H 02/28/25 11:44 Pulse Oximetry 99 02/28/25 11:44 Oxygen Delivery Method Room Air 02/28/25 11:44 Temperature 97.6 F 02/28/25 11:44 Pulse Rate 54 L 02/28/25 12:20 Respiratory Rate 17 02/28/25 12:20 Blood Pressure 157/78 H 02/28/25 11:47 Pulse Oximetry 99 02/28/25 12:00 Oxygen Delivery Method Room Air 02/28/25 11:44 Medical Decision Making MDM Narrative Medical decision making narrative: Workup here including CT brain is negative and he is discharged home. I suspect that his symptoms are due to anxiety. Treatment diagnosis and follow-up were discussed with the patient and his . Differential Diagnosis Differential Diagnosis: Neuropathy, anxiety, UTI Lab Data Lab results reviewed: Yes I reviewed the patient's lab results Labs: Lab Results 02/28/25 02/28/25 Range/Units 11:45 12:06 WBC 6.0 (4.0-11.0) 10^3/uL RBC 4.93 (4.70-6.10) 10^6/uL Hgb 14.7 (14.0-18.0) g/dL Hct 43.6 (42.0-54.0) % MCV 88.4 (80.0-94.0) fL MCH 29.8 (25.9-34.0) pg MCHC 33.7 (29.9-35.2) g/dL RDW 14.3 (11.0-15.0) % Plt Count 176 (150-450) 10^3/uL MPV 10.0 (9.5-13.5) fL Neut % (Auto) 67.1 (43.0-75.0) % Lymph % (Auto) 21.7 (20.5-60.0) % [place] % (Auto) 9.2 (1.7-12.0) % Eos % (Auto) 0.5 L (0.9-7.0) % Baso % (Auto) 0.5 (0.2-2.0) % Neut # (Auto) 4.0 (1.4-6.5) 10^3/uL Lymph # (Auto) 1.3 (1.2-3.8) 10^3/uL [place] # (Auto) 0.6 (0.3-0.8) 10^3/uL Eos # (Auto) 0.0 (0.0-0.7) 10^3/uL Baso # (Auto) 0.0 (0.0-0.1) 10^3/uL Abs Immat Gran (auto) 0.06 H (0.00-0.03) 10^3/uL Imm/Tot Granulo (auto) 1.0 H (0.0-0.5) % Sodium 137 (136-145) mmol/L Potassium 4.1 (3.5-5.1) mmol/L Chloride 103 (98-107) mmol/L Carbon Dioxide 25.6 (21.0-32.0) mmol/L Anion Gap 12.5 BUN 16.0 (7.0-18.0) mg/dL Creatinine 0.84 (0.70-1.30) mg/dL Est GFR ( Amer) >60 (>=60 mL/min/1.73m^2) Est GFR (Non-Af Amer) >60 (>=60 mL/min/1.73m^2) BUN/Creatinine Ratio 19.0 Glucose 104 (74-106) mg/dL Calcium 9.8 (8.5-10.1) mg/dL Total Bilirubin 2.4 H (0.2-1.0) mg/dL Direct Bilirubin 0.3 H (0.0-0.2) mg/dL AST 32 (15-37) U/L ALT 47 (16-63) U/L Alkaline Phosphatase 76 (46-116) U/L Troponin I High Sens 6.9 (4.0-76.1) pg/mL Total Protein 7.0 (6.4-8.2) g/dL Albumin 3.9 (3.4-5.0) g/dL Globulin 3.1 g/dL Albumin/Globulin Ratio 1.3 Urine Color Lt. yellow (YELLOW) Urine Clarity Clear (CLEAR) Urine pH 7.0 (5.0-9.0) Ur Specific [place] <=1.005 A (1.005-1.025) Urine Protein Negative (NEG/TRACE) mg/dL Urine Glucose (UA) Negative (NEGATIVE) mg/dL Urine Ketones Negative (NEGATIVE) mg/dL Urine Occult Blood Negative (NEGATIVE) Urine Nitrite Negative (NEGATIVE) Urine Bilirubin Negative (NEGATIVE) Urine Urobilinogen 0.2 (0.2-1.0) EU/dL Ur Leukocyte Esterase Negative (NEGATIVE) Urine RBC None seen (0-2) #/HPF Urine WBC None seen (NONE SEEN) #/HPF Ur Squamous Epith Cells None seen (NONE/RARE) #/LPF Urine Crystals None seen (None Seen) #/HPF Urine Bacteria Trace A (NONE SEEN) #/HPF Urine Casts None seen (NONE SEEN) #/LPF Urine Mucus None seen (NONE SEEN) Imaging Data CT scan - head: Radiologist's impression: ITS Impressions Head CT 02/28/25 12:35 IMPRESSION: CHRONIC SMALL VESSEL ISCHEMIC DISEASE AND CENTRAL INVOLUTIONAL CHANGES. FINDINGS APPEAR SIMILAR PRIOR EXAMINATION. NO ACUTE INTRACRANIAL ABNORMALITY. Impression dictated by: Sherman Peter M.D. 02/28/2025 12:50 PM Dictation Location: [place] [address] Electronically authenticated by: [id number] Y Date: 02/28/2025 12:50 ECG Data Attestation: I personally reviewed and interpreted this ECG as follows: (EKG on my interpretation shows sinus rhythm with rate of 59) Discharge Plan Discharge Chief Complaint: Weakness Clinical Impression: Anxiety Patient Disposition: Home, Self-Care Time of Disposition Decision: 13:02 Condition: Good Mode of Transportation: Private Vehicle Prescriptions / Home Meds: No Action Simbrinza 1-0.2 % drops,suspension OPHTHALMIC (EYE) BID latanoprost 0.005 % drops OPHTHALMIC (EYE) QPM aspirin [Adult Aspirin Regimen] 81 mg tablet,delayed release (DR/EC) 81 mg PO DAILY multivitamin [Daily Multi-Vitamin] Tablet 1 tab PO DAILY ondansetron 4 mg tablet,disintegrating 4 mg PO Q6H PRN (Reason: nausea and vomiting) Qty: 20 0RF atorvastatin 80 mg tablet 80 mg PO DAILY buspirone 15 mg tablet 15 mg PO BID gabapentin 300 mg capsule 300 mg PO QID metoprolol tartrate 25 mg tablet 12.5 mg PO Q12H temazepam 15 mg capsule 15 mg PO DAILY sertraline 50 mg tablet 50 mg PO DAILY Print Language: Japanese Instructions: Anxiety (ED) Referrals: Cisco Nicholson DO [Primary Care Provider, Internal Medicine] - 1 week
== END 2025-02-28 13:15 | disposition home or self-care (01) ==
PROVIDERS: Emergency Provider Emergency Medicine; PCP Internal Medicine
DX: F41.9 Anxiety disorder, unspecified (principal); R53.1 Weakness; R20.0 Anesthesia of skin
CPT/HCPCS: 36415; 70450; 80048; 80076; 81001; 84484; 85025; 93005; 99285

== ENCOUNTER 2025-03-22 06:56 | Outpatient (OUT) | payer MEDICARE, SELFPAY ==
--- NOTE | 2025-03-22 06:50 | CA_ITS ---
Patient Name: JOSE PATEL MR#: [id number] : 1945 Exam Date: 03/22/2025 Ordering Doctor: DR ZEV PRIETO M.D. ECHOCARDIOGRAM REPORT PROCEDURE: CA ECHO DOPPLER COMPLETE INDICATIONS: Chest pain, palpitations, hypertension COMPARISON: None. DESCRIPTION: COMPLETE ECHOCARDIOGRAM Real-time transthoracic echocardiography with 2D, M-mode, spectral and color flow Doppler performed. QUALITY: Technical quality was good. LEFT VENTRICLE: Normal chamber size. Mild concentric hypertrophy. Normal systolic function. LV EF: Normal left ventricular ejection fraction, (55-60%). DIASTOLIC: Diastolic function is indeterminate. ATRIAL SEPTUM: Visually appears intact. LEFT ATRIUM: Mild dilatation. RIGHT ATRIUM: Mild dilatation. Prominent eustachian valve. RIGHT VENTRICLE: Normal chamber size. Normal right ventricular systolic function. TRICUSPID VALVE: Normal mobility and thickness. No stenosis with trivial regurgitation. Doppler studies reveal mildly (35-45) elevated right sided pressures. RVSP 37 mmHg MITRAL VALVE: Normal mobility and thickness. No evidence of mitral valve stenosis. There is no mitral annular calcification. No mitral regurgitation. AORTIC VALVE: Normal trileaflet appearance. Thickened aortic valve. Normal leaflet mobility. No evidence of aortic valve stenosis. Mild aortic regurgitation. AORTIC ROOT: Normal diameter and appearance, measuring 3.8 cm. Ascending aorta is normal in size, measuring 3.2 cm. PULMONIC VALVE: Normal thickness and mobility. No stenosis. Trivial regurgitation. PERICARDIUM: No evidence of pericardial effusion. IVC: IVC is normal in size, does not fully collapse. PLEURA: CONCLUSION: 1. Mild concentric left ventricular hypertrophy with normal systolic function. Estimated LVEF is 55 to 60%. 2. Normal right ventricular size and systolic function. 3. Mild biatrial dilatation. 4. Mild aortic regurgitation. 5. Mildly elevated right-sided pressures. Adult Echocardiography Procedure Report Left Ventricle LVEDD (3.7 - 5.6 cm): 4.98 cm LVESD (2.2 - 4.0 cm): 3.89 cm LVIVS thickness (0.6 - 1.2 cm): 1.17 cm LVPW thickness (0.5 - 1.0 cm): 0.92 cm e': 0.12 m/s E - e': 3.17 LVOT Max Gradient: 4.83 mm[Hg] LVOT Area (cm2): 1.10 m/s Peak Velocity (LVOT): 1.10 m/s Mean Velocity (LVOT): 0.74 m/s LVOT Diameter 2.46 cm Left Atrium LA Volume Index (2D A2C): 41.28 ml/m2 Left Atrium Systolic Dimension: 3.74 cm Mitral Valve MV E to A Ratio: 0.55 Mitral Valve A-Wave Peak Velocity: 0.68 m/s Mitral Valve E-Wave Peak Velocity: 0.37 m/s Right Ventricle Aorta AO Root Diam: 3.82 cm Ascending Ao Diam: 3.19 cm Aortic Valve AoV Area (Peak Efren): 4.01 cm2, 4.01 cm2 AoV Area (VTI): 3.44 cm2, 3.44 cm2 Deceleration [place]: 1.71 m/s2 Pressure Half-Time: 736.21 ms Peak Velocity(Antegrade Flow): 1.31 m/s Peak Gradient(Antegrade Flow): 6.82 mm[Hg] Mean Velocity(Antegrade Flow): 0.91 m/s Mean Gradient(Antegrade Flow): 3.77 mm[Hg] Velocity Time Integral: 32.31 cm Tricuspid Valve Peak Velocity (Regurgitant Flow): 2.08 m/s, 2.13 m/s, 2.34 m/s Pulmonic Valve Peak Velocity: 1.14 m/s Peak Gradient: 5.19 mm[Hg] Right Atrium Right Atrium Systolic Pressure: 72.29 ml, 72.29 ml Dictated by: Derrick Marshall M.D. on 03/22/2025 at 18:07 Approved by: Derrick Marshall M.D. on 03/22/2025 at 18:13
--- NOTE | 2025-03-22 07:30 | NM_ITS ---
Patient Name: JOSE APTEL MR#: [id number] : 1945 Exam Date: 03/22/2025 Ordering Doctor: DR ZEV PRIETO M.D. RADIOLOGY REPORT PROCEDURE: NM JAZ PERF SPECT REST STR COMPARISON: None. INDICATIONS: CHEST PAIN, PALPITATIONS TECHNIQUE: Exam Description: Stress/Rest one day protocol gated SPECT Rest Imagin.9 mCi Tc-99m Cardiolite IV on 03/22/2025 Stress Imaging 30.5 mCi Tc-99m Cardiolite IV on 03/22/2025 Exercise Protocol: 0.4 mg Lexiscan given IV Heart Rate (bpm): Rest: 51 Max: 73 PMHR: 52 Blood Pressure: Rest: 116/62 Max: 122/62 Symptoms: Rest and peak stress ECG findings were pending and the EKG portion of the study was pending per attending physician [facility] . For more details please see separate cardiac stress test report. FINDINGS: QUALITY OF STUDY: Good PERFUSION DEFECT: LOCATION: Mid and basal inferior SIZE: Small to medium SEVERITY: Mild TYPE: Fixed with adequate contractility and thickening consistent with diaphragmatic attenuation WALL MOTION: Normal LV SIZE: 96 mL. TID / TCD: 0.9 LVEF: Calculated EF 65%. SUMMARY: Normal myocardial perfusion imaging study CONCLUSION: Normal myocardial perfusion nuclear stress test without evidence of ischemia or infarction Normal left ventricular systolic function, ejection fraction 65% No transit ischemic dilatation, TID 0.9 EKG portion of stress test is reported separately Dictated by: Armando Hill MD on 03/24/2025 at 18:17 Approved by: Armando Hill MD on 03/24/2025 at 18:20
[2025-03-22] MEDS: REGADENOSON 0.4 MG/5 ML SYRINGE IV (09:38)
--- NOTE | 2025-03-22 09:38 | PC.NURSE ---
Nursing Note Cardiac Stress Test Reviewed: Medication, allergies and patient history reviewed. Stress Test: [ x]? Patient tolerated stress test well. [ ]? Patient unable to tolerate walking on treadmill. Switched to Lexiscan stress test. [x ]? No chest pain noted per patient [ ]? Chest pain that resolved prior to leaving stress lab. [x ]? No dyspnea noted. [ ]? Dyspnea that resolved prior to leaving stress lab. [x ]? Patient left stress lab asymptomatic and hemodynamically stable. [ ]? Patient taken to the Emergency Room due to non-resolving symptoms following stress test. [ ]? Patient achieved target heart rate. [ ]? Patient unable to achieve target heart rate. [ ]? Aminophylline administered as reversal agent to Lexiscan (Regadenoson). [ ]? Nitro administered. Nursing Comments: Procedure explained and consent signed. Patient tolerated stress test with Lexiscan. Patient reported no chest pain or shortness of breath. Patient did report he had a slight upset stomach that resolved within 2-3 minutes. Patient taken to cafeteria for breakfast.
--- NOTE | 2025-03-27 18:01 | P.STRESS_ITS ---
Stress Test Stress Test Allergies Allergy/AdvReac Type Severity Reaction Status Date / Time nirmatrelvir (From Paxlovid) Allergy mental Verified 02/28/25 12:00 status change ritonavir (From Paxlovid) Allergy mental Verified 02/28/25 12:00 status change Requesting physician: Betsy Chavez Procedure: This was a Lexiscan stress test with myocardial perfusion imaging performed at the [facility] on 03/22/2025. Intravenous line was secured. The patient was attached to electrocardiographic monitoring. Baseline vital signs and ECG were obtained. Lexiscan 0.4 mg was administered intravenously followed by administration of Cardiolite. The patient then went on to obtain myocardial perfusion imaging. Resting heart rate was 51 bpm and peak heart rate was 73 bpm. Resting blood pressure was 116/62 and peak blood pressure was 122/62. General Information: Reason for Stress Test: Chest pain, palpitations. Cardiac History and Risk Factors: Hypertension. Resting 12 - Lead Electrocardiogram: Sinus arrhythmia and nonspecific T wave abnormalities. Stress Test: Protocol: Pharmacologic stress test with Lexiscan. Exercise Capacity: Not assessed. Blood Pressure Response: Normal resting blood pressure. Rhythm: Sinus rhythm with PVCs. ST - Response: No ischemic ST changes seen. Patient Response: Frequent PVCs noted sometimes in couplets. Interpretation: 1. No evidence of ischemic ST changes seen following infusion of Lexiscan. 2. Frequent PVCs noted during the exam sometimes in couplets that subsided towards the end of the test. 3. Myocardial perfusion images will be reported separately.
== END 2025-03-22 06:57 | disposition home or self-care (01) ==
LOC: CARD 06:56
PROVIDERS: PCP Internal Medicine; Visit Provider Internal Medicine Interventional Cardiology
DX: R07.9 Chest pain, unspecified (principal); R00.2 Palpitations
CPT/HCPCS: 78452; 93017; 93306; A9500; J2785

== ENCOUNTER 2025-05-11 11:18 | Outpatient (OUT) | payer MEDICARE, SELFPAY ==
--- OUTSIDE RECORDS SUMMARY | 2025-05-11 11:21 | XMS_ITS | Clinical Summary ---
Author Organization [employer] [facility] Address [id number] [address] [place] [address] Care Team Providers Care Hand Folder Name Role Phone Cisco Nicholson DO Primary Care Provider [phone] Allergies No known active allergies Medications aspirin [...] drop 2 (two) times a day. Active [id number] A-calcium &mins (THERAGRAN-M) 9 mg iron-400 mcg [...] Vaccine 04/17/2025 Medical Devices Implanted Type Area Plan Checker Device Identifier Shelf Expiration Date Model / Serial / Lot Anch Sut 4.75mm 2 Healicoil - [id number] - [id number] Implanted:Qty: 1 on 10/05/2019 by Heriberto Boykin DO at [facility] [place] Right: Shoulder [employer] 04/04/2022 [id number] / [id number] / [id number] Anch Sut 4.75mm 2 Healicoil - [id number] - [id number] Implanted:Qty: 1 on 10/05/2019 by Heriberto Boykin DO at [facility] [place] Right: Shoulder [employer] 06/04/2022 [id number] / [id number] / [id number] Anch Sut 4.75mm 2 Regenesorb - [id number] - [id number] Implanted:Qty: 1 on 10/05/2019 by Heriberto Boykin DO at [facility] [place] Right: Shoulder [employer] 04/04/2022 [id number] / [id number] / [id number] Anch Sut 5.5mm Multifix S Ult Rpl [id number] - [id number] - [id number] Implanted:Qty: 1 on 10/05/2019 by Heriberto Boykin DO at [facility] [place] Right: Shoulder [employer] 04/04/2022 [id number] / [id number] / [id number] Anch Sut 5.5mm Multifix S Ult Rpl [id number] - [id number] - [id number] Implanted:Qty: 1 on 10/05/2019 by Heriberto Boykin DO at [facility] [place] Right: Shoulder [employer] 06/04/2022 [id number] / [id number] / [id number] Anch Sut 5.5mm Multifix S Ult Rpl [id number] - [id number] - [id number] Implanted:Qty: 1 on 10/05/2019 by Heriberto Boykin DO at [facility] [place] Right: Shoulder [employer] 06/04/2022 [id number] / [id number] / [id number] Insurance MEDICARE [facility] Care Teams Hand Folder Relationship Specialty Start Date End Date Cisco Nicholson DO [address] [place] [address] PCP - General Internal Medicine 10/04/19
--- OUTSIDE RECORDS SUMMARY | 2025-05-11 11:21 | XMS_ITS | Clinical Summary ---
Author Organization [facility] Address [address] [place] [address] Phone Care Team Providers Care Economic Consultant Name Role Phone Cisco Nicholson DO Primary Care Provider [phone] Social History Tobacco Use Types Packs/Day Years [...] - 1-dose 75+ series) 2018 COVID-19 Vaccine (1 - 2023-2 5 season) 2025 Influenza Vaccine (#1) 2025 HIB Vaccines Aged Out No longer [...] age to complete this topic Care Teams Economic Consultant Relationship Specialty Start Date End Date Cisco Nicholson DO PCP - General 03/04/23
--- OUTSIDE RECORDS SUMMARY | 2025-05-11 11:21 | XMS_ITS | Clinical Summary ---
Author Organization [facility] Address [address] [place] [address] Care Team Providers Care [employer] Polisher Operator Name Role Phone Unavailable Primary Care Provider [...] Vaccine (1 - 1-dose 75+ series) 2018 Advance Directive Discussion 08/17/2024 Influenza Vaccine (#1) 2025 Insurance MEDICARE
--- OUTSIDE RECORDS SUMMARY | 2025-05-11 11:21 | XMS_ITS | Clinical Summary ---
Author Organization [facility] Address [address] [place] [address] Care Team Providers Care Coat Repair Inspector Name Role Phone Cisco Nicholson DO Primary Care Provider [phone] Allergies No known active allergies Medications aspirin [...] Encounters Date Type Department Care Team Description 03/29/2025 Telephone [facility] [address] [place] [address] BeKey MA 03/28/2025 Orders Only [facility] [address] [place] [address] Provider, MD Tania 03/27/2025 Orders Only [facility] [address] [place] [facility] [place] [address] ProviderTania MD 02/23/2025 2:45 PM EDT Office Visit [facility] [address] [place] [facility] [place] [address] Betsy Chavez MD Coronary artery disease involving [place] coronary artery of [place] heart without angina pectoris (Primary Dx); Aortic root dilatation; Other chest pain 02/23/2025 Orders Only [facility] [address] [place] [place] [id number] Annelise Garcia MA Palpitations (Primary Dx); Chest pain, unspecified type from Last 3 Months Family History Medical [...] 2) 05/04/2021 03/09/2021 COVID-19 Vaccine ( season) 2025 08/23/2024, 07/04/2022, 11/16/2021, Additional history exists Influenza [...] on patient's age to complete this topic Procedures Procedure Name Priority Date/Time Associated Diagnosis Comments LEXISCAN STRESS MYOCARDIAL PERFUSION IMAGING Routine 2025 10:49 AM EDT from Last 3 Months Results * Lexiscan Stress Myocardial Perfusion Imaging (2025 10:49 AM EDT) Anatomical Region Laterality Modality Other us Historical Provider CV STRESS PROCEDURES Rihanna l Result from Last 3 Months Insurance MEDICARE [employer] Care Teams Coat Repair Inspector Relationship Specialty Start Date End Date Cisco Nicholson DO [address] [place] [address] PCP - General 11/25/22
--- OUTSIDE RECORDS SUMMARY | 2025-05-11 11:21 | XMS_ITS | Clinical Summary ---
Author Organization [facility] Address [address] [place] [address] Care Team Providers Care [employer] Revenue Officer Name Role Phone Cisco Nicholson DO Primary Care Provider [phone] Allergies Active Allergy Reactions Criticality Noted Date [...] q HSTEMAZEPAM 15 MG CAPS 3 Active brimonidine (AlphaGAN P) 0.2 % ophthalmic solution every 12 (twelve) hours Active Ferrous Sulfate (IRON PO) Take 1 tablet by mouth in the morning. Active Paxlovid, 300/100, 20 x 150 MG & 10 x 100MG tablet therapy pack TAKE 3 TABLETS BY MOUTH TWICE A DAY FOR 5 DAYS 3 Active Simbrinza 1-0.2 % suspensionIndic ations:Primary open angle glaucoma (POAG) of both eyes, moderate stage INSTILL 1 DROP INTO BOTH EYES IN THE MORNING AND BEFORE BEDTIME 24 mL 3 5 Active latanoprost (Xalatan) 0.005 % ophthalmic solutionIndicat ions:Primary open angle glaucoma (POAG) of both eyes, moderate stage Administer 1 drop into both eyes at bedtime 7.5 mL 3 5 06/29/20 Active Active Problems Problem Noted Date Diagnosed Date Diplopia 01/08/2024 Primary open angle glaucoma (POAG) of both eyes, moderate stage 04/10/2023 Dry eyes 04/10/2023 PCO (posterior capsular opacification), bilatera l 04/10/2023 Blepharitis of upper and lower eyelids of both e yes 04/10/2023 Encounters Date Type Department Care Team Description 03/31/[address] [facility] [address] [place] [phone] Jaden Slaughter DO Primary open angle glaucoma (POAG) of both eyes, moderate stage 02/08/[address] [facility] [address] [place] [phone] Jaden Slaughter DO Primary open angle glaucoma (POAG) of both eyes, moderate stage from Last 3 Months Social History Tobacco [...] 07/11/2025 8:45 AM EST Office Visit [facility] [address] [place] [address] aJden Slaughter DO [address] [place] [address] Health Maintenance Due Date Last Done Comments Pneumococcal Vaccine: 65+ Ye ars (2 of 2 - PCV) 08/17/2013 08/17/2012 Influenza Vaccine (#1) 2025 4, 06/05/2022, 06/29/2019, Additional history exists Insurance MEDICARE [facility] Care Teams [employer] Revenue Officer Relationship Specialty Start Date End Date Cisco Nicholson DO [address] [place] [id number] PCP - General Internal Medicine 04/09/23
--- OUTSIDE RECORDS SUMMARY | 2025-05-11 11:34 | XMS_ITS | CCD ---
Author Organization [facility] Care Team Providers Care Die Tripper Name Role Phone MD Alek Oliva Attending Provider [phone] DO Cisco Mcadams Primary Care Provider [phone] MIGUEL ANGEL JACOBSEN Attending Unavailable ANN-MARIE, MIGUEL ANGEL Admitting Unavailable ANN-MARIE, MIGUEL ANGEL Consulting Unavailable ABBE, DR JOYA Primary Care Unavailable BALL, DR JOYA Primary Care Unavailable ABBE, DR JOYA Consulting Unavailable BALL, DR JOYA Attending Unavailable ABBE, DR JOYA Admitting Unavailable ABBE, DR JOYA Primary Care Unavailable ABBE, DR JOYA Consulting Unavailable ABBE, DR JOYA Attending Unavailable ABBE, DR JOYA Admitting Unavailable SARAHI, DR EVGENY Simons Consulting Unavailable BALL, DR JOYA Primary Care Unavailable ABBE, DR [...] MD Maryjane Christensen Attending Provider Dr. Cisco Mcadams Primary Care Penelope Mcadams, Dr. Cisco Shelton Primary Care DO Cisco Ivey Primary Care Provider DO Alejo Lynn Emergency Provider MD Bobo Villagomez Admit Provider MD Bobo Villagomez Attending Provider MD Berhane Trammell Other Provider DO Cisco Mcadams Primary Care Provider MD Sandoval Palacios Jr Emergency Provider MD Warren Quiroz Admit Provider [phone] MD Warren Quiroz Attending Provider Cisco Mcadams Primary Care Unavailable Asaad, Imad Admitting Unavailable Asaad, Imad Attending Unavailable Cisco Mcadams Primary Care Unavailable Angely Lee Attending Unavailable Bobo Villagomez Admitting Unavailable Berhane Trammell Consulting Unavailable Berhane Trammell Consulting Unavailable Cisco Mcadams Primary Care Unavailable Warren Quiroz Admitting Unavailable Maren Petersen Attending Unavailable Cisco Mcadams Primary Care Unavailable PjDandren Admitting Unavailable PjDandre garcian Attending Unavailable CISCO MCADAMS Primary Care Physician Angely GAGE Attending Unavailable Angely GAGE Attending Unavailable CISCO MCADAMS Referring Unavailable Cisco Mcadams MD Primary Care Provider Cisco Mcadams DO Primary Care Provider MIGUEL ANGEL JACOBSEN Attending Unavailable APLCHEYANNE ESPINOSA B Attending Unavailable APLJESÚS CHEYANNE B Referring Unavailable MIGUEL ANGEL JACOBSEN Attending Unavailable MIGUEL ANGEL JACOBSEN Attending Unavailable Cisco Mcadams DO Primary Care Provider Cisco Mcadams DO Attending Provider Natalie Dunn PA-C Attending Provider Unavailable Gabriella Kenney CMA Attending Provider Unavaila ble BETSY CHAVEZ Attending Unavailable BETSY CHAVEZ Attending Unavailable Cisco Mcadams DO Primary Care Provider Cisco Mcadams DO Attending Provider [phone] Anjelica Long MD Attending Provider Omid Lockhart DO Attending Provider Allergies Allergy Classification Reported Allergen(s) Allergy Type Date of Onset Reaction(s) Facility (20 sources) Ritonavir; Translations: [ritonavir] Drug Allergy 3 [facility] (20 sources) nirmatrelvir; Translations: [nirmatrelvir] Propensity to adverse reactions 3 [facility] (1 source) No Known Medication Allergies; Translations: [No Known Medication Allergies] Propensity to adverse reactions (disorder) [facility] Repository Medications Current Medications Medication Drug Class(es) Dates Sig (Normalized) Sig (Original) aspirin 81 mg delayed release oral tablet (20 sources) Platelet Aggregation Inhibitor, Nonsteroidal Anti-inflammatory Drug Start: 03-01-2023 take 1 tablet by mouth once daily Aspirin 81 mg Tablet,Delayed Release (Dr/Ec) Active 81 MG PO Daily March 01, 2023 12:00am Complies with drug therapy take 1 tablet by mouth once isamar y aspirin 81 MG chewable tablet Chew 1 tablet every day by oral route. Active Baby Aspirin Act karen atorvastatin 80 mg oral tablet (20 sources) HMG-CoA Reductase Inhibitor Start: 08-04-2022 take 1 tablet by mouth once daily Atorvastatin 80 mg tablet Active 80 MG PO Daily August 25, 2022 1:00am Complies with drug therapy Atorvastatin Sandor cium Active Bismuth (2 sources) Start: 09-03-2022 take 2 [...] Active brimonidine tartrate 2 mg/ml ophthalmic solution (9 sources) alpha-Adrenergic Agonist brimonidine (AlphaGAN P) 0.2 [...] Start Date: 07/28/23 Status: Ordered Start: 03-01-2023 End: 02-14-2025 take 1 drop(s) into the eye(s) twice daily Brinzolamide-Brimonidine 1-0.2 % Drops,Suspension Discontinued 1 DROPS EYE-BOTH Twice daily March 01, 2023 12:00am February 14, 2025 11:24am Start: 03-01-2023 take 1 drop(s) into the eye(s) twice daily Brinzolamide-Brimonidine 1-0.2 % Drops,Suspension Active 1 DROPS EYE-BOTH Twice daily March 01, 2023 12:00am End: 06-13-2024 Simbrinza 1-0.2 % suspension 06/13/2024 Discontinued brinzolamide (20 sources) Carbonic Anhydrase Inhibitor Brinzolamide Active busPIRone hydrochloride 10 mg oral tablet (20 sources) Start: End: take 1 tablet by mouth three times daily Buspirone 10 mg tablet Active 10 MG PO Three times daily 270 90 April 07, 2025 10:11am Complies with drug therapy Start: 02-23-2025 End: 02-28-2025 take 7.5 mg by mouth three times daily Buspirone 15 mg tablet Discontinued 7.5 MG PO Three times daily February 23, 2025 9:37am February 28, 2025 3:06pm Start: 04-27-2024 End: 02-23-2025 take 1 tablet by mouth twice daily Buspirone 15 mg tablet Discontinued 0 .ROUTE .COMPLEX 180 April 27, 2024 7:33am February 23, 2025 9:38am TAKE 1 TABLET BY MOUTH TWICE DAILY Start: 08-25-2022 End: 04-27-2024 take 1 tablet by mouth twice daily Buspirone 15 mg tablet Discontinued 15 MG PO Twice daily 180 November 27, 2023 9:10am April 27, 2024 7:33am Start: 08-25-2022 End: 03-01-2023 take 1 tablet by mouth once daily Buspirone 15 mg Tablet Discontinued 15 MG PO Daily August 25, 2022 1:00am March 01, 2023 9:05am busPIRone HCl Ac tive DULoxetine 20 mg delayed release oral capsule (4 sources) Serotonin and Norepinephrine Reuptake Inhibitor Start: 02-28-2025 End: 04-07-2025 take 1 capsule by mouth once daily Duloxetine 20 mg capsule,delayed release(DR/EC) Active 20 MG PO Daily 90 April 07, 2025 10:10am Complies with drug therapy ferrous sulfate (9 sources) take 1 tablet by mouth in [...] 1 CAPSULE BY MOUTH 4 TIMES DAILY Complies with drug therapy Start: 08-25-2022 End: 03-02-2023 take 1 capsule by mouth three times daily Gabapentin 300 mg capsule Discontinued 300 MG PO Three times daily August 25, 2022 1:00am March 02, 2023 5:25pm Start: 08-04-2022 End: 07-28-2024 take 1 capsule by mouth four times daily Gabapentin 300 mg capsule Discontinued 300 MG PO Four times daily 40 10 March 02, 2023 5:25pm July 28, 2024 11:30am Gabapentin Activ e irbesartan (20 sources) Angiotensin 2 Receptor Zachary Irbesartan Active latanoprost 0.05 mg/ml ophthalmic solution (20 sources) Prostaglandin Analog Start: End: take 1 drop(s) into the eye(s) at bedtime latanoprost (Xalatan) 0.005 % ophthalmic solution Indications: Primary open angle glaucoma (POAG) of both eyes, moderate stage Administer 1 drop into both eyes at bedtime 7.5 mL 3 03/31/2025 06/29/2025 Active Start: 07-28-2023 End: 01-12-2025 take 1 [...] 2023 9:05am Start: 08-25-2022 End: 03-01-2023 Latanoprost 0.005 % [...] Daily March 01, 2023 12:00am Multivitamin Tablet (11 sources) Start: 03-01-2023 take 1 tablet by mouth once daily Multivitamin Tablet Active 1 TAB PO Daily March 01, 2023 12:00am Complies with drug therapy Start: 03-01-2023 take 1 tablet by kelly th once daily Multivitamin Tablet Active 1 TAB PO Daily March 01, 2023 12:00am Start: 03-01-2023 take 1 tablet by kelly th once daily Multivitamin Tablet Active 1 TAB PO Daily February 28, 2023 11:00pm ondansetron 4 mg disintegrating oral tablet (1 source) Serotonin-3 Receptor Antagonist Start: 02-23-2025 take 1 tablet by mouth every eight hours as needed for nausea and vomiting Ondansetron 4 mg tablet,disintegrating Active 4 MG PO Every 8 hours as needed for nausea and vomiting 08 15February 23, 2025 12:00am Complies with drug therapy paxlovid (300/100) 20 x 150 mg & 10 x 100mg tablet therapy pack (8 sources) take 3 tablets by mouth every twelve hours Paxlovid (300/100) 20 x 150 MG & 10 x 100MG 3 tablets Orally Twice a day for 5 days Active Paxlovid, 300/100, 20 x 150 MG & 10 x 100MG tablet therapy pack (9 sources) Start: 06-18-2023 take 3 tablets by mouth twice daily Paxlovid, 300/100, 20 x 150 MG & 10 x 100MG tablet therapy pack TAKE 3 TABLETS BY MOUTH TWICE A DAY FOR 5 DAYS 06/18/2023 Active Ranitidine & Diet Manage Prod (20 sources) Ranitidine & t Manage Prod Active tetracycline hydrochloride 500 mg oral capsule (20 sources) Tetracycline-clas s Antimicrobial Start: 09-03-2022 take 1 capsule by [...] solution (20 sources) Prostaglandin Analog Start: 03-01-2023 End: 02-14-2025 take 0.01 drop(s) into the eye(s) once daily Bimatoprost 0.01 % Drops Discontinued 1 DROPS EYE-BOTH Daily March 01, 2023 12:00am February 14, 2025 11:24am Start: 03-01-2023 take 0.01 drop(s) in to the eye(s) once daily Bimatoprost 0.01 % Drops Active 1 DROPS EYE-BOTH Daily March 01, 2023 12:00am Start: 03-01-2023 take 1 drop(s) into the eye(s) once daily Bimatoprost Active 1 DROPS EYE-BOTH Daily March 01, 2023 12:00am Bimatoprost Acti ve cephalexin 500 mg oral capsule (20 sources) Cephalosporin Antibacterial Start: 09-07-2024 End: 09-14-2024 take 1 capsule by mouth three times daily Cephalexin 500 mg capsule Discontinued 500 MG PO Three times daily 06 03September 07, 2024 1:00am September 14, 2024 10:00am Start: 11-21-2022 take 1 capsule by [facility] twice daily Cephalexin 500 MG 1 capsule Orally twice daily for 5 days Nov, Active Start: 03-19-2019 take 1 capsule by [facility] every eight hours Cephalexin 500 MG 1 capsule Orally tid for 5 day(s) Mar, Active doxycycline hyclate 100 mg oral capsule (20 sources) Tetracycline-class Drug Start: 09-14-2024 End: 12-28-2024 [...] 9:06am Start: 09-17-2023 take 1 tablet by [facility] once at bedtime Escitalopram Oxalate 5 MG 1 tablet Orally q HS for 30 days Sep, Active hydrocortisone 10 mg/ml / neomycin 3.5 mg/ml / polymyxin b [id number] unt/ml otic suspension (5 sources) Aminoglycoside Antibacterial, Polymyxin-class Antibacterial, Corticosteroid Start: 12-12-2024 End: 02-14-2025 Dqbtvdak-Zjiecposl-Uj 3.5-10,000-1 mg/mL-unit/mL-% drops,suspension Discontinued 4 DROPS OTIC Every 8 hours 10 7 December 12, 2024 12:00am February 14, 2025 10:18am metoprolol tartrate 25 mg oral tablet (20 [...] RNA Synthetase Inhibitor Antibacterial Start: 09-07-2024 End: 02-14-2025 Mupirocin 2 % ointment Discontinued 1 APPLIC TOPICAL Twice daily 07 06September 21, 2024 11:10am October 10, 2024 6:08pm Nirmatrelvir-Ritona vir (18 sources) Start: 06-20-2023 End: 06-22-2023 Nirmatrelvir-Riton avir [...] Orally twice daily Aug, Active Start: 08-27-2022 End: 02-14-2025 take 1 tablet by mouth once daily Pantoprazole 40 mg Tablet,Delayed Release (Dr/Ec) Discontinued 40 MG PO Daily March 01, 2023 12:00am February 14, 2025 11:26am sertraline 50 mg oral tablet (2 sources) Serotonin Reuptake Inhibitor Start: 02-14-2025 End: 02-28-2025 take 1 tablet by mouth once daily Sertraline 50 mg tablet Discontinued 50 MG PO Daily 30 February 15, 2025 3:23pm February 28, 2025 3:02pm sulfamethoxazole 800 mg / trimethoprim 160 mg oral tablet (17 sources) Dihydrofolate Reductase Inhibitor Antibacterial, Sulfonamide Antimicrobial Start: 11-06-2023 End: 03-19-2024 take 1 tablet by mouth twice daily Sulfamethoxazole- Trimethoprim 800-160 mg tablet Discontinued 1 TAB PO Twice daily 14 November 06, 2023 12:00am March 19, 2024 9:20am temazepam 15 mg oral capsule (20 sources) Benzodiazepine Start: 08-19-2022 End: 10-05-2024 take 1 capsule by mouth at bedtime Temazepam 15 mg capsule Discontinued 15 MG PO Bedtime 90 90 October 05, 2023 1:52pm April 27, 2024 7:33am Temazepam Active valACYclovir 1000 mg oral tablet (6 sources) Herpesvirus Nucleoside Analog DNA Polymerase Inhibitor, Herpes Simplex Virus Nucleoside Analog DNA Polymerase Inhibitor, Herpes Zoster Virus Nucleoside Analog DNA Polymerase Inhibitor Start: 11-15-2024 End: 02-14-2025 Valacyclovir 1 gram tablet Discontinued 1000 MG PO Three times daily 06 03November 15, 2024 12:00am February 14, 2025 10:18am Problems Active Problems Problem Classification Problem Date Documented Da te Episodic/Chronic Abdominal hernia (12 sources) Unilateral inguinal hernia, without obstruction or gangrene, not specified as recurrent; Translations: [Inguinal hernia] Onset: 07-28-2023 Episodic Abdominal pain (20 sources) Right lower quadrant pain; Translations: [Abdominal pain] Episodic Anxiety disorders (20 sources) Generalized anxiety disorder; Translations: [Generalized anxiety disorder] Chronic Aortic; peripheral; and visceral artery aneurysms (20 sources) Aneurysm of ascending aorta; Translations: [Ascending aortic aneurysm] Onset: 12-13-2024 12-31-2023 Chronic Comment on above: Echo: 4.2cm - 12/2023 Echo: 4.2cm - 12/2023 , 3.8cm - 12/2024 Echo: 4.2cm - 12/2023 , 3.8cm - 12/2024, 3.8cm - 02/2025 Biliary tract disease (20 sources) Cholelithiasis without obstruction; Translations: [Calculus of gallbladder without cholecystitis without obstruction] Episodic Cataract (15 sources) Age-related nuclear cataract, right eye; Translations: [...] Coronary arteriosclerosis; Translations: [Atherosclerotic heart disease of nikolai coronary artery without angina pectoris] Onset: 12-13-2024 11-27-2023 Chronic Comment on above: Echo: LVEF 60%, LITZY - 12/2023 Echo: LVEF 60%, LITZY, normal RV size/function - 12/2024 Echo: LVEF 60%, LITZY, normal RV size/function - 12/2023,Echo: LVEF 55%, normal RV size/function, RSVP 12/2024 LHC: moderate LAD di sease - 11/2016Echo: LVEF 60%, LITZY, normal RV size/function - 12/2023,Echo: LVEF 55%, normal RV size/function, RSVP 12/2024 LHC: moderate LAD di sease - 11/2016Echo: LVEF 60%, LITZY, normal RV size/function - 12/2023,Echo: LVEF 55%, normal RV size/function, RSVP 12/2024,Echo: LVEF 55-60%, LITZY, normal RV size/function, RVSP 37 - 03/2025Stress Test NM: no fixed or reversible deficit, normal LVEF, no TID - 03/2025 Crushing injury or internal injury (1 source) Traumatic pneumothorax, initial encounter; Translations: [TRAUMATIC PNEUMOTHORAX INITIAL ENC] Onset: 07-01-2022 Episodic Diseases of mouth; excluding dental (5 sources) Aphthous ulcer of mouth; Translations: [Recurrent oral aphthae] 11-15-2024 Episodic Disorders of lipid metabolism (20 sources) Pure hypercholesterolemia, unspecified; Translations: [Familial hypercholesterolemia] Onset: 08-02-2022 Chronic E Codes: Adverse effects of medical drugs (20 sources) Adverse reaction to drug; Translations: [Adverse [...] Onset: 03-25-2022 07-14-2023 Chronic Hyperplasia of prostate (17 sources) Benign prostatic hyperplasia; Translations: [Benign prostatic [...] sources) Primary insomnia; Translations: [Primary insomnia] Chronic Nonspecific chest pain (2 sources) Other chest pain; Translations: [Other chest pain] Onset: 02-23-2025 Episodic Open wounds of extremities (5 sources) Laceration without foreign body of left ring finger without damage to nail, initial encounter; Translations: [Laceration without foreign body of left elbow, initial encounter] Onset: 03-28-2022 Episodic Other aftercare (1 source) Other fdc (current) drug therapy; Translations: [OTH [facility] CURRENT DRUG THERAPY] Onset: 09-16-2022 Episodic Other aftercare (1 source) 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 EHR Cmte Other diseases of veins and lymphatics (13 sources) Venous insufficiency of leg; Translations: [Venous insufficiency (chronic) (peripheral)] 07-11-2024 Episodic Other diseases of veins and lymphatics (20 sources) Venous insufficiency (chronic) (peripheral); Translations: [Venous (peripheral) insufficiency, unspecified] 07-11-2024 Episodic Other ear and sense organ disorders (6 sources) Sensorineural hearing loss; Translations: [Unspecified sensorineural hearing loss] 12-12-2024 Chronic Other ear and sense organ disorders (2 sources) Unspecified sensorineural hearing loss; Translations: [Sensorineural hearing loss, unspecified] 12-12-2024 Chronic Other ear and sense organ disorders (2 sources) Unspecified otitis externa, left ear; Translations: [Infective otitis externa, unspecified] 12-12-2024 Chronic Other ear and sense organ disorders (1 source) Otitis externa of left ear; Translations: [Unspecified otitis externa, left ear] 12-12-2024 Chronic Other ear and sense organ disorders (4 sources) Impacted cerumen, unspecified ear; Translations: [Impacted cerumen] 10-28-2024 Episodic Other ear and sense organ disorders (2 sources) Otorrhagia, left ear; Translations: [Other otorrhea] 12-12-2024 Episodic Other ear and sense organ disorders (1 source) Otorrhagia of left ear; Translations: [Otorrhagia, left ear] 12-12-2024 Episodic Other fractures (1 source) Multiple [...] Other hereditary and degenerative nervous system conditions (20 sources) Mild cognitive impairment, so stated; Translations: [...] Onset: 06-20-2023 Chronic Other nervous system disorders (20 sources) Neuropathy; Translations: [Polyneuropathy, unspecified] Onset: 06-20-2023 06-20-2023 Chronic Other nervous system disorders (9 sources) Metabolic encephalopathy; Translations: [Metabolic encephalopathy] Chronic Other nervous system disorders (1 source) Metabolic encephalopathy Chronic Other nervous system disorders (20 sources) Disorder of brain; Translations: [Encephalopathy, unspecified] 07-14-2023 Chronic Comment on above: Problem List clean-u p per request of Phys. EHR Cmte Other nervous system disorders (11 sources) Carpal tunnel syndrome of left wrist; Translations: [Carpal tunnel syndrome, left upper limb] 07-11-2024 Chronic Other nervous system disorders (4 sources) Carpal tunnel syndrome, left upper limb; Translations: [Carpal tunnel syndrome] 07-11-2024 Chronic Other nervous system disorders (6 sources) Lesion of ulnar nerve, left upper limb; Translations: [Ulnar neuropathy at elbow of left upper extremity] 12-28-2024 Chronic Other nervous system disorders (4 sources) Other disturbances of skin sensation; Translations: [OTHER DISTURBANCES SKIN SENSATION] Onset: 07-28-2022 Episodic Other nervous system disorders (19 sources) Numbness of hand; Translations: [Anesthesia of skin] 03-01-2023 Episodic Comment on above: Problem List clean-u p per request of PhysApril ZEPEDA Cmte Other nervous system disorders (1 source) [...] Translations: [Patient encounter status] Onset: 08-02-2022 Episodic Otitis media and related conditions (3 sources) Dysfunction of right eustachian tube; Translations: [Unspecified Eustachian tube disorder, right ear] 01-26-2025 Episodic Pleurisy; pneumothorax; pulmonary collapse (1 source) Pleural effusion, not elsewhere classified; Translations: [PLEURAL EFFUSION NEC] Onset: 07-02-2022 Episodic Residual codes; unclassified (1 source) Disorientation, unspecified Episodic Residual codes; unclassified (18 sources) Altered mental status; Translations: [Altered mental [...] object(s), not elsewhere classified, initial encounter; Translations: [[facility] OTH SHRP OB NOT ELSW CLASS INI] Onset: 04-01-2022 Episodic Esophageal disorders (6 sources) Esophageal disorders Immunizations and screening for infectious disease (1 source) Encounter for immunization; Translations: [ENCOUNTER FOR IMMUNIZATION] Onset: 04-01-2022 Episodic Inflammation; infection of eye (except that caused by tuberculosis or sexually transmitteddisease) (11 sources) Blepharitis of upper and lower eyelids of bilateral eyes; Translations: [Unspecified blepharitis right eye, upper and lower eyelids] Onset: 04-10-2023 04-10-2023 Episodic Other connective tissue disease (2 sources) Pain in right leg; Translations: [Pain in limb] Onset: 03-01-2023 03-01-2023 Episodic Other connective tissue disease (1 source) Pain in left leg; Translations: [Pain in left leg] Onset: 03-01-2023 Episodic Other eye disorders (11 sources) Dry eyes; Translations: [Dry eye syndrome [...] Test Name Value Interpretation Reference Range Facility 36on 04-03-2025 36 Spoke with patient's and informed her of test results. Normal [facility] 36on 03-29-2025 36 Regarding stress preet t from 2025: Betsy Chavez MD to Ri 03/29/25 7:27 AM Please reassure him the stress test is normal Thanks. Can you take a look at the echo result before I call him please? Thank you! [facility] Orders Onlyon 03-28-2025 Orders Only [id number] Yonatan Patel 1945 M Date Provider Department Center 03/28/2025 [id number], HISTORICAL CARD [facility] Family History Problem Relation Age of Onset Heart attack Father Heart attack Brother Family Status - Relation Status Age at Mother Father Sister Alive Brother [facility] Orders Onlyon 03-27-2025 Orders Only [id number] Yonatan Patel 1945 M Date Provider Department Center 03/27/2025 [id number], HISTORICAL CARD [facility] Family History Problem Relation Age of Onset Heart attack Father Heart attack Brother Family Status - Relation Status Age at Mother Father Sister Alive Brother [facility] Basophils Auto (Bld) [#/Vol] Ordered By: Omid Lockhart on 02-28-2025 Basophils (Bld) [#/Vol] 0.0 10 3/uL 0.0-0.1 [facility] Basophils/100 WBC Auto (Bld) Ordered By: Omid Lockhart on 02-28-2025 Basophils/100 WBC (Bld) 0.5 % 0.2-2.0 [facility] Eosinophils/100 WBC Auto (Bl d)Ordered By: Omid Lockhart on 02-28-2025 Eosinophils/100 WBC (Bld) 0.5 % Low 0.9-7.0 [facility] Erythrocyte distribution wid th Auto (RBC) [Ratio]Ordered By: Omid Lockhart on 02-28-2025 Erythrocyte distribution width (RBC) [Ratio] 14.3 % 11.0-15.0 [facility] Globulin Calc (S) [Mass/Vol] Ordered By: Omid Lockhart on 02-28-2025 Globulin (S) [Mass/Vol] 3.1 g/dL [facility] Glomerular filtration rate ( GFR) estimation in non- AmericanOrdered By: Omid Lockhart on 02-28-2025 GFR/1.73 sq M.predicted among non-blacks MDRD (S/P/Bld) [Vol rate/Area] mL/min/{1.73_m2} >=60 mL/min/1.7 3m 2 [facility] Hematocrit Auto (Bld) [Volum e fraction]Ordered By: Omid Lockhart on 02-28-2025 Hematocrit (Bld) [Volume fraction] 43.6 % 42.0-54.0 [facility] Hemoglobin [Mass/volume] in BloodOrdered By: Omid Lockhart on 02-28-2025 Hemoglobin (Bld) [Mass/Vol] 14.7 g/dL 14.0-18.0 [facility] Laboratory - Chemistry and C hemistry - challengeOrdered By: Omid Lockhart on 02-28-2025 Bilirubin Ql (U) Negative NEGATIVE [facility] Glucose (U) [Mass/Vol] Negative NEGATIVE Fi relaFormerly [facility] Ketones Ql (U) Negative NEGATIVE [facility] pH (U) 7.0 [pH] 5.0-9.0 [facility] Specific gravity (U) [Rel density] <=1.005 Abnormal 1.005-1.02 5 [facility] Urobilinogen Qn (U) 0.2 {[place]'U}/dL 0.2-1.0 [facility] Albumin [Mass/Vol] 3.9 g/dL 3.4-5.0 [facility] ALP [Catalytic activity/Vol] 76 U/L 46-116 [facility] ALT [Catalytic activity/Vol] 47 U/L 16-63 [facility] AST [Catalytic activity/Vol] 32 U/L 15-37 [facility] Bilirubin [Mass/Vol] 2.4 mg/dL High 0.2-1.0 [facility] Bilirubin.direct [Mass/Vol] 0.3 mg/dL High 0.0-0.2 [facility] Calcium [Mass/Vol] 9.8 mg/dL 8.5-10.1 [facility] Chloride [Moles/Vol] 103 mmol/L 98-107 [facility] CO2 [Moles/Vol] 25.6 mmol/L 21.0-32.0 [facility] Creatinine [Mass/Vol] 0.84 mg/dL 0.70-1.30 [facility] GFR/1.73 sq M.predicted MDRD (S/P/Bld) [Vol rate/Area] mL/min/{1.73_m2} >=60 mL/min/1.7 3m 2 [facility] Glucose [Mass/Vol] 104 mg/dL 74-106 [facility] Potassium [Moles/Vol] 4.1 mmol/L 3.5-5.1 [facility] Protein [Mass/Vol] 7.0 g/dL 6.4-8.2 [facility] [facility] Sodium [Moles/Vol] 137 mmol/L 136-145 [facility] Urea nitrogen [Mass/Vol] 16.0 mg/dL 7.0-18.0 [facility] Urea nitrogen/Creatinine [Mass ratio] 19.0 mg/mg [facility] Laboratory - Hematology and Cell countsOrdered By: Omid Lockhart on 02-28-2025 Immature granulocytes/100 WBC (Bld) 1.0 % High 0.0-0.5 [facility] Laboratory - Specimen inform ationOrdered By: Omid Lockhart on 02-28-2025 Appearance (U) CLEAR CLEAR [facility] Color (U) LT. YELLOW YELLOW [facility] Laboratory - UrinalysisOrder ed By: Omid Lockhart on 02-28-2025 Leukocyte esterase Test strip Ql (U) Negative NEGATIVE [facility] Mucus Ql (Urine sed) NONE SEEN NONE SEEN [facility] Nitrite Ql (U) Negative NEGATIVE [facility] Protein Ql (U) Negative NEG/TRACE [facility] Leukocytes [#/volume] correc airam for nucleated erythrocytes in Blood by Automated counOrdered By: Omid Lockhart on 02-28-2025 WBC corrected for nucl RBC Auto (Bld) [#/Vol] 6.0 10 3/uL 4.0-11.0 [facility] Lymphocytes Auto (Bld) [#/Vo l]Ordered By: Omid Lockhart on 02-28-2025 Lymphocytes (Bld) [#/Vol] 1.3 10 3/uL 1.2-3.8 [facility] Lymphocytes/100 WBC Auto (Bl d)Ordered By: Omid Lockhart on 02-28-2025 Lymphocytes/100 WBC (Bld) 21.7 % 20.5-60.0 [facility] MCH Auto (RBC) [Entitic mass ]Ordered By: Omid Lockhart on 02-28-2025 MCH (RBC) [Entitic mass] 29.8 pg 25.9-34.0 [facility] MCHC Auto (RBC) [Mass/Vol]Or dered By: Omid Lockhart on 02-28-2025 MCHC (RBC) [Mass/Vol] 33.7 g/dL 29.9-35.2 [facility] MCV Auto (RBC) [Entitic vol] Ordered By: Omid Lockhart on 02-28-2025 MCV (RBC) [Entitic vol] 88.4 fL 80.0-94.0 [facility] Monocytes Auto (Bld) [#/Vol] Ordered By: Omid Lockhart on 02-28-2025 Monocytes (Bld) [#/Vol] 0.6 10 3/uL 0.3-0.8 [facility] Monocytes/100 WBC Auto (Bld) Ordered By: Omid Lockhart on 02-28-2025 Monocytes/100 WBC (Bld) 9.2 % 1.7-12.0 [facility] Neutrophils Auto (Bld) [#/Vo l]Ordered By: Omid Lockhart on 02-28-2025 Neutrophils (Bld) [#/Vol] 4.0 10 3/uL 1.4-6.5 [facility] Neutrophils/100 WBC Auto (Bl d)Ordered By: Omid Lockhart on 02-28-2025 Neutrophils/100 WBC (Bld) 67.1 % 43.0-75.0 [facility] No Panel InformationOrdered By: Omid Lockhart on 02-28-2025 Urine Bacteria TRACE #/HPF Abnormal NONE SEEN [facility] Urine Occult Blood Negative NEGATIVE [facility] Urine Other Casts NONE SEEN #/LPF NONE SEEN [facility] Urine Other Crystals None Seen #/HPF None Seen [facility] Urine RBC NONE SEEN #/HPF 0-2 [facility] Urine Squamous Epithelial Cells NONE SEEN #/LPF NONE/RARE [facility] Urine WBC NONE SEEN #/HPF NONE SEEN [facility] Eosinophils # (Auto) 0.0 10 3/uL 0.0-0.7 [facility] Immature Granulocyte # (Auto) 0.06 10 3/uL High 0.00-0.03 [facility] Troponin I High Sensitivity 6.9 pg/mL 4.0-76.1 [facility] Comment on above: CUT-OFF POINTS HAVE BEEN ESTABLISHED BASED ON THE FOURTHUNIVERSAL DEFINITION OF MYOCARDIAL INFARCTION. THE UPPERREFERENCE LIMIT (URL) OF TROPONIN, DEFINED THE 99THPERCENTILE OF cTnI DISTRIBUTION IN A REFERENCE POPULATION,HAS BEEN CONFIRMED THE DECISION THRESHOLD FOR MIDIAGNOSIS.99TH PERCENTILE = 76.2 PG/MLNOTE: HIGH-SENSITIVITY TROPONIN ASSAY IS NOT INTENDED TO BEUSED IN ISOLATION BUT SHOULD BE INTERPRETED IN CONJUNCTIONWITH OTHER DIAGNOSTIC AND CLINICAL INFORMATION. Platelet mean volume Auto (B ld) [Entitic vol]Ordered By: Omid Lockhart on 02-28-2025 Platelet mean volume (Bld) [Entitic vol] 10.0 fL 9.5-13.5 [facility] Platelets Auto (Bld) [#/Vol] Ordered By: Omid Lockhart on 02-28-2025 Platelets (Bld) [#/Vol] 176 10 3/uL 150-450 [facility] RBC Auto (Bld) [#/Vol]Ordere d By: Omid Lockhart on 02-28-2025 RBC (Bld) [#/Vol] 4.93 10 6/uL 4.70-6.10 [facility] Serum or plasma albumin/glob ulin mass ratioOrdered By: Omid Lockhart on 02-28-2025 Albumin/Globulin [Mass ratio] 1.3 {ratio} [facility] Serum or plasma anion gap de terminationOrdered By: Omid Lockhart on 02-28-2025 Anion gap [Moles/Vol] 12.5 mmol/L [facility] Office Visiton 02-23-2025 Follow-up visit [id number] Yonatan Patel 1945 M Date Provider Department Center 02/23/2025 Jose-BETSY CHAVEZ [facility] Family History Problem Relation Age of Onset Heart attack Father Heart attack Brother Family Status - Relation Status Age at Mother Father Sister Alive Brother Level of Service:58650 [place] OFFICE/OUTPATIENT ESTABLISHED MOD MDM 30 MIN Normal [facility] Basophils Auto (Bld) [#/Vol] Ordered By: Anjelica Long on 02-21-2025 Basophils (Bld) [#/Vol] 0.0 10 3/uL 0.0-0.1 [facility] Basophils/100 WBC Auto (Bld) Ordered By: Anjelica Long on 02-21-2025 Basophils/100 WBC (Bld) 0.6 % 0.2-2.0 [facility] Eosinophils/100 WBC Auto (Bl d)Ordered By: Anjelica Long on 02-21-2025 Eosinophils/100 WBC (Bld) 0.6 % Low 0.9-7.0 [facility] Erythrocyte distribution wid th Auto (RBC) [Ratio]Ordered By: Anjelica Long on 02-21-2025 Erythrocyte distribution width (RBC) [Ratio] 14.2 % 11.0-15.0 [facility] Globulin Calc (S) [Mass/Vol] Ordered By: Anjelica Long on 02-21-2025 Globulin (S) [Mass/Vol] 3.0 g/dL [facility] Glomerular filtration rate ( GFR) estimation in non- AmericanOrdered By: Anjelica Long on 02-21-2025 GFR/1.73 sq M.predicted among non-blacks MDRD (S/P/Bld) [Vol rate/Area] mL/min/{1.73_m2} >=60 mL/min/1.7 3m 2 [facility] Hematocrit Auto (Bld) [Volum e fraction]Ordered By: Anjelica Long on 02-21-2025 Hematocrit (Bld) [Volume fraction] 42.4 % 42.0-54.0 [facility] Hemoglobin [Mass/volume] in BloodOrdered By: Anjelica Long on 02-21-2025 Hemoglobin (Bld) [Mass/Vol] 14.5 g/dL 14.0-18.0 [facility] Laboratory - Chemistry and C hemistry - challengeOrdered By: Anjelica Long on 02-21-2025 Albumin [Mass/Vol] 3.9 g/dL 3.4-5.0 [facility] ALP [Catalytic activity/Vol] 74 U/L 46-116 [facility] ALT [Catalytic activity/Vol] 38 U/L 16-63 [facility] AST [Catalytic activity/Vol] 31 U/L 15-37 [facility] Bilirubin [Mass/Vol] 2.1 mg/dL High 0.2-1.0 [facility] Calcium [Mass/Vol] 9.9 mg/dL 8.5-10.1 [facility] Chloride [Moles/Vol] 105 mmol/L 98-107 [facility] CO2 [Moles/Vol] 22.8 mmol/L 21.0-32.0 [facility] Creatinine [Mass/Vol] 1.09 mg/dL 0.70-1.30 [facility] GFR/1.73 sq M.predicted MDRD (S/P/Bld) [Vol rate/Area] mL/min/{1.73_m2} >=60 mL/min/1.7 3m 2 [facility] Glucose [Mass/Vol] 107 mg/dL High 74-106 [facility] Potassium [Moles/Vol] 4.3 mmol/L 3.5-5.1 [facility] Protein [Mass/Vol] 6.9 g/dL 6.4-8.2 [facility] Sodium [Moles/Vol] 141 mmol/L 136-145 [facility] Urea nitrogen [Mass/Vol] 23.0 mg/dL High 7.0-18.0 [facility] Urea nitrogen/Creatinine [Mass ratio] 21.1 mg/mg [facility] Laboratory - Hematology and Cell countsOrdered By: Anjelica Long on 02-21-2025 Immature granulocytes/100 WBC (Bld) 0.3 % 0.0-0.5 [facility] Leukocytes [#/volume] correc airam for nucleated erythrocytes in Blood by Automated counOrdered By: Anjelica Long on 02-21-2025 WBC corrected for nucl RBC Auto (Bld) [#/Vol] 7.2 10 3/uL 4.0-11.0 [facility] Lymphocytes Auto (Bld) [#/Vo l]Ordered By: Anjelica Long on 02-21-2025 Lymphocytes (Bld) [#/Vol] 1.0 10 3/uL Low 1.2-3.8 [facility] Lymphocytes/100 WBC Auto (Bl d)Ordered By: Anjelica Long on 02-21-2025 Lymphocytes/100 WBC (Bld) 14.4 % Low 20.5-60.0 [facility] MCH Auto (RBC) [Entitic mass ]Ordered By: Anjelica Long on 02-21-2025 MCH (RBC) [Entitic mass] 30.0 pg 25.9-34.0 [facility] MCHC Auto (RBC) [Mass/Vol]Or dered By: Anjelica Long on 02-21-2025 MCHC (RBC) [Mass/Vol] 34.2 g/dL 29.9-35.2 [facility] MCV Auto (RBC) [Entitic vol] Ordered By: Anjelica Long on 02-21-2025 MCV (RBC) [Entitic vol] 87.8 fL 80.0-94.0 [facility] Monocytes Auto (Bld) [#/Vol] Ordered By: Anjelica Ethan on 02-21-2025 Monocytes (Bld) [#/Vol] 0.8 10 3/uL 0.3-0.8 [facility] Monocytes/100 WBC Auto (Bld) Ordered By: Anjelica Ethan on 02-21-2025 Monocytes/100 WBC (Bld) 10.9 % 1.7-12.0 [facility] Neutrophils Auto (Bld) [#/Vo l]Ordered By: Anjelica Ethan on 02-21-2025 Neutrophils (Bld) [#/Vol] 5.2 10 3/uL 1.4-6.5 [facility] Neutrophils/100 WBC Auto (Bl d)Ordered By: Anjelica Ethan on 02-21-2025 Neutrophils/100 WBC (Bld) 73.2 % 43.0-75.0 [facility] No Panel InformationOrdered By: [facility] on 02-21-2025 Eosinophils # (Auto) 0.0 10 3/uL 0.0-0.7 [facility] Immature Granulocyte # (Auto) 0.02 10 3/uL 0.00-0.03 [facility] Troponin I High Sensitivity 7.0 pg/mL 4.0-76.1 [facility] Comment on above: CUT-OFF POINTS HAVE BEEN ESTABLISHED BASED ON THE FOURTHUNIVERSAL DEFINITION OF MYOCARDIAL INFARCTION. THE UPPERREFERENCE LIMIT (URL) OF TROPONIN, DEFINED THE 99THPERCENTILE OF cTnI DISTRIBUTION IN A REFERENCE POPULATION,HAS BEEN CONFIRMED THE DECISION THRESHOLD FOR MIDIAGNOSIS.99TH PERCENTILE = 76.2 PG/MLNOTE: HIGH-SENSITIVITY TROPONIN ASSAY IS NOT INTENDED TO BEUSED IN ISOLATION BUT SHOULD BE INTERPRETED IN CONJUNCTIONWITH OTHER DIAGNOSTIC AND CLINICAL INFORMATION. Platelet mean volume Auto (B ld) [Entitic vol]Ordered By: Anjelica Ethan on 02-21-2025 Platelet mean volume (Bld) [Entitic vol] 10.1 fL 9.5-13.5 [facility] Platelets Auto (Bld) [#/Vol] Ordered By: Anjelica Ethan on 02-21-2025 Platelets (Bld) [#/Vol] 187 10 3/uL 150-450 [facility] RBC Auto (Bld) [#/Vol]Ordere d By: Anejlica Ethan on 02-21-2025 RBC (Bld) [#/Vol] 4.83 10 6/uL 4.70-6.10 [facility] Serum or plasma albumin/glob ulin mass ratioOrdered By: Anjelica Ethan on 02-21-2025 Albumin/Globulin [Mass ratio] 1.3 {ratio} [facility] Serum or plasma anion gap de terminationOrdered By: Anjelica Ethan on 02-21-2025 Anion gap [Moles/Vol] 17.5 mmol/L [facility] Activated partial thrombopla stin time (aPTT) in platelet poor plasma by coagulation aOrdered By: Natalie Dunn on 02-12-2025 aPTT Coag (PPP) [Time] 27.6 s 22.3-36.2 [facility] Basophils Auto (Bld) [#/Vol] Ordered By: Natalie Dunn on 02-12-2025 Basophils (Bld) [#/Vol] 0.0 10 3/uL 0.0-0.1 [facility] Basophils/100 WBC Auto (Bld) Ordered By: Natalie Dunn on 02-12-2025 Basophils/100 WBC (Bld) 0.5 % 0.2-2.0 [facility] Eosinophils/100 WBC Auto (Bl d)Ordered By: Natalie Dunn on 02-12-2025 Eosinophils/100 WBC (Bld) 1.0 % 0.9-7.0 [facility] Erythrocyte distribution wid th Auto (RBC) [Ratio]Ordered By: Natalie Dunn on 02-12-2025 Erythrocyte distribution width (RBC) [Ratio] 14.2 % 11.0-15.0 [facility] Estimated glomerular filtrat ion rate (GFR) non- AmericanOrdered By: Cisco Mcadams on 02-12-2025 GFR/1.73 sq M.predicted among non-blacks MDRD (S/P/Bld) [Vol rate/Area] mL/min/{1.73_m2} >=60 mL/min/1.7 3m 2 [facility] Globulin Calc (S) [Mass/Vol] Ordered By: Cisco Mcadams on 02-12-2025 Globulin (S) [Mass/Vol] 3.0 g/dL [facility] Hematocrit Auto (Bld) [Volum e fraction]Ordered By: Natalie Dunn on 02-12-2025 Hematocrit (Bld) [Volume fraction] 43.0 % 42.0-54.0 [facility] Hemoglobin [Mass/volume] in BloodOrdered By: Natalie Dunn on 02-12-2025 Hemoglobin (Bld) [Mass/Vol] 14.7 g/dL 14.0-18.0 [facility] INR in Platelet poor plasma by Coagulation assayOrdered By: Natalie Dunn on 02-12-2025 INR Coag (PPP) [Relative time] 1.08 {INR} [facility] Comment on above: DESIRED INR:2.0-3.0 CONDITIONS NOT LISTED BELOW2.5-3.5 FOR PROSTHETIC HEART VALVE REPLACEMENT2.5-3.5 RECURRENT THROMBOSIS Laboratory - Chemistry and C hemistry - challengeOrdered By: Natalie Dunn on 02-12-2025 Bilirubin Ql (U) Negative NEGATIVE [facility] Glucose (U) [Mass/Vol] Negative NEGATIVE [facility] Ketones Ql (U) Negative NEGATIVE [facility] pH (U) 7.5 [pH] 5.0-9.0 [facility] Specific gravity (U) [Rel density] 1.015 1.005-1.02 5 [facility] Urobilinogen Qn (U) 0.2 {[place]'U}/dL 0.2-1.0 [facility] Natriuretic peptide B (Bld) [Mass/Vol] 299.0 pg/mL <=1800.0 [facility] Laboratory - Chemistry and C hemistry - challengeOrdered By: Cisco Mcadams on 02-12-2025 Albumin [Mass/Vol] 3.9 g/dL 3.4-5.0 [facility] ALP [Catalytic activity/Vol] 75 U/L 46-116 [facility] ALT [Catalytic activity/Vol] 44 U/L 16-63 [facility] AST [Catalytic activity/Vol] 38 U/L High 15-37 [facility] Bilirubin [Mass/Vol] 1.5 mg/dL High 0.2-1.0 [facility] Calcium [Mass/Vol] 9.9 mg/dL 8.5-10.1 [facility] Chloride [Moles/Vol] 106 mmol/L 98-107 [facility] CO2 [Moles/Vol] 22.4 mmol/L 21.0-32.0 [facility] Creatinine [Mass/Vol] 1.08 mg/dL 0.70-1.30 [facility] GFR/1.73 sq M.predicted MDRD (S/P/Bld) [Vol rate/Area] mL/min/{1.73_m2} >=60 mL/min/1.7 3m 2 [facility] Glucose [Mass/Vol] 106 mg/dL 74-106 [facility] Potassium [Moles/Vol] 4.2 mmol/L 3.5-5.1 [facility] Protein [Mass/Vol] 6.9 g/dL 6.4-8.2 [facility] Sodium [Moles/Vol] 142 mmol/L 136-145 [facility] Urea nitrogen [Mass/Vol] 22.0 mg/dL High 7.0-18.0 [facility] Urea nitrogen/Creatinine [Mass ratio] 20.4 mg/mg [facility] Laboratory - Hematology and Cell countsOrdered By: Natalie Dunn on 02-12-2025 Immature granulocytes/100 WBC (Bld) 0.2 % 0.0-0.5 [facility] Laboratory - Specimen inform ationOrdered By: Natalie Dunn on 02-12-2025 Appearance (U) CLEAR CLEAR [facility] Color (U) LT. YELLOW YELLOW [facility] Laboratory - UrinalysisOrder ed By: Natalie Dunn on 02-12-2025 Leukocyte esterase Test strip Ql (U) Negative NEGATIVE [facility] Mucus Ql (Urine sed) NONE SEEN NONE SEEN [facility] Nitrite Ql (U) Negative NEGATIVE [facility] Protein Ql (U) Negative NEG/TRACE [facility] Leukocytes [#/volume] correc airam for nucleated erythrocytes in Blood by Automated counOrdered By: Natalie Dunn on 02-12-2025 WBC corrected for nucl RBC Auto (Bld) [#/Vol] 6.0 10 3/uL 4.0-11.0 [facility] Lymphocytes Auto (Bld) [#/Vo l]Ordered By: Natalie Dunn on 02-12-2025 Lymphocytes (Bld) [#/Vol] 1.5 10 3/uL 1.2-3.8 [facility] Lymphocytes/100 WBC Auto (Bl d)Ordered By: Natalie Dunn on 02-12-2025 Lymphocytes/100 WBC (Bld) 24.4 % 20.5-60.0 [facility] MCH Auto (RBC) [Entitic mass ]Ordered By: Natalie Dunn on 02-12-2025 MCH (RBC) [Entitic mass] 29.9 pg 25.9-34.0 [facility] MCHC Auto (RBC) [Mass/Vol]Or dered By: Natalie Dunn on 02-12-2025 MCHC (RBC) [Mass/Vol] 34.2 g/dL 29.9-35.2 [facility] MCV Auto (RBC) [Entitic vol] Ordered By: Natalie Dunn on 02-12-2025 MCV (RBC) [Entitic vol] 87.6 fL 80.0-94.0 [facility] Monocytes Auto (Bld) [#/Vol] Ordered By: Natalie Dunn on 02-12-2025 Monocytes (Bld) [#/Vol] 0.7 10 3/uL 0.3-0.8 [facility] Monocytes/100 WBC Auto (Bld) Ordered By: Natalie Dunn on 02-12-2025 Monocytes/100 WBC (Bld) 10.9 % 1.7-12.0 [facility] Neutrophils Auto (Bld) [#/Vo l]Ordered By: Natalie Dunn on 02-12-2025 Neutrophils (Bld) [#/Vol] 3.8 10 3/uL 1.4-6.5 [facility] Neutrophils/100 WBC Auto (Bl d)Ordered By: Natalie Dunn on 02-12-2025 Neutrophils/100 WBC (Bld) 63.0 % 43.0-75.0 [facility] No Panel InformationOrdered By: Natalie Dunn on 02-12-2025 Urine Bacteria TRACE #/HPF Abnormal NONE SEEN [facility] Urine Occult Blood Negative NEGATIVE [facility] Urine Other Casts NONE SEEN #/LPF [facility] Urine Other Crystals None Seen #/HPF None Seen [facility] Urine RBC NONE SEEN #/HPF 0-2 [facility] Urine Squamous Epithelial Cells RARE #/LPF NONE/RARE [facility] Urine WBC 0-2 #/HPF Abnormal NONE SEEN [facility] Eosinophils # (Auto) 0.1 10 3/uL 0.0-0.7 [facility] Immature Granulocyte # (Auto) 0.01 10 3/uL 0.00-0.03 [facility] Troponin I High Sensitivity 7.3 pg/mL 4.0-76.1 [facility] Comment on above: CUT-OFF POINTS HAVE BEEN ESTABLISHED BASED ON THE FOURTHUNIVERSAL DEFINITION OF MYOCARDIAL INFARCTION. THE UPPERREFERENCE LIMIT (URL) OF TROPONIN, DEFINED THE 99THPERCENTILE OF cTnI DISTRIBUTION IN A REFERENCE POPULATION,HAS BEEN CONFIRMED THE DECISION THRESHOLD FOR MIDIAGNOSIS.99TH PERCENTILE = 76.2 PG/MLNOTE: HIGH-SENSITIVITY TROPONIN ASSAY IS NOT INTENDED TO BEUSED IN ISOLATION BUT SHOULD BE INTERPRETED IN CONJUNCTIONWITH OTHER DIAGNOSTIC AND CLINICAL INFORMATION. Platelet mean volume Auto (B ld) [Entitic vol]Ordered By: Natalie Dunn on 02-12-2025 Platelet mean volume (Bld) [Entitic vol] 10.1 fL 9.5-13.5 [facility] Platelets Auto (Bld) [#/Vol] Ordered By: Natalie Dunn on 02-12-2025 Platelets (Bld) [#/Vol] 179 10 3/uL 150-450 [facility] Prothrombin time (PT)Ordered By: Natalie Dunn on 02-12-2025 PT Coag (PPP) [Time] 11.4 s 9.0-11.6 [facility] RBC Auto (Bld) [#/Vol]Ordere d By: Natalie Dunn on 02-12-2025 RBC (Bld) [#/Vol] 4.91 10 6/uL 4.70-6.10 [facility] Serum or plasma albumin/glob ulin mass ratioOrdered By: Cisco Mcadams on 02-12-2025 Albumin/Globulin [Mass ratio] 1.3 {ratio} [facility] Serum or plasma anion gap de terminationOrdered By: Cisco Mcadams on 02-12-2025 Anion gap [Moles/Vol] 17.8 mmol/L [facility] Estimated glomerular filtrat ion rate (GFR) non- Americanon 01-06-2025 GFR/1.73 sq M.predicted among non-blacks MDRD (S/P/Bld) [Vol rate/Area] Estimated glomerular filtration rate (GFR) non- >=60 mL/min/1.7 3m 2 [facility] GFR/1.73 sq M.predicted among non-blacks MDRD (S/P/Bld) [Vol rate/Area] mL/min/{1.73_m2} >=60 mL/min/1.7 3m 2 [facility] Laboratory - Chemistry and C hemistry - challengeon 01-06-2025 Creatinine [Mass/Vol] 0.86 mg/dL 0.70-1.30 [facility] GFR/1.73 sq M.predicted MDRD (S/P/Bld) [Vol rate/Area] mL/min/{1.73_m2} >=60 mL/min/1.7 3m 2 [facility] Office Visiton 12-13-2024 Follow-up visit [id number] Yonatan Patel 1945 M Date Provider Department Center 12/13/2024 271-BETSY CHAVEZ [facility] Family History Problem Relation Age of Onset Heart attack Father Heart attack Brother Family Status - Relation Status Age at Mother Father Sister Alive Brother Level of Service:[address] [place] OFFICE/OUTPATIENT ESTABLISHED MOD MDM 30 MIN Normal [facility] Basophils Auto (Bld) [#/Vol] on 09-02-2024 Basophils (Bld) [#/Vol] Automated basophil count 0.0-0.1 [facility] Basophils/100 WBC Auto (Bld) on 09-02-2024 Basophils/100 WBC (Bld) Automated basophil % 0.2-2.0 [facility] Cholesterol in LDL Calc [Mas s/Vol]on 09-02-2024 Cholesterol in LDL [Mass/Vol] Cholesterol in LDL [Mass/volume] in Serum or Plasma by calculation [facility] Comment on above: <100 mg/dl [id number] 0-129 mg/dl NEAR OR ABOVE [id number] mg/dl BORDERLINE [id number] mg/dl HIGH>190 mg/dl VERY HIGH Cholesterol in VLDL Calc [Ma ss/Vol]on 09-02-2024 Cholesterol in VLDL [Mass/Vol] Cholesterol in VLDL [Mass/volume] in Serum or Plasma by calculation [facility] Eosinophils/100 WBC Auto (Bl d)on 09-02-2024 Eosinophils/100 WBC (Bld) Automated eosinophil % 0.9-7.0 [facility] Erythrocyte distribution wid th Auto (RBC) [Ratio]on 09-02-2024 Erythrocyte distribution width (RBC) [Ratio] Erythrocyte distribution width [Ratio] by Automated count 11.0-15.0 [facility] Estimated glomerular filtrat ion rate (GFR) non- Americanon 09-02-2024 GFR/1.73 sq M.predicted among non-blacks MDRD (S/P/Bld) [Vol rate/Area] Estimated glomerular filtration rate (GFR) non- >=60 mL/min/1.7 3m 2 [facility] Globulin Calc (S) [Mass/Vol] on 09-02-2024 Globulin (S) [Mass/Vol] Serum globulin measurement by calculation (mass/volume) [facility] Hematocrit Auto (Bld) [Volum e fraction]on 09-02-2024 Hematocrit (Bld) [Volume fraction] Hematocrit [Volume Fraction] of Blood by Automated count 42.0-54.0 [facility] Hemoglobin [Mass/volume] in Bloodon 09-02-2024 Hemoglobin (Bld) [Mass/Vol] Hemoglobin [Mass/volume] in Blood 14.0-18.0 [facility] Laboratory - Chemistry and C hemistry - challengeon 09-02-2024 Albumin [Mass/Vol] 3.7 g/dL 3.4-5.0 [facility] ALP [Catalytic activity/Vol] 69 U/L 46-116 [facility] ALT [Catalytic activity/Vol] 48 U/L 16-63 [facility] AST [Catalytic activity/Vol] 34 U/L 15-37 [facility] Bilirubin [Mass/Vol] 1.3 mg/dL High 0.2-1.0 [facility] Calcium [Mass/Vol] 9.4 mg/dL 8.5-10.1 [facility] Chloride [Moles/Vol] 108 mmol/L High 98-107 [facility] Cholesterol [Mass/Vol] 88 mg/dL <=200 [facility] Cholesterol in HDL [Mass/Vol] 43 mg/dL 40-60 [facility] Comment on above: > or =60 mg/dl - LOW CARDIOVASCULAR RISK<40 mg/dl - HIGH CARDIOVASCULAR RISK CO2 [Moles/Vol] 26.8 mmol/L 21.0-32.0 [facility] Creatinine [Mass/Vol] 1.01 mg/dL 0.70-1.30 [facility] GFR/1.73 sq M.predicted MDRD (S/P/Bld) [Vol rate/Area] mL/min/{1.73_m2} >=60 mL/min/1.7 3m 2 [facility] Glucose [Mass/Vol] 105 mg/dL 74-106 [facility] Potassium [Moles/Vol] 4.3 mmol/L 3.5-5.1 [facility] Protein [Mass/Vol] 6.5 g/dL 6.4-8.2 [facility] Sodium [Moles/Vol] 143 mmol/L 136-145 [facility] Triglyceride [Mass/Vol] 74 mg/dL <=150 [facility] Urea nitrogen [Mass/Vol] 20.0 mg/dL High 7.0-18.0 [facility] Urea nitrogen/Creatinine [Mass ratio] 19.8 mg/mg [facility] Laboratory - Hematology and Cell countson 09-02-2024 Immature granulocytes/100 WBC (Bld) 0.4 % 0.0-0.5 [facility] Leukocytes [#/volume] correc airam for nucleated erythrocytes in Blood by Automated counon 09-02-2024 WBC corrected for nucl RBC Auto (Bld) [#/Vol] Leukocytes [#/volume] corrected for nucleated erythrocytes in Blood by Automated coun 4.0-11.0 [facility] Lymphocytes Auto (Bld) [#/Vo l]on 09-02-2024 Lymphocytes (Bld) [#/Vol] Lymphocytes [#/volume] in Blood by Automated count 1.2-3.8 [facility] Lymphocytes/100 WBC Auto (Bl d)on 09-02-2024 Lymphocytes/100 WBC (Bld) Lymphocytes/100 leukocytes in Blood by Automated count 20.5-60.0 [facility] MCH Auto (RBC) [Entitic mass ]on 09-02-2024 MCH (RBC) [Entitic mass] MCH [Entitic mass] by Automated count 25.9-34.0 [facility] MCHC Auto (RBC) [Mass/Vol]on 09-02-2024 MCHC (RBC) [Mass/Vol] MCHC [Mass/volume] by Automated count 29.9-35.2 [facility] MCV Auto (RBC) [Entitic vol] on 09-02-2024 MCV (RBC) [Entitic vol] MCV [Entitic volume] by Automated count 80.0-94.0 [facility] Monocytes Auto (Bld) [#/Vol] on 09-02-2024 Monocytes (Bld) [#/Vol] Automated blood monocyte count 0.3-0.8 [facility] Monocytes/100 WBC Auto (Bld) on 09-02-2024 Monocytes/100 WBC (Bld) Automated monocyte % 1.7-12.0 [facility] Neutrophils Auto (Bld) [#/Vo l]on 09-02-2024 Neutrophils (Bld) [#/Vol] Neutrophils [#/volume] in Blood by Automated count 1.4-6.5 [facility] Neutrophils/100 WBC Auto (Bl d)on 09-02-2024 Neutrophils/100 WBC (Bld) Automated neutrophil % 43.0-75.0 [facility] No Panel Informationon 09-02 Eosinophils # (Auto) 0.1 10 3/uL 0.0-0.7 [facility] Immature Granulocyte # (Auto) 0.02 10 3/uL 0.00-0.03 [facility] Platelet mean volume Auto (B ld) [Entitic vol]on 09-02-2024 Platelet mean volume (Bld) [Entitic vol] Platelet mean volume [Entitic volume] in Blood by Automated count Low 9.5-13.5 [facility] Platelets Auto (Bld) [#/Vol] on 09-02-2024 Platelets (Bld) [#/Vol] Platelets [#/volume] in Blood by Automated count 150-450 [facility] RBC Auto (Bld) [#/Vol]on RBC (Bld) [#/Vol] Erythrocytes [#/volu me] in Blood by Automated count 4.70-6.10 [facility] Serum or plasma albumin/glob ulin mass ratioon 09-02-2024 Albumin/Globulin [Mass ratio] Serum or plasma albumin/globulin mass ratio [facility] Serum or plasma anion gap de terminationon 09-02-2024 Anion gap [Moles/Vol] Serum or plasma an ion gap determination [facility] Serum or plasma total choles terol/high density lipoprotein (HDL) cholesterol mass meghana 09-02-2024 Cholesterol.total/Chol esterol in HDL [Mass ratio] Serum or plasma total cholesterol/high density lipoprotein (HDL) cholesterol mass rat [facility] Comment on above: 3.3 - 4.4 LOW RISK4. 4 - 7.1 AVERAGE RISK7.1 - 11.0 MODERATE RISK>11.0 HIGH RISK Perimetry studyon 07-05-2024 [facility] Radiology Study observation (narrative) [facility] Influenza virus B Ag [Presen ce] in Upper respiratory specimen by Rapid immunoassayon 03-19-2024 FLUBV Ag IA.rapid Ql (Nph) Negative [facility] No Panel Informationon 03-19 Influenza Type A (Rapid) Negative [facility] POC SARS CoV-2 Antigen Positive Fi [facility]aFormerly [facility] Basophils Auto (Bld) [#/Vol] on 03-15-2024 Basophils (Bld) [#/Vol] 0.0 10 3/uL 0.0-0.1 [facility] Basophils/100 WBC Auto (Bld) on 03-15-2024 Basophils/100 WBC (Bld) 0.6 % 0.2-2.0 [facility] Eosinophils/100 WBC Auto (Bl d)on 03-15-2024 Eosinophils/100 WBC (Bld) 0.9 % 0.9-7.0 [facility] Erythrocyte distribution wid th Auto (RBC) [Ratio]on 03-15-2024 Erythrocyte distribution width (RBC) [Ratio] 14.3 % 11.0-15.0 [facility] Hematocrit Auto (Bld) [Volum e fraction]on 03-15-2024 Hematocrit (Bld) [Volume fraction] 44.2 % 42.0-54.0 [facility] Hemoglobin [Mass/volume] in Bloodon 03-15-2024 Hemoglobin (Bld) [Mass/Vol] 14.7 g/dL 14.0-18.0 [facility] Laboratory - Chemistry and C hemistry - challengeon 03-15-2024 Bilirubin Ql (U) Negative NEGATIVE [facility] Glucose (U) [Mass/Vol] Negative NEGATIVE [facility] Ketones Ql (U) Negative NEGATIVE [facility] pH (U) 6.5 [pH] 5.0-9.0 [facility] Specific gravity (U) [Rel density] 1.020 1.005-1.02 5 [facility] Urobilinogen Qn (U) 0.2 {Maine'U}/dL 0.2-1.0 [facility] Laboratory - Hematology and Cell countson 03-15-2024 ESR (Bld) [Velocity] 11 mm/h <=20 [facility] Immature granulocytes/100 WBC (Bld) 0.5 % 0.0-0.5 [facility] Laboratory - Specimen inform ationon 03-15-2024 Appearance (U) CLEAR CLEAR [facility] Color (U) YELLOW YELLOW [facility] Laboratory - Urinalysison Leukocyte esterase Test strip Ql (U) Negative NEGATIVE [facility] Mucus Ql (Urine sed) TRACE Abnormal NONE SEEN [facility] Nitrite Ql (U) Negative NEGATIVE [facility] Protein Ql (U) Negative NEG/TRACE [facility] Leukocytes [#/volume] correc airam for nucleated erythrocytes in Blood by Automated counon 03-15-2024 WBC corrected for nucl RBC Auto (Bld) [#/Vol] 6.5 10 3/uL 4.0-11.0 [facility] Lymphocytes Auto (Bld) [#/Vo l]on 03-15-2024 Lymphocytes (Bld) [#/Vol] 1.3 10 3/uL 1.2-3.8 [facility] Lymphocytes/100 WBC Auto (Bl d)on 03-15-2024 Lymphocytes/100 WBC (Bld) 19.8 % Low 20.5-60.0 [facility] MCH Auto (RBC) [Entitic mass ]on 03-15-2024 MCH (RBC) [Entitic mass] 30.2 pg 25.9-34.0 [facility] MCHC Auto (RBC) [Mass/Vol]on 03-15-2024 MCHC (RBC) [Mass/Vol] 33.3 g/dL 29.9-35.2 [facility] MCV Auto (RBC) [Entitic vol] on 03-15-2024 MCV (RBC) [Entitic vol] 90.8 fL 80.0-94.0 [facility] Monocytes Auto (Bld) [#/Vol] on 03-15-2024 Monocytes (Bld) [#/Vol] 0.6 10 3/uL 0.3-0.8 [facility] Monocytes/100 WBC Auto (Bld) on 03-15-2024 Monocytes/100 WBC (Bld) 9.9 % 1.7-12.0 [facility] Neutrophils Auto (Bld) [#/Vo l]on 03-15-2024 Neutrophils (Bld) [#/Vol] 4.4 10 3/uL 1.4-6.5 [facility] Neutrophils/100 WBC Auto (Bl d)on 03-15-2024 Neutrophils/100 WBC (Bld) 68.3 % 43.0-75.0 [facility] No Panel Informationon 03-15 Urine Bacteria NONE SEEN #/HPF NONE SEEN [facility] Urine Occult Blood Negative NEGATIVE [facility] Urine Other Casts NONE SEEN #/LPF NONE SEEN [facility] Urine Other Crystals None Seen #/HPF None Seen [facility] Urine RBC 0-2 #/HPF 0-2 [facility] Urine Squamous Epithelial Cells NONE SEEN #/LPF NONE/RARE [facility] Urine WBC 0-2 #/HPF Abnormal NONE SEEN [facility] Eosinophils # (Auto) 0.1 10 3/uL 0.0-0.7 [facility] Immature Granulocyte # (Auto) 0.03 10 3/uL 0.00-0.03 [facility] Platelet mean volume Auto (B ld) [Entitic vol]on 03-15-2024 Platelet mean volume (Bld) [Entitic vol] 10.0 fL 9.5-13.5 [facility] Platelets Auto (Bld) [#/Vol] on 03-15-2024 Platelets (Bld) [#/Vol] 169 10 3/uL 150-450 [facility] RBC Auto (Bld) [#/Vol]on RBC (Bld) [#/Vol] 4.87 10 6/uL 4.70-6.10 [facility] No Panel Informationon 01-21 Prostate Specific Antigen Screen 1.33 ng/mL <=4.00 [facility] Estimated glomerular filtrat ion rate (GFR) non- Americanon 11-16-2023 GFR/1.73 sq M.predicted among non-blacks MDRD (S/P/Bld) [Vol rate/Area] mL/min/{1.73_m2} >=60 [facility] Laboratory - Chemistry and C hemistry - challengeon 11-16-2023 Calcium [Mass/Vol] 9.6 mg/dL 8.5-10.1 [facility] Chloride [Moles/Vol] 105 mmol/L 98-107 [facility] CO2 [Moles/Vol] 23.8 mmol/L 21.0-32.0 [facility] Creatinine [Mass/Vol] 1.02 mg/dL 0.70-1.30 [facility] GFR/1.73 sq M.predicted MDRD (S/P/Bld) [Vol rate/Area] mL/min/{1.73_m2} >=60 [facility] Glucose [Mass/Vol] 96 mg/dL 74-106 [facility] Potassium [Moles/Vol] 4.0 mmol/L 3.5-5.1 [facility] Sodium [Moles/Vol] 140 mmol/L 136-145 [facility] Urea nitrogen [Mass/Vol] 15.0 mg/dL 7.0-18.0 [facility] Urea nitrogen/Creatinine [Mass ratio] 14.7 mg/mg [facility] Serum or plasma anion gap de terminationon 11-16-2023 Anion gap [Moles/Vol] 15.2 mmol/L [facility] Operative Reporton Operative Report [id number]#1.00TIFF Normal [facility] RAD - MISCon 08-07-2023 RAD - MISC [id number]#1.00TIFF [facility] Consent for Procedure/Surger yon 07-29-2023 Consent for Procedure/Surgery [id number]#1.00TIFF Normal [facility] Facesheeton 07-29-2023 Facesheet [id number]#1.00TIFF [facility] Ambulatory Visit Summaryon 1 09-28-2022 Ambulatory Visit [...] for choosing us for your care. Myron [facility] Ambulatory Visit Summary YONATAN PATEL [...] for choosing us for your care. Normal [facility] Physician Referralon 023 Physician Referral [id number]#1.00TIFF Normal [facility] Basic Metabolic Panelon 11-0 Anion gap [Moles/Vol] 10.4 mmol/L Normal 6.0-15.0 [facility] Comment on above: Order Comment: FASTI NG Y Performed By: #### H S TROP, CMP, CK, CBC #### [facility] [address] [place] [id number] [place] Calcium [Mass/Vol] 9.4 mg/dL Normal 8.6-10.3 [facility] Comment on above: Order Comment: FASTI NG Y Performed By: #### H S TROP, CMP, CK, CBC #### [facility] [place] [facility] [address] [place] [address] [place] Chloride [Moles/Vol] 106 mmol/L Normal 98-107 [facility] Comment on above: Order Comment: FASTI NG Y Performed By: #### H S TROP, CMP, CK, CBC #### [facility] [place] [facility] [address] [place] [address] [place] CO2 [Moles/Vol] 28.8 mmol/L Normal 21.0-31.0 [facility] Comment on above: Order Comment: FASTI NG Y Performed By: #### H S TROP, CMP, CK, CBC #### [facility] [place] [facility] [address] Creatinine [Mass/Vol] 0.78 mg/dL Normal 0.70-1.30 [facility] Comment on above: Order Comment: FASTI NG Y Performed By: #### H S TROP, CMP, CK, CBC #### [facility] [place] [facility] [address] [place] [address] [place] Creatinine Clr Calc Pharmacy 81.46 [facility] Comment on above: Order Comment: FASTI NG Y Performed By: #### H S TROP, CMP, CK, CBC #### [place] [address] [place] GFR/1.73 sq M.predicted MDRD (S/P/Bld) [Vol rate/Area] mL/min/{1.73_m2} [facility] Comment on above: Order Comment: FASTI NG Y Performed By: #### H S TROP, CMP, CK, CBC #### [address] Glucose [Mass/Vol] 99 mg/dL Normal 70-100 [facility] Comment on above: Order Comment: FASTI NG Y Result Comment: [facility] Glucose Reference Range is dependent on time and content of last meal. Glucose of more than 200 mg/dL in a nonstressed, ambulatory subject supports the diagnosis of Diabetes Mellitus. ADA recommended reference range Performed By: #### H S TROP, CMP, CK, CBC #### [facility] [place] [facility] [address] [place] [address] [place] Potassium [Moles/Vol] 4.2 mmol/L Normal 3.5-5.1 [facility] Comment on above: Order Comment: FASTI NG Y Performed By: #### H S TROP, CMP, CK, CBC #### [facility] [place] [facility] [address] Sodium [Moles/Vol] 141 mmol/L Normal 136-145 [facility] Comment on above: Order Comment: FASTI NG Y Performed By: #### H S TROP, CMP, CK, CBC #### [address] Urea nitrogen [Mass/Vol] 16 mg/dL Normal 7-25 [facility] Comment on above: Order Comment: FASTI NG Y Performed By: #### H S TROP, CMP, CK, CBC #### [address] Complete Blood Count Auto Di ffon 06-22-2023 Basophils (Bld) [#/Vol] 0.0 10*3/uL Normal 0.0-0.2 [facility] Comment on above: Result Comment: PERF ORMED BY: [place] [address] PATHOLOGIST [employer] HARRY MARTI M.D. Performed By: #### L IPID, [id number], PT, CBC, HEPATIC, BMP, PTT, TSH3, MG #### [address] Basophils/100 WBC (Bld) 0.4 % Normal . [facility] Comment on above: Performed By: #### L IPID, [id number], PT, CBC, HEPATIC, BMP, PTT, TSH3, MG #### [address] Eosinophils (Bld) [#/Vol] 0.1 10*3/uL Normal 0.0-0.45 [facility] Comment on above: Performed By: #### L IPID, [id number], PT, CBC, HEPATIC, BMP, PTT, TSH3, MG #### [address] Eosinophils/100 WBC (Bld) 1.2 % Normal . [facility] Comment on above: Performed By: #### L IPID, [id number], PT, CBC, HEPATIC, BMP, PTT, TSH3, MG #### [address] Erythrocyte distribution width (RBC) [Ratio] 15.2 % High 12.0-14.8 [facility] Comment on above: Performed By: #### L IPID, [id number], PT, CBC, HEPATIC, BMP, PTT, TSH3, MG #### [address] Hematocrit (Bld) [Volume fraction] 40.0 % Normal 38.8-50.0 [facility] Comment on above: Performed By: #### L IPID, [id number], PT, CBC, HEPATIC, BMP, PTT, TSH3, MG #### [address] Hemoglobin (Bld) [Mass/Vol] 13.6 g/dL Normal 13.0-17.0 [facility] Comment on above: Performed By: #### L IPID, [id number], PT, CBC, HEPATIC, BMP, PTT, TSH3, MG #### [address] Lymphocytes (Bld) [#/Vol] 1.5 10*3/uL Normal 1.00-4.8 [facility] Comment on above: Performed By: #### L IPID, [id number], PT, CBC, HEPATIC, BMP, PTT, TSH3, MG #### [address] Lymphocytes/100 WBC (Bld) 35.5 % Normal . [facility] Comment on above: Performed By: #### L IPID, [id number], PT, CBC, HEPATIC, BMP, PTT, TSH3, MG #### [address] MCH (RBC) [Entitic mass] 29.4 pg Normal 27.5-35.2 [facility] Comment on above: Performed By: #### L IPID, [id number], PT, CBC, HEPATIC, BMP, PTT, TSH3, MG #### [address] MCV (RBC) [Entitic vol] 86.7 fL Normal 83.5-101 [facility] Comment on above: Performed By: #### L IPID, [id number], PT, CBC, HEPATIC, BMP, PTT, TSH3, MG #### [facility] [place] [facility] [address] [place] [address] Mean Corpuscular HGB Conc 33.9 g/dL Normal 32.5-35.6 [facility] Comment on above: Performed By: #### L IPID, [id number], PT, CBC, HEPATIC, BMP, PTT, TSH3, MG #### [address] Monocytes (Bld) [#/Vol] 0.4 10*3/uL Normal 0.0-0.8 [facility] Comment on above: Performed By: #### L IPID, [id number], PT, CBC, HEPATIC, BMP, PTT, TSH3, MG #### [address] Monocytes/100 WBC (Bld) 10.4 % Normal . [facility] Comment on above: Performed By: #### L IPID, [id number], PT, CBC, HEPATIC, BMP, PTT, TSH3, MG #### [address] Neutrophils (Bld) [#/Vol] 2.2 10*3/uL Normal 1.8-7.7 [facility] Comment on above: Performed By: #### L IPID, [id number], PT, CBC, HEPATIC, BMP, PTT, TSH3, MG #### [place] [address] [place] Neutrophils/100 WBC (Bld) 52.5 % Normal . [facility] Comment on above: Performed By: #### L IPID, [id number], PT, CBC, HEPATIC, BMP, PTT, TSH3, MG #### [address] NRBC% 0.1 /100{WBC} Normal 0-0.5 [facility] Comment on above: Performed By: #### L IPID, [id number], PT, CBC, HEPATIC, BMP, PTT, TSH3, MG #### [address] Platelet mean volume (Bld) [Entitic vol] 7.3 fL Normal 6.6-10.1 [facility] Comment on above: Performed By: #### L IPID, [id number], PT, CBC, HEPATIC, BMP, PTT, TSH3, MG #### [address] Platelets (Bld) [#/Vol] 153 10*3/uL Normal 150-450 [facility] Comment on above: Performed By: #### L IPID, [id number], PT, CBC, HEPATIC, BMP, PTT, TSH3, MG #### [address] RBC (Bld) [#/Vol] 4.61 10*6/uL Normal 3.90-5.60 [facility] Comment on above: Performed By: #### L IPID, [id number], PT, CBC, HEPATIC, BMP, PTT, TSH3, MG #### [address] WBC (Bld) [#/Vol] 4.1 10*3/uL Normal 4.1-10.5 [facility] Comment on above: Performed By: #### L IPID, [id number], PT, CBC, HEPATIC, BMP, PTT, TSH3, MG #### [address] Hepatic Panelon 06-22-2023 Albumin [Mass/Vol] 3.8 g/dL Normal 3.5-5.7 [facility] Comment on above: Order Comment: FASTI NG Y Performed By: #### H S TROP, CMP, CK, CBC #### [address] Albumin/Globulin [Mass ratio] 1.6 {ratio} Normal [facility] Comment on above: Order Comment: FASTI NG Y Performed By: #### H S TROP, CMP, CK, CBC #### [facility] [place] [facility] [address] ALP [Catalytic activity/Vol] 57 U/L Normal 34-104 [facility] Comment on above: Order Comment: FASTI NG Y Performed By: #### H S TROP, CMP, CK, CBC #### [facility] [address] ALT [Catalytic activity/Vol] 26 U/L Normal 7-52 [facility] Comment on above: Order Comment: FASTI NG Y Performed By: #### H S TROP, CMP, CK, CBC #### [address] AST [Catalytic activity/Vol] 27 U/L Normal 13-39 [facility] Comment on above: Order Comment: FASTI NG Y Performed By: #### H S TROP, CMP, CK, CBC #### [address] Bilirubin [Mass/Vol] 1.0 mg/dL Normal 0.3-1.0 [facility] Comment on above: Order Comment: FASTI NG Y Performed By: #### H S TROP, CMP, CK, CBC #### [address] Bilirubin,Indirect 0.8 mg/dL Normal [facility] Comment on above: Order Comment: FASTI NG Y Performed By: #### H S TROP, CMP, CK, CBC #### [facility] [place] [facility] [address] [place] [address] Bilirubin.indirect [Mass/Vol] 0.20 mg/dL High 0.03-0.18 [facility] Comment on above: Order Comment: FASTI NG Y Performed By: #### H S TROP, CMP, CK, CBC #### [facility] [place] [facility] [address] [place] [address] Globulin (S) [Mass/Vol] 2.4 g/dL Normal [facility] Comment on above: Order Comment: FASTI NG Y Performed By: #### H S TROP, CMP, CK, CBC #### [facility] [place] [facility] [address] Protein [Mass/Vol] 6.2 g/dL Low 6.4-8.9 [facility] Comment on above: Order Comment: FASTI NG Y Performed By: #### H S TROP, CMP, CK, CBC #### [facility] [place] [facility] [address] Lipid Panelon 06-22-2023 Cholesterol [Mass/Vol] 108 mg/dL Low 140-200 [facility] Comment on above: Order Comment: FASTI NG Y Result Comment: Chol less than 200 mg/dl low risk Chol 201-239 mg/dl borderline risk Chol 240 mg/dl and greater high risk Performed By: #### H S TROP, CMP, CK, CBC #### [address] Cholesterol in HDL [Mass/Vol] 30 mg/dL Normal 23-92 [facility] Comment on above: Order Comment: FASTI NG Y Result Comment: HDL CHOL ATP-III CLASSIFICATION Cardiovascular Risk HDL > or equal to 60 mg/dL LOW HDL < 40 mg/dL HIGH Performed By: #### H S TROP, CMP, CK, CBC #### [facility] [place] [facility] [address] [place] [address] Cholesterol.total/Chol esterol in HDL [Mass ratio] 3.6 {ratio} Normal <5.0 [facility] Comment on above: Order Comment: FASTI NG Y Performed By: #### H S TROP, CMP, CK, CBC #### [address] LDL Cholesterol,Calculated 54 mg/dL Normal 0-100 [facility] Comment on above: Order Comment: FASTI NG Y Result Comment: LDL ATP III CLASSIFICATION LDL less than 100 mg/dL Optimal LDL 100-129 mg/dL Near or above optimal LDL 130-159 mg/dL Borderline high LDL 160-189 mg/dL High LDL greater than 189 mg/dL Very high Performed By: #### H S TROP, CMP, CK, CBC #### [facility] [place] [facility] [address] [place] [address] [place] Triglyceride w/Reflex 120 mg/dL Normal 0-149 [facility] Comment on above: Order Comment: [...] #### [facility] [place] [facility] [address] [place] [address] VLDL CHOLESTEROL 24 mg/dL Normal [facility] Comment on above: Order Comment: FASTI NG Y Performed By: #### H S TROP, CMP, CK, CBC #### [facility] [place] [facility] [address] [place] [address] MR angio head wo conon 06-22 MR angio head wo con [facility] [place] [address] [place] [address] MRI Report Signed Patient: Yonatan Patel MR#: [id number] 6 : 1945 Acct:[id number] Age/Sex: 78 / M ADM Date: 06/20/23 Loc: Room: [address] [place] [address] Type: ADM IN Attending Dr: Maren Petersen MD Copies to: MD Berhane Rocha MD Ordering Provider: Berhane Trammell MD Date of Service: 06/22/23 MR/MR angio head wo con: stroke MRI/MRA BRAIN WITHOUT CONTRAST COMPARISON: CT 06/20/2023 CLINICAL DATA: Confusion Sagittal T2, axial FLAIR and diffusion-weighted imaging was performed. 3-D [id number] imaging of the [place] [facility] [place] was also performed. There is [...] Selena Reid M.D.06/22/2023 4:25 PM Dictation Location: [place] [address] Transcribed By: [facility] 06/22/23 1625 Dictated By: Selena Reid MD 06/22/23 1617 Signed By: 06/22/23 1625 Normal [facility] Magnesiumon 06-22-2023 Magnesium [Mass/Vol] 2.1 mg/dL Normal 1.9-2.7 [facility] Comment on above: Order Comment: SHABANA Child Performed By: #### H S TROP, CMP, CK, CBC #### [facility] [place] [facility] [address] [place], [place] [id number] [facility] Partial Thromboplastin Timeo n 06-22-2023 aPTT Coag (Bld) [Time] 27.4 s Normal 25.1-36.5 [facility] Comment on above: Result Comment: A he matocrit value greater than 55% may lead to inaccurate results in coagulation testing. Patients having hematocrit values >55% require a special collection tube for coagulation studies. Please contact the laboratory at [phone] for redraw instructions. PERFORMED BY: [address] [place] [id number] PATHOLOGIST [employer] HARRY MARTI M.D. Performed By: #### H S TROP, CMP, CK, CBC #### [facility] [place] [facility] [address] [place], [place] [id number] [place] Prothrombin Time INRon 06-22 INR Coag (PPP) [Relative time] 1.0 {INR} Normal [facility] Comment on above: Result Comment: INR Therapeutic [...] - 4.5 Performed By: #### L IPID, [id number], PT, CBC, HEPATIC, BMP, PTT, TSH3, MG #### [address] PT Coag (PPP) [Time] 11.6 s Normal 9.0-12.9 [facility] Comment on above: Result Comment: A he matocrit value greater than 55% may lead to inaccurate results in coagulation testing. Patients having hematocrit values >55% require a special collection tube for coagulation studies. Please contact the laboratory at [phone] for redraw instructions. Performed By: #### L IPID, [id number], PT, CBC, HEPATIC, BMP, PTT, TSH3, MG #### [address] Thyroid Stimulating Hormoneo n 06-22-2023 TSH Qn 2.38 m[IU]/L Normal 0.45-5.33 [facility] Comment on above: Order Comment: FASTI NG Y Result Comment: PERF ORMED BY: [place] [address] PATHOLOGIST [employer] HARRY MARTI M.D. Performed By: #### H S TROP, CMP, CK, CBC #### [address] Vit. B12/Folate Profileon Cobalamin (Vitamin B12) [Mass/Vol] 425 pg/mL Normal 180-914 [facility] Comment on above: Order Comment: FASTI NG Y Performed By: #### H S TROP, CMP, CK, CBC #### [address] Folate 29.0 ng/mL Normal >5.9 [facility] Comment on above: Order Comment: FASTI NG Y Result Comment: Aye te reference range: >5.9 ng/ml The WHO technical consultation on folate and vitamin b12 deficiencies has determined that folate concentrations less than 4 ng/ml are considered deficient. Performed By: #### H S TROP, CMP, CK, CBC #### [address] Vitamin B1 (Thiamine) Bloodo n 06-22-2023 Vitamin B1 (Thiamine) Blood 143.9 Normal 66.5-200.0 [facility] Comment on above: Result Comment: This test was developed and its performance characteristics determined by [facility]. It has not been cleared or approved by the Food and Drug Administration. Performed at: [facility] [address] [id number] [employer]oles[employer] Account Manager: Juan Howard MD, Phone: [phone] PERFORMED BY: [place] [address] PATHOLOGIST FORM MAKER HARRY MARTI M.D. Performed By: #### V ITB1 #### [facility] , Ammoniaon 06-21-2023 Ammonia (P) [Moles/Vol] 19 umol/L Normal 11-35 [facility] Comment on above: Result Comment: PERF ORMED BY: [place] [address] PATHOLOGIST FORM MAKER HARRY MARTI M.D. Performed By: #### H S TROP, CMP, CK, CBC #### [address] Basic Metabolic Panelon 11-0 Anion gap [Moles/Vol] 11.3 mmol/L Normal 6.0-15.0 [facility] Comment on above: Performed By: #### H S TROP, CMP, CK, CBC #### [address] Calcium [Mass/Vol] 9.4 mg/dL Normal 8.6-10.3 [facility] Comment on above: Performed By: #### H S TROP, CMP, CK, CBC #### [place] [address] [place] Chloride [Moles/Vol] 107 mmol/L Normal 98-107 [facility] Comment on above: Performed By: #### H S TROP, CMP, CK, CBC #### [address] CO2 [Moles/Vol] 25.7 mmol/L Normal 21.0-31.0 [facility] Comment on above: Performed By: #### H S TROP, CMP, CK, CBC #### [facility] [address] Creatinine [Mass/Vol] 0.83 mg/dL Normal 0.70-1.30 [facility] Comment on above: Performed By: #### H S TROP, CMP, CK, CBC #### [address] Creatinine Clr Calc Pharmacy 80.52 [facility] Comment on above: Result Comment: PERF ORMED BY: [place] [address] PATHOLOGIST FORM MAKER HARRY MARTI M.D. Performed By: #### H S TROP, CMP, CK, CBC #### [address] GFR/1.73 sq M.predicted MDRD (S/P/Bld) [Vol rate/Area] mL/min/{1.73_m2} [facility] Comment on above: Performed By: #### H S TROP, CMP, CK, CBC #### [address] Glucose [Mass/Vol] 174 mg/dL High 70-100 [facility] Comment on above: Result Comment: [place] Glucose Reference Range is dependent on time and content of last meal. Glucose of more than 200 mg/dL in a nonstressed, ambulatory subject supports the diagnosis of Diabetes Mellitus. ADA recommended reference range Performed By: #### H S TROP, CMP, CK, CBC #### [address] Potassium [Moles/Vol] 4.0 mmol/L Normal 3.5-5.1 [facility] Comment on above: Performed By: #### H S TROP, CMP, CK, CBC #### [address] Sodium [Moles/Vol] 140 mmol/L Normal 136-145 [facility] Comment on above: Performed By: #### H S TROP, CMP, CK, CBC #### [address] Urea nitrogen [Mass/Vol] 11 mg/dL Normal 7-25 [facility] Comment on above: Performed By: #### H S TROP, CMP, CK, CBC #### [address] Hemogram CBC Without Diffon 06-21-2023 Erythrocyte distribution width (RBC) [Ratio] 14.7 % Normal 12.0-14.8 [facility] Comment on above: Performed By: #### H S TROP, CMP, CK, CBC #### [address] Hematocrit (Bld) [Volume fraction] 40.7 % Normal 38.8-50.0 [facility] Comment on above: Performed By: #### H S TROP, CMP, CK, CBC #### [address] Hemoglobin (Bld) [Mass/Vol] 13.9 g/dL Normal 13.0-17.0 [facility] Comment on above: Performed By: #### H S TROP, CMP, CK, CBC #### [address] MCH (RBC) [Entitic mass] 29.7 pg Normal 27.5-35.2 [facility] Comment on above: Performed By: #### H S TROP, CMP, CK, CBC #### [address] MCV (RBC) [Entitic vol] 86.8 fL Normal 83.5-101 [facility] Comment on above: Performed By: #### H S TROP, CMP, CK, CBC #### [facility] [address] Mean Corpuscular HGB Conc 34.2 g/dL Normal 32.5-35.6 [facility] Comment on above: Performed By: #### H S TROP, CMP, CK, CBC #### [address] Platelet mean volume (Bld) [Entitic vol] 7.3 fL Normal 6.6-10.1 [facility] Comment on above: Result Comment: PERF ORMED BY: [place] [address] PATHOLOGIST FORM MAKER HARRY MARTI M.D. Performed By: #### H S TROP, CMP, CK, CBC #### [address] Platelets (Bld) [#/Vol] 144 10*3/uL Low 150-450 [facility] Comment on above: Performed By: #### H S TROP, CMP, CK, CBC #### [address] RBC (Bld) [#/Vol] 4.69 10*6/uL Normal 3.90-5.60 [facility] Comment on above: Performed By: #### H S TROP, CMP, CK, CBC #### [address] WBC (Bld) [#/Vol] 3.9 10*3/uL Low 4.1-10.5 [facility] Comment on above: Performed By: #### H S TROP, CMP, CK, CBC #### [facility] [address] [place] [address] COVID CepheidOrdered By: Huy Palacios on 06-20-2023 SARS-CoV-2 (COVID-19) Ab IA Ql Positive Negative [facility] Comment on above: This is a duplicate Cepheid Xpert Xpress CoV-2/Flu/RSV Plus RNA by RT-PCR result to be used for statistical tracking purpose only. SARS-CoV-2 (COVID-19) RNA MARIANNE+probe Ql (Unsp spec) [facility] COVID-19 / Flu A/B / RSV PCR [...] or Cepheid Disclaimer revoked sooner. PERFORMED BY: [place] [address] PATHOLOGIST FORM MAKER HARRY MARTI M.D. [facility] Comment on above: Performed By: #### H S TROP, CMP, CK, CBC #### [address] head/brain wo conon 06-20 CT head/brain wo con [facility] Main [place] [address] [place] [address] CT Scan Report Signed Patient: Yonatan Patel MR#: [id number] 6 : 1945 Acct:[id number] Age/Sex: 78 / M ADM Date: 06/20/23 Loc: Room: [address] [place] [address] Type: ADM INOo Attending Dr: Jassi Arias [...] Daisha Fernandez M.D.06/20/2023 8:34 AM Dictation Location: [place] [address] Transcribed By: MICHEL 06/20/23833 Dictated By: Daisha Fernandez II, MD 06/20/23829 Signed By: 06/20/23833 Normal [facility] Cepheid COVID PCR Positiveon 06-20-2023 SARS-CoV-2 (COVID-19) RNA MARIANNE+probe Ql (Unsp spec) Positive Critically abnormal Negative [facility] Comment on above: Result Comment: This is a duplicate Cepheid Xpert Xpress CoV-2/Flu/RSV Plus RNA by RT-PCR result to be used for statistical tracking purpose only. PERFORMED BY: [place] [address] PATHOLOGIST FORM MAKER HARRY MARTI M.D. Performed By: #### H S TROP, CMP, CK, CBC #### [address] Complete Blood Count Auto Di ffon 06-20-2023 Basophils (Bld) [#/Vol] 0.0 10*3/uL Normal 0.0-0.2 [facility] Comment on above: Result Comment: PERF ORMED BY: [place] [address] PATHOLOGIST FORM MAKER HARRY MARTI M.D. Performed By: #### H S TROP, CMP, CK, CBC #### [address] Basophils/100 WBC (Bld) 0.4 % Normal . [facility] Comment on above: Performed By: #### H S TROP, CMP, CK, CBC #### [address] Eosinophils (Bld) [#/Vol] 0.0 10*3/uL Normal 0.0-0.45 [facility] Comment on above: Performed By: #### H S TROP, CMP, CK, CBC #### [facility] [address] Eosinophils/100 WBC (Bld) 0.6 % Normal . [facility] Comment on above: Performed By: #### H S TROP, CMP, CK, CBC #### [facility] [address] Erythrocyte distribution width (RBC) [Ratio] 14.9 % High 12.0-14.8 [facility] Comment on above: Performed By: #### H S TROP, CMP, CK, CBC #### [address] Hematocrit (Bld) [Volume fraction] 43.3 % Normal 38.8-50.0 [facility] Comment on above: Performed By: #### H S TROP, CMP, CK, CBC #### [address] Hemoglobin (Bld) [Mass/Vol] 14.8 g/dL Normal 13.0-17.0 [facility] Comment on above: Performed By: #### H S TROP, CMP, CK, CBC #### [address] Lymphocytes (Bld) [#/Vol] 1.0 10*3/uL Normal 1.00-4.8 [facility] Comment on above: Performed By: #### H S TROP, CMP, CK, CBC #### [address] Lymphocytes/100 WBC (Bld) 20.8 % Normal . [facility] Comment on above: Performed By: #### H S TROP, CMP, CK, CBC #### [address] MCH (RBC) [Entitic mass] 30.0 pg Normal 27.5-35.2 [facility] Comment on above: Performed By: #### H S TROP, CMP, CK, CBC #### [address] MCV (RBC) [Entitic vol] 87.6 fL Normal 83.5-101 [facility] Comment on above: Performed By: #### H S TROP, CMP, CK, CBC #### [address] Mean Corpuscular HGB Conc 34.2 g/dL Normal 32.5-35.6 [facility] Comment on above: Performed By: #### H S TROP, CMP, CK, CBC #### [place] [address] [place] Monocytes (Bld) [#/Vol] 0.8 10*3/uL Normal 0.0-0.8 [facility] Comment on above: Performed By: #### H S TROP, CMP, CK, CBC #### [address] Monocytes/100 WBC (Bld) 24.01 % High 0.00-20.00 [facility] Comment on above: Result Comment: For adults in ED, MDW > 20.0 may be associated with a higher risk of sepsis during the first 12 hrs of hospital admission Performed By: #### H S TROP, CMP, CK, CBC #### [address] Monocytes/100 WBC (Bld) 15.6 % Normal . [facility] Comment on above: Performed By: #### H S TROP, CMP, CK, CBC #### [place] [address] [place] Neutrophils (Bld) [#/Vol] 3.0 10*3/uL Normal 1.8-7.7 [facility] Comment on above: Performed By: #### H S TROP, CMP, CK, CBC #### [place] [address] [place] Neutrophils/100 WBC (Bld) 62.6 % Normal . [facility] Comment on above: Performed By: #### H S TROP, CMP, CK, CBC #### [place] [address] [place] NRBC% 0.4 /100{WBC} Normal 0-0.5 [facility] Comment on above: Performed By: #### H S TROP, CMP, CK, CBC #### [address] Platelet mean volume (Bld) [Entitic vol] 7.9 fL Normal 6.6-10.1 [facility] Comment on above: Performed By: #### H S TROP, CMP, CK, CBC #### [address] Platelets (Bld) [#/Vol] 154 10*3/uL Normal 150-450 [facility] Comment on above: Performed By: #### H S TROP, CMP, CK, CBC #### [address] RBC (Bld) [#/Vol] 4.94 10*6/uL Normal 3.90-5.60 [facility] Comment on above: Performed By: #### H S TROP, CMP, CK, CBC #### [address] WBC (Bld) [#/Vol] 4.8 10*3/uL Normal 4.1-10.5 [facility] Comment on above: Performed By: #### H S TROP, CMP, CK, CBC #### [address] Comprehensive Metabolic Pane alex 06-20-2023 Albumin [Mass/Vol] 4.2 g/dL Normal 3.5-5.7 [facility] Comment on above: Performed By: #### H S TROP, CMP, CK, CBC #### [address] Albumin/Globulin [Mass ratio] 1.6 {ratio} Normal [facility] Comment on above: Performed By: #### H S TROP, CMP, CK, CBC #### [address] ALP [Catalytic activity/Vol] 53 U/L Normal 34-104 [facility] Comment on above: Performed By: #### H S TROP, CMP, CK, CBC #### [facility] [address] ALT [Catalytic activity/Vol] 31 U/L Normal 7-52 [facility] Comment on above: Performed By: #### H S TROP, CMP, CK, CBC #### [facility] [address] Anion gap [Moles/Vol] 9.2 mmol/L Normal 6.0-15.0 [facility] Comment on above: Performed By: #### H S TROP, CMP, CK, CBC #### [facility] [address] AST [Catalytic activity/Vol] 33 U/L Normal 13-39 [facility] Comment on above: Performed By: #### H S TROP, CMP, CK, CBC #### [facility] [address] Bilirubin [Mass/Vol] 1.0 mg/dL Normal 0.3-1.0 [facility] Comment on above: Performed By: #### H S TROP, CMP, CK, CBC #### [facility] [address] Calcium [Mass/Vol] 9.8 mg/dL Normal 8.6-10.3 [facility] Comment on above: Performed By: #### H S TROP, CMP, CK, CBC #### [facility] [address] [place] [address] [place] Chloride [Moles/Vol] 107 mmol/L Normal 98-107 [facility] Comment on above: Performed By: #### H S TROP, CMP, CK, CBC #### [facility] [address] [place] [address] [place] CO2 [Moles/Vol] 25.6 mmol/L Normal 21.0-31.0 [facility] Comment on above: Performed By: #### H S TROP, CMP, CK, CBC #### [facility] [address] Creatinine [Mass/Vol] 0.95 mg/dL Normal 0.70-1.30 [facility] Comment on above: Performed By: #### H S TROP, CMP, CK, CBC #### [facility] [address] [place] [address] [place] Creatinine Clr Calc Pharmacy 70.44 [facility] Comment on above: Result Comment: PERF ORMED BY: [place] [address] PATHOLOGIST FORM MAKER HARRY MARTI M.D. Performed By: #### H S TROP, CMP, CK, CBC #### [facility] [address] GFR/1.73 sq M.predicted MDRD (S/P/Bld) [Vol rate/Area] mL/min/{1.73_m2} [facility] Comment on above: Performed By: #### H S TROP, CMP, CK, CBC #### [facility] [address] [place] [address] [place] Globulin (S) [Mass/Vol] 2.7 g/dL [facility] Comment on above: Performed By: #### H S TROP, CMP, CK, CBC #### [facility] [address] Glucose [Mass/Vol] 94 mg/dL Normal 70-100 [facility] Comment on above: Result Comment: [place] Glucose Reference Range is dependent on time and content of last meal. Glucose of more than 200 mg/dL in a nonstressed, ambulatory subject supports the diagnosis of Diabetes Mellitus. ADA recommended reference range Performed By: #### H S TROP, CMP, CK, CBC #### [facility] [address] Potassium [Moles/Vol] 3.8 mmol/L Normal 3.5-5.1 [facility] Comment on above: Performed By: #### H S TROP, CMP, CK, CBC #### [facility] [address] Protein [Mass/Vol] 6.9 g/dL Normal 6.4-8.9 [facility] Comment on above: Performed By: #### H S TROP, CMP, CK, CBC #### [facility] [address] [place] [address] Sodium [Moles/Vol] 138 mmol/L Normal 136-145 [facility] Comment on above: Performed By: #### H S TROP, CMP, CK, CBC #### [address] Urea nitrogen [Mass/Vol] 18 mg/dL Normal 7-25 [facility] Comment on above: Performed By: #### H S TROP, CMP, CK, CBC #### [address] Creatine Kinaseon 06-20-2023 CK [Catalytic activity/Vol] 113 U/L Normal 30-223 [facility] Comment on above: Performed By: #### H S TROP, CMP, CK, CBC #### [address] Troponin I High Sensitivityo n 06-20-2023 Troponin I High Sensitivity 7.8 pg/mL Normal 0.0-20.0 [facility] Comment on above: Result Comment: PERF ORMED BY: [place] [address] PATHOLOGIST FORM MAKER HARRY MARTI M.D. Performed By: #### H S TROP, CMP, CK, CBC #### [address] Urinalysison 06-20-2023 Appearance (U) Clear Normal Clear [facility] Comment on above: Order Comment: Name Collection Type:: Clean-Voided Midstream Performed By: #### H S TROP, CMP, CK, CBC #### [address] Bilirubin,Urine Negative Normal Negative [facility] Comment on above: Order Comment: Name Collection Type:: Clean-Voided Midstream Performed By: #### H S TROP, CMP, CK, CBC #### [address] Color (U) Yellow Normal Yellow [facility] Comment on above: Order Comment: Name Collection Type:: Clean-Voided Midstream Performed By: #### H S TROP, CMP, CK, CBC #### [facility] [address] [place] [address] Glucose Ql (U) Normal Normal Normal [facility] Comment on above: Order Comment: Name Collection Type:: Clean-Voided Midstream Performed By: #### H S TROP, CMP, CK, CBC #### [address] Ketones Ql (U) Negative Normal Negative [facility] Comment on above: Order Comment: Name Collection Type:: Clean-Voided Midstream Performed By: #### H S TROP, CMP, CK, CBC #### [address] Leukocyte esterase Test strip Ql (U) Negative Normal Negative [facility] Comment on above: Order Comment: Name Collection Type:: Clean-Voided Midstream Performed By: #### H S TROP, CMP, CK, CBC #### [address] Nitrite,Urine Negative Normal Negative [facility] Comment on above: Order Comment: Name Collection Type:: Clean-Voided Midstream Performed By: #### H S TROP, CMP, CK, CBC #### [address] Occult Blood,Urine Negative Normal Negative [facility] Comment on above: Order Comment: Name Collection Type:: Clean-Voided Midstream Result Comment: PERF ORMED BY: [place] [address] PATHOLOGIST FORM MAKER HARRY MARTI M.D. Performed By: #### H S TROP, CMP, CK, CBC #### [address] pH (U) 5.5 [pH] Normal 5.0-9.0 [facility] Comment on above: Order Comment: Name Collection Type:: Clean-Voided Midstream Performed By: #### H S TROP, CMP, CK, CBC #### [facility] [address] [place] [address] [place] Protein,Urine Negative Normal Negative [facility] Comment on above: Order Comment: Name Collection Type:: Clean-Voided Midstream Performed By: #### H S TROP, CMP, CK, CBC #### [facility] [address] Specificy [place],Urine 1.005 Normal 1.001-1.03 0 [facility] Comment on above: Order Comment: Name Collection Type:: Clean-Voided Midstream Performed By: #### H S TROP, CMP, CK, CBC #### [facility] [address] Urobilinogen,Urine Normal Normal Normal [facility] Comment on above: Order Comment: Name Collection Type:: Clean-Voided Midstream Performed By: #### H S TROP, CMP, CK, CBC #### [address] XR chest 2V*on 06-20-2023 XR chest 2V* [facility] [place] [address] XRay Report Signed Patient: Yonatan Patel MR#: [id number] 6 : 1945 Acct:[id number] Age/Sex: 78 / M ADM Date: 06/20/23 Loc: Room: [address] [place] [address] Type: ADM INOo Attending Dr: Jassi Arias [...] Daisha Fernandez M.D.06/20/2023 11:21 AM Dictation Location: [place] [address] Transcribed By: MICHEL 06/20/23 112 Dictated By: Daisha Fernandez II, MD 06/20/23 112 Signed By: 06/20/23 112 Normal [facility] Alanine aminotransferase [En zymatic activity/volume] in Serum or PlasmaOrdered By: PROVIDER TEMP on 06-19-2023 ALT [Catalytic activity/Vol] 31 U/L 7-52 [facility] Albumin [Mass/volume] in Ser um or Plasma by Bromocresol green (BCG) dye binding methoOrdered By: PROVIDER TEMP on 06-19-2023 Albumin BCG dye [Mass/Vol] 4.2 g/dL 3.5-5.7 [facility] Alkaline phosphatase [Enzyma tic activity/volume] in Serum or PlasmaOrdered By: PROVIDER TEMP on 06-19-2023 ALP [Catalytic activity/Vol] 53 U/L 34-104 [facility] Aspartate aminotransferase [ Enzymatic activity/volume] in Serum or PlasmaOrdered By: PROVIDER TEMP on 06-19-2023 AST [Catalytic activity/Vol] 33 U/L 13-39 [facility] Basophils Auto (Bld) [#/Vol] Ordered By: PROVIDER TEMP on 06-19-2023 Basophils (Bld) [#/Vol] 0.0 10*3/uL 0.0-0.2 [facility] Basophils/100 WBC Auto (Bld) Ordered By: PROVIDER TEMP on 06-19-2023 Basophils/100 WBC (Bld) 0.4 % . [facility] Bilirubin Auto test strip Ql (U)Ordered By: PROVIDER TEMP on 06-19-2023 Bilirubin Ql (U) Negative Negative [facility] Bilirubin.total [Mass/volume ] in Serum or PlasmaOrdered By: PROVIDER TEMP on 06-19-2023 Bilirubin [Mass/Vol] 1.0 mg/dL 0.3-1.0 [facility] Calcium [Mass/volume] in Ser um or PlasmaOrdered By: PROVIDER TEMP on 06-19-2023 Calcium [Mass/Vol] 9.8 mg/dL 8.6-10.3 [facility] Carbon dioxide, total [Moles /volume] in Serum or PlasmaOrdered By: PROVIDER TEMP on 06-19-2023 CO2 [Moles/Vol] 25.6 mmol/L 21.0-31.0 [facility] Chloride [Moles/volume] in S raymundo or PlasmaOrdered By: PROVIDER TEMP on 06-19-2023 Chloride [Moles/Vol] 107 mmol/L 98-107 [facility] Creatine kinase [Enzymatic a ctivity/volume] in Serum or PlasmaOrdered By: PROVIDER TEMP on 06-19-2023 CK [Catalytic activity/Vol] 113 U/L 30-223 [facility] Creatinine [Mass/volume] in Serum or PlasmaOrdered By: PROVIDER TEMP on 06-19-2023 Creatinine [Mass/Vol] 0.95 mg/dL 0.70-1.30 [facility] Eosinophils Auto (Bld) [#/Vo l]Ordered By: PROVIDER TEMP on 06-19-2023 Eosinophils (Bld) [#/Vol] 0.0 10*3/uL 0.0-0.45 [facility] Eosinophils/100 WBC Auto (Bl d)Ordered By: PROVIDER TEMP on 06-19-2023 Eosinophils/100 WBC (Bld) 0.6 % . [facility] Erythrocyte distribution wid th Auto (RBC) [Ratio]Ordered By: PROVIDER TEMP on 06-19-2023 Erythrocyte distribution width (RBC) [Ratio] 14.9 % 12.0-14.8 [facility] Globulin Calc (S) [Mass/Vol] Ordered By: PROVIDER TEMP on 06-19-2023 Globulin (S) [Mass/Vol] 2.7 g/dL [facility] Glucose [Mass/volume] in Ser um or PlasmaOrdered By: PROVIDER TEMP on 06-19-2023 Glucose [Mass/Vol] 94 mg/dL 70-100 [facility] Comment on above: ADA recommended refe rence rangeRandom Glucose Reference Range is dependent on time and content of last meal. Glucose of more than 200 mg/dL in a nonstressed, ambulatory subject supports the diagnosis of Diabetes Mellitus. Hematocrit Auto (Bld) [Volum e fraction]Ordered By: PROVIDER TEMP on 06-19-2023 Hematocrit (Bld) [Volume fraction] 43.3 % 38.8-50.0 [facility] Hemoglobin [Mass/volume] in BloodOrdered By: PROVIDER TEMP on 06-19-2023 Hemoglobin (Bld) [Mass/Vol] 14.8 g/dL 13.0-17.0 [facility] Ketones Auto test strip (U) [Mass/Vol]Ordered By: PROVIDER TEMP on 06-19-2023 Ketones (U) [Mass/Vol] Negative Negative [facility] Leukocytes [#/volume] correc airam for nucleated erythrocytes in Blood by Automated counOrdered By: PROVIDER TEMP on 06-19-2023 WBC corrected for nucl RBC Auto (Bld) [#/Vol] 4.8 10*3/uL 4.1-10.5 [facility] Lymphocytes Auto (Bld) [#/Vo l]Ordered By: PROVIDER TEMP on 06-19-2023 Lymphocytes (Bld) [#/Vol] 1.0 10*3/uL 1.00-4.8 [facility] Lymphocytes/100 WBC Auto (Bl d)Ordered By: PROVIDER TEMP on 06-19-2023 Lymphocytes/100 WBC (Bld) 20.8 % . [facility] MCH Auto (RBC) [Entitic mass ]Ordered By: PROVIDER TEMP on 06-19-2023 MCH (RBC) [Entitic mass] 30.0 pg 27.5-35.2 [facility] MCHC Auto (RBC) [Mass/Vol]Or dered By: PROVIDER TEMP on 06-19-2023 MCHC (RBC) [Mass/Vol] 34.2 g/dL 32.5-35.6 [facility] MCV Auto (RBC) [Entitic vol] Ordered By: PROVIDER TEMP on 06-19-2023 MCV (RBC) [Entitic vol] 87.6 fL 83.5-101 [facility] Monocyte distribution width [Entitic volume] in Blood by AutomatedOrdered By: PROVIDER TEMP on 06-19-2023 Monocyte distribution width Auto (Bld) [Entitic vol] 24.01 % 0.00-20.00 [facility] Comment on above: For adults in ED, MD W > 20.0 may be associated with a higher risk of sepsis during the first 12 hrs of hospital admission Monocytes Auto (Bld) [#/Vol] Ordered By: PROVIDER TEMP on 06-19-2023 Monocytes (Bld) [#/Vol] 0.8 10*3/uL 0.0-0.8 [facility] Monocytes/100 WBC Auto (Bld) Ordered By: PROVIDER TEMP on 06-19-2023 Monocytes/100 WBC (Bld) 15.6 % . [facility] Neutrophils Auto (Bld) [#/Vo l]Ordered By: PROVIDER TEMP on 06-19-2023 Neutrophils (Bld) [#/Vol] 3.0 10*3/uL 1.8-7.7 [facility] Neutrophils/100 WBC Auto (Bl d)Ordered By: PROVIDER TEMP on 06-19-2023 Neutrophils/100 WBC (Bld) 62.6 % . [facility] No Panel InformationOrdered By: PROVIDER TEMP on 06-19-2023 Estimated GFR (CKD-EPI) > 60.0 mL/Min [facility] Creatinine Clearance (Chem 70.44 [facility] Nucleated erythrocytes [Pres ence] in Blood by Automated countOrdered By: PROVIDER TEMP on 06-19-2023 Nucleated RBC Auto Ql (Bld) 0.4 /100{WBC} 0-0.5 [facility] Platelet mean volume Auto (B ld) [Entitic vol]Ordered By: PROVIDER TEMP on 06-19-2023 Platelet mean volume (Bld) [Entitic vol] 7.9 fL 6.6-10.1 [facility] Platelets Auto (Bld) [#/Vol] Ordered By: PROVIDER TEMP on 06-19-2023 Platelets (Bld) [#/Vol] 154 10*3/uL 150-450 [facility] Potassium [Moles/volume] in Serum or PlasmaOrdered By: PROVIDER TEMP on 06-19-2023 Potassium [Moles/Vol] 3.8 mmol/L 3.5-5.1 [facility] Protein Auto test strip (U) [Mass/Vol]Ordered By: PROVIDER TEMP on 06-19-2023 Protein (U) [Mass/Vol] Negative Negative [facility] Protein [Mass/volume] in Ser um or PlasmaOrdered By: PROVIDER TEMP on 06-19-2023 Protein [Mass/Vol] 6.9 g/dL 6.4-8.9 [facility] RBC Auto (Bld) [#/Vol]Ordere d By: PROVIDER TEMP on 06-19-2023 RBC (Bld) [#/Vol] 4.94 10*6/uL 3.90-5.60 [facility] Serum or plasma albumin/glob ulin mass ratioOrdered By: PROVIDER TEMP on 06-19-2023 Albumin/Globulin [Mass ratio] 1.6 {ratio} [facility] Serum or plasma anion gap de terminationOrdered By: PROVIDER TEMP on 06-19-2023 Anion gap [Moles/Vol] 9.2 mmol/L 6.0-15.0 [facility] Sodium [Moles/volume] in Ser um or PlasmaOrdered By: PROVIDER TEMP on 06-19-2023 Sodium [Moles/Vol] 138 mmol/L 136-145 [facility] Troponin I.cardiac [Mass/vol ume] in Serum or Plasma by Detection limit <= 0.01 ng/Ordered By: PROVIDER TEMP on 06-19-2023 Troponin I.cardiac DL <= 0.01 ng/mL [Mass/Vol] 7.8 pg/mL 0.0-20.0 [facility] Urea nitrogen [Mass/volume] in Serum or PlasmaOrdered By: PROVIDER TEMP on 06-19-2023 Urea nitrogen [Mass/Vol] 18 mg/dL 7-25 [facility] Urine appearanceOrdered By: PROVIDER TEMP on 06-19-2023 Appearance (U) Clear Clear [facility] Urine colorOrdered By: SOLE JEANETTE TEMP on 06-19-2023 Color (U) Yellow Yellow [facility] Urine glucose measurement by automated test strip (mass/volume)Ordered By: PROVIDER TEMP on 06-19-2023 Glucose Auto test strip (U) [Mass/Vol] Normal mg/dL Normal [facility] Urine hemoglobin detection b y automated test stripOrdered By: PROVIDER TEMP on 06-19-2023 Hemoglobin Auto test strip Ql (U) Negative Negative [facility] Urine leukocyte esterase det ection by automated test stripOrdered By: PROVIDER TEMP on 06-19-2023 Leukocyte esterase Auto test strip Ql (U) Negative Negative [facility] Urine nitrite detection by a utomated test stripOrdered By: PROVIDER TEMP on 06-19-2023 Nitrite Auto test strip Ql (U) Negative Negative [facility] Urobilinogen Auto test strip (U) [Mass/Vol]Ordered By: PROVIDER TEMP on 06-19-2023 Urobilinogen (U) [Mass/Vol] Normal mg/dL Normal [facility] WBC Auto (Bld) [#/Vol]Ordere d By: PROVIDER TEMP on 06-19-2023 WBC (Bld) [#/Vol] 4.8 10*3/uL 4.1-10.5 [facility] pH Auto test strip (U)Ordere d By: PROVIDER TEMP on 06-19-2023 pH (U) 1.005 [pH] 1.001-1.03 0 [facility] pH (U) 5.5 [pH] 5.0-9.0 [facility] ECH echo transthoracicon ECH echo transthoracic [facility] [place] [address] Echocardiogram Signed Patient: Yonatan Patel MR#: [id number] 6 : 1945 Acct:[id number] Age/Sex: 77 / M ADM Date: 03/01/23 Loc: Room: [address] [place] [address] Type: ADM INOo Attending Dr: Angely Lee DO Ordering Provider: Bobo Villagomez MD Date of Service: 03/01/23 ECH/ECH echo transthoracic: Neuro Symptoms/Deficit Copies to: Sinan Sahu MD, [facility] Bobo Villagomez MD Weight: 188 lb [...] By: Sinan Sahu MD, FACC 03/02/23 1215 [facility] MR cervical spine wo conon 0 03-02-2023 MR cervical spine wo [facility] [place] [address] MRI Report Signed Patient: Yonatan Patel MR#: [id number] 6 : 1945 Acct:[id number] Age/Sex: 77 / M ADM Date: 03/01/23 Loc: 3T Room: [address] [place] [address] Type: ADM INOo Attending Dr: Angely Lee [...] Daisha Fernandez M.D.03/02/2023 5:11 PM Dictation Location: [place] [address] Transcribed By: [facility] 03/02/23 171 Dictated By: Daisha Fernandez II, MD 03/02/23 1700 Signed By: 03/02/231710 [facility] MR lumbar spine wo conon MR lumbar spine wo con [facility] Main [place] [address] [place] [address] MRI Report Signed Patient: Yonatan Patel MR#: [id number] 6 : 1945 Acct:[id number] Age/Sex: 77 / M ADM Date: 03/01/23 Loc: Room: [address] [place] [address] Type: ADM INOo Attending Dr: Angely Lee [...] Daisha Fernandez M.D.03/02/2023 5:18 PM Dictation Location: [place] [address] Transcribed By: [facility] 03/02/231717 Dictated By: Daisha Fernandez II, MD 03/02/231710 Signed By: 03/02/231717 Normal [facility] A1C with Estimated [facility] 03-01-2023 Glucose [Mass/Vol] 123 mg/dL Normal [facility] Comment on above: Order Comment: Trevor hdez add on Result Comment: PERF ORMED BY: [place] [address] PATHOLOGIST [employer] HARRY MARTI M.D. Performed By: #### A [facility]C [facility] eA, LIPID #### [address] HbA1c (Bld) [Mass fraction] 5.9 % High 4.3-5.6 [facility] Comment on above: Order Comment: Trevor hdez add on Result Comment: Incr eased risk for diabetes: 5.7 - 6.4 diabetes: >6.4 glycemic control for adults with diabetes: <7.0 Performed By: #### A 1C [facility] eA, LIPID #### [facility] [address] [place] [address] Activated partial thrombopla stin time (aPTT) in platelet poor plasma by coagulation aOrdered By: Alejo Lynn on 03-01-2023 aPTT Coag (PPP) [Time] 27.2 s 25.1-36.5 [facility] Alanine aminotransferase [En zymatic activity/volume] in Serum or PlasmaOrdered By: Alejo Lynn on 03-01-2023 ALT [Catalytic activity/Vol] 34 U/L 7-52 [facility] Albumin [Mass/volume] in Ser um or Plasma by Bromocresol green (BCG) dye binding methoOrdered By: Alejo Lynn on 03-01-2023 Albumin BCG dye [Mass/Vol] 4.4 g/dL 3.5-5.7 [facility] Alkaline phosphatase [Enzyma tic activity/volume] in Serum or PlasmaOrdered By: Alejo Lynn on 03-01-2023 ALP [Catalytic activity/Vol] 61 U/L 34-104 [facility] Aspartate aminotransferase [ Enzymatic activity/volume] in Serum or PlasmaOrdered By: Alejo Lynn on 03-01-2023 AST [Catalytic activity/Vol] 30 U/L 13-39 [facility] B-Type Natriuretic Peptideon 03-01-2023 Natriuretic peptide B (Bld) [Mass/Vol] 96.0 pg/mL Normal 5-100 [facility] Comment on above: Result Comment: PERF ORMED BY: [place] [address] PATHOLOGIST [employer] HARRY MARTI M.D. Performed By: #### H S TROP, CMP, CK, CBC #### [facility] [address] [place] [address] Basic Metabolic Panelon 02-14 Anion gap [Moles/Vol] 10.3 mmol/L Normal 6.0-15.0 [facility] Comment on above: Performed By: #### H S TROP, CMP, CK, CBC #### [facility] [address] [place] [address] [place] Calcium [Mass/Vol] 9.7 mg/dL Normal 8.6-10.3 [facility] Comment on above: Performed By: #### H S TROP, CMP, CK, CBC #### [facility] [address] [place] [address] [place] Chloride [Moles/Vol] 107 mmol/L Normal 98-107 [facility] Comment on above: Performed By: #### H S TROP, CMP, CK, CBC #### [facility] [address] [place] [address] [place] CO2 [Moles/Vol] 26.0 mmol/L Normal 21.0-31.0 [facility] Comment on above: Performed By: #### H S TROP, CMP, CK, CBC #### [facility] [address] [place] [address] [place] Creatinine [Mass/Vol] 0.91 mg/dL Normal 0.70-1.30 [facility] Comment on above: Performed By: #### H S TROP, CMP, CK, CBC #### [facility] [address] [place] [address] [place] Creatinine Clr Calc Pharmacy 76.53 [facility] Comment on above: Result Comment: PERF ORMED BY: [place] [address] PATHOLOGIST [employer] HARRY MARTI M.D. Performed By: #### H S TROP, CMP, CK, CBC #### [facility] [address] [place] [address] [place] GFR/1.73 sq M.predicted MDRD (S/P/Bld) [Vol rate/Area] mL/min/{1.73_m2} [facility] Comment on above: Performed By: #### H S TROP, CMP, CK, CBC #### [facility] [address] [place] [address] [place] Glucose [Mass/Vol] 106 mg/dL High 70-100 [facility] Comment on above: Result Comment: [facility] Glucose Reference Range is dependent on time and content of last meal. Glucose of more than 200 mg/dL in a nonstressed, ambulatory subject supports the diagnosis of Diabetes Mellitus. ADA recommended reference range Performed By: #### H S TROP, CMP, CK, CBC #### [facility] [address] Potassium [Moles/Vol] 4.3 mmol/L Normal 3.5-5.1 [facility] Comment on above: Performed By: #### H S TROP, CMP, CK, CBC #### [facility] [address] Sodium [Moles/Vol] 139 mmol/L Normal 136-145 [facility] Comment on above: Performed By: #### H S TROP, CMP, CK, CBC #### [facility] [address] Urea nitrogen [Mass/Vol] 16 mg/dL Normal 7-25 [facility] Comment on above: Performed By: #### H S TROP, CMP, CK, CBC #### [facility] [address] Basophils Auto (Bld) [#/Vol] Ordered By: Alejo Lynn on 03-01-2023 Basophils (Bld) [#/Vol] 0.0 10*3/uL 0.0-0.2 [facility] Basophils/100 WBC Auto (Bld) Ordered By: Alejo Lynn on 03-01-2023 Basophils/100 WBC (Bld) 0.7 % . [facility] Bilirubin Test strip Ql (U)O rdered By: Alejo Lynn on 03-01-2023 Bilirubin Ql (U) Negative Negative [facility] Bilirubin.direct [Mass/volum e] in Serum or PlasmaOrdered By: Alejo Lynn on 03-01-2023 Bilirubin.direct [Mass/Vol] 0.30 mg/dL 0.03-0.18 [facility] Bilirubin.total [Mass/volume ] in Serum or PlasmaOrdered By: Alejo Lynn on 03-01-2023 Bilirubin [Mass/Vol] 1.7 mg/dL 0.3-1.0 [facility] Comment on above: Samples from patient s who have taken Naproxen have shown spurious elevation in Total Bilirubin levels. A metabolite of Naproxen, O-desmethylnaproxen, has been shown to interfere with the Jendryoletteik-Grof method for measuring Total Bilirubin. CT head stroke alert wo noelo n 03-01-2023 CT head stroke alert wo con [facility] Main [place] [address] [place] [address] CT Scan Report Signed Patient: Yonatan Patel MR#: [id number] 6 : 1945 Acct:[id number] Age/Sex: 77 / M ADM Date: 03/01/23 Loc: ER Room: Type: [facility] ER Attending Dr: Copies to: [...] Selena Reid M.D.03/01/2023 8:13 AM Dictation Location: [place] [address] Transcribed By: [facility] 03/01/23812 Dictated By: Selena Reid MD 03/01/23806 Signed By: 03/01/23812 [facility] Calcium [Mass/volume] in Ser um or PlasmaOrdered By: Alejo Lynn on 03-01-2023 Calcium [Mass/Vol] 9.7 mg/dL 8.6-10.3 [facility] Carbon dioxide, total [Moles /volume] in Serum or PlasmaOrdered By: Alejo Lynn on 03-01-2023 CO2 [Moles/Vol] 26.0 mmol/L 21.0-31.0 [facility] Chloride [Moles/volume] in S raymundo or PlasmaOrdered By: Alejo Lynn on 03-01-2023 Chloride [Moles/Vol] 107 mmol/L 98-107 [facility] Color Auto (U)Ordered By: Franco red Leah on 03-01-2023 Color (U) Yellow Yellow [facility] Complete Blood Count Auto Di ffon 03-01-2023 Basophils (Bld) [#/Vol] 0.0 10*3/uL Normal 0.0-0.2 [facility] Comment on above: Result Comment: PERF ORMED BY: [place] [address] PATHOLOGIST [employer] HARRY MARTI M.D. Performed By: #### H S TROP, CMP, CK, CBC #### [address] Basophils/100 WBC (Bld) 0.7 % Normal . [facility] Comment on above: Performed By: #### H S TROP, CMP, CK, CBC #### [facility] [address] [place] [address] [place] Eosinophils (Bld) [#/Vol] 0.1 10*3/uL Normal 0.0-0.45 [facility] Comment on above: Performed By: #### H S TROP, CMP, CK, CBC #### [place] [address] [place] Eosinophils/100 WBC (Bld) 1.4 % Normal . [facility] Comment on above: Performed By: #### H S TROP, CMP, CK, CBC #### [facility] [address] [place] [address] Erythrocyte distribution width (RBC) [Ratio] 14.5 % Normal 12.0-14.8 [facility] Comment on above: Performed By: #### H S TROP, CMP, CK, CBC #### [address] Hematocrit (Bld) [Volume fraction] 43.2 % Normal 38.8-50.0 [facility] Comment on above: Performed By: #### H S TROP, CMP, CK, CBC #### [address] Hemoglobin (Bld) [Mass/Vol] 14.9 g/dL Normal 13.0-17.0 [facility] Comment on above: Performed By: #### H S TROP, CMP, CK, CBC #### [address] Lymphocytes (Bld) [#/Vol] 1.3 10*3/uL Normal 1.00-4.8 [facility] Comment on above: Performed By: #### H S TROP, CMP, CK, CBC #### [address] Lymphocytes/100 WBC (Bld) 23.7 % Normal . [facility] Comment on above: Performed By: #### H S TROP, CMP, CK, CBC #### [address] MCH (RBC) [Entitic mass] 29.6 pg Normal 27.5-35.2 [facility] Comment on above: Performed By: #### H S TROP, CMP, CK, CBC #### [address] MCV (RBC) [Entitic vol] 86.1 fL Normal 83.5-101 [facility] Comment on above: Performed By: #### H S TROP, CMP, CK, CBC #### [address] Mean Corpuscular HGB Conc 34.4 g/dL Normal 32.5-35.6 [facility] Comment on above: Performed By: #### H S TROP, CMP, CK, CBC #### [facility] [address] [place] [address] Monocytes (Bld) [#/Vol] 0.4 10*3/uL Normal 0.0-0.8 [facility] Comment on above: Performed By: #### H S TROP, CMP, CK, CBC #### [address] Monocytes/100 WBC (Bld) 17.75 % Normal 0.00-20.00 [facility] Comment on above: Performed By: #### H S TROP, CMP, CK, CBC #### [address] Monocytes/100 WBC (Bld) 8.3 % Normal . [facility] Comment on above: Performed By: #### H S TROP, CMP, CK, CBC #### [address] Neutrophils (Bld) [#/Vol] 3.5 10*3/uL Normal 1.8-7.7 [facility] Comment on above: Performed By: #### H S TROP, CMP, CK, CBC #### [address] Neutrophils/100 WBC (Bld) 65.9 % Normal . [facility] Comment on above: Performed By: #### H S TROP, CMP, CK, CBC #### [place] [address] [place] NRBC% 0.3 /100{WBC} Normal 0-0.5 [facility] Comment on above: Performed By: #### H S TROP, CMP, CK, CBC #### [address] Platelet mean volume (Bld) [Entitic vol] 8.0 fL Normal 6.6-10.1 [facility] Comment on above: Performed By: #### H S TROP, CMP, CK, CBC #### [place] [address] [place] Platelets (Bld) [#/Vol] 143 10*3/uL Low 150-450 [facility] Comment on above: Performed By: #### H S TROP, CMP, CK, CBC #### [facility] [address] RBC (Bld) [#/Vol] 5.02 10*6/uL Normal 3.90-5.60 [facility] Comment on above: Performed By: #### H S TROP, CMP, CK, CBC #### [facility] [address] WBC (Bld) [#/Vol] 5.4 10*3/uL Normal 4.1-10.5 [facility] Comment on above: Performed By: #### H S TROP, CMP, CK, CBC #### [address] Creatine Kinaseon 03-01-2023 CK [Catalytic activity/Vol] 178 U/L Normal 30-223 [facility] Comment on above: Performed By: #### H S TROP, CMP, CK, CBC #### [address] Creatine kinase [Enzymatic a ctivity/volume] in Serum or PlasmaOrdered By: Alejo Lynn on 03-01-2023 CK [Catalytic activity/Vol] 178 U/L 30-223 [facility] Creatinine [Mass/volume] in Serum or PlasmaOrdered By: Alejo Lynn on 03-01-2023 Creatinine [Mass/Vol] 0.91 mg/dL 0.70-1.30 [facility] ECG 12 lead ECGon 03-01-2023 ECG 12 lead ECG [facility] Main [place] [address] [place] [address] Electrocardiograph Report Signed Patient: Yonatan Patel MR#: [id number] 6 : 1945 Acct:[id number] Age/Sex: 77 / M ADM Date: 03/01/23 Loc: Room: [address] [place] [address] Type: ADM INOo Attending Dr: Bobo Villagomez [...] longer present Confirmed by Alejo Lynn DO ([id number]) on 03/01/2023 3:12:57 PM Referred By: Electronically Signed By:Alejo Lynn DO Transcribed By: MUS Signed By Alejo Lynn DO 3 1513 Normal [facility] Eosinophils Auto (Bld) [#/Vo l]Ordered By: Alejo Lynn on 03-01-2023 Eosinophils (Bld) [#/Vol] 0.1 10*3/uL 0.0-0.45 [facility] Eosinophils/100 WBC Auto (Bl d)Ordered By: Alejo Lynn on 03-01-2023 Eosinophils/100 WBC (Bld) 1.4 % . [facility] Erythrocyte distribution wid th Auto (RBC) [Ratio]Ordered By: Alejo Lynn on 03-01-2023 Erythrocyte distribution width (RBC) [Ratio] 14.5 % 12.0-14.8 [facility] Globulin Calc (S) [Mass/Vol] Ordered By: Alejo Lynn on 03-01-2023 Globulin (S) [Mass/Vol] 2.3 g/dL [facility] Glucose [Mass/volume] in Ser um or PlasmaOrdered By: Alejo Lynn on 03-01-2023 Glucose [Mass/Vol] 106 mg/dL 70-100 [facility] Comment on above: ADA recommended refe rence rangeRandom Glucose Reference Range is dependent on time and content of last meal. Glucose of more than 200 mg/dL in a nonstressed, ambulatory subject supports the diagnosis of Diabetes Mellitus. Hematocrit Auto (Bld) [Volum e fraction]Ordered By: Alejo Lynn on 03-01-2023 Hematocrit (Bld) [Volume fraction] 43.2 % 38.8-50.0 [facility] Hemoglobin [Mass/volume] in BloodOrdered By: Alejo Lynn on 03-01-2023 Hemoglobin (Bld) [Mass/Vol] 14.9 g/dL 13.0-17.0 [facility] Hepatic Panelon 03-01-2023 Albumin [Mass/Vol] 4.4 g/dL Normal 3.5-5.7 [facility] Comment on above: Performed By: #### H S TROP, CMP, CK, CBC #### [facility] [address] Albumin/Globulin [Mass ratio] 1.9 {ratio} Normal [facility] Comment on above: Performed By: #### H S TROP, CMP, CK, CBC #### [facility] [address] [place] [address] [place] ALP [Catalytic activity/Vol] 61 U/L Normal 34-104 [facility] Comment on above: Performed By: #### H S TROP, CMP, CK, CBC #### [facility] [address] [place] [id number] [place] ALT [Catalytic activity/Vol] 34 U/L Normal 7-52 [facility] Comment on above: Performed By: #### H S TROP, CMP, CK, CBC #### [facility] [address] [place] [id number] [place] AST [Catalytic activity/Vol] 30 U/L Normal 13-39 [facility] Comment on above: Performed By: #### H S TROP, CMP, CK, CBC #### [facility] [address] [place] [id number] [place] Bilirubin [Mass/Vol] 1.7 mg/dL High 0.3-1.0 [facility] Comment on above: Result Comment: Samp les from patients who have taken Naproxen have shown spurious elevation in Total Bilirubin levels. A metabolite of Naproxen, O-desmethylnaproxen, has been shown to interfere with the Jennicole-Grof method for measuring Total Bilirubin. Performed By: #### H S TROP, CMP, CK, CBC #### [facility] [address] Bilirubin,Indirect 1.4 mg/dL Normal [facility] Comment on above: Performed By: #### H S TROP, CMP, CK, CBC #### [facility] [address] Bilirubin.indirect [Mass/Vol] 0.30 mg/dL High 0.03-0.18 [facility] Comment on above: Performed By: #### H S TROP, CMP, CK, CBC #### [facility] [address] Globulin (S) [Mass/Vol] 2.3 g/dL Normal [facility] Comment on above: Performed By: #### H S TROP, CMP, CK, CBC #### [facility] [address] Protein [Mass/Vol] 6.7 g/dL Normal 6.4-8.9 [facility] Comment on above: Performed By: #### H S TROP, CMP, CK, CBC #### [facility] [address] Ketones Auto test strip (U) [Mass/Vol]Ordered By: Alejo Lynn on 03-01-2023 Ketones (U) [Mass/Vol] Negative Negative [facility] Laboratory - CoagulationOrde red By: Alejo Lynn on 03-01-2023 PT Coag (PPP) [Time] 11.6 s 9.0-12.9 [facility] Leukocytes [#/volume] correc airam for nucleated erythrocytes in Blood by Automated counOrdered By: Alejo Lynn on 03-01-2023 WBC corrected for nucl RBC Auto (Bld) [#/Vol] 5.4 10*3/uL 4.1-10.5 [facility] Lipid Panelon 03-01-2023 Cholesterol [Mass/Vol] 96 mg/dL Low 140-200 [facility] Comment on above: Order Comment: Comme nt add on Result Comment: Chol less than 200 mg/dl low risk Chol 201-239 mg/dl borderline risk Chol 240 mg/dl and greater high risk Performed By: #### A 1C [facility] Krista, LIPID #### [facility] [address] Cholesterol in HDL [Mass/Vol] 36 mg/dL Normal 23-92 [facility] Comment on above: Order Comment: Comme nt add on Result Comment: HDL CHOL ATP-III CLASSIFICATION Cardiovascular Risk HDL > or equal to 60 mg/dL LOW HDL < 40 mg/dL HIGH Performed By: #### A 1C [facility] Krista, LIPID #### [facility] [address] Cholesterol.total/Chol esterol in HDL [Mass ratio] 2.7 {ratio} Normal <5.0 [facility] Comment on above: Order Comment: Comme nt add on Result Comment: PERF ORMED BY: [place] [address] PATHOLOGIST [employer] HARRY MARTI M.D. Performed By: #### A 1C [facility] Krista, LIPID #### [facility] [address] LDL Cholesterol,Calculated 39 mg/dL Normal 0-100 [facility] Comment on above: Order Comment: Comme nt add on Result Comment: LDL ATP III CLASSIFICATION LDL less than 100 mg/dL Optimal LDL 100-129 mg/dL Near or above optimal LDL 130-159 mg/dL Borderline high LDL 160-189 mg/dL High LDL greater than 189 mg/dL Very high Performed By: #### A 1C [facility] Krista, LIPID #### [facility] [address] [place] [id number] [place] Triglyceride w/Reflex 106 mg/dL Normal 0-149 [facility] Comment on above: Order Comment: Comme nt add on Result Comment: TRIG ATP III CLASSIFICATION TRIG less than 150 mg/dL Normal TRIG 150-199 mg/dL Borderline high TRIG 200-500 mg/dL High TRIG greater than 500 mg/dL Very high Standard traceable to the Center for Disease Conrtrol and Prevention (CDC) test method. Performed By: #### A 1C [facility] eA, LIPID #### [facility] [address] VLDL CHOLESTEROL 21 mg/dL Normal [facility] Comment on above: Order Comment: Comme nt add on Performed By: #### A 1C WT eA, LIPID #### [facility] [address] [address] Lymphocytes Auto (Bld) [#/Vo l]Ordered By: Alejo Lynn on 03-01-2023 Lymphocytes (Bld) [#/Vol] 1.3 10*3/uL 1.00-4.8 [facility] Lymphocytes/100 WBC Auto (Bl d)Ordered By: Alejo Lynn on 03-01-2023 Lymphocytes/100 WBC (Bld) 23.7 % . [facility] MCH Auto (RBC) [Entitic mass ]Ordered By: Alejo Lynn on 03-01-2023 MCH (RBC) [Entitic mass] 29.6 pg 27.5-35.2 [facility] MCHC Auto (RBC) [Mass/Vol]Or dered By: Alejo Lynn on 03-01-2023 MCHC (RBC) [Mass/Vol] 34.4 g/dL 32.5-35.6 [facility] [place] [facility] MCV Auto (RBC) [Entitic vol] Ordered By: Alejo Lynn on 03-01-2023 MCV (RBC) [Entitic vol] 86.1 fL 83.5-101 [facility] Monocyte distribution width [Entitic volume] in Blood by AutomatedOrdered By: Alejo Lynn on 03-01-2023 Monocyte distribution width Auto (Bld) [Entitic vol] 17.75 % 0.00-20.00 [facility] Monocytes Auto (Bld) [#/Vol] Ordered By: Alejo Lynn on 03-01-2023 Monocytes (Bld) [#/Vol] 0.4 10*3/uL 0.0-0.8 [facility] Monocytes/100 WBC Auto (Bld) Ordered By: Alejo Lynn on 03-01-2023 Monocytes/100 WBC (Bld) 8.3 % . [facility] Natriuretic peptide B [Mass/ Vol]Ordered By: Alejo Lynn on 03-01-2023 Natriuretic peptide B (Bld) [Mass/Vol] 96.0 pg/mL 5-100 [facility] Neutrophils Auto (Bld) [#/Vo l]Ordered By: Alejo Lynn on 03-01-2023 Neutrophils (Bld) [#/Vol] 3.5 10*3/uL 1.8-7.7 [facility] Neutrophils/100 WBC Auto (Bl d)Ordered By: Alejo Lynn on 03-01-2023 Neutrophils/100 WBC (Bld) 65.9 % . [facility] Nitrite Test strip Ql (U)Ord ered By: Alejo Lynn on 03-01-2023 Nitrite Ql (U) Negative Negative [facility] No Panel InformationOrdered By: Alejo Lynn on 03-01-2023 Estimated GFR (CKD-EPI) > 60.0 mL/Min [facility] Creatinine Clearance (Chem 76.53 [facility] Nucleated erythrocytes [Pres ence] in Blood by Automated countOrdered By: Alejo Lynn on 03-01-2023 Nucleated RBC Auto Ql (Bld) 0.3 /100{WBC} 0-0.5 [facility] Partial Thromboplastin Timeo n 03-01-2023 aPTT Coag (Bld) [Time] 27.2 s Normal 25.1-36.5 [facility] Comment on above: Result Comment: PERF ORMED BY: [place] [address] PATHOLOGIST [employer]M MAK[employer] HARRY MARTI M.D. Performed By: #### H S TROP, CMP, CK, CBC #### [address] Platelet mean volume Auto (B ld) [Entitic vol]Ordered By: Alejo Lynn on 03-01-2023 Platelet mean volume (Bld) [Entitic vol] 8.0 fL 6.6-10.1 [facility] Platelet poor plasma interna tional normalized ratio (INR) by coagulation assay (relatOrdered By: Alejo Lynn on 03-01-2023 INR Coag (PPP) [Relative time] 1.0 {INR} [facility] Comment on above: INR Therapeutic Rang e [...] Platelets (Bld) [#/Vol] 143 10*3/uL 150-450 [facility] Potassium [Moles/volume] in Serum or PlasmaOrdered By: Alejo Lynn on 03-01-2023 Potassium [Moles/Vol] 4.3 mmol/L 3.5-5.1 [facility] Protein Auto test strip (U) [Mass/Vol]Ordered By: Alejo Lynn on 03-01-2023 Protein (U) [Mass/Vol] Negative Negative [facility] Protein [Mass/volume] in Ser um or PlasmaOrdered By: Alejo Lynn on 03-01-2023 Protein [Mass/Vol] 6.7 g/dL 6.4-8.9 [facility] Prothrombin Time INRon 03-01 INR Coag (PPP) [Relative time] 1.0 {INR} Normal [facility] Comment on above: Result Comment: INR Therapeutic [...] #### [facility] [address] PT Coag (PPP) [Time] 11.6 s Normal 9.0-12.9 [facility] Comment on above: Performed By: #### H S TROP, CMP, CK, CBC #### [facility] [address] [place] [address] RBC Auto (Bld) [#/Vol]Ordere d By: Alejo Lynn on 03-01-2023 RBC (Bld) [#/Vol] 5.02 10*6/uL 3.90-5.60 [facility] Serum or plasma albumin/glob ulin mass ratioOrdered By: Alejo Lynn on 03-01-2023 Albumin/Globulin [Mass ratio] 1.9 {ratio} [facility] Serum or plasma anion gap de terminationOrdered By: Alejo Lynn on 03-01-2023 Anion gap [Moles/Vol] 10.3 mmol/L 6.0-15.0 [facility] Serum or plasma non-glucuron idated bilirubin measurement (mass/volume)Ordered By: Alejo Lynn on 03-01-2023 Bilirubin.indirect [Mass/Vol] 1.4 mg/dL [facility] Sodium [Moles/volume] in Ser um or PlasmaOrdered By: Alejo Lynn on 03-01-2023 Sodium [Moles/Vol] 139 mmol/L 136-145 [facility] Specific gravity Auto test s trip (U) [Rel density]Ordered By: Alejo Lynn on 03-01-2023 Specific gravity (U) [Rel density] 1.014 1.001-1.03 0 [facility] Troponin I High Sensitivityo n 03-01-2023 Troponin I High Sensitivity 8.1 pg/mL Normal 0.0-20.0 [facility] Comment on above: Result Comment: PERF ORMED BY: [address] [place] [address] PATHOLOGIST [employer] HARRY MARTI M.D. Performed By: #### H S TROP, CMP, CK, CBC #### [facility] [address] [place] [address] Troponin I.cardiac [Mass/vol ume] in Serum or Plasma by Detection limit <= 0.01 ng/Ordered By: Alejo Lynn on 03-01-2023 Troponin I.cardiac DL <= 0.01 ng/mL [Mass/Vol] 8.1 pg/mL 0.0-20.0 [facility] Urea nitrogen [Mass/volume] in Serum or PlasmaOrdered By: Alejo Lynn on 03-01-2023 Urea nitrogen [Mass/Vol] 16 mg/dL 03-10 [facility] Urinalysison 03-01-2023 Appearance (U) Clear Normal Clear [facility] Comment on above: Order Comment: Name Collection Type:: Clean-Voided Midstream Performed By: #### U A #### [facility] [address] [place] [address] [place] Bilirubin,Urine Negative Normal Negative [facility] Comment on above: Order Comment: Name Collection Type:: Clean-Voided Midstream Performed By: #### U A #### [facility] [address] [place] [address] [place] Color (U) Yellow Normal Yellow [facility] Comment on above: Order Comment: Name Collection Type:: Clean-Voided Midstream Performed By: #### U A #### [facility] [address] [place] [address] [place] Glucose Ql (U) Normal Normal Normal [facility] Comment on above: Order Comment: Name Collection Type:: Clean-Voided Midstream Performed By: #### U A #### [facility] [address] [place] [address] [place] Ketones Ql (U) Negative Normal Negative [facility] Comment on above: Order Comment: Name Collection Type:: Clean-Voided Midstream Performed By: #### U A #### [facility] [address] [place] [address] [place] Leukocyte esterase Test strip Ql (U) Negative Normal Negative [facility] Comment on above: Order Comment: Name Collection Type:: Clean-Voided Midstream Performed By: #### U A #### [facility] [address] [place] [address] [place] Nitrite,Urine Negative Normal Negative [facility] Comment on above: Order Comment: Name Collection Type:: Clean-Voided Midstream Performed By: #### U A #### [facility] [address] [place] [address] [place] Occult Blood,Urine Negative Normal Negative [facility] Comment on above: Order Comment: Name Collection Type:: Clean-Voided Midstream Result Comment: PERF ORMED BY: [place] [address] PATHOLOGIST [employer]M MAKER HARRY MARTI M.D. Performed By: #### U A #### [facility] [address] [place] [address] pH (U) 7.5 [pH] Normal 5.0-9.0 [facility] Comment on above: Order Comment: Name Collection Type:: Clean-Voided Midstream Performed By: #### U A #### [facility] [address] [place] [address] Protein,Urine Negative Normal Negative [facility] Comment on above: Order Comment: Name Collection Type:: Clean-Voided Midstream Performed By: #### U A #### [facility] [address] [place] [address] Specificy [place],Urine 1.014 Normal 1.001-1.03 0 [facility] Comment on above: Order Comment: Name Collection Type:: Clean-Voided Midstream Performed By: #### U A #### [facility] [address] [place] [address] Urobilinogen,Urine Normal Normal Normal [facility] Comment on above: Order Comment: Name Collection Type:: Clean-Voided Midstream Performed By: #### U A #### [facility] [address] [place] [address] Urine clarity by refractomet ry automatedOrdered By: Alejo Lynn on 03-01-2023 Clarity Refractometry automated (U) Clear Clear [facility] Urine glucose measurement by automated test strip (mass/volume)Ordered By: Alejo Lynn on 03-01-2023 Glucose Auto test strip (U) [Mass/Vol] Normal mg/dL Normal [facility] Urine hemoglobin detection b y automated test stripOrdered By: Alejo Lynn on 03-01-2023 Hemoglobin Auto test strip Ql (U) Negative Negative [facility] Urine leukocyte esterase det ection by automated test stripOrdered By: Alejo Lynn on 03-01-2023 Leukocyte esterase Auto test strip Ql (U) Negative Negative [facility] Urobilinogen Auto test strip (U) [Mass/Vol]Ordered By: Alejo Lynn on 03-01-2023 Urobilinogen (U) [Mass/Vol] Normal mg/dL Normal [facility] WBC Auto (Bld) [#/Vol]Ordere d By: Alejo Lynn on 03-01-2023 WBC (Bld) [#/Vol] 5.4 10*3/uL 4.1-10.5 [facility] XR chest 1V portableon 03-01 XR chest 1V portable [facility] [place] [address] XRay Report Signed Patient: Yonatan Patel MR#: [id number] 6 : 1945 Acct:[id number] Age/Sex: 77 / M ADM Date: 03/01/23 Loc: Room: [address] [place] [address] Type: ADM INOo Attending Dr: Bobo Villagomez [...] Selena Reid M.D.03/01/2023 9:15 AM Dictation Location: [place] [address] Transcribed By: [facility] 03/01/23914 Dictated By: Selena Reid MD 03/01/2314 Signed By: 03/01/23914 [facility] pH Auto test strip (U)Ordere d By: Alejo Lynn on 03-01-2023 pH (U) 7.5 [pH] 5.0-9.0 [facility] H Pylori Stool Ag, EIAon H Pylori Stool Ag, EIA Negative Normal Negative [facility] Comment on above: Order Comment: SOURC E OF SPECIMEN: STOOL Result Comment: Perf ormed at: [facility] [address] [id number] [employer]oles[employer] Account Manager: Juan Howard MD, Phone: [phone] PERFORMED BY: [facility] [address] [place] [address] PATHOLOGIST [employer]M MAKER HARRY MARTI M.D. Performed By: #### H S TROP, CMP, CK, CBC #### [facility] [address] CBC AUTO DIFFon 09-14-2022 BASO # 0.0 103/ul Normal 0.0-0.1 [facility] Comment on above: Performed By: #### C BC #### [facility] [address] [place] [address] Dr. Patrica Nathan Basophils/100 WBC (Bld) 0.7 % Normal 0.2-2.0 [facility] Comment on above: Performed By: #### C BC #### [facility] [address] [place] [address] Dr. Patrica Nathan EO # 0.1 103/ul Normal 0.0-0.7 [facility] Comment on above: Performed By: #### C BC #### [facility] [address] [place] [address] [address] Patrica Nathan Eosinophils/100 WBC (Bld) 1.5 % Normal 0.9-7.0 [facility] Comment on above: Performed By: #### C BC #### [facility] [address] [place] [address] [address] Patrica Nathan Erythrocyte distribution width (RBC) [Ratio] 14.2 % Normal 11.0-15.0 [facility] Comment on above: Performed By: #### C BC #### [facility] [address] [place] [address] [address] Patrica Nathan Hematocrit (Bld) [Volume fraction] 42.1 % Normal 42.0-54.0 [facility] Comment on above: Performed By: #### C BC #### [facility] [address] [place] [address] Dr. Patrica Nathan Hemoglobin (Bld) [Mass/Vol] 14.6 g/dL Normal 14.0-18.0 [facility] Comment on above: Performed By: #### C BC #### [facility] [address] [place] [address] Dr. Patrica Nathan IG # 0.03 10e3/ul Normal 0.00-0.03 [facility] Comment on above: Performed By: #### C BC #### [facility] [address] [place] [address] Dr. Patrica Nathan IG % 0.5 % Normal 0.0-0.5 [facility] Comment on above: Performed By: #### C BC #### [facility] [address] [place] [address] Dr. Patrica Nathan LYMPH # 1.3 103/ul Normal 1.2-3.8 [facility] Comment on above: Performed By: #### C BC #### [facility] [address] [place] [address] Dr. Patrica Nathan Lymphocytes/100 WBC (Bld) 22.4 % Normal 20.5-60.0 [facility] Comment on above: Performed By: #### C BC #### [facility] [address] [place] [address] Dr. Patrica Nathan MANUAL DIFF REQ NO Normal [facility] Comment on above: Performed By: #### C BC #### [facility] [address] [place] [address] Dr. Patrica Nathan MCH (RBC) [Entitic mass] 29.4 pg Normal 25.9-34.0 [facility] Comment on above: Performed By: #### C BC #### [facility] [address] [place] [address] Dr. Patrica Nathan MCHC (RBC) [Mass/Vol] 34.7 g/dL Normal 29.9-35.2 [facility] Comment on above: Performed By: #### C BC #### [facility] [address] [place] [address] [address] Patrica Nathan MCV (RBC) [Entitic vol] 84.9 fL Normal 80.0-94.0 [facility] Comment on above: Performed By: #### C BC #### [facility] [address] [place] [address] [address] Patrica Nathan MONO # 0.6 103/ul Normal 0.3-0.8 [facility] Comment on above: Performed By: #### C BC #### [facility] [address] [place] [address] [address] Patrica Nathan Monocytes/100 WBC (Bld) 9.9 % Normal 1.7-12.0 [facility] Comment on above: Performed By: #### C BC #### [facility] [address] [place] [address] [address] Patrica Nathan NEUT # 3.9 103/ul Normal 1.4-6.5 [facility] Comment on above: Performed By: #### C BC #### [facility] [address] [place] [address] [address] Patrica Nathan Neutrophils/100 WBC (Bld) 65.0 % Normal 43.0-75.0 [facility] Comment on above: Performed By: #### C BC #### [facility] [address] [place] [address] [address] Patrica Nathan Platelet mean volume (Bld) [Entitic vol] 9.6 fL Normal 9.5-13.5 [facility] Comment on above: Performed By: #### C BC #### [facility] [address] [place] [address] [address] Patrica Nathan PLT 170 103/ul Normal 150-450 [facility] Comment on above: Performed By: #### C BC #### [facility] [address] [place] [address] [address] Patrica Nathan RBC 4.96 106/ul Normal 4.70-6.10 [facility] Comment on above: Performed By: #### C BC #### [facility] [address] [place], [place] [address] Dr. Patrica Nathan WBC 6.0 103/ul Normal 4.0-11.0 [facility] Comment on above: Performed By: #### C BC #### [facility] [address] [place], [place] [address] HEAD WO CONon [...] ANGELY KENNEDY Date: 2022-09-14 10:00 Normal [facility] PROF 14(COMP METB)on 023 Albumin [Mass/Vol] 3.7 g/dL Normal 3.4-5.0 [facility] Comment on above: Performed By: #### C MP, HSTROPN #### [facility] [address] [place], [place] [address] Dr. Patrica Nathan Albumin/Globulin [Mass ratio] 1.4 {ratio} Normal [facility] Comment on above: Performed By: #### C MP, HSTROPN #### [facility] [address] [place] [address] [address] Patrica Nathan ALP [Catalytic activity/Vol] 83 U/L Normal 46-116 [facility] Comment on above: Performed By: #### C MP, HSTROPN #### [facility] [address] [place] [address] [address] Patrica Nathan ALT [Catalytic activity/Vol] 57 U/L Normal 16-63 [facility] Comment on above: Performed By: #### C MP, HSTROPN #### [facility] [address] [place] [address] Dr. Patrica Nathan Anion gap [Moles/Vol] 11.9 mmol/L Normal [facility] Comment on above: Performed By: #### C MP, HSTROPN #### [facility] [address] [place] [address] Dr. Patrica Nathan AST [Catalytic activity/Vol] 43 U/L Critically high 15-37 [facility] Comment on above: Performed By: #### C MP, HSTROPN #### [facility] [address] [place] [address] Dr. Patrica Nathan Bilirubin [Mass/Vol] 1.1 mg/dL Critically high 0.2-1.0 [facility] Comment on above: Performed By: #### C MP, HSTROPN #### [facility] [address] [place] [address] Dr. Patrica Nathan Calcium [Mass/Vol] 9.2 mg/dL Normal 8.5-10.1 [facility] Comment on above: Performed By: #### C MP, HSTROPN #### [facility] [address] [place] [address] Dr. Patrica Nathan Chloride [Moles/Vol] 106 mmol/L Normal 98-107 [facility] Comment on above: Performed By: #### C MP, HSTROPN #### [facility] [address] [place] [address] Dr. Patrica Nathan CO2 [Moles/Vol] 28.0 mmol/L Normal 21.0-32.0 [facility] Comment on above: Performed By: #### C MP, HSTROPN #### [facility] [address] [place] [address] [address] Patrica Nathan Creatinine [Mass/Vol] 0.92 mg/dL Normal 0.70-1.30 [facility] Comment on above: Performed By: #### C MP, HSTROPN #### [facility] [address] [place] [address] [address] Patrica Nathan EGFR-AF MICRONESIAN >60 Normal >=60 [facility] Comment on above: Performed By: #### C MP, HSTROPN #### [facility] [address] [place] [address] Dr. Patrica Nathan EGFR-NON AF MICRONESIAN >60 Normal >=60 [facility] Comment on above: Performed By: #### C MP, HSTROPN #### [facility] [address] [place] [address] Dr. Patrica Nathan Globulin (S) [Mass/Vol] 2.7 g/dL Normal [facility] Comment on above: Performed By: #### C MP, HSTROPN #### [facility] [address] [place] [address] Dr. Patrica Nathan Glucose [Mass/Vol] 90 mg/dL Normal 74-106 [facility] Comment on above: Performed By: #### C MP, HSTROPN #### [facility] [address] [place] [address] [address] Patrica Nathan Potassium [Moles/Vol] 3.9 mmol/L Normal 3.5-5.1 [facility] Comment on above: Performed By: #### C MP, HSTROPN #### [facility] [address] [place] [address] [address] Patrica Nathan Protein [Mass/Vol] 6.4 g/dL Normal 6.4-8.2 [facility] Comment on above: Performed By: #### C MP, HSTROPN #### [facility] [address] [place] [address] [address] Patrica Nathan Sodium [Moles/Vol] 142 mmol/L Normal 136-145 [facility] Comment on above: Performed By: #### C JV, HSTROPN #### [facility] [address] [place] [address] [address] Patrica Nathan Urea nitrogen [Mass/Vol] 19.0 mg/dL Critically high 7.0-18.0 [facility] Comment on above: Performed By: #### C JV, HSTROPN #### [facility] [address] [place] [address] [address] Patrica Nathan Urea nitrogen/Creatinine [Mass ratio] 20.7 mg/mg Normal [facility] Comment on above: Performed By: #### C JV, HSTROPN #### [facility] [address] [place] [address] [address] Patrica Nathan TROPONIN, HIGH SENSITIVITYon 09-14-2022 HSTROP 5.8 pg/mL Normal 4.0-76.1 [facility] Comment on above: Result Comment: CUT- OFF POINTS HAVE BEEN ESTABLISHED BASED ON THE FOURTH UNIVERSAL DEFINITIONS OF MYOCARDIAL INFARCTION. THE UPPER REFERENCE LIMIT (URL) OF TROPONIN, DEFINED THE 99TH PERCENTILE OF cTnI DISTRIBUTION IN A REFERENCE POPULATION, HAS BEEN CONFIRMED THE DECISION THRESHOLD FOR [place] DIAGNOSIS. Performed By: #### C JV, HSTROPN #### [facility] [address] [place] [address] Dr. Patrica Nathan XR CHEST 1 Von 09-14-2022 XR CHEST 1 V EXAM: XR CHEST 1 V HISTORY: Near syncope COMPARISON: None. TECHNIQUE: Single view of the chest FINDINGS: Heart size normal. No focal consolidation, pleural effusion, pulmonary congestion or pneumothorax. IMPRESSION: No acute findings. Electronically authenticated by: PASTORA DREW Date: 2022-09-14 10:01 Normal [facility] Alex 08-27-2022 L ------- Specimen: [id number] Received: 08/27/22 Status: MARIAH Coburnraven Num: [id number] Spec Type: Surgical Subm Dr: Maryjane Christensen MD Tissues: A Gastric Biopsy (GASTRIC BX) B Colon Biopsy (ASCENDING POLYP) C Colon Biopsy (SIGMIOD POLYP) Procedures: Henrietta PRADO/Micro L4/3, H PYLORI Age/ Patient Sex Location Account Attending Physician Yonatan Patel 77/M [id number] Alek Oliva MD SPEC NUM: [id number] RECD: 08/27/22 STATUS: MARIAH GUS NUM: [id number] EVE: 08/27/22- SUBM DR: Maryjane Christensen MD ENTERED: 08/27/[address]: SPEC TYPE: Surgical DEPT: S ORDERED: HE/6, Gross/Micro L4/3, H PYLORI ORDERED: HE/6, Gross/Micro L4/3, H PYLORI Supplemental Report Addendum 1 Entered: 08/28/22 A. Immunohistochemical stain for Helicobacter Pylori is POSITIVE. Addendum Signed (signature on file) Aaliyah Beard MD 08/28/22 1556 Pathological Diagnosis A. Stomach, gastric, biopsy: - Moderate chronic active gastritis. - Positive for Helicobacter pylori like organisms on H E stain. COMMENT: Confirmatory Helicobacter pylori immunohistochemical stain is being performed, an addendum report will be issued on completion. B. Colon, ascending, polypectomy: - Tubular adenoma. Specimen: [id number] Received: 08/27/22 Status: MARIAH Gilmore Num: [id number] Spec Type: Surgical Subm Dr: Maryjane Christensen MD Tissues: A Gastric Biopsy (GASTRIC BX) B Colon Biopsy (ASCENDING POLYP) C Colon Biopsy (SIGMIOD POLYP) Procedures: HE/6, Gross/Micro L4/3, H PYLORI Patient: NicholasYonatan Garcia [id number] (Continued) Specimen: [id number] Received: 08/27/22 (Continued) Pathological Diagnosis (Continued) Signed (signature on file) Aaliyah Beard MD 08/28/22 1236 Specimen: [id number] Received: 08/27/22 Status: MARIAH Gus Num: [id number] Spec Type: Surgical Subm Dr: Maryjane Christensen MD Tissues: A Gastric Biopsy (GASTRIC BX) B Colon Biopsy (ASCENDING POLYP) C Colon Biopsy (SIGMIOD POLYP) Procedures: HE/6, Gross/Micro L4/3, H PYLORI Patient: NicholasYonatan [id number] (Continued) Specimen: [id number] Received: 08/27/22 (Continued) Pathological Diagnosis (Continued) C. [...] support the above pathologic diagnosis. CPT Codes 38014?3 Specimen: [id number] Received: 08/27/22 Status: MARIAH [place] Num: [id number] Spec Type: Surgical Subm Dr: Maryjane Christensen MD Tissues: A Gastric Biopsy (GASTRIC BX) B Colon Biopsy (ASCENDING POLYP) C Colon Biopsy (SIGMIOD POLYP) Procedures: HE/6, Gross/Micro L4/3, H PYLORI --------- (more content not included)... Normal [facility] MRI BRAIN WO CONon MRI BRAIN WO CON EXAMINATION: MRI BRA [...] by: BERHANE HERNANDEZ Date: 2022-07-29 08:42 Normal [facility] LIPID PROFILEon 07-28-2022 CHOL-HDL RATIO NORM SEE BELOW Normal [facility] Comment on above: Result Comment: 3.3 - 4.4 LOW RISK 4.4 - 7.1 AVERAGE RISK 7.1 - 11.0 MODERATE RISK >11.0 HIGH RISK Performed By: #### C MACARIO CARIAS #### [facility] [address] [address] [address] Patrica Nathan Cholesterol [Mass/Vol] 97 mg/dL Normal <=200 [facility] Comment on above: Performed By: #### C MARY CARIASTRMARITZAN #### [facility] [address] [address] [address] Patrica Nathan Cholesterol in HDL [Mass/Vol] 40 mg/dL Normal 40-60 [facility] Comment on above: Performed By: #### C MP, HSTROPN #### [facility] [address] [address] [address] Patrica Nathan Cholesterol in LDL [Mass/Vol] 31.8 mg/dL Normal [facility] Comment on above: Performed By: #### C JV, HSTROPN #### [facility] [address] [address] [address] Patrica Nathan Cholesterol.total/Chol esterol in HDL [Mass ratio] 2.4 {ratio} Normal [facility] Comment on above: Performed By: #### C MP, HSTROPN #### [facility] [address] [place] [address] Dr. Patrica Nathan HDL NORMAL > or = 60 mg/dl - LO W CARDIOVASCULAR RISK <40 mg/dl - HIGH CARDIOVASCULAR RISK Normal [facility] Comment on above: Performed By: #### C JV, HSTROPN #### [facility] [address] [address] [address] Patrica Nathan LDL CALC NORMAL SEE BELOW Normal [facility] Comment on above: Result Comment: <100 mg/dl OPTIMAL 100 - 129 mg/dl NEAR OR ABOVE OPTIMAL 130 - 159 mg/dl BORDERLINE HIGH 160 - 189 mg/dl HIGH >190 mg/dl VERY HIGH Performed By: #### C JV, HSTROPN #### [facility] [address] [address] [address] Patrica Nathan Triglyceride [Mass/Vol] 126 mg/dL Normal <=150 [facility] Comment on above: Performed By: #### C JV, HSTROPN #### [facility] [address] [address] [address] Patrica Nathan VLDL CALC 25.2 mg/dL Normal [facility] Comment on above: Performed By: #### C JV, HSTROPN #### [facility] [address] [address] [address] Patrica Nathan CBC AUTO DIFFon 11-15-2022 BASO # 0.0 103/ul Normal 0.0-0.1 [facility] Comment on above: Performed By: #### C BC #### [facility] [address] [place] [address] Dr. Patrica Nathan Basophils/100 WBC (Bld) 0.5 % Normal 0.2-2.0 [facility] Comment on above: Performed By: #### C BC #### [facility] [address] [place] [address] Dr. Patrica Nathan EO # 0.1 103/ul Normal 0.0-0.7 [facility] Comment on above: Performed By: #### C BC #### [facility] [address] [place] [address] Dr. Patrica Nathan Eosinophils/100 WBC (Bld) 2.2 % Normal 0.9-7.0 [facility] Comment on above: Performed By: #### C BC #### [facility] [address] [place] [address] Dr. Patrica Nathan Erythrocyte distribution width (RBC) [Ratio] 14.3 % Normal 11.0-15.0 [facility] Comment on above: Performed By: #### C BC #### [facility] [address] [place] [address] Dr. Patrica Nathan Hematocrit (Bld) [Volume fraction] 45.8 % Normal 42.0-54.0 [facility] Comment on above: Performed By: #### C BC #### [facility] [address] [place] [address] Dr. Patrica Nathan Hemoglobin (Bld) [Mass/Vol] 15.1 g/dL Normal 14.0-18.0 [facility] Comment on above: Performed By: #### C BC #### [facility] [address] [place] [address] Dr. Patrica Nathan IG # 0.01 10e3/ul Normal 0.00-0.03 [facility] Comment on above: Performed By: #### C BC #### [facility] [address] [place] [address] Dr. Patrica Nathan IG % 0.2 % Normal 0.0-0.5 [facility] Comment on above: Performed By: #### C BC #### [facility] [address] [place] [address] Dr. Patrica Nathan LYMPH # 1.4 103/ul Normal 1.2-3.8 [facility] Comment on above: Performed By: #### C BC #### [facility] [address] [place] [address] Dr. Patrica Nathan Lymphocytes/100 WBC (Bld) 24.0 % Normal 20.5-60.0 [facility] Comment on above: Performed By: #### C BC #### [facility] [address] [place] [address] Dr. Patrica Nathan MANUAL DIFF REQ NO Normal [facility] Comment on above: Performed By: #### C BC #### [facility] [address] [place] [address] Dr. Patrica Nathan MCH (RBC) [Entitic mass] 29.4 pg Normal 25.9-34.0 [facility] Comment on above: Performed By: #### C BC #### [facility] [address] [place] [address] Dr. Patrica Nathan MCHC (RBC) [Mass/Vol] 33.0 g/dL Normal 29.9-35.2 [facility] Comment on above: Performed By: #### C BC #### [facility] [address] [place] [address] Dr. Patrica Nathan MCV (RBC) [Entitic vol] 89.3 fL Normal 80.0-94.0 [facility] Comment on above: Performed By: #### C BC #### [facility] [address] [place] [address] Dr. Patrica Nathan MONO # 0.6 103/ul Normal 0.3-0.8 [facility] Comment on above: Performed By: #### C BC #### [facility] [address] [place] [address] Dr. Patrica Nathan Monocytes/100 WBC (Bld) 10.8 % Normal 1.7-12.0 [facility] Comment on above: Performed By: #### C BC #### [facility] [address] [place] [address] Dr. Patrica Nathan NEUT # 3.7 103/ul Normal 1.4-6.5 [facility] Comment on above: Performed By: #### C BC #### [facility] [address] [place] [address] Dr. Patrica Nathan Neutrophils/100 WBC (Bld) 62.3 % Normal 43.0-75.0 [facility] Comment on above: Performed By: #### C BC #### [facility] [address] [place] [address] Dr. Patrica Nathan Platelet mean volume (Bld) [Entitic vol] 9.7 fL Normal 9.5-13.5 [facility] Comment on above: Performed By: #### C BC #### [facility] [address] [place] [address] Dr. Patrica Nathan PLT 192 103/ul Normal 150-450 [facility] Comment on above: Performed By: #### C BC #### [facility] [address] [place] [address] Dr. Patrica Nathan RBC 5.13 106/ul Normal 4.70-6.10 [facility] Comment on above: Performed By: #### C BC #### [facility] [address] [place] [address] Dr. Patrica Nathan WBC 6.0 103/ul Normal 4.0-11.0 [facility] Comment on above: Performed By: #### C BC #### [facility] [address] [place] [address] CHEST WO CONon [...] EVGENY MCCLAIN Date: 2022-07-01 07:16 Normal [facility] PROF 14(COMP METB)on 022 Albumin [Mass/Vol] 4.0 g/dL Normal 3.4-5.0 [facility] Comment on above: Performed By: #### C JV HSTROPN #### [facility] [address] [place] [address] Dr. Patrica Nathan Albumin/Globulin [Mass ratio] 1.2 {ratio} Normal [facility] Comment on above: Performed By: #### C JV HSTROPN #### [facility] [address] [place] [address] Dr. Patrica Nathan ALP [Catalytic activity/Vol] 80 U/L Normal 46-116 [facility] Comment on above: Performed By: #### C JV HSTROPN #### [facility] [address] [address] [address] Patrica Nathan ALT [Catalytic activity/Vol] 30 U/L Normal 16-63 [facility] Comment on above: Performed By: #### C JV HSTROPN #### [facility] [address] [address] [address] Patrica Nathan Anion gap [Moles/Vol] 8.5 mmol/L Normal [facility] Comment on above: Performed By: #### C JV HSTROPN #### [facility] [address] [place] [address] Dr. Patrica Nathan AST [Catalytic activity/Vol] 26 U/L Normal 15-37 [facility] Comment on above: Performed By: #### C MP, HSTROPN #### [facility] [address] [place] [address] Dr. Patrica Nathan Bilirubin [Mass/Vol] 1.4 mg/dL Critically high 0.2-1.0 [facility] Comment on above: Performed By: #### C MP, HSTROPN #### [facility] [address] [place] [address] Dr. Patrica Nathan Calcium [Mass/Vol] 9.8 mg/dL Normal 8.5-10.1 [facility] Comment on above: Performed By: #### C MP, HSTROPN #### [facility] [address] [place] [address] Dr. Patrica Nathan Chloride [Moles/Vol] 104 mmol/L Normal 98-107 [facility] Comment on above: Performed By: #### C MP, HSTROPN #### [facility] [address] [place] [address] Dr. Patrica Nathan CO2 [Moles/Vol] 30.8 mmol/L Normal 21.0-32.0 [facility] Comment on above: Performed By: #### C MP, HSTROPN #### [facility] [address] [place] [address] Dr. Patrica Nathan Creatinine [Mass/Vol] 0.97 mg/dL Normal 0.70-1.30 [facility] Comment on above: Performed By: #### C MP, HSTROPN #### [facility] [address] [place] [address] Dr. Patrica Nathan EGFR-AF MICRONESIAN >60 Normal >=60 [facility] Comment on above: Performed By: #### C MP, HSTROPN #### [facility] [address] [place] [address] Dr. Patrica Nathan EGFR-NON AF MICRONESIAN >60 Normal >=60 [facility] Comment on above: Performed By: #### C MP, HSTROPN #### [facility] [address] [place] [address] Dr. Patrica Nathan Globulin (S) [Mass/Vol] 3.4 g/dL Normal [facility] Comment on above: Performed By: #### C MP, HSTROPN #### [facility] [address] [place] [address] Dr. Patrica Nathan Glucose [Mass/Vol] 110 mg/dL Critically high 74-106 [facility] Comment on above: Performed By: #### C MP, HSTROPN #### [facility] [address] [place] [address] Dr. Patrica Nathan Potassium [Moles/Vol] 4.3 mmol/L Normal 3.5-5.1 [facility] Comment on above: Performed By: #### C MP, HSTROPN #### [facility] [address] [place] [address] Dr. Patrica Nathan Protein [Mass/Vol] 7.4 g/dL Normal 6.4-8.2 [facility] Comment on above: Performed By: #### C MP, HSTROPN #### [facility] [address] [place] [address] Dr. Patrica Nathan Sodium [Moles/Vol] 139 mmol/L Normal 136-145 [facility] Comment on above: Performed By: #### C MP, HSTROPN #### [facility] [address] [place] [address] Dr. Patrica Nathan Urea nitrogen [Mass/Vol] 15.0 mg/dL Normal 7.0-18.0 [facility] Comment on above: Performed By: #### C MP, HSTROPN #### [facility] [address] [place] [address] Dr. Patrica Nathan Urea nitrogen/Creatinine [Mass ratio] 15.5 mg/mg Normal [facility] Comment on above: Performed By: #### C MP, HSTROPN #### [facility] [address] [place] [address] Dr. Patrica Nathan PROTIMEon 07-01-2022 INR Coag (PPP) [Relative time] 0.95 {INR} Normal [facility] Comment on above: Performed By: #### P T, PTT #### [facility] [address] [place] [address] Dr. Patrica Nathan INR GUIDELINES SEE BELOW Normal [facility] Comment on above: Result Comment: ODALIS RED INR: 2.0 - 3.0 CONDITIONS NOT LISTED BELOW 2.5 - 3.5 FOR PROSTHETIC HEART VALVE REPLACEMENT 2.5 - 3.5 RECURRENT THROMBOSIS Performed By: #### P T, PTT #### [facility] [address] [address] [address] Patrica Nathan PT Coag (PPP) [Time] 10.3 s Normal 9.0-11.6 [facility] Comment on above: Performed By: #### P T, PTT #### [facility] [address] [place] [address] Dr. Patrica Nathan PTTon 07-01-2022 aPTT Coag (Bld) [Time] 27.1 s Normal 22.3-36.2 [facility] Comment on above: Performed By: #### C MP, HSTROPN #### [facility] [address] [place] [address] Dr. Patrica Nathan XR CHEST 1 Von [...] ANGELY REYNOLDS Date: 2022-07-01 06:33 Normal [facility] CT CHEST WO CONon 06-29-2022 [...] BERHANE HERNANDEZ Date: 2022-06-29 16:01 Normal [facility] XR RIBS RT PA Estella [...] pneumothorax is suggested. Electronically authenticated by: FABRICE WETS Date: 2022-06-29 15:08 Normal [facility] CBC AUTO DIFFon 05-02-2022 BASO # 0.1 103/ul Normal 0.0-0.1 [facility] Comment on above: Performed By: #### C BC #### [facility] [address] [address] [address] Patrica Nathan Basophils/100 WBC (Bld) 0.8 % Normal 0.2-2.0 [facility] Comment on above: Performed By: #### C BC #### [facility] [address] [address] [address] Patrica Nathan EO # 0.1 103/ul Normal 0.0-0.7 [facility] Comment on above: Performed By: #### C BC #### [facility] [address] [address] [address] Patrica Nathan Eosinophils/100 WBC (Bld) 1.7 % Normal 0.9-7.0 [facility] Comment on above: Performed By: #### C BC #### [facility] [address] [address] [address] Patrica Nathan Erythrocyte distribution width (RBC) [Ratio] 14.5 % Normal 11.0-15.0 [facility] Comment on above: Performed By: #### C BC #### [facility] [address] [address] [address] Patrica Nathan Hematocrit (Bld) [Volume fraction] 45.6 % Normal 42.0-54.0 [facility] Comment on above: Performed By: #### C BC #### [facility] [address] [address] [address] Patrica Nathan Hemoglobin (Bld) [Mass/Vol] 15.3 g/dL Normal 14.0-18.0 [facility] Comment on above: Performed By: #### C BC #### [facility] [address] [address] [address] Patrica Nathan IG # 0.02 10e3/ul Normal 0.00-0.03 [facility] Comment on above: Performed By: #### C BC #### [facility] [address] [place] [address] Dr. Patrica Nathan IG % 0.3 % Normal 0.0-0.5 [facility] Comment on above: Performed By: #### C BC #### [facility] [address] [place] [address] Dr. Patrica Nathan LYMPH # 1.6 103/ul Normal 1.2-3.8 [facility] Comment on above: Performed By: #### C BC #### [facility] [address] [place] [address] Dr. Patrica Nathan Lymphocytes/100 WBC (Bld) 27.0 % Normal 20.5-60.0 [facility] Comment on above: Performed By: #### C BC #### [facility] [address] [place] [address] Dr. Patrica Nathan MANUAL DIFF REQ NO Normal [facility] Comment on above: Performed By: #### C BC #### [facility] [address] [place] [address] Dr. Patrica Nathan MCH (RBC) [Entitic mass] 29.9 pg Normal 25.9-34.0 [facility] Comment on above: Performed By: #### C BC #### [facility] [address] [place] [address] Dr. Patrica Nathan MCHC (RBC) [Mass/Vol] 33.6 g/dL Normal 29.9-35.2 [facility] Comment on above: Performed By: #### C BC #### [facility] [address] [place] [address] Dr. Patrica Nathan MCV (RBC) [Entitic vol] 89.1 fL Normal 80.0-94.0 [facility] Comment on above: Performed By: #### C BC #### [facility] [address] [place] [address] Dr. Patrica Nathan MONO # 0.6 103/ul Normal 0.3-0.8 [facility] Comment on above: Performed By: #### C BC #### [facility] [address] [place] [address] Dr. Patrica Nathan Monocytes/100 WBC (Bld) 9.8 % Normal 1.7-12.0 [facility] Comment on above: Performed By: #### C BC #### [facility] [address] [place] [address] Dr. Patrica Nathan NEUT # 3.6 103/ul Normal 1.4-6.5 [facility] Comment on above: Performed By: #### C BC #### [facility] [address] [place] [address] Dr. Patrica Nathan Neutrophils/100 WBC (Bld) 60.4 % Normal 43.0-75.0 [facility] Comment on above: Performed By: #### C BC #### [facility] [address] [place] [address] Dr. Patrica Nathan Platelet mean volume (Bld) [Entitic vol] 9.3 fL Critically low 9.5-13.5 [facility] Comment on above: Performed By: #### C BC #### [facility] [address] [place] [address] Dr. Patrica Nathan PLT 183 103/ul Normal 150-450 [facility] Comment on above: Performed By: #### C BC #### [facility] [address] [place] [address] Dr. Patrica Nathan RBC 5.12 106/ul Normal 4.70-6.10 [facility] Comment on above: Performed By: #### C BC #### [facility] [address] [place] [address] Dr. Patrica Nathan WBC 6.0 103/ul Normal 4.0-11.0 [facility] Comment on above: Performed By: #### C BC #### [facility] [address] [place] [address] ABD/PELV WO W [...] EVGENY MCCLAIN Date: 2022-05-02 10:56 Normal [facility] PROF 14(COMP METB)on 022 Albumin [Mass/Vol] 4.1 g/dL Normal 3.4-5.0 [facility] Comment on above: Performed By: #### C NATAN CARIASN #### [facility] [address] [address] [address] Patrica Nathan Albumin/Globulin [Mass ratio] 1.4 {ratio} Normal [facility] Comment on above: Performed By: #### C NATAN CARIASN #### [facility] [address] [address] [address] Patrica Nathan ALP [Catalytic activity/Vol] 71 U/L Normal 46-116 [facility] Comment on above: Performed By: #### C NATAN CARIASN #### [facility] [address] [address] [address] Patrica Nathan ALT [Catalytic activity/Vol] 48 U/L Normal 16-63 [facility] Comment on above: Performed By: #### C MP, HSTROPN #### [facility] [address] [address] [address] Patrica Nathan Anion gap [Moles/Vol] 8.1 mmol/L Normal [facility] Comment on above: Performed By: #### C MP, HSTROPN #### [facility] [address] [address] [address] Patrica Nathan AST [Catalytic activity/Vol] 31 U/L Normal 15-37 [facility] Comment on above: Performed By: #### C MP, HSTROPN #### [facility] [address] [place] [address] Dr. Patrica Nathan Bilirubin [Mass/Vol] 1.6 mg/dL Critically high 0.2-1.0 [facility] Comment on above: Performed By: #### C MP, HSTROPN #### [facility] [address] [address] [address] Patrica Nathan Calcium [Mass/Vol] 9.4 mg/dL Normal 8.5-10.1 [facility] Comment on above: Performed By: #### C MP, HSTROPN #### [facility] [address] [place] [address] Dr. Patrica Nathan Chloride [Moles/Vol] 105 mmol/L Normal 98-107 [facility] Comment on above: Performed By: #### C MP, HSTROPN #### [facility] [address] [place] [address] Dr. Patrica Nathan CO2 [Moles/Vol] 29.0 mmol/L Normal 21.0-32.0 [facility] Comment on above: Performed By: #### C MP, HSTROPN #### [facility] [address] [address] [address] Patrica Nathan Creatinine [Mass/Vol] 1.01 mg/dL Normal 0.70-1.30 [facility] Comment on above: Performed By: #### C MP, HSTROPN #### [facility] [address] [address] [address] Patrica Nathan EGFR-AF MICRONESIAN >60 Normal >=60 [facility] Comment on above: Performed By: #### C MP, HSTROPN #### [facility] [address] [address] [address] Patrica Nathan EGFR-NON AF MICRONESIAN >60 Normal >=60 [facility] Comment on above: Performed By: #### C MP, HSTROPN #### [facility] [address] [address] [address] Patrica Nathan Globulin (S) [Mass/Vol] 2.9 g/dL Normal [facility] Comment on above: Performed By: #### C MP, HSTROPN #### [facility] [address] [address] [address] Patrica Nathan Glucose [Mass/Vol] 106 mg/dL Normal 74-106 [facility] Comment on above: Performed By: #### C MP, HSTROPN #### [facility] [address] [address] [address] Patrica Nathan Potassium [Moles/Vol] 4.1 mmol/L Normal 3.5-5.1 [facility] Comment on above: Performed By: #### C MP, HSTROPN #### [facility] [address] [address] [address] Patrica Nathan Protein [Mass/Vol] 7.0 g/dL Normal 6.4-8.2 [facility] Comment on above: Performed By: #### C MP, HSTROPN #### [facility] [address] [address] [address] Patrica Nathan Sodium [Moles/Vol] 138 mmol/L Normal 136-145 [facility] Comment on above: Performed By: #### C MP, HSTROPN #### [facility] [address] [address] [address] Patrica Nathan Urea nitrogen [Mass/Vol] 18.0 mg/dL Normal 7.0-18.0 [facility] Comment on above: Performed By: #### C MP, HSTROPN #### [facility] [address] [place] [address] Dr. Patrica Nathan Urea nitrogen/Creatinine [Mass ratio] 17.8 mg/mg Normal [facility] Comment on above: Performed By: #### C JV HSTROPN #### [facility] [address] [place] [id number] Dr. Patrica Nathan TSHon 05-02-2022 TSH 2.409 uIU/mL Normal 0.358-3.74 0 [facility] Comment on above: Performed By: #### T SH #### [facility] [address] [place] [address] Dr. Patrica Nathan XR CHEST 2 Von [...] EVGENY MCCLAIN Date: 2022-05-02 07:44 Normal [facility] Covid-19 PCR (CVDTBH)on 01-16 SARS-CoV-2 (COVID-19) RNA MARIANNE+probe Ql (Unsp spec) Not detected Normal NOT DETECTED [facility] Comment on above: Result Comment: This test is not yet approved or cleared by the [place] FDA. When there are no FDA-approved or cleared tests available, and other criteria are met, FDA can make tests available under an emergency access mechanism called an Emergency Use Authorization (EUA). The EUA for this test is supported by the [employer] of Health and Human Service's (HHS's) declaration [...] consistent with SARS-CoV-2. Performed By: #### [facility] #### [facility] [address] [place] [address] Dr. Patrica Nathan Vital Signs Date Time Vital Sign Value Performing Clinician Facility 05-05-2025 08:34-0400 Body height 187.96 cm Cisco Ball DO Work Phone: [facility] 05-05-2025 08:34-0400 Body mass index (BMI) [Ratio] 22.6 kg/m2 Cisco Ball DO Work Phone: [facility] 05-05-2025 08:34-0400 Body weight 79.94 kg Cisco Ball DO Work Phone: [facility] 05-05-2025 08:34-0400 Diastolic blood pressure 65 mm[Hg] Cisco Ball DO Work Phone: [facility] 05-05-2025 08:34-0400 Heart rate 62 /min Cisco Ball DO Work Phone: [facility] 05-05-2025 08:34-0400 Respiratory rate 12 /min Cisco Ball DO Work Phone: [facility] 05-05-2025 08:34-0400 Systolic blood pressure 130 mm[Hg] Cisco Ball DO Work Phone: [facility] 02-14-2025 10:05-0400 Body height 187.96 cm Cisco Ball DO Work Phone: [facility] 02-14-2025 10:05-0400 Body mass index (BMI) [Ratio] 23 kg/m2 Cisco Ball DO Work Phone: [facility] 02-14-2025 10:05-0400 Body weight 81.41 kg Cisco Ball DO Work Phone: [facility] 02-14-2025 10:05-0400 Diastolic blood pressure 75 mm[Hg] Cisco Ball DO Work Phone: [facility] 02-14-2025 10:05-0400 Heart rate 57 /min Cisco Ball DO Work Phone: [facility] 02-14-2025 10:05-0400 Respiratory rate 12 /min Cisco Ball DO Work Phone: [facility] 02-14-2025 10:05-0400 Systolic blood pressure 140 mm[Hg] Cisco Ball DO Work Phone: [facility] 01-26-2025 08:40-0400 Body height 187.96 cm [facility] 01-26-2025 08:40-0400 Body mass index (BMI) [Ratio] 22.8 kg/m2 [facility] 01-26-2025 08:40-0400 Body weight 80.9 kg [facility] 01-26-2025 08:40-0400 Diastolic blood pressure 73 mm[Hg] [facility] 01-26-2025 08:40-0400 Heart rate 62 /min [facility] 01-26-2025 08:40-0400 Respiratory rate 12 /min [facility] 01-26-2025 08:40-0400 Systolic blood pressure 126 mm[Hg] [facility] 01-03-2025 14:37-0400 Body height 187.96 cm [facility] 01-03-2025 14:37-0400 Body mass index (BMI) [Ratio] 23 kg/m2 [facility] 01-03-2025 14:37-0400 Body weight 81.41 kg [facility] 01-03-2025 14:37-0400 Diastolic blood pressure 64 mm[Hg] [facility] 01-03-2025 14:37-0400 Heart rate 78 /min [facility] 01-03-2025 14:37-0400 Respiratory rate 12 /min [facility] 01-03-2025 14:37-0400 Systolic blood pressure 158 mm[Hg] [facility] 12-28-2024 08:34-0400 Body height 187.96 cm [facility] 12-28-2024 08:34-0400 Body mass index (BMI) [Ratio] 23 kg/m2 [facility] 12-28-2024 08:34-0400 Body weight 81.36 kg [facility] 12-28-2024 08:34-0400 Diastolic blood pressure 62 mm[Hg] [facility] 12-28-2024 08:34-0400 Heart rate 64 /min [facility] 12-28-2024 08:34-0400 Respiratory rate 12 /min [facility] 12-28-2024 08:34-0400 Systolic blood pressure 111 mm[Hg] [facility] 12-12-2024 14:49-0400 Body height 187.96 cm [facility] 12-12-2024 14:49-0400 Body mass index (BMI) [Ratio] 23 kg/m2 [facility] 12-12-2024 14:49-0400 Body weight 81.24 kg [facility] 12-12-2024 14:49-0400 Diastolic blood pressure 72 mm[Hg] [facility] 12-12-2024 14:49-0400 Heart rate 79 /min [facility] 12-12-2024 14:49-0400 Respiratory rate 12 /min [facility] 12-12-2024 14:49-0400 Systolic blood pressure 153 mm[Hg] [facility] 11-15-2024 14:58-0400 Body height 187.96 cm [facility] 11-15-2024 14:58-0400 Body mass index (BMI) [Ratio] 23.5 kg/m2 [facility] 11-15-2024 14:58-0400 Body weight 83 kg [facility] 11-15-2024 14:58-0400 Diastolic blood pressure 68 mm[Hg] [facility] 11-15-2024 14:58-0400 Heart rate 69 /min [facility] 11-15-2024 14:58-0400 Respiratory rate 12 /min [facility] 11-15-2024 14:58-0400 Systolic blood pressure 150 mm[Hg] [facility] 10-28-2024 12:20-0400 Body height 187.96 cm [facility] 10-28-2024 12:20-0400 Body mass index (BMI) [Ratio] 23.1 kg/m2 [facility] 10-28-2024 12:20-0400 Body weight 81.87 kg [facility] 10-28-2024 12:20-0400 Diastolic blood pressure 81 mm[Hg] [facility] 10-28-2024 12:20-0400 Heart rate 59 /min [facility] 10-28-2024 12:20-0400 Respiratory rate 12 /min [facility] 10-28-2024 12:20-0400 Systolic blood pressure 147 mm[Hg] [facility] 09-21-2024 09:47-0500 Body height 187.96 cm [facility] 09-21-2024 09:47-0500 Body mass index (BMI) [Ratio] 23.3 kg/m2 [facility] 09-21-2024 09:47-0500 Body weight 82.55 kg [facility] 09-21-2024 09:47-0500 Diastolic blood pressure 71 mm[Hg] [facility] 09-21-2024 09:47-0500 Heart rate 61 /min [facility] 09-21-2024 09:47-0500 Respiratory rate 12 /min [facility] 09-21-2024 09:47-0500 Systolic blood pressure 124 mm[Hg] [facility] 09-14-2024 08:28-0500 Body height 187.96 cm [facility] 09-14-2024 08:28-0500 Body mass index (BMI) [Ratio] 23.2 kg/m2 [facility] 09-14-2024 08:28-0500 Body weight 82.15 kg [facility] 09-14-2024 08:28-0500 Diastolic blood pressure 61 mm[Hg] [facility] 09-14-2024 08:28-0500 Heart rate 55 /min [facility] 09-14-2024 08:28-0500 Respiratory rate 12 /min [facility] 09-14-2024 08:28-0500 Systolic blood pressure 106 mm[Hg] [facility] 09-07-2024 09:24-0500 Body height 187.96 cm [facility] 09-07-2024 09:24-0500 Body mass index (BMI) [Ratio] 23.1 kg/m2 [facility] 09-07-2024 09:24-0500 Body weight 81.87 kg [facility] 09-07-2024 09:24-0500 Diastolic blood pressure 65 mm[Hg] [facility] 09-07-2024 09:24-0500 Heart rate 64 /min [facility] 09-07-2024 09:24-0500 Respiratory rate 12 /min [facility] 09-07-2024 09:24-0500 Systolic blood pressure 127 mm[Hg] [facility] 09-01-2024 08:53-0500 Body height 187.96 cm [facility] 09-01-2024 08:53-0500 Body mass index (BMI) [Ratio] 23.1 kg/m2 [facility] 09-01-2024 08:53-0500 Body weight 81.87 kg [facility] 09-01-2024 08:53-0500 Diastolic blood pressure 57 mm[Hg] [facility] 09-01-2024 08:53-0500 Heart rate 69 /min [facility] 09-01-2024 08:53-0500 Respiratory rate 12 /min [facility] 09-01-2024 08:53-0500 Systolic blood pressure 116 mm[Hg] [facility] 07-11-2024 11:39-0500 Body height 187.96 cm [facility] 07-11-2024 11:39-0500 Body mass index (BMI) [Ratio] 23.3 kg/m2 [facility] 07-11-2024 11:39-0500 Body weight 82.27 kg [facility] 07-11-2024 11:39-0500 Diastolic blood pressure 72 mm[Hg] [facility] 07-11-2024 11:39-0500 Heart rate 68 /min [facility] 07-11-2024 11:39-0500 Respiratory rate 12 /min [facility] 07-11-2024 11:39-0500 Systolic blood pressure 144 mm[Hg] [facility] 05-04-2024 09:12-0400 Body height 187.96 cm [facility] 05-04-2024 09:12-0400 Body mass index (BMI) [Ratio] 23.1 kg/m2 [facility] 05-04-2024 09:12-0400 Body weight 81.76 kg [facility] 05-04-2024 09:12-0400 Diastolic blood pressure 66 mm[Hg] [facility] 05-04-2024 09:12-0400 Heart rate 56 /min [facility] 05-04-2024 09:12-0400 Respiratory rate 12 /min [facility] 05-04-2024 09:12-0400 Systolic blood pressure 132 mm[Hg] [facility] 03-19-2024 09:03-0400 Body height 187.96 cm [facility] 03-19-2024 09:03-0400 Body mass index (BMI) [Ratio] 23.1 kg/m2 [facility] 03-19-2024 09:03-0400 Body temperature 99.8 [degF] [facility] 03-19-2024 09:03-0400 Body weight 81.76 kg [facility] 03-19-2024 09:03-0400 Diastolic blood pressure 63 mm[Hg] [facility] 03-19-2024 09:03-0400 Heart rate 73 /min [facility] 03-19-2024 09:03-0400 SaO2% (BldA) [Mass fraction] 97 % [facility] 03-19-2024 09:03-0400 Systolic blood pressure 118 mm[Hg] [facility] 03-14-2024 10:10-0400 Body height 187.96 cm [facility] 03-14-2024 10:10-0400 Body mass index (BMI) [Ratio] 23.4 kg/m2 [facility] 03-14-2024 10:10-0400 Body weight 82.78 kg [facility] 03-14-2024 10:10-0400 Diastolic blood pressure 80 mm[Hg] [facility] 03-14-2024 10:10-0400 Heart rate 58 /min [facility] 03-14-2024 10:10-0400 Respiratory rate 12 /min [facility] 03-14-2024 10:10-0400 Systolic blood pressure 135 mm[Hg] [facility] 01-28-2024 09:07-0400 Body height 187.96 cm [facility] 01-28-2024 09:07-0400 Body mass index (BMI) [Ratio] 23.4 kg/m2 [facility] 01-28-2024 09:07-0400 Body weight 82.72 kg [facility] 01-28-2024 09:07-0400 Diastolic blood pressure 76 mm[Hg] [facility] 01-28-2024 09:07-0400 Heart rate 58 /min [facility] 01-28-2024 09:07-0400 Respiratory rate 12 /min [facility] 01-28-2024 09:07-0400 Systolic blood pressure 138 mm[Hg] [facility] 11-27-2023 08:33-0400 Body height 187.96 cm [facility] 11-27-2023 08:33-0400 Body mass index (BMI) [Ratio] 23.1 kg/m2 [facility] 11-27-2023 08:33-0400 Body weight 81.7 kg [facility] 11-27-2023 08:33-0400 Diastolic blood pressure 61 mm[Hg] [facility] 11-27-2023 08:33-0400 Heart rate 63 /min [facility] 11-27-2023 08:33-0400 Respiratory rate 12 /min [facility] 11-27-2023 08:33-0400 Systolic blood pressure 114 mm[Hg] [facility] 11-06-2023 15:24-0400 Body height 187.96 cm [facility] 11-06-2023 15:24-0400 Body mass index (BMI) [Ratio] 23.1 kg/m2 [facility] 11-06-2023 15:24-0400 Body weight 81.64 kg [facility] 11-06-2023 15:24-0400 Diastolic blood pressure 64 mm[Hg] [facility] 11-06-2023 15:24-0400 Heart rate 65 /min [facility] 11-06-2023 15:24-0400 Respiratory rate 12 /min [facility] 11-06-2023 15:24-0400 Systolic blood pressure 134 mm[Hg] [facility] 10-28-2023 11:01-0400 Body height 187.96 cm [facility] 10-28-2023 11:01-0400 Body mass index (BMI) [Ratio] 23.2 kg/m2 [facility] 10-28-2023 11:01-0400 Body weight 82.21 kg [facility] 10-28-2023 11:01-0400 Diastolic blood pressure 77 mm[Hg] [facility] 10-28-2023 11:01-0400 Heart rate 59 /min [facility] 10-28-2023 11:01-0400 Respiratory rate 12 /min [facility] 10-28-2023 11:01-0400 Systolic blood pressure 144 mm[Hg] [facility] 09-15-2023 16:00-0500 Body height 187.96 cm Cicso Ball Other [facility] 09-15-2023 16:00-0500 Body mass index (BMI) [Ratio] 23.75 kg/m2 Cisco Ball Other [employer] Other 09-15-2023 16:00-0500 Body weight 83.92 kg Cisco Ball Other [facility] Other 09-15-2023 16:00-0500 Body weight 83.91 kg [facility] 09-15-2023 16:00-0500 Diastolic blood pressure 73 mm[Hg] Cisco Ball Other [facility] 09-15-2023 16:00-0500 Respiratory rate 12 /min Cisco Ball Other [facility] Other 09-15-2023 16:00-0500 Systolic blood pressure 158 mm[Hg] Cisco Ball Other [facility] 08-28-2023 10:00-0500 Body height 187.96 cm Cisco Ball Other [facility] 08-28-2023 10:00-0500 Body mass index (BMI) [Ratio] 23.42 kg/m2 Cisco Ball Other [facility] Other 08-28-2023 10:00-0500 Body weight 82.74 kg Cisco Ball Other [facility] Other 08-28-2023 10:00-0500 Body weight 82.73 kg [facility] 08-28-2023 10:00-0500 Diastolic blood pressure 66 mm[Hg] Cisco Ball Other [facility] 08-28-2023 10:00-0500 Respiratory rate 12 /min Cisco Ball Other [facility] Other 08-28-2023 10:00-0500 Systolic blood pressure 117 mm[Hg] Cisco Ball Other [facility] 07-28-2023 13:13-0500 Blood Pressure Location Angely G[facility] 07-28-2023 13:13-0500 Diastolic blood pressure 72 mm[Hg] Angely GAGE [facility] 07-28-2023 13:13-0500 Heart rate 72 /min Angely NILL [facility] 07-28-2023 13:13-0500 Respiratory rate 16 /min Angely NILL [facility] 07-28-2023 13:13-0500 Systolic blood pressure 118 mm[Hg] Angely NILL [facility] 07-01-2023 10:15-0500 Body height 187.96 cm Cisco Ball Other [facility] Other 07-01-2023 10:15-0500 Body mass index (BMI) [Ratio] 23.13 kg/m2 Cisco Ball Other [facility] Other 07-01-2023 10:15-0500 Body weight 81.74 kg Cisco Ball Other [facility] Other 07-01-2023 10:15-0500 Diastolic blood pressure 70 mm[Hg] Cisco Ball Other [facility] Other 07-01-2023 10:15-0500 Respiratory rate 12 /min Cisco Ball Other [facility] Other 07-01-2023 10:15-0500 Systolic blood pressure 135 mm[Hg] Cisco Ball Other [facility] Other 06-20-2023 02:33-0400 Diastolic blood pressure 74 mm[Hg] DO Cisco Ball Work Phone: [facility] 06-20-2023 02:33-0400 Heart rate 78 /min DO Cisco Ball Work Phone: [facility] 06-20-2023 02:33-0400 Respiratory rate 16 /min DO Cisoc Ball Work Phone: [facility] 06-20-2023 02:33-0400 SaO2% (BldA) [Mass fraction] 96 % DO Cisco Ball Work Phone: [facility] 06-20-2023 02:33-0400 Systolic blood pressure 158 mm[Hg] DO Cisco Ball Work Phone: [facility] 06-19-2023 20:47-0400 Body height 187.96 cm DO Cisco Ball Work Phone: [facility] 06-19-2023 20:47-0400 Body temperature 97.9 [degF] DO Cisco Ball Work Phone: [facility] 06-19-2023 20:47-0400 Body weight 80.3 kg DO Cisco Ball Work Phone: [facility] 06-17-2023 15:45-0400 Body height 187.96 cm Cisco Ball Other [facility] [employer] Other 06-17-2023 15:45-0400 Body mass index (BMI) [Ratio] 23.65 kg/m2 Cisco Ball Other [facility] Other 06-17-2023 15:45-0400 Body temperature 97.3 [degF] Cisco Ball Other [facility] Other 06-17-2023 15:45-0400 Body weight 83.55 kg Cisco Ball Other [facility] Other 06-17-2023 15:45-0400 Diastolic blood pressure 57 mm[Hg] Cisco Ball Other [facility] Other 06-17-2023 15:45-0400 Respiratory rate 12 /min Cisco Ball Other [facility] Other 06-17-2023 15:45-0400 Systolic blood pressure 128 mm[Hg] Cisco Ball Other [facility] Other 05-20-2023 08:45-0400 Body height 187.96 cm Cisco Ball Other [facility] Other 05-20-2023 08:45-0400 Body mass index (BMI) [Ratio] 23.62 kg/m2 Cisco Ball Other [facility] Other 05-20-2023 08:45-0400 Body weight 83.46 kg Cisco Ball Other [facility] Other 05-20-2023 08:45-0400 Diastolic blood pressure 82 mm[Hg] Cisco Ball Other [facility] Other 05-20-2023 08:45-0400 Respiratory rate 12 /min Cisco Ball Other [facility] Other 05-20-2023 08:45-0400 Systolic blood pressure 121 mm[Hg] Cisco Ball Other [facility] Other 04-21-2023 11:30-0400 Body height 187.96 cm Cisco Ball Other [facility] Other 04-21-2023 11:30-0400 Body mass index (BMI) [Ratio] 23.34 kg/m2 Cisco Ball Other [facility] Other 04-21-2023 11:30-0400 Body weight 82.46 kg Cisco Ball Other [facility] Other 04-21-2023 11:30-0400 Diastolic blood pressure 65 mm[Hg] Cisco Ball Other [facility] Other 04-21-2023 11:30-0400 Respiratory rate 12 /min Cisco Ball Other [facility] Other 04-21-2023 11:30-0400 Systolic blood pressure 165 mm[Hg] Cisco Ball Other [facility] Other 03-01-2023 08:00-0400 Diastolic blood pressure 82 mm[Hg] DO Cisco Ball Work Phone: [facility] 03-01-2023 08:00-0400 Heart rate 62 /min DO Cisco Ball Work Phone: [facility] 03-01-2023 08:00-0400 Respiratory rate 16 /min DO Cisco Ball Work Phone: [facility] 03-01-2023 08:00-0400 SaO2% (BldA) [Mass fraction] 96 % DO Cisco Ball Work Phone: [facility] 03-01-2023 08:00-0400 Systolic blood pressure 146 mm[Hg] DO Cisco Ball Work Phone: [facility] 03-01-2023 06:58-0400 Body height 187.96 cm DO Cisco Ball Work Phone: [facility] 03-01-2023 06:58-0400 Body weight 84.8 kg DO Cisco Ball Work Phone: [facility] 02-24-2023 08:30-0400 Body height 187.96 cm Cisco Ball Other [facility] Other 02-24-2023 08:30-0400 Body mass index (BMI) [Ratio] 24.21 kg/m2 Cisco Ball Other [facility] Other 02-24-2023 08:30-0400 Body weight 85.55 kg Cisco Ball Other [facility] Other 02-24-2023 08:30-0400 Diastolic blood pressure 67 mm[Hg] Cisco Ball Other [facility] Other 02-24-2023 08:30-0400 Respiratory rate 12 /min Cisco Ball Other [facility] Other 02-24-2023 08:30-0400 Systolic blood pressure 112 mm[Hg] Cisco Ball Other [facility] Other 11-21-2022 11:45-0400 Body height 187.96 cm Cisco Ball Other [facility] Other 11-21-2022 11:45-0400 Body mass index (BMI) [Ratio] 24.98 kg/m2 Cisco Ball Other [facility] Other 11-21-2022 11:45-0400 Body weight 88.27 kg Cisco Ball Other [facility] Other 11-21-2022 11:45-0400 Diastolic blood pressure 73 mm[Hg] Cisco Ball Other [facility] Other 11-21-2022 11:45-0400 Respiratory rate 12 /min Cisco Ball Other [facility] Other 11-21-2022 11:45-0400 Systolic blood pressure 147 mm[Hg] Cisco Ball Other [facility] Other 10-22-2022 08:30-0500 Body height 187.96 cm Cisco Ball Other [facility] Other 10-22-2022 08:30-0500 Body mass index (BMI) [Ratio] 24.73 kg/m2 Cisco Ball Other [facility] Other 10-22-2022 08:30-0500 Body weight 87.36 kg Cisco Ball Other [facility] Other 10-22-2022 08:30-0500 Diastolic blood pressure 64 mm[Hg] Cisco Ball Other [facility] Other 10-22-2022 08:30-0500 Respiratory rate 12 /min Cisco Ball Other [facility] Other 10-22-2022 08:30-0500 Systolic blood pressure 118 mm[Hg] Cisco Ball Other [facility] Other 10-07-2022 09:45-0500 Body height 187.96 cm Cisco Ball Other [facility] Other 10-07-2022 09:45-0500 Body mass index (BMI) [Ratio] 24.31 kg/m2 Cisco Ball Other [facility] Other 10-07-2022 09:45-0500 Body weight 85.91 kg Cisco Ball Other [facility] Other 10-07-2022 09:45-0500 Diastolic blood pressure 70 mm[Hg] Cisco Ball Other [facility] Other 10-07-2022 09:45-0500 Respiratory rate 12 /min Cisco Ball Other [facility] Other 10-07-2022 09:45-0500 Systolic blood pressure 122 mm[Hg] Cisco Ball Other [facility] Other 08-27-2022 10:48-0500 Diastolic blood pressure 82 mm[Hg] DO Cisco Ball Work Phone: [facility] 08-27-2022 10:48-0500 Heart rate 64 /min DO Cisco Ball Work Phone: [facility] 08-27-2022 10:48-0500 Respiratory rate 16 /min DO Cisco Ball Work Phone: [facility] 08-27-2022 10:48-0500 SaO2% (BldA) [Mass fraction] 96 % DO Cisco Ball Work Phone: [facility] 08-27-2022 10:48-0500 Systolic blood pressure 146 mm[Hg] DO Cisco Ball Work Phone: [facility] 08-27-2022 09:01-0500 Body height 187.96 cm DO Cisco Ball Work Phone: [facility] 08-27-2022 09:01-0500 Body temperature 97.8 [degF] DO Cisco Ball Work Phone: [facility] 08-27-2022 09:01-0500 Body weight 86.63 kg DO Cisco Mcadams Work Phone: [facility] Encounters Encounter Date Encounter Type Care Provider Facility Start: 05-05-2025 End: 05-05-2025 ambulatory Cisco Mcadams DO Work Phone: [facility] Work Phone: Start: 05-05-2025 End: 05-05-2025 Patient encounter procedure Cisco Mcadams DO -[facility] Work Phone: Start: 03-31-2025 End: 03-31-2025 Refill Miguel Angel Jacobsen DO Work Phone: [facility] Comment on above: 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, moderate stage Start: 02-28-2025 Non-patient / Non-visit Omid Mayen DO -[facility] Work Phone: Start: 02-23-2025 End: 02-23-2025 ambulatory [facility] Start: 02-21-2025 Non-patient / Non-visit Anjelica Long MD -[facility] Work Phone: Start: 02-14-2025 End: 02-14-2025 ambulatory Cisco Mcadams DO Work Phone: [facility] Work Phone: Start: 02-14-2025 End: 02-14-2025 Patient encounter procedure Cisco Mcadams DO -[facility] Work Phone: Start: 02-13-2025 Non-patient / Non-visit Gabriella Kenney CMA -[facility] Work Phone: Start: 02-12-2025 Non-patient / Non-visit Natalie ARMENTA -[facility] Work Phone: Start: 02-08-2025 End: 02-09-2025 Refill Miguel Angel Jacobsen DO Work Phone: [facility] Comment on above: 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, moderate stage Start: 01-26-2025 End: 01-26-2025 ambulatory [facility] Work Phone: Start: 01-26-2025 End: 01-26-2025 Patient encounter procedure [facility] Work Phone: Start: 01-12-2025 End: 01-12-2025 Refill Virginie Chang COT [facility] Comment on above: 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 Work Phone: Start: 01-03-2025 End: 01-03-2025 Patient encounter procedure [facility] [facility] Work Phone: Start: 12-28-2024 End: 12-28-2024 ambulatory [facility] Work Phone: Start: 12-28-2024 End: 12-28-2024 Patient encounter procedure [facility] Work Phone: Start: 12-13-2024 End: 12-13-2024 ambulatory AB [facility] Start: 12-12-2024 End: 12-12-2024 ambulatory [facility] Work Phone: Start: 12-12-2024 End: 12-12-2024 Patient encounter procedure [facility] Work Phone: Start: 11-15-2024 End: 11-15-2024 ambulatory [facility] Work Phone: Start: 11-15-2024 End: 11-15-2024 Patient encounter procedure [facility] Work Phone: Start: 10-28-2024 End: 10-28-2024 ambulatory [facility] Work Phone: Start: 10-28-2024 End: 10-28-2024 Patient encounter procedure [facility] Work Phone: Start: 09-21-2024 End: 09-21-2024 ambulatory [facility] Work Phone: Start: 09-21-2024 End: 09-21-2024 Patient encounter procedure [facility] Work Phone: Start: 09-14-2024 End: 09-14-2024 ambulatory [facility] Work Phone: Start: 09-14-2024 End: 09-14-2024 Patient encounter procedure [facility] Work Phone: Start: 09-07-2024 End: 09-07-2024 ambulatory [facility] Work Phone: Start: 09-07-2024 End: 09-07-2024 Patient encounter procedure [facility] Work Phone: Start: 09-02-2024 Non-patient / Non-visit [facility] Work Phone: Start: 09-01-2024 End: 09-01-2024 ambulatory [facility] Work Phone: Start: 09-01-2024 End: 09-01-2024 Patient encounter procedure [facility] Work Phone: Start: 08-29-2024 Patient encounter procedure [facility] Start: 07-28-2024 End: 07-28-2024 Refill Trista Shi [facility] Work Phone: [facility] Comment on above: 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, moderate stage (CMS/HCC) Start: 07-11-2024 End: 07-11-2024 Patient encounter procedure [facility] Work Phone: Start: 07-05-2024 End: 07-05-2024 Bamboo [...] (Primary Dx) Start: 05-04-2024 End: 05-04-2024 ambulatory [facility] Work Phone: Start: 05-04-2024 End: 05-04-2024 Patient encounter procedure [facility] Work Phone: Start: 03-19-2024 End: 03-19-2024 ambulatory [facility] Work Phone: Start: 03-19-2024 End: 03-19-2024 Patient encounter procedure [facility] Work Phone: Start: 03-15-2024 Non-patient / Non-visit [facility] Work Phone: Start: 03-14-2024 End: 03-14-2024 ambulatory [facility] Work Phone: Start: 03-14-2024 End: 03-14-2024 Patient encounter procedure [facility] Work Phone: Start: 02-24-2024 End: 02-24-2024 ambulatory MIGUEL ANGEL JACOBSEN Not Available Start: 02-22-2024 End: 02-22-2024 ambulatory CHEYANNE Foy APLING Not Available Start: 01-28-2024 End: 01-28-2024 ambulatory [facility] Work Phone: Start: 01-28-2024 End: 01-28-2024 Patient encounter procedure [facility] Work Phone: Start: 01-22-2024 Non-patient / Non-visit [facility] Work Phone: Start: 11-27-2023 End: 11-27-2023 ambulatory [facility] Work Phone: Start: 11-27-2023 End: 11-27-2023 Patient encounter procedure [facility] Work Phone: Start: 11-16-2023 Non-patient / Non-visit [facility] Work Phone: Start: 11-06-2023 End: 11-06-2023 ambulatory [facility] Work Phone: Start: 11-06-2023 End: 11-06-2023 Patient encounter procedure [facility] Work Phone: Start: 10-28-2023 End: 10-28-2023 Patient encounter procedure [facility] Work Phone: Start: 10-05-2023 Non-patient / Non-visit [facility] [facility] Work Phone: Start: 09-21-2023 End: 09-21-2023 ambulatory Cisco Mcadams Other [facility] Other Start: 09-21-2023 Telephone encounter Cisco Mcadams FP [facility] Start: 09-16-2023 End: 09-16-2023 ambulatory Cisco Mcadams Other [facility] Other Start: 09-16-2023 Telephone encounter Cisco Mcadams FP [facility] [place] [facility] Start: 09-15-2023 End: 09-15-2023 ambulatory Cisco Mcadams Other [facility] Other Start: 09-15-2023 Office outpatient visit 15 minutes Cisco Mcadams [facility] Start: 09-15-2023 End: 09-15-2023 Patient encounter procedure [facility] Start: 09-02-2023 End: 09-02-2023 Patient encounter procedure Angely GAGE [facility] [place] Start: 08-30-2023 End: 08-30-2023 ambulatory Cisco Mcadams Other [facility] Other Start: 08-30-2023 Telephone encounter Cisco HANNA [facility] Start: 08-28-2023 End: 08-28-2023 ambulatory Cisco Mcadams Other [facility] Other Start: 08-28-2023 Patient encounter procedure Cisco Mcadams [facility] Start: 08-28-2023 Telephone encounter Cisco Fletcher [facility] Start: 08-28-2023 End: 08-28-2023 Patient encounter procedure [facility] Work Phone: Start: 08-26-2023 ambulatory Angely R NILL [facility] Start: 08-26-2023 End: 08-26-2023 Patient encounter procedure Angely R NILL [facility] [place] Start: 08-24-2023 End: 08-24-2023 ambulatory Cisco Mcadams Other [facility] Other Start: 08-24-2023 Telephone encounter Cisco HANNA [facility] Start: 08-23-2023 End: 08-23-2023 ambulatory Cisco Mcadams Other [facility] Other Start: 08-23-2023 Telephone encounter Cisco HANNA [facility] Start: 07-28-2023 End: 07-29-2023 ambulatory Angely R NILL Facility:[facility] Start: 07-28-2023 End: 07-28-2023 Patient encounter procedure Angely R NILL [facility] Start: 07-01-2023 End: 07-01-2023 ambulatory Cisco Mcadams Other [facility] Other Start: 07-01-2023 Transitional care manage srvc 14 day discharge Cisco Mcadams [facility] Start: 06-26-2023 ambulatory Angely NILL Facility:[facility] Start: 06-24-2023 End: 06-24-2023 ambulatory Cisco Mcadams Other [facility] Other Start: 06-24-2023 Telephone encounter Cisco Ball FP [facility] Start: 06-20-2023 End: 06-22-2023 Evaluation and management of inpatient Berhane Chambersdict Facility:[facility] Start: 06-20-2023 Evaluation and management of inpatient DO Cisco Ball Work Phone: [facility] Work Phone: Start: 06-20-2023 observation encounter DO Shaji Mcadams Work Phone: [facility] Work Phone: Start: 06-19-2023 End: 06-19-2023 ambulatory Cisco Ball Other [facility] Other Start: 06-19-2023 Telephone encounter Cisco Ball FP [facility] Start: 06-18-2023 End: 06-18-2023 ambulatory Cisco Ball Other [facility] Other Start: 06-18-2023 Telephone encounter Cisco Ball FP [facility] Start: 06-17-2023 End: 06-17-2023 ambulatory Cisco Ball Other [facility] Other Start: 06-17-2023 Office outpatient visit 15 minutes Cisco Ball [facility] Start: 06-17-2023 Telephone encounter Cisco Ball FP [facility] Start: 06-02-2023 End: 06-02-2023 ambulatory Cisco Ball Other [facility] Other Start: 06-02-2023 Telephone encounter Cisco Ball FP [facility] Start: 05-20-2023 End: 05-20-2023 ambulatory Cisco Ball Other [facility] Other Start: 05-20-2023 Office outpatient visit 25 minutes Cisco Ball [facility] Start: 05-11-2023 End: 05-11-2023 ambulatory Cisco Mcadams Other [facility] Other Start: 05-11-2023 Telephone encounter Cisco Mcadams [facility] Start: 04-27-2023 End: 04-27-2023 ambulatory Cisco Mcadams Other [facility] Other Start: 04-27-2023 Telephone encounter Cisco Mcadams [facility] Start: 04-23-2023 End: 04-23-2023 ambulatory Cisco Mcadams Other [facility] Other Start: 04-23-2023 Telephone encounter Cisco HANNA [facility] Start: 04-21-2023 End: 04-21-2023 ambulatory Cisco Mcadams Other [facility] Other Start: 04-21-2023 Office outpatient visit 25 minutes Cisco Mcadams [facility] Start: 03-16-2023 End: 03-16-2023 ambulatory Cisco Mcadams Other [facility] Other Start: 03-16-2023 Telephone encounter Cisco HANNA [facility] Start: 03-04-2023 Telephone encounter Cisco HANNA [facility] Start: 03-04-2023 End: 03-04-[address] Cisco Mcadams [facility] Other Start: 03-03-2023 End: 03-03-2023 ambulatory Cisco Mcadams Other [employer] Other Start: 03-03-2023 Telephone encounter Cisco HANNA [facility] Start: 03-01-2023 End: 03-02-[address] Cisco Mcadams Facility:[id number] Start: 03-01-2023 Evaluation and management of inpatient DO Cisco Mcadams Work Phone: [facility] [place] [facility] Work Phone: Start: 03-01-2023 observation encounter DO Shaji Mcadams Work Phone: [facility] Work Phone: Start: 02-24-2023 End: 02-24-2023 ambulatory Cisco Mcadams Other [facility] Other Start: 02-24-2023 Office outpatient visit 25 minutes Cisco Mcadams [facility] Start: 01-20-2023 End: 01-20-2023 ambulatory Cisco Mcadams Other [facility] Other Start: 01-20-2023 Telephone encounter Cisco HANNA [facility] Start: 11-21-2022 End: 11-21-2022 ambulatory Cisco Mcadams Other [facility] Other Start: 11-21-2022 Office outpatient visit 15 minutes Cisco Mcadams [facility] Start: 10-22-2022 End: 10-22-2022 ambulatory Cisco Mcadams Other [facility] Other Start: 10-22-2022 Office outpatient visit 25 minutes Cisco Mcadams [facility] Start: 10-12-2022 End: 10-12-2022 ambulatory Cisco Mcadams Facility:[facility] Start: 10-12-2022 End: 10-12-2022 ambulatory DO Cisco Mcadams Work Phone: [facility] Work Phone: Start: 10-12-2022 End: 10-12-2022 Patient encounter procedure DO Cisco Mcadams Work Phone: [facility]-Lab [facility] [place] Work Phone: Start: 10-07-2022 End: 10-07-2022 ambulatory Cisco Abbe Other [employer] Other Start: 10-07-2022 Office outpatient visit 15 minutes Cisco Mcadams [facility] Start: 09-14-2022 End: 09-14-[address] CISCO MCADAMS Facility:[facility]1 Start: 09-08-2022 End: 09-08-2022 ambulatory Imad Asaad Other [facility] Other Start: 09-08-2022 Telephone encounter Imad Asaad [facility] Start: 09-05-2022 End: 09-05-2022 ambulatory Cisco Mcadams Other [facility] Other Start: 09-05-2022 Telephone encounter Cisco [facility] Start: 09-03-2022 End: 09-03-2022 ambulatory Imad Asaad Other [facility] Other Start: 09-03-2022 Telephone encounter Imad Asaad [facility] Start: 09-01-2022 End: 09-01-2022 ambulatory Imad Asaad Other [facility] Other Start: 09-01-2022 Telephone encounter Imad Asaad [facility] [facility] Start: 08-27-2022 Telephone encounter Stalin HANNA [facility] Start: 08-27-2022 End: 08-27-2022 ambulatory Cisco Mcadams Facility:[facility] Start: 08-27-2022 End: 08-27-2022 Admission to same day surgery center DO Cisco Abbe Work Phone: [facility]-Dig[facility] Work Phone: Start: 08-27-2022 End: 08-27-2022 ambulatory DO Cisco Abbe Work Phone: [facility] Work Phone: Start: 08-22-2022 End: 08-22-2022 ambulatory Imad Asaad Other [employer] Other Start: 08-22-2022 Telephone encounter Imad Asaad [facility] [employer] [facility] Start: 08-20-2022 End: 08-20-2022 ambulatory Cisco Mcadams Other [employer] Other Start: 08-20-2022 Telephone encounter Cisco Mcadams Chance Mcadams [facility] Start: 08-19-2022 End: 08-19-2022 ambulatory Cisco Mcadams Other [employer] Other Start: 08-19-2022 Telephone encounter Cisco HANNA Abbe [facility] Start: 07-28-2022 End: 07-29-[address] CISCO [...] Detail Performing Clinician Start: 01-10-2025 End: 01-10-2025 [facility]&eval comprhnsv estab pt 1/> Blepharitis of upper and lower eyelids of both eyes, unspecified type Miguel Angel Jacobsen DO Work Phone: Comment on above: Blepharitis of upper and lower eyelids o f both eyes, unspecified type (Primary Dx); Diplopia; Dry eyes; PCO (posterior capsular opacification), bilateral; Primary open angle glaucoma (POAG) of both eyes, moderate stage Start: 07-05-2024 Visual field xm uni/bi w/interp extended exam Miguel Angel Jacobsen DO Work Phone: Start: 07-05-2024 End: 07-05-2024 [facility] xm&eval comprhnsv estab pt 1/> Primary open [...] salazar Work Phone: Start: 08-27-2022 Colonoscopy Angely TOO Start: 08-27-2022 Esophagogastroduodenoscopy Angely MCCORMICKSalvador Start: 07-28-2022 PSA screening MIGUEL ANGEL JACOBSEN Comment on above: Performed By: #### PSASC #### [facility] [address] [place] [address] Dr. Patrica Nathan Cardiac catheterization Renato trotter ANNYL History of operative procedure on shoulder Angely TOO Comment on above: x3 History of repair of inguinal hernia H/O bilateral inguinal hernia repair History of repair of inguinal hernia H/O bilateral inguinal hernia repair Cisco Mcadams DO Repair of right inguinal hernia Angely GAGE Plan of Treatment Date Care Activity Detail Author Start: 07-11-2025 End: 07-11-2025 Patient encounter procedure [facility] Start: 04-17-2025 Influenza vaccination Influenza Vacc ine (#1) [facility] Start: 01-10-2025 End: 01-10-2025 Patient encounter procedure 01/10/2025 9:00 AM EDT Office Visit [facility] [address] [place] [address] Miguel Angel Jacobsen, [address] [place] [address] Arrived [facility] Comment on above: Arrived Start: 01-03-2025 End: 01-03-2025 Patient encounter procedure 01/03/2025 9:45 AM EDT Office Visit [facility] [address] [place] [address] Miguel Angel Jacobsen, DO [address] [place] [address] [facility] Start: 07-05-2024 End: 07-05-2024 Patient encounter procedure [facility] Comment on above: Arrived Start: 04-17-2024 Influenza vaccination Influenza Vacc ine (#1) [facility] Start: 06-20-2023 Plain chest X-ray XR chest 2V* [facility] Start: 06-20-2023 XR Chest 2 Views [facility] Start: 06-20-2023 Hospital admission [facility] Start: 06-20-2023 [facility] Start: 06-20-2023 CT of head without contrast CT head/brain wo con [facility] Start: 06-20-2023 CT Unspecified body region WO contrast [facility] Start: 03-01-2023 Physical therapy procedure [facility] Start: 03-01-2023 Referral to occupati onal therapist [facility] Start: 03-01-2023 Referral to neurologist [facility] Start: 03-01-2023 Hospital admission [facility] Start: 03-01-2023 [facility] Start: 08-27-2022 [facility] Start: 08-17-2013 Pneumococcal Vaccine : 65+ Years (2 of 2 - PCV) Pneumococcal Vaccine: 65+ Years (2 of 2 - PCV) [facility] Bacteria identified in Urine by Culture [facility] Comprehensive metabo lic 2000 panel - Serum or Plasma [facility] CT Abdomen and Pelvi s W contrast IV [facility] Helicobacter pylori Ag [Presence] in Stool by Immunoassay [facility] Patient Education Colon Polypectomy (DC) [facility] Work Phone: US Lower extremity v ein - bilateral [facility] Immunizations Immunization Date Immunization Notes Care Provider Fa cility 05-04-2024 influenza, high dose seasonal, preservative-free [facility] 05-04-2024 influenza virus vaccine, unspecified formulation Miguel Angel Jacobsen DO Work Phone: [facility] 07-01-2023 influenza virus vaccine, unspecified formulation [facility] 07-01-2023 influenza, high dose seasonal, preservative-free Cisco Mcadams Other [facility] Other 07-04-2022 SARS-CoV-2 (COVID-19 ) [id number] Angely GAGE [facility] 06-05-2022 influenza virus vaccine, split virus (incl. purified surface antigen) Cisco Mcadams Other [facility] Other 06-05-2022 influenza virus vaccine, unspecified formulation [facility] 03-28-2022 diphtheria, tetanus toxoids and acellular pertussis vaccine, unspecified formulation Cisco Mcadams Other [facility] 11-16-2021 SARS-CoV-2 mRNA (anpvyqkezlq-bsnu-nxbo ose) vaccine Angely GAGE [facility] 06-28-2021 influenza virus vaccine, split virus (incl. purified surface antigen) Cisco Mcadams Other [facility] Other 06-28-2021 influenza virus vaccine, unspecified formulation [facility] 05-18-2021 SARS-CoV-2 (COVID-19 ) mRNA BNT-162b2 vax Angely GAGE [facility] Comment on above: Result Comment: 2022: [id number] 10-06-2020 SARS-CoV-2 (COVID-19 ) mRNA BNT-162b2 tylor GAGE [facility] Comment on above: Result Comment: 2022: [id number] 09-15-2020 COVID-19 Vaccine Pfizer - Documentation Purposes Only Cisco Mcadams Other [facility] Comment on above: Result Comment: 2022: [id number] 05-30-2020 influenza virus vaccine, split virus (incl. purified surface antigen) Cisco Mcadams Other [place] [employer] Other 05-30-2020 influenza virus vaccine, unspecified formulation [facility] 06-01-2019 influenza virus vaccine, split virus (incl. purified surface antigen) Cisco Mcadams Other [facility] Other 06-01-2019 influenza virus vaccine, unspecified formulation [facility] 06-09-2018 influenza virus vaccine, split virus (incl. purified surface antigen) Cisco Mcadams Other [facility] Other 06-09-2018 influenza virus vaccine, unspecified formulation [facility] 05-14-2017 tetanus and diphther ia toxoids, adsorbed, preservative free, for adult use (5 Lf of tetanus toxoid and 2 Lf of diphtheria toxoid) Cisco Mcadams Other [facility] 05-26-2016 influenza virus vaccine, split virus (incl. purified surface antigen) Cisco Mcadams Other [facility] Other 05-26-2016 influenza virus vaccine, unspecified formulation [facility] 11-27-2015 pneumococcal conjuga te vaccine, 13 valent Cisco Mcadams Other [facility] 05-30-2015 influenza virus vaccine, split virus (incl. purified surface antigen) Cisco Mcadams Other [employer] Other 05-30-2015 influenza virus vaccine, unspecified formulation [facility] 06-14-2013 pneumococcal polysaccharide vaccine, 23 valent Cisco Mcadams Other [facility] 05-23-2013 tetanus and diphther ia toxoids, adsorbed, preservative free, for adult use (5 Lf of tetanus toxoid and 2 Lf of diphtheria toxoid) Cisco Mcadams Other [facility] NEGATED: Highlighted row has not occurred!07-28-2023 influenza virus vaccine, unspecified formulation Angely GAGE [facility] Payers Date Payer Category Payer Self-pay 2022 Private Health Insurance [employer] Ri mber [id number] 2008 Medicare MEDICARE [id number] 1959 Medicare [id number] 1959 Unknown [id number] 1943 Unknown [id number] 2.16.840.1.422999.3.579.2 .593 1943 Unknown [id number] 2.16.840.1.753664.3.579.2 .593 1943 Unknown [id number] 2.16.840.1.718805.3.579.2 .593 1943 Unknown [id number] 2.16.840.1.963347.3.579.2 .593 1943 Unknown [id number] 2.16.840.1.388711.3.579.2 .593 1943 Unknown [id number] 2.16.840.1.812785.3.579.2 .593 1943 Unknown [id number] 2.16.840.1.348577.3.579.2 .593 1943 Unknown [id number] 2.16.840.1.301339.3.579.2 .593 1943 Unknown [id number] 2.16.840.1.270707.3.579.2 .356 1943 Unknown [id number] 2.16.840.1.181959.3.579.2 .727 1943 Unknown [id number] 2.16.840.1.985199.3.579.2 .727 1943 Unknown [id number] 2.16.840.1.546084.3.579.2 .1259 1943 Unknown [id number] 2.16.840.1.171860.3.579.2 .1259 1943 Unknown [id number] 2.16.840.1.300161.3.579.2 .1259 1943 Unknown [id number] 2.16.840.1.640682.3.579.2 .1259 1943 Unknown [id number] 2.16.840.1.848358.3.579.2 .1259 Unknown [id number] 2.16.840.1.236456.3.579.2 .531 Unknown [id number] 2.16.840.1.899206.3.579.2 .531 Unknown [id number] 2..840.1.592598.3.579.2 .531 Unknown [id number] 2.16.840.1.048040.3.579.2 .531 Social History Date Type Detail Facility Tobacco smoking stat us [facility] Unknown if ever smoked [facility] Work Phone: Start: 1945 Sex Assigned At Male F [facility] Start: 02-22-2024 End: 01-10-2025 [facility] Start: 03-01-2023 End: 10-26-2024 Tobacco smoking status DCIS Ex-smoker (finding) [facility] Tobacco smoking status Never [facility] History of tobacco use Current smoker [facility] History of tobacco use Cigarette Smoker [facility] Start: 01-08-2024 Tobacco use and exposure Smokeless tobacco non-user [facility] Start: 02-22-2024 End: 01-10-2025 History of Social function [facility] Start: 1945 Sex assigned at Not on file N [facility] Start: 09-01-2024 End: 01-26-2025 Sex Male (finding) [facility] Goals Date Patient Goal Desired Activity /State Functional Status Date Assessment Result Facility 07-28-2023 Functional Status N/A [facility] Clinical Notes 03-20-2022 to 02-23-2025 Note Date & Type Note Facility 02-23-2025 Note [facility] Note Chief Complaint: Patient here for follow up 2 ED visits since he was last seen in the office in November 2024. says the ED visits were for dehydration and 1 visit for anxiety. Patient denies chest pain, SOB, and palpitations. HPI: Mr. Patel presents to clinic for [...] kg (178 lb) SpO2 99% BMI 22.85 kg/m??? Physical Examination: GENERAL: alert and oriented [...] 5. [facility] up [facility] in 1 to 2 months. 6. [...] 55 to 60% Mild aortic and tricuspid reg (more content not included)... [facility] 02-14-2025 Evaluation note Diagnosis Onset Date Resolution ASHD (arteriosclerotic heart disease) acute February 14, 2025 9:57am GREYSON (generalized anxiety disorder) acute February 14, 2025 9:57am Hypertension acute February 14 9:57am Ascending aortic aneurysm acute May 05, 2025 8:14am ASHD (arteriosclerotic heart disease) acute May 05, 2025 8:14am Chronic venous insufficiency of lower extremity acute May 05, 2025 8:14am GREYSON (generalized anxiety disorder) acute May 05, 2025 8:14am Hypercholesteremia acute 2024 8:14am Hypertension acute May 052024 8:14am Irritable bowel syndrome with constipation acute April 8:14am Peripheral polyneuropathy acute May 05, 2025 8:14am Ulnar neuropathy at elbow of left upper extremity acute 2024 8:14am [facility] Work Phone: 1(507) 824-966605-27-2025 History of Present illness Narrative* Miguel Angel Jacobsen, - 01/10/2025 9:00 AM EDT Images from the original note were [...] laser capsulotomy, they are to notify their woven wood shade assembler promptly if they have a significant change [...] after cessation of Escitalopram. documented in this encounterSt. Joseph Medical [id number] Chief Complaint: Patient here for 1 year follow up. Patient states he feels pretty good, with the exception of his feet due to neuropathy. Patient denies chest pain, SOB, dizziness, leg swelling, passing out or heart palpitations. Patient states he just seen is PCP Dr. Mcadams on 12/12/2024. HPI: Mr. Patel presents to [...] 5. Follow up with [facility] in 1 to 2 months. 6. [...] 2. Mixed hyperlipidemia 3. Coronary arteriosclerosis in nikolai artery 4. Dilated aortic root P (more content not included)...[facility]04-28-2025 Evaluation note* Diagnosis Onset Date Resolution Status Admit Date SNHL (sensorineural hearing loss) ac [place] December 12, 2024 2:21pm Bleeding from left ear noneactive Ap [facility] 2024 2:21pm External otitis of left ear [...] or gangrene acute January 03, 2025 2:21pm Dysfunction of right eustach christiano tube acute January 26, 2025 8:30am Hypertension acute January 26, 025 8:30am SNHL (sensorineural hearing loss) ac [place] January 26, 2025 8:30am ASHD (arteriosclerotic heart disease) acute February 14, 2025 9:57am GREYSON (generalized anxiety disorder) acute February 14, 2025 9:57am Hypertension acute February 14 9:57am [facility] Work Phone: 1(797) 246-306403-14-2025 Evaluation note* Diagnosis Onset Date Resolution Status Admit Date Chronic venous insufficiency of lower extremity acute October 28, 2024 11:43am Lower extremity ulceration acute October 28, 2024 11:43am Cerumen impaction noneactive October 152024 11:43am Aphthous ulcer of mouth acute A 2024 2:40pm Hypertension acute November 15, 2 025 2:40pm SNHL (sensorineural hearing loss) ac [place] December 12, 2024 2:21pm Bleeding from left ear noneactive Ap 2024 2:21pm External otitis of left ear [...] Peripheral polyneuropathy acute December 28, 2024 8:18am [facility] Work Phone: 1(901) 707-922703-14-2025 Evaluation note* Diagnosis Onset Date Resolution Status Admit Date Chronic venous insufficiency of lower extremity acute October 28, 2024 11:43am Lower extremity ulceration deleted October 28, 2024 11:43am Cerumen impaction noneactive October 152024 11:43am Hypertension acute November 15 2:40pm Aphthous ulcer of mouth deleted A pril 2024 2:40pm SNHL (sensorineural hearing loss) ac [place] December 12, 2024 2:21pm Bleeding from left ear noneactive Ap 2024 2:21pm External otitis of left ear [...] or gangrene acute January 03, 2025 2:21pm [facility] Work Phone: 1(391) 949-272801-29-2025 Evaluation note* Diagnosis Onset Date Resolution Status [...] acute A pri2024 2:40pm Hypertension acute November 15 2:40pm [facility] Work Phone: 1([phone]) 536-442701-16-2025 Evaluation note* Diagnosis Onset Date Resolution Status [...] both lower extremities acute September 21 9:40am [facility] Work Phone: 1([phone]) 295-332801-16-2025 Evaluation note* Diagnosis Onset Date Resolution Status [...] 11:43am Cerumen impaction noneactive October 152024 11:43am [facility] Work Phone: 1(271) 891-313611-25-2024 Evaluation note* Diagnosis Onset Date Resolution Status Admit Date Carpal tunnel syndrome of le ft wrist acute July 11, 024 11:35am Chronic venous insufficiency of lower extremity acute July 11, 11:35am Swelling of both lower extremities acute July 11, 024 11:35am Ascending aortic aneurysm acute September 01, [...] spec ific antigen) acute September 01 8:40am [facility] Work Phone: 1([phone]) 687-736411-25-2024 Evaluation note* Diagnosis Onset Date Resolution Status Admit Date Carpal tunnel syndrome of le ft wrist acute July 11, 2 024 11:35am Chronic venous insufficiency of lower extremity acute July 11, 2 024 11:35am Swelling of both lower extremities acute July 11, 024 11:35am Ascending aortic aneurysm acute September 01, [...] both lower extremities acute September 14 8:13am [facility] Work Phone: 1(797) 485-823911-19-2024 NoteRight Eye Reliability was borderline. Progression has been stable. Foveal threshold was normal. Findings include normal observations. Left Eye Reliability was good. Progression has been stable. Foveal threshold was normal. Findings include normal observations.St. [facility] Medical [id number] History of Present illness Narrative* Miguel Angel Jacobsen, - 07/05/2024 9:30 AM EST Images from [...] laser capsulotomy, they are to notify their woven wood shade assembler promptly if they have a significant change [...] after cessation of Escitalopram. documented in this encounterSt. Joseph Medical [id number] Evaluation note* Encounter Date Diagnosis Assessment Notes Treatment Notes Treatment Clinical Notes Aug, GREYSON (generalized anxiety disorder) (ICD-10 - F41.1) [facility] Other 01-30-2024 Evaluation note* Encounter Date Diagnosis [...] treatment Referred and scheduled w/ Neuropsychiatric testing [facility] Other 01-12-2024 Evaluation note* Encounter Date Diagnosis [...] Denies dysuria or hematuria PSA next OV [facility] Other [id number] NoteChief Complaint consultation for left inguinal hernia [...] Use:. Cigarettes, 2per day. (more content not included)...[facility] CenterComment on above:Result Comment: Electronically Signed By: TOO TEJADA, Angely Daniels\Date and Time Signed: 07/28/23 20:29 [id number] Evaluation note * Encounter Date Diagnosis Assessment [...] Fall precuations. Discussed tapering dose of Gabapentin [facility] Other 11-02-2023 Evaluation note* Encounter Date Diagnosis Assessment Notes Treatment Notes Treatment Clinical Notes Jun, COVID-19 (ICD-10 - U07.1) [facility] Other 11-01-2023 Evaluation note* Encounter Date Diagnosis [...] or drinking prior to bedtime. Weight loss. [facility] Other 10-04-2023 Evaluation note* Encounter Date Diagnosis [...] now. Recheck in month, consider Neurology referral [facility] Other 09-25-2023 Evaluation note* Encounter Date Diagnosis Assessment Notes Treatment Notes Treatment Clinical Notes Apr, COVID (ICD-10 - U07.1) [facility] Other 09-07-2023 Evaluation note* Encounter Date Diagnosis Assessment Notes Treatment Notes Treatment Clinical Notes Apr, Right lower quadrant abdominal pain (ICD-10 - R10.31) [facility] Other 09-05-2023 Evaluation note* Encounter Date Diagnosis [...] a trip to ER for IV hydration. [facility] Other 07-31-2023 Evaluation note* Encounter Date Diagnosis Assessment Notes Treatment Notes Treatment Clinical Notes Feb, Primary insomnia (ICD-10 - F51.01) [facility] Other 07-18-2023 Evaluation note* Encounter Date Diagnosis Assessment Notes Treatment Notes Treatment Clinical Notes Feb, Peripheral polyneuropathy (ICD-10 - G62.9) [facility] Other 07-11-2023 Evaluation note* Encounter Date Diagnosis [...] Healtlhy diet, exercise and proper sleep routine [facility] Other 06-06-2023 Evaluation note* Encounter Date Diagnosis Assessment Notes Treatment Notes Treatment Clinical Notes Jan, Peripheral polyneuropathy (ICD-10 - G62.9) [facility] Other 04-07-2023 Evaluation note* Encounter Date Diagnosis [...] continue exercise to achieve/maintain a normal BMI. [facility] Other 03-08-2023 Evaluation note* Encounter Date Diagnosis [...] in remission (ICD-10 - F17.211) Continue abstinence [facility] Other 02-21-2023 Evaluation note* Encounter Date Diagnosis [...] Fall precautions. Inspect feet daily for cuts. [facility] Other 01-18-2023 Evaluation note* Encounter Date Diagnosis Assessment Notes Treatment Notes Treatment Clinical Notes Aug, Helicobacter pylori (H. pylori) (ICD-10 - A04.8) [facility] Other 01-11-2023 History and physical note Author [facility] August 27, 2022 10:16am Note Date/Time August 27, 2022 1 0:16am [facility] [address] [place] [address] Gastroenterology H&P Signed Patient: Yonatan Patel MR#: [id number] : 1945 Acct:[id number] Age/Sex: 77 / M Adm Date: 3 Loc: Room: Type: [facility] Attending Dr: Alek Oliva MD Copies to: Cisco Mcadams,DO MD Alek Aragon MD~ Date of Service: 08/27/2022 HISTORY & [...] signed by Maryjane Christensen MD> 08/27/22 1016 [facility] Work Phone: 1(264) 941-864301-11-2023 [facility]-2023 [facility]Hol[facility] [place]-04-2023 Evaluation note* Encounter Date Diagnosis Assessment Notes Treatment Notes Treatment Clinical Notes Aug, Primary insomnia (ICD-10 - F51.01) [facility] Other 08-04-2022 NoteHISTORY AND PHYSICAL EXAMINATION Date:03/19/2022 [...] doing so in the near future. 3. [id number] patient was briefed in the office and [...] and go forward with this elective procedure.[facility] [id number] NoteOPERATIVE NOTE OPERATION DATE: 03/20/2022 SURGEON: Miguel [...] ensuring mobility, phacoemulsification was performed in a edgzsun-gdz-pqxxrn-type fashion. After all nuclear material had been [...] and after satisfaction could be achieved, the skid adzer and the gonioprism were removed from the [...] up the following day for postoperative care.[facility] CenterConsult note Author Berhane Trammell [facility] March 01, 2023 2:24pm Note Date/Time March 01, 2023 2:24 pm [facility] [address] [place] [address] Neurology Consult Note Signed Patient: Yonatan Patel MR#: [id number] : 1945 Acct:[id number] Age/Sex: 77 / M Adm Date: 3 Loc: Room: [address] [place] [address] Type: ADM INOo Attending Dr: Bobo Villagomez MD Copies to: DO Bobo Adler MD Steven Benedict, MD~ HPI Consult Date: 03/01/23 Truck Packer: Berhane Trammell MD Reason for consult: Leg [...] Selena Reid M.D.03/01/2023 9:15 AM Dictation Location: [place] [address] 03/01/23 07:02 IMPRESSION: ATROPHY AND CHRONIC MICROVASCULAR CHANGES. NO DEFINITE ACUTE INTRACRANIAL ABNORMALITY. FOLLOW-UP IS RECOMMENDED, SYMPTOMS WARRANT. COMMENT: Preliminary report was provided at 0730 hours. Impression dictated by: Selena Reid M.D.03/01/2023 8:13 AM Dictation Location: [place] [address] Therapy Recommendations Therapy Recommendations: OT Recommendations OT [...] Status: Acute Documented By: Berhane Trammell MD 03/01/231415 Signed By: <Electronically signed by MD Berhane Trammell> 03/01/23 1424 [facility] Work Phone: Discharge summary Author Angely Lee [facility] March 02, 2023 5:49pm Note Date/Time March 02, 2023 5:43 pm [facility] [address] [place] [address] Discharge Summary Signed Patient: Yonatan Patel MR#: [id number] : 1945 Acct:[id number] Age/Sex: 77 / M Adm Date: 3 Loc: Room: [address] [place] [address]: Angely Lee DO Copies to: [...] signed by Angely Lee DO> 03/02/23 1749 [facility] Work Phone: Evaluation + Plan note No data available for this section General Surgery [place] Evaluation + Plan note Future Appointments Appointment Date:09/02/2023 02:40:00 PM Scheduled Provider:Angely GAGE MD Location:[facility] Appointment Type: Post Op 15 General Surgery [place] evaluation noteNo assessment information available [facility] Work Phone: evaluligri noteNo InformationNort [employer] Other Evaluwrlww note* Diagnosis Onset Date Resolution Status Bilateral leg pain acute Numbness of left hand acute [facility] Work Phone: Evaluation note* Diagnosis Onset Date Resolution Status Adverse drug effect acute Altered mental status acute COVID acute Hypertension acute Lab test positive for detection of COVID-19 virus acute Neuropathy acute [facility] Work Phone: Evaluation note* Diagnosis Onset Date Resolution Status GREYSON (generalized anxiety disorder) acute GERD (gastroesophageal reflux disease) acute Hypercholesteremia acute Hypertension acute Peripheral polyneuropathy ac [place] Primary insomnia acute [facility] Work Phone: Evaluation note* Diagnosis Onset Date Resolution Status GREYSON (generalized anxiety disorder) acute GERD (gastroesophageal reflux disease) acute Hypercholesteremia acute Hypertension acute Peripheral polyneuropathy ac [place] Primary insomnia acute GREYSON (generalized anxiety disorder) acute Hypertension acute Irritable bowel syndrome with constipation acute Acute prostatitis noneactive ASHD (arteriosclerotic heart disease) acute GREYSON (generalized anxiety disorder) acute Hypercholesteremia acute Hypertension acute Irritable bowel syndrome with constipation acute Peripheral polyneuropathy ac [facility] Work Phone: Evaluation note* Diagnosis Onset Date Resolution Status GREYSON (generalized anxiety disorder) acute Hypertension acute Irritable bowel syndrome with constipation acute Acute prostatitis noneactive ASHD (arteriosclerotic heart disease) acute GREYSON (generalized anxiety disorder) acute Hypercholesteremia acute Hypertension acute Irritable bowel syndrome with constipation acute Peripheral polyneuropathy ac [facility] Work Phone: Evaluation note* Diagnosis Onset Date Resolution Status Ascending aortic aneurysm ac [place] ASHD (arteriosclerotic heart disease) acute GREYSON (generalized anxiety disorder) acute Hypercholesteremia acute Hypertension acute Irritable bowel syndrome with constipation acute Peripheral polyneuropathy ac [place] Abdominal pain acute Benign prostatic hyperplasia with lower urinary tract symptoms acute Polyuria acute [facility] Work Phone: Evaluation note* Diagnosis Onset Date Resolution Status Ascending aortic aneurysm ac [place] ASHD (arteriosclerotic heart disease) acute GREYSON (generalized anxiety disorder) acute Hypercholesteremia acute Hypertension acute Irritable bowel syndrome with constipation acute Peripheral polyneuropathy ac [place] Abdominal pain acute Benign prostatic hyperplasia with lower urinary tract symptoms acute Polyuria acute COVID acute [facility] Work Phone: Evaluation note* Diagnosis Onset Date Resolution Status Abdominal pain acute Benign prostatic hyperplasia with lower urinary tract symptoms acute Polyuria acute COVID acute Ascending aortic aneurysm ac [place] ASHD (arteriosclerotic heart disease) acute GREYSON (generalized anxiety disorder) acute Hypercholesteremia acute Hypertension acute Irritable bowel syndrome with constipation acute Peripheral polyneuropathy ac [facility] Work Phone: Evaluation note* Diagnosis [...] HealthcareHistory and physical note Author Bobo Villagomez [facility] March 01, 2023 9:50am Note Date/Time March 01, 2023 9:50 am [facility] [address] [place] [address] Hospitalist H&P Signed Patient: Yonatan Patel MR#: [id number] : 1945 Acct:[id number] Age/Sex: 77 / M Adm Date: 3 Loc: Room: [address] [place] [address] Type: ADM INO Attending Dr: Bobo Villagomez MD Copies to: [...] except as mentioned elsewhere in the documentation [facility] Medical History Cataract Hypercholesteremia Hypertension Surgical [...] % (Auto) 23.7 % (.) 03/01/23 07:06 [place] % (Auto) 8.3 % (.) 03/01/23 07:06 Eos % (Auto) 1.4 % (.) 03/01/23 07:06 Baso % (Auto) 0.7 % (.) 03/01/23 07:06 Nucleat RBC Rel Count 0.3 /100 WBC (0-0.5) 03/01/23 07:06 Neut # (Auto) 3.5 x10E3/uL (1.8-7.7) 03/01/23 07:06 Lymph # (Auto) 1.3 x10E3/uL (1.00-4.8) 03/01/23 07:06 [place] # (Auto) 0.4 x10E3/uL (0.0-0.8) 03/01/23 07:06 [...] pH 7.5 (5.0-9.0) 03/01/23 07:49 Ur Specific [place] 1.014 (1.001-1.030) 03/01/23 07:49 Urine Protein Negative [...] signed by Bobo Villagomez MD> 03/01/23 0950 [facility] Work Phone: History general Narrative - Reported* Type Description Date Medical History hypercholesterolemia Medical History hypertension Medical History anxiety Medical History Esophageal reflux Medical History glaucoma Medical History neuropathy Surgical History heart catheterization Surgical History shoulder surgery Surgical History colonoscopy with polyp resectio n 08/27/21 Surgical History EGD 08/27/21 Hospitalization History see above [facility] Other History general Narrative - Reported* Type Description Date Medical History hypercholesterolemia Medical History hypertension Medical History anxiety Medical History Esophageal reflux Medical History glaucoma Medical History neuropathy Surgical History heart catheterization Surgical History shoulder surgery Surgical History colonoscopy with polyp resectio n 08/27/22 Surgical History EGD 1/11/23 Hospitalization History see above [facility] Other History general Narrative - Reported* Type Description Date Medical History hypercholesterolemia Medical History hypertension Medical History anxiety Medical History Esophageal reflux Medical History glaucoma Medical History neuropathy Surgical History heart catheterization Surgical History shoulder surgery Surgical History colonoscopy with polyp resectio n 08/27/22 Surgical History EGD 08/27/22 Surgical History Left Inguinal Hernia Repair 08/18 024 Hospitalization History see above [facility] Other Hospital Discharge instructions Additional Instructions DISCHARGE [...] NOT operate machinery such as power tools, [employer] mowers, [employer], sewing machines, etc. for 24 hours. - [...] NOT operate machinery such as power tools, [employer]ango.coms, [employer], sewing machines, etc. for 24 hours. - [...] follow up with PCP - Office number [phone]. [facility] Work Phone: Hospital Discharge instructions No data available for this section [facility] [place] Progress note Author Berhane Trammell [facility] March 02, 2023 3:27pm Note Date/Time March 02, 2023 3:23 pm [facility] [address] [place] [address] Neurology Progress Note Signed Patient: Yonatan Patel MR#: [id number] : 1945 Acct:[id number] Age/Sex: 77 / M Adm Date: 3 Loc: 3T Room: [address] [place] [address] Type: ADM INOo Attending Dr: Angely Lee [...] signed by MD Berhane Trammell> 03/02/23 1527 [facility] Work Phone: Progress note No data available for this section [facility] [place] Reason for referral (narrative)* Reason Referral for left in direct inguinal hernia Diagnosis 1 Indirect left inguin al hernia (K40.90) Referral Organization [facility] Referring Provider First Name Cisco Referring Provider Last Name Abbe Referring Provider Specialty Internal Ri dicine [facility] Referred Provider Angely Gage [place] [address] [place], [place],[address] Referred Provider Specialty Surgery Referral Priority Urgent General Notes Mr. Patel has a left indirect inguinal hernia w/ intermittent episodes of increased pain, abdominal distention and nausea. He has experienced 3-4 of these episodes in the past 2 weeks, with increased intensity and duration of pain. A recent episode was associated w/ a transient fever and chills. [facility] Other Reason for referral (narrative)No reason for referral information availableBar[facility] Work Phone: Reason for visit NarrativeERROR/Gastro referral issue [employer] [facility] Other Chief Complaint and Reason for Visit [...] 2024 11:35am Swelling of both lower extremities 2023 11:35am Ascending aortic aneurysm September 01, 2024 8:40am ASHD (arteriosclerotic heart disease) [facility] 2024 8:40am Chronic venous insufficiency of lower ex tremity September 01, 2024 8:40am GREYSON (generalized anxiety disorder) [facility] ry 2024 8:40am Hypercholesteremia September 01, [...] Carpal tunnel syndrome of left wrist Nov 2023 11:35am Chronic venous insufficiency of lower ex tremity July 11, 2024 11:35am Swelling of both lower extremities Novem 2023 11:35am Ascending aortic aneurysm September 01, 2024 8:40am ASHD (arteriosclerotic heart disease) [facility] 2024 8:40am Chronic venous insufficiency of lower ex tremity September 01, 2024 8:40am GREYSON (generalized anxiety disorder) [facility] 2024 8:40am Hypercholesteremia September 01, 2024 8 [...] 2024 9:20am [facility] of both lower [facility] 9:20am Chronic venous insufficiency of lower ex tremity September 14, 2024 8:13am Lower extremity ulceration September 14, 2024 8:13am Swelling of both lower extremities [facility] 8:13am Chief Complaint Admit Date [...] 01, 2024 8:40am ASHD (arteriosclerotic heart disease) [facility] 2024 8:40am Chronic venous insufficiency of lower ex tremity September 01, 2024 8:40am GREYSON (generalized anxiety disorder) [facility] 2024 8:40am Hypercholesteremia September 01, [...] 2024 9:20am Swelling of both lower extremities [facility] ry 2024 9:20am Chronic venous insufficiency of lower ex tremity September 14, 2024 8:13am Lower extremity ulceration September 14, 2024 8:13am Swelling of both lower extremities [facility] ry 2024 8:13am Chronic venous insufficiency of lower ex tremity September 21, 2024 9:40am Lower extremity ulceration September 21, 2024 9:40am Swelling of both lower extremities Febru 2024 9:40am Chief Complaint Admit Date Wellness [...] 01, 2024 8:40am ASHD (arteriosclerotic heart disease) [facility] 2024 8:40am Chronic venous insufficiency of lower ex tremity September 01, 2024 8:40am GREYSON (generalized anxiety disorder) [facility] 2024 8:40am Hypercholesteremia September 01, [...] 2024 9:20am Swelling of both lower extremities [facility] 2024 9:20am Chronic venous insufficiency of lower ex tremity September 14, 2024 8:13am Lower extremity ulceration September 14, 2024 8:13am Swelling of both lower extremities [facility] 2024 8:13am Chronic venous insufficiency [...] 2024 11:43am Lower extremity ulceration October 28, 025 11:43am Cerumen impaction October 28, 2024 [...] 2024 11:43am Lower extremity ulceration October 28, 025 11:43am Cerumen impaction October 28, 2024 [...] 2024 11:43am Lower extremity ulceration October 28, 11:43am Cerumen impaction October 28, 2024 11: [...] obstruction or gangrene January 03, 2025 2:21pm Chief Complaint Admit Date blocked ears/ear drainage December 12 2:21pm 4 month f/u December 28, 2024 8:18a m possible hernia/referral January 03, 2025 2:21pm right ear feels clogged January 26, 2025 8:30am Amb Documentation February 13, 2025 9:33 am [facility] ER; syncope February 14, 2025 9:57a m Reason for Visit Admit Date SNHL (sensorineural hearing loss) December 12, 2024 [...] 03, 2025 2:21pm Inguinal hernia of right side without ob struction or gangrene January 03, 2025 2:21pm Dysfunction of right eustachian tube Noam e 2024 8:30am Hypertension January 26, 2025 8:30 am SNHL (sensorineural hearing loss) January 152024 8:30am ASHD (arteriosclerotic heart disease) [facility] 2024 9:57am GREYSON (generalized anxiety disorder) February 14, 2025 9:57am Hypertension February 14, 2025 9:57a m Chief Complaint Admit Date Amb Documentation February 13, 2025 9:33 am [facility] ER; syncope February 14, 2025 9:57a m 4 month f/u May 05, 2025 8:14am Reason for Visit Admit Date ASHD (arteriosclerotic heart disease) Ju ly 2024 9:57am GREYSON (generalized anxiety disorder) February 14, 2025 9:57am Hypertension February 14, 2025 9:57a m Ascending aortic aneurysm April 8:14am ASHD (arteriosclerotic heart disease) Se ptember 2024 8:14am Chronic venous insufficiency of lower ex tremity May 05, 2025 8:14am GREYSON (generalized anxiety disorder) Rosey mber 2024 8:14am Hypercholesteremia May 05, 2025 8:14am Hypertension May 05, 2025 8:14am Irritable bowel syndrome with constipati on May 05, 2025 8:14am Peripheral polyneuropathy April 8:14am Ulnar neuropathy at elbow of left upper extremity May 05, 2025 8:14am Family History Relationship Condition Age at Onset [...] Date/ Time Advance Directives No October 26 2:00pm Summary Purpose Additional Source Comments Care Teams (unrecognized sec tion and content) Team Status: Active Member Role Status Dates Cisco Mcadams DO Primary Care Provider Active Team Status: Active Member Role Status Dates Cisco Mcadams DO Primary Care Provider Active Start: February 12, 2025 Natalie Dunn PA-C Attending Provider Active Start : February 12, 2025 Team Status: Active Member Role Status Dates Cisco Mcadams DO Primary Care Provider Active Start: February 13, 2025 Gabriella Kenney CMA Attending Provider Active Start: February 13, 2025 Team Status: Inactive Member Role Status Dates Cisco Mcadams DO Primary Care Provider Active Start: February 14, 2025 End: February 14, 2025 Cisco Mcadams DO Attending Provider Active Sta rt: February 14, 2025 End: February 14, 2025 Team Status: Active Member Role Status Dates Cisco Mcadams DO Primary Care Provider Active Start: February 21, 2025 Anjelica Long MD Attending Provider Active Sta rt: February 21, 2025 Team Status: Active Member Role Status Adriana Mcadams DO Primary Care Provider Active Start: February 28, 2025 Omid Lockhart , DO Attending Provider Active S tart: February 28, 2025 Team Status: Inactive Member Role Status Adriana Mcadams DO Primary Care Provider Active Start: May 05, 2025 End: May 05, 2025 Cisco Mcadams , DO Attending Provider Active Sta rt: May 05, 2025 End: May 05, 2025 Team Status: Active Member Role Status Adriana [...] Member Role Status Dates Cisco Mcadams , DO Primary Care Provide r, Attending Provider Active Start: November 06, 2023 End: November 06, 2023 Team Status: Active Member Role Status Dates Cisco Mcadams , DO Primary Care Provider Active Alejo Lynn , DO Emergency Provider Active Bobo Villagomez MD Admit Provider, Attending Provi jeanette Active Berhane Trammell MD Other Provider Active Team Status: Inactive Member Role Status Adriana Oliva MD Attending Provider Active Cisco Mcadams , DO Primary Care Provider Active Team Status: Inactive Member Role Status Dates Cisco Mcadams DO Primary Care Provider Active Maryjane Christensen MD Attending Provider Active Team Status: Active Member Role Status Dates Cisco Mcadams , DO Primary Care Provider Active Sandoval Palacios Jr, MD Emergency Provider Active Warren Quiroz MD Admit Provider, Attending Provider Active Team Status: Active Member Role Status Adriana Mcadams DO Primary Care Provide r, Attending Provider Active Start: November 16, 2023 Team Status: Inactive Member Role Status Dates Cisco Mcadams , DO Primary Care Provide r, Attending Provider Active Start: November 27, 2023 End: November 27, 2023 Die Tripper Relationship Specialty Start Date End Date Cisco Mcadams MD [address] [place] [address] PCP - General Internal Medicine 04/09/23 Die Tripper Relationship Specialty Start Date End Date Cisco Mcadams MD [address] [place] [address] PCP - General Internal Medicine 04/09/23 Die Tripper Relationship Specialty Start Date End Date Cisco Mcadams MD [address] [place] [id number] PCP - General Internal Medicine 04/09/23 Die Tripper Relationship Specialty Start Date End Date Cisco Mcadams MD [address] [place] [id number] PCP - General Internal Medicine 04/09/23 Team Status: Inactive Member Role Status Dates Cisco Mcadams , DO Primary Care Provide r, Attending Provider Active Start: July 11, 2024 End: July 11, 2024 Team Status: Inactive Member Role Status Dates Cisco Mcadams , DO Primary Care Provide r, Attending Provider Active Start: September 01, 2024 End: September 01, 2024 Team Status: Active Member Role Status Dates Cisco Mcadams , DO Primary Care Provide r, Attending Provider Active Start: September 02, 2024 Team Status: Inactive Member Role Status Dates Cisco Mcadams , DO Primary Care Provide r, Attending Provider Active Start: September 07, 2024 End: September 07, 2024 Team Status: Inactive Member Role Status Dates Cisco Mcadams , DO Primary Care Provide r, Attending Provider Active Start: September 14, 2024 End: September 14, 2024 Team Status: Inactive Member Role Status Dates Cisco Mcadams , DO Primary Care Provide r, Attending Provider Active Start: September 21, 2024 End: September 21, 2024 Team Status: Inactive Member Role Status Dates Cisco Mcadams , DO Primary Care Provide r, Attending Provider Active Start: October 28, 2024 End: October 28, 2024 Team Status: Inactive Member Role Status Dates Cisco Mcadams , DO Primary Care Provide r, Attending Provider Active Start: November 15, 2024 End: November 15, 2024 Team Status: Inactive Member Role Status Dates Cisco Mcadams , DO Primary Care Provide r, Attending Provider Active Start: December 12, 2024 End: December 12, 2024 Team Status: Inactive Member Role Status Dates Cisco Mcadams DO Primary Care Provide r, Attending Provider Active Start: December 28, 2024 End: December 28, 2024 Die Tripper Relationship Specialty Start Date End Date Cisco Mcadams DO [address] [facility] [place] [id number] PCP - General Internal Medicine 04/09/23 Die Tripper Relationship Specialty Start Date End Date Cisco Mcadams DO [address] [facility] [place] [id number] PCP - General Internal Medicine 04/09/23 Die Tripper Relationship Specialty Start Date End Date Cisco Mcadams DO [address] [place] [id number] PCP - General Internal Medicine 04/09/23 Team [...] January 26, 2025 End: January 26, 2025 Die Tripper Relationship Specialty Start Date End Date Cisco Mcadams DO [address] [place] [id number] PCP - General Internal Medicine 04/09/23 Team Status: Inactive Member Role Status Dates Cisco Mcadams DO Primary Care Provider Active Start: December 12, 2024 End: December 12, 2024 Cisco Mcadams DO Attending Provider Active Sta rt: December 12, 2024 End: December 12, 2024 Team Status: Inactive Member Role Status Dates Cisco Mcadams DO Primary Care Provider Active Start: December 28, 2024 End: December 28, 2024 Cisco Mcadams DO Attending Provider Active Sta rt: December 28, 2024 End: December 28, 2024 Team Status: Inactive Member Role Status Dates Cisco Mcadams DO Primary Care Provider Active Start: January 03, 2025 End: January 03, 2025 Cisco Mcadams , DO Attending Provider Active Sta rt: January 03, 2025 End: January 03, 2025 Team Status: Active Member Role Status Dates Cisco Mcadams DO Primary Care Provider Active Start: January 06, 2025 Cisco Mcadams DO Attending Provider Active Sta rt: January 06, 2025 Team Status: Inactive Member Role Status Dates Cisco Mcadams DO Primary Care Provider Active Start: January 26, 2025 End: January 26, 2025 Cisco Mcadams DO Attending Provider Active Sta rt: January 26, 2025 End: January 26, 2025 Team Status: Active Member Role Status Dates Cisco Mcadams DO Primary Care Provider Active Start: February 12, 2025 Natalie Dunn PA-C Attending Provider Active Start : February 12, 2025 Team Status: Active Member Role Status Dates Cisco Mcadams DO Primary Care Provider Active Start: February 13, 2025 Gabriella Kenney CMA Attending Provider Active Start: February 13, 2025 Team Status: Inactive Member Role Status Dates Cisco Mcadams DO Primary Care Provider Active Start: February 14, 2025 End: February 14, 2025 Cisco Mcadams DO Attending Provider Active Sta rt: February 14, 2025 End: February 14, 2025 Die Tripper Relationship Specialty Start Date End Date Cisco Mcadams DO [address] [place] [id number] PCP - General Internal Medicine 04/09/23 Team Status: Active Member Role Status Dates Cisco Mcadams DO Primary Care Provider Active Start: February 21, 2025 Anjelica Long MD Attending Provider Active Sta rt: February 21, 2025 Team Status: Active Member Role Status Dates Cisco Mcadams DO Primary Care Provider Active Start: February 28, 2025 Omid Lockhart DO Attending Provider Active S tart: February 28, 2025 Team Status: Inactive Member Role Status Dates Cisco Mcadams DO Primary Care Provider Active Start: May 05, 2025 End: May 05, 2025 Cisco Mcadams DO Attending Provider Active Sta rt: May 05, 2025 End: May 05, 2025 (unrecognized sect ion and content) No Status Records FoundNo Status Records FoundNo Status Records FoundNo Status Records FoundNo Status Records FoundNo Status Records Found INFORMATION SOURCE (unrecogn ized section and content) DATE CREATED AUTHOR 09/16/2022 [facility] DATE CREATED AUTHOR AUTHOR'S ORGANIZ ATION 03/05/2023 [facility] DATE CREATED AUTHOR AUTHOR'S ORGANIZ ATION 06/25/2023 [facility] DATE CREATED AUTHOR AUTHOR'S ORGANIZ ATION 08/25/2023 [facility] DATE CREATED AUTHOR AUTHOR'S ORGANIZ ATION 01/13/2025 [facility] DATE CREATED AUTHOR AUTHOR'S GABRIELE ISLAS 04/04/2025 [facility] REASON FOR VISIT (unrecogniz ed section and content) Reason Comments Med Refill Reason Comments Follow-up Glaucoma Reason Onset Date Comments Med Refill 07/28/2024 Reason Comments Glaucoma Reason Onset Date Comments Med Refill 01/12/2025 Reason Onset Date Comments Med Refill 03/31/2025 Goals (unrecognized section and content) Goals may [...] BE BASED ON THE PRIMARY CLINICAL RECORDS. [employer] provides no warranty or guarantee of the accuracy or completeness of information in this document.
--- NOTE | 2025-05-11 11:59 | PM.WCHP ---
Wound Care H&P: HPI History of Present Illness Narrative: Mr. Peterson is a pleasant 80-year-old gentleman with history of peripheral neuropathy who presents for routine toenail care. He has no complaints in regards to his feet at this time but does have complaints of temperature changes (feeling cold) and paresthesias in his feet, worse at night. [facility] Medical History (Updated 02/28/25 @ 13:02 by Grady Lockhart MD) Insomnia ?G47.00 - Insomnia, unspecified (ICD-10) Neuropathy ?G62.9 - Polyneuropathy, unspecified (ICD-10) Irritable bowel syndrome with constipation ?K58.1 - Irritable bowel syndrome with constipation (ICD-10) GERD (gastroesophageal reflux disease) ?K21.9 - Gastro-esophageal reflux disease without esophagitis (ICD-10) Encephalopathy ?G93.40 - Encephalopathy, unspecified (ICD-10) Cholelithiases ?K80.20 - Calculus of gallbladder without cholecystitis without obstruction (ICD-10) Colon polyp ?K63.5 - Polyp of colon (ICD-10) Glaucoma ?H40.9 - Unspecified glaucoma (ICD-10) Anxiety ?F41.9 - Anxiety disorder, unspecified (ICD-10) Rib fracture (06/2022) ?S22.39XA - Fracture of one rib, unspecified side, initial encounter for closed fracture (ICD-10) Pneumothorax (06/2022) ?J93.9 - Pneumothorax, unspecified (ICD-10) Constipation ?K59.00 - Constipation, unspecified (ICD-10) Inguinal hernia ?K40.90 - Unilateral inguinal hernia, without obstruction or gangrene, not specified as recurrent (ICD-10) Hypertension ?I10 - Essential (primary) hypertension (ICD-10) High cholesterol ?E78.00 - Pure hypercholesterolemia, unspecified (ICD-10) COVID-19 (06/17/23) ?U07.1 - COVID-19 (ICD-10) Surgical History (Updated 08/19/23 @ 09:21 by Anahi Tellez) H/O eye surgery ?Z98.890 - Other specified postprocedural states (ICD-10) History of arthroscopy of shoulder ?Z98.890 - Other specified postprocedural states (ICD-10) History of arthroscopy of shoulder ?Z98.890 - Other specified postprocedural states (ICD-10) History of cardiac catheterization ?Z98.890 - Other specified postprocedural states (ICD-10) History of arthroscopy of shoulder ?Z98.890 - Other specified postprocedural states (ICD-10) History of esophagogastroduodenoscopy (EGD) ?Z98.890 - Other specified postprocedural states (ICD-10) History of colonoscopy ?Z98.890 - Other specified postprocedural states (ICD-10) History of hernia repair ?Z98.890 - Other specified postprocedural states (ICD-10) ?Z87.19 - Personal history of other diseases of the digestive system (ICD-10) Family History (Updated 08/07/23 @ 10:22 by Ingrid Coronel NP) Other Family history of brain cancer Family history of gastric cancer Family history of myocardial infarction Social History (Updated 08/07/23 @ 10:10 by Ingrid Coronel NP) Within the past year, how often did you have a drink containing alcohol: never Score interpretation: A score less than 4 is consistent with normal alcohol consumption. Smoking status: Never smoker Non-prescribed substance use: denies use Previous occupational history: [employer] Highest level of school completed/degree received: high school graduate Little interest or pleasure in doing things: not at all Feeling down, depressed, or hopeless: not at all Meds Home Medications and Allergies Home Medications ?Medication ?Instructions ?Recorded ?Confirmed ?Type atorvastatin 80 mg tablet 80 mg PO DAILY 06/19/23 02/28/25 History buspirone 15 mg tablet 15 mg PO BID 06/19/23 02/28/25 History gabapentin 300 mg capsule 300 mg PO QID 06/19/23 02/28/25 History metoprolol tartrate 25 mg tablet 12.5 mg PO Q12H 06/19/23 02/28/25 History temazepam 15 mg capsule 15 mg PO DAILY 06/19/23 02/28/25 History aspirin 81 mg tablet,delayed 81 mg PO DAILY 08/07/23 02/28/25 History release (Adult Aspirin Regimen) brinzolamide 1 %-brimonidine 0.2 % drp ophthalmic (eye) BID 08/07/23 History eye drops,suspension (Simbrinza) latanoprost 0.005 % eye drops drp ophthalmic (eye) QPM 08/07/23 History multivitamin (Daily Multi-Vitamin 1 tab PO DAILY 08/07/23 02/28/25 History tablet) ondansetron 4 mg disintegrating 4 mg PO Q6H PRN nausea and 08/23/23 02/28/25 Rx tablet vomiting #20 tabs sertraline 50 mg tablet 50 mg PO DAILY 02/21/25 02/28/25 History Allergies Allergy/AdvReac Type Severity Reaction Status Date / Time nirmatrelvir (From Paxlovid) Allergy mental Verified 02/28/25 12:00 status change ritonavir (From Paxlovid) Allergy mental Verified 02/28/25 12:00 status change Exam Narrative: Exam Narrative: Derm: Toenails are thickened, elongated, mycotic, and painful.? No evidence of paronychia.? Skin is diffusely dry, thin, and atrophic.?Hallux toenail on the left is absent. Vascular: DP and PT pulses are 2/4 bilaterally.? Capillary refill is less than 3 seconds to all toes. Digital hair is absent bilaterally. Neuro: Vibratory sensation is absent bilaterally.? Achilles deep tendon reflex is absent bilaterally.? Protective sensation was tested with a monofilament and is present in 2/5 areas tested on the right and 0/5 areas tested on the left.? Musculoskeletal: No gross deformity.? Strength 5/5 in all planes bilaterally Assessment and Plan Assessment and Plan (1) Other specified polyneuropathies: (2) Tinea unguium: Plan The patient's 9 remaining toenails were sharply debrided without incident. Follow-up in 3 months for routine nail care. Acute Procedures Podiatry Nail Debridement Class B Findings Advanced trophic changes as evidenced by any three of the following: decreased hair growth, nail changes (thickening) and skin texture (thin or shiny) Class C Findings Claudication: No Temperature changes: Yes Edema: No Nail debridement paresthesia (abnormal spontaneous sensations in the feet): Yes Burning: No Qualifies If: Qualifiers If:: A patient qualifies for nail debridement if they have: 1 class A finding (Q7) 2 class B findings (Q8) OR 1 class B & 2 class C findings in addition to a primary condition (Q9) Nail Procedure Nail Procedure Time out: Yes Nail procedure: other (Toenail debridement) Number of affected nails: 9 Location (toes): left and right Procedure successful: Yes Patient tolerated procedure: well and no complications Complications: other (tiny skin abrasion just proximal to the right 2nd toenail) Additional comments: All toenails with the exception of the left hallux nail which is absent were sharply debrided with nail nippers to the patient's satisfaction.
== END 2025-05-11 11:19 | disposition home or self-care (01) ==
LOC: WC 11:18
PROVIDERS: PCP Internal Medicine; Visit Provider Physician Assistant
DX: G62.89 Other specified polyneuropathies (principal); B35.1 Tinea unguium
CPT/HCPCS: 11721

== ENCOUNTER 2025-07-19 07:15 | Outpatient (OUT) | payer MEDICARE, SELFPAY ==
--- OUTSIDE RECORDS SUMMARY | 2025-07-18 19:08 | XMS_ITS | Continuity of Care Document ---
Author Organization [facility] Address [address] [place] [address] Phone Care Team Providers Care Network Consultant Name Role Phone Cisco Nicholson DO Primary Care Provider Cisco Nicholson DO Attending Provider [phone] Cisco Nicholson DO Other Provider Derrick Farooq MD Attending Provider Care Teams Patient Care Team Team Status: Active Member Role/Relationship Status Dates Cisco Nicholson DO Primary Care Provider Active Visit Care Team Team Status: Inactive Member Role/Relationship Status Dates Cisco Nicholson DO Primary Care Provider Active Start: May 05, 2025 End: May 05Enriqueta Medina ProviderActiveStart: May 05, 2025 End: May 05, 2025 Visit Care Team Team Status: Inactive Member Role/Relationship Status Dates Cisco Nicholson DO Primary Care Provider Active Start: July 18, 2025 End: July 18Enriqueta Medina ProviderActiveStart: July 18, 2025 End: July 18, 2025 Patient Care Team Team Status: Active Member Role/Relationship Status Dates Cisco Nicholson DO Primary Care Provider Active Start: July 18, 2025 Markel Adler ProviderActiveStart: July 18, 2025 Derrick Farooq MDAttmartir ProviderActiveStart: July 18, 2025 Chief Complaint and Reason for Visit Chief Complaint Admit Date 4 month f/u May 05, 2025 8:14am stomach issues July 18, 2025 1 1:31am Reason for Visit Admit Date Ascending aortic aneurysm April 8:14am ASHD (arteriosclerotic heart disease) Se ptember 2024 8:14am Chronic venous insufficiency of lower ex tremity May 05, 2025 8:14am GREYSON (generalized anxiety disorder) Septe mber 2024 8:14am Hypercholesteremia May 05, 2025 8:14am Hypertension May 05, 2025 8:14am Irritable bowel syndrome with constipati on May 05, 2025 8:14am Peripheral polyneuropathy April 8:14am Ulnar neuropathy at elbow of left upper extremity May 05, 2025 8:14am Ascending aortic aneurysm July 18, 2025 11:31am ASHD (arteriosclerotic heart disease) De cember 2024 11:31am Bradycardia July 18, 2025 1 1:31am Chronic venous insufficiency of lower ex tremity July 18, 2025 11:31am GREYSON (generalized anxiety disorder) Decem manasa 2024 11:31am Hypercholesteremia July 18, 2025 1 1:31am Hypertension July 18, 2025 1 1:31am Irritable bowel syndrome with constipati on July 18, 2025 11:31am Peripheral polyneuropathy July 18, 2025 11:31am Allergies, Adverse Reactions, Alerts Allergen Type Severity Reaction Last Updated Verified Status nirmatrelvir Adverse Reaction Moderate Confusion Decemb er 2024 11:36am Yes Active ritonavir Adverse Reaction Moderate Confusion July 18, 2025 11:36am Yes Active Social History Smoking Status Status Start Date End Date Date of Observa tion Ex-smoker (finding) October 26, 2024 2:00pm Observation Status Observation Response Date of Response Legal Sex [facility] (finding) [facility] Family History Relationship Condition Age at Onset Recorded Date/T loi father Myocardial infarction Unknown family memberMyocardial infarctionUnknownmotherMalignant neoplasmUnknownbrother Malignant neoplasmUnknownMyocardial infarctionUnknownDiabetes mellitusUnknown Cerebrovascular accident (CVA)UnknownfatherDeceasedUnknownfamily memberDeceased UnknownmotherDeceasedUnknown Problems Active Problems Problem Diagnosis/Recorded Date Onset Date Status C omments Peripheral polyneuropathy October 26, 2023 10:18pm Unknown Active Chronic venous insufficiency of lower extremityNovember 2023 12:38pm UnknownActiveMedicare annual wellness visit, subsequentJanuary 2024 10:56pmUnknownActivePrimary insomniaFebruary 2023 12:52pmUnknownActiveGAD (generalized anxiety disorder)October 26, 2023 10:17pmUnknownActiveScreening PSA (prostate specific antigen)January 20, 2024 12:16pmUnknownActiveDysfunction of right eustachian tubeJune 2024 8:10amUnknownActiveCarpal tunnel syndrome of left wristNovember 2023 12:43pmUnknownActiveBradycardiaDecember 2024 8:38pmUnknownActiveUlnar neuropathy at elbow of left upper extremityMay 2024 8:26amUnknownActiveCerebral atherosclerosisMarch 2023 3:27pm UnknownActiveHypercholesteremiaJanuary 2022 2:35pmUnknownActiveBenign prostatic hyperplasia with lower urinary tract symptomsJuly 2023 9:41am UnknownActiveAscending aortic aneurysmMay 2023 9:56amUnknownActiveEcho: 4.2cm - 12/2023, 3.8cm - 12/2024, 3.8cm - 7/2024H/O bilateral inguinal hernia repairMay 2024 8:10pmUnknownActiveInguinal hernia of right side without obstruction or gangreneMay 2024 8:11pmUnknownActiveGERD (gastroesophageal reflux disease)October 26, 2023 10:18pmUnknownActiveSNHL (sensorineural hearing loss)December 12, 2024 2:35pmUnknownActiveAbdominal painMay 2024 8:15pm UnknownActiveIrritable bowel syndrome with constipationMarch 2023 3:27pm UnknownActiveGlaucomaMarch 2023 3:27pmUnknownActiveHypertensionJanuary 9th, 2023 2:35pmUnknownActiveASHD (arteriosclerotic heart disease)November 27, 2023 7:50amUnknownActiveLHC: moderate LAD disease - 11/2016Echo: LVEF 60%, LITZY, normal RV size/function - 12/2023,Echo: LVEF 55%, normal RV size/function, RSVP 28 - 12/2024,Echo: LVEF 55-60%, LITZY, normal RV size/function, RVSP37 - 03/2025Stress Test NM: no fixed or reversible deficit, normal LVEF, no TID - 03/2025Inactive/Resolved Problems Problem Diagnosis/Recorded Date Onset Date Status C omments Lab test positive for detection of COVID-19 virus June 20, 2023 2:48am Unknown Resolved Proble m List clean-up per request of Phys. EHR Cmte Acute encephalopathy June 20, 2023 10:33am Unknown Resolved Problem List clean-up per request of Phys. EHR Cmte Adverse drug effect June 20, 2023 2:48am Unknown R esolved Problem List clean-up per request of Phys. EHR Cmte Numbness of left hand March 01, 2023 6:08am Unknown Re solved Problem List clean-up per request of Phys. EHR Cmte MCI (mild cognitive impairment) with memory loss June 21, 2023 5:49pm Unknown Resolved NeuropathyJuly 2022 8:55amUnknownResolvedViral syndromeNov2022 10:33amUnknownResolvedProblem List clean-up per request of Phys. EHR Cmte Bilateral leg painJuly 2022 6:08amUnknownResolvedProblem List clean-up per request of Phys. EHR CmteAltered mental statusJune 20, 2023 1:19amUnknown Resolved Medications Medication Status Dose Units Route Directions Qty Days Refills S tart Date Stop Date End Date Reason(s) Instructions Adherence Escitalopram Oxalate 10 mg tablet Discontinued 10 MG PO Daily 30 2 Sep ruary 2023 12:00am January 28, 2024 8:06amEscitalopram Oxalate 5 mg sxwzjdFblduumassio1SLYPRymlr2664 2March 2023 11:00pmJun2023 8:06amTake daily w/ 10mg doseMetoprolol Tartrate 25 mg bvkqvbIffckarworrs96.5MGPOTwice dailyApril 2023 12:42pm July 11, 2024 12:08pmTemazepam 15 mg shklquzStwaqrhyxeog39GXYUDnxft at rltzlxp65832Iryoqefyu 2023 6:33amFebruary 2024 1:11pmPrimary insomnia Primary insomniaBuspirone 15 mg tabletDiscontinued0.ROUTE.ELVDXAK8259Fjlbpkrke 2023 6:33amJuly 2024 8:38amTAKE 1 TABLET BY MOUTH TWICE DAILY Gabapentin 300 mg capsuleDiscontinued0.ROUTE.RESYUXX8394Giebvyds 2023 10:30amMarch 2024 12:08pmTAKE 1 CAPSULE BY MOUTH 4 TIMES DAILYMetoprolol Tartrate 25 mg biqrpfAhednf98.5MGPOTwice hhxhk37509Uuwvlzs 2024 8:35pm UnknownDoxycycline Hyclate 100 mg naycotjNlqiuytfzkoy717DNSPjtnvd39265Uplgyhrt 2024 11:15amMay 2024 7:28amTemazepam 15 mg aqjtajjPuvidlmbwlfg45JZYG Daily at uhmvznl26224Runcfpxc 2024 1:10pmOctober 2024 4:49pmPrimary insomnia Primary insomniaMupirocin 2 % wijcwbwlWozotaclyyko7UINMYQZFGXWKSHigac ozeha99742 October 10, 2024 5:08pmJuly 2024 10:24amSertraline 50 mg tablet Bumjuylcophm91WOVWNtefc85804Gmdz 2024 11:00pmJuly 2024 2:23pm Sertraline 50 mg uwttquQvzcjpzfqxug76TOQSJzsye77063Iasy 2024 2:23pmJuly 2024 2:02pmBuspirone 15 mg tabletDiscontinued7.5MGPOThree times nkgxo1640 February 23, 2025 8:37amJuly 2024 2:06pmOndansetron 4 mg tablet,yyterjxhkxbfuaKtxydd3EOVJYpfkp 8 hours as needed for nausea and vomiting 57927Ultb 2024 11:00pmUnknownDuloxetine 20 mg capsule,delayed release(DR/EC)Kbelbsonlhyd35JIKAUrfsu80215Lcic 2024 11:00pmJuly 2024 2:50pmBuspirone 10 mg pvvulmOtvgviepdccw75AKAIWqtjs times rihde80032Jmqh 2024 2:05pmAugust 2024 9:12amDuloxetine 20 mg capsule,delayed release(DR/EC)Oejrrplwcsai86PAJWKqqkl44824Maaz 2024 2:50pmAugust 2024 10:41amDuloxetine 20 mg capsule,delayed release(DR/EC)Nvkmohrzfknd12FAXN Ogqdk17394Yqkulj 2024 10:41amAugust 2024 9:12amDuloxetine 20 mg capsule,delayed release(DR/EC)Uxsrdq71FJGYGtbyx80165Mjvxwl 2024 9:10am UnknownBuspirone 10 mg narcxpHizmql10JPJQMqzgh times ypubg246494Plyxxb 22nd, 2025 9:11amUnknownTemazepam 15 mg dbgrkazDmgkgjlkjswi18XLUGUfgit at acikmqc75330 June 09, 2025 4:48pmOctober 2024 4:51pmPrimary insomnia Primary insomniaTemazepam 15 mg vqlbhtjSrhjonfdxivq55NXDJVrmiy at jwpokqe80875 June 09, 2025 4:51pmNovember 2024 8:55pmPrimary insomnia Primary insomniaTemazepam 15 mg yjffffpRqsxen92TYZMRhcjx at owmrpbf37488Qyhukmxt 12th, 2025 8:55pmPrimary insomnia Primary insomniaUnknownNirmatrelvir-Ritonavir (Paxlovid) 300 mg (150 mg x 2)-100 mg tablets,dose packDiscontinuedTABPONovember 2022 11:00pmNovember 2022 6:00pmTemazepam 15 mg deqmygkRoddnoridrsa69LPMOSreqbufNivtknfr 3rd, 2023 11:00pmFebruary 2023 12:53pmBuspirone 15 mg wankcyTkpbabxgltfw77UWXQMvdry dailyJune 19, 2023 11:00pmApril 2023 8:11amLatanoprost 0.005 % drops Mhlqvmbgxgsg9BWRRYTOY-LEUAQe DirectedJanuary 2022 12:00amJuly 2022 8:05amAtorvastatin 80 mg aabiviDhpfwt21LVLFPxfefQctvneg 2022 12:00amUnknown Temazepam 15 mg evsbyoaXhewujbuxeed25WRZZMqbggomAvpgwok 2022 12:00am November 2022 3:14amGabapentin 300 mg kwbwegoYxxtqosseqro469ZOLCZyocc times dailyJanuary 2022 12:00amJuly 2022 4:25pmBuspirone 15 mg Tablet Zudlhbrzjqsb06NOHPJudsjNkoswum 2022 12:00amJuly 2022 8:05amMetoprolol Tartrate 25 mg hpmkmqMrcsgjtlajon88KHHCWxwfhBivyxje 2022 12:00amApril 2023 5:07pmMultivitamin BawyugJfuzpw9SYQZFLskduEqhe 2022 11:00pmUnknown Metronidazole 250 mg RgahmtTsksjpopamyp770EIFOFtnf times dailyJuly 2022 11:00pmJuly 2022 4:23pmAspirin 81 mg Tablet,Delayed Release (Dr/Ec)Active 81MGPODailyJuly 2022 11:00pmUnknownPantoprazole 40 mg Tablet,Delayed Release (Dr/Ec)Lelxolaeruso35TZJARmpsqDghe 2022 11:00pmJuly 2024 10:26amBimatoprost 0.01 % NldwwFyqtktebotmp9VIYAFWSB-TLKIXiptkDykp 2022 11:00pmJuly 2024 10:24amBrinzolamide-Brimonidine 1-0.2 % Drops,Suspension Wvsiptwcuxlf8YTKUAYEA-PNADRaekn dailyJuly 2022 11:00pmJuly 2024 10:24amGabapentin 300 mg wzncylfKpdohfscqlxq981HWLKShgl times ajaan93280Rpmj 2022 4:25pmDecember 2023 10:30amBacitracin 500 unit/gram ointment Btpnxxiusxlt2UMXDCMXSHTLUSTPGGwfwfIplki 2023 11:00pmAugust 2023 8:19amTemazepam 15 mg ktptqvuVtyvzhpgeslg41BYNKAqkljsu87142Qlmtxryw 2023 12:52pmSeptember 2023 6:33amPrimary insomnia Primary insomniaDoxycycline Hyclate 100 mg clefmwqQihwqxabslxm849MGOCjwapg04964 September 14, 2024 12:00amFebruary 2024 10:10amMupirocin 2 % ointment Vkctpcfxwswb9XGDSSSPNHGIYMHtxyg ywhwp54277Wgnqfst 2024 9:00amFebruary 2024 10:10amGabapentin 300 mg capsuleActive0.ROUTE.HTDEYPE8106Umapm 2024 12:08pmTAKE 1 CAPSULE BY MOUTH 4 TIMES DAILYUnknownValacyclovir 1 gram tablet Qfqbavdzbcps2625AFZLJbvax times dozwo4849Epyfy 2024 11:00pmJuly 2024 9:18amBuspirone 15 mg bosozqEyjifserjgcd06IPWABqtuy trmro507885Usucr 2023 8:10amSeptember 2023 6:33amSulfamethoxazole-Trimethoprim 800-160 mg tablet Kwshiptwbiwh3PIEBDXgfxw hrakn5470Ipwlo 2023 11:00pmAugust 2023 8:20am Metoprolol Tartrate 25 mg katjacPqbgqvzwxmin54.5MGPOTwice gihyr82473Oneceeft 2023 12:00amJanuary 2024 8:35pmMupirocin 2 % ointmentDiscontinued1 APPLICTOPICALTwice xhhtt13207Gvyjamf 2024 12:00amJanuary 2024 9:01am Cephalexin 500 mg ferdqjlTiisbrxnmatc017MCCELtwos times mrtnw4366Vjfmrqb 2024 12:00amJanuary 2024 9:00amDoxycycline Hyclate 100 mg capsule Wkkhxbmurapz175MRPTswxxp90199Xmcznime 2024 10:10amFebruary 2024 11:16amMupirocin 2 % zifmsyrhDsbvfagmqecp4HLWJGBVHFOFYJJhiym hruji50459Dpbkyoqc 2024 10:10amFebruary 2024 5:92gqOexlrtpw-Xbdmeoizx-Az 3.5-10,000-1 mg/mL-unit/mL-% drops,vqugczvzxnUhgmvorzhkjh6TMNBRBCOIHwedj 8 sqjdy2663Fsxng 2024 11:00pmJuly 2024 9:18am Immunizations Immunization Event Date Not Given Reason Dose Number Reinsurance Analyst Lot Number Reason(s) Given Vaccine Information Statement (VIS) Detail Administration Location COVID-19 [facility], [employer] (170 Systems) September 15, 2020 DTap, unspecifiedAugust 2021Fluzone TIV High-Dose 65YR+May 04, 2024UT8437BAFPG [facility], unspecified formulationOctober 2014influenza, unspecified formulationOctober 2015influenza, unspecified formulationOctober 2017influenza, unspecified formulation June 01, 2019influenza, unspecified formulationOctober 2019influenza, unspecified formulationNovember 2020influenza, unspecified formulation June 05, 2022influenza, unspecified formulationNovember 2022 Pneumococcal Conjugate Vaccine, 13 valentApril 2015Pneumococcal Polysacc. Vaccine, 23 valentOctober 2012Tetanus, Diphtheria adult, 5 Lf pres free absOctober 2012Tetanus, Diphtheria adult, 5 Lf pres free absSeptember 2016 Vital Signs Vital Reading Result Reference Range Collection Date/Time Height 74 [in_i] May 05, 2025 7:40eaLalmhm31.94 kgSeptember 2024 7:34amHeart Rate62 /iyh41-306Tlvoopayy 19th, 2025 7:34amRespiratory rate12 /kmm30-99Djvjgrzlw 19th, 2025 7:34amBP Vhtmxafw546 mm[Hg]100-140September 2024 7:34amBP Netoftxzx42 mm[Hg]60-100September 2024 7:34amBMI (Body Mass Index)22.6 kg/p5Zktjugoav2024 7:45siGlmdzb91 [in_i]July 18, 2025 11:40amWeight 76.88 kgDecember 2024 11:40amHeart Rate64 /upo77-618HmvokomjJuly 18, 2025 11:40amRespiratory rate12 /vka35-67Upfjjcoh 2nd, 2025 11:40amBP Jzhydfyz974 mm[Hg]100-140Decemb2024 11:40amBP Ueisxckxw60 mm[Hg]60-100December 2024 11:40amBMI (Body Mass Index)21.7 kg/e2UvippjvzJuly 18, 2025 11:40am Advance Directives Advance Directive Response Recorded Date/ Time Advance Directives No October 26 025 1:00pm Insurance Providers Guarantor Yonatanravi Peterson Address [address] [address]Sqddkya Info.Home Phone: Payer Group Member ID Coverage Type Subscriber Relationship to Subscriber Effective Date Expiration Date Medicare [id number] A Evans Id: [id number] [address] [address] [address] Home Phone: [facility] [id number] A Evans Id: [id number] [address] [place] [id number] Home Phone: Sel Encounters Encounter Location(s) Arrival/Admit Date Discharge/Departure Date Discharge/Departure Disposition Provider(s) Departed Physician/ Provider Office Visit -[facility] May 05, 2025 8:14am May 05, 2025 9:17am Discharged to home care or self care (routine discharge) Cisco Nicholson DO Departed Physician/ Provider Office Visit -[facility] July 18, 2025 11:31am July 18, 2025 12:27pm Discharged to home care or self care (routine discharge) Cisco Nicholson DO Non-patient / Non-visit -[facility]2024 11:58am Derrick Farooq MD Recent Diagnosis Onset Date Admit Date Ascending aortic aneurysm Unknown Septem 2024 8:14am ASHD (arteriosclerotic heart disease) Unknown May 05, 2025 8:14am Chronic venous insufficiency of lower extremity Unknown May 05, 2025 8:14am GREYSON (generalized anxiety disorder) Unknown May 05, 2025 8:14am Hypercholesteremia Unknown April 8:14am Hypertension Unknown May 05, 2025 8:14am Irritable bowel syndrome with constipation Unkno wn May 05, 2025 8:14am Peripheral polyneuropathy Unknown Septem 2024 8:14am Ulnar neuropathy at elbow of left upper extremity Unknown May 05, 2025 8:14am Ascending aortic aneurysm Unknown Decemb er 2024 11:31am ASHD (arteriosclerotic heart disease) Unknown July 18, 2025 11:31am Bradycardia Unknown July 18 11:31am Chronic venous insufficiency of lower extremity Unknown July 18, 2025 11:31am GREYSON (generalized anxiety disorder) Unknown July 18, 2025 11:31am Hypercholesteremia Unknown July 18, 2025 11:31am Hypertension Unknown July 18 11:31am Irritable bowel syndrome with constipation Unkno wn July 18, 2025 11:31am Peripheral polyneuropathy Unknown Decemb er 2024 11:31am Assessments Diagnosis Onset Date Resolution Status Admit Date Ascending aortic aneurysm acuteSeptember 2024 8:14amASHD (arteriosclerotic heart disease)acute May 05, 2025 8:14amChronic venous insufficiency of lower extremityacute May 05, 2025 8:14amGAD (generalized anxiety disorder)acuteSeptember 2024 8:14amHypercholesteremiaacuteSeptember 2024 8:14amHypertension acuteSeptember 2024 8:14amIrritable bowel syndrome with constipationacute May 05, 2025 8:14amPeripheral polyneuropathyacuteSeptember 2024 8:14amUlnar neuropathy at elbow of left upper extremityacuteSept2024 8:14amAscending aortic aneurysmacuteDecember 2024 11:31amASHD (arteriosclerotic heart disease)acuteDecember 2025 11:31amBradycardiaacute July 18, 2025 11:31amChronic venous insufficiency of lower extremityacute July 18, 2025 11:31amGAD (generalized anxiety disorder)acuteJuly 18, 2025 11:31amHypercholesteremiaacuteDece2024 11:31amHypertensionacute July 18, 2025 11:31amIrritable bowel syndrome with constipationacute July 18, 2025 11:31amPeripheral polyneuropathyacuteDece2024 11:31am Plan of Treatment Author [facility] 6:00amI have instructed this patient to consume a healthy, low-fat, low-salt diet. I have also encouraged them to continue exercise with weight loss to achieve/maintain a BMI < 30. I have instructed this patient on the correct procedure for obtaining home BP measurements:? - rest for 5 minutes w/o talking. - positioned w/ feet on floor and arms supported. - average best 2/3 readings w/ goal < 135/85. - update office w/ home readings in 2 weeks. Continue Metoprolol without interruption This patient is stable without activity related chest pain, dyspnea or lightheadedness. I instructed them to continue exercise at least 3x weekly and consume a low salt, low fat, high fiber diet. I instructed them to continue secondary prevention measures in reducing risk for NE. LHC: moderate LAD disease - 11/2016 Echo: LVEF 60%, LITZY, normal RV size/function - 12/2023, Echo: LVEF 55%, normal RV size/function, RSVP 28 - 12/2024, Echo: LVEF 55-60%, LITZY, normal RV size/function, RVSP 37 - 03/2025 Stress Test NM: no fixed or reversible deficit, normal LVEF, no TID - 03/2025 Continue Metoprolol without interruption Continue strict control of SBP. Monitor at home weekly. Goal is < 140/90. Echo: 4.2cm - 12/2023, 3.8cm - 12/2024, 3.8cm - 02/2025 Serial Echo to monitor for any significant change in size. ER for severe chest pain I have instructed this patient on a low fat, high fiber diet and exercise. I have discussed the primary and secondary prevention benefits attributed to lowering LDL cholesterol. I have also discussed the medical treatment of elevated cholesterol, which is based on the 10 year ASCVD risk. Continue Atorvastatin without interruption Completed w/u with labs and Neurology evaluation. Continue w/ Gabapentin and consider Cymbalta? Fall precautions Instructed on a healthy diet and exercise routine. Instructed to continue medical treatment w/o interruption. Instructed to avoid abrupt d/c of medication due to w/d symptoms. Continue Buspar without interruption Instructed on healthy diet and exercise. Increase fiber Increase fluid intake Miralax and/or Senokot as needed Use Metamucil for IBS symptoms, constipation and incontinence. I have instructed this patient to avoid salt and elevate their lower extremities. I have also recommended use of support stockings. I instructed them to inspect their legs and feet daily for blisters and ulcerations. Wearing Tubigrips daily, which is comforting to his legs Symptoms are mild and intermittent. Denies neck or shoulder pain. Denies weakness. Monitor for now and avoid compression to the left elbow Author Cisco Nicholson [facility] 2024 8:42pmThis patient is stable without activity related chest pain, dyspnea or lightheadedness. I instructed them to continue exercise at least 3x weekly and consume a low salt, low fat, high fiber diet. I instructed them to continue secondary prevention measures in reducing risk for NE. LHC: moderate LAD disease - 11/2016 Echo: LVEF 60%, LITZY, normal RV size/function - 12/2023, Echo: LVEF 55%, normal RV size/function, RSVP 28 - 12/2024, Echo: LVEF 55-60%, LITZY, normal RV size/function, RVSP 37 - 03/2025 Stress Test NM: no fixed or reversible deficit, normal LVEF, no TID - 03/2025 Continue Metoprolol without interruption I have instructed this patient to consume a healthy, low-fat, low-salt diet. I have also encouraged them to continue exercise with weight loss to achieve/maintain a BMI < 30. I have instructed this patient on the correct procedure for obtaining home BP measurements:? - rest for 5 minutes w/o talking. - positioned w/ feet on floor and arms supported. - average best 2/3 readings w/ goal < 135/85. - update office w/ home readings in 2 weeks. Recommend holding Metoprolol Continue strict control of SBP. Monitor at home weekly. Goal is < 140/90. Echo: 4.2cm - 12/2023, 3.8cm - 12/2024, 3.8cm - 02/2025 Serial Echo to monitor for any significant change in size. ER for severe chest pain I have instructed this patient on a low fat, high fiber diet and exercise. I have discussed the primary and secondary prevention benefits attributed to lowering LDL cholesterol. I have also discussed the medical treatment of elevated cholesterol, which is based on the 10 year ASCVD risk. Continue Atorvastatin without interruption Completed w/u with labs and Neurology evaluation. Instructed on fall precautions. Continue Cymbalta and Gabapentin without interruption Instructed on a healthy diet and exercise routine. Instructed to continue medical treatment w/o interruption. Instructed to avoid abrupt d/c of medication due to w/d symptoms. Continue Buspar and Cymbalta without interruption Instructed on healthy diet and exercise. Increase fiber Increase fluid intake Senokot daily d/c Metamucil I have instructed this patient to avoid salt and elevate their lower extremities. I have also recommended use of support stockings. I instructed them to inspect their legs and feet daily for blisters and ulcerations. Wearing Tubigrips daily, which is comforting to his legs Push fluids Hold Metoprolol and monitor HR POC EKG: NSR w/o acute ST/T wave changes Update office in few days Future Tests Future scheduled test information is unavailable Pending Tests Test Name Ordered Date Scheduled Date Comprehensive Metabolic Panel July 18, 2025 12:20pm Future Visits Future appointment information is unavailable Future Procedures Procedure Name Ordered Date Scheduled Date Complete Blood Count Auto Diff July 18 12:20pm Thyroid Stimulating HormoneDecember 2024 12:20pm Future Medications Future medication information is unavailable Patient Instructions Patient instructions are unavailable
--- OUTSIDE RECORDS SUMMARY | 2025-07-19 07:20 | XMS_ITS | Clinical Summary ---
Author Organization [facility] Address [address] [place] [address] Phone Care Team Providers Care Director Of Clinical Applications Name Role Phone Cisco Nicholson DO Primary Care Provider [phone] Social History Tobacco UseTypesPacks/DayYears UsedDateSmoking Tobacco: Never AssessedSex and Gender InformationValueDate RecordedSex Assigned at BirthNot on fileLegal Sex Male03/04/2023 8:48 AM EDTGender IdentityNot on fileSexual OrientationNot on file Plan of Treatment Health MaintenanceDue DateLast DoneCommentsLipid Panel1943Yearly Adult Cjmchuro1943DTaP/Tdap/Td Vaccines (1 - Tdap)1965Pneumococcal Vaccine (1 of 1 - PCV)1993Zoster Vaccines (1 of 2)1993RSV High Risk: (Elderly (60+) or Population) (1 - 1-dose 75+ series)2018 Influenza Vaccine (#1)5COVID-19 Vaccine (1 - 2024-26 season)2025 HIB VaccinesAged OutNo longer eligible based on patient's age to complete this topicHPV VaccinesAged OutNo longer eligible based on patient's age to complete this topicHepatitis A VaccinesAged OutNo longer eligible based on patient's age to complete this topicHepatitis B VaccinesAged OutNo longer eligible based on patient's age to complete this topicIPV VaccinesAged OutNo longer eligible based on patient's age to complete this topicMeningococcal VaccineAged OutNo longer eligible based on patient's age to complete this topicRotavirus VaccinesAged Out No longer eligible based on patient's age to complete this topic Care Teams Team MemberRelationshipSpecialtyStart DateEnd Date Cisco Nicholson DO [facility] - Fttswgm03/04/23
--- OUTSIDE RECORDS SUMMARY | 2025-07-19 07:21 | XMS_ITS | Clinical Summary ---
Author Organization [employer] Address [id number] [place] [address] Care Team Providers Care Contract Analyst Name Role Phone Cisco Nicholson DO Primary Care Provider [phone] Allergies No known active allergies Medications MedicationSigDispense QuantityRefillsLast FilledStart DateEnd DateStatus aspirin 81 mg Take 81 mg by mouth daily.Active busPIRone (BUSPAR) 15 mg tablet Take 15 mg by mouth 2 (two) times a day.Active gabapentin (NEURONTIN) 300 mg capsule Take 300 mg by mouth 3 (three) times a day.Active temazepam (RESTORIL) 7.5 mg capsule Take 15 mg by mouth nightly as needed for sleep.Active latanoprost (XALATAN) 0.005 % ophthalmic solution 1 drop nightly.Active brimonidine (ALPHAGAN) 0.2 % ophthalmic solution 1 drop 2 (two) times a day.Active dtmiresp-eqcv-TH-calcium &mins (THERAGRAN-M) 9 mg iron-400 mcg tablet Take 1 tablet by mouth daily.Active metoprolol tartrate (LOPRESSOR) 25 mg tablet Take 12.5 mg by mouth 2 (two) times a day.Active atorvastatin (LIPITOR) 80 mg tablet Take 80 mg by mouth daily.Active Family History Medical HistoryRelationNameCommentsHeart diseaseFatherNo Known ProblemsMother RelationNameStatusCommentsFatherDeceasedMotherDeceased Social History Tobacco UseTypesPacks/DayYears UsedDateSmoking Tobacco: NeverSmokeless Tobacco: NeverAlcohol UseStandard Drinks/WeekCommentsNever0 (1 standard drink = 0.6 oz pure alcohol)AUDIT-CAnswerDate RecordedFrequency of Alcohol ConsumptionNever 09/26/2019Average Number of DrinksNot on file09/26/2019Frequency of Binge DrinkingNot on file09/26/2019ChildcareAnswerDate RecordedChildcareUnknown 09/26/2019EmploymentAnswerDate XxdjkkwuKvqgyxivrwIegxngw58/10/2020Purpose - Life AnswerDate RecordedPurpose and direction in osavCyzuxqm84/11/2021Sex and Gender InformationValueDate RecordedSex Assigned at BirthNot on fileLegal SexMale 09/26/2019 12:16 PM ESTGender IdentityNot on fileSexual OrientationNot on file Last Filed Vital Signs Vital SignReadingTime TakenCommentsBlood Ybyiyzyy783/8110/05/2019 2:40 PM EST Ksldm327110/05/2019 2:45 PM VNFWsamlmwmksl87.2 ??C (97.2 ??F)10/05/2019 1:10 PM ESTRespiratory Vsii588210/05/2019 2:45 PM ESTOxygen Zonytoxowf92%10/05/2019 2:45 PM ESTInhaled Oxygen Concentration--Nddgcd46.8 kg (220 lb)10/05/2019 10:27 AM FRYJuqrow067 cm (6' 2.02 )10/05/2019 10:27 AM ESTBody Mass Index28.23010/05/2019 10:27 AM EST Plan of Treatment Health MaintenanceDue DateLast DoneCommentsDepression Icedzapyq31/06/1955Tobacco Dbhcjwxej87/06/1955DTaP,Tdap and Td Vaccines (1 - Tdap)1962Zoster (Shingles) Vaccine (1 of 2)1993Fall Risk Kyougcpnb46/06/2008RSV ( or age 60+ yrs) (1 - 1-dose 75+ series)2018Influenza Aifuvqb6304/17/2025 Medical Devices ImplantedTypeAreaManufacturerDevice IdentifierShelf Expiration DateModel / Serial / LotAnch Sut 4.75mm 2 Healicoil - [id number] - [id number] Implanted:Qty: 1 on 10/05/2019 by [facility]: [employer] & [id number] / [id number] / [id number] Sut 4.75mm 2 Healicoil - [id number] - [id number] Implanted:Qty: 1 on 10/05/2019 by Heriberto Boykin DO [facility]: [employer] & [id number] / [id number] / [id number] Sut 4.75mm 2 Regenesorb - [id number] - [id number] Implanted:Qty: 1 on 10/05/2019 by Heriberto Boykin DO [facility]: [employer] & [id number] / [id number] / [id number] Sut 5.5mm Multifix S Ult Rpl [id number] - [id number] - [id number] Implanted:Qty: 1 on 10/05/2019 by [facility]: [employer]er[employer] & [id number] / [id number] / [id number] Sut 5.5mm Multifix S Ult Rpl [id number] - [id number] - [id number] Implanted:Qty: 1 on 10/05/2019 by Heriberto Boykin DO at [facility]: [employer] & [id number] / [id number] / [id number] Sut 5.5mm Multifix S Ult Rpl [id number] - [id number] - [id number] Implanted:Qty: 1 on 10/05/2019 by Heriberto Boykin DO [facility]: [employer] & [id number] / [id number] / [id number] Insurance Care Teams Team MemberRelationshipSpecialtyStart DateEnd Date Cisco Nichloson DO [address] [place] [address] PCP - GeneralInternal Medicine10/04/19
--- OUTSIDE RECORDS SUMMARY | 2025-07-19 07:21 | XMS_ITS | CCD ---
Author Organization [facility] Care Team Providers Care Water Treatment Specialist Name Role Phone MD Alek Oliva Attending Provider DO Cisco Mcadams Primary Care Provider [phone] MIGUEL ANGEL JACOBSEN Attending Unavailable ANN-MARIE, MIGUEL [...] Care Provider DO Alejo Lynn Emergency Provider [phone] MD Bobo Villagomez Admit Provider [phone] MD Bobo Villagomze Attending Provider [phone] MD Berhane Trammell Other Provider DO Cisco Mcadams Primary Care Provider MD Sandoval Palacios Jr Emergency Provider MD Warren Quiroz Admit Provider [phone] MD Warren Quiroz Attending Provider [phone] Cisco Mcadams Primary Care Unavailable Asaad, Imad Admitting Unavailable Asaad, Imad Attending Unavailable Cisco Mcadams Primary Care Unavailable Angely Lee Attending Unavailable Bobo Villagomez Admitting Unavailable Berhane Trammell Consulting Unavailable Berhane Trammell Consulting Unavailable Cisco Mcadams Primary Care Unavailable Warren Quiroz Admitting Unavailable Maren Petersen Attending Unavailable Cisco Mcadams Primary Care Unavailable PjDandren Admitting Unavailable PjDandre bustillosn Attending Unavailable CISCO MCADAMS Primary Care Physician [...] Care Provider Cisco Mcadams DO Attending Provider Anjelica Long MD Attending Provider [phone] Omid Lockhart DO Attending Provider [phone] Allergies Allergy ClassificationReported Allergen(s)Allergy TypeDate of OnsetReaction(s) Facility (20 sources)Ritonavir; Translations: [ritonavir]Drug Rwkbvnw76-88-5920[facility] ([facility])nirmatrelvir; Translations: [nirmatrelvir]Propensity to adverse gpaudegbh11-18-1270FoeqxjtkiOfroligycMer[facility] (1 source)No Known Medication Allergies; Translations: [No Known Medication Allergies]Propensity to adverse reactions (disorder)[facility] Repository Medications Current Medications MedicationDrug Class(es)DatesSig (Normalized)Sig (Original)aspirin 81 mg delayed release oral tablet (20 sources)Platelet Aggregation Inhibitor, Nonsteroidal Anti-inflammatory Drug Start: 95-38-6584onlb 1 tablet by mouth once dailyAspirin 81 mg Tablet,Delayed Release (Dr/Ec) Active 81 MG PO Daily March 01, 2023 12:00am Complieswith drug therapytake 1 tablet by mouth once dailyaspirin 81 MG chewable tablet Chew 1 tablet every day by oral route. ActiveBaby Aspirin Activeatorvastatin 80 mg oral tablet (20 sources)HMG-CoA Reductase InhibitorStart: 03-45-6207cbxc 1 tablet by mouth once dailyAtorvastatin 80 mg tablet Active 80 MG PO Daily August 25, 2022 1:00am Complies with drug therapyAtorvastatin Calcium ActiveBismuth (2 sources)Start: 03-99-2117azbx 2 tablets by mouth four times dailyBismuth 262 MG 2 tablets Orally Four times a day for 14 days Aug, Activebismuth subsalicylate 262 mg chewable tablet (20 sources)BismuthStart: 11-00-5936riaj 2 tablets by mouth every six hours Bismuth 262 MG 2 tablets Orally Four times a day for 14 days Aug, Active brimonidine tartrate 2 mg/ml ophthalmic solution (9 sources)alpha-Adrenergic Agonistbrimonidine (AlphaGAN P) 0.2 % ophthalmic solution every 12 (twelve) hours Activebrimonidine tartrate 2 mg/ml / brinzolamide 10 mg/ml ophthalmic suspension (20 sources)Carbonic Anhydrase Inhibitor, alpha-Adrenergic AgonistStart: 05-17-9587asmc 1 drop(s) into the eye(s) at bedtimeSimbrinza 1-0.2 % suspension Indications: Primary open angle glaucoma (POAG) of both eyes, moderatestage INSTILL 1 DROP INTO BOTH EYES IN THE MORNING AND BEFORE BEDTIME 24 mL 3 02/09/2025 ActiveStart: 07-28-2024 End: 11-04-4771rjqb 1 drop(s) into the eye(s) in the morningBrinzolamide- Brimonidine (Simbrinza) 1-0.2 % suspension Indications: Primary open angle glaucoma (POAG) of both eyes, moderate stage (CMS/HCC) Administer 1 drop into both eyes in the morning and 1 drop before bedtime. 16 mL 3 07/28/2024 10/26/2024 ActiveStart: 06-13-2024 End: 53-48-6228vphe 1 drop(s) into the eye(s) twice dailySimbrinza 1-0.2 % suspension Indications: Primary open angle glaucoma (POAG) of both eyes, moderatestage (CMS/HCC) INSTILL 1 DROP INTO BOTH EYES TWICE DAILY DIRECTED 16 mL 5 06/13/2024 07/28/2024iscontinued (Reorder)Start: 50-54-1565pgqx 1 drop(s) into the eye(s) twice dailySimbrinza 0.2%-1% ophthalmic suspension 1 drop(s), Eye-Both, BID, Refill(s) 0 Start Date: 07/28/23 Status: OrderedStart: 03-01-2023 End: 42-56-8979jvxr 1 drop(s) into the eye(s) twice dailyBrinzolamide- Brimonidine 1-0.2 % Drops,Suspension Discontinued 1 DROPS EYE-BOTH Twice daily March 01, 2023 12:00am February 14, 2025 11:24amStart: 57-91-9905qmdp 1 drop(s) into the eye(s) twice dailyBrinzolamide-Brimonidine 1-0.2 % Drops,Suspension Active 1 DROPS EYE-BOTH Twice daily March 01, 2023 12:00am End: 23-65-3008Sfhfwbvrj 1-0.2 % suspension 06/13/2024 Discontinuedbrinzolamide (20 sources)Carbonic Anhydrase InhibitorBrinzolamide ActivebusPIRone hydrochloride 10 mg oral tablet (20 sources)Start: 02-28-2025 End: 99-14-1851sviq 1 tablet by mouth three times dailyBuspirone 10 mg tablet Active 10 MG PO Three times daily 270 April 07, 2025 10:11am Complies with drug therapyStart: 02-23-2025 End: 01-49-4267spib 7.5 mg by mouth three times dailyBuspirone 15 mg tablet Discontinued 7.5 MG PO Three times daily February 23, 2025 9:37am February 28, 2025 3:06pmStart: 04-27-2024 End: 06-70-3158mnes 1 tablet by mouth twice dailyBuspirone 15 mg tablet Discontinued 0 .ROUTE .COMPLEX April 27, 2024 7:33am February 23, 2025 9:38am TAKE 1 TABLET BY MOUTH TWICE DAILYStart: 08-25-2022 End: 02-53-1933dtqt 1 tablet by mouth twice dailyBuspirone 15 mg tablet Discontinued 15 MG PO Twice daily November 27, 2023 9:10am April 27, 2024 7:33amStart: 08-25-2022 End: 84-82-7918jxdk 1 tablet by mouth once dailyBuspirone 15 mg Tablet Discontinued 15 MG PO Daily August 25, 2022 1:00am March 01, 2023 9:05am busPIRone HCl ActiveDULoxetine 20 mg delayed release oral capsule (4 sources)Serotonin and Norepinephrine Reuptake InhibitorStart: 02-28-2025 End: 81-41-2215gpfk 1 capsule by mouth once dailyDuloxetine 20 mg capsule,delayed release(DR/EC) Active 20 MG PO Daily April 07, 2025 10:10am Complies with drug therapyferrous sulfate (9 sources)take 1 tablet by mouth in the morningFerrous Sulfate (IRON PO) Take 1 tablet by mouth in the morning. Activegabapentin 300 mg oral capsule (20 sources)Anti-epileptic AgentStart: 07-28-2024 End: 19-31-7582lgzk 1 capsule by mouth four times dailyGabapentin 300 mg capsule Active 0 .ROUTE .COMPLEX 360 October 28, 2024 1:08pm TAKE 1 CAPSULE BY MOUTH 4 TIMES DAILY Complies with drug therapyStart: 08-25-2022 End: 20-30-5852ytnp 1 capsule by mouth three times dailyGabapentin 300 mg capsule Discontinued 300 MG PO Three times daily August 25, 2022 1:00am March 02, 2023 5:25pmStart: 08-04-2022 End: 67-34-9080ltou 1 capsule by mouth four times dailyGabapentin 300 mg capsule Discontinued 300 MG PO Four times daily 40 10 March 02, 2023 5:25pm July 28, 2024 11:30amGabapentin Activeirbesartan (20 sources)Angiotensin 2 Receptor BlockerIrbesartan Activelatanoprost 0.05 mg/ml ophthalmic solution (20 sources)Prostaglandin AnalogStart: 01-12-2025 End: 74-92-6367urld 1 drop(s) into the eye(s) at bedtimelatanoprost (Xalatan) 0.005 % ophthalmic solution Indications: Primary open angle glaucoma (POAG) of both eyes, moderate stage Administer 1 drop into both eyes at bedtime 7.5 mL 3 03/31/2025 06/29/2025 ActiveStart: 07-28-2023 End: 31-16-0750nqea 1 drop(s) into the eye(s) once dailylatanoprost (Xalatan) 0.005 % ophthalmic solution 1 drop into each eye Ophthalmic Once a day at night 07/28/2023 01/12/2025 Discontinued (Reorder)Start: 69-40-5550scsiexnvsax Opth 0.005% Nisa 1 drop(s), OPTH, Once a day (at bedtime), 2.5 mL, Refill(s) 0 Start Date: 07/28/23 Status: OrderedStart: 08-25-2022 End: 79-87-7896Wjlemnxzssw 0.005 % drops Discontinued 1 DROPS EYE-BOTH As Directed August 25, 2022 1:00am March 01, 2023 9:05amStart: 08-25-2022 End: 60-46-7703Ljrwgggyrhy 0.005 % drops Discontinued 1 DROPS EYE-BOTH As Directed August 25, 2022 1:00am March 01, 2023 9:05amStart: 08-25-2022 End: 11-03-9954Hjafajgxsxj Discontinued 1 DROPS EYE-BOTH As Directed August 25, 2022 1:00am March 01, 2023 9:05amMultivitamin preparation (11 sources)Start: 32-80-9885ckgd 1 tablet by mouth once dailymultivitamin 1 tab(s), Oral, Daily, Refill(s) 0 Start Date: 07/28/23 Status: OrderedStart: 71-79-5327idgi 1 tablet by mouth once dailyMultivitamin Active 1 TAB PO Daily March 01, 2023 12:00amMultivitamin Tablet (11 sources)Start: 48-92-0366jtxj 1 tablet by mouth once dailyMultivitamin Tablet Active 1 TAB PO Daily March 01, 2023 12:00am Complies with drug therapy Start: 12-36-7585plpi 1 tablet by mouth once dailyMultivitamin Tablet Active 1 TAB PO Daily March 01, 2023 12:00amStart: 63-12-6432vyvc 1 tablet by mouth once dailyMultivitamin Tablet Active 1 TAB PO Daily February 28, 2023 11:00pm ondansetron 4 mg disintegrating oral tablet (1 source)Serotonin-3 Receptor AntagonistStart: 82-37-8673ympj 1 tablet by mouth every eight hours as needed for nausea and vomitingOndansetron 4 mg tablet,disintegrating Active 4 MG PO Every 8 hours as needed for nausea and vomiting 08 15February 23, 2025 12:00am Complies with drug therapypaxlovid (300/100) 20 x 150 mg & 10 x 100mg tablet therapy pack (8 sources)take 3 tablets by mouth every twelve hoursPaxlovid (300/100) 20 x 150 MG & 10 x 100MG 3 tablets Orally Twice a day for 5 days ActivePaxlovid, 300/100, 20 x 150 MG & 10 x 100MG tablet therapy pack (9 sources)Start: 33-09-5738mbic 3 tablets by mouth twice dailyPaxlovid, 300/100, 20 x 150 MG & 10 x 100MG tablet therapy pack TAKE 3 TABLETS BY MOUTH TWICE ADAY FOR 5 DAYS 06/18/2023 ActiveRanitidine & Diet Manage Prod (20 sources)Ranitidine & Diet Manage Prod Activetetracycline hydrochloride 500 mg oral capsule (20 sources)Tetracycline-class AntimicrobialStart: 35-40-3203llvn 1 capsule by mouth four times dailyTetracycline HCl 500 MG 1 capsule on an empty stomach Orally 4 TIMES DAILY for 14 days Aug,ctive{20 (nirmatrelvir 150 MG Oral Tablet) / 10 (ritonavir 100 MG Oral Tablet) } Pack [Paxlovid 5-Day] (6 sources)take 3 tablets by mouth every twelve hoursPaxlovid (300/100) 20 x 150 MG & 10 x 100MG 3 tablets Orally Twice a day for 5 days Active Completed/Discontinued Medications MedicationDrug Class(es)DatesSig (Normalized)Sig (Original)bacitracin 0.5 unt/mg ophthalmic ointment (20 sources)Start: 10-27-2023 End: 04-70-9743Ipwqpljfpa 500 unit/gram ointment Discontinued 1 APPLIC OPHTHALMIC Daily October 27, 2023 12:00am March 19, 2024 9:19amStart: 46-92-8657Wxukqbfuaq 500 UNIT/GM 1 application Ophthalmic Once a day for 14 days Mar, ActiveBacitracin 500 UNIT/GM (20 sources)Start: 39-53-2428Doohplrjac 500 UNIT/GM 1 application Ophthalmic Once a day for 14 days Mar, Not-TakingStart: 39-65-0782Haohqjlhzi 500 UNIT/GM 1 application Ophthalmic Once a day for 14 days Mar, Active bimatoprost 0.1 mg/ml ophthalmic solution (20 sources)Prostaglandin AnalogStart: 03-01-2023 End: 69-44-9441mhrj 0.01 drop(s) into the eye(s) once dailyBimatoprost 0.01 % Drops Discontinued 1 DROPS EYE-BOTH Daily March 01, 2023 12:00am February 14, 2025 11:24amStart: 87-30-0507wprm 0.01 drop(s) into the eye(s) once dailyBimatoprost 0.01 % Drops Active 1 DROPS EYE-BOTH Daily March 01, 2023 12:00amStart: 26-86-0657tide 1 drop(s) into the eye(s) once dailyBimatoprost Active 1 DROPS EYE-BOTH Daily March 01, 2023 12:00amBimatoprost Activecephalexin 500 mg oral capsule (20 sources)Cephalosporin AntibacterialStart: 09-07-2024 End: 62-49-5264ssbk 1 capsule by mouth three times dailyCephalexin 500 mg capsule Discontinued 500 MG PO Three times daily 06 03September 07, 2024 1:00am September 14, 2024 10:00amStart: 34-17-9484mmiw 1 capsule by mouth twice daily Cephalexin 500 MG 1 capsule Orally twice daily for 5 days Nov, Active Start: 34-19-1202oexh 1 capsule by mouth every eight hoursCephalexin 500 MG 1 capsule Orally tid for 5 day(s) Mar, Activedoxycycline hyclate 100 mg oral capsule (20 sources)Tetracycline-class DrugStart: 09-14-2024 End: 88-39-2407vpoi 1 capsule by mouth once dailyDoxycycline Hyclate 100 mg capsule Discontinued 100 MG PO daily 05 26September 21, 2024 11:10am October 04, 2024 12:16pmescitalopram 5 mg oral tablet (20 sources)Serotonin Reuptake InhibitorStart: 11-10-2023 End: 89-77-0376hfgx 2 tablets by mouth once dailyEscitalopram Oxalate 5 mg tablet Discontinued 5 MG PO Daily November 10, 2023 12:00am January 28, 2024 9:06am Take daily w/ 10mg doseStart: 11-10-2023 End: 15-48-4708ahxt 10 mg by mouth once dailyEscitalopram Oxalate Discontinued 5 MG PO Daily November 10, 2023 12:00am January 28, 2024 9:06am Take daily w/ 10mg doseStart: 10-14-2023 End: 20-96-9079xfmo 1 tablet by mouth once dailyEscitalopram Oxalate 10 mg tablet Discontinued 10 MG PO Daily October 14, 2023 1:00am 2023 9:06amStart: 15-16-4694gmxn 1 tablet by mouth once at bedtimeEscitalopram Oxalate 5 MG 1 tablet Orally q HS for 30 days Sep, Activehydrocortisone 10 mg/ml / neomycin 3.5 mg/ml / polymyxin b 88546 unt/ml otic suspension (5 sources)Aminoglycoside Antibacterial, Polymyxin-class Antibacterial, CorticosteroidStart: 12-12-2024 End: 07-06-4893Iiftlnps-Polymyxin-Hc 3.5-10,000-1 mg/mL-unit/mL-% drops,suspension Discontinued 4 DROPS OTIC Every8 hours 10 7 December 12, 2024 12:00am February 14, 2025 10:18ammetoprolol tartrate 25 mg oral tablet (20 sources)beta-Adrenergic BlockerStart: 12-15-2023 End: 05-95-6225Ucmxkrfizt Tartrate 25 mg tablet Discontinued 12.5 MG PO Twice daily July 11, 2024 1:00am September 13, 2024 9:35pmStart: 22-37-8616utve 12.5 mg by mouth twice dailyMetoprolol Tartrate Active 12.5 MG PO Twice daily December 15, 2023 1:42pmStart: 65-19-9602cvfe 0.5 tablet by mouth twice dailymetoprolol tartrate (Lopressor) 25 MG tablet TAKE ONE-HALF TABLET BY MOUTH TWICE DAILY 10/20/2022 ActiveStart: 08-25-2022 End: 20-76-5931osxe 1 tablet by mouth once dailyMetoprolol Tartrate 25 mg tablet Discontinued 25 MG PO Daily August 25, 2022 1:00am December 15, 2023 6:07pm Start: 36-70-1915kubx 1 tablet by mouth every twelve hoursMetoprolol Tartrate 25 MG 1 tablet with food Orally Twice a day Aug, ActivemetroNIDAZOLE 250 mg oral tablet (20 sources)Nitroimidazole AntimicrobialStart: 09-03-2022 End: 81-10-7685ofdy 1 tablet by mouth four times dailyMetronidazole 250 mg Tablet Discontinued 250 MG PO Four times daily March 01, 2023 12:00am February 5:23pmmupirocin 0.02 mg/mg topical ointment (20 sources)RNA Synthetase Inhibitor AntibacterialStart: 09-07-2024 End: 89-80-4402Xiytpewvt 2 % ointment Discontinued 1 APPLIC TOPICAL Twice daily 07 06September 21, 2024 11:10am October 10, 2024 6:08pm Nirmatrelvir-Ritonavir (18 sources)Start: 06-20-2023 End: 28-51-4137Vxmhjgzfazly-Ritonavir (Paxlovid) 300 mg (150 mg x 2)-100 mg tablets,dose pack Discontinued TAB PO June 19, 2023 11:00pm June 22, 2023 6:00pmStart: 06-20-2023 End: 50-77-0797Eqwjevvfiqxy-Ritonavir (Paxlovid) 300 mg (150 mg x 2)-100 mg tablets,dose pack Discontinued TAB PO June 20, 2023 12:00am June 22, 2023 7:00pmStart: 59-01-8435Pethiixmpzsw-Ritonavir (Paxlovid) 300 mg (150 mg x 2)-100 mg tablets,dose pack Active TAB PO June 20, 2023 12:00ampantoprazole 40 mg delayed release oral tablet (20 sources)Proton Pump InhibitorStart: 89-38-4377ffbi 1 tablet by mouth twice dailyPantoprazole Sodium 40 MG 1 tablet Orally twice daily Aug, Active Start: 08-27-2022 End: 27-80-8498nfpd 1 tablet by mouth once dailyPantoprazole 40 mg Tablet,Delayed Release (Dr/Ec) Discontinued 40 MG PO Daily March 01, 2023 12:00am February 14, 2025 11:26amsertraline 50 mg oral tablet (2 sources)Serotonin Reuptake InhibitorStart: 02-14-2025 End: 50-19-2424lljz 1 tablet by mouth once dailySertraline 50 mg tablet Discontinued 50 MG PO Daily 30 February 15, 2025 3:23pm February 28, 2025 3:02pm sulfamethoxazole 800 mg / trimethoprim 160 mg oral tablet (17 sources)Dihydrofolate Reductase Inhibitor Antibacterial, Sulfonamide AntimicrobialStart: 11-06-2023 End: 46-58-5219ucxd 1 tablet by mouth twice dailySulfamethoxazole-Trimethoprim 800-160 mg tablet Discontinued 1 TAB PO Twice daily 27 02November 06, 2023 12:00am March 19, 2024 9:20amtemazepam 15 mg oral capsule (20 sources)BenzodiazepineStart: 08-19-2022 End: 31-81-9747jeoi 1 capsule by mouth at bedtimeTemazepam 15 mg capsule Discontinued 15 MG PO Bedtime 90 90 October 05, 2023 1:52pm April 27, 2024 7:33amTemazepam ActivevalACYclovir 1000 mg oral tablet (6 sources)Herpesvirus Nucleoside Analog DNA Polymerase Inhibitor, Herpes Simplex Virus Nucleoside Analog DNA Polymerase Inhibitor, Herpes Zoster Virus Nucleoside Analog DNA Polymerase InhibitorStart: 11-15-2024 End: 64-74-5620Ccemgamaquff 1 gram tablet Discontinued 1000 MG PO Three times daily 21 7 November 15, 2024 12:00am February 14, 2025 10:18am Problems Active Problems Problem ClassificationProblemDateDocumented DateEpisodic/ChronicAbdominal hernia (12 sources)Unilateral inguinal hernia, without obstruction or gangrene, not specified as recurrent; Translations: [Inguinal hernia]Onset: 64-35-5773Pjsyhxok Abdominal pain (20 sources)Right lower quadrant pain; Translations: [Abdominal pain]Episodic Anxiety disorders (20 sources)Generalized anxiety disorder; Translations: [Generalized anxiety disorder]ChronicAortic; peripheral; and visceral artery aneurysms (20 sources)Aneurysm of ascending aorta; Translations: [Ascending aortic aneurysm]Onset: [id number]io on above:Echo: 4.2cm - 12/2023 Echo: 4.2cm - 12/2023, 3.8cm - 12/2024Echo: 4.2cm - 12/2023, 3.8cm - 12/2024, 3.8cm - iliary tract disease (20 sources)Cholelithiasis without obstruction; Translations: [Calculus of gallbladder without cholecystitis without obstruction]EpisodicCataract (15 sources)Age-related nuclear cataract, right eye; Translations: [After- cataract of bilateral eyes]Onset: 58-34-6199TgovhcuFyipkkt obstructive pulmonary disease and bronchiectasis (4 sources)Emphysema, unspecified; Translations: [Pulmonary emphysema]Onset: 821825-41-6579AxqqjonZcbtbmi ulcer of skin (20 sources)Ulcer of lower extremity; Translations: [Non-pressure chronic ulcer of unspecified part of unspecified lower leg with unspecified severity] 11-64-1010UgmsvzdXhbtlqsjvd associated with dizziness or vertigo (4 sources)Dizziness and giddiness; Translations: [DIZZINESS AND GIDDINESS] Onset: 95-77-0458VhcciwxoHhcjehfk atherosclerosis and other heart disease (20 sources)Coronary arteriosclerosis; Translations: [Atherosclerotic heart disease of [place] coronary artery without angina pectoris]Onset: 12-13-2024 09-87-9650CezfrbcFulejvv on above:Echo: LVEF 60%, LITZY - 12/2023Echo: LVEF 60%, LITZY, normal RV size/function - 12/2024Echo: LVEF 60%, LITZY, normal RV size/function - 12/2023,Echo: LVEF 55%, normal RV size/function, RSVP28 - 12/2024 LHC: moderate LAD disease - 11/2016Echo: LVEF 60%, LITZY, normal RV size/function - 12/2023,Echo: LVEF 55%, normal RV size/function, RSVP 12/2024LHC: moderate LAD disease - 11/2016Echo: LVEF 60%, LITZY, normal RV size/function - 12/2023,Echo: LVEF 55%, normal RV size/function, RSVP 28 - 12/2024,Echo: LVEF 55-60%, LITZY, normal RV size/function, RVSP37 - 03/2025Stress Test NM: no fixed or reversible deficit, normal LVEF, no TID - rushing injury or internal injury (1 source)Traumatic pneumothorax, initial encounter; Translations: [TRAUMATIC PNEUMOTHORAX INITIAL ENC]Onset: 75-00-6247RruceikfEmkneubi of mouth; excluding dental (5 sources)Aphthous ulcer of mouth; Translations: [Recurrent oral aphthae] 30-33-1403AoyohnptBnnvhteeh of lipid metabolism (20 sources)Pure hypercholesterolemia, unspecified; Translations: [Familial hypercholesterolemia]Onset: 90-16-9592HqfoabcF Codes: Adverse effects of medical drugs (20 sources)Adverse reaction to drug; Translations: [Adverse effect of unspecified drugs, medicaments and biological substances, initial encounter] Onset: [id number] on above:Problem List clean-up per request of Phys. EHR CmteE Codes: Fall (2 sources)Fall in (into) shower or empty bathtub, subsequent encounter; Translations: [Fall in (into) shower or empty bathtub, initial encounter]Onset: 79-05-9752WifkgxhiBeglpzmxzr disorders (20 sources)Gastro-esophageal reflux disease with esophagitis; Translations: [Gastroesophageal reflux disease with esophagitis without hemorrhage]07-14-2023 ChronicEssential hypertension (20 sources)Essential (primary) hypertension; Translations: [Essential hypertension]Onset: 64-30-6270RrjqwzxHaaivsukxnwlw symptoms and ill-defined conditions (14 sources)Polyuria; Translations: [Polyuria]76-37-4735GknshuwcZsrmubys (20 sources)Primary open-angle glaucoma, right eye, moderate stage; Translations: [Glaucoma]Onset: 052526-54-9381IxqgihqQppfzvferkn of prostate (17 sources)Benign prostatic hyperplasia; Translations: [Benign prostatic hyperplasia with lower urinary tract symptoms]42-87-3384PughwmvPkzprxafazko conditions of male genital organs (2 sources)Acute prostatitis; Translations: [Acute prostatitis]11-06-2023 EpisodicIntestinal infection (20 sources)Infection caused by Helicobacter pylori; Translations: [Other specified bacterial intestinal infections]EpisodicMalaise and fatigue (1 source)Other fatigueEpisodicMiscellaneous mental health disorders (20 sources)Primary insomnia; Translations: [Primary insomnia]ChronicNonspecific chest pain (2 sources)Other chest pain; Translations: [Other chest pain]Onset: 02-23-2025 EpisodicOpen wounds of extremities (5 sources)Laceration without foreign body of left ring finger without damage to nail, initial encounter; Translations: [Laceration without foreign body of left elbow, initial encounter]Onset: 05-95-9125AesqtdysTokic aftercare (1 source)Other alf (current) drug therapy; Translations: [OTH [facility] CURRENT DRUG THERAPY]Onset: 02-10-3705KojdrhcyXjlzm aftercare (1 source)skilled nursing (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; Translations: [WARD AIDE CURRENT USE OF ASPIRIN]Onset: 81-18-9694DhnwvpxuFznbd and ill-defined cerebrovascular disease (20 sources)Cerebral atherosclerosis; Translations: [Cerebral atherosclerosis] 10-09-1953XbtoroqQenpe and ill-defined cerebrovascular disease (3 sources)Cerebral atherosclerosisChronicOther and unspecified benign neoplasm (20 sources)Adenomatous polyp of colon ; Translations: [Benign neoplasm of descending colon]61-71-0440MizpkelnAtduc connective tissue disease (17 sources)Pain in lower limb; Translations: [Pain in right leg]03-01-2023 EpisodicComment on above:Problem List clean-up per request of Phys. EHR Cmte Other connective tissue disease (8 sources)Swelling of bilateral lower limbs; Translations: [Other specified soft tissue disorders]48-89-7439QzpzxpjlXttxi connective tissue disease (16 sources)Other specified soft tissue disorders; Translations: [Swelling of limb]15-06-5335DoyefcqmGqaev connective tissue disease (2 sources)Pain in bilateral legs; Translations: [Pain in right leg]07-29-2023 EpisodicComment on above:Problem List clean-up per request of Phys. EHR Cmte Other diseases of veins and lymphatics (13 sources)Venous insufficiency of leg; Translations: [Venous insufficiency (chronic) (peripheral)]65-47-6661GonfqsvhNaaux diseases of veins and lymphatics (20 sources)Venous insufficiency (chronic) (peripheral); Translations: [Venous (peripheral) insufficiency, unspecified]59-69-9220RkpggkpxYwfeh ear and sense organ disorders (6 sources)Sensorineural hearing loss; Translations: [Unspecified sensorineural hearing loss]25-01-3484VrdinvtWdqeh ear and sense organ disorders (2 sources)Unspecified sensorineural hearing loss; Translations: [Sensorineural hearing loss, unspecified]75-90-1991PthshkxJrjxt ear and sense organ disorders (2 sources)Unspecified otitis externa, left ear; Translations: [Infective otitis externa, unspecified]42-73-1749QnkfhfuQqket ear and sense organ disorders (1 source)Otitis externa of left ear; Translations: [Unspecified otitis externa, left ear]50-69-3646InffjxlLugtx ear and sense organ disorders (4 sources)Impacted cerumen, unspecified ear; Translations: [Impacted cerumen] 96-70-9397UtgodujnEnhsl ear and sense organ disorders (2 sources)Otorrhagia, left ear; Translations: [Other otorrhea]12-12-2024 EpisodicOther ear and sense organ disorders (1 source)Otorrhagia of left ear; Translations: [Otorrhagia, left ear]12-12-2024 EpisodicOther fractures (1 source)Multiple fractures of ribs, right side, subsequent encounter for fracture with routine healing; Translations: [MX FX RIBS RT SIDE SUBSQT FX RTN] Onset: 93-01-0556UpqlnhuwFaoxj fractures (1 source)Multiple fractures of ribs, right side, initial encounter for closed fracture; Translations: [MX FXRIBS RT SIDE INITIAL CLOS FX]Onset: 07-01-2022 EpisodicOther gastrointestinal disorders (20 sources)Irritable bowel syndrome; Translations: [Irritable bowel syndrome without diarrhea]ChronicOther gastrointestinal disorders (1 source)Irritable bowel syndrome without diarrheaChronicOther gastrointestinal disorders (20 sources)Irritable bowel syndrome characterized by constipation; Translations: [Irritable bowel syndrome with constipation]40-92-7732TyslihuEysvm gastrointestinal disorders (16 sources)Irritable bowel syndrome with constipation; Translations: [Irritable bowel syndrome]ChronicOther hereditary and degenerative nervous system conditions (15 sources)Impaired cognition; Translations: [Mild cognitive impairment, so stated]ChronicOther hereditary and degenerative nervous system conditions (20 sources)Mild cognitive impairment, so stated; Translations: [Mild cognitive impairment with memory loss]Onset: 45-00-3084UotiuobRndyr infections; including parasitic (1 source)Personal history of other infectious and parasitic diseasesEpisodic Other lower respiratory disease (3 sources)Pleurodynia; Translations: [PLEURODYNIA]Onset: 82-50-2395Ltrvrgdb Other nervous system disorders (20 sources)Polyneuropathy; Translations: [Polyneuropathy, unspecified] 99-74-4306ZsyicvfXbbua nervous system disorders (20 sources)Polyneuropathy, unspecified; Translations: [Mononeuritis of unspecified site]Onset: 57-19-4565HqbxqieMojwh nervous system disorders (20 sources)Neuropathy; Translations: [Polyneuropathy, unspecified]Onset: 487820-10-4127QgwtopkZxzuj nervous system disorders (9 sources)Metabolic encephalopathy; Translations: [Metabolic encephalopathy] ChronicOther nervous system disorders (1 source)Metabolic encephalopathyChronicOther nervous system disorders (20 sources)Disorder of brain; Translations: [Encephalopathy, unspecified] 43-37-4507GjckrrtXeeyidi on above:Problem List clean-up per request of Phys. EHR CmteOther nervous system disorders (11 sources)Carpal tunnel syndrome of left wrist; Translations: [Carpal tunnel syndrome, left upper limb]87-47-4898OfwuahwCfsvi nervous system disorders (4 sources)Carpal tunnel syndrome, left upper limb; Translations: [Carpal tunnel syndrome]61-98-8867WchohmuOmojr nervous system disorders (6 sources)Lesion of ulnar nerve, left upper limb; Translations: [Ulnar neuropathy at elbow of left upper extremity]12-47-3282CmpvbnaBpxhi nervous system disorders (4 sources)Other disturbances of skin sensation; Translations: [OTHER DISTURBANCES SKIN SENSATION]Onset: 18-89-5152JxwpcxaaZbnrn nervous system disorders (19 sources)Numbness of hand; Translations: [Anesthesia of skin]03-01-2023 EpisodicComment on above:Problem List clean-up per request of Phys. EHR Cmte Other nervous system disorders (1 source)Unsteadiness on feet; Translations: [Unsteadiness on feet]Onset: 97-30-2003XhfiikxwBzhxy nutritional; endocrine; and metabolic disorders (3 sources)Abnormal weight loss; Translations: [ABNORMAL WEIGHT LOSS]Onset: 90-49-9591ZjsapcjsBavvi nutritional; endocrine; and metabolic disorders (20 sources)Weight loss; Translations: [Abnormal weight loss]EpisodicOther nutritional; endocrine; and metabolic disorders (20 sources)Loss of appetite; Translations: [Anorexia]EpisodicOther screening for suspected conditions (not mental disorders or infectious disease) (20 sources)Encounter for screening for malignant neoplasm of prostate; Translations: [Patient encounter status]Onset: 07-65-8815SqinlhfiNowmvy media and related conditions (3 sources)Dysfunction of right eustachian tube; Translations: [Unspecified Eustachian tube disorder, right ear]24-22-4996BxgofmmtFxprqncq; pneumothorax; pulmonary collapse (1 source)Pleural effusion, not elsewhere classified; Translations: [PLEURAL EFFUSION NEC]Onset: 02-05-8784LelsokelOwuqlzpn codes; unclassified (1 source)Disorientation, unspecifiedEpisodicResidual codes; unclassified (18 sources)Altered mental status; Translations: [Altered mental status, unspecified]91-26-1305UqxyxyboEmfapght codes; unclassified (2 sources)Altered mental status, unspecified; Translations: [Altered mental status]Onset: 635964-27-9477KzpvdqhfHhhbkjpf codes; unclassified (1 source)Other specified postprocedural states; Translations: [Other postprocedural status]21-54-4814ZedikfalXfgnzgchc and history of mental health and substance abuse codes (1 source)Personal history of nicotine dependence; Translations: [PERSONAL HISTORY OF NICOTINE DEPEND]Onset: 04-54-8373YnsvguznAcxegcjsu-related disorders (20 sources)Nicotine dependence, cigarettes, in remission; Translations: [Tobacco dependence in remission]Onset: 76-08-3154MgnoytfZxufeqt (2 sources)Syncope and collapse; Translations: [SYNCOPE AND COLLAPSE]Onset: 76-55-5731XzxdvddeBmqvbyggjybh (3 sources)CONTACT W/AND (SUSP) EXPOS COVID-19; Translations: [CONTACT W/AND (SUSP) EXPOS COVID-19]Onset: 54-45-8072Enpkxrisvrgx (1 source)Encephalopathy, unspecified; Translations: [Encephalopathy, unspecified]Onset: 49-36-3759Guopgrnmugjw (1 source)Other specified bacterial intestinal infections; Translations: [Other specified bacterial intestinal infections]Onset: 36-26-2989Ppexuvymvemr (3 sources)Body mass index 20-24 - ctjotl03-26-9888Rmino infection (20 sources)COVID-19; Translations: [Severe acute respiratory syndrome coronavirus 2 (SARS-CoV-2) detected]Onset: 134362-71-0390LfptnnhhKkmuspq on above:Problem List clean-up per request of Phys. EHR Cmte Past or Other Problems Problem ClassificationProblemDateDocumented DateEpisodic/ChronicBlindness and vision defects (20 sources)Other visual disturbances; Translations: [Visual hallucinations] Onset: 24-83-7839FxxpvxarW Codes: Cut/pierceb (1 source)Contact with other sharp object(s), not elsewhere classified, initial encounter; Translations: [[facility] OTH SHRP OB NOT ELSW CLASS INI]Onset: 04-01-2022 EpisodicEsophageal disorders (6 sources)Esophageal disordersImmunizations and screening for infectious disease (1 source)Encounter for immunization; Translations: [ENCOUNTER FOR IMMUNIZATION] Onset: 22-85-9282RryoogopMtuajnsnfate; infection of eye (except that caused by tuberculosis or sexually transmitteddisease) (11 sources)Blepharitis of upper and lower eyelids of bilateral eyes; Translations: [Unspecified blepharitis right eye, upper and lower eyelids]Onset: 770476-62-2859NhrfnjsyMtmzk connective tissue disease (2 sources)Pain in right leg; Translations: [Pain in limb]Onset: 03-01-2023 03-87-4636OhvsrgkhQwshm connective tissue disease (1 source)Pain in left leg; Translations: [Pain in left leg]Onset: 03-01-2023 EpisodicOther eye disorders (11 sources)Dry eyes; Translations: [Dry eye syndrome of bilateral lacrimal glands]Onset: 734358-03-3347HbsbaurqMxyny gastrointestinal disorders (5 sources)Change in bowel habit; Translations: [CHANGE IN BOWEL HABIT]Onset: 34-02-0177DkgdbvnaVojbo nervous system disorders (2 sources)Anesthesia of skin; Translations: [Disturbance of skin sensation] Onset: 953078-35-2023SogzmvsgHqfiu nutritional; endocrine; and metabolic disorders (1 source)Anorexia; Translations: [ANOREXIA]Onset: 45-38-1255Wgprlrwj Unclassified (1 source)CONTACT W/AND (SUSP) EXPOS COVID-19; Translations: [CONTACT W/AND (SUSP) EXPOS COVID-19]Onset: 69-79-8286Lvkth infection (5 sources)COVID-19; Translations: [COVID-19]Onset: 06-20-2023 Results Test NameValueInterpretationReference HfxkgZamuernl84ry 30-02-499199Hkeju with patient's and informed her of test results.NormalUniversity of Boston Medical Dfktau96yv 30-12-543634Wspgvgeze stress test from 2025: Betsy Chavez MD to Me 03/29/25 7:27 AM Please reassure him the stress test is normal Thanks. Can you take a look at the echo result before I call him please? Thank you! NormalSub[facility] & Brent[facility] HospitalOrders Onlyon 71-31-4726Qqbpyl Only [id number] Yonatan Patel 1945 M Date Provider Department Center 03/28/2025 [id number], HISTORICAL [facility] Family History Problem Relation Age of Onset Heart attack Father Heart attack Brother Family Status - Relation Status Age at Mother Father Sister Alive Brother DeceasedNormalUniKeenan Private HospitalOrders Onlyon 64-76-8994Akidlt [id number] Yonatan Patel 1945 M Date Provider Department Center 03/27/2025 [id number], HISTORICAL [facility] Family History Problem Relation Age of Onset Heart attack Father Heart attack Brother Family Status - Relation Status Age at Mother Father Sister Alive Brother DeceasedNormalUniKeenan Private HospitalBasophils Auto (Bld) [#/Vol]Ordered By: Omid Lockhart on 99-88-4356Sjyfftckb (Bld) [#/Vol]0.0 10 3/uL 0.0-0.1FUC HealthBasophils/100 WBC Auto (Bld)Ordered By: Omid Lockhart on 81-12-2672Jqqbjktei/100 WBC (Bld)0.5 %0.2-2.0[facility] HospitalEosinophils/100 WBC Auto (Bld)Ordered By: Omid Lockhart on 11-24-8364Xsxecqfgcma/100 WBC (Bld)0.5 %Low0.9-7.0[facility] HospitalErythrocyte distribution width Auto (RBC) [Ratio]Ordered By: Omid Lockhart on 57-90-7941Hmhorgljbzu distribution width (RBC) [Ratio]14.3 %11.0-15.0 [facility] HospitalGlobulin Calc (S) [Mass/Vol]Ordered By: Omid Lockhart on 21-22-8530Mibvteat (S) [Mass/Vol]3.1 g/dLMercy Health Urbana HospitalGlomerular filtration rate (GFR) estimation in non- AmericanOrdered By: Omid Lockhart on 02-30-5538HVA/1.73 sq M.predicted among non-blacks MDRD (S/P/Bld) [Vol rate/Area]mL/min/{1.73_m2}>=60 mL/min/1.73m 2FUC HealthHematocrit Auto (Bld) [Volume fraction]Ordered By: Omid Lockhart on 67-98-8155Csgzgpgfwq (Bld) [Volume fraction]43.6 %42.0-54.0[facility] HospitalHemoglobin [Mass/volume] in BloodOrdered By: Omid Lockhart on 35-48-9363Wdukheokyl (Bld) [Mass/Vol]14.7 g/dL14.0-18.0[facility] HospitalLaboratory - Chemistry and Chemistry - challengeOrdered By: Omid Lockhart on 59-06-7511Djgusombm Ql (U)NegativeNEGATIVEMercy Health Urbana HospitalGlucose (U) [Mass/Vol]NegativeNEGATIVEMercy Health Urbana HospitalKetones Ql (U)NegativeNEGATIVEMercy Health Urbana HospitalpH (U)7.0 [pH]5.0-9.0[facility] Hospitalpecific gravity (U) [Rel density] <=1.621Rxzyoqqq4.005-1.025[facility] HospitalUrobilinogen Qn (U) 0.2 {[place]'U}/dL0.2-1.0[facility] HospitalAlbumin [Mass/Vol]3.9 g/dL3.4-5.0[facility] HospitalALP [Catalytic activity/Vol]76 U/L 46-116[facility] HospitalALT [Catalytic activity/Vol]47 U/L16-63 [facility] HospitalAST [Catalytic activity/Vol]32 U/L15-37 [facility] HospitalBilirubin [Mass/Vol]2.4 mg/dLHigh0.2-1.0 [facility] CenterBilirubin.direct [Mass/Vol]0.3 mg/dLHigh0.0-0.2 [facility] HospitalCalcium [Mass/Vol]9.8 mg/dL8.5-10.1FUC HealthChloride [Moles/Vol]103 mmol/O25-797YhklqthdvMercy Health Urbana HospitalCO2 [Moles/Vol]25.6 mmol/L21.0-32.0[facility] HospitalCreatinine [Mass/Vol]0.84 mg/dL0.70-1.30[facility] GFR/1.73 sq M.predicted MDRD (S/P/Bld) [Vol rate/Area]mL/min/{1.73_m2}>=60 mL/min/1.73m 2FUC HealthGlucose [Mass/Vol]104 mg/xR25-587 [facility] HospitalPotassium [Moles/Vol]4.1 mmol/L3.5-5.1FUC HealthProtein [Mass/Vol]7.0 g/dL6.4-8.2FMemorial Health System Selby General Hospitalodium [Moles/Vol]137 mmol/B005-650DzuhczevmMercy Health Urbana HospitalUrea nitrogen [Mass/Vol]16.0 mg/dL7.0-18.0[facility] HospitalUrea nitrogen/Creatinine [Mass ratio]19.0 mg/mgMercy Health Urbana HospitalLaboratory - Hematology and Cell countsOrdered By: Omid Lockhart on 97-15-7161Qrfbjwzg granulocytes/100 WBC (Bld)1.0 %High0.0-0.5FUC HealthLaboratory - Specimen informationOrdered By: Omid Lockhart on 71-97-1982Mxtfifmkfx (U)CLEARCLEARFUC HealthColor (U)LT. YELLOWYELLOWMercy Health Urbana HospitalLaboratory - UrinalysisOrdered By: Omid Lockhart on 35-73-6893Kysrxtqux esterase Test strip Ql (U)NegativeNEGATIVE [facility] HospitalMucus Ql (Urine sed)NONE SEENNONE SEENMercy Health Urbana HospitalNitrite Ql (U)NegativeNEGATIVEMercy Health Urbana HospitalProtein Ql (U)NegativeNEG/TRACEMercy Health Urbana HospitalLeukocytes [#/volume] corrected for nucleated erythrocytes in Blood by Automated coun Ordered By: Omid Lockhart on 59-88-0709ZGD corrected for nucl RBC Auto (Bld) [#/Vol]6.0 10 3/uL4.0-11.0[facility] HospitalLymphocytes Auto (Bld) [#/Vol]Ordered By: Omid Lockhart on 30-40-6807Oipokexmskb (Bld) [#/Vol]1.3 10 3/uL1.2-3.8[facility] HospitalLymphocytes/100 WBC Auto (Bld) Ordered By: Omid Lockhart on 71-65-1310Xrvmuimsplg/100 WBC (Bld)21.7 %20.5-60.0 [facility] Auto (RBC) [Entitic mass]Ordered By: Omid Lockhart on 32-52-8749IXU (RBC) [Entitic mass]29.8 pg25.9-34.0[facility] HospitalMCHC Auto (RBC) [Mass/Vol]Ordered By: Omid Lockhart on 60-11-6781QWMQ (RBC) [Mass/Vol]33.7 g/dL29.9-35.2FUC HealthMCV Auto (RBC) [Entitic vol]Ordered By: Omid Lockhart on 16-71-4187EPC (RBC) [Entitic vol]88.4 fL80.0-94.0[facility] HospitalMonocytes Auto (Bld) [#/Vol]Ordered By: Omid Lockhart on 25-30-3974Nyalhumzx (Bld) [#/Vol] 0.6 10 3/uL0.3-0.8[facility] HospitalMonocytes/100 WBC Auto (Bld) Ordered By: Omid Lockhart on 26-09-5943Vrbtorjbx/100 WBC (Bld)9.2 %1.7-12.0 [facility] HospitalNeutrophils Auto (Bld) [#/Vol]Ordered By: Omid Lockhart on 91-21-1941Ejowswohwoa (Bld) [#/Vol]4.0 10 3/uL1.4-6.5FUC HealthNeutrophils/100 WBC Auto (Bld)Ordered By: Omid Lockhart on 75-76-2622Wmuwukvmfju/100 WBC (Bld)67.1 %43.0-75.0[facility] HospitalNo Panel InformationOrdered By: Omid Lockhart on 87-52-8241Lfubw Bacteria TRACE #/HPFAbnormalNONE SEENMercy Health Urbana HospitalUrine Occult Blood NegativeNEGATIVEMercy Health Urbana HospitalUrine Other CastsNONE SEEN #/LPFNONE SEENMercy Health Urbana HospitalUrine Other CrystalsNone Seen #/HPFNone SeenMercy Health Urbana HospitalUrine RBCNONE SEEN #/HPF0-2 [facility] HospitalUrine Squamous Epithelial CellsNONE SEEN #/LPF NONE/RAREMercy Health Urbana HospitalUrine WBCNONE SEEN #/HPFNONE SEEN [facility] HospitalEosinophils # (Auto)0.0 10 3/uL0.0-0.7FUC HealthImmature Granulocyte # (Auto)0.06 10 3/uLHigh0.00-0.03 [facility] HospitalTroponin I High Sensitivity6.9 pg/mL4.0-76.1 [facility] HospitalComment on above:CUT-OFF POINTS HAVE BEEN ESTABLISHED BASED ON THE FOURTHUNIVERSAL DEFINITION OF MYOCARDIAL INFARCTION. THE UPPERREFERENCE LIMIT (URL) OF TROPONIN, DEFINED THE 99THPERCENTILE OF cTnI DISTRIBUTION IN A REFERENCE POPULATION,HAS BEEN CONFIRMED THE DECISION THRESHOLD FOR MIDIAGNOSIS.99TH PERCENTILE = 76.2 PG/MLNOTE: HIGH-SENSITIVITY TROPONIN ASSAY IS NOT INTENDED TO BEUSED IN ISOLATION BUT SHOULD BE INTERPRETED IN CONJUNCTIONWITH OTHER DIAGNOSTIC AND CLINICAL INFORMATION.Platelet mean volume Auto (Bld) [Entitic vol]Ordered By: Omid Lockhart on 14-67-0936Cdaizabs mean volume (Bld) [Entitic vol]10.0 fL9.5-13.5[facility] Platelets Auto (Bld) [#/Vol]Ordered By: Omid Lockhart on 44-61-8922Tgpbljghz (Bld) [#/Vol]176 10 3/xJ777-259VkhrrzxgfMercy Health Urbana HospitalRBC Auto (Bld) [#/Vol]Ordered By: Omid Lockhart on 65-94-0553PDM (Bld) [#/Vol]4.93 10 6/uL 4.70-6.10[facility] Hospitalerum or plasma albumin/globulin mass ratioOrdered By: Omid Lockhart on 19-87-9749Ntuayub/Globulin [Mass ratio]1.3 {ratio}[facility] Hospitalerum or plasma anion gap determination Ordered By: Omid Lockhart on 66-97-8691Jicub gap [Moles/Vol]12.5 mmol/LFUC HealthOffice Visiton 17-00-0186Shnswd-up [id number] Yonatan Patel 1945 M Date Provider Department Center 02/23/2025 BETSY [facility]BERT CARD [facility] Family History Problem Relation Age of Onset Heart attack Father Heart attack Brother Family Status - Relation Status Age at Mother Father Sister Alive Brother Level of Service:82908 [place] OFFICE/OUTPATIENT ESTABLISHED MOD [facility] [#/Vol]Ordered By: Anjelica Long on 52-05-0459Ttgyoosjw (Bld) [#/Vol]0.0 10 3/uL0.0-0.1FUC HealthBasophils/100 WBC Auto (Bld)Ordered By: Anjelica Long on 00-10-1259Znfasnnho/100 WBC (Bld)0.6 %0.2-2.0[facility] Eosinophils/100 WBC Auto (Bld)Ordered By: Anjelica Long on 02-21-2025 Eosinophils/100 WBC (Bld)0.6 %Low0.9-7.0[facility] Erythrocyte distribution width Auto (RBC) [Ratio]Ordered By: Anjelica Long on 84-04-6989Jtgglsfgkzs distribution width (RBC) [Ratio]14.2 %11.0-15.0[facility] HospitalGlobulin Calc (S) [Mass/Vol]Ordered By: Anjelica Long on 28-69-0089Xfyhpxec (S) [Mass/Vol]3.0 g/dLMercy Health Urbana Hospital Glomerular filtration rate (GFR) estimation in non- AmericanOrdered By: Anjelica Long on 34-64-4238CSB/1.73 sq M.predicted among non-blacks MDRD (S/P/Bld) [Vol rate/Area]mL/min/{1.73_m2}>=60 mL/min/1.73m 2FUC HealthHematocrit Auto (Bld) [Volume fraction]Ordered By: Anjelica Long on 33-93-2906Xvcfzgiref (Bld) [Volume fraction]42.4 %42.0-54.0[facility] HospitalHemoglobin [Mass/volume] in BloodOrdered By: [facility] on 84-68-9153Wvhopktyos (Bld) [Mass/Vol]14.5 g/dL14.0-18.0[facility] HospitalLaboratory - Chemistry and Chemistry - challengeOrdered By: Anjelica Ethan on 87-94-7450Xubzmzw [Mass/Vol]3.9 g/dL3.4-5.0[facility] HospitalALP [Catalytic activity/Vol]74 U/W88-186BjlslqhjoMercy Health Urbana Hospital ALT [Catalytic activity/Vol]38 U/H22-52PlmlpydygMercy Health Urbana HospitalAST [Catalytic activity/Vol]31 U/F26-05HjsqplwvuMercy Health Urbana HospitalBilirubin [Mass/Vol]2.1 mg/dLHigh0.2-1.0[facility] HospitalCalcium [Mass/Vol]9.9 mg/dL8.5-10.1FUC HealthChloride [Moles/Vol] 105 mmol/F43-737XwdxlidugMercy Health Urbana HospitalCO2 [Moles/Vol]22.8 mmol/L 21.0-32.0[facility] HospitalCreatinine [Mass/Vol]1.09 mg/dL 0.70-1.30[facility] HospitalGFR/1.73 sq M.predicted MDRD (S/P/Bld) [Vol rate/Area]mL/min/{1.73_m2}>=60 mL/min/1.73m 2FUC HealthGlucose [Mass/Vol]107 mg/lBNnat71-839Mfviueryj [facility] Potassium [Moles/Vol]4.3 mmol/L3.5-5.1FUC HealthProtein [Mass/Vol]6.9 g/dL6.4-8.2FMemorial Health System Selby General Hospitalodium [Moles/Vol]141 mmol/Q408-364MobwbqhjvMercy Health Urbana HospitalUrea nitrogen [Mass/Vol]23.0 mg/dL High7.0-18.0[facility] HospitalUrea nitrogen/Creatinine [Mass ratio]21.1 mg/mgMercy Health Urbana HospitalLaboratory - Hematology and Cell countsOrdered By: Anjelica Long on 22-89-0696Sigycmlk granulocytes/100 WBC (Bld)0.3 %0.0-0.5FUC HealthLeukocytes [#/volume] corrected for nucleated erythrocytes in Blood by Automated counOrdered By: Anjelica Long on 77-12-4527QIC corrected for nucl RBC Auto (Bld) [#/Vol]7.2 10 3/uL4.0-11.0[facility] HospitalLymphocytes Auto (Bld) [#/Vol] Ordered By: Anjelica Long on 54-01-5654Efbhynsbuhe (Bld) [#/Vol]1.0 10 3/uLLow 1.2-3.8[facility] HospitalLymphocytes/100 WBC Auto (Bld)Ordered By: Anjelica Long on 73-11-1772Igszalxfpoq/100 WBC (Bld)14.4 %Low20.5-60.0 [facility] Auto (RBC) [Entitic mass]Ordered By: Anjelica Long on 33-35-5802XNG (RBC) [Entitic mass]30.0 pg25.9-34.0[facility] HospitalMCHC Auto (RBC) [Mass/Vol]Ordered By: Anjelica Long on 02-21-2025 MCHC (RBC) [Mass/Vol]34.2 g/dL29.9-35.2FUC HealthMCV Auto (RBC) [Entitic vol]Ordered By: Anjelica Long on 63-39-7011JCM (RBC) [Entitic vol] 87.8 fL80.0-94.0[facility] HospitalMonocytes Auto (Bld) [#/Vol] Ordered By: Anjelica Ethan on 54-89-9883Xkubasarx (Bld) [#/Vol]0.8 10 3/uL0.3-0.8 [facility] HospitalMonocytes/100 WBC Auto (Bld)Ordered By: Anjelica Ethan on 31-04-8281Rasnylusq/100 WBC (Bld)10.9 %1.7-12.0[facility] HospitalNeutrophils Auto (Bld) [#/Vol]Ordered By: Anjelica Ethan on 50-44-4208Jnbmmqkjwqf (Bld) [#/Vol]5.2 10 3/uL1.4-6.5FUC HealthNeutrophils/100 WBC Auto (Bld)Ordered By: Anjelica Ethan on 02-21-2025 Neutrophils/100 WBC (Bld)73.2 %43.0-75.0[facility] HospitalNo Panel InformationOrdered By: [facility] on 87-55-8293Efdahipclkz # (Auto)0.0 10 3/uL0.0-0.7FUC HealthImmature Granulocyte # (Auto)0.02 10 3/uL0.00-0.03[facility] HospitalTroponin I High Sensitivity7.0 pg/mL4.0-76.1FUC HealthComment on above:CUT-OFF POINTS HAVE BEEN ESTABLISHED BASED ON THE FOURTHUNIVERSAL DEFINITION OF MYOCARDIAL INFARCTION. THE UPPERREFERENCE LIMIT (URL) OF TROPONIN, DEFINED THE 99THPERCENTILE OF cTnI DISTRIBUTION IN A REFERENCE POPULATION,HAS BEEN CONFIRMED THE DECISION THRESHOLD FOR MIDIAGNOSIS.99TH PERCENTILE = 76.2 PG/MLNOTE: HIGH-SENSITIVITY TROPONIN ASSAY IS NOT INTENDED TO BEUSED IN ISOLATION BUT SHOULD BE INTERPRETED IN CONJUNCTIONWITH OTHER DIAGNOSTIC AND CLINICAL INFORMATION.Platelet mean volume Auto (Bld) [Entitic vol]Ordered By: Anjelica Long on 90-77-6320Himqdnnk mean volume (Bld) [Entitic vol]10.1 fL9.5-13.5FUC HealthPlatelets Auto (Bld) [#/Vol]Ordered By: Anjelica Long on 13-67-9768Zvewgyljl (Bld) [#/Vol]187 10 3/cM252-787RamsbliayMercy Health Urbana HospitalRBC Auto (Bld) [#/Vol]Ordered By: Anjelica Long on 23-12-7474OQS (Bld) [#/Vol]4.83 10 6/uL4.70-6.10[facility] Hospitalerum or plasma albumin/globulin mass ratioOrdered By: Anjelica Long on 27-67-4666Tbamrpg/Globulin [Mass ratio]1.3 {ratio}[facility] Hospitalerum or plasma anion gap determinationOrdered By: Anjelica Long on 10-11-2395Wuiue gap [Moles/Vol]17.5 mmol/LFUC HealthActivated partial thromboplastin time (aPTT) in platelet poor plasma by coagulation aOrdered By: Natalie Dunn on 89-87-7914aQDQ Coag (PPP) [Time]27.6 s22.3-36.2[facility] Basophils Auto (Bld) [#/Vol]Ordered By: Natalie Dunn on 98-80-0587Tdmdfzywi (Bld) [#/Vol]0.0 10 3/uL0.0-0.1FUC HealthBasophils/100 WBC Auto (Bld)Ordered By: Natalie Dunn on 47-19-6362Hupwpckit/100 WBC (Bld)0.5 %0.2-2.0 [facility] HospitalEosinophils/100 WBC Auto (Bld)Ordered By: Natalie Dunn on 25-62-1004Itctebriykq/100 WBC (Bld)1.0 %0.9-7.0[facility] HospitalErythrocyte distribution width Auto (RBC) [Ratio]Ordered By: Natalie Dunn on 44-53-2943Ebsdpivhtzp distribution width (RBC) [Ratio]14.2 %11.0-15.0 [facility] HospitalEstimated glomerular filtration rate (GFR) non- AmericanOrdered By: Cisco Mcadams on 59-49-2086AMX/1.73 sq M.predicted among non-blacks MDRD (S/P/Bld) [Vol rate/Area]mL/min/{1.73_m2}>=60 mL/min/1.73m 2FUC HealthGlobulin Calc (S) [Mass/Vol]Ordered By: iCsco Mcadams on 38-28-1024Oqbaclqx (S) [Mass/Vol]3.0 g/dLMercy Health Urbana HospitalHematocrit Auto (Bld) [Volume fraction]Ordered By: Natalie Dunn on 64-93-7315Vopxcmwqia (Bld) [Volume fraction]43.0 %42.0-54.0[facility] HospitalHemoglobin [Mass/volume] in BloodOrdered By: Natalie Dunn on 05-55-7872Czoqihjctl (Bld) [Mass/Vol]14.7 g/dL14.0-18.0[facility] HospitalINR in Platelet poor plasma by Coagulation assayOrdered By: Natalie Dunn on 48-13-1706YTX Coag (PPP) [Relative time]1.08 {INR}[facility] HospitalComment on above:DESIRED INR:2.0-3.0 CONDITIONS NOT LISTED BELOW2.5-3.5 FOR PROSTHETIC HEART VALVE REPLACEMENT2.5-3.5 RECURRENT THROMBOSIS Laboratory - Chemistry and Chemistry - challengeOrdered By: Natalie Dunn on [id number] Ql (U)NegativeNEGATIVEMercy Health [facility] Hospital Glucose (U) [Mass/Vol]NegativeNEGATIVEMercy Health Urbana HospitalKetones Ql (U)NegativeNEGATIVEMercy Health Urbana HospitalpH (U)7.5 [pH]5.0-9.0 [facility]pecific [facility] (U) [Rel density]1.015 1.005-1.025[facility] HospitalUrobilinogen Qn (U)0.2 {[place]'U}/dL0.2-1.0[facility] HospitalNatriuretic peptide B (Bld) [Mass/Vol]299.0 pg/mL<=1800.0[facility] HospitalLaboratory - Chemistry and Chemistry - challengeOrdered By: Cisco Mcadams on 02-12-2025 Albumin [Mass/Vol]3.9 g/dL3.4-5.0[facility] [facility] HospitalALP [Catalytic activity/Vol]75 U/Y60-911XpmkvkifuMercy Health Urbana HospitalALT [Catalytic activity/Vol]44 U/W11-15HtcwcsnulMercy Health Urbana HospitalAST [Catalytic activity/Vol]38 U/UNzhy51-02UxvxccwtnMercy Health Urbana HospitalBilirubin [Mass/Vol]1.5 mg/dLHigh0.2-1.0[facility] HospitalCalcium [Mass/Vol]9.9 mg/dL8.5-10.1FUC HealthChloride [Moles/Vol] 106 mmol/Q81-375MezcekxtaMercy Health Urbana HospitalCO2 [Moles/Vol]22.4 mmol/L 21.0-32.0[facility] HospitalCreatinine [Mass/Vol]1.08 mg/dL 0.70-1.30[facility] HospitalGFR/1.73 sq M.predicted MDRD (S/P/Bld) [Vol rate/Area]mL/min/{1.73_m2}>=60 mL/min/1.73m 2FUC HealthGlucose [Mass/Vol]106 mg/qI17-532VmeqhlehsMercy Health [facility] Hospital Potassium [Moles/Vol]4.2 mmol/L3.5-5.1FUC HealthProtein [Mass/Vol]6.9 g/dL6.4-8.2FMemorial Health System Selby General Hospitalodium [Moles/Vol]142 mmol/F899-005UolzxvwnjMercy Health Urbana HospitalUrea nitrogen [Mass/Vol]22.0 mg/dL High7.0-18.0[facility] HospitalUrea nitrogen/Creatinine [Mass ratio]20.4 mg/mgMercy Health Urbana HospitalLaboratory - Hematology and Cell countsOrdered By: Natalie Dunn on 81-20-5380Vcviwnel granulocytes/100 WBC (Bld)0.2 %0.0-0.5FUC HealthLaboratory - Specimen informationOrdered By: Natalie Dunn on 37-88-8810Xmybhoxlkj (U)CLEARCLEARFUC HealthColor (U)LT. YELLOWYELLOWMercy Health Urbana HospitalLaboratory - UrinalysisOrdered By: Natalie Dunn on 41-65-2947Lkvccribl esterase Test strip Ql (U)NegativeNEGATIVEMercy Health Urbana HospitalMucus Ql (Urine sed)NONE SEENNONE SEENMercy Health Urbana HospitalNitrite Ql (U) NegativeNEGATIVEMercy Health [facility] HospitalProtein Ql (U)NegativeNEG/TRACE [facility] HospitalLeukocytes [#/volume] corrected for nucleated erythrocytes in Blood by Automated counOrdered By: Natalie Dunn on 12-04-4061NFB corrected for nucl RBC Auto (Bld) [#/Vol]6.0 10 3/uL4.0-11.0[facility] HospitalLymphocytes Auto (Bld) [#/Vol]Ordered By: Natalie Dunn on 02-12-2025 Lymphocytes (Bld) [#/Vol]1.5 10 3/uL1.2-3.8[facility] Lymphocytes/100 WBC Auto (Bld)Ordered By: Natalie Dunn on 23-04-3357Mtbzqmiykxa/100 WBC (Bld)24.4 %20.5-60.0[facility] Auto (RBC) [Entitic mass]Ordered By: Natalie Dunn on 67-64-5215BOI (RBC) [Entitic mass]29.9 pg 25.9-34.0[facility] HospitalMCHC Auto (RBC) [Mass/Vol]Ordered By: Natalie Dunn on 34-66-9123XTEW (RBC) [Mass/Vol]34.2 g/dL29.9-35.2FUC HealthMCV Auto (RBC) [Entitic vol]Ordered By: Natalie Dunn on 02-12-2025 MCV (RBC) [Entitic vol]87.6 fL80.0-94.0[facility] Monocytes Auto (Bld) [#/Vol]Ordered By: Natalie Dunn on 08-84-6126Pzocxatwx (Bld) [#/Vol]0.7 10 3/uL0.3-0.8[facility] HospitalMonocytes/100 WBC Auto (Bld)Ordered By: Natalie Dunn on 44-41-6249Tublahnec/100 WBC (Bld)10.9 %1.7-12.0 [facility] HospitalNeutrophils Auto (Bld) [#/Vol]Ordered By: Natalie Dunn on 18-49-6161Icybpllzxoi (Bld) [#/Vol]3.8 10 3/uL1.4-6.5FUC HealthNeutrophils/100 WBC Auto (Bld)Ordered By: Natalie Dunn on 02-12-2025 Neutrophils/100 WBC (Bld)63.0 %43.0-75.0[facility] HospitalNo Panel InformationOrdered By: Natalie Dunn on 46-71-4401Olbjk BacteriaTRACE #/HPF AbnormalNONE SEENMercy Health Urbana HospitalUrine Occult BloodNegative NEGATIVEMercy Health Urbana HospitalUrine Other CastsNONE SEEN #/LPFNONE SEENMercy Health Urbana HospitalUrine Other CrystalsNone Seen #/HPFNone SeenMercy Health Urbana HospitalUrine RBCNONE SEEN #/HPF0-2FUC HealthUrine Squamous Epithelial CellsRARE #/LPFNONE/RARE [facility] HospitalUrine WBC0-2 #/HPFAbnormalNONE SEENMercy Health U[facility]ana HospitalEosinophils # (Auto)0.1 10 3/uL0.0-0.7FUC HealthImmature Granulocyte # (Auto)0.01 10 3/uL0.00-0.03[facility] HospitalTroponin I High Sensitivity7.3 pg/mL4.0-76.1FUC HealthComment on above:CUT-OFF POINTS HAVE BEEN ESTABLISHED BASED ON THE FOURTHUNIVERSAL DEFINITION OF MYOCARDIAL INFARCTION. THE UPPERREFERENCE LIMIT (URL) OF TROPONIN, DEFINED THE 99THPERCENTILE OF cTnI DISTRIBUTION IN A REFERENCE POPULATION,HAS BEEN CONFIRMED THE DECISION THRESHOLD FOR MIDIAGNOSIS.99TH PERCENTILE = 76.2 PG/MLNOTE: HIGH-SENSITIVITY TROPONIN ASSAY IS NOT INTENDED TO BEUSED IN ISOLATION BUT SHOULD BE INTERPRETED IN CONJUNCTIONWITH OTHER DIAGNOSTIC AND CLINICAL INFORMATION.Platelet mean volume Auto (Bld) [Entitic vol]Ordered By: Natalie Dunn on 79-21-4801Ltuawfzj mean volume (Bld) [Entitic vol]10.1 fL9.5-13.5[facility] Health Platelets Auto (Bld) [#/Vol]Ordered By: Natalie Dunn on 35-28-0053Fjdomgrtk (Bld) [#/Vol]179 10 3/hF774-370EpgtoigqjMercy Health Urbana HospitalProthrombin time (PT) Ordered By: Natalie Dunn on 66-03-0440PG Coag (PPP) [Time]11.4 s9.0-11.6FUC HealthRBC Auto (Bld) [#/Vol]Ordered By: Natalie Dunn on 02-12-2025 RBC (Bld) [#/Vol]4.91 10 6/uL4.70-6.10[facility] Hospitalerum or plasma albumin/globulin mass ratioOrdered By: Cisco Mcadams on 02-12-2025 Albumin/Globulin [Mass ratio]1.3 {ratio}[facility] Hospitalerum or plasma anion gap determinationOrdered By: Cisco Mcadams on 79-95-0210Qcidh gap [Moles/Vol]17.8 mmol/LFUC HealthEstimated glomerular filtration rate (GFR) non- Americanon 36-16-9633GVL/1.73 sq M.predicted among non-blacks MDRD (S/P/Bld) [Vol rate/Area]Estimated glomerular filtration rate (GFR) non->=60 mL/min/1.73m [address] [place], [place] [address]GFR/1.73 sq M.predicted among non-blacks MDRD (S/P/Bld) [Vol rate/Area] mL/min/{1.73_m2}>=60 mL/min/1.[address]m [address] [place], [place] [address]Laboratory - Chemistry and Chemistry - challengeon 45-70-1439Zgczbhyeen [Mass/Vol]0.86 mg/dL 0.70-1.30[facility] HospitalGFR/1.73 sq M.predicted MDRD (S/P/Bld) [Vol rate/Area]mL/min/{1.73_m2}>=60 mL/min/1.[address]m [address] [place], [place] [address]Office Visiton 53-11-6904Pkbudp-up [id number] Ynoatan Patel 1945 M Date Provider Department Center 12/13/2024 Jose-BETSY CHAVEZ C[facility] Family History Problem Relation Age of Onset Heart attack Father Heart attack Brother Family Status - Relation Status Age at Mother Father Sister Alive Brother Level of Service:17818 [place] OFFICE/OUTPATIENT ESTABLISHED MOD [facility] [#/Vol]on 09-02-2024 Basophils (Bld) [#/Vol]Automated basophil count0.0-0.1FUC HealthBasophils/100 WBC Auto (Bld)on 25-55-4471Icsbtiugg/100 WBC (Bld)Automated basophil %0.2-2.0[facility] HospitalCholesterol in LDL Calc [Mass/Vol]on 39-88-8176Cxpwuomkbem in LDL [Mass/Vol]Cholesterol in LDL [Mass/volume] in Serum or Plasma by calculationMercy Health [facility] Hospital Comment on above:<100 mg/dl HLGXBDS644-603 mg/dl NEAR OR ABOVE XPSHGWE224-265 mg/dl BORDERLINE FZCW393-077 mg/dl HIGH>190 mg/dl VERY HIGHCholesterol in VLDL Calc [Mass/Vol]on 60-96-3067Efbknawtkdg in VLDL [Mass/Vol]Cholesterol in VLDL [Mass/volume] in Serum or Plasma by calculationMercy Health [facility] Hospital Eosinophils/100 WBC Auto (Bld)on 93-40-8110Erqzkaiwwzp/100 WBC (Bld)Automated eosinophil %0.9-7.0[facility] HospitalErythrocyte distribution width Auto (RBC) [Ratio]on 97-40-6752Tejzokaxxgi distribution width (RBC) [Ratio]Erythrocyte distribution width [Ratio] by Automated count11.0-15.0 [facility] HospitalEstimated glomerular filtration rate (GFR) non- Americanon 55-33-3831CPF/1.73 sq M.predicted among non-blacks MDRD (S/P/Bld) [Vol rate/Area]Estimated glomerular filtration rate (GFR) non->=60 mL/min/1.73m 2FUC HealthGlobulin Calc (S) [Mass/Vol]on 09-14-0832Zdzlfctr (S) [Mass/Vol]Serum globulin measurement by calculation (mass/volume)[facility] HospitalHematocrit Auto (Bld) [Volume fraction]on 73-13-2728Jwlcugoznc (Bld) [Volume fraction]Hematocrit [Volume Fraction] of Blood by Automated count42.0-54.0[facility] HospitalHemoglobin [Mass/volume] in Bloodon 37-70-0092Ptrtaqtnsi (Bld) [Mass/Vol] Hemoglobin [Mass/volume] in Blood14.0-18.0[facility] Laboratory - Chemistry and Chemistry - challengeon 71-90-7975Asbrhjs [Mass/Vol] 3.7 g/dL3.4-5.0[facility] HospitalALP [Catalytic activity/Vol]69 U/I42-566ZoxghnjteMercy Health Urbana HospitalALT [Catalytic activity/Vol]48 U/L 16-63[facility] HospitalAST [Catalytic activity/Vol]34 U/L15-37 [facility] HospitalBilirubin [Mass/Vol]1.3 mg/dLHigh0.2-1.0 [facility] HospitalCalcium [Mass/Vol]9.4 mg/dL8.5-10.1FUC HealthChloride [Moles/Vol]108 mmol/ZMjns78-744WryntodstMercy Health [facility]ana HospitalCholesterol [Mass/Vol]88 mg/dL<=200[facility] HospitalCholesterol in HDL [Mass/Vol]43 mg/aP30-25VgcxyjuabMercy Health U[facility]ana HospitalComment on above:> or =60 mg/dl - LOW CARDIOVASCULAR RISK<40 mg/dl - HIGH CARDIOVASCULAR RISKCO2 [Moles/Vol]26.8 mmol/L21.0-32.0[facility] HospitalCreatinine [Mass/Vol]1.01 mg/dL0.70-1.30[facility] HospitalGFR/1.73 sq M.predicted MDRD (S/P/Bld) [Vol rate/Area] mL/min/{1.73_m2}>=60 mL/min/1.73m 2FUC HealthGlucose [Mass/Vol]105 mg/gK49-320TrynozfomMercy Health [facility]ana HospitalPotassium [Moles/Vol] 4.3 mmol/L3.5-5.1F[facility] HealthProtein [Mass/Vol]6.5 g/dL 6.4-8.2FMemorial Health System Selby General Hospitalodium [Moles/Vol]143 mmol/Z714-602 [facility] HospitalTriglyceride [Mass/Vol]74 mg/dL<=150[facility] HospitalUrea nitrogen [Mass/Vol]20.0 mg/dLHigh7.0-18.0[facility] HospitalUrea nitrogen/Creatinine [Mass ratio]19.8 mg/mgMercy Health U[facility]ana HospitalLaboratory - Hematology and Cell countson 09-02-2024 Immature granulocytes/100 WBC (Bld)0.4 %0.0-0.5[facility] Leukocytes [#/volume] corrected for nucleated erythrocytes in Blood by Automated counon 42-00-8663OYK corrected for nucl RBC Auto (Bld) [#/Vol]Leukocytes [#/volume] corrected for nucleated erythrocytes in Blood by Automated coun 4.0-11.0[facility] HospitalLymphocytes Auto (Bld) [#/Vol]on 13-78-2640Gpngrhmigvt (Bld) [#/Vol]Lymphocytes [#/volume] in Blood by Automated count1.2-3.8[facility] HospitalLymphocytes/100 WBC Auto (Bld)on 01-19-9470Hhhyjkzfsfa/100 WBC (Bld)Lymphocytes/100 leukocytes in Blood by Automated count20.5-60.0[facility] CenterH Auto (RBC) [Entitic mass]on 64-56-5185TST (RBC) [Entitic mass]MCH [Entitic mass] by Automated count 25.9-34.0[facility] HospitalMCHC Auto (RBC) [Mass/Vol]on 66-30-7181WVVG (RBC) [Mass/Vol]MCHC [Mass/volume] by Automated count29.9-35.2 [facility] HospitalMCV Auto (RBC) [Entitic vol]on 22-73-3256PJW (RBC) [Entitic vol]MCV [Entitic volume] by Automated count80.0-94.0[facility] HospitalMonocytes Auto (Bld) [#/Vol]on 96-85-9239Lnenxiiqe (Bld) [#/Vol]Automated blood monocyte count0.3-0.8[facility] Monocytes/100 WBC Auto (Bld)on 41-49-1613Sezmdrxhu/100 WBC (Bld)Automated monocyte %1.7-12.0[facility] HospitalNeutrophils Auto (Bld) [#/Vol]on 80-43-4986Yiejjfsurgm (Bld) [#/Vol]Neutrophils [#/volume] in Blood by Automated count1.4-6.5FUC HealthNeutrophils/100 WBC Auto (Bld)on 62-39-0503Ptsoegnvbpt/100 WBC (Bld)Automated neutrophil %43.0-75.0 [facility] HospitalNo Panel Informationon 77-80-1808Ewwjtphbixu # (Auto)0.1 10 3/uL0.0-0.7FUC HealthImmature Granulocyte # (Auto)0.02 10 3/uL0.00-0.03[facility] HospitalPlatelet mean volume Auto (Bld) [Entitic vol]on 10-85-7824Uwlyksjm mean volume (Bld) [Entitic vol] Platelet mean volume [Entitic volume] in Blood by Automated countLow9.5-13.5 [facility] HospitalPlatelets Auto (Bld) [#/Vol]on 09-02-2024 Platelets (Bld) [#/Vol]Platelets [#/volume] in Blood by Automated ljotu801-086 [facility] HospitalRBC Auto (Bld) [#/Vol]on 71-48-6241EEE (Bld) [#/Vol]Erythrocytes [#/volume] in Blood by Automated count4.70-6.10[facility] Hospitalerum or plasma albumin/globulin mass ratioon 09-02-2024 Albumin/Globulin [Mass ratio]Serum or plasma albumin/globulin mass ratio [facility] Hospitalerum or plasma anion gap determinationon 71-73-5455Riiax gap [Moles/Vol]Serum or plasma anion gap determinationProMedica Fostoria Community Hospitalerum or plasma total cholesterol/high density lipoprotein (HDL) cholesterol mass meghana 05-32-6630Osphvvuxppd.total/Cholesterol in HDL [Mass ratio]Serum or plasma total cholesterol/high density lipoprotein (HDL) cholesterol mass ratMercy Health U[facility]ana HospitalComment on above:3.3 - 4.4 LOW RISK4.4 - 7.1 AVERAGE RISK7.1 - 11.0 MODERATE RISK>11.0 HIGH RISK Perimetry studyon 36-93-8153ASKD HealthcareRadiology Study observation (narrative)NOMS HealthcareInfluenza virus B Ag [Presence] in Upper respiratory specimen by Rapid immunoassayon 60-27-7712MGWLC Ag IA.rapid Ql (Nph)Negative [facility] HospitalNo Panel Informationon 71-97-8504Stdwlnbeo Type A (Rapid)NegativeMercy Health Urbana HospitalPO SARS CoV-2 Antigen PositiveMercy Health Urbana HospitalBasophils Auto (Bld) [#/Vol]on 22-49-5020Hjqekcnqw (Bld) [#/Vol]0.0 10 3/uL0.0-0.1FUC HealthBasophils/100 WBC Auto (Bld)on 64-70-2478Lhgubinam/100 WBC (Bld)0.6 % 0.2-2.0[facility] HospitalEosinophils/100 WBC Auto (Bld)on 94-22-3083Gaekvtuziny/100 WBC (Bld)0.9 %0.9-7.0[facility] Erythrocyte distribution width Auto (RBC) [Ratio]on 05-30-3825Fxpqoziheeu distribution width (RBC) [Ratio]14.3 %11.0-15.0[facility] Hematocrit Auto (Bld) [Volume fraction]on 54-76-6736Cfgvqnrviu (Bld) [Volume fraction]44.2 %42.0-54.0[facility] HospitalHemoglobin [Mass/volume] in Bloodon 78-60-4472Zxyzvmrnza (Bld) [Mass/Vol]14.7 g/dL14.0-18.0 [facility] HospitalLaboratory - Chemistry and Chemistry - challengeon 61-47-3444Ewfwgmdoq Ql (U)NegativeNEGATIVEMercy Health [facility]ana HospitalGlucose (U) [Mass/Vol]NegativeNEGATIVEMercy Health [facility] Ketones Ql (U)NegativeNEGATIVEMercy Health [facility] HospitalpH (U)6.5 [pH] 5.0-9.0[facility] Hospitalpecific gravity (U) [Rel density]1.020 1.005-1.025[facility] HospitalUrobilinogen Qn (U)0.2 {[place]aine'U}/dL0.2-1.0[facility] HospitalLaboratory - Hematology and Cell countson 37-86-2440DRD (Bld) [Velocity]11 mm/h<=20[facility] HospitalImmature granulocytes/100 WBC (Bld)0.5 %0.0-0.5F[facility] HealthLaboratory - Specimen informationon 76-42-9929Fawefmixpq (U)CLEAR CLEARMercy Health Urbana HospitalColor (U)YELLOWYELLOWMercy Health Urbana HospitalLaboratory - Urinalysison 57-92-0650Eoscpevmv esterase Test strip Ql (U)NegativeNEGATIVEMercy Health [facility]ana HospitalMucus Ql (Urine sed)TRACE AbnormalNONE SEENMercy Health [facility]ana HospitalNitrite Ql (U)NegativeNEGATIVE [facility] HospitalProtein Ql (U)NegativeNEG/TRACEMercy Health [facility]ana HospitalLeukocytes [#/volume] corrected for nucleated erythrocytes in Blood by Automated counon 10-35-5480IKO corrected for nucl RBC Auto (Bld) [#/Vol]6.5 10 3/uL4.0-11.0[facility] Lymphocytes Auto (Bld) [#/Vol]on 66-69-5089Twfvqidogmg (Bld) [#/Vol]1.3 10 3/uL 1.2-3.8[facility] HospitalLymphocytes/100 WBC Auto (Bld)on 19-65-2883Qspwtbvftbd/100 WBC (Bld)19.8 %Low20.5-60.0[facility] HospitalMCH Auto (RBC) [Entitic mass]on 01-89-5403NFV (RBC) [Entitic mass]30.2 pg 25.9-34.0[facility] CenterHC Auto (RBC) [Mass/Vol]on 32-36-1902CKHK (RBC) [Mass/Vol]33.3 g/dL29.9-35.2FUC HealthMCV Auto (RBC) [Entitic vol]on 49-90-5026ETE (RBC) [Entitic vol]90.8 fL 80.0-94.0[facility] HospitalMonocytes Auto (Bld) [#/Vol]on 55-05-2296Oxsyjctso (Bld) [#/Vol]0.6 10 3/uL0.3-0.8[facility] HospitalMonocytes/100 WBC Auto (Bld)on 73-64-6771Gikmuhokw/100 WBC (Bld)9.9 % 1.7-12.0[facility] HospitalNeutrophils Auto (Bld) [#/Vol]on 96-82-6685Ykvzzomeujt (Bld) [#/Vol]4.4 10 3/uL1.4-6.5FUC HealthNeutrophils/100 WBC Auto (Bld)on 15-01-1137Hkozlpraniq/100 WBC (Bld)68.3 % 43.0-75.0[facility] HospitalNo Panel Informationon 70-69-1064Eyfrg BacteriaNONE SEEN #/HPFNONE SEENMercy Health Urbana HospitalUrine Occult BloodNegativeNEGATIVEMercy Health U[facility]ana HospitalUrine Other CastsNONE SEEN #/LPFNONE SEENMercy Health Urbana HospitalUrine Other CrystalsNone Seen #/HPFNone [facility] HospitalUrine RBC0-2 #/HPF0-2FUC HealthUrine Squamous Epithelial CellsNONE SEEN #/LPFNONE/RARE [facility] HospitalUrine WBC0-2 #/HPFAbnormalNONE SEENMercy Health [facility] HospitalEosinophils # (Auto)0.1 10 3/uL0.0-0.7FUC HealthImmature Granulocyte # (Auto)0.03 10 3/uL0.00-0.03[facility] HospitalPlatelet mean volume Auto (Bld) [Entitic vol]on 85-78-5929Emtspklm mean volume (Bld) [Entitic vol]10.0 fL9.5-13.5FUC HealthPlatelets Auto (Bld) [#/Vol]on 52-27-6035Idajpmsep (Bld) [#/Vol]169 10 3/sF862-505VklriekisMercy Health U[facility]ana HospitalRBC Auto (Bld) [#/Vol] on 70-57-6006QJG (Bld) [#/Vol]4.87 10 6/uL4.70-6.10[facility] HospitalNo Panel Informationon 80-36-4121Unjpljlu Specific Antigen Screen1.33 ng/mL<=4.00[facility] HospitalEstimated glomerular filtration rate (GFR) non- Americanon 14-01-6065FIM/1.73 sq M.predicted among non-blacks MDRD (S/P/Bld) [Vol rate/Area]mL/min/{1.73_m2}>=60[facility] HospitalLaboratory - Chemistry and Chemistry - challengeon 79-13-0815Wjwzrhz [Mass/Vol]9.6 mg/dL8.5-10.1FUC HealthChloride [Moles/Vol] 105 mmol/I14-889AtrmrplolMercy Health U[facility]ana HospitalCO2 [Moles/Vol]23.8 mmol/L 21.0-32.0[facility] HospitalCreatinine [Mass/Vol]1.02 mg/dL 0.70-1.30[facility] HospitalGFR/1.73 sq M.predicted MDRD (S/P/Bld) [Vol rate/Area]mL/min/{1.73_m2}>=60[facility] HospitalGlucose [Mass/Vol]96 mg/fG76-060AwlmntlnjMercy Health [facility] HospitalPotassium [Moles/Vol] 4.0 mmol/L3.5-5.1FMemorial Health System Selby General Hospitalodium [Moles/Vol]140 mmol/L 136-145[facility] HospitalUrea nitrogen [Mass/Vol]15.0 mg/dL 7.0-18.0[facility] HospitalUrea nitrogen/Creatinine [Mass ratio] 14.7 mg/mgProMedica Fostoria Community Hospitalerum or plasma anion gap determinationon 27-12-8946Gqmkc gap [Moles/Vol]15.2 mmol/LFUC HealthOperative Reporton 16-65-6637Kwwdiyacn Report [id number]#1.00[facility] CenterRAD - MISCon 95-90-5346MWX [facility] [id number]#1.00TIFCleveland ClinicConsent for Procedure/Surgeryon 57-15-0888Ypzzfgg for Procedure/Surgery [id number]#1.00[facility] CenterFacesheeton 87-04-9404Shvpyhbdk [id number]#1.00[facility] CenterAmbulatory Visit Summaryon 21-30-0913Gmrsbiflfm Visit Summary YONATAN PATEL :1945 Visit Date:07/28/2023 [...] you for choosing us for your care. [facility] HospitalAmb[facility] Summary YONATAN PATEL :1945 Visit Date:07/28/2023 [...] you for choosing us for your care. [facility] HospitalPhysician Referralon 06-26-2023 Physician [id number]#1.00TIFFNormalParkview Health Bryan HospitalBasic Metabolic Panelon 26-57-0202Orvpb gap [Moles/Vol]10.4 mmol/LNormal6.0-15.0[facility] HospitalComment on above:Order Comment: FASTING YPerformed By: #### HS TROP, CMP, CK, CBC #### [facility] [address] [place] [address] USACalcium [Mass/Vol]9.4 mg/dLNormal8.6-10.3FUC HealthComment on above:Order Comment: FASTING YPerformed By: #### HS TROP, CMP, CK, CBC #### [facility] [address] [place] [address] USAChloride [Moles/Vol]106 mmol/WNlvnhy92-191CaqtlkkshMercy Health Urbana HospitalComment on above:Order Comment: FASTING YPerformed By: #### HS TROP, CMP, CK, CBC #### [facility] [address] [place] [address] USACO2 [Moles/Vol]28.8 mmol/NMwagjn54.0-31.0[facility] HospitalComment on above:Order Comment: FASTING YPerformed By: #### HS TROP, CMP, CK, CBC #### [facility] [address] [place] [id number] USACreatinine [Mass/Vol]0.78 mg/dLNormal0.70-1.30[facility] HospitalComment on above:Order Comment: FASTING YPerformed By: #### HS TROP, CMP, CK, CBC #### [facility] [address] [place] [id number] USACreatinine Clr Calc Rmkpyjhf93.46NoFairfield Medical CenterComment on above:Order Comment: FASTING YPerformed By: #### HS TROP, CMP, CK, CBC #### [facility] [address] [place] [address] USAGFR/1.73 sq M.predicted MDRD (S/P/Bld) [Vol rate/Area] mL/min/{1.73_m2}NormalMercy Health Urbana HospitalComment on above:Order Comment: FASTING YPerformed By: #### HS TROP, CMP, CK, CBC #### [facility] [address] [place] [address] USAGlucose [Mass/Vol]99 mg/fJChvqsk36-304FjeedvalrMercy Health Urbana HospitalComment on above:Order Comment: FASTING YResult Comment: Random Glucose Reference Range is dependent on time and content of last meal. Glucose of more than 200 mg/dL in a nonstressed, ambulatory subject supports the diagnosis of Diabetes Mellitus. ADA recommended reference rangePerformed By: #### HS TROP, CMP, CK, CBC #### [facility] [address] [place] [address] USAPotassium [Moles/Vol]4.2 mmol/LNormal3.5-5.1FUC HealthComment on above:Order Comment: FASTING YPerformed By: #### HS TROP, CMP, CK, CBC #### [facility] [address] [place] [address] USASodium [Moles/Vol]141 mmol/EGqotqc912-517GziwqiqvtMercy Health Urbana HospitalComment on above:Order Comment: FASTING YPerformed By: #### HS TROP, CMP, CK, CBC #### [facility] [address] [place] [id number] USAUrea nitrogen [Mass/Vol]16 mg/dLNormal7-25[facility] HospitalComment on above:Order Comment: FASTING YPerformed By: #### HS TROP, CMP, CK, CBC #### [facility] [address] [place] [address] USAComplete Blood Count Auto Diffon 07-03-5902Woqltkjrv (Bld) [#/Vol]0.0 10*3/uLNormal0.0-0.2FUC HealthComment on above:Result Comment: PERFORMED BY: [place] [address] PATHOLOGIST [employer] SECRETARY HARRY MARTI M.D.Performed By: #### LIPID, [id number], PT, CBC, HEPATIC, BMP, PTT, TSH3, MG #### [place] [address] USABasophils/100 WBC (Bld)0.4 %Normal.[facility] HospitalComment on above:Performed By: #### LIPID, [id number], PT, CBC, HEPATIC, BMP, PTT, TSH3, MG #### [place] [address] USAEosinophils (Bld) [#/Vol]0.1 10*3/uLNormal0.0-0.45 [facility] HospitalComment on above:Performed By: #### LIPID, [id number], PT, CBC, HEPATIC, BMP, PTT, TSH3, MG #### [place] [address] USAEosinophils/100 WBC (Bld)1.2 %Normal.[facility] HospitalComment on above:Performed By: #### LIPID, [id number], PT, CBC, HEPATIC, BMP, PTT, TSH3, MG #### [place] [address] USAErythrocyte distribution width (RBC) [Ratio]15.2 %High 12.0-14.8[facility] HospitalComment on above:Performed By: #### LIPID, [id number], PT, CBC, HEPATIC, BMP, PTT, TSH3, MG #### [place] [address] USAHematocrit (Bld) [Volume fraction]40.0 %Kdmzxy69.8-50.0 [facility] HospitalComment on above:Performed By: #### LIPID, [id number], PT, CBC, HEPATIC, BMP, PTT, TSH3, MG #### [place] [address] USAHemoglobin (Bld) [Mass/Vol]13.6 g/oVRhygxl01.0-17.0 [facility] HospitalComment on above:Performed By: #### LIPID, [id number], PT, CBC, HEPATIC, BMP, PTT, TSH3, MG #### [place] [address] USALymphocytes (Bld) [#/Vol]1.5 10*3/uLNormal1.00-4.8 [facility] HospitalComment on above:Performed By: #### LIPID, [id number], PT, CBC, HEPATIC, BMP, PTT, TSH3, MG #### [place] [address] USALymphocytes/100 WBC (Bld)35.5 %Normal.[facility] HospitalComment on above:Performed By: #### LIPID, [id number], PT, CBC, HEPATIC, BMP, PTT, TSH3, MG #### [address] (RBC) [Entitic mass]29.4 eeAtomle70.5-35.2FUC HealthComment on above:Performed By: #### LIPID, [id number], PT, CBC, HEPATIC, BMP, PTT, TSH3, MG #### [address] (RBC) [Entitic vol]86.7 xSBfbkub59.5-101[facility] HospitalComment on above:Performed By: #### LIPID, [id number], PT, CBC, HEPATIC, BMP, PTT, TSH3, MG #### [place] [address] USAMean Corpuscular HGB Conc33.9 g/pMKtiarv53.5-35.6[facility] HealthComment on above:Performed By: #### LIPID, [id number], PT, CBC, HEPATIC, BMP, PTT, TSH3, MG #### [facility] [address] [place] [address] USAMonocytes (Bld) [#/Vol]0.4 10*3/uLNormal0.0-0.8[facility] HospitalComment on above:Performed By: #### LIPID, [id number], PT, CBC, HEPATIC, BMP, PTT, TSH3, MG #### [facility] [address] [place] [address] USAMonocytes/100 WBC (Bld)10.4 %Normal.[facility]rbana HospitalComment on above:Performed By: #### LIPID, [id number], PT, CBC, HEPATIC, BMP, PTT, TSH3, MG #### [place] [address] USANeutrophils (Bld) [#/Vol]2.2 10*3/uLNormal1.8-7.7FUC HealthComment on above:Performed By: #### LIPID, [id number], PT, CBC, HEPATIC, BMP, PTT, TSH3, MG #### [facility] [address] [place] [address] USANeutrophils/100 WBC (Bld)52.5 %Normal.[facility]rbana HospitalComment on above:Performed By: #### LIPID, [id number], PT, CBC, HEPATIC, BMP, PTT, TSH3, MG #### [facility] [address] [place] [address] USANRBC%0.1 /100{WBC}Normal0-0.5FUC HealthComment on above:Performed By: #### LIPID, [id number], PT, CBC, HEPATIC, BMP, PTT, TSH3, MG #### [facility] [address] [place] [address] USAPlatelet mean volume (Bld) [Entitic vol]7.3 fLNormal 6.6-10.1FUC HealthComment on above:Performed By: #### LIPID, [id number], PT, CBC, HEPATIC, BMP, PTT, TSH3, MG #### [facility] [address] [place] [address] USAPlatelets (Bld) [#/Vol]153 10*3/gBKjrefm221-522ApbhovozkMercy Health Urbana HospitalComment on above:Performed By: #### LIPID, [id number], PT, CBC, HEPATIC, BMP, PTT, TSH3, MG #### [facility] [address] [place] [address] USARBC (Bld) [#/Vol]4.61 10*6/uLNormal3.90-5.60[facility]rbana HospitalComment on above:Performed By: #### LIPID, [id number], PT, CBC, HEPATIC, BMP, PTT, TSH3, MG #### [facility] [address] [place] [address] USAWBC (Bld) [#/Vol]4.1 10*3/uLNormal4.1-10.5FUC HealthComment on above:Performed By: #### LIPID, [id number], PT, CBC, HEPATIC, BMP, PTT, TSH3, MG #### [facility] [address] [place] [address] USAHepatic Panelon 67-32-6946Ysexujb [Mass/Vol]3.8 g/dLNormal 3.5-5.7FUC HealthComment on above:Order Comment: FASTING YPerformed By: #### HS TROP, CMP, CK, CBC #### [place] [address] USAAlbumin/Globulin [Mass ratio]1.6 {ratio}NormalMercy Health Urbana HospitalComment on above:Order Comment: FASTING YPerformed By: #### HS TROP, CMP, CK, CBC #### [place] [address] USAALP [Catalytic activity/Vol]57 U/TTkabcv92-714LuhjyvsesMercy Health Urbana HospitalComment on above:Order Comment: FASTING YPerformed By: #### HS TROP, CMP, CK, CBC #### [facility] [address] [place] [address] USAALT [Catalytic activity/Vol]26 U/LNormal7-52Mer[facility]rbana HospitalComment on above:Order Comment: FASTING YPerformed By: #### HS TROP, CMP, CK, CBC #### [place] [address] USAAST [Catalytic activity/Vol]27 U/QLitibb39-70AnrnoioosMercy Health Urbana HospitalComment on above:Order Comment: FASTING YPerformed By: #### HS TROP, CMP, CK, CBC #### [place] [address] USABilirubin [Mass/Vol]1.0 mg/dLNormal0.3-1.0Mer[facility]rbana HospitalComment on above:Order Comment: FASTING YPerformed By: #### HS TROP, CMP, CK, CBC #### [place] [address] USABilirubin,Indirect0.8 mg/dLNormBluffton HospitalComment on above:Order Comment: FASTING YPerformed By: #### HS TROP, CMP, CK, CBC #### [place] [address] USABilirubin.indirect [Mass/Vol]0.20 mg/dLHigh0.03-0.18 [facility]rbana HospitalComment on above:Order Comment: FASTING Y Performed By: #### HS TROP, CMP, CK, CBC #### [place] [address] USAGlobulin (S) [Mass/Vol]2.4 g/dLNoFairfield Medical CenterComment on above:Order Comment: FASTING YPerformed By: #### HS TROP, CMP, CK, CBC #### [place] [address] USAProtein [Mass/Vol]6.2 g/dLLow6.4-8.9[facility]rbana HospitalComment on above:Order Comment: FASTING YPerformed By: #### HS TROP, CMP, CK, CBC #### [facility] [address] [place] [address] USALipid Panelon 89-40-7619Dofarnwwvsn [Mass/Vol]108 mg/dLLow 140-200Mer[facility] Urbana HospitalComment on above:Order Comment: FASTING YResult Comment: Chol less than 200 mg/dl low risk Chol 201-239 mg/dl borderline risk Chol 240 mg/dl and greater high riskPerformed By: #### HS TROP, CMP, CK, CBC #### [facility] [address] [place] [address] USACholesterol in HDL [Mass/Vol]30 mg/mUCksatm10-45YydcjcvmlMercy Health Urbana HospitalComment on above:Order Comment: FASTING YResult Comment: HDL CHOL ATP-III CLASSIFICATION Cardiovascular Risk HDL > or equal to 60 mg/dL LOW HDL < 40 mg/dL HIGHPerformed By: #### HS TROP, CMP, CK, CBC #### [facility] [address] [place] [id number] USACholesterol.total/Cholesterol in HDL [Mass ratio]3.6 {ratio}Normal<5.0Mer[facility] Urbana HospitalComment on above:Order Comment: FASTING YPerformed By: #### HS TROP, CMP, CK, CBC #### [facility] [address] [place] [address] USALDL Cholesterol,Bavaudtorn74 mg/dLNormal0-100[facility]ana HospitalComment on above:Order Comment: FASTING YResult Comment: LDL ATP III CLASSIFICATION LDL less than 100 mg/dL Optimal LDL 100-129 mg/dL Near or above optimal LDL 130-159 mg/dL Borderline high LDL 160-189 mg/dL High LDL greater than 189 mg/dL Very highPerformed By: #### HS TROP, CMP, CK, CBC #### [facility] [address] [place] [address] USATriglyceride w/Eofwaz677 mg/dLNormal0-149Mer[facility]rbana HospitalComment on above:Order Comment: FASTING YResult Comment: TRIG ATP III CLASSIFICATION TRIG less than 150 mg/dL Normal TRIG 150-199 mg/dL Borderline high TRIG 200-500 mg/dL High TRIG greater than 500 mg/dL Very high Standard traceable to the Center for Disease Conrtrol and Prevention (CDC) test method.Performed By: #### HS TROP, CMP, CK, CBC #### [facility] [address] [place] [address] USAVLDL XVXASPQUDMY21 mg/dLNoFairfield Medical CenterComment on above:Order Comment: FASTING YPerformed By: #### HS TROP, CMP, CK, CBC #### [facility] [address] [place] [address] USAMR angio head wo conon 13-20-6047PP angio head wo con [facility] [place] [address] [place] [address] MRI Report Signed Patient: Yonatan Patel MR#: [id number] 6 : 1945 Acct:[id number] Age/Sex: 78 / M ADM Date: 06/20/23 Loc: Room: [address] [place] [address] Type: ADM IN Attending Dr: Maren Petersen MD Copies to: MD Berhane Rocha MD Ordering Provider: Berhane Trammell MD Date of Service: 06/22/23 MR/MR angio head wo con: stroke MRI/MRA BRAIN WITHOUT CONTRAST COMPARISON: CT 06/20/2023 CLINICAL DATA: Confusion Sagittal T2, axial FLAIR and diffusion-weighted imaging was performed. 3-D ntjn-ql-mkmcjg imaging of the [place] was also performed. There is [...] Selena Reid M.D.06/22/2023 4:25 PM Dictation Location: [place] [address] Transcribed By: [facility] 06/22/23 1625 Dictated By: Selena Reid MD 06/22/23 1617 Signed By: 06/22/23 1625NormalMercy Health Urbana HospitalMagnesiumon 06-22-2023 Magnesium [Mass/Vol]2.1 mg/dLNormal1.9-2.7[facility] Comment on above:Order Comment: FASTING YPerformed By: #### HS TROP, CMP, CK, CBC #### [facility] [address] [place] [address] USAPartial Thromboplastin Timeon 19-71-4919nPIV Coag (Bld) [Time]27.4 hGhwcbj40.1-36.5FUC HealthComment on above: Result Comment: A hematocrit value greater than 55% may lead to inaccurate results in coagulation testing. Patients having hematocrit values >55% require a special collection tube for coagulation studies. Please contact the laboratory at [phone] for redraw instructions. PERFORMED BY: [address] [address] PATHOLOGIST MEDICAL UNIT SECRETARY HARRY MARTI M.D.Performed By: #### HS TROP, CMP, CK, CBC #### [facility] [address] [place] [address] USAProthrombin Time INRon 49-33-8437IGS Coag (PPP) [Relative time]1.0 {INR}[facility] County HospitalComment on above:Result Comment: INR Therapeutic Range A) Pre- and [...] patients with mechanical heart valves: 3 - 4.5Performed By: #### LIPID, [id number], PT, CBC, HEPATIC, BMP, PTT, TSH3, MG #### [place] [id number] USAPT Coag (PPP) [Time]11.6 sNormal9.0-12.9[facility]rbana HospitalComment on above:Result Comment: A hematocrit value greater than 55% may lead to inaccurate results in coagulation testing. Patients having hematocrit values >55% require a special collection tube for coagulation studies. Please contact the laboratory at [phone] for redraw instructions.Performed By: #### LIPID, [id number], PT, CBC, HEPATIC, BMP, PTT, TSH3, MG #### [place] [id number] USAThyroid Stimulating Hormoneon 37-42-4585NNW Qn2.38 m[IU]/L Normal0.45-5.33[facility]rbana HospitalComment on above:Order Comment: FASTING YResult Comment: PERFORMED BY: [place] [address] PATHOLOGIST MEDICAL UNIT SECRETARY HARRY MARTI M.D.Performed By: #### HS TROP, CMP, CK, CBC #### [place] [id number] USAVit. B12/Folate Profileon 46-82-8626Yyqgtyytu (Vitamin B12) [Mass/Vol]425 pg/wZBcpawh662-703AtyxrkbguMercy Health Urbana HospitalComment on above:Order Comment: FASTING YPerformed By: #### HS TROP, CMP, CK, CBC #### [place] [id number] QBFVrunmi47.0 ng/mLNormal>5.9Mer[facility]rbana HospitalComment on above:Order Comment: FASTING YResult Comment: Folate reference range: >5.9 ng/ml The WHO technical consultation on folate and vitamin b12 deficiencies has determined that folate concentrations less than 4 ng/ml are considered deficient.Performed By: #### HS TROP, CMP, CK, CBC #### [place] [id number] USAVitamin B1 (Thiamine) Bloodon 03-08-3558Dxcbwpp B1 (Thiamine) Doxbm335.6Ubqqxf92.5-200.0Mer[facility]rbana HospitalComment on above:Result Comment: This test was developed and its performance characteristics determined by [facility]. It has not been cleared or approved by the Food and Drug Administration. Performed at: [facility] [id number] Pile Driver Engineer: Juan Howard MD, Phone: [phone] PERFORMED BY: [place] [address] PATHOLOGIST MEDICAL UNIT SECRETARY HARRY MARTI M.D.Performed By: #### VITB1 #### [facility] ,Ammoniaon 01-67-1563Eshikpo (P) [Moles/Vol]19 umol/SYxoduw62-33JvcvaoxjcMercy Health Urbana HospitalComment on above:Result Comment: PERFORMED BY: [place] [address] PATHOLOGIST MEDICAL UNIT SECRETARY HARRY MARTI M.D.Performed By: #### HS TROP, CMP, CK, CBC #### [facility] [address] [place] [address] USABasic Metabolic Panelon 55-91-0701Vhoyt gap [Moles/Vol] 11.3 mmol/LNormal6.0-15.0[facility]ana HospitalComment on above: Performed By: #### HS TROP, CMP, CK, CBC #### [facility] [address] [place] [address] USACalcium [Mass/Vol]9.4 mg/dLNormal8.6-10.3FUC HealthComment on above:Performed By: #### HS TROP, CMP, CK, CBC #### [facility] [address] [place] [address] USAChloride [Moles/Vol]107 mmol/AHetfoq92-050UdtxpuqabMercy Health Urbana HospitalComment on above:Performed By: #### HS TROP, CMP, CK, CBC #### [facility] [address] [place] [address] USACO2 [Moles/Vol]25.7 mmol/XOivcck78.0-31.0Mer[facility]rbana HospitalComment on above:Performed By: #### HS TROP, CMP, CK, CBC #### [facility] [address] [place] [address] USACreatinine [Mass/Vol]0.83 mg/dLNormal0.70-1.30[facility]ana HospitalComment on above:Performed By: #### HS TROP, CMP, CK, CBC #### [facility] [address] [place] [address] USACreatinine Clr Calc Indblylr78.52NormBluffton HospitalComment on above:Result Comment: PERFORMED BY: [place] [address] PATHOLOGIST MEDICAL UNIT SECRETARY HARRY MARTI M.D.Performed By: #### HS TROP, CMP, CK, CBC #### [place] [address] USAGFR/1.73 sq M.predicted MDRD (S/P/Bld) [Vol rate/Area] mL/min/{1.73_m2}NormalMercy Health Urbana HospitalComment on above: Performed By: #### HS TROP, CMP, CK, CBC #### [place] [address] USAGlucose [Mass/Vol]174 mg/tUXwjh04-670ZepjgqefvMercy Health Urbana HospitalComment on above:Result Comment: Random Glucose Reference Range is dependent on time and content of last meal. Glucose of more than 200 mg/dL in a nonstressed, ambulatory subject supports the diagnosis of Diabetes Mellitus. ADA recommended reference rangePerformed By: #### HS TROP, CMP, CK, CBC #### [facility] [address] [place] [address] USAPotassium [Moles/Vol]4.0 mmol/LNormal3.5-5.1FUC HealthComment on above:Performed By: #### HS TROP, CMP, CK, CBC #### [place] [address] USASodium [Moles/Vol]140 mmol/IMfiefi685-475HggbjhckbMercy Health Urbana HospitalComment on above:Performed By: #### HS TROP, CMP, CK, CBC #### [facility] [address] [place] [address] USAUrea nitrogen [Mass/Vol]11 mg/dLNormal7-25Mer[facility]rbana HospitalComment on above:Performed By: #### HS TROP, CMP, CK, CBC #### [facility] [address] [place] [address] USAHemogram CBC Without Diffon 30-52-9904Ygmdgstxhjd distribution width (RBC) [Ratio]14.7 %Pnrguk16.0-14.8Mer[facility]rbana HospitalComment on above:Performed By: #### HS TROP, CMP, CK, CBC #### [place] [address] USAHematocrit (Bld) [Volume fraction]40.7 %Zpwvfi08.8-50.0 [facility] HospitalComment on above:Performed By: #### HS TROP, CMP, CK, CBC #### [place] [address] USAHemoglobin (Bld) [Mass/Vol]13.9 g/kLOplvnm22.0-17.0 [facility] HospitalComment on above:Performed By: #### HS TROP, CMP, CK, CBC #### [place] [address] USAMCH (RBC) [Entitic mass]29.7 mcWmbmth72.5-35.2FUC HealthComment on above:Performed By: #### HS TROP, CMP, CK, CBC #### [facility] [address] [place] [address] USAMCV (RBC) [Entitic vol]86.8 rKOzmgii16.5-101Mer[facility]rbana HospitalComment on above:Performed By: #### HS TROP, CMP, CK, CBC #### [place] [address] USAMean Corpuscular HGB Conc34.2 g/dMEwmrzy24.5-35.6FUC HealthComment on above:Performed By: #### HS TROP, CMP, CK, CBC #### [place] [address] USAPlatelet mean volume (Bld) [Entitic vol]7.3 fLNormal 6.6-10.1FUC HealthComment on above:Result Comment: PERFORMED BY: [place] [address] PATHOLOGIST MEDICAL UNIT SECRETARY HARRY MARTI M.D.Performed By: #### HS TROP, CMP, CK, CBC #### [place] [address] USAPlatelets (Bld) [#/Vol]144 10*3/tJXbc349-704ZuunvzvnwMercy Health Urbana HospitalComment on above:Performed By: #### HS TROP, CMP, CK, CBC #### [place] [address] USARBC (Bld) [#/Vol]4.69 10*6/uLNormal3.90-5.60[facility]ana HospitalComment on above:Performed By: #### HS TROP, CMP, CK, CBC #### [place] [address] USAWBC (Bld) [#/Vol]3.9 10*3/uLLow4.1-10.5FUC HealthComment on above:Performed By: #### HS TROP, CMP, CK, CBC #### [place] [address] USACOVID CepheidOrdered By: Sandoval Palacios on 06-20-2023 SARS-CoV-2 (COVID-19) Ab IA QlPositiveNegativeMercy Health Urbana Hospital Comment on above:This is a duplicate Cepheid Xpert Xpress CoV-2/Flu/RSV Plus RNA by RT-PCR result to be used for statistical tracking purpose only.SARS-CoV-2 (COVID-19) RNA MARIANNE+probe Ql (Unsp spec)[facility]rbana HospitalCOVID-19 / Flu A/B / RSV PCRon 22-13-5758JTTQ-CoV-2 (COVID-19) RNA MARIANNE+probe Ql (Unsp spec)Results called at 0230 on 06/20/23 COVID-19 Cepheid [...] or Cepheid Disclaimer revoked sooner. PERFORMED BY: [place] [id number] PATHOLOGIST MEDICAL UNIT SECRETARY HARRY MARTI M.D.[facility] County HospitalComment on above: Performed By: #### HS TROP, CMP, CK, CBC #### [place] [id number] USACT head/brain wo conon 39-92-4473WW head/brain wo con [facility] [place] [address] [place] [address] CT Scan Report Signed Patient: Yonatan Patel MR#: [id number] 6 : 1945 Acct:[id number] Age/Sex: 78 / M ADM Date: 06/20/23 Loc: Room: 9D3318-1 Type: ADM INOo Attending Dr: Jassi Arias [...] Daisha Fernandez M.D.06/20/2023 8:34 AM Dictation Location: [place] [address] Transcribed By: [facility] 06/20/[address] Dictated By: Daisha Fernandez II, MD 06/20/2330 Signed By: 06/20/2334NormBluffton HospitalCepheid COVID PCR Positiveon 50-51-5908FQRL-CoV-2 (COVID-19) RNA MARIANNE+probe Ql (Unsp spec)PositiveCritically abnormalNegativeMercy Health Urbana HospitalComment on above:Result Comment: This is a duplicate Cepheid Xpert Xpress CoV-2/Flu/RSV Plus RNA by RT-PCR result to be used for statistical tracking purpose only. PERFORMED BY: [place] [address] PATHOLOGIST MEDICAL UNIT SECRETARY HARRY MARTI M.D.Performed By: #### HS TROP, CMP, CK, CBC #### [place] [address] USAComplete Blood Count Auto Diffon 97-11-0891Fdctqczmb (Bld) [#/Vol]0.0 10*3/uLNormal0.0-0.2FUC HealthComment on above:Result Comment: PERFORMED BY: [place] [address] PATHOLOGIST MEDICAL UNIT SECRETARY HARRY MARTI M.D.Performed By: #### HS TROP, CMP, CK, CBC #### [place] [address] USABasophils/100 WBC (Bld)0.4 %Normal.[facility]rbana HospitalComment on above:Performed By: #### HS TROP, CMP, CK, CBC #### [place] [address] USAEosinophils (Bld) [#/Vol]0.0 10*3/uLNormal0.0-0.45 [facility] HospitalComment on above:Performed By: #### HS TROP, CMP, CK, CBC #### [place] [address] USAEosinophils/100 WBC (Bld)0.6 %Normal.[facility] HospitalComment on above:Performed By: #### HS TROP, CMP, CK, CBC #### [place] [address] USAErythrocyte distribution width (RBC) [Ratio]14.9 %High 12.0-14.8[facility]rbana HospitalComment on above:Performed By: #### HS TROP, CMP, CK, CBC #### [place] [address] USAHematocrit (Bld) [Volume fraction]43.3 %Rxtaiu61.8-50.0 [facility] HospitalComment on above:Performed By: #### HS TROP, CMP, CK, CBC #### [place] [address] USAHemoglobin (Bld) [Mass/Vol]14.8 g/dEZmipqp35.0-17.0 [facility] HospitalComment on above:Performed By: #### HS TROP, CMP, CK, CBC #### [place] [address] USALymphocytes (Bld) [#/Vol]1.0 10*3/uLNormal1.00-4.8 [facility] HospitalComment on above:Performed By: #### HS TROP, CMP, CK, CBC #### [place] [address] USALymphocytes/100 WBC (Bld)20.8 %Normal.[facility]ana HospitalComment on above:Performed By: #### HS TROP, CMP, CK, CBC #### [place] [address] USAMCH (RBC) [Entitic mass]30.0 vgGnwevt18.5-35.2FUC HealthComment on above:Performed By: #### HS TROP, CMP, CK, CBC #### [address] [address] USAMCV (RBC) [Entitic vol]87.6 xNJuxlxv88.5-101Mer[facility]ana HospitalComment on above:Performed By: #### HS TROP, CMP, CK, CBC #### [facility] [address] [place] [address] USAMean Corpuscular HGB Conc34.2 g/dZFsdkpc08.5-35.6FUC HealthComment on above:Performed By: #### HS TROP, CMP, CK, CBC #### [facility] [address] [place] [address] USAMonocytes (Bld) [#/Vol]0.8 10*3/uLNormal0.0-0.8[facility] HospitalComment on above:Performed By: #### HS TROP, CMP, CK, CBC #### [facility] [address] [place] [address] USAMonocytes/100 WBC (Bld)24.01 %High0.00-20.00Mer[facility]rbana HospitalComment on above:Result Comment: For adults in ED, MDW > 20.0 may be associated with a higher risk of sepsis during the first 12 hrs of hospital admissionPerformed By: #### HS TROP, CMP, CK, CBC #### [facility] [address] [place] [address] USAMonocytes/100 WBC (Bld)15.6 %Normal.[facility] HospitalComment on above:Performed By: #### HS TROP, CMP, CK, CBC #### [facility] [address] [place] [address] USANeutrophils (Bld) [#/Vol]3.0 10*3/uLNormal1.8-7.7FUC HealthComment on above:Performed By: #### HS TROP, CMP, CK, CBC #### [facility] [address] [place] [address] USANeutrophils/100 WBC (Bld)62.6 %Normal.[facility]rbana HospitalComment on above:Performed By: #### HS TROP, CMP, CK, CBC #### [facility] [address] [place] [address] USANRBC%0.4 /100{WBC}Normal0-0.5FUC HealthComment on above:Performed By: #### HS TROP, CMP, CK, CBC #### [place] [address] USAPlatelet mean volume (Bld) [Entitic vol]7.9 fLNormal 6.6-10.1FUC HealthComment on above:Performed By: #### HS TROP, CMP, CK, CBC #### [place] [address] USAPlatelets (Bld) [#/Vol]154 10*3/tZMeujiv872-600OyensasfbMercy Health Urbana HospitalComment on above:Performed By: #### HS TROP, CMP, CK, CBC #### [place] [address] USARBC (Bld) [#/Vol]4.94 10*6/uLNormal3.90-5.60[facility] HospitalComment on above:Performed By: #### HS TROP, CMP, CK, CBC #### [place] [address] USAWBC (Bld) [#/Vol]4.8 10*3/uLNormal4.1-10.5FUC HealthComment on above:Performed By: #### HS TROP, CMP, CK, CBC #### [place] [address] USAComprehensive Metabolic Panelon 69-34-7307Ptywgeu [Mass/Vol]4.2 g/dLNormal3.5-5.7FUC HealthComment on above:Performed By: #### HS TROP, CMP, CK, CBC #### [place] [address] USAAlbumin/Globulin [Mass ratio]1.6 {ratio}[facility] HospitalComment on above:Performed By: #### HS TROP, CMP, CK, CBC #### [facility] [address] [place] [address] USAALP [Catalytic activity/Vol]53 U/DFfbpab88-698NazcubimuMercy Health Urbana HospitalComment on above:Performed By: #### HS TROP, CMP, CK, CBC #### [facility] [address] [place] [address] USAALT [Catalytic activity/Vol]31 U/LNormal7-52[facility] HospitalComment on above:Performed By: #### HS TROP, CMP, CK, CBC #### [facility] [address] [place] [address] USAAnion gap [Moles/Vol]9.2 mmol/LNormal6.0-15.0[facility] HospitalComment on above:Performed By: #### HS TROP, CMP, CK, CBC #### [facility] [address] [place] [address] USAAST [Catalytic activity/Vol]33 U/YCslmbs77-82UccflhzfjMercy Health Urbana HospitalComment on above:Performed By: #### HS TROP, CMP, CK, CBC #### [facility] [address] [place] [address] USABilirubin [Mass/Vol]1.0 mg/dLNormal0.3-1.0[facility] HospitalComment on above:Performed By: #### HS TROP, CMP, CK, CBC #### [facility] [address] [place] [address] USACalcium [Mass/Vol]9.8 mg/dLNormal8.6-10.3FUC HealthComment on above:Performed By: #### HS TROP, CMP, CK, CBC #### [facility] [address] [place] [id number] USAChloride [Moles/Vol]107 mmol/JRymzir07-190TaylrfhzdMercy Health Urbana HospitalComment on above:Performed By: #### HS TROP, CMP, CK, CBC #### [facility] [address] [place] [address] USACO2 [Moles/Vol]25.6 mmol/AMtkdxf37.0-31.0[facility] HospitalComment on above:Performed By: #### HS TROP, CMP, CK, CBC #### [facility] [address] [place] [address] USACreatinine [Mass/Vol]0.95 mg/dLNormal0.70-1.30[facility] HospitalComment on above:Performed By: #### HS TROP, CMP, CK, CBC #### [facility] [address] [place] [address] USACreatinine Clr Calc Ghkmgmvd94.44NoFairfield Medical CenterComment on above:Result Comment: PERFORMED BY: [place] [address] PATHOLOGIST MEDICAL UNIT SECRETARY HARRY MARTI M.D.Performed By: #### HS TROP, CMP, CK, CBC #### [place] [address] USAGFR/1.73 sq M.predicted MDRD (S/P/Bld) [Vol rate/Area] mL/min/{1.73_m2}[facility] HospitalComment on above: Performed By: #### HS TROP, CMP, CK, CBC #### [place] [address] USAGlobulin (S) [Mass/Vol]2.7 g/dLWood County HospitalComment on above:Performed By: #### HS TROP, CMP, CK, CBC #### [place] [address] USAGlucose [Mass/Vol]94 mg/pPNreapt81-335RvywhmbnuMercy Health Urbana HospitalComment on above:Result Comment: Random Glucose Reference Range is dependent on time and content of last meal. Glucose of more than 200 mg/dL in a nonstressed, ambulatory subject supports the diagnosis of Diabetes Mellitus. ADA recommended reference rangePerformed By: #### HS TROP, CMP, CK, CBC #### [place] [address] USAPotassium [Moles/Vol]3.8 mmol/LNormal3.5-5.1FUC HealthComment on above:Performed By: #### HS TROP, CMP, CK, CBC #### [facility] [address] [place] [address] USAProtein [Mass/Vol]6.9 g/dLNormal6.4-8.9Mer[facility] Urbana HospitalComment on above:Performed By: #### HS TROP, CMP, CK, CBC #### [place] [address] USASodium [Moles/Vol]138 mmol/DVsegas775-279JlyentxycMercy Health Urbana HospitalComment on above:Performed By: #### HS TROP, CMP, CK, CBC #### [place] [address] USAUrea nitrogen [Mass/Vol]18 mg/dLNormal7-25Mer[facility] Urbana HospitalComment on above:Performed By: #### HS TROP, CMP, CK, CBC #### [place] [address] USACreatine Kinaseon [id number] [Catalytic activity/Vol]113 U/QBbgzhh54-515VrawnmqpbMercy Health Urbana HospitalComment on above:Performed By: #### HS TROP, CMP, CK, CBC #### [place] [address] USATroponin I High Sensitivityon 47-17-3661Uernurcu I High Sensitivity7.8 pg/mLNormal0.0-20.0Mer[facility] Health Urbana HospitalComment on above:Result Comment: PERFORMED BY: [place] [address] PATHOLOGIST MEDICAL UNIT SECRETARY HARRY MARTI M.D.Performed By: #### HS TROP, CMP, CK, CBC #### [place] [address] USAUrinalysison 64-55-8510Nfnggtqygs (U)ClearNormalClear [facility] Urbana HospitalComment on above:Order Comment: Name Collection Type:: Clean-Voided MidstreamPerformed By: #### HS TROP, CMP, CK, CBC #### [facility] [address] [id number] USABilirubin,UrineNegativeNormalNegativeMercy Health Urbana HospitalComment on above:Order Comment: Name Collection Type:: Clean- Voided MidstreamPerformed By: #### HS TROP, CMP, CK, CBC #### [facility] [address] [place], [place] [id number] USAColor (U)YellowNormalYellowMercy Health Urbana HospitalComment on above:Order Comment: Name Collection Type:: Clean-Voided MidstreamPerformed By: #### HS TROP, CMP, CK, CBC #### [facility] [address] [place] [address] USAGlucose Ql (U)NormalNormalNormBluffton HospitalComment on above:Order Comment: Name Collection Type:: Clean-Voided MidstreamPerformed By: #### HS TROP, CMP, CK, CBC #### [facility] [address] [place] [address] USAKetones Ql (U)NegativeNormalNegDelaware County HospitalComment on above:Order Comment: Name Collection Type:: Clean- Voided MidstreamPerformed By: #### HS TROP, CMP, CK, CBC #### [facility] [address] [place], [place] [address] USALeukocyte esterase Test strip Ql (U)NegativeNormalWright-Patterson Medical CenterComment on above:Order Comment: Name Collection Type:: Clean-Voided MidstreamPerformed By: #### HS TROP, CMP, CK, CBC #### [facility] [address] [place], [place] [id number] USANitrite,UrineNegativeNormalNegativeMercy Health Urbana HospitalComment on above:Order Comment: Name Collection Type:: Clean- Voided MidstreamPerformed By: #### HS TROP, CMP, CK, CBC #### [facility] [address] [place], [place] [id number] USAOccult Blood,UrineNegativeNormalNegDelaware County HospitalComment on above:Order Comment: Name Collection Type:: Clean- Voided MidstreamResult Comment: PERFORMED BY: [place] [address] PATHOLOGIST MEDICAL UNIT SECRETARY HARRY MARTI M.D.Performed By: #### HS TROP, CMP, CK, CBC #### [place] [address] USApH (U)5.5 [pH]Normal5.0-9.0Mer[facility] Urbana HospitalComment on above:Order Comment: Name Collection Type:: Clean-Voided MidstreamPerformed By: #### HS TROP, CMP, CK, CBC #### [place] [address] USAProtein,UrineNegativeNormalNegativeMercy Health Urbana HospitalComment on above:Order Comment: Name Collection Type:: Clean- Voided MidstreamPerformed By: #### HS TROP, CMP, CK, CBC #### [place] [address] USASpecificy Gillett,Urine1.511Dabpzb3.001-1.030Mer[facility] Urbana HospitalComment on above:Order Comment: Name Collection Type:: Clean-Voided MidstreamPerformed By: #### HS TROP, CMP, CK, CBC #### [place] [address] USAUrobilinogen,UrineNormalNormalNormalMercy Health Urbana HospitalComment on above:Order Comment: Name Collection Type:: Clean- Voided MidstreamPerformed By: #### HS TROP, CMP, CK, CBC #### [place] [address] USAXR chest 2V*on 64-87-2421FV chest 2V*[facility] [place] [address] [place] [address] XRay Report Signed Patient: Yonatan Patel MR#: [id number] 6 : 1945 Acct:[id number] Age/Sex: 78 / M ADM Date: 06/20/23 Loc: Room: [address] [place] [address] Type: ADM INOo Attending Dr: Jassi Arias [...] Daisha Fernandez M.D.06/20/2023 11:21 AM Dictation Location: [place] [address] Transcribed By: [facility] 06/20/23 1121 Dictated By: Daisha Fernandez II, MD 06/20/23 1120 Signed By: 06/20/23 1121NormBluffton HospitalAlanine aminotransferase [Enzymatic activity/volume] in Serum or PlasmaOrdered By: PROVIDER TEMP on 68-93-3009CMH [Catalytic activity/Vol]31 U/L7-52Mer[facility] Urbana HospitalAlbumin [Mass/volume] in Serum or Plasma by Bromocresol green (BCG) dye binding methoOrdered By: PROVIDER TEMP on 08-66-8615Qwjjiav BCG dye [Mass/Vol] 4.2 g/dL3.5-5.7FUC HealthAlkaline phosphatase [Enzymatic activity/volume] in Serum or PlasmaOrdered By: PROVIDER TEMP on 28-19-6071IZT [Catalytic activity/Vol]53 U/J51-974XjqheqsucMercy Health Urbana HospitalAspartate aminotransferase [Enzymatic activity/volume] in Serum or PlasmaOrdered By: PROVIDER TEMP on 71-95-4192PGP [Catalytic activity/Vol]33 U/G78-28UnjoipyzyMercy Health Urbana HospitalBasophils Auto (Bld) [#/Vol]Ordered By: PROVIDER TEMP on 81-36-5831Tcvwztght (Bld) [#/Vol]0.0 10*3/uL0.0-0.2FUC HealthBasophils/100 WBC Auto (Bld)Ordered By: PROVIDER TEMP on 06-19-2023 Basophils/100 WBC (Bld)0.4 %.Mer[facility] Urbana HospitalBilirubin Auto test strip Ql (U)Ordered By: PROVIDER TEMP on 47-02-0819Xojejonpb Ql (U)Negative NegativeMercy Health Urbana HospitalBilirubin.total [Mass/volume] in Serum or PlasmaOrdered By: PROVIDER TEMP on 22-69-9077Sykfdvglz [Mass/Vol]1.0 mg/dL 0.3-1.0Mer[facility]rbana HospitalCalcium [Mass/volume] in Serum or Plasma Ordered By: PROVIDER TEMP on 47-71-5047Oiuifhd [Mass/Vol]9.8 mg/dL8.6-10.3 [facility]ana HospitalCarbon dioxide, total [Moles/volume] in Serum or PlasmaOrdered By: PROVIDER TEMP on 75-27-4083FW8 [Moles/Vol]25.6 mmol/L 21.0-31.0Mer[facility]rbana HospitalChloride [Moles/volume] in Serum or PlasmaOrdered By: PROVIDER TEMP on 99-26-1439Ecmemtyu [Moles/Vol]107 mmol/L 98-107Mer[facility] Urbana HospitalCreatine kinase [Enzymatic activity/volume] in Serum or PlasmaOrdered By: PROVIDER TEMP on 02-59-4391XW [Catalytic activity/Vol]113 U/U76-741ZtxnszzafMercy Health Urbana HospitalCreatinine [Mass/volume] in Serum or PlasmaOrdered By: PROVIDER TEMP on 06-19-2023 Creatinine [Mass/Vol]0.95 mg/dL0.70-1.30[facility] Eosinophils Auto (Bld) [#/Vol]Ordered By: PROVIDER TEMP on 71-57-4745Ggnpyixteli (Bld) [#/Vol]0.0 10*3/uL0.0-0.45[facility] Eosinophils/100 WBC Auto (Bld)Ordered By: PROVIDER TEMP on 06-19-2023 Eosinophils/100 WBC (Bld)0.6 %.Mer[facility] Urbana HospitalErythrocyte distribution width Auto (RBC) [Ratio]Ordered By: PROVIDER TEMP on 06-19-2023 Erythrocyte distribution width (RBC) [Ratio]14.9 %12.0-14.8Mer[facility] Urbana HospitalGlobulin Calc (S) [Mass/Vol]Ordered By: PROVIDER TEMP on 94-40-2154Kguwvxzy (S) [Mass/Vol]2.7 g/dLMercy Health Urbana Hospital Glucose [Mass/volume] in Serum or PlasmaOrdered By: PROVIDER TEMP on 06-19-2023 Glucose [Mass/Vol]94 mg/sM26-741ZcvowwpmyMercy Health Urbana HospitalComment on above:ADA recommended reference rangeRandom Glucose Reference Range is dependent on time and content of last meal. Glucose of more than 200 mg/dL in a nonstressed, ambulatory subject supports the diagnosisof Diabetes Mellitus. Hematocrit Auto (Bld) [Volume fraction]Ordered By: PROVIDER TEMP on 06-19-2023 Hematocrit (Bld) [Volume fraction]43.3 %38.8-50.0Mer[facility] Urbana HospitalHemoglobin [Mass/volume] in BloodOrdered By: PROVIDER TEMP on 06-19-2023 Hemoglobin (Bld) [Mass/Vol]14.8 g/dL13.0-17.0[facility] Ketones Auto test strip (U) [Mass/Vol]Ordered By: PROVIDER TEMP on 06-19-2023 Ketones (U) [Mass/Vol]NegativeNegativeMercy Health Urbana Hospital Leukocytes [#/volume] corrected for nucleated erythrocytes in Blood by Automated counOrdered By: PROVIDER TEMP on 25-30-4710KPO corrected for nucl RBC Auto (Bld) [#/Vol]4.8 10*3/uL4.1-10.5FUC HealthLymphocytes Auto (Bld) [#/Vol]Ordered By: PROVIDER TEMP on 02-69-9333Qmkcmelxnqb (Bld) [#/Vol]1.0 10*3/uL1.00-4.8Mer[facility] Urbana HospitalLymphocytes/100 WBC Auto (Bld)Ordered By: PROVIDER TEMP on 08-73-9673Yddhtoeeugc/100 WBC (Bld)20.8 % .[facility]rbana HospitalMCH Auto (RBC) [Entitic mass]Ordered By: PROVIDER TEMP on 51-46-5582FWZ (RBC) [Entitic mass]30.0 pg27.5-35.2FUC HealthMCHC Auto (RBC) [Mass/Vol]Ordered By: PROVIDER TEMP on 65-29-0584ZHEJ (RBC) [Mass/Vol]34.2 g/dL32.5-35.6FUC HealthMCV Auto (RBC) [Entitic vol]Ordered By: PROVIDER TEMP on 24-05-3712KIO (RBC) [Entitic vol]87.6 fL83.5-101Mer[facility] Urbana HospitalMonocyte distribution width [Entitic volume] in Blood by AutomatedOrdered By: PROVIDER TEMP on 24-64-9940Fvkhkbsd distribution width Auto (Bld) [Entitic vol]24.01 % 0.00-20.00Mer[facility] Urbana HospitalComment on above:For adults in ED, MDW > 20.0 may be associated with a higher risk of sepsis during the first 12 h rs of hospital admissionMonocytes Auto (Bld) [#/Vol]Ordered By: PROVIDER TEMP on 58-84-6778Mlunxhdjo (Bld) [#/Vol]0.8 10*3/uL0.0-0.8Mer[facility]rbana HospitalMonocytes/100 WBC Auto (Bld)Ordered By: PROVIDER TEMP on 06-19-2023 Monocytes/100 WBC (Bld)15.6 %.Mer[facility]rbana HospitalNeutrophils Auto (Bld) [#/Vol]Ordered By: PROVIDER TEMP on 00-32-7214Bytcwknmaqs (Bld) [#/Vol]3.0 10*3/uL1.8-7.7FUC HealthNeutrophils/100 WBC Auto (Bld) Ordered By: PROVIDER TEMP on 82-49-6953Tnjbxeqkmhc/100 WBC (Bld)62.6 %.Mer[facility]rbana HospitalNo Panel InformationOrdered By: PROVIDER TEMP on 17-33-8361Bjfuotegf GFR (CKD-EPI)> 60.0 mL/MinMercy Health Urbana Hospital Pharmacy Creatinine Clearance (Chem70.44[facility] Nucleated erythrocytes [Presence] in Blood by Automated countOrdered By: PROVIDER TEMP on 34-03-2250Yzxkrxurg RBC Auto Ql (Bld)0.4 /100{WBC}0-0.5 [facility]ana HospitalPlatelet mean volume Auto (Bld) [Entitic vol] Ordered By: PROVIDER TEMP on 49-55-5000Ceombkka mean volume (Bld) [Entitic vol] 7.9 fL6.6-10.1FUC HealthPlatelets Auto (Bld) [#/Vol] Ordered By: PROVIDER TEMP on 69-04-7233Kuaekzsta (Bld) [#/Vol]154 10*3/sH165-364 [facility]ana HospitalPotassium [Moles/volume] in Serum or Plasma Ordered By: PROVIDER TEMP on 57-74-3388Tbgveapcx [Moles/Vol]3.8 mmol/L3.5-5.1 [facility] HospitalProtein Auto test strip (U) [Mass/Vol]Ordered By: PROVIDER TEMP on 81-22-2892Cfdnfad (U) [Mass/Vol]NegativeNegativeMercy Health Urbana HospitalProtein [Mass/volume] in Serum or PlasmaOrdered By: PROVIDER TEMP on 57-91-0563Zedxrda [Mass/Vol]6.9 g/dL6.4-8.9Mer[facility]ana HospitalRBC Auto (Bld) [#/Vol]Ordered By: PROVIDER TEMP on 10-62-1759CWY (Bld) [#/Vol]4.94 10*6/uL3.90-5.60Pro[facility]ostoria Community Hospitalerum or plasma albumin/globulin mass ratioOrdered By: PROVIDER TEMP on 06-19-2023 Albumin/Globulin [Mass ratio]1.6 {ratio}[facility] Hospitalerum or plasma anion gap determinationOrdered By: PROVIDER TEMP on 47-19-0702Kogrx gap [Moles/Vol]9.2 mmol/L6.0-15.0[facility] Hospitalodium [Moles/volume] in Serum or PlasmaOrdered By: PROVIDER TEMP on 12-40-5333Nbnfva [Moles/Vol]138 mmol/G894-575NqgjrlkguMercy Health Urbana HospitalTroponin I.cardiac [Mass/volume] in Serum or Plasma by Detection limit <= 0.01 ng/Ordered By: PROVIDER TEMP on 50-86-9330Cbnydfbg I.cardiac DL <= 0.01 ng/mL [Mass/Vol]7.8 pg/mL0.0-20.0Mer[facility]ana HospitalUrea nitrogen [Mass/volume] in Serum or PlasmaOrdered By: PROVIDER TEMP on 54-23-7497Xbtm nitrogen [Mass/Vol]18 mg/dL7-25Mer[facility]ana HospitalUrine appearanceOrdered By: PROVIDER TEMP on 73-35-8455Yeaaoupoqa (U)ClearClearFUC HealthUrine colorOrdered By: PROVIDER TEMP on 27-84-9591Vdcgt (U)YellowYellowMercy Health Urbana HospitalUrine glucose measurement by automated test strip (mass/volume)Ordered By: PROVIDER TEMP on 48-35-4233Pnpzlng Auto test strip (U) [Mass/Vol]Normal mg/dLWood County HospitalUrine hemoglobin detection by automated test stripOrdered By: PROVIDER TEMP on 06-19-2023 Hemoglobin Auto test strip Ql (U)NegativeNegDelaware County HospitalUrine leukocyte esterase detection by automated test stripOrdered By: PROVIDER TEMP on 19-82-2511Mpftzqmhk esterase Auto test strip Ql (U)Negative [facility] SystemUrine nitrite detection by automated test stripOrdered By: PROVIDER TEMP on 79-09-9635Wjhoyjr Auto test strip Ql (U) NegativeNegDelaware County HospitalUrobilinogen Auto test strip (U) [Mass/Vol]Ordered By: PROVIDER TEMP on 54-61-7585Lhuuwmhfdlhh (U) [Mass/Vol] Normal mg/dLWood County HospitalWBC Auto (Bld) [#/Vol]Ordered By: PROVIDER TEMP on 69-85-7700IKE (Bld) [#/Vol]4.8 10*3/uL4.1-10.5FUC HealthpH Auto test strip (U)Ordered By: PROVIDER TEMP on 92-10-1962mS (U)1.005 [pH]1.001-1.030[facility]ana HospitalpH (U)5.5 [pH]5.0-9.0Mer[facility]ana HospitalECH echo transthoracicon 03-02-2023 [facility] [place] [address] [place], [place] [id number] Echocardiogram Signed Patient: Yonatan Patel MR#: [id number] 6 : 1945 Acct:[id number] Age/Sex: 77 / M ADM Date: 03/01/23 Loc: Room: [address] [place] [address] Type: ADM INOo Attending Dr: Angely Lee DO Ordering Provider: Bobo Villagomez MD Date of Service: 03/01/23 [facility] echo transthoracic: Neuro Symptoms/Deficit Copies to: Sinan Sahu MD, FACC Bobo Villagomez MD Weight: 188 lb Performed By: VIANEY Alvarado BSA: 2.1 m2 BP: 137/71 mmHg HR: 65 Reason For Study: Neuro Symptoms/Deficit History: Hyperlipidemia,Hypertension,Former smoker Interpretation Summary Mild concentric left ventricular [...] 03/02/23 0958 Signed By: Sinan Sahu MD, [facility] 03/02/[address] [place], [place] [address]MR cervical spine wo conon 11-13-7763SF cervical spine wo [place] [address] MRI Report Signed Patient: Yonatan Patel MR#: [id number] 6 : 1945 Acct:[id number] Age/Sex: 77 / M ADM Date: 03/01/23 Loc: Room: [address] [place] [address] Type: ADM INOo Attending Dr: Angely Lee [...] Daisha Fernandez M.D.03/02/2023 5:11 PM Dictation Location: [place] [address] Transcribed By: [facility] 03/02/231710 Dictated By: Daisha Fernandez II, MD 03/02/23 1700 Signed By: 03/02/23 171NoC[facility] wo [facility] 20-23-5765LR lumbar spine [place] [facility] [place] [address] MRI Report Signed Patient: Yonatan Patel MR#: [id number] [birth year] : 1945 Acct:[id number] Age/Sex: 77 / M ADM Date: 03/01/23 Loc: Room: [address] [place] [address] Type: ADM INOo Attending Dr: Angely Lee [...] Daisha Fernandez M.D.03/02/2023 5:18 PM Dictation Location: [place] [address] Transcribed By: MICHEL 03/02/23 171 Dictated By: Daisha Fernandez II, MD 03/02/231710 Signed By: 03/02/231717NoFairfield Medical CenterA1C with Estimated Average Gluon 02-69-9581Ghnzkci [Mass/Vol]123 mg/dLNoFairfield Medical CenterComment on above:Order Comment: Comment add onResult Comment: PERFORMED BY: [place] [address] PATHOLOGIST MEDICAL UNIT SECRETARY HARRY MARTI M.D.Performed By: #### A1C WT eA, LIPID #### [facility] [address] [place] [address] VUSLnE0m (Bld) [Mass fraction]5.9 %High4.3-5.6FUC HealthComment on above:Order Comment: Comment add onResult Comment: Increased risk for diabetes: 5.7 - 6.4 diabetes: >6.4 glycemic control for adults with diabetes: <7.0Performed By: #### A1C WTH eA, LIPID #### [facility] [address] [place] [address] USAActivated partial thromboplastin time (aPTT) in platelet poor plasma by coagulation aOrdered By: Alejo Lynn on 88-05-0520nYKI Coag (PPP) [Time]27.2 s25.1-36.5FUC HealthAlanine aminotransferase [Enzymatic activity/volume] in Serum or PlasmaOrdered By: Alejo Lynn on 20-62-6219UKD [Catalytic activity/Vol]34 U/L7-52[facility] HospitalAlbumin [Mass/volume] in Serum or Plasma by Bromocresol green (BCG) dye binding methoOrdered By: Alejo Lynn on 58-28-6219Tsgeapo BCG dye [Mass/Vol]4.4 g/dL3.5-5.7FUC HealthAlkaline phosphatase [Enzymatic activity/volume] in Serum or PlasmaOrdered By: Alejo Lynn on 08-07-9927SED [Catalytic activity/Vol]61 U/V65-651CmujxcykpMercy Health Urbana HospitalAspartate aminotransferase [Enzymatic activity/volume] in Serum or PlasmaOrdered By: Alejo Lynn on 62-35-6492ASG [Catalytic activity/Vol]30 U/F85-19TkwjzoecbMercy Health Urbana HospitalB-Type Natriuretic Peptideon 64-79-4067Jzzbvvvefhb peptide B (Bld) [Mass/Vol]96.0 pg/mLNormal5-100[facility]ana HospitalComment on above:Result Comment: PERFORMED BY: [place] [address] PATHOLOGIST MEDICAL UNIT SECRETARY HARRY MARTI M.D.Performed By: #### HS TROP, CMP, CK, CBC #### [facility] [address] [place] [address] USABasic Metabolic Panelon 20-25-5235Znhvv gap [Moles/Vol] 10.3 mmol/LNormal6.0-15.0[facility]ana HospitalComment on above: Performed By: #### HS TROP, CMP, CK, CBC #### [facility] [address] [place] [address] USACalcium [Mass/Vol]9.7 mg/dLNormal8.6-10.3FUC HealthComment on above:Performed By: #### HS TROP, CMP, CK, CBC #### [facility] [address] [place] [address] USAChloride [Moles/Vol]107 mmol/VPpcdru08-180YdbuwagauMercy Health Urbana HospitalComment on above:Performed By: #### HS TROP, CMP, CK, CBC #### [facility] [address] [place] [address] USACO2 [Moles/Vol]26.0 mmol/KIbinbj04.0-31.0[facility] HospitalComment on above:Performed By: #### HS TROP, CMP, CK, CBC #### [facility] [address] [place] [address] USACreatinine [Mass/Vol]0.91 mg/dLNormal0.70-1.30[facility] HospitalComment on above:Performed By: #### HS TROP, CMP, CK, CBC #### [facility] [address] [place] [address] USACreatinine Clr Calc Cpglypsg60.53NormalMercy Health Urbana HospitalComment on above:Result Comment: PERFORMED BY: [place] [address] PATHOLOGIST MEDICAL UNIT SECRETARY HARRY MARTI M.D.Performed By: #### HS TROP, CMP, CK, CBC #### [facility] [address] [place] [address] USAGFR/1.73 sq M.predicted MDRD (S/P/Bld) [Vol rate/Area] mL/min/{1.73_m2}[facility] County HospitalComment on above: Performed By: #### HS TROP, CMP, CK, CBC #### [facility] [address] [place] [address] USAGlucose [Mass/Vol]106 mg/sPZqvt53-016NabpqfwfiMercy Health Urbana HospitalComment on above:Result Comment: Random Glucose Reference Range is dependent on time and content of last meal. Glucose of more than 200 mg/dL in a nonstressed, ambulatory subject supports the diagnosis of Diabetes Mellitus. ADA recommended reference rangePerformed By: #### HS TROP, CMP, CK, CBC #### [facility] [address] [place] [address] USAPotassium [Moles/Vol]4.3 mmol/LNormal3.5-5.1FUC HealthComment on above:Performed By: #### HS TROP, CMP, CK, CBC #### [facility] [address] [place] [address] USASodium [Moles/Vol]139 mmol/ETdsfdw654-392IknwabpapMercy Health Urbana HospitalComment on above:Performed By: #### HS TROP, CMP, CK, CBC #### [facility] [address] [place] [address] USAUrea nitrogen [Mass/Vol]16 mg/dLNormal7-25Mer[facility]ana HospitalComment on above:Performed By: #### HS TROP, CMP, CK, CBC #### [facility] [address] [place] [address] USABasophils Auto (Bld) [#/Vol]Ordered By: Alejo Lynn on 21-46-7194Bsxmcjjhw (Bld) [#/Vol]0.0 10*3/uL0.0-0.2FUC HealthBasophils/100 WBC Auto (Bld)Ordered By: Alejo Lynn on 03-01-2023 Basophils/100 WBC (Bld)0.7 %.Mer[facility]ana HospitalBilirubin Test strip Ql (U)Ordered By: Alejo Lynn on 76-21-1226Vsgbcwoyx Ql (U)Negative NegativeMercy Health Urbana HospitalBilirubin.direct [Mass/volume] in Serum or PlasmaOrdered By: Alejo Lynn on 93-76-8172Tqhuibojk.direct [Mass/Vol]0.30 mg/dL0.03-0.18FUC HealthBilirubin.total [Mass/volume] in Serum or PlasmaOrdered By: Alejo Lynn on 52-58-6789Ybosuktbo [Mass/Vol]1.7 mg/dL0.3-1.0[facility]rbana HospitalComment on above:Samples from patients who have taken Naproxen have shown spurious elevation in Total Bilirubin levels. A metabolite of Naproxen, O-desmethylnaproxen, has been shown to interfere with the Jennicole-Kary method for measuring Total Bilirubin.CT head stroke alert wo noelon 53-27-7730OQ head stroke alert wo [facility] [place] [id number] CT Scan Report Signed Patient: Yonatan Patel MR#: [id number] 6 : 1945 Acct:[id number] Age/Sex: 77 / M ADM Date: 03/01/23 Loc: ER Room: Type: [facility] ER Attending Dr: Copies to: Alejo Lynn [...] Selena Reid M.D.03/01/2023 8:13 AM Dictation Location: [place] [address] Transcribed By: MICHEL 03/01/23 0813 Dictated By: Selena Reid MD 03/01/23 0807 Signed By: 03/01/2313Wood County HospitalCalcium [Mass/volume] in Serum or PlasmaOrdered By: Alejo Lynn on 23-75-7913Wmaihmr [Mass/Vol]9.7 mg/dL 8.6-10.3FUC HealthCarbon dioxide, total [Moles/volume] in Serum or PlasmaOrdered By: Alejo Lynn on 57-36-2464TI2 [Moles/Vol]26.0 mmol/L 21.0-31.0Mer[facility]rbana HospitalChloride [Moles/volume] in Serum or PlasmaOrdered By: Alejo Lynn on 13-14-6557Jpzwaysv [Moles/Vol]107 mmol/L98-107 [facility] HospitalColor Auto (U)Ordered By: Alejo Lynn on 46-71-1906Hnful (U)YellowYellowMercy Health Urbana HospitalComplete Blood Count Auto Diffon 87-47-6231Afurwxzwb (Bld) [#/Vol]0.0 10*3/uLNormal0.0-0.2 [facility]ana HospitalComment on above:Result Comment: PERFORMED BY: [place] [address] PATHOLOGIST MEDICAL UNIT SECRETARY HARRY MARTI M.D.Performed By: #### HS TROP, CMP, CK, CBC #### [place] [address] USABasophils/100 WBC (Bld)0.7 %Normal.[facility] HospitalComment on above:Performed By: #### HS TROP, CMP, CK, CBC #### [place] [address] USAEosinophils (Bld) [#/Vol]0.1 10*3/uLNormal0.0-0.45 [facility] HospitalComhillsdale hospital on above:Performed By: #### HS TROP, CMP, CK, CBC #### [place] [address] USAEosinophils/100 WBC (Bld)1.4 %Normal.[facility] HospitalComment on above:Performed By: #### HS TROP, CMP, CK, CBC #### [place] [address] USAErythrocyte distribution width (RBC) [Ratio]14.5 %Normal 12.0-14.8[facility] HospitalComhillsdale hospital on above:Performed By: #### HS TROP, CMP, CK, CBC #### [place] [address] USAHematocrit (Bld) [Volume fraction]43.2 %Jcscna01.8-50.0 [facility] HospitalComment on above:Performed By: #### HS TROP, CMP, CK, CBC #### [place] [address] USAHemoglobin (Bld) [Mass/Vol]14.9 g/tZLpdejq70.0-17.0 [facility] HospitalComment on above:Performed By: #### HS TROP, CMP, CK, CBC #### [place] [address] USALymphocytes (Bld) [#/Vol]1.3 10*3/uLNormal1.00-4.8 [facility] HospitalComment on above:Performed By: #### HS TROP, CMP, CK, CBC #### [facility] [address] [place] [address] USALymphocytes/100 WBC (Bld)23.7 %Normal.[facility] HospitalComment on above:Performed By: #### HS TROP, CMP, CK, CBC #### [facility] [address]H (RBC) [Entitic mass]29.6 geSduvyv04.5-35.2FUC HealthComment on above:Performed By: #### HS TROP, CMP, CK, CBC #### [facility] [address]V (RBC) [Entitic vol]86.1 pJNqrrrd31.5-101Mer[facility]rbana HospitalComment on above:Performed By: #### HS TROP, CMP, CK, CBC #### [facility] [address] [place] [address] USAMean Corpuscular HGB Conc34.4 g/uRLzkoay56.5-35.6FUC HealthComment on above:Performed By: #### HS TROP, CMP, CK, CBC #### [place] [address] USAMonocytes (Bld) [#/Vol]0.4 10*3/uLNormal0.0-0.8[facility]rbana HospitalComment on above:Performed By: #### HS TROP, CMP, CK, CBC #### [facility] [address] [place] [address] USAMonocytes/100 WBC (Bld)17.75 %Normal0.00-20.00Mer[facility] Urbana HospitalComment on above:Performed By: #### HS TROP, CMP, CK, CBC #### [place] [address] USAMonocytes/100 WBC (Bld)8.3 %Normal.[facility] HospitalComment on above:Performed By: #### HS TROP, CMP, CK, CBC #### [facility] [address] [place] [address] USANeutrophils (Bld) [#/Vol]3.5 10*3/uLNormal1.8-7.7FUC HealthComment on above:Performed By: #### HS TROP, CMP, CK, CBC #### [facility] [address] [place] [address] USANeutrophils/100 WBC (Bld)65.9 %Normal.[facility]rb[facility] HospitalComment on above:Performed By: #### HS TROP, CMP, CK, CBC #### [facility] [address] [place] [address] USANRBC%0.3 /100{WBC}Normal0-0.5[facility]Comh[facility] hospital on above:Performed By: #### HS TROP, CMP, CK, CBC #### [facility] [address] [place] [address] USAPlatelet mean volume (Bld) [Entitic vol]8.0 fLNormal 6.6-10.1[facility] on above:Performed By: #### HS TROP, CMP, CK, CBC #### [place] [address] USAPlatelets (Bld) [#/Vol]143 10*3/vRAib958-350KvogtgguhMercy Health Urbana HospitalComment on above:Performed By: #### HS TROP, CMP, CK, CBC #### [facility] [address] [place] [address] USARBC (Bld) [#/Vol]5.02 10*6/uLNormal3.90-5.60[facility] HospitalComhillsdale hospital on above:Performed By: #### HS TROP, CMP, CK, CBC #### [place] [address] USAWBC (Bld) [#/Vol]5.4 10*3/uLNormal4.1-10.5FUC HealthComment on above:Performed By: #### HS TROP, CMP, CK, CBC #### [facility] [address] [place] [address] USACreatine Kinaseon 93-01-1490WX [Catalytic activity/Vol]178 U/GKsrrdu25-478Vhszakclb[address] [place], [place] [address]Comment on above:Performed By: #### HS TROP, CMP, CK, CBC #### [facility] [address] [place] [address] USACreatine kinase [Enzymatic activity/volume] in Serum or PlasmaOrdered By: Alejo Lynn on 33-72-8370PT [Catalytic activity/Vol]178 U/L [facility]ana HospitalCreatinine [Mass/volume] in Serum or PlasmaOrdered By: Alejo Lynn on 39-64-1654Axrdpjrjpb [Mass/Vol]0.91 mg/dL 0.70-1.30Mer[facility] Urbana HospitalECG 12 lead ECGon 26-59-0092SDC 12 lead ECGUC [facility] [place] [address] [place], [place] [id number] Electrocardiograph Report Signed Patient: Yonatan Patel MR#: [id number] 6 : 1945 Acct:[id number] Age/Sex: 77 / M ADM Date: 03/01/23 Loc: Room: [address] [place] [address] Type: ADM INOo Attending Dr: Bobo Villagomez [...] longer present Confirmed by Alejo Lynn DO ([id number]) on 03/01/2023 3:12:57 PM Referred By: Electronically Signed By:Alejo Lynn DO Transcribed By: MUS Signed By Alejo Lynn DO 3 1513NormalMercy Health Urbana HospitalEosinophils Auto (Bld) [#/Vol] Ordered By: Alejo Lynn on 52-16-2887Rvsojysbmjg (Bld) [#/Vol]0.1 10*3/uL 0.0-0.45Mer[facility]rbana HospitalEosinophils/100 WBC Auto (Bld)Ordered By: Alejo Lynn on 41-78-2157Znnmavjfiyn/100 WBC (Bld)1.4 %.[facility]rbana HospitalErythrocyte distribution width Auto (RBC) [Ratio]Ordered By: Alejo Lynn on 20-43-8557Poupigprfhz distribution width (RBC) [Ratio]14.5 %12.0-14.8 [facility]rbana HospitalGlobulin Calc (S) [Mass/Vol]Ordered By: Alejo Lynn on 72-52-2055Vijudrhk (S) [Mass/Vol]2.3 g/dLMercy Health Urbana HospitalGlucose [Mass/volume] in Serum or PlasmaOrdered By: Alejo Lynn on 81-97-5636Juckreg [Mass/Vol]106 mg/fY05-726ZdscqxwgsMercy Health Urbana Hospital Comment on above:ADA recommended reference rangeRandom Glucose Reference Range is dependent on time and content of last meal. Glucose of more than 200 mg/dL in a nonstressed, ambulatory subject supports the diagnosisof Diabetes Mellitus. Hematocrit Auto (Bld) [Volume fraction]Ordered By: Alejo Lynn on 03-01-2023 Hematocrit (Bld) [Volume fraction]43.2 %38.8-50.0[facility]rbana HospitalHemoglobin [Mass/volume] in BloodOrdered By: Alejo Lynn on 03-01-2023 Hemoglobin (Bld) [Mass/Vol]14.9 g/dL13.0-17.0[facility] Hepatic Panelon 95-89-7934Gjbbrjw [Mass/Vol]4.4 g/dLNormal3.5-5.7FUC HealthComment on above:Performed By: #### HS TROP, CMP, CK, CBC #### [facility] [address] [place] [address] USAAlbumin/Globulin [Mass ratio]1.9 {ratio}NormalMercy Health Urbana HospitalComment on above:Performed By: #### HS TROP, CMP, CK, CBC #### [facility] [address] [place] [address] USAALP [Catalytic activity/Vol]61 U/ZIsudda43-229IhsaujkybMercy Health Urbana HospitalComment on above:Performed By: #### HS TROP, CMP, CK, CBC #### [facility] [address] [place] [address] USAALT [Catalytic activity/Vol]34 U/LNormal7-52Mer[facility] Urbana HospitalComment on above:Performed By: #### HS TROP, CMP, CK, CBC #### [facility] [address] [place] [address] USAAST [Catalytic activity/Vol]30 U/YAoegtd79-69LqghkqjzoMercy Health Urbana HospitalComment on above:Performed By: #### HS TROP, CMP, CK, CBC #### [facility] [address] [place] [address] USABilirubin [Mass/Vol]1.7 mg/dLHigh0.3-1.0Mer[facility] Urbana HospitalComment on above:Result Comment: Samples from patients who have taken Naproxen have shown spurious elevation in Total Bilirubin levels. A metabolite of Naproxen, O-desmethylnaproxen, has been shown to interfere with the Jendrassik-Grof method for measuring Total Bilirubin.Performed By: #### HS TROP, CMP, CK, CBC #### [facility] [address] [place] [address] USABilirubin,Indirect1.4 mg/dLNormBluffton HospitalComment on above:Performed By: #### HS TROP, CMP, CK, CBC #### [facility] [address] [place] [address] USABilirubin.indirect [Mass/Vol]0.30 mg/dLHigh0.03-0.18 [facility] CenterComment on above:Performed By: #### HS TROP, CMP, CK, CBC #### [facility] [address] [place] [address] USAGlobulin (S) [Mass/Vol]2.3 g/dLNormalMercy Health Urbana HospitalComment on above:Performed By: #### HS TROP, CMP, CK, CBC #### [facility] [address] [place] [address] USAProtein [Mass/Vol]6.7 g/dLNormal6.4-8.9[facility]rbana HospitalComment on above:Performed By: #### HS TROP, CMP, CK, CBC #### [facility] [address] [place] [address] USAKetones Auto test strip (U) [Mass/Vol]Ordered By: Alejo Lynn on 27-06-6913Lfoogbx (U) [Mass/Vol]NegativeNegativeMercy Health Urbana HospitalLaboratory - CoagulationOrdered By: Alejo Lynn on 27-38-4894BT Coag (PPP) [Time]11.6 s9.0-12.9Mer[facility]rbana HospitalLeukocytes [#/volume] corrected for nucleated erythrocytes in Blood by Automated coun Ordered By: Alejo Lynn on 83-21-5980RNX corrected for nucl RBC Auto (Bld) [#/Vol]5.4 10*3/uL4.1-10.5FUC HealthLipid Panelon 31-25-5562Xfvpywjacrb [Mass/Vol]96 mg/tPOjb085-754DofxrvysmMercy Health Urbana HospitalComment on above:Order Comment: Comment add onResult Comment: Chol less than 200 mg/dl low risk Chol 201-239 mg/dl borderline risk Chol 240 mg/dl and greater high riskPerformed By: #### A1C WTH eA, LIPID #### [facility] [address] [place] [address] USACholesterol in HDL [Mass/Vol]36 mg/hGQuymly12-41NmqjhsplxMercy Health Urbana HospitalComment on above:Order Comment: Comment add onResult Comment: HDL CHOL ATP-III CLASSIFICATION Cardiovascular Risk HDL > or equal to 60 mg/dL LOW HDL < 40 mg/dL HIGHPerformed By: #### A1C WTH eA, LIPID #### [facility] [address] [place] [address] USACholesterol.total/Cholesterol in HDL [Mass ratio]2.7 {ratio}Normal<5.0Mer[facility] Urbana HospitalComment on above:Order Comment: Comment add onResult Comment: PERFORMED BY: [place] [id number] PATHOLOGIST MEDICAL UNIT SECRETARY HARRY MARTI M.D.Performed By: #### A1C WTH eA, LIPID #### [facility] [address] [place] [address] USALDL Cholesterol,Pcrqicwsph05 mg/dLNormal0-100Mer[facility] Urbana HospitalComment on above:Order Comment: Comment add onResult Comment: LDL ATP III CLASSIFICATION LDL less than 100 mg/dL Optimal LDL 100-129 mg/dL Near or above optimal LDL 130-159 mg/dL Borderline high LDL 160-189 mg/dL High LDL greater than 189 mg/dL Very highPerformed By: #### A1C WTH eA, LIPID #### [facility] [address] [place] [address] USATriglyceride w/Nuspmr618 mg/dLNormal0-149Mer[facility] Urbana HospitalComment on above:Order Comment: Comment add onResult Comment: TRIG ATP III CLASSIFICATION TRIG less than 150 mg/dL Normal TRIG 150-199 mg/dL Borderline high TRIG 200-500 mg/dL High TRIG greater than 500 mg/dL Very high Standard traceable to the Center for Disease Conrtrol and Prevention (CDC) test method.Performed By: #### A1C WTH eA, LIPID #### [facility] [address] [place] [address] USAVLDL YSDKJRPLOKR02 mg/dLNormBluffton HospitalComment on above:Order Comment: Comment add onPerformed By: #### A1C WTH eA, LIPID #### [facility] [address] [place] [address] USALymphocytes Auto (Bld) [#/Vol]Ordered By: Alejo Lynn on 06-08-4596Gwhkwhnvlme (Bld) [#/Vol]1.3 10*3/uL1.00-4.8[facility]rbana HospitalLymphocytes/100 WBC Auto (Bld)Ordered By: Alejo Lynn on 03-01-2023 Lymphocytes/100 WBC (Bld)23.7 %.Mer[facility]rbana HospitalMCH Auto (RBC) [Entitic mass]Ordered By: Alejo Lynn on 66-26-0269RXM (RBC) [Entitic mass]29.6 pg27.5-35.2FUC HealthMCHC Auto (RBC) [Mass/Vol]Ordered By: Alejo Lynn on 40-59-7592OEYN (RBC) [Mass/Vol]34.4 g/dL32.5-35.6FUC HealthMCV Auto (RBC) [Entitic vol]Ordered By: Alejo Lynn on 11-81-5336JKL (RBC) [Entitic vol]86.1 fL83.5-101Mer[facility]rbana HospitalMonocyte distribution width [Entitic volume] in Blood by AutomatedOrdered By: Alejo Lynn on 43-03-3201Oivqxpvd distribution width Auto (Bld) [Entitic vol]17.75 %0.00-20.00Mer[facility]rbana HospitalMonocytes Auto (Bld) [#/Vol]Ordered By: Alejo Lynn on 74-55-2251Rgpamasqx (Bld) [#/Vol]0.4 10*3/uL 0.0-0.8[facility]ana HospitalMonocytes/100 WBC Auto (Bld)Ordered By: Alejo Lynn on 35-95-3717Vpovccimo/100 WBC (Bld)8.3 %.[facility]ana HospitalNatriuretic peptide B [Mass/Vol]Ordered By: Alejo Lynn on 03-01-2023 Natriuretic peptide B (Bld) [Mass/Vol]96.0 pg/mL5-100Mer[facility]rbana HospitalNeutrophils Auto (Bld) [#/Vol]Ordered By: Alejo Lynn on 03-01-2023 Neutrophils (Bld) [#/Vol]3.5 10*3/uL1.8-7.7[facility] Neutrophils/100 WBC Auto (Bld)Ordered By: Alejo Lynn on 03-01-2023 Neutrophils/100 WBC (Bld)65.9 %.Mer[facility]rbana HospitalNitrite Test strip Ql (U)Ordered By: Alejo Lynn on 29-75-1320Whvujkc Ql (U)NegativeNegative [facility]rbana HospitalNo Panel InformationOrdered By: Alejo Lynn on 50-40-7676Ushxbunxc GFR (CKD-EPI)> 60.0 mL/MinMercy Health Urbana Hospital Pharmacy Creatinine Clearance (Chem76.53[facility] Nucleated erythrocytes [Presence] in Blood by Automated countOrdered By: Alejo Lynn on 98-92-8556Pbcpbqwzd RBC Auto Ql (Bld)0.3 /100{WBC}0-0.5FUC HealthPartial Thromboplastin Timeon 41-65-8596eWNE Coag (Bld) [Time]27.2 yLxhauu25.1-36.5FUC HealthComment on above: Result Comment: PERFORMED BY: [place] [address] PATHOLOGIST MEDICAL UNIT SECRETARY HARRY MARTI M.D.Performed By: #### HS TROP, CMP, CK, CBC #### [place] [address] USAPlatelet mean volume Auto (Bld) [Entitic vol]Ordered By: Alejo Lynn on 42-68-8556Woiuygpz mean volume (Bld) [Entitic vol]8.0 fL6.6-10.1 [facility]rbana HospitalPlatelet poor plasma international normalized ratio (INR) by coagulation assay (relatOrdered By: Alejo Lynn on 11-38-5360RUI Coag (PPP) [Relative time]1.0 {INR}[facility]rbana HospitalComment on above:INR Therapeutic Range A) Pre- and Peroperative OAT started two weeks before surgery. NOT HIP SURGERY: 1.5 - 2.5 HIP SURGERY: 2 - 3B) Primary and secondary prevention of venous THROMBOSIS: 2 - 3C) Active venous thrombosis, pulmonary embolismand prevention of recurrent venous thrombosis: 2 - 3D) Preve ntion of arterial thromboembolismincluding patients with mechanical heart valves: 3 - 4.5Platelets Auto (Bld) [#/Vol]Ordered By: Alejo Lynn on 03-01-2023 Platelets (Bld) [#/Vol]143 10*3/qL483-398HenttdziqMercy Health Urbana Hospital Potassium [Moles/volume] in Serum or PlasmaOrdered By: Alejo Lynn on 03-01-2023 Potassium [Moles/Vol]4.3 mmol/L3.5-5.1FUC HealthProtein Auto test strip (U) [Mass/Vol]Ordered By: Alejo Lynn on 39-47-6304Awdzxby (U) [Mass/Vol]NegativeNegativeMercy Health Urbana HospitalProtein [Mass/volume] in Serum or PlasmaOrdered By: Alejo Lynn on 71-51-6908Flsmllr [Mass/Vol]6.7 g/dL6.4-8.9[facility]ana HospitalProthrombin Time INRon 69-50-1662CGJ Coag (PPP) [Relative time]1.0 {INR}NormalMercy Health Urbana Hospital Comment on above:Result Comment: INR Therapeutic Range A) Pre- and [...] patients with mechanical heart valves: 3 - 4.5Performed By: #### HS TROP, CMP, CK, CBC #### [facility] [address] [place] [address] USAPT Coag (PPP) [Time]11.6 sNormal9.0-12.9Mer[facility] Urbana HospitalComment on above:Performed By: #### HS TROP, CMP, CK, CBC #### [facility] [address] [place] [address] USARBC Auto (Bld) [#/Vol]Ordered By: Alejo Lynn on 21-10-3445GZG (Bld) [#/Vol]5.02 10*6/uL3.90-5.60Pro[facility]ost[facility] Community Hospitalerum or plasma albumin/globulin mass ratioOrdered By: Alejo Lynn on 55-28-2803Yqmpizs/Globulin [Mass ratio]1.9 {ratio}[facility] Hospitalerum or plasma anion gap determinationOrdered By: Alejo Lynn on 89-23-8382Pwysk gap [Moles/Vol]10.3 mmol/L6.0-15.0[facility] Hospitalerum or plasma non-glucuronidated bilirubin measurement (mass/volume) Ordered By: Alejo Lynn on 86-02-9387Npgnybqel.indirect [Mass/Vol]1.4 mg/dL [facility] Hospitalodium [Moles/volume] in Serum or PlasmaOrdered By: Alejo Lynn on 41-30-5290Jkozai [Moles/Vol]139 mmol/L498-804JzrgodmdpProMedica Fostoria Community Hospitalpecific gravity Auto test strip (U) [Rel density]Ordered By: Alejo Lynn on 77-63-4667Xgdlofru gravity (U) [Rel density]1.0141.001-1.030 [facility]rbana HospitalTroponin I High Sensitivityon 03-01-2023 Troponin I High Sensitivity8.1 pg/mLNormal0.0-20.0[facility]rbana HospitalComment on above:Result Comment: PERFORMED BY: [place] [address] PATHOLOGIST MEDICAL UNIT SECRETARY HARRY MARTI M.D.Performed By: #### HS TROP, CMP, CK, CBC #### [place] [address] USATroponin I.cardiac [Mass/volume] in Serum or Plasma by Detection limit <= 0.01 ng/Ordered By: Alejo Lynn on 63-34-7703Wpzivzks I.cardiac DL <= 0.01 ng/mL [Mass/Vol]8.1 pg/mL0.0-20.0[facility]ana HospitalUrea nitrogen [Mass/volume] in Serum or PlasmaOrdered By: Alejo Lynn on 56-33-1056Wlco nitrogen [Mass/Vol]16 mg/dL7-25[facility] Urinalysison 88-81-0894Rdnkqfbphh (U)ClearNormalClearMercy Health Urbana HospitalComment on above:Order Comment: Name Collection Type:: Clean-Voided MidstreamPerformed By: #### UA #### [facility] [address] [place] [address] USABilirubin,UrineNegativeNormalNegativeMercy Health Urbana HospitalComment on above:Order Comment: Name Collection Type:: Clean- Voided MidstreamPerformed By: #### UA #### [facility] [address] [place] [address] USAColor (U)YellowNormalYellowMercy Health Urbana HospitalComment on above:Order Comment: Name Collection Type:: Clean-Voided MidstreamPerformed By: #### UA #### [facility] [address] [place] [address] USAGlucose Ql (U)NormalNormalNormBluffton HospitalComment on above:Order Comment: Name Collection Type:: Clean-Voided MidstreamPerformed By: #### UA #### [facility] [address] [place] [address] USAKetones Ql (U)NegativeNormalNegativeMercy Health Urbana HospitalComment on above:Order Comment: Name Collection Type:: Clean- Voided MidstreamPerformed By: #### UA #### [facility] [address] [place] [address] USALeukocyte esterase Test strip Ql (U)NegativeNormalBanner Boswell Medical Centerative [facility]ana HospitalComment on above:Order Comment: Name Collection Type:: Clean-Voided MidstreamPerformed By: #### UA #### [facility] [address] [place] [address] USANitrite,UrineNegativeNormalNegativeMercy Health Urbana HospitalComment on above:Order Comment: Name Collection Type:: Clean- Voided MidstreamPerformed By: #### UA #### [facility] [address] [place] [address] USAOccult Blood,UrineNegativeNormalNegDelaware County HospitalComment on above:Order Comment: Name Collection Type:: Clean- Voided MidstreamResult Comment: PERFORMED BY: [place] [address] PATHOLOGIST MEDICAL UNIT SECRETARY HARRY MARTI M.D.Performed By: #### UA #### [place] [address] USApH (U)7.5 [pH]Normal5.0-9.0[facility]rbana HospitalComment on above:Order Comment: Name Collection Type:: Clean-Voided MidstreamPerformed By: #### UA #### [place] [address] USAProtein,UrineNegativeNormalNegativeMercy Health Urbana HospitalComment on above:Order Comment: Name Collection Type:: Clean- Voided MidstreamPerformed By: #### UA #### [place] [address] USASpecificy [place],Urine1.308Dmkfdd1.001-1.030Mer[facility] Urbana HospitalComment on above:Order Comment: Name Collection Type:: Clean-Voided MidstreamPerformed By: #### UA #### [place] [address] USAUrobilinogen,UrineNormalNormalNormalMercy Health Urbana HospitalComment on above:Order Comment: Name Collection Type:: Clean- Voided MidstreamPerformed By: #### UA #### [place] [address] USAUrine clarity by refractometry automatedOrdered By: Alejo Lynn on 15-31-1786Fyhvcsg Refractometry automated (U)ClearCleRegency Hospital CompanyUrine glucose measurement by automated test strip (mass/volume)Ordered By: Alejo Lynn on 13-27-8784Nkbedvc Auto test strip (U) [Mass/Vol]Normal mg/dLNoFairfield Medical CenterUrine hemoglobin detection by automated test stripOrdered By: Alejo Lynn on 53-91-6993Rqevxdxnsr Auto test strip Ql (U)NegativeNegDelaware County HospitalUrine leukocyte esterase detection by automated test stripOrdered By: Alejo Lynn on 83-68-8505Ppkylnesd esterase Auto test strip Ql (U)NegativeNegativeMercy Health Urbana HospitalUrobilinogen Auto test strip (U) [Mass/Vol]Ordered By: Alejo Lynn on 41-11-3439Gujbxpdeqaov (U) [Mass/Vol]Normal mg/dLNoFairfield Medical CenterWBC Auto (Bld) [#/Vol]Ordered By: Alejo Lynn on 14-48-4683HWA (Bld) [#/Vol]5.4 10*3/uL4.1-10.5[facility] XR chest 1V portableon 88-31-8874IB chest 1V portableUC HEALTH [place] [address] [place] [address] XRay Report Signed Patient: Yonatan Patel MR#: [id number] 6 : 1945 Acct:[id number] Age/Sex: 77 / M ADM Date: 03/01/23 Loc: Room: [address] [place] [address] Type: ADM INOo Attending Dr: Bobo Villagomez [...] Selena Reid M.D.03/01/2023 9:15 AM Dictation Location: [place] [address] Transcribed By: [facility] 03/01/23914 Dictated By: Selena Reid MD 03/01/2314 Signed By: 03/01/23 0915Wood County HospitalpH Auto test strip (U) Ordered By: Alejo Lynn on 39-00-6883lE (U)7.5 [pH]5.0-9.0[facility]rbana HospitalH Pylori Stool Ag, EIAon 10-12-2022H Pylori Stool Ag, EIANegative NormalNegativeMercy Health Urbana HospitalComment on above:Order Comment: SOURCE OF SPECIMEN: STOOLResult Comment: Performed at: [facility] [id number] Pile Driver Engineer: Juan Howard MD, Phone: [phone] PERFORMED BY: [place] [address] PATHOLOGIST MEDICAL UNIT SECRETARY HARRY MARTI M.D.Performed By: #### HS TROP, CMP, CK, CBC #### [place] [address] USACBC AUTO DIFFon 07-22-0505ACFO #0.0 103/ulNormal0.0-0.1[facility] Washington TownshipComment on above:Performed By: #### CBC #### [facility] [address] [place] [address] Dr. Patrica NathanBasophils/100 WBC (Bld)0.7 %Normal0.2-2.0[facility] Comment on above:Performed By: #### CBC #### [facility] [address] [place] [address] Dr. Patrica Hand #0.1 103/ulNormal0.0-0.7The [facility], Edwin ShawComment on above: Performed By: #### CBC #### [facility] [address] [place] [address] [address] Patrica Thakkarosinophils/100 WBC (Bld)1.5 %Normal0.9-7.0[facility] Comment on above:Performed By: #### CBC #### [facility] [address] [place] [address] Dr. Patrica Thakkarrythrocyte distribution width (RBC) [Ratio]14.2 %Opfqao68.0-15.0 [facility] TownshipComment on above:Performed By: #### CBC #### [facility] [address] [place] [address] Dr. Yilan ChangHematocrit (Bld) [Volume fraction]42.1 %Qvfslo28.0-54.0The [facility], [facility] ShawComment on above:Performed By: #### CBC #### [facility] [address] [place] [address] Dr. Patrica NathanHemoglobin (Bld) [Mass/Vol]14.6 g/oIDlrvvn72.0-18.0The [facility] ShawComment on above:Performed By: #### CBC #### [facility] [address] [place] [address] Dr. Patrica NathanIG #0.03 10e3/ulNormal0.00-0.03The [facility] ShawComment on above:Performed By: #### CBC #### [facility] [address] [place] [address] Dr. Patrica NathanIG %0.5 %Normal0.0-0.5The [facility], Edwin ShawComment on above: Performed By: #### CBC #### [facility] [address] [place] [address] Dr. Patrica Castle #1.3 103/ulNormal1.2-3.8The [facility] ShawComment on above:Performed By: #### CBC #### [facility] [address] [place] [address] Dr. Patrica Balderramamphocytes/100 WBC (Bld)22.4 %Mqwqsx67.5-60.0The [facility] ShawComment on above:Performed By: #### CBC #### [facility] [address] [place] [address] Dr. Patrica NathanMANUAL DIFF REQNONormalThe [facility] ShawComment on above: Performed By: #### CBC #### [facility] [address] [place] [address] Dr. Patrica Fox (RBC) [Entitic mass]29.4 wzHuawop88.9-34.0The [facility], [facility] ShawComment on above:Performed By: #### CBC #### [facility] [address] [place] [address] Dr. Patrica Lopez (RBC) [Mass/Vol]34.7 g/oTVdimvp09.9-35.2The [facility] ShawComment on above:Performed By: #### CBC #### [facility] [address] [place] [address] [address] Patrica LopezV (RBC) [Entitic vol]84.9 wMTmjhdb33.0-94.0The [facility] ShawComment on above:Performed By: #### CBC #### [facility] [address] [place] [address] [address] Patrica Hill #0.6 103/ulNormal0.3-0.8The [facility], Edwin ShawComment on above:Performed By: #### CBC #### [facility] [address] [place] [address] Dr. Patrica Wittocytes/100 WBC (Bld)9.9 %Normal1.7-12.0The [facility] Comment on above:Performed By: #### CBC #### [facility] [address] [place] [address] Dr. Patrica Taylor #3.9 103/ulNormal1.4-6.5The [facility], [facility] ShawComment on above:Performed By: #### CBC #### [facility] [address] [place] [address] Dr. Patrica Alexisutrophils/100 WBC (Bld)65.0 %Slyhxn93.0-75.0The [facility] ShawComment on above:Performed By: #### CBC #### [facility] [address] [place] [address] Dr. Patrica Kemplet mean volume (Bld) [Entitic vol]9.6 fLNormal9.5-13.5The [facility] ShawComment on above:Performed By: #### CBC #### [facility] [address] [place] [address] Dr. Patrica NathanPLT170 103/bfGgknxm988-180Enc [facility] ShawComment on above: Performed By: #### CBC #### [facility] [address], [place] [address] Dr. Patrica NathanRBC4.96 106/ulNormal4.70-6.10The [facility] ShawComment on above:Performed By: #### CBC #### [facility] [address], [place] [address] Dr. Patrica NathanWBC6.0 103/ulNormal4.0-11.0The [facility] ShawComment on above: Performed By: #### CBC #### [facility] [id number] [address] Patrica NathanCT HEAD WO CONon [id number] HEAD WO CONEXAMINATION: CT HEAD WO CON HISTORY: Near syncope. [...] Electronically authenticated by: ANGELY KENNEDY Date: 2022-09-14 10:00NormMercy Health [address]. Charles HospitalPROF 14(COMP METB)on [id number] [Mass/Vol]3.7 g/dLNormal 3.4-5.0The [facility] ShawComment on above:Performed By: #### CMP, HSTROPN #### [facility] [address] [address] [address] Patrica NathanAlbumin/Globulin [Mass ratio]1.4 {ratio}NormalThe [facility] ShawComment on above:Performed By: #### CMP, HSTROPN #### [facility] [address] [address] [address] Patrica Poe [Catalytic activity/Vol]83 U/REokold04-124Oaq [facility] ShawComment on above:Performed By: #### CMP, HSTROPN #### [facility] [address] [place] [address] Dr. Patrica Guerrero [Catalytic activity/Vol]57 U/UDqvwom00-70Mra [facility] ShawComment on above:Performed By: #### CMP, HSTROPN #### [facility] [address] [place] [address] Dr. Patrica Purcell gap [Moles/Vol]11.9 mmol/LNormalThe [facility] Comment on above:Performed By: #### CMP, HSTROPN #### [facility] [address] [place] [address] Dr. Patrica Bradshaw [Catalytic activity/Vol]43 U/LCritically avpr99-33Bul [facility] ShawComment on above:Performed By: #### CMP, HSTROPN #### [facility] [address] [place] [address] Dr. Patrica NathanBilirubin [Mass/Vol]1.1 mg/dLCritically high0.2-1.0The [facility] ShawComment on above:Performed By: #### CMP, HSTROPN #### [facility] [address] [place] [address] Dr. Patrica NathanCalcium [Mass/Vol]9.2 mg/dLNormal8.5-10.1[facility] Comment on above:Performed By: #### CMP, HSTROPN #### [facility] [address] [place] [address] Dr. Patrica NathanChloride [Moles/Vol]106 mmol/FGtaudj77-344Cxk [facility] Comment on above:Performed By: #### CMP, HSTROPN #### [facility] [address] [address] [address] Patrica NathanCO2 [Moles/Vol]28.0 mmol/ZHmtcej73.0-32.0The [facility] Comment on above:Performed By: #### CMP, HSTROPN #### [facility] [address] [place] [address] Dr. Patrica NathanCreatinine [Mass/Vol]0.92 mg/dLNormal0.70-1.30The [facility] ShawComment on above:Performed By: #### CMP, HSTROPN #### [facility] [address] [place] [address] Dr. Burciaga ChangEGFR-AF NORWEGIAN>60Normal>=60The [facility] ShawComment on above:Performed By: #### CMP, HSTROPN #### [facility] [address] [place] [address] Dr. Patrica ThakkarGFR-NON AF NORWEGIAN>60Normal>=60The [facility] ShawComment on above:Performed By: #### CMP, HSTROPN #### [facility] [address] [place] [address] Dr. Patrica NathanGlobulin (S) [Mass/Vol]2.7 g/dLNormalThe [facility] ShawComment on above:Performed By: #### CMP, HSTROPN #### [facility] [address] [place] [address] Dr. Patrica NathanGlucose [Mass/Vol]90 mg/oOKexhxl23-764Vgz [facility] Comment on above:Performed By: #### CMP, HSTROPN #### [facility] [address] [place] [address] Dr. Patrica NathanPotassium [Moles/Vol]3.9 mmol/LNormal3.5-5.1The [facility] Comment on above:Performed By: #### CMP, HSTROPN #### [facility] [address] [address] [address] Patrica NathanProtein [Mass/Vol]6.4 g/dLNormal6.4-8.2The [facility] Comment on above:Performed By: #### CMP, HSTROPN #### [facility] [address] [place] [address] Dr. Patrica NathanSodium [Moles/Vol]142 mmol/JNryokc511-099Mum [facility] Comment on above:Performed By: #### CMP, HSTROPN #### [facility] [address] [place] [address] Dr. Patrica NathanUrea nitrogen [Mass/Vol]19.0 mg/dLCritically high7.0-18.0The [facility] ShawComment on above:Performed By: #### CMP, HSTROPN #### [facility] [address] [place] [address] Dr. Patrica Spence nitrogen/Creatinine [Mass ratio]20.7 mg/mgNormalThe [facility] ShawComment on above:Performed By: #### CMP, HSTROPN #### [facility] [address] [place] [address] Dr. Patrica Armstrong, HIGH SENSITIVITYon 05-98-6093HBQCHZ9.8 pg/mLNormal 4.0-76.1[facility] TownshipComment on above:Result Comment: CUT-OFF POINTS HAVE BEEN ESTABLISHED BASED ON THE FOURTH UNIVERSAL DEFINITIONS OF MYOCARDIAL INFARCTION. THE UPPER REFERENCE LIMIT (URL) OF TROPONIN, DEFINED THE 99TH PERCENTILE OF cTnI DISTRIBUTION IN A REFERENCE POPULATION, HAS BEEN CONFIRMED THE DECISION THRESHOLD FOR GA DIAGNOSIS.Performed By: #### CMP, HSTROPN #### [facility] [address] [place] [address] Dr. Patrica NathanXR CHEST 1 Von [id number] CHEST 1 VEXAM: XR CHEST 1 V HISTORY: Near syncope COMPARISON: None. TECHNIQUE: Single view of the chest FINDINGS: Heart size normal. No focal consolidation, pleural effusion, pulmonary congestion or pneumothorax. IMPRESSION: No acute findings. Electronically authenticated by: PASTORA DREW Date: 2022-09-14 10:ChidiHocking Valley Community Hospitalcrystal [facility] 08[facility]27[facility]20[facility] Specimen: [id number] Received: 08/27/22 Status: MARIAH Weber Num: [id number] Spec Type: Surgical Subm Dr: Maryjane Christensen MD Tissues: A Gastric Biopsy (GASTRIC BX) B Colon Biopsy (ASCENDING POLYP) C Colon Biopsy (SIGMIOD POLYP) Procedures: HE/6, Gross/Micro L4/3, H PYLORI Age/ Patient Sex Location Account Attending Physician Yonatan Patel/Octavio [id number] Alek Oliva MD SPEC NUM: [id number] RECD: 08/27/22 STATUS: MARIAH WEBER NUM: [id number] EVE: 08/27/22- SUBM DR: Maryjane Christensen MD ENTERED: 08/27/[address] [facility] [address]: SPEC TYPE: Surgical DEPT: S ORDERED: HE/6, Gross/Micro L4/3, H PYLORI ORDERED: HE/6, Gross/Micro L4/3, H PYLORI Supplemental Report Addendum 1 Entered: 08/28/22 A. Immunohistochemical stain for Helicobacter Pylori is POSITIVE. Addendum Signed (signature on file) Aaliyah Beard MD 08/28/22 0676 Pathological Diagnosis A. Stomach, gastric, biopsy: - Moderate chronic active gastritis. - Positive for Helicobacter pylori like organisms on H E stain. COMMENT: Confirmatory Helicobacter pylori immunohistochemical stain is being performed, an addendum report will be issued on completion. B. Colon, ascending, polypectomy: - Tubular adenoma. Specimen: [id number] Received: 08/27/22 Status: MARIHA Weber Num: [id number] Spec Type: Surgical Subm Dr: Maryjane Christensen MD Tissues: A Gastric Biopsy (GASTRIC BX) B Colon Biopsy (ASCENDING POLYP) C Colon Biopsy (SIGMIOD POLYP) Procedures: HE/6, Gross/Micro L4/3, H PYLORI Patient: Yonatan Patel [id number] (Continued) Specimen: [id number] Received: 08/27/22 (Continued) Pathological Diagnosis (Continued) Signed (signature on file) Aaliyah Beard MD 08/28/22 1236 Specimen: [id number] Received: 08/27/22 Status: MARIAH Weber Num: [id number] Spec Type: Surgical Subm Dr: Maryjane Christensen MD Tissues: A Gastric Biopsy (GASTRIC BX) B Colon Biopsy (ASCENDING POLYP) C Colon Biopsy (SIGMIOD POLYP) Procedures: KIM/6, Gross/Micro L4/3, H PYLORI Patient: Yonatan Patel [id number] (Continued) Specimen: [id number] Received: 08/27/22 (Continued) Pathological [...] support the above pathologic diagnosis. CPT Codes 05488?3 Specimen: [id number] Received: 08/27/22 Status: MARIAH Weber Num: [id number] Spec Type: Surgical Subm Dr: Maryjane Christensen MD Tissues: A Gastric Biopsy (GASTRIC BX) B Colon Biopsy (ASCENDING POLYP) C Colon Biopsy (SIGMIOD POLYP) Procedures: HE/6, Gross/Micro L4/3, H PYLORI --------- (more content not included)...[facility] MRI BRAIN WO CONon [id number] BRAIN WO CONEXAMINATION: MRI BRAIN WO CON, 07/28/2022 8:18 AM EST HISTORY: [...] Electronically authenticated by: BERHANE HERNANDEZ Date: 2022-07-29 08:42[facility] Osteopathic ClinicLIPID PROFILEon [id number]-HDL RATIO NORMSEE [facility] CampusComment on above:Result Comment: 3.3 - 4.4 LOW RISK 4.4 - 7.1 AVERAGE RISK 7.1 - 11.0 MODERATE RISK >11.0 HIGH RISKPerformed By: #### CMP, HSTROPN #### [facility] [address] [place] [address] Dr. Patrica NahtanCholesterol [Mass/Vol]97 mg/dLNormal<=200The [facility] Comment on above:Performed By: #### CMP, HSTROPN #### [facility] [address] [place] [address] Dr. Patrica NathanCholesterol in HDL [Mass/Vol]40 mg/hZWhtcup24-69Lqx [facility] ShawComment on above:Performed By: #### CMP, HSTROPN #### [facility] [address] [place] [address] Dr. Patrica NathanCholesterol in LDL [Mass/Vol]31.8 mg/dLMarietta Osteopathic ClinicComment on above:Performed By: #### CMP, HSTROPN #### [facility] [address] [place] [address] Dr. Patrica Issaesterijeoma.total/Cholesterol in HDL [Mass ratio]2.4 {ratio} NormalThe [facility] ShawComment on above:Performed By: #### CMP, HSTROPN #### [facility] [address] [place] [address] Dr. Patrica NathanHDL NORMAL> or = 60 mg/dl - LOW CARDIOVASCULAR RISK <40 mg/dl - HIGH CARDIOVASCULAR RISKMarietta Osteopathic ClinicComment on above:Performed By: #### CMP, HSTROPN #### [facility] [address] [place] [address] Dr. Patrica NathanLDL CALC NORMALSEE BELOWMarietta Osteopathic ClinicComment on above:Result Comment: <100 mg/dl OPTIMAL 100 - 129 mg/dl NEAR OR ABOVE OPTIMAL 130 - 159 mg/dl BORDERLINE HIGH 160 - 189 mg/dl HIGH >190 mg/dl VERY HIGH Performed By: #### CMP, HSTROPN #### [facility] [address] [place] [address] Dr. Patrica NathanTriglyceride [Mass/Vol]126 mg/dLNormal<=150The [facility] Comment on above:Performed By: #### CMP, HSTROPN #### [facility] [address] [place] [address] Dr. Patrica RaineyLDL CALC25.2 mg/dLNormalThe [facility] ShawComment on above: Performed By: #### CMP, HSTROPN #### [facility] [address] [place] [address] Dr. Patrica Perez AUTO DIFFon [id number] #0.0 103/ulNormal0.0-0.1The [facility] ShawComment on above:Performed By: #### CBC #### [facility] [address] [place] [address] Dr. Patrica NathanBasophils/100 WBC (Bld)0.5 %Normal0.2-2.0[facility] Comment on above:Performed By: #### CBC #### [facility] [address] [place] [address] Dr. Patrica Hand #0.1 103/ulNormal0.0-0.7The [facility] ShawComment on above: Performed By: #### CBC #### [facility] [address] [place] [address] Dr. Patrica Thakkarosinophils/100 WBC (Bld)2.2 %Normal0.9-7.0[facility] Comment on above:Performed By: #### CBC #### [facility] [address] [place] [address] Dr. Patrica Thakkarrythrocyte distribution width (RBC) [Ratio]14.3 %Iwlmwi51.0-15.0 The [facility] ShawComment on above:Performed By: #### CBC #### [facility] [address] [place] [address] Dr. Patrica NathanHematocrit (Bld) [Volume fraction]45.8 %Bxouhe45.0-54.0The [facility] ShawComment on above:Performed By: #### CBC #### [facility] [address] [place] [address] Dr. Patrica NathanHemoglobin (Bld) [Mass/Vol]15.1 g/uQDmvgat36.0-18.0The [facility] on above:Performed By: #### CBC #### [facility] [address] [place] [address] Dr. Patrica Killian #0.01 10e3/ulNormal0.00-0.03The [facility] ShawComhillsdale hospital on above:Performed By: #### CBC #### [facility] [address] [place] [address] Dr. Patrica Killian %0.2 %Normal0.0-0.5The [facility] ShawComhillsdale hospital on above: Performed By: #### CBC #### [facility] [address] [place] [address] Dr. Patrica Castle #1.4 103/ulNormal1.2-3.8The [facility] ShawComhillsdale hospital on above:Performed By: #### CBC #### [facility] [address] [place] [address] Dr. Patrica Hendrickshocytes/100 WBC (Bld)24.0 %Tyujmh83.5-60.0The [facility] on above:Performed By: #### CBC #### [facility] [address] [place] [address] Dr. Patrica AmezcuaUAL DIFF REQNONormalThe [facility] ShawComment on above: Performed By: #### CBC #### [facility] [address] [place] [address] Dr. Patrica Lopez (RBC) [Entitic mass]29.4 raPoqxoc88.9-34.0The [facility] ShawComh[facility] hospital on above:Performed By: #### CBC #### [facility] [address] [place] [address] Dr. Patrica Lopez (RBC) [Mass/Vol]33.0 g/xRTjvdzw27.9-35.2The [facility] ShawComment on above:Performed By: #### CBC #### [facility] [address] [place] [address] Dr. Patrica LopezV (RBC) [Entitic vol]89.3 zIOnitbp31.0-94.0The [facility] Hospitalment on above:Performed By: #### CBC #### [facility] [address] [place] [address] Dr. Patrica Hill #0.6 103/ulNormal0.3-0.8The [facility] ShawComment on above:Performed By: #### CBC #### [facility] [address] [place] [address] Dr. Patrica Wittocytes/100 WBC (Bld)10.8 %Normal1.7-12.0The [facility] Comment on above:Performed By: #### CBC #### [facility] [address] [place] [address] Dr. Patrica Taylor #3.7 103/ulNormal1.4-6.5The [facility] ShawComment on above:Performed By: #### CBC #### [facility] [address] [place] [address] Dr. Patrica Alexisutrophils/100 WBC (Bld)62.3 %Yfjuin50.0-75.0The [facility] ShawComment on above:Performed By: #### CBC #### [facility] [address] [place] [address] Dr. Patrica Kemplet mean volume (Bld) [Entitic vol]9.7 fLNormal9.5-13.5The [facility] ShawComment on above:Performed By: #### CBC #### [facility] [address] [place] [address] Dr. Patrica NathanPLT192 103/ulCkfggh945-236Cjd [facility] ShawComment on above: Performed By: #### CBC #### [facility] [address] [place] [address] Dr. Patrica NathanRBC5.13 106/ulNormal4.70-6.10The [facility] ShawComment on above:Performed By: #### CBC #### [facility] [address] [address] [address] Patrica NathanWBC6.0 103/ulNormal4.0-11.0The [facility] ShawComment on above: Performed By: #### CBC #### [facility] [address] [place] [address] Dr. Patrica NathanCT CHEST WO CONon [id number] CHEST WO CONEXAMINATION: CT CHEST WO CON HISTORY: CHEST PAIN, UNSPECIFIED COMPARISON: [...] Electronically authenticated by: EVGENY MCCLAIN Date: 2022-07-01 07:16[facility]opathic ClinicPROF 14(COMP METB)on 30-91-2434Ybvglvy [Mass/Vol]4.0 g/dLNormal 3.4-5.0The [facility] ShawComment on above:Performed By: #### CMP HSTROPN #### [facility] [address] [place] [address] Dr. Patrica NathanAlbumin/Globulin [Mass ratio]1.2 {ratio}NormalThe [facility] ShawComhillsdale hospital on above:Performed By: #### CMP, HSTROPN #### [facility] [address] [place] [address] Dr. Patrica CollinsP [Catalytic activity/Vol]80 U/YXmkmwd74-560Ogj [facility] ShawComment on above:Performed By: #### CMP, HSTROPN #### [facility] [address] [place] [address] Dr. Patrica CollinsT [Catalytic activity/Vol]30 U/QFydazl66-35Irr [facility] ShawComment on above:Performed By: #### CMP, HSTROPN #### [facility] [address] [place] [address] Dr. Patrica Bacaon gap [Moles/Vol]8.5 mmol/LNormalThe [facility] ShawComment on above:Performed By: #### CMP, HSTROPN #### [facility] [address] [place] [address] Dr. Patrica NathanAST [Catalytic activity/Vol]26 U/VFuxmrm79-27Imd [facility] ShawComment on above:Performed By: #### CMP, HSTROPN #### [facility] [address] [place] [address] Dr. Patrica NathanBilirubin [Mass/Vol]1.4 mg/dLCritically high0.2-1.0The [facility] ShawComment on above:Performed By: #### CMP, HSTROPN #### [facility] [address] [place] [address] Dr. Patrica NathanCalcium [Mass/Vol]9.8 mg/dLNormal8.5-10.1The [facility] Comment on above:Performed By: #### CMP, HSTROPN #### [facility] [address] [place] [address] Dr. Patrica NathanChloride [Moles/Vol]104 mmol/VHjjrfn28-554Wzg [facility] Comment on above:Performed By: #### CMP, HSTROPN #### [facility] [address] [place] [address] Dr. Patrica NathanCO2 [Moles/Vol]30.8 mmol/PCszpbg49.0-32.0The [facility] Comment on above:Performed By: #### CMP, HSTROPN #### [facility] [address] [address] [address] Patrica NathanCreatinine [Mass/Vol]0.97 mg/dLNormal0.70-1.30The [facility] ShawComment on above:Performed By: #### CMP, HSTROPN #### [facility] [address] [address] [address] Patrica ThakkarGFR-AF NORWEGIAN>60Normal>=60The [facility] ShawComment on above:Performed By: #### CMP, HSTROPN #### [facility] [address] [address] [address] Patrica ThakkarGFR-NON AF NORWEGIAN>60Normal>=60The [facility] ShawComment on above:Performed By: #### CMP, HSTROPN #### [facility] [address] [place] [address] Dr. Patrica NathanGlobulin (S) [Mass/Vol]3.4 g/dLNormalThe [facility] ShawComment on above:Performed By: #### CMP, HSTROPN #### [facility] [address] [place] [address] Dr. Patrica NathanGlucose [Mass/Vol]110 mg/dLCritically hiox49-701Bqs [facility] Hospitalment on above:Performed By: #### CMP, HSTROPN #### [facility] [address] [address] [address] Patrica NathanPotassium [Moles/Vol]4.3 mmol/LNormal3.5-5.1The [facility] Comment on above:Performed By: #### CMP, HSTROPN #### [facility] [address] [address] [address] Patrica NathanProtein [Mass/Vol]7.4 g/dLNormal6.4-8.2The [facility] Comment on above:Performed By: #### CMP, HSTROPN #### [facility] [address] [place] [address] Dr. Yilan ChangSodium [Moles/Vol]139 mmol/KCxuxuz992-161BrdKettering Health Washington Township Comment on above:Performed By: #### CMP, HSTROPN #### [facility] [address] [place] [address] Dr. Patrica Spence nitrogen [Mass/Vol]15.0 mg/dLNormal7.0-18.0[facility] TownshipComment on above:Performed By: #### CMP, HSTROPN #### [facility] [address] [place] [address] Dr. Patrica Spence nitrogen/Creatinine [Mass ratio]15.5 mg/mgNoCleveland Clinic Medina HospitalComment on above:Performed By: #### CMP, HSTROPN #### [facility] [address] [place] [address] Dr. Patrica Artis [id number] Coag (PPP) [Relative time]0.95 {INR} NormalKettering Health Washington TownshipComment on above:Performed By: #### PT, PTT #### [facility] [address] [place] [address] Dr. Patrica Nur [facility]ITALSEE BELOWMarietta Osteopathic ClinicComment on above:Result Comment: DESIRED INR: 2.0 - 3.0 CONDITIONS NOT LISTED BELOW 2.5 - 3.5 FOR PROSTHETIC HEART VALVE REPLACEMENT 2.5 - 3.5 RECURRENT THROMBOSIS Performed By: #### PT, PTT #### [facility] [address] [place] [address] Dr. Patrica Lincoln Coag (PPP) [Time]10.3 sNormal9.0-11.6The [facility] Comment on above:Performed By: #### PT, PTT #### [facility] [address] [place] [address] Dr. Patrica Sims [id number] Coag (Bld) [Time]27.1 mWarmcs17.3-36.2[facility] TownshipComment on above:Performed By: #### CMP, HSTROPN #### [facility] [address] [place] [address] Dr. Patrica Lira CHEST 1 Von [id number] CHEST 1 VEXAM: XR CHEST 1 V HISTORY: CHEST PAIN, [...] Electronically authenticated by: ANGELY REYNOLDS Date: 2022-07-01 06:33[facility] ClinicCT CHEST WO CONon [id number] CHEST WO CONEXAMINATION: CT CHEST WO CON HISTORY: CHEST PAIN, UNSPECIFIED ; [...] Electronically authenticated by: BERHANE HERNANDEZ Date: 2022-06-29 16:01[facility]opathic ClinicXR RIBS RT PA Estella [id number] RIBS RT PA CHEXAM: XR RIBS RT PA CH 06/29/2022. COMPARISON [...] Electronically authenticated by: FABRICE WEST Date: 2022-06-29 15:08[facility]opathic ClinicCB AUTO DIFFon [id number] #0.1 103/ulNormal0.0-0.1[facility] Washington TownshipComment on above:Performed By: #### CBC #### [facility] [address] [address] [address] Burciaga ChangBasophils/100 WBC (Bld)0.8 %Normal0.2-2.0[facility] Comment on above:Performed By: #### CBC #### [facility] [address] [address] [address] Patrica Hand #0.1 103/ulNormal0.0-0.7ThWilson HealthComment on above: Performed By: #### CBC #### [facility] [address] [address] [address] Patrica Thakkarosinophils/100 WBC (Bld)1.7 %Normal0.9-7.0[facility] Comment on above:Performed By: #### CBC #### [facility] [address] [place] [address] Dr. Patrica Thakkarrythrocyte distribution width (RBC) [Ratio]14.5 %Gqngph85.0-15.0 The [facility] ShawComment on above:Performed By: #### CBC #### [facility] [address] [place] [address] Dr. Patrica NathanHematocrit (Bld) [Volume fraction]45.6 %Wnxpiv20.0-54.0The [facility] ShawComment on above:Performed By: #### CBC #### [facility] [address] [place] [address] Dr. Patrica NathanHemoglobin (Bld) [Mass/Vol]15.3 g/xYLdqcsp94.0-18.0The [facility] on above:Performed By: #### CBC #### [facility] [address] [place] [address] Dr. Patrica Killian #0.02 10e3/ulNormal0.00-0.03The [facility] ShawComhillsdale hospital on above:Performed By: #### CBC #### [facility] [address] [place] [address] Dr. Patrica Killian %0.3 %Normal0.0-0.5The [facility] ShawComhillsdale hospital on above: Performed By: #### CBC #### [facility] [address] [place] [address] Dr. Patrica HendricksH #1.6 103/ulNormal1.2-3.8The [facility] ShawComment on above:Performed By: #### CBC #### [facility] [address] [place] [address] Dr. Patrica Balderramamphocytes/100 WBC (Bld)27.0 %Wgrmhm54.5-60.0The [facility] ShawComhillsdale hospital on above:Performed By: #### CBC #### [facility] [address] [place] [address] Dr. Patrica AmezcuaUAL DIFF REQNONormalThe [facility] ShawComment on above: Performed By: #### CBC #### [facility] [address] [address] [address] Patrica Lopez (RBC) [Entitic mass]29.9 zyRarlte12.9-34.0The [facility] ShawComment on above:Performed By: #### CBC #### [facility] [address] [place] [address] Dr. Patrica Lopez (RBC) [Mass/Vol]33.6 g/zQXgecbj58.9-35.2The [facility] ShawComment on above:Performed By: #### CBC #### [facility] [address] [place] [address] Dr. Patrica LopezV (RBC) [Entitic vol]89.1 uROntzla91.0-94.0The [facility] ShawComment on above:Performed By: #### CBC #### [facility] [address] [place] [address] Dr. Patrica Hill #0.6 103/ulNormal0.3-0.8The [facility] ShawComment on above:Performed By: #### CBC #### [facility] [address] [place] [address] Dr. Patrica Wittocytes/100 WBC (Bld)9.8 %Normal1.7-12.0The [facility] Comment on above:Performed By: #### CBC #### [facility] [address] [place] [address] Dr. Patrica Taylor #3.6 103/ulNormal1.4-6.5The [facility] ShawComment on above:Performed By: #### CBC #### [facility] [address] [place] [address] Dr. Patrica Alexisutrophils/100 WBC (Bld)60.4 %Wuhbal11.0-75.0The [facility] ShawComment on above:Performed By: #### CBC #### [facility] [address] [place] [address] Dr. Patrica Kemplet mean volume (Bld) [Entitic vol]9.3 fLCritically low 9.5-13.5The [facility] ShawComment on above:Performed By: #### CBC #### [facility] [address], [place] [address] Dr. Patrica NathanPLT183 103/fvOfkqkq236-441Xcp [facility] ShawComhillsdale hospital on above: Performed By: #### CBC #### [facility] [address], [place] [address] Dr. Patrica NathanRBC5.12 106/ulNormal4.70-6.10The [facility] ShawComhillsdale hospital on above:Performed By: #### CBC #### [facility] [address], [place] [address] Dr. Patrica NathanWBC6.0 103/ulNormal4.0-11.0The [facility] on above: Performed By: #### CBC #### [facility] [address] [address] [address] Patrica NathanCT ABD/PELV WO W CONon [id number] ABD/PELV WO W CONEXAMINATION: CT ABD/PELV WO W CON, 05/02/2022 7:15 AM EDT [...] Electronically authenticated by: EVGENY MCCLAIN Date: 2022-05-02 10:56[facility] ClinicPROF 14(COMP METB)on 19-03-5444Gbizcem [Mass/Vol]4.1 g/dLNormal 3.4-5.0The [facility] ShawComment on above:Performed By: #### CMP, HSTROPN #### [facility] [address] [place] [address] Dr. Patrica NathanAlbumin/Globulin [Mass ratio]1.4 {ratio}NormalThe [facility] ShawComhillsdale hospital on above:Performed By: #### CMP, HSTROPN #### [facility] [address] [place] [address] Dr. Patrica Poe [Catalytic activity/Vol]71 U/FQjfsrf80-160Urm [facility] on above:Performed By: #### CMP, HSTROPN #### [facility] [address] [address] [address] Patrica Guerrero [Catalytic activity/Vol]48 U/QAarngq38-28Mqs [facility] ShawComment on above:Performed By: #### CMP, HSTROPN #### [facility] [address] [place] [address] Dr. Patrica Purcell gap [Moles/Vol]8.1 mmol/LNormalThe [facility] Hospitalment on above:Performed By: #### CMP, HSTROPN #### [facility] [address] [place] [address] Dr. Patrica Bradshaw [Catalytic activity/Vol]31 U/CYftbhn56-23Tmw [facility] on above:Performed By: #### CMP, HSTROPN #### [facility] [address] [place] [address] Dr. Patrica NathanBilirubin [Mass/Vol]1.6 mg/dLCritically high0.2-1.0The [facility] ShawComment on above:Performed By: #### CMP, HSTROPN #### [facility] [address] [place] [address] Dr. Patrica NathanCalcium [Mass/Vol]9.4 mg/dLNormal8.5-10.1The [facility] Comment on above:Performed By: #### CMP, HSTROPN #### [facility] [address] [place] [address] Dr. Patrica NathanChloride [Moles/Vol]105 mmol/RFyvaxp95-655Krt [facility] Comment on above:Performed By: #### CMP, HSTROPN #### [facility] [address] [place] [address] Dr. Patrica NathanCO2 [Moles/Vol]29.0 mmol/QMtdfep41.0-32.0The [facility] Comment on above:Performed By: #### CMP, HSTROPN #### [facility] [address] [place] [address] Dr. Patrica NathanCreatinine [Mass/Vol]1.01 mg/dLNormal0.70-1.30The [facility] ShawComment on above:Performed By: #### CMP, HSTROPN #### [facility] [address] [place] [address] Dr. Patrica ThakkarGFR-AF NORWEGIAN>60Normal>=60The [facility] ShawComment on above:Performed By: #### CMP, HSTROPN #### [facility] [address] [place] [address] Dr. Patrica ThakkarGFR-NON AF NORWEGIAN>60Normal>=60The [facility] ShawComment on above:Performed By: #### CMP, HSTROPN #### [facility] [address] [place] [address] Dr. Patrica NathanGlobulin (S) [Mass/Vol]2.9 g/dLNormalThe [facility] ShawComment on above:Performed By: #### CMP, HSTROPN #### [facility] [address] [address] [address] Patrica NathanGlucose [Mass/Vol]106 mg/bLDmdgbk25-183Olj [facility] Comment on above:Performed By: #### CMP, HSTROPN #### [facility] [address] [address] [address] Patrica NathanPotassium [Moles/Vol]4.1 mmol/LNormal3.5-5.1The [facility] Comment on above:Performed By: #### CMP, HSTROPN #### [facility] [address] [address] [address] Patrica NathanProtein [Mass/Vol]7.0 g/dLNormal6.4-8.2The [facility] Comment on above:Performed By: #### CMP, HSTROPN #### [facility] [address] [address] [address] Patrica NathanSodium [Moles/Vol]138 mmol/IVxutpl635-657Vqo [facility] Comment on above:Performed By: #### CMP, HSTROPN #### [facility] [address] [address] [address] Patrica NathanUrea nitrogen [Mass/Vol]18.0 mg/dLNormal7.0-18.0The [facility] ShawComment on above:Performed By: #### CMP, HSTROPN #### [facility] [address] [address] [address] Patrica NathanUrea nitrogen/Creatinine [Mass ratio]17.8 mg/mgNormalThe [facility] ShawComment on above:Performed By: #### CMP, HSTROPN #### [facility] [address] [address] [address] Patrica Galan 37-49-3214IKV4.409 uIU/mLNormal0.358-3.740The [facility] ShawComment on above:Performed By: #### TSH #### [facility] [address] [address] [address] Patrica NathanXR CHEST 2 Von [id number] CHEST 2 VEXAMINATION: XR CHEST 2 V HISTORY: Nicotine dependence in remission [...] Electronically authenticated by: EVGENY MCCLAIN Date: 2022-05-02 07:44NoCleveland Clinic Medina HospitalCovid-19 PCR (CVDTBH)on [id number]-CoV-2 (COVID-19) RNA MARIANNE+probe Ql (Unsp spec)Not detectedNormalNOT DETECTEDThe [facility] Comment on above:Result Comment: This test is not yet approved or cleared by the [place] FDA. When there are no FDA-approved or cleared tests available, and other criteria are met, FDA can make tests available under an emergency access mechanism called an Emergency Use Authorization (EUA). The EUA for this test is supported by the [place] of Health and Human Service's (HHS's) declaration that circumstances exist to justify the emergency use of in vitro diagnostics for the detection and/or diagnosis of the virus that causes COVID- 19. This EUA will remain in effect (meaning [...] of clinical signs and symptoms consistent with SARS-CoV-2.Performed By: #### CVDTBH #### [facility] [address] [place] [address] Dr. Patrica Nathan Vital Signs Date TimeVital SignValuePerforming IpwsdhalhRmwjgrmh41-92-0112 08:34-0400Body yfmdms092.96 cmBenjamin Ball DO Work Phone: [facility]09-19-2025 08:34-0400 Body mass index (BMI) [Ratio]22.6 kg/f6Xitjppav Ball DO Work Phone: [phone])[address] [place], [place] 7035809-19-2025 08:34-0400 Body xqousx50.94 kgBenjamin Ball DO Work Phone: [phone])[address] [place], [place] 7035809-19-2025 08:34-0400 Diastolic blood iuqvutwz81 mm[Hg]Cisco Ball DO Work Phone: 1419)[address] [place], [place] 7035809-19-2025 08:34-0400 Heart rate62 /minBenjamin Ball DO Work Phone: 1419)[address] [place], [place] 7035809-19-2025 08:34-0400 Respiratory rate12 /minBenjamin Ball DO Work Phone: 1419)[address] [place], [place] 7035809-19-2025 08:34-0400 Systolic blood fmlxcifc458 mm[Hg]Cisco Ball DO Work Phone: 1419)[address] [place], [place] 7035807-01-2025 10:05-0400 Body .96 cmBenjamin Ball DO Work Phone: [phone])[address] [place], [place] 7035807-01-2025 10:05-0400 Body mass index (BMI) [Ratio]23 kg/h1Cnzgtmej Ball DO Work Phone: 1419)[address] [place], [place] 70[address]807-01-2025 10:05-0400 Body vjrexl50.41 kgBenjamin Ball DO Work Phone: [phone])[address] [place], [place] 7035807-01-2025 10:05-0400 Diastolic blood sumhgckb77 mm[Hg]Cisco Ball DO Work Phone: 1419)[address] [place], [place] [address]807-01-2025 10:05-0400 Heart rate57 /minBenjamin Ball DO Work Phone: 1419)[address] [place], [place] [address]807-01-2025 10:05-0400 Respiratory rate12 /minBenjamin Ball DO Work Phone: 1419)[facility] [place], [place] [address]7-01-2025 10:05-0400 Systolic blood ktxipxxy598 mm[Hg]Cisco Mcadams DO Work Phone: [facility]06-12-2025 08:40-0400 Body hveasd311.96 cmMercy Health [facility] Hospital06-12-2025 08:40-0400Body mass index (BMI) [Ratio]22.8 kg/t5XvfrbtrmrMercy Health Urbana Hospital06-12-2025 08:40-0400Body vnbcyx85.9 kgMercy Health [facility]ana Hospital06-12-2025 08:40-0400Diastolic blood doruohcy86 mm[Hg][facility] 01-26-2025 08:40-0400Heart rate62 /[facility] 01-26-2025 08:40-0400Respiratory rate12 /[facility] 01-26-2025 08:40-0400Systolic blood bdmxsmuj478 mm[Hg][facility]05-20-2025 14:37-0400Body fvanqb148.96 cmMercy Health [facility] Hospital05-20-2025 14:37-0400Body mass index (BMI) [Ratio]23 kg/o1PnobqtfkeMercy Health Urbana Hospital05-20-2025 14:37-0400Body kofrhi87.41 [facility]05-20-2025 14:37-0400Diastolic blood srppahto64 mm[Hg] [facility]05-20-2025 14:37-0400Heart rate78 /[facility]05-20-2025 14:37-0400Respiratory rate12 /[facility]05-20-2025 14:37-0400Systolic blood ivcdxgjm737 mm[Hg] [facility]05-14-2025 08:34-0400Body bnqbob464.96 cm [facility]05-14-2025 08:34-0400Body mass index (BMI) [Ratio]23 kg/b3IsbwqosyyMercy Health Urbana Hospital05-14-2025 08:34-0400Body weight 81.36 kgMercy Health Urbana Hospital05-14-2025 08:34-0400Diastolic blood dycdetgb43 mm[Hg][facility]05-14-2025 08:34-0400Heart rate64 /[facility]05-14-2025 08:34-0400Respiratory rate12 /[facility]05-14-2025 08:34-0400Systolic blood mm[Hg][facility]04-28-2025 14:49-0400Body ocfcnb823.96 cmMercy Health [facility] Hospital04-28-2025 14:49-0400Body mass index (BMI) [Ratio]23 kg/f9AnitvratlMercy Health Urbana Hospital04-28-2025 14:49-0400Body asffgi52.24 kgMercy Health Urbana Hospital04-28-2025 14:49-0400Diastolic blood yfyfudbh95 mm[Hg][facility] 12-12-2024 14:49-0400Heart rate79 /[facility] 12-12-2024 14:49-0400Respiratory rate12 /[facility] 12-12-2024 14:49-0400Systolic blood xdxynpjr043 mm[Hg][facility]04-01-2025 14:58-0400Body eypgpx676.96 cmMercy Health [facility] Hospital04-01-2025 14:58-0400Body mass index (BMI) [Ratio]23.5 kg/r1XipbarzqbMercy Health Urbana Hospital04-01-2025 14:58-0400Body sovesd13 [facility]04-01-2025 14:58-0400Diastolic blood deyendnf22 mm[Hg][facility]04-01-2025 14:58-0400Heart rate69 /[facility]04-01-2025 14:58-0400Respiratory rate12 /[facility]04-01-2025 14:58-0400Systolic blood dfiybcka365 mm[Hg][facility]03-14-2025 12:20-0400Body gdsysv153.96 cmMercy Health U[facility] Hospital03-14-2025 12:20-0400Body mass index (BMI) [Ratio]23.1 kg/i6IrayokvehMercy Health Urbana Hospital03-14-2025 12:20-0400Body gfnxor49.87 kg [facility]03-14-2025 12:20-0400Diastolic blood vtxwvvaa18 mm[Hg][facility]03-14-2025 12:20-0400Heart rate59 /min [facility]03-14-2025 12:20-0400Respiratory rate12 /min [facility]03-14-2025 12:20-0400Systolic blood jbcrmzzo326 mm[Hg][facility]02-05-2025 09:47-0500Body xrbajs822.96 cmMercy Health [facility] Hospital02-05-2025 09:47-0500Body mass index (BMI) [Ratio]23.3 kg/y0MqcdcjrknMercy Health Urbana Hospital02-05-2025 09:47-0500Body xqvmli65.55 [facility]02-05-2025 09:47-0500Diastolic blood ijjbrwni82 mm[Hg][facility]02-05-2025 09:47-0500 Heart rate61 /[facility]02-05-2025 09:47-0500 Respiratory rate12 /[facility]02-05-2025 09:47-0500 Systolic blood lgcjhcud139 mm[Hg][facility]01-29-2025 08:28-0500Body .96 cmMercy Health [facility] Hospital01-29-2025 08:28-0500Body mass index (BMI) [Ratio]23.2 kg/y7CpznuxuknMercy Health Urbana Hospital01-29-2025 08:28-0500Body zatbnx53.15 kgMercy Health [facility] Hospital 09-14-2024 08:28-0500Diastolic blood mm[Hg][facility]01-29-2025 08:28-0500Heart rate55 /[facility] 09-14-2024 08:28-0500Respiratory rate12 /[facility] 09-14-2024 08:28-0500Systolic blood uqzwxvfg314 mm[Hg][facility]01-22-2025 09:24-0500Body nejfqd852.96 cmMercy Health [facility] Hospital01-22-2025 09:24-0500Body mass index (BMI) [Ratio]23.1 kg/v1XgmzldxywMercy Health Urbana Hospital01-22-2025 09:24-0500Body .87 [facility]01-22-2025 09:24-0500Diastolic blood avntgwjw06 mm[Hg] [facility]01-22-2025 09:24-0500Heart rate64 /[facility]01-22-2025 09:24-0500Respiratory rate12 /[facility]01-22-2025 09:24-0500Systolic blood ezcwvthg556 mm[Hg] [facility]01-16-2025 08:53-0500Body doxeri379.96 cm [facility]01-16-2025 08:53-0500Body mass index (BMI) [Ratio]23.1 kg/a5JutotkddrMercy Health [facility]rbana Hospital01-16-2025 08:53-0500Body nvhvbu00.87 [facility]01-16-2025 08:53-0500Diastolic blood rjjhowje14 mm[Hg][facility]01-16-2025 08:53-0500 Heart rate69 /[facility]01-16-2025 08:53-0500 Respiratory rate12 /[facility]01-16-2025 08:53-0500 Systolic blood jxaoqybv563 mm[Hg][facility]11-25-2024 11:39-0500Body bhfpsu975.96 cmMer[facility]11-25-2024 11:39-0500Body mass index (BMI) [Ratio]23.3 kg/k8UqirfmqrnMercy Health Urbana Hospital11-25-2024 11:39-0500Body .27 [facility] 07-11-2024 11:39-0500Diastolic blood ykhuqgwz95 mm[Hg][facility]11-25-2024 11:39-0500Heart rate68 /[facility] 07-11-2024 11:39-0500Respiratory rate12 /[facility] 07-11-2024 11:39-0500Systolic blood gozsvowf614 mm[Hg][facility]09-18-2024 09:12-0400Body dwsbwo085.96 cmMer[facility]09-18-2024 09:12-0400Body mass index (BMI) [Ratio]23.1 kg/u8ZniiepnegMercy Health Urbana Hospital09-18-2024 09:12-0400Body npaabm08.76 kgMer[facility]09-18-2024 09:12-0400Diastolic blood kskvggif76 mm[Hg] [facility]09-18-2024 09:12-0400Heart rate56 /[facility]09-18-2024 09:12-0400Respiratory rate12 /[facility]09-18-2024 09:12-0400Systolic blood mm[Hg] [facility]08-03-2024 09:03-0400Body zjocsq469.96 cm [facility]08-03-2024 09:03-0400Body mass index (BMI) [Ratio]23.1 kg/y6SczkqcdvhMercy Health Urbana Hospital08-03-2024 09:03-0400Body aadqcxezwwz80.8 [degF][facility]08-03-2024 09:03-0400Body wqdyjo57.76 [facility]08-03-2024 09:03-0400Diastolic blood ilyfhnxh73 mm[Hg][facility]08-03-2024 09:03-0400 Heart rate73 /[facility]08-03-2024 09:03-2272CrD2% (BldA) [Mass fraction]97 %[facility]08-03-2024 09:03-0400 Systolic blood ruipiqyv411 mm[Hg][facility]07-29-2024 10:10-0400Body .96 cmMer[facility]07-29-2024 10:10-0400Body mass index (BMI) [Ratio]23.4 kg/b2FryttcgwpMercy Health Urbana Hospital07-29-2024 10:10-0400Body spqzyo56.78 kgMer[facility] 03-14-2024 10:10-0400Diastolic blood qaqkncmt57 mm[Hg][facility]07-29-2024 10:10-0400Heart rate58 /[facility] 03-14-2024 10:10-0400Respiratory rate12 /[facility] 03-14-2024 10:10-0400Systolic blood kdtzghyo294 mm[Hg][facility]06-13-2024 09:07-0400Body evwzsv265.96 cmMer[facility]06-13-2024 09:07-0400Body mass index (BMI) [Ratio]23.4 kg/b0HokoyfpflMercy Health Urbana Hospital06-13-2024 09:07-0400Body oguggr64.72 kgMer[facility]06-13-2024 09:07-0400Diastolic blood gsloqpjj22 mm[Hg] [facility]06-13-2024 09:07-0400Heart rate58 /[facility]06-13-2024 09:07-0400Respiratory rate12 /[facility]06-13-2024 09:07-0400Systolic blood keurwnig230 mm[Hg] [facility]04-12-2024 08:33-0400Body yjrbzx737.96 cm [facility]04-12-2024 08:33-0400Body mass index (BMI) [Ratio]23.1 kg/b6SmznessoqMercy Health Urbana Hospital04-12-2024 08:33-0400Body zoiqwj52.7 kgMer[facility]04-12-2024 08:33-0400Diastolic blood lrybdbbq31 mm[Hg][facility]04-12-2024 08:33-0400 Heart rate63 /[facility]04-12-2024 08:33-0400 Respiratory rate12 /[facility]04-12-2024 08:33-0400 Systolic blood mspsevqg425 mm[Hg][facility]2024 15:24-0400Body hgixby889.96 cmMer[facility]2024 15:24-0400Body mass index (BMI) [Ratio]23.1 kg/r6AovrkvxtdMercy Health Urbana Hospital2024 15:24-0400Body indhjd71.64 kgMer[facility] 11-06-2023 15:24-0400Diastolic blood fdavfgkm64 mm[Hg][facility]2024 15:24-0400Heart rate65 /[facility] 11-06-2023 15:24-0400Respiratory rate12 /[facility] 11-06-2023 15:24-0400Systolic blood onngwbwp519 mm[Hg][facility]03-13-2024 11:01-0400Body yegayi261.96 cmMer[facility]03-13-2024 11:01-0400Body mass index (BMI) [Ratio]23.2 kg/w7LxjddcgfoMercy Health Urbana Hospital03-13-2024 11:01-0400Body yulogw42.21 kgMer[facility]03-13-2024 11:01-0400Diastolic blood zujgpang88 mm[Hg] [facility]03-13-2024 11:01-0400Heart rate59 /[facility]03-13-2024 11:01-0400Respiratory rate12 /[facility]03-13-2024 11:01-0400Systolic blood kvogjrda120 mm[Hg] [facility]01-30-2024 16:00-0500Body qawwdu247.96 cm Cisco Ball Other [facility]01-30-2024 16:00-0500 Body mass index (BMI) [Ratio]23.75 kg/a9Btmxnimd Ball Other [employer] Other 01-30-2024 16:00-0500Body dhoxab73.92 kgBenjamin Ball Other [employer] Other 01-30-2024 16:00-0500Body xwfwca84.91 kgMer[facility]01-30-2024 16:00-0500Diastolic blood nmhoknst83 mm[Hg] Cisco Ball Other [facility]01-30-2024 16:00-0500 Respiratory rate12 /minBenjamin Ball Other [employer] Other 01-30-2024 16:00-0500Systolic blood svdkqwoe709 mm[Hg] Cisco Ball Other [facility]01-12-2024 10:00-0500 Body jewnns564.96 cmBenjamin Ball Other [facility]01-12-2024 10:00-0500 Body mass index (BMI) [Ratio]23.42 kg/m9Zfwtmqgs Ball Other [employer] Other 01-12-2024 10:00-0500Body xnrwxe84.74 kgBenjamin Ball Other [employer] Other 01-12-2024 10:00-0500Body ujsecl47.73 kgMer[facility]01-12-2024 10:00-0500Diastolic blood jxbvnzof16 mm[Hg] Cisco Ball Other [facility]01-12-2024 10:00-0500 Respiratory rate12 /minBenjamin Ball Other [employer] Other 01-12-2024 10:00-0500Systolic blood btebmuup074 mm[Hg] Cisco Ball Other [facility]12-12-2023 13:13-0500 Blood Pressure LocationMichael NILL [facility] Tuhdvcnq45-38-6211 13:13-0500Diastolic blood czolqzek80 mm[Hg]Angely NILL [facility] Surgery Ymyuvzai49-53-2582 13:13-0500Heart rate 72 /minMichael NILL [facility] Dcbwasas98-13-3229 13:13-0500 Respiratory rate16 /minMichael NILL [facility] Surgery Vvyzsmcq10-22-9554 13:13-0500Systolic blood uwnquljj196 mm[Hg]Angely NILL [facility] Surgery Zpdlyqyc53-76-9227 10:15-0500Body xlpbqe956.96 cmBenjamin Ball Other [employer] Other 11-15-2023 10:15-0500Body mass index (BMI) [Ratio] 23.13 kg/o1Qdggosqn Ball Other [facility] Other 11-15-2023 10:15-0500Body nxneqb48.74 kgBenjamin Ball Other [facility] Other 11-15-2023 10:15-0500Diastolic blood rwyvdpaa67 mm[Hg] Cisco Ball Other [facility] Other 11-15-2023 10:15-0500Respiratory rate12 /minBenjamin Ball Other [employer] Other 11-15-2023 10:15-0500Systolic blood zxiifzfs128 mm[Hg] Cisco Ball Other [employer] Other 11-04-2023 02:33-0400Diastolic blood gijrhpuk97 mm[Hg] DO Cisco Ball Work Phone: [facility]11-04-2023 02:33-0400 Heart rate78 /minDO Cisco Ball Work Phone: [facility]11-04-2023 02:33-0400 Respiratory rate16 /minDO [employer] Work Phone: [facility]11-04-2023 02:33-0400 SaO2% (BldA) [Mass fraction]96 %DO Cisco Ball Work Phone: [facility]11-04-2023 02:33-0400 Systolic blood irbrhzgr645 mm[Hg]DO [employer] Work Phone: [facility]11-03-2023 20:47-0400 Body rsacmc000.96 cmDO [employer] Work Phone: [phone]11-03-2023 20:47-0400 Body hqldnqhlhla41.9 [degF]DO [employer] Work Phone: [facility]11-03-2023 20:47-0400 Body wjlryg12.3 kgDO [employer] Work Phone: [facility]11-01-2023 15:45-0400 Body xxkucq183.96 cmBenjalorena [employer] Other [facility] Other 11-01-2023 15:45-0400Body mass index (BMI) [Ratio] 23.65 kg/i1Wnmnmial Ball Other [employer] Other 11-01-2023 15:45-0400Body vtgqbdcxmgu31.3 [degF] [employer] Other [employer] Other 11-01-2023 15:45-0400Body itcvqt53.55 kgBenjamin Ball Other [facility] Other 11-01-2023 15:45-0400Diastolic blood xsilhuai03 mm[Hg] Cisco Ball Other [employer] Other 11-01-2023 15:45-0400Respiratory rate12 /minBenjamin Ball Other [employer] Other 11-01-2023 15:45-0400Systolic blood beaafkyi175 mm[Hg] Cisco Ball Other [employer] Other 10-04-2023 08:45-0400Body iwsxei225.96 cmBenjamin Ball Other [employer] Other 10-04-2023 08:45-0400Body mass index (BMI) [Ratio] 23.62 kg/o5Uerltvey Ball Other [employer] Other 10-04-2023 08:45-0400Body hsluos46.46 kgBenjamin Ball Other [employer] Other 10-04-2023 08:45-0400Diastolic blood jefdfnhj71 mm[Hg] Cisco Ball Other [employer] Other 10-04-2023 08:45-0400Respiratory rate12 /minBenjamin Ball Other [employer] Other 10-04-2023 08:45-0400Systolic blood mbliarog746 mm[Hg] Cisco Ball Other [employer] Other 09-05-2023 11:30-0400Body ybunuq810.96 cmBenjamin Ball Other [employer] Other 09-05-2023 11:30-0400Body mass index (BMI) [Ratio] 23.34 kg/e4Mhhxumwh Ball Other [employer] Other 09-05-2023 11:30-0400Body frvoxf46.46 kgBenjamin Ball Other [employer] Other 09-05-2023 11:30-0400Diastolic blood xuolpdqn77 mm[Hg] Cisco Ball Other [employer] Other 09-05-2023 11:30-0400Respiratory rate12 /minBenjamin Ball Other [employer] Other 09-05-2023 11:30-0400Systolic blood qwulzxjx203 mm[Hg] Cisco Ball Other [employer] Other 07-16-2023 08:00-0400Diastolic blood mm[Hg] DO Cisco Ball Work Phone: [facility]07-16-2023 08:00-0400 Heart rate62 /minDO Cisco Ball Work Phone: [phone]07-16-2023 08:00-0400 Respiratory rate16 /minDO Cisco Ball Work Phone: [phone]07-16-2023 08:00-0400 SaO2% (BldA) [Mass fraction]96 %DO Cisco Ball Work Phone: [phone]07-16-2023 08:00-0400 Systolic blood pxgjslwa725 mm[Hg]DO Cisco Ball Work Phone: [phone]07-16-2023 06:58-0400 Body etdtob701.96 cmDO Cisco Ball Work Phone: [phone]07-16-2023 06:58-0400 Body qkkuif24.8 kgDO Cisco Ball Work Phone: [phone]07-11-2023 08:30-0400 Body .96 cmBenjamin Ball Other [employer] Other 07-11-2023 08:30-0400Body mass index (BMI) [Ratio] 24.21 kg/k3Liyafobg Ball Other [employer] Other 07-11-2023 08:30-0400Body aobbxy03.55 kgBenjamin Ball Other [employer] Other 07-11-2023 08:30-0400Diastolic blood nxoxlwzc80 mm[Hg] Cisco Ball Other [employer] Other 07-11-2023 08:30-0400Respiratory rate12 /minBenjamin Ball Other [employer] Other 07-11-2023 08:30-0400Systolic blood loyxhcme947 mm[Hg] Cisco Ball Other [employer] Other 04-07-2023 11:45-0400Body tywocf696.96 cmBenjamin Ball Other [employer] Other 04-07-2023 11:45-0400Body mass index (BMI) [Ratio] 24.98 kg/c2Xbmhzcjs Ball Other [employer] Other 04-07-2023 11:45-0400Body .27 kgBenjamin Ball Other [employer] Other 04-07-2023 11:45-0400Diastolic blood hpedjunl12 mm[Hg] Cisco Ball Other [employer] Other 04-07-2023 11:45-0400Respiratory rate12 /minBenjamin Ball Other [employer] Other 04-07-2023 11:45-0400Systolic blood yblmojbg620 mm[Hg] Cisco Ball Other [employer] Other 03-08-2023 08:30-0500Body nebidp753.96 cmBenjamin Ball Other [employer] Other 03-08-2023 08:30-0500Body mass index (BMI) [Ratio] 24.73 kg/q3Ycxddxvq Ball Other [employer] Other 03-08-2023 08:30-0500Body youxxq19.36 kgBenjamin Ball Other [employer] Other 03-08-2023 08:30-0500Diastolic blood pyujfjsl28 mm[Hg] Cisco Ball Other [employer] Other 03-08-2023 08:30-0500Respiratory rate12 /minBenjamin Ball Other [employer] Other 03-08-2023 08:30-0500Systolic blood mm[Hg] Cisco Ball Other [employer] Other 02-21-2023 09:45-0500Body .96 cmBenjamin Ball Other [employer] Other 02-21-2023 09:45-0500Body mass index (BMI) [Ratio] 24.31 kg/y9Rttauflc Ball Other [employer] Other 02-21-2023 09:45-0500Body lhbiuw11.91 kgBenjamin Ball [facility] [employer] Other 02-21-2023 09:45-0500Diastolic blood pzvsrove09 mm[Hg] Cisco Ball Other [employer] Other 02-21-2023 09:45-0500Respiratory rate12 /minBenjamin Ball Other [employer] Other 02-21-2023 09:45-0500Systolic blood mm[Hg] Cisco Ball Other [employer] Other 01-11-2023 10:48-0500Diastolic blood atuxcehf89 mm[Hg] DO Cisco Ball Work Phone: [facility]01-11-2023 10:48-0500 Heart rate64 /minDO Cisco Ball Work Phone: [phone]01-11-2023 10:48-0500 Respiratory rate16 /minDO Cisco Ball Work Phone: [facility]01-11-2023 10:48-0500 SaO2% (BldA) [Mass fraction]96 %DO Cisco Ball Work Phone: [phone]01-11-2023 10:48-0500 Systolic blood sbzvhrxa892 mm[Hg]DO Cisco Ball Work Phone: [phone]01-11-2023 09:01-0500 Body .96 cmDO Cisco Ball Work Phone: [facility]01-11-2023 09:01-0500 Body xzowtlpbrhj07.8 [degF]DO Cisco Ball Work Phone: [phone]01-11-2023 09:01-0500 Body vyopud59.63 kgDO Cisco Ball Work Phone: [facility] Encounters Encounter DateEncounter TypeCare ProviderFacilityStart: 05-05-2025 End: 32-14-3554pwbubfrwewLwceopfk Ball DO Work Phone: [facility] Work Phone: Start: 05-05-2025 End: 59-14-6874Siukozq encounter procedureBeemmie Mcadams DO-[facility] Work Phone: Start: 03-31-2025 End: 69-48-1792HbulneBhgkfohz D Zahler DO Work Phone: [facility] EyeComment on above:Primary open angle glaucoma (POAG) of both eyes, moderate stageStart: 04-51-7703Osk-patient / Non-visitOmid Mayen DO-[facility] Work Phone: Start: 02-23-2025 End: 07-93-0926kycpgegbxpWNLP [facility] Hospitalt[facility]: 66-98-1060Lpp-patient / Non-visitAnjelica Long MD-[facility] Work Phone: Start: 02-14-2025 End: 39-22-3840zounlxhytwOtvnhytj Ball DO Work Phone: [facility] Work Phone: Start: 02-14-2025 End: 88-88-1940Ogtninh encounter procedureBeemmie Mcadams DO-[facility] Work Phone: Start: 80-50-2188Ruz-patient / Non-visitCatmarcos Kenney CMA-[facility] Work Phone: Start: 21-68-4490Yzn-patient / Non-visitNatalie ARMENTA -[facility] Work Phone: Start: 02-08-2025 End: 24-29-8706PfbzngLjccmqnk D Zahler DO Work Phone: noms OPHTComment on above:Primary open angle glaucoma (POAG) of both eyes, moderate stageStart: 01-26-2025 End: 23-82-2412sztpkitsomKwkzaogdlTrumbull Regional Medical Center Work Phone: Start: 01-26-2025 End: 89-30-8122Wramekw encounter procedureFormerly [facility] Work Phone: Start: 01-12-2025 End: 78-26-1674XifgmtStlkcfg Alaniz COTNOMS OPHTComment on above:Primary open angle glaucoma (POAG) of both eyes, moderate stage (Primary Dx)Start: 01-10-2025 End: 82-22-3100Cizgyy Kassandra Jacobsen DO Work Phone: noms OPHTStart: 01-10-2025 End: 79-17-9404Scwnfn Kassandra Jacobsen DO Work Phone: noms OPHTStart: 01-10-2025 End: 16-95-4862xqlkxjrpteFGVLMRDF D ZAHLERNot AvailableStart: 11-62-8109Ala- patient / Non-visitFormerly [facility], [facility] Work Phone: Start: 01-03-2025 End: 27-56-7165Roekmsk encounter procedureFormerly [facility], [facility] GroupSum[facility] Work Phone: Start: 12-28-2024 End: 42-66-2440elekevpeazYgiqpihniTrumbull Regional Medical Center Work Phone: Start: 12-28-2024 End: 04-59-4542Qepktgg encounter procedureFormerly [facility], [facility] GroupSum[facility] Work Phone: Start: 12-13-2024 End: 04-35-4576awvskwagejTVKCProMedica Flower Hospitaltart: 12-12-2024 End: 21-24-3305pndpzcjxkbRaatrzuiyTrumbull Regional Medical Center Work Phone: start: 12-12-2024 End: 20-07-3609Pjkzsvt encounter procedureFirelands Physician Group-[facility] Work Phone: Start: 11-15-2024 End: 07-28-6297acehpsdhszLygtccscrC[facility] Clinic [facility] Work Phone: Start: 11-15-2024 End: 21-41-6559Jczcyvz encounter procedureFirelands Physician Group-[facility] Work Phone: Start: 10-28-2024 End: 29-96-2683ynxuqvvudjOtnyxcatlCleveland Clinic [facility] Work Phone: Start: 10-28-2024 End: 67-71-3550Bxtkxaw encounter procedureFirelands Physician Group-[facility] Work Phone: Start: 09-21-2024 End: 10-56-5949ojpotkazijPiguchliiCleveland Clinic [facility] Work Phone: Start: 09-21-2024 End: 97-38-4918Qaygoei encounter procedureFirelands Physician Group-[facility] Work Phone: Start: 09-14-2024 End: 85-10-3188tdckgavzowSdlzoarlwCleveland Clinic [facility] Work Phone: Start: 09-14-2024 End: 84-37-3015Rphxzes encounter procedureFirelands Physician Group-[facility] Work Phone: Start: 09-07-2024 End: 03-47-2909zibuppfmjsQzgufkxfpCleveland Clinic [facility] Work Phone: Start: 09-07-2024 End: 23-91-3961Rjxpdel encounter procedureFirelands Physician Group-[facility] Work Phone: Start: 10-73-3247Aji-patient / Non-visitFirelands Physician Group-[facility] Work Phone: Start: 09-01-2024 End: 50-86-5181ccndqnqbwbGkpugzauwCleveland Clinic [facility] Work Phone: Start: 09-01-2024 End: 21-58-1546Rphxrpv encounter procedureFormerly [facility], [facility] GroupSum[facility] Work Phone: Start: 81-93-7448Ozemccw encounter procedureProMedica Fostoria Community Hospitaltart: 07-28-2024 End: 51-86-4950CsuodoDguafhr DariuszCincinnati [facility] Work Phone: noms NB OPHTComment on above:Primary open angle glaucoma (POAG) of both eyes, moderate stage (CMS/HCC)Start: 07-11-2024 End: 77-08-7012Vnwlrnv encounter procedureFormerly [facility], [facility] GroupSum[facility] Work Phone: Start: 07-05-2024 End: 22-90-3711Vrhsnv flowsheetMiguel Angel Mayen Zahler DO Work Phone: noms NB OPHTStart: 07-05-2024 End: 31-30-5226Iwziyf flowsheetJonathan Tiarra Zahler DO Work Phone: noms NB OPHTStart: 07-05-2024 End: 43-62-9308jpqvljjbxnTGKBDRVO D ZAHLERNot AvailableStart: 06-12-2024 End: 97-97-7187PlqnmmBqhqxocv Tiarra Zahler DO Work Phone: noms NB OPHTComment on above:Primary open angle glaucoma (POAG) of both eyes, moderate stage (CMS/HCC) (Primary Dx)Start: 05-04-2024 End: 85-48-2763mumibcpkzlGdimvptwzTrumbull Regional Medical Center Work Phone: Start: 05-04-2024 End: 20-03-3395Gkkzvkg encounter procedureFormerly [facility], [facility] GroupSum[facility] Work Phone: Start: 03-19-2024 End: 00-24-1145tctaulbplgUjaydmhguTrumbull Regional Medical Center Work Phone: Start: 03-19-2024 End: 90-65-5604Swwktfy encounter procedureFormerly [facility], [facility] Work Phone: Start: 25-28-0692Lji-patient / Non-visitFormerly [facility], [facility] Work Phone: Start: 03-14-2024 End: 47-34-6586zsuxyysyoqDxqpdwvfsTrumbull Regional Medical Center Work Phone: Start: 03-14-2024 End: 19-58-7487Juzkfgh encounter procedureFormerly [facility], [facility] Work Phone: Start: 02-24-2024 End: 92-41-2685iseqrjymksOYBMPJAT Tiarra ZAHLERNot AvailableStart: 02-22-2024 End: 80-51-4048pblcbvuzemJSPBI B APLINGNot AvailableStart: 01-28-2024 End: 54-88-5421omokbdbnihYiopklsqtTrumbull Regional Medical Center Work Phone: Start: 01-28-2024 End: 61-08-2886Mukyktn encounter procedureFormerly [facility], [facility] Work Phone: Start: 69-63-2899Mhu-patient / Non-visitFirriverside health system [facility] Work Phone: Start: 11-27-2023 End: 24-30-0901igqmzqvoagAgdxurloyTrumbull Regional Medical Center Work Phone: Start: 11-27-2023 End: 34-22-0093Ypefooj encounter procedureFormerly [facility], [facility] Work Phone: Start: 86-35-0092Yrl-patient / Non-visitFormerly [facility], [facility] Work Phone: Start: 11-06-2023 End: 83-07-2803qzuybifxzsIpngmcgdlC[facility] Clinic [facility] Work Phone: Start: 11-06-2023 End: 14-06-2154Whhucnw encounter procedureUnc [facility] Work Phone: Start: 10-28-2023 End: 41-49-3353Fkjmvxv encounter procedureFirterry Physician Group-[facility] Work Phone: Start: 53-86-2551Cvc-patient / Non-visitFirterry Physician Group-[facility] [employer] Work Phone: Start: 09-21-2023 End: 93-72-1197vwtbdwmelvKoytidaf Ball Other [employer] Other Start: 02-25-4147Csifabfce encounterBenman Mcadams Medical ClinicStart: 09-16-2023 End: 90-59-3893bfxohuzsjkDgjflnjf Ball Other [employer] Other Start: 52-52-0083Pptyqrhaq encounterBenjamin Fercho [facility] Medical ClinicStart: 09-15-2023 End: 46-24-2951mqcdwppircDvsnyguu Ball Other [employer] Other Start: 00-35-2487Dgntuw outpatient visit 15 minutes Cisco Fercho [facility] ClinicStart: 09-15-2023 End: 71-77-5708Fdgwevh encounter procedureSherin Physician Group-Start: 09-02-2023 End: 47-21-2214Xcpeejw encounter procedureMichael R NILL General Surgery Nill/Said [place] Start: 08-30-2023 End: 89-86-3939gexinijilfBeufcxap Ball Other [employer] Other Start: 06-37-7528Jfqwktryn encounterBenman Mcadams Medical ClinicStart: 08-28-2023 End: 06-37-3951jdxkdyqfftColcitjz Ball Other [phone] Other Start: 94-01-1168Mnbnjnj encounter procedureBenman Mcadams Medical ClinicStart: 39-03-8899Ylrfcydlq encounterBenman Mcadams Medical ClinicStart: 08-28-2023 End: 52-72-9294Aouezzy encounter procedureFirelands Physician Group-[facility] Work Phone: Start: 55-00-7031xvxrxgyeutSfdzhim R NILLFacility:[facility] CenterueStart: 08-26-2023 End: 01-23-3961Keyeykx encounter procedureMichael R NILL General Surgery Nill/Said [place] Start: 08-24-2023 End: 78-27-3824shptpwrhfhUzwhuekg Ball Other [employer] Other Start: 67-93-5604Iownwzcip encounterBenman Mcadams Medical ClinicStart: 08-23-2023 End: 27-82-7508yangpsmzmhShdzdbqw Ball Other [employer] Other Start: 19-44-2986Bafagpgcm encounterBeemmie Mcadams [facility] Hospitaltart: 07-28-2023 End: 62-18-8724ridnmmvehuFpekeer R NILLFacility:[facility]tart: 07-28-2023 End: 86-19-8953Qttuwhk encounter procedureMichael R NILL General Surgery Nill/Said [place] Start: 07-01-2023 End: 37-12-7491yilqegbcuuIgajtwdy Ball Other [employer] Other Start: 56-05-9538Wpnialekmzmc care manage srvc 14 day dischargeBeemmie Brantley [facility]ertart: 38-81-2764pgrrfveojgTkcdjez NILLFacility:[facility]vueStart: 06-24-2023 End: 29-74-9999mpnhxauntpVqqenzky Ball Other [employer] Other Start: 83-41-1509Dklnzzqgc encounterBenjamin BallFPG [facility] Medical ClinicStart: 06-20-2023 End: 88-22-7106Xghkrcnucw and management of inpatientSteven Elwood Facility:[facility]tart: 01-44-6642Qesnkrersd and management of inpatientDO Cisco Mcadams Work Phone: [facility] [place] [facility] Work Phone: Start: 10-53-0016dpgvdofsqnf encounterDO Cisco Mcadams Work Phone: [facility] Work Phone: Start: 06-19-2023 End: 07-04-3001tewewspsxmUejiohrv Ball Other [facility] [employer] Other Start: 42-09-3077Mentarjnh encounterBenjamin BallFPG [facility] ClinicStart: 06-18-2023 End: 07-79-6280vaqqhnjiveQzctzjvo Ball Other [facility] [employer] Other Start: 97-28-2098Dkldymyjy encounterBenjamin BallFPG [facility] ClinicStart: 06-17-2023 End: 02-99-3673lklgkheaemVvndyyqr Ball Other [employer] Other Start: 02-40-1048Czcbtq outpatient visit 15 minutes Cisco BallFPG [facility] ClinicStart: 23-24-7852Musclmgkz encounterBenjamin BallFPG [facility] ClinicStart: 06-02-2023 End: 74-67-6769zfosymbojyQxtcvwfc Ball Other [employer] Other Start: 64-27-7438Okzrcndbq encounterBenjamin BallFPG [facility] ClinicStart: 05-20-2023 End: 90-88-3321gxidwoboxmJgxcjwwj Ball Other [employer] Other Start: 48-01-5558Pwxvki outpatient visit 25 minutes Cisco BallFPG [facility] ClinicStart: 05-11-2023 End: 34-76-4497lebljiuwydRnnccqbg Ball Other [facility] [employer] Other Start: 40-71-7020Aqzmctgwn encounterBenjamin BallFPG [facility] ClinicStart: 04-27-2023 End: 54-28-1335shzccvefmiVqwglnkk Ball Other [facility] [employer] Other Start: 42-71-9589Zxheholkj encounterBenjamin BallFPG [facility] ClinicStart: 04-23-2023 End: 78-07-4859rcdkxkdxihPbdhatuo Ball Other [facility] [employer] Other Start: 52-28-0969Eielxjfgt encounterBenjamin BallFPG [facility] ClinicStart: 04-21-2023 End: 59-76-7838lilgehfimtAcvamnoq Ball Other [facility] [employer] Other Start: 68-55-3064Kbgehb outpatient visit 25 minutes Cisco BallFPG [facility] ClinicStart: 03-16-2023 End: 59-98-2334ggenqtaxczWpzbzxmx Ball Other noLabels [employer] Other Start: 91-77-2763Umvncbsaj encounterBenjamin BallFPG [facility] ClinicStart: 44-80-8136Xpryxavsr encounterBenjamin BallFPG [facility] ClinicStart: 03-04-2023 End: 86-36-2129rkyshffykfMu. Cisco Carrilloscot[facility] [employer] Other Start: 03-03-2023 End: 71-49-0626rmljcjwmylPlkwqxuz Ball Other [employer] Other Start: 71-21-5957Qcjfbabyi encounterBenjamin BallFPG [facility] ClinicStart: 03-01-2023 End: 78-41-6416rbxajxtcuzWq. Cisco McadamsFacility:9090Start: 03-01-2023 Evaluation and management of inpatientDO Cisco Mcadams Work Phone: [facility] [place] [facility] Work Phone: Start: 35-22-0794upetfucspnq encounterDO Cisco Mcadams Work Phone: [facility] Work Phone: Start: 02-24-2023 End: 27-89-4994vfuucuhsggOojgfrfm Ball Other [employer] Other Start: 48-39-5362Rjpmdy outpatient visit 25 minutes Cisco BallCYNDIG [facility] ClinicStart: 01-20-2023 End: 66-71-1835hdsvlccvktRqidhfig Ball Other [employer] Other Start: 51-40-7925Krgcdfbpw encounterBenjamin BallFPG [facility] ClinicStart: 11-21-2022 End: 65-45-7925conpjjtlokGtaogzhz Ball Other [employer] Other Start: 80-65-9759Uxssyn outpatient visit 15 minutes Cisco BallFPG [facility] ClinicStart: 10-22-2022 End: 27-34-2696tjnwtqgjhhGmylwiaj Ball Other [employer] Other Start: 72-91-1863Zczujz outpatient visit 25 minutes Cisco Mcaadms Medical ClinicStart: 10-12-2022 End: 41-31-3784vfcjimvjeaSdgjddfw BallFacility:[facility] Start: 10-12-2022 End: 49-36-5437intxpusecmWC Cisco Mcadams Work Phone: [facility] Work Phone: Start: 10-12-2022 End: 06-86-3286Ayhneco encounter procedureDO Cisco Mcadams Work Phone: [facility]-Lab [facility] [place] Work Phone: Start: 10-07-2022 End: 34-13-9555ghthcqdztkMtefunmq Abbe Other no[employer] Other Start: 36-22-7195Ploawo outpatient visit 15 minutes Cisco Mcadams Medical ClinicStart: 09-14-2022 End: 97-35-1797lohgmbqoeeIC CISCO MCADAMSFacility:K9Oxzcb: 09-08-2022 End: 96-28-3878zigfzuhligHwpy Asaad Other [employer] Other Start: 84-09-4964Lvjpzghyv encounterImad AsaadFPG GastroenterologyStart: 09-05-2022 End: 91-11-3377hhqgkfisgoXnitmnsy Ball Other no[employer] Other Start: 84-80-4254Sjrhzvitc encounterBenjalorena Mcadams Medical ClinicStart: 09-03-2022 End: 01-97-8822qghencbgraKpwg Asaad Other no[employer] Other Start: 75-69-5964Laopogvgs encounterImad AsaadFPG GastroenterologyStart: 09-01-2022 End: 02-21-0016gmqptltvmfBdrl Asaad Other no[employer] Other Start: 40-61-9436Ckysbveun encounterImad AsaadFPG Referral CoordinatorStart: 81-96-6519Wkjgwvwjc encounterCameroabigail SchultzyFPG [facility] ClinicStart: 08-27-2022 End: 92-30-4493aeowgrlphvKrkjgheo BallFacility:[facility] Start: 08-27-2022 End: 59-28-8021Tkbkcokwe to same day surgery centerDO Cisco Ball Work Phone: [facility]-Digestive [facility] Work Phone: Start: 08-27-2022 End: 89-66-8137nlqfzpyfayDA Csico Ball Work Phone: [facility] Work Phone: Start: 08-22-2022 End: 46-50-6988mhanstkfypQhdk Asaad Other [employer] Other Start: 96-97-8388Tpyouubeo encounterImad AsaadFPG Referral CoordinatorStart: 08-20-2022 End: 33-20-2313kdvzkbsxnnAbyivfjk Ball Other no[employer] Other Start: 17-22-5470Vyathqncw encounterBenjamin BallFPG [facility] ClinicStart: 08-19-2022 End: 64-19-4684sijejxahxrFaiheryu Ball Other no[employer] Other Start: 45-70-8436Dzlepapms encounterBenjamin BallFPG [facility] Medical ClinicStart: 07-28-2022 End: 20-77-3769sfmvaefqsqLT CISCO BALLFacility:H6Wrliz: 07-01-2022 End: 98-10-7981brfvrwaoieLR CISCO BALLFacility:U3Kxtxt: 06-29-2022 End: 06-19-6925uogxuoubcgTQ CISCO BALLFacility:E7Tuolm: 05-02-2022 End: 09-49-9985jkjxdbpvzzEU CISCO BALLFacility:O3Aspjb: 03-28-2022 End: 50-48-3559xdcwgbcdkmNE DAISHA Garcia SMITHFacility:U8Gorkt: 03-20-2022 End: 13-17-3992dbhfjxezqvPDOEZVJX ZAHLERFacility:P7Ijhxb: 02-04-2022 End: 33-13-2019ljfgfdyzphYC CISCO BALLFacility:H1 Procedures DateProcedureProcedure DetailPerforming ClinicianStart: 01-10-2025 End: 46-43-5362DfrahRoberts Chapel&eval comprhnsv estab pt 1/>Blepharitis of upper and lower eyelids of both eyes, unspecified typeMiguel Angel Mayen [employer]Like Work Phone: comment on above:Blepharitis of upper and lower eyelids of both eyes, unspecified type (Primary Dx); Diplopia; Dry eyes; PCO (posterior capsular opacification), bilateral; Primary open angle glaucoma (POAG) of both eyes, moderate stageStart: 07-05-2024 Visual field xm uni/bi w/interp extended examMiguel Angel Jacobsen DO Work Phone: Start: 07-05-2024 End: 02-67-0132MjafdRoberts Chapel&eval Tamarachnsv estab pt 1/>Primary open angle glaucoma (POAG) of both eyes, moderate stage (CMS/HCC)Miguel Angel Jacobsen DO Work Phone: comment on above:Primary open angle glaucoma (POAG) of both eyes, moderate stage (CMS/HCC) (Primary Dx); Dry eyes; PCO (posterior capsular opacification), bilateral; Blepharitis of upper and lower eyelids of both eyes, unspecified type; DiplopiaStart: 13-29-6694Xxwffd of left inguinal herniaMichael NILL Start: 92-22-4228QICP-CoV-2, Influenza & RSV (PCR)DO Cisco Mcadams Work Phone: Start: 74-76-4728WE of head without contrastDO Cisco Mcadams Work Phone: Start: 04-75-4054Vbkcw chest X-rayDO Cisco Mcadams Work Phone: Start: 01-75-2961AwgnjehlbttfyzkilirkixnndgUM Cisco Mcadams Work Phone: Start: 54-49-9399NkpptitwodjZqmrzzg NILL Start: 12-40-9482XxgmmglokhgykqnaqikthtpdzeGpwhfzr NILL Start: 13-74-1188XVV screeningMIGUEL ANGEL Wilcoxment on above:Performed By: #### PSASC #### [facility] [address] [place] [address] Dr. Patrica Hunterac catheterizationMichael NILL History of operative procedure on shoulderMichael NILL Comment on above:x4Dxpfozn of repair of inguinal hernia H/O bilateral inguinal hernia repairHistory of repair of inguinal herniaH/O bilateral inguinal hernia repairBenjamin Ball DORepair of right inguinal hernia Angely NILL Plan of Treatment DateCare ActivityDetailAuthorStart: 07-11-2025 End: 58-35-1710Dctowcr encounter procedureNOMS OPHTStart: 09-37-4169Npepqdzuj vaccinationInfluenza Vaccine (#1)[facility] HealthcareStart: 01-10-2025 End: 26-49-7452Ipjybhx encounter mzcxrbhqu07/27/2025 9:00 AM EDT Office Visit [facility] [address] [place] [id number] Miguel Angel Jacobsen DO [address] [place] [address] ArrivedNOMS NB OPHTComment on above:ArrivedStart: 01-03-2025 End: 14-65-5033Excmuab encounter /20/2025 9:45 AM EDT Office Visit [facility] [address] [place] [id number] Miguel Angel Jacobsen, [address] [place] [address] [facility] NB OPHTStart: 07-05-2024 End: 07-16-3600Hisxxyl encounter procedureNOMS NB OPHTComment on above:Arrived Start: 77-13-3433Elvzxjoni vaccinationInfluenza Vaccine (#1)[facility] Healthcare Start: 18-64-4952Yuzve chest X-rayXR chest 2V*[facility] Start: 42-07-1330BB Chest 2 ViewsProMedica Fostoria Community Hospitaltart: 53-39-7574Scprbrlf admissionProMedica Fostoria Community Hospitaltart: 06-20-2023 [facility] Hospitaltart: 58-62-0719EW of head without contrastCT head/brain wo [facility] Centertart: 80-53-0037QK Unspecified body region WO [facility] Hospitaltart: 28-11-5491Pcuhouws therapy procedureProMedica Fostoria Community Hospitaltart: 32-71-8029Osjyrdyb to occupational therapistMercy Health U[facility] Hospital Start: 53-19-2258Bityupnf to neurologistProMedica Fostoria Community Hospitaltart: 72-33-3216Jvysidoo admissionProMedica Fostoria Community Hospitaltart: 03-01-2023 [facility] CenterStart: 77-08-6587FecsbgplqProMedica Fostoria Community Hospitaltart: 52-76-3525Sdywtkqfnjya Vaccine: 65+ Years (2 of 2 - PCV) Pneumococcal Vaccine: 65+ Years (2 of 2 - PCV)NOM HealthcareBacteria identified in Urine by CultureMercy Health Urbana HospitalComprehensive metabolic 2000 panel - Serum or PlasmaMercy Health Urbana HospitalCT Abdomen and Pelvis W contrast [facility] Medical CenterHelicobacter pylori Ag [Presence] in Stool by ImmunoassayMercy Health Urbana HospitalPatient EducationColon Polypectomy (DC)[facility] Work Phone: [place] Lower extremity vein - bilateralG[facility]ree[facility] Immunizations Immunization DateImmunizationNotesCare IbtbczpcCjwyriuz33-43-5200lzujnqtss, high dose seasonal, preservative-freeMercy Health Urbana Hospital09-18-2024 influenza virus vaccine, unspecified formulationKhushboocorazon Jacobsen DO Work Phone: [facility] CenterQrjzmqajnl18-93-2466flphharue virus vaccine, unspecified formulationMercy Health Urbana Hospital11-15-2023influenza, high dose seasonal, preservative-freeBenjamin Abbe Other [employer] Other [id number]-EvV-5 (COVID-19) mRNAMUL.ORD!d78314 Angely GAGE General Surgery Wwxtmkdh74-83-7149hsgbuqoim virus vaccine, split virus (incl. purified surface antigen)Cisco Mcadams Other [employer] Other [id number] virus vaccine, unspecified formulationMercy Health Urbana Hospital08-12-2022diphtheria, tetanus toxoids and acellular pertussis vaccine, unspecified formulationBeemmie Mcadams Other [facility]04-02-2022SARS-CoV-2 mRNA (phizbxhvfnn-lurs-fbsgjjg) vaccineMichael NILL [facility] Zhcbcwse96-92-4952cyvqgmfwn virus vaccine, split virus (incl. purified surface antigen)Cisco Mcadams Other [employer] Other 660293-22-9521nyjephqfp virus vaccine, unspecified formulationMercy Health Urbana Hospital10-02-2021SARS-CoV-2 (COVID-19) mRNA BNT-162b2 vaxMichael NILL [facility] Surgery BellevueComment on above:Result Comment: 2023-07-14: [id number]-VwC-2 (COVID-19) mRNA BNT-162b2 vax Angely NILL [facility] Surgery BellevueComment on above:Result Comment: 2023-07-14: [id number]-94 Vaccine Pfizer - Documentation Purposes Jorge Abbe Other [facility] BellueComment on above:Result Comment: 2023-07-14: IWE0822-97-8108rcbclfvwj virus vaccine, split virus (incl. purified surface antigen)Cisco Mcadams Other [employer] Other 10366073-76-6871wdclpmpxk virus vaccine, unspecified formulationMercy Health Urbana Hospital10-16-2019influenza virus vaccine, split virus (incl. purified surface antigen)Cisco Mcadams Other [employer] Other 10853967-75-3602rfcxdqrvd virus vaccine, unspecified formulationMercy Health Urbana Hospital10-24-2018influenza virus vaccine, split virus (incl. purified surface antigen)Cisco Mcadams Other [employer] Other 10947526-75-7194jegslywqc virus vaccine, unspecified formulationMercy Health Urbana Hospital09-28-2017tetanus and diphtheria toxoids, adsorbed, preservative free, for adult use (5 Lf of tetanus toxoid and 2 Lf of diphtheria toxoid)Cisco Mcadams Other [facility]10-10-2016influenza virus vaccine, split virus (incl. purified surface antigen)Cisco Mcadams Other [employer] Other 10904752-17-5083pwmidebfe virus vaccine, unspecified formulationMercy Health Urbana Hospital04-12-2016pneumococcal conjugate vaccine, 13 valCassi Mcadams Other [facility]10-14-2015influenza virus vaccine, split virus (incl. purified surface antigen)Cisco Mcadams Other [place] [employer] Other 10037796-84-9907vquqbypty virus vaccine, unspecified formulationMercy Health Urbana Hospital10-29-2013pneumococcal polysaccharide vaccine, 23 valentBenman Mcadams Other [facility]10-07-2013tetanus and diphtheria toxoids, adsorbed, preservative free, for adult use (5 Lf of tetanus toxoid and 2 Lf of diphtheria toxoid)Cisco Mcadams Other [facility] HospitalNEGATED: Highlighted row has not occurred!46-01-0843cgcsefayl virus vaccine, unspecified formulation Angely GAGE General Surgery [place] Payers DatePayer CategoryPayerPolicy [id number] Health InsuranceAARP [id number] 2008MedicareMEDICARE .[id number] [id number] 2.0.1.020780.3.57[id number] 2.840.1.992748.3.57[id number] 2.0.1.936566.3.57[id number] 2.840.1.085140.3.57[id number] 2.840.1.440611.3.57[id number] 2.840.1.847190.3.57[id number] 2.840.1.778956.3.57[id number] 2.840.1.301612.3.57[id number] 2.16840.1.120291.3.57[id number] 2.16840.1.992724.3.57[id number] 2.16840.1.558178.3.57[id number] 2.16.840.1.980431.3.57[id number] 2.16.840.1.492568.3.57[id number] 2..840.1.793228.3.57[id number] 2.16.840.1.142758.3.57[id number] 2.16.840.1.9016[id number] 2..840.1.650445.3.579.2.531 [id number] 2.0.1.2[id number] 2.0.1.7[id number] 2.0.1.776002.3.579.2.531 Social History DateTypeDetailFacilityTobacco smoking status NHISUnknown if ever smokedSouthwest General Health Center Work Phone: Start: 79-58-2617Ser Ass[facility] At [facility] Hospitaltart: 02-22-2024 End: 69-23-8245Yia Assigned At [facility] Hospitaltart: 03-01-2023 End: 10-18-7018Ljddcgq smoking status NHISEx-smoker (finding)[facility] HospitalTobacco smoking statusNeverGeneral Surgery BellevueHistory of tobacco useCurrent smokerNOMS HealthcareHistory of tobacco useCigarette Smoker [facility] HealthcareStart: 75-49-6135Xktexfy use and exposureSmokeless tobacco non-userNOMS HealthcareStart: 02-22-2024 End: 22-12-2188Irnstgy of Social functionNortheast Regional Medical CenterStart: 75-28-9702Hxc assigned at birthNot on fileNortheast Regional Medical CenterStart: 09-01-2024 End: 51-89-2703MvzXdpa (finding)[facility] Goals DatePatient GoalDesired Activity/State Functional Status OxtzVkgmxvrkoqZvhsecFhclrqnb86-65-7647Jqqwaugqla StatusN/AGeneral Surgery [place] Clinical Notes 03-20-2022 to 02-23-2025 Note Date & SrydQbvjErzemmnl96-07-6483 [facility] Chief Complaint: [...] as an outpatient. 5. Follow up with de in the [place] [facility] in 1 to 2 months. 6. [...] aortic and tricuspid reg (more content not included)...[facility]07-[facility]-20[facility] Evaluation note* Diagnosis Onset Date Resolution Status Admit Date ASHD (arteriosclerotic heart disease) acuteJuly 2024 9:57amGAD (generalized anxiety disorder)acuteJuly 2024 9:57amHypertensionacuteJuly 2024 9:57amAscending aortic aneurysmacute May 05, 2025 8:14amASHD (arteriosclerotic heart disease)acuteSeptember 2024 8:14amChronic venous insufficiency of lower extremityacuteSept2024 8:14amGAD (generalized anxiety disorder)acuteSept2024 8:14amHypercholesteremiaacuteSept2024 8:14amHypertensionacute May 05, 2025 8:14amIrritable bowel syndrome with constipationacute May 05, 2025 8:14amPeripheral polyneuropathyacuteSept2024 8:14amUlnar neuropathy at elbow of left upper extremityacuteSept2024 8:14am [facility] Work Phone: 1(397) 383-177205-27-2025 History of Present illness Narrative* Miguel Angel Jacobsen DO - 01/10/2025 9:00 AM EDT Images from [...] laser capsulotomy, they are to notify their ultimate hoops trainer promptly if they have a significant change [...] after cessation of Escitalopram. documented in this encounterNortheast Regional Medical CenterSamcttzcoc33-67-5481 [facility] Chief Complaint: Patient [...] 5. Follow up with me in the [place] [facility] in 1 to 2 months. 6. [...] 2. Mixed hyperlipidemia 3. Coronary arteriosclerosis in stillaguamish artery 4. Dilated aortic root P (more content not included)...[facility]04-28-2025 Evaluation note* Diagnosis Onset Date Resolution Status Admit Date SNHL (sensorineural hearing loss) acuteApril 2024 2:21pmBleeding from left earnoneactiveApril 2024 2:21pmExternal otitis of left earnoneactiveApril 2024 2:21pmAscending aortic aneurysmacuteMay 2024 8:18amASHD (arteriosclerotic heart disease) acuteMay 2024 8:18amChronic venous insufficiency of lower extremityacute December 28, 2024 8:18amGAD (generalized anxiety disorder)acuteMay 2024 8:18amHypercholesteremiaacuteMay 2024 8:18amHypertensionacuteMay 2024 8:18amIrritable bowel syndrome with constipationacuteMay 2024 8:18am Peripheral polyneuropathyacuteMay 2024 8:18amUlnar neuropathy at elbow of left upper extremityacuteMay 2024 8:18amAbdominal painacuteMay 2024 2:21pmH/O bilateral inguinal hernia repairacuteMay 2024 2:21pmInguinal hernia of right side without obstruction or gangreneacuteMay 2024 2:21pm Dysfunction of right eustachian tubeacuteJun2024 8:30amHypertensionacute January 26, 2025 8:30amSNHL (sensorineural hearing loss)acuteJun2024 8:30amASHD (arteriosclerotic heart disease)acuteJuly 2024 9:57amGAD (generalized anxiety disorder)acuteJuly 2024 9:57amHypertensionacuteJuly 2024 9:57am [facility] Work Phone: 1(609) 314-542103-14-2025 Evaluation note* Diagnosis Onset Date Resolution Status Admit Date Chronic venous insufficiency of lower ex tremity acuteMarch 2024 11:43amLower extremity ulcerationacuteMarch 2024 11:43amCerumen impactionnoneactiveMarch 2024 11:43amAphthous ulcer of mouthacuteApril 2024 2:40pmHypertensionacuteApril 2024 2:40pmSNHL (sensorineural hearing loss)acuteApril 2024 2:21pmBleeding from left ear noneactiveApril 2024 2:21pmExternal otitis of left earnoneactiveApril 2024 2:21pmAscending aortic aneurysmacuteMay 2024 8:18amASHD (arteriosclerotic heart disease)acuteMay 2024 8:18amChronic venous insufficiency of lower extremityacuteMay 2024 8:18amGAD (generalized anxiety disorder)acuteMay 2024 8:18amHypercholesteremiaacuteMay 2024 8:18amHypertensionacuteMay 2024 8:18amIrritable bowel syndrome with constipationacuteMay 2024 8:18amPeripheral polyneuropathyacuteMay 2024 8:18am [facility] Work Phone: 1(883) 334-792603-14-2025 Evaluation note* Diagnosis Onset Date Resolution Status Admit Date Chronic venous insufficiency of lower ex tremity acuteMarch 2024 11:43amLower extremity ulcerationdeletedMarch 2024 11:43amCerumen impactionnoneactiveMarch 2024 11:43amHypertensionacuteApril 2024 2:40pmAphthous ulcer of mouthdeletedApril 2024 2:40pmSNHL (sensorineural hearing loss)acuteApril 2024 2:21pmBleeding from left ear noneactiveApril 2024 2:21pmExternal otitis of left earnoneactiveApril 2024 2:21pmAscending aortic aneurysmacuteMay 2024 8:18amASHD (arteriosclerotic heart disease)acuteMay 2024 8:18amChronic venous insufficiency of lower extremityacuteMay 2024 8:18amGAD (generalized anxiety disorder)acuteMay 2024 8:18amHypercholesteremiaacuteMay 2024 8:18amHypertensionacuteMay 2024 8:18amIrritable bowel syndrome with constipationacuteMay 2024 8:18amPeripheral polyneuropathyacuteMay 2024 8:18amUlnar neuropathy at elbow of left upper extremityacuteMay 2024 8:18amAbdominal painacuteMay 2024 2:21pmH/O bilateral inguinal hernia repairacuteMay 2024 2:21pmInguinal hernia of right side without obstruction or gangreneacuteMay 2024 2:21pm [facility] Work Phone: 1(858) 342-949801-29-2025 Evaluation note* Diagnosis Onset Date Resolution Status Admit Date Chronic venous insufficiency of lower ex tremity acuteJanuary 2024 8:13amLower extremity ulcerationacuteJanuary 2024 8:13amSwelling of both lower extremitiesacuteJanuary 2024 8:13amChronic venous insufficiency of lower extremityacuteFebruary 2024 9:40amLower extremity ulcerationacuteFebruary 2024 9:40amSwelling of both lower extremitiesacuteFebruary 2024 9:40amChronic venous insufficiency of lower extremityacuteMarch 2024 11:43amLower extremity ulcerationacuteMarch 2024 11:43amCerumen impactionnoneactiveMarch 2024 11:43amAphthous ulcer of mouthacuteApril 2024 2:40pmHypertensionacuteApril 2024 2:40pm [facility] Work Phone: 1(193) 384-997401-16-2025 Evaluation note* Diagnosis Onset Date Resolution Status Admit Date Ascending aortic aneurysm acuteJanuary 2024 8:40amASHD (arteriosclerotic heart disease)acuteJanuary 2024 8:40amChronic venous insufficiency of lower extremityacuteAuguary 2024 8:40amGAD (generalized anxiety disorder)acuteJanuary 2024 8:40amHypercholesteremiaacuteJanuary 2024 8:40amHypertensionacuteJanuary 2024 8:40amIrritable bowel syndrome with constipationacuteAuguary 2024 8:40amMedicare annual wellness visit, subsequentacuteAuguary 2024 8:40amPeripheral polyneuropathyacuteAuguary 2024 8:40amScreening PSA (prostate specific antigen)acuteAuguary 2024 8:40amChronic venous insufficiency of lower extremityacuteJanuary 2024 9:20amLower extremity ulcerationacuteAuguary 2024 9:20amSwelling of both lower extremitiesacute September 07, 2024 9:20amChronic venous insufficiency of lower extremityacute September 14, 2024 8:13amLower extremity ulcerationacuteJanuary 2024 8:13amSwelling of both lower extremitiesacuteJanuary 2024 8:13amChronic venous insufficiency of lower extremityacuteFebruary 2024 9:40amLower extremity ulcerationacuteFebruary 2024 9:40amSwelling of both lower extremitiesacuteFebruary 2024 9:40am [facility] Work Phone: 1(469) 169-557001-16-2025 Evaluation note* Diagnosis Onset Date Resolution Status Admit Date Ascending aortic aneurysm acuteJanuary 2024 8:40amASHD (arteriosclerotic heart disease)acuteJanuary 2024 8:40amChronic venous insufficiency of lower extremityacuteAuguary 2024 8:40amGAD (generalized anxiety disorder)acuteJanuary 2024 8:40amHypercholesteremiaacuteJanuary 2024 8:40amHypertensionacuteJanuary 2024 8:40amIrritable bowel syndrome with constipationacuteJanuary 2024 8:40amMedicare annual wellness visit, subsequentacuteJanuary 2024 8:40amPeripheral polyneuropathyacuteJanuary 2024 8:40amScreening PSA (prostate specific antigen)acuteJanuary 2024 8:40amChronic venous insufficiency of lower extremityacuteJanuary 2024 9:20amLower extremity ulcerationacuteJanuary 2024 9:20amSwelling of both lower extremitiesacute September 07, 2024 9:20amChronic venous insufficiency of lower extremityacute September 14, 2024 8:13amLower extremity ulcerationacuteJanuary 2024 8:13amSwelling of both lower extremitiesacuteJanuary 2024 8:13amChronic venous insufficiency of lower extremityacuteFebruary 2024 9:40amLower extremity ulcerationacuteFebruary 2024 9:40amSwelling of both lower extremitiesacuteFebruary 2024 9:40amChronic venous insufficiency of lower extremityacuteMarch 2024 11:43amLower extremity ulcerationacuteMarch 2024 11:43amCerumen impactionnoneactiveMarch 2024 11:43am [facility] Work Phone: 1(508) 233-393011-25-2024 Evaluation note* Diagnosis Onset Date Resolution Status Admit Date Carpal tunnel syndrome of left wrist acuteNovember 2023 11:35amChronic venous insufficiency of lower extremity acuteNovember 2023 11:35amSwelling of both lower extremitiesacuteNovember 2023 11:35amAscending aortic aneurysmacuteJanuary 2024 8:40amASHD (arteriosclerotic heart disease)acuteJanuary 2024 8:40amChronic venous insufficiency of lower extremityacuteJanuary 2024 8:40amGAD (generalized anxiety disorder)acuteJanuary 2024 8:40amHypercholesteremiaacuteJanuary 2024 8:40amHypertensionacuteJanuary 2024 8:40amIrritable bowel syndrome with constipationacuteAuguary 2024 8:40amMedicare annual wellness visit, subsequentacuteAuguary 2024 8:40amPeripheral polyneuropathyacute September 01, 2024 8:40amScreening PSA (prostate specific antigen)acuteJanuary 2024 8:40am [facility] Work Phone: 1(948) 173-675811-25-2024 Evaluation note* Diagnosis Onset Date Resolution Status Admit Date Carpal tunnel syndrome of left wrist acuteNovember 2023 11:35amChronic venous insufficiency of lower extremity acuteNovember 2023 11:35amSwelling of both lower extremitiesacuteNovember 2023 11:35amAscending aortic aneurysmacuteJanuary 2024 8:40amASHD (arteriosclerotic heart disease)acuteJanuary 2024 8:40amChronic venous insufficiency of lower extremityacuteJanuary 2024 8:40amGAD (generalized anxiety disorder)acuteJanuary 2024 8:40amHypercholesteremiaacuteJanuary 2024 8:40amHypertensionacuteJanuary 2024 8:40amIrritable bowel syndrome with constipationacuteJanuary 2024 8:40amMedicare annual wellness visit, subsequentacuteAuguary 2024 8:40amPeripheral polyneuropathyacute September 01, 2024 8:40amScreening PSA (prostate specific antigen)acuteJanuary 2024 8:40amChronic venous insufficiency of lower extremityacuteJanuary 2024 9:20amLower extremity ulcerationacuteJanuary 2024 9:20am Swelling of both lower extremitiesacuteJanuary 2024 9:20amChronic venous insufficiency of lower extremityacuteJanuary 2024 8:13amLower extremity ulcerationacuteJanuary 2024 8:13amSwelling of both lower extremitiesacute September 14, 2024 8:13am [facility] Work Phone: 1(250) 876-661511-19-2024 NoteRight Eye Reliability was borderline. Progression has been stable. Foveal threshold was normal. Findings include normal observations. Left Eye Reliability was good. Progression has been stable. Foveal threshold was normal. Findings include normal observations.[facility] [id number] History of Present illness Narrative* Miguel Angel [...] laser capsulotomy, they are to notify their ultimate hoops trainer promptly if they have a significant change [...] after cessation of Escitalopram. documented in this encounterNortheast Regional Medical [id number] Evaluation note* Encounter Date Diagnosis Assessment Notes Treatment Notes Treatment Clinical Notes Aug, GREYSON (generalized anxiety disorde r) (ICD-10 - F41.1) [facility] Other 01-30-2024 Evaluation note* Encounter Date Diagnosis Assessment Notes Treatment Notes Treatment Clinical Notes Aug, Panic attack (ICD-10 - F41.0) Continue Buspar Healthy diet, avoid stimulants. Keep active, daily exercise. May consider initiating SSRI. Aug,rimary hypertension (ICD-10 - I10)This patient is instructed to consume a healthy, low-fat, low-salt diet. They are also encouraged to continue exercise to achieve/maintain a normal BMI. Patient is instructed on home BP measurements: - rest for 5 minutes w/o talking.- positioned w/ feet on floor and arm supported.- average best 2/3 readings w/ goal < 135/85.- update office w/ homereadings in 2 weeks. Aug,eripheral polyneuropathy (ICD-10 - G62.9)Continue Gabapentin Keep active Fall precautions, inspect feet daily for cuts. Aug,erebral atherosclerosis (ICD-10 - I67.2)Continue primary prevention measures. Reviewed stroke symptoms and instructed to go to ER for suspicious symptoms Aug,MCI (mild cognitive impairment) (ICD-10 - G31.84)Referred to Neurology w/o treatment Referred and scheduled w/ Neuropsychiatric testing [facility] Other 01-12-2024 Evaluation note* Encounter Date Diagnosis [...] reviewed and amended by provider signed below. Aug,rimary hypertension (ICD-10 - I10)This patient is instructed to consume a healthy, low-fat, low-salt diet. They are also encouraged to continue exercise to achieve/maintain a normal BMI. Aug,Elevated cholesterol (ICD-10 - E78.00)Instructed on diet and exercise with continued statin therapy.Discussed the beneficial effects of lo wering cholesterol in reducing the risk for cerebrovascular and cardiovascular disease. Aug,erebral atherosclerosis (ICD-10 - I67.2)Healthy diet and exercise Continue secondary preventive measures. Aug,MCI (mild cognitive impairment) (ICD-10 - G31.84)Completed Neuropsych testing, due to return for interpretation Aug,GAD (generalized anxiety disorder) (ICD-10 - F41.1)Healthy diet and keep active No change in medication. Avoid abrupt d/c of medications, continue w/o interruption Aug,eripheral polyneuropathy (ICD-10 - G62.9)Severe, taking Neurontin qid. Instructed to take 4th dose when symptoms worsen, nighttime is worse time. Aug,Gastroesophageal reflux disease with esophagitis without hemorrhage (ICD-10 - K21.00)Avoid lying flat after eating. Avoid eating 2 hours prior to bedtime. Smaller, frequent meals may be better tolerated.Weight loss if overweight.PPI with any heartburn.Monitor for dysphagia. Aug,Screening PSA (prostate specific antigen) (ICD-10 - Z12.5)Just had labs w/o PSA Symptoms of BPH tolerable Denies dysuria or hematuria PSA next OV [facility] Other [id number] NoteChief Complaint consultation for left inguinal hernia [...] Angely Daniels\Date and Time Signed: 07/28/23 20:29 [id number] Evaluation note * Encounter Date Diagnosis Assessment Notes Treatment Notes Treatment Clinical Notes Jun, COVID-19 (ICD-10 - U07.1) MS changes due to COVID infection vs Paxlovid. Required hospital stay w/ Neuro consultation No acute neurologic findings on MRA/MRI No specific laboratory abnormality to explain behavior Continue supportive care w/ expectant gradual improvement Jun,Metabolic encephalopathy (ICD-10 - G93.41)THis has resolved after d/c home. Normal environment reassuring No further testing recommended Jun,MCI (mild cognitive impairment) (ICD-10 - G31.84)COntinues w/ MCI but very functional and has resumed work/home activities and duties. states he is having no difficulty w/ job/tasks. Jun,rimary hypertension (ICD-10 - I10)This patient is instructed to consume a healthy, low-fat, low-salt diet. They are also encouraged to continue exercise to achieve/maintain a normal BMI. Jun,Elevated cholesterol (ICD-10 - E78.00)Instructed on diet and exercise with continued statin therapy.Discussed the beneficial effects of lo wering cholesterol in reducing the risk for cerebrovascular and cardiovascular disease. Jun,erebral atherosclerosis (ICD-10 - I67.2)Continue primary prevention measures. Control BP, Chol and keep active w/ healthy diet Jun,AD (generalized anxiety disorder) (ICD-10 - F41.1)Discussed change in therapy but recommend awaiting Neuropsych evaluation. COntinue Buspar for now but discussed SSRI Jun,eripheral polyneuropathy (ICD-10 - G62.9)Stable w/ treatment Fall precuations. Discussed tapering dose of Gabapentin [facility] Other 11-02-2023 Evaluation note* Encounter Date Diagnosis Assessment Notes Treatment Notes Treatment Clinical Notes Jun, COVID-19 (ICD-10 - U07.1) [facility] Other 11-01-2023 Evaluation note* Encounter Date Diagnosis Assessment Notes Treatment Notes Treatment Clinical Notes Jun, Indirect left inguinal hernia (I CD-10 - K40.90) Referral to Surgery for urgent evaluation and surgery. Instructed to go to ER for increased pain, abdominal distention or fever Jun,rimary hypertension (ICD-10 - I10)This patient is instructed to consume a healthy, low-fat, low-salt diet. They are also encouraged to continue exercise to achieve/maintain a normal BMI. Jun,eripheral polyneuropathy (ICD-10 - G62.9)Fall precautions, inspect feet daily for cuts. Jun,Elevated cholesterol (ICD-10 - E78.00)Instructed on diet and exercise with continued statin therapy.Discussed the beneficial effects of lo wering cholesterol in reducing the risk for cerebrovascular and cardiovascular disease. Jun,AD (generalized anxiety disorder) (ICD-10 - F41.1)Healthy diet, exercise and keep active Jun,astroesophageal reflux disease with esophagitis without hemorrhage (ICD-10 - K21.00)Diet instructions: Smaller portions, avoid eating and laying flat, avoid eating or drinking prior to bedtime. Weight loss. [facility] Other 10-04-2023 Evaluation note* Encounter Date Diagnosis Assessment Notes Treatment Notes Treatment Clinical Notes May, Primary hypertension (ICD-10 - I 10) This patient is instructed to consume a healthy, low-fat, low-salt diet. They are also encouraged to continue exercise to achieve/maintain a normal BMI. May,Elevated cholesterol (ICD-10 - E78.00)Instructed on diet and exercise with continued statin therapy.Discussed the beneficial effects of lo wering cholesterol in reducing the risk for cerebrovascular and cardiovascular disease. May,onfusion (ICD-10 - R41.0)MoCA Several instances of confusion and unexplained behavior. No obvious etiology: consider vascular dementia, alzheimer's dementia and COVID sequela. Monitor for now w Neuro referral if no improvement MRI completed w/o findings to explain symptoms May,OVID (ICD-10 - U07.1)Finished Paxlovid. Healthy diet, push fluids, keep active. Completed 10 day quarantine May,eripheral polyneuropathy (ICD-10 - G62.9)Fall precautions, inspect feet daily for cuts. Continue Gabapentin May,AD (generalized anxiety disorder) (ICD-10 - F41.1)Healthy diet, exercise and keep active. No change in medications. May,astroesophageal reflux disease with esophagitis without hemorrhage (ICD-10 - K21.00)Diet instructions: Smaller portions, avoid eating and laying flat, avoid eating or drinking prior to bedtime. Weight loss. 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 Monitor for now. Recheck in month, consider Neurology referral [facility] Other 09-25-2023 Evaluation note* Encounter Date Diagnosis Assessment Notes Treatment Notes Treatment Clinical Notes Apr, COVID (ICD-10 - U07.1) [facility] Other 09-07-2023 Evaluation note* Encounter Date Diagnosis Assessment Notes Treatment Notes Treatment Clinical Notes Apr, Right lower quadrant abdominal p ain (ICD-10 - R10.31) [facility] Other 09-05-2023 Evaluation note* Encounter Date Diagnosis Assessment Notes Treatment Notes Treatment Clinical Notes Apr, Right lower quadrant abdominal p ain (ICD-10 - R10.31) Hx of cholelithiasis, left inguinal hernia of unknown contribution to symptoms. Persistent constipation w/ small caliber stool. Associated unintentional weight loss. CT to compare w/ last year: 20lbs weight loss since presious scan Completed Colonoscopy w/o abnormal findings Hx of H. Pylori, successfully treated Apr,Unexplained weight loss (ICD-10 - R63.4)Completed evaluation last year, which included CT abdomen/pelvis, labs, EGD and Colonoscopy. H. Pylori dx and treated w/o any additional findings to explain his symptoms. Recheck CT/labs Refer back to GI for unexplained weight loss. Apr,Non-recurrent unilateral inguinal hernia without obstruction or gangrene (ICD-10 - K40.90)If evaluation negative, would consider referral to Surgeon. Not having symptoms of strangulation but has altered his bowel habits. - narrow caliber BM Apr,rimary hypertension (ICD-10 - I10)This patient is instructed to consume a healthy, low-fat, low-salt diet. They are also encouraged to continue exercise to achieve/maintain a normal BMI. Patient is instructed on home BP measurements: - rest for 5 minutes w/o talking- positioned w/ feeton floor and arm supported- average best 2/3 readings w/ goal < 135/85 Apr,eripheral polyneuropathy (ICD-10 - G62.9)Chronic w/ adverse effect w/ balance and gait. ER visit for pain and weakness w/o findings to explain symptoms. Referred to Neurology w/o additional testing ordered Apr,alculus of gallbladder without cholecystitis without obstruction (ICD-10 - K80.20)Denies symptoms suggestive of cholecystitis or choledocholithiasis. Denies post prandial RUQ/back pain, N/V. Unlikely culprit of weight loss w/ no evidence of biliary obstruction Apr,Irritable bowel syndrome with constipation (ICD-10 - K58.1)Increased anxiety, may be contributing to his symptoms Metamucil tried and failed to improve his symptoms. Suggested Miralax qod CT abd/pelvis w/ consideration for referral back to GI Apr,History of Helicobacter pylori infection (ICD-10 - Z86.19)Treatment regimen completed but resulted in severe abdominal discomfort, dehydration, profound weakness resulting in a trip to ER for IV hydration. [facility] Other 07-31-2023 Evaluation note* Encounter Date Diagnosis Assessment Notes Treatment Notes Treatment Clinical Notes Feb, Primary insomnia (ICD-10 - F51.0 1) [facility] Other 07-18-2023 Evaluation note* Encounter Date Diagnosis Assessment Notes Treatment Notes Treatment Clinical Notes Feb, Peripheral polyneuropathy (ICD-1 0 - G62.9) [facility] Other 07-11-2023 Evaluation note* Encounter Date Diagnosis Assessment Notes Treatment Notes Treatment Clinical Notes Feb, Elevated cholesterol (ICD-10 - E 78.00) Instructed on diet and exercise with continued statin therapy.Discussed the beneficial effects of lowering cholesterol in reducing the risk for cerebrovascular and cardiovascular disease. Feb,rimary hypertension (ICD-10 - I10)This patient is instructed to consume a healthy, low-fat, low-salt diet. They are also encouraged to continue exercise to achieve/maintain a normal BMI. Feb,astroesophageal reflux disease with esophagitis without hemorrhage (ICD-10 - K21.00)Diet instructions: Smaller portions, avoid eating and laying flat, avoid eating or drinking prior to bedtime. Weight loss. Feb,AD (generalized anxiety disorder) (ICD-10 - F41.1)Healthy diet, exercise and keep active. Proper sleep routine. Feb,eripheral polyneuropathy (ICD-10 - G62.9)Inspect feet daily for cuts and ulcers Fall precautions Continue medical therapy Feb,Irritable bowel syndrome without diarrhea (ICD-10 - K58.9)Healthy low fat, high protein diet. Failed Metamucil trial Symptoms intermittent and not severe, no treatment other than diet Feb,Weight loss (ICD-10 - R63.4)Complete lab/XR work up 7 months earlier. Nothing to explain patients weight loss Completed EGD/colonoscopy: polpy, gastritits, H. Pylori Feb,Fatigue, unspecified type (ICD-10 - R53.83)Healtlhy diet, exercise and proper sleep routine [facility] Other 06-06-2023 Evaluation note* Encounter Date Diagnosis Assessment Notes Treatment Notes Treatment Clinical Notes Jan, Peripheral polyneuropathy (ICD-1 0 - G62.9) [facility] Other 04-07-2023 Evaluation note* Encounter Date Diagnosis Assessment Notes Treatment Notes Treatment Clinical Notes Nov, Skin tear of left el bow without complication, initial encounter (ICD-10 - S51.012A) Cleanse w/ soap and water daily. Keep clean an dry. Mupirocin bid and Cephalexin bid x 5 days Nov,rimary hypertension (ICD-10 - I10)This patient is instructed to consume a healthy, low-fat, low-salt diet. They are also encouraged to continue exercise to achieve/maintain a normal BMI. [facility] Other 03-08-2023 Evaluation note* Encounter Date Diagnosis Assessment Notes Treatment Notes Treatment Clinical Notes Oct, Primary hypertension (ICD-10 - I 10) This patient is instructed to consume a healthy, low-fat, low-salt diet. They are also encouraged to continue exercise to achieve/maintain a normal BMI. Oct,Elevated cholesterol (ICD-10 - E78.00)Diet and exercise with continued statin therapy. Oct,astroesophageal reflux disease with esophagitis without hemorrhage (ICD-10 - K21.00)Diet instructions: Smaller portions, avoid eating and laying flat, avoid eating or drinking prior to bedtime. Weight loss. Oct,AD (generalized anxiety disorder) (ICD-10 - F41.1)Healthy diet, keep active, relax/exercise. Increase Buspar to bid and update office in couple weeks SSRI? Oct,eripheral polyneuropathy (ICD-10 - G62.9)Inspect feet daily for cuts. Fall precautions. 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 They are also encouraged to continue exercise to achieve/maintain a normal BMI. Sep,astroesophageal reflux disease with esophagitis without hemorrhage (ICD-10 - K21.00)Diet instructions: Smaller portions, avoid eating and laying flat, avoid eating or drinking prior to bedtime. Weight loss. Sep,AD (generalized anxiety disorder) (ICD-10 - F41.1)Healthy diet and keep active. Buspar daily, discussed SSRI? Sep,eripheral polyneuropathy (ICD-10 - G62.9)Fall precautions. Inspect feet daily for cuts. [facility] Other 01-18-2023 Evaluation note* Encounter Date Diagnosis Assessment Notes Treatment Notes Treatment Clinical Notes Aug, Helicobacter pylori (H. pylori) (ICD-10 - A04.8) [facility] Other 01-11-2023 History and physical note Author Maryjane Christensen [facility] August 27, 2022 10:16amNote Date/TimeJan2022 10:[address] [address] Gastroenterology H&P Signed Patient: Yonatan Patel MR#: [id number] : 1945 Acct:[id number] Age/Sex: 77 / M Adm Date: 3 Loc: Room: Type: [facility] Attending Dr: Alek Oliva MD Copies to: Cisco Mcadams,DO MD Alek Aragon MD~ Date of Service: 08/27/2022 HISTORY & PHYSICAL: Patient's history with special attention to the cardiovascular, pulmonary systems and the current problem was reviewed with the patient immediately prior to the procedure. Present medications and doses reviewed in the EMR. Allergies and pertinent laboratory tests were also re viewedat this time in the EMR. The physical [...] signed by Maryjane Christensen MD> 08/27/22 1016 [facility] Work Phone: 1(846) 748-989701-11-2023 [facility]23 Procedure [facility]01-04-2023 Evaluation note* Encounter Date Diagnosis Assessment Notes Treatment Notes Treatment Clinical Notes Aug, Primary insomnia (ICD-10 - F51.0 1) [facility] Other 08-04-2022 NoteHISTORY AND PHYSICAL EXAMINATION Date:03/19/2022 [...] doing so in the near future. 3. [id number] patient was briefed in the office and [...] and go forward with this elective procedure.[facility] [id number] NoteOPERATIVE NOTE OPERATION DATE: 03/20/2022 SURGEON: Miguel Angel Zahler, D.O. PREOPERATIVE DIAGNOSIS: 1. Nuclear sclerotic cataract [...] ensuring mobility, phacoemulsification was performed in a feekqyy-[id number]-type fashion. After all nuclear material had been [...] and after satisfaction could be achieved, the roller helper and the gonioprism were removed from [...] up the following day for postoperative care.[facility] ShawConsult note Author Berhane Trammell [facility] March 01, 2023 2:24pmNote Date/TimeJuly 2022 2:24pm[place] [address] Neurology Consult Note Signed Patient: Yonatan Patel MR#: [id number] : 1945 Acct:[id number] Age/Sex: 77 / M Adm Date: 3 Loc: Room: [address] [place] [address] Type: ADM INOo Attending Dr: Bobo Villagomez MD Copies to: DO Bobo Adler MD Steven Benedict, MD~ HPI Consult Date: 03/01/23 Hand Former: Berhane Trammell MD Reason for consult: Leg [...] year which was worsened during this time. Thepatient describes the symptoms in his lower extremities as worse thanhis previous baseline. The patient was unable to ambulate due to pain. The patient states that he has had an episode of severe pain in the left foot while driving a prolonged period which was alleviated by position change. The christiano maría has a history of fall while in the shower due to numbness in the legs. Thepatient states that he is able to ambulate currently with a walker but has difficulty due to pain. The patient deniesany significant weakness. The patient denies any vision [...] Selena Reid M.D.03/01/2023 9:15 AM Dictation Location: [place] [address] 03/01/23 07:02 IMPRESSION: ATROPHY AND CHRONIC MICROVASCULAR CHANGES. NO DEFINITE ACUTE INTRACRANIAL ABNORMALITY. FOLLOW-UP IS RECOMMENDED, SYMPTOMS WARRANT. COMMENT: Preliminary report was provided at 0730 hours. Impression dictated by: Selena Reid M.D.03/01/2023 8:13 AM Dictation Location: [place] [address] Therapy Recommendations Therapy Recommendations: OT Recommendations OT [...] entrapment mononeuropathy. The patient states that his s ymptoms have improved somewhat since hospitalization but is still unable to ambulate independently without significant pain. I am concerned about a intraspinal canal lesion in the lumbar spine contributing to bilateral lower extremity neuropathic symptoms. In addition, the patient has increased refl exesat the knee for reported long-term polyneuropathy making the consideration of a cervical myelopathy playing a component of the patient's symptoms a consideration. -I will obtain an MRI of the lumbar spine to assess for an intraspinal canal lesion contributing tothe patient's acute onset of lower extremity pain [...] by physical therapy and Occupational Therapy for therapyand rehab needs -I counseled the patient on fall precautions at length -I will continue to follow the patient clinically and make further recommendations based upon the patient's clinical course. Code(s): M79.604 - Pain in right leg; M79.605 - Pain in left leg Status: Acute Documented By: Berhane Trammell MD 03/01/23 1416 Signed By: <Electronically signed by MD Berhane Trammell> 03/01/23 1424 [facility] Work Phone: Discharge summary Author Angely Lee [facility] March 02, 2023 5:49pmNote Date/TimeJuly 2022 5:43pmD[place] [id number] Discharge Summary Signed Patient: Yonatan Patel MR#: [id number] : 1945 Acct:[id number] Age/Sex: 77 / M Adm Date: 3 Loc: 3T Room: [address] [place] [address]: Angely Lee DO Copies to: [...] This prompted his presentation to the ER wh ere his work-up was largely benign appearing with some mild hypertension but otherwise stable vitalsigns and normal labs. Initial head CT showed [...] signed by Angely Lee DO> 03/02/23 1749 [facility] Work Phone: evaluation + Plan note No data available for this section General [facility] [place] Evaluation + Plan note Future Appointments Appointment Date:09/02/2023 02:40:00 PM Scheduled Provider:Angely GAGE MD Location:[facility] Appointment Type: Post Op 15 General [facility] [place] Evalukweer noteNo assessment information available [facility] Work Phone: evaluation noteNo InformationNort [employer] Other Evalugckqv note* Diagnosis Onset Date Resolution Status Bilateral leg pain acuteNumbness of left handacute [facility] Work Phone: Evaluation note* Diagnosis Onset Date Resolution Status Adverse drug effect acuteAltered mental statusacuteCOVIDacuteHypertensionacuteLab test positive for detection of COVID-19 virusacuteNeuropathyacute [facility] Work Phone: Evaluation note* Diagnosis Onset Date Resolution Status GREYSON (generalized anxiety disorder) acuteGERD (gastroesophageal reflux disease)acuteHypercholesteremiaacute HypertensionacutePeripheral polyneuropathyacutePrimary insomniaacute [facility] Work Phone: Evaluation note* Diagnosis Onset Date Resolution Status GREYSON (generalized anxiety disorder) acuteGERD (gastroesophageal reflux disease)acuteHypercholesteremiaacute HypertensionacutePeripheral polyneuropathyacutePrimary insomniaacuteGAD (generalized anxiety disorder)acuteHypertensionacuteIrritable bowel syndrome with constipationacuteAcute prostatitisnoneactiveASHD (arteriosclerotic heart disease)acuteGAD (generalized anxiety disorder)acuteHypercholesteremiaacute HypertensionacuteIrritable bowel syndrome with constipationacutePeripheral polyneuropathyacute [facility] Work Phone: Evaluation note* Diagnosis Onset Date Resolution Status GREYSON (generalized anxiety disorder) acuteHypertensionacuteIrritable bowel syndrome with constipationacuteAcute prostatitisnoneactiveASHD (arteriosclerotic heart disease)acuteGAD (generalized anxiety disorder)acuteHypercholesteremiaacuteHypertensionacuteIrritable bowel syndrome with constipationacutePeripheral polyneuropathyacute [facility] Work Phone: Evaluation note* Diagnosis Onset Date Resolution Status Ascending aortic aneurysm acuteASHD (arteriosclerotic heart disease)acuteGAD (generalized anxiety disorder)acuteHypercholesteremiaacuteHypertensionacuteIrritable bowel syndrome with constipationacutePeripheral polyneuropathyacuteAbdominal painacuteBenign prostatic hyperplasia with lower urinary tract symptomsacutePolyuriaacute [facility] Work Phone: Evaluation note* Diagnosis Onset Date Resolution Status Ascending aortic aneurysm acuteASHD (arteriosclerotic heart disease)acuteGAD (generalized anxiety disorder)acuteHypercholesteremiaacuteHypertensionacuteIrritable bowel syndrome with constipationacutePeripheral polyneuropathyacuteAbdominal painacuteBenign prostatic hyperplasia with lower urinary tract symptomsacutePolyuriaacuteCOVID acute [facility] Work Phone: Evaluation note* Diagnosis Onset Date Resolution Status Abdominal pain acuteBenign prostatic hyperplasia with lower urinary tract symptomsacutePolyuria acuteCOVIDacuteAscending aortic aneurysmacuteASHD (arteriosclerotic heart disease)acuteGAD (generalized anxiety disorder)acuteHypercholesteremiaacute HypertensionacuteIrritable bowel syndrome with constipationacutePeripheral polyneuropathyacute [facility] Work Phone: Evaluation note* Diagnosis Primary [...] physical note Author Bobo Villagomez [facility] March 01, 2023 9:50amNote Date/TimeJuly 2022 9:50[place] [address] Hospitalist H&P Signed Patient: Yonatan Patel MR#: [id number] : 1945 Acct:[id number] Age/Sex: 77 / M Adm Date: 3 Loc: Room: [address] [place] [address] Type: ADM INOo Attending Dr: Bobo Villagomez [...] up this morning with his legs feeling numb,but also says his legs hurt and feels [...] no focal weakness. He states history of smokingin the past but quit about35 years ago. Following with cardiology once a year for HTN and on Metopro lol. Takes aspirin every 2-3 days as per his PCP instructions. Has hx of peripheral neuropathy on Gabapentin. In ER, Stroke standby was called. Patient was last seen well last night before going to bed he feltfine, symptoms started when he woke up this [...] as mentioned elsewhere in the documentation [facility] Medical History Cataract Hypercholesteremia Hypertension Surgical [...] equal b/l 5/5. Decreased sensation in both LEfrom knee down. no facial asymmetry, tongue at [...] % (Auto) 23.7 % (.) 03/01/23 07:06 [place] % (Auto) 8.3 % (.) 03/01/23 07:06 Eos % (Auto) 1.4 % (.) 03/01/23 07:06 Baso % (Auto) 0.7 % (.) 03/01/23 07:06 Nucleat RBC Rel Count 0.3 /100 WBC (0-0.5) 03/01/23 07:06 Neut # (Auto) 3.5 x10E3/uL (1.8-7.7) 03/01/23 07:06 Lymph # (Auto) 1.3 x10E3/uL (1.00-4.8) 03/01/23 07:06 [place] # (Auto) 0.4 x10E3/uL (0.0-0.8) 03/01/23 07:06 [...] pH 7.5 (5.0-9.0) 03/01/23 07:49 Ur Specific [place] 1.014 (1.001-1.030) 03/01/23 07:49 Urine Protein Negative [...] signed by Bobo Villagomez MD> 03/01/23 0950 [facility] Work Phone: History general Narrative - Reported* Type Description Date Medical History hypercholesterolemia Medical HistoryhypertensionMedical HistoryanxietyMedical HistoryEsophageal refluxMedical HistoryglaucomaMedical HistoryneuropathySurgical Historyheart catheterizationSurgical Historyshoulder surgerySurgical Historycolonoscopy with polyp resection08/27/21Surgical HistoryEGD1Hospitalization Historysee above [employer] Other History general Narrative - Reported* Type Description Date Medical History hypercholesterolemia Medical HistoryhypertensionMedical HistoryanxietyMedical HistoryEsophageal refluxMedical HistoryglaucomaMedical HistoryneuropathySurgical Historyheart catheterizationSurgical Historyshoulder surgerySurgical Historycolonoscopy with polyp resection08/27/22Surgical HistoryEG08/27/22Hospitalization Historysee above [employer] Other Hisfuat general Narrative - Reported* Type Description Date Medical History hypercholesterolemia Medical HistoryhypertensionMedical HistoryanxietyMedical HistoryEsophageal refluxMedical HistoryglaucomaMedical HistoryneuropathySurgical Historyheart catheterizationSurgical Historyshoulder surgerySurgical Historycolonoscopy with polyp resection08/27/22Surgical HistoryEG08/27/22Surgical HistoryLeft Inguinal Hernia Repair08/2023Hospitalization Historysee above [employer] Other Hospital Discharge instructions Additional Instructions DISCHARGE [...] follow up with PCP - Office number [phone]. [facility] Work Phone: Hospital Discharge instructions No data available for this section General Surgery [place] Progress note Author Berhane Trammell [facility] March 02, 2023 3:27pmNote Date/TimeJuly 2022 3:23[place] [address] Neurology Progress Note Signed Patient: Yonatan Patel MR#: [id number] : 1945 Acct:[id number] Age/Sex: 77 / M Adm Date: 3 Loc: Room: [address] [place] [address] Type: ADM INOo Attending Dr: Angely Lee [...] has an idiopathic neuropathy. In addition, thepatient hashad 1 year history of intermittent left upper extremity numbness which was worsened over the past 24 hours likely secondary to peripheral nerve process involving the left upper extremity such as cervical radiculopathy, brachial plexopathy, or entrapment mononeuropathy. The patient states that his symptoms have improved significantly over the past 24 hours and are 95%back to baseline. The patient has been able [...] assess for an intraspinal canal lesion contributing tothe patient's acute onset of lower extremity pain [...] by physical therapy and Occupational Therapy for therapyand rehab needs -I counseled the patient on fall precautions at length -I will continue to follow the patient clinically and make further recommendations based upon the patient's clinical course. Code(s): M79.604 - Pain in right leg; M79.605 - Pain in left leg Status: Acute Documented By: Berhane Trammell MD 03/02/23 1521 Signed By: <Electronically signed by MD Berhane Trammell> 03/02/23 1527 [facility] Work Phone: Progress note No data available for this section General Surgery [place] Reason for referral (narrative)* Reason Referral for left in direct inguinal hernia Diagnosis 1 Indirect left inguin al hernia (K40.90) Referral Organization [facility] Referring Provider First Name Cisco Referring Provider Last Name Abbe Referring Provider Specialty Internal Me dicine Referred Organization [facility] Referred Provider Angely Gage Referred Address [address] [facility],[place], [place],[address] Referred Provider Specialty Surgery Referral Priority Urgent General Notes Mr. Patel has a left indirect inguinal hernia w/ intermittent episodes of increased pain, abdominal distention and nausea. He has experienced 3-4 of these episodes in the past 2 weeks, with increased intensity and duration of pain. A recent episode was associated w/ a transient fever and chills. [employer] Other Reason for referral (narrative)No reason for referral information availableT[facility]car[facility]as [facility] Work Phone: Reason for visit NarrativeERROR/Gastro referral issue [employer] Other Chief Complaint and Reason for Visit [...] [facility] Documentation 1 month bowel problemsReason for VisitGAD (generalized anxiety disorder) GERD (gastroesophageal reflux disease) Hypercholesteremia Hypertension Peripheral polyneuropathy Primary insomnia Chief Complaint [facility] Documentation 1 month bowel problems 3 month follow upReason for VisitGAD (generalized anxiety disorder) GERD (gastroesophageal reflux disease) Hypercholesteremia Hypertension Peripheral polyneuropathy Primary insomnia GREYSON (generalized anxiety disorder) Hypertension Irritable bowel syndrome with constipation Acute prostatitis ASHD (arteriosclerotic heart disease) GREYSON (generalized anxiety disorder) Hypercholesteremia Hypertension Irritable bowel syndrome with constipation Peripheral polyneuropathy Chief Complaint bowel problems 3 month follow up 3 MONTH FOLLOW UPReason for VisitGAD (generalized anxiety disorder) Hypertension Irritable bowel syndrome with constipation Acute prostatitis ASHD (arteriosclerotic heart disease) GREYSON (generalized anxiety disorder) Hypercholesteremia Hypertension Irritable bowel syndrome with constipation Peripheral polyneuropathy Chief Complaint 3 MONTH FOLLOW UP stomach painReason for VisitAscending aortic aneurysm ASHD (arteriosclerotic heart disease) GREYSON (generalized anxiety disorder) Hypercholesteremia Hypertension Irritable bowel syndrome with constipation Peripheral polyneuropathy Abdominal pain Benign prostatic hyperplasia with lower urinary tract symptoms Polyuria Chief Complaint 3 MONTH FOLLOW UP stomach pain cough,congestionReason for VisitAscending aortic aneurysm ASHD (arteriosclerotic heart disease) GREYSON (generalized anxiety disorder) Hypercholesteremia Hypertension Irritable bowel syndrome with constipation Peripheral polyneuropathy Abdominal pain Benign prostatic hyperplasia with lower urinary tract symptoms Polyuria COVID Chief Complaint stomach pain cough,congestion 3 month f/uReason for VisitAbdominal pain Benign prostatic hyperplasia with lower urinary [...] 01, 2024 8:40am ASHD (arteriosclerotic heart disease) [facility] 2024 8:40am Chronic venous insufficiency of [...] 2024 11:35am Swelling of both lower extremities [facility] 2023 11:35am Ascending aortic aneurysm September 01, 2024 8:40am ASHD (arteriosclerotic heart disease) [facility] 2024 8:40am Chronic venous insufficiency of [...] 9:20am Swelling of both lower extremities [facility] 2024 9:20am Chronic venous insufficiency of lower ex tremity September 14, 2024 8:13am Lower extremity ulceration September 14, 2024 8:13am Swelling of both lower extremities [facility] 2024 8:13am Chief Complaint Admit Date [...] 01, 2024 8:40am ASHD (arteriosclerotic heart disease) [facility] 2024 8:40am Chronic venous insufficiency of lower ex tremity September 01, 2024 8:40am GREYSON (generalized anxiety disorder) [facility] 2024 8:40am Hypercholesteremia September 01, 2024 8 [...] 2024 9:20am [facility] both lower [facility] Chronic venous insufficiency of lower ex tremity September 14, 2024 8:13am Lower extremity ulceration September 14, 2024 8:13am Swelling of both lower extremities [facility] 8:13am Chronic venous insufficiency of [...] 01, 2024 8:40am ASHD (arteriosclerotic heart disease) [facility] 2024 8:40am Chronic venous insufficiency of lower ex tremity September 01, 2024 8:40am GREYSON (generalized anxiety disorder) [facility] 2024 8:40am Hypercholesteremia September 01, 2024 [...] Dysfunction of right eustachian tube Noam e 12th, 2025 8:30am Hypertension January 26, 2025 8:30 am [...] Date/T oli father Myocardial infarction Unknown family memberMyocardial infarctionUnknownNot SpecifiedMalignant neoplasmUnknown brotherMalignant neoplasmUnknown Relationship Condition Age at Onset Recorded Date/T oli father Myocardial infarction Unknown family memberMyocardial infarctionUnknownNot SpecifiedMalignant neoplasmUnknown brotherMalignant neoplasmUnknownMyocardial infarctionUnknownDiabetes mellitus UnknownCerebrovascular accident (CVA)Unknown Relationship Condition Age at Onset Recorded Date/T oli father Myocardial infarction Unknown family memberMyocardial infarctionUnknownNot SpecifiedMalignant neoplasmUnknown brotherMalignant neoplasmUnknownMyocardial infarctionUnknownDiabetes mellitus UnknownCerebrovascular accident (CVA)UnknownfatherDeceasedUnknownfamily member DeceasedUnknownNot SpecifiedDeceasedUnknown Relationship Condition Age at Onset Recorded Date/T oli father Myocardial infarction Unknown family memberMyocardial infarctionUnknownmotherMalignant neoplasmUnknownbrother Malignant neoplasmUnknownMyocardial infarctionUnknownDiabetes mellitusUnknown Cerebrovascular accident (CVA)UnknownfatherDeceasedUnknownfamily memberDeceased UnknownmotherDeceasedUnknown Advance Directives Advance Directive Response Recorded Date/ [...] Care Provider Active Start: February 12, 2025 KATHI Pozo-CAttending ProviderActiveStart: February 12, 2025 Team Status: Active Member Role Status Dates Cisco Mcadams DO Primary Care Provider Active Start: February 13, 2025 Gabriella Kenney CMAAttending ProviderActiveStart: February 13, 2025 Team Status: Inactive Member Role Status Dates Cisco Mcadams DO Primary Care Provider Active Start: February 14, 2025 End: February 14lilian Mcadams DOAttending ProviderActiveStart: February 14, 2025 End: February 14, 2025 Team Status: Active Member Role Status Dates Cisco Mcadams DO Primary Care Provider Active Start: February 21, 2025 Anjelica Long MDAttending ProviderActiveStart: February 21, 2025 Team Status: Active Member Role Status Dates Cisco Mcadams DO Primary Care Provider Active Start: February 28, 2025 Omid Lockhart DOAttending ProviderActiveStart: February 28, 2025 Team Status: Inactive Member Role Status Dates Cisco Mcadams DO Primary Care Provider Active Start: May 05, 2025 End: May 05lilian Mcadams DOAttending ProviderActiveStart: May 05, 2025 End: May 05, 2025 Team Status: Active Member Role Status Dates Cisco Ball , DO Primary Care Provider Active Team [...] Active Start: March 19, 2024 End: March 19jose angel Munoz PAMELANAtadriakevin ProviderActiveStart: March 19, 2024 End: March 19, 2024 [...] Status: Inactive Member Role Status Adriana Mcadams , DO Attending Provider Active Sta rt: September 15, 2023 End: September 15, 2023 Team Status: Active Member Role Status Adriana Mcadams DO Primary Care Provider Active Start: October 05, 2023 JAMA HectorAAtadriakevin ProviderActiveStart: October 05, 2023 Team Status: Inactive Member [...] Adriana Mcadams DO Primary Care Provider Active Rosenda Franks ProviderActiveDeric Smith Provider, Attending ProviderActiveBerhane Trammell MDOther ProviderActive Team Status: Inactive Member Role Status Dates Alek Oliva MD Attending Provider Active Ace Adler Care ProviderActive Team Status: Inactive Member Role Status Dates Cisco Ball , DO Primary Care Provider Active Simone Aragon ProviderActive Team Status: Active Member Role Status Dates Cisco Mcadams DO Primary Care Provider Active Brady Kevin Jr ProviderActiveDeric Hoff Provider, Attending ProviderActive Team Status: Active Member Role Status Dates Cisco Mcadams DO Primary Care Provide r, Attending Provider Active Start: November 16, 2023 Team Status: Inactive Member Role Status Dates Cisco Mcadams DO Primary Care Provide r, Attending Provider Active Start: November 27, 2023 End: November 27, 2023Team MemberRelationshipSpecialtyStart DateEnd Date Cisco Mcadams MD [address] [place] [phone] PCP - GeneralInternal Medicine04/09/23Team MemberRelationshipSpecialtyStart Date End Date Cisco Mcadams MD [address] [place] [phone] PCP - GeneralInternal Medicine04/09/23Team MemberRelationshipSpecialtyStart Date End Date Cisco Mcadams MD [address] [place] [phone] PCP - GeneralInternal Medicine04/09/23Team MemberRelationshipSpecialtyStart Date End Date Cisco Mcadams MD [address] [place] [phone] PCP - GeneralInternal Medicine04/09/23 Team Status: Inactive Member Role Status Dates [...] Start: December 28, 2024 End: December 28, 2024Team MemberRelationshipSpecialtyStart DateEnd Date Cisco Mcadams DO [address] [place] [phone] PCP - GeneralInternal Medicine04/09/23Team MemberRelationshipSpecialtyStart Date End Date Cisco Mcadams DO [address] [place] [phone] PCP - GeneralInternal Medicine04/09/23Team MemberRelationshipSpecialtyStart Date End Date Cisco Mcadams DO [address] [place] [phone] PCP - GeneralInternal Medicine04/09/23 Team Status: Inactive Member Role Status Dates [...] Start: January 26, 2025 End: January 26, 2025Team MemberRelationshipSpecialtyStart DateEnd Date Cisco Mcadasm DO [address] [place] [phone] PCP - GeneralInternal Medicine04/09/23 Team Status: Inactive Member Role Status Adriana Mcadams DO Primary Care Provider Active Start: December 12, 2024 End: December 12lilian Mcadams DOAttending ProviderActiveStart: December 12, 2024 End: December 12, 2024 Team Status: Inactive Member Role Status Adriana Mcadams DO Primary Care Provider Active Start: December 28, 2024 End: December 28lilian Mcadams DOAttending ProviderActiveStart: December 28, 2024 End: December 28, 2024 Team Status: Inactive Member Role Status Adriana Mcadams DO Primary Care Provider Active Start: January 03, 2025 End: January 03lilian Mcadams DOAttending ProviderActiveStart: January 03, 2025 End: January 03, 2025 Team Status: Active Member Role Status Adriana Mcadams DO Primary Care Provider Active Start: January 06, 2025 Enriqueta Adler ProviderActiveStart: January 06, 2025 Team Status: Inactive Member Role Status Adriana Mcadams DO Primary Care Provider Active Start: January 26, 2025 End: January 26lilian Mcadams DOAttending ProviderActiveStart: January 26, 2025 End: January 26, 2025 Team Status: Active Member Role Status Adriana Mcadams DO Primary Care Provider Active Start: February 12, 2025 KATHI Pozo-CAttending ProviderActiveStart: February 12, 2025 Team Status: Active Member Role Status Adriana Mcadams DO Primary Care Provider Active Start: February 13, 2025 Gabriella Pablito , CMAAttending ProviderActiveStart: February 13, 2025 Team Status: Inactive Member Role Status Dates Cisco Mcadams DO Primary Care Provider Active Start: February 14, 2025 End: February 14lilian Mcadams DOAttending ProviderActiveStart: February 14, 2025 End: February 14, 2025Team MemberRelationshipSpecialtyStart DateEnd Date Cisco Mcadams DO [address] [place] [phone] PCP - GeneralInternal Medicine04/09/23 Team Status: Active Member Role Status Dates Cisco Mcadams DO Primary Care Provider Active Start: February 21, 2025 Anjelica Long MDAttending ProviderActiveStart: February 21, 2025 Team Status: Active Member Role Status Dates Cisco Mcadams DO Primary Care Provider Active Start: February 28, 2025 Omid Lockhart DOAttending ProviderActiveStart: February 28, 2025 Team Status: Inactive Member Role Status Dates Cisco Mcadams DO Primary Care Provider Active Start: May 05, 2025 End: May 05lilian Mcadams DOAttending ProviderActiveStart: May 05, 2025 End: May 05, 2025 (unrecognized sect ion and content) No Status Records FoundNo Status Records FoundNo Status Records FoundNo Status Records FoundNo Status Records FoundNo Status Records Found INFORMATION SOURCE (unrecogn ized section and content) DATE CREATED AUTHOR 09/16/2022 [facility] DATE CREATED AUTHOR AUTHOR'S ORGANIZ ATION 03/05/2023 [facility] DATE CREATED AUTHOR AUTHOR'S ORGANIZ ATION 06/25/2023 [facility] DATE CREATED AUTHOR AUTHOR'S ORGANIZ ATION 08/25/2023 [facility] DATE CREATED AUTHOR AUTHOR'S ORGANIZ ATION 01/13/2025 [facility] DATE CREATED AUTHOR AUTHOR'S ORGANIZ ATION 04/04/2025 [facility] REASON FOR VISIT (unrecogniz ed section and content) ReasonCommentsMed RefillReasonCommentsFollow-upGlaucomaReasonOnset DateComments Med Cfpalm76/12/2024ReasonCommentsGlaucomaReasonOnset DateCommentsMed Refill 01/12/2025ReasonOnset DateCommentsMed Dlurkh0703/31/2025 Goals (unrecognized section and content) Goals may [...] BE BASED ON THE PRIMARY CLINICAL RECORDS. [facility] [employer] provides no warranty or guarantee of the accuracy or completeness of information in this document.
--- OUTSIDE RECORDS SUMMARY | 2025-07-19 07:21 | XMS_ITS | Clinical Summary ---
Author Organization [facility] Address [address] [place] [address] Care Team Providers Care Dental Biller Name Role Phone Cisco Nicholson DO Primary Care Provider [phone] Allergies Active AllergyReactionsCriticalityNoted VcesGjzkateoWxwqerclsrojLnem81/13/2024 Other Reaction(s): Confusion HhpjxgowjLnav93/13/2024 Other Reaction(s): Confusion Medications MedicationSigDispense QuantityRefillsLast FilledStart DateEnd DateStatus aspirin 81 MG chewable tablet Chew 1 tablet every day by oral route.Active atorvastatin (Lipitor) 80 MG tablet Take 1 tablet by mouth in the morning.08/04/2022ctive busPIRone (Buspar) 15 MG tablet Take 1 tablet by mouth in the morning.Active gabapentin (Neurontin) 300 MG capsule Take 1 capsule 4 times a day by oral route for 90 days.08/04/2022ctive metoprolol tartrate (Lopressor) 25 MG tablet TAKE ONE-HALF TABLET BY MOUTH TWICE DAILY10/20/2022ctive temazepam (Restoril) 15 MG capsule 1 PO q HSTEMAZEPAM 15 MG CAPS11/02/2022ctive brimonidine (AlphaGAN P) 0.2 % ophthalmic solution every 12 (twelve) hoursActive Ferrous Sulfate (IRON PO) Take 1 tablet by mouth in the morning.Active Paxlovid, 300/100, 20 x 150 MG & 10 x 100MG tablet therapy pack TAKE 3 TABLETS BY MOUTH TWICE A DAY FOR 5 DAYS06/18/2023ctive Simbrinza 1-0.2 % suspension Indications:Primary open angle glaucoma (POAG) of both eyes, moderate stage INSTILL 1 DROP INTO BOTH EYES IN THE MORNING AND BEFORE BEDTIME 24 mL 5Active latanoprost (Xalatan) 0.005 % ophthalmic solution Indications:Primary open angle glaucoma (POAG) of both eyes, moderate stage Administer 1 drop into both eyes at bedtime 7.5 mL Expired Active Problems ProblemNoted DateDiagnosed AujgAcjzoxhv15/24/2024rimary open angle glaucoma (POAG) of both eyes, moderate stage04/10/2023ry eyes04/10/2023CO (posterior capsular opacification), uncbxogdc76/25/2023lepharitis of upper and lower eyelids of both eyes04/10/2023 Social History Tobacco UseTypesPacks/DayYears UsedDateSmoking Tobacco: FormerCigarettes Smokeless Tobacco: Never Tobacco Cessation:Counseling Given: Not Answered Sex and Gender InformationValueDate RecordedSex Assigned at BirthNot on file Legal UgaPwhi5112/15/2022 8:32 PM EDTGender IdentityNot on fileSexual Orientation Not on file Last Filed Vital Signs Vital SignReadingTime TakenCommentsBlood Nrwmeemq860/80008/29/2019 12:00 PM EST Pulse--Temperature--Respiratory Rate--Oxygen Saturation--Inhaled Oxygen Concentration--Diapgc94.7 kg (200 lb)08/30/2020 12:00 PM KLGFprwjw600 cm (6' 2 ) 08/30/2020 12:00 PM ESTBody Mass Index25.68008/30/2020 12:00 PM EST Plan of Treatment Health MaintenanceDue DateLast DoneCommentsPneumococcal Vaccine: 65+ Years (2 of 2 - PCV)COVID-19 Vaccine (2024- season)2025 08/23/2024, 11/16/2021, 05/18/2021, Additional history existsInfluenza Vaccine (#1)/, 06/05/2022, 06/29/2019, Additional history exists Insurance Care Teams Team MemberRelationshipSpecialtyStart DateEnd Date Cisco Nicholson DO [address] [place] [id number] PCP - GeneralInternal Medicine04/09/23
--- OUTSIDE RECORDS SUMMARY | 2025-07-19 07:21 | XMS_ITS | Clinical Summary ---
Author Organization [facility] Address [address] [place] [address] Care Team Providers Care Vice Chancellor Name Role Phone Unavailable Primary Care Provider Unavailabl e Social History Tobacco UseTypesPacks/DayYears UsedDateSmoking Tobacco: Never AssessedSex and Gender InformationValueDate RecordedSex Assigned at BirthNot on fileLegal Sex Male07/18/2012 10:11 AM ESTGender IdentityNot on fileSexual OrientationNot on file Plan of Treatment Health MaintenanceDue DateLast DoneCommentsAnxiety Tylgqojzt28/06/1961Depression Eldycblnj61/06/1961DTaP,Tdap,Td Vaccine (1 - Tdap)2Diabetes Screening 1988Pneumococcal Vaccine: 50+ (1 of 1 - PCV)1993Shingrix Vaccine (1 of 2)1993RSV Vaccine (1 - 1-dose 75+ series)2018Advance Directive Myjpbuzcls38/01/2025ovid-19 Vaccine ( - 2024-26 season)2025Influenza Vaccine (#1)2025 Insurance
--- OUTSIDE RECORDS SUMMARY | 2025-07-19 07:21 | XMS_ITS | Clinical Summary ---
Author Organization [facility] Address [address] [place] [address] Care Team Providers Care Field Support Specialist Name Role Phone Cisco Nicholson DO Primary Care Provider [phone] Allergies No known active allergies Medications MedicationSigDispense QuantityRefillsLast FilledStart DateEnd DateStatus aspirin 81 mg chewable tablet Chew 81 mg every other day.Active busPIRone (Buspar) 15 mg tablet buspirone 15 mg tabletActive gabapentin (Neurontin) 300 mg capsule Take 300 mg by mouth every 6 (six) hours.08/04/2022ctive temazepam (Restoril) 15 mg capsule 11/02/2022ctive metoprolol tartrate (Lopressor) 25 mg tablet Indications:Essential hypertensionTAKE ONE-HALF TABLET BY MOUTH TWICE DAILY 90 tablet ctive Additional Information Patient taking differently: 0.5 tablet oral 2 times daily, Reported on 02/23/2025 escitalopram (Lexapro) 5 mg tablet 15 mg.12/08/2023ctive atorvastatin (Lipitor) 80 mg tablet Indications:Coronary artery disease due to lipid rich plaqueTAKE 1 TABLET BY MOUTH ONCE DAILY 90 tablet 5Active atorvastatin (Lipitor) 80 mg tablet Indications:Coronary artery disease due to lipid rich plaqueTAKE 1 TABLET BY MOUTH ONCE DAILY 90 tablet Discontinued Active Problems ProblemNoted DateDiagnosed GonmSctwefzt71/24/2024cute zutswjawqdyubo15/29/2024 12/14/2023denomatous polyp of colondverse drug effect ltered mental ocuuqr46SHD (arteriosclerotic heart disease)ilateral leg pain12/14/2023 12/14/2023MI 23.0-23.9, adulterebral atherosclerosis holelithiasis without drtgclsfpms64OVID Emphysema/COPDGastro-esophageal reflux disease with qyzgljbdqmv19GERD (gastroesophageal reflux disease)GlaucomaIrritable bowel syndrome with cirmfctcccdk91Lab test positive for detection of COVID-19 virusMCI (mild cognitive impairment) with memory loss Numbness of left handeripheral kwexveigupkljy27rimary uktsxmcw02educible left inguinal eplorc38Viral Tttvrztfvp98lepharitis of upper and lower eyelids of both eyesry eyesCO (posterior capsular opacification), hzjfxvphn78rimary open angle glaucoma (POAG) of both eyes, moderate stageLoss of slfyjnicemfvl55/06/2017 Essential bzuuxikczkcc55/01/1960Generalized anxiety lcacejyo26/01/1960Mixed jacvgzhmdzkfqw89/01/1960Peripheral dgwyragnt80/01/1960 Encounters DateTypeDepartmentCare VzptSfqgeivvqie40/17/2025[facility] Cardiology [address] [place] [address] Betsy Chavez MD Coronary artery disease due to lipid rich plaquefrom Last 3 Months Family History Medical HistoryRelationNameCommentsHeart attackBrotherHeart attackFatherRelation NameStatusCommentsBrotherDeceasedFatherDeceasedMotherDeceasedSisterAlive Social History Tobacco UseTypesPacks/DayYears UsedDateSmoking Tobacco: FormerCigarettes Smokeless Tobacco: Never Tobacco Cessation:Counseling Given: Not Answered Alcohol UseStandard Drinks/WeekCommentsYes0 (1 standard drink = 0.6 oz pure alcohol)occasionalUT Safety & EnvironmentAnswerDate RecordedFear of Current or Ex-PartnerNot on file10/08/2023Emotionally AbusedNot on file10/08/2023hysically AbusedNot on file10/08/2023Sexually AbusedNot on file10/08/2023hysically or Sexually AbusedNot on file10/08/2023Sex and Gender InformationValueDate Recorded Sex Assigned at BirthNot on fileLegal WtkUhud0802/12/2022 11:55 PM EDTGender IdentityNot on fileSexual OrientationNot on file Last Filed Vital Signs Vital SignReadingTime TakenCommentsBlood Rztsgbcu359/7007 3:05 PM EDT Fjnxm7631/10/2025 3:05 PM EDTTemperature--Respiratory Rate--Oxygen Xgmusoisvi12% 02/23/2025 3:05 PM EDTInhaled Oxygen Concentration--Djswku65.7 kg (178 lb) 02/23/2025 3:05 PM JBZZczqeo326 cm (6' 2 )02/23/2025 3:05 PM EDTBody Mass Index 22.85002/23/2025 3:05 PM EDT Plan of Treatment Health MaintenanceDue DateLast DoneCommentsMedicare Annual Wellness (AWV) 3Depression Axynekrmi12/06/1955Adult Fpkxtic2603/22/1965Fall Risk Axprxwewf89/06/2008Pneumococcal Vaccine: 50+ Years (2 of 2 - PCV)08/17/2013 08/17/2012Zoster Vaccines (2 of 2)/1COVID-19 Vaccine ( - 2024- season)501/02/2025, 07/04/2022, 11/16/2021, Additional history existsInfluenza Vaccine (#1)509/, 06/05/2022, 06/29/2019, Additional history existsHIB VaccinesAged OutNo longer eligible based on patient's age to complete this topicHPV VaccinesAged OutNo longer eligible based on patient's age to complete this topicIPV VaccinesAged OutNo longer eligible based on patient's age to complete this topicMeningococcal B VaccineAged OutNo longer eligible based on patient's age to complete this topicMeningococcal VaccineAged OutNo longer eligible based on patient's age to complete this topic Rotavirus VaccinesAged OutNo longer eligible based on patient's age to complete this topic Insurance Care Teams Team MemberRelationshipSpecialtyStart DateEnd Date Cisco Nicholson DO [address] [place] [address] [facility] - [facility]11/25/22
[2025-07-19 08:06] LABS: Hematocrit 41.6 % (42.0-54.0); Hemoglobin 13.9 g/dL (14.0-18.0); Immature Granulocytes Abs Auto 0.01 10^3/uL (0.00-0.03); Immature Granulocytes Pct Auto 0.2 % (0.0-0.5); Lymphocytes Absolute Auto 1.3 10^3/uL (1.2-3.8); Mean Corpuscular HGB Conc 33.4 g/dL (29.9-35.2); Mean Corpuscular Hemoglobin 30.2 pg (25.9-34.0); Mean Corpuscular Volume 90.2 fL (80.0-94.0); Platelet Count 175 10^3/uL (150-450); Red Blood Count 4.61 10^6/uL (4.70-6.10); White Blood Count 4.8 10^3/uL (4.0-11.0)
[2025-07-19 08:38] LABS: Alanine Aminotransferase 60 U/L (16-63); Albumin Globulin Ratio 1.4; Albumin Level 3.7 g/dL (3.4-5.0); Alkaline Phosphatase 71 U/L (46-116); Anion Gap 11.0; Aspartate Amino Transferase 47 U/L (15-37); Blood Urea Nitrogen 14.0 mg/dL (7.0-18.0); Calcium 9.1 mg/dL (8.5-10.1); Carbon Dioxide 29.2 mmol/L (21.0-32.0); Chloride 106 mmol/L (98-107); Estimated GFR (African America >60 (>=60 mL/min/1.73m^2); Estimated GFR (Non-African Ame >60 (>=60 mL/min/1.73m^2); Globulin 2.7 g/dL; Glucose 111 mg/dL (74-106); Potassium 4.2 mmol/L (3.5-5.1); Sodium 142 mmol/L (136-145); Thyroid Stimulating Hormone 2.162 uIU/mL (0.358-3.740); Total Protein 6.4 g/dL (6.4-8.2)
== END 2025-07-19 07:16 | disposition home or self-care (01) ==
LOC: LAB 07:18
PROVIDERS: PCP Internal Medicine; Visit Provider Internal Medicine
DX: I25.10 Atherosclerotic heart disease of native coronary artery without angina pectoris (principal); I10 Essential (primary) hypertension; R53.83 Other fatigue
CPT/HCPCS: 36415; 80053; 84443; 85025

== ENCOUNTER 2025-08-01 09:27 | Outpatient (OUT) | payer MEDICARE, SELFPAY ==
--- OUTSIDE RECORDS SUMMARY | 2025-08-01 09:30 | XMS_ITS | Clinical Summary ---
Author Organization [facility] Address [address] [address] Care Team Providers Care Display Trimmer Name Role Phone Cisco Nicholson DO Primary Care Provider [phone] Allergies No known active allergies Medications MedicationSigDispense [...] TABLET BY MOUTH ONCE DAILY 90 tablet tive atorvastatin (Lipitor) 80 mg tablet Indications:Coronary artery disease due to lipid rich plaqueTAKE 1 TABLET BY MOUTH ONCE DAILY 90 tablet Discontinued Active Problems ProblemNoted DateDiagnosed AcpxNaawshgf57/24/2024cute srmitnmdgildko44/29/2024 12/14/2023denomatous polyp of colondverse drug effect ltered mental eimcpt42SHD (arteriosclerotic heart disease)ilateral leg pain12/14/2023 12/14/2023MI 23.0-23.9, adulterebral atherosclerosis holelithiasis without luuszsjpjkd85OVID Emphysema/COPDGastro-esophageal reflux disease with qupiagsvikr63GERD (gastroesophageal reflux disease)GlaucomaIrritable bowel syndrome with dgeqeenhinul74Lab test positive for detection of COVID-19 virusMCI (mild cognitive impairment) with memory loss Numbness of left handeripheral tcggylrynhoyld64rimary phrwxhwh12educible left inguinal ipmwav85Viral itrpgxey56 Jiuqdjwvio00lepharitis of upper and lower eyelids of both eyesry eyesCO (posterior capsular opacification), wxuiaxcgv23rimary open angle glaucoma (POAG) of both eyes, moderate stageLoss of dpcnnouelbbpk91/06/2017 Essential bzesxmsikzuc03/01/1960Generalized anxiety bsdlewob37/01/1960Mixed rumnybrgrpxvhv14/01/1960Peripheral dzszjmoey75/01/1960 Encounters DateTypeDepartmentCare YiulVdwnprnqxfp38/17/20[facility] [address], [address] [place] [address] Betsy Chavez MD Coronary artery disease due [...] Recorded Sex Assigned at BirthNot on fileLegal XsrGemt8502/12/2022 11:55 PM EDTGender IdentityNot on fileSexual OrientationNot on file Last Filed Vital Signs Vital SignReadingTime TakenCommentsBlood Bcnytgbw378/7007 3:05 PM EDT Fzbvd3990/10/2025 3:05 PM EDTTemperature--Respiratory Rate--Oxygen Eibefzlrcc58% 02/23/2025 3:05 PM EDTInhaled Oxygen Concentration--Nxjqmh75.7 kg (178 lb) 02/23/2025 3:05 PM KFMMlhcfv761 cm (6' 2 )02/23/2025 3:05 PM EDTBody Mass Index 22.85002/23/2025 3:05 PM EDT Plan of Treatment Health MaintenanceDue DateLast DoneCommentsMedicare Annual Wellness (AWV) 3Depression Fhkarcskv64/06/1955Adult Bneekts3603/22/1965Fall Risk Suwbrudvm11/06/2008Pneumococcal Vaccine: 50+ Years (2 of 2 - PCV)08/17/2013 08/17/2012Zoster Vaccines (2 of 2)/1COVID-19 Vaccine ( - 2024-26 season)/02/2025, 07/04/2022, 11/16/2021, Additional history existsInfluenza Vaccine (#1)509/, [...] DateEnd Date Cisco Nicholson DO [address] [place] [address] [facility] - [facility]11/25/22
--- OUTSIDE RECORDS SUMMARY | 2025-08-01 09:30 | XMS_ITS | Clinical Summary ---
Author Organization [employer] [facility] Address [id number] [address] [place] [address] Care Team Providers Care Melter Supervisor Name Role Phone Cisco Nicholson DO Primary Care Provider [phone] Allergies No known active allergies Medications MedicationSigDispense [...] 1 drop 2 (two) times a day.Active htocdavr-qjut-YA-calcium &mins (THERAGRAN-M) 9 mg iron-400 mcg tablet [...] of Binge DrinkingNot on file09/26/2019ChildcareAnswerDate RecordedChildcareUnknown 09/26/2019EmploymentAnswerDate QnvgybpbJwcprsnkgvOgocytf79/10/2020Purpose - Life AnswerDate RecordedPurpose and direction in nbdySluftck17/11/2021Sex and Gender InformationValueDate RecordedSex Assigned at BirthNot on fileLegal SexMale 09/26/2019 12:16 PM ESTGender IdentityNot on fileSexual OrientationNot on file Last Filed Vital Signs Vital SignReadingTime TakenCommentsBlood Rytpdrxc517/8110/05/2019 2:40 PM EST Yfunm798510/05/2019 2:45 PM KCZLlpomquvtmv23.2 ??C (97.2 ??F)10/05/2019 1:10 PM ESTRespiratory Nska916510/05/2019 2:45 PM ESTOxygen Jzsrswxcyh14%10/05/2019 2:45 PM ESTInhaled Oxygen Concentration--Kcxnkg65.8 kg (220 lb)10/05/2019 10:27 AM UMFHrbric453 cm (6' 2.02 )10/05/2019 10:27 AM ESTBody Mass Index28.23010/05/2019 10:27 AM EST Plan of Treatment Health MaintenanceDue DateLast DoneCommentsDepression Axtkkawiz35/06/1955Tobacco Efkzjjpca62/06/1955DTaP,Tdap and Td Vaccines (1 - Tdap)1962Zoster (Shingles) Vaccine (1 of 2)1993Fall Risk Hmfuxmzor49/06/2008RSV ( or age 60+ yrs) (1 - 1-dose 75+ series)2018Influenza Lobueuh1704/17/2025 Medical Devices ImplantedTypeAreaManufacturerDevice IdentifierShelf Expiration DateModel / Serial / LotAnch Sut 4.75mm 2 Healicoil - [id number] - [id number] Implanted:Qty: 1 on 10/05/2019 by [facility]erto [facility]kin [facility]: Shoulder[employer] & [id number] / [id number] / [id number] Sut 4.75mm 2 Healicoil - [id number] - [id number] Implanted:Qty: 1 on 10/05/2019 by Heriberto Boykin DO at [facility]: Shoulder[employer] & [id number] / [id number] / [id number] Sut 4.75mm 2 Regenesorb - [id number] - [id number] Implanted:Qty: 1 on 10/05/2019 by Heriberto Boykin DO at [facility]: Shoulder[employer] & [id number] / [id number] / [id number] Sut 5.5mm Multifix S Ult Rpl [id number] - [id number] - [id number] Implanted:Qty: 1 on 10/05/2019 by [facility]: Shoulder[employer] & [id number] / [id number] / [id number] Sut 5.5mm Multifix S Ult Rpl [id number] - [id number] - [id number] Implanted:Qty: 1 on 10/05/2019 by Heriberto Boykin DO at [facility]: Should[employer] & [id number] / [id number] / [id number] Sut 5.5mm Multifix S Ult Rpl [id number] - [id number] - [id number] Implanted:Qty: 1 on 10/05/2019 by Heriberto Boykin DO at [facility]: [employer]er[employer] & [id number] / [id number] / [id number] Insurance Care Teams Team MemberRelationshipSpecialtyStart DateEnd Date Cisco Nicholson DO [address] [place] [address] PCP - GeneralInternal Medicine10/04/19
--- OUTSIDE RECORDS SUMMARY | 2025-08-01 09:30 | XMS_ITS | Clinical Summary ---
Author Organization [facility] Address [address] [place] [address] Phone Care Team Providers Care Cooking Instructor Name Role Phone Cisco Nicholson DO Primary Care Provider [phone] Social History Tobacco UseTypesPacks/DayYears UsedDateSmoking Tobacco: Never AssessedSex and Gender InformationValueDate RecordedSex Assigned at BirthNot on fileLegal Sex Male03/04/2023 8:48 AM EDTGender IdentityNot on fileSexual OrientationNot on file Plan of Treatment Health MaintenanceDue DateLast DoneCommentsLipid Panel1943Yearly Adult Thaveftq1943DTaP/Tdap/Td Vaccines (1 - Tdap)1965Pneumococcal Vaccine (1 of [...] Team MemberRelationshipSpecialtyStart DateEnd Date Cisco Nicholson DO [facility] - Lrkkfph03/04/23
--- OUTSIDE RECORDS SUMMARY | 2025-08-01 09:30 | XMS_ITS | Clinical Summary ---
Author Organization [facility] Address [address] [place] [address] Care Team Providers Care Puff Iron Operator Name Role Phone Unavailable Primary Care Provider Unavailabl e Social History Tobacco UseTypesPacks/DayYears UsedDateSmoking Tobacco: Never AssessedSex and Gender InformationValueDate RecordedSex Assigned at BirthNot on fileLegal Sex Male07/18/2012 10:11 AM ESTGender IdentityNot on fileSexual OrientationNot on file Plan of Treatment Health MaintenanceDue DateLast DoneCommentsAnxiety Jsnvyoexn28/06/1961Depression Ehblyfduz42/06/1961DTaP,Tdap,Td Vaccine (1 - Tdap)2Diabetes Screening 1988Pneumococcal Vaccine: 50+ (1 of 1 - PCV)1993Shingrix Vaccine (1 of 2)1993RSV Vaccine (1 - 1-dose 75+ series)2018Advance Directive Rtnctcgbhy99/01/2025ovid-19 Vaccine ( - 2024-26 season)2025Influenza Vaccine (#1)2025 Insurance
--- OUTSIDE RECORDS SUMMARY | 2025-08-01 09:30 | XMS_ITS | Clinical Summary ---
Author Organization [facility] Address [address] [place] [address] Care Team Providers Care Palletiser Operator Name Role Phone Cisco Nicholson DO Primary Care Provider [phone] Allergies Active AllergyReactionsCriticalityNoted JbafMaflakpjSwzspsmjexrvPtys84/13/2024 Other Reaction(s): Confusion NjppycfdyJqvt42/13/2024 Other Reaction(s): Confusion Medications MedicationSigDispense QuantityRefillsLast FilledStart [...] MORNING AND BEFORE BEDTIME 24 mL 5Active Active Problems ProblemNoted DateDiagnosed SxxyPocawhmo18/24/2024Primary open angle glaucoma (POAG) of both eyes, moderate stage04/10/2023ry eyes04/10/2023CO (posterior capsular opacification), eanvutdsp02/25/2023lepharitis of upper and lower eyelids of both eyes04/10/2023 Social History Tobacco UseTypesPacks/DayYears UsedDateSmoking Tobacco: FormerCigarettes Smokeless Tobacco: Never Tobacco Cessation:Counseling Given: Not Answered Sex and Gender InformationValueDate RecordedSex Assigned at BirthNot on file Legal CtqErqq7812/15/2022 8:32 PM EDTGender IdentityNot on fileSexual Orientation Not on file Last Filed Vital Signs Vital SignReadingTime TakenCommentsBlood Ofetrxre144/80008/29/2019 12:00 PM EST Pulse--Temperature--Respiratory Rate--Oxygen Saturation--Inhaled Oxygen Concentration--Jxovdk68.7 kg (200 lb)08/30/2020 12:00 PM IJMWqjyge728 cm (6' 2 ) 08/30/2020 12:00 PM ESTBody Mass Index25.68008/30/2020 12:00 PM EST Plan of Treatment Health MaintenanceDue DateLast DoneCommentsPneumococcal Vaccine: 65+ Years (2 of 2 - PCV)COVID-19 Vaccine ( season)2025 08/23/2024, 11/16/2021, 05/18/2021, Additional history existsInfluenza Vaccine (#1)509/, 06/05/2022, 06/29/2019, Additional history exists Insurance Care Teams Team MemberRelationshipSpecialtyStart DateEnd Date Cisco Nicholson DO [address] [place] [address] PCP - GeneralInternal Medicine04/09/23
--- NOTE | 2025-08-01 09:34 | US_ITS ---
The [address] [address] Patient Name: JOSE PATEL MRN: [id number] date: 1945 Sex: M Assigned Patient Location: US Current Patient Location: US Accession/Order Number: [id number] Exam Date: 08/01/2025 09:35 Report Date: 08/01/2025 12:24 At the request of: TOAN MCADAMS DO Procedure: US right upper quadrant LIMITED RIGHT UPPER QUADRANT ABDOMINAL ULTRASOUND CLINICAL HISTORY: transaminasemia COMPARISON: CT 01/06/2025 The gallbladder is physiologically distended. There are echogenic shadowing gallstones. No wall thickening or pericholecystic fluid is seen. No intra- or extrahepatic biliary dilatation is evident. The common duct measures 2 mm. There is subtle increased echogenicity of hepatic parenchyma and mild fatty infiltration is not excluded. No focal intrahepatic masses are seen. There is appropriate hepatopetal flow within the main portal vein. The pancreas shows no significant sonographic abnormality. Evaluation of the right kidney reveals no hydronephrosis or fluid within Warren's pouch. There is an upper pole renal cyst measuring 17 x 20 x 17 mm. US/US right upper quadrant IMPRESSION: CHOLELITHIASIS. EQUIVOCAL MINOR FATTY INFILTRATION OF THE LIVER. RIGHT RENAL CYST. Impression dictated by: Selena Reid M.D. 08/01/2025 12:24 PM Dictation Location: [place] [address] Electronically authenticated by: [id number] Y Date: 08/01/2025 12:24
== END 2025-08-01 09:28 | disposition home or self-care (01) ==
LOC: US 09:27
PROVIDERS: PCP Internal Medicine; Visit Provider Internal Medicine
DX: R74.01 Elevation of levels of liver transaminase levels (principal); K76.0 Fatty (change of) liver, not elsewhere classified
CPT/HCPCS: 76705

== ENCOUNTER 2025-08-02 09:05 | Outpatient (OUT) | payer MEDICARE, SELFPAY ==
--- OUTSIDE RECORDS SUMMARY | 2024-10-20 04:20 | XMS_ITS ---
Author Organization [facility] [place] Address [address] [place] [address] Care Team Providers Care Senior Software Engineer Name Role Phone Cisco Nicholson DO Primary Care Provider Deniz Villa [phone] Allergies No Known Allergies REASON FOR VISIT Nail Care Medications Medication SIG (Take, Route, Frequency, Duration) Notes Start Date End Date Status busPIRone HCl 15 MG 1 tablet Orally Twice a day 02/11/2024ctiveGabapentin 300 MG1 capsule Orally 4 daily02/11/2024ctive Metoprolol Tartrate 25 MG1/2 tab Orally Twice a day02/11/2024ctiveMultivitamin -1 tablet Orally Once a day02/11/2024ctiveTemazepam 15 MG1 capsule at bedtime as needed Orally Once a day02/11/2024ctiveAspirin 81 81 MG1 tablet Orally Once a day02/11/2024ctiveAtorvastatin Calcium 80 MG1 tablet Orally Once a day 02/11/2024ctiveBrimonidine Tartrate-Timolol 0.2-0.5 %1 drop into affected eye Ophthalmic Twice a day02/11/2024ctive Social History Tobacco Use: Social History Observation Description Date Details (start date - stop date) Former Smoker NA - NA Tobacco Control (Standard) Question Answer Notes Tobacco use: Former smoker Vital Signs Weight 180 lbs 10/20/2024 Height 74 in 10/20/2024 Temperature 97.4 degrees Fahrenheit 10/21/19 25 Heart Rate 66 /min 10/20/2024 BMI 23.11 kg/m2 10/20/2024 Oximetry 97 % 10/20/2024 Encounters Encounter Location Date Provider Diagnosis [facility] (PODIATRY) [address] [place] [address] [place] [address] 10/20/2024 Deniz Aguilera Onycholysis L60.1 and Altered mental status R41.82 Assessments Encounter Date Diagnosis (ICD Code) Assessment Notes Treatment Notes Treatment Clinical Notes Section Notes 10/20/2024 Onycholysis (ICD-10 - L60.1) 10/20/2024ltered mental status (ICD-10 - R41.82) Plan Of Treatment Next Appt Details Follow Up: 3 Months, Reason: Progress Notes * Yonatan PETERSON ADOB:1945 (80 yo M)Acc No.[id number]:10/20/2024 UNLOCKED PROGRESS NOTE Follow Up Patient: Yonatan FARFAN :?Deniz Aguilera DPM, MSDOB:1945???Age: 79 Y???Sex:MaleDate:10/20/2024Phone:[phone]:[address] [place], [place] [id number]:Katherin Montemayor In:08:46 AM ESTCheck Out:09:24 AM EST Subjective: * Chief Complaints: * 1 . Nail Care. * HPI: ???General:?Patient in office today for routine toenail care. Nails elongated and thickened 1-5 on right foot and 2-5 on left foot. Left great toenail has been removed previously.?Patient has care completeddue to his nondiabetic neuropathy. He complains today of heel pain due to lack of padding and has scars to his right lower leg from healed blistered areas. Discussed using of compression stockings and elevating legs while sitting. Provided single layer tubigrips for him to try as well as education on daily skin care using moisturizer daily to dry skin to help prevent cracking and new ulcerations.Patient requested custom orthotics. Provided name of DPMs that do custom inserts. Also given product information on heel cups. * Medical History: S kin cancer, High blood pressure, High cholesterol, Neuropathy. * Surgical History: i nguinal hernia 2023 , inguinal hernia 1972 , left rotaor cuff 2013 , right rotator [id number] , skin cancer removal nose 2022 . * Hospitalization/Major Diagno stic Procedure: s ee above . * Family History: F ather: diagnosed with Heart Disease. M other: diagnosed with Cancer. B rother(s): diagnosed with Diabetes. * Social History: ???Tobacco Use:?Tobacco Control (Standard)?Tobacco use:?Former smoker * Medications: T aking Aspirin 81(Aspirin) 81 MG Tablet Delayed Release 1 tablet Orally Once a day , Taking Atorvastatin Calcium 80 MG Tablet 1 tablet Orally Once a day , Taking Brimonidine Tartrate-Timolol 0.2-0.5 % Solution 1 drop into affected eye Ophthalmic Twice a day , Taking busPIRone HCl 15 MG Tablet 1 tablet Orally Twice a day , Taking Gabapentin 300 MG Capsule 1 capsule Orally 4 daily , Taking Metoprolol Tartrate 25 MG Tablet 1/2 tab Orally Twice a day , Taking Multivitamin(Multiple Vitamin) - Tablet 1 tablet Orally Once a day , Taking Temazepam 15 MG Capsule 1 capsule at bedtime as needed Orally Once a day , Medication List reviewed and reconciled with the patient * Allergies: N .K.D.A. Objective: * Vitals: W t:180lbs, Ht: 74 in, Temp:97.4F, HR:66/min, BMI:23.11Index, Pain scale:11-10, Oxygen sat %:97%, Ht-cm: 187.96 cm, Wt-k.65 kg. Assessment: * Assessment: 1.?Onycholysis - L60.1 (Primary)???2.?Altered mental status - R41.82? ? Plan: * Treatment: * Follow Up: 3 Months * * Electronic signature of Deniz Aguilera DPM on 08/02/2025 at 09:11 AM ESTSign off status: PendingVisit Status:?CHK (Check Out) * Provider: Judith Aguilera DPM, MS Date: 0 10/20/2024 Generated for Printing/Faxing/eTransmitting on:?08/02/2025 09:11 AM EST History and Physical Notes * HPI (History of Present Illness) CategorySub-CategoryDetailNotesCategory NotesGeneralPatient in office today for routine toenail care. Nails elongated and thickened 1-5 on right foot and 2-5 on left foot. Left great toenail has been removed previously. Patient has care completed due to his nondiabetic neuropathy. He complains today of heel pain due to lack of padding and has scars to his right lower leg from healed blistered areas. Discussed using of compression stockings and elevating legs while sitting. Provided single layer tubigrips for him to try as well as education on daily skin care using moisturizer daily to dry skin to help prevent cracking and new ulcerations. Patient requested custom orthotics. Provided name of DPMs that do custom inserts. Also given product information on heel cups.
--- NOTE | 2025-08-02 09:01 | PM.WCHP ---
Wound Care H&P: HPI History of Present Illness Narrative: Mr. Peterson is a pleasant 80-year-old gentleman with history of peripheral neuropathy who presents for routine toenail care. He states his toenails are painful. He also has complaints of temperature changes (feeling cold) and paresthesias in his feet, worse at night. [facility] Medical History (Updated 08/02/25 @ 09:02 by KATHI Jiménez) Insomnia ?G47.00 - Insomnia, unspecified (ICD-10) Neuropathy ?G62.9 - Polyneuropathy, unspecified (ICD-10) Irritable bowel syndrome with constipation ?K58.1 - Irritable bowel syndrome with constipation (ICD-10) GERD (gastroesophageal reflux disease) ?K21.9 - Gastro-esophageal reflux disease without esophagitis (ICD-10) Encephalopathy ?G93.40 - Encephalopathy, unspecified (ICD-10) Cholelithiases ?K80.20 - Calculus of gallbladder without cholecystitis without obstruction (ICD-10) Colon polyp ?K63.5 - Polyp of colon (ICD-10) Glaucoma ?H40.9 - Unspecified glaucoma (ICD-10) Anxiety ?F41.9 - Anxiety disorder, unspecified (ICD-10) Rib fracture (06/2022) ?S22.39XA - Fracture of one rib, unspecified side, initial encounter for closed fracture (ICD-10) Pneumothorax (06/2022) ?J93.9 - Pneumothorax, unspecified (ICD-10) Constipation ?K59.00 - Constipation, unspecified (ICD-10) Inguinal hernia ?K40.90 - Unilateral inguinal hernia, without obstruction or gangrene, not specified as recurrent (ICD-10) Hypertension ?I10 - Essential (primary) hypertension (ICD-10) High cholesterol ?E78.00 - Pure hypercholesterolemia, unspecified (ICD-10) COVID-19 (06/17/23) ?U07.1 - COVID-19 (ICD-10) Surgical History (Updated 08/19/23 @ 09:21 by Anahi Tellez) H/O eye surgery ?Z98.890 - Other specified postprocedural states (ICD-10) History of arthroscopy of shoulder ?Z98.890 - Other specified postprocedural states (ICD-10) History of arthroscopy of shoulder ?Z98.890 - Other specified postprocedural states (ICD-10) History of cardiac catheterization ?Z98.890 - Other specified postprocedural states (ICD-10) History of arthroscopy of shoulder ?Z98.890 - Other specified postprocedural states (ICD-10) History of esophagogastroduodenoscopy (EGD) ?Z98.890 - Other specified postprocedural states (ICD-10) History of colonoscopy ?Z98.890 - Other specified postprocedural states (ICD-10) History of hernia repair ?Z98.890 - Other specified postprocedural states (ICD-10) ?Z87.19 - Personal history of other diseases of the digestive system (ICD-10) Family History (Updated 08/07/23 @ 10:22 by Ingrid Coronel NP) Other Family history of brain cancer Family history of gastric cancer Family history of myocardial infarction Social History (Updated 08/07/23 @ 10:10 by Ingrid Coronel NP) Within the past year, how often did you have a drink containing alcohol: never Score interpretation: A score less than 4 is consistent with normal alcohol consumption. Smoking status: Never smoker Non-prescribed substance use: denies use Previous occupational history: [employer] Highest level of school completed/degree received: high school graduate Little interest or pleasure in doing things: not at all Feeling down, depressed, or hopeless: not at all Meds Home Medications and Allergies Home Medications ?Medication ?Instructions ?Recorded ?Confirmed ?Type atorvastatin 80 mg tablet 80 mg PO DAILY 06/19/23 02/28/25 History buspirone 15 mg tablet 15 mg PO BID 06/19/23 02/28/25 History gabapentin 300 mg capsule 300 mg PO QID 06/19/23 02/28/25 History metoprolol tartrate 25 mg tablet 12.5 mg PO Q12H 06/19/23 02/28/25 History temazepam 15 mg capsule 15 mg PO DAILY 06/19/23 02/28/25 History aspirin 81 mg tablet,delayed 81 mg PO DAILY 08/07/23 02/28/25 History release (Adult Aspirin Regimen) brinzolamide 1 %-brimonidine 0.2 % drp ophthalmic (eye) BID 08/07/23 History eye drops,suspension (Simbrinza) latanoprost 0.005 % eye drops drp ophthalmic (eye) QPM 08/07/23 History multivitamin (Daily Multi-Vitamin 1 tab PO DAILY 08/07/23 02/28/25 History tablet) ondansetron 4 mg disintegrating 4 mg PO Q6H PRN nausea and 08/23/23 02/28/25 Rx tablet vomiting #20 tabs sertraline 50 mg tablet 50 mg PO DAILY 02/21/25 02/28/25 History Allergies Allergy/AdvReac Type Severity Reaction Status Date / Time nirmatrelvir (From Paxlovid) Allergy mental Verified 02/28/25 12:00 status change ritonavir (From Paxlovid) Allergy mental Verified 02/28/25 12:00 status change Exam Narrative: Exam Narrative: Derm: Toenails are thickened, elongated, mycotic, and painful.? No evidence of paronychia.? Skin is diffusely dry, thin, and atrophic.?Hallux toenail on the left is absent.Hyperkeratotic tissue noted on the medial right forefoot. Vascular: DP and PT pulses are 2/4 bilaterally.? Capillary refill is less than 3 seconds to all toes. Digital hair is absent bilaterally. Neuro: Vibratory sensation is absent bilaterally.? Achilles deep tendon reflex is absent bilaterally.? Protective sensation was tested with a monofilament and is present in 2/5 areas tested on the right and 0/5 areas tested on the left.? Musculoskeletal: No gross deformity.? Strength 5/5 in all planes bilaterally Assessment and Plan Assessment and Plan (1) Tinea unguium: (2) Skin callus: (3) Other specified polyneuropathies: Plan The patient's 9 remaining toenails were sharply debrided without incident. Small callus on the right foot was pared with a #15 blade to his satisfaction. He noted pain relief post procedure. Follow-up in 3 months for routine nail care. Acute Procedures Podiatry Nail Debridement Class B Findings Advanced trophic changes as evidenced by any three of the following: decreased hair growth, nail changes (thickening) and skin texture (thin or shiny) Class C Findings Claudication: No Temperature changes: Yes Edema: No Nail debridement paresthesia (abnormal spontaneous sensations in the feet): Yes Burning: No Qualifies If: Qualifiers If:: A patient qualifies for nail debridement if they have: 1 class A finding (Q7) 2 class B findings (Q8) OR 1 class B & 2 class C findings in addition to a primary condition (Q9) Nail Procedure Nail Procedure Time out: Yes Nail procedure: other ((1) Toenail debridement 9 toenails, (2) callus paring right foot x 1) Number of affected nails: 9 Location (toes): left and right Procedure successful: Yes Patient tolerated procedure: well and no complications Complications: other (tiny skin abrasion just proximal to the right 2nd toenail) Additional comments: All toenails with the exception of the left hallux nail which is absent were sharply debrided with nail nippers to the patient's satisfaction. Small callus on the right medial forefoot was pared with a #15 blade without incident. He noted pain relief post procedure.
--- OUTSIDE RECORDS SUMMARY | 2025-08-02 09:12 | XMS_ITS | Clinical Summary ---
Author Organization [facility] Address [address] [place] [address] Care Team Providers Care Compressor Technician Name Role Phone Cisco Nicholson DO Primary Care Provider [phone] Allergies No known active allergies Medications MedicationSigDispense [...] 90 tablet Discontinued Active Problems ProblemNoted DateDiagnosed GbodYutukqds08/24/2024cute uaqncqppjzgnup73/29/2024 12/14/2023denomatous polyp of colondverse drug effect ltered mental rkvxzg15SHD (arteriosclerotic heart disease)ilateral leg pain12/14/2023 12/14/2023MI 23.0-23.9, adulterebral atherosclerosis holelithiasis without jmuwdabpnkl31OVID Emphysema/COPDGastro-esophageal reflux disease with rlwfbmsemqy14GERD (gastroesophageal reflux disease)GlaucomaIrritable bowel syndrome with nzgaxevrjnec30Lab test positive for detection of COVID-19 virusMCI (mild cognitive impairment) with memory loss Numbness of left handeripheral huwycnzxxlkxdf30rimary iiawpvee79educible left inguinal qjmtom80Viral wwtxajay90 Jizmtvdmhr27lepharitis of upper and lower eyelids of both eyesry eyesCO (posterior capsular opacification), aezcmgvpa66rimary open angle glaucoma (POAG) of both eyes, moderate stageLoss of hhpohmrmnyofh36/06/2017 Essential txxncphepysa26/01/1960Generalized anxiety xgflykkn91/01/1960Mixed rztbmaayxzrrkb93/01/1960Peripheral revvrhymr87/01/1960 Encounters DateTypeDepartmentCare CwuiZvbvqotohkl95/17/2025[facility] [address], [address] [place] [address] Betsy Chavez MD Coronary artery disease due [...] Recorded Sex Assigned at BirthNot on fileLegal LibKyqf2102/12/2022 11:55 PM EDTGender IdentityNot on fileSexual OrientationNot on file Last Filed Vital Signs Vital SignReadingTime TakenCommentsBlood Icwdofvi429/7007 3:05 PM EDT Bgyms2130/10/2025 3:05 PM EDTTemperature--Respiratory Rate--Oxygen Ovdkzxxqsy73% 02/23/2025 3:05 PM EDTInhaled Oxygen Concentration--Pcatvo84.7 kg (178 lb) 02/23/2025 3:05 PM SSGVvvgqq764 cm (6' 2 )02/23/2025 3:05 PM EDTBody Mass Index 22.85002/23/2025 3:05 PM EDT Plan of Treatment Health MaintenanceDue DateLast DoneCommentsMedicare Annual Wellness (AWV) 3Depression Srbukcwwa11/06/1955Adult Wxzwxqg8803/22/1965Fall Risk Nxfwqfejk99/06/2008Pneumococcal Vaccine: 50+ Years (2 of 2 - [...] DateEnd Date Cisco Nicholson DO [address] [place] [address] [facility] - [facility]11/25/22
--- OUTSIDE RECORDS SUMMARY | 2025-08-02 09:12 | XMS_ITS | Clinical Summary ---
Author Organization [facility] Address [address] [place] [address] Care Team Providers Care Hotbed Transfer Operator Name Role Phone Unavailable Primary Care Provider Unavailabl e Social History Tobacco UseTypesPacks/DayYears UsedDateSmoking Tobacco: Never AssessedSex and Gender InformationValueDate RecordedSex Assigned at BirthNot on fileLegal Sex Male07/18/2012 10:11 AM ESTGender IdentityNot on fileSexual OrientationNot on file Plan of Treatment Health MaintenanceDue DateLast DoneCommentsAnxiety Opxmvxdnw56/06/1961Depression Oaeztddgp18/06/1961DTaP,Tdap,Td Vaccine (1 - Tdap)2Diabetes Screening 1988Pneumococcal Vaccine: 50+ (1 of 1 - PCV)1993Shingrix Vaccine (1 of 2)1993RSV Vaccine (1 - 1-dose 75+ series)2018Advance Directive Igyeqhobxe36/01/2025ovid-19 Vaccine ( - 2024-26 season)2025Influenza Vaccine (#1)2025 Insurance
--- OUTSIDE RECORDS SUMMARY | 2025-08-02 09:12 | XMS_ITS | Clinical Summary ---
Author Organization [facility] Address [address] [place] [address] Care Team Providers Care Industrial Equipment Wirer Name Role Phone Cisco Nicholson DO Primary Care Provider [phone] Allergies Active AllergyReactionsCriticalityNoted GtlrVysmxmczWtqejgpzzrbtSvtq48/13/2024 Other Reaction(s): Confusion EkbyxlkukPews37/13/2024 Other Reaction(s): Confusion Medications MedicationSigDispense QuantityRefillsLast FilledStart [...] 24 mL 5Active Active Problems ProblemNoted DateDiagnosed YsxmWhtpmpsl17/24/2024Primary open angle glaucoma (POAG) of both eyes, moderate stage04/10/2023ry eyes04/10/2023CO (posterior capsular opacification), mgrrkybcd69/25/2023lepharitis of upper and lower eyelids of both eyes04/10/2023 Social History Tobacco UseTypesPacks/DayYears UsedDateSmoking Tobacco: FormerCigarettes Smokeless Tobacco: Never Tobacco Cessation:Counseling Given: Not Answered Sex and Gender InformationValueDate RecordedSex Assigned at BirthNot on file Legal PwyZpjy2512/15/2022 8:32 PM EDTGender IdentityNot on fileSexual Orientation Not on file Last Filed Vital Signs Vital SignReadingTime TakenCommentsBlood Qdprgyoi957/80008/29/2019 12:00 PM EST Pulse--Temperature--Respiratory Rate--Oxygen Saturation--Inhaled Oxygen Concentration--Rlulfw70.7 kg (200 lb)08/30/2020 12:00 PM ESMEtdpkn319 cm (6' 2 ) 08/30/2020 12:00 PM ESTBody Mass Index25.68008/30/2020 12:00 PM EST Plan of Treatment Health MaintenanceDue DateLast DoneCommentsPneumococcal Vaccine: 65+ Years (2 of 2 - PCV)COVID-19 Vaccine ( season)2025 08/23/2024, 07/04/2022, 11/16/2021, Additional history existsInfluenza Vaccine (#1)/, 06/05/2022, 06/29/2019, Additional history exists Insurance Care Teams Team MemberRelationshipSpecialtyStart DateEnd Date Cisco Nicholson DO [address] [place] [id number] PCP - GeneralInternal Medicine04/09/23
--- OUTSIDE RECORDS SUMMARY | 2025-08-02 09:12 | XMS_ITS | Patient Health Record ---
Author Organization [facility] [place] Address [address] [place] [address] Care Team Providers Care Health Care Recruiter Name Role Phone Cisco Nicholson DO Primary Care Provider Deniz Villa [phone] Allergies No Known Allergies Reason For Referral No Information Medications Medication SIG (Take, Route, Frequency, Duration) Notes Start Date End Date Status Aspirin 81 81 MG 1 tablet Orally Once a day 02/11/2024ctiveAtorvastatin Calcium 80 MG1 tablet Orally Once a day02/11/2024 ActiveBrimonidine Tartrate-Timolol 0.2-0.5 %1 drop into affected eye Ophthalmic Twice a day02/11/2024ctivebusPIRone HCl 15 MG1 tablet Orally Twice a day 02/11/2024ctiveGabapentin 300 MG1 capsule Orally 4 daily02/11/2024ctive Metoprolol Tartrate 25 MG1/2 tab Orally Twice a day02/11/2024ctiveMultivitamin -1 tablet Orally Once a day02/11/2024ctiveTemazepam 15 MG1 capsule at bedtime as needed Orally Once a day02/11/2024ctive Social History Tobacco Use: Social History Observation Description Date Details (start date - stop date) Former Smoker NA - NA Tobacco Control (Standard) Question Answer Notes Tobacco use: Former smoker Problems Problem Type SNOMED Code ICD Code Onset Dates Problem Status W/U Status Risk Notes Problem Altered mental status (152936500) Altered mental status (R41.82) Activeconfirmed Vital Signs Heart Rate 66 /min 10/20/2024 Wpedkxfcwwg61.4 degrees Acrlzjpegr71/06/0506Wmvxrzit33 %10/20/20243864Ylmtlz66 in 10/20/20243469Dbxysz904 lbs10/20/2024BMI23.11 kg/m210/20/2024 Encounters Encounter Location Date Provider Diagnosis [facility] [place] (P[facility]ATRY) [address] [place] [address] [place] [address] 10/20/2024 Deniz Aguilera Onycholysis L60.1 and Altered [...] End Date MEDICARE [place] [address] [place] [place] [address] [id number] Daniel Peterson - patient is the [facility] [id number] [place] [id number], DuaneSelf - patient is the insured Medical (General) History Medical History History ICD Code skin cancer high blood pressurehigh cholesterolneuropathySurgical History Surgery Date(Month/Year) skin cancer removal nose 2022 left rotaor cuff 2014right rotator csqr0922fnadugld hernia 2023inguinal hernia 1973Hospitalization History Reason Date(Month/Year) see above
--- OUTSIDE RECORDS SUMMARY | 2025-08-02 09:12 | XMS_ITS | Clinical Summary ---
Author Organization [facility] Address [address] [place] [address] Phone Care Team Providers Care Manager Support Name Role Phone Cisco Nicholson DO Primary Care Provider [phone] Social History Tobacco UseTypesPacks/DayYears UsedDateSmoking Tobacco: Never AssessedSex and Gender InformationValueDate RecordedSex Assigned at BirthNot on fileLegal Sex Male03/04/2023 8:48 AM EDTGender IdentityNot on fileSexual OrientationNot on file Plan of Treatment Health MaintenanceDue DateLast DoneCommentsLipid Panel1943Yearly Adult Wlestzza1943DTaP/Tdap/Td Vaccines (1 - Tdap)1965Pneumococcal Vaccine (1 of [...] Team MemberRelationshipSpecialtyStart DateEnd Date Cisco Nicholson DO [facility] - Cjygjqd03/04/23
--- OUTSIDE RECORDS SUMMARY | 2025-08-02 09:12 | XMS_ITS | Clinical Summary ---
Author Organization [employer] Address [id number] [address] [place] [address] Care Team Providers Care Garage Mechanic Name Role Phone Cisco Nicholson DO Primary Care Provider [phone] Allergies No known active allergies Medications MedicationSigDispense [...] 1 drop 2 (two) times a day.Active kjdpwytl-sfai-JA-calcium &mins (THERAGRAN-M) 9 mg iron-400 mcg tablet [...] of Binge DrinkingNot on file09/26/2019ChildcareAnswerDate RecordedChildcareUnknown 09/26/2019EmploymentAnswerDate FjctalwlBrsqrhnfnjQhqnpuf00/10/2020Purpose - Life AnswerDate RecordedPurpose and direction in diwxWnghviv39/11/2021Sex and Gender InformationValueDate RecordedSex Assigned at BirthNot on fileLegal SexMale 09/26/2019 12:16 PM ESTGender IdentityNot on fileSexual OrientationNot on file Last Filed Vital Signs Vital SignReadingTime TakenCommentsBlood Yjfviiot131/8110/05/2019 2:40 PM EST Kzvwr666810/05/2019 2:45 PM BJMSmgyooxugmn03.2 ??C (97.2 ??F)10/05/2019 1:10 PM ESTRespiratory Fphh860610/05/2019 2:45 PM ESTOxygen Buhkdjzaub75%10/05/2019 2:45 PM ESTInhaled Oxygen Concentration--Wapfou09.8 kg (220 lb)10/05/2019 10:27 AM XRGVgapqr205 cm (6' 2.02 )10/05/2019 10:27 AM ESTBody Mass Index28.23010/05/2019 10:27 AM EST Plan of Treatment Health MaintenanceDue DateLast DoneCommentsDepression Cckiqxhxy82/06/1955Tobacco Dhciyftdl11/06/1955DTaP,Tdap and Td Vaccines (1 - Tdap)1962Zoster (Shingles) Vaccine (1 of 2)1993Fall Risk Ofphlhdsv97/06/2008RSV ( or age 60+ yrs) (1 - 1-dose 75+ series)2018Influenza Lqjrtva4404/17/2025 Medical Devices ImplantedTypeAreaManufacturerDevice IdentifierShelf Expiration DateModel / Serial / LotAnch Sut 4.75mm 2 Healicoil - [id number] - [id number] Implanted:Qty: 1 on 10/05/2019 by Heriberto [facility]kin DO [facility]: [employer] & [id number] / [id number] / [id number] Sut 4.75mm 2 Healicoil - [id number] - [id number] Implanted:Qty: 1 on 10/05/2019 by Heriberto Boykin DO at [facility]Anchor[facility]: Shoulder[employer] & [id number] / [id number] / [id number] Sut 4.75mm 2 Regenesorb - [id number] - [id number] Implanted:Qty: 1 on 10/05/2019 by Heriberto Boykin DO at [facility]: Shoulder[employer] & [id number] / [id number] / [id number] Sut 5.5mm Multifix S Ult Rpl [id number] - [id number] - [id number] Implanted:Qty: 1 on 10/05/2019 by [facility]: Shoulder[employer] & [id number] / [id number] / [id number] Sut 5.5mm Multifix S Ult Rpl [id number] - [id number] - [id number] Implanted:Qty: 1 on 10/05/2019 by Heriberto Boykin DO at [facility]: Shoulder[employer] & [id number] / [id number] / [id number] Sut 5.5mm Multifix S Ult Rpl [id number] - [id number] - [id number] Implanted:Qty: 1 on 10/05/2019 by Heriberto Boykin DO at [facility]Anchor[facility]: Shoulder[employer] & [id number] / [id number] / [id number] Insurance Care Teams Team MemberRelationshipSpecialtyStart DateEnd Date Cisco Nicholson DO [address] [place] [address] PCP - GeneralInternal Medicine10/04/19
== END 2025-08-02 09:06 | disposition home or self-care (01) ==
LOC: WC 09:05
PROVIDERS: PCP Internal Medicine; Visit Provider Physician Assistant
DX: B35.1 Tinea unguium (principal); L84 Corns and callosities; G62.89 Other specified polyneuropathies
CPT/HCPCS: 11721